=== PATIENT | female | born 1935 | race Caucasian/White ===

== ENCOUNTER 2016-10-10 16:56 | Inpatient (IN) | payer MEDICARE, MEDICAID ==
--- NOTE | 2016-10-10 17:14 | ER Document Report ---
ED General - General Stated Complaint: SHORTNESS OF BREATH Time seen by provider: 17:13 Mode of Arrival: Ambulatory Information source: Patient Notes: This is an 80-year-old female with multiple medical problems including acute respiratory failure (chronic trach), sepsis, pneumonia. The patient is brought in by EMS from home because of increased mucous secretions via the trach, dropping oxygen saturation, increased weakness, decreased responsiveness. TRAVEL OUTSIDE OF THE [place] IN LAST 30 DAYS: No - HPI Onset: Just prior to arrival Onset/Duration: Gradual Quality of pain: No pain Severity: None Pain Level: Denies Associated symptoms: Shortness of breath, Weakness. denies: Chills, Fever, Nausea Exacerbated by: Denies Relieved by: Denies Similar symptoms previously: Yes Recently seen / treated by doctor: Yes - Related Data Allergies/Adverse Reactions: alprazolam [From Xanax] Allergy (Verified 02/15/16 00:07) iodine [Iodine] Allergy (Verified 02/15/16 00:07) quetiapine fumarate [From Seroquel] Allergy (Verified 02/15/16 00:07) Past Medical History - General Information source: Patient - Social History Smoking Status: Former Smoker Cigarette use (# per day): No Chew tobacco use (# tins/day): No Smoking Education Provided: No Frequency of alcohol use: None Drug Abuse: None Lives with: Family Family History: Reviewed & Not Pertinent - Past Medical History Cardiac Medical History: Reports: Hx Congestive Heart Failure, Hx Hypercholesterolemia, Hx Hypertension, Hx Peripheral Vascular Disease Pulmonary Medical History: Reports: Hx COPD Endocrine Medical History: Reports: Hx Diabetes Mellitus Type 2 Psychiatric Medical History: Reports: Hx Dementia Past Surgical History: Reports: Hx Orthopedic Surgery - Shoulder. Right AKA. - Immunizations Hx Diphtheria, Pertussis, Tetanus Vaccination: Yes Review of Systems - Review of Systems Constitutional: denies: Chills, Fever EENT: No symptoms reported Cardiovascular: No symptoms reported Respiratory: See HPI Gastrointestinal: No symptoms reported Genitourinary: No symptoms reported Female Genitourinary: No symptoms reported Musculoskeletal: No symptoms reported Skin: No symptoms reported Hematologic/Lymphatic: No symptoms reported Neurological/Psychological: See HPI Physical Exam - Vital signs Vitals: Temp Pulse Resp BP Pulse Ox 98.1 F 104 H 16 146/65 H 92 10/10/16 17:09 10/10/16 17:09 10/10/16 17:09 10/10/16 17:09 10/10/16 17:09 Notes: Physical exam: GENERAL: 80-year-old female, alert and oriented 3, appears weak and dehydrated. HEAD: Atraumatic, normocephalic. EYES: Pupils equal round and reactive to light, extraocular movements intact, sclera anicteric, conjunctiva are normal. ENT: TMs normal, nares patent, oropharynx clear without exudates. Dry mucous membranes. NECK: Normal range of motion, supple without lymphadenopathy or JVD. LUNGS: Breath sounds clear to auscultation bilaterally and equal. No wheezes rales or rhonchi. HEART: Regular rate and rhythm without murmurs, rubs or gallops. ABDOMEN: Soft, nontender, normoactive bowel sounds. No guarding, no rebound. No masses appreciated. EXTREMITIES: Right [id number] amputation. No edema in the left lower extremity. NEUROLOGICAL: Cranial nerves II through XII grossly intact. Normal speech, normal gait. PSYCH: Normal mood, normal affect. SKIN: Warm, Dry, normal turgor, no rashes or lesions noted. Course - Vital Signs Vital signs: Temp Pulse Resp BP Pulse Ox 98.1 F 104 H 19 126/67 H 93 10/10/16 17:09 10/10/16 17:09 10/10/16 20:17 10/10/16 20:17 10/10/16 20:17 - Laboratory Result Diagrams: 10/10/16 18:54 10/10/16 18:54 Laboratory results interpreted by me: 10/10/16 10/10/16 18:54 18:54 WBC 11.1 H RDW 15.1 H Eosinophils % 6.3 H Absolute Eosinophils 0.7 H Sodium 146.4 H Chloride 108 H BUN 66 H Est GFR (Non-Af Amer) 52 L Glucose 228 H Calcium 11.2 H AST 54 H Alkaline Phosphatase 135 H Creatine Kinase < 20 L Total Protein 8.6 H - Diagnostic Test Radiology reviewed: Image reviewed, Reports reviewed - No obvious infiltrates - EKG Interpretation by Me Rate: Normal Rhythm: NSR - EKG shows normal sinus rhythm with a ventricular rate of 91, nonspecific ST-T wave changes. Discharge - Discharge Clinical Impression: acute renal failure, dehydration, dyspnea Condition: Stable Disposition: ADMITTED OBSERVATION Admitting Provider: [facility] covering Unit Admitted: Telemetry
[2016-10-10 19:03] LABS: ABSOLUTE BASOPHILS # (AUTO) 0.1 10^3/uL (0.0-0.2); ABSOLUTE EOSINOPHILS # (AUTO) 0.7 10^3/uL (0.0-0.6); ABSOLUTE LYMPHOCYTES (AUTO) 3.3 10^3/uL (0.5-4.7); ABSOLUTE MONOCYTES (AUTO) 1.2 10^3/uL (0.1-1.4); ABSOLUTE NEUT (AUTO) 5.7 10^3/uL (1.7-8.2); BASOPHILS % (AUTO) 1.3 % (0-2); EOSINOPHILS % (AUTO) 6.3 % (0-6); HEMATOCRIT 38.6 % (36.0-47.0); HEMOGLOBIN 12.5 g/dL (12.0-15.5); HGB HCT DIFFERENCE -1.1; LYMPHOCYTES % (AUTO) 29.9 % (13-45); MEAN CORPUSCULAR HGB CONC 32.2 g/dL (32.0-36.0); MEAN CORPUSCULAR VOLUME 93 fl (80-97); MONOCYTES % (AUTO) 11.1 % (3-13); RED BLOOD COUNT 4.16 10^6/uL (3.72-5.28); RED CELL DISTRIBUTION WIDTH 15.1 % (11.5-14.0); SEGMENTED NEUTROPHILS % (AUTO) 51.4 % (42-78); WHITE BLOOD COUNT 11.1 10^3/uL (4.0-10.5)
[2016-10-10 19:17] LABS: ALANINE AMINOTRANSFERASE 51 U/L (9-52); ALBUMIN 4.2 g/dL (3.5-5.0); ALKALINE PHOSPHATASE 135 U/L (38-126); ANION GAP 15 (5-19); ASPARTATE AMINO TRANSFERASE 54 U/L (14-36); BILIRUBIN,TOTAL 0.4 mg/dL (0.2-1.3); BLOOD UREA NITROGEN 66 mg/dL (7-20); CALCIUM 11.2 mg/dL (8.4-10.2); CARBON DIOXIDE 23 mmol/L (22-30); CHLORIDE 108 mmol/L (98-107); CREATININE RESULT 1.03 mg/dL (0.52-1.25); GLUCOSE 228 mg/dL (75-110); POTASSIUM 4.6 mmol/L (3.6-5.0); SODIUM 146.4 mmol/L (137-145); TOTAL PROTEIN 8.6 g/dL (6.3-8.2)
[2016-10-10 19:18] LABS: CREATINE KINASE < 20 U/L (30-135)
[2016-10-10 19:29] LABS: CREATINE KINASE MB 0.72 ng/mL (<4.55); TROPONIN I 0.012 ng/mL
[2016-10-10] MEDS ORDERED: NORMAL SALINE 1000 ML 1,000 ML IV PRN ×2 (20:15→23:49)
[2016-10-10 23:35] LABS: APPEARANCE,URINE SLIGHTLY-CLOUDY; BILIRUBIN,URINE NEGATIVE (NEGATIVE); GLUCOSE, URINE 150 mg/dL (NEGATIVE); KETONES,URINE NEGATIVE (NEGATIVE); LEUKOCYTE ESTERASE,URINE LARGE (NEGATIVE); NITRITE,URINE NEGATIVE (NEGATIVE); PROTEIN,URINE NEGATIVE (NEGATIVE); URINE SPECIFIC GRAVITY 1.012; UROBILINOGEN,URINE NEGATIVE mg/dL (<2.0)
[2016-10-11] MEDS ORDERED: IPRATROPIUM/ALBUTEROL 0.5-2.5 MG/3 ML AMPUL NEB ONE ×2 (05:08→05:36)
[2016-10-11] MEDS: IPRATROPIUM/ALBUTEROL 0.5-2.5 MG/3 ML AMPUL NEB SCH ×4 (07:59→20:27)
--- NOTE | 2016-10-11 08:23 | EKG REPORT ---
SEVERITY:- ABNORMAL ECG - SINUS RHYTHM FIRST DEGREE AV BLOCK NONSPECIFIC IVCD WITH LAD LEFT VENTRICULAR HYPERTROPHY : Confirmed by: Ethan Azar MD 11-Oct-2016 08:23:19
[2016-10-11] MEDS ORDERED: ASCORBIC ACID 500 MG TABLET PEG SCH (10:00)
[2016-10-11] MEDS ORDERED: LOSARTAN POTASSIUM 50 MG TABLET PEG SCH (10:00)
[2016-10-11] MEDS ORDERED: INSULIN DETEMIR 100 UNIT/ML 3 ML PEN SUBCUT SCH ×2 (10:00→22:00)
[2016-10-11] MEDS ORDERED: AMLODIPINE BESYLATE 10 MG TABLET PEG SCH (10:00)
[2016-10-11] MEDS ORDERED: MEMANTINE HCL 10 MG TABLET PEG SCH (10:00)
[2016-10-11 11:04] LABS: ABSOLUTE BASOPHILS # (AUTO) 0.1 10^3/uL (0.0-0.2); ABSOLUTE EOSINOPHILS # (AUTO) 0.2 10^3/uL (0.0-0.6); ABSOLUTE LYMPHOCYTES (AUTO) 1.9 10^3/uL (0.5-4.7); ABSOLUTE MONOCYTES (AUTO) 0.7 10^3/uL (0.1-1.4); ABSOLUTE NEUT (AUTO) 7.8 10^3/uL (1.7-8.2); BASOPHILS % (AUTO) 1.3 % (0-2); EOSINOPHILS % (AUTO) 2.1 % (0-6); HEMATOCRIT 36.9 % (36.0-47.0); HGB HCT DIFFERENCE -0.9; LYMPHOCYTES % (AUTO) 17.3 % (13-45); MEAN CORPUSCULAR HEMOGLOBIN 30.3 pg (27.0-33.4); MEAN CORPUSCULAR HGB CONC 32.5 g/dL (32.0-36.0); MEAN CORPUSCULAR VOLUME 93 fl (80-97); MONOCYTES % (AUTO) 6.9 % (3-13); RED BLOOD COUNT 3.95 10^6/uL (3.72-5.28); RED CELL DISTRIBUTION WIDTH 15.2 % (11.5-14.0); SEGMENTED NEUTROPHILS % (AUTO) 72.4 % (42-78); WHITE BLOOD COUNT 10.8 10^3/uL (4.0-10.5)
[2016-10-11 11:30] LABS: ANION GAP 16 (5-19); BLOOD UREA NITROGEN 58 mg/dL (7-20); CALCIUM 10.9 mg/dL (8.4-10.2); CARBON DIOXIDE 21 mmol/L (22-30); CHLORIDE 111 mmol/L (98-107); CREATININE RESULT 0.89 mg/dL (0.52-1.25); GLUCOSE 213 mg/dL (75-110); POTASSIUM 4.5 mmol/L (3.6-5.0); SODIUM 147.9 mmol/L (137-145)
--- NOTE | 2016-10-11 12:13 | Physician Advisory Note ---
Physician Advisor ProgressNote .: Pursuant to the [facility] for [facility], I have reviewed the medical record for this patient. Physician Advisor Statement: Possible documentation opportunities if attending agrees: 1.~ ? - "Acute on chronic respiratory failure, with chronic trach & acute hypoxemia down to 75% on RA on 16 AM with associated labored respirations & cyanosis of extremities" 2.~ "Acute hypernatremia, likely due to " [intravascular volume depletion? ] 3.~ "Acute Kidney Injury, likely due to [?ATN? Ac medullary necrosis? ...]" 4.~ "Acute [metab acidosis, or resp alkalosis?] due to ' As always, if concerned about any unstable VS or abnormal labs,~ please comment on them & note what doing about them, & ~ please document each day the potential clinical problems you are concerned could occur if pt not kept in hospital for tx at this time. Discussion:~ 80yo female w/ chronic co-morbidities including chronic resp failure requiring trach, dementia, chronic ___ type CHF, PVD, COPD, DM-2, Rt AKA ~- presented 1/15 PM to ED w/increased secretions via trach, decreasing O2 sats , increased weakness, decreased responsiveness, SOB. ED dr reported pt " appears weak & dehyd'd", w/dry mucosae. (+) HR 104, R19, initial O2 sat 93%, BP 126/67, WBC 11.1, Na 146.4, BUN 66, Cr 1.03, Bicarb 23, Ca 11.2, U/A w/lg LE. Attending ordered Status:~ Pt with acute resp decompensation this AM with severe hypoxemia after 1st MN of hospital care, with worsening hypernatremia, newly worsened bicarb, and requiring emergent trach change by surgeon, suctioning, O2 administration. She remains tachycardic w/RR 16-24. She is not stabilized sufficiently for safe d/ c home today. Tx in inpatient hospital setting medically reasonable & necessary to protect pt' s health, safety, & medical condition. Appropriate to change to Inpt status. Thanks for your help with documentation accuracy/specificity improvement! Alma Palacios MD [facility] Physician Advisor, Fellow of Hospital Medicine
[2016-10-11] MEDS ORDERED: IPRATROPIUM/ALBUTEROL 0.5-2.5 MG/3 ML AMPUL NEB PRN (16:01)
[2016-10-11] MEDS ORDERED: MEMANTINE HCL 10 MG TABLET PO SCH (16:15)
[2016-10-11] MEDS ORDERED: ATORVASTATIN CALCIUM 10 MG TABLET PO SCH ×2 (16:15→22:00)
[2016-10-11] MEDS ORDERED: ASCORBIC ACID 500 MG TABLET PO SCH (16:15)
[2016-10-11] MEDS ORDERED: SENNOSIDES/DOCUSATE 8.6-50 MG 1 EACH TABLET PO SCH (16:15)
--- NOTE | 2016-10-11 16:24 | PDOC H&P ---
History of Present Illness Admission Date/PCP: 10/11/16 13:00 BAKARI BECKER, History of Present Illness: BRIANA BRADY is a 80 year old female female with tracheostomy, she was transferred from home because of dysfunction of the tracheostomy tube. Family said the oxygen saturation was low on pulse oximetry, the home health nurse advised that patient needed to be transferred to the emergency room because of a low SaO2. In the emergency room when she arrived the trach was full of secretion, she was suctioned emergency room to clear off the debris in the tracheostomy tube and it was changed by the bedside this morning by the surgeon. There is also concern that she may have UTI, patient had previous prolonged hospitalization for sepsis related condition that required mechanical ventilation and a PEG tube insertion for feeding purposes, the family wants to find out if patient could now eats by mouth ,we, tget speech therapy for evaluation to advise on the safety of by mouth feeds rather than to tube feed the lab data was reviewed and nausea and acute kidney injury on the basis of the blood work, the ED physician indicated that patient needed to be admitted because of acute kidney injury, clearly the criteria for diagnosing acute kidney injury cannot be on the basis of serum creatinine may be is on the basis of urine output. I do not know, but it seems to me that she does not have acute kidney injury Past Medical History Cardiac Medical History: Reports: Hyperlipidema, Hypertension Pulmonary Medical History: Reports: Chronic Obstructive Pulmonary Disease (COPD) Endocrine Medical History: Reports: Diabetes Mellitus Type 2 Psychiatric Medical History: Reports: Dementia Past Surgical History Past Surgical History: Reports: Orthopedic Surgery - Shoulder. Right AKA. Social History Lives with: Family Smoking Status: Never Smoker Frequency of Alcohol Use: None Hx Recreational Drug Use: No Drugs: None Hx Prescription Drug Abuse: No - Advance Directive Resuscitation Status: Do Not Resuscitate Family History Family History: Reviewed & Not Pertinent Parental Family History Reviewed: Yes Children Family History Reviewed: Yes Sibling(s) Family History Reviewed.: Yes Medication/Allergy Home Medications: Amlodipine Besylate [Norvasc 10 mg Tablet] 10 mg PO DAILY 10/11/16 Ascorbic Acid [Vitamin C 500 mg Tablet] 500 mg PO DAILY 10/11/16 Atorvastatin Calcium [Lipitor 10 mg Tablet] 10 mg PO DAILY 10/11/16 Gabapentin [Neurontin 100 mg Capsule] 200 mg PO DAILY 10/11/16 Insulin Detemir [Levemir Insulin 300 Units/3 ml Insuln.pen] 5 unit SUBCUT QHS Ipratropium/Albuterol Sulfate [Duoneb 3 ml Ampul] 3 ml NEB RTQIDP PRN 10/11/16 Losartan Potassium [Cozaar 100 mg Tablet] 100 mg PO DAILY 10/11/16 Memantine HCl [Namenda 10 mg Tablet] 10 mg PO DAILY 10/11/16 Sennosides/Docusate 8.6-50 mg [Senna Plus Tablet] 1 tab PO DAILY 10/11/16 Allergies/Adverse Reactions: alprazolam [From Xanax] Allergy (Verified 02/15/16 00:07) iodine [Iodine] Allergy (Verified 02/15/16 00:07) quetiapine fumarate [From Seroquel] Allergy (Verified 02/15/16 00:07) Review of Systems Constitutional: ABSENT: as per HPI, anorexia, chills, fatigue, fever(s), headache(s), night sweats, weakness, weight gain, weight loss, other Cardiovascular: ABSENT: as per HPI, chest pain, dyspnea on exertion, edema, orthropnea, palpitations, other Respiratory: PRESENT: other - Increased secretion from tracheostomy tube Gastrointestinal: ABSENT: as per HPI, abdominal pain, bloating, coffee ground emesis, constipation, diarrhea, dysphagia, heartburn, hematemesis, hematochezia , melena, nausea, vomiting, other Neurological: ABSENT: as per HPI, abnormal gait, abnormal movements, abnormal speech, confusion, convulsions, dizziness, focal weakness, frequent falls, lack of coordination, memory loss, numbness, paresthesias, restless legs, syncope, tingling, tremor(s), vertigo, weakness, other Endocrine: ABSENT: as per HPI, cold intolerance, flushing, heat intolerance, menstrual abnormalities, polydipsia, polyphagia, polyuria, other Physical Exam Vital Signs: Temp Pulse Resp BP Pulse Ox 97.7 F 83 18 130/64 H 93 10/11/16 08:00 10/11/16 14:00 10/11/16 11:29 10/11/16 08:00 10/11/16 11:29 General appearance: PRESENT: no acute distress Eye exam: PRESENT: PERRLA Mouth exam: PRESENT: moist Neck exam: PRESENT: tracheostomy Respiratory exam: PRESENT: clear to auscultation monica Cardiovascular exam: PRESENT: +S1, +S2 GI/Abdominal exam: PRESENT: soft - There is a PEG tube in place Extremities exam: PRESENT: right AKA Neurological exam: PRESENT: alert, CN II-XII grossly intact Results Impressions: Chest X-Ray 10/10/16 17:14 IMPRESSION: 1. Right hemidiaphragm elevation. No focal consolidation or large pleural effusion evident. 2. Interval placement of a tracheostomy sheath without evidence of complication. 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
[2016-10-11] MEDS ORDERED: AMLODIPINE BESYLATE 10 MG TABLET PO SCH (17:00)
--- NOTE | 2016-10-11 17:18 | PDOC DISCHARGE SUMMARY ---
General - Admit/Disc Date/PCP Admission Date/Primary Care Provider: 10/11/16 13:00 BAKARI BECKER, Discharge Date: 10/12/16 - Discharge Diagnosis (2) Type 2 diabetes mellitus Is this a current diagnosis for this admission?: Yes (3) Hypertension Is this a current diagnosis for this admission?: Yes - Additional Information Resuscitation Status: Do Not Resuscitate Discharge Diet: Tube Feeding (Comments) Discharge Activity: Activity As Tolerated Home Medications: Amlodipine Besylate [Norvasc 10 mg Tablet] 10 mg PO DAILY 10/11/16 Ascorbic Acid [Vitamin C 500 mg Tablet] 500 mg PO DAILY 10/11/16 Atorvastatin Calcium [Lipitor 10 mg Tablet] 10 mg PO DAILY 10/11/16 Gabapentin [Neurontin 100 mg Capsule] 200 mg PO DAILY 10/11/16 Insulin Detemir [Levemir Insulin 100 units/mL] 5 unit SUBCUT QHS 10/11/16 Ipratropium/Albuterol Sulfate [Duoneb 3 ml Ampul] 3 ml NEB RTQIDP PRN 10/11/16 Losartan Potassium [Cozaar 100 mg Tablet] 100 mg PO DAILY 10/11/16 Memantine HCl [Namenda 10 mg Tablet] 10 mg PO DAILY 10/11/16 Sennosides/Docusate 8.6-50 mg [Senna Plus Tablet] 1 tab PO DAILY 10/11/16 History of Present Illness History of Present Illness: BRIANA BRADY is a 80 year old female female with tracheostomy, she was transferred from home because of dysfunction of the tracheostomy tube. Family said the oxygen saturation was low on pulse oximetry, the home health nurse advised that patient needed to be transferred to the emergency room because of a low SaO2. In the emergency room when she arrived the trach was full of secretion, she was suctioned emergency room to clear off the debris in the tracheostomy tube and it was changed by the bedside this morning by the surgeon. There is also concern that she may have UTI, patient had previous prolonged hospitalization for sepsis related condition that required mechanical ventilation and a PEG tube insertion for feeding purposes, the family wants to find out if patient could now eats by mouth ,we, tget speech therapy for evaluation to advise on the safety of by mouth feeds rather than to tube feed the lab data was reviewed and nausea and acute kidney injury on the basis of the blood work, the ED physician indicated that patient needed to be admitted because of acute kidney injury, clearly the criteria for diagnosing acute kidney injury cannot be on the basis of serum creatinine may be is on the basis of urine output. I do not know, but it seems to me that she does not have acute kidney injury Hospital Course Hospital Course: Patient was admitted because of dysfunction of tracheostomy, she was seen by the surgeon and this was changed, she was also seen by the nutrition and speech Physical Exam Vital Signs: Temp Pulse Resp BP Pulse Ox 97.4 F 80 18 118/50 L 100 10/11/16 16:00 10/11/16 16:00 10/11/16 16:00 10/11/16 16:00 10/11/16 16:00 General appearance: PRESENT: no acute distress Eye exam: PRESENT: PERRLA Respiratory exam: PRESENT: clear to auscultation monica Cardiovascular exam: PRESENT: +S1, +S2 Results Impressions: Chest X-Ray 10/10/16 17:14 IMPRESSION: 1. Right hemidiaphragm elevation. No focal consolidation or large pleural effusion evident. 2. Interval placement of a tracheostomy sheath without evidence of complication.
[2016-10-11 17:59] LABS: HEMATOCRIT 35.9 % (36.0-47.0); HEMOGLOBIN 11.6 g/dL (12.0-15.5); HGB HCT DIFFERENCE -1.1; MEAN CORPUSCULAR HEMOGLOBIN 30.1 pg (27.0-33.4); MEAN CORPUSCULAR HGB CONC 32.3 g/dL (32.0-36.0); MEAN CORPUSCULAR VOLUME 93 fl (80-97); RED BLOOD COUNT 3.86 10^6/uL (3.72-5.28); RED CELL DISTRIBUTION WIDTH 15.1 % (11.5-14.0); WHITE BLOOD COUNT 11.2 10^3/uL (4.0-10.5)
[2016-10-11] MEDS ORDERED: ENOXAPARIN SODIUM INJ 40 MG/0.4 ML DISP.SYRIN SUBCUT ONE (18:00)
[2016-10-11 18:04] LABS: PARTIAL THROMBOPLASTIN TIME 25.6 SEC (23.5-35.8); PROTHROMBIN TIME 14.1 SEC (11.4-15.4)
[2016-10-11 18:13] LABS: CREATININE RESULT 0.86 mg/dL (0.52-1.25)
[2016-10-11] MEDS: GABAPENTIN 100 MG CAPSULE PO SCH (18:26)
[2016-10-12] MEDS ORDERED: ENOXAPARIN SODIUM INJ 40 MG/0.4 ML DISP.SYRIN SUBCUT SCH (08:00)
[2016-10-12] MEDS: IPRATROPIUM/ALBUTEROL 0.5-2.5 MG/3 ML AMPUL NEB SCH ×4 (08:12→20:34)
[2016-10-12] MEDS ORDERED: ASCORBIC ACID 500 MG TABLET PO SCH (10:00)
[2016-10-12] MEDS ORDERED: AMLODIPINE BESYLATE 10 MG TABLET PO SCH (10:00)
[2016-10-12] MEDS ORDERED: SENNOSIDES/DOCUSATE 8.6-50 MG 1 EACH TABLET PO SCH (10:00)
[2016-10-12] MEDS ORDERED: LOSARTAN POTASSIUM 50 MG TABLET PO SCH (10:00)
[2016-10-12] MEDS ORDERED: MEMANTINE HCL 10 MG TABLET PO SCH (10:00)
[2016-10-12 16:13] VITALS: BP 146/74
[2016-10-12] MEDS: GABAPENTIN 100 MG CAPSULE PO SCH (17:41)
== END 2016-10-12 21:10 | disposition home health service (06) | DRG 206 ==
LOC: ER 16:56 → EH 21:08 → 4S 10-11 01:06 → OBSVTOIN 10-11 13:00
PROVIDERS: ADMIT Internal Medicine; ATTEND Internal Medicine
PROC: 0B21XFZ Change Tracheostomy Device in Trachea, External Approach (ICD-10-PCS; principal; 2016-10-11)
DX: J95.03 Malfunction of tracheostomy stoma (principal); E86.0 Dehydration; E11.42 Type 2 diabetes mellitus with diabetic polyneuropathy; E11.51 Type 2 diabetes mellitus with diabetic peripheral angiopathy without gangrene; E78.5 Hyperlipidemia, unspecified; I11.0 Hypertensive heart disease with heart failure; I50.9 Heart failure, unspecified; F03.90 Unspecified dementia, unspecified severity, without behavioral disturbance, psychotic disturbance, mood disturbance, and anxiety; J44.9 Chronic obstructive pulmonary disease, unspecified; Z66 Do not resuscitate; Y84.8 Other medical procedures as the cause of abnormal reaction of the patient, or of later complication, without mention of misadventure at the time of the procedure; Z79.899 Other long term (current) drug therapy; Z87.891 Personal history of nicotine dependence; Z89.611 Acquired absence of right leg above knee; Z93.1 Gastrostomy status; Z79.4 Long term (current) use of insulin; Z88.8 Allergy status to other drugs, medicaments and biological substances; Z99.81 Dependence on supplemental oxygen
CPT/HCPCS: 36415; 51702; 71010; 80048; 80053; 81001; 82550; 82553; 82565; 82962; 84484; 85025; 85027; 85610; 85730; 93005; 93010; 94640; 99285; G0378; G8996-GN; G8997-GN; G8998-GN; J1650; J1815; J7030; J7620

== ENCOUNTER 2016-12-09 10:06 | Inpatient (IN) | payer MEDICARE, MEDICAID ==
--- NOTE | 2016-12-09 10:24 | ER Document Report ---
ED Respiratory Problem - General Chief Complaint: Shortness Of Breath Stated Complaint: RESPIRATORY PROBLEM Notes: The patient is an 81-year-old female, past medical history COPD, respiratory failure on 5 L humidified air through trach, dementia, presents with increasing sputum out of her trach, shortness of breath and hypoxia down to 74% on her usual oxygen requirements. She has a PEG tube, but denies any recent aspiration. Denies chest pain, leg swelling, nausea, vomiting, fevers or back pain. TRAVEL OUTSIDE OF THE [place] IN LAST 30 DAYS: No - Related Data Allergies/Adverse Reactions: alprazolam [From Xanax] Allergy (Verified 02/15/16 00:07) iodine [Iodine] Allergy (Verified 02/15/16 00:07) quetiapine fumarate [From Seroquel] Allergy (Verified 02/15/16 00:07) Past Medical History - General Information source: Relative, Emergency Med Personnel - Social History Smoking Status: Unknown if Ever Smoked Family History: Reviewed & Not Pertinent - Past Medical History Cardiac Medical History: Reports: Hx Congestive Heart Failure, Hx Hypercholesterolemia, Hx Hypertension, Hx Peripheral Vascular Disease Pulmonary Medical History: Reports: Hx COPD Endocrine Medical History: Reports: Hx Diabetes Mellitus Type 2 Psychiatric Medical History: Reports: Hx Dementia Past Surgical History: Reports: Hx Orthopedic Surgery - Shoulder. Right AKA. - Immunizations Hx Diphtheria, Pertussis, Tetanus Vaccination: Yes Review of Systems - Review of Systems Notes: REVIEW OF SYSTEMS: CONSTITUTIONAL: -fevers, -chills EENT: -eye pain, -difficulty swallowing, -nasal congestion CARDIOVASCULAR:-chest pain, -syncope. RESPIRATORY: +cough, +SOB GASTROINTESTINAL: -abdominal pain, - nausea, -vomiting, -diarrhea GENITOURINARY: -dysuria, -hematuria MUSCULOSKELETAL: -back pain, -neck pain SKIN: -rash or skin lesions. HEMATOLOGIC: -easy bruising or bleeding. LYMPHATIC: -swollen, enlarged glands. NEUROLOGICAL: -altered mental status or loss of consciousness, -headache, - neurologic symptoms PSYCHIATRIC: -anxiety, -depression. ALL OTHER SYSTEMS REVIEWED AND NEGATIVE. Physical Exam - Vital signs Vitals: Resp 24 H 12/09/16 10:06 - Notes Notes: PHYSICAL EXAMINATION: GENERAL: Well-appearing, well-nourished and in no acute distress. HEAD: Atraumatic, normocephalic. EYES: Pupils equal round and reactive to light, extraocular movements intact, sclera anicteric, conjunctiva are normal. ENT: nares patent, oropharynx clear without exudates. Moist mucous membranes. NECK: Normal range of motion, supple without lymphadenopathy LUNGS: Trach in place with green sputum, coarse bilateral breath sounds, crackles in right lower lobe, no respiratory distress. HEART: Tachycardic without murmurs ABDOMEN: G-tube in place, Soft, nontender, normoactive bowel sounds. No guarding, no rebound. No masses appreciated. EXTREMITIES: Normal range of motion, no pitting or edema. No cyanosis. NEUROLOGICAL: Cranial nerves grossly intact. Normal sensory and motor. SKIN: Warm, Dry, normal turgor, no rashes or lesions noted. Course - Re-evaluation Re-evalutation: 12/09/16 13:51 on arrival, patient is satting 86% on 100% oxygen through trach collar. Has green sputum and suctioned with improvement of her oxygenation to 92%. With the coarse breath sounds and wheezing, DuoNeb and Solu-Medrol started with increased wheezing. Chest x-ray does not show pneumonia, but with tachycardia, tachypnea and leukocytosis, will begin CAP antibiotics. She does have an elevated lactate to 3.0, but does not require 30 mL/kg because her blood pressure is normal and lactate is less than 4. Spoke to Dr. Christensen and he has accepted patient as Inpatient to [facility]. - Vital Signs Vital signs: Temp Pulse Resp BP Pulse Ox 98.4 F 107 H 24 H 123/72 87 L 12/09/16 10:10 12/09/16 10:10 12/09/16 10:10 12/09/16 10:10 12/09/16 10:10 - Laboratory Result Diagrams: 12/09/16 10:25 12/09/16 10:25 Laboratory results interpreted by me: 12/09/16 12/09/16 12/09/16 10:25 10:25 10:25 WBC 12.4 H RDW 14.7 H Absolute Neutrophils 8.3 H BUN 60 H Glucose 229 H Lactic Acid Calcium 11.7 H NT-Pro-B Natriuret Pep 733 H 12/09/16 10:25 WBC RDW Absolute Neutrophils BUN Glucose Lactic Acid 3.0 H Calcium NT-Pro-B Natriuret Pep - Diagnostic Test Radiology reviewed: Image reviewed, Reports reviewed Radiology results interpreted by me: CXR: NAD Critical Care Note - Critical Care Note Total time excluding time spent on procedures (mins): 35 Discharge - Discharge Clinical Impression: Hypoxia, COPD exacerbation Sepsis Qualifiers: Sepsis type: sepsis due to unspecified organism Qualified Code(s): A41.9 - Sepsis, unspecified organism Condition: Stable Disposition: ADMITTED INPATIENT Admitting Provider: [facility] Unit Admitted: [facility]
[2016-12-09 10:45] LABS: ABSOLUTE BASOPHILS # (AUTO) 0.1 10^3/uL (0.0-0.2); ABSOLUTE EOSINOPHILS # (AUTO) 0.4 10^3/uL (0.0-0.6); ABSOLUTE LYMPHOCYTES (AUTO) 2.8 10^3/uL (0.5-4.7); ABSOLUTE MONOCYTES (AUTO) 0.8 10^3/uL (0.1-1.4); ABSOLUTE NEUT (AUTO) 8.3 10^3/uL (1.7-8.2); BASOPHILS % (AUTO) 0.7 % (0-2); EOSINOPHILS % (AUTO) 3.3 % (0-6); HEMATOCRIT 42.1 % (36.0-47.0); HEMOGLOBIN 13.6 g/dL (12.0-15.5); HGB HCT DIFFERENCE -1.3; LYMPHOCYTES % (AUTO) 22.3 % (13-45); MEAN CORPUSCULAR HEMOGLOBIN 28.6 pg (27.0-33.4); MEAN CORPUSCULAR HGB CONC 32.3 g/dL (32.0-36.0); MEAN CORPUSCULAR VOLUME 89 fl (80-97); MONOCYTES % (AUTO) 6.7 % (3-13); RED BLOOD COUNT 4.74 10^6/uL (3.72-5.28); RED CELL DISTRIBUTION WIDTH 14.7 % (11.5-14.0); WHITE BLOOD COUNT 12.4 10^3/uL (4.0-10.5)
[2016-12-09] MEDS ORDERED: IPRATROPIUM/ALBUTEROL 0.5-2.5 MG/3 ML AMPUL NEB ONE (10:45)
[2016-12-09] MEDS ORDERED: METHYLPREDNISOLONE INJ 125 MG/2 ML SDV IV ONE (10:45)
[2016-12-09 11:04] LABS: ANION GAP 15 (5-19); BLOOD UREA NITROGEN 60 mg/dL (7-20); CALCIUM 11.7 mg/dL (8.4-10.2); CARBON DIOXIDE 22 mmol/L (22-30); CHLORIDE 107 mmol/L (98-107); CREATINE KINASE 31 U/L (30-135); CREATININE RESULT 0.86 mg/dL (0.52-1.25); GLUCOSE 229 mg/dL (75-110); POTASSIUM 4.9 mmol/L (3.6-5.0); SODIUM 143.8 mmol/L (137-145)
[2016-12-09] MEDS ORDERED: CEFTRIAXONE INJ 1000 MG VIAL IV ONE (11:07)
[2016-12-09] MEDS ORDERED: AZITHROMYCIN INJ 500 MG VIAL IV ONE (11:07)
[2016-12-09] MEDS ORDERED: NORMAL SALINE 1000 ML 1,000 ML IV ONE (11:08)
[2016-12-09 11:23] LABS: TROPONIN I < 0.012 ng/mL
--- NOTE | 2016-12-09 11:25 | EKG REPORT ---
SEVERITY:- ABNORMAL ECG - SINUS RHYTHM NONSPECIFIC IVCD WITH LAD LVH WITH SECONDARY REPOLARIZATION ABNORMALITY ANTERIOR Q WAVES, POSSIBLY DUE TO LVH : Confirmed by: Mirella Marrero 09-Dec-2016 11:24:58
[2016-12-09] MEDS ORDERED: ONDANSETRON HCL INJ/PF 4 MG/2 ML SDV IV ONE (14:41)
[2016-12-09] MEDS ORDERED: (PENDING PHARMACY ID) (Multivitamin [Multivitamins] 1 CAP) PEG SCH (19:15)
[2016-12-09] MEDS ORDERED: (PENDING PHARMACY ID) (Sennosides [Senna] 17.2 MG) PEG SCH (19:15)
[2016-12-09] MEDS ORDERED: GLUCAGON,HUMAN RECOMB 1 MG INJ IM PRN (19:16)
[2016-12-09] MEDS ORDERED: DEXTROSE 40% GEL 15 GM TUBE PO PRN ×2 (19:16)
[2016-12-09] MEDS ORDERED: DEXTROSE 50%-WATER 25 GM/50 ML DISP.SYRIN IV PRN ×2 (19:16)
[2016-12-09] MEDS ORDERED: IPRATROPIUM/ALBUTEROL 0.5-2.5 MG/3 ML AMPUL NEB PRN (19:17)
[2016-12-09] MEDS ORDERED: AMLODIPINE BESYLATE 10 MG TABLET PEG ONE (20:00)
[2016-12-09] MEDS ORDERED: ASCORBIC ACID 500 MG TABLET PEG ONE (20:00)
[2016-12-09 20:11] LABS: HEMATOCRIT 38.3 % (36.0-47.0); HEMOGLOBIN 12.6 g/dL (12.0-15.5); HGB HCT DIFFERENCE -0.5; MEAN CORPUSCULAR HEMOGLOBIN 29.1 pg (27.0-33.4); MEAN CORPUSCULAR HGB CONC 32.9 g/dL (32.0-36.0); MEAN CORPUSCULAR VOLUME 89 fl (80-97); PROTHROMBIN TIME 13.8 SEC (11.4-15.4); RED BLOOD COUNT 4.32 10^6/uL (3.72-5.28); RED CELL DISTRIBUTION WIDTH 14.8 % (11.5-14.0); WHITE BLOOD COUNT 9.9 10^3/uL (4.0-10.5)
[2016-12-09 20:12] LABS: PARTIAL THROMBOPLASTIN TIME 27.9 SEC (23.5-35.8)
[2016-12-09] MEDS: IPRATROPIUM/ALBUTEROL 0.5-2.5 MG/3 ML AMPUL NEB SCH (20:31)
[2016-12-09] MEDS ORDERED: MULTIVITAMIN TABLET PO ONE (20:45)
[2016-12-09] MEDS ORDERED: INSULIN DETEMIR 100 UNIT/ML 3 ML PEN SUBCUT ONE (20:45)
[2016-12-09] MEDS ORDERED: LOSARTAN POTASSIUM 50 MG TABLET PEG ONE (20:45)
[2016-12-09] MEDS ORDERED: LEVOFLOXACIN 750 MG/D5W RTU 750 MG/150 ML RTUPB IV ONE (22:53)
[2016-12-09] MEDS: INSULIN LISPRO 100 UNIT/ML 3 ML VIAL SUBCUT PRN (23:02)
[2016-12-09] MEDS: CEFTRIAXONE 1 GM/D5W RTU 1 GM/50 ML RTUPB IV SCH (23:04)
[2016-12-09] MEDS: GABAPENTIN 100 MG CAPSULE PEG SCH (23:05)
[2016-12-09] MEDS: LEVOFLOXACIN 750 MG/D5W RTU 750 MG/150 ML RTUPB IV SCH (23:05)
[2016-12-09] MEDS: ATORVASTATIN CALCIUM 10 MG TABLET PEG SCH (23:05)
[2016-12-10] MEDS: IPRATROPIUM/ALBUTEROL 0.5-2.5 MG/3 ML AMPUL NEB SCH ×3 (08:57→20:57)
[2016-12-10] MEDS: MULTIVITAMIN TABLET PO SCH (10:37)
[2016-12-10] MEDS: MEMANTINE HCL 10 MG TABLET PEG SCH (10:40)
[2016-12-10] MEDS: LOSARTAN POTASSIUM 50 MG TABLET PEG SCH (10:40)
[2016-12-10] MEDS: ENOXAPARIN SODIUM INJ 40 MG/0.4 ML DISP.SYRIN SUBCUT SCH (10:42)
[2016-12-10] MEDS: INSULIN DETEMIR 100 UNIT/ML 3 ML PEN SUBCUT SCH (10:44)
[2016-12-10] MEDS: ASCORBIC ACID 500 MG TABLET PEG SCH (10:45)
[2016-12-10] MEDS: AMLODIPINE BESYLATE 10 MG TABLET PEG SCH (10:46)
[2016-12-10] MEDS: INSULIN LISPRO 100 UNIT/ML 3 ML VIAL SUBCUT PRN ×2 (17:47→22:08)
--- NOTE | 2016-12-10 18:19 | PDOC H&P ---
History of Present Illness Admission Date/PCP: 12/09/16 17:42 BAKARI BECKER MD History of Present Illness: BRIANA BRADY is a 81 year old female, she has multiple comorbid conditions she had episode of shortness of breath the home health nurse called the office to advise us that the oxygen saturation was in the low 70s and she was concerned because despite administering oxygen the pulse oximetry remains low, she called rescue squad and she was transferred to the emergency room in the emergency room when she arrived she was evaluated, the oxygen saturation was 86% on FiO2 100% through trach collar the trach collar was suctioned and yellowish to greenish secretion was suctioned out of the trach collar, she was also said to be wheezing the emergency room and she was giving Solu-Medrol and bronchodilators DuoNeb, chest x-ray that was done did not show any acute infiltrates, the hemogram showed leukocytosis and his serum lactate was 3, the ED physician thought she had pneumonia though chest x-ray was negative for any infiltrates,He felt is probably EARLY pneumonia and is not apparent on chest x- ray yet. She has multiple comorbid conditions including PAD status post amputation of the the right leg, right AKA Past Medical History Cardiac Medical History: Reports: Hyperlipidema, Hypertension, Peripheral Vascular Disease Pulmonary Medical History: Reports: Chronic Obstructive Pulmonary Disease (COPD) Endocrine Medical History: Reports: Diabetes Mellitus Type 2 Psychiatric Medical History: Reports: Dementia Past Surgical History Past Surgical History: Reports: Orthopedic Surgery - Shoulder. Right AKA. Social History Smoking Status: Never Smoker Frequency of Alcohol Use: None Hx Recreational Drug Use: No Hx Prescription Drug Abuse: No - Advance Directive Resuscitation Status: Do Not Resuscitate Family History Family History: Reviewed & Not Pertinent Parental Family History Reviewed: Yes Children Family History Reviewed: Yes Sibling(s) Family History Reviewed.: Yes Medication/Allergy Home Medications: Amlodipine Besylate [Norvasc 10 mg Tablet] 10 mg PEG DAILY 12/09/16 Ascorbic Acid [Vitamin C 500 mg Tablet] 500 mg PEG DAILY 12/09/16 Atorvastatin Calcium [Lipitor 10 mg Tablet] 10 mg PEG DAILY 12/09/16 Gabapentin [Neurontin 100 mg Capsule] 200 mg PEG DAILY 12/09/16 Insulin Aspart [Novolog Flexpen] 0 units SQ .PERSLIDINGSCALE 12/09/16 Insulin Detemir [Levemir Insulin 100 units/mL] 5 units SQ DAILY 12/09/16 Ipratropium/Albuterol Sulfate [Duoneb 3 ml Ampul] 3 ml NEB RTTID 12/09/16 Losartan Potassium [Cozaar 100 mg Tablet] 100 mg PEG DAILY 12/09/16 Memantine HCl [Namenda 10 mg Tablet] 10 mg PEG DAILY 12/09/16 Multivitamin [Multivitamins] 1 cap PEG DAILY 12/09/16 Sennosides [Senna] 17.2 mg PEG DAILY 12/09/16 Allergies/Adverse Reactions: alprazolam [From Xanax] Allergy (Verified 02/15/16 00:07) iodine [Iodine] Allergy (Verified 02/15/16 00:07) quetiapine fumarate [From Seroquel] Allergy (Verified 02/15/16 00:07) Review of Systems Cardiovascular: ABSENT: as per HPI, chest pain, edema, palpitations, other Respiratory: PRESENT: cough, dyspnea, sputum Gastrointestinal: ABSENT: as per HPI, abdominal pain, bloating, coffee ground emesis, constipation, diarrhea, dysphagia, heartburn, hematemesis, hematochezia , melena, nausea, vomiting, other Neurological: ABSENT: as per HPI, abnormal gait, abnormal movements, abnormal speech, confusion, convulsions, dizziness, focal weakness, frequent falls, lack of coordination, memory loss, numbness, paresthesias, restless legs, syncope, tingling, tremor(s), vertigo, weakness, other Physical Exam Vital Signs: Temp Pulse Resp BP Pulse Ox 97.9 F 108 H 19 130/78 H 98 12/10/16 15:23 12/10/16 15:23 12/10/16 15:23 12/10/16 15:23 12/10/16 16:00 Intake & Output 12/09/16 12/10/16 12/11/16 06:59 06:59 06:59 Intake Total 1179 923 Balance 1179 923 General appearance: PRESENT: mild distress Eye exam: PRESENT: PERRLA Mouth exam: PRESENT: moist Neck exam: PRESENT: full ROM Respiratory exam: PRESENT: rhonchi Cardiovascular exam: PRESENT: +S1, +S2 GI/Abdominal exam: PRESENT: other - There is a PEG tube Extremities exam: PRESENT: right AKA Results Laboratory Results: 12/09/16 19:43 12/09/16 19:43 12/09/16 12/09/16 19:43 19:43 WBC 9.9 RBC 4.32 Hgb 12.6 Hct 38.3 MCV 89 MCH 29.1 MCHC 32.9 RDW 14.8 H Plt Count 349 Creatinine 0.80 Est GFR ( Amer) > 60 Est GFR (Non-Af Amer) > 60 Impressions: Chest X-Ray 12/09/16 10:23 IMPRESSION: No significant interval change. No acute findings. Other findings as noted above Assessment & Plan - Diagnosis (1) Community acquired pneumonia Is this a current diagnosis for this admission?: YesPlan: She probably have pneumonia though chest x-ray is negative for infiltrate or consolidation but the constellation of fever, hypoxemia and leukocytosis and colored secretions from trach collar suggest infection etiology probably pneumonia she will be empirically treated for community acquired pneumonia (2) Hypoxemia Is this a current diagnosis for this admission?: Yes
[2016-12-10] MEDS: LEVOFLOXACIN 750 MG/D5W RTU 750 MG/150 ML RTUPB IV SCH (20:34)
[2016-12-10] MEDS: CEFTRIAXONE 1 GM/D5W RTU 1 GM/50 ML RTUPB IV SCH (22:06)
[2016-12-10] MEDS: ATORVASTATIN CALCIUM 10 MG TABLET PEG SCH (22:07)
[2016-12-10] MEDS: GABAPENTIN 100 MG CAPSULE PEG SCH (22:08)
[2016-12-11] MEDS: IPRATROPIUM/ALBUTEROL 0.5-2.5 MG/3 ML AMPUL NEB SCH ×3 (09:00→20:04)
[2016-12-11] MEDS: ASCORBIC ACID 500 MG TABLET PEG SCH (11:46)
[2016-12-11] MEDS: MULTIVITAMIN TABLET PO SCH (11:46)
[2016-12-11] MEDS: MEMANTINE HCL 10 MG TABLET PEG SCH (11:47)
[2016-12-11] MEDS: AMLODIPINE BESYLATE 10 MG TABLET PEG SCH (11:47)
[2016-12-11] MEDS: SENNOSIDES/DOCUSATE 8.6-50 MG 1 EACH TABLET PEG SCH (11:47)
[2016-12-11] MEDS: LOSARTAN POTASSIUM 50 MG TABLET PEG SCH (11:48)
[2016-12-11] MEDS: ENOXAPARIN SODIUM INJ 40 MG/0.4 ML DISP.SYRIN SUBCUT SCH (11:49)
[2016-12-11] MEDS: INSULIN DETEMIR 100 UNIT/ML 3 ML PEN SUBCUT SCH (11:51)
[2016-12-11] MEDS ORDERED: ONDANSETRON HCL INJ/PF 4 MG/2 ML SDV ONE (13:42)
[2016-12-11] MEDS ORDERED: ONDANSETRON HCL INJ/PF 4 MG/2 ML SDV IV PRN (14:06)
[2016-12-11] MEDS ORDERED: ACETAMINOPHEN 325 MG TABLET PEG PRN (14:06)
[2016-12-11] MEDS ORDERED: GABAPENTIN 100 MG CAPSULE PEG ONE ×2 (15:00→18:00)
[2016-12-11] MEDS ORDERED: ATORVASTATIN CALCIUM 10 MG TABLET PEG ONE ×2 (15:00→18:00)
--- NOTE | 2016-12-11 17:15 | PDOC PROGRESS REPORT ---
Subjective Progress Note for:: 12/10/16 Subjective:: She was seen by the bedside, she has pustules on the dorsum of the right . She was admitted for pneumonia the white cell count is normalized on the IV antibiotic, the chest x-ray is negative for acute infiltrate. I am not totally convinced she has pneumonia, she probably did secretions that clogged the tracheostomy tube leading to hypoxemia and the secretion was infected, she probably have infected tracheostomy tube Physical Exam Vital Signs: Temp Pulse Resp BP Pulse Ox 97.9 F 108 H 19 130/78 H 98 12/10/16 15:23 12/10/16 15:23 12/10/16 15:23 12/10/16 15:23 12/10/16 16:00 Intake & Output 12/09/16 12/10/16 12/11/16 06:59 06:59 06:59 Intake Total 1179 923 Balance 1179 923 General appearance: PRESENT: no acute distress Eye exam: PRESENT: PERRLA Respiratory exam: PRESENT: clear to auscultation monica Cardiovascular exam: PRESENT: +S1, +S2 GI/Abdominal exam: PRESENT: soft Extremities exam: PRESENT: right AKA Neurological exam: PRESENT: alert Results Laboratory Results: 12/09/16 19:43 12/09/16 19:43 12/09/16 12/09/16 19:43 19:43 WBC 9.9 RBC 4.32 Hgb 12.6 Hct 38.3 MCV 89 MCH 29.1 MCHC 32.9 RDW 14.8 H Plt Count 349 Creatinine 0.80 Est GFR ( Amer) > 60 Est GFR (Non-Af Amer) > 60 Impressions: Chest X-Ray 12/09/16 10:23 IMPRESSION: No significant interval change. No acute findings. Other findings as noted above Assessment & Plan - Diagnosis (1) Community acquired pneumonia Is this a current diagnosis for this admission?: Yes (2) Hypoxemia Is this a current diagnosis for this admission?: Yes (3) Type 2 diabetes mellitus Qualifiers: Diabetes mellitus complication status: with neurologic complications Diabetes mellitus complication detail: with polyneuropathy Diabetes mellitus intermission coordinator insulin use: with intermission coordinator use Qualified Code(s): E11.42 - Type 2 diabetes mellitus with diabetic polyneuropathy; Z79.4 - penitentiary (current) use of insulin Is this a current diagnosis for this admission?: Yes (4) Dysphagia, pharyngeal phase Is this a current diagnosis for this admission?: Yes
--- NOTE | 2016-12-11 17:28 | PDOC DISCHARGE SUMMARY ---
General - Admit/Disc Date/PCP Admission Date/Primary Care Provider: 12/09/16 17:42 BAKARI BECKER MD Discharge Date: 12/11/16 - Discharge Diagnosis (1) Community acquired pneumonia Is this a current diagnosis for this admission?: Yes (2) Hypoxemia Is this a current diagnosis for this admission?: Yes (3) Type 2 diabetes mellitus Is this a current diagnosis for this admission?: Yes (4) Dysphagia, pharyngeal phase Is this a current diagnosis for this admission?: Yes - Additional Information Resuscitation Status: Do Not Resuscitate Home Medications: Amlodipine Besylate [Norvasc 10 mg Tablet] 10 mg PEG DAILY 12/09/16 Ascorbic Acid [Vitamin C 500 mg Tablet] 500 mg PEG DAILY 12/09/16 Atorvastatin Calcium [Lipitor 10 mg Tablet] 10 mg PEG DAILY 12/09/16 Gabapentin [Neurontin 100 mg Capsule] 200 mg PEG DAILY 12/09/16 Insulin Aspart [Novolog Flexpen] 0 units SQ .PERSLIDINGSCALE 12/09/16 Insulin Detemir [Levemir Insulin 100 units/mL] 5 units SQ DAILY 12/09/16 Ipratropium/Albuterol Sulfate [Duoneb 3 ml Ampul] 3 ml NEB RTTID 12/09/16 Losartan Potassium [Cozaar 100 mg Tablet] 100 mg PEG DAILY 12/09/16 Memantine HCl [Namenda 10 mg Tablet] 10 mg PEG DAILY 12/09/16 Multivitamin [Multivitamins] 1 cap PEG DAILY 12/09/16 Sennosides [Senna] 17.2 mg PEG DAILY 12/09/16 Levofloxacin [Levaquin 750 mg Tablet] 750 mg PO DAILY #5 tablet 12/11/16 History of Present Illness History of Present Illness: BRIANA BRADY is a 81 year old female, she has multiple comorbid conditions she had episode of shortness of breath the home health nurse called the office to advise us that the oxygen saturation was in the low 70s and she was concerned because despite administering oxygen the pulse oximetry remains low, she called rescue squad and she was transferred to the emergency room in the emergency room when she arrived she was evaluated, the oxygen saturation was 86% on FiO2 100% through trach collar the trach collar was suctioned and yellowish to greenish secretion was suctioned out of the trach collar, she was also said to be wheezing the emergency room and she was giving Solu-Medrol and bronchodilators DuoNeb, chest x-ray that was done did not show any acute infiltrates, the hemogram showed leukocytosis and his serum lactate was 3, the ED physician thought she had pneumonia though chest x-ray was negative for any infiltrates,He felt is probably EARLY pneumonia and is not apparent on chest x- ray yet. She has multiple comorbid conditions including PAD status post amputation of the the right leg, right AKA Hospital Course Hospital Course: Patient was admitted because of concern for pneumonia, she presented with hypoxemia and leukocytosis, the chest x-ray that was done in the emergency room was negative for any acute infiltrate to suggest pneumonia. She has a trach in place on the secretion from the trach that was suctioned looks infected, it is most likely that this secretion clogged the trach and that is what led to the hypoxemia and the leukocytosis is probably from the infection of the tracheal secretion. She was empirically treated with intravenous Levaquin and azithromycin with very good result. Patient is back to baseline and she is getting agitated normally she is less agitated when she is in familiar surroundings. The plan is to discharge her home to continue p.o. medication for few more days. We will arrange for outpatient speech evaluation to determine if she can eat orally presently she has PEG tube in place. Physical Exam Vital Signs: Temp Pulse Resp BP Pulse Ox 97.9 F 103 H 18 131/65 H 96 12/11/16 11:58 12/11/16 14:40 12/11/16 14:40 12/11/16 11:58 12/11/16 11:58 Intake & Output 12/10/16 12/11/16 12/12/16 06:59 06:59 06:59 Intake Total 1179 3563 570 Balance 1179 3563 570 Weight 66.6 kg General appearance: PRESENT: no acute distress Eye exam: PRESENT: PERRLA Neck exam: PRESENT: tracheostomy Respiratory exam: PRESENT: clear to auscultation monica Cardiovascular exam: PRESENT: +S1, +S2 GI/Abdominal exam: PRESENT: soft Neurological exam: PRESENT: alert Results Laboratory Results: 12/09/16 19:43 12/09/16 19:43 Impressions: Chest X-Ray 12/09/16 10:23 IMPRESSION: No significant interval change. No acute findings. Other findings as noted above
[2016-12-11] MEDS: LEVOFLOXACIN 750 MG/D5W RTU 750 MG/150 ML RTUPB IV SCH (19:41)
[2016-12-11] MEDS: CEFTRIAXONE 1 GM/D5W RTU 1 GM/50 ML RTUPB IV SCH (21:53)
[2016-12-11] MEDS: INSULIN LISPRO 100 UNIT/ML 3 ML VIAL SUBCUT PRN (21:54)
[2016-12-12] MEDS: IPRATROPIUM/ALBUTEROL 0.5-2.5 MG/3 ML AMPUL NEB SCH (08:37)
[2016-12-12 09:16] VITALS: BP 123/55
[2016-12-12] MEDS: ENOXAPARIN SODIUM INJ 40 MG/0.4 ML DISP.SYRIN SUBCUT SCH (09:21)
[2016-12-12] MEDS: MEMANTINE HCL 10 MG TABLET PEG SCH (09:42)
[2016-12-12] MEDS: LOSARTAN POTASSIUM 50 MG TABLET PEG SCH (09:42)
[2016-12-12] MEDS: MULTIVITAMIN TABLET PO SCH (09:43)
[2016-12-12] MEDS: AMLODIPINE BESYLATE 10 MG TABLET PEG SCH (09:43)
[2016-12-12] MEDS: ASCORBIC ACID 500 MG TABLET PEG SCH (09:43)
[2016-12-12] MEDS: INSULIN DETEMIR 100 UNIT/ML 3 ML PEN SUBCUT SCH (09:44)
[2016-12-12] MEDS: SENNOSIDES/DOCUSATE 8.6-50 MG 1 EACH TABLET PEG SCH (09:45)
[2016-12-12] MEDS ORDERED: GABAPENTIN 100 MG CAPSULE PEG SCH (10:00)
[2016-12-12] MEDS ORDERED: ATORVASTATIN CALCIUM 10 MG TABLET PEG SCH (10:00)
== END 2016-12-12 10:49 | disposition home health service (06) | DRG 194 ==
LOC: ER 10:06 → EH 14:01 → UNDOADMIN 14:01 → 3S 16:42 → EH 16:42 → 3S 17:42
PROVIDERS: ADMIT Internal Medicine; ATTEND Internal Medicine
DX: J18.9 Pneumonia, unspecified organism (principal); J95.03 Malfunction of tracheostomy stoma; R09.02 Hypoxemia; L08.9 Local infection of the skin and subcutaneous tissue, unspecified; R13.13 Dysphagia, pharyngeal phase; Z93.1 Gastrostomy status; I73.9 Peripheral vascular disease, unspecified; E78.5 Hyperlipidemia, unspecified; I10 Essential (primary) hypertension; J44.9 Chronic obstructive pulmonary disease, unspecified; E11.42 Type 2 diabetes mellitus with diabetic polyneuropathy; Z79.4 Long term (current) use of insulin; Z79.899 Other long term (current) drug therapy; Z66 Do not resuscitate; Z89.611 Acquired absence of right leg above knee; Z88.8 Allergy status to other drugs, medicaments and biological substances
CPT/HCPCS: 36415; 71010; 80048; 82550; 82565; 82962; 83605; 83880; 84484; 85025; 85027; 85610; 85730; 87040; 87070; 87075; 87077; 87186; 87205; 93005; 93010; 94640; 96365; 96375; 99291; J0456; J0696; J1650; J1815; J1956; J2405; J2930; J7030; J7620

== ENCOUNTER 2016-12-15 21:05 | Inpatient (IN) | payer MEDICARE, MEDICAID ==
--- NOTE | 2016-12-15 21:24 | ER Document Report ---
ED Respiratory Problem - General Mode of Arrival: Medic Information source: Patient, Relative Cannot obtain history due to: Dementia - obtained from family member TRAVEL OUTSIDE OF THE [place] IN LAST 30 DAYS: No - HPI Patient complains to provider of: Short of breath Onset: This afternoon Duration: Worse/persistent Context: Hx CHF, Hx COPD Sputum color: Clear, White At home treatment: Oxygen - 4-5 L Associated symptoms: Fever, Short of breath <SANDY DONG - Last Filed: 12/15/16 21:58> <ETTA ALLAN - Last Filed: 12/16/16 00:24> - General Chief Complaint: Breathing Difficulty Stated Complaint: DIFFICULTY BREATHING Notes: Patient is an 81-year-old female presenting to the emergency department concerned of shortness of breath onset this afternoon acutely. Patient was recently discharged from [facility] on 12/12/2016. Patient's family member states that the patient actually had a fever when she was discharged, and shortly after being discharged began having difficulty breathing again. Patient called the doctor that was caring for the patient, and she was told that she would have to go through the emergency department and the admittance process again to be readmitted. Patient began to improve, but today she began having low-grade fevers and at approximately 13:30 this afternoon her O2 levels began to drop. Per patient's family member, patient began having a mild cough today as well with clear and white mucus in her trach. Patient's family member states that the patient is on 4-5 L of oxygen at home depending on her oxygen saturation. (SANDY DONG) - Related Data Allergies/Adverse Reactions: alprazolam [From Xanax] Allergy (Verified 02/15/16 00:07) iodine [Iodine] Allergy (Verified 02/15/16 00:07) quetiapine fumarate [From Seroquel] Allergy (Verified 02/15/16 00:07) Past Medical History - General Information source: Patient - Social History Smoking Status: Former Smoker Frequency of alcohol use: None Lives with: Family Family History: Reviewed & Not Pertinent - Past Medical History Cardiac Medical History: Reports: Hx Congestive Heart Failure, Hx Hypercholesterolemia, Hx Hypertension, Hx Peripheral Vascular Disease Pulmonary Medical History: Reports: Hx COPD Endocrine Medical History: Reports: Hx Diabetes Mellitus Type 2 Psychiatric Medical History: Reports: Hx Dementia Past Surgical History: Reports: Hx Orthopedic Surgery - Shoulder. Right AKA. - Immunizations Hx Diphtheria, Pertussis, Tetanus Vaccination: Yes <IKERSANDY - Last Filed: 12/15/16 21:58> Review of Systems - Review of Systems Constitutional: See HPI, Fever EENT: No symptoms reported Cardiovascular: No symptoms reported Respiratory: See HPI, Cough, Short of breath, Sputum - clear or white Gastrointestinal: No symptoms reported Genitourinary: No symptoms reported Female Genitourinary: No symptoms reported Musculoskeletal: No symptoms reported Skin: No symptoms reported Hematologic/Lymphatic: No symptoms reported Neurological/Psychological: No symptoms reported -: Yes All other systems reviewed and negative <SANDY DONG - Last Filed: 12/15/16 21:58> Physical Exam - General General appearance: Alert - HEENT Head: Normocephalic, Atraumatic Eyes: Normal Pupils: PERRL Mouth/Lips: Other - Dry blood over tip of tongue. No active bleeding. Mucous membranes: Dry - Respiratory Breath sounds: Rhonchi - mild, diffuse, Other - Coarse breath sounds. - Cardiovascular Rhythm: Regular Heart sounds: Normal auscultation Murmur: No - Abdominal Inspection: Normal Distension: No distension Tenderness: Nontender - Back Back: Normal, Nontender - Extremities General upper extremity: Normal inspection General lower extremity: Normal inspection - Neurological Neuro grossly intact: Yes Cognition: Confused Martin Coma Scale Eye Opening: Spontaneous Strawn Coma Scale Verbal: Oriented Strawn Coma Scale Motor: Obeys Commands Martin Coma Scale Total: 15 Speech: Other - Trach - Psychological Associated symptoms: Normal affect, Normal mood - Skin Skin Temperature: Warm Skin Moisture: Dry Skin Color: Normal <SANDY DONG - Last Filed: 12/15/16 21:58> Course <SANDY DONG - Last Filed: 12/15/16 21:58> - Laboratory Result Diagrams: 12/15/16 21:45 12/15/16 21:46 - EKG Interpretation by Vt Rate: Tachycardia [place]/QRS: Left axis deviation - Non-spec st-t wave abn P Waves: No: DOMONIQUE, LAE, Absent, AV Dissociation, Other <ETTA ALLAN - Last Filed: 12/16/16 00:24> - Re-evaluation Re-evalutation: 12/16/16 00:19 Patient continues to improve. She is still requiring 6 L of oxygen via trach collar to keep her sats 90%. She does appear somewhat dehydrated. She is getting tube feedings now and potentially missed her feeding earlier. Her BUN is 60. I spoke to Dr. Huitron and he will readmit the patient with the persisting hypoxemia. White count has elevated somewhat compared to prior as well. (ETTA ALLAN) - Vital Signs Vital signs: Temp Pulse Resp BP Pulse Ox 97.3 F 26 H 140/78 H 92 12/15/16 21:09 12/16/16 00:01 12/16/16 00:00 12/16/16 00:01 - Laboratory Laboratory results interpreted by me: 12/15/16 12/15/16 21:45 21:46 WBC 15.2 H RDW 15.4 H Absolute Neutrophils 9.6 H Carbon Dioxide 21 L BUN 60 H Glucose 164 H Calcium 11.3 H Discharge <SANYD DONG - Last Filed: 12/15/16 21:58> - Discharge Admitting Provider: Fermin Unit Admitted: Telemetry <ETTA ALLAN - Last Filed: 12/16/16 00:24> - Discharge Clinical Impression: Hypoxia, Prerenal azotemia Dyspnea Qualifiers: Dyspnea type: shortness of breath Qualified Code(s): R06.02 - Shortness of breath Condition: Good Disposition: ADMITTED OBSERVATION Referrals: BAKARI BECKER MD [Primary Care Provider] - Follow up as needed Scribe Documentation - Scribe Written by Scribe:: Sandy Dong [id number] acting as scribe for :: Greg <SANDY DONG - Last Filed: 12/15/16 21:58>
[2016-12-15 22:11] LABS: ABSOLUTE BASOPHILS # (AUTO) 0.1 10^3/uL (0.0-0.2); ABSOLUTE EOSINOPHILS # (AUTO) 0.5 10^3/uL (0.0-0.6); ABSOLUTE LYMPHOCYTES (AUTO) 3.7 10^3/uL (0.5-4.7); ABSOLUTE MONOCYTES (AUTO) 1.3 10^3/uL (0.1-1.4); ABSOLUTE NEUT (AUTO) 9.6 10^3/uL (1.7-8.2); BASOPHILS % (AUTO) 0.9 % (0-2); EOSINOPHILS % (AUTO) 3.3 % (0-6); HEMATOCRIT 41.6 % (36.0-47.0); HEMOGLOBIN 13.5 g/dL (12.0-15.5); HGB HCT DIFFERENCE -1.1; LYMPHOCYTES % (AUTO) 24.1 % (13-45); MEAN CORPUSCULAR HEMOGLOBIN 28.5 pg (27.0-33.4); MEAN CORPUSCULAR HGB CONC 32.4 g/dL (32.0-36.0); MEAN CORPUSCULAR VOLUME 88 fl (80-97); MONOCYTES % (AUTO) 8.7 % (3-13); RED BLOOD COUNT 4.74 10^6/uL (3.72-5.28); RED CELL DISTRIBUTION WIDTH 15.4 % (11.5-14.0); WHITE BLOOD COUNT 15.2 10^3/uL (4.0-10.5)
[2016-12-15 22:29] LABS: ANION GAP 15 (5-19); BLOOD UREA NITROGEN 60 mg/dL (7-20); CALCIUM 11.3 mg/dL (8.4-10.2); CARBON DIOXIDE 21 mmol/L (22-30); CHLORIDE 106 mmol/L (98-107); CREATININE RESULT 0.78 mg/dL (0.52-1.25); GLUCOSE 164 mg/dL (75-110); POTASSIUM 4.5 mmol/L (3.6-5.0); SODIUM 142.1 mmol/L (137-145)
[2016-12-16] MEDS ORDERED: NORMAL SALINE 1000 ML 500 ML IV ONE (00:17)
[2016-12-16] MEDS ORDERED: IPRATROPIUM/ALBUTEROL 0.5-2.5 MG/3 ML AMPUL NEB ONE (04:41)
[2016-12-16] MEDS: IPRATROPIUM/ALBUTEROL 0.5-2.5 MG/3 ML AMPUL NEB PRN ×3 (04:50→21:43)
[2016-12-16 05:14] LABS: HEMATOCRIT 35.6 % (36.0-47.0); HEMOGLOBIN 11.8 g/dL (12.0-15.5); HGB HCT DIFFERENCE -0.2; MEAN CORPUSCULAR HEMOGLOBIN 28.8 pg (27.0-33.4); MEAN CORPUSCULAR HGB CONC 33.1 g/dL (32.0-36.0); MEAN CORPUSCULAR VOLUME 87 fl (80-97); RED BLOOD COUNT 4.09 10^6/uL (3.72-5.28); RED CELL DISTRIBUTION WIDTH 14.9 % (11.5-14.0); WHITE BLOOD COUNT 13.5 10^3/uL (4.0-10.5)
[2016-12-16 05:41] LABS: ANION GAP 13 (5-19); BLOOD UREA NITROGEN 60 mg/dL (7-20); CALCIUM 10.7 mg/dL (8.4-10.2); CARBON DIOXIDE 19 mmol/L (22-30); CHLORIDE 111 mmol/L (98-107); CREATININE RESULT 0.74 mg/dL (0.52-1.25); GLUCOSE 223 mg/dL (75-110); POTASSIUM 4.4 mmol/L (3.6-5.0); SODIUM 142.9 mmol/L (137-145)
--- NOTE | 2016-12-16 08:17 | EKG REPORT ---
SEVERITY:- ABNORMAL ECG - SINUS TACHYCARDIA LEFT AXIS DEVIATION LEFT VENTRICULAR HYPERTROPHY : Confirmed by: Ethan Azar MD 16-Dec-2016 08:16:36
[2016-12-16 10:13] LABS: ARTERIAL BLOOD BASE EXCESS -0.5 mmol/L; ARTERIAL BLOOD O2 SATURATION 95.3 % (94-98)
[2016-12-16] MEDS ORDERED: DEXTROSE 50%-WATER SYRINGE 25 GM/50 ML DOSE IV PRN (13:09)
[2016-12-16] MEDS ORDERED: DEXTROSE 40% GEL 15 GM TUBE X 2 PO PRN (13:09)
[2016-12-16] MEDS ORDERED: GLUCAGON,HUMAN RECOMB 1 MG INJ IM PRN (13:09)
[2016-12-16] MEDS ORDERED: DEXTROSE 40% GEL 15 GM TUBE PO PRN (13:09)
[2016-12-16] MEDS ORDERED: DEXTROSE 50%-WATER SYRINGE 12.5 GM/25 ML DOSE IV PRN (13:09)
[2016-12-16] MEDS ORDERED: ONDANSETRON HCL INJ/PF 4 MG/2 ML SDV IV PRN (16:08)
[2016-12-16 16:51] LABS: ARTERIAL BLOOD BASE EXCESS -1.6 mmol/L; ARTERIAL BLOOD O2 SATURATION 80.2 % (94-98)
--- NOTE | 2016-12-16 19:24 | PDOC H&P ---
History of Present Illness Admission Date/PCP: 12/16/16 04:40 BAKARI BECKER MD History of Present Illness: Patient 81-year-old female with multiple comorbid conditions, she was just discharged from this hospital on December 12, 2016 at that time she was admitted for oxygen desaturation due to trach dysfunction, it was felt that she may have pneumonia but the chest x-ray was negative for any acute infiltrate or consolidation to suggest pneumonia. She was brought emergency room because of a low oxygen saturation the pulse oximetry revealed a low SaO2, and the emergency room attempt was made to maintain adequate oxygenation but she required high volume oxygen and because of these hospital admission was advised. She was admitted initially for observation on the floor she was maintaining adequate oxygen saturation on the floor, rapid response team was called to the floor because she cannot maintain adequate oxygen saturation. She was seen by the surgeon the trach collar was changed and she was started on mechanical ventilation and then transferred to intensive care unit for management. The chest x-ray did not show any pneumonia just like the first time she was admitted. This is due to trach dysfunction from mucous plugging. 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 Right AKA. Social History Lives with: Family Smoking Status: Former Smoker Frequency of Alcohol Use: None Hx Recreational Drug Use: No Hx Prescription Drug Abuse: No - Advance Directive Resuscitation Status: Full Code Family History Family History: Reviewed & Not Pertinent Parental Family History Reviewed: Yes Children Family History Reviewed: Yes Sibling(s) Family History Reviewed.: Yes Medication/Allergy Home Medications: Amlodipine Besylate [Norvasc 10 mg Tablet] 10 mg PO DAILY 12/16/16 Ascorbic Acid [Vitamin C 500 mg Tablet] 500 mg PO DAILY 12/16/16 Atorvastatin Calcium [Lipitor 10 mg Tablet] 10 mg PO DAILY 12/16/16 Famotidine [Pepcid 40 mg Tablet] 40 mg PO QHS 12/16/16 Gabapentin [Neurontin 100 mg Capsule] 200 mg PO DAILY 12/16/16 Insulin Detemir [Levemir Flextouch] 5 unit SQ DAILY 12/16/16 Ipratropium/Albuterol Sulfate [Iprat-Albut 0.5-3(2.5) mg/3 ml] 3 ml NEB Q6HP PRN 12/16/16 Losartan Potassium [Cozaar 100 mg Tablet] 100 mg PO DAILY 12/16/16 Memantine HCl [Namenda 10 mg Tablet] 10 mg PO DAILY 12/16/16 Ondansetron HCl [Zofran 4 mg Tablet] 4 mg PO TIDP PRN 12/16/16 Allergies/Adverse Reactions: alprazolam [From Xanax] Allergy (Verified 12/16/16 00:48) iodine [Iodine] Allergy (Verified 12/16/16 00:48) quetiapine fumarate [From Seroquel] Allergy (Verified 12/16/16 00:48) Review of Systems ROS unobtainable: Other - Review of system not obtainable because of trach in place Physical Exam Vital Signs: Temp Pulse Resp BP Pulse Ox 98.7 F 108 H 25 H 126/72 H 94 12/16/16 07:30 12/16/16 04:50 12/16/16 13:01 12/16/16 13:00 12/16/16 13:01 General appearance: PRESENT: mild distress Head exam: PRESENT: atraumatic, normocephalic Eye exam: PRESENT: PERRLA Mouth exam: PRESENT: moist Neck exam: PRESENT: tracheostomy Respiratory exam: PRESENT: clear to auscultation monica Cardiovascular exam: PRESENT: +S1, +S2 Pulses: PRESENT: normal dorsalis pedis pul, +2 pedal pulses bilateral Vascular exam: PRESENT: normal capillary refill GI/Abdominal exam: PRESENT: soft Rectal exam: PRESENT: deferred Extremities exam: PRESENT: right AKA Neurological exam: PRESENT: alert Psychiatric exam: PRESENT: appropriate affect, normal mood Skin exam: PRESENT: dry, warm Results Laboratory Results: 12/16/16 05:03 12/16/16 05:03 12/16/16 12/16/16 12/16/16 05:03 05:03 10:03 WBC 13.5 H RBC 4.09 Hgb 11.8 L Hct 35.6 L MCV 87 MCH 28.8 MCHC 33.1 RDW 14.9 H Plt Count 320 Carbonic Acid 0.98 L HCO3/H2CO3 Ratio 22:1 ABG pH 7.46 H ABG pCO2 32.5 L ABG pO2 71.3 L ABG HCO3 22.5 ABG O2 Saturation 95.3 ABG Base Excess -0.5 FiO2 100% Sodium 142.9 Potassium 4.4 Chloride 111 H Carbon Dioxide 19 L Anion Gap 13 BUN 60 H Creatinine 0.74 Est GFR ( Amer) > 60 Est GFR (Non-Af Amer) > 60 Glucose 223 H Calcium 10.7 H 12/16/16 16:25 WBC RBC Hgb Hct MCV MCH MCHC RDW Plt Count Carbonic Acid 0.86 L HCO3/H2CO3 Ratio 23:1 ABG pH 7.48 H ABG pCO2 28.6 L ABG pO2 40.4 L* ABG HCO3 20.6 ABG O2 Saturation 80.2 L ABG Base Excess -1.6 FiO2 50% Sodium Potassium Chloride Carbon Dioxide Anion Gap BUN Creatinine Est GFR ( Amer) Est GFR (Non-Af Amer) Glucose Calcium Impressions: Chest X-Ray 12/16/16 17:28 IMPRESSION: NO ACUTE RADIOGRAPHIC FINDING IN THE CHEST. Assessment & Plan - Diagnosis (1) Acute hypoxemic respiratory failure Is this a current diagnosis for this admission?: YesPlan: Patient was placed on mechanical ventilation (2) Tracheostomy malfunction Is this a current diagnosis for this admission?: Yes
[2016-12-16 19:53] LABS: ARTERIAL BLOOD BASE EXCESS -1.5 mmol/L; ARTERIAL BLOOD O2 SATURATION 94.7 % (94-98)
[2016-12-16] MEDS: ENOXAPARIN SODIUM INJ 30 MG/0.3 ML DISP.SYRIN SUBCUT SCH (21:50)
[2016-12-16 22:41] LABS: APPEARANCE,URINE SLIGHTLY-CLOUDY; BILIRUBIN,URINE NEGATIVE (NEGATIVE); GLUCOSE, URINE 150 mg/dL (NEGATIVE); KETONES,URINE NEGATIVE (NEGATIVE); LEUKOCYTE ESTERASE,URINE LARGE (NEGATIVE); NITRITE,URINE NEGATIVE (NEGATIVE); PROTEIN,URINE NEGATIVE (NEGATIVE); URINE SPECIFIC GRAVITY 1.013; UROBILINOGEN,URINE NEGATIVE mg/dL (<2.0)
--- NOTE | 2016-12-16 22:48 | PDOC CONSULTATION ---
History of Present Illness Admission Date/PCP: 12/16/16 04:40 BAKARI BECKER MD History of Present Illness: BRIANA BRADY is a 81 year old female with long standing tracheostomy, currently admitted to medical service noted with hypoxemia and sob. asked by nursing staff to eval trach and replace with cuffed trach to allow bag ventilation. Past Medical History Cardiac Medical History: Reports: Congestive Heart Failure, Hyperlipidema, Hypertension, Peripheral Vascular Disease Pulmonary Medical History: Reports: Chronic Obstructive Pulmonary Disease (COPD) Endocrine Medical History: Reports: Diabetes Mellitus Type 2 Psychiatric Medical History: Reports: Dementia Past Surgical History Past Surgical History: Reports: Orthopedic Surgery - Shoulder. Right AKA. Social History Lives with: Family Smoking Status: Former Smoker Frequency of Alcohol Use: None Hx Recreational Drug Use: No Drugs: Cocaine Hx Prescription Drug Abuse: No - Advance Directive Resuscitation Status: Full Code Family History Family History: Reviewed & Not Pertinent Parental Family History Reviewed: No Children Family History Reviewed: No Sibling(s) Family History Reviewed.: No Medication/Allergy Home Medications: Amlodipine Besylate [Norvasc 10 mg Tablet] 10 mg PO DAILY 12/16/16 Ascorbic Acid [Vitamin C 500 mg Tablet] 500 mg PO DAILY 12/16/16 Atorvastatin Calcium [Lipitor 10 mg Tablet] 10 mg PO DAILY 12/16/16 Famotidine [Pepcid 40 mg Tablet] 40 mg PO QHS 12/16/16 Gabapentin [Neurontin 100 mg Capsule] 200 mg PO DAILY 12/16/16 Insulin Detemir [Levemir Flextouch] 5 unit SQ DAILY 12/16/16 Ipratropium/Albuterol Sulfate [Iprat-Albut 0.5-3(2.5) mg/3 ml] 3 ml NEB Q6HP PRN 12/16/16 Losartan Potassium [Cozaar 100 mg Tablet] 100 mg PO DAILY 12/16/16 Memantine HCl [Namenda 10 mg Tablet] 10 mg PO DAILY 12/16/16 Ondansetron HCl [Zofran 4 mg Tablet] 4 mg PO TIDP PRN 12/16/16 Allergies/Adverse Reactions: alprazolam [From Xanax] Allergy (Verified 12/16/16 00:48) iodine [Iodine] Allergy (Verified 12/16/16 00:48) quetiapine fumarate [From Seroquel] Allergy (Verified 12/16/16 00:48) Physical Exam Vital Signs: Temp Pulse Resp BP Pulse Ox 98.7 F 108 H 25 H 126/72 H 94 12/16/16 07:30 12/16/16 04:50 12/16/16 13:01 12/16/16 13:00 12/16/16 13:01 General appearance: PRESENT: mild distress - respiratory distress. Neck exam: PRESENT: tracheostomy - in place. non cuffed, site well healed and mature., other Respiratory exam: PRESENT: accessory muscle use, rhonchi Cardiovascular exam: PRESENT: tachycardia GI/Abdominal exam: PRESENT: other - soft, mildly distended Results Laboratory Results: 12/16/16 05:03 12/16/16 05:03 12/16/16 12/16/16 12/16/16 05:03 05:03 10:03 WBC 13.5 H RBC 4.09 Hgb 11.8 L Hct 35.6 L MCV 87 MCH 28.8 MCHC 33.1 RDW 14.9 H Plt Count 320 Carbonic Acid 0.98 L HCO3/H2CO3 Ratio 22:1 ABG pH 7.46 H ABG pCO2 32.5 L ABG pO2 71.3 L ABG HCO3 22.5 ABG O2 Saturation 95.3 ABG Base Excess -0.5 FiO2 100% Sodium 142.9 Potassium 4.4 Chloride 111 H Carbon Dioxide 19 L Anion Gap 13 BUN 60 H Creatinine 0.74 Est GFR ( Amer) > 60 Est GFR (Non-Af Amer) > 60 Glucose 223 H Calcium 10.7 H 12/16/16 16:25 WBC RBC Hgb Hct MCV MCH MCHC RDW Plt Count Carbonic Acid 0.86 L HCO3/H2CO3 Ratio 23:1 ABG pH 7.48 H ABG pCO2 28.6 L ABG pO2 40.4 L* ABG HCO3 20.6 ABG O2 Saturation 80.2 L ABG Base Excess -1.6 FiO2 50% Sodium Potassium Chloride Carbon Dioxide Anion Gap BUN Creatinine Est GFR ( Amer) Est GFR (Non-Af Amer) Glucose Calcium Impressions: Chest X-Ray 12/15/16 22:04 IMPRESSION: No significant interval change. No acute findings. Other findings as noted above. Assessment & Plan - Diagnosis (1) Acute respiratory failure Qualifiers: Respiratory failure complication: hypoxia Qualified Code(s): J96.01 - Acute respiratory failure with hypoxia Is this a current diagnosis for this admission?: YesPlan: trach replaced with 6 cuffed shiley, able to bag ventilate her easily. good breaths sound bilaterally. will transfer to ICU for vent support. place peg to lwis.
[2016-12-17 09:30] LABS: ABSOLUTE BASOPHILS # (AUTO) 0.1 10^3/uL (0.0-0.2); ABSOLUTE EOSINOPHILS # (AUTO) 0.5 10^3/uL (0.0-0.6); ABSOLUTE LYMPHOCYTES (AUTO) 3.6 10^3/uL (0.5-4.7); ABSOLUTE MONOCYTES (AUTO) 1.1 10^3/uL (0.1-1.4); ABSOLUTE NEUT (AUTO) 6.8 10^3/uL (1.7-8.2); BASOPHILS % (AUTO) 0.9 % (0-2); EOSINOPHILS % (AUTO) 3.9 % (0-6); HEMATOCRIT 34.8 % (36.0-47.0); HEMOGLOBIN 11.7 g/dL (12.0-15.5); HGB HCT DIFFERENCE 0.3; LYMPHOCYTES % (AUTO) 29.7 % (13-45); MEAN CORPUSCULAR HEMOGLOBIN 29.3 pg (27.0-33.4); MEAN CORPUSCULAR HGB CONC 33.6 g/dL (32.0-36.0); MEAN CORPUSCULAR VOLUME 87 fl (80-97); MONOCYTES % (AUTO) 9.1 % (3-13); RED BLOOD COUNT 3.99 10^6/uL (3.72-5.28); RED CELL DISTRIBUTION WIDTH 14.8 % (11.5-14.0); SEGMENTED NEUTROPHILS % (AUTO) 56.4 % (42-78)
[2016-12-17 09:47] LABS: ALANINE AMINOTRANSFERASE 59 U/L (9-52); ALBUMIN 3.5 g/dL (3.5-5.0); ALKALINE PHOSPHATASE 100 U/L (38-126); ANION GAP 11 (5-19); ASPARTATE AMINO TRANSFERASE 38 U/L (14-36); BILIRUBIN,DIRECT 0.1 mg/dL (0.0-0.4); BILIRUBIN,TOTAL 0.7 mg/dL (0.2-1.3); BLOOD UREA NITROGEN 51 mg/dL (7-20); CALCIUM 11.2 mg/dL (8.4-10.2); CARBON DIOXIDE 22 mmol/L (22-30); CHLORIDE 112 mmol/L (98-107); CREATININE RESULT 0.82 mg/dL (0.52-1.25); GLUCOSE 168 mg/dL (75-110); SODIUM 145.4 mmol/L (137-145); TOTAL PROTEIN 6.8 g/dL (6.3-8.2)
[2016-12-17] MEDS: ENOXAPARIN SODIUM INJ 30 MG/0.3 ML DISP.SYRIN SUBCUT SCH (10:09)
[2016-12-17 10:31] LABS: ARTERIAL BLOOD BASE EXCESS -1.8 mmol/L; ARTERIAL BLOOD O2 SATURATION 97.5 % (94-98)
[2016-12-17] MEDS: IPRATROPIUM/ALBUTEROL 0.5-2.5 MG/3 ML AMPUL NEB PRN ×2 (13:41→18:21)
[2016-12-17] MEDS: INSULIN LISPRO 100 UNIT/ML 3 ML VIAL SUBCUT PRN ×2 (17:34→23:43)
[2016-12-17] MEDS ORDERED: ALBUTEROL SULFATE 0.083% NEB 2.5 MG/3 ML AMPUL NEB PRN (19:14)
[2016-12-17] MEDS: IPRATROPIUM/ALBUTEROL 0.5-2.5 MG/3 ML AMPUL NEB SCH (20:00)
--- NOTE | 2016-12-17 20:36 | PDOC PROGRESS REPORT ---
Subjective Progress Note for:: 12/17/16 Subjective:: She was seen by the bedside, she developed acute hypoxemic respiratory failure yesterday due to a malfunction of the tracheostomy tube on she is presently on mechanical ventilation she is comfortable she is alert not on sedation. She was admitted for observation yesterday, chest x-ray did not show any infiltrate to suggest pneumonia, she had episode of wheezing from COPD. Consultation will be requested for pulmonary she could be weaned off over the weekend from mechanical ventilation. Physical Exam Vital Signs: Temp Pulse Resp BP Pulse Ox 99.3 F 129 H 32 H 116/70 90 L 12/17/16 18:00 12/17/16 18:00 12/17/16 18:00 12/17/16 18:00 12/17/16 18:00 Intake & Output 12/16/16 12/17/16 12/18/16 06:59 06:59 06:59 Intake Total 347 537 Output Total 870 575 Balance -523 -38 Weight 58.4 kg General appearance: PRESENT: no acute distress Eye exam: PRESENT: PERRLA Respiratory exam: PRESENT: clear to auscultation monica Cardiovascular exam: PRESENT: +S1, +S2 GI/Abdominal exam: PRESENT: soft Neurological exam: PRESENT: alert, CN II-XII grossly intact Results Laboratory Results: 12/17/16 09:22 12/17/16 09:22 12/16/16 12/17/16 12/17/16 21:40 09:22 09:22 WBC 12.0 H RBC 3.99 Hgb 11.7 L Hct 34.8 L MCV 87 MCH 29.3 MCHC 33.6 RDW 14.8 H Plt Count 320 Seg Neutrophils % 56.4 Lymphocytes % 29.7 Monocytes % 9.1 Eosinophils % 3.9 Basophils % 0.9 Absolute Neutrophils 6.8 Absolute Lymphocytes 3.6 Absolute Monocytes 1.1 Absolute Eosinophils 0.5 Absolute Basophils 0.1 Carbonic Acid HCO3/H2CO3 Ratio ABG pH ABG pCO2 ABG pO2 ABG HCO3 ABG O2 Saturation ABG Base Excess FiO2 Sodium 145.4 H Potassium 4.0 Chloride 112 H Carbon Dioxide 22 Anion Gap 11 BUN 51 H Creatinine 0.82 Est GFR ( Amer) > 60 Est GFR (Non-Af Amer) > 60 Glucose 168 H Calcium 11.2 H Total Bilirubin 0.7 AST 38 H ALT 59 H Alkaline Phosphatase 100 Total Protein 6.8 Albumin 3.5 Urine Color YELLOW Urine Appearance SLIGHTLY-CLOUDY Urine pH 6.0 Ur Specific [place]ott 1.013 Urine Protein NEGATIVE Urine Glucose (UA) 150 H Urine Ketones NEGATIVE Urine Blood NEGATIVE Urine Nitrite NEGATIVE Ur Leukocyte Esterase LARGE H Urine WBC (Auto) 59 Urine RBC (Auto) 2 12/17/16 10:17 WBC RBC Hgb Hct MCV MCH MCHC RDW Plt Count Seg Neutrophils % Lymphocytes % Monocytes % Eosinophils % Basophils % Absolute Neutrophils Absolute Lymphocytes Absolute Monocytes Absolute Eosinophils Absolute Basophils Carbonic Acid 1.01 L HCO3/H2CO3 Ratio 21:1 ABG pH 7.43 ABG pCO2 33.7 L ABG pO2 95.4 ABG HCO3 21.8 ABG O2 Saturation 97.5 ABG Base Excess -1.8 FiO2 50% Sodium Potassium Chloride Carbon Dioxide Anion Gap BUN Creatinine Est GFR ( Amer) Est GFR (Non-Af Amer) Glucose Calcium Total Bilirubin AST ALT Alkaline Phosphatase Total Protein Albumin Urine Color Urine Appearance Urine pH Ur Specific Mott Urine Protein Urine Glucose (UA) Urine Ketones Urine Blood Urine Nitrite Ur Leukocyte Esterase Urine WBC (Auto) Urine RBC (Auto) Impressions: Chest X-Ray 12/17/16 00:00 IMPRESSION: STABLE APPEARANCE OF THE CHEST. SUPPORT DEVICES UNCHANGED. Assessment & Plan - Diagnosis (1) Acute hypoxemic respiratory failure Is this a current diagnosis for this admission?: YesPlan: Patient presently on mechanical ventilation, SIMV of 14 FiO2 60%, tidal volume 500, PEEP 18 pressure support of 8, consultation will be requested from pulmonary (2) Tracheostomy malfunction Is this a current diagnosis for this admission?: Yes
[2016-12-17 23:05] LABS: ARTERIAL BLOOD BASE EXCESS -1.3 mmol/L; ARTERIAL BLOOD O2 SATURATION 95.9 % (94-98)
[2016-12-18 04:44] LABS: HEMATOCRIT 32.4 % (36.0-47.0); HEMOGLOBIN 10.7 g/dL (12.0-15.5); HGB HCT DIFFERENCE -0.3; MEAN CORPUSCULAR HEMOGLOBIN 29.2 pg (27.0-33.4); MEAN CORPUSCULAR HGB CONC 33.1 g/dL (32.0-36.0); MEAN CORPUSCULAR VOLUME 88 fl (80-97); RED BLOOD COUNT 3.67 10^6/uL (3.72-5.28); WHITE BLOOD COUNT 12.8 10^3/uL (4.0-10.5)
[2016-12-18 05:14] LABS: ALANINE AMINOTRANSFERASE 53 U/L (9-52); ALKALINE PHOSPHATASE 89 U/L (38-126); ANION GAP 9 (5-19); ASPARTATE AMINO TRANSFERASE 34 U/L (14-36); BILIRUBIN,DIRECT 0.1 mg/dL (0.0-0.4); BILIRUBIN,TOTAL 0.5 mg/dL (0.2-1.3); BLOOD UREA NITROGEN 52 mg/dL (7-20); CALCIUM 10.8 mg/dL (8.4-10.2); CARBON DIOXIDE 23 mmol/L (22-30); CHLORIDE 112 mmol/L (98-107); CREATININE RESULT 0.84 mg/dL (0.52-1.25); GLUCOSE 136 mg/dL (75-110); POTASSIUM 3.8 mmol/L (3.6-5.0); SODIUM 144.4 mmol/L (137-145); TOTAL PROTEIN 6.1 g/dL (6.3-8.2)
[2016-12-18 06:33] LABS: ARTERIAL BLOOD BASE EXCESS -2.2 mmol/L; ARTERIAL BLOOD O2 SATURATION 97.3 % (94-98)
[2016-12-18] MEDS: IPRATROPIUM/ALBUTEROL 0.5-2.5 MG/3 ML AMPUL NEB SCH ×3 (08:00→20:34)
--- NOTE | 2016-12-18 09:26 | PDOC PROGRESS REPORT ---
Subjective Progress Note for:: 12/18/16 Subjective:: Patient was admitted in the ICU due to malfunctioning ventriculostomy and leak to the respiratory failure and patient was put in the right and also pneumonia. Patient is currently doing much better patient's followed by the pulmonary patient is alert awake underlying dementia the family isn't at bedside Physical Exam Vital Signs: Temp Pulse Resp BP Pulse Ox 98.4 F 91 14 119/74 100 12/18/16 08:00 12/18/16 08:00 12/18/16 08:00 12/18/16 08:00 12/18/16 08:00 Intake & Output 12/17/16 12/18/16 12/19/16 06:59 06:59 06:59 Intake Total 347 837 Output Total 870 1010 Balance -523 -173 Weight 58.4 kg 57.9 kg General appearance: PRESENT: no acute distress Eye exam: PRESENT: PERRLA Respiratory exam: PRESENT: clear to auscultation monica Additional comments: The trach site is intake Cardiovascular exam: PRESENT: +S1, +S2 GI/Abdominal exam: PRESENT: normal bowel sounds, soft Extremities exam: PRESENT: right BKA Neurological exam: PRESENT: alert, awake Skin exam: PRESENT: dry Results Laboratory Results: 12/18/16 04:30 12/18/16 04:30 12/17/16 12/17/16 12/17/16 09:22 09:22 10:17 WBC 12.0 H RBC 3.99 Hgb 11.7 L Hct 34.8 L MCV 87 MCH 29.3 MCHC 33.6 RDW 14.8 H Plt Count 320 Seg Neutrophils % 56.4 Lymphocytes % 29.7 Monocytes % 9.1 Eosinophils % 3.9 Basophils % 0.9 Absolute Neutrophils 6.8 Absolute Lymphocytes 3.6 Absolute Monocytes 1.1 Absolute Eosinophils 0.5 Absolute Basophils 0.1 Carbonic Acid 1.01 L HCO3/H2CO3 Ratio 21:1 ABG pH 7.43 ABG pCO2 33.7 L ABG pO2 95.4 ABG HCO3 21.8 ABG O2 Saturation 97.5 ABG Base Excess -1.8 FiO2 50% Sodium 145.4 H Potassium 4.0 Chloride 112 H Carbon Dioxide 22 Anion Gap 11 BUN 51 H Creatinine 0.82 Est GFR ( Amer) > 60 Est GFR (Non-Af Amer) > 60 Glucose 168 H Calcium 11.2 H Total Bilirubin 0.7 AST 38 H ALT 59 H Alkaline Phosphatase 100 Total Protein 6.8 Albumin 3.5 12/17/16 12/18/16 12/18/16 20:20 04:30 04:30 WBC 12.8 H RBC 3.67 L Hgb 10.7 L Hct 32.4 L MCV 88 MCH 29.2 MCHC 33.1 RDW 15.0 H Plt Count 295 Seg Neutrophils % Lymphocytes % Monocytes % Eosinophils % Basophils % Absolute Neutrophils Absolute Lymphocytes Absolute Monocytes Absolute Eosinophils Absolute Basophils Carbonic Acid 0.98 L HCO3/H2CO3 Ratio 22:1 ABG pH 7.45 ABG pCO2 32.4 L ABG pO2 75.8 L ABG HCO3 22.0 ABG O2 Saturation 95.9 ABG Base Excess -1.3 FiO2 60% Sodium 144.4 Potassium 3.8 Chloride 112 H Carbon Dioxide 23 Anion Gap 9 BUN 52 H Creatinine 0.84 Est GFR ( Amer) > 60 Est GFR (Non-Af Amer) > 60 Glucose 136 H Calcium 10.8 H Total Bilirubin 0.5 AST 34 ALT 53 H Alkaline Phosphatase 89 Total Protein 6.1 L Albumin 3.0 L 12/18/16 06:15 WBC RBC Hgb Hct MCV MCH MCHC RDW Plt Count Seg Neutrophils % Lymphocytes % Monocytes % Eosinophils % Basophils % Absolute Neutrophils Absolute Lymphocytes Absolute Monocytes Absolute Eosinophils Absolute Basophils Carbonic Acid 0.95 L HCO3/H2CO3 Ratio 22:1 ABG pH 7.44 ABG pCO2 31.5 L ABG pO2 91.2 ABG HCO3 21.1 ABG O2 Saturation 97.3 ABG Base Excess -2.2 FiO2 40% Sodium Potassium Chloride Carbon Dioxide Anion Gap BUN Creatinine Est GFR ( Amer) Est GFR (Non-Af Amer) Glucose Calcium Total Bilirubin AST ALT Alkaline Phosphatase Total Protein Albumin Impressions: Chest X-Ray 12/18/16 06:00 IMPRESSION: Stable right basilar opacities having the appearance of pneumonia. Assessment & Plan - Diagnosis (1) Acute hypoxemic respiratory failure Is this a current diagnosis for this admission?: YesPlan: Currently underwent setting of pulmonary (2) Pneumonia Qualifiers: Pneumonia type: aspiration pneumonia Aspiration pneumonia type: unspecified Laterality: bilateral Lung location: lower lobe of lung Qualified Code(s): J69.0 - Pneumonitis due to inhalation of food and vomit Plan: /The patient on IV antibiotics (3) Tracheostomy malfunction Is this a current diagnosis for this admission?: YesPlan: Currently stable - Time Time Spent with patient: 15-24 minutes Critical Time spent with patient: 15-24 minutes Medications reviewed and adjusted accordingly: Yes Anticipated discharge: Other Within: Other - Inpatient Certification Medical Necessity: Significant Comorbidiites Make Outpatient Treatment Too Risky 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 Christianson for the vent management and if is remained stable we'll transfer the patient's to the IMCU start the patient on IV antibiotic
[2016-12-18] MEDS ORDERED: GLUCAGON,HUMAN RECOMB 1 MG INJ IM PRN (09:27)
[2016-12-18] MEDS ORDERED: DEXTROSE 40% GEL 15 GM TUBE PO PRN ×2 (09:27)
[2016-12-18] MEDS ORDERED: DEXTROSE 50%-WATER 25 GM/50 ML DISP.SYRIN IV PRN ×2 (09:27)
[2016-12-18] MEDS: FAMOTIDINE 20 MG TABLET PEG SCH (09:30)
[2016-12-18] MEDS: GABAPENTIN 100 MG CAPSULE PEG SCH (09:30)
[2016-12-18] MEDS ORDERED: OXYCODONE-ACETAMINOPHEN 5-325 MG TABLET PO PRN (09:54)
[2016-12-18] MEDS ORDERED: CEFTRIAXONE 1 GM/D5W RTU 50 ML IV SCH (10:00)
[2016-12-18] MEDS: ENOXAPARIN SODIUM INJ 30 MG/0.3 ML DISP.SYRIN SUBCUT SCH (10:18)
[2016-12-18] MEDS: MEMANTINE HCL 10 MG TABLET PEG SCH (10:33)
[2016-12-18] MEDS ORDERED: RISPERIDONE 0.25 MG TABLET PO SCH (11:00)
[2016-12-18] MEDS: SERTRALINE HCL 50 MG TABLET PO SCH (12:11)
[2016-12-18] MEDS: RISPERIDONE 0.25 MG TABLET PO SCH ×2 (12:11→18:10)
--- NOTE | 2016-12-18 14:57 | PDOC CONSULTATION ---
Consultation Consult Date: 12/17/16 Attending physician:: BAKARI BECKER Consult reason:: resp fail History of Present Illness Admission Date/PCP: 12/16/16 04:40 BAKARI BECKER MD History of Present Illness: all information from chart patient sedated on mechanical ventilatiomLILLIAN Leslie BRADY is a 81 year old female with long standing tracheostomy, currently admitted to medical service noted with hypoxemia and sob. 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 Right AKA. Social History Information Source: [facility] Records Lives with: Family Smoking Status: Former Smoker Passive smoke exposure as: Both Frequency of Alcohol Use: None Hx Recreational Drug Use: No Drugs: Cocaine Hx Prescription Drug Abuse: No - Advance Directive Resuscitation Status: Full Code Family History Family History: Reviewed & Not Pertinent Parental Family History Reviewed: No Children Family History Reviewed: No Sibling(s) Family History Reviewed.: No Medication/Allergy Home Medications: Amlodipine Besylate [Norvasc 10 mg Tablet] 10 mg PO DAILY 12/16/16 Ascorbic Acid [Vitamin C 500 mg Tablet] 500 mg PO DAILY 12/16/16 Atorvastatin Calcium [Lipitor 10 mg Tablet] 10 mg PO DAILY 12/16/16 Famotidine [Pepcid 40 mg Tablet] 40 mg PO QHS 12/16/16 Gabapentin [Neurontin 100 mg Capsule] 200 mg PO DAILY 12/16/16 Insulin Detemir [Levemir Flextouch] 5 unit SQ DAILY 12/16/16 Ipratropium/Albuterol Sulfate [Iprat-Albut 0.5-3(2.5) mg/3 ml] 3 ml NEB Q6HP PRN 12/16/16 Losartan Potassium [Cozaar 100 mg Tablet] 100 mg PO DAILY 12/16/16 Memantine HCl [Namenda 10 mg Tablet] 10 mg PO DAILY 12/16/16 Ondansetron HCl [Zofran 4 mg Tablet] 4 mg PO TIDP PRN 12/16/16 Allergies/Adverse Reactions: alprazolam [From Xanax] Allergy (Verified 12/16/16 00:48) iodine [Iodine] Allergy (Verified 12/16/16 00:48) quetiapine fumarate [From Seroquel] Allergy (Verified 12/16/16 00:48) Review of Systems ROS unobtainable: Due to endotracheal tube Physical Exam Vital Signs: Temp Pulse Resp BP Pulse Ox 99.3 F 129 H 32 H 116/70 90 L 12/17/16 18:00 12/17/16 18:00 12/17/16 18:00 12/17/16 18:00 12/17/16 18:00 Intake & Output 12/16/16 12/17/16 12/18/16 06:59 06:59 06:59 Intake Total 347 537 Output Total 870 575 Balance -523 -38 Weight 58.4 kg General appearance: PRESENT: no acute distress, disheveled, obese, well- developed Head exam: PRESENT: atraumatic, normocephalic Eye exam: PRESENT: conjunctiva pink Mouth exam: PRESENT: moist, neck supple - tracheostomy tube cuffed Neck exam: ABSENT: carotid bruit, JVD, lymphadenopathy, thyromegaly Respiratory exam: PRESENT: decreased breath sounds, prolonged expiratory phas, rhonchi, symmetrical, unlabored Cardiovascular exam: PRESENT: RRR, +S1, +S2 Pulses: PRESENT: normal radial pulses GI/Abdominal exam: PRESENT: normal bowel sounds, soft. ABSENT: distended, guarding, mass, organolmegaly, rebound, tenderness Rectal exam: PRESENT: deferred Gentrourinary exam: PRESENT: indwelling catheter Extremities exam: PRESENT: other - r bka Skin exam: PRESENT: dry, warm Results Laboratory Results: 12/17/16 09:22 12/17/16 09:22 12/16/16 12/17/16 12/17/16 21:40 09:22 09:22 WBC 12.0 H RBC 3.99 Hgb 11.7 L Hct 34.8 L MCV 87 MCH 29.3 MCHC 33.6 RDW 14.8 H Plt Count 320 Seg Neutrophils % 56.4 Lymphocytes % 29.7 Monocytes % 9.1 Eosinophils % 3.9 Basophils % 0.9 Absolute Neutrophils 6.8 Absolute Lymphocytes 3.6 Absolute Monocytes 1.1 Absolute Eosinophils 0.5 Absolute Basophils 0.1 Carbonic Acid HCO3/H2CO3 Ratio ABG pH ABG pCO2 ABG pO2 ABG HCO3 ABG O2 Saturation ABG Base Excess FiO2 Sodium 145.4 H Potassium 4.0 Chloride 112 H Carbon Dioxide 22 Anion Gap 11 BUN 51 H Creatinine 0.82 Est GFR ( Amer) > 60 Est GFR (Non-Af Amer) > 60 Glucose 168 H Calcium 11.2 H Total Bilirubin 0.7 AST 38 H ALT 59 H Alkaline Phosphatase 100 Total Protein 6.8 Albumin 3.5 Urine Color YELLOW Urine Appearance SLIGHTLY-CLOUDY Urine pH 6.0 Ur Specific Dale 1.013 Urine Protein NEGATIVE Urine Glucose (UA) 150 H Urine Ketones NEGATIVE Urine Blood NEGATIVE Urine Nitrite NEGATIVE Ur Leukocyte Esterase LARGE H Urine WBC (Auto) 59 Urine RBC (Auto) 2 12/17/16 10:17 WBC RBC Hgb Hct MCV MCH MCHC RDW Plt Count Seg Neutrophils % Lymphocytes % Monocytes % Eosinophils % Basophils % Absolute Neutrophils Absolute Lymphocytes Absolute Monocytes Absolute Eosinophils Absolute Basophils Carbonic Acid 1.01 L HCO3/H2CO3 Ratio 21:1 ABG pH 7.43 ABG pCO2 33.7 L ABG pO2 95.4 ABG HCO3 21.8 ABG O2 Saturation 97.5 ABG Base Excess -1.8 FiO2 50% Sodium Potassium Chloride Carbon Dioxide Anion Gap BUN Creatinine Est GFR ( Amer) Est GFR (Non-Af Amer) Glucose Calcium Total Bilirubin AST ALT Alkaline Phosphatase Total Protein Albumin Urine Color Urine Appearance Urine pH Ur Specific Dale Urine Protein Urine Glucose (UA) Urine Ketones Urine Blood Urine Nitrite Ur Leukocyte Esterase Urine WBC (Auto) Urine RBC (Auto) Impressions: Chest X-Ray 12/17/16 00:00 IMPRESSION: STABLE APPEARANCE OF THE CHEST. SUPPORT DEVICES UNCHANGED. Assessment & Plan - Diagnosis (1) Acute respiratory failure Qualifiers: Respiratory failure complication: hypoxia Qualified Code(s): J96.01 - Acute respiratory failure with hypoxia Is this a current diagnosis for this admission?: YesPlan: low fio2 requirement (2) Pneumonia Qualifiers: Pneumonia type: due to unspecified organism Laterality: right Lung location: lower lobe of lung Qualified Code(s): J18.9 - Pneumonia, unspecified organism Is this a current diagnosis for this admission?: YesPlan: no positive sputum cultures (3) Pressure ulcer of left heel, stage 4 Is this a current diagnosis for this admission?: Yes (4) COPD exacerbation Is this a current diagnosis for this admission?: YesPlan: continue brochodilator therapy (5) Urinary tract infection Qualifiers: Urinary tract infection type: site unspecified Hematuria presence: without hematuria Qualified Code(s): N39.0 - Urinary tract infection, site not specified Is this a current diagnosis for this admission?: YesPlan: GPC in urine - Time Critical Time spent with patient: 35 or more minutes - 55 min
--- NOTE | 2016-12-18 15:01 | PDOC PROGRESS REPORT ---
Subjective Progress Note for:: 12/18/16 Subjective:: awake responsive Physical Exam Vital Signs: Temp Pulse Resp BP Pulse Ox 98.4 F 91 14 119/74 100 12/18/16 08:00 12/18/16 08:00 12/18/16 08:00 12/18/16 08:00 12/18/16 08:00 Intake & Output 12/17/16 12/18/16 12/19/16 06:59 06:59 06:59 Intake Total 347 837 Output Total 870 1010 Balance -523 -173 Weight 58.4 kg 57.9 kg General appearance: PRESENT: no acute distress, disheveled, obese Head exam: PRESENT: atraumatic, normocephalic Eye exam: PRESENT: conjunctiva pink, EOMI Mouth exam: PRESENT: moist, neck supple, other - # 6 cuffed trach tube Neck exam: ABSENT: carotid bruit, JVD, lymphadenopathy, thyromegaly Respiratory exam: PRESENT: decreased breath sounds, prolonged expiratory phas, rales, rhonchi, symmetrical, unlabored Cardiovascular exam: PRESENT: RRR, +S1, +S2 Pulses: PRESENT: normal radial pulses GI/Abdominal exam: PRESENT: normal bowel sounds, soft. ABSENT: distended, guarding, mass, organolmegaly, rebound, tenderness Rectal exam: PRESENT: deferred Gentrourinary exam: PRESENT: indwelling catheter Extremities exam: PRESENT: other - R BKA Neurological exam: PRESENT: awake Skin exam: PRESENT: dry, warm Results Laboratory Results: 12/18/16 04:30 12/18/16 04:30 12/17/16 12/17/16 12/17/16 09:22 10:17 20:20 WBC RBC Hgb Hct MCV MCH MCHC RDW Plt Count Carbonic Acid 1.01 L 0.98 L HCO3/H2CO3 Ratio 21:1 22:1 ABG pH 7.43 7.45 ABG pCO2 33.7 L 32.4 L ABG pO2 95.4 75.8 L ABG HCO3 21.8 22.0 ABG O2 Saturation 97.5 95.9 ABG Base Excess -1.8 -1.3 FiO2 50% 60% Sodium 145.4 H Potassium 4.0 Chloride 112 H Carbon Dioxide 22 Anion Gap 11 BUN 51 H Creatinine 0.82 Est GFR ( Amer) > 60 Est GFR (Non-Af Amer) > 60 Glucose 168 H Calcium 11.2 H Total Bilirubin 0.7 AST 38 H ALT 59 H Alkaline Phosphatase 100 Total Protein 6.8 Albumin 3.5 12/18/16 12/18/16 12/18/16 04:30 04:30 06:15 WBC 12.8 H RBC 3.67 L Hgb 10.7 L Hct 32.4 L MCV 88 MCH 29.2 MCHC 33.1 RDW 15.0 H Plt Count 295 Carbonic Acid 0.95 L HCO3/H2CO3 Ratio 22:1 ABG pH 7.44 ABG pCO2 31.5 L ABG pO2 91.2 ABG HCO3 21.1 ABG O2 Saturation 97.3 ABG Base Excess -2.2 FiO2 40% Sodium 144.4 Potassium 3.8 Chloride 112 H Carbon Dioxide 23 Anion Gap 9 BUN 52 H Creatinine 0.84 Est GFR ( Amer) > 60 Est GFR (Non-Af Amer) > 60 Glucose 136 H Calcium 10.8 H Total Bilirubin 0.5 AST 34 ALT 53 H Alkaline Phosphatase 89 Total Protein 6.1 L Albumin 3.0 L Impressions: Chest X-Ray 12/18/16 06:00 IMPRESSION: Stable right basilar opacities having the appearance of pneumonia. Assessment & Plan - Diagnosis (1) Acute hypoxemic respiratory failure Is this a current diagnosis for this admission?: YesPlan: impoving (2) Pneumonia Qualifiers: Pneumonia type: due to unspecified organism Laterality: right Lung location: lower lobe of lung Qualified Code(s): J18.9 - Pneumonia, unspecified organism Is this a current diagnosis for this admission?: YesPlan: no positive sputum cultures (3) COPD exacerbation Is this a current diagnosis for this admission?: YesPlan: continue brochodilator therapy (4) Urinary tract infection Qualifiers: Urinary tract infection type: site unspecified Hematuria presence: without hematuria Qualified Code(s): N39.0 - Urinary tract infection, site not specified Is this a current diagnosis for this admission?: Yes - Time Critical Time spent with patient: 35 or more minutes - 40 min
[2016-12-19 07:02] LABS: HEMATOCRIT 33.1 % (36.0-47.0); HEMOGLOBIN 10.9 g/dL (12.0-15.5); HGB HCT DIFFERENCE -0.4; MEAN CORPUSCULAR HEMOGLOBIN 29.1 pg (27.0-33.4); MEAN CORPUSCULAR VOLUME 88 fl (80-97); RED BLOOD COUNT 3.75 10^6/uL (3.72-5.28); RED CELL DISTRIBUTION WIDTH 14.9 % (11.5-14.0); WHITE BLOOD COUNT 12.7 10^3/uL (4.0-10.5)
[2016-12-19 07:20] LABS: ANION GAP 13 (5-19); BLOOD UREA NITROGEN 49 mg/dL (7-20); CALCIUM 10.8 mg/dL (8.4-10.2); CARBON DIOXIDE 19 mmol/L (22-30); CHLORIDE 111 mmol/L (98-107); GLUCOSE 175 mg/dL (75-110); MAGNESIUM 2.2 mg/dL (1.6-2.3); PHOSPHORUS 3.3 mg/dL (2.5-4.5); POTASSIUM 3.7 mmol/L (3.6-5.0); SODIUM 143.1 mmol/L (137-145)
[2016-12-19 08:31] LABS: ARTERIAL BLOOD BASE EXCESS -5.1 mmol/L; ARTERIAL BLOOD O2 SATURATION 90.2 % (94-98)
[2016-12-19] MEDS: IPRATROPIUM/ALBUTEROL 0.5-2.5 MG/3 ML AMPUL NEB SCH ×3 (08:51→20:18)
--- NOTE | 2016-12-19 10:18 | PDOC PROGRESS REPORT ---
Subjective Progress Note for:: 12/19/16 Subjective:: Patient is currently doing fair patient was stressed ICU to the IMCU and currently on a portable went to the [facility] collar. Patient's white count is slightly elevated but no fever. Physical Exam Vital Signs: Temp Pulse Resp BP Pulse Ox 98.0 F 93 16 108/50 L 97 12/19/16 07:28 12/19/16 07:28 12/19/16 07:28 12/19/16 07:28 12/19/16 07:28 Intake & Output 12/18/16 12/19/16 12/20/16 06:59 06:59 06:59 Intake Total 300 633 Output Total 300 1110 Balance 0 -477 Weight 57.9 kg General appearance: PRESENT: no acute distress Head exam: PRESENT: normocephalic Eye exam: PRESENT: PERRLA Mouth exam: PRESENT: neck supple Neck exam: PRESENT: tracheostomy Respiratory exam: PRESENT: wheezes Cardiovascular exam: PRESENT: +S1, +S2 Extremities exam: ABSENT: pedal edema Neurological exam: PRESENT: alert, awake, oriented to person Results Laboratory Results: 12/19/16 06:42 12/19/16 06:42 12/19/16 12/19/16 12/19/16 06:30 06:42 06:42 WBC 12.7 H RBC 3.75 Hgb 10.9 L Hct 33.1 L MCV 88 MCH 29.1 MCHC 33.0 RDW 14.9 H Plt Count 310 Carbonic Acid 0.95 L HCO3/H2CO3 Ratio 19:1 ABG pH 7.40 ABG pCO2 31.4 L ABG pO2 57.5 L ABG HCO3 18.8 L ABG O2 Saturation 90.2 L ABG Base Excess -5.1 FiO2 30% Sodium 143.1 Potassium 3.7 Chloride 111 H Carbon Dioxide 19 L Anion Gap 13 BUN 49 H Creatinine 0.80 Est GFR ( Amer) > 60 Est GFR (Non-Af Amer) > 60 Glucose 175 H Calcium 10.8 H Phosphorus 3.3 Magnesium 2.2 Impressions: Chest X-Ray 12/19/16 06:00 IMPRESSION: Right basilar opacity. Consistent with pneumonia. Assessment & Plan - Diagnosis (1) Acute hypoxemic respiratory failure Is this a current diagnosis for this admission?: YesPlan: Currently underwent setting of pulmonary (2) Pneumonia Qualifiers: Pneumonia type: aspiration pneumonia Aspiration pneumonia type: unspecified Laterality: bilateral Lung location: lower lobe of lung Qualified Code(s): J69.0 - Pneumonitis due to inhalation of food and vomit Plan: Start the patient on IV cefepime to color more gram-positive and gram-negative organisms we'll get the sputum culture (3) Tracheostomy malfunction Is this a current diagnosis for this admission?: YesPlan: Currently stable - Time Time Spent with patient: 15-24 minutes Medications reviewed and adjusted accordingly: Yes Anticipated discharge: Other Within: Other - Inpatient Certification Medical Necessity: Need for IV Antibiotics Post Hospital Care: D/C Solution Advisor Documentation - Plan Summary Plan Summary: Change the IV antibiotic discussed with the family on the bedside continues to follow with the pulmonary
[2016-12-19] MEDS: ENOXAPARIN SODIUM INJ 30 MG/0.3 ML DISP.SYRIN SUBCUT SCH (10:59)
[2016-12-19] MEDS: FAMOTIDINE 20 MG TABLET PEG SCH (11:00)
[2016-12-19] MEDS: RISPERIDONE 0.25 MG TABLET PO SCH ×2 (11:00→18:54)
[2016-12-19] MEDS: MEMANTINE HCL 10 MG TABLET PEG SCH (11:01)
[2016-12-19] MEDS: SERTRALINE HCL 50 MG TABLET PO SCH (11:01)
[2016-12-19] MEDS: GABAPENTIN 100 MG CAPSULE PEG SCH (11:02)
[2016-12-19] MEDS ORDERED: CEFEPIME 1 GM/D5W RTU 1 GM/50 ML RTUPB IV ONE (12:00)
[2016-12-19] MEDS: INSULIN LISPRO 100 UNIT/ML 3 ML VIAL SUBCUT PRN ×2 (13:54→23:22)
[2016-12-19] MEDS: CEFEPIME 1 GM/D5W RTU 1 GM/50 ML RTUPB IV SCH (21:20)
[2016-12-20] MEDS: IPRATROPIUM/ALBUTEROL 0.5-2.5 MG/3 ML AMPUL NEB SCH ×3 (09:02→21:05)
[2016-12-20 09:31] LABS: HEMATOCRIT 29.7 % (36.0-47.0); HGB HCT DIFFERENCE 0.3; MEAN CORPUSCULAR HEMOGLOBIN 29.7 pg (27.0-33.4); MEAN CORPUSCULAR HGB CONC 33.8 g/dL (32.0-36.0); MEAN CORPUSCULAR VOLUME 88 fl (80-97); RED BLOOD COUNT 3.38 10^6/uL (3.72-5.28); WHITE BLOOD COUNT 12.6 10^3/uL (4.0-10.5)
[2016-12-20 09:48] LABS: ANION GAP 11 (5-19); BLOOD UREA NITROGEN 53 mg/dL (7-20); CALCIUM 10.2 mg/dL (8.4-10.2); CARBON DIOXIDE 20 mmol/L (22-30); CHLORIDE 111 mmol/L (98-107); CREATININE RESULT 0.73 mg/dL (0.52-1.25); GLUCOSE 143 mg/dL (75-110); SODIUM 142.4 mmol/L (137-145)
[2016-12-20] MEDS: GABAPENTIN 100 MG CAPSULE PEG SCH (11:09)
[2016-12-20] MEDS: RISPERIDONE 0.25 MG TABLET PO SCH ×2 (11:10→17:59)
[2016-12-20] MEDS: FAMOTIDINE 20 MG TABLET PEG SCH (11:10)
[2016-12-20] MEDS: MEMANTINE HCL 10 MG TABLET PEG SCH (11:10)
[2016-12-20] MEDS: ENOXAPARIN SODIUM INJ 30 MG/0.3 ML DISP.SYRIN SUBCUT SCH (11:10)
[2016-12-20] MEDS: CEFEPIME 1 GM/D5W RTU 1 GM/50 ML RTUPB IV SCH ×2 (11:13→22:31)
[2016-12-20] MEDS: SERTRALINE HCL 50 MG TABLET PO SCH ×2 (11:14→17:59)
[2016-12-20] MEDS ORDERED: SULFAMETHOXAZOLE/TRIMETHOPRIM 800-160 MG/20 ML UDCUP PO ONE (12:00)
[2016-12-20] MEDS: INSULIN LISPRO 100 UNIT/ML 3 ML VIAL SUBCUT PRN ×2 (14:58→18:06)
--- NOTE | 2016-12-20 16:28 | PDOC PROGRESS REPORT ---
Subjective Progress Note for:: 12/20/16 Subjective:: awake Physical Exam Vital Signs: Temp Pulse Resp BP Pulse Ox 97.5 F 69 26 H 103/60 100 12/20/16 07:21 12/20/16 07:21 12/20/16 07:21 12/20/16 07:21 12/20/16 07:21 Intake & Output 12/19/16 12/20/16 12/21/16 06:59 06:59 06:59 Intake Total 633 1560 Output Total 1110 900 Balance -477 660 General appearance: PRESENT: no acute distress, disheveled Head exam: PRESENT: atraumatic, normocephalic Eye exam: PRESENT: conjunctiva pale, EOMI Mouth exam: PRESENT: dry mucosa, neck supple Neck exam: ABSENT: carotid bruit, JVD, lymphadenopathy, thyromegaly Respiratory exam: PRESENT: decreased breath sounds, prolonged expiratory phas Cardiovascular exam: PRESENT: irregular rhythm Pulses: PRESENT: normal radial pulses GI/Abdominal exam: PRESENT: normal bowel sounds, soft. ABSENT: distended, guarding, mass, organolmegaly, rebound, tenderness Rectal exam: PRESENT: deferred Gentrourinary exam: PRESENT: indwelling catheter Neurological exam: PRESENT: awake Skin exam: PRESENT: dry, warm Results Laboratory Results: 12/20/16 09:05 12/20/16 09:05 12/20/16 12/20/16 09:05 09:05 WBC 12.6 H RBC 3.38 L Hgb 10.0 L Hct 29.7 L MCV 88 MCH 29.7 MCHC 33.8 RDW 15.0 H Plt Count 308 Sodium 142.4 Potassium 4.0 Chloride 111 H Carbon Dioxide 20 L Anion Gap 11 BUN 53 H Creatinine 0.73 Est GFR ( Amer) > 60 Est GFR (Non-Af Amer) > 60 Glucose 143 H Calcium 10.2 Impressions: Chest X-Ray 12/19/16 06:00 IMPRESSION: Right basilar opacity. Consistent with pneumonia. Assessment & Plan - Diagnosis (1) Acute hypoxemic respiratory failure Is this a current diagnosis for this admission?: No (2) Pneumonia Qualifiers: Pneumonia type: due to unspecified organism Laterality: right Lung location: lower lobe of lung Qualified Code(s): J18.1 - Lobar pneumonia, unspecified organism Is this a current diagnosis for this admission?: No (3) COPD exacerbation Is this a current diagnosis for this admission?: YesPlan: continue brochodilator therapy (4) Urinary tract infection Qualifiers: Urinary tract infection type: site unspecified Hematuria presence: without hematuria Qualified Code(s): N39.0 - Urinary tract infection, site not specified Is this a current diagnosis for this admission?: No (5) MRSA (methicillin resistant staph aureus) culture positive Is this a current diagnosis for this admission?: YesPlan: septrad s po bid
--- NOTE | 2016-12-20 20:15 | PDOC PROGRESS REPORT ---
Subjective Progress Note for:: 12/20/16 Subjective:: Patient developed ventilator associated pneumonia over the weekend and she is now on antibiotic for that. Patient's daughter does not want her mother taking any antipsychotic drug because she said it made confused and hallucinates she also wants the timing of the dietary change to be 8 AM , 4 PM and 12 midnight Physical Exam Vital Signs: Temp Pulse Resp BP Pulse Ox 97.8 F 126 H 22 H 156/68 H 94 12/20/16 15:35 12/20/16 15:35 12/20/16 15:35 12/20/16 15:35 12/20/16 17:30 Intake & Output 12/19/16 12/20/16 12/21/16 06:59 06:59 06:59 Intake Total 633 1560 1410 Output Total 1110 900 300 Balance -992 189 8356 General appearance: PRESENT: no acute distress Eye exam: PRESENT: PERRLA Respiratory exam: PRESENT: clear to auscultation monica Cardiovascular exam: PRESENT: +S1, +S2 GI/Abdominal exam: PRESENT: soft Neurological exam: PRESENT: alert Results Laboratory Results: 12/20/16 09:05 12/20/16 09:05 12/20/16 12/20/16 09:05 09:05 WBC 12.6 H RBC 3.38 L Hgb 10.0 L Hct 29.7 L MCV 88 MCH 29.7 MCHC 33.8 RDW 15.0 H Plt Count 308 Sodium 142.4 Potassium 4.0 Chloride 111 H Carbon Dioxide 20 L Anion Gap 11 BUN 53 H Creatinine 0.73 Est GFR ( Amer) > 60 Est GFR (Non-Af Amer) > 60 Glucose 143 H Calcium 10.2 12/18/16 10:40 Tracheal Aspirate Gram Stain - Final 12/18/16 10:40 Tracheal Aspirate Sputum Culture - Final Mrsa (Meth Resis Staph Aureus) Normal Nan Absent Impressions: Chest X-Ray 12/19/16 06:00 IMPRESSION: Right basilar opacity. Consistent with pneumonia. Assessment & Plan - Diagnosis (1) Acute hypoxemic respiratory failure Is this a current diagnosis for this admission?: Yes (2) Tracheostomy malfunction Is this a current diagnosis for this admission?: Yes - Plan Summary Plan Summary: She will continue antibiotic for pneumonia, vent support and the Risperdal was discontinued
[2016-12-20 20:43] LABS: CALCIUM 10.4 mg/dL (8.4-10.2); CHLORIDE 113 mmol/L (98-107); CREATININE RESULT 0.68 mg/dL (0.52-1.25); MAGNESIUM 2.2 mg/dL (1.6-2.3); POTASSIUM 4.2 mmol/L (3.6-5.0)
[2016-12-20 20:49] LABS: ANION GAP 11 (5-19); BLOOD UREA NITROGEN 50 mg/dL (7-20); CARBON DIOXIDE 21 mmol/L (22-30); CREATINE KINASE 22 U/L (30-135); GLUCOSE 104 mg/dL (75-110)
[2016-12-20 21:01] LABS: CREATINE KINASE MB 0.93 ng/mL (<4.55)
[2016-12-20 21:02] LABS: TROPONIN I < 0.012 ng/mL
[2016-12-20] MEDS: SULFAMETHOXAZOLE/TRIMETHOPRIM 800-160 MG/20 ML UDCUP PO SCH (22:31)
--- NOTE | 2016-12-21 00:19 | EKG REPORT ---
SEVERITY:- ABNORMAL ECG - SINUS TACHYCARDIA LEFT ATRIAL ABNORMALITY LEFT VENTRICULAR HYPERTROPHY ANTERIOR Q WAVES, POSSIBLY DUE TO LVH BORDERLINE PROLONGED QT INTERVAL : Confirmed by: Mirella Marrero 21-Dec-2016 00:17:41
[2016-12-21] MEDS: INSULIN LISPRO 100 UNIT/ML 3 ML VIAL SUBCUT PRN (06:29)
[2016-12-21 07:00] LABS: HEMATOCRIT 30.2 % (36.0-47.0); HGB HCT DIFFERENCE -0.2; MEAN CORPUSCULAR HEMOGLOBIN 29.5 pg (27.0-33.4); MEAN CORPUSCULAR HGB CONC 33.3 g/dL (32.0-36.0); MEAN CORPUSCULAR VOLUME 89 fl (80-97); RED BLOOD COUNT 3.41 10^6/uL (3.72-5.28); RED CELL DISTRIBUTION WIDTH 15.3 % (11.5-14.0); WHITE BLOOD COUNT 12.5 10^3/uL (4.0-10.5)
[2016-12-21 07:26] LABS: ANION GAP 12 (5-19); BLOOD UREA NITROGEN 53 mg/dL (7-20); CALCIUM 10.2 mg/dL (8.4-10.2); CARBON DIOXIDE 19 mmol/L (22-30); CHLORIDE 113 mmol/L (98-107); CREATININE RESULT 0.77 mg/dL (0.52-1.25); GLUCOSE 177 mg/dL (75-110); POTASSIUM 4.4 mmol/L (3.6-5.0); SODIUM 143.5 mmol/L (137-145)
[2016-12-21] MEDS: ENOXAPARIN SODIUM INJ 30 MG/0.3 ML DISP.SYRIN SUBCUT SCH (08:45)
[2016-12-21] MEDS: IPRATROPIUM/ALBUTEROL 0.5-2.5 MG/3 ML AMPUL NEB SCH ×3 (08:46→20:50)
[2016-12-21] MEDS: CEFEPIME 1 GM/D5W RTU 1 GM/50 ML RTUPB IV SCH (11:40)
[2016-12-21] MEDS: FAMOTIDINE 20 MG TABLET PEG SCH (11:41)
[2016-12-21] MEDS: MEMANTINE HCL 10 MG TABLET PEG SCH (11:42)
[2016-12-21] MEDS: GABAPENTIN 100 MG CAPSULE PEG SCH (11:42)
[2016-12-21] MEDS: SULFAMETHOXAZOLE/TRIMETHOPRIM 800-160 MG/20 ML UDCUP PO SCH ×2 (11:42→21:54)
--- NOTE | 2016-12-21 21:05 | PDOC TRANSFER SUMMARY ---
General Admission Date/PCP: 12/17/16 20:33 BAKARI BECKER MD Transfer Date: 12/22/16 Resuscitation Status: Full Code - Transfer Diagnosis (1) Acute hypoxemic respiratory failure Is this a current diagnosis for this admission?: Yes (2) Tracheostomy malfunction Is this a current diagnosis for this admission?: Yes (3) Ventilator associated pneumonia Is this a current diagnosis for this admission?: Yes (4) MRSA pneumonia Is this a current diagnosis for this admission?: Yes - Transfer Medications Home Medications: Amlodipine Besylate [Norvasc 10 mg Tablet] 10 mg PO DAILY 12/16/16 Ascorbic Acid [Vitamin C 500 mg Tablet] 500 mg PO DAILY 12/16/16 Atorvastatin Calcium [Lipitor 10 mg Tablet] 10 mg PO DAILY 12/16/16 Famotidine [Pepcid 40 mg Tablet] 40 mg PO QHS 12/16/16 Gabapentin [Neurontin 100 mg Capsule] 200 mg PO DAILY 12/16/16 Insulin Detemir [Levemir Flextouch] 5 unit SQ DAILY 12/16/16 Ipratropium/Albuterol Sulfate [Iprat-Albut 0.5-3(2.5) mg/3 ml] 3 ml NEB Q6HP PRN 12/16/16 Losartan Potassium [Cozaar 100 mg Tablet] 100 mg PO DAILY 12/16/16 Memantine HCl [Namenda 10 mg Tablet] 10 mg PO DAILY 12/16/16 Ondansetron HCl [Zofran 4 mg Tablet] 4 mg PO TIDP PRN 12/16/16 Transfer Medications: Current Medications Albuterol (Ventolin 0.083% Neb 2.5 Mg/3 Ml Ampul) 2.5 mg NEB RTQ4HP PRN PRN Reason: WHEEZING Stop: 01/16/17 19:13 Last Admin: 12/18/16 10:38 Dose: 2.5 mg Albuterol/Ipratropium (Duoneb 3 Ml Ampul) 3 ml NEB [id number] CORRINA Stop: 01/17/17 13:59 Last Admin: 12/21/16 20:50 Dose: 3 ml Dextrose (Dextrose Inj 50% Syringe (25 Gm/50 Ml)) 12.5 gm IV PRN PRN; Protocol PRN Reason: FOR BG 50-69 IN ALERT PATIENT Stop: 01/15/17 13:08 Dextrose (Dextrose Inj 50% Syringe (25 Gm/50 Ml)) 25 gm IV PRN PRN PRN Reason: Protocol Stop: 01/15/17 13:08 Enoxaparin Sodium (Lovenox Inj 30 Mg/0.3 Ml Disp.Syrin) 30 mg SUBCUT QAM [facility] Stop: 01/15/17 07:59 Last Admin: 12/21/16 08:45 Dose: 30 mg Famotidine (Pepcid 20 Mg Tablet) 40 mg PEG DAILY [facility] Stop: 01/17/17 09:59 Last Admin: 12/21/16 11:41 Dose: 40 mg Gabapentin (Neurontin 100 Mg Capsule) 200 mg PEG DAILY [facility] Stop: 01/17/17 09:59 Last Admin: 12/21/16 11:42 Dose: 200 mg Glucagon (Glucagen Inj 1 Mg Vial) 1 mg IM PRN PRN; Protocol PRN Reason: EVALUATE FOR BG < 70 Stop: 01/15/17 13:08 Glucose (Glutose 40% Gel 15 Gm Tube) 15 gm PO PRN PRN; Protocol PRN Reason: FOR BG 50-69 IN ALERT PATIENT Stop: 01/15/17 13:08 Glucose (Glutose 40% Gel 15 Gm Tube) 30 gm PO PRN PRN; Protocol PRN Reason: FOR BG < 50 IN ALERT PATIENT Stop: 01/15/17 13:08 Insulin Human Lispro (Humalog Insulin 100 Unit/1 Ml 3 Ml Vial) 0 - 12 unit SUBCUT Q6HP PRN PRN Reason: Protocol Stop: 01/15/17 13:10 Last Admin: 12/21/16 06:29 Dose: 2 unit Memantine (Namenda 10 Mg Tablet) 10 mg PEG DAILY [facility] Stop: 01/17/17 09:59 Last Admin: 12/21/16 11:42 Dose: 10 mg Ondansetron HCl (Zofran Inj/Pf 4 Mg/2 Ml Sdv) 4 mg IV Q4HP PRN PRN Reason: NAUSEA Stop: 01/15/17 16:07 Oxycodone/Acetaminophen (Percocet 5-325 Mg Tablet) 1 tab PO Q6HP PRN Stop: 12/25/16 09:53 Sodium Chloride (Saline Flush 2.5 Ml Monoject Prefil Syrin) 2.5 ml IV Q8 [facility] Stop: 01/15/17 05:59 Last Admin: 12/21/16 17:07 Dose: Not Given Trimethoprim/Sulfamethoxazole (Septra Susp 800-160 Mg/20 Ml Udcup) 20 ml PO Q12 CORRINA Stop: 12/27/16 21:59 Last Admin: 12/21/16 11:42 Dose: 20 ml - Allergies Allergies/Adverse Reactions: alprazolam [From Xanax] Allergy (Verified 12/16/16 00:48) iodine [Iodine] Allergy (Verified 12/16/16 00:48) quetiapine fumarate [From Seroquel] Allergy (Verified 12/16/16 00:48) Hospital Course Hospital Course: Patient 81-year-old female with multiple comorbid conditions she was initially admitted and discharged from this hospital on December 12, 2016 time she was admitted for oxygen desaturation due to tracheal dysfunction at that time it was felt that she may have pneumonia but a chest x-ray was negative for any acute infiltrate or consolidation to suggest pneumonia. She was brought to the emergency room because of a low oxygen saturation, the pulse oximetry revealed SaO2 in the low 80s in the emergency room attempt was made to adequately maintain oxygenation but she required high volume oxygen because of that admission was advised. She was admitted initially for observation on the floor but she decompensated she was transferred to intensive care unit on mechanical ventilation. The ICU admission was complicated with ventilator associated pneumonia, sputum culture grew MRSA and she is presently on Bactrim. Urine culture grew VRE but the count was not significant. She was seen by pulmonary and the plan for [facility] for gradual weaning process. Physical Exam Vital Signs: Temp Pulse Resp BP Pulse Ox 98.4 F 99 20 130/65 H 98 12/21/16 15:59 12/21/16 16:00 12/21/16 15:59 12/21/16 15:59 12/21/16 16:30 Intake & Output 12/20/16 12/21/16 12/22/16 06:59 06:59 06:59 Intake Total 1560 1925 1260 Output Total 900 875 550 Balance 660 1050 710 General appearance: PRESENT: no acute distress Eye exam: PRESENT: PERRLA Cardiovascular exam: PRESENT: +S1 GI/Abdominal exam: PRESENT: soft Neurological exam: PRESENT: alert Results Laboratory Results: 12/21/16 06:40 12/21/16 06:26 12/21/16 12/21/16 06:26 06:40 WBC 12.5 H RBC 3.41 L Hgb 10.0 L Hct 30.2 L MCV 89 MCH 29.5 MCHC 33.3 RDW 15.3 H Plt Count 314 Sodium 143.5 Potassium 4.4 Chloride 113 H Carbon Dioxide 19 L Anion Gap 12 BUN 53 H Creatinine 0.77 Est GFR ( Amer) > 60 Est GFR (Non-Af Amer) > 60 Glucose 177 H Calcium 10.2 12/20/16 12/20/16 19:57 19:57 Creatine Kinase 22 L CK-MB (CK-2) 0.93 Troponin I < 0.012 Impressions: Chest X-Ray 12/19/16 06:00 IMPRESSION: Right basilar opacity. Consistent with pneumonia.
[2016-12-22] MEDS: INSULIN LISPRO 100 UNIT/ML 3 ML VIAL SUBCUT PRN (01:40)
[2016-12-22] MEDS: ENOXAPARIN SODIUM INJ 30 MG/0.3 ML DISP.SYRIN SUBCUT SCH (08:21)
[2016-12-22] MEDS: IPRATROPIUM/ALBUTEROL 0.5-2.5 MG/3 ML AMPUL NEB SCH (09:13)
[2016-12-22] MEDS: SULFAMETHOXAZOLE/TRIMETHOPRIM 800-160 MG/20 ML UDCUP PO SCH (10:51)
[2016-12-22] MEDS: FAMOTIDINE 20 MG TABLET PEG SCH (10:52)
[2016-12-22] MEDS: MEMANTINE HCL 10 MG TABLET PEG SCH (10:52)
[2016-12-22] MEDS: GABAPENTIN 100 MG CAPSULE PEG SCH (10:52)
[2016-12-22 11:34] VITALS: BP 121/52
== END 2016-12-22 12:35 | DRG 207 ==
LOC: ER 21:05 → UNDOADMOB 12-16 00:46 → EH 12-16 00:46 → 4N 12-16 13:40 → ICU 12-16 17:26 → OBSVTOIN 12-17 20:33 → 3S 12-18 21:57
PROVIDERS: ADMIT Internal Medicine; ATTEND Internal Medicine
PROC: 5A1955Z Respiratory Ventilation, Greater than 96 Consecutive Hours (ICD-10-PCS; principal; 2016-12-16)
PROC: 0B21XFZ Change Tracheostomy Device in Trachea, External Approach (ICD-10-PCS; 2016-12-16)
DX: J96.01 Acute respiratory failure with hypoxia (principal); J95.03 Malfunction of tracheostomy stoma; J95.851 Ventilator associated pneumonia; I50.32 Chronic diastolic (congestive) heart failure; J44.1 Chronic obstructive pulmonary disease with (acute) exacerbation; B95.62 Methicillin resistant Staphylococcus aureus infection as the cause of diseases classified elsewhere; I11.0 Hypertensive heart disease with heart failure; E78.5 Hyperlipidemia, unspecified; I73.9 Peripheral vascular disease, unspecified; E11.9 Type 2 diabetes mellitus without complications; F03.90 Unspecified dementia, unspecified severity, without behavioral disturbance, psychotic disturbance, mood disturbance, and anxiety; E86.0 Dehydration; Z89.611 Acquired absence of right leg above knee; Z87.891 Personal history of nicotine dependence; Z88.8 Allergy status to other drugs, medicaments and biological substances; Z79.4 Long term (current) use of insulin; Z79.899 Other long term (current) drug therapy; Z93.1 Gastrostomy status
CPT/HCPCS: 36415; 36600; 71010; 80048; 80053; 81001; 82550; 82553; 82803; 82962; 83735; 84100; 84484; 85025; 85027; 85379; 87070; 87077; 87086; 87088; 87186; 87205; 93005; 93010; 94002; 94003; 94640; 96360; 99285; G0378; J0692; J0696; J1650; J1815; J3490; J7030; J7620

== ENCOUNTER 2017-03-04 14:40 | Emergency (ER) | payer MEDICARE, MEDICAID ==
[2017-03-04] MEDS ORDERED: ASPIRIN 81 MG TABLET, CHEWABLE PO ONE (15:30)
--- NOTE | 2017-03-04 15:31 | ER Document Report ---
ED General - General Mode of Arrival: Ambulatory Information source: Patient TRAVEL OUTSIDE OF THE [place] IN LAST 30 DAYS: No - HPI Onset: Other - Refer to HPI notes Similar symptoms previously: Yes Recently seen / treated by doctor: No <RETA JAIN - Last Filed: 03/04/17 21:56> <BLANE MOSER - Last Filed: 03/05/17 01:01> - General Stated Complaint: WEAKNESS Time Seen by Provider: 03/04/17 15:05 Notes: Patient is an 81 year old female with a GI tube and tracheostomy presenting to the ED with her daughter via EMS for general weakness and difficulty breathing. Patient was given baby food by mouth a few days ago and the patient has a GI tube and is not supposed to receive food PO. Patient has not been cleared for PO food due to not having a swallow screen. Daughter reports increased secretions from her tracheostomy. Patient also has been weak and somewhat short of breath. Patient is on home O2 of 4 L. Daughter states they are working to get her back down to 3.5 L. Daughter is the catalyst operator gasoline of the patient along with home nursing that comes during the day. Patient also has a cough. Patient has been on and off a ventilator over the past year. Patient had a tracheostomy placed due to an aspiration with pneumonia. (RETA JAIN) - Related Data Allergies/Adverse Reactions: alprazolam [From Xanax] Allergy (Verified 12/16/16 00:48) iodine [Iodine] Allergy (Verified 12/16/16 00:48) quetiapine fumarate [From Seroquel] Allergy (Verified 12/16/16 00:48) Past Medical History - General Information source: Relative - Social History Smoking Status: Never Smoker Cigarette use (# per day): No Chew tobacco use (# tins/day): No Frequency of alcohol use: None Drug Abuse: None Family History: None Patient has suicidal ideation: No Patient has homicidal ideation: No - Past Medical History Cardiac Medical History: Reports: Hx Congestive Heart Failure, Hx Hypercholesterolemia, Hx Hypertension, Hx Peripheral Vascular Disease Pulmonary Medical History: Reports: Hx COPD Endocrine Medical History: Reports: Hx Diabetes Mellitus Type 2 Psychiatric Medical History: Reports: Hx Dementia Past Surgical History: Reports: Hx Abdominal Surgery - GI tube, Hx Orthopedic Surgery - Shoulder. 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., Other - tracheostomy - Immunizations Hx Diphtheria, Pertussis, Tetanus Vaccination: Yes <RETA JAIN - Last Filed: 03/04/17 21:56> Review of Systems - Review of Systems Constitutional: No symptoms reported EENT: No symptoms reported Cardiovascular: No symptoms reported Respiratory: No symptoms reported Gastrointestinal: See HPI Genitourinary: No symptoms reported Female Genitourinary: No symptoms reported Musculoskeletal: No symptoms reported Skin: No symptoms reported Hematologic/Lymphatic: No symptoms reported Neurological/Psychological: See HPI, Weakness -: Yes All other systems reviewed and negative <CRYSTALHUBER ASCENCIOINE - Last Filed: 03/04/17 21:56> Physical Exam <SUSYRETA - Last Filed: 03/04/17 21:56> <BLANE MOSER - Last Filed: 03/05/17 01:01> - Vital signs Vitals: Resp 20 03/04/17 14:53 - Notes Notes: GENERAL: Alert, interacts well. No acute distress. HEAD: Normocephalic, atraumatic. EYES: Pupils equal, round, and reactive to light. Extraocular movements intact. Injected conjunctiva. ENT: Oral mucosa moist, tongue midline. NECK: Full range of motion. Supple. Tracheostomy in good position. LUNGS: Crackles to the lower lobes bilaterally worse on the right. Occasional rhonchi the the right upper lobe. No respiratory distress. HEART: Regular rate and rhythm. No murmurs, gallops, or rubs. ABDOMEN: Soft, non-tender. Non-distended. Bowel sounds present in all 4 quadrants. EXTREMITIES: Right AKA with well healed incision. No edema, radial and dorsalis pedis pulses 2/4 bilaterally. No cyanosis. NEUROLOGICAL: Alert. Nonverbal. PSYCH: Normal affect, normal mood. SKIN: Warm, dry, normal turgor. Ecchymosis at various stages of healing. Skin breakdown to the left malleolus of the heel, no surrounding erythema. Well- healed pressure ulcer to left heel. (RETA JAIN) Course - Laboratory Result Diagrams: 03/04/17 16:25 03/04/17 15:16 <RETA JAIN - Last Filed: 03/04/17 21:56> - Laboratory Result Diagrams: 03/04/17 16:25 03/04/17 15:16 <BLANE MOSER - Last Filed: 03/05/17 01:01> - Re-evaluation Re-evalutation: 03/05/17 00:02 CBC has leukocytosis of 14.9 and platelets slightly elevated at 463 otherwise unremarkable, CMP has an elevated BUN at 51, glucose elevated 178, calcium elevated at 111.6, AST ALT and alkaline phosphatase are all minimally elevated, cardiac enzymes negative, chest x-ray actually shows improvement compared to the last one. No evidence of acute pneumonia, no evidence of congestive heart failure. EKG is nonischemic. Patient was given nebulized saline 3% multiple times which helped soften up the mucus in her tracheostomy, daughter was able to suction large amounts of mucus out and she is now back down to her usual 3-1/2 L via humidified cough without difficulty. Patient is feeling much better. Patient will be discharged to home with a prescription for 10 ampules of 3% saline. They will suction her and nebulized the saline every 6 hours as needed. Discharged home. (BLANE MOSER) - Vital Signs Vital signs: Temp Pulse Resp BP Pulse Ox 21 H 131/66 H 94 03/04/17 18:01 03/04/17 18:00 03/04/17 18:01 - Laboratory Laboratory results interpreted by me: 03/04/17 03/04/17 15:16 16:25 WBC 14.9 H RDW 14.7 H Plt Count 463 H Absolute Neutrophils 8.8 H Absolute Eosinophils 0.7 H BUN 51 H Glucose 178 H Calcium 11.6 H AST 62 H ALT 82 H Alkaline Phosphatase 172 H Creatine Kinase 21 L Total Protein 9.5 H - EKG Interpretation by Me Additional EKG results interpreted by me: 03/05/17 00:05 EKG shows sinus rhythm rate 91, first-degree AV block, left bundle branch block , ST segment elevations per my interpretation. (BLANE MOSER) Discharge <RETA JAIN - Last Filed: 03/04/17 21:56> <BLANE MOSER - Last Filed: 03/05/17 01:01> - Discharge Clinical Impression: Tracheostomy obstruction Aspiration into airway Qualifiers: Encounter type: initial encounter Qualified Code(s): T17.908A - Unspecified foreign body in respiratory tract, part unspecified causing other injury, initial encounter Condition: Stable Disposition: HOME, SELF-CARE Additional Instructions: Use the saline in her nebulizer the same way with the albuterol. This does not replace the albuterol it will simply make the mucus easier to suction out. May use it up to 4 times a day. Referrals: BAKARI BECKER MD [Primary Care Provider] - Follow up as needed Scribe Attestation: 03/05/17 01:01 I personally performed the services described in the documentation, reviewed and edited the documentation which was dictated to the scribe in my presence, and it accurately records my words and actions. (BLANE MOSER) Scribe Documentation - Scribe Written by Miguel Ángel:: Miguel Ángel Jones 03/04/17 21:55 acting as scribe for :: Douglas <RETA JAIN - Last Filed: 03/04/17 21:56>
[2017-03-04] MEDS ORDERED: SODIUM CHLORIDE 3% FOR INHALATION 15 ML AMPUL NEB PRN ×3 (15:32→23:58)
[2017-03-04] MEDS ORDERED: ALBUTEROL SULFATE 0.083% NEB 2.5 MG/3 ML AMPUL NEB ONE ×2 (15:32→23:58)
[2017-03-04 15:53] LABS: ALANINE AMINOTRANSFERASE 82 U/L (9-52); ALBUMIN 4.3 g/dL (3.5-5.0); ALKALINE PHOSPHATASE 172 U/L (38-126); ANION GAP 16 (5-19); ASPARTATE AMINO TRANSFERASE 62 U/L (14-36); BILIRUBIN,DIRECT 0.4 mg/dL (0.0-0.4); BILIRUBIN,TOTAL 0.4 mg/dL (0.2-1.3); BLOOD UREA NITROGEN 51 mg/dL (7-20); CALCIUM 11.6 mg/dL (8.4-10.2); CARBON DIOXIDE 23 mmol/L (22-30); CHLORIDE 105 mmol/L (98-107); CREATINE KINASE 21 U/L (30-135); CREATININE RESULT 0.74 mg/dL (0.52-1.25); GLUCOSE 178 mg/dL (75-110); POTASSIUM 4.3 mmol/L (3.6-5.0); SODIUM 143.7 mmol/L (137-145); TOTAL PROTEIN 9.5 g/dL (6.3-8.2)
[2017-03-04 16:05] LABS: TROPONIN I < 0.012 ng/mL
[2017-03-04 16:38] LABS: ABSOLUTE BASOPHILS # (AUTO) 0.1 10^3/uL (0.0-0.2); ABSOLUTE EOSINOPHILS # (AUTO) 0.7 10^3/uL (0.0-0.6); ABSOLUTE LYMPHOCYTES (AUTO) 4.1 10^3/uL (0.5-4.7); ABSOLUTE MONOCYTES (AUTO) 1.2 10^3/uL (0.1-1.4); ABSOLUTE NEUT (AUTO) 8.8 10^3/uL (1.7-8.2); EOSINOPHILS % (AUTO) 4.8 % (0-6); HEMATOCRIT 42.1 % (36.0-47.0); HEMOGLOBIN 13.7 g/dL (12.0-15.5); LYMPHOCYTES % (AUTO) 27.2 % (13-45); MEAN CORPUSCULAR HEMOGLOBIN 28.8 pg (27.0-33.4); MEAN CORPUSCULAR HGB CONC 32.6 g/dL (32.0-36.0); MEAN CORPUSCULAR VOLUME 88 fl (80-97); MONOCYTES % (AUTO) 8.3 % (3-13); RED BLOOD COUNT 4.76 10^6/uL (3.72-5.28); RED CELL DISTRIBUTION WIDTH 14.7 % (11.5-14.0); SEGMENTED NEUTROPHILS % (AUTO) 58.7 % (42-78); WHITE BLOOD COUNT 14.9 10^3/uL (4.0-10.5)
--- NOTE | 2017-03-04 17:09 | RADIOLOGY REPORT (SQ) ---
EXAM DESCRIPTION: CHEST SINGLE VIEW COMPLETED DATE/TIME: 03/04/2017 4:58 pm REASON FOR STUDY: SOB after possibly aspirating babyfood COMPARISON: 12/18/2016 NUMBER OF VIEWS: One view. TECHNIQUE: Single frontal radiographic view of the chest acquired. LIMITATIONS: None. FINDINGS: LUNGS AND PLEURA: No new pulmonary infiltrates noted. Partial clearing right lung base si nce prior study with minor linear markings persisting. elevated right hemidiaphragm. MEDIASTINUM AND HILAR STRUCTURES: Stable HEART AND VASCULAR STRUCTURES: Heart stable. No overt CHF. BONES: No acute findings. HARDWARE: Tracheostomy tube OTHER: No other significant finding. IMPRESSION: No developing pulmonary infiltrates. Partial clearing right lung base from prior study. Tracheostomy tube elevated right hemidiaphragm no rahul. TECHNICAL DOCUMENTATION: JOB ID: [id number] [employer]- All Rights Reserved
[2017-03-05] MEDS ORDERED: SODIUM CHLORIDE 3% FOR INHALATION 15 ML AMPUL NEB PRN (00:10)
[2017-03-05] MEDS ORDERED: GABAPENTIN 100 MG CAPSULE PEG ONE (02:23)
[2017-03-05 12:34] VITALS: BP 142/76
--- NOTE | 2017-03-07 09:56 | EKG REPORT ---
SEVERITY:- ABNORMAL ECG - SINUS RHYTHM FIRST DEGREE AV BLOCK LEFT BUNDLE BRANCH BLOCK : Confirmed by: Mirella Marrero 07-Mar-2017 09:54:36
== END 2017-03-05 12:45 | disposition home or self-care (01) ==
LOC: ER 14:40
DX: J95.03 Malfunction of tracheostomy stoma (principal); T17.908A Unspecified foreign body in respiratory tract, part unspecified causing other injury, initial encounter; R53.1 Weakness
CPT/HCPCS: 93005; 94640 ×2; 99285; 36415; 82553; 82962; 82550; 85025; 80053; 84484; 71010; 93010; A9270 ×3; J3490 ×2

== ENCOUNTER → 2017-04-06 | Outpatient (CLI) | payer MEDICARE, MEDICAID ==
--- NOTE | 2017-04-06 16:19 | RADIOLOGY REPORT (SQ) ---
EXAM DESCRIPTION: CHEST PA/LAT COMPLETED DATE/TIME: 04/06/2017 3:24 pm REASON FOR STUDY: OSTEOMYELITIS OF FOOT; COUGH COMPARISON: 03/04/2017 EXAM PARAMETERS: NUMBER OF VIEWS: two views TECHNIQUE: Digital Frontal and Lateral radiographic views of the chest acquired. RADIATION DOSE: NA LIMITATIONS: none FINDINGS: LUNGS AND PLEURA: There is elevation of the right hemidiaphragm. No definite effusions. Minimal left basilar atelectasis. Tracheostomy tube remains in place. MEDIASTINUM AND HILAR STRUCTURES: No masses or contour abnormalities. HEART AND VASCULAR STRUCTURES: Heart normal size. No evidence for failure. BONES: No acute findings. HARDWARE: None in the chest. OTHER: No other significant finding. IMPRESSION: No significant interval change in the chest. Tracheostomy tube remains in place. TECHNICAL DOCUMENTATION: JOB ID: [id number] [employer]- All Rights Reserved
--- NOTE | 2017-04-06 16:26 | RADIOLOGY REPORT (SQ) ---
EXAM DESCRIPTION: FOOT LEFT COMPLETE COMPLETED DATE/TIME: 04/06/2017 3:24 pm REASON FOR STUDY: OSTEOMYELITIS OF FOOT; COUGH M86.9 OSTEOMYELITIS, UNSPECIFIED R05 COUGH COMPARISON: None. NUMBER OF VIEWS: Three views. TECHNIQUE: AP, lateral and oblique radiographic images acquired of the left foot. LIMITATIONS: None. FINDINGS: MINERALIZATION: Osteoporosis. BONES: No acute fracture. Plantar and dorsal calcaneal spurs are present. There is a small area whe re the cortex appears to be discontinuous. JOINTS: No effusions. SOFT TISSUES: No soft tissue swelling. No foreign body. OTHER: No other significant finding. IMPRESSION: Calcaneal spurs. Osteomyelitis cannot be ruled out. Osteoporosis. TECHNICAL DOCUMENTATION: JOB ID: [id number] [employer]- All Rights Reserved
== END ==
LOC: RAD 14:39
PROVIDERS: ATTEND Internal Medicine Pulmonary Disease
DX: R05 Cough (principal); M86.9 Osteomyelitis, unspecified; M77.32 Calcaneal spur, left foot; M81.0 Age-related osteoporosis without current pathological fracture; Z93.0 Tracheostomy status
CPT/HCPCS: 71020

== ENCOUNTER → 2017-05-05 | Outpatient (CLI) | payer MEDICARE, MEDICAID ==
--- NOTE | 2017-05-05 17:19 | RADIOLOGY REPORT (SQ) ---
EXAM DESCRIPTION: KUB/ABDOMEN (SINGLE VIEW) COMPLETED DATE/TIME: 05/05/2017 1:43 pm REASON FOR STUDY: CHANGE IN BOWEL HABITS (R19.4), ABD PAIN (R10.9) R19.4 CHANGE IN BOWEL HABIT R10. 9 UNSPECIFIED ABDOMINAL PAIN COMPARISON: Chest films 04/06/2017 NUMBER OF VIEWS: One view. TECHNIQUE: Supine radiographic image of the abdomen acquired. LIMITATIONS: None. FINDINGS: BOWEL GAS PATTERN: Gastrostomy tube in the left upper quadrant. Moderate amount of stool throughout the colon. No dilated loops worrisome for small bowel obstructio n or colon obstruction. CALCIFICATIONS: No suspicious calcifications. SOFT TISSUES: No gross mass or suggestion of organomegaly. Distended urinary bladder with faintly ra diopaque urine, question prior CT or MRI exam recently HARDWARE: Bilateral common iliac artery stent, left hip replacement BONES: Osteoporotic OTHER: No other significant finding. IMPRESSION: Grossly nonobstructive bowel gas pattern. Left upper quadrant gastrostomy tube. TECHNICAL DOCUMENTATION: JOB ID: [id number] [employer]- All Rights Reserved
== END ==
LOC: RAD 13:28
PROVIDERS: ATTEND Internal Medicine Gastroenterology
DX: R10.9 Unspecified abdominal pain (principal); R19.4 Change in bowel habit
CPT/HCPCS: 74000; 81001; 87045; 87205; 87493

== ENCOUNTER 2017-05-12 17:56 | Emergency (ER) | payer MEDICARE, MEDICAID ==
--- NOTE | 2017-05-12 18:32 | ER Document Report ---
ED General - General Stated Complaint: DIFFICULTY BREATHING Time Seen by Provider: 05/12/17 18:18 Mode of Arrival: Stretcher Information source: Relative Notes: This is an 81-year-old female with a history of dementia, diabetes, CHF, COPD ( oxygen dependent on 3-4 L nasal cannula, with trach). Patient is brought in by EMS because of shortness of breath and possible aspiration after vomiting at home. TRAVEL OUTSIDE OF THE [place] IN LAST 30 DAYS: No - HPI Onset: Just prior to arrival Onset/Duration: Sudden Quality of pain: No pain Severity: None Pain Level: Denies Associated symptoms: Shortness of breath. denies: Chest pain, Fever Exacerbated by: Denies Relieved by: Denies Similar symptoms previously: Yes Recently seen / treated by doctor: Yes - Related Data Allergies/Adverse Reactions: alprazolam [From Xanax] Allergy (Verified 12/16/16 00:48) iodine [Iodine] Allergy (Verified 12/16/16 00:48) quetiapine fumarate [From Seroquel] Allergy (Verified 12/16/16 00:48) Past Medical History - General Information source: Parent - Social History Smoking Status: Never Smoker Cigarette use (# per day): No Chew tobacco use (# tins/day): No Frequency of alcohol use: None Drug Abuse: None Lives with: Family Family History: None Patient has suicidal ideation: No Patient has homicidal ideation: No - Past Medical History Cardiac Medical History: Reports: Hx Congestive Heart Failure, Hx Hypercholesterolemia, Hx Hypertension, Hx Peripheral Vascular Disease Pulmonary Medical History: Reports: Hx COPD Endocrine Medical History: Reports: Hx Diabetes Mellitus Type 2 Psychiatric Medical History: Reports: Hx Dementia Past Surgical History: Reports: Hx Abdominal Surgery - GI tube, Hx Orthopedic Surgery - Shoulder. 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., Other - tracheostomy - Immunizations Hx Diphtheria, Pertussis, Tetanus Vaccination: Yes Review of Systems - Review of Systems Constitutional: denies: Chills, Fever EENT: No symptoms reported Cardiovascular: No symptoms reported Respiratory: See HPI Gastrointestinal: No symptoms reported Genitourinary: No symptoms reported Female Genitourinary: No symptoms reported Musculoskeletal: No symptoms reported Skin: No symptoms reported Hematologic/Lymphatic: No symptoms reported Neurological/Psychological: No symptoms reported Physical Exam - Vital signs Vitals: Pulse Ox 89 L 05/12/17 17:59 Notes: Physical exam: GENERAL: 81-year-old female, history of dementia, no acute distress HEAD: Atraumatic, normocephalic. EYES: Pupils equal round and reactive to light, extraocular movements intact, sclera anicteric, conjunctiva are normal. ENT: TMs normal, nares patent, oropharynx clear without exudates. Moist mucous membranes. NECK: Tracheostomy tube in place LUNGS: Scattered wheezes HEART: Regular rate and rhythm without murmurs, rubs or gallops. ABDOMEN: Soft, normoactive bowel sounds. No tenderness to palpation. No guarding, no rebound. No masses appreciated. EXTREMITIES: Normal range of motion, no pitting or edema. No clubbing or cyanosis. NEUROLOGICAL: Cranial nerves II through XII grossly intact. Normal speech, normal gait. PSYCH: Normal mood, normal affect. SKIN: Warm, Dry, normal turgor, no rashes or lesions noted. Course - Re-evaluation Re-evalutation: 05/12/17 21:48 Note: The patient was suctioned and given nebulizer treatments and she looks much better. She is in no distress right now. She does have a leukocytosis but she is being treated for an active C. difficile infection. I do not see any evidence of aspiration on the x-ray. 05/14/17 04:52 Patient was observed in the ER and is done well. I given them the option for inpatient admission for observation but the patient's daughter would like the patient to go home. I have given them instructions on what to return for. - Vital Signs Vital signs: Temp Pulse Resp BP Pulse Ox 98.6 F 110 H 23 H 136/70 H 98 05/13/17 00:03 05/13/17 00:03 05/13/17 00:03 05/13/17 00:03 05/13/17 00:03 - Laboratory Result Diagrams: 05/12/17 19:41 05/12/17 18:45 Laboratory results interpreted by me: 05/12/17 05/12/17 18:45 19:41 WBC 19.0 H RDW 16.5 H Abs Neuts (Manual) 14.8 H Abs Basophils (Manual) 0.4 H Chloride 114 H Carbon Dioxide 21 L BUN 47 H Glucose 240 H AST 42 H Creatine Kinase 29 L Albumin 3.2 L - Diagnostic Test Radiology reviewed: Image reviewed, Reports reviewed - Right medial atelectasis Discharge - Discharge Clinical Impression: Shortness of breath Condition: Stable Disposition: HOME, SELF-CARE Additional Instructions: Recommendations: Continue current medicines. Follow-up with Dr. Cassidy this week Return to the emergency room for any worsening shortness of breath, or difficulty breathing or any concerns or getting worse. Referrals: BAKARI BECKER MD [Primary Care Provider] - Follow up as needed
[2017-05-12 19:22] LABS: ALANINE AMINOTRANSFERASE 30 U/L (9-52); ALBUMIN 3.2 g/dL (3.5-5.0); ALKALINE PHOSPHATASE 93 U/L (38-126); ANION GAP 8 (5-19); ASPARTATE AMINO TRANSFERASE 42 U/L (14-36); BILIRUBIN,DIRECT 0.4 mg/dL (0.0-0.4); BILIRUBIN,TOTAL 0.5 mg/dL (0.2-1.3); BLOOD UREA NITROGEN 47 mg/dL (7-20); CALCIUM 9.6 mg/dL (8.4-10.2); CARBON DIOXIDE 21 mmol/L (22-30); CHLORIDE 114 mmol/L (98-107); CREATINE KINASE 29 U/L (30-135); CREATININE RESULT 0.64 mg/dL (0.52-1.25); GLUCOSE 240 mg/dL (75-110); POTASSIUM 3.6 mmol/L (3.6-5.0); SODIUM 143.3 mmol/L (137-145); TOTAL PROTEIN 7.1 g/dL (6.3-8.2)
[2017-05-12 19:31] LABS: CREATINE KINASE MB 1.03 ng/mL (<4.55)
[2017-05-12 19:32] LABS: TROPONIN I < 0.012 ng/mL
[2017-05-12 19:52] LABS: HEMATOCRIT 39.1 % (36.0-47.0); HEMOGLOBIN 12.9 g/dL (12.0-15.5); HGB HCT DIFFERENCE -0.4; MEAN CORPUSCULAR VOLUME 88 fl (80-97); RED BLOOD COUNT 4.45 10^6/uL (3.72-5.28); RED CELL DISTRIBUTION WIDTH 16.5 % (11.5-14.0)
[2017-05-12 20:14] LABS: BASOPHILS % (MANUAL) 2 % (0-2); EOSINOPHILS % (MANUAL) 2 % (0-6); LYMPHOCYTES % (MANUAL) 14 % (13-45); TOTAL CELLS COUNTED 100
[2017-05-12 20:20] LABS: ANISOCYTOSIS 1+
[2017-05-12 20:22] LABS: PLATELET CLUMPS PRESENT; POLYCHROMASIA SLIGHT; TARGET CELLS SLIGHT
[2017-05-13 00:06] VITALS: BP 136/70
--- NOTE | 2017-05-13 15:17 | RADIOLOGY REPORT (SQ) ---
EXAM DESCRIPTION: CHEST SINGLE VIEW COMPLETED DATE/TIME: 05/12/2017 6:49 pm REASON FOR STUDY: sob COMPARISON: 04/06/2017 TECHNIQUE: Frontal and lateral radiographic views of the chest acquired. NUMBER OF VIEWS: Two view. LIMITATIONS: None. FINDINGS: LUNGS AND PLEURA: Mild basilar subsegmental atelectasis- airspace disease in the right med ial lung base. Lungs are otherwise clear. No significant effusion or pneumothorax. MEDIASTINUM AND HILAR STRUCTURES: Stable. HEART AND VASCULATURE: Stable. BONY STRUCTURES: No acute findings. HARDWARE: Tracheostomy in expected position. OTHER: No other significant finding. IMPRESSION: Mild basilar subsegmental atelectasis- airspace disease in the right medial lung base. TECHNICAL DOCUMENTATION: JOB ID: [id number]
== END 2017-05-12 22:45 | disposition home or self-care (01) ==
LOC: ER 17:56
DX: J44.9 Chronic obstructive pulmonary disease, unspecified (principal); Z99.81 Dependence on supplemental oxygen; J98.11 Atelectasis; R06.02 Shortness of breath; R11.10 Vomiting, unspecified; I10 Essential (primary) hypertension; D72.829 Elevated white blood cell count, unspecified; E11.51 Type 2 diabetes mellitus with diabetic peripheral angiopathy without gangrene; Z93.0 Tracheostomy status; Z88.8 Allergy status to other drugs, medicaments and biological substances
CPT/HCPCS: 36415; 51702; 71010; 80053; 82550; 82553; 84484; 85025; 99285

== ENCOUNTER 2017-08-12 09:52 | Inpatient (IN) | payer MEDICARE, MEDICAID ==
--- NOTE | 2017-08-12 10:32 | ER Document Report ---
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 EMS was called , she was suctioned and her oxygenation improved to 80% on NRB mask. Patient usually has her trach changed monthly, but they did not have the correct size this month and so it was not changed. Patient is resting comfortably and has no complaints at this time. She does have a productive cough. TRAVEL OUTSIDE OF THE [place] IN LAST 30 DAYS: Yes - Related Data Allergies/Adverse Reactions: alprazolam [From Xanax] Allergy (Verified 08/12/17 10:54) iodine [Iodine] Allergy (Verified 08/12/17 10:54) quetiapine fumarate [From Seroquel] Allergy (Verified 08/12/17 10:54) Home Medications: Current Home Medications Aspirin 81 mg PO DAILY 08/12/17 [History] Losartan Potassium [Cozaar 25 mg Tablet] 25 mg PO DAILY 08/12/17 [History] Past Medical History - General Information source: Patient, Relative - Daughter, Emergency Med Personnel - Social History Smoking Status: Never Smoker Chew tobacco use (# tins/day): No Frequency of alcohol use: None Drug Abuse: None Family History: None Patient has suicidal ideation: - unable to assess Patient has homicidal ideation: - unable to assess - Past Medical History Cardiac Medical History: Reports: Hx Congestive Heart Failure, Hx Hypercholesterolemia, Hx Hypertension, Hx Peripheral Vascular Disease Pulmonary Medical History: Reports: Hx COPD Endocrine Medical History: Reports: Hx Diabetes Mellitus Type 2 Renal/ Medical History: Denies: Hx Peritoneal Dialysis Psychiatric Medical History: Reports: Hx Dementia Past Surgical History: Reports: Hx Abdominal Surgery - GI tube, Hx Orthopedic Surgery - Shoulder. 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 RESPIRATORY: -cough, +SOB GASTROINTESTINAL: -abdominal pain, -nausea, -vomiting, -diarrhea GENITOURINARY: -dysuria, -hematuria MUSCULOSKELETAL: -back pain, -neck pain SKIN: -rash or skin lesions. HEMATOLOGIC: -easy bruising or bleeding. LYMPHATIC: -swollen, enlarged glands. NEUROLOGICAL: -altered mental status or loss of consciousness, -headache, - neurologic symptoms ALL OTHER SYSTEMS REVIEWED AND NEGATIVE. Physical Exam - Vital signs Vitals: Resp Pulse Ox 30 H 89 L 08/12/17 09:56 08/12/17 09:56 - Notes Notes: PHYSICAL EXAMINATION: GENERAL: In no acute distress. HEAD: Atraumatic, normocephalic. EYES: Pupils equal round and reactive to light, extraocular movements intact, sclera anicteric, conjunctiva are normal. ENT: nares patent, oropharynx clear without exudates. Moist mucous membranes. NECK: Trach collar in place with a small amount of yellow sputum. LUNGS: Mild tachypnea. Left lower lobe crackles. HEART: Regular rate and rhythm without murmurs ABDOMEN: Soft, nontender, normoactive bowel sounds. G-tube in place. No guarding , no rebound. No masses appreciated. EXTREMITIES: No cyanosis. Strong distal pulses. NEUROLOGICAL: Mental status at baseline, according to daughter at bedside. SKIN: Warm, Dry, normal turgor, no rashes or lesions noted. Course - Re-evaluation Re-evalutation: Patient started at 60% on her normal 5 L through her trach, which improved to 80 % on a nonrebreather. In the ER, she was deep suctioned again with some large secretions obtained and her oxygenation improved to 92% on 100% oxygen. Patient has a productive cough, leukocytosis which is higher than her prior values, and a possible left lower lobe pneumonia. Will begin broad-spectrum antibiotics and admit patient for further evaluation and treatment. Her blood pressures are remaining stable. 08/12/17 11:[address] Becker and he has accepted patient as inpatient to [facility] for further evaluation and treatment. - Vital Signs Vital signs: Temp Pulse Resp BP Pulse Ox 97.6 F 27 H 125/55 L 95 08/12/17 10:00 08/12/17 11:01 08/12/17 11:01 08/12/17 11:01 - Laboratory Result Diagrams: 08/12/17 10:10 08/12/17 10:10 Laboratory results interpreted by me: 08/12/17 08/12/17 10:10 10:10 WBC 21.4 H RDW 14.7 H Seg Neuts % (Manual) 88 H Band Neutrophils % 1 L Lymphocytes % (Manual) 8 L Monocytes % (Manual) 2 L Abs Neuts (Manual) 19.0 H Sodium 145.2 H BUN 49 H Glucose 362 H Calcium 11.4 H Direct Bilirubin 0.5 H Alkaline Phosphatase 157 H Total Protein 9.0 H - Diagnostic Test Radiology reviewed: Image reviewed, Reports reviewed Radiology results interpreted by me: CXR: Low lung volumes. Cannot exclude left lower lobe pneumonia. Critical Care Note - Critical Care Note Total time excluding time spent on procedures (mins): 35 Discharge - Discharge Clinical Impression: Hypoxia Pneumonia Qualifiers: Pneumonia type: due to unspecified organism Laterality: left Lung location: lower lobe of lung Qualified Code(s): J18.1 - Lobar pneumonia, unspecified organism Condition: Stable Disposition: HOME, SELF-CARE Admitting Provider: Fermin Unit Admitted: [facility]U Referrals: BAKARI BECKER MD [Primary Care Provider] - Follow up as needed
[2017-08-12 10:36] LABS: HEMATOCRIT 40.6 % (36.0-47.0); HEMOGLOBIN 13.1 g/dL (12.0-15.5); HGB HCT DIFFERENCE -1.3; MEAN CORPUSCULAR HEMOGLOBIN 29.1 pg (27.0-33.4); MEAN CORPUSCULAR HGB CONC 32.3 g/dL (32.0-36.0); MEAN CORPUSCULAR VOLUME 90 fl (80-97); RED CELL DISTRIBUTION WIDTH 14.7 % (11.5-14.0); WHITE BLOOD COUNT 21.4 10^3/uL (4.0-10.5)
--- NOTE | 2017-08-12 10:39 | RADIOLOGY REPORT (SQ) ---
EXAM DESCRIPTION: CHEST SINGLE VIEW COMPLETED DATE/TIME: 08/12/2017 10:28 am REASON FOR STUDY: hypoxia COMPARISON: 05/12/2017 EXAM PARAMETERS: NUMBER OF VIEWS: One view. TECHNIQUE: Single frontal radiographic view of the chest acquired. RADIATION DOSE: NA LIMITATIONS: None. FINDINGS: LUNGS AND PLEURA: Low lung volumes. Ill-defined retrocardiac opacification. MEDIASTINUM AND HILAR STRUCTURES: No masses. Contour normal. HEART AND VASCULAR STRUCTURES: Heart normal in size. Normal vasculature. BONES: No acute findings. HARDWARE: None in the chest. OTHER: No other significant finding. IMPRESSION: Low lung volumes. Cannot exclude a limited left lower lobe pneumonia. TECHNICAL DOCUMENTATION: JOB ID: [id number] [employer]- All Rights Reserved
[2017-08-12 10:47] LABS: VENOUS BLOOD BASE EXCESS 0.3 mmol/L; VENOUS BLOOD PCO2 46.2 mmHg (35-63); VENOUS BLOOD PH 7.37 (7.30-7.42)
[2017-08-12 11:03] LABS: ALANINE AMINOTRANSFERASE 22 U/L (9-52); ALBUMIN 4.3 g/dL (3.5-5.0); ALKALINE PHOSPHATASE 157 U/L (38-126); ANION GAP 15 (5-19); ASPARTATE AMINO TRANSFERASE 35 U/L (14-36); BAND NEUTROPHILS % (MANUAL) 1 % (3-5); BASOPHILS % (MANUAL) 1 % (0-2); BILIRUBIN,DIRECT 0.5 mg/dL (0.0-0.4); BILIRUBIN,TOTAL 0.7 mg/dL (0.2-1.3); BLOOD UREA NITROGEN 49 mg/dL (7-20); CALCIUM 11.4 mg/dL (8.4-10.2); CARBON DIOXIDE 26 mmol/L (22-30); CHLORIDE 104 mmol/L (98-107); CREATINE KINASE 50 U/L (30-135); EOSINOPHILS % (MANUAL) 0 % (0-6); GLUCOSE 362 mg/dL (75-110); LIPASE 209.5 U/L (23-300); LYMPHOCYTES % (MANUAL) 8 % (13-45); POTASSIUM 4.8 mmol/L (3.6-5.0); SODIUM 145.2 mmol/L (137-145); TOTAL CELLS COUNTED 100
[2017-08-12 11:04] LABS: RBC MORPHOLOGY COMMENT NORMO-CYTIC/CHROMIC; TOXIC GRANULATION SLIGHT; TOXIC VACUOLATION PRESENT
[2017-08-12] MEDS ORDERED: PIPERACILLIN/TAZOBACTAM 3.375 GM VIAL IV ONE (11:36)
[2017-08-12] MEDS ORDERED: VANCOMYCIN HCL INJ 1000 MG VIAL IV ONE (11:36)
[2017-08-12] MEDS ORDERED: NORMAL SALINE INJ/PF 0.9% 10 ML SDV IV ONE (12:37)
[2017-08-12] MEDS ORDERED: NORMAL SALINE 1000 ML 1,000 ML IV ONE (12:43)
[2017-08-12] MEDS ORDERED: INFLUENZA ADLT QUAD (36MOS+) 2017-18 VAC 0.5 ML SYR IM PRN (14:59)
--- NOTE | 2017-08-12 15:19 | PDOC H&P ---
History of Present Illness Admission Date/PCP: 08/12/17 12:39 BAKARI BECKER MD History of Present Illness: BRIANA BRADY is a 81 year old female, she has multiple comorbid conditions including type 2 diabetes mellitus, peripheral vascular disease status post amputation of the right leg, chronic trach dependency, dementia she was transferred from home to the emergency room for evaluation of low oxygen saturation. The oxygen saturation was 60% on room air, patient's daughter stated that usually the home health nurse suction the tracheostomy but lately the patient has not been very cooperative with the home health nurse because the suctioning was getting too uncomfortable for the patient so she believes that the patient probably aspirated. She was seen and evaluated in the emergency room, a chest x-ray was done, it showed ill-defined retrocardiac opacification suggesting left lower lobe pneumonia also found was leukocytosis , white cell count was 21,000. There was associated hypercalcemia and azotemia suggesting dehydration. History taking is a challenge from this patient because of the underlining dementia. Past Medical History Cardiac Medical History: Reports: Hyperlipidema, Hypertension, Peripheral Vascular Disease, Other - Chronic diastolic dysfunction of left ventricle Pulmonary Medical History: Reports: Chronic Obstructive Pulmonary Disease (COPD) Endocrine Medical History: Reports: Diabetes Mellitus Type 2 Psychiatric Medical History: Reports: Dementia Past Surgical History Past Surgical History: Reports: Orthopedic Surgery - Shoulder. 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 , Other - tracheostomy Social History Smoking Status: Never Smoker Frequency of Alcohol Use: None Hx Recreational Drug Use: No Drugs: Cocaine Hx Prescription Drug Abuse: No Family History Family History: None Parental Family History Reviewed: Yes Children Family History Reviewed: Yes Sibling(s) Family History Reviewed.: Yes Medication/Allergy Home Medications: Amlodipine Besylate [Norvasc 10 mg Tablet] 10 mg PO DAILY 12/16/16 Ascorbic Acid [Vitamin C 500 mg Tablet] 500 mg PO DAILY 12/16/16 Ipratropium/Albuterol Sulfate [Iprat-Albut 0.5-3(2.5) mg/3 ml] 3 ml NEB Q6HP PRN 12/16/16 Memantine HCl [Namenda 10 mg Tablet] 10 mg PO DAILY 12/16/16 Ondansetron HCl [Zofran 4 mg Tablet] 8 mg PO TIDP PRN 12/16/16 Aspirin 81 mg PO DAILY 08/12/17 Losartan Potassium [Cozaar 25 mg Tablet] 25 mg PO DAILY 08/12/17 Allergies/Adverse Reactions: alprazolam [From Xanax] Allergy (Verified 08/12/17 10:54) iodine [Iodine] Allergy (Verified 08/12/17 10:54) quetiapine fumarate [From Seroquel] Allergy (Verified 08/12/17 10:54) Review of Systems ROS unobtainable: Due to mental status Physical Exam Vital Signs: Temp Pulse Resp BP Pulse Ox 98.7 F 66 18 116/48 L 100 08/12/17 14:22 08/12/17 14:22 08/12/17 14:22 08/12/17 14:22 08/12/17 14:22 Intake & Output 08/11/17 08/12/17 08/13/17 06:59 06:59 06:59 Weight 64.4 kg General appearance: PRESENT: no acute distress, well-developed, well-nourished Head exam: PRESENT: atraumatic, normocephalic Eye exam: PRESENT: conjunctiva pink, EOMI, PERRLA Ear exam: PRESENT: normal external ear exam Mouth exam: PRESENT: moist, tongue midline Neck exam: PRESENT: full ROM Respiratory exam: PRESENT: rhonchi Cardiovascular exam: PRESENT: RRR, +S1, +S2 GI/Abdominal exam: PRESENT: normal bowel sounds, soft Rectal exam: PRESENT: deferred Extremities exam: PRESENT: right BKA Neurological exam: PRESENT: alert Skin exam: PRESENT: dry, intact, warm Results Impressions: Chest X-Ray 08/12/17 10:01 IMPRESSION: Low lung volumes. Cannot exclude a limited left lower lobe pneumonia. Assessment & Plan - Diagnosis (1) Pneumonia Qualifiers: Pneumonia type: due to unspecified organism Laterality: left Lung location: lower lobe of lung Qualified Code(s): J18.1 - Lobar pneumonia, unspecified organism Is this a current diagnosis for this admission?: Yes Plan: Patient to be treated for community-acquired pneumonia, CT chest is ordered to define the pneumonia process (2) Hypercalcemia Is this a current diagnosis for this admission?: Yes Plan: This is most likely from dehydration, serum PTH is ordered to determine if this is PTH mediated, she will be treated with IV fluid (3) Dementia Qualifiers: Dementia type: unspecified type Dementia behavioral disturbance: without behavioral disturbance Qualified Code(s): F03.90 - Unspecified dementia without behavioral disturbance Is this a current diagnosis for this admission?: Yes (4) Uncontrolled diabetes mellitus Qualifiers: Diabetes mellitus type: type 2 Diabetes mellitus complication status: with neurologic complications Diabetes mellitus complication detail: with polyneuropathy Diabetes mellitus roasterman insulin use: with correction use Qualified Code(s): E11.42 - Type 2 diabetes mellitus with diabetic polyneuropathy; E11.65 - Type 2 diabetes mellitus with hyperglycemia; E11.65 - Type 2 diabetes mellitus with hyperglycemia; E11.65 - Type 2 diabetes mellitus with hyperglycemia; E11.65 - Type 2 diabetes mellitus with hyperglycemia; Z79.4 - USP (current) use of insulin; Z79.4 - USP (current) use of insulin ; Z79.4 - USP (current) use of insulin; Z79.4 - USP (current) use of insulin
[2017-08-12] MEDS: IPRATROPIUM/ALBUTEROL 0.5-2.5 MG/3 ML AMPUL NEB PRN ×2 (15:40→22:46)
[2017-08-12 16:04] LABS: PROTHROMBIN TIME 14.2 SEC (11.4-15.4)
[2017-08-12 16:05] LABS: PARTIAL THROMBOPLASTIN TIME 28.1 SEC (23.5-35.8)
[2017-08-12 16:14] LABS: LIPASE 199.8 U/L (23-300); MAGNESIUM 2.2 mg/dL (1.6-2.3); PHOSPHORUS 3.6 mg/dL (2.5-4.5)
[2017-08-12 16:28] LABS: CREATINE KINASE MB 1.62 ng/mL (<4.55); TROPONIN I 0.056 ng/mL
[2017-08-12 16:45] LABS: THYROID STIMULATING HORMONE 3.8 uIU/mL (0.47-4.68)
[2017-08-12 17:36] LABS: ARTERIAL BLOOD BASE EXCESS 1.8 mmol/L; ARTERIAL BLOOD O2 SATURATION 95.6 % (94-98)
--- NOTE | 2017-08-12 17:56 | RADIOLOGY REPORT (SQ) ---
EXAM DESCRIPTION: CT CHEST WITHOUT COMPLETED DATE/TIME: 08/12/2017 5:39 pm REASON FOR STUDY: pneumonia COMPARISON: None. TECHNIQUE: CT scan performed of the chest without intravenous contrast. Images reviewed with lung, soft tissue and bone windows. Reconstructed coronal and sagittal MPR images reviewed. All images st ored on PACS. All CT scanners at this facility use dose modulation, iterative reconstruction, and/or weight based d osing when appropriate to reduce radiation dose to as low as reasonably achievable (ALARA). [facility]: Dose Right [facility]: CareDose [facility]: Dose Right [facility]: Teradose 4D [facility]: [employer] RADIATION DOSE: Up-to-date CT equipment and radiation dose reduction techniques were employed. CTDIv ol: 13.2 mGy. DLP: 471 mGy-cm. mGy. LIMITATIONS: No technical limitations. FINDINGS: LUNGS AND PLEURA: Right lower lobe consolidation compatible with pneumonia. Trace right p leural effusion. Stable subsegmental atelectasis/ scarring left lung base. No pneumothorax. HILAR AND MEDIASTINAL STRUCTURES: No identified masses or abnormal nodes. No obvious aneurysm. HEART AND VASCULAR STRUCTURES: Stable cardiomegaly in the setting of coronary artery calcifications. No aneurysm. No pericardial effusion. UPPER ABDOMEN: Cholelithiasis without CT evidence of cholecystitis. Punctate nonobstructing calculus left kidney. Stable atrophy of the right kidney. THYROID AND OTHER SOFT TISSUES: No masses. No adenopathy. BONES: No significant finding. HARDWARE: Tracheostomy tube in place. OTHER: No other significant findings. IMPRESSION: RIGHT LOWER LOBE PNEUMONIA WITH ASSOCIATED SMALL PARAPNEUMONIC EFFUSION. ADDITIONAL CHRONIC CHANGES ABOVE. TECHNICAL DOCUMENTATION: JOB ID: [id number] Quality ID # [id number]: Final reports with documentation of one or more dose reduction techniques (e.g., Au tomated exposure control, adjustment of the mA and/or kV according to patient size, use of iterative reconstruction technique) 2010 [employer]- All Rights Reserved
[2017-08-12] MEDS: CEFEPIME 2 GM/D5W RTU 2 GM/50 ML RTUPB IV SCH (18:02)
[2017-08-12] MEDS: LEVOFLOXACIN 750 MG/D5W RTU 750 MG/150 ML RTUPB IV SCH (19:42)
[2017-08-12] MEDS ORDERED: DEXTROSE 40% GEL 15 GM TUBE PO PRN ×2 (19:55)
[2017-08-12] MEDS ORDERED: GLUCAGON,HUMAN RECOMB 1 MG INJ SUBCUT PRN (19:55)
[2017-08-12] MEDS ORDERED: DEXTROSE 50%-WATER 25 GM/50 ML DISP.SYRIN IV PRN ×2 (19:55)
[2017-08-12] MEDS: HEPARIN SOD (PORCINE) 5,000 UNIT/ML 1 ML SYRINGE SUBCUT SCH (21:49)
[2017-08-12 22:33] LABS: CREATINE KINASE MB 1.52 ng/mL (<4.55); TROPONIN I 0.059 ng/mL
--- NOTE | 2017-08-12 22:53 | EKG REPORT ---
SEVERITY:- ABNORMAL ECG - SINUS OR ECTOPIC ATRIAL RHYTHM LEFT BUNDLE BRANCH BLOCK : Confirmed by: Mirella Marrero 12-Aug-2017 22:52:30
[2017-08-12 23:18] LABS: ARTERIAL BLOOD BASE EXCESS -1.4 mmol/L; ARTERIAL BLOOD O2 SATURATION 70.3 % (94-98)
[2017-08-13] MEDS ORDERED: PROPOFOL 100 ML IV PRN (01:17)
[2017-08-13 01:35] LABS: AMORPHOUS SEDIMENT,URINE TRACE /HPF; APPEARANCE,URINE SLIGHTLY-CLOUDY; BILIRUBIN,URINE NEGATIVE (NEGATIVE); GLUCOSE, URINE >=500 mg/dL (NEGATIVE); KETONES,URINE NEGATIVE (NEGATIVE); LEUKOCYTE ESTERASE,URINE LARGE (NEGATIVE); NITRITE,URINE NEGATIVE (NEGATIVE); PROTEIN,URINE 30 mg/dL (NEGATIVE); URINE SPECIFIC GRAVITY 1.008; UROBILINOGEN,URINE NEGATIVE mg/dL (<2.0)
[2017-08-13 04:00] LABS: ABSOLUTE BASOPHILS # (AUTO) 0.1 10^3/uL (0.0-0.2); ABSOLUTE EOSINOPHILS # (AUTO) 0.1 10^3/uL (0.0-0.6); ABSOLUTE LYMPHOCYTES (AUTO) 1.2 10^3/uL (0.5-4.7); ABSOLUTE MONOCYTES (AUTO) 1.1 10^3/uL (0.1-1.4); ABSOLUTE NEUT (AUTO) 15.3 10^3/uL (1.7-8.2); BASOPHILS % (AUTO) 0.7 % (0-2); EOSINOPHILS % (AUTO) 0.3 % (0-6); HEMATOCRIT 31.4 % (36.0-47.0); HGB HCT DIFFERENCE 0.1; LYMPHOCYTES % (AUTO) 6.5 % (13-45); MEAN CORPUSCULAR HEMOGLOBIN 29.7 pg (27.0-33.4); MEAN CORPUSCULAR HGB CONC 33.4 g/dL (32.0-36.0); MEAN CORPUSCULAR VOLUME 89 fl (80-97); MONOCYTES % (AUTO) 6.4 % (3-13); RED BLOOD COUNT 3.54 10^6/uL (3.72-5.28); RED CELL DISTRIBUTION WIDTH 14.5 % (11.5-14.0); SEGMENTED NEUTROPHILS % (AUTO) 86.1 % (42-78); WHITE BLOOD COUNT 17.8 10^3/uL (4.0-10.5)
[2017-08-13 04:02] LABS: HEMOGLOBIN 10.5 g/dL (12.0-15.5)
[2017-08-13 04:24] LABS: ALANINE AMINOTRANSFERASE 25 U/L (9-52); ALBUMIN 3.2 g/dL (3.5-5.0); ALKALINE PHOSPHATASE 97 U/L (38-126); ANION GAP 11 (5-19); ASPARTATE AMINO TRANSFERASE 24 U/L (14-36); BILIRUBIN,DIRECT 0.3 mg/dL (0.0-0.4); BILIRUBIN,TOTAL 0.4 mg/dL (0.2-1.3); BLOOD UREA NITROGEN 51 mg/dL (7-20); CALCIUM 9.9 mg/dL (8.4-10.2); CARBON DIOXIDE 23 mmol/L (22-30); CHLORIDE 112 mmol/L (98-107); CHOLESTEROL 135.26 mg/dL (0-200); CREATININE RESULT 0.81 mg/dL (0.52-1.25); Direct HDL 36 mg/dL (>40); GLUCOSE 198 mg/dL (75-110); POTASSIUM 4.6 mmol/L (3.6-5.0); SODIUM 145.9 mmol/L (137-145); TOTAL PROTEIN 6.9 g/dL (6.3-8.2); TRIGLYCERIDES 71 mg/dL (<150)
[2017-08-13 04:34] LABS: DIRECT LDL 81 mg/dL (<100)
[2017-08-13 04:35] LABS: CREATINE KINASE MB 1.1 ng/mL (<4.55); TROPONIN I 0.049 ng/mL
[2017-08-13] MEDS: CEFEPIME 2 GM/D5W RTU 2 GM/50 ML RTUPB IV SCH ×2 (04:57→17:06)
[2017-08-13] MEDS: NORMAL SALINE 1000 ML 1,000 ML IV PRN ×2 (04:57→09:35)
[2017-08-13] MEDS: HEPARIN SOD (PORCINE) 5,000 UNIT/ML 1 ML SYRINGE SUBCUT SCH ×3 (05:49→22:09)
--- NOTE | 2017-08-13 06:40 | RADIOLOGY REPORT (SQ) ---
EXAM DESCRIPTION: CHEST SINGLE VIEW CLINICAL HISTORY: mechanical vent COMPARISON: 08/12/2017 FINDINGS: Single frontal view of the chest. Tracheostomy. Atherosclerotic calcification aortic arch. Cardiomegaly. Cerebral increase in left basilar opacity. Unchanged right infrahilar opacity. No pneumothorax. Leads overlie the chest. No displaced rib fractures identified. Upper abdominal soft tissues are unremarkable. IMPRESSION: 1. Interval increase in left basilar opacity from the previous study.
--- NOTE | 2017-08-13 09:42 | PDOC PROGRESS REPORT ---
Subjective Progress Note for:: 08/13/17 Subjective:: Patient was transferred to ICU since last clinical evaluation due to persistent hypoxemia with need for ventilator support. She has improved significantly with inflation of her tracheostomy tube cuff. No reported fever. Tolerating bolus PEG tube feeding. Remain on IV antibiotic coverage. Physical Exam Vital Signs: Temp Pulse Resp BP Pulse Ox 98.3 F 79 12 124/67 98 08/12/17 20:03 08/13/17 08:26 08/13/17 07:39 08/13/17 07:39 08/13/17 08:00 Pulse Oximeter Continuous Start: 08/12/17 15: 06 Freq: RTQ4 Status: Complete Document 08/12/17 20:24 [facility] (Rec: 08/12/17 21:45 [facility] [email or web address]_) Pulse Oximetry Assessment Oxygen Saturation (92-100) 99 Oxygen Delivery Method Trach Collar Fraction of Inspired Oxygen (FIO2) 40 Equipment Usage Equipment in Use Continuous SpO2 Machine # N-[id number] Intake & Output 08/12/17 08/13/17 08/14/17 06:59 06:59 06:59 Intake Total 1095 Output Total 140 45190 Balance 955 -55599 Weight 64 kg Head exam: PRESENT: atraumatic, normocephalic Eye exam: PRESENT: conjunctiva pink, EOMI, PERRLA. ABSENT: scleral icterus Neck exam: PRESENT: tracheostomy Respiratory exam: PRESENT: decreased breath sounds - at lung bases Cardiovascular exam: PRESENT: RRR. ABSENT: diastolic murmur, rubs, systolic murmur Vascular exam: PRESENT: normal capillary refill GI/Abdominal exam: PRESENT: normal bowel sounds, soft, other - PEG tube in- situ. ABSENT: distended, guarding, mass, organolmegaly, rebound, tenderness Extremities exam: PRESENT: right AKA Neurological exam: PRESENT: alert, awake Skin exam: PRESENT: dry, intact, warm. ABSENT: cyanosis, rash Results Laboratory Results: 08/13/17 03:49 08/13/17 03:49 08/12/17 08/12/17 08/12/17 15:40 15:40 15:40 WBC RBC Hgb Hct MCV MCH MCHC RDW Plt Count Seg Neutrophils % Lymphocytes % Monocytes % Eosinophils % Basophils % Absolute Neutrophils Absolute Lymphocytes Absolute Monocytes Absolute Eosinophils Absolute Basophils Carbonic Acid HCO3/H2CO3 Ratio ABG pH ABG pCO2 ABG pO2 ABG HCO3 ABG O2 Saturation ABG Base Excess FiO2 Sodium Potassium Chloride Carbon Dioxide Anion Gap BUN Creatinine Est GFR ( Amer) Est GFR (Non-Af Amer) Glucose Calcium Phosphorus 3.6 Magnesium 2.2 Total Bilirubin AST ALT Alkaline Phosphatase Ammonia < 8.7 L Total Protein Albumin Triglycerides Cholesterol LDL Cholesterol Direct VLDL Cholesterol HDL Cholesterol Amylase 70 Lipase 199.8 TSH 3.80 Free T4 1.37 PTH Intact Urine Color Urine Appearance Urine pH Ur Specific [place] Urine Protein Urine Glucose (UA) Urine Ketones Urine Blood Urine Nitrite Ur Leukocyte Esterase Urine WBC (Auto) Urine RBC (Auto) 08/12/17 08/12/17 08/12/17 15:40 16:54 23:00 WBC RBC Hgb Hct MCV MCH MCHC RDW Plt Count Seg Neutrophils % Lymphocytes % Monocytes % Eosinophils % Basophils % Absolute Neutrophils Absolute Lymphocytes Absolute Monocytes Absolute Eosinophils Absolute Basophils Carbonic Acid 1.36 H 1.48 H HCO3/H2CO3 Ratio 19:1 16:1 ABG pH 7.40 7.32 L ABG pCO2 45.2 H 49.3 H ABG pO2 78.9 L 39.9 L* ABG HCO3 27.1 H 25.1 ABG O2 Saturation 95.6 70.3 L ABG Base Excess 1.8 -1.4 FiO2 40% 70% Sodium Potassium Chloride Carbon Dioxide Anion Gap BUN Creatinine Est GFR ( Amer) Est GFR (Non-Af Amer) Glucose Calcium Phosphorus Magnesium Total Bilirubin AST ALT Alkaline Phosphatase Ammonia Total Protein Albumin Triglycerides Cholesterol LDL Cholesterol Direct VLDL Cholesterol HDL Cholesterol Amylase Lipase TSH Free T4 PTH Intact 153.7 H Urine Color Urine Appearance Urine pH Ur Specific [place] Urine Protein Urine Glucose (UA) Urine Ketones Urine Blood Urine Nitrite Ur Leukocyte Esterase Urine WBC (Auto) Urine RBC (Auto) 08/13/17 08/13/17 08/13/17 00:40 03:49 03:49 WBC 17.8 H RBC 3.54 L Hgb 10.5 L D Hct 31.4 L MCV 89 MCH 29.7 MCHC 33.4 RDW 14.5 H Plt Count 313 Seg Neutrophils % 86.1 H Lymphocytes % 6.5 L Monocytes % 6.4 Eosinophils % 0.3 Basophils % 0.7 Absolute Neutrophils 15.3 H Absolute Lymphocytes 1.2 Absolute Monocytes 1.1 Absolute Eosinophils 0.1 Absolute Basophils 0.1 Carbonic Acid HCO3/H2CO3 Ratio ABG pH ABG pCO2 ABG pO2 ABG HCO3 ABG O2 Saturation ABG Base Excess FiO2 Sodium 145.9 H Potassium 4.6 Chloride 112 H Carbon Dioxide 23 Anion Gap 11 BUN 51 H Creatinine 0.81 Est GFR ( Amer) > 60 Est GFR (Non-Af Amer) > 60 Glucose 198 H Calcium 9.9 Phosphorus Magnesium Total Bilirubin 0.4 AST 24 ALT 25 Alkaline Phosphatase 97 Ammonia Total Protein 6.9 Albumin 3.2 L Triglycerides 71 Cholesterol 135.26 LDL Cholesterol Direct 81 VLDL Cholesterol 14.0 HDL Cholesterol 36 L Amylase Lipase TSH Free T4 PTH Intact Urine Color YELLOW Urine Appearance SLIGHTLY-CLOUDY Urine pH 6.0 Ur Specific [place] 1.008 Urine Protein 30 H Urine Glucose (UA) >=500 H Urine Ketones NEGATIVE Urine Blood NEGATIVE Urine Nitrite NEGATIVE Ur Leukocyte Esterase LARGE H Urine WBC (Auto) 16 Urine RBC (Auto) 7 08/12/17 08/12/17 08/12/17 15:40 15:40 15:40 Creatine Kinase 40 CK-MB (CK-2) 1.62 Troponin I 0.056 NT-Pro-B Natriuret Pep 1470 H 08/12/17 08/12/17 08/13/17 21:40 21:40 03:49 Creatine Kinase 38 27 L CK-MB (CK-2) 1.52 Troponin I 0.059 NT-Pro-B Natriuret Pep 08/13/17 03:49 Creatine Kinase CK-MB (CK-2) 1.10 Troponin I 0.049 NT-Pro-B Natriuret Pep Impressions: Chest CT 08/12/17 00:00 IMPRESSION: RIGHT LOWER LOBE PNEUMONIA WITH ASSOCIATED SMALL PARAPNEUMONIC EFFUSION. ADDITIONAL CHRONIC CHANGES ABOVE. Chest X-Ray 08/13/17 06:00 IMPRESSION: 1. Interval increase in left basilar opacity from the previous study. Assessment & Plan - Diagnosis (1) Acute hypoxemic respiratory failure Is this a current diagnosis for this admission?: Yes Plan: Patient will be placed on weaning protocol and taken off vent support if tolerated. (2) Community acquired pneumonia Qualifiers: Laterality: left Lung location: lower lobe of lung Qualified Code(s): J18.1 - Lobar pneumonia, unspecified organism Is this a current diagnosis for this admission?: Yes Plan: Continue IV Levofloxacin and Cefepime coverage. Follow up on blood, tracheal aspirate cultures. (3) Uncontrolled diabetes mellitus Qualifiers: Diabetes mellitus type: type 2 Diabetes mellitus complication status: with neurologic complications Diabetes mellitus complication detail: with polyneuropathy Diabetes mellitus retirement insulin use: with retirement use Qualified Code(s): E11.42 - Type 2 diabetes mellitus with diabetic polyneuropathy; E11.65 - Type 2 diabetes mellitus with hyperglycemia; E11.65 - Type 2 diabetes mellitus with hyperglycemia; E11.65 - Type 2 diabetes mellitus with hyperglycemia; E11.65 - Type 2 diabetes mellitus with hyperglycemia; Z79.4 - watermelon inspector (current) use of insulin; Z79.4 - watermelon inspector (current) use of insulin ; Z79.4 - [facility] (current) use of insulin; Z79.4 - [facility] (current) use of insulin Is this a current diagnosis for this admission?: Yes Plan: Continue on current medication management. (4) Prerenal azotemia Is this a current diagnosis for this admission?: Yes Plan: Continue IV hydration as well as enteral tube water administration. Improving renal indices and resolved hypercalcemia. - Time Time Spent with patient: 35 or more minutes Medications reviewed and adjusted accordingly: Yes Anticipated discharge: Home with Homehealth Within: Other - Inpatient Certification Based on my medical assessment, after consideration of the patient's comorbidities, presenting symptoms, or acuity I expect that the services needed warrant INPATIENT care.: Yes I certify that my determination is in accordance with my understanding of Medicare's requirements for reasonable and necessary INPATIENT services [42 CFR 412.3e].: Yes Medical Necessity: Need For IV Fluids, Need For Continuous Telemetry Monitoring , Need for IV Antibiotics, Risk of Complication if Not Cared For in Hospital 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
[2017-08-13] MEDS ORDERED: ONDANSETRON HCL 8 MG TABLET PO PRN (09:49)
[2017-08-13] MEDS: ASCORBIC ACID 500 MG TABLET PO SCH (10:04)
[2017-08-13] MEDS: AMLODIPINE BESYLATE 10 MG TABLET PO SCH (10:05)
[2017-08-13] MEDS: MEMANTINE HCL 10 MG TABLET PO SCH (10:05)
[2017-08-13] MEDS: ASPIRIN 81 MG TABLET, CHEWABLE PO SCH (10:06)
[2017-08-13] MEDS: LOSARTAN POTASSIUM 25 MG TABLET PO SCH (10:06)
[2017-08-13] MEDS ORDERED: ACETAMINOPHEN 325 MG TABLET PO PRN (11:35)
[2017-08-13] MEDS: LEVOFLOXACIN 750 MG/D5W RTU 750 MG/150 ML RTUPB IV SCH (17:46)
[2017-08-13] MEDS ORDERED: GABAPENTIN 250 MG PO SCH (18:00)
[2017-08-14] MEDS: CEFEPIME 2 GM/D5W RTU 2 GM/50 ML RTUPB IV SCH ×2 (05:58→18:06)
[2017-08-14] MEDS: HEPARIN SOD (PORCINE) 5,000 UNIT/ML 1 ML SYRINGE SUBCUT SCH ×3 (05:59→21:40)
[2017-08-14 06:25] LABS: ABSOLUTE BASOPHILS # (AUTO) 0.3 10^3/uL (0.0-0.2); ABSOLUTE EOSINOPHILS # (AUTO) 0.9 10^3/uL (0.0-0.6); ABSOLUTE LYMPHOCYTES (AUTO) 2.5 10^3/uL (0.5-4.7); ABSOLUTE MONOCYTES (AUTO) 1.1 10^3/uL (0.1-1.4); ABSOLUTE NEUT (AUTO) 5.8 10^3/uL (1.7-8.2); BASOPHILS % (AUTO) 2.4 % (0-2); EOSINOPHILS % (AUTO) 8.1 % (0-6); HEMATOCRIT 30.9 % (36.0-47.0); HEMOGLOBIN 10.3 g/dL (12.0-15.5); LYMPHOCYTES % (AUTO) 23.4 % (13-45); MEAN CORPUSCULAR HEMOGLOBIN 29.8 pg (27.0-33.4); MEAN CORPUSCULAR HGB CONC 33.3 g/dL (32.0-36.0); MEAN CORPUSCULAR VOLUME 89 fl (80-97); MONOCYTES % (AUTO) 10.6 % (3-13); RED BLOOD COUNT 3.46 10^6/uL (3.72-5.28); RED CELL DISTRIBUTION WIDTH 14.5 % (11.5-14.0); SEGMENTED NEUTROPHILS % (AUTO) 55.5 % (42-78); WHITE BLOOD COUNT 10.5 10^3/uL (4.0-10.5)
[2017-08-14 07:15] LABS: ALANINE AMINOTRANSFERASE 32 U/L (9-52); ALKALINE PHOSPHATASE 88 U/L (38-126); ANION GAP 13 (5-19); ASPARTATE AMINO TRANSFERASE 19 U/L (14-36); BILIRUBIN,DIRECT 0.4 mg/dL (0.0-0.4); BILIRUBIN,TOTAL 0.7 mg/dL (0.2-1.3); BLOOD UREA NITROGEN 36 mg/dL (7-20); CALCIUM 10.2 mg/dL (8.4-10.2); CARBON DIOXIDE 20 mmol/L (22-30); CHLORIDE 117 mmol/L (98-107); CREATININE RESULT 0.75 mg/dL (0.52-1.25); GLUCOSE 134 mg/dL (75-110); POTASSIUM 3.8 mmol/L (3.6-5.0); SODIUM 149.5 mmol/L (137-145); TOTAL PROTEIN 6.6 g/dL (6.3-8.2)
[2017-08-14] MEDS: LOSARTAN POTASSIUM 25 MG TABLET PO SCH (10:41)
[2017-08-14] MEDS: ASCORBIC ACID 500 MG TABLET PO SCH (10:41)
[2017-08-14] MEDS: MEMANTINE HCL 10 MG TABLET PO SCH (10:42)
[2017-08-14] MEDS: ASPIRIN 81 MG TABLET, CHEWABLE PO SCH (10:42)
[2017-08-14] MEDS: AMLODIPINE BESYLATE 10 MG TABLET PO SCH (10:42)
--- NOTE | 2017-08-14 11:06 | PDOC PROGRESS REPORT ---
Subjective Progress Note for:: 08/14/17 Subjective:: Patient clinical status in improving. She is off vent support and mainly on trach tent supplementation. Daughter at bedside stated that patient trach tube cuff have been deflated for several weeks at home due to her reported discomfort from the cuff. There has been more aggressive trach suction to the point of blood returns that led to less frequent toileting and possibly her development of pneumonia. Trach aspirate growing gram negative veronica. No reported fever. Episode of desaturatiion post bolus feeding yesterday. Family are reluctant to continuous feeding method. Physical Exam Vital Signs: Temp Pulse Resp BP Pulse Ox 98.3 F 92 24 H 147/70 H 99 08/12/17 20:03 08/14/17 10:00 08/14/17 10:13 08/14/17 10:13 08/14/17 10:13 Pulse Oximeter Continuous Start: 08/12/17 15: 06 Freq: RTQ4 Status: Complete Document 08/12/17 20:24 [facility] (Rec: 08/12/17 21:45 [facility] [email or web address]) Pulse Oximetry Assessment Oxygen Saturation (92-100) 99 Oxygen Delivery Method Trach Collar Fraction of Inspired Oxygen (FIO2) 40 Equipment Usage Equipment in Use Continuous SpO2 Machine # N-9 Intake & Output 08/13/17 08/14/17 08/15/17 06:59 06:59 06:59 Intake Total 1095 2984 60 Output Total 140 06556 450 Balance 958 -48852 -390 Weight 64 kg 64.9 kg Physical Exam: Head exam: PRESENT: atraumatic, normocephalic Eye exam: PRESENT: conjunctiva pink, EOMI, PERRLA. ABSENT: scleral icterus Neck exam: PRESENT: tracheostomy Respiratory exam: PRESENT: decreased breath sounds - at lung bases Cardiovascular exam: PRESENT: RRR. ABSENT: diastolic murmur, rubs, systolic murmur Vascular exam: PRESENT: normal capillary refill GI/Abdominal exam: PRESENT: normal bowel sounds, soft, other - PEG tube in- situ. ABSENT: distended, guarding, mass, organomegaly, rebound, tenderness Extremities exam: PRESENT: right AKA Neurological exam: PRESENT: alert, awake Skin exam: PRESENT: dry, intact, warm. ABSENT: cyanosis, rash Results Laboratory Results: 08/14/17 06:08 08/14/17 06:35 08/14/17 08/14/17 06:08 06:35 WBC 10.5 RBC 3.46 L Hgb 10.3 L Hct 30.9 L MCV 89 MCH 29.8 MCHC 33.3 RDW 14.5 H Plt Count 250 Seg Neutrophils % 55.5 Lymphocytes % 23.4 Monocytes % 10.6 Eosinophils % 8.1 H Basophils % 2.4 H Absolute Neutrophils 5.8 Absolute Lymphocytes 2.5 Absolute Monocytes 1.1 Absolute Eosinophils 0.9 H Absolute Basophils 0.3 H Sodium 149.5 H Potassium 3.8 Chloride 117 H Carbon Dioxide 20 L Anion Gap 13 BUN 36 H Creatinine 0.75 Est GFR ( Amer) > 60 Est GFR (Non-Af Amer) > 60 Glucose 134 H Calcium 10.2 Total Bilirubin 0.7 AST 19 ALT 32 Alkaline Phosphatase 88 Total Protein 6.6 Albumin 3.0 L 08/12/17 08/12/17 08/12/17 15:40 15:40 15:40 Creatine Kinase 40 CK-MB (CK-2) 1.62 Troponin I 0.056 NT-Pro-B Natriuret Pep 1470 H 08/12/17 08/12/17 08/13/17 21:40 21:40 03:49 Creatine Kinase 38 27 L CK-MB (CK-2) 1.52 Troponin I 0.059 NT-Pro-B Natriuret Pep 08/13/17 03:49 Creatine Kinase CK-MB (CK-2) 1.10 Troponin I 0.049 NT-Pro-B Natriuret Pep Impressions: Chest CT 08/12/17 00:00 IMPRESSION: RIGHT LOWER LOBE PNEUMONIA WITH ASSOCIATED SMALL PARAPNEUMONIC EFFUSION. ADDITIONAL CHRONIC CHANGES ABOVE. Chest X-Ray 08/13/17 06:00 IMPRESSION: 1. Interval increase in left basilar opacity from the previous study. Assessment & Plan - Diagnosis (1) Acute hypoxemic respiratory failure Is this a current diagnosis for this admission?: Yes Plan: Improving. Continue supplemental oxygen support via trach tent collar. (2) Community acquired pneumonia Qualifiers: Laterality: left Lung location: lower lobe of lung Qualified Code(s): J18.1 - Lobar pneumonia, unspecified organism Is this a current diagnosis for this admission?: Yes Plan: Continue IV Cefepime and Levofloxacin coverage. Follow up on trach aspirate culture findings. (3) Uncontrolled diabetes mellitus Qualifiers: Diabetes mellitus type: type 2 Diabetes mellitus complication status: with neurologic complications Diabetes mellitus complication detail: with polyneuropathy Diabetes mellitus jail insulin use: with jail use Qualified Code(s): E11.42 - Type 2 diabetes mellitus with diabetic polyneuropathy; E11.65 - Type 2 diabetes mellitus with hyperglycemia; E11.65 - Type 2 diabetes mellitus with hyperglycemia; E11.65 - Type 2 diabetes mellitus with hyperglycemia; E11.65 - Type 2 diabetes mellitus with hyperglycemia; Z79.4 - long term care phlebotomist (current) use of insulin; Z79.4 - intermediate (current) use of insulin ; Z79.4 - long term care phlebotomist (current) use of insulin; Z79.4 - intermediate (current) use of insulin Is this a current diagnosis for this admission?: Yes Plan: Encourage continuous feeding method after further discussion with family. Fluid output documentation will be corrected to adjust for proper fluid balance. (4) Prerenal azotemia Is this a current diagnosis for this admission?: Yes - Time Time Spent with patient: 25-34 minutes Medications reviewed and adjusted accordingly: Yes Anticipated discharge: Home with Homehealth Within: Other - Inpatient Certification Based on my medical assessment, after consideration of the patient's comorbidities, presenting symptoms, or acuity I expect that the services needed warrant INPATIENT care.: Yes I certify that my determination is in accordance with my understanding of Medicare's requirements for reasonable and necessary INPATIENT services [42 CFR 412.3e].: Yes Medical Necessity: Need Close Monitoring Due to Risk of Patient Decompensation, Need For IV Fluids, Need for IV Antibiotics, Risk of Complication if Not Cared For in Hospital Post Hospital Care: D/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
[2017-08-14] MEDS: LEVOFLOXACIN 750 MG/D5W RTU 750 MG/150 ML RTUPB IV SCH (18:46)
[2017-08-15] MEDS ORDERED: PROMETHAZINE HCL INJ 25 MG/1 ML VIAL ONE (00:30)
[2017-08-15] MEDS ORDERED: PROMETHAZINE HCL INJ 25 MG/1 ML VIAL IV ONE (01:15)
[2017-08-15 04:04] LABS: ABSOLUTE BASOPHILS # (AUTO) 0.1 10^3/uL (0.0-0.2); ABSOLUTE EOSINOPHILS # (AUTO) 1.2 10^3/uL (0.0-0.6); ABSOLUTE LYMPHOCYTES (AUTO) 2.5 10^3/uL (0.5-4.7); ABSOLUTE MONOCYTES (AUTO) 1.2 10^3/uL (0.1-1.4); ABSOLUTE NEUT (AUTO) 8.7 10^3/uL (1.7-8.2); BASOPHILS % (AUTO) 0.6 % (0-2); EOSINOPHILS % (AUTO) 8.7 % (0-6); HEMATOCRIT 34.3 % (36.0-47.0); HEMOGLOBIN 11.2 g/dL (12.0-15.5); HGB HCT DIFFERENCE -0.7; LYMPHOCYTES % (AUTO) 18.2 % (13-45); MEAN CORPUSCULAR HEMOGLOBIN 29.3 pg (27.0-33.4); MEAN CORPUSCULAR HGB CONC 32.6 g/dL (32.0-36.0); MEAN CORPUSCULAR VOLUME 90 fl (80-97); MONOCYTES % (AUTO) 8.8 % (3-13); RED BLOOD COUNT 3.83 10^6/uL (3.72-5.28); RED CELL DISTRIBUTION WIDTH 14.3 % (11.5-14.0); SEGMENTED NEUTROPHILS % (AUTO) 63.7 % (42-78); WHITE BLOOD COUNT 13.7 10^3/uL (4.0-10.5)
[2017-08-15 04:18] LABS: ALANINE AMINOTRANSFERASE 30 U/L (9-52); ALBUMIN 3.3 g/dL (3.5-5.0); ALKALINE PHOSPHATASE 100 U/L (38-126); ANION GAP 12 (5-19); ASPARTATE AMINO TRANSFERASE 24 U/L (14-36); BILIRUBIN,DIRECT 0.4 mg/dL (0.0-0.4); BILIRUBIN,TOTAL 0.7 mg/dL (0.2-1.3); BLOOD UREA NITROGEN 26 mg/dL (7-20); CALCIUM 10.3 mg/dL (8.4-10.2); CARBON DIOXIDE 21 mmol/L (22-30); CHLORIDE 117 mmol/L (98-107); CREATININE RESULT 0.66 mg/dL (0.52-1.25); GLUCOSE 118 mg/dL (75-110); POTASSIUM 3.6 mmol/L (3.6-5.0); SODIUM 150.1 mmol/L (137-145)
[2017-08-15] MEDS: CEFEPIME 2 GM/D5W RTU 2 GM/50 ML RTUPB IV SCH ×2 (04:50→18:44)
[2017-08-15] MEDS: HEPARIN SOD (PORCINE) 5,000 UNIT/ML 1 ML SYRINGE SUBCUT SCH ×3 (05:01→22:43)
[2017-08-15] MEDS: LOSARTAN POTASSIUM 25 MG TABLET PO SCH (11:10)
[2017-08-15] MEDS: AMLODIPINE BESYLATE 10 MG TABLET PO SCH (11:11)
[2017-08-15] MEDS: ASCORBIC ACID 500 MG TABLET PO SCH (11:11)
[2017-08-15] MEDS: ASPIRIN 81 MG TABLET, CHEWABLE PO SCH (11:12)
[2017-08-15] MEDS: MEMANTINE HCL 10 MG TABLET PO SCH (11:12)
[2017-08-15] MEDS: NORMAL SALINE 1000 ML 1,000 ML IV PRN ×2 (11:13→18:45)
--- NOTE | 2017-08-15 20:37 | PDOC PROGRESS REPORT ---
Subjective Progress Note for:: 08/15/17 Subjective:: Patient was admitted for the management of pneumonia, she developed respiratory failure requiring vent support, she was seen in ICU presently downgraded to medical floor/IMCU. On admission she has hypercalcemia due to primary hyperparathyroidism Physical Exam Vital Signs: Temp Pulse Resp BP Pulse Ox 98.3 F 95 26 H 156/71 H 97 08/12/17 20:03 08/15/17 09:07 08/15/17 16:00 08/15/17 15:29 08/15/17 16:20 Pulse Oximeter Continuous Start: 08/12/17 15: 06 Freq: RTQ4 Status: Complete Document 08/12/17 20:24 [facility] (Rec: 08/12/17 21:45 [facility] [email or web address]_) Pulse Oximetry Assessment Oxygen Saturation (92-100) 99 Oxygen Delivery Method Trach Collar Fraction of Inspired Oxygen (FIO2) 40 Equipment Usage Equipment in Use Continuous SpO2 Machine # N-9 Intake & Output 08/14/17 08/15/17 08/16/17 06:59 06:59 06:59 Intake Total 2984 2119 1074 Output Total 41293 2250 1300 Balance -40228 -131 -226 Weight 64.9 kg 63.3 kg General appearance: PRESENT: no acute distress Eye exam: PRESENT: PERRLA Respiratory exam: PRESENT: clear to auscultation monica Cardiovascular exam: PRESENT: +S1, +S2 GI/Abdominal exam: PRESENT: soft Neurological exam: PRESENT: alert Results Laboratory Results: 08/15/17 03:55 08/15/17 03:55 08/15/17 08/15/17 03:55 03:55 WBC 13.7 H RBC 3.83 Hgb 11.2 L Hct 34.3 L MCV 90 MCH 29.3 MCHC 32.6 RDW 14.3 H Plt Count 342 Seg Neutrophils % 63.7 Lymphocytes % 18.2 Monocytes % 8.8 Eosinophils % 8.7 H Basophils % 0.6 Absolute Neutrophils 8.7 H Absolute Lymphocytes 2.5 Absolute Monocytes 1.2 Absolute Eosinophils 1.2 H Absolute Basophils 0.1 Sodium 150.1 H Potassium 3.6 Chloride 117 H Carbon Dioxide 21 L Anion Gap 12 BUN 26 H Creatinine 0.66 Est GFR ( Amer) > 60 Est GFR (Non-Af Amer) > 60 Glucose 118 H Calcium 10.3 H Total Bilirubin 0.7 AST 24 ALT 30 Alkaline Phosphatase 100 Total Protein 7.0 Albumin 3.3 L 08/13/17 00:40 Catheterized Urine Urine Culture - Final NO GROWTH 2 DAYS 08/13/17 00:40 Tracheal Aspirate Gram Stain - Final 08/13/17 00:40 Tracheal Aspirate Sputum Culture - Final Pseudomonas Aeruginosa Corynebacterium Striatum Greatly Reduced Normal Nan 08/12/17 08/12/17 08/12/17 15:40 15:40 15:40 Creatine Kinase 40 CK-MB (CK-2) 1.62 Troponin I 0.056 NT-Pro-B Natriuret Pep 1470 H 08/12/17 08/12/17 08/13/17 21:40 21:40 03:49 Creatine Kinase 38 27 L CK-MB (CK-2) 1.52 Troponin I 0.059 NT-Pro-B Natriuret Pep 08/13/17 03:49 Creatine Kinase CK-MB (CK-2) 1.10 Troponin I 0.049 NT-Pro-B Natriuret Pep Impressions: Chest CT 08/12/17 00:00 IMPRESSION: RIGHT LOWER LOBE PNEUMONIA WITH ASSOCIATED SMALL PARAPNEUMONIC EFFUSION. ADDITIONAL CHRONIC CHANGES ABOVE. Chest X-Ray 08/13/17 06:00 IMPRESSION: 1. Interval increase in left basilar opacity from the previous study. Assessment & Plan - Diagnosis (1) Pneumonia Qualifiers: Pneumonia type: due to unspecified organism Laterality: left Lung location: lower lobe of lung Qualified Code(s): J18.1 - Lobar pneumonia, unspecified organism Is this a current diagnosis for this admission?: Yes (2) Hypercalcemia Is this a current diagnosis for this admission?: Yes (3) Dementia Qualifiers: Dementia type: unspecified type Dementia behavioral disturbance: without behavioral disturbance Qualified Code(s): F03.90 - Unspecified dementia without behavioral disturbance Is this a current diagnosis for this admission?: Yes (4) Uncontrolled diabetes mellitus Qualifiers: Diabetes mellitus type: type 2 Diabetes mellitus complication status: with neurologic complications Diabetes mellitus complication detail: with polyneuropathy Diabetes mellitus extermination inspector insulin use: with extermination inspector use Qualified Code(s): E11.42 - Type 2 diabetes mellitus with diabetic polyneuropathy; E11.65 - Type 2 diabetes mellitus with hyperglycemia; E11.65 - Type 2 diabetes mellitus with hyperglycemia; E11.65 - Type 2 diabetes mellitus with hyperglycemia; E11.65 - Type 2 diabetes mellitus with hyperglycemia; Z79.4 - terminal operations manager (current) use of insulin; Z79.4 - terminal operations manager (current) use of insulin ; Z79.4 - [facility] (current) use of insulin; Z79.4 - [facility] (current) use of insulin Is this a current diagnosis for this admission?: Yes (5) Primary hyperparathyroidism Is this a current diagnosis for this admission?: Yes - Plan Summary Plan Summary: Continue treatment
[2017-08-15] MEDS: LEVOFLOXACIN 750 MG/D5W RTU 750 MG/150 ML RTUPB IV SCH (20:51)
[2017-08-15] MEDS: INSULIN REG, HUMAN 100 UNIT/ML 3 ML VIAL (PYX) SUBCUT PRN (23:50)
[2017-08-16] MEDS: IPRATROPIUM/ALBUTEROL 0.5-2.5 MG/3 ML AMPUL NEB PRN ×3 (02:34→15:59)
[2017-08-16] MEDS: CEFEPIME 2 GM/D5W RTU 2 GM/50 ML RTUPB IV SCH ×2 (04:26→17:18)
[2017-08-16] MEDS: HEPARIN SOD (PORCINE) 5,000 UNIT/ML 1 ML SYRINGE SUBCUT SCH ×3 (05:59→21:11)
[2017-08-16] MEDS: NORMAL SALINE 1000 ML 1,000 ML IV PRN ×2 (08:27→21:14)
[2017-08-16] MEDS ORDERED: GABAPENTIN 250 MG/5 ML PO SCH (10:00)
[2017-08-16] MEDS: LOSARTAN POTASSIUM 25 MG TABLET PO SCH (12:03)
[2017-08-16] MEDS: ASPIRIN 81 MG TABLET, CHEWABLE PO SCH (12:04)
[2017-08-16] MEDS: MEMANTINE HCL 10 MG TABLET PO SCH (12:04)
[2017-08-16] MEDS: ASCORBIC ACID 500 MG TABLET PO SCH (12:04)
[2017-08-16] MEDS: AMLODIPINE BESYLATE 10 MG TABLET PO SCH (12:05)
[2017-08-16] MEDS: GABAPENTIN 250 MG/5 ML PO SCH (17:19)
[2017-08-16] MEDS: LEVOFLOXACIN 750 MG/D5W RTU 750 MG/150 ML RTUPB IV SCH (18:29)
--- NOTE | 2017-08-16 18:37 | PDOC CONSULTATION ---
Consultation Consult Date: 08/16/17 History of Present Illness Admission Date/PCP: 08/12/17 12:39 BAKARI BECKER MD History of Present Illness: Consultation was requested for malfunctioning G-tube. Patient is currently in IMCU and according to the Nakina there was some difficulty using her PEG tube in ICU. She was on bolus feeding at that time. She has been getting continuous feeding in IMCU and has had no issues. No history is obtainable from patient. She still has the originally placed PEG tube from June 2016 and the tube looks clean. The G-tube site also looks okay with a small amount of granulation tissue. Past Medical History Cardiac Medical History: Reports: Congestive Heart Failure, Hyperlipidema, Hypertension, Peripheral Vascular Disease, Other - Chronic diastolic dysfunction of left ventricle Pulmonary Medical History: Reports: Chronic Obstructive Pulmonary Disease (COPD) Endocrine Medical History: Reports: Diabetes Mellitus Type 2 Psychiatric Medical History: Reports: Dementia Denies: Depression Past Surgical History Past Surgical History: Reports: Orthopedic Surgery - Shoulder. 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 , Other - tracheostomy Social History Smoking Status: Never Smoker Frequency of Alcohol Use: None Hx Recreational Drug Use: No Drugs: Cocaine Hx Prescription Drug Abuse: No Family History Family History: None Parental Family History Reviewed: No Children Family History Reviewed: NA Sibling(s) Family History Reviewed.: NA Medication/Allergy Home Medications: Amlodipine Besylate [Norvasc 10 mg Tablet] 10 mg PO DAILY 12/16/16 Ascorbic Acid [Vitamin C 500 mg Tablet] 500 mg PO DAILY 12/16/16 Memantine HCl [Namenda 10 mg Tablet] 10 mg PO DAILY 12/16/16 Ondansetron HCl [Zofran 4 mg Tablet] 8 mg PO TIDP PRN 12/16/16 Albuterol Sulfate [Albuterol Sulfate 2.5mg/3 mL] 1 vial IH RTQ6HP PRN 08/12/17 Aspirin 81 mg PO DAILY 08/12/17 Gabapentin [Neurontin] 300 mg PO QPM 08/12/17 Insulin Aspart [Novolog Insulin 100 Unit/1 ml 10 ml] 0 unit SUBCUT .SLD SCALE Losartan Potassium [Cozaar 25 mg Tablet] 25 mg PO DAILY 08/12/17 Allergies/Adverse Reactions: alprazolam [From Xanax] Allergy (Verified 08/12/17 10:54) iodine [Iodine] Allergy (Verified 08/12/17 10:54) quetiapine fumarate [From Seroquel] Allergy (Verified 08/12/17 10:54) Review of Systems ROS unobtainable: Due to mental status Physical Exam Vital Signs: Temp Pulse Resp BP Pulse Ox 98.5 F 113 H 20 171/78 H 100 08/16/17 15:13 08/16/17 15:13 08/16/17 15:13 08/16/17 15:13 08/16/17 16:00 Pulse Oximeter Continuous Start: 08/12/17 15: 06 Freq: RTQ4 Status: Complete Document 08/12/17 20:24 [facility] (Rec: 08/12/17 21:45 [facility] [email or web address]) Pulse Oximetry Assessment Oxygen Saturation (92-100) 99 Oxygen Delivery Method Trach Collar Fraction of Inspired Oxygen (FIO2) 40 Equipment Usage Equipment in Use Continuous SpO2 Machine # N-9 Pulse Oximeter Continuous Start: 08/15/17 21: 04 Freq: RTQ4 Status: Active Document 08/16/17 16:00 [facility] (Rec: 08/16/17 17:02 [facility] [place] [id number]) Pulse Oximetry Assessment Oxygen Saturation (92-100) 100 Oxygen Flow Rate (L/min) 8 Oxygen Delivery Method Trach Collar Fraction of Inspired Oxygen (FIO2) 35 Equipment Usage Equipment in Use Continuous SpO2 Machine # n-13 Additional RT Notes Other BVM at bedside Intake & Output 08/15/17 08/16/17 08/17/17 06:59 06:59 06:59 Intake Total 2119 2314 0 Output Total 2250 1650 1000 Balance -131 664 -1000 Weight 63.3 kg 61.1 kg Exam: General: Patient is alert and has a tracheostomy HEENT: There is some pallor but no jaundice. PERRLA. Oropharynx normal Respiratory: She has some kyphosis and bilateral reduced breath sounds Cardiovascular: Heart sounds 1 and 2 normal with no murmurs. Abdominal: Not distended. Soft and nontender. Gastrostomy tube in the epigastrium Extremities: No edema Results Laboratory Results: 08/15/17 03:55 08/15/17 03:55 08/12/17 08/12/17 08/12/17 15:40 15:40 15:40 Creatine Kinase 40 CK-MB (CK-2) 1.62 Troponin I 0.056 NT-Pro-B Natriuret Pep 1470 H 08/12/17 08/12/17 08/13/17 21:40 21:40 03:49 Creatine Kinase 38 27 L CK-MB (CK-2) 1.52 Troponin I 0.059 NT-Pro-B Natriuret Pep 08/13/17 03:49 Creatine Kinase CK-MB (CK-2) 1.10 Troponin I 0.049 NT-Pro-B Natriuret Pep Impressions: Chest CT 08/12/17 00:00 IMPRESSION: RIGHT LOWER LOBE PNEUMONIA WITH ASSOCIATED SMALL PARAPNEUMONIC EFFUSION. ADDITIONAL CHRONIC CHANGES ABOVE. Chest X-Ray 08/13/17 06:00 IMPRESSION: 1. Interval increase in left basilar opacity from the previous study. Assessment & Plan - Diagnosis (1) Gastrostomy status Is this a current diagnosis for this admission?: Yes Plan: Her gastrostomy tube appeared to be functioning well at this time and I do not see any need to change it. Continue feeding (2) Feeding difficulty in adult Is this a current diagnosis for this admission?: Yes (3) Acute hypoxemic respiratory failure Is this a current diagnosis for this admission?: Yes
--- NOTE | 2017-08-16 18:46 | PDOC PROGRESS REPORT ---
Subjective Progress Note for:: 08/16/17 Subjective:: Patient was seen by the bedside, I discussed CODE STATUS with the patient's daughter, patient's son seems to be in agreement with DNR status but patient's daughter is not there yet. Physical Exam Vital Signs: Temp Pulse Resp BP Pulse Ox 98.5 F 113 H 20 171/78 H 100 08/16/17 15:13 08/16/17 15:13 08/16/17 15:13 08/16/17 15:13 08/16/17 16:00 Pulse Oximeter Continuous Start: 08/12/17 15: 06 Freq: RTQ4 Status: Complete Document 08/12/17 20:24 [facility] (Rec: 08/12/17 21:45 [facility] [email or web address]) Pulse Oximetry Assessment Oxygen Saturation (92-100) 99 Oxygen Delivery Method Trach Collar Fraction of Inspired Oxygen (FIO2) 40 Equipment Usage Equipment in Use Continuous SpO2 Machine # N-9 Pulse Oximeter Continuous Start: 08/15/17 21: 04 Freq: RTQ4 Status: Active Document 08/16/17 16:00 [facility] (Rec: 08/16/17 17:02 [facility] [id number]) Pulse Oximetry Assessment Oxygen Saturation (92-100) 100 Oxygen Flow Rate (L/min) 8 Oxygen Delivery Method Trach Collar Fraction of Inspired Oxygen (FIO2) 35 Equipment Usage Equipment in Use Continuous SpO2 Machine # [id number] Additional RT Notes Other BVM at bedside Intake & Output 08/15/17 08/16/17 08/17/17 06:59 06:59 06:59 Intake Total 2119 2314 0 Output Total 2250 1650 1000 Balance -131 664 -1000 Weight 63.3 kg 61.1 kg General appearance: PRESENT: mild distress Head exam: PRESENT: atraumatic, normocephalic Mouth exam: PRESENT: moist, tongue midline Neck exam: PRESENT: full ROM Respiratory exam: PRESENT: clear to auscultation monica Cardiovascular exam: PRESENT: RRR, +S1, +S2 Pulses: PRESENT: normal dorsalis pedis pul, +2 pedal pulses bilateral Vascular exam: PRESENT: normal capillary refill GI/Abdominal exam: PRESENT: normal bowel sounds, soft Rectal exam: PRESENT: deferred Neurological exam: PRESENT: alert. ABSENT: motor sensory deficit Psychiatric exam: PRESENT: appropriate affect, normal mood Skin exam: PRESENT: dry, intact, warm. ABSENT: cyanosis, rash Results Laboratory Results: 08/15/17 03:55 08/15/17 03:55 08/12/17 08/12/17 08/12/17 15:40 15:40 15:40 Creatine Kinase 40 CK-MB (CK-2) 1.62 Troponin I 0.056 NT-Pro-B Natriuret Pep 1470 H 08/12/17 08/12/17 08/13/17 21:40 21:40 03:49 Creatine Kinase 38 27 L CK-MB (CK-2) 1.52 Troponin I 0.059 NT-Pro-B Natriuret Pep 08/13/17 03:49 Creatine Kinase CK-MB (CK-2) 1.10 Troponin I 0.049 NT-Pro-B Natriuret Pep Impressions: Chest CT 08/12/17 00:00 IMPRESSION: RIGHT LOWER LOBE PNEUMONIA WITH ASSOCIATED SMALL PARAPNEUMONIC EFFUSION. ADDITIONAL CHRONIC CHANGES ABOVE. Chest X-Ray 08/13/17 06:00 IMPRESSION: 1. Interval increase in left basilar opacity from the previous study. Assessment & Plan - Diagnosis (1) Pneumonia Qualifiers: Pneumonia type: due to unspecified organism Laterality: left Lung location: lower lobe of lung Qualified Code(s): J18.1 - Lobar pneumonia, unspecified organism Is this a current diagnosis for this admission?: Yes (2) Hypercalcemia Is this a current diagnosis for this admission?: Yes (3) Dementia Qualifiers: Dementia type: unspecified type Dementia behavioral disturbance: without behavioral disturbance Qualified Code(s): F03.90 - Unspecified dementia without behavioral disturbance Is this a current diagnosis for this admission?: Yes (4) Uncontrolled diabetes mellitus Qualifiers: Diabetes mellitus type: type 2 Diabetes mellitus complication status: with neurologic complications Diabetes mellitus complication detail: with polyneuropathy Diabetes mellitus dedicated intermodal truck driver insulin use: with dedicated intermodal truck driver use Qualified Code(s): E11.42 - Type 2 diabetes mellitus with diabetic polyneuropathy; E11.65 - Type 2 diabetes mellitus with hyperglycemia; E11.65 - Type 2 diabetes mellitus with hyperglycemia; E11.65 - Type 2 diabetes mellitus with hyperglycemia; E11.65 - Type 2 diabetes mellitus with hyperglycemia; Z79.4 - long term (current) use of insulin; Z79.4 - jail (current) use of insulin ; Z79.4 - long term (current) use of insulin; Z79.4 - jail (current) use of insulin Is this a current diagnosis for this admission?: Yes (5) Primary hyperparathyroidism Is this a current diagnosis for this admission?: Yes
[2017-08-17] MEDS: HEPARIN SOD (PORCINE) 5,000 UNIT/ML 1 ML SYRINGE SUBCUT SCH ×3 (05:18→22:46)
[2017-08-17] MEDS: CEFEPIME 2 GM/D5W RTU 2 GM/50 ML RTUPB IV SCH ×2 (05:18→16:18)
[2017-08-17] MEDS: NORMAL SALINE 1000 ML 1,000 ML IV PRN (08:11)
[2017-08-17] MEDS: LOSARTAN POTASSIUM 25 MG TABLET PO SCH (10:06)
[2017-08-17] MEDS: AMLODIPINE BESYLATE 10 MG TABLET PO SCH (10:06)
[2017-08-17] MEDS: MEMANTINE HCL 10 MG TABLET PO SCH (10:06)
[2017-08-17] MEDS: ASPIRIN 81 MG TABLET, CHEWABLE PO SCH (10:06)
[2017-08-17] MEDS: ASCORBIC ACID 500 MG TABLET PO SCH (10:06)
[2017-08-17] MEDS: INSULIN REG, HUMAN 100 UNIT/ML 3 ML VIAL (PYX) SUBCUT PRN (13:51)
[2017-08-17] MEDS ORDERED: SCOPOLAMINE HYDROBROMIDE 1.5 MG PATCH.TD72 TD ONE (14:30)
--- NOTE | 2017-08-17 14:55 | PDOC PROGRESS REPORT ---
Subjective Progress Note for:: 08/17/17 Subjective:: She continues to develop hypoxemia due to mucous plugging of the tracheostomy tube, she requires multiple suctioning by RT and the nurse. Consultation is requested from surgery for a change of the tracheostomy tube yesterday I discussed CODE STATUS with this patient daughter I believe she needs to be a DNR , she has multiple comorbid conditions, she will be a good candidate for chest compression . She has a history of primary hyperparathyroidism, she probably have osteoporosis. Physical Exam Vital Signs: Temp Pulse Resp BP Pulse Ox 97.8 F 104 H 20 133/75 H 100 08/17/17 12:33 08/17/17 12:33 08/17/17 12:33 08/17/17 12:33 08/17/17 12:33 Pulse Oximeter Continuous Start: 08/12/17 15: 06 Freq: RTQ4 Status: Complete Document 08/12/17 20:24 [facility] (Rec: 08/12/17 21:45 [facility] [email or web address]) Pulse Oximetry Assessment Oxygen Saturation (92-100) 99 Oxygen Delivery Method Trach Collar Fraction of Inspired Oxygen (FIO2) 40 Equipment Usage Equipment in Use Continuous SpO2 Machine # N-9 Pulse Oximeter Continuous Start: 08/15/17 21: 04 Freq: RTQ4 Status: Active Document 08/17/17 11:30 [facility] (Rec: 08/17/17 12:40 [facility] [email or web address]) Pulse Oximetry Assessment Oxygen Saturation (92-100) 100 Oxygen Delivery Method T-piece Fraction of Inspired Oxygen (FIO2) 100 Equipment Usage Equipment in Use Continuous SpO2 Machine # N 13 Additional RT Notes Other BVM at bedside, bag lavaged for secretions pt had been desaturating even after increased in oxygen RN at bedside. pt recovered well Intake & Output 08/16/17 08/17/17 08/18/17 06:59 06:59 06:59 Intake Total 2314 2640 360 Output Total 1650 1600 600 Balance 664 1040 -240 Weight 61.1 kg 62.9 kg General appearance: PRESENT: mild distress Head exam: PRESENT: atraumatic, normocephalic Eye exam: ABSENT: scleral icterus Neck exam: PRESENT: tracheostomy Cardiovascular exam: PRESENT: RRR, +S1, +S2 Pulses: PRESENT: normal dorsalis pedis pul, +2 pedal pulses bilateral Vascular exam: PRESENT: normal capillary refill GI/Abdominal exam: PRESENT: normal bowel sounds, soft Rectal exam: PRESENT: deferred Neurological exam: PRESENT: alert Skin exam: PRESENT: dry, intact, warm Results Laboratory Results: 08/15/17 03:55 08/15/17 03:55 08/12/17 08/12/17 08/12/17 15:40 15:40 15:40 Creatine Kinase 40 CK-MB (CK-2) 1.62 Troponin I 0.056 NT-Pro-B Natriuret Pep 1470 H 08/12/17 08/12/17 08/13/17 21:40 21:40 03:49 Creatine Kinase 38 27 L CK-MB (CK-2) 1.52 Troponin I 0.059 NT-Pro-B Natriuret Pep 08/13/17 03:49 Creatine Kinase CK-MB (CK-2) 1.10 Troponin I 0.049 NT-Pro-B Natriuret Pep Impressions: Chest CT 08/12/17 00:00 IMPRESSION: RIGHT LOWER LOBE PNEUMONIA WITH ASSOCIATED SMALL PARAPNEUMONIC EFFUSION. ADDITIONAL CHRONIC CHANGES ABOVE. Chest X-Ray 08/13/17 06:00 IMPRESSION: 1. Interval increase in left basilar opacity from the previous study. Assessment & Plan - Diagnosis (1) Pneumonia Qualifiers: Pneumonia type: due to unspecified organism Laterality: left Lung location: lower lobe of lung Qualified Code(s): J18.1 - Lobar pneumonia, unspecified organism Is this a current diagnosis for this admission?: Yes (2) Hypercalcemia Is this a current diagnosis for this admission?: Yes (3) Dementia Qualifiers: Dementia type: unspecified type Dementia behavioral disturbance: without behavioral disturbance Qualified Code(s): F03.90 - Unspecified dementia without behavioral disturbance Is this a current diagnosis for this admission?: Yes (4) Uncontrolled diabetes mellitus Qualifiers: Diabetes mellitus type: type 2 Diabetes mellitus complication status: with neurologic complications Diabetes mellitus complication detail: with polyneuropathy Diabetes mellitus intermodal truck driver insulin use: with intermodal truck driver use Qualified Code(s): E11.42 - Type 2 diabetes mellitus with diabetic polyneuropathy; E11.65 - Type 2 diabetes mellitus with hyperglycemia; E11.65 - Type 2 diabetes mellitus with hyperglycemia; E11.65 - Type 2 diabetes mellitus with hyperglycemia; E11.65 - Type 2 diabetes mellitus with hyperglycemia; Z79.4 - truck terminal manager (current) use of insulin; Z79.4 - nursing home (current) use of insulin ; Z79.4 - nursing home (current) use of insulin; Z79.4 - nursing home (current) use of insulin Is this a current diagnosis for this admission?: Yes (5) Primary hyperparathyroidism Is this a current diagnosis for this admission?: Yes (6) Tracheostomy complication, unspecified Qualifiers: Tracheostomy complication: stoma malfunction Qualified Code(s): J95.03 - Malfunction of tracheostomy stoma Is this a current diagnosis for this admission?: Yes
[2017-08-17] MEDS: IPRATROPIUM/ALBUTEROL 0.5-2.5 MG/3 ML AMPUL NEB PRN (17:16)
[2017-08-17 18:24] LABS: ARTERIAL BLOOD BASE EXCESS -4.4 mmol/L; ARTERIAL BLOOD O2 SATURATION 90.7 % (94-98)
[2017-08-17 18:24] LABS: ABSOLUTE BASOPHILS # (AUTO) 0.2 10^3/uL (0.0-0.2); ABSOLUTE EOSINOPHILS # (AUTO) 0.1 10^3/uL (0.0-0.6); ABSOLUTE MONOCYTES (AUTO) 0.9 10^3/uL (0.1-1.4); ABSOLUTE NEUT (AUTO) 16.3 10^3/uL (1.7-8.2); EOSINOPHILS % (AUTO) 0.5 % (0-6); HEMATOCRIT 33.2 % (36.0-47.0); HEMOGLOBIN 10.9 g/dL (12.0-15.5); HGB HCT DIFFERENCE -0.5; LYMPHOCYTES % (AUTO) 10.5 % (13-45); MEAN CORPUSCULAR HEMOGLOBIN 29.4 pg (27.0-33.4); MEAN CORPUSCULAR HGB CONC 32.8 g/dL (32.0-36.0); MEAN CORPUSCULAR VOLUME 90 fl (80-97); MONOCYTES % (AUTO) 4.6 % (3-13); RED CELL DISTRIBUTION WIDTH 14.7 % (11.5-14.0); SEGMENTED NEUTROPHILS % (AUTO) 83.4 % (42-78); WHITE BLOOD COUNT 19.5 10^3/uL (4.0-10.5)
[2017-08-17 18:45] LABS: ANION GAP 16 (5-19); BLOOD UREA NITROGEN 19 mg/dL (7-20); CALCIUM 10.6 mg/dL (8.4-10.2); CARBON DIOXIDE 20 mmol/L (22-30); CHLORIDE 116 mmol/L (98-107); CREATININE RESULT 0.63 mg/dL (0.52-1.25); GLUCOSE 167 mg/dL (75-110); SODIUM 151.6 mmol/L (137-145)
[2017-08-17] MEDS: GABAPENTIN 250 MG/5 ML PO SCH (19:37)
[2017-08-17] MEDS ORDERED: VANCOMYCIN HCL 0 MG in DEXTROSE 5%-WATER 250 ML IV NR (20:00)
[2017-08-17] MEDS ORDERED: POTASSI CL 20 MEQ/1/2NS 1L 20 MEQ/1,000 ML RTUINJ IV ONE (20:12)
[2017-08-17] MEDS: POTASSI CL 20 MEQ/1/2NS 1L 20 MEQ/1,000 ML RTUINJ IV PRN (20:18)
[2017-08-17] MEDS: LEVOFLOXACIN 750 MG/D5W RTU 750 MG/150 ML RTUPB IV SCH (20:19)
--- NOTE | 2017-08-17 20:45 | PDOC CONSULTATION ---
Consultation Consult Date: 08/17/17 Attending physician:: HAILEE JENNINGS Consult reason:: tracheostomy change History of Present Illness Admission Date/PCP: 08/12/17 12:39 BAKARI BECKER MD History of Present Illness: This is an 81 yrold female who had a tracheostomy about one year ago. She had the tube changed about 2 months ago. She was recently on ventilator last week and required some bagging this morning for some desaturation. A consult has been placed to change her tracheostomy tube. Past Medical History Cardiac Medical History: Reports: Congestive Heart Failure, Hyperlipidema, Hypertension, Peripheral Vascular Disease, Other - Chronic diastolic dysfunction of left ventricle Pulmonary Medical History: Reports: Chronic Obstructive Pulmonary Disease (COPD) Endocrine Medical History: Reports: Diabetes Mellitus Type 2 Psychiatric Medical History: Reports: Dementia Denies: Depression Past Surgical History Past Surgical History: Reports: Orthopedic Surgery - Shoulder. 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 , Other - tracheostomy Social History Smoking Status: Never Smoker Frequency of Alcohol Use: None Hx Recreational Drug Use: No Drugs: Cocaine Hx Prescription Drug Abuse: No Family History Family History: None Parental Family History Reviewed: No Children Family History Reviewed: No Sibling(s) Family History Reviewed.: No Medication/Allergy Home Medications: Amlodipine Besylate [Norvasc 10 mg Tablet] 10 mg PO DAILY 12/16/16 Ascorbic Acid [Vitamin C 500 mg Tablet] 500 mg PO DAILY 12/16/16 Memantine HCl [Namenda 10 mg Tablet] 10 mg PO DAILY 12/16/16 Ondansetron HCl [Zofran 4 mg Tablet] 8 mg PO TIDP PRN 12/16/16 Albuterol Sulfate [Albuterol Sulfate 2.5mg/3 mL] 1 vial IH RTQ6HP PRN 08/12/17 Aspirin 81 mg PO DAILY 08/12/17 Gabapentin [Neurontin] 300 mg PO QPM 08/12/17 Insulin Aspart [Novolog Insulin 100 Unit/1 ml 10 ml] 0 unit SUBCUT .SLD SCALE Losartan Potassium [Cozaar 25 mg Tablet] 25 mg PO DAILY 08/12/17 Allergies/Adverse Reactions: alprazolam [From Xanax] Allergy (Verified 08/12/17 10:54) iodine [Iodine] Allergy (Verified 08/12/17 10:54) quetiapine fumarate [From Seroquel] Allergy (Verified 08/12/17 10:54) Physical Exam Vital Signs: Temp Pulse Resp BP Pulse Ox 97.8 F 105 H 30 H 130/56 H 97 08/17/17 12:33 08/17/17 18:00 08/17/17 18:00 08/17/17 18:00 08/17/17 18:00 Pulse Oximeter Continuous Start: 08/12/17 15: 06 Freq: RTQ4 Status: Complete Document 08/12/17 20:24 [facility] (Rec: 08/12/17 21:45 [facility] [email or web address]) Pulse Oximetry Assessment Oxygen Saturation (92-100) 99 Oxygen Delivery Method Trach Collar Fraction of Inspired Oxygen (FIO2) 40 Equipment Usage Equipment in Use Continuous SpO2 Machine # N-9 Pulse Oximeter Continuous Start: 08/15/17 21: 04 Freq: RTQ4 Status: Complete Document 08/17/17 18:10 [facility] (Rec: 08/17/17 19:36 [facility] [email or web address]_[email or web address]_) Pulse Oximetry Assessment Equipment Usage Equipment Discontinued Continuous SpO2 Machine # N-13 Intake & Output 08/16/17 08/17/17 08/18/17 06:59 06:59 06:59 Intake Total 2314 2640 1010 Output Total 1650 1600 600 Balance 664 1040 410 Weight 61.1 kg 62.9 kg General appearance: PRESENT: no acute distress Head exam: PRESENT: atraumatic Eye exam: PRESENT: conjunctiva pink Neck exam: PRESENT: tracheostomy Respiratory exam: PRESENT: clear to auscultation monica Cardiovascular exam: PRESENT: RRR GI/Abdominal exam: PRESENT: normal bowel sounds Neurological exam: PRESENT: alert, awake Results Laboratory Results: 08/17/17 18:10 08/17/17 18:10 08/17/17 08/17/17 08/17/17 18:10 18:10 18:10 WBC 19.5 H RBC 3.70 L Hgb 10.9 L Hct 33.2 L MCV 90 MCH 29.4 MCHC 32.8 RDW 14.7 H Plt Count 327 Seg Neutrophils % 83.4 H Lymphocytes % 10.5 L Monocytes % 4.6 Eosinophils % 0.5 Basophils % 1.0 Absolute Neutrophils 16.3 H Absolute Lymphocytes 2.0 Absolute Monocytes 0.9 Absolute Eosinophils 0.1 Absolute Basophils 0.2 Carbonic Acid HCO3/H2CO3 Ratio ABG pH ABG pCO2 ABG pO2 ABG HCO3 ABG O2 Saturation ABG Base Excess FiO2 Sodium 151.6 H Potassium 3.0 L* Chloride 116 H Carbon Dioxide 20 L Anion Gap 16 BUN 19 Creatinine 0.63 Est GFR ( Amer) > 60 Est GFR (Non-Af Amer) > 60 Glucose 167 H Calcium 10.6 H Magnesium 1.7 08/17/17 18:13 WBC RBC Hgb Hct MCV MCH MCHC RDW Plt Count Seg Neutrophils % Lymphocytes % Monocytes % Eosinophils % Basophils % Absolute Neutrophils Absolute Lymphocytes Absolute Monocytes Absolute Eosinophils Absolute Basophils Carbonic Acid 1.28 HCO3/H2CO3 Ratio 16:1 ABG pH 7.32 L ABG pCO2 42.6 ABG pO2 63.8 L ABG HCO3 21.5 ABG O2 Saturation 90.7 L ABG Base Excess -4.4 FiO2 50% Sodium Potassium Chloride Carbon Dioxide Anion Gap BUN Creatinine Est GFR ( Amer) Est GFR (Non-Af Amer) Glucose Calcium Magnesium 08/12/17 08/12/17 08/12/17 15:40 15:40 15:40 Creatine Kinase 40 CK-MB (CK-2) 1.62 Troponin I 0.056 NT-Pro-B Natriuret Pep 1470 H 08/12/17 08/12/17 08/13/17 21:40 21:40 03:49 Creatine Kinase 38 27 L CK-MB (CK-2) 1.52 Troponin I 0.059 NT-Pro-B Natriuret Pep 08/13/17 03:49 Creatine Kinase CK-MB (CK-2) 1.10 Troponin I 0.049 NT-Pro-B Natriuret Pep Impressions: Chest CT 08/12/17 00:00 IMPRESSION: RIGHT LOWER LOBE PNEUMONIA WITH ASSOCIATED SMALL PARAPNEUMONIC EFFUSION. ADDITIONAL CHRONIC CHANGES ABOVE. Assessment & Plan - Diagnosis (1) Tracheostomy dependence Is this a current diagnosis for this admission?: Yes Plan: The tracheostomy was changed a new Shiley size 6 cuffed tube was placed.
--- NOTE | 2017-08-17 21:38 | PROGRESS NOTE E ---
Progress Note NAME: BRIANA BRADY : 1935 AGE: 81Y DATE: 08/17/2017 ROOM: 612 SUBJECTIVE: This is an 81-year-old female who is basically a patient of Dr. Christensen, admitted to the hospital for pneumonia, respiratory failure, and the patient recently the trach cuff was replaced, and patient is on and off hypoxemic episodes today because of most likely the cuff must have deflected. The patient was pretty much *------* IMCU and the patient was bagged and brought to the ICU. The patient at this point the bag was removed and patient is doing fine. The patient's potassium is low and white count was elevated. The patient is currently laying in a comfortable position and no other distress, the family at the bedside. A patient discussed with the family members and patient apparently still is a FULL CODE. The patient's potassium was currently placed and consulted Dr. Christianson. According to the daughters and the son, the patient was taking Eliquis for the irregular heartbeat and the gabapentin before, but the patient is currently not taking, not sure why. The patient is currently on a heparin subcutaneous q.8 h. The patient is also scheduled for the echocardiogram according to the daughters for the heart condition. The patient otherwise has significant multiple comorbidities. OBJECTIVE: VITAL SIGNS: Blood pressure 130/56, respirations 30 currently on the trach of 97%, pulse is 105. GENERAL: The patient is alert, awake, no distress. HEENT: Head is normocephalic. PERRLA. Trach is intact. LUNGS: No wheezing. HEART: S1,S2 present. ABDOMEN: Soft. Bowel sounds present. EXTREMITIES: No edema. DIAGNOSTICS: WBC 19.5, hemoglobin 10.9, platelets 257. Sodium 151, potassium 3.0, BUN 19, creatinine 0.33. Pro time is 0.6. Microbiology: The patient has Pseudomonas currently on cefepime and Levaquin. ASSESSMENT: 1. ACUTE RESPIRATORY DISTRESS. 2. CHRONIC TRACH. 3. PNEUMONIA WITH PSEUDOMONAS. 4. DIABETES MELLITUS. 5. HYPERCALCEMIA. 6. DEMENTIA. 7. PRIMARY HYPERPARATHYROIDISM. PLAN: Follow with professor of public administration. Start the patient on vancomycin with elevated white count and repeat chest x-ray and replace the potassium and continue IV fluids and continue to monitor the patient. Consulted Cardiology for *------*. Very extensive discussions with the patient's family including the son and the daughters regarding the patient's current condition with the poor prognosis. She currently is a FULL CODE. I hope that the patient continues to improve. More than 45 minutes spent examining the patient in the ICU and discussing the case with the patient's family. DICTATING PHYSICIAN: FARHANA CHANEL M.D. [id number] [facility]#: [id number] Jacques ID: [id number] JOB#: [id number] ACCT: [id number] cc: >
[2017-08-17] MEDS: VANCOMYCIN HCL 750 MG in DEXTROSE 5%-WATER 250 ML IV SCH (22:47)
[2017-08-17] MEDS: POTASSIUM CHLORIDE 20 MEQ/15 ML UDCUP PEG SCH (23:11)
[2017-08-18] MEDS: IPRATROPIUM/ALBUTEROL 0.5-2.5 MG/3 ML AMPUL NEB PRN ×2 (00:57→09:07)
--- NOTE | 2017-08-18 01:29 | RADIOLOGY REPORT (SQ) ---
EXAM DESCRIPTION: CHEST SINGLE VIEW COMPLETED DATE/TIME: 08/17/2017 8:16 pm REASON FOR STUDY: pnemonia COMPARISON: 08/13/2017. EXAM PARAMETERS: NUMBER OF VIEWS: One view. TECHNIQUE: Single frontal radiographic view of the chest acquired. RADIATION DOSE: NA LIMITATIONS: None. FINDINGS: LUNGS AND PLEURA: Moderate right basilar opacity -effusion. Small streakiness of the left lower lobe. Small opacity -effusion of the left costophrenic angle. Small right lung volume. Mode rate left lung volume. MEDIASTINUM AND HILAR STRUCTURES: No masses. Contour normal. HEART AND VASCULAR STRUCTURES: Mild enlargement of the cardiac silhouette. Atherosclerosis. BONES: No acute findings. HARDWARE: Tracheostomy. OTHER: No other significant finding. IMPRESSION: No significant interval change. TECHNICAL DOCUMENTATION: JOB ID: [id number] [employer]- All Rights Reserved
[2017-08-18 04:22] LABS: ABSOLUTE BASOPHILS # (AUTO) 0.2 10^3/uL (0.0-0.2); ABSOLUTE EOSINOPHILS # (AUTO) 0.8 10^3/uL (0.0-0.6); ABSOLUTE LYMPHOCYTES (AUTO) 2.3 10^3/uL (0.5-4.7); ABSOLUTE MONOCYTES (AUTO) 1.5 10^3/uL (0.1-1.4); ABSOLUTE NEUT (AUTO) 8.7 10^3/uL (1.7-8.2); BASOPHILS % (AUTO) 1.6 % (0-2); EOSINOPHILS % (AUTO) 5.8 % (0-6); HEMOGLOBIN 10.9 g/dL (12.0-15.5); HGB HCT DIFFERENCE -0.3; LYMPHOCYTES % (AUTO) 16.7 % (13-45); MEAN CORPUSCULAR HEMOGLOBIN 29.4 pg (27.0-33.4); MEAN CORPUSCULAR HGB CONC 33.2 g/dL (32.0-36.0); MEAN CORPUSCULAR VOLUME 89 fl (80-97); MONOCYTES % (AUTO) 11.3 % (3-13); RED BLOOD COUNT 3.72 10^6/uL (3.72-5.28); RED CELL DISTRIBUTION WIDTH 14.7 % (11.5-14.0); SEGMENTED NEUTROPHILS % (AUTO) 64.6 % (42-78); WHITE BLOOD COUNT 13.5 10^3/uL (4.0-10.5)
[2017-08-18] MEDS: CEFEPIME 2 GM/D5W RTU 2 GM/50 ML RTUPB IV SCH ×2 (05:03→17:17)
[2017-08-18] MEDS: HEPARIN SOD (PORCINE) 5,000 UNIT/ML 1 ML SYRINGE SUBCUT SCH ×3 (05:04→21:24)
[2017-08-18 05:26] LABS: BLOOD UREA NITROGEN 19 mg/dL (7-20); CALCIUM 10.6 mg/dL (8.4-10.2); CREATININE RESULT 0.68 mg/dL (0.52-1.25); GLUCOSE 92 mg/dL (75-110)
[2017-08-18 05:27] LABS: ALANINE AMINOTRANSFERASE 46 U/L (9-52); ALBUMIN 3.2 g/dL (3.5-5.0); ALKALINE PHOSPHATASE 86 U/L (38-126); ANION GAP 12 (5-19); ASPARTATE AMINO TRANSFERASE 32 U/L (14-36); BILIRUBIN,DIRECT 0.5 mg/dL (0.0-0.4); BILIRUBIN,TOTAL 0.7 mg/dL (0.2-1.3); CARBON DIOXIDE 22 mmol/L (22-30); CHLORIDE 117 mmol/L (98-107); POTASSIUM 3.5 mmol/L (3.6-5.0); SODIUM 150.6 mmol/L (137-145)
[2017-08-18 05:28] LABS: MAGNESIUM 1.7 mg/dL (1.6-2.3); PHOSPHORUS 1.7 mg/dL (2.5-4.5); TOTAL PROTEIN 6.5 g/dL (6.3-8.2)
[2017-08-18 05:30] LABS: ARTERIAL BLOOD BASE EXCESS -1.2 mmol/L; ARTERIAL BLOOD O2 SATURATION 80.4 % (94-98)
[2017-08-18] MEDS: POTASSIUM CHLORIDE 20 MEQ/15 ML UDCUP PEG SCH ×3 (06:27→23:38)
--- NOTE | 2017-08-18 07:55 | RADIOLOGY REPORT (SQ) ---
EXAM DESCRIPTION: CHEST SINGLE VIEW COMPLETED DATE/TIME: 08/18/2017 6:09 am REASON FOR STUDY: Pneumonia COMPARISON: 08/17/2017. EXAM PARAMETERS: NUMBER OF VIEWS: One view. TECHNIQUE: Single frontal radiographic view of the chest acquired. RADIATION DOSE: NA LIMITATIONS: None. FINDINGS: LUNGS AND PLEURA: Small to moderate bilateral lower hemithoracic haziness -effusion. Mode rate lung volume. MEDIASTINUM AND HILAR STRUCTURES: No masses. Contour normal. HEART AND VASCULAR STRUCTURES: Normal cardiac silhouette size. Atherosclerosis. BONES: No acute findings. HARDWARE: Tracheostomy. OTHER: No other significant finding. IMPRESSION: No significant interval change. TECHNICAL DOCUMENTATION: JOB ID: [id number] [employer]- All Rights Reserved
[2017-08-18] MEDS ORDERED: SODIUM PHOS,M-BASIC-D-BASIC 30 MMOL in NORMAL SALINE 250 ML IV ONE (08:00)
[2017-08-18] MEDS: PHOSPHORUS #1 250 MG TABLET PEG SCH ×2 (10:00→17:21)
[2017-08-18] MEDS: ASPIRIN 81 MG TABLET, CHEWABLE PO SCH (10:01)
[2017-08-18] MEDS: AMLODIPINE BESYLATE 10 MG TABLET PO SCH (10:01)
[2017-08-18] MEDS: LOSARTAN POTASSIUM 25 MG TABLET PO SCH (10:01)
[2017-08-18] MEDS: ASCORBIC ACID 500 MG TABLET PO SCH (10:02)
[2017-08-18] MEDS: VANCOMYCIN HCL 750 MG in DEXTROSE 5%-WATER 250 ML IV SCH ×2 (10:03→21:24)
[2017-08-18] MEDS: ONDANSETRON HCL 8 MG TABLET PO PRN (10:03)
--- NOTE | 2017-08-18 11:01 | PDOC PROGRESS REPORT ---
Subjective Progress Note for:: 08/18/17 Subjective:: Patient is currently doing fair. Patient seen by Dr. Christianson put on a vent no other events happens overnight Patient also seen by the cardiology and currently all stable No other nursing concerns As with the family no other concerns Physical Exam Vital Signs: Temp Pulse Resp BP Pulse Ox 98.1 F 63 10 L 105/42 L 99 08/18/17 04:00 08/18/17 07:58 08/18/17 10:40 08/18/17 10:40 08/18/17 10:40 Pulse Oximeter Continuous Start: 08/12/17 15: 06 Freq: RTQ4 Status: Complete Document 08/12/17 20:24 [facility] (Rec: 08/12/17 21:45 [facility] [email or web address]) Pulse Oximetry Assessment Oxygen Saturation (92-100) 99 Oxygen Delivery Method Trach Collar Fraction of Inspired Oxygen (FIO2) 40 Equipment Usage Equipment in Use Continuous SpO2 Machine # N-9 Pulse Oximeter Continuous Start: 08/15/17 21: 04 Freq: RTQ4 Status: Complete Document 08/17/17 18:10 [facility] (Rec: 08/17/17 19:36 [facility] [email or web address]) Pulse Oximetry Assessment Equipment Usage Equipment Discontinued Continuous SpO2 Machine # N-13 Intake & Output 08/17/17 08/18/17 08/19/17 06:59 06:59 06:59 Intake Total 2640 1899 Output Total 1600 1145 120 Balance 1040 754 -120 Weight 62.9 kg 64.3 kg General appearance: PRESENT: no acute distress Eye exam: PRESENT: PERRLA Mouth exam: PRESENT: dry mucosa Additional comments: Trach site is intact infected currently on vent Neck exam: ABSENT: JVD Respiratory exam: PRESENT: clear to auscultation monica Cardiovascular exam: PRESENT: +S1, +S2 GI/Abdominal exam: PRESENT: normal bowel sounds, soft Extremities exam: ABSENT: pedal edema Neurological exam: PRESENT: alert Psychiatric exam: PRESENT: anxious Results Laboratory Results: 08/18/17 03:59 08/18/17 03:59 08/17/17 08/17/17 08/17/17 18:10 18:10 18:10 WBC 19.5 H RBC 3.70 L Hgb 10.9 L Hct 33.2 L MCV 90 MCH 29.4 MCHC 32.8 RDW 14.7 H Plt Count 327 Seg Neutrophils % 83.4 H Lymphocytes % 10.5 L Monocytes % 4.6 Eosinophils % 0.5 Basophils % 1.0 Absolute Neutrophils 16.3 H Absolute Lymphocytes 2.0 Absolute Monocytes 0.9 Absolute Eosinophils 0.1 Absolute Basophils 0.2 Carbonic Acid HCO3/H2CO3 Ratio ABG pH ABG pCO2 ABG pO2 ABG HCO3 ABG O2 Saturation ABG Base Excess FiO2 Sodium 151.6 H Potassium 3.0 L* Chloride 116 H Carbon Dioxide 20 L Anion Gap 16 BUN 19 Creatinine 0.63 Est GFR ( Amer) > 60 Est GFR (Non-Af Amer) > 60 Glucose 167 H Lactic Acid Calcium 10.6 H Phosphorus Magnesium 1.7 Total Bilirubin AST ALT Alkaline Phosphatase Total Protein Albumin 08/17/17 08/18/17 08/18/17 18:13 03:59 03:59 WBC 13.5 H RBC 3.72 Hgb 10.9 L Hct 33.0 L MCV 89 MCH 29.4 MCHC 33.2 RDW 14.7 H Plt Count 286 Seg Neutrophils % 64.6 Lymphocytes % 16.7 Monocytes % 11.3 Eosinophils % 5.8 Basophils % 1.6 Absolute Neutrophils 8.7 H Absolute Lymphocytes 2.3 Absolute Monocytes 1.5 H Absolute Eosinophils 0.8 H Absolute Basophils 0.2 Carbonic Acid 1.28 HCO3/H2CO3 Ratio 16:1 ABG pH 7.32 L ABG pCO2 42.6 ABG pO2 63.8 L ABG HCO3 21.5 ABG O2 Saturation 90.7 L ABG Base Excess -4.4 FiO2 50% Sodium 150.6 H Potassium 3.5 L Chloride 117 H Carbon Dioxide 22 Anion Gap 12 BUN 19 Creatinine 0.68 Est GFR ( Amer) > 60 Est GFR (Non-Af Amer) > 60 Glucose 92 Lactic Acid Calcium 10.6 H Phosphorus 1.7 L Magnesium 1.7 Total Bilirubin 0.7 AST 32 ALT 46 Alkaline Phosphatase 86 Total Protein 6.5 Albumin 3.2 L 08/18/17 08/18/17 03:59 04:55 WBC RBC Hgb Hct MCV MCH MCHC RDW Plt Count Seg Neutrophils % Lymphocytes % Monocytes % Eosinophils % Basophils % Absolute Neutrophils Absolute Lymphocytes Absolute Monocytes Absolute Eosinophils Absolute Basophils Carbonic Acid 1.29 HCO3/H2CO3 Ratio 18:1 ABG pH 7.37 ABG pCO2 43.0 ABG pO2 45.9 L ABG HCO3 24.1 ABG O2 Saturation 80.4 L ABG Base Excess -1.2 FiO2 50% Sodium Potassium Chloride Carbon Dioxide Anion Gap BUN Creatinine Est GFR ( Amer) Est GFR (Non-Af Amer) Glucose Lactic Acid 1.0 Calcium Phosphorus Magnesium Total Bilirubin AST ALT Alkaline Phosphatase Total Protein Albumin 08/12/17 08/12/17 08/12/17 15:40 15:40 15:40 Creatine Kinase 40 CK-MB (CK-2) 1.62 Troponin I 0.056 NT-Pro-B Natriuret Pep 1470 H 08/12/17 08/12/17 08/13/17 21:40 21:40 03:49 Creatine Kinase 38 27 L CK-MB (CK-2) 1.52 Troponin I 0.059 NT-Pro-B Natriuret Pep 08/13/17 03:49 Creatine Kinase CK-MB (CK-2) 1.10 Troponin I 0.049 NT-Pro-B Natriuret Pep Impressions: Chest CT 08/12/17 00:00 IMPRESSION: RIGHT LOWER LOBE PNEUMONIA WITH ASSOCIATED SMALL PARAPNEUMONIC EFFUSION. ADDITIONAL CHRONIC CHANGES ABOVE. Chest X-Ray 08/18/17 06:00 IMPRESSION: No significant interval change. Assessment & Plan - Diagnosis (1) Acute respiratory failure Qualifiers: Respiratory failure complication: hypoxia Qualified Code(s): J96.01 - Acute respiratory failure with hypoxia Is this a current diagnosis for this admission?: Yes Plan: Currently on vent management With the pulmonary (2) Gastrostomy status Is this a current diagnosis for this admission?: Yes Plan: Continues to feeding through the PEG tube (3) Pneumonia Qualifiers: Pneumonia type: due to unspecified organism Laterality: left Lung location: lower lobe of lung Qualified Code(s): J18.1 - Lobar pneumonia, unspecified organism Is this a current diagnosis for this admission?: Yes Plan: continue IV antibiotic (4) Primary hyperparathyroidism Is this a current diagnosis for this admission?: Yes (5) Tracheostomy complication, unspecified Qualifiers: Tracheostomy complication: stoma malfunction Qualified Code(s): J95.03 - Malfunction of tracheostomy stoma Is this a current diagnosis for this admission?: Yes (6) Dementia Qualifiers: Dementia type: unspecified type Dementia behavioral disturbance: without behavioral disturbance Qualified Code(s): F03.90 - Unspecified dementia without behavioral disturbance Is this a current diagnosis for this admission?: Yes - Time Time Spent with patient: 15-24 minutes Critical Time spent with patient: 15-24 minutes Medications reviewed and adjusted accordingly: Yes Anticipated discharge: Other Within: Other - Inpatient Certification Medical Necessity: Need Close Monitoring Due to Risk of Patient Decompensation, Need for IV Antibiotics Post Hospital Care: D/C Claims Sorter Documentation - Plan Summary Plan Summary: Continues to current medications Discussed with the family and other coordinate care with other consulting physicians
[2017-08-18 11:18] LABS: ARTERIAL BLOOD BASE EXCESS -3.4 mmol/L; ARTERIAL BLOOD O2 SATURATION 98.8 % (94-98)
[2017-08-18] MEDS: MEMANTINE HCL 10 MG TABLET PO SCH (11:42)
--- NOTE | 2017-08-18 12:06 | PDOC CONSULTATION ---
Consultation Consult Date: 08/18/17 Attending physician:: BAKARI BECKER Consult reason:: Cardiac dysrhythmia History of Present Illness Admission Date/PCP: 08/12/17 12:39 BAKARI BECKER MD Patient complains of: Shortness of breath History of Present Illness: This is an 81 yrold female who had a tracheostomy about one year ago. She had the tube changed about 2 months ago. She was recently on ventilator last week and required some bagging this morning for some desaturation. A consult has been placed to change her tracheostomy tube. This history was reviewed and confirmed. It seems patient was sent to the ER because of low oxygen saturation. She was noted to be in respiratory distress. It was noted that patient has dysfunction of the tracheostomy tube. Yesterday she was noted to have first-degree AV block and some bundle branch block pattern. I was consulted because of cardiac dysrhythmia. Patient currently comfortable. And is not noted to have any chest discomfort. Past Medical History Cardiac Medical History: Reports: Congestive Heart Failure, Hyperlipidema, Hypertension, Peripheral Vascular Disease, Other - Chronic diastolic dysfunction of left ventricle Pulmonary Medical History: Reports: Chronic Obstructive Pulmonary Disease (COPD) Endocrine Medical History: Reports: Diabetes Mellitus Type 2 Psychiatric Medical History: Reports: Dementia Denies: Depression Past Surgical History Past Surgical History: Reports: Orthopedic Surgery - Shoulder. 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 , Other - tracheostomy Social History Smoking Status: Never Smoker Frequency of Alcohol Use: None Hx Recreational Drug Use: No Drugs: Cocaine Hx Prescription Drug Abuse: No Family History Family History: Reviewed & Not Pertinent Parental Family History Reviewed: Yes Children Family History Reviewed: Yes Sibling(s) Family History Reviewed.: Yes Medication/Allergy Home Medications: Amlodipine Besylate [Norvasc 10 mg Tablet] 10 mg PO DAILY 12/16/16 Ascorbic Acid [Vitamin C 500 mg Tablet] 500 mg PO DAILY 12/16/16 Memantine HCl [Namenda 10 mg Tablet] 10 mg PO DAILY 12/16/16 Ondansetron HCl [Zofran 4 mg Tablet] 8 mg PO TIDP PRN 12/16/16 Albuterol Sulfate [Albuterol Sulfate 2.5mg/3 mL] 1 vial IH RTQ6HP PRN 08/12/17 Aspirin 81 mg PO DAILY 08/12/17 Gabapentin [Neurontin] 300 mg PO QPM 08/12/17 Insulin Aspart [Novolog Insulin 100 Unit/1 ml 10 ml] 0 unit SUBCUT .SLD SCALE Losartan Potassium [Cozaar 25 mg Tablet] 25 mg PO DAILY 08/12/17 Allergies/Adverse Reactions: alprazolam [From Xanax] Allergy (Verified 08/12/17 10:54) iodine [Iodine] Allergy (Verified 08/12/17 10:54) quetiapine fumarate [From Seroquel] Allergy (Verified 08/12/17 10:54) Physical Exam Vital Signs: Temp Pulse Resp BP Pulse Ox 98.1 F 63 10 L 105/42 L 100 08/18/17 04:00 08/18/17 07:58 08/18/17 10:40 08/18/17 10:40 08/18/17 11:34 Pulse Oximeter Continuous Start: 08/12/17 15: 06 Freq: RTQ4 Status: Complete Document 08/12/17 20:24 [facility] (Rec: 08/12/17 21:45 [facility] [email or web address]) Pulse Oximetry Assessment Oxygen Saturation (92-100) 99 Oxygen Delivery Method Trach Collar Fraction of Inspired Oxygen (FIO2) 40 Equipment Usage Equipment in Use Continuous SpO2 Machine # N-9 Pulse Oximeter Continuous Start: 08/15/17 21: 04 Freq: RTQ4 Status: Complete Document 08/17/17 18:10 [facility] (Rec: 08/17/17 19:36 [facility] [email or web address]) Pulse Oximetry Assessment Equipment Usage Equipment Discontinued Continuous SpO2 Machine # N-13 Intake & Output 08/17/17 08/18/17 08/19/17 06:59 06:59 06:59 Intake Total 2640 1899 Output Total 1600 1145 120 Balance 1040 754 -120 Weight 62.9 kg 64.3 kg Exam: GENERAL: well-nourished and in no acute distress. Patient is alert but not oriented to place time or person. HEAD: Atraumatic, normocephalic. EYES: Pupils equal round and reactive to light, extraocular movements intact, sclera anicteric, conjunctiva are normal. ENT: TMs normal, nares patent, oropharynx clear without exudates. Moist mucous membranes. No oral ulcerations or bleeding gums noted NECK: supple without lymphadenopathy or JVD. Trachea is central with tracheostomy. No cervical or axillary lymphadenopathy noted. Carotids are 2+ LUNGS: Breath sounds bibasilar fine crackles at bases. Right basal dullness noted. CHEST: Palpation of chest wall shows no significant chest wall tenderness. 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 ABDOMEN: Soft, no significant tenderness appreciated, normoactive bowel sounds. No guarding, no rebound. No rigidity noted . No masses appreciated. EXTREMITIES: Pedal pulses are 1-2+, no calf tenderness noted, Trace + pedal edema noted. No clubbing or cyanosis. NEUROLOGICAL: Patient is alert but is not able to participate in neurological exam because of patient's current mental status PSYCH: Patient cannot participate in a neurologic and psych exam because of the patient's current mental status SKIN: No significant ecchymosis, rash, ulcerations or signs of pruritus noted. MUSCULOSKELETAL EXAM: No significant joint swelling noted. Results Laboratory Results: 08/18/17 03:59 08/18/17 03:59 08/17/17 08/17/17 08/17/17 18:10 18:10 18:10 WBC 19.5 H RBC 3.70 L Hgb 10.9 L Hct 33.2 L MCV 90 MCH 29.4 MCHC 32.8 RDW 14.7 H Plt Count 327 Seg Neutrophils % 83.4 H Lymphocytes % 10.5 L Monocytes % 4.6 Eosinophils % 0.5 Basophils % 1.0 Absolute Neutrophils 16.3 H Absolute Lymphocytes 2.0 Absolute Monocytes 0.9 Absolute Eosinophils 0.1 Absolute Basophils 0.2 Carbonic Acid HCO3/H2CO3 Ratio ABG pH ABG pCO2 ABG pO2 ABG HCO3 ABG O2 Saturation ABG Base Excess FiO2 Sodium 151.6 H Potassium 3.0 L* Chloride 116 H Carbon Dioxide 20 L Anion Gap 16 BUN 19 Creatinine 0.63 Est GFR ( Amer) > 60 Est GFR (Non-Af Amer) > 60 Glucose 167 H Lactic Acid Calcium 10.6 H Phosphorus Magnesium 1.7 Total Bilirubin AST ALT Alkaline Phosphatase Total Protein Albumin 08/17/17 08/18/17 08/18/17 18:13 03:59 03:59 WBC 13.5 H RBC 3.72 Hgb 10.9 L Hct 33.0 L MCV 89 MCH 29.4 MCHC 33.2 RDW 14.7 H Plt Count 286 Seg Neutrophils % 64.6 Lymphocytes % 16.7 Monocytes % 11.3 Eosinophils % 5.8 Basophils % 1.6 Absolute Neutrophils 8.7 H Absolute Lymphocytes 2.3 Absolute Monocytes 1.5 H Absolute Eosinophils 0.8 H Absolute Basophils 0.2 Carbonic Acid 1.28 HCO3/H2CO3 Ratio 16:1 ABG pH 7.32 L ABG pCO2 42.6 ABG pO2 63.8 L ABG HCO3 21.5 ABG O2 Saturation 90.7 L ABG Base Excess -4.4 FiO2 50% Sodium 150.6 H Potassium 3.5 L Chloride 117 H Carbon Dioxide 22 Anion Gap 12 BUN 19 Creatinine 0.68 Est GFR ( Amer) > 60 Est GFR (Non-Af Amer) > 60 Glucose 92 Lactic Acid Calcium 10.6 H Phosphorus 1.7 L Magnesium 1.7 Total Bilirubin 0.7 AST 32 ALT 46 Alkaline Phosphatase 86 Total Protein 6.5 Albumin 3.2 L 08/18/17 08/18/17 08/18/17 03:59 04:55 10:58 WBC RBC Hgb Hct MCV MCH MCHC RDW Plt Count Seg Neutrophils % Lymphocytes % Monocytes % Eosinophils % Basophils % Absolute Neutrophils Absolute Lymphocytes Absolute Monocytes Absolute Eosinophils Absolute Basophils Carbonic Acid 1.29 1.30 HCO3/H2CO3 Ratio 18:1 17:1 ABG pH 7.37 7.33 L ABG pCO2 43.0 43.2 ABG pO2 45.9 L 148.8 H ABG HCO3 24.1 22.4 ABG O2 Saturation 80.4 L 98.8 H ABG Base Excess -1.2 -3.4 FiO2 50% 50% Sodium Potassium Chloride Carbon Dioxide Anion Gap BUN Creatinine Est GFR ( Amer) Est GFR (Non-Af Amer) Glucose Lactic Acid 1.0 Calcium Phosphorus Magnesium Total Bilirubin AST ALT Alkaline Phosphatase Total Protein Albumin 08/12/17 08/12/17 08/12/17 15:40 15:40 15:40 Creatine Kinase 40 CK-MB (CK-2) 1.62 Troponin I 0.056 NT-Pro-B Natriuret Pep 1470 H 08/12/17 08/12/17 08/13/17 21:40 21:40 03:49 Creatine Kinase 38 27 L CK-MB (CK-2) 1.52 Troponin I 0.059 NT-Pro-B Natriuret Pep 08/13/17 03:49 Creatine Kinase CK-MB (CK-2) 1.10 Troponin I 0.049 NT-Pro-B Natriuret Pep EKG Comments: Twelve-lead EKG shows sinus tachycardia with borderline first-degree AV block and left bundle branch block pattern. Impressions: Chest CT 08/12/17 00:00 IMPRESSION: RIGHT LOWER LOBE PNEUMONIA WITH ASSOCIATED SMALL PARAPNEUMONIC EFFUSION. ADDITIONAL CHRONIC CHANGES ABOVE. Chest X-Ray 08/18/17 06:00 IMPRESSION: No significant interval change. Assessment & Plan - Diagnosis (1) Cardiac dysrhythmia, unspecified Qualifiers: Arrhythmia type: unspecified cardiac arrhythmia Qualified Code(s): I49.9 - Cardiac arrhythmia, unspecified Is this a current diagnosis for this admission?: Yes (2) Dyspnea Qualifiers: Dyspnea type: shortness of breath Qualified Code(s): R06.02 - Shortness of breath; R06.00 - Dyspnea, unspecified; R06.01 - Orthopnea Is this a current diagnosis for this admission?: Yes (3) Hypoxemia Is this a current diagnosis for this admission?: Yes (4) Tracheostomy malfunction Is this a current diagnosis for this admission?: Yes (5) Type 2 diabetes mellitus Qualifiers: Diabetes mellitus complication status: with neurologic complications Diabetes mellitus complication detail: with polyneuropathy Diabetes mellitus senior living insulin use: with intermediate frame tender use Qualified Code(s): E11.42 - Type 2 diabetes mellitus with diabetic polyneuropathy Is this a current diagnosis for this admission?: Yes (6) Right lower lobe pneumonia Qualifiers: Pneumonia type: due to unspecified organism Qualified Code(s): J18.1 - Lobar pneumonia, unspecified organism Is this a current diagnosis for this admission?: Yes - Notes Notes: Cardiac dysrhythmia: This was the reason for consultation. Currently telemetry strips reviewed. No significant dysrhythmia noted except for borderline first- degree AV block and left bundle branch block pattern. Continue to observe. Dyspnea: Possibly related to pneumonia, underlying COPD etc. Hypoxemia: Most likely related to underlying COPD pulmonary condition and also pneumonia. Patient in addition had malfunction of tracheostomy. Tracheostomy malfunction: I am told that this has been corrected. 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 Right lower lobe pneumonia: Continue current therapy. Overall prognosis guarded due to significant comorbid diagnosis. - Time Time Spent: 30 to 50 Minutes - CODE STATUS was discussed, patient remains full code. Surrogate decision-maker patient's daughter. Multiple medical problems were addressed. More than 50% of the time spent coordinating care, discussing management plans with involved caregivers. Management plans discussed with involved personnels. Medical decision making was of moderate to high complexity , patient's has multiple comorbidities. Medications reviewed and adjusted accordingly: Yes
--- NOTE | 2017-08-18 15:47 | EKG REPORT ---
SEVERITY:- ABNORMAL ECG - SINUS RHYTHM FIRST DEGREE AV BLOCK LEFT BUNDLE BRANCH BLOCK : Confirmed by: Ketty Mendoza MD 18-Aug-2017 15:46:36
[2017-08-18] MEDS: POTASSI CL 20 MEQ/1/2NS 1L 20 MEQ/1,000 ML RTUINJ IV PRN (17:20)
[2017-08-18] MEDS: GABAPENTIN 250 MG/5 ML PO SCH (17:21)
[2017-08-18] MEDS: LEVOFLOXACIN 750 MG/D5W RTU 750 MG/150 ML RTUPB IV SCH (18:43)
[2017-08-19 04:19] LABS: ABSOLUTE BASOPHILS # (AUTO) 0.2 10^3/uL (0.0-0.2); ABSOLUTE EOSINOPHILS # (AUTO) 1.8 10^3/uL (0.0-0.6); ABSOLUTE LYMPHOCYTES (AUTO) 4.2 10^3/uL (0.5-4.7); ABSOLUTE MONOCYTES (AUTO) 1.3 10^3/uL (0.1-1.4); ABSOLUTE NEUT (AUTO) 6.7 10^3/uL (1.7-8.2); BASOPHILS % (AUTO) 1.5 % (0-2); EOSINOPHILS % (AUTO) 12.5 % (0-6); HEMATOCRIT 29.2 % (36.0-47.0); HEMOGLOBIN 9.9 g/dL (12.0-15.5); HGB HCT DIFFERENCE 0.5; LYMPHOCYTES % (AUTO) 29.5 % (13-45); MEAN CORPUSCULAR HGB CONC 33.9 g/dL (32.0-36.0); MEAN CORPUSCULAR VOLUME 89 fl (80-97); MONOCYTES % (AUTO) 9.1 % (3-13); RED CELL DISTRIBUTION WIDTH 14.7 % (11.5-14.0); SEGMENTED NEUTROPHILS % (AUTO) 47.4 % (42-78); WHITE BLOOD COUNT 14.2 10^3/uL (4.0-10.5)
[2017-08-19] MEDS: CEFEPIME 2 GM/D5W RTU 2 GM/50 ML RTUPB IV SCH (04:31)
[2017-08-19 04:39] LABS: ANION GAP 10 (5-19); BLOOD UREA NITROGEN 21 mg/dL (7-20); CALCIUM 10.1 mg/dL (8.4-10.2); CARBON DIOXIDE 19 mmol/L (22-30); CHLORIDE 114 mmol/L (98-107); CREATININE RESULT 0.77 mg/dL (0.52-1.25); GLUCOSE 91 mg/dL (75-110); MAGNESIUM 1.6 mg/dL (1.6-2.3); POTASSIUM 4.8 mmol/L (3.6-5.0)
[2017-08-19 04:55] LABS: ARTERIAL BLOOD BASE EXCESS -2.9 mmol/L; ARTERIAL BLOOD O2 SATURATION 94.7 % (94-98)
[2017-08-19] MEDS: HEPARIN SOD (PORCINE) 5,000 UNIT/ML 1 ML SYRINGE SUBCUT SCH ×3 (05:08→22:13)
--- NOTE | 2017-08-19 07:50 | RADIOLOGY REPORT (SQ) ---
EXAM DESCRIPTION: CHEST SINGLE VIEW COMPLETED DATE/TIME: 08/19/2017 6:27 am REASON FOR STUDY: resp failure COMPARISON: 08/18/2017. CT, 08/12/2017. EXAM PARAMETERS: NUMBER OF VIEWS: One view. TECHNIQUE: Single frontal radiographic view of the chest acquired. RADIATION DOSE: NA LIMITATIONS: None. FINDINGS: LUNGS AND PLEURA: Mild interstitial markings. Moderate lung volume. Small opacity -effus ion of the left costophrenic angle. Small right basilar opacity. Moderate central pulmonary edema p attern. Smooth pleural prominence of bilateral apices. MEDIASTINUM AND HILAR STRUCTURES: No masses. Contour normal. HEART AND VASCULAR STRUCTURES: Normal cardiac silhouette size. Atherosclerosis. BONES: No acute findings. HARDWARE: Tracheostomy tube. OTHER: No other significant finding. IMPRESSION: No significant interval change. TECHNICAL DOCUMENTATION: JOB ID: [id number] [employer]- All Rights Reserved
[2017-08-19] MEDS: PHOSPHORUS #1 250 MG TABLET PEG SCH ×2 (09:43→17:58)
[2017-08-19] MEDS: ASPIRIN 81 MG TABLET, CHEWABLE PO SCH (09:44)
[2017-08-19] MEDS: ASCORBIC ACID 500 MG TABLET PO SCH (09:44)
[2017-08-19] MEDS: MEMANTINE HCL 10 MG TABLET PO SCH (09:44)
[2017-08-19] MEDS: VANCOMYCIN HCL 750 MG in DEXTROSE 5%-WATER 250 ML IV SCH ×2 (09:44→22:13)
[2017-08-19] MEDS: LOSARTAN POTASSIUM 25 MG TABLET PO SCH (09:45)
[2017-08-19] MEDS: AMLODIPINE BESYLATE 10 MG TABLET PO SCH (09:46)
--- NOTE | 2017-08-19 11:16 | PDOC PROGRESS REPORT ---
Subjective Progress Note for:: 08/19/17 Subjective:: Patient is currently doing better More alert awake According to the nursing staff no other events happens Family on a bedside Physical Exam Vital Signs: Temp Pulse Resp BP Pulse Ox 99.1 F 79 31 H 125/54 L 100 08/19/17 10:12 08/19/17 10:12 08/19/17 10:12 08/19/17 10:12 08/19/17 10:12 Pulse Oximeter Continuous Start: 08/12/17 15: 06 Freq: RTQ4 Status: Complete Document 08/12/17 20:24 [facility] (Rec: 08/12/17 21:45 [facility] [email or web address]) Pulse Oximetry Assessment Oxygen Saturation (92-100) 99 Oxygen Delivery Method Trach Collar Fraction of Inspired Oxygen (FIO2) 40 Equipment Usage Equipment in Use Continuous SpO2 Machine # N-9 Pulse Oximeter Continuous Start: 08/15/17 21: 04 Freq: RTQ4 Status: Complete Document 08/17/17 18:10 [facility] (Rec: 08/17/17 19:36 [facility] [email or web address]_) Pulse Oximetry Assessment Equipment Usage Equipment Discontinued Continuous SpO2 Machine # N-13 Intake & Output 08/18/17 08/19/17 08/20/17 06:59 06:59 06:59 Intake Total 1899 2378 Output Total 1145 660 175 Balance 754 1718 -175 Weight 64.3 kg 65 kg General appearance: PRESENT: no acute distress Eye exam: PRESENT: PERRLA Mouth exam: PRESENT: dry mucosa Neck exam: PRESENT: tracheostomy. ABSENT: carotid bruit, full ROM, JVD, lymphadenopathy, meningismus, tenderness, thyromegaly, tracheal deviation, other Respiratory exam: PRESENT: decreased breath sounds Cardiovascular exam: PRESENT: +S1, +S2 GI/Abdominal exam: PRESENT: normal bowel sounds, soft. ABSENT: tenderness Neurological exam: PRESENT: alert, awake, oriented to person Skin exam: PRESENT: dry Results Laboratory Results: 08/19/17 04:00 08/19/17 04:00 08/18/17 08/19/17 08/19/17 10:58 04:00 04:00 WBC 14.2 H RBC 3.30 L Hgb 9.9 L Hct 29.2 L MCV 89 MCH 30.0 MCHC 33.9 RDW 14.7 H Plt Count 278 Seg Neutrophils % 47.4 Lymphocytes % 29.5 Monocytes % 9.1 Eosinophils % 12.5 H Basophils % 1.5 Absolute Neutrophils 6.7 Absolute Lymphocytes 4.2 Absolute Monocytes 1.3 Absolute Eosinophils 1.8 H Absolute Basophils 0.2 Carbonic Acid 1.30 HCO3/H2CO3 Ratio 17:1 ABG pH 7.33 L ABG pCO2 43.2 ABG pO2 148.8 H ABG HCO3 22.4 ABG O2 Saturation 98.8 H ABG Base Excess -3.4 FiO2 50% Sodium 143.0 Potassium 4.8 Chloride 114 H Carbon Dioxide 19 L Anion Gap 10 BUN 21 H Creatinine 0.77 Est GFR ( Amer) > 60 Est GFR (Non-Af Amer) > 60 Glucose 91 Calcium 10.1 Magnesium 1.6 08/19/17 04:45 WBC RBC Hgb Hct MCV MCH MCHC RDW Plt Count Seg Neutrophils % Lymphocytes % Monocytes % Eosinophils % Basophils % Absolute Neutrophils Absolute Lymphocytes Absolute Monocytes Absolute Eosinophils Absolute Basophils Carbonic Acid 0.89 L HCO3/H2CO3 Ratio 22:1 ABG pH 7.45 ABG pCO2 29.6 L ABG pO2 68.1 L ABG HCO3 20.2 ABG O2 Saturation 94.7 ABG Base Excess -2.9 FiO2 21% Sodium Potassium Chloride Carbon Dioxide Anion Gap BUN Creatinine Est GFR ( Amer) Est GFR (Non-Af Amer) Glucose Calcium Magnesium 08/17/17 21:33 Tracheal Aspirate Gram Stain - Final 08/17/17 21:33 Tracheal Aspirate Sputum Culture - Final NO GROWTH 2 DAYS 08/12/17 08/12/17 08/12/17 15:40 15:40 15:40 Creatine Kinase 40 CK-MB (CK-2) 1.62 Troponin I 0.056 NT-Pro-B Natriuret Pep 1470 H 08/12/17 08/12/17 08/13/17 21:40 21:40 03:49 Creatine Kinase 38 27 L CK-MB (CK-2) 1.52 Troponin I 0.059 NT-Pro-B Natriuret Pep 08/13/17 03:49 Creatine Kinase CK-MB (CK-2) 1.10 Troponin I 0.049 NT-Pro-B Natriuret Pep Impressions: Chest CT 08/12/17 00:00 IMPRESSION: RIGHT LOWER LOBE PNEUMONIA WITH ASSOCIATED SMALL PARAPNEUMONIC EFFUSION. ADDITIONAL CHRONIC CHANGES ABOVE. Chest X-Ray 08/19/17 06:00 IMPRESSION: No significant interval change. Assessment & Plan - Diagnosis (1) Acute respiratory failure Qualifiers: Respiratory failure complication: hypoxia Qualified Code(s): J96.01 - Acute respiratory failure with hypoxia Is this a current diagnosis for this admission?: Yes Plan: Continues to follow with the pulmonary and currently doing well (2) Gastrostomy status Is this a current diagnosis for this admission?: Yes Plan: Continues to feeding through the PEG tube (3) Pneumonia Qualifiers: Pneumonia type: due to unspecified organism Laterality: left Lung location: lower lobe of lung Qualified Code(s): J18.1 - Lobar pneumonia, unspecified organism Is this a current diagnosis for this admission?: Yes Plan: Continue IV antibiotic (4) Primary hyperparathyroidism Is this a current diagnosis for this admission?: Yes (5) Tracheostomy complication, unspecified Qualifiers: Tracheostomy complication: stoma malfunction Qualified Code(s): J95.03 - Malfunction of tracheostomy stoma Is this a current diagnosis for this admission?: Yes (6) Dementia Qualifiers: Dementia type: unspecified type Dementia behavioral disturbance: without behavioral disturbance Qualified Code(s): F03.90 - Unspecified dementia without behavioral disturbance Is this a current diagnosis for this admission?: Yes - Time Time Spent with patient: 15-24 minutes Critical Time spent with patient: 15-24 minutes Medications reviewed and adjusted accordingly: Yes Anticipated discharge: Home Within: Other - Inpatient Certification Medical Necessity: Need Close Monitoring Due to Risk of Patient Decompensation, Need for IV Antibiotics 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
--- NOTE | 2017-08-19 12:02 | PDOC CONSULTATION ---
Consultation Consult Date: 08/18/17 Attending physician:: BAKARI BECKER Consult reason:: acute/chronic resp failure History of Present Illness Admission Date/PCP: 08/12/17 12:39 BAKARI BECKER MD History of Present Illness: This is an 81 yr old female Well-known to [facility] as she has been admitted several times in the past she has tracheostomy and on several occasions this is gotten clotted off due to thick purulent secretions she is recently had her tracheostomy tube changed approximately 8 weeks ago but she was subsequently getting yearly clots in the tracheostomy tube with intermittent desaturations and was subsequently brought to the ER and evaluated. She had a pneumonia and she subsequently was admitted Past Medical History Cardiac Medical History: Reports: Congestive Heart Failure, Hyperlipidema, Hypertension, Peripheral Vascular Disease, Other - Chronic diastolic dysfunction of left ventricle Pulmonary Medical History: Reports: Chronic Obstructive Pulmonary Disease (COPD) Endocrine Medical History: Reports: Diabetes Mellitus Type 2 Psychiatric Medical History: Reports: Dementia Denies: Depression Past Surgical History Past Surgical History: Reports: Orthopedic Surgery - Shoulder. 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 , Other - tracheostomy Social History Information Source: [facility] Records Smoking Status: Unknown if Ever Smoked Frequency of Alcohol Use: None Hx Recreational Drug Use: No Drugs: Cocaine Hx Prescription Drug Abuse: No Do you have pets?: No Have you had any respiratory illnesses as a child?: No Have you travelled outside of [place] in the past 12 months?: No Family History Parental Family History Reviewed: No Children Family History Reviewed: No Sibling(s) Family History Reviewed.: No Medication/Allergy Home Medications: Amlodipine Besylate [Norvasc 10 mg Tablet] 10 mg PO DAILY 12/16/16 Ascorbic Acid [Vitamin C 500 mg Tablet] 500 mg PO DAILY 12/16/16 Memantine HCl [Namenda 10 mg Tablet] 10 mg PO DAILY 12/16/16 Ondansetron HCl [Zofran 4 mg Tablet] 8 mg PO TIDP PRN 12/16/16 Albuterol Sulfate [Albuterol Sulfate 2.5mg/3 mL] 1 vial IH RTQ6HP PRN 08/12/17 Aspirin 81 mg PO DAILY 08/12/17 Gabapentin [Neurontin] 300 mg PO QPM 08/12/17 Insulin Aspart [Novolog Insulin 100 Unit/1 ml 10 ml] 0 unit SUBCUT .SLD SCALE Losartan Potassium [Cozaar 25 mg Tablet] 25 mg PO DAILY 08/12/17 Allergies/Adverse Reactions: alprazolam [From Xanax] Allergy (Verified 08/12/17 10:54) iodine [Iodine] Allergy (Verified 08/12/17 10:54) quetiapine fumarate [From Seroquel] Allergy (Verified 08/12/17 10:54) Review of Systems ROS unobtainable: Due to endotracheal tube, Due to mental status Physical Exam Vital Signs: Temp Pulse Resp BP Pulse Ox 98.1 F 63 30 H 130/56 H 100 08/18/17 04:00 08/18/17 07:58 08/17/17 18:00 08/17/17 18:00 08/18/17 04:14 Pulse Oximeter Continuous Start: 08/12/17 15: 06 Freq: RTQ4 Status: Complete Document 08/12/17 20:24 [facility] (Rec: 08/12/17 21:45 [facility] [email or web address]) Pulse Oximetry Assessment Oxygen Saturation (92-100) 99 Oxygen Delivery Method Trach Collar Fraction of Inspired Oxygen (FIO2) 40 Equipment Usage Equipment in Use Continuous SpO2 Machine # N-9 Pulse Oximeter Continuous Start: 08/15/17 21: 04 Freq: RTQ4 Status: Complete Document 08/17/17 18:10 [facility] (Rec: 08/17/17 19:36 [facility] [email or web address]) Pulse Oximetry Assessment Equipment Usage Equipment Discontinued Continuous SpO2 Machine # N-13 Intake & Output 08/17/17 08/18/17 08/19/17 06:59 06:59 06:59 Intake Total 2640 1899 Output Total 1600 1145 60 Balance 1040 754 -60 Weight 62.9 kg 64.3 kg General appearance: PRESENT: no acute distress, disheveled, thin, well-developed , well-nourished. ABSENT: cooperative, mild distress, morbidly obese, obese, severe distress Head exam: PRESENT: atraumatic, normocephalic Eye exam: PRESENT: conjunctiva pale Mouth exam: PRESENT: dry mucosa, neck supple, tongue midline Neck exam: PRESENT: tracheostomy. ABSENT: carotid bruit, JVD, lymphadenopathy, meningismus, thyromegaly, tracheal deviation Respiratory exam: PRESENT: decreased breath sounds, prolonged expiratory phas, rales, rhonchi, symmetrical, unlabored. ABSENT: accessory muscle use, chest wall tenderness, clear to auscultation monica, crackles, retraction, stridor, tachypnea Cardiovascular exam: PRESENT: RRR, +S1, +S2. ABSENT: irregular rhythm Pulses: PRESENT: normal radial pulses GI/Abdominal exam: PRESENT: normal bowel sounds, soft, other - feeding tube in place. ABSENT: distended, guarding, mass, organolmegaly, rebound, tenderness Gentrourinary exam: PRESENT: indwelling catheter Extremities exam: ABSENT: clubbing, joint swelling, pedal edema Musculoskeletal exam: ABSENT: ambulatory, deformity, dislocation Neurological exam: PRESENT: altered Skin exam: PRESENT: dry, pallor, warm Results Laboratory Results: 08/18/17 03:59 08/18/17 03:59 08/17/17 08/17/17 08/17/17 18:10 18:10 18:10 WBC 19.5 H RBC 3.70 L Hgb 10.9 L Hct 33.2 L MCV 90 MCH 29.4 MCHC 32.8 RDW 14.7 H Plt Count 327 Seg Neutrophils % 83.4 H Lymphocytes % 10.5 L Monocytes % 4.6 Eosinophils % 0.5 Basophils % 1.0 Absolute Neutrophils 16.3 H Absolute Lymphocytes 2.0 Absolute Monocytes 0.9 Absolute Eosinophils 0.1 Absolute Basophils 0.2 Carbonic Acid HCO3/H2CO3 Ratio ABG pH ABG pCO2 ABG pO2 ABG HCO3 ABG O2 Saturation ABG Base Excess FiO2 Sodium 151.6 H Potassium 3.0 L* Chloride 116 H Carbon Dioxide 20 L Anion Gap 16 BUN 19 Creatinine 0.63 Est GFR ( Amer) > 60 Est GFR (Non-Af Amer) > 60 Glucose 167 H Lactic Acid Calcium 10.6 H Phosphorus Magnesium 1.7 Total Bilirubin AST ALT Alkaline Phosphatase Total Protein Albumin 08/17/17 08/18/17 08/18/17 18:13 03:59 03:59 WBC 13.5 H RBC 3.72 Hgb 10.9 L Hct 33.0 L MCV 89 MCH 29.4 MCHC 33.2 RDW 14.7 H Plt Count 286 Seg Neutrophils % 64.6 Lymphocytes % 16.7 Monocytes % 11.3 Eosinophils % 5.8 Basophils % 1.6 Absolute Neutrophils 8.7 H Absolute Lymphocytes 2.3 Absolute Monocytes 1.5 H Absolute Eosinophils 0.8 H Absolute Basophils 0.2 Carbonic Acid 1.28 HCO3/H2CO3 Ratio 16:1 ABG pH 7.32 L ABG pCO2 42.6 ABG pO2 63.8 L ABG HCO3 21.5 ABG O2 Saturation 90.7 L ABG Base Excess -4.4 FiO2 50% Sodium 150.6 H Potassium 3.5 L Chloride 117 H Carbon Dioxide 22 Anion Gap 12 BUN 19 Creatinine 0.68 Est GFR ( Amer) > 60 Est GFR (Non-Af Amer) > 60 Glucose 92 Lactic Acid Calcium 10.6 H Phosphorus 1.7 L Magnesium 1.7 Total Bilirubin 0.7 AST 32 ALT 46 Alkaline Phosphatase 86 Total Protein 6.5 Albumin 3.2 L 08/18/17 08/18/17 03:59 04:55 WBC RBC Hgb Hct MCV MCH MCHC RDW Plt Count Seg Neutrophils % Lymphocytes % Monocytes % Eosinophils % Basophils % Absolute Neutrophils Absolute Lymphocytes Absolute Monocytes Absolute Eosinophils Absolute Basophils Carbonic Acid 1.29 HCO3/H2CO3 Ratio 18:1 ABG pH 7.37 ABG pCO2 43.0 ABG pO2 45.9 L ABG HCO3 24.1 ABG O2 Saturation 80.4 L ABG Base Excess -1.2 FiO2 50% Sodium Potassium Chloride Carbon Dioxide Anion Gap BUN Creatinine Est GFR ( Amer) Est GFR (Non-Af Amer) Glucose Lactic Acid 1.0 Calcium Phosphorus Magnesium Total Bilirubin AST ALT Alkaline Phosphatase Total Protein Albumin 08/12/17 08/12/17 08/12/17 15:40 15:40 15:40 Creatine Kinase 40 CK-MB (CK-2) 1.62 Troponin I 0.056 NT-Pro-B Natriuret Pep 1470 H 08/12/17 08/12/17 08/13/17 21:40 21:40 03:49 Creatine Kinase 38 27 L CK-MB (CK-2) 1.52 Troponin I 0.059 NT-Pro-B Natriuret Pep 08/13/17 03:49 Creatine Kinase CK-MB (CK-2) 1.10 Troponin I 0.049 NT-Pro-B Natriuret Pep Impressions: Chest CT 08/12/17 00:00 IMPRESSION: RIGHT LOWER LOBE PNEUMONIA WITH ASSOCIATED SMALL PARAPNEUMONIC EFFUSION. ADDITIONAL CHRONIC CHANGES ABOVE. Chest X-Ray 08/18/17 06:00 IMPRESSION: No significant interval change. Assessment & Plan - Diagnosis (1) Hypoxia Is this a current diagnosis for this admission?: Yes Plan: Labs- All tests 24 hr 08/18/17 10:58 ABG pH 7.33 L ABG pCO2 43.2 ABG pO2 148.8 H FiO2 50% Continue mechanical oxygenation and ventilation (2) Pneumonia Qualifiers: Pneumonia type: due to Pseudomonas Laterality: left Lung location: lower lobe of lung Qualified Code(s): J15.1 - Pneumonia due to Pseudomonas Is this a current diagnosis for this admission?: Yes Plan: 08/13/17 00:40 Gram Stain - Final Tracheal Aspirate Sputum Culture - Final Pseudomonas Aeruginosa Corynebacterium Striatum Greatly Reduced Normal Nan (3) Tracheostomy dependence Is this a current diagnosis for this admission?: Yes Plan: Unchanged,Poor hygiene - Time Time Spent with patient: 50 minutes ICU time
--- NOTE | 2017-08-19 12:07 | PDOC PROGRESS REPORT ---
Subjective Progress Note for:: 08/19/17 - Acute on chronic respiratory failure/pna Subjective:: . Lethargic remains on mechanical ventilation Physical Exam Vital Signs: Temp Pulse Resp BP Pulse Ox 98.9 F 55 L 14 129/53 H 98 08/19/17 08:00 08/19/17 08:00 08/19/17 08:00 08/19/17 08:00 08/19/17 08:00 Pulse Oximeter Continuous Start: 08/12/17 15: 06 Freq: RTQ4 Status: Complete Document 08/12/17 20:24 [facility] (Rec: 08/12/17 21:45 [facility] ECART_[email or web address]_) Pulse Oximetry Assessment Oxygen Saturation (92-100) 99 Oxygen Delivery Method Trach Collar Fraction of Inspired Oxygen (FIO2) 40 Equipment Usage Equipment in Use Continuous SpO2 Machine # N-9 Pulse Oximeter Continuous Start: 08/15/17 21: 04 Freq: RTQ4 Status: Complete Document 08/17/17 18:10 [facility] (Rec: 08/17/17 19:36 [facility] ECART_RESP_) Pulse Oximetry Assessment Equipment Usage Equipment Discontinued Continuous SpO2 Machine # N-13 Intake & Output 08/18/17 08/19/17 08/20/17 06:59 06:59 06:59 Intake Total 1899 2378 Output Total 1145 660 50 Balance 754 1718 -50 Weight 64.3 kg 65 kg General appearance: PRESENT: no acute distress, disheveled, obese, well- developed Head exam: PRESENT: atraumatic, normocephalic Eye exam: PRESENT: conjunctiva pale, EOMI Mouth exam: PRESENT: dry mucosa, neck supple, tongue midline Neck exam: PRESENT: tracheostomy - in midline dressing dry. ABSENT: carotid bruit, JVD, lymphadenopathy, thyromegaly, tracheal deviation Respiratory exam: PRESENT: decreased breath sounds, prolonged expiratory phas, rales, rhonchi, symmetrical, unlabored. ABSENT: accessory muscle use, chest wall tenderness, clear to auscultation monica, crackles, retraction, stridor, tachypnea Cardiovascular exam: PRESENT: RRR, +S1, +S2. ABSENT: irregular rhythm Pulses: PRESENT: normal radial pulses GI/Abdominal exam: PRESENT: normal bowel sounds, soft, other - Feeding tube in place. ABSENT: distended, guarding, mass, organolmegaly, rebound, tenderness Gentrourinary exam: PRESENT: indwelling catheter Extremities exam: ABSENT: clubbing, joint swelling, pedal edema Musculoskeletal exam: ABSENT: ambulatory, deformity, dislocation Neurological exam: PRESENT: altered Skin exam: PRESENT: dry, pallor, warm Results Laboratory Results: 08/19/17 04:00 08/19/17 04:00 08/18/17 08/19/17 08/19/17 10:58 04:00 04:00 WBC 14.2 H RBC 3.30 L Hgb 9.9 L Hct 29.2 L MCV 89 MCH 30.0 MCHC 33.9 RDW 14.7 H Plt Count 278 Seg Neutrophils % 47.4 Lymphocytes % 29.5 Monocytes % 9.1 Eosinophils % 12.5 H Basophils % 1.5 Absolute Neutrophils 6.7 Absolute Lymphocytes 4.2 Absolute Monocytes 1.3 Absolute Eosinophils 1.8 H Absolute Basophils 0.2 Carbonic Acid 1.30 HCO3/H2CO3 Ratio 17:1 ABG pH 7.33 L ABG pCO2 43.2 ABG pO2 148.8 H ABG HCO3 22.4 ABG O2 Saturation 98.8 H ABG Base Excess -3.4 FiO2 50% Sodium 143.0 Potassium 4.8 Chloride 114 H Carbon Dioxide 19 L Anion Gap 10 BUN 21 H Creatinine 0.77 Est GFR ( Amer) > 60 Est GFR (Non-Af Amer) > 60 Glucose 91 Calcium 10.1 Magnesium 1.6 08/19/17 04:45 WBC RBC Hgb Hct MCV MCH MCHC RDW Plt Count Seg Neutrophils % Lymphocytes % Monocytes % Eosinophils % Basophils % Absolute Neutrophils Absolute Lymphocytes Absolute Monocytes Absolute Eosinophils Absolute Basophils Carbonic Acid 0.89 L HCO3/H2CO3 Ratio 22:1 ABG pH 7.45 ABG pCO2 29.6 L ABG pO2 68.1 L ABG HCO3 20.2 ABG O2 Saturation 94.7 ABG Base Excess -2.9 FiO2 21% Sodium Potassium Chloride Carbon Dioxide Anion Gap BUN Creatinine Est GFR ( Amer) Est GFR (Non-Af Amer) Glucose Calcium Magnesium 08/12/17 08/12/17 08/12/17 15:40 15:40 15:40 Creatine Kinase 40 CK-MB (CK-2) 1.62 Troponin I 0.056 NT-Pro-B Natriuret Pep 1470 H 08/12/17 08/12/17 08/13/17 21:40 21:40 03:49 Creatine Kinase 38 27 L CK-MB (CK-2) 1.52 Troponin I 0.059 NT-Pro-B Natriuret Pep 08/13/17 03:49 Creatine Kinase CK-MB (CK-2) 1.10 Troponin I 0.049 NT-Pro-B Natriuret Pep Impressions: Chest CT 08/12/17 00:00 IMPRESSION: RIGHT LOWER LOBE PNEUMONIA WITH ASSOCIATED SMALL PARAPNEUMONIC EFFUSION. ADDITIONAL CHRONIC CHANGES ABOVE. Chest X-Ray 08/19/17 06:00 IMPRESSION: No significant interval change. Assessment & Plan - Diagnosis (1) Dementia Qualifiers: Dementia type: unspecified type Dementia behavioral disturbance: without behavioral disturbance Qualified Code(s): F03.90 - Unspecified dementia without behavioral disturbance Is this a current diagnosis for this admission?: Yes Plan: Unchanged (2) Gastrostomy status Is this a current diagnosis for this admission?: Yes Plan: Tube working adequately at this time (3) Hypoxia Is this a current diagnosis for this admission?: Yes Plan: Labs- All tests 24 hr 08/19/17 04:45 ABG pH 7.45 ABG pCO2 29.6 L ABG pO2 68.1 L ABG O2 Saturation 94.7 FiO2 21% Significant improvement over the last 24 hours intermittent use a trach collar versus mechanical ventilation (4) Pneumonia Qualifiers: Pneumonia type: due to Pseudomonas Laterality: left Lung location: lower lobe of lung Qualified Code(s): J15.1 - Pneumonia due to Pseudomonas Is this a current diagnosis for this admission?: Yes Plan: 08/13/17 00:40 Gram Stain - Final Tracheal Aspirate Sputum Culture - Final Pseudomonas Aeruginosa Corynebacterium Striatum Greatly Reduced Normal Nan - Time Time Spent with patient: 45 minutes ICU time
[2017-08-19] MEDS: POTASSI CL 20 MEQ/1/2NS 1L 20 MEQ/1,000 ML RTUINJ IV PRN (12:10)
[2017-08-19] MEDS: INSULIN REG, HUMAN 100 UNIT/ML 3 ML VIAL (PYX) SUBCUT PRN (12:13)
--- NOTE | 2017-08-19 15:54 | PDOC PROGRESS REPORT ---
Subjective Progress Note for:: 08/19/17 Subjective:: Patient about the same and has made very little progress. There is no significant change in general condition. Patient patient has tracheostomy tube and is being ventilated through that. Patient however looks comfortable and in acute distress. Medications reviewed. Physical Exam Vital Signs: Temp Pulse Resp BP Pulse Ox 98.3 F 66 24 H 127/62 H 100 08/19/17 14:00 08/19/17 14:00 08/19/17 14:00 08/19/17 14:00 08/19/17 14:00 Pulse Oximeter Continuous Start: 08/12/17 15: 06 Freq: RTQ4 Status: Complete Document 08/12/17 20:24 [facility] (Rec: 08/12/17 21:45 [facility] [email or web address]) Pulse Oximetry Assessment Oxygen Saturation (92-100) 99 Oxygen Delivery Method Trach Collar Fraction of Inspired Oxygen (FIO2) 40 Equipment Usage Equipment in Use Continuous SpO2 Machine # N-9 Pulse Oximeter Continuous Start: 08/15/17 21: 04 Freq: RTQ4 Status: Complete Document 08/17/17 18:10 [facility] (Rec: 08/17/17 19:36 [facility] [email or web address]) Pulse Oximetry Assessment Equipment Usage Equipment Discontinued Continuous SpO2 Machine # N-13 Intake & Output 08/18/17 08/19/17 08/20/17 06:59 06:59 06:59 Intake Total 1899 2378 Output Total 1145 660 475 Balance 754 1718 -475 Weight 64.3 kg 65 kg Exam: GENERAL: well-nourished and in no acute distress. Patient is alert but not oriented to place time or person. HEAD: Atraumatic, normocephalic. EYES: Pupils equal round and reactive to light, extraocular movements intact, sclera anicteric, conjunctiva are normal. ENT: TMs normal, nares patent, oropharynx clear without exudates. Moist mucous membranes. No oral ulcerations or bleeding gums noted NECK: supple without lymphadenopathy or JVD. Trachea is central with tracheostomy. No cervical or axillary lymphadenopathy noted. Carotids are 2+ LUNGS: Breath sounds bibasilar fine crackles at bases. Right basal dullness noted. CHEST: Palpation of chest wall shows no significant chest wall tenderness. HEART: [place] [employer], No PSH, 2/6 MARITZA aortic area, 1/6 kemp systolic murmur mitral area, rubs or gallops. ABDOMEN: Soft, no significant tenderness appreciated, normoactive bowel sounds. No guarding, no rebound. No rigidity noted . No masses appreciated. EXTREMITIES: Pedal pulses are 1-2+, no calf tenderness noted, Trace + pedal edema noted. No clubbing or cyanosis. NEUROLOGICAL: Patient is alert but is not able to participate in neurological exam because of patient's current mental status PSYCH: Patient cannot participate in a neurologic and psych exam because of the patient's current mental status SKIN: No significant ecchymosis, rash, ulcerations or signs of pruritus noted. MUSCULOSKELETAL EXAM: No significant joint swelling noted. Results Laboratory Results: 08/19/17 04:00 08/19/17 04:00 08/19/17 08/19/17 08/19/17 04:00 04:00 04:45 WBC 14.2 H RBC 3.30 L Hgb 9.9 L Hct 29.2 L MCV 89 MCH 30.0 MCHC 33.9 RDW 14.7 H Plt Count 278 Seg Neutrophils % 47.4 Lymphocytes % 29.5 Monocytes % 9.1 Eosinophils % 12.5 H Basophils % 1.5 Absolute Neutrophils 6.7 Absolute Lymphocytes 4.2 Absolute Monocytes 1.3 Absolute Eosinophils 1.8 H Absolute Basophils 0.2 Carbonic Acid 0.89 L HCO3/H2CO3 Ratio 22:1 ABG pH 7.45 ABG pCO2 29.6 L ABG pO2 68.1 L ABG HCO3 20.2 ABG O2 Saturation 94.7 ABG Base Excess -2.9 FiO2 21% Sodium 143.0 Potassium 4.8 Chloride 114 H Carbon Dioxide 19 L Anion Gap 10 BUN 21 H Creatinine 0.77 Est GFR ( Amer) > 60 Est GFR (Non-Af Amer) > 60 Glucose 91 Calcium 10.1 Magnesium 1.6 08/17/17 21:33 [place] Catheter Urine Culture - Final C.albicans/C.dubliniensis 08/17/17 21:33 Tracheal Aspirate Gram Stain - Final 08/17/17 21:33 Tracheal Aspirate Sputum Culture - Final NO GROWTH 2 DAYS 08/12/17 08/12/17 08/12/17 15:40 15:40 15:40 Creatine Kinase 40 CK-MB (CK-2) 1.62 Troponin I 0.056 NT-Pro-B Natriuret Pep 1470 H 08/12/17 08/12/17 08/13/17 21:40 21:40 03:49 Creatine Kinase 38 27 L CK-MB (CK-2) 1.52 Troponin I 0.059 NT-Pro-B Natriuret Pep 08/13/17 03:49 Creatine Kinase CK-MB (CK-2) 1.10 Troponin I 0.049 NT-Pro-B Natriuret Pep EKG Comments: Telemetry strips shows sinus rhythm with mild first-degree AV block. Impressions: Chest CT 08/12/17 00:00 IMPRESSION: RIGHT LOWER LOBE PNEUMONIA WITH ASSOCIATED SMALL PARAPNEUMONIC EFFUSION. ADDITIONAL CHRONIC CHANGES ABOVE. Chest X-Ray 08/19/17 06:00 IMPRESSION: No significant interval change. Assessment & Plan - Diagnosis (1) Cardiac dysrhythmia, unspecified Qualifiers: Arrhythmia type: unspecified cardiac arrhythmia Qualified Code(s): I49.9 - Cardiac arrhythmia, unspecified Is this a current diagnosis for this admission?: Yes (2) Dyspnea Qualifiers: Dyspnea type: shortness of breath Qualified Code(s): R06.02 - Shortness of breath Is this a current diagnosis for this admission?: Yes (3) Hypoxemia Is this a current diagnosis for this admission?: Yes (4) Tracheostomy malfunction Is this a current diagnosis for this admission?: Yes (5) Type 2 diabetes mellitus Qualifiers: Diabetes mellitus complication status: with neurologic complications Diabetes mellitus complication detail: with polyneuropathy Diabetes mellitus shelter insulin use: with shelter use Qualified Code(s): E11.42 - Type 2 diabetes mellitus with diabetic polyneuropathy Is this a current diagnosis for this admission?: Yes (6) Right lower lobe pneumonia Qualifiers: Pneumonia type: due to unspecified organism Qualified Code(s): J18.1 - Lobar pneumonia, unspecified organism Is this a current diagnosis for this admission?: Yes - Notes Notes: Patient felt to be generally stable from cardiac standpoint. Patient has predominantly pulmonary condition ongoing. Patient already saw molding engineer and route jumper. Will continue to follow patient to see if any other cardiac dysrhythmias happen. Patient's management plans reviewed. Agree with current ongoing management. - Time Time with patient: 15-25 minutes - CODE STATUS was discussed, patient remains full code. Surrogate decision-maker unchanged. Multiple medical problems were addressed. More than 50% of the time spent coordinating care, discussing management plans with involved caregivers. Management plans discussed with involved personnels. Medical decision making was of moderate to high complexity , patient's has multiple comorbidities. Medications reviewed and adjusted accordingly: Yes
[2017-08-19] MEDS: GABAPENTIN 250 MG/5 ML PO SCH (17:58)
[2017-08-20 04:27] LABS: ABSOLUTE BASOPHILS # (AUTO) 0.1 10^3/uL (0.0-0.2); ABSOLUTE EOSINOPHILS # (AUTO) 1.6 10^3/uL (0.0-0.6); ABSOLUTE LYMPHOCYTES (AUTO) 4.1 10^3/uL (0.5-4.7); ABSOLUTE MONOCYTES (AUTO) 1.4 10^3/uL (0.1-1.4); ABSOLUTE NEUT (AUTO) 6.1 10^3/uL (1.7-8.2); BASOPHILS % (AUTO) 0.9 % (0-2); EOSINOPHILS % (AUTO) 11.9 % (0-6); HEMATOCRIT 33.1 % (36.0-47.0); HEMOGLOBIN 11.1 g/dL (12.0-15.5); HGB HCT DIFFERENCE 0.2; LYMPHOCYTES % (AUTO) 30.6 % (13-45); MEAN CORPUSCULAR HEMOGLOBIN 29.7 pg (27.0-33.4); MEAN CORPUSCULAR HGB CONC 33.6 g/dL (32.0-36.0); MEAN CORPUSCULAR VOLUME 88 fl (80-97); MONOCYTES % (AUTO) 10.4 % (3-13); RED BLOOD COUNT 3.74 10^6/uL (3.72-5.28); SEGMENTED NEUTROPHILS % (AUTO) 46.2 % (42-78); WHITE BLOOD COUNT 13.3 10^3/uL (4.0-10.5)
[2017-08-20 05:16] LABS: ANION GAP 12 (5-19); BLOOD UREA NITROGEN 20 mg/dL (7-20); CALCIUM 10.2 mg/dL (8.4-10.2); CARBON DIOXIDE 17 mmol/L (22-30); CHLORIDE 111 mmol/L (98-107); CREATININE RESULT 0.75 mg/dL (0.52-1.25); GLUCOSE 93 mg/dL (75-110); MAGNESIUM 1.8 mg/dL (1.6-2.3); POTASSIUM 4.6 mmol/L (3.6-5.0); SODIUM 139.9 mmol/L (137-145)
[2017-08-20] MEDS: POTASSI CL 20 MEQ/1/2NS 1L 20 MEQ/1,000 ML RTUINJ IV PRN (05:29)
[2017-08-20 05:35] LABS: ARTERIAL BLOOD BASE EXCESS -5.4 mmol/L; ARTERIAL BLOOD O2 SATURATION 94.3 % (94-98)
--- NOTE | 2017-08-20 08:15 | RADIOLOGY REPORT (SQ) ---
EXAM DESCRIPTION: CHEST SINGLE VIEW COMPLETED DATE/TIME: 08/20/2017 6:52 am REASON FOR STUDY: pna COMPARISON: 08/19/2017. FINDINGS: Single-view chest AP portable upright at approximately 0642 hours. Tracheostomy tube remains in place. Low lung volumes with patchy basilar airspace disease particularly on the left. No pneumothorax. St able cardiomediastinal silhouette. IMPRESSION: Stable chest. TECHNICAL DOCUMENTATION: JOB ID: [id number]
[2017-08-20] MEDS: ASCORBIC ACID 500 MG TABLET PO SCH (10:03)
[2017-08-20] MEDS: MEMANTINE HCL 10 MG TABLET PO SCH (10:03)
[2017-08-20] MEDS: AMLODIPINE BESYLATE 10 MG TABLET PO SCH (10:03)
[2017-08-20] MEDS: PHOSPHORUS #1 250 MG TABLET PEG SCH ×2 (10:03→18:25)
[2017-08-20] MEDS: ASPIRIN 81 MG TABLET, CHEWABLE PO SCH (10:04)
[2017-08-20] MEDS: LOSARTAN POTASSIUM 25 MG TABLET PO SCH (10:04)
[2017-08-20] MEDS: SCOPOLAMINE HYDROBROMIDE 1.5 MG PATCH.TD72 TD SCH (10:05)
[2017-08-20] MEDS: VANCOMYCIN HCL 750 MG in DEXTROSE 5%-WATER 250 ML IV SCH ×2 (10:10→21:18)
[2017-08-20] MEDS: HEPARIN SOD (PORCINE) 5,000 UNIT/ML 1 ML SYRINGE SUBCUT SCH ×3 (10:11→21:17)
--- NOTE | 2017-08-20 10:31 | PDOC PROGRESS REPORT ---
Subjective Progress Note for:: 08/20/17 Subjective:: Patient is currently doing better More alert awake According to the nursing staff no other events happens Family on a bedside Physical Exam Vital Signs: Temp Pulse Resp BP Pulse Ox 98.3 F 55 L 27 H 130/61 H 100 08/20/17 09:54 08/20/17 09:54 08/20/17 09:54 08/20/17 09:54 08/20/17 09:54 Pulse Oximeter Continuous Start: 08/12/17 15: 06 Freq: RTQ4 Status: Complete Document 08/12/17 20:24 [facility] (Rec: 08/12/17 21:45 [facility] [email or web address]) Pulse Oximetry Assessment Oxygen Saturation (92-100) 99 Oxygen Delivery Method Trach Collar Fraction of Inspired Oxygen (FIO2) 40 Equipment Usage Equipment in Use Continuous SpO2 Machine # N-9 Pulse Oximeter Continuous Start: 08/15/17 21: 04 Freq: RTQ4 Status: Complete Document 08/17/17 18:10 [facility] (Rec: 08/17/17 19:36 [facility] ECART_RESP_) Pulse Oximetry Assessment Equipment Usage Equipment Discontinued Continuous SpO2 Machine # N-13 Intake & Output 08/19/17 08/20/17 08/21/17 06:59 06:59 06:59 Intake Total 2378 2555 Output Total 660 1135 525 Balance 1718 1420 -525 Weight 65 kg 69.9 kg General appearance: PRESENT: no acute distress, well-developed, well-nourished Head exam: PRESENT: atraumatic, normocephalic Eye exam: PRESENT: conjunctiva pink, EOMI, PERRLA. ABSENT: scleral icterus Ear exam: PRESENT: normal external ear exam Mouth exam: PRESENT: moist, tongue midline Neck exam: PRESENT: full ROM, tracheostomy. ABSENT: carotid bruit, JVD, lymphadenopathy, thyromegaly Respiratory exam: PRESENT: clear to auscultation monica Cardiovascular exam: PRESENT: RRR. ABSENT: diastolic murmur, rubs, systolic murmur Pulses: PRESENT: normal dorsalis pedis pul, +2 pedal pulses bilateral Vascular exam: PRESENT: normal capillary refill GI/Abdominal exam: PRESENT: normal bowel sounds, soft. ABSENT: distended, guarding, mass, organolmegaly, rebound, tenderness Rectal exam: PRESENT: deferred Extremities exam: ABSENT: pedal edema Neurological exam: PRESENT: alert, awake. ABSENT: motor sensory deficit Psychiatric exam: PRESENT: appropriate affect, normal mood. ABSENT: homicidal ideation, suicidal ideation Skin exam: PRESENT: dry, intact, warm. ABSENT: cyanosis, rash Results Laboratory Results: 08/20/17 04:18 08/20/17 04:18 08/20/17 08/20/17 08/20/17 04:18 04:18 05:05 WBC 13.3 H RBC 3.74 Hgb 11.1 L Hct 33.1 L MCV 88 MCH 29.7 MCHC 33.6 RDW 15.0 H Plt Count 285 Seg Neutrophils % 46.2 Lymphocytes % 30.6 Monocytes % 10.4 Eosinophils % 11.9 H Basophils % 0.9 Absolute Neutrophils 6.1 Absolute Lymphocytes 4.1 Absolute Monocytes 1.4 Absolute Eosinophils 1.6 H Absolute Basophils 0.1 Carbonic Acid 0.85 L HCO3/H2CO3 Ratio 20:1 ABG pH 7.42 ABG pCO2 28.2 L ABG pO2 68.6 L ABG HCO3 17.8 L ABG O2 Saturation 94.3 ABG Base Excess -5.4 FiO2 21% Sodium 139.9 Potassium 4.6 Chloride 111 H Carbon Dioxide 17 L Anion Gap 12 BUN 20 Creatinine 0.75 Est GFR ( Amer) > 60 Est GFR (Non-Af Amer) > 60 Glucose 93 Calcium 10.2 Magnesium 1.8 08/17/17 21:33 Palacios Catheter Urine Culture - Final C.albicans/C.dubliniensis 08/17/17 21:33 Tracheal Aspirate Gram Stain - Final 08/17/17 21:33 Tracheal Aspirate Sputum Culture - Final NO GROWTH 2 DAYS 08/12/17 08/12/17 08/12/17 15:40 15:40 15:40 Creatine Kinase 40 CK-MB (CK-2) 1.62 Troponin I 0.056 NT-Pro-B Natriuret Pep 1470 H 08/12/17 08/12/17 08/13/17 21:40 21:40 03:49 Creatine Kinase 38 27 L CK-MB (CK-2) 1.52 Troponin I 0.059 NT-Pro-B Natriuret Pep 08/13/17 03:49 Creatine Kinase CK-MB (CK-2) 1.10 Troponin I 0.049 NT-Pro-B Natriuret Pep Impressions: Chest CT 08/12/17 00:00 IMPRESSION: RIGHT LOWER LOBE PNEUMONIA WITH ASSOCIATED SMALL PARAPNEUMONIC EFFUSION. ADDITIONAL CHRONIC CHANGES ABOVE. Chest X-Ray 08/20/17 06:00 IMPRESSION: Stable chest. Assessment & Plan - Diagnosis (1) Acute respiratory failure Qualifiers: Respiratory failure complication: hypoxia Qualified Code(s): J96.01 - Acute respiratory failure with hypoxia Is this a current diagnosis for this admission?: Yes Plan: Continues to follow with the pulmonary and currently doing well (2) Gastrostomy status Is this a current diagnosis for this admission?: Yes Plan: Continues to feeding through the PEG tube (3) Pneumonia Qualifiers: Pneumonia type: due to unspecified organism Laterality: left Lung location: lower lobe of lung Qualified Code(s): J18.1 - Lobar pneumonia, unspecified organism Is this a current diagnosis for this admission?: Yes Plan: Continue IV antibiotic (4) Primary hyperparathyroidism Is this a current diagnosis for this admission?: Yes (5) Tracheostomy complication, unspecified Qualifiers: Tracheostomy complication: stoma malfunction Qualified Code(s): J95.03 - Malfunction of tracheostomy stoma Is this a current diagnosis for this admission?: Yes (6) Dementia Qualifiers: Dementia type: unspecified type Dementia behavioral disturbance: without behavioral disturbance Qualified Code(s): F03.90 - Unspecified dementia without behavioral disturbance Is this a current diagnosis for this admission?: Yes - Time Time Spent with patient: 15-24 minutes Critical Time spent with patient: 15-24 minutes Medications reviewed and adjusted accordingly: Yes Anticipated discharge: Other Within: Other - Inpatient Certification Medical Necessity: Significant Comorbidiites Make Outpatient Treatment Too Risky , Need Close Monitoring Due to Risk of Patient Decompensation, Need for IV Antibiotics Post Hospital Care: D/C Resource Analyst Documentation - Plan Summary Plan Summary: The current medications
--- NOTE | 2017-08-20 12:17 | PDOC PROGRESS REPORT ---
Subjective Progress Note for:: 08/20/17 - pna/resp failure Subjective:: Awake lethargic currently on trach collar Physical Exam Vital Signs: Temp Pulse Resp BP Pulse Ox 98.6 F 50 L 14 123/60 97 08/20/17 08:00 08/20/17 08:00 08/20/17 08:00 08/20/17 08:00 08/20/17 09:10 Pulse Oximeter Continuous Start: 08/12/17 15: 06 Freq: RTQ4 Status: Complete Document 08/12/17 20:24 [facility] (Rec: 08/12/17 21:45 [facility] [email or web address]) Pulse Oximetry Assessment Oxygen Saturation (92-100) 99 Oxygen Delivery Method Trach Collar Fraction of Inspired Oxygen (FIO2) 40 Equipment Usage Equipment in Use Continuous SpO2 Machine # N-9 Pulse Oximeter Continuous Start: 08/15/17 21: 04 Freq: RTQ4 Status: Complete Document 08/17/17 18:10 [facility] (Rec: 08/17/17 19:36 [facility] ECART_RESP_) Pulse Oximetry Assessment Equipment Usage Equipment Discontinued Continuous SpO2 Machine # N-13 Intake & Output 08/19/17 08/20/17 08/21/17 06:59 06:59 06:59 Intake Total 2378 2555 Output Total 660 1135 400 Balance 1718 1420 -400 Weight 65 kg 69.9 kg General appearance: PRESENT: thin, well-developed. ABSENT: no acute distress, cooperative, disheveled, hard of hearing, morbidly obese, severe distress Head exam: PRESENT: atraumatic, normocephalic Eye exam: PRESENT: conjunctiva pale, EOMI, PERRLA. ABSENT: conjunctival injection, conjunctiva pink, nystagmus, periorbital swelling, scleral icterus Mouth exam: PRESENT: dry mucosa, neck supple, tongue midline Neck exam: PRESENT: tracheostomy. ABSENT: carotid bruit, full ROM, JVD, meningismus, tenderness, thyromegaly, tracheal deviation Respiratory exam: PRESENT: decreased breath sounds, prolonged expiratory phas, rales, rhonchi, symmetrical, unlabored. ABSENT: accessory muscle use, chest wall tenderness, clear to auscultation monica, crackles, retraction, stridor, tachypnea Cardiovascular exam: PRESENT: gallop, RRR, +S1, +S2. ABSENT: clicks, irregular rhythm, rubs Pulses: PRESENT: normal radial pulses GI/Abdominal exam: PRESENT: normal bowel sounds, soft, other - PEG tube in place. ABSENT: distended, guarding, mass, organolmegaly, rebound, tenderness Gentrourinary exam: PRESENT: indwelling catheter Extremities exam: ABSENT: clubbing, joint swelling, +1 edema, +2 edema Musculoskeletal exam: ABSENT: ambulatory, deformity, dislocation Neurological exam: PRESENT: alert, awake Psychiatric exam: PRESENT: flat affect Skin exam: PRESENT: dry, warm Results Laboratory Results: 08/20/17 04:18 08/20/17 04:18 08/20/17 08/20/17 08/20/17 04:18 04:18 05:05 WBC 13.3 H RBC 3.74 Hgb 11.1 L Hct 33.1 L MCV 88 MCH 29.7 MCHC 33.6 RDW 15.0 H Plt Count 285 Seg Neutrophils % 46.2 Lymphocytes % 30.6 Monocytes % 10.4 Eosinophils % 11.9 H Basophils % 0.9 Absolute Neutrophils 6.1 Absolute Lymphocytes 4.1 Absolute Monocytes 1.4 Absolute Eosinophils 1.6 H Absolute Basophils 0.1 Carbonic Acid 0.85 L HCO3/H2CO3 Ratio 20:1 ABG pH 7.42 ABG pCO2 28.2 L ABG pO2 68.6 L ABG HCO3 17.8 L ABG O2 Saturation 94.3 ABG Base Excess -5.4 FiO2 21% Sodium 139.9 Potassium 4.6 Chloride 111 H Carbon Dioxide 17 L Anion Gap 12 BUN 20 Creatinine 0.75 Est GFR ( Amer) > 60 Est GFR (Non-Af Amer) > 60 Glucose 93 Calcium 10.2 Magnesium 1.8 08/17/17 21:33 [facility]acios Catheter Urine Culture - Final C.albicans/C.dubliniensis 08/17/17 21:33 Tracheal Aspirate Gram Stain - Final 08/17/17 21:33 Tracheal Aspirate Sputum Culture - Final NO GROWTH 2 DAYS 08/12/17 08/12/17 08/12/17 15:40 15:40 15:40 Creatine Kinase 40 CK-MB (CK-2) 1.62 Troponin I 0.056 NT-Pro-B Natriuret Pep 1470 H 08/12/17 08/12/17 08/13/17 21:40 21:40 03:49 Creatine Kinase 38 27 L CK-MB (CK-2) 1.52 Troponin I 0.059 NT-Pro-B Natriuret Pep 08/13/17 03:49 Creatine Kinase CK-MB (CK-2) 1.10 Troponin I 0.049 NT-Pro-B Natriuret Pep Impressions: Chest CT 08/12/17 00:00 IMPRESSION: RIGHT LOWER LOBE PNEUMONIA WITH ASSOCIATED SMALL PARAPNEUMONIC EFFUSION. ADDITIONAL CHRONIC CHANGES ABOVE. Chest X-Ray 08/20/17 06:00 IMPRESSION: Stable chest. Assessment & Plan - Diagnosis (1) Dementia Qualifiers: Dementia type: unspecified type Dementia behavioral disturbance: without behavioral disturbance Qualified Code(s): F03.90 - Unspecified dementia without behavioral disturbance Is this a current diagnosis for this admission?: Yes Plan: Unchanged (2) Gastrostomy status Is this a current diagnosis for this admission?: Yes Plan: Tube working adequately at this time (3) Hypoxia Is this a current diagnosis for this admission?: Yes Plan: Labs- All tests 24 hr 08/19/17 04:45 ABG pH 7.45 ABG pCO2 29.6 L ABG pO2 68.1 L ABG O2 Saturation 94.7 FiO2 21% Significant improvement over the last 24 hours intermittent use a trach collar versus mechanical ventilation (4) Pneumonia Qualifiers: Pneumonia type: due to Pseudomonas Laterality: left Lung location: lower lobe of lung Qualified Code(s): J15.1 - Pneumonia due to Pseudomonas Is this a current diagnosis for this admission?: Yes Plan: 08/13/17 00:40 Gram Stain - Final Tracheal Aspirate Sputum Culture - Final Pseudomonas Aeruginosa Corynebacterium Striatum Greatly Reduced Normal Nan (5) Eosinophilia Is this a current diagnosis for this admission?: Yes Plan: Labs- All tests 24 hr 08/13/17 08/14/17 08/15/17 03:49 06:08 03:55 Eosinophils % 0.3 8.1 H 8.7 H 08/17/17 08/18/17 08/19/17 18:10 03:59 04:00 Eosinophils % 0.5 5.8 12.5 H 08/20/17 04:18 Eosinophils % 11.9 H - Time Time Spent with patient: 40 minutes ICU
--- NOTE | 2017-08-20 17:29 | PDOC PROGRESS REPORT ---
Subjective Progress Note for:: 08/20/17 Subjective:: Patient noted to be more alert. Patient is extubated and currently on trach collar. Patient supposed to go back on ventilator tonight. Patient however looks comfortable and in acute distress. Patient remains in sinus rhythm. Medications reviewed. Physical Exam Vital Signs: Temp Pulse Resp BP Pulse Ox 97.2 F 49 L 18 110/53 L 99 08/20/17 16:00 08/20/17 16:00 08/20/17 16:00 08/20/17 16:00 08/20/17 16:46 Pulse Oximeter Continuous Start: 08/12/17 15: 06 Freq: RTQ4 Status: Complete Document 08/12/17 20:24 [facility] (Rec: 08/12/17 21:45 [facility] [email or web address]) Pulse Oximetry Assessment Oxygen Saturation (92-100) 99 Oxygen Delivery Method Trach Collar Fraction of Inspired Oxygen (FIO2) 40 Equipment Usage Equipment in Use Continuous SpO2 Machine # N-9 Pulse Oximeter Continuous Start: 08/15/17 21: 04 Freq: RTQ4 Status: Complete Document 08/17/17 18:10 [facility] (Rec: 08/17/17 19:36 [facility] [email or web address]) Pulse Oximetry Assessment Equipment Usage Equipment Discontinued Continuous SpO2 Machine # N-13 Intake & Output 08/19/17 08/20/17 08/21/17 06:59 06:59 06:59 Intake Total 2378 2555 647 Output Total 660 1135 1235 Balance 1718 1420 -588 Weight 65 kg 69.9 kg Exam: GENERAL: well-nourished and in no acute distress. Patient is alert, orientation not checked but patient does follow commands. HEAD: Atraumatic, normocephalic. EYES: Pupils equal round and reactive to light, extraocular movements intact, sclera anicteric, conjunctiva are normal. ENT: TMs normal, nares patent, oropharynx clear without exudates. Moist mucous membranes. No oral ulcerations or bleeding gums noted NECK: supple without lymphadenopathy or JVD. Tracheostomy tube noted. No cervical or axillary lymphadenopathy noted. Carotids are 2+ LUNGS: Breath sounds bibasilar fine crackles at bases. No significant dullness noted. CHEST: Palpation of chest wall shows no significant chest wall tenderness. HEART: [place] TACTICAL DEBRIEFER, No PSH, 2/6 MARITZA aortic area, 1/6 kemp systolic murmur mitral area, rubs or gallops. ABDOMEN: Soft, no significant tenderness appreciated, normoactive bowel sounds. No guarding, no rebound. No rigidity noted . No masses appreciated. EXTREMITIES: Pedal pulses are 1-2+, no calf tenderness noted, Trace + pedal edema noted. No clubbing or cyanosis. NEUROLOGICAL: Patient is alert but is not able to participate in neurological exam fully but patient able to move all 4 extremities. PSYCH: Psych exam not performed due to some communication problem from tracheostomy. SKIN: No significant ecchymosis, rash, ulcerations or signs of pruritus noted. MUSCULOSKELETAL EXAM: No significant joint swelling noted. Results Laboratory Results: 08/20/17 04:18 08/20/17 04:18 08/20/17 08/20/17 08/20/17 04:18 04:18 05:05 WBC 13.3 H RBC 3.74 Hgb 11.1 L Hct 33.1 L MCV 88 MCH 29.7 MCHC 33.6 RDW 15.0 H Plt Count 285 Seg Neutrophils % 46.2 Lymphocytes % 30.6 Monocytes % 10.4 Eosinophils % 11.9 H Basophils % 0.9 Absolute Neutrophils 6.1 Absolute Lymphocytes 4.1 Absolute Monocytes 1.4 Absolute Eosinophils 1.6 H Absolute Basophils 0.1 Carbonic Acid 0.85 L HCO3/H2CO3 Ratio 20:1 ABG pH 7.42 ABG pCO2 28.2 L ABG pO2 68.6 L ABG HCO3 17.8 L ABG O2 Saturation 94.3 ABG Base Excess -5.4 FiO2 21% Sodium 139.9 Potassium 4.6 Chloride 111 H Carbon Dioxide 17 L Anion Gap 12 BUN 20 Creatinine 0.75 Est GFR ( Amer) > 60 Est GFR (Non-Af Amer) > 60 Glucose 93 Calcium 10.2 Magnesium 1.8 08/12/17 08/12/17 08/12/17 15:40 15:40 15:40 Creatine Kinase 40 CK-MB (CK-2) 1.62 Troponin I 0.056 NT-Pro-B Natriuret Pep 1470 H 08/12/17 08/12/17 08/13/17 21:40 21:40 03:49 Creatine Kinase 38 27 L CK-MB (CK-2) 1.52 Troponin I 0.059 NT-Pro-B Natriuret Pep 08/13/17 03:49 Creatine Kinase CK-MB (CK-2) 1.10 Troponin I 0.049 NT-Pro-B Natriuret Pep EKG Comments: Telemetry strips reviewed showed patient maintaining sinus rhythm. Impressions: Chest CT 08/12/17 00:00 IMPRESSION: RIGHT LOWER LOBE PNEUMONIA WITH ASSOCIATED SMALL PARAPNEUMONIC EFFUSION. ADDITIONAL CHRONIC CHANGES ABOVE. Chest X-Ray 08/20/17 06:00 IMPRESSION: Stable chest. Assessment & Plan - Diagnosis (1) Cardiac dysrhythmia, unspecified Qualifiers: Arrhythmia type: unspecified cardiac arrhythmia Qualified Code(s): I49.9 - Cardiac arrhythmia, unspecified Is this a current diagnosis for this admission?: Yes (2) Dyspnea Qualifiers: Dyspnea type: shortness of breath Qualified Code(s): R06.02 - Shortness of breath; R06.00 - Dyspnea, unspecified; R06.01 - Orthopnea Is this a current diagnosis for this admission?: Yes (3) Hypoxemia Is this a current diagnosis for this admission?: Yes (4) Tracheostomy malfunction Is this a current diagnosis for this admission?: Yes (5) Type 2 diabetes mellitus Qualifiers: Diabetes mellitus complication status: with neurologic complications Diabetes mellitus complication detail: with polyneuropathy Diabetes mellitus rat exterminator insulin use: with rat exterminator use Qualified Code(s): E11.42 - Type 2 diabetes mellitus with diabetic polyneuropathy Is this a current diagnosis for this admission?: Yes (6) Right lower lobe pneumonia Qualifiers: Pneumonia type: due to unspecified organism Qualified Code(s): J18.1 - Lobar pneumonia, unspecified organism Is this a current diagnosis for this admission?: Yes - Notes Notes: Patient remained stable from cardiac standpoint. No sustained tachycardia or bradycardia arrhythmias noted. Patient's main problem seems to be pulmonary. Patient has long-standing tracheostomy and pulmonary/respiratory failure. Will sign off. Please reconsult if needed. - Time Time with patient: 15-25 minutes - More than 50% of the time spent coordinating care, discussing management plans with involved caregivers. Management plans discussed with involved personnels. Medical decision making was of moderate to high complexity, patient's has multiple comorbidities. Medications reviewed and adjusted accordingly: Yes
[2017-08-20] MEDS: GABAPENTIN 250 MG/5 ML PO SCH (18:25)
[2017-08-21 03:58] LABS: ABSOLUTE EOSINOPHILS # (AUTO) 1.3 10^3/uL (0.0-0.6); ABSOLUTE LYMPHOCYTES (AUTO) 3.3 10^3/uL (0.5-4.7); ABSOLUTE MONOCYTES (AUTO) 1.1 10^3/uL (0.1-1.4); ABSOLUTE NEUT (AUTO) 4.5 10^3/uL (1.7-8.2); BASOPHILS % (AUTO) 0.3 % (0-2); EOSINOPHILS % (AUTO) 12.7 % (0-6); HEMOGLOBIN 10.6 g/dL (12.0-15.5); HGB HCT DIFFERENCE 0.8; LYMPHOCYTES % (AUTO) 32.2 % (13-45); MEAN CORPUSCULAR HEMOGLOBIN 29.7 pg (27.0-33.4); MEAN CORPUSCULAR HGB CONC 34.1 g/dL (32.0-36.0); MEAN CORPUSCULAR VOLUME 87 fl (80-97); MONOCYTES % (AUTO) 10.4 % (3-13); RED BLOOD COUNT 3.57 10^6/uL (3.72-5.28); RED CELL DISTRIBUTION WIDTH 14.5 % (11.5-14.0); SEGMENTED NEUTROPHILS % (AUTO) 44.4 % (42-78); WHITE BLOOD COUNT 10.2 10^3/uL (4.0-10.5)
[2017-08-21 04:26] LABS: ANION GAP 11 (5-19); BLOOD UREA NITROGEN 19 mg/dL (7-20); CALCIUM 9.7 mg/dL (8.4-10.2); CARBON DIOXIDE 18 mmol/L (22-30); CHLORIDE 114 mmol/L (98-107); CREATININE RESULT 0.68 mg/dL (0.52-1.25); GLUCOSE 107 mg/dL (75-110); MAGNESIUM 1.7 mg/dL (1.6-2.3); PHOSPHORUS 3.4 mg/dL (2.5-4.5); POTASSIUM 3.9 mmol/L (3.6-5.0); SODIUM 142.5 mmol/L (137-145)
[2017-08-21 05:37] LABS: ARTERIAL BLOOD BASE EXCESS -1.9 mmol/L; ARTERIAL BLOOD O2 SATURATION 68.1 % (94-98)
[2017-08-21] MEDS: HEPARIN SOD (PORCINE) 5,000 UNIT/ML 1 ML SYRINGE SUBCUT SCH ×3 (06:07→22:00)
[2017-08-21 06:32] LABS: ARTERIAL BLOOD BASE EXCESS -2.8 mmol/L; ARTERIAL BLOOD O2 SATURATION 95.5 % (94-98)
--- NOTE | 2017-08-21 08:04 | RADIOLOGY REPORT (SQ) ---
EXAM DESCRIPTION: CHEST SINGLE VIEW COMPLETED DATE/TIME: 08/21/2017 7:49 am REASON FOR STUDY: pna/resp failure COMPARISON: 08/20/2017. EXAM PARAMETERS: NUMBER OF VIEWS: One view. TECHNIQUE: Single frontal radiographic view of the chest acquired. RADIATION DOSE: NA LIMITATIONS: None. FINDINGS: LUNGS AND PLEURA: Small to moderate opacity-layered effusion of bilateral lung bases. Mod erate -small aeration of lungs. MEDIASTINUM AND HILAR STRUCTURES: No masses. Contour normal. HEART AND VASCULAR STRUCTURES: Mild enlargement of the cardiac silhouette. Atherosclerosis. BONES: No acute findings. HARDWARE: Tracheostomy. OTHER: No other significant finding. IMPRESSION: No significant interval change. TECHNICAL DOCUMENTATION: JOB ID: [id number] [employer]- All Rights Reserved
[2017-08-21] MEDS: IPRATROPIUM/ALBUTEROL 0.5-2.5 MG/3 ML AMPUL NEB PRN (09:04)
[2017-08-21] MEDS: PHOSPHORUS #1 250 MG TABLET PEG SCH ×2 (09:47→17:38)
[2017-08-21] MEDS: MEMANTINE HCL 10 MG TABLET PO SCH (09:48)
[2017-08-21] MEDS: AMLODIPINE BESYLATE 10 MG TABLET PO SCH (09:48)
[2017-08-21] MEDS: LOSARTAN POTASSIUM 25 MG TABLET PO SCH (09:50)
[2017-08-21] MEDS: ASPIRIN 81 MG TABLET, CHEWABLE PO SCH (09:50)
[2017-08-21] MEDS: ASCORBIC ACID 500 MG TABLET PO SCH (09:51)
[2017-08-21] MEDS: VANCOMYCIN HCL 750 MG in DEXTROSE 5%-WATER 250 ML IV SCH ×2 (09:58→21:57)
--- NOTE | 2017-08-21 10:53 | PDOC PROGRESS REPORT ---
Subjective Progress Note for:: 08/21/17 Subjective:: Patient is currently doing better More alert awake According to the nursing staff no other events happens Family on a bedside Physical Exam Vital Signs: Temp Pulse Resp BP Pulse Ox 97.9 F 56 L 25 H 122/47 L 100 08/20/17 18:00 08/21/17 09:04 08/21/17 10:00 08/21/17 09:17 08/21/17 10:00 Pulse Oximeter Continuous Start: 08/12/17 15: 06 Freq: RTQ4 Status: Complete Document 08/12/17 20:24 [facility] (Rec: 08/12/17 21:45 [facility] [email or web address]) Pulse Oximetry Assessment Oxygen Saturation (92-100) 99 Oxygen Delivery Method Trach Collar Fraction of Inspired Oxygen (FIO2) 40 Equipment Usage Equipment in Use Continuous SpO2 Machine # N-9 Pulse Oximeter Continuous Start: 08/15/17 21: 04 Freq: RTQ4 Status: Complete Document 08/17/17 18:10 [facility] (Rec: 08/17/17 19:36 [facility] ECART_RESP_) Pulse Oximetry Assessment Equipment Usage Equipment Discontinued Continuous SpO2 Machine # N-13 Intake & Output 08/20/17 08/21/17 08/22/17 06:59 06:59 06:59 Intake Total 2555 1512 Output Total 1135 2585 200 Balance 1420 -1073 -200 Weight 69.9 kg 67.7 kg General appearance: PRESENT: no acute distress Eye exam: PRESENT: PERRLA Neck exam: PRESENT: tracheostomy Respiratory exam: PRESENT: clear to auscultation monica Cardiovascular exam: PRESENT: +S1, +S2 GI/Abdominal exam: PRESENT: normal bowel sounds, soft Neurological exam: PRESENT: alert, awake Psychiatric exam: PRESENT: anxious Skin exam: PRESENT: dry Results Laboratory Results: 08/21/17 03:47 08/21/17 03:47 08/21/17 08/21/17 08/21/17 03:47 03:47 03:47 WBC 10.2 RBC 3.57 L Hgb 10.6 L Hct 31.0 L MCV 87 MCH 29.7 MCHC 34.1 RDW 14.5 H Plt Count 270 Seg Neutrophils % 44.4 Lymphocytes % 32.2 Monocytes % 10.4 Eosinophils % 12.7 H Basophils % 0.3 Absolute Neutrophils 4.5 Absolute Lymphocytes 3.3 Absolute Monocytes 1.1 Absolute Eosinophils 1.3 H Absolute Basophils 0.0 Carbonic Acid HCO3/H2CO3 Ratio ABG pH ABG pCO2 ABG pO2 ABG HCO3 ABG O2 Saturation ABG Base Excess FiO2 Sodium 142.5 Potassium 3.9 Chloride 114 H Carbon Dioxide 18 L Anion Gap 11 BUN 19 Creatinine 0.68 Est GFR ( Amer) > 60 Est GFR (Non-Af Amer) > 60 Glucose 107 Lactic Acid 0.8 Calcium 9.7 Phosphorus 3.4 Magnesium 1.7 08/21/17 08/21/17 05:14 06:03 WBC RBC Hgb Hct MCV MCH MCHC RDW Plt Count Seg Neutrophils % Lymphocytes % Monocytes % Eosinophils % Basophils % Absolute Neutrophils Absolute Lymphocytes Absolute Monocytes Absolute Eosinophils Absolute Basophils Carbonic Acid 0.95 L 0.82 L HCO3/H2CO3 Ratio 22:1 24:1 ABG pH 7.45 7.48 H ABG pCO2 31.5 L 27.4 L ABG pO2 33.4 L* 70.8 L ABG HCO3 21.5 19.9 L ABG O2 Saturation 68.1 L 95.5 ABG Base Excess -1.9 -2.8 FiO2 21% 21% Sodium Potassium Chloride Carbon Dioxide Anion Gap BUN Creatinine Est GFR ( Amer) Est GFR (Non-Af Amer) Glucose Lactic Acid Calcium Phosphorus Magnesium 08/12/17 08/12/17 08/12/17 15:40 15:40 15:40 Creatine Kinase 40 CK-MB (CK-2) 1.62 Troponin I 0.056 NT-Pro-B Natriuret Pep 1470 H 08/12/17 08/12/17 08/13/17 21:40 21:40 03:49 Creatine Kinase 38 27 L CK-MB (CK-2) 1.52 Troponin I 0.059 NT-Pro-B Natriuret Pep 08/13/17 03:49 Creatine Kinase CK-MB (CK-2) 1.10 Troponin I 0.049 NT-Pro-B Natriuret Pep Impressions: Chest CT 08/12/17 00:00 IMPRESSION: RIGHT LOWER LOBE PNEUMONIA WITH ASSOCIATED SMALL PARAPNEUMONIC EFFUSION. ADDITIONAL CHRONIC CHANGES ABOVE. Chest X-Ray 08/21/17 06:00 IMPRESSION: No significant interval change. Assessment & Plan - Diagnosis (1) Acute respiratory failure Qualifiers: Respiratory failure complication: hypoxia Qualified Code(s): J96.01 - Acute respiratory failure with hypoxia Is this a current diagnosis for this admission?: Yes Plan: Continues to follow with the pulmonary and currently doing well (2) Gastrostomy status Is this a current diagnosis for this admission?: Yes Plan: Continues to feeding through the PEG tube (3) Pneumonia Qualifiers: Pneumonia type: due to unspecified organism Laterality: left Lung location: lower lobe of lung Qualified Code(s): J18.1 - Lobar pneumonia, unspecified organism Is this a current diagnosis for this admission?: Yes Plan: Continue IV antibiotic (4) Primary hyperparathyroidism Is this a current diagnosis for this admission?: Yes (5) Tracheostomy complication, unspecified Qualifiers: Tracheostomy complication: stoma malfunction Qualified Code(s): J95.03 - Malfunction of tracheostomy stoma Is this a current diagnosis for this admission?: Yes (6) Dementia Qualifiers: Dementia type: unspecified type Dementia behavioral disturbance: without behavioral disturbance Qualified Code(s): F03.90 - Unspecified dementia without behavioral disturbance Is this a current diagnosis for this admission?: Yes - Time Time Spent with patient: 15-24 minutes Medications reviewed and adjusted accordingly: Yes Anticipated discharge: Home Within: Other - Inpatient Certification Medical Necessity: Need Close Monitoring Due to Risk of Patient Decompensation Post Hospital Care: D/C Tin Pourer Documentation - Plan Summary Plan Summary: Continues to current medication
--- NOTE | 2017-08-21 15:31 | PDOC PROGRESS REPORT ---
Subjective Progress Note for:: 08/21/17 - acute/chronic resp failure/pna Subjective:: lethargic but arousable Physical Exam Vital Signs: Temp Pulse Resp BP Pulse Ox 97.9 F 56 L 25 H 122/47 L 100 08/20/17 18:00 08/21/17 09:04 08/21/17 10:00 08/21/17 09:17 08/21/17 10:00 Pulse Oximeter Continuous Start: 08/12/17 15: 06 Freq: RTQ4 Status: Complete Document 08/12/17 20:24 [facility] (Rec: 08/12/17 21:45 [facility]_RESP_) Pulse Oximetry Assessment Oxygen Saturation (92-100) 99 Oxygen Delivery Method Trach Collar Fraction of Inspired Oxygen (FIO2) 40 Equipment Usage Equipment in Use Continuous SpO2 Machine # N-9 Pulse Oximeter Continuous Start: 08/15/17 21: 04 Freq: RTQ4 Status: Complete Document 08/17/17 18:10 [facility] (Rec: 08/17/17 19:36 [facility] ECART_RESP_) Pulse Oximetry Assessment Equipment Usage Equipment Discontinued Continuous SpO2 Machine # N-13 Intake & Output 08/20/17 08/21/17 08/22/17 06:59 06:59 06:59 Intake Total 2555 1512 Output Total 1135 2585 200 Balance 1420 -1073 -200 Weight 69.9 kg 67.7 kg General appearance: PRESENT: disheveled, hard of hearing, thin, well-developed. ABSENT: no acute distress, mild distress, morbidly obese Head exam: PRESENT: atraumatic, normocephalic Eye exam: PRESENT: conjunctiva pale, EOMI. ABSENT: conjunctival injection, conjunctiva pink, nystagmus, periorbital swelling, scleral icterus Mouth exam: PRESENT: dry mucosa, neck supple, tongue midline. ABSENT: laceration, moist Neck exam: PRESENT: tracheostomy - dressing dry intact. ABSENT: carotid bruit, JVD, lymphadenopathy, thyromegaly, tracheal deviation Respiratory exam: PRESENT: crackles, decreased breath sounds, prolonged expiratory phas, rhonchi, symmetrical, unlabored. ABSENT: accessory muscle use , chest wall tenderness, clear to auscultation monica, rales, retraction, stridor, tachypnea Cardiovascular exam: PRESENT: RRR, +S1, +S2. ABSENT: irregular rhythm, rubs Pulses: PRESENT: normal radial pulses GI/Abdominal exam: PRESENT: normal bowel sounds, soft, other - feeding tube in place. ABSENT: distended, guarding, mass, organolmegaly, rebound, tenderness Gentrourinary exam: PRESENT: indwelling catheter Extremities exam: ABSENT: clubbing, joint swelling Musculoskeletal exam: ABSENT: ambulatory, deformity, dislocation, full ROM Neurological exam: PRESENT: awake Skin exam: PRESENT: dry, pallor, warm Results Laboratory Results: 08/21/17 03:47 08/21/17 03:47 08/21/17 08/21/17 08/21/17 03:47 03:47 03:47 WBC 10.2 RBC 3.57 L Hgb 10.6 L Hct 31.0 L MCV 87 MCH 29.7 MCHC 34.1 RDW 14.5 H Plt Count 270 Seg Neutrophils % 44.4 Lymphocytes % 32.2 Monocytes % 10.4 Eosinophils % 12.7 H Basophils % 0.3 Absolute Neutrophils 4.5 Absolute Lymphocytes 3.3 Absolute Monocytes 1.1 Absolute Eosinophils 1.3 H Absolute Basophils 0.0 Carbonic Acid HCO3/H2CO3 Ratio ABG pH ABG pCO2 ABG pO2 ABG HCO3 ABG O2 Saturation ABG Base Excess FiO2 Sodium 142.5 Potassium 3.9 Chloride 114 H Carbon Dioxide 18 L Anion Gap 11 BUN 19 Creatinine 0.68 Est GFR ( Amer) > 60 Est GFR (Non-Af Amer) > 60 Glucose 107 Lactic Acid 0.8 Calcium 9.7 Phosphorus 3.4 Magnesium 1.7 08/21/17 08/21/17 05:14 06:03 WBC RBC Hgb Hct MCV MCH MCHC RDW Plt Count Seg Neutrophils % Lymphocytes % Monocytes % Eosinophils % Basophils % Absolute Neutrophils Absolute Lymphocytes Absolute Monocytes Absolute Eosinophils Absolute Basophils Carbonic Acid 0.95 L 0.82 L HCO3/H2CO3 Ratio 22:1 24:1 ABG pH 7.45 7.48 H ABG pCO2 31.5 L 27.4 L ABG pO2 33.4 L* 70.8 L ABG HCO3 21.5 19.9 L ABG O2 Saturation 68.1 L 95.5 ABG Base Excess -1.9 -2.8 FiO2 21% 21% Sodium Potassium Chloride Carbon Dioxide Anion Gap BUN Creatinine Est GFR ( Amer) Est GFR (Non-Af Amer) Glucose Lactic Acid Calcium Phosphorus Magnesium 08/12/17 08/12/17 08/12/17 15:40 15:40 15:40 Creatine Kinase 40 CK-MB (CK-2) 1.62 Troponin I 0.056 NT-Pro-B Natriuret Pep 1470 H 08/12/17 08/12/17 08/13/17 21:40 21:40 03:49 Creatine Kinase 38 27 L CK-MB (CK-2) 1.52 Troponin I 0.059 NT-Pro-B Natriuret Pep 08/13/17 03:49 Creatine Kinase CK-MB (CK-2) 1.10 Troponin I 0.049 NT-Pro-B Natriuret Pep Impressions: Chest CT 08/12/17 00:00 IMPRESSION: RIGHT LOWER LOBE PNEUMONIA WITH ASSOCIATED SMALL PARAPNEUMONIC EFFUSION. ADDITIONAL CHRONIC CHANGES ABOVE. Chest X-Ray 08/21/17 06:00 IMPRESSION: No significant interval change. Assessment & Plan - Diagnosis (1) Dementia Qualifiers: Dementia type: unspecified type Dementia behavioral disturbance: without behavioral disturbance Qualified Code(s): F03.90 - Unspecified dementia without behavioral disturbance Is this a current diagnosis for this admission?: Yes (2) Gastrostomy status Is this a current diagnosis for this admission?: Yes (3) Hypoxia Is this a current diagnosis for this admission?: Yes Plan: Labs- All tests 24 hr 08/21/17 06:03 ABG pH 7.48 H ABG pCO2 27.4 L ABG pO2 70.8 L ABG O2 Saturation 95.5 FiO2 21% resp alkalosis (4) Pneumonia Qualifiers: Pneumonia type: due to Pseudomonas Laterality: left Lung location: lower lobe of lung Qualified Code(s): J15.1 - Pneumonia due to Pseudomonas Is this a current diagnosis for this admission?: Yes Plan: continue current antibiotic regimen (5) Eosinophilia Is this a current diagnosis for this admission?: Yes Plan: Labs- All tests 24 hr 08/21/17 03:47 Eosinophils % 12.7 H - Time Time Spent with patient: 40 min icu
[2017-08-21] MEDS: GABAPENTIN 250 MG/5 ML PO SCH (17:39)
--- NOTE | 2017-08-21 19:26 | XCELERA REPORT ---
[address] [address] Transthoracic Echocardiogram Report Name: BRIANA BRADY Age: 81 yrs Gender: Female : 1935 Patient Status: Inpatient Patient Location: ICU^2^A Study Date: 08/21/2017 02:32 PM Height: 67 in Weight: 154 lb BSA: 1.8 m2 Procedure: A complete two-dimensional transthoracic echocardiogram was performed (2D, M-mode, spectral and color flow Doppler). The study was technically difficult with many images being suboptimal in quality. Reason For Study: cardiac dysrhym Ordering Physician: MIRELLA JIMENEZ Performed By: Princess Coyle Interpretation Summary The study was technically difficult with many images being suboptimal in quality. The left ventricular ejection fraction is normal. There is borderline concentric left ventricular hypertrophy. The left ventricle is grossly normal size. Doppler measurements suggest pseudonormalized left ventricular relaxation, which is associated with grade II/IV or mild to moderate diastolic dysfunction Regional wall motion abnormalities cannot be excluded due to limited visualization. The right ventricular systolic function is normal. The left atrium is moderately dilated. The right atrium is mildly dilated. There is a mild amount of mitral regurgitation There is no mitral valve stenosis. There is mild aortic stenosis There is a peak gradient of 25 mm of Hg. There is a trace amount of aortic regurgitation There is a mild amount of tricuspid regurgitation There is mild to moderate pulmonary hypertension by echo Right ventricular systolic pressure is estimated to be elevated at 40- 50mmHg. Minimal pericardial effusion. MMode/2D Measurements & Calculations RVDd: 3.1 cm LVIDd: 4.7 cm FS: 43.1 % Ao root diam: IVSd: 1.00 cm LVIDs: 2.7 cm EDV(Teich): 3.0 cm LVPWd: 0.96 cm 100.9 ml Ao root area: ESV(Teich): 26.0 ml 7.2 cm2 EF(Teich): 74.3 %LA dimension: 4.7 cm LVOT diam: 2.1 cm LA A2Cs: LA length: 6.1 cm LA A4Cs: 25.8 cm2 LVOT area: 3.4 cm2 23.9 cm2 LA Vol Index (BP): LA Volume: 47.6 ml/m2 86.1 ml Doppler Measurements & Calculations MV E max gina: MV P1/2t max gina: Ao V2 max: LV V1 max P.5 cm/sec 78.5 cm/sec 247.6 cm/sec 4.1 mmHg MV A max gina: MV P1/2t: 54.3 msec Ao max PG: LV V1 mean P.6 cm/sec 24.5 mmHg 2.1 mmHg MV E/A: 0.73 MVA(P1/2t): 4.0 cm2 Ao V2 mean: LV V1 max: MV dec slope: 170.5 cm/sec 101.7 cm/sec 423.1 cm/sec2 Ao mean PG: LV V1 mean: 13.3 mmHg 66.8 cm/sec Ao V2 VTI: LV V1 VTI: 59.4 cm 25.4 cm CLAUDIA(I,D): 1.5 cm2 CLAUDIA(V,D): 1.4 cm2 SV(LVOT): 86.6 ml PA V2 max: TR max gina: 82.9 cm/sec 305.4 cm/sec PA max P.8 mmHg TR max P.3 mmHg Left Ventricle The left ventricle is grossly normal size. There is borderline concentric left ventricular hypertrophy. The left ventricular ejection fraction is normal. Doppler measurements suggest pseudonormalized left ventricular relaxation, which is associated with grade II/IV or mild to moderate diastolic dysfunction. Regional wall motion abnormalities cannot be excluded due to limited visualization. Right Ventricle The right ventricle is grossly normal size. There is normal right ventricular wall thickness. The right ventricular systolic function is normal. Atria The right atrium is mildly dilated. The left atrium is moderately dilated. Interarterial septum not well visualized and not well dopplered. Cannot comment on ASD/PFO presence. Mitral Valve There is mild mitral annular calcification. There is no mitral valve stenosis. There is a mild amount of mitral regurgitation. Aortic Valve The aortic valve is mildly calcified. There is mild aortic stenosis. There is a peak gradient of 25 mm of Hg. There is a trace amount of aortic regurgitation. Tricuspid Valve The tricuspid valve is not well visualized secondary to technical limitations. There is no tricuspid stenosis. There is a mild amount of tricuspid regurgitation. There is mild to moderate pulmonary hypertension by echo. Right ventricular systolic pressure is estimated to be elevated at 40-50mmHg. Pulmonic Valve The pulmonic valve is not well visualized. Great Vessels The aortic root is not well visualized. The inferior vena cava was not well visualized. Effusions Minimal pericardial effusion. : MIRELLA JIMENEZ > Mirella Jimenez
[2017-08-22 04:15] LABS: ABSOLUTE BASOPHILS # (AUTO) 0.1 10^3/uL (0.0-0.2); ABSOLUTE EOSINOPHILS # (AUTO) 1.4 10^3/uL (0.0-0.6); ABSOLUTE LYMPHOCYTES (AUTO) 3.4 10^3/uL (0.5-4.7); ABSOLUTE MONOCYTES (AUTO) 1.6 10^3/uL (0.1-1.4); ABSOLUTE NEUT (AUTO) 7.8 10^3/uL (1.7-8.2); BASOPHILS % (AUTO) 0.7 % (0-2); HEMATOCRIT 33.7 % (36.0-47.0); HEMOGLOBIN 11.2 g/dL (12.0-15.5); HGB HCT DIFFERENCE -0.1; LYMPHOCYTES % (AUTO) 23.5 % (13-45); MEAN CORPUSCULAR HEMOGLOBIN 29.7 pg (27.0-33.4); MEAN CORPUSCULAR HGB CONC 33.3 g/dL (32.0-36.0); MEAN CORPUSCULAR VOLUME 89 fl (80-97); MONOCYTES % (AUTO) 11.1 % (3-13); RED BLOOD COUNT 3.78 10^6/uL (3.72-5.28); SEGMENTED NEUTROPHILS % (AUTO) 54.7 % (42-78); WHITE BLOOD COUNT 14.3 10^3/uL (4.0-10.5)
[2017-08-22 04:32] LABS: ANION GAP 10 (5-19); BLOOD UREA NITROGEN 15 mg/dL (7-20); CARBON DIOXIDE 23 mmol/L (22-30); CHLORIDE 115 mmol/L (98-107); CREATININE RESULT 0.57 mg/dL (0.52-1.25); GLUCOSE 118 mg/dL (75-110); MAGNESIUM 1.8 mg/dL (1.6-2.3); POTASSIUM 3.7 mmol/L (3.6-5.0); SODIUM 148.2 mmol/L (137-145)
[2017-08-22] MEDS: HEPARIN SOD (PORCINE) 5,000 UNIT/ML 1 ML SYRINGE SUBCUT SCH ×2 (05:18→14:47)
[2017-08-22 05:55] LABS: ARTERIAL BLOOD BASE EXCESS -1.6 mmol/L; ARTERIAL BLOOD O2 SATURATION 91.6 % (94-98)
--- NOTE | 2017-08-22 07:56 | RADIOLOGY REPORT (SQ) ---
EXAM DESCRIPTION: CHEST SINGLE VIEW COMPLETED DATE/TIME: 08/22/2017 7:02 am REASON FOR STUDY: pna/chronic resp failure COMPARISON: 08/21/2017. EXAM PARAMETERS: NUMBER OF VIEWS: One view. TECHNIQUE: Single frontal radiographic view of the chest acquired. RADIATION DOSE: NA LIMITATIONS: None. FINDINGS: LUNGS AND PLEURA: Moderate-large bilateral lower hemithoracic opacity/layered effusion, ri ght more than left. Moderate -small aerated lung volume. MEDIASTINUM AND HILAR STRUCTURES: No masses. Contour normal. HEART AND VASCULAR STRUCTURES: Heart normal in size. Atherosclerosis. BONES: No acute findings. HARDWARE: Tracheostomy. OTHER: No other significant finding. IMPRESSION: Interval worsening includes moderate-large bilateral lower hemithoracic opacity -effusio nMary TECHNICAL DOCUMENTATION: JOB ID: [id number] [employer]- All Rights Reserved
[2017-08-22] MEDS: MEMANTINE HCL 10 MG TABLET PO SCH (09:18)
[2017-08-22] MEDS: PHOSPHORUS #1 250 MG TABLET PEG SCH ×2 (09:18→17:08)
[2017-08-22] MEDS: LOSARTAN POTASSIUM 25 MG TABLET PO SCH (09:19)
[2017-08-22] MEDS: ASCORBIC ACID 500 MG TABLET PO SCH (09:19)
[2017-08-22] MEDS: ASPIRIN 81 MG TABLET, CHEWABLE PO SCH (09:23)
[2017-08-22] MEDS: AMLODIPINE BESYLATE 10 MG TABLET PO SCH (09:24)
[2017-08-22] MEDS: VANCOMYCIN HCL 750 MG in DEXTROSE 5%-WATER 250 ML IV SCH ×2 (09:27→22:11)
[2017-08-22] MEDS: GABAPENTIN 250 MG/5 ML PO SCH (17:08)
--- NOTE | 2017-08-22 21:51 | PDOC PROGRESS REPORT ---
Subjective Progress Note for:: 08/22/17 Subjective:: She was seen by the bedside, presently in ICU, no longer requiring mechanical ventilation. Chest x-ray done today showed left pleural effusion, she will need thoracentesis before discharge. The plan of care was discussed with the daughter all of her concerns were addressed. Reason For Visit: HYPOXIA, LLL PNEUMONIA Physical Exam Vital Signs: Temp Pulse Resp BP Pulse Ox 97.9 F 93 25 H 148/87 H 95 08/22/17 20:00 08/22/17 20:00 08/22/17 20:00 08/22/17 20:00 08/22/17 20:00 Pulse Oximeter Continuous Start: 08/12/17 15: 06 Freq: RTQ4 Status: Complete Document 08/12/17 20:24 [facility] (Rec: 08/12/17 21:45 [facility] [email or web address]) Pulse Oximetry Assessment Oxygen Saturation (92-100) 99 Oxygen Delivery Method Trach Collar Fraction of Inspired Oxygen (FIO2) 40 Equipment Usage Equipment in Use Continuous SpO2 Machine # N-9 Pulse Oximeter Continuous Start: 08/15/17 21: 04 Freq: RTQ4 Status: Complete Document 08/17/17 18:10 [facility] (Rec: 08/17/17 19:36 [facility] [email or web address]) Pulse Oximetry Assessment Equipment Usage Equipment Discontinued Continuous SpO2 Machine # N-13 Intake & Output 08/21/17 08/22/17 08/23/17 06:59 06:59 06:59 Intake Total 1512 1755 804 Output Total 2585 3030 1295 Balance -1073 -1275 -491 Weight 67.7 kg 65.6 kg General appearance: PRESENT: no acute distress Head exam: PRESENT: atraumatic, normocephalic Eye exam: PRESENT: conjunctiva pink, EOMI, PERRLA. ABSENT: scleral icterus Ear exam: PRESENT: normal external ear exam Mouth exam: PRESENT: moist, tongue midline Neck exam: PRESENT: full ROM Respiratory exam: PRESENT: rhonchi Cardiovascular exam: PRESENT: RRR, +S1, +S2 Pulses: PRESENT: normal dorsalis pedis pul, +2 pedal pulses bilateral Vascular exam: PRESENT: normal capillary refill GI/Abdominal exam: PRESENT: normal bowel sounds, soft Rectal exam: PRESENT: deferred Neurological exam: PRESENT: alert, CN II-XII grossly intact Psychiatric exam: PRESENT: appropriate affect, normal mood Skin exam: PRESENT: dry, intact, warm Results Laboratory Results: 08/22/17 04:01 08/22/17 04:01 08/22/17 08/22/17 08/22/17 04:01 04:01 05:30 WBC 14.3 H RBC 3.78 Hgb 11.2 L Hct 33.7 L MCV 89 MCH 29.7 MCHC 33.3 RDW 15.0 H Plt Count 308 Seg Neutrophils % 54.7 Lymphocytes % 23.5 Monocytes % 11.1 Eosinophils % 10.0 H Basophils % 0.7 Absolute Neutrophils 7.8 Absolute Lymphocytes 3.4 Absolute Monocytes 1.6 H Absolute Eosinophils 1.4 H Absolute Basophils 0.1 Carbonic Acid 1.41 H HCO3/H2CO3 Ratio 17:1 ABG pH 7.34 L ABG pCO2 46.8 H ABG pO2 65.5 L ABG HCO3 24.5 ABG O2 Saturation 91.6 L ABG Base Excess -1.6 FiO2 35% Sodium 148.2 H Potassium 3.7 Chloride 115 H Carbon Dioxide 23 Anion Gap 10 BUN 15 Creatinine 0.57 Est GFR ( Amer) > 60 Est GFR (Non-Af Amer) > 60 Glucose 118 H Calcium 10.0 Magnesium 1.8 08/17/17 21:14 Blood Blood Culture - Final NO GROWTH IN 5 DAYS 08/17/17 20:09 Blood Blood Culture - Final NO GROWTH IN 5 DAYS 08/12/17 08/12/17 08/12/17 15:40 15:40 15:40 Creatine Kinase 40 CK-MB (CK-2) 1.62 Troponin I 0.056 NT-Pro-B Natriuret Pep 1470 H 08/12/17 08/12/17 08/13/17 21:40 21:40 03:49 Creatine Kinase 38 27 L CK-MB (CK-2) 1.52 Troponin I 0.059 NT-Pro-B Natriuret Pep 08/13/17 03:49 Creatine Kinase CK-MB (CK-2) 1.10 Troponin I 0.049 NT-Pro-B Natriuret Pep Impressions: Chest CT 08/12/17 00:00 IMPRESSION: RIGHT LOWER LOBE PNEUMONIA WITH ASSOCIATED SMALL PARAPNEUMONIC EFFUSION. ADDITIONAL CHRONIC CHANGES ABOVE. Chest X-Ray 08/22/17 06:00 IMPRESSION: Interval worsening includes moderate-large bilateral lower hemithoracic opacity -effusion. Assessment & Plan - Diagnosis (1) Pneumonia Qualifiers: Pneumonia type: due to Pseudomonas Laterality: left Lung location: lower lobe of lung Qualified Code(s): J15.1 - Pneumonia due to Pseudomonas Is this a current diagnosis for this admission?: Yes (2) Hypercalcemia Is this a current diagnosis for this admission?: Yes (3) Dementia Qualifiers: Dementia type: unspecified type Dementia behavioral disturbance: without behavioral disturbance Qualified Code(s): F03.90 - Unspecified dementia without behavioral disturbance Is this a current diagnosis for this admission?: Yes (4) Uncontrolled diabetes mellitus Qualifiers: Diabetes mellitus type: type 2 Diabetes mellitus complication status: with neurologic complications Diabetes mellitus complication detail: with polyneuropathy Diabetes mellitus fdc insulin use: with parts counterman use Qualified Code(s): E11.42 - Type 2 diabetes mellitus with diabetic polyneuropathy; E11.65 - Type 2 diabetes mellitus with hyperglycemia; E11.65 - Type 2 diabetes mellitus with hyperglycemia; E11.65 - Type 2 diabetes mellitus with hyperglycemia; E11.65 - Type 2 diabetes mellitus with hyperglycemia; Z79.4 - continuous churn buttermaker (current) use of insulin; Z79.4 - continuous churn buttermaker (current) use of insulin ; Z79.4 - continuous churn buttermaker (current) use of insulin; Z79.4 - continuous churn buttermaker (current) use of insulin Is this a current diagnosis for this admission?: Yes (5) Primary hyperparathyroidism Is this a current diagnosis for this admission?: Yes (6) Tracheostomy complication, unspecified Qualifiers: Tracheostomy complication: stoma malfunction Qualified Code(s): J95.03 - Malfunction of tracheostomy stoma Is this a current diagnosis for this admission?: Yes (7) Pleural effusion, left Is this a current diagnosis for this admission?: Yes Plan: This is probably parapneumonic effusion, ultrasound guided thoracentesis is ordered. Family informed of plan of care
[2017-08-23] MEDS: ONDANSETRON HCL 8 MG TABLET PO PRN (01:32)
[2017-08-23 07:09] LABS: PROTHROMBIN TIME 13.7 SEC (11.4-15.4)
[2017-08-23 07:12] LABS: ALBUMIN 2.9 g/dL (3.5-5.0); ANION GAP 11 (5-19); BLOOD UREA NITROGEN 15 mg/dL (7-20); CALCIUM 9.8 mg/dL (8.4-10.2); CARBON DIOXIDE 26 mmol/L (22-30); CHLORIDE 111 mmol/L (98-107); CREATININE RESULT 0.59 mg/dL (0.52-1.25); GLUCOSE 135 mg/dL (75-110); LDH 363 U/L (313-618); MAGNESIUM 1.8 mg/dL (1.6-2.3); SODIUM 147.5 mmol/L (137-145)
[2017-08-23] MEDS: LOSARTAN POTASSIUM 25 MG TABLET PO SCH (10:10)
[2017-08-23] MEDS: ASPIRIN 81 MG TABLET, CHEWABLE PO SCH (10:11)
[2017-08-23] MEDS: MEMANTINE HCL 10 MG TABLET PO SCH (10:12)
[2017-08-23] MEDS: ASCORBIC ACID 500 MG TABLET PO SCH (10:12)
[2017-08-23] MEDS: AMLODIPINE BESYLATE 10 MG TABLET PO SCH (10:12)
[2017-08-23] MEDS: PHOSPHORUS #1 250 MG TABLET PEG SCH ×2 (10:12→17:56)
[2017-08-23] MEDS: VANCOMYCIN HCL 750 MG in DEXTROSE 5%-WATER 250 ML IV SCH (10:19)
[2017-08-23] MEDS: SCOPOLAMINE HYDROBROMIDE 1.5 MG PATCH.TD72 TD SCH (10:34)
--- NOTE | 2017-08-23 12:03 | RADIOLOGY REPORT (SQ) ---
EXAM DESCRIPTION: U/S CHEST COMPLETED DATE/TIME: 08/23/2017 11:52 am REASON FOR STUDY: pleural effusion COMPARISON: Chest films 08/22/2017, 08/21/2017, 08/20/2017 TECHNIQUE: Patient was unable to sit upright. Right decubitus, left decubitus imaging of the chest was performed with ultrasound. Grayscale and ci ne images saved to pac's. LIMITATIONS: None. FINDINGS: Ultrasound of the right and left chest was performed in the right decubitus and left decub itus position. There are very small bilateral pleural effusions present, very limited window for access for thoracen tesis. Procedure canceled. There is collapse and consolidation of the right and left lower lobes. IMPRESSION: Small bilateral pleural effusions with right and left lower lobe partial collapse and co nsolidation. No thoracentesis performed today TECHNICAL DOCUMENTATION: JOB ID: [id number] [employer]- All Rights Reserved
[2017-08-23] MEDS: LEVOFLOXACIN 750 MG/D5W RTU 750 MG/150 ML RTUPB IV SCH (13:02)
[2017-08-23] MEDS: GABAPENTIN 250 MG/5 ML PO SCH (17:53)
[2017-08-23] MEDS: CEFEPIME 2 GM/D5W RTU 2 GM/50 ML RTUPB IV SCH (17:53)
[2017-08-23] MEDS: IPRATROPIUM/ALBUTEROL 0.5-2.5 MG/3 ML AMPUL NEB PRN (21:14)
--- NOTE | 2017-08-23 21:15 | PDOC PROGRESS REPORT ---
Subjective Progress Note for:: 08/23/17 Subjective:: The chest x-ray yesterday suggests pleural effusion, she was in radiology for ultrasound guided thoracentesis but the ultrasound showed minimal fluid in the pleural space not enough for thoracentesis Reason For Visit: HYPOXIA, LLL PNEUMONIA Physical Exam Vital Signs: Temp Pulse Resp BP Pulse Ox 98.9 F 86 22 H 142/67 H 91 L 08/23/17 19:53 08/23/17 19:53 08/23/17 15:42 08/23/17 19:53 08/23/17 19:53 Pulse Oximeter Continuous Start: 08/12/17 15: 06 Freq: RTQ4 Status: Complete Document 08/12/17 20:24 [facility] (Rec: 08/12/17 21:45 [facility] [email or web address]) Pulse Oximetry Assessment Oxygen Saturation (92-100) 99 Oxygen Delivery Method Trach Collar Fraction of Inspired Oxygen (FIO2) 40 Equipment Usage Equipment in Use Continuous SpO2 Machine # N-9 Pulse Oximeter Continuous Start: 08/15/17 21: 04 Freq: RTQ4 Status: Complete Document 08/17/17 18:10 [facility] (Rec: 08/17/17 19:36 [facility] [email or web address]) Pulse Oximetry Assessment Equipment Usage Equipment Discontinued Continuous SpO2 Machine # N-13 Intake & Output 08/22/17 08/23/17 08/24/17 06:59 06:59 06:59 Intake Total 1755 1636 560 Output Total 3030 1800 375 Balance -1275 -164 185 Weight 65.6 kg Results Laboratory Results: 08/22/17 04:01 08/23/17 06:03 08/23/17 06:03 Sodium 147.5 H Potassium 4.0 Chloride 111 H Carbon Dioxide 26 Anion Gap 11 BUN 15 Creatinine 0.59 Est GFR ( Amer) > 60 Est GFR (Non-Af Amer) > 60 Glucose 135 H Calcium 9.8 Magnesium 1.8 Albumin 2.9 L 08/17/17 21:14 Blood Blood Culture - Final NO GROWTH IN 5 DAYS 08/17/17 20:09 Blood Blood Culture - Final NO GROWTH IN 5 DAYS 08/12/17 08/12/17 08/12/17 15:40 15:40 15:40 Creatine Kinase 40 CK-MB (CK-2) 1.62 Troponin I 0.056 NT-Pro-B Natriuret Pep 1470 H 08/12/17 08/12/17 08/13/17 21:40 21:40 03:49 Creatine Kinase 38 27 L CK-MB (CK-2) 1.52 Troponin I 0.059 NT-Pro-B Natriuret Pep 08/13/17 03:49 Creatine Kinase CK-MB (CK-2) 1.10 Troponin I 0.049 NT-Pro-B Natriuret Pep Impressions: Chest CT 08/12/17 00:00 IMPRESSION: RIGHT LOWER LOBE PNEUMONIA WITH ASSOCIATED SMALL PARAPNEUMONIC EFFUSION. ADDITIONAL CHRONIC CHANGES ABOVE. Chest X-Ray 08/22/17 06:00 IMPRESSION: Interval worsening includes moderate-large bilateral lower hemithoracic opacity -effusion. Chest Ultrasound 08/23/17 18:39 IMPRESSION: Small bilateral pleural effusions with right and left lower lobe partial collapse and consolidation. No thoracentesis performed today Assessment & Plan - Diagnosis (1) Pneumonia Qualifiers: Pneumonia type: due to Pseudomonas Laterality: left Lung location: lower lobe of lung Qualified Code(s): J15.1 - Pneumonia due to Pseudomonas Is this a current diagnosis for this admission?: Yes (2) Hypercalcemia Is this a current diagnosis for this admission?: Yes (3) Dementia Qualifiers: Dementia type: unspecified type Dementia behavioral disturbance: without behavioral disturbance Qualified Code(s): F03.90 - Unspecified dementia without behavioral disturbance Is this a current diagnosis for this admission?: Yes (4) Uncontrolled diabetes mellitus Qualifiers: Diabetes mellitus type: type 2 Diabetes mellitus complication status: with neurologic complications Diabetes mellitus complication detail: with polyneuropathy Diabetes mellitus terminal operations supervisor insulin use: with mcc use Qualified Code(s): E11.42 - Type 2 diabetes mellitus with diabetic polyneuropathy; E11.65 - Type 2 diabetes mellitus with hyperglycemia; E11.65 - Type 2 diabetes mellitus with hyperglycemia; E11.65 - Type 2 diabetes mellitus with hyperglycemia; E11.65 - Type 2 diabetes mellitus with hyperglycemia; Z79.4 - terminal gauger supervisor (current) use of insulin; Z79.4 - terminal gauger supervisor (current) use of insulin ; Z79.4 - senior care (current) use of insulin; Z79.4 - terminal gauger supervisor (current) use of insulin Is this a current diagnosis for this admission?: Yes (5) Primary hyperparathyroidism Is this a current diagnosis for this admission?: Yes (6) Tracheostomy complication, unspecified Qualifiers: Tracheostomy complication: stoma malfunction Qualified Code(s): J95.03 - Malfunction of tracheostomy stoma Is this a current diagnosis for this admission?: Yes (7) Pleural effusion, left Is this a current diagnosis for this admission?: Yes
[2017-08-23] MEDS: HEPARIN SOD (PORCINE) 5,000 UNIT/ML 1 ML SYRINGE SUBCUT SCH (21:32)
[2017-08-24] MEDS: HEPARIN SOD (PORCINE) 5,000 UNIT/ML 1 ML SYRINGE SUBCUT SCH ×3 (05:14→21:21)
[2017-08-24] MEDS: CEFEPIME 2 GM/D5W RTU 2 GM/50 ML RTUPB IV SCH ×2 (05:17→18:11)
[2017-08-24] MEDS: INSULIN REG, HUMAN 100 UNIT/ML 3 ML VIAL (PYX) SUBCUT PRN (06:13)
[2017-08-24 06:29] LABS: ANION GAP 10 (5-19); BLOOD UREA NITROGEN 22 mg/dL (7-20); CALCIUM 9.7 mg/dL (8.4-10.2); CARBON DIOXIDE 28 mmol/L (22-30); CHLORIDE 110 mmol/L (98-107); CREATININE RESULT 0.85 mg/dL (0.52-1.25); GLUCOSE 143 mg/dL (75-110); POTASSIUM 4.2 mmol/L (3.6-5.0); SODIUM 147.6 mmol/L (137-145)
--- NOTE | 2017-08-24 07:10 | PDOC PROGRESS REPORT ---
Subjective Progress Note for:: 08/22/17 - acute/chronic resp failure/pna Subjective:: lethargic but arousable Physical Exam Vital Signs: Temp Pulse Resp BP Pulse Ox 98.0 F 66 32 H 121/55 L 96 08/22/17 08:00 08/22/17 08:00 08/22/17 08:00 08/22/17 08:00 08/22/17 08:00 Pulse Oximeter Continuous Start: 08/12/17 15: 06 Freq: RTQ4 Status: Complete Document 08/12/17 20:24 [facility] (Rec: 08/12/17 21:45 [email or web address]_) Pulse Oximetry Assessment Oxygen Saturation (92-100) 99 Oxygen Delivery Method Trach Collar Fraction of Inspired Oxygen (FIO2) 40 Equipment Usage Equipment in Use Continuous SpO2 Machine # N-9 Pulse Oximeter Continuous Start: 08/15/17 21: 04 Freq: RTQ4 Status: Complete Document 08/17/17 18:10 [facility] (Rec: 08/17/17 19:36 [facility] [email or web address]_) Pulse Oximetry Assessment Equipment Usage Equipment Discontinued Continuous SpO2 Machine # N-13 Intake & Output 08/21/17 08/22/17 08/23/17 06:59 06:59 06:59 Intake Total 1512 1755 Output Total 2585 3030 60 Balance -1073 -1275 -60 Weight 67.7 kg 65.6 kg General appearance: PRESENT: thin. ABSENT: no acute distress, cooperative, disheveled, morbidly obese, obese, severe distress Head exam: PRESENT: atraumatic, normocephalic Eye exam: PRESENT: conjunctiva pale. ABSENT: conjunctival injection, conjunctiva pink, nystagmus, periorbital swelling, scleral icterus Mouth exam: PRESENT: dry mucosa, neck supple, tongue midline Neck exam: ABSENT: carotid bruit, JVD, lymphadenopathy, thyromegaly Respiratory exam: PRESENT: crackles, decreased breath sounds, prolonged expiratory phas, rhonchi, symmetrical, unlabored, wheezes. ABSENT: accessory muscle use, chest wall tenderness, clear to auscultation monica, rales, retraction , stridor, tachypnea Cardiovascular exam: PRESENT: irregular rhythm, RRR, +S1, +S2. ABSENT: rubs Pulses: PRESENT: normal radial pulses GI/Abdominal exam: PRESENT: normal bowel sounds, soft Extremities exam: ABSENT: calf tenderness, clubbing Musculoskeletal exam: ABSENT: ambulatory, deformity, dislocation Neurological exam: ABSENT: awake Skin exam: PRESENT: dry, warm Results Laboratory Results: 08/22/17 04:01 08/22/17 04:01 08/22/17 08/22/17 08/22/17 04:01 04:01 05:30 WBC 14.3 H RBC 3.78 Hgb 11.2 L Hct 33.7 L MCV 89 MCH 29.7 MCHC 33.3 RDW 15.0 H Plt Count 308 Seg Neutrophils % 54.7 Lymphocytes % 23.5 Monocytes % 11.1 Eosinophils % 10.0 H Basophils % 0.7 Absolute Neutrophils 7.8 Absolute Lymphocytes 3.4 Absolute Monocytes 1.6 H Absolute Eosinophils 1.4 H Absolute Basophils 0.1 Carbonic Acid 1.41 H HCO3/H2CO3 Ratio 17:1 ABG pH 7.34 L ABG pCO2 46.8 H ABG pO2 65.5 L ABG HCO3 24.5 ABG O2 Saturation 91.6 L ABG Base Excess -1.6 FiO2 35% Sodium 148.2 H Potassium 3.7 Chloride 115 H Carbon Dioxide 23 Anion Gap 10 BUN 15 Creatinine 0.57 Est GFR ( Amer) > 60 Est GFR (Non-Af Amer) > 60 Glucose 118 H Calcium 10.0 Magnesium 1.8 08/12/17 08/12/17 08/12/17 15:40 15:40 15:40 Creatine Kinase 40 CK-MB (CK-2) 1.62 Troponin I 0.056 NT-Pro-B Natriuret Pep 1470 H 08/12/17 08/12/17 08/13/17 21:40 21:40 03:49 Creatine Kinase 38 27 L CK-MB (CK-2) 1.52 Troponin I 0.059 NT-Pro-B Natriuret Pep 08/13/17 03:49 Creatine Kinase CK-MB (CK-2) 1.10 Troponin I 0.049 NT-Pro-B Natriuret Pep Impressions: Chest CT 08/12/17 00:00 IMPRESSION: RIGHT LOWER LOBE PNEUMONIA WITH ASSOCIATED SMALL PARAPNEUMONIC EFFUSION. ADDITIONAL CHRONIC CHANGES ABOVE. Chest X-Ray 08/22/17 06:00 IMPRESSION: Interval worsening includes moderate-large bilateral lower hemithoracic opacity -effusion. Assessment & Plan - Diagnosis (1) Dementia Qualifiers: Dementia type: unspecified type Dementia behavioral disturbance: without behavioral disturbance Qualified Code(s): F03.90 - Unspecified dementia without behavioral disturbance Is this a current diagnosis for this admission?: Yes Plan: Unchanged (2) Gastrostomy status Is this a current diagnosis for this admission?: Yes Plan: Tube working adequately at this time (3) Hypoxia Is this a current diagnosis for this admission?: Yes Plan: Labs- All tests 24 hr 08/21/17 08/22/17 06:03 05:30 ABG pH 7.48 H 7.34 L ABG pCO2 27.4 L 46.8 H ABG pO2 70.8 L 65.5 L ABG O2 Saturation 95.5 91.6 L FiO2 21% 35% (4) Pneumonia Qualifiers: Pneumonia type: due to Pseudomonas Laterality: left Lung location: lower lobe of lung Qualified Code(s): J15.1 - Pneumonia due to Pseudomonas Is this a current diagnosis for this admission?: Yes Plan: continue current antibiotic regimen (5) Eosinophilia Is this a current diagnosis for this admission?: Yes
[2017-08-24] MEDS: ASPIRIN 81 MG TABLET, CHEWABLE PO SCH (09:52)
[2017-08-24] MEDS: MEMANTINE HCL 10 MG TABLET PO SCH (09:52)
[2017-08-24] MEDS: AMLODIPINE BESYLATE 10 MG TABLET PO SCH (09:52)
[2017-08-24] MEDS: ASCORBIC ACID 500 MG TABLET PO SCH (09:52)
[2017-08-24] MEDS: LOSARTAN POTASSIUM 25 MG TABLET PO SCH (09:52)
[2017-08-24] MEDS: PHOSPHORUS #1 250 MG TABLET PEG SCH ×2 (09:52→18:12)
[2017-08-24] MEDS: LEVOFLOXACIN 750 MG/D5W RTU 750 MG/150 ML RTUPB IV SCH (10:12)
--- NOTE | 2017-08-24 15:41 | PDOC DISCHARGE SUMMARY ---
General - Admit/Disc Date/PCP Admission Date/Primary Care Provider: 08/12/17 12:39 BAKARI BECKER MD Discharge Date: 08/25/17 - Discharge Diagnosis (1) Pneumonia Is this a current diagnosis for this admission?: Yes (2) Hypercalcemia Is this a current diagnosis for this admission?: Yes (3) Dementia Is this a current diagnosis for this admission?: Yes (4) Uncontrolled diabetes mellitus Is this a current diagnosis for this admission?: Yes (5) Primary hyperparathyroidism Is this a current diagnosis for this admission?: Yes (6) Tracheostomy complication, unspecified Is this a current diagnosis for this admission?: Yes (7) Pleural effusion, left Is this a current diagnosis for this admission?: Yes (8) Acute hypoxemic respiratory failure Is this a current diagnosis for this admission?: Yes (9) Tracheostomy malfunction Is this a current diagnosis for this admission?: Yes - Additional Information Discharge Activity: Activity As Tolerated Home Medications: Amlodipine Besylate [Norvasc 10 mg Tablet] 10 mg PO DAILY 12/16/16 Ascorbic Acid [Vitamin C 500 mg Tablet] 500 mg PO DAILY 12/16/16 Memantine HCl [Namenda 10 mg Tablet] 10 mg PO DAILY 12/16/16 Ondansetron HCl [Zofran 4 mg Tablet] 8 mg PO TIDP PRN 12/16/16 Albuterol Sulfate [Albuterol Sulfate 2.5mg/3 mL] 1 vial IH RTQ6HP PRN 08/12/17 Aspirin 81 mg PO DAILY 08/12/17 Gabapentin [Neurontin] 300 mg PO QPM 08/12/17 Insulin Aspart [Novolog Insulin (Aspart) 100 unit/mL] 0 unit SUBCUT .SLD SCALE 08/12/17 Losartan Potassium [Cozaar 25 mg Tablet] 25 mg PO DAILY 08/12/17 Scopolamine Hydrobromide [Transderm-Scop 1.5 mg Patch] 1 each TD Q3DAYS #15 patch.[id number] 08/24/17 History of Present Illness History of Present Illness: BRIANA RBADY is a 81 year old female, she has multiple comorbid conditions including type 2 diabetes mellitus, peripheral vascular disease status post amputation of the right leg, chronic trach dependency, dementia she was transferred from home to the emergency room for evaluation of low oxygen saturation. The oxygen saturation was 60% on room air, patient's daughter stated that usually the home health nurse suction the tracheostomy but lately the patient has not been very cooperative with the home health nurse because the suctioning was getting too uncomfortable for the patient so she believes that the patient probably aspirated. She was seen and evaluated in the emergency room, a chest x-ray was done, it showed ill-defined retrocardiac opacification suggesting left lower lobe pneumonia also found was leukocytosis , white cell count was 21,000. There was associated hypercalcemia and azotemia suggesting dehydration. History taking is a challenge from this patient because of the underlining dementia. Hospital Course Hospital Course: Patient was admitted for the management of pneumonia, hospital course was complicated with acute hypoxemic respiratory failure requiring mechanical ventilation, she had a tracheostomy there was dysfunction of the tracheostomy partly due to plugging with mucus. She was treated with IV antibiotic, she also have hypercalcemia secondary to primary hyperparathyroidism this was treated with IV fluid. She is not a candidate for parathyroidectomy. Patient is nonambulatory, overall prognosis is poor. She was also in intensive care unit because of the hypoxemic respiratory failure and because she required mechanical ventilation. Advance care planning was discussed with family, patient needed to be a DNR but family is not particularly receptive, I advised them to think of advance care planning going forward. She has a PEG tube and she normally uses bolus feeding at home on this admission she was fed with continuous tube feeding rather than bolus tube feeding she also have pleural effusion but not large enough for thoracentesis Physical Exam Vital Signs: Temp Pulse Resp BP Pulse Ox 98.3 F 83 18 135/52 H 96 08/24/17 12:19 08/24/17 14:00 08/24/17 12:19 08/24/17 12:19 08/24/17 12:19 Pulse Oximeter Continuous Start: 08/12/17 15: 06 Freq: RTQ4 Status: Complete Document 08/12/17 20:24 [facility] (Rec: 08/12/17 21:45 [email or web address]) Pulse Oximetry Assessment Oxygen Saturation (92-100) 99 Oxygen Delivery Method Trach Collar Fraction of Inspired Oxygen (FIO2) 40 Equipment Usage Equipment in Use Continuous SpO2 Machine # N-9 Pulse Oximeter Continuous Start: 08/15/17 21: 04 Freq: RTQ4 Status: Complete Document 08/17/17 18:10 [facility] (Rec: 08/17/17 19:36 [email or web address]) Pulse Oximetry Assessment Equipment Usage Equipment Discontinued Continuous SpO2 Machine # N-13 Intake & Output 08/23/17 08/24/17 08/25/17 06:59 06:59 06:59 Intake Total 1636 952 390 Output Total 1800 675 200 Balance -164 277 190 Weight 67.3 kg General appearance: PRESENT: no acute distress Head exam: PRESENT: atraumatic, normocephalic Eye exam: ABSENT: scleral icterus Ear exam: PRESENT: normal external ear exam Mouth exam: PRESENT: moist, tongue midline Neck exam: PRESENT: full ROM, tracheostomy Respiratory exam: PRESENT: clear to auscultation monica Cardiovascular exam: PRESENT: RRR, +S1, +S2 Vascular exam: PRESENT: normal capillary refill GI/Abdominal exam: PRESENT: normal bowel sounds, soft Rectal exam: PRESENT: deferred Neurological exam: PRESENT: alert. ABSENT: motor sensory deficit Skin exam: PRESENT: dry, intact, warm. ABSENT: cyanosis, rash Results Laboratory Results: 08/22/17 04:01 08/24/17 05:43 08/24/17 05:43 Sodium 147.6 H Potassium 4.2 Chloride 110 H Carbon Dioxide 28 Anion Gap 10 BUN 22 H Creatinine 0.85 Est GFR ( Amer) > 60 Est GFR (Non-Af Amer) > 60 Glucose 143 H Calcium 9.7 08/12/17 08/12/17 08/12/17 15:40 15:40 15:40 Creatine Kinase 40 CK-MB (CK-2) 1.62 Troponin I 0.056 NT-Pro-B Natriuret Pep 1470 H 08/12/17 08/12/17 08/13/17 21:40 21:40 03:49 Creatine Kinase 38 27 L CK-MB (CK-2) 1.52 Troponin I 0.059 NT-Pro-B Natriuret Pep 08/13/17 03:49 Creatine Kinase CK-MB (CK-2) 1.10 Troponin I 0.049 NT-Pro-B Natriuret Pep Impressions: Chest CT 08/12/17 00:00 IMPRESSION: RIGHT LOWER LOBE PNEUMONIA WITH ASSOCIATED SMALL PARAPNEUMONIC EFFUSION. ADDITIONAL CHRONIC CHANGES ABOVE. Chest X-Ray 08/22/17 06:00 IMPRESSION: Interval worsening includes moderate-large bilateral lower hemithoracic opacity -effusion. Chest Ultrasound 08/23/17 18:39 IMPRESSION: Small bilateral pleural effusions with right and left lower lobe partial collapse and consolidation. No thoracentesis performed today
[2017-08-24] MEDS: IPRATROPIUM/ALBUTEROL 0.5-2.5 MG/3 ML AMPUL NEB PRN (16:15)
[2017-08-24] MEDS: GABAPENTIN 250 MG/5 ML PO SCH (18:12)
[2017-08-25] MEDS: HEPARIN SOD (PORCINE) 5,000 UNIT/ML 1 ML SYRINGE SUBCUT SCH (05:03)
[2017-08-25] MEDS: CEFEPIME 2 GM/D5W RTU 2 GM/50 ML RTUPB IV SCH (05:04)
--- NOTE | 2017-08-25 06:44 | PDOC PROGRESS REPORT ---
Subjective Progress Note for:: 08/23/17 Subjective:: lethargic Reason For Visit: HYPOXIA, LLL PNEUMONIA Physical Exam Vital Signs: Temp Pulse Resp BP Pulse Ox 98.3 F 63 18 123/54 L 94 08/23/17 07:53 08/23/17 07:53 08/23/17 07:53 08/23/17 07:53 08/23/17 08:00 Pulse Oximeter Continuous Start: 08/12/17 15: 06 Freq: RTQ4 Status: Complete Document 08/12/17 20:24 [facility] (Rec: 08/12/17 21:45 [facility] [email or web address]) Pulse Oximetry Assessment Oxygen Saturation (92-100) 99 Oxygen Delivery Method Trach Collar Fraction of Inspired Oxygen (FIO2) 40 Equipment Usage Equipment in Use Continuous SpO2 Machine # N-9 Pulse Oximeter Continuous Start: 08/15/17 21: 04 Freq: RTQ4 Status: Complete Document 08/17/17 18:10 [facility] (Rec: 08/17/17 19:36 [facility] ECART_RESP_) Pulse Oximetry Assessment Equipment Usage Equipment Discontinued Continuous SpO2 Machine # N-13 Intake & Output 08/22/17 08/23/17 08/24/17 06:59 06:59 06:59 Intake Total 1755 1636 Output Total 3030 1800 Balance -1275 -164 Weight 65.6 kg General appearance: PRESENT: disheveled, hard of hearing, thin, well-developed, well-nourished. ABSENT: no acute distress, cooperative, mild distress, morbidly obese, obese, severe distress Head exam: PRESENT: atraumatic, normocephalic Eye exam: PRESENT: conjunctiva pale, EOMI. ABSENT: conjunctival injection, conjunctiva pink, nystagmus, periorbital swelling, scleral icterus Mouth exam: PRESENT: dry mucosa, neck supple, tongue midline. ABSENT: laceration Neck exam: PRESENT: tracheostomy. ABSENT: carotid bruit, JVD, lymphadenopathy, thyromegaly, tracheal deviation Respiratory exam: PRESENT: decreased breath sounds, prolonged expiratory phas, rhonchi, symmetrical, wheezes. ABSENT: accessory muscle use, chest wall tenderness, clear to auscultation monica, crackles, rales, retraction, stridor, tachypnea, unlabored Cardiovascular exam: ABSENT: clicks, irregular rhythm, rubs Pulses: PRESENT: normal radial pulses GI/Abdominal exam: PRESENT: normal bowel sounds, soft. ABSENT: distended, guarding, mass, organolmegaly, rebound, tenderness Gentrourinary exam: PRESENT: indwelling catheter Extremities exam: ABSENT: calf tenderness, clubbing, joint swelling Musculoskeletal exam: ABSENT: ambulatory, deformity, dislocation Neurological exam: PRESENT: awake Psychiatric exam: PRESENT: flat affect Skin exam: PRESENT: dry, warm Results Laboratory Results: 08/22/17 04:01 08/23/17 06:03 08/23/17 06:03 Sodium 147.5 H Potassium 4.0 Chloride 111 H Carbon Dioxide 26 Anion Gap 11 BUN 15 Creatinine 0.59 Est GFR ( Amer) > 60 Est GFR (Non-Af Amer) > 60 Glucose 135 H Calcium 9.8 Magnesium 1.8 Albumin 2.9 L 08/17/17 21:14 Blood Blood Culture - Final NO GROWTH IN 5 DAYS 08/17/17 20:09 Blood Blood Culture - Final NO GROWTH IN 5 DAYS 08/12/17 08/12/17 08/12/17 15:40 15:40 15:40 Creatine Kinase 40 CK-MB (CK-2) 1.62 Troponin I 0.056 NT-Pro-B Natriuret Pep 1470 H 08/12/17 08/12/17 08/13/17 21:40 21:40 03:49 Creatine Kinase 38 27 L CK-MB (CK-2) 1.52 Troponin I 0.059 NT-Pro-B Natriuret Pep 08/13/17 03:49 Creatine Kinase CK-MB (CK-2) 1.10 Troponin I 0.049 NT-Pro-B Natriuret Pep Impressions: Chest CT 08/12/17 00:00 IMPRESSION: RIGHT LOWER LOBE PNEUMONIA WITH ASSOCIATED SMALL PARAPNEUMONIC EFFUSION. ADDITIONAL CHRONIC CHANGES ABOVE. Chest X-Ray 08/22/17 06:00 IMPRESSION: Interval worsening includes moderate-large bilateral lower hemithoracic opacity -effusion. Assessment & Plan - Diagnosis (1) Dementia Qualifiers: Dementia type: unspecified type Dementia behavioral disturbance: without behavioral disturbance Qualified Code(s): F03.90 - Unspecified dementia without behavioral disturbance Is this a current diagnosis for this admission?: Yes Plan: Unchanged (2) Gastrostomy status Is this a current diagnosis for this admission?: Yes Plan: Tube working adequately at this time (3) Hypoxia Is this a current diagnosis for this admission?: Yes Plan: Labs- All tests 24 hr 08/21/17 08/22/17 06:03 05:30 ABG pH 7.48 H 7.34 L ABG pCO2 27.4 L 46.8 H ABG pO2 70.8 L 65.5 L ABG O2 Saturation 95.5 91.6 L FiO2 21% 35% (4) Pneumonia Qualifiers: Pneumonia type: due to Pseudomonas Laterality: left Lung location: lower lobe of lung Qualified Code(s): J15.1 - Pneumonia due to Pseudomonas Is this a current diagnosis for this admission?: Yes Plan: continue current antibiotic regimen (5) Eosinophilia Is this a current diagnosis for this admission?: Yes Plan: declining
--- NOTE | 2017-08-25 06:47 | PDOC PROGRESS REPORT ---
Subjective Progress Note for:: 08/24/17 Subjective:: more alert Reason For Visit: HYPOXIA, LLL PNEUMONIA Physical Exam Vital Signs: Temp Pulse Resp BP Pulse Ox 98.5 F 64 18 126/59 H 100 08/25/17 04:06 08/25/17 04:06 08/25/17 04:06 08/25/17 04:06 08/25/17 04:06 Pulse Oximeter Continuous Start: 08/12/17 15: 06 Freq: RTQ4 Status: Complete Document 08/12/17 20:[address] [facility] (Rec: 08/12/17 21:[address] [facility] [email or web address]) Pulse Oximetry Assessment Oxygen Saturation (92-100) 99 Oxygen Delivery Method Trach Collar Fraction of Inspired Oxygen (FIO2) 40 Equipment Usage Equipment in Use Continuous SpO2 Machine # N-9 Pulse Oximeter Continuous Start: 08/15/17 21: 04 Freq: RTQ4 Status: Complete Document 08/17/17 18:[address] [facility] (Rec: 08/17/17 19:[address] [facility] ECART_RESP_) Pulse Oximetry Assessment Equipment Usage Equipment Discontinued Continuous SpO2 Machine # N-13 Intake & Output 08/23/17 08/24/17 08/25/17 06:59 06:59 06:59 Intake Total 3008 183 5039 Output Total 1800 675 640 Balance -164 277 756 Weight 67.3 kg General appearance: PRESENT: disheveled, thin, well-developed. ABSENT: no acute distress, cooperative, mild distress, morbidly obese, obese, severe distress Head exam: PRESENT: atraumatic, normocephalic Eye exam: PRESENT: conjunctiva pale, EOMI. ABSENT: conjunctival injection, conjunctiva pink, nystagmus, periorbital swelling, scleral icterus Mouth exam: PRESENT: dry mucosa, neck supple, tongue midline Neck exam: PRESENT: tracheostomy. ABSENT: carotid bruit, JVD, lymphadenopathy, thyromegaly, tracheal deviation Respiratory exam: PRESENT: decreased breath sounds, prolonged expiratory phas, rales, rhonchi, symmetrical, unlabored, wheezes. ABSENT: accessory muscle use, chest wall tenderness, clear to auscultation monica, crackles, retraction, stridor , tachypnea Cardiovascular exam: PRESENT: irregular rhythm Pulses: PRESENT: normal radial pulses GI/Abdominal exam: PRESENT: normal bowel sounds, soft. ABSENT: distended, guarding, mass, organolmegaly, rebound, tenderness Gentrourinary exam: PRESENT: indwelling catheter Extremities exam: ABSENT: calf tenderness, clubbing, joint swelling Musculoskeletal exam: ABSENT: ambulatory, deformity, dislocation Neurological exam: PRESENT: awake Psychiatric exam: PRESENT: flat affect Skin exam: PRESENT: dry, warm Results Laboratory Results: 08/22/17 04:01 08/12/17 08/12/17 08/12/17 15:40 15:40 15:40 Creatine Kinase 40 CK-MB (CK-2) 1.62 Troponin I 0.056 NT-Pro-B Natriuret Pep 1470 H 08/12/17 08/12/17 08/13/17 21:40 21:40 03:49 Creatine Kinase 38 27 L CK-MB (CK-2) 1.52 Troponin I 0.059 NT-Pro-B Natriuret Pep 08/13/17 03:49 Creatine Kinase CK-MB (CK-2) 1.10 Troponin I 0.049 NT-Pro-B Natriuret Pep Impressions: Chest CT 08/12/17 00:00 IMPRESSION: RIGHT LOWER LOBE PNEUMONIA WITH ASSOCIATED SMALL PARAPNEUMONIC EFFUSION. ADDITIONAL CHRONIC CHANGES ABOVE. Chest X-Ray 08/22/17 06:00 IMPRESSION: Interval worsening includes moderate-large bilateral lower hemithoracic opacity -effusion. Chest Ultrasound 08/23/17 18:39 IMPRESSION: Small bilateral pleural effusions with right and left lower lobe partial collapse and consolidation. No thoracentesis performed today Assessment & Plan - Diagnosis (1) Dementia Qualifiers: Dementia type: unspecified type Dementia behavioral disturbance: without behavioral disturbance Qualified Code(s): F03.90 - Unspecified dementia without behavioral disturbance Is this a current diagnosis for this admission?: Yes Plan: Unchanged (2) Gastrostomy status Is this a current diagnosis for this admission?: Yes Plan: Tube working adequately at this time (3) Hypoxia Is this a current diagnosis for this admission?: Yes Plan: Labs- All tests 24 hr 08/21/17 08/22/17 06:03 05:30 ABG pH 7.48 H 7.34 L ABG pCO2 27.4 L 46.8 H ABG pO2 70.8 L 65.5 L ABG O2 Saturation 95.5 91.6 L FiO2 21% 35% (4) Pneumonia Qualifiers: Pneumonia type: due to Pseudomonas Laterality: left Lung location: lower lobe of lung Qualified Code(s): J15.1 - Pneumonia due to Pseudomonas Is this a current diagnosis for this admission?: Yes Plan: continue current antibiotic regimen (5) Eosinophilia Is this a current diagnosis for this admission?: Yes Plan: declining
[2017-08-25 06:58] LABS: ANION GAP 9 (5-19); BLOOD UREA NITROGEN 29 mg/dL (7-20); CALCIUM 10.1 mg/dL (8.4-10.2); CARBON DIOXIDE 27 mmol/L (22-30); CHLORIDE 108 mmol/L (98-107); CREATININE RESULT 0.99 mg/dL (0.52-1.25); GLUCOSE 155 mg/dL (75-110); POTASSIUM 4.9 mmol/L (3.6-5.0); SODIUM 144.1 mmol/L (137-145)
[2017-08-25] MEDS: ASCORBIC ACID 500 MG TABLET PO SCH (09:58)
[2017-08-25] MEDS: MEMANTINE HCL 10 MG TABLET PO SCH (09:58)
[2017-08-25] MEDS: ASPIRIN 81 MG TABLET, CHEWABLE PO SCH (09:58)
[2017-08-25] MEDS: PHOSPHORUS #1 250 MG TABLET PEG SCH (09:58)
[2017-08-25] MEDS: AMLODIPINE BESYLATE 10 MG TABLET PO SCH (09:58)
[2017-08-25] MEDS: LOSARTAN POTASSIUM 25 MG TABLET PO SCH (09:58)
[2017-08-25] MEDS: LEVOFLOXACIN 750 MG/D5W RTU 750 MG/150 ML RTUPB IV SCH (09:59)
[2017-08-25 12:15] VITALS: BP 136/54
== END 2017-08-25 12:20 | disposition home health service (06) | DRG 208 ==
LOC: ER 09:52 → EH 12:39 → 3N 14:15 → ICU 23:18 → 3W 08-15 20:04 → ICU 08-17 17:33 → 3S 08-23 01:45
PROVIDERS: ADMIT Internal Medicine; ATTEND Internal Medicine
PROC: 5A1945Z Respiratory Ventilation, 24-96 Consecutive Hours (ICD-10-PCS; principal; 2017-08-12)
DX: J44.0 Chronic obstructive pulmonary disease with (acute) lower respiratory infection (principal); J15.1 Pneumonia due to Pseudomonas; J96.01 Acute respiratory failure with hypoxia; J95.03 Malfunction of tracheostomy stoma; J90 Pleural effusion, not elsewhere classified; E86.0 Dehydration; Z66 Do not resuscitate; F03.90 Unspecified dementia, unspecified severity, without behavioral disturbance, psychotic disturbance, mood disturbance, and anxiety; E11.42 Type 2 diabetes mellitus with diabetic polyneuropathy; E11.65 Type 2 diabetes mellitus with hyperglycemia; Z79.4 Long term (current) use of insulin; E78.5 Hyperlipidemia, unspecified; I10 Essential (primary) hypertension; M81.0 Age-related osteoporosis without current pathological fracture; E21.0 Primary hyperparathyroidism; Z93.1 Gastrostomy status; Z79.82 Long term (current) use of aspirin; Z79.899 Other long term (current) drug therapy; Z88.8 Allergy status to other drugs, medicaments and biological substances; Z89.611 Acquired absence of right leg above knee
CPT/HCPCS: 36415; 36600; 71010; 71250; 76604; 80048; 80053; 80061; 80076; 80202; 81001; 82040; 82140; 82150; 82550; 82553; 82803; 82962; 83036; 83605; 83615; 83690; 83735; 83880; 83970; 84100; 84439; 84443; 84484; 85025; 85610; 85730; 87040; 87070; 87077; 87086; 87186; 87205; 90686; 93005; 93010; 93306; 94002; 94003; 94640; 94762; 96365; 99285; J0692; J1644; J1815; J1956; J2543; J2550; J3370; J3480; J3490; J7030; J7060; J7620; S0119

== ENCOUNTER 2017-10-13 16:35 | Emergency (ER) | payer MEDICARE, MEDICAID ==
[2017-10-13 18:16] LABS: HEMATOCRIT 36.8 % (36.0-47.0); HEMOGLOBIN 11.9 g/dL (12.0-15.5); MEAN CORPUSCULAR HEMOGLOBIN 29.1 pg (27.0-33.4); MEAN CORPUSCULAR HGB CONC 32.5 g/dL (32.0-36.0); MEAN CORPUSCULAR VOLUME 90 fl (80-97); PLATELET COUNT 342 10^3/uL (150-450); RED CELL DISTRIBUTION WIDTH 15.3 % (11.5-14.0); WHITE BLOOD COUNT 16.5 10^3/uL (4.0-10.5)
[2017-10-13 18:32] LABS: ABSOLUTE NEUTROPHILS# (MANUAL) 9.7 10^3/uL (1.7-8.2); ALANINE AMINOTRANSFERASE 50 U/L (9-52); ALBUMIN 4.2 g/dL (3.5-5.0); ALKALINE PHOSPHATASE 127 U/L (38-126); ANION GAP 9 (5-19); ASPARTATE AMINO TRANSFERASE 50 U/L (14-36); BASOPHILS % (MANUAL) 2 % (0-2); BILIRUBIN,DIRECT 0.3 mg/dL (0.0-0.4); BILIRUBIN,TOTAL 0.5 mg/dL (0.2-1.3); BLOOD UREA NITROGEN 63 mg/dL (7-20); CALCIUM 11.8 mg/dL (8.4-10.2); CARBON DIOXIDE 28 mmol/L (22-30); CHLORIDE 106 mmol/L (98-107); EOSINOPHILS % (MANUAL) 9 % (0-6); GLUCOSE 141 mg/dL (75-110); LYMPHOCYTES % (MANUAL) 20 % (13-45); MONOCYTES % (MANUAL) 6 % (3-13); POTASSIUM 4.2 mmol/L (3.6-5.0); SEGMENTED NEUTROPHILS % (MAN) 59 % (42-78); SODIUM 142.7 mmol/L (137-145); TOTAL CELLS COUNTED 100; TOTAL PROTEIN 8.7 g/dL (6.3-8.2)
[2017-10-13 18:38] LABS: ANISOCYTOSIS 1+; HYPOCHROMASIA 1+; POIKILOCYTOSIS 1+; POLYCHROMASIA SLIGHT; SPHEROCYTES SLIGHT; STOMATOCYTES 1+
[2017-10-13 18:39] LABS: PLATELET COMMENT ADEQUATE
--- NOTE | 2017-10-13 19:15 | ER Document Report ---
ED General - General Chief Complaint: Diarrhea Stated Complaint: PHILIP Time Seen by Provider: 10/13/17 18:17 Cannot obtain history due to: Dementia Notes: Patient is an 81-year-old chronically ill patient with trach and G-tube dependency who presents with family with concerns of several weeks of ongoing diarrhea. The patient is having approximately 8-10 diarrheal bowel movements daily and the frequency of this has apparently increased over the past several weeks. Studies for C. difficile colitis as well as infection have been drawn and have been negative. The family also is concerned that the patient seems to have pain with tube feeds. They discussed with her primary care doctor today who referred him to the emergency department for repeat assessment. The patient is nonverbal and unable to provide any meaningful history. Patient has not had any vomiting or fever. TRAVEL OUTSIDE OF THE [place] IN LAST 30 DAYS: No - Related Data Allergies/Adverse Reactions: alprazolam [From Xanax] Allergy (Verified 08/12/17 10:54) iodine [Iodine] Allergy (Verified 08/12/17 10:54) quetiapine fumarate [From Seroquel] Allergy (Verified 08/12/17 10:54) Past Medical History - General Information source: Relative Cannot obtain history due to: Dementia - Social History Smoking Status: Former Smoker Frequency of alcohol use: None Drug Abuse: None Lives with: Family Family History: Reviewed & Not Pertinent - Past Medical History Cardiac Medical History: Reports: Hx Congestive Heart Failure, Hx Hypercholesterolemia, Hx Hypertension, Hx Peripheral Vascular Disease Pulmonary Medical History: Reports: Hx COPD Endocrine Medical History: Reports: Hx Diabetes Mellitus Type 2 Renal/ Medical History: Denies: Hx Peritoneal Dialysis Psychiatric Medical History: Reports: Hx Dementia Denies: Hx Depression Past Surgical History: Reports: Hx Abdominal Surgery - GI tube, Hx Orthopedic Surgery - Shoulder. 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 HENT: Negative for sore throat. Eyes: Negative for visual changes. Cardiovascular: Negative for chest pain. Respiratory: Negative for shortness of breath. Gastrointestinal: Positive for diarrhea Genitourinary: Negative for dysuria. Musculoskeletal: Negative for back pain. Skin: Negative for rash. Neurological: Negative for headaches, weakness or numbness. 10 point ROS negative except as marked above and in HPI. Physical Exam - Vital signs Vitals: Temp Pulse Resp BP Pulse Ox 98.9 F 93 20 158/61 H 97 10/13/17 16:45 10/13/17 16:45 10/13/17 16:45 10/13/17 16:45 10/13/17 16:45 Interpretation: Hypertensive Notes: PHYSICAL EXAMINATION: GENERAL: Chronically ill in appearance but in no acute distress HEAD: Atraumatic, normocephalic. EYES: Pupils equal round and reactive to light, extraocular movements intact, sclera anicteric, conjunctiva are normal. ENT: nares patent, tracheostomy in place NECK: supple without lymphadenopathy LUNGS: Breath sounds present bilaterally. Rhonchorous throughout. HEART: Regular rate and rhythm without murmurs ABDOMEN: Soft, nontender, normoactive bowel sounds. No guarding, no rebound. No masses appreciated. G-tube site without evidence of infection. EXTREMITIES: No pitting or edema. No cyanosis. Right AKA NEUROLOGICAL: No focal neurological deficits. Moves all extremities spontaneously. PSYCH: Nonverbal SKIN: Warm, Dry, normal turgor, no rashes or lesions noted. Course - Re-evaluation Re-evalutation: 10/13/17 19:12 Patient presents with persistent diarrhea for over 1 month at this time without any clinical change today that prompted an emergency department visit. This is a chronically ill patient who is trach and G-tube dependent, AKA on the right, nonverbal. G-tube has been in place for 2 years without change. There is no capacity to change the tube as it has been fitted with a replacement and that does not allow balloon deflation. Moreover I do not want a risk cutting the tube to try to deflate the balloon as the patient is entirely G-tube dependent for feeds as well as for medication delivery and if this does not work we will have an emergency in terms of need for replacement. I have encouraged the family to follow closely with the GI physician who has been following this tube. Regarding patient's diarrhea frequency, patient has not stooled here in the emergency department. Her laboratories are overall unremarkable with exception of uremia but no evidence of an acute kidney injury as her creatinine is normal. No significant hyponatremia or hypokalemia. She does have a mild leukocytosis which is only increased by one-point since her most recent hospitalization. She does not appear clinically dehydrated on examination. Her vitals are within normal limits without hypotension or tachycardia. She has not had fever or vomiting at home. Her clinical history does not suggest an acute obstruction or an acute life-threatening intra-abdominal pathology. At this time will discharge with return precautions and follow-up recommendations. Verbal discharge instructions given a the bedside and opportunity for questions given. Medication warnings reviewed. Family is in agreement with this plan and has verbalized understanding of return precautions and the need for primary care follow-up in the next 24-72 hours. - Vital Signs Vital signs: Temp Pulse Resp BP Pulse Ox 99.1 F 93 22 H 141/78 H 97 10/13/17 19:39 10/13/17 16:45 10/13/17 19:39 10/13/17 19:39 10/13/17 19:39 - Laboratory Result Diagrams: 10/13/17 18:00 10/13/17 18:00 Laboratory results interpreted by me: 10/13/17 10/13/17 18:00 18:00 WBC 16.5 H Hgb 11.9 L RDW 15.3 H Eosinophils % (Manual) 9 H Abs Neuts (Manual) 9.7 H Absolute Eos (Manual) 1.5 H Abs Basophils (Manual) 0.3 H BUN 63 H Glucose 141 H Calcium 11.8 H AST 50 H Alkaline Phosphatase 127 H Total Protein 8.7 H Discharge - Discharge Clinical Impression: Feeding difficulty in adult, Chronic diarrhea, Pruritus Condition: Fair Disposition: HOME, SELF-CARE Additional Instructions: Please follow-up with your GI physician regarding the need for a G-tube placement. Continue using feeds at 50. Return if your mother develops vomiting , fever, worsening diarrhea, appears to be in significant pain, or any other symptoms that are worrisome to you. Referrals: BAKARI BECKER MD [Primary Care Provider] - Follow up in 3-5 days
[2017-10-13 23:21] VITALS: BP 134/61
== END 2017-10-13 23:00 | disposition home or self-care (01) ==
LOC: ER 16:35
DX: R63.3 Feeding difficulties (principal); L29.9 Pruritus, unspecified; R19.7 Diarrhea, unspecified; F03.90 Unspecified dementia, unspecified severity, without behavioral disturbance, psychotic disturbance, mood disturbance, and anxiety; I50.9 Heart failure, unspecified; E78.00 Pure hypercholesterolemia, unspecified; I11.0 Hypertensive heart disease with heart failure; E11.9 Type 2 diabetes mellitus without complications; J44.9 Chronic obstructive pulmonary disease, unspecified; Z93.1 Gastrostomy status; Z89.611 Acquired absence of right leg above knee; Z93.0 Tracheostomy status
CPT/HCPCS: 36415; 80053; 85025; 99285

== ENCOUNTER 2017-10-27 12:00 | Inpatient (IN) | payer MEDICARE, MEDICAID ==
--- NOTE | 2017-10-27 12:27 | ER Document Report ---
ED General - General Chief Complaint: Abdominal Pain Stated Complaint: ABDOMINAL PAIN Time Seen by Provider: 10/27/17 12:07 Notes: 82-year-old female patient to the emergency department for evaluation. Patient taken care of at home by her family members. Has a PEG as well as a trach. Been having diarrhea for several days. Getting worse. Instructed to come for "admission to the hospital" by their primary care doctor, Dr. Christensen. Low- grade fever reported at home. Possible abdominal pain. Of note patient had recent G-tube change. Family members are concerned that it could be not functioning properly. Currently not on antibiotics. No recent antibiotic use. Has had C. difficile, VRE, MRSA in the past TRAVEL OUTSIDE OF THE [place] IN LAST 30 DAYS: No - HPI Onset: Yesterday Onset/Duration: Gradual, Worse Severity: Moderate Pain Level: 2 Associated symptoms: Diarrhea, Headache - Related Data Allergies/Adverse Reactions: alprazolam [From Xanax] Allergy (Verified 08/12/17 10:54) iodine [Iodine] Allergy (Verified 08/12/17 10:54) quetiapine fumarate [From Seroquel] Allergy (Verified 08/12/17 10:54) Past Medical History - General Information source: Relative, [facility] Records - Social History Smoking Status: Never Smoker Cigarette use (# per day): No Smoking Education Provided: No Frequency of alcohol use: None Drug Abuse: None Lives with: Family Family History: Reviewed & Not Pertinent - Past Medical History Cardiac Medical History: Reports: Hx Congestive Heart Failure, Hx Hypercholesterolemia, Hx Hypertension, Hx Peripheral Vascular Disease Pulmonary Medical History: Reports: Hx COPD Endocrine Medical History: Reports: Hx Diabetes Mellitus Type 2 Renal/ Medical History: Denies: Hx Peritoneal Dialysis Psychiatric Medical History: Reports: Hx Dementia Denies: Hx Depression Past Surgical History: Reports: Hx Abdominal Surgery - GI tube, Hx Orthopedic Surgery - Shoulder. 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 denies: Vomiting Genitourinary: denies: Burning, Dysuria, Discharge Musculoskeletal: denies: Back pain, Gout, Joint pain Skin: denies: Dryness, Lesions, Rash Neurological/Psychological: denies: Paralysis, Seizure, Lost consciousness Physical Exam - Vital signs Interpretation: Normal - General General appearance: Appears well, Alert - HEENT Head: Normocephalic, Atraumatic Eyes: Normal Pupils: PERRL Nasal: Other - Large lesion noted on the left external naris Neck: Other - She has a trach in place - Respiratory Respiratory status: No respiratory distress Chest status: Nontender Breath sounds: Normal Chest palpation: Normal - Cardiovascular Rhythm: Regular Heart sounds: Normal auscultation Murmur: No - Abdominal Inspection: Normal Distension: No distension Bowel sounds: Normal Tenderness: Tender, Other - Mild diffuse tenderness. No guarding. No rebound. There is a feeding tube present in the mid to upper abdomen Organomegaly: No organomegaly - Back Back: Normal, Nontender - Extremities General upper extremity: Normal inspection, Nontender, Normal color, Normal ROM , Normal temperature General lower extremity: Other - Left lower extremity unremarkable. Right lower extremity [id number] amputation. No: Flaquita's sign - Neurological Neuro grossly intact: Yes Cognition: Normal Orientation: AAOx4 Martin Coma Scale Eye Opening: Spontaneous Martin Coma Scale Verbal: Oriented Lane Coma Scale Motor: Obeys Commands Martin Coma Scale Total: 15 Speech: Normal Motor strength normal: LUE, RUE, LLE, RLE Sensory: Normal - Psychological Associated symptoms: Normal affect, Normal mood - Skin Skin Temperature: Warm Skin Moisture: Dry Skin Color: Normal Course - Re-evaluation Re-evalutation: 10/27/17 12:37 Will order C. difficile, blood counts, blood culture, lactic acid, CT scan, influenza and reassess. 10/27/17 16:01 Laboratory 10/27/17 10/27/17 10/27/17 14:28 14:28 15:05 WBC 12.9 H RBC 3.99 Hgb 11.5 L Hct 36.2 MCV 91 MCH 28.9 MCHC 31.9 L RDW 15.4 H Plt Count 244 Seg Neutrophils % 54.9 Lymphocytes % 25.2 Monocytes % 6.8 Eosinophils % 11.9 H Basophils % 1.2 Absolute Neutrophils 7.1 Absolute Lymphocytes 3.3 Absolute Monocytes 0.9 Absolute Eosinophils 1.5 H Absolute Basophils 0.2 Sodium 146.9 H Potassium 5.1 H Chloride 107 Carbon Dioxide 32 H Anion Gap 8 BUN 59 H Creatinine 0.81 Est GFR ( Amer) > 60 Est GFR (Non-Af Amer) > 60 Glucose 146 H Calcium 11.9 H Total Bilirubin 0.4 Direct Bilirubin 0.4 Neonat Total Bilirubin Not Reportable Neonat Direct Bilirubin Not Reportable Neonat Indirect Bili Not Reportable AST 30 ALT 33 Alkaline Phosphatase 113 Total Protein 8.0 Albumin 3.9 Influenza A (Rapid) NEGATIVE Influenza B (Rapid) NEGATIVE Chest X-Ray 10/27/17 12:36 IMPRESSION: Tracheostomy tube tip in the upper trachea in good positioning. Bandlike atelectasis left lateral lung base Chronic collapse right lower lobe Abdomen/Pelvis CT 10/27/17 15:11 IMPRESSION: Chronic right lower lobe collapse No CT evidence of bowel obstruction, appendicitis or diverticulitis. Gallstones in the gallbladder without wall thickening or pericholecystic fluid We will consult with Dr. Christensen at this time for admission. In my opinion patient is to be admitted for this persistent diarrhea. Previous history of C. difficile. Slight dehydration with mild hyperkalemia at 5.1. IV established. Giving IV fluids. Will start back with tube feedings at this time as well. Awaiting callback from Dr. Christensen. - Laboratory Result Diagrams: 10/27/17 14:28 10/27/17 14:28 Laboratory results interpreted by me: 10/27/17 10/27/17 14:28 14:28 WBC 12.9 H Hgb 11.5 L MCHC 31.9 L RDW 15.4 H Eosinophils % 11.9 H Absolute Eosinophils 1.5 H Sodium 146.9 H Potassium 5.1 H Carbon Dioxide 32 H BUN 59 H Glucose 146 H Calcium 11.9 H Procedures - Additional Procedures IV insertion Time performed: 15:57 Additional Procedures: IV insertion - The right AC was prepped with alcohol. Under direct visualization with vascular probe and ultrasound a 20-gauge IV was inserted. Good blood flow. No complications. Sterile dressing applied. Discharge - Discharge Clinical Impression: Dehydration, Intractable diarrhea, Hyperkalemia Disposition: ADMITTED INPATIENT Admitting Provider: Fermin Unit Admitted: Medical Floor
--- NOTE | 2017-10-27 13:16 | RADIOLOGY REPORT (SQ) ---
EXAM DESCRIPTION: CHEST SINGLE VIEW COMPLETED DATE/TIME: 10/27/2017 1:01 pm REASON FOR STUDY: FEVER, COUGH COMPARISON: Chest films 08/12/2017, 08/21/2017, 08/22/2017 CT chest 08/12/2017, 07/09/2016 EXAM PARAMETERS: NUMBER OF VIEWS: One view. TECHNIQUE: Single frontal radiographic view of the chest acquired. RADIATION DOSE: NA LIMITATIONS: None. FINDINGS: LUNGS AND PLEURA: There is volume loss in the right hemithorax from chronic right lower lo be collapse. Minimal bandlike atelectasis at the left lung base. No fluffy alveolar infiltrates worrisome for edema or pneumonia. MEDIASTINUM AND HILAR STRUCTURES: No masses. Contour normal. HEART AND VASCULAR STRUCTURES: Heart normal in size. Normal vasculature. BONES: Osteopenic HARDWARE: Tracheostomy tube tip upper trachea OTHER: No other significant finding. IMPRESSION: Tracheostomy tube tip in the upper trachea in good positioning. Bandlike atelectasis left lateral lung base Chronic collapse right lower lobe TECHNICAL DOCUMENTATION: JOB ID: [id number]- All Rights Reserved
[2017-10-27 14:44] LABS: ABSOLUTE BASOPHILS # (AUTO) 0.2 10^3/uL (0.0-0.2); ABSOLUTE EOSINOPHILS # (AUTO) 1.5 10^3/uL (0.0-0.6); ABSOLUTE LYMPHOCYTES (AUTO) 3.3 10^3/uL (0.5-4.7); ABSOLUTE MONOCYTES (AUTO) 0.9 10^3/uL (0.1-1.4); ABSOLUTE NEUT (AUTO) 7.1 10^3/uL (1.7-8.2); BASOPHILS % (AUTO) 1.2 % (0-2); EOSINOPHILS % (AUTO) 11.9 % (0-6); HEMATOCRIT 36.2 % (36.0-47.0); HEMOGLOBIN 11.5 g/dL (12.0-15.5); LYMPHOCYTES % (AUTO) 25.2 % (13-45); MEAN CORPUSCULAR HEMOGLOBIN 28.9 pg (27.0-33.4); MEAN CORPUSCULAR HGB CONC 31.9 g/dL (32.0-36.0); MEAN CORPUSCULAR VOLUME 91 fl (80-97); MONOCYTES % (AUTO) 6.8 % (3-13); PLATELET COUNT 244 10^3/uL (150-450); RED BLOOD COUNT 3.99 10^6/uL (3.72-5.28); RED CELL DISTRIBUTION WIDTH 15.4 % (11.5-14.0); SEGMENTED NEUTROPHILS % (AUTO) 54.9 % (42-78); TOTAL CELLS COUNTED % (AUTO) 100 %; WHITE BLOOD COUNT 12.9 10^3/uL (4.0-10.5)
[2017-10-27 15:02] LABS: ALANINE AMINOTRANSFERASE 33 U/L (9-52); ALBUMIN 3.9 g/dL (3.5-5.0); ALKALINE PHOSPHATASE 113 U/L (38-126); ANION GAP 8 (5-19); ASPARTATE AMINO TRANSFERASE 30 U/L (14-36); BILIRUBIN,DIRECT 0.4 mg/dL (0.0-0.4); BILIRUBIN,TOTAL 0.4 mg/dL (0.2-1.3); BLOOD UREA NITROGEN 59 mg/dL (7-20); CALCIUM 11.9 mg/dL (8.4-10.2); CARBON DIOXIDE 32 mmol/L (22-30); CHLORIDE 107 mmol/L (98-107); GLUCOSE 146 mg/dL (75-110); POTASSIUM 5.1 mmol/L (3.6-5.0); SODIUM 146.9 mmol/L (137-145)
[2017-10-27 15:32] LABS: A TYPE INFLUENZA AG NEGATIVE (NEGATIVE); B INFLUENZA AG NEGATIVE (NEGATIVE)
--- NOTE | 2017-10-27 15:57 | RADIOLOGY REPORT (SQ) ---
EXAM DESCRIPTION: CT ABD/PELVIS ORAL ONLY COMPLETED DATE/TIME: 10/27/2017 3:40 pm REASON FOR STUDY: abdominal pain and diarrhea COMPARISON: CT chest 01/13/2016, 08/12/2017 TECHNIQUE: CT scan of the abdomen and pelvis performed without intravenous contrast. Patient drank oral contrast Images reviewed with lung, soft tissue, and bone windows. Reconstructed coronal and sagittal MPR imag es reviewed. All images stored on PACS. All CT scanners at this facility use dose modulation, iterative reconstruction, and/or weight based d osing when appropriate to reduce radiation dose to as low as reasonably achievable (ALARA). [facility]: Dose Right [facility]: CareDose [facility]: Dose Right [facility]: Teradose 4D [facility]: [employer] RADIATION DOSE: 8.3mGy. LIMITATIONS: None. FINDINGS: LOWER CHEST: Chronic volume loss and consolidation in the right lower lobe. Bandlike atel ectasis left posterior lung base. Heavy coronary artery and aortic valve calcification. NON-CONTRASTED LIVER, SPLEEN, ADRENALS: Evaluation limited by lack of IV contrast. No identified sign ificant masses. PANCREAS: No masses. No peripancreatic inflammatory changes. GALLBLADDER: Gallstones. No inflammatory changes to suggest cholecystitis. RIGHT KIDNEY AND URETER: No suspicious masses. Assessment limited by lack of IV contrast. Focal barby ical thinning in the mid and lower pole right kidney. 5 mm intrarenal nonobstructive stone right low er pole kidney axial image 41. No hydronephrosis or hydroureter. LEFT KIDNEY AND URETER: No suspicious masses. Assessment limited by lack of IV contrast. 3 mm left midpole intrarenal nonobstructive stone. No hydronephrosis or hydroureter. AORTA AND RETROPERITONEUM: Heavily calcified abdominal aorta and visceral arteries. Bilateral common iliac artery stents. On axial image 34 through 38, coronal image 43, and sagittal image 46, there i s calcification in the inferior vena cava which could be old nonocclusive calcified clot. This is at the level of the right renal vein. No dilatation of the infrarenal IVC. BOWEL AND PERITONEAL CAVITY: Patient drank oral contrast. No CT evidence of bowel obstruction. APPENDIX: Normal. PELVIS, BLADDER, AND ABDOMINAL WALL:No abnormal masses. No free fluid. Bladder normal. Normal size p ostmenopausal uterus and ovaries BONES: Osteoporotic, convex leftward lumbar curvature. Old left hip replacement. No gross acute fra cture OTHER: No other significant finding. IMPRESSION: Chronic right lower lobe collapse No CT evidence of bowel obstruction, appendicitis or diverticulitis. Gallstones in the gallbladder without wall thickening or pericholecystic fluid COMMENT: Quality ID # [id number]: Final reports with documentation of one or more dose reduction techniques (e.g., Automated exposure control, adjustment of the mA and/or kV according to patient size, use of iterative reconstruction technique) TECHNICAL DOCUMENTATION: JOB ID: [id number] [employer]- All Rights Reserved
[2017-10-27] MEDS ORDERED: NORMAL SALINE 1000 ML 1,000 ML IV ONE (15:58)
[2017-10-27] MEDS ORDERED: ONDANSETRON 4 MG TAB.RAPDIS GT PRN (20:56)
[2017-10-27] MEDS ORDERED: DEXTROSE 50%-WATER 25 GM/50 ML DISP.SYRIN IV PRN ×2 (20:58)
[2017-10-27] MEDS ORDERED: GLUCAGON,HUMAN RECOMB 1 MG INJ IM PRN (20:58)
[2017-10-27] MEDS ORDERED: DEXTROSE 40% GEL 15 GM TUBE PO PRN ×2 (20:58)
[2017-10-27] MEDS ORDERED: GABAPENTIN 250 MG GT SCH (21:00)
[2017-10-27] MEDS ORDERED: ASCORBIC ACID 500 MG TABLET GT ONE (22:00)
[2017-10-27] MEDS ORDERED: LOSARTAN POTASSIUM 25 MG TABLET GT ONE (22:00)
[2017-10-27] MEDS ORDERED: AMLODIPINE BESYLATE 10 MG TABLET GT ONE (22:00)
[2017-10-27] MEDS ORDERED: ALBUTEROL SULFATE 0.083% NEB 2.5 MG/3 ML AMPUL NEB ONE (22:00)
[2017-10-27] MEDS ORDERED: ASPIRIN 81 MG TABLET, CHEWABLE GT ONE (22:00)
[2017-10-27] MEDS ORDERED: MEMANTINE HCL 10 MG TABLET GT ONE (22:00)
[2017-10-27] MEDS: NORMAL SALINE 1000 ML 1,000 ML IV PRN (23:34)
[2017-10-28] MEDS: ALBUTEROL SULFATE 0.083% NEB 2.5 MG/3 ML AMPUL NEB SCH ×4 (01:55→19:47)
[2017-10-28] MEDS: ASCORBIC ACID 500 MG TABLET GT SCH (10:53)
[2017-10-28] MEDS: LOSARTAN POTASSIUM 25 MG TABLET GT SCH (10:53)
[2017-10-28] MEDS: MEMANTINE HCL 10 MG TABLET GT SCH (10:53)
[2017-10-28] MEDS: ASPIRIN 81 MG TABLET, CHEWABLE GT SCH (10:53)
[2017-10-28] MEDS: AMLODIPINE BESYLATE 10 MG TABLET GT SCH (10:54)
[2017-10-28 13:28] LABS: HEMATOCRIT 36.8 % (36.0-47.0); HEMOGLOBIN 11.8 g/dL (12.0-15.5); MEAN CORPUSCULAR HEMOGLOBIN 29.1 pg (27.0-33.4); MEAN CORPUSCULAR HGB CONC 32.2 g/dL (32.0-36.0); MEAN CORPUSCULAR VOLUME 90 fl (80-97); PLATELET COUNT 228 10^3/uL (150-450); RED BLOOD COUNT 4.07 10^6/uL (3.72-5.28); RED CELL DISTRIBUTION WIDTH 15.2 % (11.5-14.0); WHITE BLOOD COUNT 11.1 10^3/uL (4.0-10.5)
[2017-10-28 13:44] LABS: ANION GAP 5 (5-19); BLOOD UREA NITROGEN 50 mg/dL (7-20); CARBON DIOXIDE 30 mmol/L (22-30); CHLORIDE 110 mmol/L (98-107); GLUCOSE 177 mg/dL (75-110); POTASSIUM 4.9 mmol/L (3.6-5.0); SODIUM 145.4 mmol/L (137-145)
[2017-10-28] MEDS: NORMAL SALINE 1000 ML 1,000 ML IV PRN (15:21)
--- NOTE | 2017-10-28 20:58 | PDOC H&P ---
History of Present Illness Admission Date/PCP: 10/27/17 16:14 BAKARI BECKER MD History of Present Illness: BRIANA BRADY is a 82 year old female She is bedbound chronic PEG tube dependent she was transferred to the emergency room by family for evaluation of persistent diarrhea with associated abdominal pain in the emergency room a CAT scan of the abdomen and pelvis was done it was negative for any acute intra- abdominal pathology, it showed a chronic right lower lobe lung collapse, she has a tracheostomy tube in place. Patient has daughter stated that the stool consistency is sometimes loose like water, sometimes formed but soft, she was evaluated outpatient for this symptom there was no evidence of infection based on stool culture, it was also negative for clostridium difficile toxin. She has a history of primary hyperparathyroidism with hypercalcemia typically constipation is the symptom expected from hypercalcemia not diarrhea, stool analysis is needed to determine if the diarrhea is osmotic diarrhea or non- osmotic diarrhea ,the duration is chronic is more than 3 weeks .The emergency room physician insisted that patient needed to be admitted because she has had more than 2 ED visits for the same problem, he is concerned about dehydration Past Medical History Cardiac Medical History: Reports: Congestive Heart Failure, Hyperlipidema, Hypertension, Peripheral Vascular Disease Pulmonary Medical History: Reports: Chronic Obstructive Pulmonary Disease (COPD) Endocrine Medical History: Reports: Diabetes Mellitus Type 2 Psychiatric Medical History: Reports: Dementia Denies: Depression Past Surgical History Past Surgical History: Reports: Orthopedic Surgery - Shoulder. 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 , Other - tracheostomy Social History Lives with: Family Smoking Status: Never Smoker Frequency of Alcohol Use: None Hx Recreational Drug Use: No Drugs: None Hx Prescription Drug Abuse: No Family History Family History: Reviewed & Not Pertinent Parental Family History Reviewed: Yes Children Family History Reviewed: Yes Sibling(s) Family History Reviewed.: Yes Medication/Allergy Home Medications: Albuterol Sulfate [Ventolin 0.083% Neb 2.5 mg/3 ml Ampul] 1 vial NEB RTQ6 Amlodipine Besylate [Norvasc 10 mg Tablet] 10 mg GT DAILY 10/27/17 Ascorbic Acid [Vitamin C 500 mg Tablet] 500 mg GT DAILY 10/27/17 Aspirin [Aspirin 81 mg Chewable Tablet] 81 mg GT DAILY 10/27/17 Gabapentin [Neurontin] 250 mg GT QPM 10/27/17 Insulin Aspart [Novolog Flexpen] 0 unit SUBCUT .SLD SCALE 10/27/17 Losartan Potassium [Cozaar 25 mg Tablet] 25 mg GT DAILY 10/27/17 Memantine HCl [Namenda 10 mg Tablet] 10 mg GT DAILY 10/27/17 Ondansetron [Zofran Odt 4 mg Tablet] 4 mg GT Q8HP PRN 10/27/17 Allergies/Adverse Reactions: alprazolam [From Xanax] Allergy (Verified 08/12/17 10:54) iodine [Iodine] Allergy (Verified 08/12/17 10:54) quetiapine fumarate [From Seroquel] Allergy (Verified 08/12/17 10:54) Review of Systems Eyes: ABSENT: visual disturbances Ears: ABSENT: hearing changes Cardiovascular: ABSENT: as per HPI, chest pain, dyspnea on exertion, edema, orthropnea, palpitations, other Respiratory: ABSENT: cough, hemoptysis Gastrointestinal: PRESENT: diarrhea Genitourinary: ABSENT: dysuria, hematuria Musculoskeletal: ABSENT: joint swelling Integumentary: ABSENT: rash, wounds Neurological: ABSENT: abnormal gait, abnormal speech, confusion, dizziness, focal weakness, syncope Psychiatric: ABSENT: anxiety, depression, homidical ideation, suicidal ideation Endocrine: ABSENT: cold intolerance, heat intolerance, menstrual abnormalities, polydipsia, polyuria Hematologic/Lymphatic: ABSENT: easy bleeding, easy bruising, lymphadenopathy Physical Exam Vital Signs: Temp Pulse Resp BP Pulse Ox 97.5 F 84 22 H 125/92 H 92 10/28/17 15:21 10/28/17 15:21 10/28/17 15:21 10/28/17 15:21 10/28/17 15:21 Intake & Output 10/27/17 10/28/17 10/29/17 06:59 06:59 06:59 Intake Total 1170 1643 Output Total 0 Balance 1170 1643 Weight 62 kg General appearance: PRESENT: no acute distress, well-developed, well-nourished Head exam: PRESENT: atraumatic, normocephalic Eye exam: PRESENT: conjunctiva pink, EOMI, PERRLA Ear exam: PRESENT: normal external ear exam Mouth exam: PRESENT: moist, tongue midline Neck exam: PRESENT: full ROM, tracheostomy Respiratory exam: PRESENT: clear to auscultation monica Cardiovascular exam: PRESENT: RRR, +S1, +S2 Pulses: PRESENT: normal dorsalis pedis pul, +2 pedal pulses bilateral Vascular exam: PRESENT: normal capillary refill GI/Abdominal exam: PRESENT: normal bowel sounds, soft, other - PEG tube Rectal exam: PRESENT: deferred Extremities exam: PRESENT: left BKA Neurological exam: PRESENT: alert, CN II-XII grossly intact. ABSENT: motor sensory deficit Psychiatric exam: PRESENT: appropriate affect, normal mood Results Laboratory Results: 10/28/17 13:03 10/28/17 13:03 10/28/17 10/28/17 10/28/17 13:03 13:03 18:35 WBC 11.1 H RBC 4.07 Hgb 11.8 L Hct 36.8 MCV 90 MCH 29.1 MCHC 32.2 RDW 15.2 H Plt Count 228 Sodium 145.4 H Potassium 4.9 Chloride 110 H Carbon Dioxide 30 Anion Gap 5 BUN 50 H Creatinine 0.73 Est GFR ( Amer) > 60 Est GFR (Non-Af Amer) > 60 Glucose 177 H Calcium 11.0 H PTH Intact 120.9 H Impressions: Chest X-Ray 10/27/17 12:36 IMPRESSION: Tracheostomy tube tip in the upper trachea in good positioning. Bandlike atelectasis left lateral lung base Chronic collapse right lower lobe Abdomen/Pelvis CT 10/27/17 15:11 IMPRESSION: Chronic right lower lobe collapse No CT evidence of bowel obstruction, appendicitis or diverticulitis. Gallstones in the gallbladder without wall thickening or pericholecystic fluid Assessment & Plan - Diagnosis (1) Hypercalcemia Is this a current diagnosis for this admission?: Yes Plan: Typically constipation is the expected GI symptom and hypercalcemia rather than diarrhea, she be treated with IV fluid (2) Primary hyperparathyroidism Is this a current diagnosis for this admission?: Yes Plan: She is not a candidate for surgery, she probably have osteoporosis but she is not ambulatory (3) Diarrhea Qualifiers: Diarrhea type: unspecified type Qualified Code(s): R19.7 - Diarrhea, unspecified Is this a current diagnosis for this admission?: Yes (4) Dehydration Is this a current diagnosis for this admission?: Yes
--- NOTE | 2017-10-28 21:01 | PDOC PROGRESS REPORT ---
Subjective Progress Note for:: 10/28/17 Subjective:: Patient was admitted yesterday for the management of hypercalcemia, dehydration , diarrhea Reason For Visit: DEHYDRATION/INTRACTABLE DIARRHEA/HYPERKALEMIA Physical Exam Vital Signs: Temp Pulse Resp BP Pulse Ox 97.5 F 84 22 H 125/92 H 92 10/28/17 15:21 10/28/17 15:21 10/28/17 15:21 10/28/17 15:21 10/28/17 15:21 Intake & Output 10/27/17 10/28/17 10/29/17 06:59 06:59 06:59 Intake Total 1170 1643 Output Total 0 Balance 1170 1643 Weight 62 kg General appearance: PRESENT: no acute distress Eye exam: PRESENT: PERRLA Respiratory exam: PRESENT: clear to auscultation monica Cardiovascular exam: PRESENT: +S1, +S2 GI/Abdominal exam: PRESENT: soft Neurological exam: PRESENT: alert Results Laboratory Results: 10/28/17 13:03 10/28/17 13:03 10/28/17 10/28/17 10/28/17 13:03 13:03 18:35 WBC 11.1 H RBC 4.07 Hgb 11.8 L Hct 36.8 MCV 90 MCH 29.1 MCHC 32.2 RDW 15.2 H Plt Count 228 Sodium 145.4 H Potassium 4.9 Chloride 110 H Carbon Dioxide 30 Anion Gap 5 BUN 50 H Creatinine 0.73 Est GFR ( Amer) > 60 Est GFR (Non-Af Amer) > 60 Glucose 177 H Calcium 11.0 H PTH Intact 120.9 H Impressions: Chest X-Ray 10/27/17 12:36 IMPRESSION: Tracheostomy tube tip in the upper trachea in good positioning. Bandlike atelectasis left lateral lung base Chronic collapse right lower lobe Abdomen/Pelvis CT 10/27/17 15:11 IMPRESSION: Chronic right lower lobe collapse No CT evidence of bowel obstruction, appendicitis or diverticulitis. Gallstones in the gallbladder without wall thickening or pericholecystic fluid Assessment & Plan - Diagnosis (1) Hypercalcemia Is this a current diagnosis for this admission?: Yes (2) Primary hyperparathyroidism Is this a current diagnosis for this admission?: Yes (3) Diarrhea Qualifiers: Diarrhea type: unspecified type Qualified Code(s): R19.7 - Diarrhea, unspecified Is this a current diagnosis for this admission?: Yes (4) Dehydration Is this a current diagnosis for this admission?: Yes
[2017-10-29] MEDS: ALBUTEROL SULFATE 0.083% NEB 2.5 MG/3 ML AMPUL NEB SCH ×4 (02:03→20:59)
[2017-10-29 03:39] LABS: AMORPHOUS SEDIMENT,URINE TRACE /HPF; APPEARANCE,URINE CLEAR; BILIRUBIN,URINE NEGATIVE (NEGATIVE); COLOR,URINE YELLOW; GLUCOSE, URINE 50 mg/dL (NEGATIVE); KETONES,URINE NEGATIVE (NEGATIVE); LEUKOCYTE ESTERASE,URINE MODERATE (NEGATIVE); NITRITE,URINE NEGATIVE (NEGATIVE); PROTEIN,URINE NEGATIVE (NEGATIVE); URINE SPECIFIC GRAVITY 1.009; UROBILINOGEN,URINE NEGATIVE mg/dL (<2.0)
[2017-10-29] MEDS: INSULIN LISPRO 100 UNIT/ML 3 ML VIAL SUBCUT PRN ×2 (06:32→18:15)
--- NOTE | 2017-10-29 10:30 | PDOC PROGRESS REPORT ---
Subjective Progress Note for:: 10/29/17 Subjective:: Patient was admitted for the diarrhea and hypercalcemia and dehydration While patient is here no sign of any diarehia Patient's denied any chest pain According to the daughter and the bedside was the patient in the home health nurse changes in patients getting the 55 mL tube feeding and started the more diarrhea Is currently in a 50 in the hospital and 30 mL flush Daughter is wondering if the patient's remain stable she wants to take her back home Reason For Visit: DEHYDRATION/INTRACTABLE DIARRHEA/HYPERKALEMIA Physical Exam Vital Signs: Temp Pulse Resp BP Pulse Ox 97.8 F 70 16 150/61 H 97 10/29/17 07:42 10/29/17 07:53 10/29/17 07:53 10/29/17 07:42 10/29/17 07:53 Intake & Output 10/28/17 10/29/17 10/30/17 06:59 06:59 06:59 Intake Total 1170 3041 Output Total 0 400 Balance 1170 2641 Weight 62 kg 65 kg Physical Exam: Is currently on a trach collar General appearance: PRESENT: no acute distress Eye exam: PRESENT: PERRLA Mouth exam: PRESENT: neck supple Respiratory exam: PRESENT: clear to auscultation monica Cardiovascular exam: PRESENT: +S1, +S2 GI/Abdominal exam: PRESENT: normal bowel sounds, soft Additonal comments: PEG tube is intact Neurological exam: PRESENT: alert, awake Skin exam: PRESENT: dry Results Laboratory Results: 10/28/17 13:03 10/28/17 13:03 10/28/17 10/28/17 10/28/17 13:03 13:03 18:35 WBC 11.1 H RBC 4.07 Hgb 11.8 L Hct 36.8 MCV 90 MCH 29.1 MCHC 32.2 RDW 15.2 H Plt Count 228 Sodium 145.4 H Potassium 4.9 Chloride 110 H Carbon Dioxide 30 Anion Gap 5 BUN 50 H Creatinine 0.73 Est GFR ( Amer) > 60 Est GFR (Non-Af Amer) > 60 Glucose 177 H Calcium 11.0 H PTH Intact 120.9 H Urine Color Urine Appearance Urine pH Ur Specific [place] Urine Protein Urine Glucose (UA) Urine Ketones Urine Blood Urine Nitrite Ur Leukocyte Esterase Urine WBC (Auto) Urine RBC (Auto) 10/29/17 02:30 WBC RBC Hgb Hct MCV MCH MCHC RDW Plt Count Sodium Potassium Chloride Carbon Dioxide Anion Gap BUN Creatinine Est GFR ( Amer) Est GFR (Non-Af Amer) Glucose Calcium PTH Intact Urine Color YELLOW Urine Appearance CLEAR Urine pH 9.0 Ur Specific [place] 1.009 Urine Protein NEGATIVE Urine Glucose (UA) 50 H Urine Ketones NEGATIVE Urine Blood NEGATIVE Urine Nitrite NEGATIVE Ur Leukocyte Esterase MODERATE H Urine WBC (Auto) 22 Urine RBC (Auto) 3 Impressions: Chest X-Ray 10/27/17 12:36 IMPRESSION: Tracheostomy tube tip in the upper trachea in good positioning. Bandlike atelectasis left lateral lung base Chronic collapse right lower lobe Abdomen/Pelvis CT 10/27/17 15:11 IMPRESSION: Chronic right lower lobe collapse No CT evidence of bowel obstruction, appendicitis or diverticulitis. Gallstones in the gallbladder without wall thickening or pericholecystic fluid Assessment & Plan - Diagnosis (1) Dehydration Is this a current diagnosis for this admission?: Yes Plan: Currently all resolving IV fluid (2) Diarrhea Qualifiers: Diarrhea type: unspecified type Qualified Code(s): R19.7 - Diarrhea, unspecified Is this a current diagnosis for this admission?: Yes Plan: Most likely a tube feeding related currently I do not see any diarrhea will decrease the dose of the tube feeding (3) Hypercalcemia Is this a current diagnosis for this admission?: Yes Plan: Continues IV fluid (4) Dementia Qualifiers: Dementia type: unspecified type Dementia behavioral disturbance: without behavioral disturbance Qualified Code(s): F03.90 - Unspecified dementia without behavioral disturbance Is this a current diagnosis for this admission?: Yes (5) Tracheostomy dependence Is this a current diagnosis for this admission?: Yes - Time Time Spent with patient: 15-24 minutes Medications reviewed and adjusted accordingly: Yes Anticipated discharge: Home Within: Other - Inpatient Certification Medical Necessity: Need Close Monitoring Due to Risk of Patient Decompensation, Need For IV Fluids Post Hospital Care: D/C Motion Picture Narrator Documentation - Plan Summary Plan Summary: Discussed with the daughter on bedside if the patient's remained stable tomorrow the calcium is coming down hopefully will discharge it
[2017-10-29] MEDS: ASPIRIN 81 MG TABLET, CHEWABLE GT SCH (11:13)
[2017-10-29] MEDS: LOSARTAN POTASSIUM 25 MG TABLET GT SCH (11:13)
[2017-10-29] MEDS: MEMANTINE HCL 10 MG TABLET GT SCH (11:14)
[2017-10-29] MEDS: ASCORBIC ACID 500 MG TABLET GT SCH (11:14)
[2017-10-29] MEDS: AMLODIPINE BESYLATE 10 MG TABLET GT SCH (11:14)
[2017-10-29] MEDS: NORMAL SALINE 1000 ML 1,000 ML IV PRN (11:15)
[2017-10-29] MEDS: ACETAMINOPHEN SOLN 325 MG/10.15 ML UDCUP PEG PRN (23:50)
[2017-10-29] MEDS: POLYETHYLENE GLYCOL 3350 POWDER 17 GM/1 PACKET PEG PRN (23:51)
[2017-10-30] MEDS: ALBUTEROL SULFATE 0.083% NEB 2.5 MG/3 ML AMPUL NEB SCH ×4 (02:04→19:59)
[2017-10-30 05:57] LABS: ABSOLUTE BASOPHILS # (AUTO) 0.2 10^3/uL (0.0-0.2); ABSOLUTE EOSINOPHILS # (AUTO) 0.4 10^3/uL (0.0-0.6); ABSOLUTE LYMPHOCYTES (AUTO) 3.2 10^3/uL (0.5-4.7); ABSOLUTE MONOCYTES (AUTO) 0.8 10^3/uL (0.1-1.4); ABSOLUTE NEUT (AUTO) 7.2 10^3/uL (1.7-8.2); BASOPHILS % (AUTO) 1.3 % (0-2); EOSINOPHILS % (AUTO) 3.2 % (0-6); HEMATOCRIT 33.2 % (36.0-47.0); HEMOGLOBIN 10.7 g/dL (12.0-15.5); LYMPHOCYTES % (AUTO) 27.4 % (13-45); MEAN CORPUSCULAR HGB CONC 32.2 g/dL (32.0-36.0); MEAN CORPUSCULAR VOLUME 90 fl (80-97); MONOCYTES % (AUTO) 6.9 % (3-13); PLATELET COUNT 223 10^3/uL (150-450); RED BLOOD COUNT 3.68 10^6/uL (3.72-5.28); RED CELL DISTRIBUTION WIDTH 15.5 % (11.5-14.0); SEGMENTED NEUTROPHILS % (AUTO) 61.2 % (42-78); TOTAL CELLS COUNTED % (AUTO) 100 %; WHITE BLOOD COUNT 11.8 10^3/uL (4.0-10.5)
[2017-10-30 06:19] LABS: ANION GAP 6 (5-19); BLOOD UREA NITROGEN 37 mg/dL (7-20); CALCIUM 10.6 mg/dL (8.4-10.2); CARBON DIOXIDE 26 mmol/L (22-30); CHLORIDE 113 mmol/L (98-107); GLUCOSE 135 mg/dL (75-110); POTASSIUM 4.1 mmol/L (3.6-5.0); SODIUM 145.4 mmol/L (137-145)
[2017-10-30] MEDS ORDERED: ZINC OXIDE 20% OINTMENT 28.35 GM TP PRN (09:57)
[2017-10-30] MEDS: LOSARTAN POTASSIUM 25 MG TABLET GT SCH (10:40)
[2017-10-30] MEDS: MEMANTINE HCL 10 MG TABLET GT SCH (10:41)
[2017-10-30] MEDS: ASPIRIN 81 MG TABLET, CHEWABLE GT SCH (10:41)
[2017-10-30] MEDS: ASCORBIC ACID 500 MG TABLET GT SCH (10:41)
[2017-10-30] MEDS: NYSTATIN CREAM 15 GM TP SCH ×2 (10:41→18:14)
[2017-10-30] MEDS: AMLODIPINE BESYLATE 10 MG TABLET GT SCH (10:41)
--- NOTE | 2017-10-30 11:39 | PDOC PROGRESS REPORT ---
Subjective Progress Note for:: 10/30/17 Subjective:: Patient is currently doing fair still does not have any bowel movements Patient calcium is coming down No other events happened Reason For Visit: DEHYDRATION/INTRACTABLE DIARRHEA/HYPERKALEMIA Physical Exam Vital Signs: Temp Pulse Resp BP Pulse Ox 97.4 F 72 15 131/70 H 100 10/30/17 04:34 10/30/17 08:29 10/30/17 08:29 10/30/17 08:29 10/30/17 08:29 Intake & Output 10/29/17 10/30/17 10/31/17 06:59 06:59 06:59 Intake Total 3041 1759 Output Total 400 Balance 2641 1759 Weight 65 kg 66.3 kg Physical Exam: Tracheostomy site is intact General appearance: PRESENT: no acute distress Eye exam: PRESENT: PERRLA Mouth exam: PRESENT: neck supple Respiratory exam: PRESENT: clear to auscultation monica GI/Abdominal exam: PRESENT: normal bowel sounds, soft Extremities exam: ABSENT: pedal edema Neurological exam: PRESENT: alert, awake, oriented to person Skin exam: PRESENT: dry Results Laboratory Results: 10/30/17 05:18 10/30/17 05:18 10/30/17 10/30/17 05:18 05:18 WBC 11.8 H RBC 3.68 L Hgb 10.7 L Hct 33.2 L MCV 90 MCH 29.0 MCHC 32.2 RDW 15.5 H Plt Count 223 Seg Neutrophils % 61.2 Lymphocytes % 27.4 Monocytes % 6.9 Eosinophils % 3.2 Basophils % 1.3 Absolute Neutrophils 7.2 Absolute Lymphocytes 3.2 Absolute Monocytes 0.8 Absolute Eosinophils 0.4 Absolute Basophils 0.2 Sodium 145.4 H Potassium 4.1 Chloride 113 H Carbon Dioxide 26 Anion Gap 6 BUN 37 H Creatinine 0.74 Est GFR ( Amer) > 60 Est GFR (Non-Af Amer) > 60 Glucose 135 H Calcium 10.6 H Impressions: Chest X-Ray 10/27/17 12:36 IMPRESSION: Tracheostomy tube tip in the upper trachea in good positioning. Bandlike atelectasis left lateral lung base Chronic collapse right lower lobe Abdomen/Pelvis CT 10/27/17 15:11 IMPRESSION: Chronic right lower lobe collapse No CT evidence of bowel obstruction, appendicitis or diverticulitis. Gallstones in the gallbladder without wall thickening or pericholecystic fluid Assessment & Plan - Diagnosis (1) Dehydration Is this a current diagnosis for this admission?: Yes Plan: Currently all resolving IV fluid (2) Diarrhea Qualifiers: Diarrhea type: unspecified type Qualified Code(s): R19.7 - Diarrhea, unspecified Is this a current diagnosis for this admission?: Yes Plan: Actually I do not see any diarrhea since the patient was it here more constipation will give him MiraLAX (3) Hypercalcemia Is this a current diagnosis for this admission?: Yes Plan: Continues IV fluid (4) Dementia Qualifiers: Dementia type: unspecified type Dementia behavioral disturbance: without behavioral disturbance Qualified Code(s): F03.90 - Unspecified dementia without behavioral disturbance Is this a current diagnosis for this admission?: Yes (5) Tracheostomy dependence Is this a current diagnosis for this admission?: Yes - Time Time Spent with patient: 15-24 minutes Medications reviewed and adjusted accordingly: Yes Anticipated discharge: Other Within: Other - Inpatient Certification Medical Necessity: Need Close Monitoring Due to Risk of Patient Decompensation Post Hospital Care: D/C Waters[employer] Program Manager Documentation - Plan Summary Plan Summary: Due to nursing some patient have a more vaginal yeast infections will give her Diflucan
[2017-10-30] MEDS ORDERED: FLUCONAZOLE 100 MG TABLET PO ONE (13:00)
[2017-10-30] MEDS: INSULIN LISPRO 100 UNIT/ML 3 ML VIAL SUBCUT PRN ×2 (14:51→18:14)
[2017-10-30] MEDS: NORMAL SALINE 1000 ML 1,000 ML IV PRN (16:30)
[2017-10-30] MEDS: ACETAMINOPHEN SOLN 325 MG/10.15 ML UDCUP PEG PRN (22:32)
[2017-10-30] MEDS: POLYETHYLENE GLYCOL 3350 POWDER 17 GM/1 PACKET PEG PRN (22:32)
[2017-10-31] MEDS: INSULIN LISPRO 100 UNIT/ML 3 ML VIAL SUBCUT PRN (00:32)
[2017-10-31] MEDS: ALBUTEROL SULFATE 0.083% NEB 2.5 MG/3 ML AMPUL NEB SCH ×3 (01:14→13:56)
[2017-10-31 07:23] LABS: ANION GAP 9 (5-19); BLOOD UREA NITROGEN 34 mg/dL (7-20); CALCIUM 10.6 mg/dL (8.4-10.2); CARBON DIOXIDE 20 mmol/L (22-30); CHLORIDE 112 mmol/L (98-107); GLUCOSE 118 mg/dL (75-110); POTASSIUM 4.6 mmol/L (3.6-5.0); SODIUM 140.8 mmol/L (137-145)
[2017-10-31] MEDS ORDERED: FLUCONAZOLE 100 MG TABLET PO SCH (10:00)
[2017-10-31 10:02] LABS: HEMATOCRIT 31.8 % (36.0-47.0); HEMOGLOBIN 10.3 g/dL (12.0-15.5); MEAN CORPUSCULAR HEMOGLOBIN 29.3 pg (27.0-33.4); MEAN CORPUSCULAR HGB CONC 32.4 g/dL (32.0-36.0); MEAN CORPUSCULAR VOLUME 91 fl (80-97); PLATELET COUNT 238 10^3/uL (150-450); RED BLOOD COUNT 3.51 10^6/uL (3.72-5.28); RED CELL DISTRIBUTION WIDTH 15.2 % (11.5-14.0); WHITE BLOOD COUNT 12.2 10^3/uL (4.0-10.5)
[2017-10-31 10:22] LABS: ABSOLUTE LYMPHOCYTES# (MANUAL) 4.1 10^3/uL (0.5-4.7); ABSOLUTE MONOCYTES # (MANUAL) 0.6 10^3/uL (0.1-1.4); ABSOLUTE NEUTROPHILS# (MANUAL) 6.3 10^3/uL (1.7-8.2); BASOPHILS % (MANUAL) 0 % (0-2); EOSINOPHILS % (MANUAL) 9 % (0-6); LYMPHOCYTES % (MANUAL) 33 % (13-45); MONOCYTES % (MANUAL) 5 % (3-13); SEGMENTED NEUTROPHILS % (MAN) 52 % (42-78); TOTAL CELLS COUNTED 100
[2017-10-31 10:23] LABS: ANISOCYTOSIS SLIGHT; PLATELET COMMENT ADEQUATE; PLATELET LARGE PRESENT; POLYCHROMASIA SLIGHT
[2017-10-31] MEDS: ASPIRIN 81 MG TABLET, CHEWABLE GT SCH (11:23)
[2017-10-31] MEDS: AMLODIPINE BESYLATE 10 MG TABLET GT SCH (11:24)
[2017-10-31] MEDS: LOSARTAN POTASSIUM 25 MG TABLET GT SCH (11:24)
[2017-10-31] MEDS: ASCORBIC ACID 500 MG TABLET GT SCH (11:25)
[2017-10-31] MEDS: NYSTATIN CREAM 15 GM TP SCH (11:25)
[2017-10-31] MEDS: MEMANTINE HCL 10 MG TABLET GT SCH (11:25)
[2017-10-31] MEDS: NORMAL SALINE 1000 ML 1,000 ML IV PRN (12:56)
[2017-10-31 14:10] VITALS: BP 132/84
--- NOTE | 2017-10-31 21:45 | PDOC DISCHARGE SUMMARY ---
General - Admit/Disc Date/PCP Admission Date/Primary Care Provider: 10/27/17 16:14 BAKARI BECKER MD Discharge Date: 10/31/17 - Discharge Diagnosis (1) Hypercalcemia Is this a current diagnosis for this admission?: Yes (2) Primary hyperparathyroidism Is this a current diagnosis for this admission?: Yes (3) Diarrhea Is this a current diagnosis for this admission?: Yes (4) Dehydration Is this a current diagnosis for this admission?: Yes - Additional Information Discharge Diet: Tube Feeding (Comments) Home Medications: RX: Albuterol Sulfate [Ventolin 0.083% Neb 2.5 mg/3 mL Ampul] 1 vial NEB RTQ6 RX: Amlodipine Besylate [Norvasc 10 mg Tablet] 10 mg GT DAILY 10/27/17 RX: Ascorbic Acid [Vitamin C 500 mg Tablet] 500 mg GT DAILY 10/27/17 RX: Aspirin [Aspirin 81 mg Chewable Tablet] 81 mg GT DAILY 10/27/17 RX: Gabapentin [Neurontin] 250 mg GT QPM 10/27/17 RX: Insulin Aspart [Novolog Flexpen] 0 unit SUBCUT .SLD SCALE 10/27/17 RX: Losartan Potassium [Cozaar 25 mg Tablet] 25 mg GT DAILY 10/27/17 RX: Memantine HCl [Namenda 10 mg Tablet] 10 mg GT DAILY 10/27/17 RX: Ondansetron [Zofran Odt 4 mg Tablet] 4 mg GT Q8HP PRN 10/27/17 History of Present Illness History of Present Illness: BRIANA BRADY is a 82 year old female She is bedbound chronic PEG tube dependent she was transferred to the emergency room by family for evaluation of persistent diarrhea with associated abdominal pain in the emergency room a CAT scan of the abdomen and pelvis was done it was negative for any acute intra- abdominal pathology, it showed a chronic right lower lobe lung collapse, she has a tracheostomy tube in place. Patient has daughter stated that the stool consistency is sometimes loose like water, sometimes formed but soft, she was evaluated outpatient for this symptom there was no evidence of infection based on stool culture, it was also negative for clostridium difficile toxin. She has a history of primary hyperparathyroidism with hypercalcemia typically constipation is the symptom expected from hypercalcemia not diarrhea, stool analysis is needed to determine if the diarrhea is osmotic diarrhea or non- osmotic diarrhea ,the duration is chronic is more than 3 weeks .The emergency room physician insisted that patient needed to be admitted because she has had more than 2 ED visits for the same problem, he is concerned about dehydration Hospital Course Hospital Course: She will be chronic debilitation admitted for the management of diarrhea in the setting of hypercalcemia, treated with IV fluid there was no witnessed episode of diarrhea in the hospital setting. Physical Exam Vital Signs: Temp Pulse Resp BP Pulse Ox 97.9 F 94 16 132/84 H 96 10/31/17 14:07 10/31/17 14:07 10/31/17 14:07 10/31/17 14:07 10/31/17 14:07 Pulse Oximeter Continuous Start: 10/30/17 12: 56 Freq: RTQ4 Status: Discharge Document 10/31/17 12:00 LDA (Rec: 10/31/17 12:40 LDA [id number]) Pulse Oximetry Assessment Oxygen Saturation (92-100) 96 Oxygen Delivery Method Trach Collar Fraction of Inspired Oxygen (FIO2) 30 Equipment Usage Equipment in Use Continuous SpO2 Machine # 0 Intake & Output 10/30/17 10/31/17 11/01/17 06:59 06:59 06:59 Intake Total 1759 3986 0 Balance 1759 3986 0 Weight 66.3 kg General appearance: PRESENT: no acute distress Eye exam: PRESENT: PERRLA Respiratory exam: PRESENT: clear to auscultation monica Cardiovascular exam: PRESENT: +S1, +S2 GI/Abdominal exam: PRESENT: soft Results Laboratory Results: 10/31/17 05:28 10/31/17 05:28 10/31/17 10/31/17 05:28 05:28 WBC 12.2 H RBC 3.51 L Hgb 10.3 L Hct 31.8 L MCV 91 MCH 29.3 MCHC 32.4 RDW 15.2 H Plt Count 238 Seg Neutrophils % Not Reportable Lymphocytes % Not Reportable Monocytes % Not Reportable Eosinophils % Not Reportable Basophils % Not Reportable Absolute Neutrophils Not Reportable Absolute Lymphocytes Not Reportable Absolute Monocytes Not Reportable Absolute Eosinophils Not Reportable Absolute Basophils Not Reportable Sodium 140.8 Potassium 4.6 Chloride 112 H Carbon Dioxide 20 L Anion Gap 9 BUN 34 H Creatinine 0.71 Est GFR ( Amer) > 60 Est GFR (Non-Af Amer) > 60 Glucose 118 H Calcium 10.6 H 10/29/17 02:30 Catheterized Urine Urine Culture - Final NO GROWTH 2 DAYS Impressions: Chest X-Ray 10/27/17 12:36 IMPRESSION: Tracheostomy tube tip in the upper trachea in good positioning. Bandlike atelectasis left lateral lung base Chronic collapse right lower lobe Abdomen/Pelvis CT 10/27/17 15:11 IMPRESSION: Chronic right lower lobe collapse No CT evidence of bowel obstruction, appendicitis or diverticulitis. Gallstones in the gallbladder without wall thickening or pericholecystic fluid
== END 2017-10-31 14:58 | disposition home or self-care (01) | DRG 645 ==
LOC: ER 12:00 → EH 16:14 → 3W 21:22
PROVIDERS: ADMIT Internal Medicine; ATTEND Internal Medicine
PROC: 5A1945Z Respiratory Ventilation, 24-96 Consecutive Hours (ICD-10-PCS; principal; 2017-10-27)
PROC: 3E0F73Z Introduction of Anti-inflammatory into Respiratory Tract, Via Natural or Artificial Opening (ICD-10-PCS; 2017-10-27)
DX: E21.0 Primary hyperparathyroidism (principal); R19.7 Diarrhea, unspecified; E86.0 Dehydration; I10 Essential (primary) hypertension; F03.90 Unspecified dementia, unspecified severity, without behavioral disturbance, psychotic disturbance, mood disturbance, and anxiety; E87.5 Hyperkalemia; E78.00 Pure hypercholesterolemia, unspecified; E11.51 Type 2 diabetes mellitus with diabetic peripheral angiopathy without gangrene; Z79.4 Long term (current) use of insulin; Z79.82 Long term (current) use of aspirin; Z74.01 Bed confinement status; Z93.1 Gastrostomy status; Z93.0 Tracheostomy status; Z89.611 Acquired absence of right leg above knee; Z88.8 Allergy status to other drugs, medicaments and biological substances; Z86.14 Personal history of Methicillin resistant Staphylococcus aureus infection
CPT/HCPCS: 36415; 71045; 74176; 80048; 80053; 81001; 82962; 83970; 85025; 85027; 87040; 87086; 87804; 94640; 94762; 99285; J1815; J3490; J7030; S0119

== ENCOUNTER 2017-11-07 03:16 | Inpatient (IN) | payer MEDICARE, MEDICAID ==
[2017-11-07] MEDS ORDERED: NORMAL SALINE 1000 ML 1,000 ML IV ONE (03:51)
[2017-11-07 04:16] LABS: ABSOLUTE BASOPHILS # (AUTO) 0.1 10^3/uL (0.0-0.2); ABSOLUTE EOSINOPHILS # (AUTO) 1.1 10^3/uL (0.0-0.6); ABSOLUTE LYMPHOCYTES (AUTO) 3.4 10^3/uL (0.5-4.7); ABSOLUTE MONOCYTES (AUTO) 1.2 10^3/uL (0.1-1.4); ABSOLUTE NEUT (AUTO) 4.9 10^3/uL (1.7-8.2); BASOPHILS % (AUTO) 0.6 % (0-2); EOSINOPHILS % (AUTO) 9.9 % (0-6); HEMATOCRIT 34.7 % (36.0-47.0); HEMOGLOBIN 11.1 g/dL (12.0-15.5); MEAN CORPUSCULAR HEMOGLOBIN 29.3 pg (27.0-33.4); MEAN CORPUSCULAR HGB CONC 32.1 g/dL (32.0-36.0); MEAN CORPUSCULAR VOLUME 91 fl (80-97); MONOCYTES % (AUTO) 11.7 % (3-13); PLATELET COUNT 414 10^3/uL (150-450); RED CELL DISTRIBUTION WIDTH 15.8 % (11.5-14.0); SEGMENTED NEUTROPHILS % (AUTO) 45.8 % (42-78); TOTAL CELLS COUNTED % (AUTO) 100 %; WHITE BLOOD COUNT 10.6 10^3/uL (4.0-10.5)
[2017-11-07 04:20] LABS: VENOUS BLOOD BASE EXCESS 2.3 mmol/L; VENOUS BLOOD HCO3 32.1 mmol/L (20-32); VENOUS BLOOD PH 7.22 (7.30-7.42)
[2017-11-07 04:23] LABS: VENOUS BLOOD PCO2 80.7 mmHg (35-63)
--- NOTE | 2017-11-07 04:36 | RADIOLOGY REPORT (SQ) ---
EXAM DESCRIPTION: CT HEAD WITHOUT CLINICAL HISTORY: ams COMPARISON: 07/11/2016 TECHNIQUE: Axial CT of the head obtained from the skull apex to the skull base without contrast. FINDINGS: No acute intracranial hemorrhage identified. No mass, mass effect, shift of the midline, abnormal extra-axial fluid collection or CT evidence of acute ischemic change identified. The ventricular system and sulcal spaces are mildly enlarged compatible with mild cerebral atrophy. Scattered areas of hypodensity throughout the supratentorial white matter are nonspecific and may be related to chronic small vessel ischemic change. Alvarez cisterna magna. The visualized paranasal sinuses and the mastoids are clear. No skull fracture identified. Visualized orbits and globes are unremarkable. Atherosclerotic calcification of the intracranial internal carotid arteries. DLP: 1162.97 mGy-cm IMPRESSION: 1. No acute intracranial abnormality by CT criteria. This exam was performed according to our departmental dose-optimization program, which includes automated exposure control, adjustment of the mA and/or kV according to patient size and/or use of iterative reconstruction technique.
[2017-11-07 04:41] LABS: INTERNATIONAL RATION (INR) 0.97; PROTHROMBIN TIME 13.5 SEC (11.4-15.4)
--- NOTE | 2017-11-07 04:42 | RADIOLOGY REPORT (SQ) ---
EXAM DESCRIPTION: CHEST SINGLE VIEW CLINICAL HISTORY: ams COMPARISON: 10/27/2017 FINDINGS: Single frontal view of the chest. Tracheostomy. Elevation the right hemidiaphragm. Atherosclerotic calcification aortic arch. Heart is not enlarged. Discoid atelectasis or scar in the left lung base. No pneumothorax, acute consolidation, or definite pleural effusion. No acute osseous abnormalities. Upper abdominal soft tissues are unremarkable. IMPRESSION: 1. No acute pulmonary process identified. Stable appearance of the chest.
[2017-11-07 04:51] LABS: AMORPHOUS SEDIMENT,URINE TRACE /HPF; APPEARANCE,URINE CLOUDY; BILIRUBIN,URINE NEGATIVE (NEGATIVE); COLOR,URINE YELLOW; GLUCOSE, URINE 50 mg/dL (NEGATIVE); KETONES,URINE NEGATIVE (NEGATIVE); LEUKOCYTE ESTERASE,URINE LARGE (NEGATIVE); NITRITE,URINE NEGATIVE (NEGATIVE); PROTEIN,URINE 30 mg/dL (NEGATIVE); URINE SPECIFIC GRAVITY 1.011; UROBILINOGEN,URINE NEGATIVE mg/dL (<2.0)
[2017-11-07] MEDS ORDERED: CEFTRIAXONE 1 GM/D5W RTU 1 GM/50 ML RTUPB IV ONE (04:53)
[2017-11-07] MEDS ORDERED: CEFTRIAXONE INJ 1000 MG VIAL IV ONE (05:39)
--- NOTE | 2017-11-07 05:58 | ER Document Report ---
ED General - General TRAVEL OUTSIDE OF THE [place] IN LAST 30 DAYS: No - HPI Patient complains to provider of: Altered mental status <RONI JIMENEZ - Last Filed: 11/07/17 06:32> <EMILI AMAYA - Last Filed: 11/07/17 07:45> - General Chief Complaint: Altered Mental Status Stated Complaint: ALTERED MENTAL STATUS Time Seen by Provider: 11/07/17 03:26 - HPI Notes: Patient coming in with a history of dementia according EMS called for altered mental status patient had decreased responsiveness patient was found to be hypoxic upon their arrival. Pt only on humidified air at home. Patient has a history of respiratory failure in the past patient does have a trach patient was placed on oxygen transport to the ER with placement of oxygen patient's SPO2 did improve and according to EMS patient became more weak during transport. Upon my evaluation patient resting comfortably will open her eyes to voice however not following any commands. Patient does not look to be in any obvious distress. Family members also at bedside concerned about a wound on the left ankle and also concerned that the patient is still having diarrhea. Patient was recently admitted for dehydration and diarrhea. No fevers according to family at home. (RONI JIMENEZ) - Related Data Allergies/Adverse Reactions: alprazolam [From Xanax] Allergy (Verified 08/12/17 10:54) iodine [Iodine] Allergy (Verified 08/12/17 10:54) quetiapine fumarate [From Seroquel] Allergy (Verified 08/12/17 10:54) Past Medical History - Social History Smoking Status: Unknown if Ever Smoked Chew tobacco use (# tins/day): No Frequency of alcohol use: None Drug Abuse: None Family History: Reviewed & Not Pertinent Patient has suicidal ideation: No Patient has homicidal ideation: No - Past Medical History Cardiac Medical History: Reports: Hx Congestive Heart Failure, Hx Hypercholesterolemia, Hx Hypertension, Hx Peripheral Vascular Disease Pulmonary Medical History: Reports: Hx COPD Endocrine Medical History: Reports: Hx Diabetes Mellitus Type 2 Renal/ Medical History: Denies: Hx Peritoneal Dialysis Psychiatric Medical History: Reports: Hx Dementia Denies: Hx Depression Past Surgical History: Reports: Hx Abdominal Surgery - GI tube, Hx Orthopedic Surgery - Shoulder. 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., Other - tracheostomy - Immunizations Hx Diphtheria, Pertussis, Tetanus Vaccination: Yes <RONI JIMENEZ - Last Filed: 11/07/17 06:32> Review of Systems - Review of Systems -: Yes ROS unobtainable due to patient's medical condition - Dementia <RONI JIMENEZ - Last Filed: 11/07/17 06:32> Physical Exam - Vital signs Interpretation: Normal - General General appearance: Other - Somnolent will arouse to voice - HEENT Head: Normocephalic, Atraumatic Eyes: Normal Pupils: PERRL - Respiratory Respiratory status: No respiratory distress Chest status: Nontender Breath sounds: Normal Chest palpation: Normal - Cardiovascular Rhythm: Regular Heart sounds: Normal auscultation Murmur: No - Abdominal Inspection: Normal Distension: No distension Bowel sounds: Normal Tenderness: Nontender Organomegaly: No organomegaly - Extremities General upper extremity: Normal inspection, Nontender, Normal color, Normal temperature General lower extremity: Nontender, Normal color, Normal temperature. No: Normal inspection - Patient with a amputation of the right leg excoriations of the left ankle multiple small wounds - Neurological Neuro grossly intact: Yes Sensory: Normal - Skin Skin Temperature: Warm Skin Moisture: Dry Skin Color: Normal <RONI JIMENEZ - Last Filed: 11/07/17 06:32> <EMILI AMAYA - Last Filed: 11/07/17 07:45> - Vital signs Vitals: Pulse Ox 100 11/07/17 03:37 - HEENT Notes: Tracheostomy in place no signs of infection or drainage (RONI JIMENEZ) - Abdominal Notes: Feeding tube in place no signs of infection (RONI JIMENEZ) - Neurological Notes: Patient moving her upper extremities opening eyes to voice and moving the left lower extremity (RONI JIMENEZ) Course - Laboratory Result Diagrams: 11/07/17 04:00 11/07/17 05:40 <RONI JIMENEZ - Last Filed: 11/07/17 06:32> - Laboratory Result Diagrams: 11/07/17 04:00 11/07/17 05:40 <EMILI AMAYA - Last Filed: 11/07/17 07:45> - Re-evaluation Re-evalutation: 11/07/17 06:02 Patient with recent hospitalization. Laboratory studies at this time does show UTI hypercapnia with acidosis. We will continue with the patient's trach shield will continue to monitor her respiratory status somnolence could be due to urinary tract infection. Antibiotics will be given will discuss with PCP once chemistry returns for admission. At this time patient otherwise looks to be stable with measures here in the ER. 11/07/17 06:38 (RONI JIMENEZ) - Vital Signs Vital signs: Temp Pulse Resp BP Pulse Ox 15 123/56 L 100 11/07/17 07:01 11/07/17 07:01 11/07/17 07:01 - Laboratory Laboratory results interpreted by me: 11/07/17 11/07/17 11/07/17 04:00 04:00 04:00 WBC 10.6 H Hgb 11.1 L Hct 34.7 L RDW 15.8 H Eosinophils % 9.9 H Absolute Eosinophils 1.1 H VBG pH 7.22 L VBG pCO2 80.7 H* VBG HCO3 32.1 H BUN Glucose Lactic Acid 0.6 L Calcium Urine Protein Urine Glucose (UA) Ur Leukocyte Esterase Urine Ascorbic Acid 11/07/17 11/07/17 04:15 05:40 WBC Hgb Hct RDW Eosinophils % Absolute Eosinophils VBG pH VBG pCO2 VBG HCO3 BUN 41 H Glucose 126 H Lactic Acid Calcium 11.0 H Urine Protein 30 H Urine Glucose (UA) 50 H Ur Leukocyte Esterase LARGE H Urine Ascorbic Acid 40 H Discharge - Discharge Admitting Provider: Fermin <RONI JIMENEZ - Last Filed: 11/07/17 06:32> - Discharge Admitting Provider: Fermin Unit Admitted: Telemetry <EMILI AMAYA - Last Filed: 11/07/17 07:45> - Discharge Clinical Impression: Hypoxia, Tracheostomy dependence, Hypercapnia, Encephalopathy acute Urinary tract infection Qualifiers: Urinary tract infection type: site unspecified Hematuria presence: without hematuria Qualified Code(s): N39.0 - Urinary tract infection, site not specified Condition: Fair Disposition: ADMITTED INPATIENT Referrals: BAKARI BECKER MD [Primary Care Provider] - Follow up as needed
[2017-11-07 06:11] LABS: ALANINE AMINOTRANSFERASE 22 U/L (9-52); ALBUMIN 3.8 g/dL (3.5-5.0); ALKALINE PHOSPHATASE 109 U/L (38-126); ANION GAP 9 (5-19); ASPARTATE AMINO TRANSFERASE 26 U/L (14-36); BILIRUBIN,DIRECT 0.4 mg/dL (0.0-0.4); BILIRUBIN,TOTAL 0.4 mg/dL (0.2-1.3); BLOOD UREA NITROGEN 41 mg/dL (7-20); CARBON DIOXIDE 27 mmol/L (22-30); CHLORIDE 107 mmol/L (98-107); GLUCOSE 126 mg/dL (75-110); SODIUM 142.5 mmol/L (137-145)
--- NOTE | 2017-11-07 07:18 | ER Document Report ---
ED Medical Screen (RME) - General Chief Complaint: Altered Mental Status Stated Complaint: ALTERED MENTAL STATUS Time Seen by Provider: 11/07/17 03:26 TRAVEL OUTSIDE OF THE [place] IN LAST 30 DAYS: No - Related Data Allergies/Adverse Reactions: alprazolam [From Xanax] Allergy (Verified 08/12/17 10:54) iodine [Iodine] Allergy (Verified 08/12/17 10:54) quetiapine fumarate [From Seroquel] Allergy (Verified 08/12/17 10:54) Past Medical History - Social History Chew tobacco use (# tins/day): No Frequency of alcohol use: None Drug Abuse: None - Past Medical History Cardiac Medical History: Reports: Hx Congestive Heart Failure, Hx Hypercholesterolemia, Hx Hypertension, Hx Peripheral Vascular Disease Pulmonary Medical History: Reports: Hx COPD Endocrine Medical History: Reports: Hx Diabetes Mellitus Type 2 Renal/ Medical History: Denies: Hx Peritoneal Dialysis Psychiatric Medical History: Reports: Hx Dementia Denies: Hx Depression Past Surgical History: Reports: Hx Abdominal Surgery - GI tube, Hx Orthopedic Surgery - Shoulder. 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., Other - tracheostomy - Immunizations Hx Diphtheria, Pertussis, Tetanus Vaccination: Yes History of Influenza Vaccine for 06/2017 - 11/2017 Season: Yes Influenza Administration Date for 06/2017 - 11/2017 Season: 07/27/17 Physical Exam - Vital signs Vitals: Pulse Ox 100 11/07/17 03:37 Course - Vital Signs Vital signs: Temp Pulse Resp BP Pulse Ox 15 123/56 L 100 11/07/17 07:01 11/07/17 07:01 11/07/17 07:01 - Laboratory Result Diagrams: 11/07/17 04:00 11/07/17 05:40 Laboratory results interpreted by me: 11/07/17 11/07/17 11/07/17 04:00 04:00 04:00 WBC 10.6 H Hgb 11.1 L Hct 34.7 L RDW 15.8 H Eosinophils % 9.9 H Absolute Eosinophils 1.1 H VBG pH 7.22 L VBG pCO2 80.7 H* VBG HCO3 32.1 H BUN Glucose Lactic Acid 0.6 L Calcium Urine Protein Urine Glucose (UA) Ur Leukocyte Esterase Urine Ascorbic Acid 11/07/17 11/07/17 04:15 05:40 WBC Hgb Hct RDW Eosinophils % Absolute Eosinophils VBG pH VBG pCO2 VBG HCO3 BUN 41 H Glucose 126 H Lactic Acid Calcium 11.0 H Urine Protein 30 H Urine Glucose (UA) 50 H Ur Leukocyte Esterase LARGE H Urine Ascorbic Acid 40 H Doctor's Discharge - Discharge Clinical Impression: Hypoxia, Tracheostomy dependence, Hypercapnia, Encephalopathy acute Urinary tract infection Qualifiers: Urinary tract infection type: site unspecified Hematuria presence: without hematuria Qualified Code(s): N39.0 - Urinary tract infection, site not specified Condition: Fair Disposition: ADMITTED INPATIENT Referrals: BAKARI BECKER MD [Primary Care Provider] - Follow up as needed
[2017-11-07 08:56] LABS: LIPASE 238.3 U/L (23-300); PHOSPHORUS 4.9 mg/dL (2.5-4.5)
[2017-11-07 09:13] LABS: FREE T4 (FREE THYROXINE) 1.21 ng/dL (0.78-2.19)
[2017-11-07 09:27] LABS: THYROID STIMULATING HORMONE 5.06 uIU/mL (0.47-4.68)
[2017-11-07] MEDS: IPRATROPIUM/ALBUTEROL 0.5-2.5 MG/3 ML AMPUL NEB SCH ×8 (10:09→23:25)
--- NOTE | 2017-11-07 10:15 | EKG REPORT ---
SEVERITY:- ABNORMAL ECG - SINUS RHYTHM FIRST DEGREE AV BLOCK LEFT BUNDLE BRANCH BLOCK : Confirmed by: Mirella Marrero 07-Nov-2017 10:14:43
[2017-11-07 10:42] LABS: ARTERIAL BLOOD H2CO3 2.16 mmol/L (1.05-1.35); ARTERIAL BLOOD HCO3 30.7 mmol/L (20-26); ARTERIAL BLOOD O2 SATURATION 97.7 % (94-98); ARTERIAL BLOOD PH 7.25 (7.35-7.45); ARTERIAL BLOOD PO2 121.1 mmHg (80-100); ARTERIAL BLOOD TOTAL CO2 32.9 mmol/L (21-25)
[2017-11-07 10:43] LABS: ARTERIAL BLOOD FIO2 40%
[2017-11-07 10:44] LABS: ARTERIAL BLOOD PCO2 71.8 mmHg (35-45)
[2017-11-07 10:54] LABS: CREATINE KINASE MB 0.92 ng/mL (<4.55)
[2017-11-07 10:55] LABS: TROPONIN I < 0.012 ng/mL
[2017-11-07] MEDS: ENOXAPARIN SODIUM INJ 40 MG/0.4 ML DISP.SYRIN SUBCUT SCH (10:59)
[2017-11-07 16:55] LABS: CREATINE KINASE MB 0.63 ng/mL (<4.55)
[2017-11-07 16:59] LABS: TROPONIN I < 0.012 ng/mL
--- NOTE | 2017-11-07 21:31 | PDOC H&P ---
History of Present Illness Admission Date/PCP: 11/07/17 08:13 BAKARI BECKER MD History of Present Illness: Patient 82-year-old female she was transferred from her residence to the emergency room for evaluation of altered mental status. She was evaluated in the emergency room, a CAT scan of the head was done it was negative for any acute pathology. ABG was done on FiO2 40%, pH 7.25, PCO2 71.8, bicarbonate 30.2, consistent with acute hypercapnic respiratory acidosis, she has a tracheostomy, she is a full code, she was attached to mechanical ventilation because of CO2 narcosis. She has multiple comorbid conditions, she is status post amputation of the right leg, she was recently admitted in this hospital for evaluation of diarrhea, dehydration but when she was admitted she had no diarrhea throughout hospital stay. Patient 'daughter stated that her stool is loose again. Past Medical History Cardiac Medical History: Reports: Hypertension, Peripheral Vascular Disease, Pulmonary Embolism, Other - Chronic diastolic heart failure Pulmonary Medical History: Reports: Chronic Obstructive Pulmonary Disease (COPD) Endocrine Medical History: Reports: Diabetes Mellitus Type 2 Psychiatric Medical History: Reports: Dementia Past Surgical History Past Surgical History: Reports: Orthopedic Surgery - Shoulder. 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 , Other - tracheostomy Social History Smoking Status: Never Smoker Frequency of Alcohol Use: None Hx Recreational Drug Use: No Drugs: None Hx Prescription Drug Abuse: No Family History Family History: Reviewed & Not Pertinent Parental Family History Reviewed: Yes Children Family History Reviewed: Yes Sibling(s) Family History Reviewed.: Yes Medication/Allergy Home Medications: Albuterol Sulfate [Ventolin 0.083% Neb 2.5 mg/3 ml Ampul] 2.5 mg NEB Q6HP PRN Amlodipine Besylate [Norvasc 10 mg Tablet] 10 mg PO DAILY 11/07/17 Ascorbic Acid [Vitamin C 500 mg Tablet] 500 mg PO DAILY 11/07/17 Aspirin [Aspirin 81 mg Chewable Tablet] 81 mg PO DAILY 11/07/17 Gabapentin [Neurontin] 250 mg PO QPM 11/07/17 Insulin Aspart [Novolog Insulin (Aspart) 100 unit/mL] 0 units SUBCUT .SLD SCALE 11/07/17 Losartan Potassium [Cozaar 25 mg Tablet] 25 mg PO DAILY 11/07/17 Memantine HCl [Namenda 10 mg Tablet] 10 mg PO DAILY 11/07/17 Ondansetron HCl [Zofran 4 mg Tablet] 1 tab PO TIDP PRN 11/07/17 Allergies/Adverse Reactions: alprazolam [From Xanax] Allergy (Verified 08/12/17 10:54) iodine [Iodine] Allergy (Verified 08/12/17 10:54) quetiapine fumarate [From Seroquel] Allergy (Verified 08/12/17 10:54) Review of Systems ROS unobtainable: Due to mental status Physical Exam Vital Signs: Temp Pulse Resp BP Pulse Ox 99.0 F 86 13 130/95 H 95 11/07/17 20:12 11/07/17 20:12 11/07/17 20:12 11/07/17 20:12 11/07/17 20:12 Intake & Output 11/06/17 11/07/17 11/08/17 06:59 06:59 06:59 Weight 66.3 kg General appearance: PRESENT: no acute distress Eye exam: PRESENT: PERRLA Neck exam: PRESENT: tracheostomy Respiratory exam: PRESENT: clear to auscultation monica Cardiovascular exam: PRESENT: +S1, +S2 GI/Abdominal exam: PRESENT: soft, other - There is a PEG tube Extremities exam: PRESENT: right AKA, other - Pressure ulcer of left ankle Neurological exam: PRESENT: altered Results Laboratory Results: 11/07/17 11/07/17 10:00 10:05 Carbonic Acid 2.16 H HCO3/H2CO3 Ratio 14:1 ABG pH 7.25 L ABG pCO2 71.8 H* ABG pO2 121.1 H ABG HCO3 30.7 H ABG O2 Saturation 97.7 ABG Base Excess 2.0 FiO2 40% Ammonia < 8.7 L 11/07/17 11/07/17 10:00 15:55 CK-MB (CK-2) 0.92 0.63 Troponin I < 0.012 < 0.012 Impressions: Chest X-Ray 11/07/17 03:42 IMPRESSION: 1. No acute pulmonary process identified. Stable appearance of the chest. Head CT 11/07/17 03:42 IMPRESSION: 1. No acute intracranial abnormality by CT criteria. This exam was performed according to our departmental dose-optimization program, which includes automated exposure control, adjustment of the mA and/or kV according to patient size and/or use of iterative reconstruction technique. Assessment & Plan - Diagnosis (1) Acute hypercapnic respiratory failure Is this a current diagnosis for this admission?: Yes Plan: The exact etiology of the acute hypercapnic with a refill is not clear presently on mechanical ventilation initial vent setting ordered consultation obtained from pulmonary (2) Tracheostomy dependence Is this a current diagnosis for this admission?: Yes (3) Pressure ulcer of left heel, stage 4 Is this a current diagnosis for this admission?: Yes (4) Primary hyperparathyroidism Is this a current diagnosis for this admission?: Yes (5) Metabolic encephalopathy Is this a current diagnosis for this admission?: Yes Plan: She has altered mental status, stuporous from CO2 narcosis
[2017-11-07] MEDS ORDERED: ONDANSETRON 4 MG TAB.RAPDIS PO PRN (21:41)
[2017-11-07] MEDS ORDERED: AMLODIPINE BESYLATE 10 MG TABLET PO ONE (22:00)
[2017-11-07] MEDS ORDERED: LOSARTAN POTASSIUM 25 MG TABLET PO ONE (22:00)
[2017-11-07] MEDS ORDERED: ASCORBIC ACID 500 MG TABLET PO ONE (22:00)
[2017-11-07] MEDS ORDERED: ASPIRIN 81 MG TABLET, CHEWABLE PO ONE (22:00)
[2017-11-07] MEDS: NORMAL SALINE 1000 ML 1,000 ML IV PRN (22:41)
[2017-11-07 23:03] LABS: CREATINE KINASE MB 0.52 ng/mL (<4.55)
[2017-11-07 23:07] LABS: TROPONIN I < 0.012 ng/mL
[2017-11-08 04:04] LABS: ABSOLUTE BASOPHILS # (AUTO) 0.1 10^3/uL (0.0-0.2); ABSOLUTE EOSINOPHILS # (AUTO) 0.5 10^3/uL (0.0-0.6); ABSOLUTE LYMPHOCYTES (AUTO) 2.9 10^3/uL (0.5-4.7); ABSOLUTE MONOCYTES (AUTO) 1.2 10^3/uL (0.1-1.4); ABSOLUTE NEUT (AUTO) 5.9 10^3/uL (1.7-8.2); EOSINOPHILS % (AUTO) 4.7 % (0-6); HEMATOCRIT 31.7 % (36.0-47.0); HEMOGLOBIN 10.4 g/dL (12.0-15.5); LYMPHOCYTES % (AUTO) 27.5 % (13-45); MEAN CORPUSCULAR HEMOGLOBIN 29.6 pg (27.0-33.4); MEAN CORPUSCULAR HGB CONC 32.8 g/dL (32.0-36.0); MEAN CORPUSCULAR VOLUME 90 fl (80-97); MONOCYTES % (AUTO) 11.1 % (3-13); PLATELET COUNT 364 10^3/uL (150-450); RED BLOOD COUNT 3.51 10^6/uL (3.72-5.28); RED CELL DISTRIBUTION WIDTH 15.5 % (11.5-14.0); SEGMENTED NEUTROPHILS % (AUTO) 55.7 % (42-78); TOTAL CELLS COUNTED % (AUTO) 100 %; WHITE BLOOD COUNT 10.6 10^3/uL (4.0-10.5)
[2017-11-08 04:43] LABS: ALANINE AMINOTRANSFERASE 20 U/L (9-52); ALBUMIN 3.4 g/dL (3.5-5.0); ALKALINE PHOSPHATASE 98 U/L (38-126); ANION GAP 10 (5-19); ASPARTATE AMINO TRANSFERASE 19 U/L (14-36); BILIRUBIN,DIRECT 0.2 mg/dL (0.0-0.4); BILIRUBIN,TOTAL 0.4 mg/dL (0.2-1.3); BLOOD UREA NITROGEN 42 mg/dL (7-20); CALCIUM 10.6 mg/dL (8.4-10.2); CARBON DIOXIDE 24 mmol/L (22-30); CHLORIDE 110 mmol/L (98-107); CHOLESTEROL 142.65 mg/dL (0-200); GLUCOSE 159 mg/dL (75-110); SODIUM 143.5 mmol/L (137-145); TOTAL PROTEIN 6.7 g/dL (6.3-8.2); TRIGLYCERIDES 109 mg/dL (<150)
[2017-11-08 04:54] LABS: DIRECT LDL 83 mg/dL (<100)
[2017-11-08 05:06] LABS: PHOSPHORUS 2.5 mg/dL (2.5-4.5); POTASSIUM 3.7 mmol/L (3.6-5.0)
[2017-11-08 06:36] LABS: ARTERIAL BLOOD BASE EXCESS 0.4 mmol/L; ARTERIAL BLOOD FIO2 35%; ARTERIAL BLOOD H2CO3 0.92 mmol/L (1.05-1.35); ARTERIAL BLOOD HCO3 23.2 mmol/L (20-26); ARTERIAL BLOOD O2 SATURATION 98.9 % (94-98); ARTERIAL BLOOD PCO2 30.6 mmHg (35-45); ARTERIAL BLOOD PO2 131.1 mmHg (80-100); ARTERIAL BLOOD TOTAL CO2 24.1 mmol/L (21-25)
--- NOTE | 2017-11-08 08:22 | RADIOLOGY REPORT (SQ) ---
EXAM DESCRIPTION: CHEST SINGLE VIEW COMPLETED DATE/TIME: 11/08/2017 7:11 am REASON FOR STUDY: respiratory failure COMPARISON: 11/07/2017. EXAM PARAMETERS: NUMBER OF VIEWS: One view. TECHNIQUE: Single frontal radiographic view of the chest acquired. RADIATION DOSE: NA LIMITATIONS: None. FINDINGS: LUNGS AND PLEURA: Elevated right hemidiaphragm. Faint density in the right lung base. Li near densities in the left base. MEDIASTINUM AND HILAR STRUCTURES: No masses. Contour normal. HEART AND VASCULAR STRUCTURES: Heart normal in size. Normal vasculature. BONES: No acute findings. HARDWARE: Tracheostomy tube. OTHER: No other significant finding. IMPRESSION: NO CHANGE IN APPEARANCE OF THE CHEST. TECHNICAL DOCUMENTATION: JOB ID: [id number] [employer]- All Rights Reserved
[2017-11-08] MEDS ORDERED: LOSARTAN POTASSIUM 25 MG TABLET PO SCH (10:00)
[2017-11-08] MEDS ORDERED: AMLODIPINE BESYLATE 10 MG TABLET PO SCH (10:00)
[2017-11-08] MEDS ORDERED: ASCORBIC ACID 500 MG TABLET PO SCH (10:00)
[2017-11-08] MEDS ORDERED: ASPIRIN 81 MG TABLET, CHEWABLE PO SCH (10:00)
[2017-11-08] MEDS ORDERED: MEMANTINE HCL 10 MG TABLET PO SCH (10:00)
[2017-11-08] MEDS ORDERED: ONDANSETRON 4 MG TAB.RAPDIS PEG PRN (11:05)
[2017-11-08] MEDS ORDERED: ASCORBIC ACID 500 MG TABLET PEG ONE (12:00)
[2017-11-08] MEDS ORDERED: LOSARTAN POTASSIUM 25 MG TABLET PEG ONE (12:00)
[2017-11-08] MEDS ORDERED: AMLODIPINE BESYLATE 10 MG TABLET PEG ONE (12:00)
[2017-11-08] MEDS ORDERED: ASPIRIN 81 MG TABLET, CHEWABLE PEG ONE (12:00)
[2017-11-08] MEDS ORDERED: MEMANTINE HCL 10 MG TABLET PEG ONE (12:00)
[2017-11-08] MEDS: VANCOMYCIN HCL INJ 500 MG VIAL PEG SCH ×2 (12:47→18:31)
[2017-11-08] MEDS: ENOXAPARIN SODIUM INJ 40 MG/0.4 ML DISP.SYRIN SUBCUT SCH (12:47)
--- NOTE | 2017-11-08 13:12 | PDOC PROGRESS REPORT ---
Subjective Progress Note for:: 11/08/17 Subjective:: awake started vancomycin po for c diff Reason For Visit: ACUTE HYPERCAPNIC RESPIRATORY FAILURE,CO2 NARCOSIS Physical Exam Vital Signs: Temp Pulse Resp BP Pulse Ox 98.2 F 61 12 127/55 H 100 11/08/17 08:00 11/08/17 08:04 11/08/17 08:00 11/08/17 08:00 11/08/17 08:00 Intake & Output 11/07/17 11/08/17 11/09/17 06:59 06:59 06:59 Intake Total 1519 Output Total 305 65 Balance 1214 -65 Weight 60.9 kg Results Laboratory Results: 11/08/17 03:48 11/08/17 03:48 11/07/17 11/07/17 11/08/17 10:00 10:05 03:48 WBC 10.6 H RBC 3.51 L Hgb 10.4 L Hct 31.7 L MCV 90 MCH 29.6 MCHC 32.8 RDW 15.5 H Plt Count 364 Seg Neutrophils % 55.7 Lymphocytes % 27.5 Monocytes % 11.1 Eosinophils % 4.7 Basophils % 1.0 Absolute Neutrophils 5.9 Absolute Lymphocytes 2.9 Absolute Monocytes 1.2 Absolute Eosinophils 0.5 Absolute Basophils 0.1 Carbonic Acid 2.16 H HCO3/H2CO3 Ratio 14:1 ABG pH 7.25 L ABG pCO2 71.8 H* ABG pO2 121.1 H ABG HCO3 30.7 H ABG O2 Saturation 97.7 ABG Base Excess 2.0 FiO2 40% Sodium Potassium Chloride Carbon Dioxide Anion Gap BUN Creatinine Est GFR ( Amer) Est GFR (Non-Af Amer) Glucose Calcium Phosphorus Magnesium Total Bilirubin AST ALT Alkaline Phosphatase Ammonia < 8.7 L Total Protein Albumin Triglycerides Cholesterol LDL Cholesterol Direct VLDL Cholesterol HDL Cholesterol 11/08/17 11/08/17 03:48 06:15 WBC RBC Hgb Hct MCV MCH MCHC RDW Plt Count Seg Neutrophils % Lymphocytes % Monocytes % Eosinophils % Basophils % Absolute Neutrophils Absolute Lymphocytes Absolute Monocytes Absolute Eosinophils Absolute Basophils Carbonic Acid 0.92 L HCO3/H2CO3 Ratio 25:1 ABG pH 7.50 H ABG pCO2 30.6 L ABG pO2 131.1 H ABG HCO3 23.2 ABG O2 Saturation 98.9 H ABG Base Excess 0.4 FiO2 35% Sodium 143.5 Potassium 3.7 D Chloride 110 H Carbon Dioxide 24 Anion Gap 10 BUN 42 H Creatinine 0.93 Est GFR ( Amer) > 60 Est GFR (Non-Af Amer) 58 L Glucose 159 H Calcium 10.6 H Phosphorus 2.5 D Magnesium 2.3 Total Bilirubin 0.4 AST 19 ALT 20 Alkaline Phosphatase 98 Ammonia Total Protein 6.7 Albumin 3.4 L Triglycerides 109 Cholesterol 142.65 LDL Cholesterol Direct 83 VLDL Cholesterol 22.0 HDL Cholesterol 36 L 11/07/17 11/07/17 11/07/17 10:00 15:55 22:25 CK-MB (CK-2) 0.92 0.63 0.52 Troponin I < 0.012 < 0.012 < 0.012 NT-Pro-B Natriuret Pep 11/08/17 03:48 CK-MB (CK-2) Troponin I NT-Pro-B Natriuret Pep 697 H Impressions: Head CT 11/07/17 03:42 IMPRESSION: 1. No acute intracranial abnormality by CT criteria. This exam was performed according to our departmental dose-optimization program, which includes automated exposure control, adjustment of the mA and/or kV according to patient size and/or use of iterative reconstruction technique. Chest X-Ray 11/08/17 06:00 IMPRESSION: NO CHANGE IN APPEARANCE OF THE CHEST. Assessment & Plan - Diagnosis (1) Acute hypercapnic respiratory failure Is this a current diagnosis for this admission?: Yes Plan: The above patient has failed BiPAP. This patient would benefit from invasive mechanical ventilation via the trilogy.Patient will need to pressure support as well as PEEP. The trilogy is able to provide a target tidal volume and maintain a patent airway as well as an oral backup rate this machine will help improve PaCO2 levels. The severity of the patient's condition will lead to future hospitalizations and readmissions as well as life-threatening situations without the use of this device trilogy home vent needed for hypercapnic respiratory failure. [facility] or [facility] [place] to follow for trilogy set up. (2) Tracheostomy dependence Is this a current diagnosis for this admission?: Yes Plan: Unchanged (3) Acute hypoxemic respiratory failure Is this a current diagnosis for this admission?: Yes Plan: Continue supplemental oxygen - Time Total Critical Time (Minutes): 55
[2017-11-08] MEDS ORDERED: TOBRAMYCIN SULFATE INJ 80 MG/2 ML VIAL NEB SCH (13:15)
[2017-11-08] MEDS ORDERED: ERTAPENEM SODIUM 1 GM in NORMAL SALINE 50 ML IV SCH (18:00)
--- NOTE | 2017-11-08 18:55 | PDOC PROGRESS REPORT ---
Subjective Progress Note for:: 11/08/17 Subjective:: She was seen by the bedside, she is alert on mechanical ventilation, she has a tracheostomy. The stool positive for C. difficile toxin the sputum positive for gram-negative rods urine gram-negative rods Reason For Visit: ACUTE HYPERCAPNIC RESPIRATORY FAILURE,CO2 NARCOSIS Physical Exam Vital Signs: Temp Pulse Resp BP Pulse Ox 98.4 F 88 21 H 119/79 100 11/08/17 16:00 11/08/17 16:00 11/08/17 16:00 11/08/17 16:00 11/08/17 17:01 Intake & Output 11/07/17 11/08/17 11/09/17 06:59 06:59 06:59 Intake Total 1519 Output Total 305 660 Balance 1214 -660 Weight 60.9 kg General appearance: PRESENT: no acute distress Eye exam: PRESENT: PERRLA Respiratory exam: PRESENT: clear to auscultation monica Cardiovascular exam: PRESENT: +S1, +S2 GI/Abdominal exam: PRESENT: soft Neurological exam: PRESENT: alert Results Laboratory Results: 11/08/17 03:48 11/08/17 03:48 11/08/17 11/08/17 11/08/17 03:48 03:48 06:15 WBC 10.6 H RBC 3.51 L Hgb 10.4 L Hct 31.7 L MCV 90 MCH 29.6 MCHC 32.8 RDW 15.5 H Plt Count 364 Seg Neutrophils % 55.7 Lymphocytes % 27.5 Monocytes % 11.1 Eosinophils % 4.7 Basophils % 1.0 Absolute Neutrophils 5.9 Absolute Lymphocytes 2.9 Absolute Monocytes 1.2 Absolute Eosinophils 0.5 Absolute Basophils 0.1 Carbonic Acid 0.92 L HCO3/H2CO3 Ratio 25:1 ABG pH 7.50 H ABG pCO2 30.6 L ABG pO2 131.1 H ABG HCO3 23.2 ABG O2 Saturation 98.9 H ABG Base Excess 0.4 FiO2 35% Sodium 143.5 Potassium 3.7 D Chloride 110 H Carbon Dioxide 24 Anion Gap 10 BUN 42 H Creatinine 0.93 Est GFR ( Amer) > 60 Est GFR (Non-Af Amer) 58 L Glucose 159 H Calcium 10.6 H Phosphorus 2.5 D Magnesium 2.3 Total Bilirubin 0.4 AST 19 ALT 20 Alkaline Phosphatase 98 Total Protein 6.7 Albumin 3.4 L Triglycerides 109 Cholesterol 142.65 LDL Cholesterol Direct 83 VLDL Cholesterol 22.0 HDL Cholesterol 36 L 11/07/17 11/07/17 11/07/17 10:00 15:55 22:25 CK-MB (CK-2) 0.92 0.63 0.52 Troponin I < 0.012 < 0.012 < 0.012 NT-Pro-B Natriuret Pep 11/08/17 03:48 CK-MB (CK-2) Troponin I NT-Pro-B Natriuret Pep 697 H Impressions: Head CT 11/07/17 03:42 IMPRESSION: 1. No acute intracranial abnormality by CT criteria. This exam was performed according to our departmental dose-optimization program, which includes automated exposure control, adjustment of the mA and/or kV according to patient size and/or use of iterative reconstruction technique. Chest X-Ray 11/08/17 06:00 IMPRESSION: NO CHANGE IN APPEARANCE OF THE CHEST. Assessment & Plan - Diagnosis (1) Acute hypercapnic respiratory failure Is this a current diagnosis for this admission?: Yes (2) Tracheostomy dependence Is this a current diagnosis for this admission?: Yes (3) Pressure ulcer of left heel, stage 4 Is this a current diagnosis for this admission?: Yes (4) Primary hyperparathyroidism Is this a current diagnosis for this admission?: Yes (5) Metabolic encephalopathy Is this a current diagnosis for this admission?: Yes
[2017-11-08] MEDS: ALBUTEROL SULFATE 0.083% NEB 2.5 MG/3 ML AMPUL NEB PRN (19:57)
[2017-11-08] MEDS: TOBRAMYCIN SULFATE NEB 40 MG/ML 30 ML NEB SCH (20:01)
[2017-11-09] MEDS: VANCOMYCIN HCL INJ 500 MG VIAL PEG SCH ×4 (00:15→18:45)
[2017-11-09 03:57] LABS: ABSOLUTE BASOPHILS # (AUTO) 0.1 10^3/uL (0.0-0.2); ABSOLUTE EOSINOPHILS # (AUTO) 1.4 10^3/uL (0.0-0.6); ABSOLUTE LYMPHOCYTES (AUTO) 2.8 10^3/uL (0.5-4.7); ABSOLUTE MONOCYTES (AUTO) 1.1 10^3/uL (0.1-1.4); ABSOLUTE NEUT (AUTO) 5.2 10^3/uL (1.7-8.2); BASOPHILS % (AUTO) 1.4 % (0-2); EOSINOPHILS % (AUTO) 13.4 % (0-6); HEMOGLOBIN 10.2 g/dL (12.0-15.5); MEAN CORPUSCULAR HEMOGLOBIN 29.4 pg (27.0-33.4); MEAN CORPUSCULAR HGB CONC 32.8 g/dL (32.0-36.0); MEAN CORPUSCULAR VOLUME 90 fl (80-97); MONOCYTES % (AUTO) 10.4 % (3-13); PLATELET COUNT 379 10^3/uL (150-450); RED BLOOD COUNT 3.46 10^6/uL (3.72-5.28); RED CELL DISTRIBUTION WIDTH 15.5 % (11.5-14.0); SEGMENTED NEUTROPHILS % (AUTO) 48.8 % (42-78); TOTAL CELLS COUNTED % (AUTO) 100 %; WHITE BLOOD COUNT 10.6 10^3/uL (4.0-10.5)
[2017-11-09 04:24] LABS: ALANINE AMINOTRANSFERASE 22 U/L (9-52); ALBUMIN 3.4 g/dL (3.5-5.0); ALKALINE PHOSPHATASE 95 U/L (38-126); ANION GAP 9 (5-19); ASPARTATE AMINO TRANSFERASE 19 U/L (14-36); BILIRUBIN,DIRECT 0.1 mg/dL (0.0-0.4); BILIRUBIN,TOTAL 0.2 mg/dL (0.2-1.3); BLOOD UREA NITROGEN 29 mg/dL (7-20); CALCIUM 10.3 mg/dL (8.4-10.2); CARBON DIOXIDE 24 mmol/L (22-30); CHLORIDE 114 mmol/L (98-107); GLUCOSE 159 mg/dL (75-110); PHOSPHORUS 2.5 mg/dL (2.5-4.5); POTASSIUM 3.1 mmol/L (3.6-5.0); SODIUM 147.4 mmol/L (137-145); TOTAL PROTEIN 6.5 g/dL (6.3-8.2)
[2017-11-09 06:24] LABS: ARTERIAL BLOOD BASE EXCESS 0.6 mmol/L; ARTERIAL BLOOD FIO2 35%; ARTERIAL BLOOD HCO3 25.7 mmol/L (20-26); ARTERIAL BLOOD O2 SATURATION 98.5 % (94-98); ARTERIAL BLOOD PCO2 43.3 mmHg (35-45); ARTERIAL BLOOD PH 7.39 (7.35-7.45); ARTERIAL BLOOD PO2 127.3 mmHg (80-100); ARTERIAL BLOOD TOTAL CO2 27.1 mmol/L (21-25)
--- NOTE | 2017-11-09 07:23 | RADIOLOGY REPORT (SQ) ---
EXAM DESCRIPTION: CHEST SINGLE VIEW CLINICAL HISTORY: 82 years, Female, resp failure COMPARISON: 11/08/17. NUMBER OF VIEWS: 1 LIMITATIONS: None. FINDINGS: Moderate lung volume, small bibasilar opacity-effusion, normal cardiac silhouette, atherosclerosis, tracheostomy tube, no pneumothorax, no acute bone findings. IMPRESSION: No significant change.
[2017-11-09] MEDS: TOBRAMYCIN SULFATE NEB 40 MG/ML 30 ML NEB SCH ×2 (08:10→19:43)
[2017-11-09] MEDS: ALBUTEROL SULFATE 0.083% NEB 2.5 MG/3 ML AMPUL NEB PRN ×2 (08:12→19:43)
[2017-11-09] MEDS: LOSARTAN POTASSIUM 25 MG TABLET PEG SCH (12:16)
[2017-11-09] MEDS: ASPIRIN 81 MG TABLET, CHEWABLE PEG SCH (12:17)
[2017-11-09] MEDS: AMLODIPINE BESYLATE 10 MG TABLET PEG SCH (12:17)
[2017-11-09] MEDS: ASCORBIC ACID 500 MG TABLET PEG SCH (12:17)
[2017-11-09] MEDS: MEMANTINE HCL 10 MG TABLET PEG SCH (12:19)
[2017-11-09] MEDS: ENOXAPARIN SODIUM INJ 40 MG/0.4 ML DISP.SYRIN SUBCUT SCH (12:21)
[2017-11-09 13:09] LABS: ARTERIAL BLOOD BASE EXCESS -0.1 mmol/L; ARTERIAL BLOOD HCO3 23.9 mmol/L (20-26); ARTERIAL BLOOD O2 SATURATION 98.8 % (94-98); ARTERIAL BLOOD PCO2 36.5 mmHg (35-45); ARTERIAL BLOOD PH 7.43 (7.35-7.45); ARTERIAL BLOOD PO2 133.9 mmHg (80-100)
[2017-11-09 13:10] LABS: ARTERIAL BLOOD FIO2 35%
--- NOTE | 2017-11-09 18:42 | PDOC PROGRESS REPORT ---
Subjective Progress Note for:: 11/09/17 Subjective:: She has polymicrobial infection affecting multiple body parts including sputum culture secretion from the eyes, the wound, the urine, she has MRSA from the eye secretion, Citrobacter in the urine she has C. difficile colitis Reason For Visit: ACUTE HYPERCAPNIC RESPIRATORY FAILURE,CO2 NARCOSIS Physical Exam Vital Signs: Temp Pulse Resp BP Pulse Ox 98.8 F 75 17 130/55 H 100 11/09/17 16:00 11/09/17 16:00 11/09/17 16:00 11/09/17 16:00 11/09/17 16:57 Intake & Output 11/08/17 11/09/17 11/10/17 06:59 06:59 06:59 Intake Total 1519 2446 Output Total 305 1420 515 Balance 1214 1026 -515 Weight 60.9 kg 62.5 kg General appearance: PRESENT: no acute distress Eye exam: PRESENT: PERRLA Respiratory exam: PRESENT: clear to auscultation monica Cardiovascular exam: PRESENT: +S1, +S2 GI/Abdominal exam: PRESENT: soft Neurological exam: PRESENT: alert Results Laboratory Results: 11/09/17 03:50 11/09/17 03:50 11/09/17 11/09/17 11/09/17 03:50 03:50 06:10 WBC 10.6 H RBC 3.46 L Hgb 10.2 L Hct 31.0 L MCV 90 MCH 29.4 MCHC 32.8 RDW 15.5 H Plt Count 379 Seg Neutrophils % 48.8 Lymphocytes % 26.0 Monocytes % 10.4 Eosinophils % 13.4 H Basophils % 1.4 Absolute Neutrophils 5.2 Absolute Lymphocytes 2.8 Absolute Monocytes 1.1 Absolute Eosinophils 1.4 H Absolute Basophils 0.1 Carbonic Acid 1.30 HCO3/H2CO3 Ratio 19:1 ABG pH 7.39 ABG pCO2 43.3 ABG pO2 127.3 H ABG HCO3 25.7 ABG O2 Saturation 98.5 H ABG Base Excess 0.6 FiO2 35% Sodium 147.4 H Potassium 3.1 L Chloride 114 H Carbon Dioxide 24 Anion Gap 9 BUN 29 H Creatinine 0.73 Est GFR ( Amer) > 60 Est GFR (Non-Af Amer) > 60 Glucose 159 H Calcium 10.3 H Phosphorus 2.5 Magnesium 2.1 Total Bilirubin 0.2 AST 19 ALT 22 Alkaline Phosphatase 95 Total Protein 6.5 Albumin 3.4 L 11/09/17 13:00 WBC RBC Hgb Hct MCV MCH MCHC RDW Plt Count Seg Neutrophils % Lymphocytes % Monocytes % Eosinophils % Basophils % Absolute Neutrophils Absolute Lymphocytes Absolute Monocytes Absolute Eosinophils Absolute Basophils Carbonic Acid 1.10 HCO3/H2CO3 Ratio 21:1 ABG pH 7.43 ABG pCO2 36.5 ABG pO2 133.9 H ABG HCO3 23.9 ABG O2 Saturation 98.8 H ABG Base Excess -0.1 FiO2 35% Sodium Potassium Chloride Carbon Dioxide Anion Gap BUN Creatinine Est GFR ( Amer) Est GFR (Non-Af Amer) Glucose Calcium Phosphorus Magnesium Total Bilirubin AST ALT Alkaline Phosphatase Total Protein Albumin 11/07/17 16:15 Foot - Left Gram Stain - Final 11/07/17 16:15 Foot - Left Wound Culture - Final Mrsa (Meth Resis Staph Aureus) 11/07/17 16:15 Eye - Drainage Gram Stain - Final 11/07/17 16:15 Eye - Drainage Eye Culture - Final Mrsa (Meth Resis Staph Aureus) 11/07/17 20:11 Catheterized Urine Urine Culture - Final Citrobacter Freundii 11/07/17 11/07/17 11/07/17 10:00 15:55 22:25 CK-MB (CK-2) 0.92 0.63 0.52 Troponin I < 0.012 < 0.012 < 0.012 NT-Pro-B Natriuret Pep 11/08/17 11/09/17 03:48 03:50 CK-MB (CK-2) Troponin I NT-Pro-B Natriuret Pep 697 H 856 H Impressions: Head CT 11/07/17 03:42 IMPRESSION: 1. No acute intracranial abnormality by CT criteria. This exam was performed according to our departmental dose-optimization program, which includes automated exposure control, adjustment of the mA and/or kV according to patient size and/or use of iterative reconstruction technique. Chest X-Ray 11/09/17 06:00 IMPRESSION: No significant change. Assessment & Plan - Diagnosis (1) Acute hypercapnic respiratory failure Is this a current diagnosis for this admission?: Yes Plan: Patient still on mechanical ventilation (2) Tracheostomy dependence Is this a current diagnosis for this admission?: Yes (3) Pressure ulcer of left heel, stage 4 Is this a current diagnosis for this admission?: Yes (4) Primary hyperparathyroidism Is this a current diagnosis for this admission?: Yes (5) Metabolic encephalopathy Is this a current diagnosis for this admission?: Yes (6) Gram-negative pneumonia Is this a current diagnosis for this admission?: Yes (7) Pseudomonas pneumonia Qualifiers: Laterality: unspecified laterality Is this a current diagnosis for this admission?: Yes (8) MRSA (methicillin resistant Staphylococcus aureus) infection Is this a current diagnosis for this admission?: Yes Plan: The MRSA sensitive to Bactrim (9) Infection due to Citrobacter Is this a current diagnosis for this admission?: Yes (10) Urinary tract infection Qualifiers: Urinary tract infection type: site unspecified Hematuria presence: without hematuria Qualified Code(s): N39.0 - Urinary tract infection, site not specified Is this a current diagnosis for this admission?: Yes Plan: She had a UTI due to Citrobacter sensitive to ertapenem, Bactrim (11) Clostridium difficile diarrhea Is this a current diagnosis for this admission?: Yes Plan: Patient on vancomycin
[2017-11-09] MEDS: ERTAPENEM SODIUM 1 GM in NORMAL SALINE 100 ML IV SCH (18:45)
[2017-11-09] MEDS ORDERED: SULFAMETHOXAZOLE/TRIMETHOPRIM 800-160 MG TABLET PO ONE (20:00)
[2017-11-09] MEDS ORDERED: POTASSIUM CHLORIDE 20 MEQ/15 ML UDCUP ONE (21:01)
[2017-11-10] MEDS: VANCOMYCIN HCL INJ 500 MG VIAL PEG SCH ×4 (00:56→18:28)
[2017-11-10 04:17] LABS: ABSOLUTE BASOPHILS # (AUTO) 0.1 10^3/uL (0.0-0.2); ABSOLUTE EOSINOPHILS # (AUTO) 1.2 10^3/uL (0.0-0.6); ABSOLUTE LYMPHOCYTES (AUTO) 1.6 10^3/uL (0.5-4.7); ABSOLUTE MONOCYTES (AUTO) 1.1 10^3/uL (0.1-1.4); BASOPHILS % (AUTO) 1.1 % (0-2); EOSINOPHILS % (AUTO) 8.9 % (0-6); HEMATOCRIT 28.9 % (36.0-47.0); HEMOGLOBIN 9.4 g/dL (12.0-15.5); LYMPHOCYTES % (AUTO) 12.5 % (13-45); MEAN CORPUSCULAR HEMOGLOBIN 29.5 pg (27.0-33.4); MEAN CORPUSCULAR HGB CONC 32.6 g/dL (32.0-36.0); MEAN CORPUSCULAR VOLUME 91 fl (80-97); MONOCYTES % (AUTO) 8.7 % (3-13); PLATELET COUNT 367 10^3/uL (150-450); RED BLOOD COUNT 3.19 10^6/uL (3.72-5.28); SEGMENTED NEUTROPHILS % (AUTO) 68.8 % (42-78); TOTAL CELLS COUNTED % (AUTO) 100 %; WHITE BLOOD COUNT 13.1 10^3/uL (4.0-10.5)
[2017-11-10 04:36] LABS: ALANINE AMINOTRANSFERASE 26 U/L (9-52); ALKALINE PHOSPHATASE 79 U/L (38-126); ANION GAP 9 (5-19); ASPARTATE AMINO TRANSFERASE 19 U/L (14-36); BILIRUBIN,DIRECT 0.2 mg/dL (0.0-0.4); BILIRUBIN,TOTAL 0.2 mg/dL (0.2-1.3); BLOOD UREA NITROGEN 24 mg/dL (7-20); CALCIUM 10.3 mg/dL (8.4-10.2); CARBON DIOXIDE 22 mmol/L (22-30); CHLORIDE 119 mmol/L (98-107); GLUCOSE 189 mg/dL (75-110); SODIUM 149.6 mmol/L (137-145); TOTAL PROTEIN 6.5 g/dL (6.3-8.2)
[2017-11-10 06:08] LABS: ARTERIAL BLOOD BASE EXCESS 0.2 mmol/L; ARTERIAL BLOOD H2CO3 1.33 mmol/L (1.05-1.35); ARTERIAL BLOOD HCO3 25.4 mmol/L (20-26); ARTERIAL BLOOD O2 SATURATION 98.2 % (94-98); ARTERIAL BLOOD PCO2 44.1 mmHg (35-45); ARTERIAL BLOOD PH 7.38 (7.35-7.45); ARTERIAL BLOOD PO2 119.1 mmHg (80-100); ARTERIAL BLOOD TOTAL CO2 26.8 mmol/L (21-25)
[2017-11-10 06:09] LABS: ARTERIAL BLOOD FIO2 35%
--- NOTE | 2017-11-10 08:16 | RADIOLOGY REPORT (SQ) ---
EXAM DESCRIPTION: CHEST SINGLE VIEW COMPLETED DATE/TIME: 11/10/2017 6:56 am REASON FOR STUDY: pna COMPARISON: 11/09/2017. EXAM PARAMETERS: NUMBER OF VIEWS: One view. TECHNIQUE: Single frontal radiographic view of the chest acquired. RADIATION DOSE: NA LIMITATIONS: None. FINDINGS: LUNGS AND PLEURA: There are bibasilar infiltrates or atelectasis. Bilateral pleural thick ening. MEDIASTINUM AND HILAR STRUCTURES: No masses. Contour normal. HEART AND VASCULAR STRUCTURES: The heart is normal with aortic atherosclerosis. The pulmonary vascul ature is normal. BONES: Dorsal spondylosis with scoliosis convex right. HARDWARE: Tracheostomy tube in place. OTHER: Chest leads noted. IMPRESSION: No significant interval change. TECHNICAL DOCUMENTATION: JOB ID: [id number] [employer]- All Rights Reserved
[2017-11-10] MEDS: ALBUTEROL SULFATE 0.083% NEB 2.5 MG/3 ML AMPUL NEB PRN (08:47)
[2017-11-10] MEDS: TOBRAMYCIN SULFATE NEB 40 MG/ML 30 ML NEB SCH ×2 (08:47→19:45)
[2017-11-10] MEDS: NORMAL SALINE 1000 ML 1,000 ML IV PRN (10:40)
[2017-11-10] MEDS: ENOXAPARIN SODIUM INJ 40 MG/0.4 ML DISP.SYRIN SUBCUT SCH (10:42)
[2017-11-10] MEDS: ASCORBIC ACID 500 MG TABLET PEG SCH (10:43)
[2017-11-10] MEDS: ASPIRIN 81 MG TABLET, CHEWABLE PEG SCH (10:43)
[2017-11-10] MEDS: LOSARTAN POTASSIUM 25 MG TABLET PEG SCH (10:43)
[2017-11-10] MEDS: MEMANTINE HCL 10 MG TABLET PEG SCH (10:44)
[2017-11-10] MEDS: SULFAMETHOXAZOLE/TRIMETHOPRIM 800-160 MG TABLET PO SCH ×2 (10:44→22:28)
[2017-11-10] MEDS: AMLODIPINE BESYLATE 10 MG TABLET PEG SCH (10:44)
[2017-11-10] MEDS: ERTAPENEM SODIUM 1 GM in NORMAL SALINE 100 ML IV SCH (18:29)
--- NOTE | 2017-11-10 21:15 | PDOC PROGRESS REPORT ---
Subjective Progress Note for:: 11/10/17 Subjective:: She was seen by the bedside she has polymicrobial infection with MRSA,, Pseudomonas, Citrobacter, Clostridium difficile toxemia presently on appropriate antibiotic, she vomited today tube feed on hold Reason For Visit: ACUTE HYPERCAPNIC RESPIRATORY FAILURE,CO2 NARCOSIS Physical Exam Vital Signs: Temp Pulse Resp BP Pulse Ox 98.8 F 74 10 L 156/84 H 100 11/10/17 19:40 11/10/17 19:46 11/10/17 19:46 11/10/17 18:20 11/10/17 19:46 Intake & Output 11/09/17 11/10/17 11/11/17 06:59 06:59 06:59 Intake Total 2446 2357 790 Output Total 1420 1050 955 Balance 1026 1307 -165 Weight 62.5 kg General appearance: PRESENT: no acute distress Eye exam: PRESENT: PERRLA Respiratory exam: PRESENT: clear to auscultation monica Cardiovascular exam: PRESENT: +S1, +S2 Results Laboratory Results: 11/10/17 04:01 11/10/17 04:01 11/10/17 11/10/17 11/10/17 04:01 04:01 05:30 WBC 13.1 H RBC 3.19 L Hgb 9.4 L Hct 28.9 L MCV 91 MCH 29.5 MCHC 32.6 RDW 16.0 H Plt Count 367 Seg Neutrophils % 68.8 Lymphocytes % 12.5 L Monocytes % 8.7 Eosinophils % 8.9 H Basophils % 1.1 Absolute Neutrophils 9.0 H Absolute Lymphocytes 1.6 Absolute Monocytes 1.1 Absolute Eosinophils 1.2 H Absolute Basophils 0.1 Carbonic Acid 1.33 HCO3/H2CO3 Ratio 19:1 ABG pH 7.38 ABG pCO2 44.1 ABG pO2 119.1 H ABG HCO3 25.4 ABG O2 Saturation 98.2 H ABG Base Excess 0.2 FiO2 35% Sodium 149.6 H Potassium 4.0 Chloride 119 H Carbon Dioxide 22 Anion Gap 9 BUN 24 H Creatinine 0.67 Est GFR ( Amer) > 60 Est GFR (Non-Af Amer) > 60 Glucose 189 H Calcium 10.3 H Magnesium 2.0 Total Bilirubin 0.2 AST 19 ALT 26 Alkaline Phosphatase 79 Total Protein 6.5 Albumin 3.0 L 11/07/17 16:15 Trach Site Gram Stain - Final 11/07/17 16:15 G Tube (Peg Tube) Gram Stain - Final 11/07/17 16:15 G Tube (Peg Tube) Wound Culture - Final Mrsa (Meth Resis Staph Aureus) Enterobacter Aerogenes Skin Nan 11/07/17 20:11 Tracheal Aspirate Gram Stain - Final 11/07/17 20:11 Tracheal Aspirate Sputum Culture - Final Pseudomonas Aeruginosa Greatly Reduced Normal Nan 11/07/17 11/07/17 11/07/17 10:00 15:55 22:25 CK-MB (CK-2) 0.92 0.63 0.52 Troponin I < 0.012 < 0.012 < 0.012 NT-Pro-B Natriuret Pep 11/08/17 11/09/17 11/10/17 03:48 03:50 04:01 CK-MB (CK-2) Troponin I NT-Pro-B Natriuret Pep 697 H 856 H 1150 H Impressions: Head CT 11/07/17 03:42 IMPRESSION: 1. No acute intracranial abnormality by CT criteria. This exam was performed according to our departmental dose-optimization program, which includes automated exposure control, adjustment of the mA and/or kV according to patient size and/or use of iterative reconstruction technique. Chest X-Ray 11/10/17 06:00 IMPRESSION: No significant interval change. Assessment & Plan - Diagnosis (1) Acute hypercapnic respiratory failure Is this a current diagnosis for this admission?: Yes (2) Tracheostomy dependence Is this a current diagnosis for this admission?: Yes (3) Pressure ulcer of left heel, stage 4 Is this a current diagnosis for this admission?: Yes (4) Primary hyperparathyroidism Is this a current diagnosis for this admission?: Yes (5) Metabolic encephalopathy Is this a current diagnosis for this admission?: Yes - Plan Summary Plan Summary: She will continue present treatment, continue mechanical ventilation
[2017-11-11] MEDS: VANCOMYCIN HCL INJ 500 MG VIAL PEG SCH ×5 (00:56→23:27)
[2017-11-11] MEDS ORDERED: ONDANSETRON HCL INJ/PF 4 MG/2 ML SDV ONE (07:56)
[2017-11-11] MEDS: TOBRAMYCIN SULFATE NEB 40 MG/ML 30 ML NEB SCH ×2 (08:30→20:15)
[2017-11-11] MEDS: ALBUTEROL SULFATE 0.083% NEB 2.5 MG/3 ML AMPUL NEB PRN (08:30)
[2017-11-11] MEDS ORDERED: ONDANSETRON HCL INJ/PF 4 MG/2 ML SDV IV PRN (08:42)
[2017-11-11 10:36] LABS: GLUCOSE 117 mg/dL (75-110); LDH 347 U/L (313-618)
[2017-11-11] MEDS: SULFAMETHOXAZOLE/TRIMETHOPRIM 800-160 MG TABLET PO SCH ×2 (12:26→21:08)
[2017-11-11] MEDS: ASPIRIN 81 MG TABLET, CHEWABLE PEG SCH (12:26)
[2017-11-11] MEDS: AMLODIPINE BESYLATE 10 MG TABLET PEG SCH (12:26)
[2017-11-11] MEDS: ASCORBIC ACID 500 MG TABLET PEG SCH (12:26)
[2017-11-11] MEDS: MEMANTINE HCL 10 MG TABLET PEG SCH (12:26)
[2017-11-11] MEDS: LOSARTAN POTASSIUM 25 MG TABLET PEG SCH (12:26)
[2017-11-11] MEDS: ENOXAPARIN SODIUM INJ 40 MG/0.4 ML DISP.SYRIN SUBCUT SCH (13:09)
--- NOTE | 2017-11-11 14:30 | RADIOLOGY REPORT (SQ) ---
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 TECHNIQUE: Dynamic and static grayscale images acquired of the localized site of clinical concern an d recorded on PACS. Additional selected color Doppler and spectral images recorded. SITE OF CONCERN: Right pleural space. LIMITATIONS: None. FINDINGS: Insufficient volume of pleural fluid for safe ultrasound-guided thoracentesis. IMPRESSION: Insufficient pleural fluid volume. TECHNICAL DOCUMENTATION: JOB ID: [id number] [email or web address]- All Rights Reserved
[2017-11-11] MEDS: ERTAPENEM SODIUM 1 GM in NORMAL SALINE 100 ML IV SCH (17:56)
[2017-11-11] MEDS: NORMAL SALINE 1000 ML 1,000 ML IV PRN (17:58)
--- NOTE | 2017-11-11 21:23 | PDOC PROGRESS REPORT ---
Subjective Progress Note for:: 11/11/17 Subjective:: She was seen by the bedside patient's daughter is suggesting a transfer to [facility] in [place]. She is still vomiting still n.p.o. Reason For Visit: ACUTE HYPERCAPNIC RESPIRATORY FAILURE,CO2 NARCOSIS Physical Exam Vital Signs: Temp Pulse Resp BP Pulse Ox 98.6 F 83 19 126/93 H 100 11/11/17 18:16 11/11/17 12:00 11/11/17 18:16 11/11/17 18:16 11/11/17 18:16 Intake & Output 11/10/17 11/11/17 11/12/17 06:59 06:59 06:59 Intake Total 2357 1636 758 Output Total 1050 1415 750 Balance 1307 221 8 Weight 63.4 kg General appearance: PRESENT: no acute distress Eye exam: PRESENT: PERRLA Respiratory exam: PRESENT: clear to auscultation monica Cardiovascular exam: PRESENT: +S1, +S2 GI/Abdominal exam: PRESENT: soft Results Laboratory Results: 11/10/17 04:01 11/11/17 09:54 11/11/17 09:54 Glucose 117 H 11/08/17 04:50 Stool - Stool - Final 11/08/17 04:50 Stool - Stool Stool Culture - Final NO SALMONELLA, SHIGELLA, CAMPYLOBACTER, OR E.COLI 0157 RECOVERED. NEGATIVE FOR SHIGA TOXINS 1&2. 11/07/17 16:15 Trach Site Gram Stain - Final 11/07/17 16:15 Trach Site Wound Culture - Final Pseudomonas Aeruginosa Mrsa (Meth Resis Staph Aureus) Citrobacter Freundii Skin Nan 11/07/17 11/07/17 11/07/17 10:00 15:55 22:25 CK-MB (CK-2) 0.92 0.63 0.52 Troponin I < 0.012 < 0.012 < 0.012 NT-Pro-B Natriuret Pep 11/08/17 11/09/17 11/10/17 03:48 03:50 04:01 CK-MB (CK-2) Troponin I NT-Pro-B Natriuret Pep 697 H 856 H 1150 H Impressions: Head CT 11/07/17 03:42 IMPRESSION: 1. No acute intracranial abnormality by CT criteria. This exam was performed according to our departmental dose-optimization program, which includes automated exposure control, adjustment of the mA and/or kV according to patient size and/or use of iterative reconstruction technique. Chest X-Ray 11/10/17 06:00 IMPRESSION: No significant interval change. Chest Ultrasound 11/11/17 08:28 IMPRESSION: Insufficient pleural fluid volume. Assessment & Plan - Diagnosis (1) Acute hypercapnic respiratory failure Is this a current diagnosis for this admission?: Yes (2) Tracheostomy dependence Is this a current diagnosis for this admission?: Yes (3) Pressure ulcer of left heel, stage 4 Is this a current diagnosis for this admission?: Yes (4) Primary hyperparathyroidism Is this a current diagnosis for this admission?: Yes (5) Metabolic encephalopathy Is this a current diagnosis for this admission?: Yes - Plan Summary Plan Summary: Continue treatment
[2017-11-12] MEDS: VANCOMYCIN HCL INJ 500 MG VIAL PEG SCH ×3 (07:01→18:08)
[2017-11-12 07:25] LABS: ARTERIAL BLOOD BASE EXCESS -3.2 mmol/L; ARTERIAL BLOOD H2CO3 1.09 mmol/L (1.05-1.35); ARTERIAL BLOOD HCO3 21.4 mmol/L (20-26); ARTERIAL BLOOD O2 SATURATION 97.9 % (94-98); ARTERIAL BLOOD PCO2 36.3 mmHg (35-45); ARTERIAL BLOOD PH 7.39 (7.35-7.45); ARTERIAL BLOOD PO2 106.9 mmHg (80-100); ARTERIAL BLOOD TOTAL CO2 22.5 mmol/L (21-25)
[2017-11-12 07:26] LABS: ARTERIAL BLOOD FIO2 30%
--- NOTE | 2017-11-12 07:56 | RADIOLOGY REPORT (SQ) ---
EXAM DESCRIPTION: CHEST SINGLE VIEW CLINICAL HISTORY: 82 years Female, resp fail COMPARISON: 11/10/17. NUMBER OF VIEWS/TECHNIQUE: 1/AP LIMITATIONS: None. FINDINGS: Small bibasilar opacity-effusion, moderate lung volume, normal cardiac silhouette, atherosclerosis, and tracheostomy. No pneumothorax. No acute bone defect. IMPRESSION: Interval worsening includes small bibasilar opacity-effusion.
[2017-11-12 08:29] LABS: ANION GAP 8 (5-19); BLOOD UREA NITROGEN 18 mg/dL (7-20); CALCIUM 10.7 mg/dL (8.4-10.2); CARBON DIOXIDE 21 mmol/L (22-30); CHLORIDE 122 mmol/L (98-107); GLUCOSE 83 mg/dL (75-110); POTASSIUM 3.9 mmol/L (3.6-5.0); SODIUM 151.4 mmol/L (137-145)
[2017-11-12 09:11] LABS: HEMATOCRIT 30.4 % (36.0-47.0); HEMOGLOBIN 10.1 g/dL (12.0-15.5); MEAN CORPUSCULAR HEMOGLOBIN 30.1 pg (27.0-33.4); MEAN CORPUSCULAR HGB CONC 33.3 g/dL (32.0-36.0); MEAN CORPUSCULAR VOLUME 90 fl (80-97); PLATELET COUNT 342 10^3/uL (150-450); RED BLOOD COUNT 3.36 10^6/uL (3.72-5.28); RED CELL DISTRIBUTION WIDTH 15.8 % (11.5-14.0); WHITE BLOOD COUNT 8.7 10^3/uL (4.0-10.5)
[2017-11-12] MEDS: TOBRAMYCIN SULFATE NEB 40 MG/ML 30 ML NEB SCH ×2 (09:17→19:45)
[2017-11-12] MEDS: ALBUTEROL SULFATE 0.083% NEB 2.5 MG/3 ML AMPUL NEB PRN ×2 (09:17→19:45)
[2017-11-12 09:18] LABS: ABSOLUTE LYMPHOCYTES# (MANUAL) 2.3 10^3/uL (0.5-4.7); ABSOLUTE MONOCYTES # (MANUAL) 0.3 10^3/uL (0.1-1.4); ABSOLUTE NEUTROPHILS# (MANUAL) 4.1 10^3/uL (1.7-8.2); BASOPHILS % (MANUAL) 1 % (0-2); EOSINOPHILS % (MANUAL) 23 % (0-6); LYMPHOCYTES % (MANUAL) 26 % (13-45); MONOCYTES % (MANUAL) 3 % (3-13); SEGMENTED NEUTROPHILS % (MAN) 47 % (42-78); TOTAL CELLS COUNTED 100
[2017-11-12 09:20] LABS: ANISOCYTOSIS SLIGHT; PLATELET COMMENT ADEQUATE; POLYCHROMASIA SLIGHT
--- NOTE | 2017-11-12 10:43 | PDOC PROGRESS REPORT ---
Subjective Progress Note for:: 11/12/17 Subjective:: No more diarrhea or vomiting. PEG tube usage total on hold except for vancomycin administration. No reported fever or difficulty with breathing. Reason For Visit: ACUTE HYPERCAPNIC RESPIRATORY FAILURE,CO2 NARCOSIS Physical Exam Vital Signs: Temp Pulse Resp BP Pulse Ox 97.5 F 53 L 10 L 132/59 H 100 11/12/17 08:00 11/12/17 08:00 11/12/17 08:00 11/12/17 08:00 11/12/17 08:00 Intake & Output 11/11/17 11/12/17 11/13/17 06:59 06:59 06:59 Intake Total 1636 1598 Output Total 1415 1300 75 Balance 221 298 -75 Weight 63.4 kg 63.7 kg General appearance: PRESENT: no acute distress Head exam: PRESENT: atraumatic, normocephalic Eye exam: PRESENT: conjunctiva pink, EOMI, PERRLA. ABSENT: scleral icterus Mouth exam: PRESENT: moist - fairly Neck exam: PRESENT: tracheostomy Respiratory exam: PRESENT: clear to auscultation monica, decreased breath sounds - at lung bases Cardiovascular exam: PRESENT: RRR. ABSENT: diastolic murmur, rubs, systolic murmur GI/Abdominal exam: PRESENT: normal bowel sounds, other - PEG site satisfactory. ABSENT: ascites, organolmegaly Extremities exam: ABSENT: pedal edema Musculoskeletal exam: PRESENT: deformity - related to multiple joints involvement with arthritis Neurological exam: PRESENT: alert - and cooperative with examination, awake Skin exam: PRESENT: dry, warm Results Laboratory Results: 11/12/17 08:00 11/12/17 08:00 11/11/17 11/12/17 11/12/17 09:54 07:00 08:00 WBC 8.7 RBC 3.36 L Hgb 10.1 L Hct 30.4 L MCV 90 MCH 30.1 MCHC 33.3 RDW 15.8 H Plt Count 342 Seg Neutrophils % Not Reportable Lymphocytes % Not Reportable Monocytes % Not Reportable Eosinophils % Not Reportable Basophils % Not Reportable Absolute Neutrophils Not Reportable Absolute Lymphocytes Not Reportable Absolute Monocytes Not Reportable Absolute Eosinophils Not Reportable Absolute Basophils Not Reportable Carbonic Acid 1.09 HCO3/H2CO3 Ratio 19:1 ABG pH 7.39 ABG pCO2 36.3 ABG pO2 106.9 H ABG HCO3 21.4 ABG O2 Saturation 97.9 ABG Base Excess -3.2 FiO2 30% Sodium Potassium Chloride Carbon Dioxide Anion Gap BUN Creatinine Est GFR ( Amer) Est GFR (Non-Af Amer) Glucose 117 H Calcium 11/12/17 08:00 WBC RBC Hgb Hct MCV MCH MCHC RDW Plt Count Seg Neutrophils % Lymphocytes % Monocytes % Eosinophils % Basophils % Absolute Neutrophils Absolute Lymphocytes Absolute Monocytes Absolute Eosinophils Absolute Basophils Carbonic Acid HCO3/H2CO3 Ratio ABG pH ABG pCO2 ABG pO2 ABG HCO3 ABG O2 Saturation ABG Base Excess FiO2 Sodium 151.4 H Potassium 3.9 Chloride 122 H Carbon Dioxide 21 L Anion Gap 8 BUN 18 Creatinine 0.77 Est GFR ( Amer) > 60 Est GFR (Non-Af Amer) > 60 Glucose 83 Calcium 10.7 H 11/08/17 04:50 Stool - Stool - Final 11/08/17 04:50 Stool - Stool Stool Culture - Final NO SALMONELLA, SHIGELLA, CAMPYLOBACTER, OR E.COLI 0157 RECOVERED. NEGATIVE FOR SHIGA TOXINS 1&2. 11/07/17 16:15 Trach Site Gram Stain - Final 11/07/17 16:15 Trach Site Wound Culture - Final Pseudomonas Aeruginosa Mrsa (Meth Resis Staph Aureus) Citrobacter Freundii Skin Nan 11/07/17 11/07/17 11/07/17 10:00 15:55 22:25 CK-MB (CK-2) 0.92 0.63 0.52 Troponin I < 0.012 < 0.012 < 0.012 NT-Pro-B Natriuret Pep 11/08/17 11/09/17 11/10/17 03:48 03:50 04:01 CK-MB (CK-2) Troponin I NT-Pro-B Natriuret Pep 697 H 856 H 1150 H Impressions: Head CT 11/07/17 03:42 IMPRESSION: 1. No acute intracranial abnormality by CT criteria. This exam was performed according to our departmental dose-optimization program, which includes automated exposure control, adjustment of the mA and/or kV according to patient size and/or use of iterative reconstruction technique. Chest Ultrasound 11/11/17 08:28 IMPRESSION: Insufficient pleural fluid volume. Chest X-Ray 11/12/17 06:00 IMPRESSION: Interval worsening includes small bibasilar opacity-effusion. Assessment & Plan - Diagnosis (1) Acute hypercapnic respiratory failure Is this a current diagnosis for this admission?: Yes Plan: Continue current management (2) Metabolic encephalopathy Is this a current diagnosis for this admission?: Yes Plan: Continue current management (3) Pressure ulcer of left heel, stage 4 Is this a current diagnosis for this admission?: Yes Plan: Continue current management (4) Primary hyperparathyroidism Is this a current diagnosis for this admission?: Yes Plan: Continue current management (5) Clostridium difficile colitis Is this a current diagnosis for this admission?: Yes Plan: Continue current management. Restart on enteral tube feeding. - Time Time Spent with patient: 25-34 minutes Medications reviewed and adjusted accordingly: Yes Anticipated discharge: Other Within: Other - Inpatient Certification Based on my medical assessment, after consideration of the patient's comorbidities, presenting symptoms, or acuity I expect that the services needed warrant INPATIENT care.: Yes I certify that my determination is in accordance with my understanding of Medicare's requirements for reasonable and necessary INPATIENT services [42 CFR 412.3e].: Yes Medical Necessity: Need Close Monitoring Due to Risk of Patient Decompensation, Need For IV Fluids, Need For Continuous Telemetry Monitoring, Need for IV Antibiotics, Risk of Complication if Not Cared For in Hospital Post Hospital Care: D/C or Transfer Summary - Plan Summary Plan Summary: See covering attending physician orders.
[2017-11-12] MEDS: ASPIRIN 81 MG TABLET, CHEWABLE PEG SCH (11:58)
[2017-11-12] MEDS: ASCORBIC ACID 500 MG TABLET PEG SCH (11:58)
[2017-11-12] MEDS: MEMANTINE HCL 10 MG TABLET PEG SCH (11:58)
[2017-11-12] MEDS: LOSARTAN POTASSIUM 25 MG TABLET PEG SCH (11:59)
[2017-11-12] MEDS: SULFAMETHOXAZOLE/TRIMETHOPRIM 800-160 MG TABLET PO SCH ×2 (11:59→22:13)
[2017-11-12] MEDS: ENOXAPARIN SODIUM INJ 40 MG/0.4 ML DISP.SYRIN SUBCUT SCH (11:59)
[2017-11-12] MEDS: AMLODIPINE BESYLATE 10 MG TABLET PEG SCH (11:59)
[2017-11-12] MEDS: ERTAPENEM SODIUM 1 GM in NORMAL SALINE 100 ML IV SCH (18:04)
[2017-11-12] MEDS: NORMAL SALINE 1000 ML 1,000 ML IV PRN (22:52)
[2017-11-13] MEDS: VANCOMYCIN HCL INJ 500 MG VIAL PEG SCH ×4 (00:45→18:54)
[2017-11-13 04:18] LABS: ABSOLUTE BASOPHILS # (AUTO) 0.2 10^3/uL (0.0-0.2); ABSOLUTE EOSINOPHILS # (AUTO) 1.1 10^3/uL (0.0-0.6); ABSOLUTE LYMPHOCYTES (AUTO) 2.3 10^3/uL (0.5-4.7); ABSOLUTE MONOCYTES (AUTO) 0.8 10^3/uL (0.1-1.4); ABSOLUTE NEUT (AUTO) 4.3 10^3/uL (1.7-8.2); BASOPHILS % (AUTO) 2.4 % (0-2); HEMATOCRIT 28.3 % (36.0-47.0); HEMOGLOBIN 9.4 g/dL (12.0-15.5); LYMPHOCYTES % (AUTO) 26.1 % (13-45); MEAN CORPUSCULAR HEMOGLOBIN 29.7 pg (27.0-33.4); MEAN CORPUSCULAR HGB CONC 33.3 g/dL (32.0-36.0); MEAN CORPUSCULAR VOLUME 89 fl (80-97); MONOCYTES % (AUTO) 9.1 % (3-13); PLATELET COUNT 322 10^3/uL (150-450); RED BLOOD COUNT 3.17 10^6/uL (3.72-5.28); RED CELL DISTRIBUTION WIDTH 15.7 % (11.5-14.0); SEGMENTED NEUTROPHILS % (AUTO) 49.4 % (42-78); TOTAL CELLS COUNTED % (AUTO) 100 %; WHITE BLOOD COUNT 8.8 10^3/uL (4.0-10.5)
[2017-11-13 04:39] LABS: ANION GAP 6 (5-19); BLOOD UREA NITROGEN 18 mg/dL (7-20); CALCIUM 10.1 mg/dL (8.4-10.2); CARBON DIOXIDE 21 mmol/L (22-30); CHLORIDE 121 mmol/L (98-107); GLUCOSE 132 mg/dL (75-110); POTASSIUM 3.6 mmol/L (3.6-5.0); SODIUM 148.1 mmol/L (137-145)
--- NOTE | 2017-11-13 07:47 | RADIOLOGY REPORT (SQ) ---
EXAM DESCRIPTION: CHEST SINGLE VIEW CLINICAL HISTORY: 82 years Female, pna COMPARISON: 2.17.18. NUMBER OF VIEWS/TECHNIQUE: 1/AP LIMITATIONS: None. FINDINGS: Moderate-low lung volume worst on the right, moderate bibasilar opacity-effusion, normal cardiac silhouette, atherosclerosis, tracheostomy tube. Prominent left skinfold artifact. No pneumothorax. No acute bone defect. IMPRESSION: No significant change.
[2017-11-13] MEDS: ALBUTEROL SULFATE 0.083% NEB 2.5 MG/3 ML AMPUL NEB PRN (08:11)
[2017-11-13] MEDS: TOBRAMYCIN SULFATE NEB 40 MG/ML 30 ML NEB SCH ×2 (08:11→21:09)
[2017-11-13] MEDS: SULFAMETHOXAZOLE/TRIMETHOPRIM 800-160 MG TABLET PO SCH (09:31)
[2017-11-13] MEDS: ASCORBIC ACID 500 MG TABLET PEG SCH (09:31)
[2017-11-13] MEDS: AMLODIPINE BESYLATE 10 MG TABLET PEG SCH (09:32)
[2017-11-13] MEDS: ASPIRIN 81 MG TABLET, CHEWABLE PEG SCH (09:33)
[2017-11-13] MEDS: ENOXAPARIN SODIUM INJ 40 MG/0.4 ML DISP.SYRIN SUBCUT SCH (09:34)
[2017-11-13] MEDS: LOSARTAN POTASSIUM 25 MG TABLET PEG SCH (09:53)
[2017-11-13] MEDS: MEMANTINE HCL 10 MG TABLET PEG SCH (09:53)
--- NOTE | 2017-11-13 10:24 | PDOC PROGRESS REPORT ---
Subjective Progress Note for:: 11/13/17 Subjective:: Patient remain vent dependent. No reported fever. Tolerating enteral tube feeding. No significant diarrhea. Reason For Visit: ACUTE HYPERCAPNIC RESPIRATORY FAILURE,CO2 NARCOSIS Physical Exam Vital Signs: Temp Pulse Resp BP Pulse Ox 97.5 F 55 L 14 150/79 H 99 11/13/17 10:00 11/13/17 08:00 11/13/17 10:00 11/13/17 09:20 11/13/17 10:00 Intake & Output 11/12/17 11/13/17 11/14/17 06:59 06:59 06:59 Intake Total 1598 2343 30 Output Total 1300 1610 75 Balance 298 733 -45 Weight 63.7 kg 65.3 kg Physical Exam: General appearance: PRESENT: no acute distress Head exam: PRESENT: atraumatic, normocephalic Eye exam: PRESENT: conjunctiva pink, EOMI, PERRLA. ABSENT: scleral icterus Mouth exam: PRESENT: moist - fairly Neck exam: PRESENT: tracheostomy Respiratory exam: PRESENT: clear to auscultation monica, decreased breath sounds - at lung bases Cardiovascular exam: PRESENT: RRR. ABSENT: diastolic murmur, rubs, systolic murmur GI/Abdominal exam: PRESENT: normal bowel sounds, other - PEG site satisfactory. ABSENT: ascites, organomegaly Extremities exam: ABSENT: pedal edema Musculoskeletal exam: PRESENT: deformity - related to multiple joints involvement with arthritis Neurological exam: PRESENT: alert - and cooperative with examination, awake Skin exam: PRESENT: dry, warm Results Laboratory Results: 11/13/17 04:10 11/13/17 04:10 11/13/17 11/13/17 04:10 04:10 WBC 8.8 RBC 3.17 L Hgb 9.4 L Hct 28.3 L MCV 89 MCH 29.7 MCHC 33.3 RDW 15.7 H Plt Count 322 Seg Neutrophils % 49.4 Lymphocytes % 26.1 Monocytes % 9.1 Eosinophils % 13.0 H Basophils % 2.4 H Absolute Neutrophils 4.3 Absolute Lymphocytes 2.3 Absolute Monocytes 0.8 Absolute Eosinophils 1.1 H Absolute Basophils 0.2 Sodium 148.1 H Potassium 3.6 Chloride 121 H Carbon Dioxide 21 L Anion Gap 6 BUN 18 Creatinine 0.75 Est GFR ( Amer) > 60 Est GFR (Non-Af Amer) > 60 Glucose 132 H Calcium 10.1 Magnesium 1.8 11/07/17 11/07/17 11/07/17 10:00 15:55 22:25 CK-MB (CK-2) 0.92 0.63 0.52 Troponin I < 0.012 < 0.012 < 0.012 NT-Pro-B Natriuret Pep 11/08/17 11/09/17 11/10/17 03:48 03:50 04:01 CK-MB (CK-2) Troponin I NT-Pro-B Natriuret Pep 697 H 856 H 1150 H Impressions: Head CT 11/07/17 03:42 IMPRESSION: 1. No acute intracranial abnormality by CT criteria. This exam was performed according to our departmental dose-optimization program, which includes automated exposure control, adjustment of the mA and/or kV according to patient size and/or use of iterative reconstruction technique. Chest Ultrasound 11/11/17 08:28 IMPRESSION: Insufficient pleural fluid volume. Chest X-Ray 11/13/17 06:00 IMPRESSION: No significant change. Assessment & Plan - Diagnosis (1) Acute hypercapnic respiratory failure Is this a current diagnosis for this admission?: Yes (2) Metabolic encephalopathy Is this a current diagnosis for this admission?: Yes (3) Pressure ulcer of left heel, stage 4 Is this a current diagnosis for this admission?: Yes (4) Primary hyperparathyroidism Is this a current diagnosis for this admission?: Yes (5) Clostridium difficile colitis Is this a current diagnosis for this admission?: Yes - Time Time Spent with patient: 25-34 minutes Medications reviewed and adjusted accordingly: Yes Anticipated discharge: Other Within: Other - Inpatient Certification Based on my medical assessment, after consideration of the patient's comorbidities, presenting symptoms, or acuity I expect that the services needed warrant INPATIENT care.: Yes I certify that my determination is in accordance with my understanding of Medicare's requirements for reasonable and necessary INPATIENT services [42 CFR 412.3e].: Yes Medical Necessity: Need Close Monitoring Due to Risk of Patient Decompensation, Need For IV Fluids, Need For Continuous Telemetry Monitoring, Need for IV Antibiotics, Risk of Complication if Not Cared For in Hospital Post Hospital Care: D/C or Transfer Summary - Plan Summary Plan Summary: Continue current medication management. Downgrade to IMCU status. technical planner will start looking into placement at LTAC for vent management and possible wean of dependency.
[2017-11-13 10:46] LABS: ARTERIAL BLOOD BASE EXCESS -2.3 mmol/L; ARTERIAL BLOOD H2CO3 1.04 mmol/L (1.05-1.35); ARTERIAL BLOOD HCO3 21.8 mmol/L (20-26); ARTERIAL BLOOD O2 SATURATION 93.8 % (94-98); ARTERIAL BLOOD PCO2 34.7 mmHg (35-45); ARTERIAL BLOOD PH 7.42 (7.35-7.45); ARTERIAL BLOOD PO2 67.1 mmHg (80-100); ARTERIAL BLOOD TOTAL CO2 22.9 mmol/L (21-25)
[2017-11-13 10:47] LABS: ARTERIAL BLOOD FIO2 ROOM AIR
[2017-11-13] MEDS: NORMAL SALINE 1000 ML 1,000 ML IV PRN (13:04)
[2017-11-13] MEDS: ERTAPENEM SODIUM 1 GM in NORMAL SALINE 100 ML IV SCH (18:54)
[2017-11-14] MEDS: SULFAMETHOXAZOLE/TRIMETHOPRIM 800-160 MG TABLET PO SCH ×3 (01:30→23:58)
[2017-11-14] MEDS: VANCOMYCIN HCL INJ 500 MG VIAL PEG SCH ×5 (01:30→23:58)
[2017-11-14 05:40] LABS: ANION GAP 9 (5-19); BLOOD UREA NITROGEN 15 mg/dL (7-20); CALCIUM 10.4 mg/dL (8.4-10.2); CARBON DIOXIDE 22 mmol/L (22-30); CHLORIDE 120 mmol/L (98-107); GLUCOSE 167 mg/dL (75-110); POTASSIUM 3.6 mmol/L (3.6-5.0); SODIUM 151.2 mmol/L (137-145)
[2017-11-14 08:07] LABS: ARTERIAL BLOOD BASE EXCESS -1.5 mmol/L; ARTERIAL BLOOD H2CO3 1.03 mmol/L (1.05-1.35); ARTERIAL BLOOD HCO3 22.3 mmol/L (20-26); ARTERIAL BLOOD O2 SATURATION 97.9 % (94-98); ARTERIAL BLOOD PCO2 34.1 mmHg (35-45); ARTERIAL BLOOD PH 7.43 (7.35-7.45); ARTERIAL BLOOD TOTAL CO2 23.3 mmol/L (21-25)
[2017-11-14 08:09] LABS: ARTERIAL BLOOD FIO2 35%
[2017-11-14 08:12] LABS: ABSOLUTE MONOCYTES (AUTO) 0.8 10^3/uL (0.1-1.4); ABSOLUTE NEUT (AUTO) 5.4 10^3/uL (1.7-8.2); BASOPHILS % (AUTO) 0.5 % (0-2); EOSINOPHILS % (AUTO) 10.3 % (0-6); HEMATOCRIT 29.9 % (36.0-47.0); LYMPHOCYTES % (AUTO) 22.1 % (13-45); MEAN CORPUSCULAR HEMOGLOBIN 29.6 pg (27.0-33.4); MEAN CORPUSCULAR HGB CONC 33.2 g/dL (32.0-36.0); MEAN CORPUSCULAR VOLUME 89 fl (80-97); MONOCYTES % (AUTO) 8.6 % (3-13); PLATELET COUNT 326 10^3/uL (150-450); RED BLOOD COUNT 3.37 10^6/uL (3.72-5.28); RED CELL DISTRIBUTION WIDTH 15.8 % (11.5-14.0); SEGMENTED NEUTROPHILS % (AUTO) 58.5 % (42-78); TOTAL CELLS COUNTED % (AUTO) 100 %; WHITE BLOOD COUNT 9.3 10^3/uL (4.0-10.5)
[2017-11-14] MEDS: ALBUTEROL SULFATE 0.083% NEB 2.5 MG/3 ML AMPUL NEB PRN (09:04)
[2017-11-14] MEDS: TOBRAMYCIN SULFATE NEB 40 MG/ML 30 ML NEB SCH ×2 (09:04→19:29)
--- NOTE | 2017-11-14 09:34 | RADIOLOGY REPORT (SQ) ---
EXAM DESCRIPTION: CHEST SINGLE VIEW COMPLETED DATE/TIME: 11/14/2017 8:42 am REASON FOR STUDY: pna COMPARISON: 11/13/2017 EXAM PARAMETERS: NUMBER OF VIEWS: One view. TECHNIQUE: Single frontal radiographic view of the chest acquired. RADIATION DOSE: NA LIMITATIONS: None. FINDINGS: LUNGS AND PLEURA: Small bilateral pleural effusions with slight worsening on the right. B ibasilar atelectasis or pneumonia. Vague hazy Ing density on the right felt to be related to the eff usion. MEDIASTINUM AND HILAR STRUCTURES: No masses. Contour normal. HEART AND VASCULAR STRUCTURES: Heart normal in size. Normal vasculature. BONES: No acute findings. HARDWARE: Tracheostomy tube with its tip well above the yvon. OTHER: No other significant finding. IMPRESSION: 1. Small bilateral pleural effusions with increase on the right. 2. Bibasilar atelectasis or pneumonia TECHNICAL DOCUMENTATION: JOB ID: [id number] [email or web address]- All Rights Reserved
[2017-11-14] MEDS: MEMANTINE HCL 10 MG TABLET PEG SCH (10:20)
[2017-11-14] MEDS: ASPIRIN 81 MG TABLET, CHEWABLE PEG SCH (10:20)
[2017-11-14] MEDS: AMLODIPINE BESYLATE 10 MG TABLET PEG SCH (10:21)
[2017-11-14] MEDS: LOSARTAN POTASSIUM 25 MG TABLET PEG SCH (10:21)
[2017-11-14] MEDS: ENOXAPARIN SODIUM INJ 40 MG/0.4 ML DISP.SYRIN SUBCUT SCH (10:21)
[2017-11-14] MEDS: ASCORBIC ACID 500 MG TABLET PEG SCH (10:21)
[2017-11-14] MEDS ORDERED: DEXTROSE 5%-WATER 1000 ML 1,000 ML IV PRN (12:54)
[2017-11-14] MEDS: ERTAPENEM SODIUM 1 GM in NORMAL SALINE 100 ML IV SCH (18:07)
--- NOTE | 2017-11-14 20:35 | PDOC TRANSFER SUMMARY ---
General Admission Date/PCP: 11/07/17 08:13 BAKARI BECKER MD Admission Date: 11/07/17 Accepting Facility: Other (Comments) Resuscitation Status: Full Code - Transfer Diagnosis (1) Acute hypercapnic respiratory failure Is this a current diagnosis for this admission?: Yes (2) Tracheostomy dependence Is this a current diagnosis for this admission?: Yes (3) Pressure ulcer of left heel, stage 4 Is this a current diagnosis for this admission?: Yes (4) Primary hyperparathyroidism Is this a current diagnosis for this admission?: Yes (5) Metabolic encephalopathy Is this a current diagnosis for this admission?: Yes (6) MRSA (methicillin resistant Staphylococcus aureus) colonization Is this a current diagnosis for this admission?: Yes (7) MRSA (methicillin resistant staphylococcus aureus) pneumonia Is this a current diagnosis for this admission?: Yes (8) Clostridium difficile diarrhea Is this a current diagnosis for this admission?: Yes (9) Pseudomonas aeruginosa colonization Is this a current diagnosis for this admission?: Yes (10) Pseudomonas pneumonia Is this a current diagnosis for this admission?: Yes (12) Urinary tract infection Is this a current diagnosis for this admission?: Yes (13) Polymicrobial bacterial infection Is this a current diagnosis for this admission?: Yes - Transfer Medications Home Medications: Albuterol Sulfate [Ventolin 0.083% Neb 2.5 mg/3 ml Ampul] 2.5 mg NEB Q6HP PRN Amlodipine Besylate [Norvasc 10 mg Tablet] 10 mg PO DAILY 11/07/17 Ascorbic Acid [Vitamin C 500 mg Tablet] 500 mg PO DAILY 11/07/17 Aspirin [Aspirin 81 mg Chewable Tablet] 81 mg PO DAILY 11/07/17 Gabapentin [Neurontin] 250 mg PO QPM 11/07/17 Insulin Aspart [Novolog Insulin (Aspart) 100 unit/mL] 0 units SUBCUT .SLD SCALE 11/07/17 Losartan Potassium [Cozaar 25 mg Tablet] 25 mg PO DAILY 11/07/17 Memantine HCl [Namenda 10 mg Tablet] 10 mg PO DAILY 11/07/17 Ondansetron HCl [Zofran 4 mg Tablet] 1 tab PO TIDP PRN 11/07/17 Transfer Medications: Current Medications Albuterol (Ventolin 0.083% Neb 2.5 Mg/3 Ml Ampul) 2.5 mg NEB RTQ6HP PRN PRN Reason: SHORTNESS OF BREATH Stop: 12/07/17 21:31 Last Admin: 11/14/17 09:04 Dose: 2.5 mg Amlodipine Besylate (Norvasc 10 Mg Tablet) 10 mg PEG DAILY [facility] Stop: 12/09/17 09:59 Last Admin: 11/14/17 10:21 Dose: 10 mg Ascorbic Acid (Vitamin C 500 Mg Tablet) 500 mg PEG DAILY [facility] Stop: 12/09/17 09:59 Last Admin: 11/14/17 10:21 Dose: 500 mg Aspirin (Aspirin 81 Mg Chewable Tablet) 81 mg PEG DAILY [facility] Stop: 12/09/17 09:59 Last Admin: 11/14/17 10:20 Dose: 81 mg Enoxaparin Sodium (Lovenox Inj 40 Mg/0.4 Ml Disp.Syrin) 40 mg SUBCUT DAILY [facility] Stop: 12/07/17 09:59 Last Admin: 11/14/17 10:21 Dose: 40 mg Ertapenem 1 gm/ Sodium (Chloride) 100 mls @ 200 mls/hr IV QPM [facility] Stop: 11/15/18 17:59 Last Admin: 11/14/17 18:07 Dose: 1 gm Dextrose (D5w 1000 Ml Iv Soln) 1,000 mls @ 50 mls/hr IV CONTINUOUS PRN PRN Reason: THIS MED IS NOT "PRN" Stop: 12/14/17 12:53 Last Admin: 11/14/17 15:16 Dose: 1,000 ml Losartan Potassium (Cozaar 25 Mg Tablet) 25 mg PEG DAILY [facility] Stop: 12/09/17 09:59 Last Admin: 11/14/17 10:21 Dose: 25 mg Memantine (Namenda 10 Mg Tablet) 10 mg PEG DAILY [facility] Stop: 12/09/17 09:59 Last Admin: 11/14/17 10:20 Dose: 10 mg Ondansetron HCl (Zofran Inj/Pf 4 Mg/2 Ml Sdv) 4 mg IV Q6HP PRN PRN Reason: FOR NAUSEA/VOMITING Stop: 12/11/17 08:41 Tobramycin Sulfate (Tobramycin Neb 40 Mg/Ml 30 Ml Vial) 300 mg NEB RTQ12 [facility] Stop: 11/15/17 19:59 Last Admin: 02/19/18 19:29 Dose: 300 mg Trimethoprim/Sulfamethoxazole (Septra-Ds 800-160 Mg Tablet) 1 tab PO Q12 [facility] Stop: 11/17/17 09:59 Last Admin: 11/14/17 10:21 Dose: 1 tab Vancomycin HCl (Vancocin Inj 500 Mg Vial) 250 mg PEG Q6 [facility] Stop: 11/15/17 11:59 Last Admin: 11/14/17 18:08 Dose: 250 mg - Allergies Allergies/Adverse Reactions: alprazolam [From Xanax] Allergy (Verified 08/12/17 10:54) iodine [Iodine] Allergy (Verified 08/12/17 10:54) quetiapine fumarate [From Seroquel] Allergy (Verified 08/12/17 10:54) Hospital Course Hospital Course: Patient 82-year-old chronically debilitated admitted because of hypercapnic respiratory failure requiring mechanical ventilation. She has a trach, she also had diarrhea, stool positive for C. difficile toxin. She was treated with vancomycin p.o. Patient is presently on CPAP ,pressure support family is [facility] because [facility]. She was accepted in transfer by [facility]. She is status post right leg amputation, she has chronic pressure ulcer in the left ankle. She had MRSA, Pseudomonas, Citrobacter culture from the ankle, she also MRSA culture from secretion from the eyes, MRSA was cultured from the sputum, Citrobacter was cultured from the urine. Most of the culture bacteria is most likely due to chronic colonization rather than true infection. The MRSA is sensitive to Bactrim she was given Bactrim, the Citrobacter was treated with ertapenem Physical Exam Vital Signs: Temp Pulse Resp BP Pulse Ox 100.3 F 93 24 H 128/92 H 98 11/14/17 15:10 11/14/17 15:10 11/14/17 15:10 11/14/17 15:10 11/14/17 16:25 Intake & Output 11/13/17 11/14/17 11/15/17 06:59 06:59 06:59 Intake Total 2343 1146 913 Output Total 1610 2230 1200 Balance 733 -1084 -287 Weight 65.3 kg 64.7 kg General appearance: PRESENT: no acute distress Eye exam: PRESENT: PERRLA Respiratory exam: PRESENT: clear to auscultation monica Cardiovascular exam: PRESENT: +S1, +S2 GI/Abdominal exam: PRESENT: soft, other - There is a PEG tube in place Neurological exam: PRESENT: alert Results Laboratory Results: 11/14/17 07:50 11/14/17 03:51 11/14/17 11/14/17 11/14/17 03:51 03:51 07:50 WBC Cancelled 9.3 RBC Cancelled 3.37 L Hgb Cancelled 10.0 L Hct Cancelled 29.9 L MCV Cancelled 89 MCH Cancelled 29.6 MCHC Cancelled 33.2 RDW Cancelled 15.8 H Plt Count Cancelled 326 Seg Neutrophils % Cancelled 58.5 Lymphocytes % Cancelled 22.1 Monocytes % Cancelled 8.6 Eosinophils % Cancelled 10.3 H Basophils % Cancelled 0.5 Absolute Neutrophils Cancelled 5.4 Absolute Lymphocytes Cancelled 2.0 Absolute Monocytes Cancelled 0.8 Absolute Eosinophils Cancelled 1.0 H Absolute Basophils Cancelled 0.0 Carbonic Acid HCO3/H2CO3 Ratio ABG pH ABG pCO2 ABG pO2 ABG HCO3 ABG O2 Saturation ABG Base Excess FiO2 Sodium 151.2 H Potassium 3.6 Chloride 120 H Carbon Dioxide 22 Anion Gap 9 BUN 15 Creatinine 0.70 Est GFR ( Amer) > 60 Est GFR (Non-Af Amer) > 60 Glucose 167 H Calcium 10.4 H Magnesium 1.9 11/14/17 07:52 WBC RBC Hgb Hct MCV MCH MCHC RDW Plt Count Seg Neutrophils % Lymphocytes % Monocytes % Eosinophils % Basophils % Absolute Neutrophils Absolute Lymphocytes Absolute Monocytes Absolute Eosinophils Absolute Basophils Carbonic Acid 1.03 L HCO3/H2CO3 Ratio 21:1 ABG pH 7.43 ABG pCO2 34.1 L ABG pO2 102.0 H ABG HCO3 22.3 ABG O2 Saturation 97.9 ABG Base Excess -1.5 FiO2 35% Sodium Potassium Chloride Carbon Dioxide Anion Gap BUN Creatinine Est GFR ( Amer) Est GFR (Non-Af Amer) Glucose Calcium Magnesium 11/07/17 11/07/17 11/07/17 10:00 15:55 22:25 CK-MB (CK-2) 0.92 0.63 0.52 Troponin I < 0.012 < 0.012 < 0.012 NT-Pro-B Natriuret Pep 11/08/17 11/09/17 11/10/17 03:48 03:50 04:01 CK-MB (CK-2) Troponin I NT-Pro-B Natriuret Pep 697 H 856 H 1150 H Impressions: Head CT 11/07/17 03:42 IMPRESSION: 1. No acute intracranial abnormality by CT criteria. This exam was performed according to our departmental dose-optimization program, which includes automated exposure control, adjustment of the mA and/or kV according to patient size and/or use of iterative reconstruction technique. Chest Ultrasound 11/11/17 08:28 IMPRESSION: Insufficient pleural fluid volume. Chest X-Ray 11/14/17 06:00 IMPRESSION: 1. Small bilateral pleural effusions with increase on the right. 2. Bibasilar atelectasis or pneumonia
[2017-11-15] MEDS: VANCOMYCIN HCL INJ 500 MG VIAL PEG SCH (07:03)
[2017-11-15] MEDS: TOBRAMYCIN SULFATE NEB 40 MG/ML 30 ML NEB SCH (08:00)
[2017-11-15 08:36] VITALS: BP 151/71
[2017-11-15] MEDS: ASPIRIN 81 MG TABLET, CHEWABLE PEG SCH (09:52)
[2017-11-15] MEDS: ENOXAPARIN SODIUM INJ 40 MG/0.4 ML DISP.SYRIN SUBCUT SCH (09:52)
[2017-11-15] MEDS: AMLODIPINE BESYLATE 10 MG TABLET PEG SCH (09:52)
[2017-11-15] MEDS: LOSARTAN POTASSIUM 25 MG TABLET PEG SCH (09:53)
[2017-11-15] MEDS: MEMANTINE HCL 10 MG TABLET PEG SCH (09:53)
[2017-11-15] MEDS: ASCORBIC ACID 500 MG TABLET PEG SCH (09:53)
[2017-11-15] MEDS ORDERED: SULFAMETHOXAZOLE/TRIMETHOPRIM 800-160 MG TABLET PEG SCH (10:00)
--- NOTE | 2017-11-20 17:31 | PDOC CONSULTATION ---
Consultation Consult Date: 11/07/17 Attending physician:: BAKARI BECKER Consult reason:: acute/chronic; hypoxic/hypercapnic; resp failure History of Present Illness Admission Date/PCP: 11/07/17 08:13 BAKARI BECKER MD Patient complains of: dyspnea History of Present Illness: BRIANA BRADY is a 82 year old female [place] [facility] presented to [facility] with altered mental status was found to have CO2 narcosis and mechanichal ventilation via tracheostomy tube was initiated. Curently in ICU Past Medical History Cardiac Medical History: Reports: Congestive Heart Failure, Hyperlipidema, Hypertension, Peripheral Vascular Disease Pulmonary Medical History: Reports: Chronic Obstructive Pulmonary Disease (COPD) Endocrine Medical History: Reports: Diabetes Mellitus Type 2 Psychiatric Medical History: Reports: Dementia Denies: Depression Past Surgical History Past Surgical History: Reports: Orthopedic Surgery - Shoulder. 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 , Other - tracheostomy Social History Information Source: [facility] Records Smoking Status: Unknown if Ever Smoked Frequency of Alcohol Use: None Hx Recreational Drug Use: No Drugs: None Hx Prescription Drug Abuse: No Family History Parental Family History Reviewed: No Children Family History Reviewed: No Sibling(s) Family History Reviewed.: No Medication/Allergy Home Medications: Albuterol Sulfate [Ventolin 0.083% Neb 2.5 mg/3 ml Ampul] 2.5 mg NEB Q6HP PRN Amlodipine Besylate [Norvasc 10 mg Tablet] 10 mg PO DAILY 11/07/17 Ascorbic Acid [Vitamin C 500 mg Tablet] 500 mg PO DAILY 11/07/17 Aspirin [Aspirin 81 mg Chewable Tablet] 81 mg PO DAILY 11/07/17 Gabapentin [Neurontin] 250 mg PO QPM 11/07/17 Insulin Aspart [Novolog Insulin (Aspart) 100 unit/mL] 0 units SUBCUT .SLD SCALE 11/07/17 Losartan Potassium [Cozaar 25 mg Tablet] 25 mg PO DAILY 11/07/17 Memantine HCl [Namenda 10 mg Tablet] 10 mg PO DAILY 11/07/17 Ondansetron HCl [Zofran 4 mg Tablet] 1 tab PO TIDP PRN 11/07/17 Allergies/Adverse Reactions: alprazolam [From Xanax] Allergy (Verified 08/12/17 10:54) iodine [Iodine] Allergy (Verified 08/12/17 10:54) quetiapine fumarate [From Seroquel] Allergy (Verified 08/12/17 10:54) Review of Systems ROS unobtainable: Due to endotracheal tube, Due to mental status Physical Exam Vital Signs: Temp Pulse Resp BP Pulse Ox 86 16 123/56 L 98 11/07/17 10:09 11/07/17 10:09 11/07/17 07:01 11/07/17 10:09 General appearance: PRESENT: no acute distress, disheveled, well-developed. ABSENT: cooperative Head exam: PRESENT: atraumatic, normocephalic Eye exam: PRESENT: conjunctiva pale. ABSENT: EOMI, nystagmus, periorbital swelling Mouth exam: PRESENT: dry mucosa, neck supple, tongue midline, other - ET tube Neck exam: PRESENT: tracheostomy. ABSENT: carotid bruit, JVD, lymphadenopathy, thyromegaly, tracheal deviation Respiratory exam: PRESENT: crackles, decreased breath sounds, prolonged expiratory phas, rhonchi, symmetrical, wheezes. ABSENT: retraction, stridor Cardiovascular exam: PRESENT: RRR, +S1, +S2 Pulses: PRESENT: normal radial pulses GI/Abdominal exam: PRESENT: diminished bowel sounds, soft Extremities exam: ABSENT: calf tenderness, clubbing, joint swelling Musculoskeletal exam: ABSENT: deformity, dislocation Neurological exam: ABSENT: alert, awake Skin exam: PRESENT: dry, warm Results Laboratory Results: 11/07/17 11/07/17 10:00 10:05 Carbonic Acid 2.16 H HCO3/H2CO3 Ratio 14:1 ABG pH 7.25 L ABG pCO2 71.8 H* ABG pO2 121.1 H ABG HCO3 30.7 H ABG O2 Saturation 97.7 ABG Base Excess 2.0 FiO2 40% Ammonia < 8.7 L 11/07/17 10:00 CK-MB (CK-2) 0.92 Troponin I < 0.012 Impressions: Chest X-Ray 11/07/17 03:42 IMPRESSION: 1. No acute pulmonary process identified. Stable appearance of the chest. Head CT 11/07/17 03:42 IMPRESSION: 1. No acute intracranial abnormality by CT criteria. This exam was performed according to our departmental dose-optimization program, which includes automated exposure control, adjustment of the mA and/or kV according to patient size and/or use of iterative reconstruction technique. Assessment & Plan - Diagnosis (1) Acute and chronic respiratory failure, unspecified whether with hypoxia or hypercapnia Is this a current diagnosis for this admission?: Yes Plan: both hypercapnic/hypoxic support as required (2) Clostridium difficile diarrhea Is this a current diagnosis for this admission?: Yes (3) Dementia Qualifiers: Dementia type: unspecified type Dementia behavioral disturbance: without behavioral disturbance Qualified Code(s): F03.90 - Unspecified dementia without behavioral disturbance (4) Gram-negative pneumonia Is this a current diagnosis for this admission?: Yes Plan: 11/07/17 20:11 Gram Stain - Final Tracheal Aspirate Sputum Culture - Final Pseudomonas Aeruginosa Greatly Reduced Normal Nan (5) MRSA (methicillin resistant Staphylococcus aureus) infection Is this a current diagnosis for this admission?: Yes Plan: 11/07/17 16:15 Gram Stain - Final Trach Site Wound Culture - Final Pseudomonas Aeruginosa Mrsa (Meth Resis Staph Aureus) Citrobacter Freundii Skin Nan 11/07/17 16:15 Gram Stain - Final G Tube (Peg Tube) Wound Culture - Final Mrsa (Meth Resis Staph Aureus) Enterobacter Aerogenes Skin Nan 11/07/17 16:15 Gram Stain - Final Foot - Left Wound Culture - Final Mrsa (Meth Resis Staph Aureus) 11/07/17 16:15 Gram Stain - Final Eye - Drainage Eye Culture - Final Mrsa (Meth Resis Staph Aureus) (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 Is this a current diagnosis for this admission?: Yes Plan: 11/07/17 16:15 Gram Stain - Final Foot - Left Wound Culture - Final Mrsa (Meth Resis Staph Aureus) (7) Polymicrobial bacterial infection Is this a current diagnosis for this admission?: Yes Plan: 11/07/17 20:11 Gram Stain - Final Tracheal Aspirate Sputum Culture - Final Pseudomonas Aeruginosa Greatly Reduced Normal Nan 11/07/17 20:11 Urine Culture - Final Catheterized Urine Citrobacter Freundii 11/07/17 16:15 Gram Stain - Final Trach Site Wound Culture - Final Pseudomonas Aeruginosa Mrsa (Meth Resis Staph Aureus) Citrobacter Freundii Skin Nan 11/07/17 16:15 Gram Stain - Final G Tube (Peg Tube) Wound Culture - Final Mrsa (Meth Resis Staph Aureus) Enterobacter Aerogenes Skin Nan 11/07/17 16:15 Gram Stain - Final Foot - Left Wound Culture - Final Mrsa (Meth Resis Staph Aureus) 11/07/17 16:15 Gram Stain - Final Eye - Drainage Eye Culture - Final Mrsa (Meth Resis Staph Aureus) - Time Total Critical Time (Minutes): 60
--- NOTE | 2017-11-20 17:35 | PDOC PROGRESS REPORT ---
Subjective Progress Note for:: 11/09/17 Subjective:: sedated on mechanical vent per tracheostomy tube Reason For Visit: ACUTE HYPERCAPNIC RESPIRATORY FAILURE,CO2 NARCOSIS Physical Exam Vital Signs: Temp Pulse Resp BP Pulse Ox 97.3 F 72 12 138/66 H 100 11/09/17 08:00 11/09/17 08:12 11/09/17 08:12 11/09/17 08:00 11/09/17 08:12 Intake & Output 11/08/17 11/09/17 11/10/17 06:59 06:59 06:59 Intake Total 1519 2446 Output Total 305 1420 60 Balance 1214 1026 -60 Weight 60.9 kg 62.5 kg General appearance: PRESENT: no acute distress, disheveled, well-developed. ABSENT: cooperative Head exam: PRESENT: atraumatic, normocephalic Eye exam: PRESENT: conjunctiva pale. ABSENT: nystagmus, periorbital swelling, scleral icterus Mouth exam: PRESENT: dry mucosa, neck supple, tongue midline Neck exam: PRESENT: tracheostomy. ABSENT: carotid bruit, JVD, lymphadenopathy, thyromegaly, tracheal deviation Respiratory exam: PRESENT: crackles, decreased breath sounds, prolonged expiratory phas, rhonchi, symmetrical, unlabored. ABSENT: retraction, stridor, tachypnea Cardiovascular exam: PRESENT: RRR, +S1, +S2 Pulses: PRESENT: normal radial pulses GI/Abdominal exam: PRESENT: diminished bowel sounds, soft, other - PEG Rectal exam: PRESENT: heme (-) stool Extremities exam: PRESENT: other - wound to l foot. ABSENT: calf tenderness, clubbing, joint swelling Neurological exam: ABSENT: alert, altered Skin exam: PRESENT: dry, warm, other - wound to L foot Results Laboratory Results: 11/09/17 03:50 11/09/17 03:50 11/09/17 11/09/17 11/09/17 03:50 03:50 06:10 WBC 10.6 H RBC 3.46 L Hgb 10.2 L Hct 31.0 L MCV 90 MCH 29.4 MCHC 32.8 RDW 15.5 H Plt Count 379 Seg Neutrophils % 48.8 Lymphocytes % 26.0 Monocytes % 10.4 Eosinophils % 13.4 H Basophils % 1.4 Absolute Neutrophils 5.2 Absolute Lymphocytes 2.8 Absolute Monocytes 1.1 Absolute Eosinophils 1.4 H Absolute Basophils 0.1 Carbonic Acid 1.30 HCO3/H2CO3 Ratio 19:1 ABG pH 7.39 ABG pCO2 43.3 ABG pO2 127.3 H ABG HCO3 25.7 ABG O2 Saturation 98.5 H ABG Base Excess 0.6 FiO2 35% Sodium 147.4 H Potassium 3.1 L Chloride 114 H Carbon Dioxide 24 Anion Gap 9 BUN 29 H Creatinine 0.73 Est GFR ( Amer) > 60 Est GFR (Non-Af Amer) > 60 Glucose 159 H Calcium 10.3 H Phosphorus 2.5 Magnesium 2.1 Total Bilirubin 0.2 AST 19 ALT 22 Alkaline Phosphatase 95 Total Protein 6.5 Albumin 3.4 L 11/07/17 16:15 Eye - Drainage Gram Stain - Final 11/07/17 16:15 Eye - Drainage Eye Culture - Final Mrsa (Meth Resis Staph Aureus) 11/07/17 20:11 Catheterized Urine Urine Culture - Final Citrobacter Freundii 11/07/17 11/07/17 11/07/17 10:00 15:55 22:25 CK-MB (CK-2) 0.92 0.63 0.52 Troponin I < 0.012 < 0.012 < 0.012 NT-Pro-B Natriuret Pep 11/08/17 11/09/17 03:48 03:50 CK-MB (CK-2) Troponin I NT-Pro-B Natriuret Pep 697 H 856 H Impressions: Head CT 11/07/17 03:42 IMPRESSION: 1. No acute intracranial abnormality by CT criteria. This exam was performed according to our departmental dose-optimization program, which includes automated exposure control, adjustment of the mA and/or kV according to patient size and/or use of iterative reconstruction technique. Chest X-Ray 11/09/17 06:00 IMPRESSION: No significant change. Assessment & Plan - Diagnosis (1) Acute hypercapnic respiratory failure Is this a current diagnosis for this admission?: Yes Plan: The above patient has failed BiPAP. This patient would benefit from invasive mechanical ventilation via the trilogy.Patient will need to pressure support as well as PEEP. The trilogy is able to provide a target tidal volume and maintain a patent airway as well as an oral backup rate this machine will help improve PaCO2 levels. The severity of the patient's condition will lead to future hospitalizations and readmissions as well as life-threatening situations without the use of this device trilogy home vent needed for hypercapnic respiratory failure. Family Medical or Med [facility] to follow for trilogy set up. (2) Tracheostomy dependence Is this a current diagnosis for this admission?: Yes (3) Acute hypoxemic respiratory failure Is this a current diagnosis for this admission?: Yes (4) Acute and chronic respiratory failure, unspecified whether with hypoxia or hypercapnia Is this a current diagnosis for this admission?: Yes Plan: both hypercapnic/hypoxic support as required (5) Dementia Qualifiers: Dementia type: unspecified type Dementia behavioral disturbance: without behavioral disturbance Qualified Code(s): F03.90 - Unspecified dementia without behavioral disturbance Is this a current diagnosis for this admission?: Yes (6) Gram-negative pneumonia Is this a current diagnosis for this admission?: Yes Plan: 11/07/17 20:11 Gram Stain - Final Tracheal Aspirate Sputum Culture - Final Pseudomonas Aeruginosa Greatly Reduced Normal Nan (7) MRSA (methicillin resistant Staphylococcus aureus) infection Is this a current diagnosis for this admission?: Yes Plan: 11/07/17 16:15 Gram Stain - Final Trach Site Wound Culture - Final Pseudomonas Aeruginosa Mrsa (Meth Resis Staph Aureus) Citrobacter Freundii Skin Nan 11/07/17 16:15 Gram Stain - Final G Tube (Peg Tube) Wound Culture - Final Mrsa (Meth Resis Staph Aureus) Enterobacter Aerogenes Skin Nan 11/07/17 16:15 Gram Stain - Final Foot - Left Wound Culture - Final Mrsa (Meth Resis Staph Aureus) 11/07/17 16:15 Gram Stain - Final Eye - Drainage Eye Culture - Final Mrsa (Meth Resis Staph Aureus) (8) Osteomyelitis of foot Qualifiers: Laterality: left Is this a current diagnosis for this admission?: Yes Plan: 11/07/17 16:15 Gram Stain - Final Foot - Left Wound Culture - Final Mrsa (Meth Resis Staph Aureus) (9) Polymicrobial bacterial infection Is this a current diagnosis for this admission?: Yes Plan: 11/07/17 20:11 Gram Stain - Final Tracheal Aspirate Sputum Culture - Final Pseudomonas Aeruginosa Greatly Reduced Normal Nan 11/07/17 20:11 Urine Culture - Final Catheterized Urine Citrobacter Freundii 11/07/17 16:15 Gram Stain - Final Trach Site Wound Culture - Final Pseudomonas Aeruginosa Mrsa (Meth Resis Staph Aureus) Citrobacter Freundii Skin Nan 11/07/17 16:15 Gram Stain - Final G Tube (Peg Tube) Wound Culture - Final Mrsa (Meth Resis Staph Aureus) Enterobacter Aerogenes Skin Nan 11/07/17 16:15 Gram Stain - Final Foot - Left Wound Culture - Final Mrsa (Meth Resis Staph Aureus) 11/07/17 16:15 Gram Stain - Final Eye - Drainage Eye Culture - Final Mrsa (Meth Resis Staph Aureus) - Time Total Critical Time (Minutes): 45
--- NOTE | 2017-11-20 17:41 | PDOC PROGRESS REPORT ---
Subjective Progress Note for:: 11/10/17 Subjective:: sedated Reason For Visit: ACUTE HYPERCAPNIC RESPIRATORY FAILURE,CO2 NARCOSIS Physical Exam Vital Signs: Temp Pulse Resp BP Pulse Ox 97.9 F 84 13 138/64 H 100 11/10/17 06:00 11/09/17 20:00 11/10/17 06:00 11/10/17 05:47 11/10/17 06:00 Intake & Output 11/09/17 11/10/17 11/11/17 06:59 06:59 06:59 Intake Total 2446 2357 Output Total 1420 1050 Balance 1026 1307 Weight 62.5 kg General appearance: PRESENT: no acute distress, disheveled, well-developed. ABSENT: cooperative Head exam: PRESENT: atraumatic, normocephalic Eye exam: PRESENT: conjunctiva pale. ABSENT: nystagmus, periorbital swelling, scleral icterus Mouth exam: PRESENT: dry mucosa, neck supple, tongue midline Neck exam: PRESENT: tracheostomy. ABSENT: carotid bruit, JVD, lymphadenopathy, thyromegaly, tracheal deviation Respiratory exam: PRESENT: crackles, decreased breath sounds, prolonged expiratory phas, rhonchi, symmetrical, unlabored, wheezes. ABSENT: rales, retraction, stridor Cardiovascular exam: PRESENT: RRR, +S1, +S2 Pulses: PRESENT: normal radial pulses GI/Abdominal exam: PRESENT: diminished bowel sounds, soft, other - PEG Extremities exam: ABSENT: calf tenderness, clubbing, joint swelling Musculoskeletal exam: ABSENT: deformity, dislocation Neurological exam: ABSENT: alert, awake Skin exam: PRESENT: dry, other - L foot wound Results Laboratory Results: 11/10/17 04:01 11/10/17 04:01 11/09/17 11/10/17 11/10/17 13:00 04:01 04:01 WBC 13.1 H RBC 3.19 L Hgb 9.4 L Hct 28.9 L MCV 91 MCH 29.5 MCHC 32.6 RDW 16.0 H Plt Count 367 Seg Neutrophils % 68.8 Lymphocytes % 12.5 L Monocytes % 8.7 Eosinophils % 8.9 H Basophils % 1.1 Absolute Neutrophils 9.0 H Absolute Lymphocytes 1.6 Absolute Monocytes 1.1 Absolute Eosinophils 1.2 H Absolute Basophils 0.1 Carbonic Acid 1.10 HCO3/H2CO3 Ratio 21:1 ABG pH 7.43 ABG pCO2 36.5 ABG pO2 133.9 H ABG HCO3 23.9 ABG O2 Saturation 98.8 H ABG Base Excess -0.1 FiO2 35% Sodium 149.6 H Potassium 4.0 Chloride 119 H Carbon Dioxide 22 Anion Gap 9 BUN 24 H Creatinine 0.67 Est GFR ( Amer) > 60 Est GFR (Non-Af Amer) > 60 Glucose 189 H Calcium 10.3 H Magnesium 2.0 Total Bilirubin 0.2 AST 19 ALT 26 Alkaline Phosphatase 79 Total Protein 6.5 Albumin 3.0 L 11/10/17 05:30 WBC RBC Hgb Hct MCV MCH MCHC RDW Plt Count Seg Neutrophils % Lymphocytes % Monocytes % Eosinophils % Basophils % Absolute Neutrophils Absolute Lymphocytes Absolute Monocytes Absolute Eosinophils Absolute Basophils Carbonic Acid 1.33 HCO3/H2CO3 Ratio 19:1 ABG pH 7.38 ABG pCO2 44.1 ABG pO2 119.1 H ABG HCO3 25.4 ABG O2 Saturation 98.2 H ABG Base Excess 0.2 FiO2 35% Sodium Potassium Chloride Carbon Dioxide Anion Gap BUN Creatinine Est GFR ( Amer) Est GFR (Non-Af Amer) Glucose Calcium Magnesium Total Bilirubin AST ALT Alkaline Phosphatase Total Protein Albumin 11/07/17 16:15 Foot - Left Gram Stain - Final 11/07/17 16:15 Foot - Left Wound Culture - Final Mrsa (Meth Resis Staph Aureus) 11/07/17 16:15 Eye - Drainage Gram Stain - Final 11/07/17 16:15 Eye - Drainage Eye Culture - Final Mrsa (Meth Resis Staph Aureus) 11/07/17 20:11 Catheterized Urine Urine Culture - Final Citrobacter Freundii 11/07/17 11/07/17 11/07/17 10:00 15:55 22:25 CK-MB (CK-2) 0.92 0.63 0.52 Troponin I < 0.012 < 0.012 < 0.012 NT-Pro-B Natriuret Pep 11/08/17 11/09/17 11/10/17 03:48 03:50 04:01 CK-MB (CK-2) Troponin I NT-Pro-B Natriuret Pep 697 H 856 H 1150 H Impressions: Head CT 11/07/17 03:42 IMPRESSION: 1. No acute intracranial abnormality by CT criteria. This exam was performed according to our departmental dose-optimization program, which includes automated exposure control, adjustment of the mA and/or kV according to patient size and/or use of iterative reconstruction technique. Chest X-Ray 11/10/17 06:00 IMPRESSION: No significant interval change. Assessment & Plan - Diagnosis (1) Tracheostomy dependence Is this a current diagnosis for this admission?: Yes (2) Acute and chronic respiratory failure, unspecified whether with hypoxia or hypercapnia Is this a current diagnosis for this admission?: Yes Plan: both hypercapnic/hypoxic support as required (3) Dementia Qualifiers: Dementia type: unspecified type Dementia behavioral disturbance: without behavioral disturbance Qualified Code(s): F03.90 - Unspecified dementia without behavioral disturbance Is this a current diagnosis for this admission?: Yes (4) Gram-negative pneumonia Is this a current diagnosis for this admission?: Yes Plan: 11/07/17 20:11 Gram Stain - Final Tracheal Aspirate Sputum Culture - Final Pseudomonas Aeruginosa Greatly Reduced Normal Nan (5) MRSA (methicillin resistant Staphylococcus aureus) infection Is this a current diagnosis for this admission?: Yes Plan: 11/07/17 16:15 Gram Stain - Final Trach Site Wound Culture - Final Pseudomonas Aeruginosa Mrsa (Meth Resis Staph Aureus) Citrobacter Freundii Skin Nan 11/07/17 16:15 Gram Stain - Final G Tube (Peg Tube) Wound Culture - Final Mrsa (Meth Resis Staph Aureus) Enterobacter Aerogenes Skin Nan 11/07/17 16:15 Gram Stain - Final Foot - Left Wound Culture - Final Mrsa (Meth Resis Staph Aureus) 11/07/17 16:15 Gram Stain - Final Eye - Drainage Eye Culture - Final Mrsa (Meth Resis Staph Aureus) (6) Polymicrobial bacterial infection Is this a current diagnosis for this admission?: Yes Plan: 11/07/17 20:11 Gram Stain - Final Tracheal Aspirate Sputum Culture - Final Pseudomonas Aeruginosa Greatly Reduced Normal Nan 11/07/17 20:11 Urine Culture - Final Catheterized Urine Citrobacter Freundii 11/07/17 16:15 Gram Stain - Final Trach Site Wound Culture - Final Pseudomonas Aeruginosa Mrsa (Meth Resis Staph Aureus) Citrobacter Freundii Skin Nan 11/07/17 16:15 Gram Stain - Final G Tube (Peg Tube) Wound Culture - Final Mrsa (Meth Resis Staph Aureus) Enterobacter Aerogenes Skin Nan 11/07/17 16:15 Gram Stain - Final Foot - Left Wound Culture - Final Mrsa (Meth Resis Staph Aureus) 11/07/17 16:15 Gram Stain - Final Eye - Drainage Eye Culture - Final Mrsa (Meth Resis Staph Aureus) - Time Total Critical Time (Minutes): 40
--- NOTE | 2017-11-20 17:46 | PDOC PROGRESS REPORT ---
Subjective Progress Note for:: 11/11/17 Subjective:: sedated Reason For Visit: ACUTE HYPERCAPNIC RESPIRATORY FAILURE,CO2 NARCOSIS Physical Exam Vital Signs: Temp Pulse Resp BP Pulse Ox 97.0 F 73 16 139/66 H 98 11/11/17 06:17 11/10/17 20:00 11/11/17 06:17 11/11/17 06:17 11/11/17 06:17 Intake & Output 11/10/17 11/11/17 11/12/17 06:59 06:59 06:59 Intake Total 2357 1636 Output Total 1050 1415 Balance 1307 221 Weight 63.4 kg General appearance: PRESENT: no acute distress, disheveled, well-developed. ABSENT: cooperative Head exam: PRESENT: atraumatic, normocephalic Eye exam: PRESENT: conjunctiva pale. ABSENT: nystagmus, periorbital swelling, scleral icterus Mouth exam: PRESENT: dry mucosa, neck supple, tongue midline Neck exam: PRESENT: tracheostomy. ABSENT: carotid bruit, JVD, lymphadenopathy, thyromegaly, tracheal deviation Respiratory exam: PRESENT: crackles, decreased breath sounds, prolonged expiratory phas, rhonchi, symmetrical, unlabored. ABSENT: rales, retraction, stridor Cardiovascular exam: PRESENT: RRR, +S1, +S2 Pulses: PRESENT: normal radial pulses GI/Abdominal exam: PRESENT: diminished bowel sounds, soft, other - PEG Extremities exam: ABSENT: calf tenderness, clubbing Musculoskeletal exam: ABSENT: deformity, dislocation Neurological exam: ABSENT: alert, awake, oriented to person, oriented to place Skin exam: PRESENT: dry, other - L foot wound Results Laboratory Results: 11/10/17 04:01 11/10/17 04:01 11/07/17 16:15 Trach Site Gram Stain - Final 11/07/17 16:15 G Tube (Peg Tube) Gram Stain - Final 11/07/17 16:15 G Tube (Peg Tube) Wound Culture - Final Mrsa (Meth Resis Staph Aureus) Enterobacter Aerogenes Skin Nan 11/07/17 20:11 Tracheal Aspirate Gram Stain - Final 11/07/17 20:11 Tracheal Aspirate Sputum Culture - Final Pseudomonas Aeruginosa Greatly Reduced Normal Nan 11/07/17 11/07/17 11/07/17 10:00 15:55 22:25 CK-MB (CK-2) 0.92 0.63 0.52 Troponin I < 0.012 < 0.012 < 0.012 NT-Pro-B Natriuret Pep 11/08/17 11/09/17 11/10/17 03:48 03:50 04:01 CK-MB (CK-2) Troponin I NT-Pro-B Natriuret Pep 697 H 856 H 1150 H Impressions: Head CT 11/07/17 03:42 IMPRESSION: 1. No acute intracranial abnormality by CT criteria. This exam was performed according to our departmental dose-optimization program, which includes automated exposure control, adjustment of the mA and/or kV according to patient size and/or use of iterative reconstruction technique. Chest X-Ray 11/10/17 06:00 IMPRESSION: No significant interval change. Assessment & Plan - Diagnosis (1) Tracheostomy dependence Is this a current diagnosis for this admission?: Yes (2) Acute and chronic respiratory failure, unspecified whether with hypoxia or hypercapnia Is this a current diagnosis for this admission?: Yes Plan: both hypercapnic/hypoxic support as required (3) Dementia Qualifiers: Dementia type: unspecified type Dementia behavioral disturbance: without behavioral disturbance Qualified Code(s): F03.90 - Unspecified dementia without behavioral disturbance Is this a current diagnosis for this admission?: Yes (4) Gram-negative pneumonia Is this a current diagnosis for this admission?: Yes Plan: 11/07/17 20:11 Gram Stain - Final Tracheal Aspirate Sputum Culture - Final Pseudomonas Aeruginosa Greatly Reduced Normal Nan (5) MRSA (methicillin resistant Staphylococcus aureus) infection Is this a current diagnosis for this admission?: Yes Plan: 11/07/17 16:15 Gram Stain - Final Trach Site Wound Culture - Final Pseudomonas Aeruginosa Mrsa (Meth Resis Staph Aureus) Citrobacter Freundii Skin Nan 11/07/17 16:15 Gram Stain - Final G Tube (Peg Tube) Wound Culture - Final Mrsa (Meth Resis Staph Aureus) Enterobacter Aerogenes Skin Nan 11/07/17 16:15 Gram Stain - Final Foot - Left Wound Culture - Final Mrsa (Meth Resis Staph Aureus) 11/07/17 16:15 Gram Stain - Final Eye - Drainage Eye Culture - Final Mrsa (Meth Resis Staph Aureus) (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
--- NOTE | 2017-11-20 17:50 | PDOC PROGRESS REPORT ---
Subjective Progress Note for:: 11/12/17 Subjective:: increase free water via increase freq of flush po profound eosinophlia Reason For Visit: ACUTE HYPERCAPNIC RESPIRATORY FAILURE,CO2 NARCOSIS Physical Exam Vital Signs: Temp Pulse Resp BP Pulse Ox 97.5 F 53 L 10 L 132/59 H 100 11/12/17 08:00 11/12/17 08:00 11/12/17 08:00 11/12/17 08:00 11/12/17 08:00 Intake & Output 11/11/17 11/12/17 11/13/17 06:59 06:59 06:59 Intake Total 1636 1598 Output Total 1415 1300 75 Balance 221 298 -75 Weight 63.4 kg 63.7 kg General appearance: PRESENT: no acute distress, disheveled, well-developed. ABSENT: cooperative Head exam: PRESENT: atraumatic, normocephalic Eye exam: PRESENT: conjunctiva pale. ABSENT: nystagmus, periorbital swelling Mouth exam: PRESENT: dry mucosa, neck supple, tongue midline Neck exam: PRESENT: tracheostomy. ABSENT: carotid bruit, JVD, lymphadenopathy, thyromegaly, tracheal deviation Respiratory exam: PRESENT: crackles, decreased breath sounds, prolonged expiratory phas, rhonchi, symmetrical, unlabored. ABSENT: rales, retraction, stridor Cardiovascular exam: PRESENT: RRR, +S1, +S2 Pulses: PRESENT: normal radial pulses GI/Abdominal exam: PRESENT: diminished bowel sounds, soft, other - PEG Extremities exam: ABSENT: calf tenderness, clubbing Musculoskeletal exam: ABSENT: deformity, dislocation Neurological exam: ABSENT: alert, awake, oriented to person Skin exam: PRESENT: dry, other - l foot wound Results Laboratory Results: 11/12/17 08:00 11/12/17 08:00 11/11/17 11/12/17 11/12/17 09:54 07:00 08:00 WBC 8.7 RBC 3.36 L Hgb 10.1 L Hct 30.4 L MCV 90 MCH 30.1 MCHC 33.3 RDW 15.8 H Plt Count 342 Seg Neutrophils % Not Reportable Lymphocytes % Not Reportable Monocytes % Not Reportable Eosinophils % Not Reportable Basophils % Not Reportable Absolute Neutrophils Not Reportable Absolute Lymphocytes Not Reportable Absolute Monocytes Not Reportable Absolute Eosinophils Not Reportable Absolute Basophils Not Reportable Carbonic Acid 1.09 HCO3/H2CO3 Ratio 19:1 ABG pH 7.39 ABG pCO2 36.3 ABG pO2 106.9 H ABG HCO3 21.4 ABG O2 Saturation 97.9 ABG Base Excess -3.2 FiO2 30% Sodium Potassium Chloride Carbon Dioxide Anion Gap BUN Creatinine Est GFR ( Amer) Est GFR (Non-Af Amer) Glucose 117 H Calcium 11/12/17 08:00 WBC RBC Hgb Hct MCV MCH MCHC RDW Plt Count Seg Neutrophils % Lymphocytes % Monocytes % Eosinophils % Basophils % Absolute Neutrophils Absolute Lymphocytes Absolute Monocytes Absolute Eosinophils Absolute Basophils Carbonic Acid HCO3/H2CO3 Ratio ABG pH ABG pCO2 ABG pO2 ABG HCO3 ABG O2 Saturation ABG Base Excess FiO2 Sodium 151.4 H Potassium 3.9 Chloride 122 H Carbon Dioxide 21 L Anion Gap 8 BUN 18 Creatinine 0.77 Est GFR ( Amer) > 60 Est GFR (Non-Af Amer) > 60 Glucose 83 Calcium 10.7 H 11/08/17 04:50 Stool - Stool - Final 11/08/17 04:50 Stool - Stool Stool Culture - Final NO SALMONELLA, SHIGELLA, CAMPYLOBACTER, OR E.COLI 0157 RECOVERED. NEGATIVE FOR SHIGA TOXINS 1&2. 11/07/17 16:15 Trach Site Gram Stain - Final 11/07/17 16:15 Trach Site Wound Culture - Final Pseudomonas Aeruginosa Mrsa (Meth Resis Staph Aureus) Citrobacter Freundii Skin Nan 11/07/17 11/07/17 11/07/17 10:00 15:55 22:25 CK-MB (CK-2) 0.92 0.63 0.52 Troponin I < 0.012 < 0.012 < 0.012 NT-Pro-B Natriuret Pep 11/08/17 11/09/17 11/10/17 03:48 03:50 04:01 CK-MB (CK-2) Troponin I NT-Pro-B Natriuret Pep 697 H 856 H 1150 H Impressions: Head CT 11/07/17 03:42 IMPRESSION: 1. No acute intracranial abnormality by CT criteria. This exam was performed according to our departmental dose-optimization program, which includes automated exposure control, adjustment of the mA and/or kV according to patient size and/or use of iterative reconstruction technique. Chest Ultrasound 11/11/17 08:28 IMPRESSION: Insufficient pleural fluid volume. Chest X-Ray 11/12/17 06:00 IMPRESSION: Interval worsening includes small bibasilar opacity-effusion. Assessment & Plan - Diagnosis (1) Tracheostomy dependence Is this a current diagnosis for this admission?: Yes Plan: Unchanged (2) Acute and chronic respiratory failure, unspecified whether with hypoxia or hypercapnia Is this a current diagnosis for this admission?: Yes Plan: both hypercapnic/hypoxic support as required (3) Dementia Qualifiers: Dementia type: unspecified type Dementia behavioral disturbance: without behavioral disturbance Qualified Code(s): F03.90 - Unspecified dementia without behavioral disturbance Is this a current diagnosis for this admission?: Yes (4) Gram-negative pneumonia Is this a current diagnosis for this admission?: Yes Plan: 11/07/17 20:11 Gram Stain - Final Tracheal Aspirate Sputum Culture - Final Pseudomonas Aeruginosa Greatly Reduced Normal Nan (5) MRSA (methicillin resistant Staphylococcus aureus) infection Is this a current diagnosis for this admission?: Yes Plan: 11/07/17 16:15 Gram Stain - Final Trach Site Wound Culture - Final Pseudomonas Aeruginosa Mrsa (Meth Resis Staph Aureus) Citrobacter Freundii Skin Nan 11/07/17 16:15 Gram Stain - Final G Tube (Peg Tube) Wound Culture - Final Mrsa (Meth Resis Staph Aureus) Enterobacter Aerogenes Skin Nan 11/07/17 16:15 Gram Stain - Final Foot - Left Wound Culture - Final Mrsa (Meth Resis Staph Aureus) 11/07/17 16:15 Gram Stain - Final Eye - Drainage Eye Culture - Final Mrsa (Meth Resis Staph Aureus) (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
--- NOTE | 2017-11-20 17:53 | PDOC PROGRESS REPORT ---
Subjective Progress Note for:: 11/14/17 Subjective:: increase free water via increase freq of flush po profound eosinophlia Reason For Visit: ACUTE HYPERCAPNIC RESPIRATORY FAILURE,CO2 NARCOSIS Physical Exam Vital Signs: Temp Pulse Resp BP Pulse Ox 98.3 F 81 28 H 151/71 H 97 11/15/17 07:42 11/15/17 08:32 11/15/17 08:00 11/15/17 07:42 11/15/17 10:05 Intake & Output 11/14/17 11/15/17 11/16/17 06:59 06:59 06:59 Intake Total 1146 2053 210 Output Total 2230 1400 Balance -1084 653 210 Weight 64.7 kg 64.7 kg General appearance: PRESENT: no acute distress, disheveled, well-developed. ABSENT: cooperative Head exam: PRESENT: atraumatic, normocephalic Eye exam: PRESENT: conjunctiva pale. ABSENT: nystagmus, periorbital swelling, scleral icterus Mouth exam: PRESENT: dry mucosa, neck supple, tongue midline Neck exam: PRESENT: tracheostomy. ABSENT: carotid bruit, JVD, lymphadenopathy, thyromegaly, tracheal deviation Respiratory exam: PRESENT: crackles, decreased breath sounds, prolonged expiratory phas, rhonchi, symmetrical, unlabored. ABSENT: rales, retraction, stridor, tachypnea Cardiovascular exam: PRESENT: RRR, +S1, +S2 Pulses: PRESENT: normal radial pulses GI/Abdominal exam: PRESENT: diminished bowel sounds, soft, other - PEG Extremities exam: ABSENT: calf tenderness, clubbing Musculoskeletal exam: ABSENT: deformity, dislocation Neurological exam: ABSENT: alert, awake, oriented to person Skin exam: PRESENT: dry, other - L foot wound Results Laboratory Results: 11/14/17 07:50 11/14/17 03:51 11/07/17 11/07/17 11/07/17 10:00 15:55 22:25 CK-MB (CK-2) 0.92 0.63 0.52 Troponin I < 0.012 < 0.012 < 0.012 NT-Pro-B Natriuret Pep 11/08/17 11/09/17 11/10/17 03:48 03:50 04:01 CK-MB (CK-2) Troponin I NT-Pro-B Natriuret Pep 697 H 856 H 1150 H Impressions: Head CT 11/07/17 03:42 IMPRESSION: 1. No acute intracranial abnormality by CT criteria. This exam was performed according to our departmental dose-optimization program, which includes automated exposure control, adjustment of the mA and/or kV according to patient size and/or use of iterative reconstruction technique. Chest Ultrasound 11/11/17 08:28 IMPRESSION: Insufficient pleural fluid volume. Chest X-Ray 11/14/17 06:00 IMPRESSION: 1. Small bilateral pleural effusions with increase on the right. 2. Bibasilar atelectasis or pneumonia Assessment & Plan - Diagnosis (1) Tracheostomy dependence Is this a current diagnosis for this admission?: Yes (2) Acute and chronic respiratory failure, unspecified whether with hypoxia or hypercapnia Is this a current diagnosis for this admission?: Yes Plan: both hypercapnic/hypoxic support as required (3) Dementia Qualifiers: Dementia type: unspecified type Dementia behavioral disturbance: without behavioral disturbance Qualified Code(s): F03.90 - Unspecified dementia without behavioral disturbance Is this a current diagnosis for this admission?: Yes (4) Gram-negative pneumonia Is this a current diagnosis for this admission?: Yes Plan: 11/07/17 20:11 Gram Stain - Final Tracheal Aspirate Sputum Culture - Final Pseudomonas Aeruginosa Greatly Reduced Normal Nan (5) MRSA (methicillin resistant Staphylococcus aureus) infection Is this a current diagnosis for this admission?: Yes Plan: 11/07/17 16:15 Gram Stain - Final Trach Site Wound Culture - Final Pseudomonas Aeruginosa Mrsa (Meth Resis Staph Aureus) Citrobacter Freundii Skin Nan 11/07/17 16:15 Gram Stain - Final G Tube (Peg Tube) Wound Culture - Final Mrsa (Meth Resis Staph Aureus) Enterobacter Aerogenes Skin Nan 11/07/17 16:15 Gram Stain - Final Foot - Left Wound Culture - Final Mrsa (Meth Resis Staph Aureus) 11/07/17 16:15 Gram Stain - Final Eye - Drainage Eye Culture - Final Mrsa (Meth Resis Staph Aureus) (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 Is this a current diagnosis for this admission?: Yes Plan: 11/07/17 16:15 Gram Stain - Final Foot - Left Wound Culture - Final Mrsa (Meth Resis Staph Aureus) (7) Polymicrobial bacterial infection Is this a current diagnosis for this admission?: Yes Plan: 11/07/17 20:11 Gram Stain - Final Tracheal Aspirate Sputum Culture - Final Pseudomonas Aeruginosa Greatly Reduced Normal Nan 11/07/17 20:11 Urine Culture - Final Catheterized Urine Citrobacter Freundii 11/07/17 16:15 Gram Stain - Final Trach Site Wound Culture - Final Pseudomonas Aeruginosa Mrsa (Meth Resis Staph Aureus) Citrobacter Freundii Skin Nan 11/07/17 16:15 Gram Stain - Final G Tube (Peg Tube) Wound Culture - Final Mrsa (Meth Resis Staph Aureus) Enterobacter Aerogenes Skin Nan 11/07/17 16:15 Gram Stain - Final Foot - Left Wound Culture - Final Mrsa (Meth Resis Staph Aureus) 11/07/17 16:15 Gram Stain - Final Eye - Drainage Eye Culture - Final Mrsa (Meth Resis Staph Aureus) - Time Total Critical Time (Minutes): 45
--- NOTE | 2017-11-20 17:56 | PDOC PROGRESS REPORT ---
Subjective Progress Note for:: 11/15/17 Subjective:: increase free water via increase freq of flush po profound eosinophlia Reason For Visit: ACUTE HYPERCAPNIC RESPIRATORY FAILURE,CO2 NARCOSIS Physical Exam Vital Signs: Temp Pulse Resp BP Pulse Ox 98.3 F 81 28 H 151/71 H 97 11/15/17 07:42 11/15/17 08:32 11/15/17 08:00 11/15/17 07:42 11/15/17 10:05 Intake & Output 11/14/17 11/15/17 11/16/17 06:59 06:59 06:59 Intake Total 1146 2053 210 Output Total 2230 1400 Balance -1084 653 210 Weight 64.7 kg 64.7 kg General appearance: PRESENT: no acute distress, disheveled. ABSENT: cooperative Head exam: PRESENT: atraumatic, normocephalic Eye exam: PRESENT: conjunctiva pale. ABSENT: nystagmus, periorbital swelling Mouth exam: PRESENT: dry mucosa, neck supple, tongue midline Neck exam: PRESENT: tracheostomy. ABSENT: carotid bruit, JVD, lymphadenopathy, thyromegaly, tracheal deviation Respiratory exam: PRESENT: crackles, decreased breath sounds, prolonged expiratory phas, rhonchi, symmetrical, unlabored. ABSENT: rales, retraction, stridor, tachypnea Cardiovascular exam: PRESENT: RRR, +S1, +S2 Pulses: PRESENT: normal radial pulses GI/Abdominal exam: PRESENT: diminished bowel sounds, soft Gentrourinary exam: PRESENT: indwelling catheter Extremities exam: ABSENT: calf tenderness, clubbing Musculoskeletal exam: ABSENT: deformity, dislocation Neurological exam: ABSENT: alert, awake, oriented to person Skin exam: PRESENT: dry, other - L foot wound Results Laboratory Results: 11/14/17 07:50 11/14/17 03:51 11/07/17 11/07/17 11/07/17 10:00 15:55 22:25 CK-MB (CK-2) 0.92 0.63 0.52 Troponin I < 0.012 < 0.012 < 0.012 NT-Pro-B Natriuret Pep 11/08/17 11/09/17 11/10/17 03:48 03:50 04:01 CK-MB (CK-2) Troponin I NT-Pro-B Natriuret Pep 697 H 856 H 1150 H Impressions: Head CT 11/07/17 03:42 IMPRESSION: 1. No acute intracranial abnormality by CT criteria. This exam was performed according to our departmental dose-optimization program, which includes automated exposure control, adjustment of the mA and/or kV according to patient size and/or use of iterative reconstruction technique. Chest Ultrasound 11/11/17 08:28 IMPRESSION: Insufficient pleural fluid volume. Chest X-Ray 11/14/17 06:00 IMPRESSION: 1. Small bilateral pleural effusions with increase on the right. 2. Bibasilar atelectasis or pneumonia Assessment & Plan - Diagnosis (1) Acute and chronic respiratory failure, unspecified whether with hypoxia or hypercapnia Is this a current diagnosis for this admission?: Yes Plan: both hypercapnic/hypoxic support as required (2) Dementia Qualifiers: Dementia type: unspecified type Dementia behavioral disturbance: without behavioral disturbance Qualified Code(s): F03.90 - Unspecified dementia without behavioral disturbance Is this a current diagnosis for this admission?: Yes (3) Gram-negative pneumonia Is this a current diagnosis for this admission?: Yes Plan: 11/07/17 20:11 Gram Stain - Final Tracheal Aspirate Sputum Culture - Final Pseudomonas Aeruginosa Greatly Reduced Normal Nan (4) MRSA (methicillin resistant Staphylococcus aureus) infection Is this a current diagnosis for this admission?: Yes Plan: 11/07/17 16:15 Gram Stain - Final Trach Site Wound Culture - Final Pseudomonas Aeruginosa Mrsa (Meth Resis Staph Aureus) Citrobacter Freundii Skin Nan 11/07/17 16:15 Gram Stain - Final G Tube (Peg Tube) Wound Culture - Final Mrsa (Meth Resis Staph Aureus) Enterobacter Aerogenes Skin Nan 11/07/17 16:15 Gram Stain - Final Foot - Left Wound Culture - Final Mrsa (Meth Resis Staph Aureus) 11/07/17 16:15 Gram Stain - Final Eye - Drainage Eye Culture - Final Mrsa (Meth Resis Staph Aureus) (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 Is this a current diagnosis for this admission?: Yes Plan: 11/07/17 16:15 Gram Stain - Final Foot - Left Wound Culture - Final Mrsa (Meth Resis Staph Aureus) (6) Polymicrobial bacterial infection Is this a current diagnosis for this admission?: Yes Plan: 11/07/17 20:11 Gram Stain - Final Tracheal Aspirate Sputum Culture - Final Pseudomonas Aeruginosa Greatly Reduced Normal Nan 11/07/17 20:11 Urine Culture - Final Catheterized Urine Citrobacter Freundii 11/07/17 16:15 Gram Stain - Final Trach Site Wound Culture - Final Pseudomonas Aeruginosa Mrsa (Meth Resis Staph Aureus) Citrobacter Freundii Skin Nan 11/07/17 16:15 Gram Stain - Final G Tube (Peg Tube) Wound Culture - Final Mrsa (Meth Resis Staph Aureus) Enterobacter Aerogenes Skin Nan 11/07/17 16:15 Gram Stain - Final Foot - Left Wound Culture - Final Mrsa (Meth Resis Staph Aureus) 11/07/17 16:15 Gram Stain - Final Eye - Drainage Eye Culture - Final Mrsa (Meth Resis Staph Aureus) - Time Total Critical Time (Minutes): 35
== END 2017-11-15 10:54 | DRG 207 ==
LOC: ER 03:16 → EH 07:49 → OBSVTOIN 08:13 → ICU 19:55 → 3S 11-13 15:15 → 3N 11-14 00:06
PROVIDERS: ADMIT Internal Medicine; ATTEND Internal Medicine
PROC: 5A1955Z Respiratory Ventilation, Greater than 96 Consecutive Hours (ICD-10-PCS; principal; 2017-11-07)
PROC: 3E0F73Z Introduction of Anti-inflammatory into Respiratory Tract, Via Natural or Artificial Opening (ICD-10-PCS; 2017-11-07)
DX: J96.02 Acute respiratory failure with hypercapnia (principal); G93.41 Metabolic encephalopathy; J15.212 Pneumonia due to Methicillin resistant Staphylococcus aureus; J15.1 Pneumonia due to Pseudomonas; L89.624 Pressure ulcer of left heel, stage 4; N39.0 Urinary tract infection, site not specified; A04.72 Enterocolitis due to Clostridium difficile, not specified as recurrent; M86.9 Osteomyelitis, unspecified; I50.32 Chronic diastolic (congestive) heart failure; J96.01 Acute respiratory failure with hypoxia; E21.0 Primary hyperparathyroidism; B96.5 Pseudomonas (aeruginosa) (mallei) (pseudomallei) as the cause of diseases classified elsewhere; Z22.322 Carrier or suspected carrier of Methicillin resistant Staphylococcus aureus; Z93.0 Tracheostomy status; I11.0 Hypertensive heart disease with heart failure; E11.51 Type 2 diabetes mellitus with diabetic peripheral angiopathy without gangrene; J44.9 Chronic obstructive pulmonary disease, unspecified; F03.90 Unspecified dementia, unspecified severity, without behavioral disturbance, psychotic disturbance, mood disturbance, and anxiety; E11.69 Type 2 diabetes mellitus with other specified complication; M15.3 Secondary multiple arthritis; E78.00 Pure hypercholesterolemia, unspecified; Z79.899 Other long term (current) drug therapy; Z88.8 Allergy status to other drugs, medicaments and biological substances; Z78.1 Physical restraint status; Z89.611 Acquired absence of right leg above knee; Z79.4 Long term (current) use of insulin; Z86.711 Personal history of pulmonary embolism; Z79.82 Long term (current) use of aspirin
CPT/HCPCS: 36415; 36600; 70450; 71045; 76604; 80048; 80053; 80061; 80076; 81001; 82140; 82553; 82803; 82947; 82962; 83036; 83605; 83615; 83690; 83735; 83880; 84100; 84439; 84443; 84484; 85025; 85610; 85730; 87040; 87045; 87070; 87077; 87086; 87088; 87186; 87205; 87493; 93005; 93010; 94002; 94003; 94640; 96361; 96365; 96372; 99285; J0696; J1335; J1650; J2405; J3370; J7030; J7060; J7620; J7685

== ENCOUNTER 2017-12-17 15:56 | Inpatient (IN) | payer MEDICARE, MEDICAID ==
--- NOTE | 2017-12-17 16:54 | ER Document Report ---
ED General - General Chief Complaint: Altered Mental Status Stated Complaint: ALTERED MENTAL STATUS Time Seen by Provider: 12/17/17 16:34 Notes: 82-year-old female recently home from rehab hospital. Had Palacios catheter in yesterday. Was recently pegged and trached. Has been getting tube feedings at home as well as IV cefepime. Daughter states that she became increasingly confused today. Reports that she has not been getting the liquid that she was getting when she was in the rehab hospital because home health change the feeding regimen and decreased her fluid intake by half. Had Palacios removed yesterday morning. Daughter states that she has increased confusion and not acting her normal self. Does have underlying history of dementia. History of CHF. History of COPD TRAVEL OUTSIDE OF THE [place] IN LAST 30 DAYS: No - HPI Onset: This morning Onset/Duration: Gradual Severity: Moderate - Related Data Allergies/Adverse Reactions: alprazolam [From Xanax] Allergy (Verified 08/12/17 10:54) iodine [Iodine] Allergy (Verified 08/12/17 10:54) quetiapine fumarate [From Seroquel] Allergy (Verified 08/12/17 10:54) Past Medical History - General Information source: Relative Cannot obtain history due to: Dementia - Social History Smoking Status: Never Smoker Frequency of alcohol use: None Drug Abuse: None Lives with: Family Family History: Reviewed & Not Pertinent - Past Medical History Cardiac Medical History: Reports: Hx Congestive Heart Failure, Hx Hypercholesterolemia, Hx Hypertension, Hx Peripheral Vascular Disease, Hx Pulmonary Embolism Pulmonary Medical History: Reports: Hx COPD Endocrine Medical History: Reports: Hx Diabetes Mellitus Type 2 Renal/ Medical History: Denies: Hx Peritoneal Dialysis Psychiatric Medical History: Reports: Hx Dementia Denies: Hx Depression Past Surgical History: Reports: Hx Abdominal Surgery - GI tube, Hx Orthopedic Surgery - Shoulder. 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., Other - tracheostomy - Immunizations Hx Diphtheria, Pertussis, Tetanus Vaccination: Yes Review of Systems - Review of Systems -: Yes ROS unobtainable due to patient's medical condition Physical Exam - Vital signs Vitals: Temp Resp Pulse Ox 98.6 F 18 100 12/17/17 16:04 12/17/17 16:04 12/17/17 16:04 Interpretation: Normal - General General appearance: Appears well, Alert - HEENT Head: Normocephalic, Atraumatic Eyes: Normal Pupils: PERRL Mucous membranes: Dry - Respiratory Respiratory status: No respiratory distress Chest status: Nontender Breath sounds: Normal Chest palpation: Normal - Cardiovascular Rhythm: Regular Heart sounds: Normal auscultation Murmur: No - Abdominal Inspection: Normal Distension: No distension Bowel sounds: Normal Tenderness: Nontender Organomegaly: No organomegaly - Back Back: Normal, Nontender - Extremities General upper extremity: Normal inspection, Nontender, Normal color, Normal ROM , Normal temperature General lower extremity: Nontender, Normal color, Normal ROM, Normal temperature , Normal weight bearing, Other - Right BKA. No: Flaquita's sign - Neurological Neuro grossly intact: Yes Cognition: Confused, Short term memory loss Orientation: AAOx4 Martin Coma Scale Eye Opening: Spontaneous [place] Coma Scale Verbal: Oriented [place] Coma Scale Motor: Obeys Commands [place] Coma Scale Total: 15 Speech: Normal Motor strength normal: LUE, RUE, LLE, RLE Sensory: Normal - Skin Skin Temperature: Warm Skin Moisture: Dry Skin Color: Normal Course - Re-evaluation Re-evalutation: 12/17/17 20:16 Family doesn't want to be taken care of by Dr. Barrow b/c of complaints they have had with him in the past. Dr. Barrow thinks she should go somewhere else because she may need pulm and neph which we don't have here weekend. Family is comfortable at this time being transferred. This will be transferred family request. Consulted Dr. Ulrich at [facility] accept patient for transfer. Repeat repeat chemistry ordered repeat normal saline bolus ordered. 12/17/17 20:18 12/17/17 20:56 Patient has been accepted by Dr. Ulrich to general medical floor at [facility]. I had a repeat discussion with Dr. Barrow regarding the patient. I have decided to call the hospitalist as more than likely this patient is just dehydrated as her creatinine is only 1. Unlikely patient will need a nephrology consult. Family members do not want to be seen by [facility] and hospitalist may be able to take care of patient over the weekend until Dr. Becker gets back. Will place a hold on the transfer at this time. 12/17/17 21:08 Dr. Wills is evaluating patient and feels comfortable keeping patient here until Tuesday when Dr. Becker is back in [facility]. Canceling transport at this time. - Vital Signs Vital signs: Temp Pulse Resp BP Pulse Ox 98.6 F 18 136/65 H 100 12/17/17 20:10 12/17/17 20:10 12/17/17 20:01 12/17/17 20:10 - Laboratory Result Diagrams: 12/17/17 16:10 12/17/17 16:10 Laboratory results interpreted by me: 12/17/17 12/17/17 12/17/17 16:10 16:10 17:15 WBC 12.9 H RBC 3.54 L Hgb 10.5 L Hct 33.3 L MCHC 31.4 L RDW 17.9 H Eosinophils % 8.9 H Absolute Eosinophils 1.1 H Sodium 150.0 H Potassium 6.0 H* Chloride 113 H BUN 74 H Est GFR (Non-Af Amer) 50 L Glucose 130 H Calcium 11.9 H Total Protein 8.7 H Urine Protein 100 H Urine Glucose (UA) 50 H Ur Leukocyte Esterase SMALL H Urine Ascorbic Acid 40 H - EKG Interpretation by Me EKG shows normal: Sinus rhythm, [place], Intervals, QRS Complexes, ST-T Waves Discharge - Discharge Clinical Impression: Hyperkalemia, diminished renal excretion, Dehydration Condition: Good Disposition: ADMITTED INPATIENT Admitting Provider: Hospitalist - danilo Unit Admitted: IMCU Referrals: BAKARI BECKER MD [Primary Care Provider] - Follow up as needed
[2017-12-17 17:23] LABS: ABSOLUTE BASOPHILS # (AUTO) 0.1 10^3/uL (0.0-0.2); ABSOLUTE EOSINOPHILS # (AUTO) 1.1 10^3/uL (0.0-0.6); ABSOLUTE LYMPHOCYTES (AUTO) 4.2 10^3/uL (0.5-4.7); ABSOLUTE MONOCYTES (AUTO) 1.1 10^3/uL (0.1-1.4); ABSOLUTE NEUT (AUTO) 6.4 10^3/uL (1.7-8.2); BASOPHILS % (AUTO) 1.1 % (0-2); EOSINOPHILS % (AUTO) 8.9 % (0-6); HEMATOCRIT 33.3 % (36.0-47.0); HEMOGLOBIN 10.5 g/dL (12.0-15.5); LYMPHOCYTES % (AUTO) 32.2 % (13-45); MEAN CORPUSCULAR HEMOGLOBIN 29.5 pg (27.0-33.4); MEAN CORPUSCULAR HGB CONC 31.4 g/dL (32.0-36.0); MEAN CORPUSCULAR VOLUME 94 fl (80-97); MONOCYTES % (AUTO) 8.3 % (3-13); PLATELET COUNT 331 10^3/uL (150-450); RED BLOOD COUNT 3.54 10^6/uL (3.72-5.28); RED CELL DISTRIBUTION WIDTH 17.9 % (11.5-14.0); SEGMENTED NEUTROPHILS % (AUTO) 49.5 % (42-78); TOTAL CELLS COUNTED % (AUTO) 100 %; WHITE BLOOD COUNT 12.9 10^3/uL (4.0-10.5)
[2017-12-17 17:28] LABS: ALANINE AMINOTRANSFERASE 50 U/L (9-52); ALBUMIN 4.3 g/dL (3.5-5.0); ALKALINE PHOSPHATASE 95 U/L (38-126); ANION GAP 10 (5-19); ASPARTATE AMINO TRANSFERASE 34 U/L (14-36); BILIRUBIN,DIRECT 0.3 mg/dL (0.0-0.4); BILIRUBIN,TOTAL 0.3 mg/dL (0.2-1.3); BLOOD UREA NITROGEN 74 mg/dL (7-20); CALCIUM 11.9 mg/dL (8.4-10.2); CARBON DIOXIDE 27 mmol/L (22-30); CHLORIDE 113 mmol/L (98-107); GLUCOSE 130 mg/dL (75-110); TOTAL PROTEIN 8.7 g/dL (6.3-8.2)
[2017-12-17] MEDS ORDERED: NORMAL SALINE 1000 ML 1,000 ML IV ONE ×2 (17:37→19:44)
[2017-12-17 17:49] LABS: AMORPHOUS SEDIMENT,URINE TRACE /HPF; APPEARANCE,URINE CLEAR; BILIRUBIN,URINE NEGATIVE (NEGATIVE); COLOR,URINE YELLOW; GLUCOSE, URINE 50 mg/dL (NEGATIVE); KETONES,URINE NEGATIVE (NEGATIVE); LEUKOCYTE ESTERASE,URINE SMALL (NEGATIVE); NITRITE,URINE NEGATIVE (NEGATIVE); PROTEIN,URINE 100 mg/dL (NEGATIVE); URINE SPECIFIC GRAVITY 1.013; UROBILINOGEN,URINE NEGATIVE mg/dL (<2.0)
--- NOTE | 2017-12-17 17:54 | RADIOLOGY REPORT (SQ) ---
EXAM DESCRIPTION: ACUTE ABDOMEN SERIES COMPLETED DATE/TIME: 12/17/2017 5:31 pm REASON FOR STUDY: abd pain COMPARISON: 05/05/2017 NUMBER OF VIEWS: Three views. TECHNIQUE: Frontal chest, supine abdomen and upright/decubitus abdomen radiographic images acquired. LIMITATIONS: None. FINDINGS: CHEST: Lungs clear of infiltrates. FREE AIR: None. No abnormal gas collections. BOWEL GAS PATTERN: Nonobstructive pattern. No dilated loops or air fluid levels. CALCIFICATIONS: No suspicious calcifications. HARDWARE: Apparent PEG tube. Palacios bladder catheter. Tracheostomy. SOFT TISSUES: No gross mass or suggestion of organomegaly. BONES: Osteopenia. Status post left total hip arthroplasty. No acute fracture. No worrisome bone l esions. OTHER: No other significant finding. IMPRESSION: NO RADIOGRAPHIC EVIDENCE FOR ACUTE ABDOMINAL DISEASE. TECHNICAL DOCUMENTATION: JOB ID: [id number] [employer]- All Rights Reserved Reading location - IP/workstation name: [email or web address]
[2017-12-17] MEDS ORDERED: ACETAMINOPHEN 325 MG TABLET PO PRN (20:47)
[2017-12-17] MEDS ORDERED: PROMETHAZINE HCL INJ 25 MG/1 ML VIAL IV PRN (20:47)
[2017-12-17] MEDS ORDERED: GLUCAGON,HUMAN RECOMB 1 MG INJ IM PRN (20:54)
[2017-12-17] MEDS ORDERED: DEXTROSE 40% GEL 15 GM TUBE PO PRN ×2 (20:54)
[2017-12-17] MEDS ORDERED: DEXTROSE 50%-WATER 25 GM/50 ML DISP.SYRIN IV PRN ×2 (20:54)
--- NOTE | 2017-12-17 21:58 | EKG REPORT ---
SEVERITY:- ABNORMAL ECG - SINUS RHYTHM FIRST DEGREE AV BLOCK LEFT ANTERIOR FASCICULAR BLOCK LEFT VENTRICULAR HYPERTROPHY : Confirmed by: Mirella Marrero 17-Dec-2017 21:57:27
[2017-12-17] MEDS: ALBUTEROL SULFATE 0.083% NEB 2.5 MG/3 ML AMPUL NEB PRN (22:10)
[2017-12-17 22:40] LABS: ANION GAP 7 (5-19); BLOOD UREA NITROGEN 62 mg/dL (7-20); CALCIUM 10.5 mg/dL (8.4-10.2); CARBON DIOXIDE 25 mmol/L (22-30); CHLORIDE 119 mmol/L (98-107); GLUCOSE 75 mg/dL (75-110); PHOSPHORUS 4.3 mg/dL (2.5-4.5); POTASSIUM 5.3 mmol/L (3.6-5.0)
--- NOTE | 2017-12-17 22:52 | PDOC H&P ---
History of Present Illness Admission Date/PCP: BAKARI BECKER MD Patient complains of: Altered mental status since yesterday per daughter. History of Present Illness: BRIANA BRADY is a 82 year old female with history of dementia of the Alzheimer's type, CHF, chronic respiratory failure/COPD (post PEG and trach with 5L Oxygen in 2015), UTIs/MRSA infections, type 2 diabetes mellitus, C. difficile 2 was admitted with above-mentioned complaint. She was last hospitalized from 11/07/2017 till 11/15/2017 with respiratory failure and was discharged to [facility]. Given the patient's mental status, the history was obtained from her daughter mostly and other family members at bedside. According to her daughter, the patient was discharged from [facility] on 2017 and she received a laxative prior to discharge since she was constipated for 4 days. She was also hyperkalemic so one of her BP medications was discontinued. She was apparently discharged on 7- day course of cefepime for UTI (she already finished 6 days yesterday). She was started on Glucerna 1.2 at 55 mL/h with 100 mL free water every 4 hours but her home health nurse changed her free water to 50 ML every 8 hours. The patient had a small bowel movement yesterday and this morning it was a large 1 per daughter. Since the patient continued to be constipated, her daughter gave her one suppository yesterday and some stool softener. The patient apparently complained of having some shortness of breath and feeling nauseous today. She also was complaining of a headache and she seemed very restless and "distant and not responding appropriately" as previously. Her daughter also noticed that her urine output has decreased today so she was concerned and brought her to the hospital. There was no fever reported. The patient had a Palacios catheter while in rehab which was changed a week ago. But since she was pulling on her Palacios catheter, it was removed yesterday by the visiting nurse. A new Palacios catheter has been reinserted here in the ED. In the ED, her temperature was 98.6, heart rate 92, respiratory rate 18, blood pressure 132/69 with oxygen saturation of 100% on 3 L via trach collar. Her WBC was 12.9 and her hemoglobin was 10.5. Her sodium was 150 and her potassium was 6.0. Her blood glucose was 130 with lactic acid of 0.8. UA and abdominal series were unremarkable. She received 2 L of normal saline with some improvement in her alertness per family. Past Medical History Medical History: Other - According to the family and based on previous records. Cardiac Medical History: Reports: Congestive Heart Failure, Hyperlipidema, Hypertension, Peripheral Vascular Disease, Pulmonary Embolism Pulmonary Medical History: Reports: Chronic Obstructive Pulmonary Disease (COPD) , Pneumonia - aspiration Endocrine Medical History: Reports: Diabetes Mellitus Type 2 Psychiatric Medical History: Reports: Dementia Denies: Depression Past Surgical History Past Surgical History: Reports: Orthopedic Surgery - Shoulder. 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 Social History Lives with: Family Smoking Status: Never Smoker Cigarettes Packs Per Day: 0 - He used to chew tobacco for 5 years. She quit 20 years ago. Frequency of Alcohol Use: None Hx Recreational Drug Use: No Drugs: None Hx Prescription Drug Abuse: No - Advance Directive Resuscitation Status: Do Not Resuscitate - but do ventilation using trach collar. Family History Parental Family History Reviewed: Yes - Mother: CVA. Children Family History Reviewed: No Sibling(s) Family History Reviewed.: Yes Medication/Allergy Home Medications: Albuterol Sulfate [Ventolin 0.083% Neb 2.5 mg/3 ml Ampul] 2.5 mg NEB Q6HP PRN Amlodipine Besylate [Norvasc 10 mg Tablet] 10 mg PO DAILY 11/07/17 Ascorbic Acid [Vitamin C 500 mg Tablet] 500 mg PO DAILY 11/07/17 Aspirin [Aspirin 81 mg Chewable Tablet] 81 mg PO DAILY 11/07/17 Gabapentin [Neurontin] 250 mg PO QPM 11/07/17 Insulin Aspart [Novolog Insulin (Aspart) 100 unit/mL] 0 units SUBCUT .SLD SCALE 11/07/17 Losartan Potassium [Cozaar 25 mg Tablet] 25 mg PO DAILY 11/07/17 Memantine HCl [Namenda 10 mg Tablet] 10 mg PO DAILY 11/07/17 Ondansetron HCl [Zofran 4 mg Tablet] 1 tab PO TIDP PRN 11/07/17 Allergies/Adverse Reactions: alprazolam [From Xanax] Allergy (Verified 08/12/17 10:54) iodine [Iodine] Allergy (Verified 08/12/17 10:54) quetiapine fumarate [From Seroquel] Allergy (Verified 08/12/17 10:54) Review of Systems ROS unobtainable: Other - Pertinent positives and negatives as detailed in the HPI. Physical Exam Vital Signs: Temp Pulse Resp BP Pulse Ox 98.6 F 18 136/65 H 100 12/17/17 20:10 12/17/17 20:10 12/17/17 20:01 12/17/17 20:10 General appearance: PRESENT: no acute distress, well-developed Head exam: PRESENT: atraumatic, normocephalic Eye exam: PRESENT: PERRLA, other - matting. Mouth exam: PRESENT: neck supple. ABSENT: moist Neck exam: PRESENT: full ROM. ABSENT: JVD Respiratory exam: PRESENT: decreased breath sounds. ABSENT: rales, rhonchi, wheezes Cardiovascular exam: PRESENT: RRR, +S1, +S2 Pulses: PRESENT: normal dorsalis pedis pul GI/Abdominal exam: PRESENT: normal bowel sounds, soft. ABSENT: distended, rebound, tenderness Rectal exam: PRESENT: deferred Neurological exam: PRESENT: alert, altered Skin exam: PRESENT: warm. ABSENT: erythema, rash Results Laboratory Results: 12/17/17 16:10 12/17/17 16:10 12/17/17 12/17/17 12/17/17 16:10 16:10 16:10 WBC 12.9 H RBC 3.54 L Hgb 10.5 L Hct 33.3 L MCV 94 MCH 29.5 MCHC 31.4 L RDW 17.9 H Plt Count 331 Seg Neutrophils % 49.5 Lymphocytes % 32.2 Monocytes % 8.3 Eosinophils % 8.9 H Basophils % 1.1 Absolute Neutrophils 6.4 Absolute Lymphocytes 4.2 Absolute Monocytes 1.1 Absolute Eosinophils 1.1 H Absolute Basophils 0.1 Sodium 150.0 H Potassium 6.0 H* Chloride 113 H Carbon Dioxide 27 Anion Gap 10 BUN 74 H Creatinine 1.06 Est GFR ( Amer) > 60 Est GFR (Non-Af Amer) 50 L Glucose 130 H Lactic Acid 0.8 Calcium 11.9 H Total Bilirubin 0.3 AST 34 ALT 50 Alkaline Phosphatase 95 Total Protein 8.7 H Albumin 4.3 Urine Color Urine Appearance Urine pH Ur Specific [place] Urine Protein Urine Glucose (UA) Urine Ketones Urine Blood Urine Nitrite Ur Leukocyte Esterase Urine WBC (Auto) Urine RBC (Auto) 12/17/17 17:15 WBC RBC Hgb Hct MCV MCH MCHC RDW Plt Count Seg Neutrophils % Lymphocytes % Monocytes % Eosinophils % Basophils % Absolute Neutrophils Absolute Lymphocytes Absolute Monocytes Absolute Eosinophils Absolute Basophils Sodium Potassium Chloride Carbon Dioxide Anion Gap BUN Creatinine Est GFR ( Amer) Est GFR (Non-Af Amer) Glucose Lactic Acid Calcium Total Bilirubin AST ALT Alkaline Phosphatase Total Protein Albumin Urine Color YELLOW Urine Appearance CLEAR Urine pH 6.0 Ur Specific [place] 1.013 Urine Protein 100 H Urine Glucose (UA) 50 H Urine Ketones NEGATIVE Urine Blood NEGATIVE Urine Nitrite NEGATIVE Ur Leukocyte Esterase SMALL H Urine WBC (Auto) 22 Urine RBC (Auto) 1 EKG Comments: 12-lead EKG, sinus rhythm, ventricular rate 80, axis -50, degree AV block, QTC prolongation, LVH, poor R-wave propagation, no acute changes. Similar to 12- lead EKG done on 11/07/2017. Impressions: Acute Abdomen Series 12/17/17 16:53 IMPRESSION: NO RADIOGRAPHIC EVIDENCE FOR ACUTE ABDOMINAL DISEASE. Assessment & Plan - Diagnosis (1) Acute encephalopathy Is this a current diagnosis for this admission?: Yes Plan: secondary to underlying dementia and delirium likely due to dehydration. UA and abdominal series were negative. She has been on cefepime for 6 days for UTI. Will continue IV hydration for now and follow-up cultures, TSH and B12. We will hold off on any further antibiotics given history of C. difficile 2. She already received 6 days of cefepime for UTI. We will consult nutrition in the morning for further adjustment of her tube feedings. (2) Hyperkalemia Is this a current diagnosis for this admission?: Yes Plan: No acute EKG changes. Will repeat stat BMP and treat if indicated. Of note, the patient apparently was either on DOM-I or ARB which was discontinued prior to her discharge from [facility] per her daughter. (3) Chronic respiratory failure with hypoxia and hypercapnia Is this a current diagnosis for this admission?: No Plan: She is currently on 3 L oxygen through her trach collar. CXR reviewed. (4) Type 2 diabetes mellitus Qualifiers: Diabetes mellitus fdc insulin use: with exterminator use Is this a current diagnosis for this admission?: Yes Plan: Will start Humalog sliding scale. According to her daughter, the patient is also on Levemir (dose needs to be checked). (5) Acute diarrhea Is this a current diagnosis for this admission?: Yes Plan: secondary to laxatives most likely but will check stool for C. difficile given that she was recently on cefepime for 6 days.The patient has a history of C. difficile x2 per daughter. Discussed code status with her daughter. She was very hesitant to make her DNR but she finally agreed with other family members. The patient is DO NOT RESUSCITATE but she still wants her to be on the ventilator via trach collar if she was in any respiratory distress. - Time Time Spent: Greater than 70 Minutes - Inpatient Certification Based on my medical assessment, after consideration of the patient's comorbidities, presenting symptoms, or acuity I expect that the services needed warrant INPATIENT care.: Yes I certify that my determination is in accordance with my understanding of Medicare's requirements for reasonable and necessary INPATIENT services [42 CFR 412.3e].: Yes
[2017-12-18] MEDS: HEPARIN SOD (PORCINE) 5,000 UNIT/ML 1 ML SYRINGE SUBCUT SCH ×4 (02:17→22:49)
[2017-12-18] MEDS: TOBRAMYCIN SULFATE/DEXAMETH OPH SUSP 2.5 ML OU SCH ×5 (02:18→23:26)
[2017-12-18 04:54] LABS: HEMATOCRIT 30.5 % (36.0-47.0); HEMOGLOBIN 9.7 g/dL (12.0-15.5); MEAN CORPUSCULAR HEMOGLOBIN 29.9 pg (27.0-33.4); MEAN CORPUSCULAR HGB CONC 31.7 g/dL (32.0-36.0); MEAN CORPUSCULAR VOLUME 94 fl (80-97); PLATELET COUNT 288 10^3/uL (150-450); RED BLOOD COUNT 3.23 10^6/uL (3.72-5.28); RED CELL DISTRIBUTION WIDTH 17.8 % (11.5-14.0); WHITE BLOOD COUNT 11.9 10^3/uL (4.0-10.5)
[2017-12-18 05:21] LABS: ANION GAP 6 (5-19); BLOOD UREA NITROGEN 60 mg/dL (7-20); CALCIUM 10.5 mg/dL (8.4-10.2); CARBON DIOXIDE 23 mmol/L (22-30); CHLORIDE 122 mmol/L (98-107); GLUCOSE 87 mg/dL (75-110); POTASSIUM 5.4 mmol/L (3.6-5.0); SODIUM 151.2 mmol/L (137-145)
[2017-12-18] MEDS: ALBUTEROL SULFATE 0.083% NEB 2.5 MG/3 ML AMPUL NEB PRN ×2 (08:57→16:08)
--- NOTE | 2017-12-18 13:57 | PDOC PROGRESS REPORT ---
Subjective Progress Note for:: 12/18/17 Subjective:: She was easily arousable. Breathing is even an unlabored. There was no family at bedside to see if she is back at her baseline or not. Reason For Visit: ALTERED MENTAL STATUS Physical Exam Vital Signs: Temp Pulse Resp BP Pulse Ox 98.2 F 82 18 136/50 H 99 12/18/17 12:38 12/18/17 12:38 12/18/17 12:38 12/18/17 12:38 12/18/17 12:38 Intake & Output 12/17/17 12/18/17 12/19/17 06:59 06:59 06:59 Intake Total 525 Balance 525 Weight 63.7 kg General appearance: PRESENT: no acute distress, well-developed, well-nourished Head exam: PRESENT: atraumatic, normocephalic Eye exam: ABSENT: scleral icterus Neck exam: ABSENT: carotid bruit, JVD, lymphadenopathy, thyromegaly Respiratory exam: PRESENT: clear to auscultation monica - trach in place. ABSENT: rales, rhonchi, wheezes Cardiovascular exam: PRESENT: RRR. ABSENT: diastolic murmur, rubs, systolic murmur Pulses: PRESENT: normal dorsalis pedis pul Vascular exam: PRESENT: normal capillary refill GI/Abdominal exam: PRESENT: normal bowel sounds, soft. ABSENT: distended, guarding, mass, organolmegaly, rebound, tenderness Rectal exam: PRESENT: deferred Extremities exam: PRESENT: full ROM. ABSENT: calf tenderness, clubbing, pedal edema Neurological exam: PRESENT: alert, awake. ABSENT: motor sensory deficit Skin exam: PRESENT: dry, intact, warm. ABSENT: cyanosis, rash Results Laboratory Results: 12/18/17 04:05 12/18/17 04:05 12/17/17 12/17/17 12/18/17 22:05 22:05 04:05 WBC 11.9 H RBC 3.23 L Hgb 9.7 L Hct 30.5 L MCV 94 MCH 29.9 MCHC 31.7 L RDW 17.8 H Plt Count 288 Sodium 151.0 H Potassium 5.3 H Chloride 119 H Carbon Dioxide 25 Anion Gap 7 BUN 62 H Creatinine 0.95 Est GFR ( Amer) > 60 Est GFR (Non-Af Amer) 56 L Glucose 75 Calcium 10.5 H Phosphorus 4.3 Magnesium 2.5 H Ammonia 9.4 Vitamin B12 12/18/17 12/18/17 04:05 04:05 WBC RBC Hgb Hct MCV MCH MCHC RDW Plt Count Sodium 151.2 H Potassium 5.4 H Chloride 122 H Carbon Dioxide 23 Anion Gap 6 BUN 60 H Creatinine 0.98 Est GFR ( Amer) > 60 Est GFR (Non-Af Amer) 54 L Glucose 87 Calcium 10.5 H Phosphorus Magnesium Ammonia Vitamin B12 912.0 12/17/17 12/18/17 12/18/17 22:05 04:05 10:23 Troponin I 0.016 0.013 0.013 Impressions: Acute Abdomen Series 12/17/17 16:53 IMPRESSION: NO RADIOGRAPHIC EVIDENCE FOR ACUTE ABDOMINAL DISEASE. Assessment & Plan - Diagnosis (1) Chronic respiratory failure with hypoxia and hypercapnia Is this a current diagnosis for this admission?: Yes Plan: continue to monitor. no respiratory distress. She is a DNR but the family is ok with being put on vent if needed as she already has a trach (2) Dehydration Is this a current diagnosis for this admission?: Yes Plan: continuing to hydrate and monitor. is getting free fluid flushes as well as 1/2 normal saline. repeat CMP in the AM (3) Hyperkalemia Is this a current diagnosis for this admission?: Yes Plan: hydration and monitoring. No EKG changes, repeat CMP in AM (4) Type 2 diabetes mellitus Qualifiers: Diabetes mellitus fpc insulin use: with fpc use Is this a current diagnosis for this admission?: Yes Plan: continue monitoring and SSI, glucose well controlled (5) Acute encephalopathy Is this a current diagnosis for this admission?: Yes Plan: still feel this is secondary to dehydration. continue fluids and monitoring. - Time Time Spent with patient: 25-34 minutes Medications reviewed and adjusted accordingly: Yes Anticipated discharge: SNF Within: within 72 hours, Other - Inpatient Certification Based on my medical assessment, after consideration of the patient's comorbidities, presenting symptoms, or acuity I expect that the services needed warrant INPATIENT care.: Yes I certify that my determination is in accordance with my understanding of Medicare's requirements for reasonable and necessary INPATIENT services [42 CFR 412.3e].: Yes Medical Necessity: Significant Comorbidiites Make Outpatient Treatment Too Risky , Need Close Monitoring Due to Risk of Patient Decompensation, Need for IV Antibiotics
[2017-12-18] MEDS ORDERED: ONDANSETRON HCL INJ/PF 4 MG/2 ML SDV ONE (16:50)
[2017-12-18] MEDS ORDERED: ONDANSETRON HCL INJ/PF 4 MG/2 ML SDV IV PRN (16:58)
[2017-12-18 23:31] LABS: ARTERIAL BLOOD BASE EXCESS -5.2 mmol/L; ARTERIAL BLOOD H2CO3 1.41 mmol/L (1.05-1.35); ARTERIAL BLOOD HCO3 21.5 mmol/L (20-26); ARTERIAL BLOOD PCO2 46.7 mmHg (35-45); ARTERIAL BLOOD PH 7.28 (7.35-7.45); ARTERIAL BLOOD PO2 103.5 mmHg (80-100); ARTERIAL BLOOD TOTAL CO2 22.9 mmol/L (21-25)
[2017-12-18 23:33] LABS: ARTERIAL BLOOD FIO2 30%
[2017-12-19] MEDS: 1/2 NORMAL SALINE 1,000 ML IV PRN (01:13)
[2017-12-19 05:46] LABS: ALANINE AMINOTRANSFERASE 34 U/L (9-52); ALBUMIN 3.5 g/dL (3.5-5.0); ALKALINE PHOSPHATASE 88 U/L (38-126); ANION GAP 8 (5-19); ASPARTATE AMINO TRANSFERASE 31 U/L (14-36); BILIRUBIN,DIRECT 0.4 mg/dL (0.0-0.4); BILIRUBIN,TOTAL 0.4 mg/dL (0.2-1.3); BLOOD UREA NITROGEN 50 mg/dL (7-20); CALCIUM 10.4 mg/dL (8.4-10.2); CARBON DIOXIDE 20 mmol/L (22-30); CHLORIDE 119 mmol/L (98-107); GLUCOSE 79 mg/dL (75-110); POTASSIUM 5.5 mmol/L (3.6-5.0); SODIUM 146.5 mmol/L (137-145); TOTAL PROTEIN 7.7 g/dL (6.3-8.2)
[2017-12-19] MEDS: HEPARIN SOD (PORCINE) 5,000 UNIT/ML 1 ML SYRINGE SUBCUT SCH ×3 (05:50→22:21)
[2017-12-19] MEDS: TOBRAMYCIN SULFATE/DEXAMETH OPH SUSP 2.5 ML OU SCH ×4 (05:58→23:55)
--- NOTE | 2017-12-19 08:49 | PROGRESS NOTE E ---
Progress Note NAME: BRIANA BRADY : 1935 AGE: 82Y DATE: 12/19/2017 ROOM: 538 CHIEF COMPLAINT: Unobtainable. SUBJECTIVE: Ms. Brady is currently lying in bed. The patient will open her eyes to verbal stimuli and shakes her head no when asking if she is in any pain. However that is the extent of the patient's communication but, according to the nursing staff, this is improved in comparison to yesterday. The patient has had no report of episodes of vomiting nor any significant diarrhea. The patient has been afebrile. Her blood pressures have been in the decent range. The patient has been tolerating her feedings and flushes, and the patient does not voice any other concerns at this time. REVIEW OF SYSTEMS: Rest of the review of systems is negative. MEDICATIONS Medications have been reviewed. OBJECTIVE: GENERAL: Ms. Brady is an 82-year-old female who is awake but unable to assess orientation. She does not appear to be distressed. VITAL SIGNS: Temperature 98.7, pulse 97, respirations 17, blood pressure is 141/51, oxygen saturation is 97% on 6 liters trach collar. SKIN: Very dry, very poor skin turgor. No rashes, not arthritic. HEENT: Pupils are reactive. Trach collar in place. No evidence of JVP. CVS: Heart is regular. No rub. CHEST: Diminished, symmetrical, labored. ABDOMEN: Nontender, nondistended. GENITOURINARY: The patient's Silva does appear to be leaking. EXTREMITIES: No clubbing or cyanosis. The patient is a right AKA. PSYCHIATRIC: Unable to fully assess. DIAGNOSTICS: Hematology done on 12/18/2017: WBC 1.9, hemoglobin 10.7, hematocrit 30.5, platelet count 288,000. Chemistry obtained on 12/19/2017: Sodium was 146, potassium 5.5, chloride 108, carbon dioxide 20, BUN 50, creatinine 0.90, glucose 79, calcium 10.4. Bilirubin 0.4, AST 31, ALT 34, alkaline phosphatase 88. Total protein 7.7, albumin 3.5. IMPRESSION AND PLAN: 1. HYPONATREMIA due to profound dehydration secondary to free water deficit. Will increase the patient's PEG feedings. Although labs continue to improve, the patient still is clinically very dehydrated. We will also continue 1/2 normal and follow. 2. HYPERKALEMIA. No EKG changes. Will repeat chemistry in the a.m. and continue to aggressively hydrate. 3. ACUTE ENCEPHALOPATHY. Most likely secondary to number one. Continue to monitor. 4. CHRONIC RESPIRATORY FAILURE WITH HYPOXIA AND HYPERCAPNIA. Overall, stable. The patient has had no distress. Continue her home nebulizers and trach collar settings. Patient is a DNR, but the family is okay with the patient being vented if needed given that she does have a trach. 5. DIABETES MELLITUS TYPE 2. Glucose is well controlled. Continue sliding-scale coverage. 6. SILVA. The patient's Silva does appear to be leaking. If the patient does not have a chronic indwelling Silva, we will discontinue Silva at this time. If not, we will change out. DISPOSITION: THE PATIENT IS A [id number] BUT OKAY FOR MECHANICAL VENTILATION. The patient is also PEG tube feeding dependent. Pending patient's symptomatology and diagnostic findings, we will reevaluate in a.m. The patient appears to be slightly improved. We will continue to hydrate. The patient will return to a SNF as soon as stable. Time spent on this followup including assessment, plan, physical examination, and review of records is 25 minutes. DICTATING PHYSICIAN: JENA CASPER NP [id number] KELLEYY#: [id number] ID: [id number] JOB#: [id number] ACCT: [id number] cc: > ADDENDUM: Patient is followed by Dr. Singh who has agreed to resume care on the patient. ILDA
[2017-12-19] MEDS: ALBUTEROL SULFATE 0.083% NEB 2.5 MG/3 ML AMPUL NEB SCH ×3 (08:57→19:50)
[2017-12-19] MEDS ORDERED: MULTIVITAMIN PO SCH (10:00)
[2017-12-19] MEDS ORDERED: BULGARICUS PO SCH (10:00)
[2017-12-19] MEDS ORDERED: ACIDOPHILUS PO SCH (10:00)
[2017-12-19] MEDS: LACTOBACILLUS ACIDOPHILUS 250 MG TAB PO SCH (12:25)
[2017-12-19] MEDS: MULTIVITAMIN TABLET PO SCH (12:25)
[2017-12-19] MEDS: ASCORBIC ACID 500 MG TABLET PO SCH (12:26)
[2017-12-19] MEDS: ASPIRIN 81 MG TABLET, ENT COATED PO SCH (12:26)
[2017-12-19] MEDS: MEMANTINE HCL 10 MG TABLET PO SCH (12:27)
[2017-12-19] MEDS: AMLODIPINE BESYLATE 10 MG TABLET PO SCH (12:27)
[2017-12-19] MEDS: INSULIN DETEMIR 100 UNIT/ML 3 ML PEN SUBCUT SCH (12:36)
[2017-12-20] MEDS: ALBUTEROL SULFATE 0.083% NEB 2.5 MG/3 ML AMPUL NEB SCH ×4 (01:32→20:57)
[2017-12-20 04:47] LABS: HEMOGLOBIN 9.2 g/dL (12.0-15.5); MEAN CORPUSCULAR HEMOGLOBIN 29.6 pg (27.0-33.4); MEAN CORPUSCULAR HGB CONC 31.6 g/dL (32.0-36.0); MEAN CORPUSCULAR VOLUME 94 fl (80-97); PLATELET COUNT 300 10^3/uL (150-450); RED BLOOD COUNT 3.09 10^6/uL (3.72-5.28); WHITE BLOOD COUNT 11.5 10^3/uL (4.0-10.5)
[2017-12-20 05:05] LABS: ANION GAP 8 (5-19); BLOOD UREA NITROGEN 43 mg/dL (7-20); CALCIUM 10.6 mg/dL (8.4-10.2); CARBON DIOXIDE 22 mmol/L (22-30); CHLORIDE 117 mmol/L (98-107); GLUCOSE 93 mg/dL (75-110); SODIUM 147.2 mmol/L (137-145)
[2017-12-20] MEDS: HEPARIN SOD (PORCINE) 5,000 UNIT/ML 1 ML SYRINGE SUBCUT SCH ×3 (06:21→21:03)
[2017-12-20] MEDS: TOBRAMYCIN SULFATE/DEXAMETH OPH SUSP 2.5 ML OU SCH ×3 (06:21→17:45)
[2017-12-20] MEDS: INSULIN DETEMIR 100 UNIT/ML 3 ML PEN SUBCUT SCH (10:46)
[2017-12-20] MEDS: MULTIVITAMIN TABLET PO SCH (10:46)
[2017-12-20] MEDS: AMLODIPINE BESYLATE 10 MG TABLET PO SCH (10:47)
[2017-12-20] MEDS: ASCORBIC ACID 500 MG TABLET PO SCH (10:47)
[2017-12-20] MEDS: ASPIRIN 81 MG TABLET, ENT COATED PO SCH (10:47)
[2017-12-20] MEDS: MEMANTINE HCL 10 MG TABLET PO SCH (10:48)
[2017-12-20] MEDS: LACTOBACILLUS ACIDOPHILUS 250 MG TAB PO SCH (10:48)
--- NOTE | 2017-12-20 21:23 | PDOC PROGRESS REPORT ---
Subjective Progress Note for:: 12/20/17 Subjective:: She was seen by the bedside, no acute distress, admitted by hospitalist for the management of acute encephalopathy, chronic respiratory failure, tracheostomy dependency, underlying dementia Reason For Visit: ALTERED MENTAL STATUS Physical Exam Vital Signs: Temp Pulse Resp BP Pulse Ox 98.0 F 87 20 143/62 H 95 12/20/17 15:14 12/20/17 19:00 12/20/17 14:14 12/20/17 15:14 12/20/17 16:55 Intake & Output 12/19/17 12/20/17 12/21/17 06:59 06:59 06:59 Intake Total 1763 2109 900 Output Total 1500 1075 800 Balance 263 1034 100 Weight 67.3 kg General appearance: PRESENT: no acute distress Eye exam: PRESENT: PERRLA Respiratory exam: PRESENT: clear to auscultation monica Cardiovascular exam: PRESENT: +S1, +S2 GI/Abdominal exam: PRESENT: soft Neurological exam: PRESENT: alert Results Laboratory Results: 12/20/17 04:35 12/20/17 04:35 12/20/17 12/20/17 04:35 04:35 WBC 11.5 H RBC 3.09 L Hgb 9.2 L Hct 29.0 L MCV 94 MCH 29.6 MCHC 31.6 L RDW 17.0 H Plt Count 300 Sodium 147.2 H Potassium 5.0 Chloride 117 H Carbon Dioxide 22 Anion Gap 8 BUN 43 H Creatinine 0.85 Est GFR ( Amer) > 60 Est GFR (Non-Af Amer) > 60 Glucose 93 Calcium 10.6 H Magnesium 2.0 12/17/17 12/18/17 12/18/17 22:05 04:05 10:23 Troponin I 0.016 0.013 0.013 Impressions: Acute Abdomen Series 12/17/17 16:53 IMPRESSION: NO RADIOGRAPHIC EVIDENCE FOR ACUTE ABDOMINAL DISEASE. Assessment & Plan - Diagnosis (1) Dementia Qualifiers: Dementia type: Alzheimer's disease Alzheimer's disease onset: late-onset Dementia behavioral disturbance: without behavioral disturbance Qualified Code (s): G30.1 - Alzheimer's disease with late onset; F02.80 - Dementia in other diseases classified elsewhere without behavioral disturbance; F02.80 - Dementia in other diseases classified elsewhere without behavioral disturbance; F02.80 - Dementia in other diseases classified elsewhere without behavioral disturbance Is this a current diagnosis for this admission?: Yes (2) Acute encephalopathy Is this a current diagnosis for this admission?: Yes (3) Chronic respiratory failure with hypoxia and hypercapnia Is this a current diagnosis for this admission?: Yes (4) Dehydration Is this a current diagnosis for this admission?: Yes - Plan Summary Plan Summary: She may need a positive pressure ventilation more so at night, will consult Dr. webb
[2017-12-20] MEDS ORDERED: DOXEPIN HCL 25 MG CAPSULE PO ONE (22:30)
[2017-12-21] MEDS: TOBRAMYCIN SULFATE/DEXAMETH OPH SUSP 2.5 ML OU SCH ×5 (00:15→23:38)
[2017-12-21] MEDS: ALBUTEROL SULFATE 0.083% NEB 2.5 MG/3 ML AMPUL NEB SCH ×4 (02:16→19:56)
[2017-12-21] MEDS: HEPARIN SOD (PORCINE) 5,000 UNIT/ML 1 ML SYRINGE SUBCUT SCH ×3 (05:03→21:15)
[2017-12-21] MEDS: 1/2 NORMAL SALINE 1,000 ML IV PRN (05:42)
[2017-12-21] MEDS: AMLODIPINE BESYLATE 10 MG TABLET PO SCH (10:54)
[2017-12-21] MEDS: ASPIRIN 81 MG TABLET, ENT COATED PO SCH (10:54)
[2017-12-21] MEDS: ASCORBIC ACID 500 MG TABLET PO SCH (10:54)
[2017-12-21] MEDS: LACTOBACILLUS ACIDOPHILUS 250 MG TAB PO SCH (10:55)
[2017-12-21] MEDS: MULTIVITAMIN TABLET PO SCH (10:55)
[2017-12-21] MEDS: MEMANTINE HCL 10 MG TABLET PO SCH (10:55)
[2017-12-21] MEDS: INSULIN DETEMIR 100 UNIT/ML 3 ML PEN SUBCUT SCH (10:55)
[2017-12-21] MEDS: ONDANSETRON HCL INJ/PF 4 MG/2 ML SDV IV PRN (19:07)
--- NOTE | 2017-12-21 20:00 | PDOC PROGRESS REPORT ---
Subjective Progress Note for:: 12/21/17 Subjective:: She was seen by the bedside,, There is no new complaints Reason For Visit: ALTERED MENTAL STATUS Physical Exam Vital Signs: Temp Pulse Resp BP Pulse Ox 98.2 F 90 16 159/70 H 94 12/21/17 12:38 12/21/17 19:00 12/21/17 13:36 12/21/17 12:38 12/21/17 13:36 Intake & Output 12/20/17 12/21/17 12/22/17 06:59 06:59 06:59 Intake Total 2109 2320 900 Output Total 1075 1650 1500 Balance 1034 670 -600 General appearance: PRESENT: no acute distress Eye exam: PRESENT: PERRLA Respiratory exam: PRESENT: clear to auscultation monica Cardiovascular exam: PRESENT: +S1, +S2 GI/Abdominal exam: PRESENT: soft Neurological exam: PRESENT: alert Results Laboratory Results: 12/20/17 04:35 12/20/17 04:35 12/17/17 12/18/17 12/18/17 22:05 04:05 10:23 Troponin I 0.016 0.013 0.013 Impressions: Acute Abdomen Series 12/17/17 16:53 IMPRESSION: NO RADIOGRAPHIC EVIDENCE FOR ACUTE ABDOMINAL DISEASE. 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
[2017-12-22] MEDS: ALBUTEROL SULFATE 0.083% NEB 2.5 MG/3 ML AMPUL NEB SCH ×4 (01:56→19:53)
[2017-12-22] MEDS: TOBRAMYCIN SULFATE/DEXAMETH OPH SUSP 2.5 ML OU SCH ×3 (06:16→18:39)
[2017-12-22] MEDS: HEPARIN SOD (PORCINE) 5,000 UNIT/ML 1 ML SYRINGE SUBCUT SCH ×3 (06:16→21:47)
[2017-12-22] MEDS: ASCORBIC ACID 500 MG TABLET PO SCH (09:53)
[2017-12-22] MEDS: AMLODIPINE BESYLATE 10 MG TABLET PO SCH (09:53)
[2017-12-22] MEDS: MULTIVITAMIN TABLET PO SCH (09:54)
[2017-12-22] MEDS: ASPIRIN 81 MG TABLET, ENT COATED PO SCH (09:54)
[2017-12-22] MEDS: MEMANTINE HCL 10 MG TABLET PO SCH (09:54)
[2017-12-22] MEDS: LACTOBACILLUS ACIDOPHILUS 250 MG TAB PO SCH (09:54)
[2017-12-22] MEDS: INSULIN DETEMIR 100 UNIT/ML 3 ML PEN SUBCUT SCH (09:55)
[2017-12-22] MEDS: INSULIN LISPRO 100 UNIT/ML 3 ML VIAL SUBCUT PRN (12:44)
--- NOTE | 2017-12-22 13:31 | OPERATIVE REPORT E ---
Operative Report NAME: BRIANA BRADY : 1935 AGE: 82Y DATE OF SURGERY: ROOM: 538 PREOPERATIVE DIAGNOSIS: PULLED OUT TRACHEOSTOMY TUBE. POSTOPERATIVE DIAGNOSIS: PULLED OUT TRACHEOSTOMY TUBE. OPERATION: Replacement of new #6 Shiley tracheal tube. SURGEON: MERLINE JONES M.D. INDICATION: This is an 82-year-old female with a history of dementia of the Alzheimer's type who had a trach put in about 1-1/2 years ago. The patient is admitted at this time for altered mental status. Patient somehow pulled out her trach tube this morning. PROCEDURE: With the help of the respiratory therapist holding the patient's head, I was able to put in a #6 Shiley trach tube with the use of Surgilube. The trach tube went in easily with the obturator. The obturator was then removed and inner cannula placed into the trach tube. The trach was then anchored around the neck with a trach collar. The patient tolerated the procedure well. DICTATING PHYSICIAN: MERLINE JONES M.D. [id number] PHY#: [id number] ID: [id number] JOB#: [id number] ACCT: [id number] cc:MERLINE JONES M.D. >
[2017-12-22 15:10] LABS: ARTERIAL BLOOD H2CO3 1.34 mmol/L (1.05-1.35); ARTERIAL BLOOD HCO3 21.4 mmol/L (20-26); ARTERIAL BLOOD O2 SATURATION 91.7 % (94-98); ARTERIAL BLOOD PCO2 44.6 mmHg (35-45); ARTERIAL BLOOD PO2 68.1 mmHg (80-100); ARTERIAL BLOOD TOTAL CO2 22.8 mmol/L (21-25)
[2017-12-22 15:26] LABS: ARTERIAL BLOOD FIO2 40%
[2017-12-22] MEDS: ONDANSETRON HCL INJ/PF 4 MG/2 ML SDV IV PRN (16:10)
[2017-12-22 18:19] LABS: ABSOLUTE BASOPHILS # (AUTO) 0.2 10^3/uL (0.0-0.2); ABSOLUTE EOSINOPHILS # (AUTO) 0.5 10^3/uL (0.0-0.6); ABSOLUTE LYMPHOCYTES (AUTO) 3.2 10^3/uL (0.5-4.7); ABSOLUTE MONOCYTES (AUTO) 1.3 10^3/uL (0.1-1.4); ABSOLUTE NEUT (AUTO) 8.1 10^3/uL (1.7-8.2); BASOPHILS % (AUTO) 1.1 % (0-2); EOSINOPHILS % (AUTO) 3.5 % (0-6); HEMATOCRIT 29.8 % (36.0-47.0); HEMOGLOBIN 9.6 g/dL (12.0-15.5); LYMPHOCYTES % (AUTO) 24.4 % (13-45); MEAN CORPUSCULAR HEMOGLOBIN 29.8 pg (27.0-33.4); MEAN CORPUSCULAR VOLUME 93 fl (80-97); MONOCYTES % (AUTO) 9.7 % (3-13); PLATELET COUNT 315 10^3/uL (150-450); RED CELL DISTRIBUTION WIDTH 16.9 % (11.5-14.0); SEGMENTED NEUTROPHILS % (AUTO) 61.3 % (42-78); TOTAL CELLS COUNTED % (AUTO) 100 %; WHITE BLOOD COUNT 13.2 10^3/uL (4.0-10.5)
[2017-12-22 18:35] LABS: ALANINE AMINOTRANSFERASE 29 U/L (9-52); ALBUMIN 3.7 g/dL (3.5-5.0); ALKALINE PHOSPHATASE 89 U/L (38-126); ANION GAP 8 (5-19); ASPARTATE AMINO TRANSFERASE 26 U/L (14-36); BILIRUBIN,DIRECT 0.2 mg/dL (0.0-0.4); BILIRUBIN,TOTAL 0.2 mg/dL (0.2-1.3); BLOOD UREA NITROGEN 27 mg/dL (7-20); CALCIUM 10.8 mg/dL (8.4-10.2); CARBON DIOXIDE 24 mmol/L (22-30); CHLORIDE 110 mmol/L (98-107); GLUCOSE 105 mg/dL (75-110); POTASSIUM 5.2 mmol/L (3.6-5.0); SODIUM 142.2 mmol/L (137-145); TOTAL PROTEIN 7.5 g/dL (6.3-8.2)
--- NOTE | 2017-12-22 20:43 | PDOC PROGRESS REPORT ---
Subjective Progress Note for:: 12/22/17 Subjective:: Patient was seen by the bedside, patient's daughter is requesting that patient be transferred to [facility] in [place], I did not see any indication for transfer if anything she needs to be discharged home with home health, she refused rehabilitation in the correction, the last time she was admitted she was transferred to [facility] because the family requested for transfer,at that time too there was no indication for transfer but I agreed to the request. She spent a couple of weeks in [facility] in [facility] she was discharged home on IV antibiotic only for her to be readmitted few days after discharge from [facility], she is now again requesting for another transfer, I believe this is very inappropriate use of healthcare resources. I will request for consultation from discharge planning to arrange for discharge back home with home health since family does not want her transferred to a correction.The trach came off today this was reinserted by the surgeon presently on trach collar Reason For Visit: ALTERED MENTAL STATUS Physical Exam Vital Signs: Temp Pulse Resp BP Pulse Ox 97.9 F 96 18 151/67 H 95 12/22/17 16:00 12/22/17 16:00 12/22/17 16:00 12/22/17 16:00 12/22/17 17:10 Intake & Output 12/21/17 12/22/17 12/23/17 06:59 06:59 06:59 Intake Total 2320 2680 1490 Output Total 1650 2400 900 Balance 670 280 590 General appearance: PRESENT: no acute distress Eye exam: PRESENT: PERRLA Neck exam: PRESENT: tracheostomy Respiratory exam: PRESENT: clear to auscultation monica Cardiovascular exam: PRESENT: +S1, +S2 GI/Abdominal exam: PRESENT: soft Neurological exam: PRESENT: alert Results Laboratory Results: 12/22/17 18:00 12/22/17 18:00 12/22/17 12/22/17 12/22/17 14:45 18:00 18:00 WBC 13.2 H RBC 3.20 L Hgb 9.6 L Hct 29.8 L MCV 93 MCH 29.8 MCHC 32.0 RDW 16.9 H Plt Count 315 Seg Neutrophils % 61.3 Lymphocytes % 24.4 Monocytes % 9.7 Eosinophils % 3.5 Basophils % 1.1 Absolute Neutrophils 8.1 Absolute Lymphocytes 3.2 Absolute Monocytes 1.3 Absolute Eosinophils 0.5 Absolute Basophils 0.2 Carbonic Acid 1.34 HCO3/H2CO3 Ratio 15:1 ABG pH 7.30 L ABG pCO2 44.6 ABG pO2 68.1 L ABG HCO3 21.4 ABG O2 Saturation 91.7 L ABG Base Excess -5.0 FiO2 40% Sodium 142.2 Potassium 5.2 H Chloride 110 H Carbon Dioxide 24 Anion Gap 8 BUN 27 H Creatinine 0.63 Est GFR ( Amer) > 60 Est GFR (Non-Af Amer) > 60 Glucose 105 Calcium 10.8 H Total Bilirubin 0.2 AST 26 ALT 29 Alkaline Phosphatase 89 Total Protein 7.5 Albumin 3.7 12/17/17 12/18/17 12/18/17 22:05 04:05 10:23 Troponin I 0.016 0.013 0.013 Impressions: Acute Abdomen Series 12/17/17 16:53 IMPRESSION: NO RADIOGRAPHIC EVIDENCE FOR ACUTE ABDOMINAL DISEASE. Assessment & Plan - Diagnosis (1) Acute encephalopathy Is this a current diagnosis for this admission?: Yes (2) Dementia Qualifiers: Dementia type: Alzheimer's disease Alzheimer's disease onset: late-onset Dementia behavioral disturbance: without behavioral disturbance Qualified Code (s): G30.1 - Alzheimer's disease with late onset; F02.80 - Dementia in other diseases classified elsewhere without behavioral disturbance; F02.80 - Dementia in other diseases classified elsewhere without behavioral disturbance; F02.80 - Dementia in other diseases classified elsewhere without behavioral disturbance Is this a current diagnosis for this admission?: Yes (3) Chronic respiratory failure with hypoxia and hypercapnia Is this a current diagnosis for this admission?: Yes (4) Dehydration Is this a current diagnosis for this admission?: Yes (5) Hyperkalemia Is this a current diagnosis for this admission?: Yes
[2017-12-23] MEDS: TOBRAMYCIN SULFATE/DEXAMETH OPH SUSP 2.5 ML OU SCH ×5 (02:07→23:51)
[2017-12-23] MEDS: ALBUTEROL SULFATE 0.083% NEB 2.5 MG/3 ML AMPUL NEB SCH ×4 (02:38→20:23)
[2017-12-23] MEDS: HEPARIN SOD (PORCINE) 5,000 UNIT/ML 1 ML SYRINGE SUBCUT SCH ×3 (06:14→21:43)
--- NOTE | 2017-12-23 08:14 | PDOC DISCHARGE SUMMARY ---
General - Admit/Disc Date/PCP Admission Date/Primary Care Provider: 12/17/17 20:47 BAKARI BECKER MD Discharge Date: 12/23/17 - Discharge Diagnosis (1) Acute encephalopathy Is this a current diagnosis for this admission?: Yes (2) Dementia Is this a current diagnosis for this admission?: Yes (3) Chronic respiratory failure with hypoxia and hypercapnia Is this a current diagnosis for this admission?: Yes (4) Dehydration Is this a current diagnosis for this admission?: Yes - Additional Information Resuscitation Status: Do Not Resuscitate - but do ventilation using trach collar. Home Medications: Albuterol Sulfate [Ventolin 0.083% Neb 2.5 mg/3 mL Ampul] 3 ml NEB RTQID Amlodipine Besylate [Norvasc 10 mg Tablet] 10 mg PO DAILY 12/18/17 Ascorbic Acid [Vitamin C 500 mg Tablet] 500 mg PO DAILY 12/18/17 Aspirin [Adult Low Dose Aspirin EC] 81 mg PO DAILY 12/18/17 Insulin Aspart [Novolog Flexpen] 0 units SQ .PERSLIDINGSCALE 12/18/17 Insulin Detemir [Levemir Flextouch] 10 units SQ DAILY 12/18/17 L. Acidophilus/L.bulgaricus [Lactinex Chewable Tablet] 1 tab PO DAILY 12/18/17 Memantine HCl [Namenda 10 mg Tablet] 10 mg PO DAILY 12/18/17 Multivitamin [Animal Shapes] 1 tab PO DAILY 12/18/17 History of Present Illness History of Present Illness: BRIANA BRADY is a 82 year old female Physical Exam Vital Signs: Temp Pulse Resp BP Pulse Ox 98.2 F 69 22 H 135/57 H 95 12/23/17 04:00 12/23/17 07:00 12/23/17 04:00 12/23/17 04:00 12/23/17 04:00 Intake & Output 12/22/17 12/23/17 12/24/17 06:59 06:59 06:59 Intake Total 2680 2830 Output Total 2400 1400 Balance 280 1430 Results Laboratory Results: 12/22/17 18:00 12/22/17 18:00 12/22/17 12/22/17 12/22/17 14:45 18:00 18:00 WBC 13.2 H RBC 3.20 L Hgb 9.6 L Hct 29.8 L MCV 93 MCH 29.8 MCHC 32.0 RDW 16.9 H Plt Count 315 Seg Neutrophils % 61.3 Lymphocytes % 24.4 Monocytes % 9.7 Eosinophils % 3.5 Basophils % 1.1 Absolute Neutrophils 8.1 Absolute Lymphocytes 3.2 Absolute Monocytes 1.3 Absolute Eosinophils 0.5 Absolute Basophils 0.2 Carbonic Acid 1.34 HCO3/H2CO3 Ratio 15:1 ABG pH 7.30 L ABG pCO2 44.6 ABG pO2 68.1 L ABG HCO3 21.4 ABG O2 Saturation 91.7 L ABG Base Excess -5.0 FiO2 40% Sodium 142.2 Potassium 5.2 H Chloride 110 H Carbon Dioxide 24 Anion Gap 8 BUN 27 H Creatinine 0.63 Est GFR ( Amer) > 60 Est GFR (Non-Af Amer) > 60 Glucose 105 Calcium 10.8 H Total Bilirubin 0.2 AST 26 ALT 29 Alkaline Phosphatase 89 Total Protein 7.5 Albumin 3.7 12/17/17 12/18/17 12/18/17 22:05 04:05 10:23 Troponin I 0.016 0.013 0.013 Impressions: Acute Abdomen Series 12/17/17 16:53 IMPRESSION: NO RADIOGRAPHIC EVIDENCE FOR ACUTE ABDOMINAL DISEASE.
--- NOTE | 2017-12-23 08:38 | RADIOLOGY REPORT (SQ) ---
EXAM DESCRIPTION: CHEST SINGLE VIEW COMPLETED DATE/TIME: 12/23/2017 7:57 am REASON FOR STUDY: resp failure COMPARISON: CHEST FILMS 11/07/2017, 11/12/2017, 11/13/2017, 11/14/2017 EXAM PARAMETERS: NUMBER OF VIEWS: One view. TECHNIQUE: Single frontal radiographic view of the chest acquired. RADIATION DOSE: NA LIMITATIONS: None. FINDINGS: LUNGS AND PLEURA: Moderate right pleural effusion opacifies the right lower hemithorax. T his is increased compared to 11/14/2017. No left pleural effusion. There is right middle and lower lobe consolidation likely atelectasis. Pneumonia could not be exclud ed. No pneumothorax MEDIASTINUM AND HILAR STRUCTURES: No masses. Contour normal. HEART AND VASCULAR STRUCTURES: Mild to moderate cardiomegaly BONES: No acute findings. HARDWARE: Tracheostomy tube tip in the upper trachea, in good positioning OTHER: No other significant finding. IMPRESSION: Increase in right pleural effusion compared to 11/14/2017 Right middle and lower lobe consolidation, atelectasis versus pneumonia TECHNICAL DOCUMENTATION: JOB ID: [id number] [employer]- All Rights Reserved Reading location - IP/workstation name: [email or web address]
[2017-12-23] MEDS: INSULIN DETEMIR 100 UNIT/ML 3 ML PEN SUBCUT SCH (09:19)
[2017-12-23] MEDS: INSULIN LISPRO 100 UNIT/ML 3 ML VIAL SUBCUT PRN (09:19)
[2017-12-23] MEDS: MEMANTINE HCL 10 MG TABLET PO SCH (09:20)
[2017-12-23] MEDS: ASPIRIN 81 MG TABLET, ENT COATED PO SCH (09:20)
[2017-12-23] MEDS: MULTIVITAMIN TABLET PO SCH (09:20)
[2017-12-23] MEDS: ASCORBIC ACID 500 MG TABLET PO SCH (09:20)
[2017-12-23] MEDS: AMLODIPINE BESYLATE 10 MG TABLET PO SCH (09:20)
[2017-12-23] MEDS: LACTOBACILLUS ACIDOPHILUS 250 MG TAB PO SCH (09:20)
--- NOTE | 2017-12-23 13:28 | PDOC CONSULTATION ---
Consultation Consult Date: 12/21/17 Attending physician:: BAKARI BECKER Consult reason:: Cough History of Present Illness Admission Date/PCP: 12/17/17 20:47 BAKARI BECKER MD History of Present Illness: BRIANA BRADY is a 82 year old female Well-known to [facility] has spent some time recently in long- term acute center and within 24 hours being sent home subsequently presented to [facility] complaining of cough fever and shortness of breath patient has chronically had a tracheostomy as well as somewhat obtunded state of mind so that makes current history other than what family can provide limited Past Medical History Cardiac Medical History: Reports: Congestive Heart Failure, Hyperlipidema, Hypertension, Peripheral Vascular Disease, Pulmonary Embolism Pulmonary Medical History: Reports: Chronic Obstructive Pulmonary Disease (COPD) , Pneumonia - aspiration Endocrine Medical History: Reports: Diabetes Mellitus Type 2 Psychiatric Medical History: Reports: Dementia Denies: Depression Past Surgical History Past Surgical History: Reports: Orthopedic Surgery - Shoulder. 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 Social History Lives with: Family Smoking Status: Never Smoker Cigarettes Packs Per Day: 0 Frequency of Alcohol Use: None Hx Recreational Drug Use: No Drugs: None Hx Prescription Drug Abuse: No - Advance Directive Resuscitation Status: Do Not Resuscitate - but do ventilation using trach collar. Family History Parental Family History Reviewed: Yes Children Family History Reviewed: Yes Sibling(s) Family History Reviewed.: Yes Medication/Allergy Home Medications: Albuterol Sulfate [Ventolin 0.083% Neb 2.5 mg/3 mL Ampul] 3 ml NEB RTQID Amlodipine Besylate [Norvasc 10 mg Tablet] 10 mg PO DAILY 12/18/17 Ascorbic Acid [Vitamin C 500 mg Tablet] 500 mg PO DAILY 12/18/17 Aspirin [Adult Low Dose Aspirin EC] 81 mg PO DAILY 12/18/17 Insulin Aspart [Novolog Flexpen] 0 units SQ .PERSLIDINGSCALE 12/18/17 Insulin Detemir [Levemir Flextouch] 10 units SQ DAILY 12/18/17 L. Acidophilus/L.bulgaricus [Lactinex Chewable Tablet] 1 tab PO DAILY 12/18/17 Memantine HCl [Namenda 10 mg Tablet] 10 mg PO DAILY 12/18/17 Multivitamin [Animal Shapes] 1 tab PO DAILY 12/18/17 Allergies/Adverse Reactions: alprazolam [From Xanax] Allergy (Verified 08/12/17 10:54) iodine [Iodine] Allergy (Verified 08/12/17 10:54) quetiapine fumarate [From Seroquel] Allergy (Verified 08/12/17 10:54) Review of Systems ROS unobtainable: Due to mental status Physical Exam Vital Signs: Temp Pulse Resp BP Pulse Ox 98.2 F 102 H 18 168/83 H 94 12/22/17 05:04 12/22/17 05:04 12/22/17 05:04 12/22/17 05:04 12/22/17 05:04 Intake & Output 12/21/17 12/22/17 12/23/17 06:59 06:59 06:59 Intake Total 2320 2680 Output Total 1650 2400 Balance 670 280 General appearance: PRESENT: no acute distress, disheveled, thin. ABSENT: cooperative Head exam: PRESENT: atraumatic, normocephalic Eye exam: PRESENT: conjunctiva pale, EOMI. ABSENT: nystagmus, periorbital swelling, scleral icterus Mouth exam: PRESENT: dry mucosa, neck supple Neck exam: ABSENT: thyromegaly, tracheal deviation, tracheostomy Respiratory exam: PRESENT: decreased breath sounds, prolonged expiratory phas, rhonchi, symmetrical, unlabored Cardiovascular exam: PRESENT: RRR, +S1, +S2, tachycardia Pulses: PRESENT: normal radial pulses Gentrourinary exam: PRESENT: indwelling catheter Extremities exam: ABSENT: clubbing, joint swelling Musculoskeletal exam: ABSENT: deformity, dislocation Neurological exam: PRESENT: awake, oriented to person. ABSENT: oriented to place, oriented to time Skin exam: PRESENT: dry, warm Results Laboratory Results: 12/20/17 04:35 12/20/17 04:35 12/17/17 12/18/17 12/18/17 22:05 04:05 10:23 Troponin I 0.016 0.013 0.013 Impressions: Acute Abdomen Series 12/17/17 16:53 IMPRESSION: NO RADIOGRAPHIC EVIDENCE FOR ACUTE ABDOMINAL DISEASE. Assessment & Plan - Diagnosis (1) Chronic respiratory failure with hypoxia and hypercapnia Is this a current diagnosis for this admission?: Yes Plan: Continue trach collar check ABG just as necessary (2) Dementia Qualifiers: Dementia type: Alzheimer's disease Alzheimer's disease onset: late-onset Dementia behavioral disturbance: without behavioral disturbance Qualified Code (s): G30.1 - Alzheimer's disease with late onset; F02.80 - Dementia in other diseases classified elsewhere without behavioral disturbance; F02.80 - Dementia in other diseases classified elsewhere without behavioral disturbance; F02.80 - Dementia in other diseases classified elsewhere without behavioral disturbance Is this a current diagnosis for this admission?: Yes Plan: Unchanged (3) Hyperkalemia, diminished renal excretion Is this a current diagnosis for this admission?: Yes
--- NOTE | 2017-12-23 13:31 | PDOC PROGRESS REPORT ---
Subjective Progress Note for:: 12/22/17 Subjective:: Awake but not responsive Reason For Visit: ALTERED MENTAL STATUS Physical Exam Vital Signs: Temp Pulse Resp BP Pulse Ox 98.6 F 103 H 16 154/90 H 98 12/22/17 08:00 12/22/17 08:00 12/22/17 08:00 12/22/17 08:00 12/22/17 08:00 Intake & Output 12/21/17 12/22/17 12/23/17 06:59 06:59 06:59 Intake Total 2320 2680 Output Total 1650 2400 Balance 670 280 General appearance: PRESENT: no acute distress, disheveled, thin. ABSENT: cooperative Head exam: PRESENT: atraumatic, normocephalic Eye exam: PRESENT: conjunctiva pale, EOMI. ABSENT: nystagmus, periorbital swelling, scleral icterus Mouth exam: PRESENT: dry mucosa, neck supple, tongue midline Neck exam: PRESENT: tracheostomy. ABSENT: carotid bruit, JVD, lymphadenopathy, thyromegaly, tracheal deviation Respiratory exam: PRESENT: decreased breath sounds - Especially right hemithorax at the base, prolonged expiratory phas, rales, rhonchi, unlabored. ABSENT: retraction, stridor Cardiovascular exam: PRESENT: RRR, +S1, +S2 Pulses: PRESENT: normal radial pulses GI/Abdominal exam: PRESENT: diminished bowel sounds, soft Extremities exam: ABSENT: clubbing, joint swelling Musculoskeletal exam: ABSENT: ambulatory, deformity, dislocation Neurological exam: PRESENT: awake. ABSENT: oriented to place, oriented to time , oriented to situation Skin exam: PRESENT: dry, warm Results Laboratory Results: 12/20/17 04:35 12/20/17 04:35 12/17/17 12/18/17 12/18/17 22:05 04:05 10:23 Troponin I 0.016 0.013 0.013 Impressions: Acute Abdomen Series 12/17/17 16:53 IMPRESSION: NO RADIOGRAPHIC EVIDENCE FOR ACUTE ABDOMINAL DISEASE. Assessment & Plan - Diagnosis (1) Chronic respiratory failure with hypoxia and hypercapnia Is this a current diagnosis for this admission?: Yes Plan: Repeat chest x-ray,Continue trach collar check ABG just as necessary (2) Dementia Qualifiers: Dementia type: Alzheimer's disease Alzheimer's disease onset: late-onset Dementia behavioral disturbance: without behavioral disturbance Qualified Code (s): G30.1 - Alzheimer's disease with late onset; F02.80 - Dementia in other diseases classified elsewhere without behavioral disturbance; F02.80 - Dementia in other diseases classified elsewhere without behavioral disturbance; F02.80 - Dementia in other diseases classified elsewhere without behavioral disturbance Is this a current diagnosis for this admission?: Yes Plan: Unchanged (3) Hyperkalemia, diminished renal excretion Is this a current diagnosis for this admission?: Yes
--- NOTE | 2017-12-23 13:35 | PDOC PROGRESS REPORT ---
Subjective Progress Note for:: 12/23/17 Subjective:: Awake but not responsive Reason For Visit: ALTERED MENTAL STATUS Physical Exam Vital Signs: Temp Pulse Resp BP Pulse Ox 95.3 F L 60 20 130/50 H 96 12/23/17 12:36 12/23/17 12:00 12/23/17 12:00 12/23/17 12:00 12/23/17 12:00 Intake & Output 12/22/17 12/23/17 12/24/17 06:59 06:59 06:59 Intake Total 2680 2830 Output Total 2400 1400 Balance 280 1430 General appearance: PRESENT: no acute distress, disheveled, thin. ABSENT: cooperative Head exam: PRESENT: atraumatic, normocephalic Eye exam: PRESENT: conjunctiva pale. ABSENT: nystagmus, periorbital swelling, scleral icterus Mouth exam: PRESENT: dry mucosa, neck supple, tongue midline Neck exam: PRESENT: tracheostomy. ABSENT: carotid bruit, JVD, lymphadenopathy, thyromegaly, tracheal deviation Respiratory exam: PRESENT: decreased breath sounds - Especially right base, prolonged expiratory phas, rhonchi, unlabored. ABSENT: retraction, stridor Cardiovascular exam: PRESENT: RRR, +S1, +S2 Pulses: PRESENT: normal radial pulses GI/Abdominal exam: PRESENT: diminished bowel sounds, soft Extremities exam: ABSENT: clubbing, full ROM, joint swelling Musculoskeletal exam: ABSENT: ambulatory, deformity, dislocation Neurological exam: PRESENT: awake Skin exam: PRESENT: dry, warm Results Laboratory Results: 12/22/17 18:00 12/22/17 18:00 12/22/17 12/22/17 12/22/17 14:45 18:00 18:00 WBC 13.2 H RBC 3.20 L Hgb 9.6 L Hct 29.8 L MCV 93 MCH 29.8 MCHC 32.0 RDW 16.9 H Plt Count 315 Seg Neutrophils % 61.3 Lymphocytes % 24.4 Monocytes % 9.7 Eosinophils % 3.5 Basophils % 1.1 Absolute Neutrophils 8.1 Absolute Lymphocytes 3.2 Absolute Monocytes 1.3 Absolute Eosinophils 0.5 Absolute Basophils 0.2 Carbonic Acid 1.34 HCO3/H2CO3 Ratio 15:1 ABG pH 7.30 L ABG pCO2 44.6 ABG pO2 68.1 L ABG HCO3 21.4 ABG O2 Saturation 91.7 L ABG Base Excess -5.0 FiO2 40% Sodium 142.2 Potassium 5.2 H Chloride 110 H Carbon Dioxide 24 Anion Gap 8 BUN 27 H Creatinine 0.63 Est GFR ( Amer) > 60 Est GFR (Non-Af Amer) > 60 Glucose 105 Calcium 10.8 H Total Bilirubin 0.2 AST 26 ALT 29 Alkaline Phosphatase 89 Total Protein 7.5 Albumin 3.7 12/17/17 12/18/17 12/18/17 22:05 04:05 10:23 Troponin I 0.016 0.013 0.013 Impressions: Acute Abdomen Series 12/17/17 16:53 IMPRESSION: NO RADIOGRAPHIC EVIDENCE FOR ACUTE ABDOMINAL DISEASE. Chest X-Ray 12/23/17 06:00 IMPRESSION: Increase in right pleural effusion compared to 11/14/2017 Right middle and lower lobe consolidation, atelectasis versus pneumonia Assessment & Plan - Diagnosis (1) Chronic respiratory failure with hypoxia and hypercapnia Is this a current diagnosis for this admission?: Yes Plan: chest x-ray demonstrates right pleural effusion,Continue trach collar check ABG just as necessary (2) Dementia Qualifiers: Dementia type: Alzheimer's disease Alzheimer's disease onset: late-onset Dementia behavioral disturbance: without behavioral disturbance Qualified Code (s): G30.1 - Alzheimer's disease with late onset; F02.80 - Dementia in other diseases classified elsewhere without behavioral disturbance; F02.80 - Dementia in other diseases classified elsewhere without behavioral disturbance; F02.80 - Dementia in other diseases classified elsewhere without behavioral disturbance Is this a current diagnosis for this admission?: Yes Plan: Unchanged (3) Hyperkalemia, diminished renal excretion Is this a current diagnosis for this admission?: Yes
[2017-12-23 15:40] LABS: PROTHROMBIN TIME 13.9 SEC (11.4-15.4)
[2017-12-23 15:44] LABS: TOTAL PROTEIN 7.9 g/dL (6.3-8.2)
--- NOTE | 2017-12-23 16:04 | PDOC TRANSFER SUMMARY ---
General - Admit/Disc Date/PCP Admission Date/Primary Care Provider: 12/17/17 20:47 BAKARI BECKER MD Discharge Date: 12/23/17 - Discharge Diagnosis (1) Acute encephalopathy Is this a current diagnosis for this admission?: Yes (2) Dementia Is this a current diagnosis for this admission?: Yes (3) Chronic respiratory failure with hypoxia and hypercapnia Is this a current diagnosis for this admission?: Yes (4) Dehydration Is this a current diagnosis for this admission?: Yes - Additional Information Resuscitation Status: Do Not Resuscitate - but do ventilation using trach collar. Home Medications: Albuterol Sulfate [Ventolin 0.083% Neb 2.5 mg/3 mL Ampul] 3 ml NEB RTQID Amlodipine Besylate [Norvasc 10 mg Tablet] 10 mg PO DAILY 12/18/17 Ascorbic Acid [Vitamin C 500 mg Tablet] 500 mg PO DAILY 12/18/17 Aspirin [Adult Low Dose Aspirin EC] 81 mg PO DAILY 12/18/17 Insulin Aspart [Novolog Flexpen] 0 units SQ .PERSLIDINGSCALE 12/18/17 Insulin Detemir [Levemir Flextouch] 10 units SQ DAILY 12/18/17 L. Acidophilus/L.bulgaricus [Lactinex Chewable Tablet] 1 tab PO DAILY 12/18/17 Memantine HCl [Namenda 10 mg Tablet] 10 mg PO DAILY 12/18/17 Multivitamin [Animal Shapes] 1 tab PO DAILY 12/18/17 History of Present Illness Admission Date/PCP: 12/17/17 20:47 BAKARI BECKER MD History of Present Illness: Patient 82-year-old female with dementia, chronic debilitation status post amputation of the right leg, below the knee, tube feeder, she was recently transferred to [facility] in [place], she was discharged on IV antibiotic for UTI, she was brought back to the emergency room by her family because she was altered mental status she was found to have hypernatremia, acute kidney injury and hyperkalemia Hospital Course Hospital Course: The acute kidney injury was felt to be due to dehydration, she was treated successfully, the potassium was corrected. Patient was made a DNR on this admission, she is chronically debilitated with dementia with minimal verbal conversation, she has chronic respiratory failure, arrangement was been ma to get her noninvasive positive pressure ventilation, family is requesting a transfer to [facility]. Physical Exam Vital Signs: Temp Pulse Resp BP Pulse Ox 95.3 F L 74 20 130/50 H 94 12/23/17 12:36 12/23/17 14:15 12/23/17 14:15 12/23/17 12:00 12/23/17 12:00 Intake & Output 12/22/17 12/23/17 12/24/17 06:59 06:59 06:59 Intake Total 2680 2830 Output Total 2400 1400 Balance 280 1430 General appearance: PRESENT: no acute distress Eye exam: PRESENT: PERRLA Respiratory exam: PRESENT: decreased breath sounds Cardiovascular exam: PRESENT: +S1, +S2 GI/Abdominal exam: PRESENT: soft Neurological exam: PRESENT: alert Results Laboratory Results: 12/22/17 18:00 12/22/17 18:00 12/22/17 12/22/17 12/23/17 18:00 18:00 14:56 WBC 13.2 H RBC 3.20 L Hgb 9.6 L Hct 29.8 L MCV 93 MCH 29.8 MCHC 32.0 RDW 16.9 H Plt Count 315 Seg Neutrophils % 61.3 Lymphocytes % 24.4 Monocytes % 9.7 Eosinophils % 3.5 Basophils % 1.1 Absolute Neutrophils 8.1 Absolute Lymphocytes 3.2 Absolute Monocytes 1.3 Absolute Eosinophils 0.5 Absolute Basophils 0.2 Sodium 142.2 Potassium 5.2 H Chloride 110 H Carbon Dioxide 24 Anion Gap 8 BUN 27 H Creatinine 0.63 Est GFR ( Amer) > 60 Est GFR (Non-Af Amer) > 60 Glucose 105 Calcium 10.8 H Total Bilirubin 0.2 AST 26 ALT 29 Alkaline Phosphatase 89 Total Protein 7.5 7.9 Albumin 3.7 12/17/17 12/18/17 12/18/17 22:05 04:05 10:23 Troponin I 0.016 0.013 0.013 Impressions: Acute Abdomen Series 12/17/17 16:53 IMPRESSION: NO RADIOGRAPHIC EVIDENCE FOR ACUTE ABDOMINAL DISEASE. Chest X-Ray 12/23/17 06:00 IMPRESSION: Increase in right pleural effusion compared to 11/14/2017 Right middle and lower lobe consolidation, atelectasis versus pneumonia Qualifiers - * PATEINT BEING DISCHARGED WITH ANY OF THE FOLLOWING DIAGNOSIS?: No
--- NOTE | 2017-12-23 17:25 | RADIOLOGY REPORT (SQ) ---
EXAM DESCRIPTION: U/S CHEST COMPLETED DATE/TIME: 12/23/2017 4:59 pm REASON FOR STUDY: Right pleural effusion COMPARISON: CHEST RADIOGRAPH FROM 12/23/2017 TECHNIQUE: Dynamic and static grayscale images acquired of the RIGHT HEMITHORAX. LIMITATIONS: LIMITED DUE TO PATIENT POSITIONING/BODY WALL ACOUSTICS. FINDINGS: Small right pleural effusion visualized. IMPRESSION: LIMITED ULTRASOUND OF THE RIGHT HEMITHORAX DEMONSTRATING AT LEAST A SMALL RIGHT PLEURAL EFFUSION. TECHNICAL DOCUMENTATION: JOB ID: [id number] [employer]- All Rights Reserved Reading location - IP/workstation name: [email or web address]
[2017-12-24] MEDS: ALBUTEROL SULFATE 0.083% NEB 2.5 MG/3 ML AMPUL NEB SCH ×3 (01:22→14:32)
[2017-12-24] MEDS: ONDANSETRON HCL INJ/PF 4 MG/2 ML SDV IV PRN (02:33)
[2017-12-24 04:04] LABS: ARTERIAL BLOOD BASE EXCESS -5.6 mmol/L; ARTERIAL BLOOD H2CO3 2.06 mmol/L (1.05-1.35); ARTERIAL BLOOD HCO3 23.7 mmol/L (20-26); ARTERIAL BLOOD O2 SATURATION 88.4 % (94-98); ARTERIAL BLOOD PCO2 68.4 mmHg (35-45); ARTERIAL BLOOD PO2 70.2 mmHg (80-100); ARTERIAL BLOOD TOTAL CO2 25.8 mmol/L (21-25)
[2017-12-24 04:05] LABS: ARTERIAL BLOOD FIO2 12L
[2017-12-24 04:06] LABS: ARTERIAL BLOOD PH 7.16 (7.35-7.45)
[2017-12-24] MEDS: HEPARIN SOD (PORCINE) 5,000 UNIT/ML 1 ML SYRINGE SUBCUT SCH ×2 (05:03→13:47)
[2017-12-24] MEDS: TOBRAMYCIN SULFATE/DEXAMETH OPH SUSP 2.5 ML OU SCH ×2 (05:17→13:18)
[2017-12-24 12:30] VITALS: BP 136/81
[2017-12-24] MEDS: MULTIVITAMIN TABLET PO SCH (13:18)
[2017-12-24] MEDS: ASPIRIN 81 MG TABLET, ENT COATED PO SCH (13:18)
[2017-12-24] MEDS: MEMANTINE HCL 10 MG TABLET PO SCH (13:18)
[2017-12-24] MEDS: AMLODIPINE BESYLATE 10 MG TABLET PO SCH (13:18)
[2017-12-24] MEDS: ASCORBIC ACID 500 MG TABLET PO SCH (13:18)
[2017-12-24] MEDS: LACTOBACILLUS ACIDOPHILUS 250 MG TAB PO SCH (13:18)
[2017-12-24] MEDS: INSULIN DETEMIR 100 UNIT/ML 3 ML PEN SUBCUT SCH (13:47)
--- NOTE | 2018-01-04 12:27 | OPERATIVE REPORT E ---
Operative Report NAME: BRIANA BRADY : 1935 AGE: 82Y DATE OF SURGERY: 12/22/2017 ROOM: 301 PREOPERATIVE DIAGNOSIS: PULLED OUT TRACHEOSTOMY TUBE. POSTOPERATIVE DIAGNOSIS: PULLED OUT TRACHEOSTOMY TUBE. OPERATION: Replacement of new #6 Shiley tracheal tube. SURGEON: MERLINE JONES M.D. INDICATION: This is an 82-year-old female with a history of dementia of the Alzheimer's type who had a trach put in about 1-1/2 years ago. The patient is admitted at this time for altered mental status. Patient somehow pulled out her trach tube this morning. PROCEDURE: With the help of the respiratory therapist holding the patient's head, I was able to put in a #6 Shiley trach tube with the use of Surgilube. The trach tube went in easily with the obturator. The obturator was then removed and inner cannula placed into the trach tube. The trach was then anchored around the neck with a trach collar. The patient tolerated the procedure well. DICTATING PHYSICIAN: MERLINE JONES M.D. BGEDIT [id number] PHY#: [id number] ID: [id number] JOB#: [id number] ACCT: [id number] cc:MERLINE JONES M.D. >
== END 2017-12-24 16:54 | DRG 640 ==
LOC: ER 15:56 → EH 20:47 → 5 23:35 → 3N 12-24 08:23
PROVIDERS: ADMIT Internal Medicine Geriatric Medicine; ATTEND Internal Medicine
PROC: 5A1955Z Respiratory Ventilation, Greater than 96 Consecutive Hours (ICD-10-PCS; 2017-12-17)
PROC: 0B21XFZ Change Tracheostomy Device in Trachea, External Approach (ICD-10-PCS; principal; 2017-12-22)
DX: E87.5 Hyperkalemia (principal); G93.40 Encephalopathy, unspecified; J96.12 Chronic respiratory failure with hypercapnia; J96.11 Chronic respiratory failure with hypoxia; N39.0 Urinary tract infection, site not specified; E86.0 Dehydration; I50.9 Heart failure, unspecified; J44.9 Chronic obstructive pulmonary disease, unspecified; E11.9 Type 2 diabetes mellitus without complications; Z66 Do not resuscitate; Z96.641 Presence of right artificial hip joint; Z88.8 Allergy status to other drugs, medicaments and biological substances; E87.0 Hyperosmolality and hypernatremia; I11.0 Hypertensive heart disease with heart failure; Z43.0 Encounter for attention to tracheostomy; Z86.711 Personal history of pulmonary embolism; Z89.511 Acquired absence of right leg below knee; Z79.4 Long term (current) use of insulin; Z79.82 Long term (current) use of aspirin; G30.9 Alzheimer's disease, unspecified; F02.80 Dementia in other diseases classified elsewhere, unspecified severity, without behavioral disturbance, psychotic disturbance, mood disturbance, and anxiety; Z93.1 Gastrostomy status; K59.00 Constipation, unspecified; E78.5 Hyperlipidemia, unspecified; Z82.3 Family history of stroke; Z99.81 Dependence on supplemental oxygen; R19.7 Diarrhea, unspecified; Z46.9 Encounter for fitting and adjustment of unspecified device; E11.51 Type 2 diabetes mellitus with diabetic peripheral angiopathy without gangrene; Z78.1 Physical restraint status
CPT/HCPCS: 36415; 36600; 71045; 74022; 76604; 80048; 80053; 81001; 82140; 82607; 82803; 82962; 83605; 83615; 83735; 84100; 84155; 84443; 84484; 85025; 85027; 85610; 85730; 87040; 87086; 87493; 93005; 93010; 94002; 94640; 96360; 96361; 99285; J1644; J1815; J2405; J3490; J7030

== ENCOUNTER 2018-03-07 08:42 | Inpatient (IN) | payer MEDICARE, MEDICAID ==
[2018-03-07] MEDS ORDERED: NORMAL SALINE 1000 ML 1,000 ML IV ONE ×2 (08:50→10:26)
--- NOTE | 2018-03-07 09:00 | ER Document Report ---
ED General - General Chief Complaint: Altered Mental Status Stated Complaint: ALTERED MENTAL STATUS Time Seen by Provider: 03/07/18 08:50 Notes: The patient is a 82 yo female, PMHx Trach and PEG, dementia, presents by EMS after her daughter said she was having increased abdominal pain and abdominal distention over the past 2 days. She has also had cloudy urine out of her [place] and is acting more altered than normal. Patient unable to provide any additional history. TRAVEL OUTSIDE OF THE [place] IN LAST 30 DAYS: No - Related Data Allergies/Adverse Reactions: alprazolam [From Xanax] Allergy (Verified 03/07/18 09:34) iodine [Iodine] Allergy (Verified 03/07/18 09:34) quetiapine fumarate [From Seroquel] Allergy (Verified 03/07/18 09:34) Past Medical History - General Information source: Relative, Emergency Med Personnel - Social History Smoking Status: Unknown if Ever Smoked Family History: Reviewed & Not Pertinent - Past Medical History Cardiac Medical History: Reports: Hx Congestive Heart Failure, Hx Hypercholesterolemia, Hx Hypertension, Hx Peripheral Vascular Disease, Hx Pulmonary Embolism Pulmonary Medical History: Reports: Hx COPD, Hx Pneumonia - aspiration Endocrine Medical History: Reports: Hx Diabetes Mellitus Type 2 Renal/ Medical History: Denies: Hx Peritoneal Dialysis Psychiatric Medical History: Reports: Hx Dementia Denies: Hx Depression Past Surgical History: Reports: Hx Abdominal Surgery - GI tube, Hx Bowel Surgery - G tube, Hx Cardiac Surgery - stents, Hx Orthopedic Surgery - Shoulder. 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 - Immunizations Hx Diphtheria, Pertussis, Tetanus Vaccination: Yes Review of Systems - Review of Systems -: Yes ROS unobtainable due to patient's medical condition Gastrointestinal: Abdomen distended, Abdominal pain Physical Exam - Vital signs Vitals: Resp Pulse Ox 14 95 03/07/18 08:56 03/07/18 08:56 - Notes Notes: PHYSICAL EXAMINATION: GENERAL: Chronically ill-appearing. EYES: Pupils equal round and reactive to light, extraocular movements intact, sclera anicteric, conjunctiva are normal. ENT: nares patent, oropharynx clear without exudates. Moist mucous membranes. NECK: Normal range of motion, supple without lymphadenopathy, trach in place without drainage. LUNGS: Breath sounds clear to auscultation bilaterally and equal. No wheezes rales or rhonchi. HEART: Regular rate and rhythm without murmurs ABDOMEN: Abdominal distention, normal bowel sounds, PEG in place, grimacing when abdomen is palpated EXTREMITIES: Strong distal pulses. NEUROLOGICAL: Moving all 4 extremities. SKIN: Warm, Dry, normal turgor. Course - Re-evaluation Re-evalutation: Patient with evidence of a right lower lobe pneumonia, focal colitis and possible cholecystitis. She also has hypokalemia and hypercalcemia. IV fluids provided to the patient to help with her hypercalcemia and potassium was repleted. Her ultrasound shows multiple gallstones and possible thickening of her gallbladder wall. Broad-spectrum antibiotics started for the patient based on prior culture results. Her primary care physician is Dr. Becker. She requires admission for further evaluation and treatment. 03/07/18 14:[address] Becker who has accepted patient to ICU. 03/07/18 14:57 Even though patient is a poor surgical candidate, spoke to Dr. Pedro about concern on ultrasound for cholelithiasis and possible early cholecystitis with elevated LFTs. - Vital Signs Vital signs: Temp Pulse Resp BP Pulse Ox 14 166/67 H 96 03/07/18 13:24 03/07/18 13:24 03/07/18 13:24 - Laboratory Result Diagrams: 03/07/18 09:08 03/07/18 09:08 Laboratory results interpreted by me: 03/07/18 03/07/18 03/07/18 09:08 09:08 09:08 WBC 15.8 H RBC 3.18 L Hgb 8.2 L Hct 25.5 L MCH 25.7 L RDW 18.0 H Plt Count 494 H Eosinophils % 8.8 H Absolute Neutrophils 9.0 H Absolute Eosinophils 1.4 H VBG pH 7.48 H VBG HCO3 40.2 H Potassium 2.5 L* Chloride 89 L Carbon Dioxide 38 H BUN 81 H Glucose 207 H Calcium 13.7 H* AST 68 H ALT 71 H Alkaline Phosphatase 299 H Urine Protein Urine Glucose (UA) Urine Blood Ur Leukocyte Esterase Urine Ascorbic Acid 03/07/18 09:35 WBC RBC Hgb Hct MCH RDW Plt Count Eosinophils % Absolute Neutrophils Absolute Eosinophils VBG pH VBG HCO3 Potassium Chloride Carbon Dioxide BUN Glucose Calcium AST ALT Alkaline Phosphatase Urine Protein 100 H Urine Glucose (UA) 50 H Urine Blood SMALL H Ur Leukocyte Esterase LARGE H Urine Ascorbic Acid 40 H - Diagnostic Test Radiology reviewed: Image reviewed, Reports reviewed Radiology results interpreted by me: CXR: Minimal bibasilar density. Possible atelectasis or infiltrate versus crowding of vascular markings. Possible small right pleural effusion. CT A/P: Dense consolidation in the right lower lobe worrisome for pneumonia. Small parapneumonic effusion. Thick walled gallbladder with stones. Acute cholecystitis may be present Wall thickening and luminal narrowing distal sigmoid colon, worrisome for focal colitis. No adjacent abscess. - EKG Interpretation by Me EKG shows normal: Sinus rhythm Rate: Normal [place]/QRS: LBBB Additional EKG results interpreted by me: No Scar[place]ossa criteria to suggest acute IL. Critical Care Note - Critical Care Note Total time excluding time spent on procedures (mins): 55 Discharge - Discharge Clinical Impression: Hypercalcemia, Hypokalemia UTI (urinary tract infection) Qualifiers: Urinary tract infection type: site unspecified Hematuria presence: without hematuria Qualified Code(s): N39.0 - Urinary tract infection, site not specified Sepsis Qualifiers: Sepsis type: sepsis due to unspecified organism Qualified Code(s): A41.9 - Sepsis, unspecified organism Pneumonia Qualifiers: Pneumonia type: due to unspecified organism Laterality: right Lung location: lower lobe of lung Qualified Code(s): J18.1 - Lobar pneumonia, unspecified organism Gallstone Qualifiers: Cholecystitis acuity: unspecified acuity Biliary obstruction: without biliary obstruction Condition: Stable Disposition: ADMITTED INPATIENT Admitting Provider: [facility] Unit Admitted: ICU Referrals: BAKARI BECKER MD [Primary Care Provider] - Follow up as needed
--- NOTE | 2018-03-07 09:47 | RADIOLOGY REPORT (SQ) ---
EXAM DESCRIPTION: CHEST SINGLE VIEW COMPLETED DATE/TIME: 03/07/2018 9:37 am REASON FOR STUDY: SOB COMPARISON: None. EXAM PARAMETERS: NUMBER OF VIEWS: One view. TECHNIQUE: Single frontal radiographic view of the chest acquired. RADIATION DOSE: NA LIMITATIONS: None. FINDINGS: LUNGS AND PLEURA: Minimal bibasilar markings that may represent vascular crowding versus m inimal atelectasis or infiltrate. Slight obscuring the right costophrenic angle but may represent sm all effusion. Mid upper lung zones clear. MEDIASTINUM AND HILAR STRUCTURES: No masses. Contour normal. HEART AND VASCULAR STRUCTURES: Heart normal in size. Normal vasculature. BONES: No acute findings. HARDWARE: Tracheostomy tube in good position. OTHER: No other significant finding. IMPRESSION: Minimal bibasilar density. Possible atelectasis or infiltrate versus crowding of vascu lar markings. Possible small right pleural effusion. TECHNICAL DOCUMENTATION: JOB ID: [id number] [employer] All Rights Reserved Reading location - IP/workstation name: [email or web address]
[2018-03-07 09:50] LABS: ABSOLUTE BASOPHILS # (AUTO) 0.2 10^3/uL (0.0-0.2); ABSOLUTE EOSINOPHILS # (AUTO) 1.4 10^3/uL (0.0-0.6); ABSOLUTE LYMPHOCYTES (AUTO) 3.8 10^3/uL (0.5-4.7); ABSOLUTE MONOCYTES (AUTO) 1.4 10^3/uL (0.1-1.4); BASOPHILS % (AUTO) 1.3 % (0-2); EOSINOPHILS % (AUTO) 8.8 % (0-6); HEMATOCRIT 25.5 % (36.0-47.0); HEMOGLOBIN 8.2 g/dL (12.0-15.5); LYMPHOCYTES % (AUTO) 24.1 % (13-45); MEAN CORPUSCULAR HEMOGLOBIN 25.7 pg (27.0-33.4); MEAN CORPUSCULAR VOLUME 80 fl (80-97); MONOCYTES % (AUTO) 8.6 % (3-13); PLATELET COUNT 494 10^3/uL (150-450); RED BLOOD COUNT 3.18 10^6/uL (3.72-5.28); SEGMENTED NEUTROPHILS % (AUTO) 57.2 % (42-78); TOTAL CELLS COUNTED % (AUTO) 100 %; WHITE BLOOD COUNT 15.8 10^3/uL (4.0-10.5)
[2018-03-07 09:53] LABS: VENOUS BLOOD BASE EXCESS 14.8 mmol/L; VENOUS BLOOD HCO3 40.2 mmol/L (20-32); VENOUS BLOOD PCO2 55.8 mmHg (35-63); VENOUS BLOOD PH 7.48 (7.30-7.42)
[2018-03-07 09:54] LABS: PROTHROMBIN TIME 14.8 SEC (11.4-15.4)
[2018-03-07 10:07] LABS: ALANINE AMINOTRANSFERASE 71 U/L (9-52); ALBUMIN 3.5 g/dL (3.5-5.0); ALKALINE PHOSPHATASE 299 U/L (38-126); ANION GAP 10 (5-19); ASPARTATE AMINO TRANSFERASE 68 U/L (14-36); BILIRUBIN,DIRECT 0.3 mg/dL (0.0-0.4); BILIRUBIN,TOTAL 0.3 mg/dL (0.2-1.3); BLOOD UREA NITROGEN 81 mg/dL (7-20); CARBON DIOXIDE 38 mmol/L (22-30); CHLORIDE 89 mmol/L (98-107); GLUCOSE 207 mg/dL (75-110); SODIUM 137.3 mmol/L (137-145)
[2018-03-07 10:15] LABS: APPEARANCE,URINE CLOUDY; BILIRUBIN,URINE NEGATIVE (NEGATIVE); COLOR,URINE YELLOW; GLUCOSE, URINE 50 mg/dL (NEGATIVE); KETONES,URINE NEGATIVE (NEGATIVE); LEUKOCYTE ESTERASE,URINE LARGE (NEGATIVE); NITRITE,URINE NEGATIVE (NEGATIVE); PROTEIN,URINE 100 mg/dL (NEGATIVE); UROBILINOGEN,URINE NEGATIVE mg/dL (<2.0)
[2018-03-07 10:21] LABS: CALCIUM 13.7 mg/dL (8.4-10.2); POTASSIUM 2.5 mmol/L (3.6-5.0)
[2018-03-07] MEDS ORDERED: VANCOMYCIN HCL INJ 1000 MG VIAL IV ONE (10:25)
[2018-03-07] MEDS ORDERED: PIPERACILLIN/TAZOBACTAM 3.375 GM VIAL IV ONE (10:25)
[2018-03-07] MEDS ORDERED: POTASSIUM CHLORIDE 20 MEQ/15 ML UDCUP PO ONE (10:26)
--- NOTE | 2018-03-07 12:59 | RADIOLOGY REPORT (SQ) ---
EXAM DESCRIPTION: CT ABD/PELVIS ORAL ONLY COMPLETED DATE/TIME: 03/07/2018 12:13 pm REASON FOR STUDY: abdominal distention COMPARISON: CT abdomen pelvis 10/27/2017 TECHNIQUE: CT scan of the abdomen and pelvis performed without intravenous contrast. Patient drank oral contrast. Images reviewed with lung, soft tissue, and bone windows. Reconstructed coronal and sagittal MPR imag es reviewed. All images stored on PACS. All CT scanners at this facility use dose modulation, iterative reconstruction, and/or weight based d osing when appropriate to reduce radiation dose to as low as reasonably achievable (ALARA). [facility]: Dose Right [facility]: CareDose [facility]: Dose Right [facility]: Teradose 4D [facility]: [employer] RADIATION DOSE: CT Rad equipment meets quality standard of care and radiation dose reduction techniq ues were employed. CTDIvol: 16.9 mGy. DLP: 1041 mGy-cm.mGy. LIMITATIONS: None. FINDINGS: LOWER CHEST: There is dense consolidation in the right lower lobe worrisome for pneumonia. Adjacent loculated appearing small right pleural effusion axial images 1-5. Minimal left basilar a irspace disease atelectasis versus pneumonia. Stable cardiomegaly, aortic valve and LAD coronary art imelda calcification NON-CONTRASTED LIVER, SPLEEN, ADRENALS: Evaluation limited by lack of IV contrast. No identified sign ificant masses. PANCREAS: No masses. No peripancreatic inflammatory changes. GALLBLADDER: Diffusely abnormal, distended with wall thickening. Few stones are present. Report gypsy led to Dr. Sandra in the emergency room. RIGHT KIDNEY AND URETER: No gross cysts or masses. Cortical thinning right lower pole kidney. Tiny less than 5 mm right lower pole intrarenal nonobstructive stone. No hydronephrosis or hydroureter. LEFT KIDNEY AND URETER: No suspicious masses. Assessment limited by lack of IV contrast. Tiny left lower pole intrarenal nonobstructive stone. No hydronephrosis or hydroureter. AORTA AND RETROPERITONEUM: No aneurysm. No retroperitoneal masses or adenopathy. Bilateral common il iac artery stent BOWEL AND PERITONEAL CAVITY: There is oral contrast in the stomach small bowel and colon in a nonobst ructive pattern. There is distal sigmoid colon wall thickening and luminal narrowing on axial images 62 through 70 and sagittal reconstruction image 69 worrisome for colitis. Tumor could not entirely be excluded. No free intraperitoneal air or fluid. APPENDIX: Normal. PELVIS, BLADDER, AND ABDOMINAL WALL:Normal size postmenopausal uterus. Streak artifact through the p lucina from left hip replacement. Palacios catheter in the bladder. No gross masses or adenopathy. BONES: No significant findings. OTHER: No other significant finding. IMPRESSION: Dense consolidation in the right lower lobe worrisome for pneumonia. Small parapneumoni c effusion. Thick walled gallbladder with stones. Acute cholecystitis may be present Wall thickening and luminal narrowing distal sigmoid colon, worrisome for focal colitis. No adjacent abscess. COMMENT: Quality ID # [id number]: Final reports with documentation of one or more dose reduction techniques (e.g., Automated exposure control, adjustment of the mA and/or kV according to patient size, use of iterative reconstruction technique) TECHNICAL DOCUMENTATION: JOB ID: [id number] [employer]- All Rights Reserved Reading location - IP/workstation name: [email or web address]
[2018-03-07] MEDS: POTASSI CL 20 MEQ/50 ML RIDER 20 MEQ/50 ML RTUPB IV SCH ×4 (13:15→22:07)
--- NOTE | 2018-03-07 13:41 | EKG REPORT ---
SEVERITY:- ABNORMAL ECG - SINUS RHYTHM FIRST DEGREE AV BLOCK LEFT BUNDLE BRANCH BLOCK : Confirmed by: Ethan Azar MD 07-Mar-2018 13:40:04
--- NOTE | 2018-03-07 14:35 | RADIOLOGY REPORT (SQ) ---
EXAM DESCRIPTION: U/S ABDOMEN LIMITED W/O DOP COMPLETED DATE/TIME: 03/07/2018 2:11 pm REASON FOR STUDY: abnormal GB on CT COMPARISON: Abdominal CT scan dated 05/07/2018 TECHNIQUE: Dynamic and static grayscale images acquired of the abdomen and recorded on PACS. Additio nal selected color Doppler and spectral images recorded. LIMITATIONS: Study is limited due to the patient's condition and overlying bowel gas. FINDINGS: PANCREAS: The pancreas was not well visualized due to overlying bowel gas. The visualized portions of the pancreatic body and head demonstrated no pancreatic masses. LIVER: No masses. Echotexture normal. LIVER VASCULATURE: Normal directional flow of the main portal vein. GALLBLADDER: Multiple gallstones are identified. The gallbladder wall is at the upper limits of norm al in thickness. ULTRASOUND-DETECTED LYON'S SIGN: Negative. INTRAHEPATIC DUCTS AND COMMON DUCT: CBD and intrahepatic ducts normal caliber. No filling defects. INFERIOR VENA CAVA: Normal flow. AORTA: Abdominal aorta was incompletely visualized due to overlying bowel gas. RIGHT KIDNEY: 7.7 cm in length. Normal echogenicity. No solid or suspicious masses. No hydrone phrosis. The previously described nonobstructing right renal calculus is not definitely identified. PERITONEAL AND RIGHT PLEURAL SPACE: No ascites or effusions. OTHER: No other significant findings. IMPRESSION: Findings consistent with multiple gallstones. There is borderline thickening of the gal lbladder wall. Other findings as noted above TECHNICAL DOCUMENTATION: JOB ID: [id number] [employer]- All Rights Reserved Reading location - IP/workstation name: [email or web address]
--- NOTE | 2018-03-07 17:38 | PDOC CONSULTATION ---
Consultation Consult Date: 03/07/18 Attending physician:: MARY ALICE HANKINS Consult reason:: abnormal CT scan. abdominal pain and distension. history of previous PEG. abnormal CT scan showing thickening gallbladder. abnormal LFT History of Present Illness Admission Date/PCP: 03/07/18 15:18 BAKARI BECKER MD History of Present Illness: BRIANA BRADY is a 82 year old female patient of Dr Higgins patient was admitted early this am, Dr Pedro has been consulted due to the fact that there was abnormal LFT's in the setting of a thickened gallbladder wall however she has had a previous PEG placed as well and has a chronic trach patiet had another finding on her CT scan showing a possible colitis in the colon ? possible narrowing, ? possible ischemic colitis history if provided by family, patient has dementia she also has other electrolyte abnormalities currently getting corrected GI consultation is requested she will ultimately need a flex sig vs colonoscopy since the are of concern in is the distal large bowel however some of her electrolyte abnormalities will need to be corrected first Past Medical History Cardiac Medical History: Reports: Congestive Heart Failure, Hyperlipidema, Hypertension, Peripheral Vascular Disease, Pulmonary Embolism Pulmonary Medical History: Reports: Chronic Obstructive Pulmonary Disease (COPD) , Pneumonia - aspiration Endocrine Medical History: Reports: Diabetes Mellitus Type 1, Diabetes Mellitus Type 2 Psychiatric Medical History: Reports: Dementia Denies: Depression Past Surgical History Past Surgical History: Reports: Orthopedic Surgery - Shoulder. 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 Social History Smoking Status: Unknown if Ever Smoked Frequency of Alcohol Use: None Hx Recreational Drug Use: No Drugs: None Hx Prescription Drug Abuse: No Family History Family History: Reviewed & Not Pertinent Parental Family History Reviewed: Yes Children Family History Reviewed: Unknown Sibling(s) Family History Reviewed.: Unknown Medication/Allergy Home Medications: Albuterol Sulfate [Ventolin 0.083% Neb 2.5 mg/3 mL Ampul] 3 ml NEB RTQID Amlodipine Besylate [Norvasc 10 mg Tablet] 10 mg PO DAILY 12/18/17 Ascorbic Acid [Vitamin C 500 mg Tablet] 500 mg PO DAILY 12/18/17 Aspirin [Adult Low Dose Aspirin EC] 81 mg PO DAILY 12/18/17 Insulin Aspart [Novolog Flexpen] 0 units SQ .PERSLIDINGSCALE 12/18/17 Insulin Detemir [Levemir Flextouch] 10 units SQ DAILY 12/18/17 L. Acidophilus/L.bulgaricus [Lactinex Chewable Tablet] 1 tab PO DAILY 12/18/17 Memantine HCl [Namenda 10 mg Tablet] 10 mg PO DAILY 12/18/17 Multivitamin [Animal Shapes] 1 tab PO DAILY 12/18/17 Allergies/Adverse Reactions: alprazolam [From Xanax] Allergy (Verified 03/07/18 09:34) iodine [Iodine] Allergy (Verified 03/07/18 09:34) quetiapine fumarate [From Seroquel] Allergy (Verified 03/07/18 09:34) Review of Systems Constitutional: ABSENT: headache(s), night sweats Ears: ABSENT: hearing changes Cardiovascular: ABSENT: chest pain, orthropnea Respiratory: ABSENT: dyspnea, hemoptysis Gastrointestinal: PRESENT: abdominal pain, bloating. ABSENT: melena, nausea, vomiting Genitourinary: ABSENT: dysuria, hematuria Integumentary: ABSENT: pruritus Neurological: ABSENT: syncope, tingling, tremor(s), vertigo Endocrine: ABSENT: polydipsia, polyphagia, polyuria Hematologic/Lymphatic: ABSENT: easy bruising Physical Exam Vital Signs: Temp Pulse Resp BP Pulse Ox 15 148/72 H 97 03/07/18 16:21 03/07/18 16:21 03/07/18 17:15 General appearance: PRESENT: well-developed, well-nourished Head exam: PRESENT: atraumatic, normocephalic Eye exam: PRESENT: EOMI, PERRLA. ABSENT: scleral icterus Mouth exam: PRESENT: moist, neck supple Throat exam: ABSENT: tonsillar exudate, tonsillogmegaly Neck exam: ABSENT: meningismus, tenderness, thyromegaly Respiratory exam: PRESENT: symmetrical. ABSENT: tachypnea, wheezes Cardiovascular exam: PRESENT: RRR, +S1, +S2 GI/Abdominal exam: PRESENT: diminished bowel sounds, distended. ABSENT: rebound , rigid Extremities exam: ABSENT: joint swelling Neurological exam: PRESENT: CN II-XII grossly intact Skin exam: PRESENT: normal color. ABSENT: mottled, pallor, petechiae, urticaria , vesicles Results Impressions: Chest X-Ray 03/07/18 08:50 IMPRESSION: Minimal bibasilar density. Possible atelectasis or infiltrate versus crowding of vascular markings. Possible small right pleural effusion. Abdomen/Pelvis CT 03/07/18 08:52 IMPRESSION: Dense consolidation in the right lower lobe worrisome for pneumonia. Small parapneumonic effusion. Thick walled gallbladder with stones. Acute cholecystitis may be present Wall thickening and luminal narrowing distal sigmoid colon, worrisome for focal colitis. No adjacent abscess. Abdomen Ultrasound 03/07/18 12:49 IMPRESSION: Findings consistent with multiple gallstones. There is borderline thickening of the gallbladder wall. Other findings as noted above Assessment & Plan - Diagnosis (1) Abnormal CT scan Plan: both in terms of possible thickening of the gallbladder wall to indicate a possible cholecystitis Dr Pedro has been called total bilirubin normal, however will need to follow would need antibiotics to cover for possible gram negative organisms and possible sepsis however has abnormal narrowing in the colon as well ? ischemic colitis once electrolyte abnormalities are corrected and proceed with either flex sig or full colonoscopy check for C.Diff as well further recommendations to follow (2) Abnormal LFTs Plan: abnormal transaminases ultrasound and CT scan done if continues to rise along with bilirubin, may need ERCP, consult will need to be made to Dr Michelle (3) Difficulty feeding self Plan: has Peg tube placed in the past will check for functioning - Time Time Spent: 50 to 70 Minutes
[2018-03-07] MEDS ORDERED: VANCOMYCIN HCL 0 MG in DEXTROSE 5%-WATER 250 ML IV NR (17:45)
[2018-03-07] MEDS ORDERED: PIPERACILLIN SODIUM/TAZOBACTAM 3.375 GM in NORMAL SALINE 100 ML IV SCH (18:00)
[2018-03-07] MEDS: NORMAL SALINE 1000 ML 1,000 ML IV PRN (18:18)
--- NOTE | 2018-03-07 18:34 | PDOC CONSULTATION ---
History of Present Illness Admission Date/PCP: 03/07/18 15:18 BAKARI BECKER MD Patient complains of: Lower abdominal pain History of Present Illness: BRIANA BRADY is a 82 year old female with multiple medical problems including congestive heart failure and recurrent pneumonias, chronic tracheostomy, multiple episodes of C. difficile colitis, noted by family with mental status changes with much less interaction and complaints of lower abdominal pain for the past several days. Patient has also been noted with a recent onset constipation. No emesis. Possible fever. Family notes that most of her complaints point towards the very lower abdomen and she does have a history of multiple urinary tract infections in the past. Patient cannot provide much of a history. She does not interact on exam today. Past Medical History Cardiac Medical History: Reports: Congestive Heart Failure, Hyperlipidema, Hypertension, Peripheral Vascular Disease, Pulmonary Embolism Pulmonary Medical History: Reports: Chronic Obstructive Pulmonary Disease (COPD) , Pneumonia - aspiration Endocrine Medical History: Reports: Diabetes Mellitus Type 1, Diabetes Mellitus Type 2 Psychiatric Medical History: Reports: Dementia Denies: Depression Infectious Medical History: Reports: Clostridium Difficile Past Surgical History Past Surgical History: Reports: Orthopedic Surgery - Shoulder. 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 Social History Smoking Status: Unknown if Ever Smoked Frequency of Alcohol Use: None Hx Recreational Drug Use: No Drugs: None Hx Prescription Drug Abuse: No Family History Family History: Reviewed & Not Pertinent Parental Family History Reviewed: No Children Family History Reviewed: No Sibling(s) Family History Reviewed.: No Medication/Allergy Home Medications: Albuterol Sulfate [Ventolin 0.083% Neb 2.5 mg/3 mL Ampul] 3 ml NEB RTQID Amlodipine Besylate [Norvasc 10 mg Tablet] 10 mg PO DAILY 12/18/17 Ascorbic Acid [Vitamin C 500 mg Tablet] 500 mg PO DAILY 12/18/17 Aspirin [Adult Low Dose Aspirin EC] 81 mg PO DAILY 12/18/17 Insulin Aspart [Novolog Flexpen] 0 units SQ .PERSLIDINGSCALE 12/18/17 Insulin Detemir [Levemir Flextouch] 10 units SQ DAILY 12/18/17 L. Acidophilus/L.bulgaricus [Lactinex Chewable Tablet] 1 tab PO DAILY 12/18/17 Memantine HCl [Namenda 10 mg Tablet] 10 mg PO DAILY 12/18/17 Multivitamin [Animal Shapes] 1 tab PO DAILY 12/18/17 Allergies/Adverse Reactions: alprazolam [From Xanax] Allergy (Verified 03/07/18 09:34) iodine [Iodine] Allergy (Verified 03/07/18 09:34) quetiapine fumarate [From Seroquel] Allergy (Verified 03/07/18 09:34) Physical Exam Vital Signs: Temp Pulse Resp BP Pulse Ox 22 H 163/71 H 98 03/07/18 18:11 03/07/18 18:11 03/07/18 18:11 Intake & Output 03/06/18 03/07/18 03/08/18 06:59 06:59 06:59 Output Total 250 Balance -250 General appearance: PRESENT: other - Does not interact. Does not obey commands. Eye exam: PRESENT: conjunctiva pink Neck exam: PRESENT: tracheostomy Respiratory exam: PRESENT: decreased breath sounds Cardiovascular exam: PRESENT: RRR GI/Abdominal exam: PRESENT: other - Moderately distended, soft, no peritoneal signs, difficult to tell whether she is tender to palpation but does not grimace with upper abdominal tenderness. Possible lower abdominal tenderness but again exam is very difficult. Skin exam: PRESENT: warm Results Impressions: Chest X-Ray 03/07/18 08:50 IMPRESSION: Minimal bibasilar density. Possible atelectasis or infiltrate versus crowding of vascular markings. Possible small right pleural effusion. Abdomen/Pelvis CT 03/07/18 08:52 IMPRESSION: Dense consolidation in the right lower lobe worrisome for pneumonia. Small parapneumonic effusion. Thick walled gallbladder with stones. Acute cholecystitis may be present Wall thickening and luminal narrowing distal sigmoid colon, worrisome for focal colitis. No adjacent abscess. Abdomen Ultrasound 03/07/18 12:49 IMPRESSION: Findings consistent with multiple gallstones. There is borderline thickening of the gallbladder wall. Other findings as noted above Assessment & Plan - Diagnosis (1) Cholelithiasis Is this a current diagnosis for this admission?: Yes Plan: With possible cholecystitis. But according to the patient's family she seems to hurt in the lower abdomen not the upper abdomen. I do not appreciate upper abdominal tenderness on limited exam due to her mental status. Patient is a poor operative candidate. Will obtain a HIDA scan, if positive will ask radiology to perform a cholecystostomy tube placement. Will check amylase and lipase as well. (2) Abdominal pain Qualifiers: Abdominal location: lower abdomen, unspecified Qualified Code(s): R10.30 - Lower abdominal pain, unspecified Is this a current diagnosis for this admission?: Yes Plan: Possibly constipation related. Possibly related with colon abnormality seen on CT with thickened narrowed distal sigmoid. Pending GI evaluation with possible colonoscopy. In the meantime will start MiraLAX.
[2018-03-07 18:39] LABS: INTERNATIONAL RATION (INR) 1.14; PROTHROMBIN TIME 15.2 SEC (11.4-15.4)
[2018-03-07 18:40] LABS: PARTIAL THROMBOPLASTIN TIME 28.9 SEC (23.5-35.8)
[2018-03-07 18:53] LABS: ARTERIAL BLOOD BASE EXCESS 8.5 mmol/L; ARTERIAL BLOOD H2CO3 1.14 mmol/L (1.05-1.35); ARTERIAL BLOOD HCO3 31.8 mmol/L (20-26); ARTERIAL BLOOD O2 SATURATION 92.5 % (94-98); ARTERIAL BLOOD PH 7.54 (7.35-7.45); ARTERIAL BLOOD PO2 56.2 mmHg (80-100)
[2018-03-07 18:56] LABS: ARTERIAL BLOOD FIO2 35%
[2018-03-07 19:04] LABS: URINE AMPHETAMINES SCREEN NEGATIVE; URINE BARBITURATES SCREEN NEGATIVE; URINE BENZODIAZEPINES SCREEN NEGATIVE; URINE COCAINE SCREEN NEGATIVE; URINE MARIJUANA (THC) SCREEN NEGATIVE; URINE METHADONE SCREEN NEGATIVE; URINE PHENCYCLIDINE SCREEN NEGATIVE
[2018-03-07 19:25] LABS: CREATINE KINASE MB 0.66 ng/mL (<4.55); TROPONIN I 0.053 ng/mL
[2018-03-07 19:28] LABS: FREE T3 3.17 pg/mL (2.77-5.27); FREE T4 (FREE THYROXINE) 1.7 ng/dL (0.78-2.19)
[2018-03-07 19:42] LABS: THYROID STIMULATING HORMONE 4.5 uIU/mL (0.47-4.68)
[2018-03-07] MEDS ORDERED: LACTOBACILLUS ACIDOPHILUS PEG SCH (20:45)
[2018-03-07] MEDS ORDERED: AMLODIPINE BESYLATE 10 MG TABLET PEG ONE (21:30)
[2018-03-07] MEDS ORDERED: ASCORBIC ACID 500 MG TABLET PEG ONE (21:30)
[2018-03-07] MEDS ORDERED: ASPIRIN 81 MG TABLET, ENT COATED PO ONE (21:30)
[2018-03-07] MEDS ORDERED: POTASSI CL 20 MEQ/50 ML RIDER 20 MEQ/50 ML RTUPB IV ONE (21:43)
[2018-03-07] MEDS ORDERED: IPRATROPIUM/ALBUTEROL 0.5-2.5 MG/3 ML AMPUL NEB ONE (21:55)
[2018-03-07] MEDS: PIPERACILLIN SODIUM/TAZOBACTAM 3.375 GM in NORMAL SALINE 100 ML IV SCH (22:04)
[2018-03-07] MEDS: HEPARIN SOD (PORCINE) 5,000 UNIT/ML 1 ML SYRINGE SUBCUT SCH (22:10)
--- NOTE | 2018-03-07 22:13 | RADIOLOGY REPORT (SQ) ---
EXAM DESCRIPTION: CHEST SINGLE VIEW COMPLETED DATE/TIME: 03/07/2018 10:04 pm REASON FOR STUDY: desat COMPARISON: 03/07/2018 EXAM PARAMETERS: NUMBER OF VIEWS: One view. TECHNIQUE: Single frontal radiographic view of the chest acquired. RADIATION DOSE: NA LIMITATIONS: None. FINDINGS: LUNGS AND PLEURA: There is increased opacification in the right hemithorax. Right pleural effusion. Small left pleural effusion. MEDIASTINUM AND HILAR STRUCTURES: No masses. Contour normal. HEART AND VASCULAR STRUCTURES: Cardiomegaly. No dominik pulmonary edema. BONES: No acute findings. HARDWARE: Tracheostomy tube. OTHER: No other significant finding. IMPRESSION: There is increased opacification the right hemithorax suggesting perhaps increasing righ t pleural effusion. Atelectasis in the right lower lobe. TECHNICAL DOCUMENTATION: JOB ID: [id number] [employer]- All Rights Reserved Reading location - IP/workstation name: [email or web address]
[2018-03-07 23:02] LABS: ALANINE AMINOTRANSFERASE 77 U/L (9-52); ALBUMIN 3.2 g/dL (3.5-5.0); ALKALINE PHOSPHATASE 290 U/L (38-126); ANION GAP 10 (5-19); ASPARTATE AMINO TRANSFERASE 75 U/L (14-36); BILIRUBIN,DIRECT 0.3 mg/dL (0.0-0.4); BILIRUBIN,TOTAL 0.3 mg/dL (0.2-1.3); BLOOD UREA NITROGEN 70 mg/dL (7-20); CARBON DIOXIDE 31 mmol/L (22-30); CHLORIDE 95 mmol/L (98-107); GLUCOSE 218 mg/dL (75-110); SODIUM 135.7 mmol/L (137-145); TOTAL PROTEIN 7.2 g/dL (6.3-8.2)
[2018-03-07 23:10] LABS: POTASSIUM 3.7 mmol/L (3.6-5.0)
[2018-03-07 23:13] LABS: CALCIUM 12.6 mg/dL (8.4-10.2)
[2018-03-07] MEDS ORDERED: IPRATROPIUM/ALBUTEROL 0.5-2.5 MG/3 ML AMPUL NEB PRN (23:44)
[2018-03-08 00:16] LABS: CREATINE KINASE MB 0.43 ng/mL (<4.55); TROPONIN I 0.047 ng/mL
[2018-03-08] MEDS: TOBRAMYCIN SULFATE/DEXAMETH OPH SUSP 2.5 ML OU SCH ×4 (01:49→18:19)
[2018-03-08] MEDS: NORMAL SALINE 1000 ML 1,000 ML IV PRN ×3 (01:57→21:56)
[2018-03-08] MEDS: PIPERACILLIN SODIUM/TAZOBACTAM 3.375 GM in NORMAL SALINE 100 ML IV SCH ×4 (02:02→21:50)
[2018-03-08] MEDS ORDERED: DEXTROSE 40% GEL 15 GM TUBE X 2 PO PRN (03:55)
[2018-03-08] MEDS ORDERED: DEXTROSE 50%-WATER SYRINGE 12.5 GM/25 ML DOSE IV PRN (03:55)
[2018-03-08] MEDS ORDERED: GLUCAGON,HUMAN RECOMB 1 MG INJ IM PRN (03:55)
[2018-03-08] MEDS ORDERED: DEXTROSE 50%-WATER SYRINGE 25 GM/50 ML DOSE IV PRN (03:55)
[2018-03-08] MEDS ORDERED: DEXTROSE 40% GEL 15 GM TUBE PO PRN (03:55)
[2018-03-08] MEDS: HEPARIN SOD (PORCINE) 5,000 UNIT/ML 1 ML SYRINGE SUBCUT SCH ×3 (05:10→21:50)
[2018-03-08 06:27] LABS: ARTERIAL BLOOD BASE EXCESS 4.1 mmol/L; ARTERIAL BLOOD H2CO3 1.26 mmol/L (1.05-1.35); ARTERIAL BLOOD HCO3 28.5 mmol/L (20-26); ARTERIAL BLOOD O2 SATURATION 94.9 % (94-98); ARTERIAL BLOOD PCO2 41.9 mmHg (35-45); ARTERIAL BLOOD PH 7.45 (7.35-7.45); ARTERIAL BLOOD PO2 70.7 mmHg (80-100); ARTERIAL BLOOD TOTAL CO2 29.8 mmol/L (21-25)
[2018-03-08 06:30] LABS: ABSOLUTE BASOPHILS # (AUTO) 0.1 10^3/uL (0.0-0.2); ABSOLUTE EOSINOPHILS # (AUTO) 0.8 10^3/uL (0.0-0.6); ABSOLUTE LYMPHOCYTES (AUTO) 2.2 10^3/uL (0.5-4.7); ABSOLUTE MONOCYTES (AUTO) 0.8 10^3/uL (0.1-1.4); BASOPHILS % (AUTO) 0.7 % (0-2); EOSINOPHILS % (AUTO) 4.5 % (0-6); HEMATOCRIT 22.5 % (36.0-47.0); LYMPHOCYTES % (AUTO) 13.1 % (13-45); MEAN CORPUSCULAR HEMOGLOBIN 25.9 pg (27.0-33.4); MEAN CORPUSCULAR HGB CONC 32.2 g/dL (32.0-36.0); MEAN CORPUSCULAR VOLUME 80 fl (80-97); MONOCYTES % (AUTO) 4.5 % (3-13); PLATELET COUNT 425 10^3/uL (150-450); RED CELL DISTRIBUTION WIDTH 17.7 % (11.5-14.0); SEGMENTED NEUTROPHILS % (AUTO) 77.2 % (42-78); TOTAL CELLS COUNTED % (AUTO) 100 %; WHITE BLOOD COUNT 16.8 10^3/uL (4.0-10.5)
[2018-03-08 06:33] LABS: HEMOGLOBIN 7.2 g/dL (12.0-15.5)
[2018-03-08 06:45] LABS: ALANINE AMINOTRANSFERASE 63 U/L (9-52); ALBUMIN 2.9 g/dL (3.5-5.0); ALKALINE PHOSPHATASE 245 U/L (38-126); ANION GAP 10 (5-19); ASPARTATE AMINO TRANSFERASE 59 U/L (14-36); BILIRUBIN,DIRECT 0.2 mg/dL (0.0-0.4); BILIRUBIN,TOTAL 0.4 mg/dL (0.2-1.3); BLOOD UREA NITROGEN 63 mg/dL (7-20); CALCIUM 11.8 mg/dL (8.4-10.2); CARBON DIOXIDE 29 mmol/L (22-30); CHLORIDE 100 mmol/L (98-107); CHOLESTEROL 107.82 mg/dL (0-200); GLUCOSE 171 mg/dL (75-110); POTASSIUM 3.8 mmol/L (3.6-5.0); TOTAL PROTEIN 6.9 g/dL (6.3-8.2); TRIGLYCERIDES 90 mg/dL (<150)
[2018-03-08 06:51] LABS: ARTERIAL BLOOD FIO2 40%
[2018-03-08 06:56] LABS: DIRECT LDL 50 mg/dL (<100)
[2018-03-08 06:57] LABS: CREATINE KINASE MB 0.42 ng/mL (<4.55); TROPONIN I 0.064 ng/mL
--- NOTE | 2018-03-08 08:17 | RADIOLOGY REPORT (SQ) ---
EXAM DESCRIPTION: CHEST SINGLE VIEW COMPLETED DATE/TIME: 03/08/2018 7:56 am REASON FOR STUDY: pneumonia COMPARISON: 03/07/2018 EXAM PARAMETERS: NUMBER OF VIEWS: One view. TECHNIQUE: Single frontal radiographic view of the chest acquired. RADIATION DOSE: NA LIMITATIONS: None. FINDINGS: LUNGS AND PLEURA: The previously described increased opacification in the right hemithorax shows interval improvement with decreasing confluence. Extensive residual changes are identified. Small left pleural effusion is again identified and I cannot exclude some associated atelectasis or i nfiltrate in the left lung base. MEDIASTINUM AND HILAR STRUCTURES: No masses. Contour normal. HEART AND VASCULAR STRUCTURES: Cardiac silhouette is partially obscured but appears unchanged. BONES: No acute findings. HARDWARE: Tracheostomy tube is unchanged in position. OTHER: No other significant finding. IMPRESSION: Interval improvement in the opacification in the right hemithorax as noted above. Fairl y extensive residual changes are identified. Left basilar densities as noted above. TECHNICAL DOCUMENTATION: JOB ID: [id number] [employer]- All Rights Reserved Reading location - IP/workstation name: [email or web address]
[2018-03-08] MEDS ORDERED: ASPIRIN 81 MG TABLET, ENT COATED PO SCH (10:00)
[2018-03-08] MEDS: ASCORBIC ACID 500 MG TABLET PEG SCH (10:31)
[2018-03-08] MEDS: AMLODIPINE BESYLATE 10 MG TABLET PEG SCH (10:31)
[2018-03-08] MEDS: ASPIRIN 81 MG TABLET, CHEWABLE PEG SCH (10:32)
[2018-03-08] MEDS: LACTOBACILLUS ACIDOPHILUS 250 MG TAB PEG SCH (10:32)
[2018-03-08] MEDS: MEMANTINE HCL 10 MG TABLET PEG SCH (10:32)
[2018-03-08] MEDS: VANCOMYCIN HCL 1,250 MG in DEXTROSE 5%-WATER 250 ML IV SCH (12:23)
[2018-03-08] MEDS: IPRATROPIUM/ALBUTEROL 0.5-2.5 MG/3 ML AMPUL NEB SCH ×2 (13:35→19:50)
[2018-03-08] MEDS: INSULIN DETEMIR 100 UNIT/ML 3 ML PEN SUBCUT SCH (14:14)
--- NOTE | 2018-03-08 14:37 | PDOC H&P ---
History of Present Illness Admission Date/PCP: 03/07/18 15:18 BAKARI BECKER MD History of Present Illness: BRIANA BRADY is a 82 year old female, she has a very complicated medical history, chronic respiratory failure, vent dependent with a tracheostomy, a tube feeder, with indwelling Palacios catheter. She recently had a prolonged hospital admission at [facility] in [facility], she was transferred from home to the emergency room for evaluation of altered mental status, increasing abdominal distention, cloudy urine output out of the Palacios catheter.. CT scan of the abdomen and pelvis with oral contrast was done, it showed dense consolidation in the right lower lobe worrisome for pneumonia, adjacent loculated appearing small right pleural effusion also found was diffusely abnormal distended gallbladder with wall thickening, subsequent ultrasound of the gallbladder showed multiple gallstones, this suggests she may have calculous cholecystitis. No history could be obtained from this patient, there is no eye contact, she has the eyes closed does not respond to verbal commands Past Medical History Cardiac Medical History: Reports: Congestive Heart Failure, Hyperlipidema, Hypertension, Peripheral Vascular Disease, Pulmonary Embolism Pulmonary Medical History: Reports: Chronic Obstructive Pulmonary Disease (COPD) , Pneumonia - aspiration Endocrine Medical History: Reports: Diabetes Mellitus Type 2 Psychiatric Medical History: Reports: Dementia Infectious Medical History: Reports: Clostridium Difficile Past Surgical History Past Surgical History: Reports: Orthopedic Surgery - Shoulder. 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 Social History Smoking Status: Never Smoker Frequency of Alcohol Use: None Hx Recreational Drug Use: No Drugs: None Hx Prescription Drug Abuse: No Family History Family History: Reviewed & Not Pertinent Parental Family History Reviewed: Yes Children Family History Reviewed: Yes Sibling(s) Family History Reviewed.: Yes Medication/Allergy Home Medications: Amlodipine Besylate [Norvasc 10 mg Tablet] 10 mg PEG DAILY 12/18/17 Ascorbic Acid [Vitamin C 500 mg Tablet] 500 mg PEG DAILY 12/18/17 Aspirin [Adult Low Dose Aspirin EC] 81 mg PEG DAILY 12/18/17 Insulin Aspart [Novolog Flexpen] 0 units SQ .PERSLIDINGSCALE MDD ACCUCHECKS Q6 12/18/17 Insulin Detemir [Levemir Flextouch] 10 units SQ DAILY 12/18/17 Memantine HCl [Namenda 10 mg Tablet] 10 mg PEG DAILY 12/18/17 Multivitamin [Animal Shapes] 1 tab PEG DAILY 12/18/17 Budesonide [Pulmicort Neb 0.5 mg/2 ml Ampul] 0.5 mg NEB RTQ12 03/07/18 Furosemide [Lasix 40 mg Tablet] 40 mg PEG DAILY 03/07/18 Ipratropium/Albuterol Sulfate [Duoneb 3 ml Ampul] 3 ml NEB RTQ6 03/07/18 Lactobacillus Acidophilus [Acidophilus Lactobacilli] 1 tab PEG DAILY 03/07/18 Ondansetron HCl [Zofran 8 mg Tablet] 8 mg PEG TIDP PRN 03/07/18 Simethicone [Little Remedies Gas Relief] 80 mg PEG ASDIR PRN 03/07/18 Tobramycin Sulfate/Dexameth [Tobradex Oph Drops 2.5 Ml Bottle] 1 drop OU Q6 09/12 Allergies/Adverse Reactions: alprazolam [From Xanax] Allergy (Verified 03/07/18 09:34) iodine [Iodine] Allergy (Verified 03/07/18 09:34) quetiapine fumarate [From Seroquel] Allergy (Verified 03/07/18 09:34) Review of Systems ROS unobtainable: Due to mental status Physical Exam Vital Signs: Temp Pulse Resp BP Pulse Ox 98.8 F 60 14 133/53 H 97 03/08/18 07:46 03/08/18 13:37 03/08/18 13:37 03/08/18 07:46 03/08/18 13:37 Intake & Output 03/07/18 03/08/18 03/09/18 06:59 06:59 06:59 Intake Total 680 0 Output Total 610 275 Balance 70 -275 Weight 80.4 kg General appearance: PRESENT: other Head exam: PRESENT: atraumatic, normocephalic Eye exam: PRESENT: other - Eyes closed Ear exam: PRESENT: normal external ear exam Neck exam: PRESENT: full ROM Respiratory exam: PRESENT: decreased breath sounds, rhonchi Cardiovascular exam: PRESENT: RRR, +S1, +S2 Vascular exam: PRESENT: normal capillary refill GI/Abdominal exam: PRESENT: distended, tenderness Rectal exam: PRESENT: deferred Extremities exam: PRESENT: left AKA Neurological exam: PRESENT: altered Results Laboratory Results: 03/08/18 05:45 03/08/18 05:45 03/07/18 03/07/18 03/07/18 18:07 18:07 18:07 WBC RBC Hgb Hct MCV MCH MCHC RDW Plt Count Seg Neutrophils % Lymphocytes % Monocytes % Eosinophils % Basophils % Absolute Neutrophils Absolute Lymphocytes Absolute Monocytes Absolute Eosinophils Absolute Basophils Carbonic Acid HCO3/H2CO3 Ratio ABG pH ABG pCO2 ABG pO2 ABG HCO3 ABG O2 Saturation ABG Base Excess FiO2 Sodium Potassium Chloride Carbon Dioxide Anion Gap BUN Creatinine Est GFR ( Amer) Est GFR (Non-Af Amer) Glucose Calcium Magnesium 2.0 Total Bilirubin AST ALT Alkaline Phosphatase Ammonia 16.1 Total Protein Albumin Triglycerides Cholesterol LDL Cholesterol Direct VLDL Cholesterol HDL Cholesterol Amylase 55 Lipase 227.0 TSH 4.50 Free T4 1.70 Free T3 pg/mL 3.17 03/07/18 03/07/18 03/08/18 18:07 18:08 05:08 WBC RBC Hgb Hct MCV MCH MCHC RDW Plt Count Seg Neutrophils % Lymphocytes % Monocytes % Eosinophils % Basophils % Absolute Neutrophils Absolute Lymphocytes Absolute Monocytes Absolute Eosinophils Absolute Basophils Carbonic Acid 1.14 Cancelled HCO3/H2CO3 Ratio 27:1 Cancelled ABG pH 7.54 H Cancelled ABG pCO2 38.0 Cancelled ABG pO2 56.2 L Cancelled ABG HCO3 31.8 H Cancelled ABG O2 Saturation 92.5 L Cancelled ABG Base Excess 8.5 Cancelled FiO2 35% Cancelled Sodium 135.7 L Potassium 3.7 D Chloride 95 L Carbon Dioxide 31 H Anion Gap 10 BUN 70 H Creatinine 0.76 Est GFR ( Amer) > 60 Est GFR (Non-Af Amer) > 60 Glucose 218 H Calcium 12.6 H* Magnesium Total Bilirubin 0.3 AST 75 H ALT 77 H Alkaline Phosphatase 290 H Ammonia Total Protein 7.2 Albumin 3.2 L Triglycerides Cholesterol LDL Cholesterol Direct VLDL Cholesterol HDL Cholesterol Amylase Lipase TSH Free T4 Free T3 pg/mL 03/08/18 03/08/18 03/08/18 05:45 05:45 06:08 WBC 16.8 H RBC 2.80 L Hgb 7.2 L Hct 22.5 L MCV 80 MCH 25.9 L MCHC 32.2 RDW 17.7 H Plt Count 425 Seg Neutrophils % 77.2 Lymphocytes % 13.1 Monocytes % 4.5 Eosinophils % 4.5 Basophils % 0.7 Absolute Neutrophils 13.0 H Absolute Lymphocytes 2.2 Absolute Monocytes 0.8 Absolute Eosinophils 0.8 H Absolute Basophils 0.1 Carbonic Acid 1.26 HCO3/H2CO3 Ratio 22:1 ABG pH 7.45 ABG pCO2 41.9 ABG pO2 70.7 L ABG HCO3 28.5 H ABG O2 Saturation 94.9 ABG Base Excess 4.1 FiO2 40% Sodium 139.0 Potassium 3.8 Chloride 100 Carbon Dioxide 29 Anion Gap 10 BUN 63 H Creatinine 0.80 Est GFR ( Amer) > 60 Est GFR (Non-Af Amer) > 60 Glucose 171 H Calcium 11.8 H Magnesium Total Bilirubin 0.4 AST 59 H ALT 63 H Alkaline Phosphatase 245 H Ammonia Total Protein 6.9 Albumin 2.9 L Triglycerides 90 Cholesterol 107.82 LDL Cholesterol Direct 50 VLDL Cholesterol 18.0 HDL Cholesterol 32 L Amylase Lipase TSH Free T4 Free T3 pg/mL 03/07/18 03/07/18 03/08/18 18:07 23:40 05:45 CK-MB (CK-2) 0.66 0.43 0.42 Troponin I 0.053 0.047 0.064 Impressions: Abdomen/Pelvis CT 03/07/18 08:52 IMPRESSION: Dense consolidation in the right lower lobe worrisome for pneumonia. Small parapneumonic effusion. Thick walled gallbladder with stones. Acute cholecystitis may be present Wall thickening and luminal narrowing distal sigmoid colon, worrisome for focal colitis. No adjacent abscess. Abdomen Ultrasound 03/07/18 12:49 IMPRESSION: Findings consistent with multiple gallstones. There is borderline thickening of the gallbladder wall. Other findings as noted above Chest X-Ray 03/08/18 06:00 IMPRESSION: Interval improvement in the opacification in the right hemithorax as noted above. Fairly extensive residual changes are identified. Left basilar densities as noted above. Assessment & Plan - Diagnosis (1) Acute hypoxemic respiratory failure Is this a current diagnosis for this admission?: Yes Plan: This is most likely from pneumonia, start broad-spectrum antibiotic (2) Right lower lobe pneumonia Qualifiers: Pneumonia type: aspiration pneumonia Aspiration pneumonia type: unspecified Qualified Code(s): J69.0 - Pneumonitis due to inhalation of food and vomit Is this a current diagnosis for this admission?: Yes (3) Ventilator associated pneumonia Is this a current diagnosis for this admission?: Yes (4) Acute calculous cholecystitis Is this a current diagnosis for this admission?: Yes Plan: Consultation obtained from surgery (5) Urinary tract infection associated with indwelling urethral catheter Qualifiers: Encounter type: initial encounter Qualified Code(s): T83.511A - Infection and inflammatory reaction due to indwelling urethral catheter, initial encounter ; N39.0 - Urinary tract infection, site not specified; N39.0 - Urinary tract infection, site not specified Is this a current diagnosis for this admission?: Yes (6) Metabolic encephalopathy Is this a current diagnosis for this admission?: Yes (7) Debilitated patient Is this a current diagnosis for this admission?: Yes - Plan Summary Plan Summary: Patient with multiple comorbid conditions, she remained a full code, despite multiple discussion with family about making patient a DNR status. She has multiple comorbid conditions, bedbound, sedentary, status post amputation, vent dependent,
--- NOTE | 2018-03-08 14:55 | Progress Note ---
Provider Note Provider Note: Spoke with Dept of Anesthesia, Dr Donis patient is ventilator dependant and apparently he feels that patient is high risk. We are not able to perform procedure either bedside or at Endo unit the only way I can see if patient is to get any sort of GI procedure done is if she is moved to the ICU setting. continue to monitor H/H
--- NOTE | 2018-03-08 15:16 | RADIOLOGY REPORT (SQ) ---
EXAM DESCRIPTION: CT HEAD WITHOUT COMPLETED DATE/TIME: 03/08/2018 2:52 pm REASON FOR STUDY: altered mental status COMPARISON: 11/07/2017 TECHNIQUE: Axial images acquired through the brain without intravenous contrast. Images reviewed wi th bone, brain and subdural windows. Additional sagittal and coronal reconstructions were generated. Images stored on PACS. All CT scanners at this facility use dose modulation, iterative reconstruction, and/or weight based d osing when appropriate to reduce radiation dose to as low as reasonably achievable (ALARA). [facility]: Dose Right [facility]: CareDose [facility]: Dose Right [facility]: Teradose 4D [facility]: [employer] RADIATION DOSE: CT Rad equipment meets quality standard of care and radiation dose reduction techniq ues were employed. CTDIvol: 48.6 mGy. DLP: 953 mGy-cm. mGy. LIMITATIONS: None. FINDINGS: VENTRICLES: Prominent ventricles secondary to involutional atrophy. CEREBRUM: Cortical atrophy. No masses. No hemorrhage. No midline shift. No evidence for acute inf arction. Areas of low density in the white matter most likely chronic small vessel ischemic changes. CEREBELLUM: No masses or hemorrhage. There is a stable arachnoid cyst in the posterior fossa on the left. EXTRAAXIAL SPACES: No fluid collections. No masses. ORBITS AND GLOBE: No intra- or extraconal masses. Normal contour of globe without masses. CALVARIUM: No fracture. PARANASAL SINUSES: There is opacification in the right sphenoid sinus. SOFT TISSUES: No mass or hematoma. OTHER: No other significant finding. IMPRESSION: 1. CHRONIC MICROVASCULAR ISCHEMIA. NO ACUTE IMAGING FINDINGS IN THE BRAIN. 2. RIGHT SPHENOID SINUS DISEASE. EVIDENCE OF ACUTE STROKE: NO. COMMENT: Quality ID # [id number]: Final reports with documentation of one or more dose reduction techniques (e.g., Automated exposure control, adjustment of the mA and/or kV according to patient size, use of iterative reconstruction technique) TECHNICAL DOCUMENTATION: JOB ID: [id number] [employer]- All Rights Reserved Reading location - IP/workstation name: [email or web address]
[2018-03-08] MEDS: INSULIN REG, HUMAN 100 UNIT/ML 3 ML VIAL (PYX) SUBCUT PRN ×2 (18:39→21:57)
--- NOTE | 2018-03-08 20:31 | PDOC PROGRESS REPORT ---
Subjective Progress Note for:: 03/08/18 Subjective:: Patient seen by the bedside, no eye contact, multiple comorbidities, CT head was done negative for acute pathology Reason For Visit: VENTILATOR ASSOCIATED PNEUMONIA,CHRONIC Physical Exam Vital Signs: Temp Pulse Resp BP Pulse Ox 98.3 F 60 20 133/57 H 95 03/08/18 16:51 03/08/18 19:00 03/08/18 16:51 03/08/18 16:51 03/08/18 16:51 Intake & Output 03/07/18 03/08/18 03/09/18 06:59 06:59 06:59 Intake Total 680 1903 Output Total 610 475 Balance 70 1428 Weight 80.4 kg General appearance: PRESENT: other - On mechanical ventilation Respiratory exam: PRESENT: clear to auscultation monica Cardiovascular exam: PRESENT: +S1, +S2 GI/Abdominal exam: PRESENT: soft Neurological exam: PRESENT: altered Results Laboratory Results: 03/08/18 05:45 03/08/18 05:45 03/07/18 03/08/18 03/08/18 18:07 05:08 05:45 WBC 16.8 H RBC 2.80 L Hgb 7.2 L Hct 22.5 L MCV 80 MCH 25.9 L MCHC 32.2 RDW 17.7 H Plt Count 425 Seg Neutrophils % 77.2 Lymphocytes % 13.1 Monocytes % 4.5 Eosinophils % 4.5 Basophils % 0.7 Absolute Neutrophils 13.0 H Absolute Lymphocytes 2.2 Absolute Monocytes 0.8 Absolute Eosinophils 0.8 H Absolute Basophils 0.1 Carbonic Acid Cancelled HCO3/H2CO3 Ratio Cancelled ABG pH Cancelled ABG pCO2 Cancelled ABG pO2 Cancelled ABG HCO3 Cancelled ABG O2 Saturation Cancelled ABG Base Excess Cancelled FiO2 Cancelled Sodium 135.7 L Potassium 3.7 D Chloride 95 L Carbon Dioxide 31 H Anion Gap 10 BUN 70 H Creatinine 0.76 Est GFR ( Amer) > 60 Est GFR (Non-Af Amer) > 60 Glucose 218 H Calcium 12.6 H* Total Bilirubin 0.3 AST 75 H ALT 77 H Alkaline Phosphatase 290 H Total Protein 7.2 Albumin 3.2 L Triglycerides Cholesterol LDL Cholesterol Direct VLDL Cholesterol HDL Cholesterol 03/08/18 03/08/18 05:45 06:08 WBC RBC Hgb Hct MCV MCH MCHC RDW Plt Count Seg Neutrophils % Lymphocytes % Monocytes % Eosinophils % Basophils % Absolute Neutrophils Absolute Lymphocytes Absolute Monocytes Absolute Eosinophils Absolute Basophils Carbonic Acid 1.26 HCO3/H2CO3 Ratio 22:1 ABG pH 7.45 ABG pCO2 41.9 ABG pO2 70.7 L ABG HCO3 28.5 H ABG O2 Saturation 94.9 ABG Base Excess 4.1 FiO2 40% Sodium 139.0 Potassium 3.8 Chloride 100 Carbon Dioxide 29 Anion Gap 10 BUN 63 H Creatinine 0.80 Est GFR ( Amer) > 60 Est GFR (Non-Af Amer) > 60 Glucose 171 H Calcium 11.8 H Total Bilirubin 0.4 AST 59 H ALT 63 H Alkaline Phosphatase 245 H Total Protein 6.9 Albumin 2.9 L Triglycerides 90 Cholesterol 107.82 LDL Cholesterol Direct 50 VLDL Cholesterol 18.0 HDL Cholesterol 32 L 03/07/18 03/07/18 03/08/18 18:07 23:40 05:45 CK-MB (CK-2) 0.66 0.43 0.42 Troponin I 0.053 0.047 0.064 Impressions: Abdomen/Pelvis CT 03/07/18 08:52 IMPRESSION: Dense consolidation in the right lower lobe worrisome for pneumonia. Small parapneumonic effusion. Thick walled gallbladder with stones. Acute cholecystitis may be present Wall thickening and luminal narrowing distal sigmoid colon, worrisome for focal colitis. No adjacent abscess. Abdomen Ultrasound 03/07/18 12:49 IMPRESSION: Findings consistent with multiple gallstones. There is borderline thickening of the gallbladder wall. Other findings as noted above Head CT 03/08/18 00:00 IMPRESSION: 1. CHRONIC MICROVASCULAR ISCHEMIA. NO ACUTE IMAGING FINDINGS IN THE BRAIN. 2. RIGHT SPHENOID SINUS DISEASE. EVIDENCE OF ACUTE STROKE: NO. Chest X-Ray 03/08/18 06:00 IMPRESSION: Interval improvement in the opacification in the right hemithorax as noted above. Fairly extensive residual changes are identified. Left basilar densities as noted above. Assessment & Plan - Diagnosis (1) Acute hypoxemic respiratory failure Is this a current diagnosis for this admission?: Yes (2) Right lower lobe pneumonia Qualifiers: Pneumonia type: aspiration pneumonia Aspiration pneumonia type: unspecified Qualified Code(s): J69.0 - Pneumonitis due to inhalation of food and vomit Is this a current diagnosis for this admission?: Yes (3) Ventilator associated pneumonia Is this a current diagnosis for this admission?: Yes (4) Acute calculous cholecystitis Is this a current diagnosis for this admission?: Yes (5) Urinary tract infection associated with indwelling urethral catheter Qualifiers: Encounter type: initial encounter Qualified Code(s): T83.511A - Infection and inflammatory reaction due to indwelling urethral catheter, initial encounter ; N39.0 - Urinary tract infection, site not specified; N39.0 - Urinary tract infection, site not specified Is this a current diagnosis for this admission?: Yes (6) Metabolic encephalopathy Is this a current diagnosis for this admission?: Yes (7) Debilitated patient Is this a current diagnosis for this admission?: Yes - Plan Summary Plan Summary: She will continue IV antibiotic, she was seen by GI, no intention to do colonoscopy, she was seen by surgeon no intention to do surgery regarding the gallstones, overall prognosis is poor in this patient, she remains a full code
--- NOTE | 2018-03-08 22:08 | PDOC PROGRESS REPORT ---
Subjective Progress Note for:: 03/08/18 Subjective:: This is an 82-year-old female with multiple medical problems. Currently she has a UTI, pneumonia, and a history of C. difficile. There is a question regarding possible cholecystitis. The patient is obtunded and cannot speak. A review of systems is unobtainable. Reason For Visit: VENTILATOR ASSOCIATED PNEUMONIA,CHRONIC Physical Exam Vital Signs: Temp Pulse Resp BP Pulse Ox 98.3 F 73 12 133/57 H 95 03/08/18 16:51 03/08/18 19:50 03/08/18 19:50 03/08/18 16:51 03/08/18 19:50 Intake & Output 03/07/18 03/08/18 03/09/18 06:59 06:59 06:59 Intake Total 680 1903 Output Total 610 475 Balance 70 1428 Weight 80.4 kg General appearance: PRESENT: obese Head exam: PRESENT: atraumatic, normocephalic Eye exam: ABSENT: scleral icterus Mouth exam: PRESENT: moist, neck supple Neck exam: PRESENT: tracheostomy Respiratory exam: PRESENT: other - On ventilator, coarse breath sounds bilaterally. ABSENT: chest wall tenderness Cardiovascular exam: PRESENT: RRR Pulses: PRESENT: normal radial pulses Vascular exam: PRESENT: normal capillary refill. ABSENT: pallor GI/Abdominal exam: PRESENT: soft. ABSENT: distended, tenderness Rectal exam: PRESENT: deferred Neurological exam: ABSENT: alert, awake, oriented to person, oriented to place, oriented to time, oriented to situation Psychiatric exam: ABSENT: agitated Skin exam: ABSENT: cyanosis, erythema, jaundice Results Laboratory Results: 03/08/18 05:45 03/08/18 05:45 03/07/18 03/08/18 03/08/18 18:07 05:08 05:45 WBC 16.8 H RBC 2.80 L Hgb 7.2 L Hct 22.5 L MCV 80 MCH 25.9 L MCHC 32.2 RDW 17.7 H Plt Count 425 Seg Neutrophils % 77.2 Lymphocytes % 13.1 Monocytes % 4.5 Eosinophils % 4.5 Basophils % 0.7 Absolute Neutrophils 13.0 H Absolute Lymphocytes 2.2 Absolute Monocytes 0.8 Absolute Eosinophils 0.8 H Absolute Basophils 0.1 Carbonic Acid Cancelled HCO3/H2CO3 Ratio Cancelled ABG pH Cancelled ABG pCO2 Cancelled ABG pO2 Cancelled ABG HCO3 Cancelled ABG O2 Saturation Cancelled ABG Base Excess Cancelled FiO2 Cancelled Sodium 135.7 L Potassium 3.7 D Chloride 95 L Carbon Dioxide 31 H Anion Gap 10 BUN 70 H Creatinine 0.76 Est GFR ( Amer) > 60 Est GFR (Non-Af Amer) > 60 Glucose 218 H Calcium 12.6 H* Total Bilirubin 0.3 AST 75 H ALT 77 H Alkaline Phosphatase 290 H Total Protein 7.2 Albumin 3.2 L Triglycerides Cholesterol LDL Cholesterol Direct VLDL Cholesterol HDL Cholesterol 03/08/18 03/08/18 05:45 06:08 WBC RBC Hgb Hct MCV MCH MCHC RDW Plt Count Seg Neutrophils % Lymphocytes % Monocytes % Eosinophils % Basophils % Absolute Neutrophils Absolute Lymphocytes Absolute Monocytes Absolute Eosinophils Absolute Basophils Carbonic Acid 1.26 HCO3/H2CO3 Ratio 22:1 ABG pH 7.45 ABG pCO2 41.9 ABG pO2 70.7 L ABG HCO3 28.5 H ABG O2 Saturation 94.9 ABG Base Excess 4.1 FiO2 40% Sodium 139.0 Potassium 3.8 Chloride 100 Carbon Dioxide 29 Anion Gap 10 BUN 63 H Creatinine 0.80 Est GFR ( Amer) > 60 Est GFR (Non-Af Amer) > 60 Glucose 171 H Calcium 11.8 H Total Bilirubin 0.4 AST 59 H ALT 63 H Alkaline Phosphatase 245 H Total Protein 6.9 Albumin 2.9 L Triglycerides 90 Cholesterol 107.82 LDL Cholesterol Direct 50 VLDL Cholesterol 18.0 HDL Cholesterol 32 L 03/07/18 03/07/18 03/08/18 18:07 23:40 05:45 CK-MB (CK-2) 0.66 0.43 0.42 Troponin I 0.053 0.047 0.064 Impressions: Abdomen/Pelvis CT 03/07/18 08:52 IMPRESSION: Dense consolidation in the right lower lobe worrisome for pneumonia. Small parapneumonic effusion. Thick walled gallbladder with stones. Acute cholecystitis may be present Wall thickening and luminal narrowing distal sigmoid colon, worrisome for focal colitis. No adjacent abscess. Abdomen Ultrasound 03/07/18 12:49 IMPRESSION: Findings consistent with multiple gallstones. There is borderline thickening of the gallbladder wall. Other findings as noted above Head CT 03/08/18 00:00 IMPRESSION: 1. CHRONIC MICROVASCULAR ISCHEMIA. NO ACUTE IMAGING FINDINGS IN THE BRAIN. 2. RIGHT SPHENOID SINUS DISEASE. EVIDENCE OF ACUTE STROKE: NO. Chest X-Ray 03/08/18 06:00 IMPRESSION: Interval improvement in the opacification in the right hemithorax as noted above. Fairly extensive residual changes are identified. Left basilar densities as noted above. Assessment & Plan - Diagnosis (1) Cholelithiasis Qualifiers: Cholelithiasis location: gallbladder Cholecystitis presence: without cholecystitis Biliary obstruction: without biliary obstruction Qualified Code(s): K80.20 - Calculus of gallbladder without cholecystitis without obstruction Is this a current diagnosis for this admission?: Yes - Plan Summary Plan Summary: This is an 82-year-old female with multiple medical problems. Currently, she is obtunded due to her other medical issues (including UTI and pneumonia). There is a question regarding gallstones and/or cholecystitis. I have reviewed her images. I am not overly impressed with the amount of "cholecystitis". Her bilirubin is normal. The patient had a HIDA scan ordered, but this test could not be completed due to her ventilator dependence. The patient is certainly not a surgical candidate. I have recommended a watchful waiting approach in regards to her gallbladder. Continue antibiotics. If she requires treatment for cholecystitis, a cholecystostomy tube (preferentially percutaneously placed ) is the treatment of choice.
[2018-03-09] MEDS: TOBRAMYCIN SULFATE/DEXAMETH OPH SUSP 2.5 ML OU SCH ×5 (00:57→23:35)
[2018-03-09] MEDS: IPRATROPIUM/ALBUTEROL 0.5-2.5 MG/3 ML AMPUL NEB SCH ×4 (01:59→20:13)
[2018-03-09] MEDS: PIPERACILLIN SODIUM/TAZOBACTAM 3.375 GM in NORMAL SALINE 100 ML IV SCH ×4 (02:42→22:38)
[2018-03-09] MEDS: HEPARIN SOD (PORCINE) 5,000 UNIT/ML 1 ML SYRINGE SUBCUT SCH ×3 (05:13→22:41)
[2018-03-09 05:30] LABS: ABSOLUTE BASOPHILS # (AUTO) 0.1 10^3/uL (0.0-0.2); ABSOLUTE EOSINOPHILS # (AUTO) 1.6 10^3/uL (0.0-0.6); ABSOLUTE LYMPHOCYTES (AUTO) 3.7 10^3/uL (0.5-4.7); ABSOLUTE MONOCYTES (AUTO) 1.2 10^3/uL (0.1-1.4); ABSOLUTE NEUT (AUTO) 6.5 10^3/uL (1.7-8.2); BASOPHILS % (AUTO) 0.8 % (0-2); EOSINOPHILS % (AUTO) 12.5 % (0-6); HEMATOCRIT 22.1 % (36.0-47.0); LYMPHOCYTES % (AUTO) 28.4 % (13-45); MEAN CORPUSCULAR HEMOGLOBIN 25.8 pg (27.0-33.4); MEAN CORPUSCULAR HGB CONC 32.1 g/dL (32.0-36.0); MEAN CORPUSCULAR VOLUME 80 fl (80-97); MONOCYTES % (AUTO) 9.1 % (3-13); PLATELET COUNT 422 10^3/uL (150-450); RED BLOOD COUNT 2.75 10^6/uL (3.72-5.28); RED CELL DISTRIBUTION WIDTH 17.9 % (11.5-14.0); SEGMENTED NEUTROPHILS % (AUTO) 49.2 % (42-78); TOTAL CELLS COUNTED % (AUTO) 100 %; WHITE BLOOD COUNT 13.2 10^3/uL (4.0-10.5)
[2018-03-09 05:33] LABS: HEMOGLOBIN 7.1 g/dL (12.0-15.5)
[2018-03-09 05:50] LABS: ALANINE AMINOTRANSFERASE 52 U/L (9-52); ALBUMIN 2.9 g/dL (3.5-5.0); ALKALINE PHOSPHATASE 228 U/L (38-126); ANION GAP 11 (5-19); ASPARTATE AMINO TRANSFERASE 39 U/L (14-36); BILIRUBIN,DIRECT 0.2 mg/dL (0.0-0.4); BILIRUBIN,TOTAL 0.2 mg/dL (0.2-1.3); BLOOD UREA NITROGEN 58 mg/dL (7-20); CARBON DIOXIDE 27 mmol/L (22-30); CHLORIDE 104 mmol/L (98-107); GLUCOSE 164 mg/dL (75-110); POTASSIUM 3.4 mmol/L (3.6-5.0); SODIUM 142.2 mmol/L (137-145); TOTAL PROTEIN 6.5 g/dL (6.3-8.2)
--- NOTE | 2018-03-09 09:03 | PDOC PROGRESS REPORT ---
Subjective Progress Note for:: 03/09/18 Subjective:: Patient awake and interactive this morning. She is able to follow commands and respond to questions. She denies any pain. Reason For Visit: VENTILATOR ASSOCIATED PNEUMONIA,CHRONIC Physical Exam Vital Signs: Temp Pulse Resp BP Pulse Ox 98.3 F 78 12 133/57 H 97 03/08/18 16:51 03/09/18 07:00 03/08/18 19:50 03/08/18 16:51 03/09/18 04:00 Intake & Output 03/08/18 03/09/18 03/10/18 06:59 06:59 06:59 Intake Total 680 2966 Output Total 610 1250 Balance 70 1716 Weight 80.4 kg 83.7 kg General appearance: PRESENT: no acute distress, cooperative GI/Abdominal exam: PRESENT: other - Soft, denies any abdominal tenderness. Denies any right upper quadrant tenderness with deep palpation. Results Laboratory Results: 03/09/18 04:20 03/09/18 04:20 03/09/18 03/09/18 04:20 04:20 WBC 13.2 H RBC 2.75 L Hgb 7.1 L Hct 22.1 L MCV 80 MCH 25.8 L MCHC 32.1 RDW 17.9 H Plt Count 422 Seg Neutrophils % 49.2 Lymphocytes % 28.4 Monocytes % 9.1 Eosinophils % 12.5 H Basophils % 0.8 Absolute Neutrophils 6.5 Absolute Lymphocytes 3.7 Absolute Monocytes 1.2 Absolute Eosinophils 1.6 H Absolute Basophils 0.1 Sodium 142.2 Potassium 3.4 L Chloride 104 Carbon Dioxide 27 Anion Gap 11 BUN 58 H Creatinine 0.98 Est GFR ( Amer) > 60 Est GFR (Non-Af Amer) 54 L Glucose 164 H Calcium 11.0 H Total Bilirubin 0.2 AST 39 H ALT 52 Alkaline Phosphatase 228 H Total Protein 6.5 Albumin 2.9 L 03/07/18 03/07/18 03/08/18 18:07 23:40 05:45 CK-MB (CK-2) 0.66 0.43 0.42 Troponin I 0.053 0.047 0.064 Impressions: Abdomen/Pelvis CT 03/07/18 08:52 IMPRESSION: Dense consolidation in the right lower lobe worrisome for pneumonia. Small parapneumonic effusion. Thick walled gallbladder with stones. Acute cholecystitis may be present Wall thickening and luminal narrowing distal sigmoid colon, worrisome for focal colitis. No adjacent abscess. Abdomen Ultrasound 03/07/18 12:49 IMPRESSION: Findings consistent with multiple gallstones. There is borderline thickening of the gallbladder wall. Other findings as noted above Head CT 03/08/18 00:00 IMPRESSION: 1. CHRONIC MICROVASCULAR ISCHEMIA. NO ACUTE IMAGING FINDINGS IN THE BRAIN. 2. RIGHT SPHENOID SINUS DISEASE. EVIDENCE OF ACUTE STROKE: NO. Chest X-Ray 03/08/18 06:00 IMPRESSION: Interval improvement in the opacification in the right hemithorax as noted above. Fairly extensive residual changes are identified. Left basilar densities as noted above. Assessment & Plan - Diagnosis (1) Cholelithiasis Qualifiers: Cholelithiasis location: gallbladder Cholecystitis presence: without cholecystitis Biliary obstruction: without biliary obstruction Qualified Code(s): K80.20 - Calculus of gallbladder without cholecystitis without obstruction Is this a current diagnosis for this admission?: Yes Plan: Patient looks much better today. With no tenderness and no pain in the upper abdomen I do not recommend any surgical intervention. Pending GI workup for her constipation and colon abnormalities seen on CT. General surgery signing off. Please reconsult if there is any other issues.
[2018-03-09] MEDS: AMLODIPINE BESYLATE 10 MG TABLET PEG SCH (09:26)
[2018-03-09] MEDS: INSULIN DETEMIR 100 UNIT/ML 3 ML PEN SUBCUT SCH (09:39)
[2018-03-09] MEDS: ASCORBIC ACID 500 MG TABLET PEG SCH (09:40)
[2018-03-09] MEDS: INSULIN REG, HUMAN 100 UNIT/ML 3 ML VIAL (PYX) SUBCUT PRN ×3 (09:40→17:32)
[2018-03-09] MEDS: ASPIRIN 81 MG TABLET, CHEWABLE PEG SCH (09:40)
[2018-03-09] MEDS: MEMANTINE HCL 10 MG TABLET PEG SCH (09:40)
[2018-03-09] MEDS: LACTOBACILLUS ACIDOPHILUS 250 MG TAB PEG SCH (09:40)
[2018-03-09] MEDS: VANCOMYCIN HCL 1,250 MG in DEXTROSE 5%-WATER 250 ML IV SCH (12:18)
--- NOTE | 2018-03-09 15:11 | PDOC CONSULTATION ---
Consultation Consult Date: 03/08/18 Attending physician:: BAKARI BECKER Consult reason:: pneumonia History of Present Illness Admission Date/PCP: 03/07/18 15:18 BAKARI BECKER MD History of Present Illness: BRIANA BRADY is a 82 year old female to ED for lower abdominal pain and abnormal mental status workup included CT of the chest as well as the head. Patient has chronic respiratory failure and is vent dependent CT of the chest displayed a large right-sided pneumonia as well as a small right-sided loculated effusion. Patient was also noted to have cloudy urine, indwelling Palacios catheter she was subsequently admitted for pneumonia and sepsis Past Medical History Cardiac Medical History: Reports: Congestive Heart Failure, Hyperlipidema, Hypertension, Peripheral Vascular Disease, Pulmonary Embolism Pulmonary Medical History: Reports: Chronic Obstructive Pulmonary Disease (COPD) , Pneumonia - aspiration Endocrine Medical History: Reports: Diabetes Mellitus Type 1, Diabetes Mellitus Type 2 Psychiatric Medical History: Reports: Dementia Denies: Depression Infectious Medical History: Reports: Clostridium Difficile Past Surgical History Past Surgical History: Reports: Orthopedic Surgery - Shoulder. 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 Social History Information Source: [facility] Records Smoking Status: Never Smoker Frequency of Alcohol Use: None Hx Recreational Drug Use: No Drugs: None Hx Prescription Drug Abuse: No Family History Parental Family History Reviewed: No Children Family History Reviewed: No Sibling(s) Family History Reviewed.: No Medication/Allergy Home Medications: Amlodipine Besylate [Norvasc 10 mg Tablet] 10 mg PEG DAILY 12/18/17 Ascorbic Acid [Vitamin C 500 mg Tablet] 500 mg PEG DAILY 12/18/17 Aspirin [Adult Low Dose Aspirin EC] 81 mg PEG DAILY 12/18/17 Insulin Aspart [Novolog Flexpen] 0 units SQ .PERSLIDINGSCALE MDD ACCUCHECKS Q6 12/18/17 Insulin Detemir [Levemir Flextouch] 10 units SQ DAILY 12/18/17 Memantine HCl [Namenda 10 mg Tablet] 10 mg PEG DAILY 12/18/17 Multivitamin [Animal Shapes] 1 tab PEG DAILY 12/18/17 Budesonide [Pulmicort Neb 0.5 mg/2 ml Ampul] 0.5 mg NEB RTQ12 03/07/18 Furosemide [Lasix 40 mg Tablet] 40 mg PEG DAILY 03/07/18 Ipratropium/Albuterol Sulfate [Duoneb 3 ml Ampul] 3 ml NEB RTQ6 03/07/18 Lactobacillus Acidophilus [Acidophilus Lactobacilli] 1 tab PEG DAILY 03/07/18 Ondansetron HCl [Zofran 8 mg Tablet] 8 mg PEG TIDP PRN 03/07/18 Simethicone [Little Remedies Gas Relief] 80 mg PEG ASDIR PRN 03/07/18 Tobramycin Sulfate/Dexameth [Tobradex Oph Drops 2.5 Ml Bottle] 1 drop OU Q6 09/12 Allergies/Adverse Reactions: alprazolam [From Xanax] Allergy (Verified 03/07/18 09:34) iodine [Iodine] Allergy (Verified 03/07/18 09:34) quetiapine fumarate [From Seroquel] Allergy (Verified 03/07/18 09:34) Review of Systems ROS unobtainable: Due to mental status Physical Exam Vital Signs: Temp Pulse Resp BP Pulse Ox 98.6 F 63 19 142/58 H 98 03/08/18 04:05 03/08/18 07:00 03/08/18 04:05 03/08/18 04:05 03/08/18 04:41 Intake & Output 03/07/18 03/08/18 03/09/18 06:59 06:59 06:59 Intake Total 680 Output Total 610 Balance 70 Weight 80.4 kg General appearance: PRESENT: no acute distress, disheveled, obese. ABSENT: cooperative Head exam: PRESENT: atraumatic, normocephalic Eye exam: PRESENT: conjunctiva pale, EOMI. ABSENT: nystagmus, periorbital swelling, scleral icterus Mouth exam: PRESENT: dry mucosa, neck supple, tongue midline Neck exam: PRESENT: tracheostomy. ABSENT: carotid bruit, JVD, lymphadenopathy, thyromegaly, tracheal deviation Respiratory exam: PRESENT: decreased breath sounds, prolonged expiratory phas, rales, rhonchi, unlabored. ABSENT: retraction, stridor Cardiovascular exam: PRESENT: RRR, +S1, +S2, tachycardia Pulses: PRESENT: normal radial pulses GI/Abdominal exam: PRESENT: hypoactive bowel sounds, soft Extremities exam: PRESENT: +1 edema. ABSENT: calf tenderness, clubbing Musculoskeletal exam: ABSENT: ambulatory, deformity, dislocation Neurological exam: PRESENT: awake, oriented to person, oriented to place. ABSENT: oriented to time, oriented to situation Skin exam: PRESENT: dry, warm Results Laboratory Results: 03/08/18 05:45 03/08/18 05:45 03/07/18 03/07/18 03/07/18 18:07 18:07 18:07 WBC RBC Hgb Hct MCV MCH MCHC RDW Plt Count Seg Neutrophils % Lymphocytes % Monocytes % Eosinophils % Basophils % Absolute Neutrophils Absolute Lymphocytes Absolute Monocytes Absolute Eosinophils Absolute Basophils Carbonic Acid HCO3/H2CO3 Ratio ABG pH ABG pCO2 ABG pO2 ABG HCO3 ABG O2 Saturation ABG Base Excess FiO2 Sodium Potassium Chloride Carbon Dioxide Anion Gap BUN Creatinine Est GFR ( Amer) Est GFR (Non-Af Amer) Glucose Calcium Magnesium 2.0 Total Bilirubin AST ALT Alkaline Phosphatase Ammonia 16.1 Total Protein Albumin Triglycerides Cholesterol LDL Cholesterol Direct VLDL Cholesterol HDL Cholesterol Amylase 55 Lipase 227.0 TSH 4.50 Free T4 1.70 Free T3 pg/mL 3.17 03/07/18 03/07/18 03/08/18 18:07 18:08 05:08 WBC RBC Hgb Hct MCV MCH MCHC RDW Plt Count Seg Neutrophils % Lymphocytes % Monocytes % Eosinophils % Basophils % Absolute Neutrophils Absolute Lymphocytes Absolute Monocytes Absolute Eosinophils Absolute Basophils Carbonic Acid 1.14 Cancelled HCO3/H2CO3 Ratio 27:1 Cancelled ABG pH 7.54 H Cancelled ABG pCO2 38.0 Cancelled ABG pO2 56.2 L Cancelled ABG HCO3 31.8 H Cancelled ABG O2 Saturation 92.5 L Cancelled ABG Base Excess 8.5 Cancelled FiO2 35% Cancelled Sodium 135.7 L Potassium 3.7 D Chloride 95 L Carbon Dioxide 31 H Anion Gap 10 BUN 70 H Creatinine 0.76 Est GFR ( Amer) > 60 Est GFR (Non-Af Amer) > 60 Glucose 218 H Calcium 12.6 H* Magnesium Total Bilirubin 0.3 AST 75 H ALT 77 H Alkaline Phosphatase 290 H Ammonia Total Protein 7.2 Albumin 3.2 L Triglycerides Cholesterol LDL Cholesterol Direct VLDL Cholesterol HDL Cholesterol Amylase Lipase TSH Free T4 Free T3 pg/mL 03/08/18 03/08/18 03/08/18 05:45 05:45 06:08 WBC 16.8 H RBC 2.80 L Hgb 7.2 L Hct 22.5 L MCV 80 MCH 25.9 L MCHC 32.2 RDW 17.7 H Plt Count 425 Seg Neutrophils % 77.2 Lymphocytes % 13.1 Monocytes % 4.5 Eosinophils % 4.5 Basophils % 0.7 Absolute Neutrophils 13.0 H Absolute Lymphocytes 2.2 Absolute Monocytes 0.8 Absolute Eosinophils 0.8 H Absolute Basophils 0.1 Carbonic Acid 1.26 HCO3/H2CO3 Ratio 22:1 ABG pH 7.45 ABG pCO2 41.9 ABG pO2 70.7 L ABG HCO3 28.5 H ABG O2 Saturation 94.9 ABG Base Excess 4.1 FiO2 40% Sodium 139.0 Potassium 3.8 Chloride 100 Carbon Dioxide 29 Anion Gap 10 BUN 63 H Creatinine 0.80 Est GFR ( Amer) > 60 Est GFR (Non-Af Amer) > 60 Glucose 171 H Calcium 11.8 H Magnesium Total Bilirubin 0.4 AST 59 H ALT 63 H Alkaline Phosphatase 245 H Ammonia Total Protein 6.9 Albumin 2.9 L Triglycerides 90 Cholesterol 107.82 LDL Cholesterol Direct 50 VLDL Cholesterol 18.0 HDL Cholesterol 32 L Amylase Lipase TSH Free T4 Free T3 pg/mL 03/07/18 03/07/18 03/08/18 18:07 23:40 05:45 CK-MB (CK-2) 0.66 0.43 0.42 Troponin I 0.053 0.047 0.064 Impressions: Abdomen/Pelvis CT 03/07/18 08:52 IMPRESSION: Dense consolidation in the right lower lobe worrisome for pneumonia. Small parapneumonic effusion. Thick walled gallbladder with stones. Acute cholecystitis may be present Wall thickening and luminal narrowing distal sigmoid colon, worrisome for focal colitis. No adjacent abscess. Abdomen Ultrasound 03/07/18 12:49 IMPRESSION: Findings consistent with multiple gallstones. There is borderline thickening of the gallbladder wall. Other findings as noted above Chest X-Ray 03/08/18 06:00 IMPRESSION: Interval improvement in the opacification in the right hemithorax as noted above. Fairly extensive residual changes are identified. Left basilar densities as noted above. Assessment & Plan - Diagnosis (1) Acute hypoxemic respiratory failure Is this a current diagnosis for this admission?: Yes Plan: increase FiO2 as well as tidal volume if necessary (2) Metabolic encephalopathy Is this a current diagnosis for this admission?: Yes Plan: Recurrent issue (3) Right lower lobe pneumonia Qualifiers: Pneumonia type: aspiration pneumonia Aspiration pneumonia type: unspecified Qualified Code(s): J69.0 - Pneumonitis due to inhalation of food and vomit Is this a current diagnosis for this admission?: Yes Plan: No positive cultures thus far (4) Sepsis Qualifiers: Sepsis type: sepsis due to unspecified organism Qualified Code(s): A41.9 - Sepsis, unspecified organism Is this a current diagnosis for this admission?: Yes Plan: T Max:99.0 Labs- All tests 24 hr 03/07/18 03/08/18 09:08 05:45 WBC 15.8 H 16.8 H (5) Eosinophilia Is this a current diagnosis for this admission?: Yes
--- NOTE | 2018-03-09 15:14 | PDOC PROGRESS REPORT ---
Subjective Progress Note for:: 03/09/18 Subjective:: unchanged Reason For Visit: VENTILATOR ASSOCIATED PNEUMONIA,CHRONIC Physical Exam Vital Signs: Temp Pulse Resp BP Pulse Ox 98.3 F 78 12 133/57 H 97 03/08/18 16:51 03/09/18 07:00 03/08/18 19:50 03/08/18 16:51 03/09/18 04:00 Intake & Output 03/08/18 03/09/18 03/10/18 06:59 06:59 06:59 Intake Total 680 2966 Output Total 610 1250 Balance 70 1716 Weight 80.4 kg 83.7 kg General appearance: PRESENT: no acute distress, disheveled, obese Head exam: PRESENT: atraumatic, normocephalic Eye exam: PRESENT: conjunctiva pale, EOMI. ABSENT: nystagmus, periorbital swelling, scleral icterus Mouth exam: PRESENT: dry mucosa, neck supple, tongue midline Neck exam: PRESENT: tracheostomy. ABSENT: carotid bruit, JVD, lymphadenopathy, thyromegaly, tracheal deviation Respiratory exam: PRESENT: decreased breath sounds, prolonged expiratory phas, rales, rhonchi, unlabored. ABSENT: retraction, stridor Cardiovascular exam: PRESENT: RRR, +S1, +S2 Pulses: PRESENT: normal radial pulses GI/Abdominal exam: PRESENT: normal bowel sounds, soft Gentrourinary exam: PRESENT: indwelling catheter Extremities exam: ABSENT: calf tenderness, clubbing Musculoskeletal exam: ABSENT: deformity, dislocation Neurological exam: PRESENT: awake, oriented to person, oriented to place Skin exam: PRESENT: dry, warm Results Laboratory Results: 03/09/18 04:20 03/09/18 04:20 03/09/18 03/09/18 04:20 04:20 WBC 13.2 H RBC 2.75 L Hgb 7.1 L Hct 22.1 L MCV 80 MCH 25.8 L MCHC 32.1 RDW 17.9 H Plt Count 422 Seg Neutrophils % 49.2 Lymphocytes % 28.4 Monocytes % 9.1 Eosinophils % 12.5 H Basophils % 0.8 Absolute Neutrophils 6.5 Absolute Lymphocytes 3.7 Absolute Monocytes 1.2 Absolute Eosinophils 1.6 H Absolute Basophils 0.1 Sodium 142.2 Potassium 3.4 L Chloride 104 Carbon Dioxide 27 Anion Gap 11 BUN 58 H Creatinine 0.98 Est GFR ( Amer) > 60 Est GFR (Non-Af Amer) 54 L Glucose 164 H Calcium 11.0 H Total Bilirubin 0.2 AST 39 H ALT 52 Alkaline Phosphatase 228 H Total Protein 6.5 Albumin 2.9 L 03/07/18 03/07/18 03/08/18 18:07 23:40 05:45 CK-MB (CK-2) 0.66 0.43 0.42 Troponin I 0.053 0.047 0.064 Impressions: Abdomen/Pelvis CT 03/07/18 08:52 IMPRESSION: Dense consolidation in the right lower lobe worrisome for pneumonia. Small parapneumonic effusion. Thick walled gallbladder with stones. Acute cholecystitis may be present Wall thickening and luminal narrowing distal sigmoid colon, worrisome for focal colitis. No adjacent abscess. Abdomen Ultrasound 03/07/18 12:49 IMPRESSION: Findings consistent with multiple gallstones. There is borderline thickening of the gallbladder wall. Other findings as noted above Head CT 03/08/18 00:00 IMPRESSION: 1. CHRONIC MICROVASCULAR ISCHEMIA. NO ACUTE IMAGING FINDINGS IN THE BRAIN. 2. RIGHT SPHENOID SINUS DISEASE. EVIDENCE OF ACUTE STROKE: NO. Chest X-Ray 03/08/18 06:00 IMPRESSION: Interval improvement in the opacification in the right hemithorax as noted above. Fairly extensive residual changes are identified. Left basilar densities as noted above. Assessment & Plan - Diagnosis (1) Acute hypoxemic respiratory failure Is this a current diagnosis for this admission?: Yes Plan: unchanged (2) Metabolic encephalopathy Is this a current diagnosis for this admission?: Yes Plan: unchanged (3) Right lower lobe pneumonia Qualifiers: Pneumonia type: aspiration pneumonia Aspiration pneumonia type: unspecified Qualified Code(s): J69.0 - Pneumonitis due to inhalation of food and vomit Is this a current diagnosis for this admission?: Yes Plan: No positive cultures thus far
--- NOTE | 2018-03-09 19:23 | PDOC PROGRESS REPORT ---
Subjective Progress Note for:: 03/09/18 Subjective:: She was seen by the bedside patient is alert today with eye contact , responsive. Tube feed was started yesterday Reason For Visit: VENTILATOR ASSOCIATED PNEUMONIA,CHRONIC Physical Exam Vital Signs: Temp Pulse Resp BP Pulse Ox 99.2 F 92 20 143/55 H 96 03/09/18 15:52 03/09/18 15:52 03/09/18 15:52 03/09/18 15:52 03/09/18 17:05 Intake & Output 03/08/18 03/09/18 03/10/18 06:59 06:59 06:59 Intake Total 680 2966 1359 Output Total 610 1250 975 Balance 70 1716 384 Weight 80.4 kg 83.7 kg General appearance: PRESENT: no acute distress Eye exam: PRESENT: PERRLA Respiratory exam: PRESENT: rhonchi Cardiovascular exam: PRESENT: +S1, +S2 GI/Abdominal exam: PRESENT: soft Neurological exam: PRESENT: alert Results Laboratory Results: 03/09/18 04:20 03/09/18 04:20 03/09/18 03/09/18 04:20 04:20 WBC 13.2 H RBC 2.75 L Hgb 7.1 L Hct 22.1 L MCV 80 MCH 25.8 L MCHC 32.1 RDW 17.9 H Plt Count 422 Seg Neutrophils % 49.2 Lymphocytes % 28.4 Monocytes % 9.1 Eosinophils % 12.5 H Basophils % 0.8 Absolute Neutrophils 6.5 Absolute Lymphocytes 3.7 Absolute Monocytes 1.2 Absolute Eosinophils 1.6 H Absolute Basophils 0.1 Sodium 142.2 Potassium 3.4 L Chloride 104 Carbon Dioxide 27 Anion Gap 11 BUN 58 H Creatinine 0.98 Est GFR ( Amer) > 60 Est GFR (Non-Af Amer) 54 L Glucose 164 H Calcium 11.0 H Total Bilirubin 0.2 AST 39 H ALT 52 Alkaline Phosphatase 228 H Total Protein 6.5 Albumin 2.9 L 03/07/18 03/07/18 03/08/18 18:07 23:40 05:45 CK-MB (CK-2) 0.66 0.43 0.42 Troponin I 0.053 0.047 0.064 Impressions: Abdomen/Pelvis CT 03/07/18 08:52 IMPRESSION: Dense consolidation in the right lower lobe worrisome for pneumonia. Small parapneumonic effusion. Thick walled gallbladder with stones. Acute cholecystitis may be present Wall thickening and luminal narrowing distal sigmoid colon, worrisome for focal colitis. No adjacent abscess. Abdomen Ultrasound 03/07/18 12:49 IMPRESSION: Findings consistent with multiple gallstones. There is borderline thickening of the gallbladder wall. Other findings as noted above Head CT 03/08/18 00:00 IMPRESSION: 1. CHRONIC MICROVASCULAR ISCHEMIA. NO ACUTE IMAGING FINDINGS IN THE BRAIN. 2. RIGHT SPHENOID SINUS DISEASE. EVIDENCE OF ACUTE STROKE: NO. Chest X-Ray 03/08/18 06:00 IMPRESSION: Interval improvement in the opacification in the right hemithorax as noted above. Fairly extensive residual changes are identified. Left basilar densities as noted above. Assessment & Plan - Diagnosis (1) Acute hypoxemic respiratory failure Is this a current diagnosis for this admission?: Yes (2) Right lower lobe pneumonia Qualifiers: Pneumonia type: aspiration pneumonia Aspiration pneumonia type: unspecified Qualified Code(s): J69.0 - Pneumonitis due to inhalation of food and vomit Is this a current diagnosis for this admission?: Yes (3) Ventilator associated pneumonia Is this a current diagnosis for this admission?: Yes (4) Acute calculous cholecystitis Is this a current diagnosis for this admission?: Yes (5) Urinary tract infection associated with indwelling urethral catheter Qualifiers: Encounter type: initial encounter Qualified Code(s): T83.511A - Infection and inflammatory reaction due to indwelling urethral catheter, initial encounter ; N39.0 - Urinary tract infection, site not specified; N39.0 - Urinary tract infection, site not specified Is this a current diagnosis for this admission?: Yes (6) Metabolic encephalopathy Is this a current diagnosis for this admission?: Yes (7) Debilitated patient Is this a current diagnosis for this admission?: Yes - Plan Summary Plan Summary: Continue empiric antibiotic vancomycin, Zosyn, she has a history of MRSA infection, gram-negative organisms infection this combination of antibiotic to cover the potential pathogens in this patient, she is a [place] of infection
[2018-03-09] MEDS: ACETYLCYSTEINE 20% SOLN 800 MG/4 ML VIAL.NEB NEB SCH (20:13)
[2018-03-10] MEDS: IPRATROPIUM/ALBUTEROL 0.5-2.5 MG/3 ML AMPUL NEB SCH ×4 (02:04→19:49)
[2018-03-10] MEDS: PIPERACILLIN SODIUM/TAZOBACTAM 3.375 GM in NORMAL SALINE 100 ML IV SCH ×4 (02:34→21:39)
[2018-03-10] MEDS: HEPARIN SOD (PORCINE) 5,000 UNIT/ML 1 ML SYRINGE SUBCUT SCH ×3 (05:29→21:39)
[2018-03-10] MEDS: TOBRAMYCIN SULFATE/DEXAMETH OPH SUSP 2.5 ML OU SCH ×3 (05:33→17:40)
[2018-03-10 05:38] LABS: ABSOLUTE BASOPHILS # (AUTO) 0.1 10^3/uL (0.0-0.2); ABSOLUTE EOSINOPHILS # (AUTO) 1.4 10^3/uL (0.0-0.6); ABSOLUTE LYMPHOCYTES (AUTO) 1.1 10^3/uL (0.5-4.7); ABSOLUTE MONOCYTES (AUTO) 1.2 10^3/uL (0.1-1.4); ABSOLUTE NEUT (AUTO) 12.9 10^3/uL (1.7-8.2); BASOPHILS % (AUTO) 0.9 % (0-2); EOSINOPHILS % (AUTO) 8.6 % (0-6); HEMATOCRIT 23.9 % (36.0-47.0); LYMPHOCYTES % (AUTO) 6.5 % (13-45); MEAN CORPUSCULAR HEMOGLOBIN 25.7 pg (27.0-33.4); MEAN CORPUSCULAR HGB CONC 31.8 g/dL (32.0-36.0); MEAN CORPUSCULAR VOLUME 81 fl (80-97); MONOCYTES % (AUTO) 7.3 % (3-13); PLATELET COUNT 423 10^3/uL (150-450); RED BLOOD COUNT 2.96 10^6/uL (3.72-5.28); RED CELL DISTRIBUTION WIDTH 17.9 % (11.5-14.0); SEGMENTED NEUTROPHILS % (AUTO) 76.7 % (42-78); TOTAL CELLS COUNTED % (AUTO) 100 %; WHITE BLOOD COUNT 16.8 10^3/uL (4.0-10.5)
[2018-03-10 05:43] LABS: HEMOGLOBIN 7.6 g/dL (12.0-15.5)
[2018-03-10 05:51] LABS: ALANINE AMINOTRANSFERASE 46 U/L (9-52); ALBUMIN 3.1 g/dL (3.5-5.0); ALKALINE PHOSPHATASE 236 U/L (38-126); ANION GAP 12 (5-19); ASPARTATE AMINO TRANSFERASE 35 U/L (14-36); BILIRUBIN,DIRECT 0.3 mg/dL (0.0-0.4); BILIRUBIN,TOTAL 0.3 mg/dL (0.2-1.3); BLOOD UREA NITROGEN 48 mg/dL (7-20); CALCIUM 10.8 mg/dL (8.4-10.2); CARBON DIOXIDE 28 mmol/L (22-30); CHLORIDE 109 mmol/L (98-107); GLUCOSE 202 mg/dL (75-110); POTASSIUM 3.5 mmol/L (3.6-5.0); SODIUM 148.7 mmol/L (137-145)
[2018-03-10] MEDS: INSULIN REG, HUMAN 100 UNIT/ML 3 ML VIAL (PYX) SUBCUT PRN ×3 (06:44→17:39)
[2018-03-10] MEDS: ACETYLCYSTEINE 20% SOLN 800 MG/4 ML VIAL.NEB NEB SCH ×2 (08:54→19:49)
[2018-03-10] MEDS: NORMAL SALINE 1000 ML 1,000 ML IV PRN (10:13)
[2018-03-10] MEDS: AMLODIPINE BESYLATE 10 MG TABLET PEG SCH (10:13)
[2018-03-10] MEDS: ASPIRIN 81 MG TABLET, CHEWABLE PEG SCH (10:13)
[2018-03-10] MEDS: ASCORBIC ACID 500 MG TABLET PEG SCH (10:13)
[2018-03-10] MEDS: MEMANTINE HCL 10 MG TABLET PEG SCH (10:13)
[2018-03-10] MEDS: LACTOBACILLUS ACIDOPHILUS 250 MG TAB PEG SCH (10:13)
[2018-03-10] MEDS: INSULIN DETEMIR 100 UNIT/ML 3 ML PEN SUBCUT SCH (10:16)
--- NOTE | 2018-03-10 11:03 | PDOC PROGRESS REPORT ---
Subjective Progress Note for:: 03/10/18 Subjective:: Awake and alert still very much dependent on noninvasive positive pressure ventilation Reason For Visit: VENTILATOR ASSOCIATED PNEUMONIA,CHRONIC Physical Exam Vital Signs: Temp Pulse Resp BP Pulse Ox 97.4 F 81 26 H 150/61 H 99 03/10/18 07:34 03/10/18 07:34 03/10/18 07:34 03/10/18 07:34 03/10/18 07:34 Intake & Output 03/09/18 03/10/18 03/11/18 06:59 06:59 06:59 Intake Total 2966 2971 Output Total 1250 2000 Balance 1716 971 Weight 83.7 kg 84.6 kg General appearance: PRESENT: no acute distress, cooperative, disheveled, obese Head exam: PRESENT: atraumatic, normocephalic Eye exam: PRESENT: conjunctiva pale, EOMI. ABSENT: nystagmus, periorbital swelling, scleral icterus Mouth exam: PRESENT: dry mucosa, neck supple, tongue midline Neck exam: ABSENT: carotid bruit, JVD, lymphadenopathy, thyromegaly, tracheal deviation, tracheostomy Respiratory exam: PRESENT: decreased breath sounds, prolonged expiratory phas, rales, rhonchi, wheezes. ABSENT: retraction, stridor Cardiovascular exam: PRESENT: RRR, +S1, +S2 Pulses: PRESENT: normal radial pulses GI/Abdominal exam: PRESENT: diminished bowel sounds, soft Extremities exam: ABSENT: clubbing, joint swelling Musculoskeletal exam: ABSENT: ambulatory, deformity, dislocation Neurological exam: PRESENT: awake, oriented to person, oriented to place Psychiatric exam: PRESENT: flat affect Skin exam: PRESENT: dry, warm Results Laboratory Results: 03/10/18 04:22 03/10/18 04:22 03/10/18 03/10/18 04:22 04:22 WBC 16.8 H RBC 2.96 L Hgb 7.6 L Hct 23.9 L MCV 81 MCH 25.7 L MCHC 31.8 L RDW 17.9 H Plt Count 423 Seg Neutrophils % 76.7 Lymphocytes % 6.5 L Monocytes % 7.3 Eosinophils % 8.6 H Basophils % 0.9 Absolute Neutrophils 12.9 H Absolute Lymphocytes 1.1 Absolute Monocytes 1.2 Absolute Eosinophils 1.4 H Absolute Basophils 0.1 Sodium 148.7 H Potassium 3.5 L Chloride 109 H Carbon Dioxide 28 Anion Gap 12 BUN 48 H Creatinine 0.88 Est GFR ( Amer) > 60 Est GFR (Non-Af Amer) > 60 Glucose 202 H Calcium 10.8 H Total Bilirubin 0.3 AST 35 ALT 46 Alkaline Phosphatase 236 H Total Protein 7.0 Albumin 3.1 L 03/07/18 03/07/18 03/08/18 18:07 23:40 05:45 CK-MB (CK-2) 0.66 0.43 0.42 Troponin I 0.053 0.047 0.064 Impressions: Abdomen/Pelvis CT 03/07/18 08:52 IMPRESSION: Dense consolidation in the right lower lobe worrisome for pneumonia. Small parapneumonic effusion. Thick walled gallbladder with stones. Acute cholecystitis may be present Wall thickening and luminal narrowing distal sigmoid colon, worrisome for focal colitis. No adjacent abscess. Abdomen Ultrasound 03/07/18 12:49 IMPRESSION: Findings consistent with multiple gallstones. There is borderline thickening of the gallbladder wall. Other findings as noted above Head CT 03/08/18 00:00 IMPRESSION: 1. CHRONIC MICROVASCULAR ISCHEMIA. NO ACUTE IMAGING FINDINGS IN THE BRAIN. 2. RIGHT SPHENOID SINUS DISEASE. EVIDENCE OF ACUTE STROKE: NO. Chest X-Ray 03/08/18 06:00 IMPRESSION: Interval improvement in the opacification in the right hemithorax as noted above. Fairly extensive residual changes are identified. Left basilar densities as noted above. Assessment & Plan - Diagnosis (1) Acute hypoxemic respiratory failure Is this a current diagnosis for this admission?: Yes Plan: increase FiO2 as well as tidal volume if necessary (2) Metabolic encephalopathy Is this a current diagnosis for this admission?: Yes Plan: Recurrent issue currently improved (3) Right lower lobe pneumonia Qualifiers: Pneumonia type: aspiration pneumonia Aspiration pneumonia type: unspecified Qualified Code(s): J69.0 - Pneumonitis due to inhalation of food and vomit Is this a current diagnosis for this admission?: Yes Plan: No positive cultures thus far (4) Sepsis Qualifiers: Sepsis type: sepsis due to unspecified organism Qualified Code(s): A41.9 - Sepsis, unspecified organism Is this a current diagnosis for this admission?: Yes Plan: T Max:99.0 Labs- All tests 24 hr 03/07/18 03/08/18 09:08 05:45 WBC 15.8 H 16.8 H (5) Eosinophilia Is this a current diagnosis for this admission?: Yes Plan: Unchanged
[2018-03-10 12:23] LABS: VANCOMYCIN,TROUGH 21.7 ug/mL (5.0-20.0)
[2018-03-10] MEDS: VANCOMYCIN HCL 1,250 MG in DEXTROSE 5%-WATER 250 ML IV SCH (13:21)
[2018-03-10] MEDS ORDERED: FUROSEMIDE 40 MG TABLET PEG ONE (14:30)
[2018-03-10] MEDS: ONDANSETRON HCL 8 MG TABLET PEG PRN (19:30)
--- NOTE | 2018-03-10 20:54 | PDOC PROGRESS REPORT ---
Subjective Progress Note for:: 03/10/18 Subjective:: She was seen by the bedside, she is more awake and responsive today, the etiology for the depressed mental status is multifactorial partly due to hypercalcemia from primary hyperparathyroidism. I explained to family about this diagnosis, the definitive treatment for this condition is surgery but she is not candidate for surgery Reason For Visit: VENTILATOR ASSOCIATED PNEUMONIA,CHRONIC Physical Exam Vital Signs: Temp Pulse Resp BP Pulse Ox 98.5 F 81 28 H 137/63 H 94 03/10/18 19:47 03/10/18 19:49 03/10/18 19:49 03/10/18 19:47 03/10/18 19:49 Intake & Output 03/09/18 03/10/18 03/11/18 06:59 06:59 06:59 Intake Total 2966 2971 1850 Output Total 1250 2000 350 Balance 9867 034 3966 Weight 83.7 kg 84.6 kg General appearance: PRESENT: no acute distress Eye exam: PRESENT: PERRLA Respiratory exam: PRESENT: clear to auscultation monica Cardiovascular exam: PRESENT: +S1, +S2 GI/Abdominal exam: PRESENT: soft Neurological exam: PRESENT: alert Results Laboratory Results: 03/10/18 04:22 03/10/18 04:22 03/10/18 03/10/18 04:22 04:22 WBC 16.8 H RBC 2.96 L Hgb 7.6 L Hct 23.9 L MCV 81 MCH 25.7 L MCHC 31.8 L RDW 17.9 H Plt Count 423 Seg Neutrophils % 76.7 Lymphocytes % 6.5 L Monocytes % 7.3 Eosinophils % 8.6 H Basophils % 0.9 Absolute Neutrophils 12.9 H Absolute Lymphocytes 1.1 Absolute Monocytes 1.2 Absolute Eosinophils 1.4 H Absolute Basophils 0.1 Sodium 148.7 H Potassium 3.5 L Chloride 109 H Carbon Dioxide 28 Anion Gap 12 BUN 48 H Creatinine 0.88 Est GFR ( Amer) > 60 Est GFR (Non-Af Amer) > 60 Glucose 202 H Calcium 10.8 H Total Bilirubin 0.3 AST 35 ALT 46 Alkaline Phosphatase 236 H Total Protein 7.0 Albumin 3.1 L 03/07/18 03/07/18 03/08/18 18:07 23:40 05:45 CK-MB (CK-2) 0.66 0.43 0.42 Troponin I 0.053 0.047 0.064 Impressions: Abdomen/Pelvis CT 03/07/18 08:52 IMPRESSION: Dense consolidation in the right lower lobe worrisome for pneumonia. Small parapneumonic effusion. Thick walled gallbladder with stones. Acute cholecystitis may be present Wall thickening and luminal narrowing distal sigmoid colon, worrisome for focal colitis. No adjacent abscess. Abdomen Ultrasound 03/07/18 12:49 IMPRESSION: Findings consistent with multiple gallstones. There is borderline thickening of the gallbladder wall. Other findings as noted above Head CT 03/08/18 00:00 IMPRESSION: 1. CHRONIC MICROVASCULAR ISCHEMIA. NO ACUTE IMAGING FINDINGS IN THE BRAIN. 2. RIGHT SPHENOID SINUS DISEASE. EVIDENCE OF ACUTE STROKE: NO. Chest X-Ray 03/08/18 06:00 IMPRESSION: Interval improvement in the opacification in the right hemithorax as noted above. Fairly extensive residual changes are identified. Left basilar densities as noted above. Assessment & Plan - Diagnosis (1) Acute hypoxemic respiratory failure Is this a current diagnosis for this admission?: Yes (2) Right lower lobe pneumonia Qualifiers: Pneumonia type: aspiration pneumonia Aspiration pneumonia type: unspecified Qualified Code(s): J69.0 - Pneumonitis due to inhalation of food and vomit Is this a current diagnosis for this admission?: Yes (3) Ventilator associated pneumonia Is this a current diagnosis for this admission?: Yes (4) Acute calculous cholecystitis Is this a current diagnosis for this admission?: Yes (5) Urinary tract infection associated with indwelling urethral catheter Qualifiers: Encounter type: initial encounter Qualified Code(s): T83.511A - Infection and inflammatory reaction due to indwelling urethral catheter, initial encounter ; N39.0 - Urinary tract infection, site not specified; N39.0 - Urinary tract infection, site not specified Is this a current diagnosis for this admission?: Yes Plan: She has polymicrobial UTI from E faecalis and pseudomonas, the organisms are sensitive to present antibiotic regimen (6) Metabolic encephalopathy Is this a current diagnosis for this admission?: Yes (7) Debilitated patient Is this a current diagnosis for this admission?: Yes (8) Primary hyperparathyroidism Is this a current diagnosis for this admission?: Yes (9) Urinary tract infection due to Enterococcus Is this a current diagnosis for this admission?: Yes
[2018-03-11] MEDS: TOBRAMYCIN SULFATE/DEXAMETH OPH SUSP 2.5 ML OU SCH ×4 (00:50→18:21)
[2018-03-11] MEDS: IPRATROPIUM/ALBUTEROL 0.5-2.5 MG/3 ML AMPUL NEB SCH ×4 (01:41→19:45)
[2018-03-11] MEDS: PIPERACILLIN SODIUM/TAZOBACTAM 3.375 GM in NORMAL SALINE 100 ML IV SCH ×4 (03:03→21:25)
[2018-03-11] MEDS: HEPARIN SOD (PORCINE) 5,000 UNIT/ML 1 ML SYRINGE SUBCUT SCH ×3 (06:19→21:25)
[2018-03-11] MEDS: ACETYLCYSTEINE 20% SOLN 800 MG/4 ML VIAL.NEB NEB SCH ×2 (07:51→19:45)
[2018-03-11] MEDS: AMLODIPINE BESYLATE 10 MG TABLET PEG SCH (09:58)
[2018-03-11] MEDS: INSULIN DETEMIR 100 UNIT/ML 3 ML PEN SUBCUT SCH (09:58)
[2018-03-11] MEDS: LACTOBACILLUS ACIDOPHILUS 250 MG TAB PEG SCH (09:58)
[2018-03-11] MEDS: ASPIRIN 81 MG TABLET, CHEWABLE PEG SCH (09:58)
[2018-03-11] MEDS: MEMANTINE HCL 10 MG TABLET PEG SCH (09:58)
[2018-03-11] MEDS: FUROSEMIDE 40 MG TABLET PEG SCH (09:59)
[2018-03-11] MEDS: ASCORBIC ACID 500 MG TABLET PEG SCH (09:59)
--- NOTE | 2018-03-11 11:08 | PDOC PROGRESS REPORT ---
Subjective Progress Note for:: 03/11/18 Subjective:: She has multiple comorbid conditions, patient seen by the bedside, alert, she has diarrhea Reason For Visit: VENTILATOR ASSOCIATED PNEUMONIA,CHRONIC Physical Exam Vital Signs: Temp Pulse Resp BP Pulse Ox 98.5 F 71 12 130/53 H 96 03/11/18 06:56 03/11/18 07:51 03/11/18 07:51 03/11/18 06:56 03/11/18 07:51 Intake & Output 03/10/18 03/11/18 03/12/18 06:59 06:59 06:59 Intake Total 2971 2181 Output Total 1999 575 Balance 971 1606 Weight 84.6 kg 85.5 kg General appearance: PRESENT: no acute distress Eye exam: PRESENT: PERRLA Respiratory exam: PRESENT: rhonchi Cardiovascular exam: PRESENT: +S1, +S2 GI/Abdominal exam: PRESENT: soft Neurological exam: PRESENT: alert Results Laboratory Results: 03/10/18 04:22 03/10/18 04:22 03/07/18 03/07/18 03/08/18 18:07 23:40 05:45 CK-MB (CK-2) 0.66 0.43 0.42 Troponin I 0.053 0.047 0.064 Impressions: Abdomen/Pelvis CT 03/07/18 08:52 IMPRESSION: Dense consolidation in the right lower lobe worrisome for pneumonia. Small parapneumonic effusion. Thick walled gallbladder with stones. Acute cholecystitis may be present Wall thickening and luminal narrowing distal sigmoid colon, worrisome for focal colitis. No adjacent abscess. Abdomen Ultrasound 03/07/18 12:49 IMPRESSION: Findings consistent with multiple gallstones. There is borderline thickening of the gallbladder wall. Other findings as noted above Head CT 03/08/18 00:00 IMPRESSION: 1. CHRONIC MICROVASCULAR ISCHEMIA. NO ACUTE IMAGING FINDINGS IN THE BRAIN. 2. RIGHT SPHENOID SINUS DISEASE. EVIDENCE OF ACUTE STROKE: NO. Chest X-Ray 03/08/18 06:00 IMPRESSION: Interval improvement in the opacification in the right hemithorax as noted above. Fairly extensive residual changes are identified. Left basilar densities as noted above. Assessment & Plan - Diagnosis (1) Acute hypoxemic respiratory failure Is this a current diagnosis for this admission?: Yes (2) Right lower lobe pneumonia Qualifiers: Pneumonia type: aspiration pneumonia Aspiration pneumonia type: unspecified Qualified Code(s): J69.0 - Pneumonitis due to inhalation of food and vomit Is this a current diagnosis for this admission?: Yes (3) Ventilator associated pneumonia Is this a current diagnosis for this admission?: Yes (4) Acute calculous cholecystitis Is this a current diagnosis for this admission?: Yes (5) Urinary tract infection associated with indwelling urethral catheter Qualifiers: Encounter type: initial encounter Qualified Code(s): T83.511A - Infection and inflammatory reaction due to indwelling urethral catheter, initial encounter ; N39.0 - Urinary tract infection, site not specified; N39.0 - Urinary tract infection, site not specified Is this a current diagnosis for this admission?: Yes (6) Metabolic encephalopathy Is this a current diagnosis for this admission?: Yes (7) Debilitated patient Is this a current diagnosis for this admission?: Yes (8) Primary hyperparathyroidism Is this a current diagnosis for this admission?: Yes (9) Urinary tract infection due to Enterococcus Is this a current diagnosis for this admission?: Yes - Plan Summary Plan Summary: Continue treatment
[2018-03-11 11:35] LABS: ABSOLUTE BASOPHILS # (AUTO) 0.1 10^3/uL (0.0-0.2); ABSOLUTE EOSINOPHILS # (AUTO) 1.6 10^3/uL (0.0-0.6); ABSOLUTE LYMPHOCYTES (AUTO) 2.7 10^3/uL (0.5-4.7); ABSOLUTE MONOCYTES (AUTO) 1.1 10^3/uL (0.1-1.4); ABSOLUTE NEUT (AUTO) 8.2 10^3/uL (1.7-8.2); EOSINOPHILS % (AUTO) 11.7 % (0-6); HEMATOCRIT 24.1 % (36.0-47.0); LYMPHOCYTES % (AUTO) 19.6 % (13-45); MEAN CORPUSCULAR HEMOGLOBIN 25.6 pg (27.0-33.4); MEAN CORPUSCULAR HGB CONC 31.6 g/dL (32.0-36.0); MEAN CORPUSCULAR VOLUME 81 fl (80-97); MONOCYTES % (AUTO) 7.9 % (3-13); PLATELET COUNT 400 10^3/uL (150-450); RED BLOOD COUNT 2.97 10^6/uL (3.72-5.28); SEGMENTED NEUTROPHILS % (AUTO) 59.8 % (42-78); TOTAL CELLS COUNTED % (AUTO) 100 %; WHITE BLOOD COUNT 13.8 10^3/uL (4.0-10.5)
[2018-03-11 11:37] LABS: HEMOGLOBIN 7.6 g/dL (12.0-15.5)
[2018-03-11] MEDS ORDERED: NORMAL SALINE 250 ML IV PRN ×2 (11:43)
[2018-03-11 12:03] LABS: ALANINE AMINOTRANSFERASE 42 U/L (9-52); ALBUMIN 3.1 g/dL (3.5-5.0); ALKALINE PHOSPHATASE 199 U/L (38-126); ANION GAP 11 (5-19); ASPARTATE AMINO TRANSFERASE 34 U/L (14-36); BILIRUBIN,DIRECT 0.4 mg/dL (0.0-0.4); BILIRUBIN,TOTAL 0.4 mg/dL (0.2-1.3); BLOOD UREA NITROGEN 40 mg/dL (7-20); CALCIUM 10.4 mg/dL (8.4-10.2); CARBON DIOXIDE 25 mmol/L (22-30); CHLORIDE 113 mmol/L (98-107); GLUCOSE 131 mg/dL (75-110); POTASSIUM 3.5 mmol/L (3.6-5.0); SODIUM 148.5 mmol/L (137-145); TOTAL PROTEIN 7.1 g/dL (6.3-8.2)
[2018-03-11] MEDS: VANCOMYCIN HCL 1,000 MG in DEXTROSE 5%-WATER 250 ML IV SCH (18:20)
[2018-03-11] MEDS: INSULIN REG, HUMAN 100 UNIT/ML 3 ML VIAL (PYX) SUBCUT PRN (18:56)
[2018-03-12] MEDS: IPRATROPIUM/ALBUTEROL 0.5-2.5 MG/3 ML AMPUL NEB SCH ×4 (02:42→19:49)
[2018-03-12] MEDS: PIPERACILLIN SODIUM/TAZOBACTAM 3.375 GM in NORMAL SALINE 100 ML IV SCH ×4 (02:56→21:54)
[2018-03-12] MEDS: HEPARIN SOD (PORCINE) 5,000 UNIT/ML 1 ML SYRINGE SUBCUT SCH ×3 (06:04→21:54)
[2018-03-12] MEDS: ACETYLCYSTEINE 20% SOLN 800 MG/4 ML VIAL.NEB NEB SCH ×2 (07:58→19:49)
[2018-03-12] MEDS: TOBRAMYCIN SULFATE/DEXAMETH OPH SUSP 2.5 ML OU SCH (10:40)
[2018-03-12] MEDS: ASCORBIC ACID 500 MG TABLET PEG SCH (10:41)
[2018-03-12] MEDS: MEMANTINE HCL 10 MG TABLET PEG SCH (10:41)
[2018-03-12] MEDS: LACTOBACILLUS ACIDOPHILUS 250 MG TAB PEG SCH (10:41)
[2018-03-12] MEDS: INSULIN DETEMIR 100 UNIT/ML 3 ML PEN SUBCUT SCH (10:41)
[2018-03-12] MEDS: FUROSEMIDE 40 MG TABLET PEG SCH (10:41)
[2018-03-12] MEDS: ASPIRIN 81 MG TABLET, CHEWABLE PEG SCH (10:41)
[2018-03-12] MEDS: AMLODIPINE BESYLATE 10 MG TABLET PEG SCH (10:42)
[2018-03-12 11:04] LABS: ABSOLUTE BASOPHILS # (AUTO) 0.2 10^3/uL (0.0-0.2); ABSOLUTE EOSINOPHILS # (AUTO) 2.2 10^3/uL (0.0-0.6); ABSOLUTE LYMPHOCYTES (AUTO) 2.8 10^3/uL (0.5-4.7); ABSOLUTE MONOCYTES (AUTO) 1.3 10^3/uL (0.1-1.4); ABSOLUTE NEUT (AUTO) 10.8 10^3/uL (1.7-8.2); BASOPHILS % (AUTO) 1.1 % (0-2); EOSINOPHILS % (AUTO) 12.5 % (0-6); HEMATOCRIT 24.1 % (36.0-47.0); HEMOGLOBIN 7.6 g/dL (12.0-15.5); LYMPHOCYTES % (AUTO) 16.3 % (13-45); MEAN CORPUSCULAR HEMOGLOBIN 25.4 pg (27.0-33.4); MEAN CORPUSCULAR HGB CONC 31.3 g/dL (32.0-36.0); MEAN CORPUSCULAR VOLUME 81 fl (80-97); MONOCYTES % (AUTO) 7.6 % (3-13); PLATELET COUNT 393 10^3/uL (150-450); RED BLOOD COUNT 2.98 10^6/uL (3.72-5.28); RED CELL DISTRIBUTION WIDTH 18.1 % (11.5-14.0); SEGMENTED NEUTROPHILS % (AUTO) 62.5 % (42-78); TOTAL CELLS COUNTED % (AUTO) 100 %; WHITE BLOOD COUNT 17.3 10^3/uL (4.0-10.5)
[2018-03-12 11:24] LABS: ALANINE AMINOTRANSFERASE 40 U/L (9-52); ALBUMIN 3.3 g/dL (3.5-5.0); ALKALINE PHOSPHATASE 198 U/L (38-126); ANION GAP 12 (5-19); ASPARTATE AMINO TRANSFERASE 29 U/L (14-36); BILIRUBIN,DIRECT 0.4 mg/dL (0.0-0.4); BILIRUBIN,TOTAL 0.5 mg/dL (0.2-1.3); BLOOD UREA NITROGEN 36 mg/dL (7-20); CALCIUM 10.3 mg/dL (8.4-10.2); CARBON DIOXIDE 24 mmol/L (22-30); CHLORIDE 111 mmol/L (98-107); GLUCOSE 163 mg/dL (75-110); POTASSIUM 3.8 mmol/L (3.6-5.0); SODIUM 147.2 mmol/L (137-145); TOTAL PROTEIN 7.4 g/dL (6.3-8.2)
[2018-03-12] MEDS: INSULIN REG, HUMAN 100 UNIT/ML 3 ML VIAL (PYX) SUBCUT PRN ×2 (12:00→18:30)
--- NOTE | 2018-03-12 12:26 | PDOC PROGRESS REPORT ---
Subjective Progress Note for:: 03/12/18 Subjective:: Patient is seen by the bedside, family refused blood transfusion, she has persistent anemia most likely related to sepsis. There is increased white blood cell count from today's lab work, questionable significance, ? worsening sepsis, patient clinically improving Reason For Visit: VENTILATOR ASSOCIATED PNEUMONIA,CHRONIC Physical Exam Vital Signs: Temp Pulse Resp BP Pulse Ox 98.6 F 85 20 151/83 H 95 03/12/18 06:54 03/12/18 08:00 03/12/18 08:00 03/12/18 06:54 03/12/18 11:36 Intake & Output 03/11/18 03/12/18 03/13/18 06:59 06:59 06:59 Intake Total 2181 2206 Output Total 575 975 Balance 1606 1231 Weight 85.5 kg 85.9 kg General appearance: PRESENT: other - Elderly female on mechanical ventilation Respiratory exam: PRESENT: rhonchi Cardiovascular exam: PRESENT: +S1, +S2 GI/Abdominal exam: PRESENT: soft Neurological exam: PRESENT: alert Results Laboratory Results: 03/12/18 10:12 03/12/18 10:12 03/11/18 03/12/18 03/12/18 12:34 10:12 10:12 WBC 17.3 H RBC 2.98 L Hgb 7.6 L Hct 24.1 L MCV 81 MCH 25.4 L MCHC 31.3 L RDW 18.1 H Plt Count 393 Seg Neutrophils % 62.5 Lymphocytes % 16.3 Monocytes % 7.6 Eosinophils % 12.5 H Basophils % 1.1 Absolute Neutrophils 10.8 H Absolute Lymphocytes 2.8 Absolute Monocytes 1.3 Absolute Eosinophils 2.2 H Absolute Basophils 0.2 Sodium 147.2 H Potassium 3.8 Chloride 111 H Carbon Dioxide 24 Anion Gap 12 BUN 36 H Creatinine 0.88 Est GFR ( Amer) > 60 Est GFR (Non-Af Amer) > 60 Glucose 163 H Calcium 10.3 H Total Bilirubin 0.5 AST 29 ALT 40 Alkaline Phosphatase 198 H Total Protein 7.4 Albumin 3.3 L Blood Type A POSITIVE Antibody Screen NEGATIVE 03/07/18 03/07/18 03/08/18 18:07 23:40 05:45 CK-MB (CK-2) 0.66 0.43 0.42 Troponin I 0.053 0.047 0.064 Impressions: Abdomen/Pelvis CT 03/07/18 08:52 IMPRESSION: Dense consolidation in the right lower lobe worrisome for pneumonia. Small parapneumonic effusion. Thick walled gallbladder with stones. Acute cholecystitis may be present Wall thickening and luminal narrowing distal sigmoid colon, worrisome for focal colitis. No adjacent abscess. Abdomen Ultrasound 03/07/18 12:49 IMPRESSION: Findings consistent with multiple gallstones. There is borderline thickening of the gallbladder wall. Other findings as noted above Head CT 03/08/18 00:00 IMPRESSION: 1. CHRONIC MICROVASCULAR ISCHEMIA. NO ACUTE IMAGING FINDINGS IN THE BRAIN. 2. RIGHT SPHENOID SINUS DISEASE. EVIDENCE OF ACUTE STROKE: NO. Chest X-Ray 03/08/18 06:00 IMPRESSION: Interval improvement in the opacification in the right hemithorax as noted above. Fairly extensive residual changes are identified. Left basilar densities as noted above. Assessment & Plan - Diagnosis (1) Acute hypoxemic respiratory failure Is this a current diagnosis for this admission?: Yes (2) Right lower lobe pneumonia Qualifiers: Pneumonia type: aspiration pneumonia Aspiration pneumonia type: unspecified Qualified Code(s): J69.0 - Pneumonitis due to inhalation of food and vomit Is this a current diagnosis for this admission?: Yes (3) Ventilator associated pneumonia Is this a current diagnosis for this admission?: Yes (4) Acute calculous cholecystitis Is this a current diagnosis for this admission?: Yes (5) Urinary tract infection associated with indwelling urethral catheter Qualifiers: Encounter type: initial encounter Qualified Code(s): T83.511A - Infection and inflammatory reaction due to indwelling urethral catheter, initial encounter ; N39.0 - Urinary tract infection, site not specified; N39.0 - Urinary tract infection, site not specified Is this a current diagnosis for this admission?: Yes (6) Metabolic encephalopathy Is this a current diagnosis for this admission?: Yes (7) Debilitated patient Is this a current diagnosis for this admission?: Yes (8) Primary hyperparathyroidism Is this a current diagnosis for this admission?: Yes (9) Urinary tract infection due to Enterococcus Is this a current diagnosis for this admission?: Yes - Plan Summary Plan Summary: Continue mechanical ventilation, IV antibiotic, tube feeding and other supportive care
[2018-03-12] MEDS: VANCOMYCIN HCL 1,000 MG in DEXTROSE 5%-WATER 250 ML IV SCH (18:07)
[2018-03-13] MEDS: IPRATROPIUM/ALBUTEROL 0.5-2.5 MG/3 ML AMPUL NEB SCH ×4 (01:42→19:20)
[2018-03-13] MEDS: PIPERACILLIN SODIUM/TAZOBACTAM 3.375 GM in NORMAL SALINE 100 ML IV SCH ×4 (02:32→21:36)
[2018-03-13] MEDS: HEPARIN SOD (PORCINE) 5,000 UNIT/ML 1 ML SYRINGE SUBCUT SCH ×3 (05:45→21:36)
[2018-03-13 06:08] LABS: ABSOLUTE BASOPHILS # (AUTO) 0.2 10^3/uL (0.0-0.2); ABSOLUTE EOSINOPHILS # (AUTO) 2.2 10^3/uL (0.0-0.6); ABSOLUTE LYMPHOCYTES (AUTO) 3.8 10^3/uL (0.5-4.7); ABSOLUTE MONOCYTES (AUTO) 1.5 10^3/uL (0.1-1.4); ABSOLUTE NEUT (AUTO) 8.9 10^3/uL (1.7-8.2); BASOPHILS % (AUTO) 1.1 % (0-2); EOSINOPHILS % (AUTO) 13.1 % (0-6); HEMATOCRIT 25.4 % (36.0-47.0); LYMPHOCYTES % (AUTO) 23.1 % (13-45); MEAN CORPUSCULAR HEMOGLOBIN 25.5 pg (27.0-33.4); MEAN CORPUSCULAR HGB CONC 31.3 g/dL (32.0-36.0); MEAN CORPUSCULAR VOLUME 81 fl (80-97); PLATELET COUNT 402 10^3/uL (150-450); RED BLOOD COUNT 3.12 10^6/uL (3.72-5.28); RED CELL DISTRIBUTION WIDTH 18.4 % (11.5-14.0); SEGMENTED NEUTROPHILS % (AUTO) 53.7 % (42-78); TOTAL CELLS COUNTED % (AUTO) 100 %; WHITE BLOOD COUNT 16.6 10^3/uL (4.0-10.5)
[2018-03-13 06:24] LABS: HEMOGLOBIN 7.9 g/dL (12.0-15.5)
[2018-03-13 06:27] LABS: ALANINE AMINOTRANSFERASE 35 U/L (9-52); ALBUMIN 3.5 g/dL (3.5-5.0); ALKALINE PHOSPHATASE 214 U/L (38-126); ANION GAP 15 (5-19); ASPARTATE AMINO TRANSFERASE 28 U/L (14-36); BILIRUBIN,DIRECT 0.3 mg/dL (0.0-0.4); BILIRUBIN,TOTAL 0.3 mg/dL (0.2-1.3); BLOOD UREA NITROGEN 33 mg/dL (7-20); CALCIUM 9.9 mg/dL (8.4-10.2); CARBON DIOXIDE 24 mmol/L (22-30); CHLORIDE 110 mmol/L (98-107); GLUCOSE 152 mg/dL (75-110); POTASSIUM 3.7 mmol/L (3.6-5.0); SODIUM 148.5 mmol/L (137-145); TOTAL PROTEIN 7.7 g/dL (6.3-8.2)
[2018-03-13] MEDS: ACETYLCYSTEINE 20% SOLN 800 MG/4 ML VIAL.NEB NEB SCH ×2 (08:15→19:20)
[2018-03-13] MEDS: LACTOBACILLUS ACIDOPHILUS 250 MG TAB PEG SCH (10:42)
[2018-03-13] MEDS: FUROSEMIDE 40 MG TABLET PEG SCH (10:42)
[2018-03-13] MEDS: AMLODIPINE BESYLATE 10 MG TABLET PEG SCH (10:42)
[2018-03-13] MEDS: ASPIRIN 81 MG TABLET, CHEWABLE PEG SCH (10:42)
[2018-03-13] MEDS: ASCORBIC ACID 500 MG TABLET PEG SCH (10:43)
[2018-03-13] MEDS: MEMANTINE HCL 10 MG TABLET PEG SCH (10:43)
[2018-03-13] MEDS: TOBRAMYCIN SULFATE/DEXAMETH OPH SUSP 2.5 ML OU SCH (10:45)
[2018-03-13] MEDS: INSULIN DETEMIR 100 UNIT/ML 3 ML PEN SUBCUT SCH (10:46)
--- NOTE | 2018-03-13 11:56 | PDOC PROGRESS REPORT ---
Subjective Progress Note for:: 03/13/18 Subjective:: Awake and alert remains very much dependent on noninvasive positive pressure ventilation Reason For Visit: VENTILATOR ASSOCIATED PNEUMONIA,CHRONIC Physical Exam Vital Signs: Temp Pulse Resp BP Pulse Ox 99.2 F 92 14 151/73 H 96 03/13/18 04:59 03/13/18 08:15 03/13/18 08:15 03/13/18 04:59 03/13/18 08:15 Intake & Output 03/12/18 03/13/18 03/14/18 06:59 06:59 06:59 Intake Total 2206 3085 Output Total 975 1175 Balance 1231 1910 Weight 85.9 kg 88.3 kg General appearance: PRESENT: cooperative, disheveled, mild distress, obese Head exam: PRESENT: atraumatic, normocephalic Eye exam: PRESENT: conjunctiva pale, EOMI. ABSENT: nystagmus, periorbital swelling, scleral icterus Mouth exam: PRESENT: dry mucosa, neck supple, tongue midline Neck exam: ABSENT: carotid bruit, JVD, lymphadenopathy, thyromegaly, tracheal deviation, tracheostomy Respiratory exam: PRESENT: decreased breath sounds, prolonged expiratory phas, rales, rhonchi, wheezes. ABSENT: retraction, stridor, tachypnea Cardiovascular exam: PRESENT: RRR, +S1, +S2 Pulses: PRESENT: normal radial pulses GI/Abdominal exam: PRESENT: normal bowel sounds, soft Extremities exam: ABSENT: calf tenderness, clubbing, joint swelling Musculoskeletal exam: ABSENT: ambulatory, deformity, dislocation Neurological exam: PRESENT: alert, awake Psychiatric exam: PRESENT: anxious Skin exam: PRESENT: dry, warm Results Laboratory Results: 03/13/18 05:01 03/13/18 05:01 03/13/18 03/13/18 05:01 05:01 WBC 16.6 H RBC 3.12 L Hgb 7.9 L Hct 25.4 L MCV 81 MCH 25.5 L MCHC 31.3 L RDW 18.4 H Plt Count 402 Seg Neutrophils % 53.7 Lymphocytes % 23.1 Monocytes % 9.0 Eosinophils % 13.1 H Basophils % 1.1 Absolute Neutrophils 8.9 H Absolute Lymphocytes 3.8 Absolute Monocytes 1.5 H Absolute Eosinophils 2.2 H Absolute Basophils 0.2 Sodium 148.5 H Potassium 3.7 Chloride 110 H Carbon Dioxide 24 Anion Gap 15 BUN 33 H Creatinine 0.88 Est GFR ( Amer) > 60 Est GFR (Non-Af Amer) > 60 Glucose 152 H Calcium 9.9 Total Bilirubin 0.3 AST 28 ALT 35 Alkaline Phosphatase 214 H Total Protein 7.7 Albumin 3.5 03/07/18 03/07/18 03/08/18 18:07 23:40 05:45 CK-MB (CK-2) 0.66 0.43 0.42 Troponin I 0.053 0.047 0.064 Impressions: Abdomen/Pelvis CT 03/07/18 08:52 IMPRESSION: Dense consolidation in the right lower lobe worrisome for pneumonia. Small parapneumonic effusion. Thick walled gallbladder with stones. Acute cholecystitis may be present Wall thickening and luminal narrowing distal sigmoid colon, worrisome for focal colitis. No adjacent abscess. Abdomen Ultrasound 03/07/18 12:49 IMPRESSION: Findings consistent with multiple gallstones. There is borderline thickening of the gallbladder wall. Other findings as noted above Head CT 03/08/18 00:00 IMPRESSION: 1. CHRONIC MICROVASCULAR ISCHEMIA. NO ACUTE IMAGING FINDINGS IN THE BRAIN. 2. RIGHT SPHENOID SINUS DISEASE. EVIDENCE OF ACUTE STROKE: NO. Chest X-Ray 03/08/18 06:00 IMPRESSION: Interval improvement in the opacification in the right hemithorax as noted above. Fairly extensive residual changes are identified. Left basilar densities as noted above. Assessment & Plan - Diagnosis (1) Acute hypoxemic respiratory failure Is this a current diagnosis for this admission?: Yes Plan: Unchanged (2) Metabolic encephalopathy Is this a current diagnosis for this admission?: Yes (3) Right lower lobe pneumonia Qualifiers: Pneumonia type: aspiration pneumonia Aspiration pneumonia type: unspecified Qualified Code(s): J69.0 - Pneumonitis due to inhalation of food and vomit Is this a current diagnosis for this admission?: Yes Plan: Current chest x-ray WBC remains elevated (4) Sepsis Qualifiers: Sepsis type: sepsis due to unspecified organism Qualified Code(s): A41.9 - Sepsis, unspecified organism Is this a current diagnosis for this admission?: Yes (5) Eosinophilia Is this a current diagnosis for this admission?: Yes
[2018-03-13] MEDS: INSULIN REG, HUMAN 100 UNIT/ML 3 ML VIAL (PYX) SUBCUT PRN ×2 (13:04→18:14)
[2018-03-13 13:25] LABS: ARTERIAL BLOOD BASE EXCESS 1.1 mmol/L; ARTERIAL BLOOD HCO3 26.1 mmol/L (20-26); ARTERIAL BLOOD O2 SATURATION 96.7 % (94-98); ARTERIAL BLOOD PCO2 43.2 mmHg (35-45); ARTERIAL BLOOD PO2 88.8 mmHg (80-100); ARTERIAL BLOOD TOTAL CO2 27.4 mmol/L (21-25)
[2018-03-13 13:26] LABS: ARTERIAL BLOOD FIO2 35%
--- NOTE | 2018-03-13 13:50 | RADIOLOGY REPORT (SQ) ---
EXAM DESCRIPTION: CHEST SINGLE VIEW COMPLETED DATE/TIME: 03/13/2018 12:29 pm REASON FOR STUDY: resp failure R pna COMPARISON: 11/13/2017, 12/23/2017, 03/07/2018, 03/08/2018 EXAM PARAMETERS: NUMBER OF VIEWS: One view. TECHNIQUE: Single frontal radiographic view of the chest acquired. RADIATION DOSE: NA LIMITATIONS: None. FINDINGS: LUNGS AND PLEURA: Moderate size right pleural effusion, similar compared to 03/08/2018, 02/24, 12/23/2017. Small left pleural effusion, stable compared to 03/08/2018 and 03/07/2018. There is bibasilar airspace disease right greater than left worrisome for pneumonia. MEDIASTINUM AND HILAR STRUCTURES: No masses. Contour normal. HEART AND VASCULAR STRUCTURES: Stable cardiomegaly BONES: No acute findings. HARDWARE: Stable tracheostomy tube with the tip in the upper trachea OTHER: No other significant finding. IMPRESSION: Moderate right and small left pleural effusions with bibasilar airspace disease, simil ar compared to 03/08/2018 and 03/07/2018. TECHNICAL DOCUMENTATION: JOB ID: [id number] [employer]- All Rights Reserved Reading location - IP/workstation name: [email or web address]
[2018-03-13] MEDS: ONDANSETRON HCL 8 MG TABLET PEG PRN (14:47)
[2018-03-13] MEDS ORDERED: ACETAMINOPHEN 325 MG TABLET PO PRN (15:02)
[2018-03-13] MEDS: VANCOMYCIN HCL 1,000 MG in DEXTROSE 5%-WATER 250 ML IV SCH (18:13)
--- NOTE | 2018-03-13 19:30 | PDOC PROGRESS REPORT ---
Subjective Progress Note for:: 03/13/18 Subjective:: Patient is seen by the bedside, chest x-ray showed a right pleural effusion of moderate severity, she is alert, patient daughter refused blood transfusion Reason For Visit: VENTILATOR ASSOCIATED PNEUMONIA,CHRONIC Physical Exam Vital Signs: Temp Pulse Resp BP Pulse Ox 98.8 F 85 20 133/75 H 97 03/13/18 16:24 03/13/18 19:20 03/13/18 19:20 03/13/18 16:24 03/13/18 19:20 Intake & Output 03/12/18 03/13/18 03/14/18 06:59 06:59 06:59 Intake Total 2206 3085 1177 Output Total 975 1175 1075 Balance 1231 1910 102 Weight 85.9 kg 88.3 kg General appearance: PRESENT: mild distress Eye exam: PRESENT: PERRLA Respiratory exam: PRESENT: decreased breath sounds Cardiovascular exam: PRESENT: +S1, +S2 GI/Abdominal exam: PRESENT: soft Neurological exam: PRESENT: alert Results Laboratory Results: 03/13/18 05:01 03/13/18 05:01 03/13/18 03/13/18 03/13/18 05:01 05:01 12:55 WBC 16.6 H RBC 3.12 L Hgb 7.9 L Hct 25.4 L MCV 81 MCH 25.5 L MCHC 31.3 L RDW 18.4 H Plt Count 402 Seg Neutrophils % 53.7 Lymphocytes % 23.1 Monocytes % 9.0 Eosinophils % 13.1 H Basophils % 1.1 Absolute Neutrophils 8.9 H Absolute Lymphocytes 3.8 Absolute Monocytes 1.5 H Absolute Eosinophils 2.2 H Absolute Basophils 0.2 Carbonic Acid 1.30 HCO3/H2CO3 Ratio 20:1 ABG pH 7.40 ABG pCO2 43.2 ABG pO2 88.8 ABG HCO3 26.1 H ABG O2 Saturation 96.7 ABG Base Excess 1.1 FiO2 35% Sodium 148.5 H Potassium 3.7 Chloride 110 H Carbon Dioxide 24 Anion Gap 15 BUN 33 H Creatinine 0.88 Est GFR ( Amer) > 60 Est GFR (Non-Af Amer) > 60 Glucose 152 H Calcium 9.9 Total Bilirubin 0.3 AST 28 ALT 35 Alkaline Phosphatase 214 H Total Protein 7.7 Albumin 3.5 03/07/18 03/07/18 03/08/18 18:07 23:40 05:45 CK-MB (CK-2) 0.66 0.43 0.42 Troponin I 0.053 0.047 0.064 Impressions: Abdomen/Pelvis CT 03/07/18 08:52 IMPRESSION: Dense consolidation in the right lower lobe worrisome for pneumonia. Small parapneumonic effusion. Thick walled gallbladder with stones. Acute cholecystitis may be present Wall thickening and luminal narrowing distal sigmoid colon, worrisome for focal colitis. No adjacent abscess. Abdomen Ultrasound 03/07/18 12:49 IMPRESSION: Findings consistent with multiple gallstones. There is borderline thickening of the gallbladder wall. Other findings as noted above Head CT 03/08/18 00:00 IMPRESSION: 1. CHRONIC MICROVASCULAR ISCHEMIA. NO ACUTE IMAGING FINDINGS IN THE BRAIN. 2. RIGHT SPHENOID SINUS DISEASE. EVIDENCE OF ACUTE STROKE: NO. Chest X-Ray 03/13/18 00:00 IMPRESSION: Moderate right and small left pleural effusions with bibasilar airspace disease, similar compared to 03/08/2018 and 03/07/2018. Assessment & Plan - Diagnosis (1) Acute hypoxemic respiratory failure Is this a current diagnosis for this admission?: Yes (2) Right lower lobe pneumonia Qualifiers: Pneumonia type: aspiration pneumonia Aspiration pneumonia type: unspecified Qualified Code(s): J69.0 - Pneumonitis due to inhalation of food and vomit Is this a current diagnosis for this admission?: Yes (3) Ventilator associated pneumonia Is this a current diagnosis for this admission?: Yes (4) Acute calculous cholecystitis Is this a current diagnosis for this admission?: Yes (5) Urinary tract infection associated with indwelling urethral catheter Qualifiers: Encounter type: initial encounter Qualified Code(s): T83.511A - Infection and inflammatory reaction due to indwelling urethral catheter, initial encounter ; N39.0 - Urinary tract infection, site not specified; N39.0 - Urinary tract infection, site not specified Is this a current diagnosis for this admission?: Yes (6) Metabolic encephalopathy Is this a current diagnosis for this admission?: Yes (7) Debilitated patient Is this a current diagnosis for this admission?: Yes (8) Primary hyperparathyroidism Is this a current diagnosis for this admission?: Yes (9) Urinary tract infection due to Enterococcus Is this a current diagnosis for this admission?: Yes - Plan Summary Plan Summary: order thoracentesis
[2018-03-13 20:20] LABS: TOTAL PROTEIN 6.9 g/dL (6.3-8.2)
[2018-03-13 20:28] LABS: INTERNATIONAL RATION (INR) 1.25; PROTHROMBIN TIME 16.3 SEC (11.4-15.4)
[2018-03-13 20:29] LABS: PARTIAL THROMBOPLASTIN TIME 32.2 SEC (23.5-35.8)
--- NOTE | 2018-03-13 22:57 | Palliative Consultation Report ---
Consultation From:: GENIA WHEELER Consult Reason: palliaitve care - HPI HPI: Palliative Care Consult Visit 3:25- 4:05 PM 03/13/18 Appreciate palliative care consult request with this 82 year old woman who is admitted 03/08 for pneumonia, respiratory failure, sepsis, metabolic encephalopathy and other comorbid conditions. Mrs. Matt lives at home with her daughter caring for her for the past 12 years. She is ventilator dependent and uses Trilogy vent at home. She has been in LTAC facility several times before but per discharge planning, she will most likely not be able to transfer to LTAC after this admission. I visited with patient earlier this afternoon and she was able to talk some in spite of her trach. She denied pain except in her mid abdomen across both sides, which she agreed was mild cramping. She was not having respiratory distress at time of visit and was calm and fairly comfortable. I returned to hospital a couple of hours later and was able to talk at length to her daughter, Katey, who cares for her at home. We discussed her s history, the problems she has with home health caring for carlitos and the concerns she has for her mothers care. We did discuss patients code situation. Since she is already trached and on vent, the question is now for DNR to avaid CPR. Katey told me her brother wants patient to be DNR as CPR will not be successful and will cause additional pain to patient. I also discussed how having full code status also limits comfort measures that can be used if patient has pain or anxiety. I asked Katey what her objection to DNR status really is since she seems aware that CPR will not be successful given her mothers many comorbid conditions. She told me the many things she has been told by home health nurses and EMS workers. She said they have told her that if patient was DNR they would not try to remove mucus plugs, would suction less, would not give antibiotics, would only "load and go" without treatment if EMS called. I explained that all of those statements should be untrue, but she is fearful that they would be true when at home. We discussed DNR in the hospital just to prevent patient from having that last pain at end of life and she would know they are caring for her otherwise. Daughter said she would think about this. I told her since she was at bedside most of the time, she could ask for DNR if patient arrested or showed signs of being near arrest. However, she said she is not always here and showed some concern about her mother having to endure CPR. I told her I certainly understand her fears of patient receiving less than adequate care if these people have told her these things. However, in the hospital it would not be like this. She is going to think about this. As I am sure all providers have done I discussed how CPR works in only a small percentage of patients who are debilitated with chronic illness and she said she understands that and would not be surprised if it did not work for her mother. During this conversation, patient was awake and appeared to be listening. Onset: Just prior to arrival Onset/Duration: Gradual Quality of Pain: Cramping Severity: Mild Associated Symptoms: Shortness of breath, Weakness Past Medical History(Consults) - General Information Source: Relative, [facility] Records Home Medications: Amlodipine Besylate [Norvasc 10 mg Tablet] 10 mg PEG DAILY 12/18/17 Ascorbic Acid [Vitamin C 500 mg Tablet] 500 mg PEG DAILY 12/18/17 Aspirin [Adult Low Dose Aspirin EC] 81 mg PEG DAILY 12/18/17 Insulin Aspart [Novolog Flexpen] 0 units SQ .PERSLIDINGSCALE MDD ACCUCHECKS Q6 12/18/17 Insulin Detemir [Levemir Flextouch] 10 units SQ DAILY 12/18/17 Memantine HCl [Namenda 10 mg Tablet] 10 mg PEG DAILY 12/18/17 Multivitamin [Animal Shapes] 1 tab PEG DAILY 12/18/17 Budesonide [Pulmicort Neb 0.5 mg/2 ml Ampul] 0.5 mg NEB RTQ12 03/07/18 Furosemide [Lasix 40 mg Tablet] 40 mg PEG DAILY 03/07/18 Ipratropium/Albuterol Sulfate [Duoneb 3 ml Ampul] 3 ml NEB RTQ6 03/07/18 Lactobacillus Acidophilus [Acidophilus Lactobacilli] 1 tab PEG DAILY 03/07/18 Ondansetron HCl [Zofran 8 mg Tablet] 8 mg PEG TIDP PRN 03/07/18 Simethicone [Little Remedies Gas Relief] 80 mg PEG ASDIR PRN 03/07/18 Tobramycin Sulfate/Dexameth [Tobradex Oph Drops 2.5 Ml Bottle] 1 drop OU Q6 09/12 Allergies/Adverse Reactions: alprazolam [From Xanax] Allergy (Verified 03/07/18 09:34) iodine [Iodine] Allergy (Verified 03/07/18 09:34) quetiapine fumarate [From Seroquel] Allergy (Verified 03/07/18 09:34) - Social History Lives with: Family Family History: Reviewed & Not Pertinent Parental Family History Reviewed: No Children Family History Reviewed: No Sibling(s) Family History Reviewed.: No Smoking Status: Never Smoker Frequency of Alcohol Use: None Hx Recreational Drug Use: No Drugs: None Hx Prescription Drug Abuse: No - Past Medical History Cardiac Medical History: Reports: Hx Congestive Heart Failure, Hx Hypercholesterolemia, Hx Hypertension, Hx Peripheral Vascular Disease, Hx Pulmonary Embolism Pulmonary Medical History: Reports: Hx COPD, Hx Pneumonia - aspiration Endocrine Medical History: Reports: Hx Diabetes Mellitus Type 1, Hx Diabetes Mellitus Type 2 Renal/ Medical History: Denies: Hx Peritoneal Dialysis Psychiatric Medical History: Reports: Hx Dementia Denies: Hx Depression Infectious Medical History: Reports: Hx C-Diff Hematology Note: History 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 Review of systems Constitutional: Malaise, Weakness Cardiovascular: Chest pain, Dyspnea Respiratory: Short of breath Gastrointestinal: Abdominal pain Hematologic/Lymphatic: Blood clots Neurological/Psychological: Anxiety Ojective:Exam Vital Signs: Temp Pulse Resp BP Pulse Ox 98.4 F 84 12 144/58 H 96 03/13/18 20:08 03/13/18 20:08 03/13/18 20:08 03/13/18 20:08 03/13/18 20:08 Intake & Output 03/12/18 03/13/18 03/14/18 06:59 06:59 06:59 Intake Total 2206 3085 1177 Output Total 975 1175 1075 Balance 1231 1910 102 Weight 85.9 kg 88.3 kg - General General Appearance: Alert, Anxious In distress: Mild - Abd cramping, very mild dyspnea - Neck Neck Note: Tracheostomy - Respiratory Breath sounds: Rhonchi, Wheezing - Cardiovascular Rhythm: Regular - Abdominal Distension: Distended, Other - slight fullness in transverse colon area bilaterally Bowel Sounds: Normal Tenderness: Nontender - Neurological Cognition: Other - difficult to fully assess Orientation: Alert, Oriented to person Cranial nerves: Normal - Psychological Associated symptoms: Anxious Objective-Diagnostic Laboratory: 03/13/18 05:01 03/13/18 05:01 03/13/18 03/13/18 03/13/18 05:01 05:01 12:55 WBC 16.6 H RBC 3.12 L Hgb 7.9 L Hct 25.4 L MCV 81 MCH 25.5 L MCHC 31.3 L RDW 18.4 H Plt Count 402 Seg Neutrophils % 53.7 Lymphocytes % 23.1 Monocytes % 9.0 Eosinophils % 13.1 H Basophils % 1.1 Absolute Neutrophils 8.9 H Absolute Lymphocytes 3.8 Absolute Monocytes 1.5 H Absolute Eosinophils 2.2 H Absolute Basophils 0.2 Carbonic Acid 1.30 HCO3/H2CO3 Ratio 20:1 ABG pH 7.40 ABG pCO2 43.2 ABG pO2 88.8 ABG HCO3 26.1 H ABG O2 Saturation 96.7 ABG Base Excess 1.1 FiO2 35% Sodium 148.5 H Potassium 3.7 Chloride 110 H Carbon Dioxide 24 Anion Gap 15 BUN 33 H Creatinine 0.88 Est GFR ( Amer) > 60 Est GFR (Non-Af Amer) > 60 Glucose 152 H Calcium 9.9 Total Bilirubin 0.3 AST 28 ALT 35 Alkaline Phosphatase 214 H Total Protein 7.7 Albumin 3.5 03/13/18 19:55 WBC RBC Hgb Hct MCV MCH MCHC RDW Plt Count Seg Neutrophils % Lymphocytes % Monocytes % Eosinophils % Basophils % Absolute Neutrophils Absolute Lymphocytes Absolute Monocytes Absolute Eosinophils Absolute Basophils Carbonic Acid HCO3/H2CO3 Ratio ABG pH ABG pCO2 ABG pO2 ABG HCO3 ABG O2 Saturation ABG Base Excess FiO2 Sodium Potassium Chloride Carbon Dioxide Anion Gap BUN Creatinine Est GFR ( Amer) Est GFR (Non-Af Amer) Glucose Calcium Total Bilirubin AST ALT Alkaline Phosphatase Total Protein 6.9 Albumin 03/07/18 03/07/18 03/08/18 18:07 23:40 05:45 CK-MB (CK-2) 0.66 0.43 0.42 Troponin I 0.053 0.047 0.064 Plan and Recommendation Plan and Recommendation: Will continue to follow to support daughter and any symptom control that may be requested.. I offered home palliative care visits to supplement home health care. Daughter is hoping patient will go to LTAC after hospitalizaiton, but there are no goals for the LTAC to meet at this time as it is obvious patient cannot be weaned . Consulted with nurse and farm planner. Will talk with daughter again about code status. She has spoken with Dr. Higgins and said she appreciates his honesty. - Time Spent with Patient Time spent with patient: 40 to 60 Minutes Time: 50 min Greater then 50% spent on Counseling & Coordination of Care: 30 min
[2018-03-14] MEDS: IPRATROPIUM/ALBUTEROL 0.5-2.5 MG/3 ML AMPUL NEB SCH ×4 (01:57→19:47)
[2018-03-14] MEDS: PIPERACILLIN SODIUM/TAZOBACTAM 3.375 GM in NORMAL SALINE 100 ML IV SCH ×4 (02:49→21:52)
[2018-03-14] MEDS: HEPARIN SOD (PORCINE) 5,000 UNIT/ML 1 ML SYRINGE SUBCUT SCH ×3 (05:37→21:52)
[2018-03-14] MEDS: ACETYLCYSTEINE 20% SOLN 800 MG/4 ML VIAL.NEB NEB SCH ×2 (07:48→19:47)
[2018-03-14] MEDS: INSULIN REG, HUMAN 100 UNIT/ML 3 ML VIAL (PYX) SUBCUT PRN ×3 (08:20→19:06)
[2018-03-14] MEDS: LACTOBACILLUS ACIDOPHILUS 250 MG TAB PEG SCH (09:11)
[2018-03-14] MEDS: INSULIN DETEMIR 100 UNIT/ML 3 ML PEN SUBCUT SCH (09:12)
[2018-03-14] MEDS: FUROSEMIDE 40 MG TABLET PEG SCH ×2 (09:12→20:43)
[2018-03-14] MEDS: AMLODIPINE BESYLATE 10 MG TABLET PEG SCH (09:12)
[2018-03-14] MEDS: ASCORBIC ACID 500 MG TABLET PEG SCH (09:12)
[2018-03-14] MEDS: MEMANTINE HCL 10 MG TABLET PEG SCH (09:12)
[2018-03-14] MEDS: TOBRAMYCIN SULFATE/DEXAMETH OPH SUSP 2.5 ML OU SCH (09:12)
[2018-03-14] MEDS: ASPIRIN 81 MG TABLET, CHEWABLE PEG SCH (09:13)
[2018-03-14 18:18] LABS: VANCOMYCIN,TROUGH 27.8 ug/mL (5.0-20.0)
[2018-03-14 18:38] LABS: ABSOLUTE BASOPHILS # (AUTO) 0.2 10^3/uL (0.0-0.2); ABSOLUTE EOSINOPHILS # (AUTO) 1.4 10^3/uL (0.0-0.6); ABSOLUTE LYMPHOCYTES (AUTO) 2.6 10^3/uL (0.5-4.7); ABSOLUTE MONOCYTES (AUTO) 1.1 10^3/uL (0.1-1.4); ABSOLUTE NEUT (AUTO) 7.5 10^3/uL (1.7-8.2); BASOPHILS % (AUTO) 1.2 % (0-2); HEMATOCRIT 24.3 % (36.0-47.0); LYMPHOCYTES % (AUTO) 20.4 % (13-45); MEAN CORPUSCULAR HEMOGLOBIN 25.4 pg (27.0-33.4); MEAN CORPUSCULAR VOLUME 82 fl (80-97); MONOCYTES % (AUTO) 8.6 % (3-13); PLATELET COUNT 362 10^3/uL (150-450); RED BLOOD COUNT 2.96 10^6/uL (3.72-5.28); RED CELL DISTRIBUTION WIDTH 17.9 % (11.5-14.0); SEGMENTED NEUTROPHILS % (AUTO) 58.8 % (42-78); TOTAL CELLS COUNTED % (AUTO) 100 %; WHITE BLOOD COUNT 12.8 10^3/uL (4.0-10.5)
[2018-03-14 18:42] LABS: HEMOGLOBIN 7.5 g/dL (12.0-15.5)
[2018-03-14] MEDS: VANCOMYCIN HCL 1,000 MG in DEXTROSE 5%-WATER 250 ML IV SCH (18:43)
[2018-03-14 18:48] LABS: ALANINE AMINOTRANSFERASE 33 U/L (9-52); ALBUMIN 3.4 g/dL (3.5-5.0); ALKALINE PHOSPHATASE 179 U/L (38-126); ANION GAP 13 (5-19); ASPARTATE AMINO TRANSFERASE 19 U/L (14-36); BILIRUBIN,DIRECT 0.3 mg/dL (0.0-0.4); BILIRUBIN,TOTAL 0.3 mg/dL (0.2-1.3); BLOOD UREA NITROGEN 31 mg/dL (7-20); CALCIUM 9.1 mg/dL (8.4-10.2); CARBON DIOXIDE 25 mmol/L (22-30); CHLORIDE 108 mmol/L (98-107); GLUCOSE 163 mg/dL (75-110); SODIUM 145.6 mmol/L (137-145)
--- NOTE | 2018-03-14 21:44 | PDOC PROGRESS REPORT ---
Subjective Progress Note for:: 03/14/18 Subjective:: Family refused thoracentesis and also blood transfusion Reason For Visit: VENTILATOR ASSOCIATED PNEUMONIA,CHRONIC Physical Exam Vital Signs: Temp Pulse Resp BP Pulse Ox 98.7 F 77 13 139/62 H 96 03/14/18 20:21 03/14/18 20:21 03/14/18 20:21 03/14/18 20:21 03/14/18 20:21 Intake & Output 03/13/18 03/14/18 03/15/18 06:59 06:59 06:59 Intake Total 3085 2251 1343 Output Total 1175 1600 650 Balance 1910 651 693 Weight 88.3 kg 88.9 kg General appearance: PRESENT: no acute distress Eye exam: PRESENT: PERRLA Respiratory exam: PRESENT: decreased breath sounds Cardiovascular exam: PRESENT: +S1, +S2 GI/Abdominal exam: PRESENT: soft Neurological exam: PRESENT: alert Results Laboratory Results: 03/14/18 18:24 03/14/18 18:24 03/14/18 03/14/18 03/14/18 17:45 18:24 18:24 WBC 12.8 H RBC 2.96 L Hgb 7.5 L Hct 24.3 L MCV 82 MCH 25.4 L MCHC 31.0 L RDW 17.9 H Plt Count 362 Seg Neutrophils % 58.8 Lymphocytes % 20.4 Monocytes % 8.6 Eosinophils % 11.0 H Basophils % 1.2 Absolute Neutrophils 7.5 Absolute Lymphocytes 2.6 Absolute Monocytes 1.1 Absolute Eosinophils 1.4 H Absolute Basophils 0.2 Sodium 145.6 H Potassium 4.0 Chloride 108 H Carbon Dioxide 25 Anion Gap 13 BUN 31 H Creatinine 0.88 0.84 Est GFR ( Amer) > 60 > 60 Est GFR (Non-Af Amer) > 60 > 60 Glucose 163 H Calcium 9.1 Total Bilirubin 0.3 AST 19 ALT 33 Alkaline Phosphatase 179 H Total Protein 7.0 Albumin 3.4 L 03/07/18 03/07/18 03/08/18 18:07 23:40 05:45 CK-MB (CK-2) 0.66 0.43 0.42 Troponin I 0.053 0.047 0.064 Impressions: Abdomen/Pelvis CT 03/07/18 08:52 IMPRESSION: Dense consolidation in the right lower lobe worrisome for pneumonia. Small parapneumonic effusion. Thick walled gallbladder with stones. Acute cholecystitis may be present Wall thickening and luminal narrowing distal sigmoid colon, worrisome for focal colitis. No adjacent abscess. Abdomen Ultrasound 03/07/18 12:49 IMPRESSION: Findings consistent with multiple gallstones. There is borderline thickening of the gallbladder wall. Other findings as noted above Head CT 03/08/18 00:00 IMPRESSION: 1. CHRONIC MICROVASCULAR ISCHEMIA. NO ACUTE IMAGING FINDINGS IN THE BRAIN. 2. RIGHT SPHENOID SINUS DISEASE. EVIDENCE OF ACUTE STROKE: NO. Chest X-Ray 03/13/18 00:00 IMPRESSION: Moderate right and small left pleural effusions with bibasilar airspace disease, similar compared to 03/08/2018 and 03/07/2018. Assessment & Plan - Diagnosis (1) Acute hypoxemic respiratory failure Is this a current diagnosis for this admission?: Yes (2) Right lower lobe pneumonia Qualifiers: Pneumonia type: aspiration pneumonia Aspiration pneumonia type: unspecified Qualified Code(s): J69.0 - Pneumonitis due to inhalation of food and vomit Is this a current diagnosis for this admission?: Yes (3) Ventilator associated pneumonia Is this a current diagnosis for this admission?: Yes (4) Acute calculous cholecystitis Is this a current diagnosis for this admission?: Yes (5) Urinary tract infection associated with indwelling urethral catheter Qualifiers: Encounter type: initial encounter Qualified Code(s): T83.511A - Infection and inflammatory reaction due to indwelling urethral catheter, initial encounter ; N39.0 - Urinary tract infection, site not specified; N39.0 - Urinary tract infection, site not specified Is this a current diagnosis for this admission?: Yes (6) Metabolic encephalopathy Is this a current diagnosis for this admission?: Yes (7) Debilitated patient Is this a current diagnosis for this admission?: Yes (8) Primary hyperparathyroidism Is this a current diagnosis for this admission?: Yes (9) Urinary tract infection due to Enterococcus Is this a current diagnosis for this admission?: Yes
[2018-03-15] MEDS: IPRATROPIUM/ALBUTEROL 0.5-2.5 MG/3 ML AMPUL NEB SCH ×4 (02:14→19:38)
[2018-03-15] MEDS: PIPERACILLIN SODIUM/TAZOBACTAM 3.375 GM in NORMAL SALINE 100 ML IV SCH ×4 (03:52→20:51)
[2018-03-15 05:23] LABS: ABSOLUTE BASOPHILS # (AUTO) 0.1 10^3/uL (0.0-0.2); ABSOLUTE EOSINOPHILS # (AUTO) 1.9 10^3/uL (0.0-0.6); ABSOLUTE LYMPHOCYTES (AUTO) 2.9 10^3/uL (0.5-4.7); ABSOLUTE MONOCYTES (AUTO) 1.3 10^3/uL (0.1-1.4); ABSOLUTE NEUT (AUTO) 7.3 10^3/uL (1.7-8.2); BASOPHILS % (AUTO) 0.9 % (0-2); EOSINOPHILS % (AUTO) 13.9 % (0-6); HEMATOCRIT 23.2 % (36.0-47.0); LYMPHOCYTES % (AUTO) 21.8 % (13-45); MEAN CORPUSCULAR HEMOGLOBIN 25.8 pg (27.0-33.4); MEAN CORPUSCULAR HGB CONC 31.8 g/dL (32.0-36.0); MEAN CORPUSCULAR VOLUME 81 fl (80-97); MONOCYTES % (AUTO) 9.7 % (3-13); PLATELET COUNT 354 10^3/uL (150-450); RED BLOOD COUNT 2.87 10^6/uL (3.72-5.28); RED CELL DISTRIBUTION WIDTH 18.1 % (11.5-14.0); SEGMENTED NEUTROPHILS % (AUTO) 53.7 % (42-78); TOTAL CELLS COUNTED % (AUTO) 100 %; WHITE BLOOD COUNT 13.5 10^3/uL (4.0-10.5)
[2018-03-15 05:24] LABS: HEMOGLOBIN 7.4 g/dL (12.0-15.5)
[2018-03-15] MEDS: HEPARIN SOD (PORCINE) 5,000 UNIT/ML 1 ML SYRINGE SUBCUT SCH ×3 (05:38→21:20)
[2018-03-15 05:46] LABS: ALANINE AMINOTRANSFERASE 29 U/L (9-52); ALBUMIN 3.1 g/dL (3.5-5.0); ALKALINE PHOSPHATASE 170 U/L (38-126); ANION GAP 11 (5-19); ASPARTATE AMINO TRANSFERASE 21 U/L (14-36); BILIRUBIN,DIRECT 0.3 mg/dL (0.0-0.4); BILIRUBIN,TOTAL 0.3 mg/dL (0.2-1.3); BLOOD UREA NITROGEN 32 mg/dL (7-20); CALCIUM 10.1 mg/dL (8.4-10.2); CARBON DIOXIDE 26 mmol/L (22-30); CHLORIDE 109 mmol/L (98-107); GLUCOSE 147 mg/dL (75-110); POTASSIUM 3.9 mmol/L (3.6-5.0)
[2018-03-15] MEDS: ACETYLCYSTEINE 20% SOLN 800 MG/4 ML VIAL.NEB NEB SCH ×2 (07:40→19:38)
[2018-03-15 09:15] LABS: ARTERIAL BLOOD BASE EXCESS -0.6 mmol/L; ARTERIAL BLOOD FIO2 35%; ARTERIAL BLOOD H2CO3 1.47 mmol/L (1.05-1.35); ARTERIAL BLOOD HCO3 25.5 mmol/L (20-26); ARTERIAL BLOOD O2 SATURATION 96.7 % (94-98); ARTERIAL BLOOD PCO2 48.7 mmHg (35-45); ARTERIAL BLOOD PH 7.34 (7.35-7.45); ARTERIAL BLOOD PO2 93.5 mmHg (80-100)
[2018-03-15] MEDS: ASCORBIC ACID 500 MG TABLET PEG SCH (09:35)
[2018-03-15] MEDS: FUROSEMIDE 40 MG TABLET PEG SCH ×2 (09:35→20:51)
[2018-03-15] MEDS: MEMANTINE HCL 10 MG TABLET PEG SCH (09:35)
[2018-03-15] MEDS: TOBRAMYCIN SULFATE/DEXAMETH OPH SUSP 2.5 ML OU SCH (09:35)
[2018-03-15] MEDS: LACTOBACILLUS ACIDOPHILUS 250 MG TAB PEG SCH (09:36)
[2018-03-15] MEDS: AMLODIPINE BESYLATE 10 MG TABLET PEG SCH (09:36)
[2018-03-15] MEDS: ASPIRIN 81 MG TABLET, CHEWABLE PEG SCH (09:36)
[2018-03-15] MEDS: INSULIN DETEMIR 100 UNIT/ML 3 ML PEN SUBCUT SCH (09:36)
[2018-03-15] MEDS: INSULIN REG, HUMAN 100 UNIT/ML 3 ML VIAL (PYX) SUBCUT PRN ×2 (11:38→18:06)
--- NOTE | 2018-03-15 14:59 | PDOC PROGRESS REPORT ---
Subjective Progress Note for:: 03/15/18 Subjective:: Patient seen by the bedside, multiple comorbid conditions patient has daughter is contemplating transfer to [facility] in [place], she has anemia family refused blood transfusion, she has multiple gallstones with questionable cholecystitis,high risk for surgery. Reason For Visit: VENTILATOR ASSOCIATED PNEUMONIA,CHRONIC Physical Exam Vital Signs: Temp Pulse Resp BP Pulse Ox 97.7 F 86 25 H 131/66 H 96 03/15/18 11:49 03/15/18 13:16 03/15/18 13:16 03/15/18 11:49 03/15/18 13:16 Intake & Output 03/14/18 03/15/18 03/16/18 06:59 06:59 06:59 Intake Total 2251 2772 Output Total 1600 1400 Balance 651 1372 Weight 88.9 kg 88.9 kg General appearance: PRESENT: no acute distress Eye exam: PRESENT: PERRLA Cardiovascular exam: PRESENT: +S1, +S2 GI/Abdominal exam: PRESENT: soft Results Laboratory Results: 03/15/18 04:25 03/15/18 04:25 03/14/18 03/14/18 03/14/18 17:45 18:24 18:24 WBC 12.8 H RBC 2.96 L Hgb 7.5 L Hct 24.3 L MCV 82 MCH 25.4 L MCHC 31.0 L RDW 17.9 H Plt Count 362 Seg Neutrophils % 58.8 Lymphocytes % 20.4 Monocytes % 8.6 Eosinophils % 11.0 H Basophils % 1.2 Absolute Neutrophils 7.5 Absolute Lymphocytes 2.6 Absolute Monocytes 1.1 Absolute Eosinophils 1.4 H Absolute Basophils 0.2 Carbonic Acid HCO3/H2CO3 Ratio ABG pH ABG pCO2 ABG pO2 ABG HCO3 ABG O2 Saturation ABG Base Excess FiO2 Sodium 145.6 H Potassium 4.0 Chloride 108 H Carbon Dioxide 25 Anion Gap 13 BUN 31 H Creatinine 0.88 0.84 Est GFR ( Amer) > 60 > 60 Est GFR (Non-Af Amer) > 60 > 60 Glucose 163 H Calcium 9.1 Total Bilirubin 0.3 AST 19 ALT 33 Alkaline Phosphatase 179 H Total Protein 7.0 Albumin 3.4 L 03/15/18 03/15/18 03/15/18 04:25 04:25 08:48 WBC 13.5 H RBC 2.87 L Hgb 7.4 L Hct 23.2 L MCV 81 MCH 25.8 L MCHC 31.8 L RDW 18.1 H Plt Count 354 Seg Neutrophils % 53.7 Lymphocytes % 21.8 Monocytes % 9.7 Eosinophils % 13.9 H Basophils % 0.9 Absolute Neutrophils 7.3 Absolute Lymphocytes 2.9 Absolute Monocytes 1.3 Absolute Eosinophils 1.9 H Absolute Basophils 0.1 Carbonic Acid 1.47 H HCO3/H2CO3 Ratio 17:1 ABG pH 7.34 L ABG pCO2 48.7 H ABG pO2 93.5 ABG HCO3 25.5 ABG O2 Saturation 96.7 ABG Base Excess -0.6 FiO2 35% Sodium 146.0 H Potassium 3.9 Chloride 109 H Carbon Dioxide 26 Anion Gap 11 BUN 32 H Creatinine 0.91 Est GFR ( Amer) > 60 Est GFR (Non-Af Amer) 59 L Glucose 147 H Calcium 10.1 Total Bilirubin 0.3 AST 21 ALT 29 Alkaline Phosphatase 170 H Total Protein 7.0 Albumin 3.1 L 03/07/18 03/07/18 03/08/18 18:07 23:40 05:45 CK-MB (CK-2) 0.66 0.43 0.42 Troponin I 0.053 0.047 0.064 Impressions: Abdomen/Pelvis CT 03/07/18 08:52 IMPRESSION: Dense consolidation in the right lower lobe worrisome for pneumonia. Small parapneumonic effusion. Thick walled gallbladder with stones. Acute cholecystitis may be present Wall thickening and luminal narrowing distal sigmoid colon, worrisome for focal colitis. No adjacent abscess. Abdomen Ultrasound 03/07/18 12:49 IMPRESSION: Findings consistent with multiple gallstones. There is borderline thickening of the gallbladder wall. Other findings as noted above Head CT 03/08/18 00:00 IMPRESSION: 1. CHRONIC MICROVASCULAR ISCHEMIA. NO ACUTE IMAGING FINDINGS IN THE BRAIN. 2. RIGHT SPHENOID SINUS DISEASE. EVIDENCE OF ACUTE STROKE: NO. Chest X-Ray 03/13/18 00:00 IMPRESSION: Moderate right and small left pleural effusions with bibasilar airspace disease, similar compared to 03/08/2018 and 03/07/2018. Assessment & Plan - Diagnosis (1) Acute hypoxemic respiratory failure Is this a current diagnosis for this admission?: Yes (2) Right lower lobe pneumonia Qualifiers: Pneumonia type: aspiration pneumonia Aspiration pneumonia type: unspecified Qualified Code(s): J69.0 - Pneumonitis due to inhalation of food and vomit Is this a current diagnosis for this admission?: Yes (3) Ventilator associated pneumonia Is this a current diagnosis for this admission?: Yes (4) Acute calculous cholecystitis Is this a current diagnosis for this admission?: Yes (5) Urinary tract infection associated with indwelling urethral catheter Qualifiers: Encounter type: initial encounter Qualified Code(s): T83.511A - Infection and inflammatory reaction due to indwelling urethral catheter, initial encounter ; N39.0 - Urinary tract infection, site not specified; N39.0 - Urinary tract infection, site not specified Is this a current diagnosis for this admission?: Yes (6) Metabolic encephalopathy Is this a current diagnosis for this admission?: Yes (7) Debilitated patient Is this a current diagnosis for this admission?: Yes (8) Primary hyperparathyroidism Is this a current diagnosis for this admission?: Yes (9) Urinary tract infection due to Enterococcus Is this a current diagnosis for this admission?: Yes
[2018-03-15] MEDS: NORMAL SALINE 1000 ML 1,000 ML IV PRN (17:11)
[2018-03-15] MEDS: VANCOMYCIN HCL 1,500 MG in DEXTROSE 5%-WATER 250 ML IV SCH (17:11)
[2018-03-16] MEDS: IPRATROPIUM/ALBUTEROL 0.5-2.5 MG/3 ML AMPUL NEB SCH ×4 (01:51→20:16)
[2018-03-16] MEDS: PIPERACILLIN SODIUM/TAZOBACTAM 3.375 GM in NORMAL SALINE 100 ML IV SCH ×4 (02:22→20:55)
[2018-03-16] MEDS: HEPARIN SOD (PORCINE) 5,000 UNIT/ML 1 ML SYRINGE SUBCUT SCH ×3 (05:28→23:15)
[2018-03-16] MEDS: ACETYLCYSTEINE 20% SOLN 800 MG/4 ML VIAL.NEB NEB SCH ×2 (08:14→20:16)
[2018-03-16] MEDS: INSULIN REG, HUMAN 100 UNIT/ML 3 ML VIAL (PYX) SUBCUT PRN ×4 (08:24→21:51)
[2018-03-16] MEDS: INSULIN DETEMIR 100 UNIT/ML 3 ML PEN SUBCUT SCH (09:08)
[2018-03-16] MEDS: MEMANTINE HCL 10 MG TABLET PEG SCH (09:09)
[2018-03-16] MEDS: ASPIRIN 81 MG TABLET, CHEWABLE PEG SCH (09:09)
[2018-03-16] MEDS: FUROSEMIDE 40 MG TABLET PEG SCH ×2 (09:09→20:55)
[2018-03-16] MEDS: LACTOBACILLUS ACIDOPHILUS 250 MG TAB PEG SCH (09:09)
[2018-03-16] MEDS: ASCORBIC ACID 500 MG TABLET PEG SCH (09:10)
[2018-03-16] MEDS: TOBRAMYCIN SULFATE/DEXAMETH OPH SUSP 2.5 ML OU SCH (09:10)
[2018-03-16] MEDS: AMLODIPINE BESYLATE 10 MG TABLET PEG SCH (09:10)
--- NOTE | 2018-03-16 19:30 | Progress Note ---
Provider Note Provider Note: Palliative Care follow up visit. Follow up PC visit with patient, daughter and grand-daughter. All are very upset because carlitos cannot be transferred to [facility] in [place]. I talked with them for a very long time about all of daughters frustrations with care, her understanding of what doctors are telling her and her desire to continue very aggressive care. We discussed blood transfusion, which daughter says she has not agreed to because " she might have a reaction" and discussed this in relation to what the blood does and that reactions are possible with most treatments. We discussed thoracentesis at length because she did not have good understanding of the difference in removing this fluid as opposed to use of diuretics etc. She said she didnt think the doctors wanted to do the thoracentesis, so I explained that most of the time, it is something that has to be repeated as the fluid re-accumulates. She even admitted that when patient had one while at [facility] she had to be taken to hospital for procedure and I reminded her that [facility] is more of a pulmonary rehab and is not equipped to do the procedures like this that are done in a hospital. Daughter is very sure she is not ready for comfort care or hospice, and she says patient agrees. AT that point, Mrs. Matt nodded her head that she agreed. However, daughter is concerned about having patient transferred to another hospital. We talked about other facilities in the area and I told her if she wanted to request transfer, she needed to talk with Dr. Christensen about it soon as there may be a delay of several days getting a bed in a tertiary center. We talked about thoracentesis and blood transfusion not being curative treatmetns and would most likely have to be done repeatedly. We talked about patient's general decline, needing diuretics since she is not tolerating systemic fluids, etc. Daughter is very anxious and wants to do "everything" for this patient. SHe is not able to grasp the decline in her aged mother as being something that will not resolve. I let her vent and was happy to discuss all the issues, but I do not think it changed her mind or really even made the problems anymore understandable for her. I will continue to follow and support. Discussed with Dr. Higgins who has been very patient and kind in this very difficult situation. Daughter is appreciative of his care. Total time 45 min
--- NOTE | 2018-03-16 20:57 | PDOC PROGRESS REPORT ---
Subjective Progress Note for:: 03/16/18 Subjective:: I had a long discussion with patient daughter regarding her mother's condition, the L5 to transfer to long care acute care facility was declined, family yet to sign consent for thoracentesis and also blood transfusion, chest x-ray be ordered today Reason For Visit: VENTILATOR ASSOCIATED PNEUMONIA,CHRONIC Physical Exam Vital Signs: Temp Pulse Resp BP Pulse Ox 98.4 F 100 12 143/98 H 95 03/16/18 19:47 03/16/18 19:47 03/16/18 19:47 03/16/18 19:47 03/16/18 19:47 Intake & Output 03/15/18 03/16/18 03/17/18 06:59 06:59 06:59 Intake Total 2772 2831 1681 Output Total 1400 1895 400 Balance 3789 091 9276 Weight 88.9 kg 92.5 kg General appearance: PRESENT: no acute distress Eye exam: PRESENT: PERRLA Respiratory exam: PRESENT: decreased breath sounds Cardiovascular exam: PRESENT: +S1, +S2 GI/Abdominal exam: PRESENT: soft Neurological exam: PRESENT: alert Results Laboratory Results: 03/15/18 04:25 03/15/18 04:25 03/07/18 03/07/18 03/08/18 18:07 23:40 05:45 CK-MB (CK-2) 0.66 0.43 0.42 Troponin I 0.053 0.047 0.064 Impressions: Abdomen/Pelvis CT 03/07/18 08:52 IMPRESSION: Dense consolidation in the right lower lobe worrisome for pneumonia. Small parapneumonic effusion. Thick walled gallbladder with stones. Acute cholecystitis may be present Wall thickening and luminal narrowing distal sigmoid colon, worrisome for focal colitis. No adjacent abscess. Abdomen Ultrasound 03/07/18 12:49 IMPRESSION: Findings consistent with multiple gallstones. There is borderline thickening of the gallbladder wall. Other findings as noted above Head CT 03/08/18 00:00 IMPRESSION: 1. CHRONIC MICROVASCULAR ISCHEMIA. NO ACUTE IMAGING FINDINGS IN THE BRAIN. 2. RIGHT SPHENOID SINUS DISEASE. EVIDENCE OF ACUTE STROKE: NO. Chest X-Ray 03/13/18 00:00 IMPRESSION: Moderate right and small left pleural effusions with bibasilar airspace disease, similar compared to 03/08/2018 and 03/07/2018. Assessment & Plan - Diagnosis (1) Acute hypoxemic respiratory failure Is this a current diagnosis for this admission?: Yes (2) Right lower lobe pneumonia Qualifiers: Pneumonia type: aspiration pneumonia Aspiration pneumonia type: unspecified Qualified Code(s): J69.0 - Pneumonitis due to inhalation of food and vomit Is this a current diagnosis for this admission?: Yes (3) Ventilator associated pneumonia Is this a current diagnosis for this admission?: Yes (4) Acute calculous cholecystitis Is this a current diagnosis for this admission?: Yes (5) Urinary tract infection associated with indwelling urethral catheter Qualifiers: Encounter type: initial encounter Qualified Code(s): T83.511A - Infection and inflammatory reaction due to indwelling urethral catheter, initial encounter ; N39.0 - Urinary tract infection, site not specified; N39.0 - Urinary tract infection, site not specified Is this a current diagnosis for this admission?: Yes (6) Metabolic encephalopathy Is this a current diagnosis for this admission?: Yes (7) Debilitated patient Is this a current diagnosis for this admission?: Yes (8) Primary hyperparathyroidism Is this a current diagnosis for this admission?: Yes (9) Urinary tract infection due to Enterococcus Is this a current diagnosis for this admission?: Yes
--- NOTE | 2018-03-16 22:08 | RADIOLOGY REPORT (SQ) ---
EXAM DESCRIPTION: CHEST SINGLE VIEW COMPLETED DATE/TIME: 03/16/2018 9:44 pm REASON FOR STUDY: Pleural effusion COMPARISON: 03/13/2018 EXAM PARAMETERS: NUMBER OF VIEWS: One view. TECHNIQUE: Single frontal radiographic view of the chest acquired. RADIATION DOSE: NA LIMITATIONS: None. FINDINGS: LUNGS AND PLEURA: Considerable right pleural effusion. There is considerable opacificatio n in both lung bases. Mild pulmonary edema is suggested. MEDIASTINUM AND HILAR STRUCTURES: No masses. Contour normal. HEART AND VASCULAR STRUCTURES: Cardiomegaly. Mild pulmonary edema. BONES: No acute findings. HARDWARE: The tracheostomy tube is present. OTHER: No other significant finding. IMPRESSION: Cardiomegaly with mild pulmonary edema and considerable right pleural effusion. TECHNICAL DOCUMENTATION: JOB ID: [id number] [employer] All Rights Reserved Reading location - IP/workstation name: [email or web address]
[2018-03-17] MEDS: IPRATROPIUM/ALBUTEROL 0.5-2.5 MG/3 ML AMPUL NEB SCH ×4 (01:52→19:47)
[2018-03-17] MEDS ORDERED: FUROSEMIDE INJ/PF 40 MG/4 ML SDV ONE (02:56)
[2018-03-17 03:11] LABS: ARTERIAL BLOOD BASE EXCESS 1.1 mmol/L; ARTERIAL BLOOD FIO2 35%; ARTERIAL BLOOD H2CO3 1.33 mmol/L (1.05-1.35); ARTERIAL BLOOD HCO3 26.2 mmol/L (20-26); ARTERIAL BLOOD O2 SATURATION 95.6 % (94-98); ARTERIAL BLOOD PCO2 44.3 mmHg (35-45); ARTERIAL BLOOD PH 7.39 (7.35-7.45); ARTERIAL BLOOD PO2 79.3 mmHg (80-100); ARTERIAL BLOOD TOTAL CO2 27.6 mmol/L (21-25)
[2018-03-17] MEDS ORDERED: FUROSEMIDE INJ/PF 40 MG/4 ML SDV IV ONE ×2 (03:15→20:00)
[2018-03-17] MEDS: PIPERACILLIN SODIUM/TAZOBACTAM 3.375 GM in NORMAL SALINE 100 ML IV SCH ×4 (04:04→21:28)
[2018-03-17] MEDS: HEPARIN SOD (PORCINE) 5,000 UNIT/ML 1 ML SYRINGE SUBCUT SCH ×3 (06:49→21:28)
[2018-03-17] MEDS: ACETYLCYSTEINE 20% SOLN 800 MG/4 ML VIAL.NEB NEB SCH ×2 (09:06→19:47)
[2018-03-17] MEDS: INSULIN DETEMIR 100 UNIT/ML 3 ML PEN SUBCUT SCH (11:18)
[2018-03-17] MEDS: FUROSEMIDE 40 MG TABLET PEG SCH (11:19)
[2018-03-17] MEDS: MEMANTINE HCL 10 MG TABLET PEG SCH (11:19)
[2018-03-17] MEDS: ASCORBIC ACID 500 MG TABLET PEG SCH (11:19)
[2018-03-17] MEDS: LACTOBACILLUS ACIDOPHILUS 250 MG TAB PEG SCH (11:19)
[2018-03-17] MEDS: ASPIRIN 81 MG TABLET, CHEWABLE PEG SCH (11:19)
[2018-03-17] MEDS: AMLODIPINE BESYLATE 10 MG TABLET PEG SCH (11:19)
[2018-03-17] MEDS: TOBRAMYCIN SULFATE/DEXAMETH OPH SUSP 2.5 ML OU SCH (11:20)
[2018-03-17] MEDS: INSULIN REG, HUMAN 100 UNIT/ML 3 ML VIAL (PYX) SUBCUT PRN ×3 (13:38→21:28)
[2018-03-17 15:09] LABS: ABSOLUTE BASOPHILS # (AUTO) 0.2 10^3/uL (0.0-0.2); ABSOLUTE EOSINOPHILS # (AUTO) 0.8 10^3/uL (0.0-0.6); ABSOLUTE LYMPHOCYTES (AUTO) 3.9 10^3/uL (0.5-4.7); ABSOLUTE MONOCYTES (AUTO) 1.2 10^3/uL (0.1-1.4); ABSOLUTE NEUT (AUTO) 7.1 10^3/uL (1.7-8.2); BASOPHILS % (AUTO) 1.4 % (0-2); EOSINOPHILS % (AUTO) 5.9 % (0-6); HEMATOCRIT 25.4 % (36.0-47.0); LYMPHOCYTES % (AUTO) 29.7 % (13-45); MEAN CORPUSCULAR HEMOGLOBIN 25.4 pg (27.0-33.4); MEAN CORPUSCULAR HGB CONC 31.4 g/dL (32.0-36.0); MEAN CORPUSCULAR VOLUME 81 fl (80-97); MONOCYTES % (AUTO) 9.4 % (3-13); PLATELET COUNT 400 10^3/uL (150-450); RED BLOOD COUNT 3.13 10^6/uL (3.72-5.28); RED CELL DISTRIBUTION WIDTH 18.8 % (11.5-14.0); SEGMENTED NEUTROPHILS % (AUTO) 53.6 % (42-78); TOTAL CELLS COUNTED % (AUTO) 100 %; WHITE BLOOD COUNT 13.2 10^3/uL (4.0-10.5)
[2018-03-17] MEDS ORDERED: LIDOCAINE 1% INJ-PF (10 MG/ML) 30 ML SDV ONE (16:45)
--- NOTE | 2018-03-17 18:04 | PDOC CONSULTATION ---
Consultation Consult Date: 03/17/18 Consult reason:: need CVL History of Present Illness Admission Date/PCP: 03/07/18 15:18 BAKARI BECKER MD Patient complains of: need CVL History of Present Illness: BRIANA BRADY is a 82 year old female, home ventilator dependednt, in need pof IV access for medications; she has been admitted for pneumonia. Past Medical History Cardiac Medical History: Reports: Congestive Heart Failure, Hyperlipidema, Hypertension, Peripheral Vascular Disease, Pulmonary Embolism Pulmonary Medical History: Reports: Chronic Obstructive Pulmonary Disease (COPD) , Pneumonia - aspiration Endocrine Medical History: Reports: Diabetes Mellitus Type 1, Diabetes Mellitus Type 2 Psychiatric Medical History: Reports: Dementia Denies: Depression Infectious Medical History: Reports: Clostridium Difficile Past Surgical History Past Surgical History: Reports: Orthopedic Surgery - Shoulder. 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 Social History Lives with: Family Smoking Status: Never Smoker Frequency of Alcohol Use: None Hx Recreational Drug Use: No Drugs: None Hx Prescription Drug Abuse: No Family History Family History: Reviewed & Not Pertinent Parental Family History Reviewed: No Children Family History Reviewed: No Sibling(s) Family History Reviewed.: No Medication/Allergy Home Medications: Amlodipine Besylate [Norvasc 10 mg Tablet] 10 mg PEG DAILY 12/18/17 Ascorbic Acid [Vitamin C 500 mg Tablet] 500 mg PEG DAILY 12/18/17 Aspirin [Adult Low Dose Aspirin EC] 81 mg PEG DAILY 12/18/17 Insulin Aspart [Novolog Flexpen] 0 units SQ .PERSLIDINGSCALE MDD ACCUCHECKS Q6 12/18/17 Insulin Detemir [Levemir Flextouch] 10 units SQ DAILY 12/18/17 Memantine HCl [Namenda 10 mg Tablet] 10 mg PEG DAILY 12/18/17 Multivitamin [Animal Shapes] 1 tab PEG DAILY 12/18/17 Budesonide [Pulmicort Neb 0.5 mg/2 ml Ampul] 0.5 mg NEB RTQ12 03/07/18 Furosemide [Lasix 40 mg Tablet] 40 mg PEG DAILY 03/07/18 Ipratropium/Albuterol Sulfate [Duoneb 3 ml Ampul] 3 ml NEB RTQ6 03/07/18 Lactobacillus Acidophilus [Acidophilus Lactobacilli] 1 tab PEG DAILY 03/07/18 Ondansetron HCl [Zofran 8 mg Tablet] 8 mg PEG TIDP PRN 03/07/18 Simethicone [Little Remedies Gas Relief] 80 mg PEG ASDIR PRN 03/07/18 Tobramycin Sulfate/Dexameth [Tobradex Oph Drops 2.5 Ml Bottle] 1 drop OU Q6 09/12 Allergies/Adverse Reactions: alprazolam [From Xanax] Allergy (Verified 03/07/18 09:34) iodine [Iodine] Allergy (Verified 03/07/18 09:34) quetiapine fumarate [From Seroquel] Allergy (Verified 03/07/18 09:34) Physical Exam Vital Signs: Temp Pulse Resp BP Pulse Ox 98.0 F 87 26 H 145/95 H 97 03/17/18 12:16 03/17/18 14:37 03/17/18 14:37 03/17/18 12:16 03/17/18 14:37 Intake & Output 03/16/18 03/17/18 03/18/18 06:59 06:59 06:59 Intake Total 2831 2464 216 Output Total 1895 1500 800 Balance 936 964 -584 Weight 92.5 kg 92.4 kg General appearance: PRESENT: hard of hearing, mild distress, morbidly obese Respiratory exam: PRESENT: clear to auscultation monica Cardiovascular exam: PRESENT: RRR GI/Abdominal exam: PRESENT: soft Results Laboratory Results: 03/17/18 14:32 03/15/18 04:25 03/17/18 03/17/18 03:03 14:32 WBC 13.2 H RBC 3.13 L Hgb 8.0 L Hct 25.4 L MCV 81 MCH 25.4 L MCHC 31.4 L RDW 18.8 H Plt Count 400 Seg Neutrophils % 53.6 Lymphocytes % 29.7 Monocytes % 9.4 Eosinophils % 5.9 Basophils % 1.4 Absolute Neutrophils 7.1 Absolute Lymphocytes 3.9 Absolute Monocytes 1.2 Absolute Eosinophils 0.8 H Absolute Basophils 0.2 Carbonic Acid 1.33 HCO3/H2CO3 Ratio 19:1 ABG pH 7.39 ABG pCO2 44.3 ABG pO2 79.3 L ABG HCO3 26.2 H ABG O2 Saturation 95.6 ABG Base Excess 1.1 FiO2 35% 03/07/18 03/07/18 03/08/18 18:07 23:40 05:45 CK-MB (CK-2) 0.66 0.43 0.42 Troponin I 0.053 0.047 0.064 Impressions: Abdomen/Pelvis CT 03/07/18 08:52 IMPRESSION: Dense consolidation in the right lower lobe worrisome for pneumonia. Small parapneumonic effusion. Thick walled gallbladder with stones. Acute cholecystitis may be present Wall thickening and luminal narrowing distal sigmoid colon, worrisome for focal colitis. No adjacent abscess. Abdomen Ultrasound 03/07/18 12:49 IMPRESSION: Findings consistent with multiple gallstones. There is borderline thickening of the gallbladder wall. Other findings as noted above Head CT 03/08/18 00:00 IMPRESSION: 1. CHRONIC MICROVASCULAR ISCHEMIA. NO ACUTE IMAGING FINDINGS IN THE BRAIN. 2. RIGHT SPHENOID SINUS DISEASE. EVIDENCE OF ACUTE STROKE: NO. Chest X-Ray 03/16/18 00:00 IMPRESSION: Cardiomegaly with mild pulmonary edema and considerable right pleural effusion. Assessment & Plan - Diagnosis (1) Need for intravenous access Is this a current diagnosis for this admission?: Yes - Plan Summary Plan Summary: A/ Pneumonia Need IV access P/ Plan CVL placement under local at bedside tonight Procedure, risks, benefits, complications discussed with the son Eleno, he has given permission to `place the CVL
--- NOTE | 2018-03-17 18:30 | RADIOLOGY REPORT (SQ) ---
EXAM DESCRIPTION: CHEST SINGLE VIEW COMPLETED DATE/TIME: 03/17/2018 6:22 pm REASON FOR STUDY: RO PNEUMO COMPARISON: 03/16/2018 EXAM PARAMETERS: NUMBER OF VIEWS: One view. TECHNIQUE: Single frontal radiographic view of the chest acquired. RADIATION DOSE: NA LIMITATIONS: None. FINDINGS: LUNGS AND PLEURA: No real interval change. Right pleural effusion. Mild pulmonary edema. No pneumothorax. MEDIASTINUM AND HILAR STRUCTURES: No masses. Contour normal. HEART AND VASCULAR STRUCTURES: Cardiomegaly. BONES: No acute findings. HARDWARE: Tracheostomy tube. OTHER: No other significant finding. IMPRESSION: No interval change in the appearance of the chest. Cardiomegaly with pulmonary edema an d right pleural effusion. TECHNICAL DOCUMENTATION: JOB ID: [id number] [employer]- All Rights Reserved Reading location - IP/workstation name: [email or web address]
[2018-03-17] MEDS: VANCOMYCIN HCL 1,500 MG in DEXTROSE 5%-WATER 250 ML IV SCH (19:41)
--- NOTE | 2018-03-17 21:18 | PDOC PROGRESS REPORT ---
Subjective Progress Note for:: 03/17/18 Subjective:: Patient's condition is very poor, she has right pleural effusion, family refused to consent a thoracentesis, prognosis is extremely poor Reason For Visit: VENTILATOR ASSOCIATED PNEUMONIA,CHRONIC Physical Exam Vital Signs: Temp Pulse Resp BP Pulse Ox 98.0 F 101 H 28 H 142/76 H 100 03/17/18 19:35 03/17/18 19:50 03/17/18 19:50 03/17/18 19:35 03/17/18 19:35 Intake & Output 03/16/18 03/17/18 03/18/18 06:59 06:59 06:59 Intake Total 2831 2464 538 Output Total 1895 1500 1200 Balance 936 964 -662 Weight 92.5 kg 92.4 kg General appearance: PRESENT: mild distress Eye exam: PRESENT: PERRLA Respiratory exam: PRESENT: decreased breath sounds Cardiovascular exam: PRESENT: +S1, +S2 GI/Abdominal exam: PRESENT: soft Results Laboratory Results: 03/17/18 14:32 03/15/18 04:25 03/17/18 03/17/18 03:03 14:32 WBC 13.2 H RBC 3.13 L Hgb 8.0 L Hct 25.4 L MCV 81 MCH 25.4 L MCHC 31.4 L RDW 18.8 H Plt Count 400 Seg Neutrophils % 53.6 Lymphocytes % 29.7 Monocytes % 9.4 Eosinophils % 5.9 Basophils % 1.4 Absolute Neutrophils 7.1 Absolute Lymphocytes 3.9 Absolute Monocytes 1.2 Absolute Eosinophils 0.8 H Absolute Basophils 0.2 Carbonic Acid 1.33 HCO3/H2CO3 Ratio 19:1 ABG pH 7.39 ABG pCO2 44.3 ABG pO2 79.3 L ABG HCO3 26.2 H ABG O2 Saturation 95.6 ABG Base Excess 1.1 FiO2 35% 03/07/18 03/07/18 03/08/18 18:07 23:40 05:45 CK-MB (CK-2) 0.66 0.43 0.42 Troponin I 0.053 0.047 0.064 Impressions: Abdomen/Pelvis CT 03/07/18 08:52 IMPRESSION: Dense consolidation in the right lower lobe worrisome for pneumonia. Small parapneumonic effusion. Thick walled gallbladder with stones. Acute cholecystitis may be present Wall thickening and luminal narrowing distal sigmoid colon, worrisome for focal colitis. No adjacent abscess. Abdomen Ultrasound 03/07/18 12:49 IMPRESSION: Findings consistent with multiple gallstones. There is borderline thickening of the gallbladder wall. Other findings as noted above Head CT 03/08/18 00:00 IMPRESSION: 1. CHRONIC MICROVASCULAR ISCHEMIA. NO ACUTE IMAGING FINDINGS IN THE BRAIN. 2. RIGHT SPHENOID SINUS DISEASE. EVIDENCE OF ACUTE STROKE: NO. Chest X-Ray 03/17/18 00:00 IMPRESSION: No interval change in the appearance of the chest. Cardiomegaly with pulmonary edema and right pleural effusion. Assessment & Plan - Diagnosis (1) Acute hypoxemic respiratory failure Is this a current diagnosis for this admission?: Yes (2) Right lower lobe pneumonia Qualifiers: Pneumonia type: aspiration pneumonia Aspiration pneumonia type: unspecified Qualified Code(s): J69.0 - Pneumonitis due to inhalation of food and vomit Is this a current diagnosis for this admission?: Yes (3) Ventilator associated pneumonia Is this a current diagnosis for this admission?: Yes (4) Acute calculous cholecystitis Is this a current diagnosis for this admission?: Yes (5) Urinary tract infection associated with indwelling urethral catheter Qualifiers: Encounter type: initial encounter Qualified Code(s): T83.511A - Infection and inflammatory reaction due to indwelling urethral catheter, initial encounter ; N39.0 - Urinary tract infection, site not specified; N39.0 - Urinary tract infection, site not specified Is this a current diagnosis for this admission?: Yes (6) Metabolic encephalopathy Is this a current diagnosis for this admission?: Yes (7) Debilitated patient Is this a current diagnosis for this admission?: Yes (8) Primary hyperparathyroidism Is this a current diagnosis for this admission?: Yes (9) Urinary tract infection due to Enterococcus Is this a current diagnosis for this admission?: Yes
--- NOTE | 2018-03-17 21:45 | OPERATIVE REPORT E ---
Operative Report NAME: BRIANA BRADY : 1935 AGE: 82Y DATE OF SURGERY: 03/17/2018 ROOM: 304 PREOPERATIVE DIAGNOSIS: NEED OF INTRAVENOUS ACCESS FOR ADMINISTRATION FOR MEDICATION AND FLUIDS. POSTOPERATIVE DIAGNOSIS: NEED OF INTRAVENOUS ACCESS FOR ADMINISTRATION FOR MEDICATION AND FLUIDS. OPERATION: ATTEMPTED PLACEMENT OF RIGHT SUBCLAVIAN, LEFT SUBCLAVIAN, AND LEFT FEMORAL VEIN. SURGEON: PARISH BARAKAT M.D. LEASE BUYER: None. ESTIMATED BLOOD LOSS: Less than 20 mL. COMPLICATIONS: None. ANESTHESIA: About 30 mL of 1% lidocaine without epinephrine. INDICATIONS AND FINDINGS: This is an 87-year-old female ventilator dependent initially admitted for ventilator dependent pneumonia in need of IV access for administration of medication and fluids. A consent was obtained from her son, Eleno. DESCRIPTION OF PROCEDURE: The procedure was done at bedside. The patient was placed in supine Trendelenburg position. The right upper chest and clavicular area were prepped and draped in the usual fashion. The area was anesthetized with Lidocaine and a 16-gauge needle was used to cannulate with success the subclavian vein; however, insertion of the wire stopped after about 15 cm as per a blockage within the subclavian vein at the junction with the entire jugular vein. At this point, the left side of the neck and chest were prepped and draped in usual fashion. The anterior aspect of the clavicle was infiltrated with Lidocaine and the 16-gauge needle was used to unsuccessfully cannulate the subclavian vein. After multiple passes to the subclavian vein could not be cannulated and the procedure was aborted. The left groin was approached, prepped in a sterile fashion, draped and the pulses could not be palpated; however, the presumed area of the left femoral vein was infiltrated with Lidocaine and a 16-gauge needle was used to easily cannulate the vein multiple times. The wire, however, could not be advanced. At this point, the procedure was aborted. The patient tolerated the procedure well. A chest x-ray was then obtained to confirm the lack of complications. DICTATING PHYSICIAN: PARISH BARAKAT M.D. [id number] PHY#: [id number] ID: [id number] JOB#: [id number] ACCT: [id number] cc:PARISH BARAKAT M.D. > ILDA
[2018-03-18] MEDS: IPRATROPIUM/ALBUTEROL 0.5-2.5 MG/3 ML AMPUL NEB SCH ×4 (02:30→20:27)
[2018-03-18] MEDS: PIPERACILLIN SODIUM/TAZOBACTAM 3.375 GM in NORMAL SALINE 100 ML IV SCH ×4 (03:50→21:11)
[2018-03-18] MEDS: HEPARIN SOD (PORCINE) 5,000 UNIT/ML 1 ML SYRINGE SUBCUT SCH ×3 (05:02→21:11)
[2018-03-18] MEDS: INSULIN REG, HUMAN 100 UNIT/ML 3 ML VIAL (PYX) SUBCUT PRN ×3 (08:31→16:53)
[2018-03-18] MEDS: ACETYLCYSTEINE 20% SOLN 800 MG/4 ML VIAL.NEB NEB SCH ×2 (08:53→20:28)
[2018-03-18] MEDS: AMLODIPINE BESYLATE 10 MG TABLET PEG SCH (10:45)
[2018-03-18] MEDS: ASCORBIC ACID 500 MG TABLET PEG SCH (10:45)
[2018-03-18] MEDS: MEMANTINE HCL 10 MG TABLET PEG SCH (10:45)
[2018-03-18] MEDS: LACTOBACILLUS ACIDOPHILUS 250 MG TAB PEG SCH (10:45)
[2018-03-18] MEDS: FUROSEMIDE INJ/PF 40 MG/4 ML SDV IV SCH (10:45)
[2018-03-18] MEDS: ASPIRIN 81 MG TABLET, CHEWABLE PEG SCH (10:45)
[2018-03-18] MEDS: INSULIN DETEMIR 100 UNIT/ML 3 ML PEN SUBCUT SCH (10:46)
[2018-03-18] MEDS: TOBRAMYCIN SULFATE/DEXAMETH OPH SUSP 2.5 ML OU SCH (10:46)
[2018-03-18] MEDS: NORMAL SALINE 1000 ML 1,000 ML IV PRN (10:53)
--- NOTE | 2018-03-18 13:36 | PDOC PROGRESS REPORT ---
Subjective Progress Note for:: 03/18/18 Subjective:: Patient remain vent supported via tracheostomy and on enteral tube feeding. Family at bedside. Reason For Visit: VENTILATOR ASSOCIATED PNEUMONIA,CHRONIC Physical Exam Vital Signs: Temp Pulse Resp BP Pulse Ox 97.5 F 84 15 155/81 H 100 03/18/18 11:59 03/18/18 11:59 03/18/18 11:59 03/18/18 11:59 03/18/18 11:59 Intake & Output 03/17/18 03/18/18 03/19/18 06:59 06:59 06:59 Intake Total 2464 2044 0 Output Total 1500 1950 250 Balance 964 94 -250 Weight 92.4 kg 90.4 kg General appearance: PRESENT: obese Head exam: PRESENT: atraumatic, normocephalic Respiratory exam: PRESENT: decreased breath sounds - at lung bases Cardiovascular exam: PRESENT: RRR. ABSENT: diastolic murmur, rubs, systolic murmur GI/Abdominal exam: PRESENT: normal bowel sounds, soft, other - PEG tibe in situ Extremities exam: PRESENT: right AKA, pedal edema Neurological exam: PRESENT: altered Psychiatric exam: PRESENT: other - difficult to assess Skin exam: PRESENT: skin tears, other - multiple superficial skin pressure ulcers. Results Laboratory Results: 03/17/18 14:32 03/15/18 04:25 03/17/18 14:32 WBC 13.2 H RBC 3.13 L Hgb 8.0 L Hct 25.4 L MCV 81 MCH 25.4 L MCHC 31.4 L RDW 18.8 H Plt Count 400 Seg Neutrophils % 53.6 Lymphocytes % 29.7 Monocytes % 9.4 Eosinophils % 5.9 Basophils % 1.4 Absolute Neutrophils 7.1 Absolute Lymphocytes 3.9 Absolute Monocytes 1.2 Absolute Eosinophils 0.8 H Absolute Basophils 0.2 03/07/18 03/07/18 03/08/18 18:07 23:40 05:45 CK-MB (CK-2) 0.66 0.43 0.42 Troponin I 0.053 0.047 0.064 Impressions: Abdomen/Pelvis CT 03/07/18 08:52 IMPRESSION: Dense consolidation in the right lower lobe worrisome for pneumonia. Small parapneumonic effusion. Thick walled gallbladder with stones. Acute cholecystitis may be present Wall thickening and luminal narrowing distal sigmoid colon, worrisome for focal colitis. No adjacent abscess. Abdomen Ultrasound 03/07/18 12:49 IMPRESSION: Findings consistent with multiple gallstones. There is borderline thickening of the gallbladder wall. Other findings as noted above Head CT 03/08/18 00:00 IMPRESSION: 1. CHRONIC MICROVASCULAR ISCHEMIA. NO ACUTE IMAGING FINDINGS IN THE BRAIN. 2. RIGHT SPHENOID SINUS DISEASE. EVIDENCE OF ACUTE STROKE: NO. Chest X-Ray 03/17/18 00:00 IMPRESSION: No interval change in the appearance of the chest. Cardiomegaly with pulmonary edema and right pleural effusion. Assessment & Plan - Diagnosis (1) Ventilator associated pneumonia Is this a current diagnosis for this admission?: Yes Plan: Continue current medication management. (2) Chronic respiratory failure with hypoxia and hypercapnia Is this a current diagnosis for this admission?: Yes Plan: Continue current ventilator support, (3) Type 2 diabetes mellitus Qualifiers: Diabetes mellitus mcfp insulin use: with mcfp use Is this a current diagnosis for this admission?: Yes Plan: See covering attending physician orders. - Time Time Spent with patient: 25-34 minutes Medications reviewed and adjusted accordingly: Yes Anticipated discharge: Other Within: Other - Inpatient Certification Based on my medical assessment, after consideration of the patient's comorbidities, presenting symptoms, or acuity I expect that the services needed warrant INPATIENT care.: Yes I certify that my determination is in accordance with my understanding of Medicare's requirements for reasonable and necessary INPATIENT services [42 CFR 412.3e].: Yes Medical Necessity: Need Close Monitoring Due to Risk of Patient Decompensation, Need For Continuous Telemetry Monitoring, Need for Nebulizer Therapy and Monitoring of Response, Need for IV Antibiotics, Risk of Complication if Not Cared For in Hospital Post Hospital Care: Other - very poor prognosis. - Plan Summary Plan Summary: See covering attending physician orders.
[2018-03-19] MEDS: INSULIN REG, HUMAN 100 UNIT/ML 3 ML VIAL (PYX) SUBCUT PRN ×3 (00:08→12:07)
[2018-03-19] MEDS: IPRATROPIUM/ALBUTEROL 0.5-2.5 MG/3 ML AMPUL NEB SCH ×4 (02:06→20:25)
[2018-03-19] MEDS: PIPERACILLIN SODIUM/TAZOBACTAM 3.375 GM in NORMAL SALINE 100 ML IV SCH ×4 (04:23→22:18)
[2018-03-19] MEDS: HEPARIN SOD (PORCINE) 5,000 UNIT/ML 1 ML SYRINGE SUBCUT SCH ×3 (06:13→22:19)
[2018-03-19] MEDS: FUROSEMIDE INJ/PF 40 MG/4 ML SDV IV SCH (07:19)
[2018-03-19] MEDS: ONDANSETRON HCL 8 MG TABLET PEG PRN (07:20)
[2018-03-19] MEDS: ACETYLCYSTEINE 20% SOLN 800 MG/4 ML VIAL.NEB NEB SCH ×2 (07:37→20:25)
[2018-03-19] MEDS: AMLODIPINE BESYLATE 10 MG TABLET PEG SCH (09:19)
[2018-03-19] MEDS: ASPIRIN 81 MG TABLET, CHEWABLE PEG SCH (09:19)
[2018-03-19] MEDS: ASCORBIC ACID 500 MG TABLET PEG SCH (09:19)
[2018-03-19] MEDS: MEMANTINE HCL 10 MG TABLET PEG SCH (09:20)
[2018-03-19] MEDS: LACTOBACILLUS ACIDOPHILUS 250 MG TAB PEG SCH (09:20)
[2018-03-19] MEDS: INSULIN DETEMIR 100 UNIT/ML 3 ML PEN SUBCUT SCH (09:22)
--- NOTE | 2018-03-19 13:53 | PDOC PROGRESS REPORT ---
Subjective Progress Note for:: 03/19/18 Subjective:: Patient remain vent supported via tracheostomy and on enteral tube feeding. She had episode of oxygen de-saturation earlier today. She is currently on supplemental oxygen at 60% with saturation at 100%. There is reported episodes of agitation when family are not at her bedside. Reason For Visit: VENTILATOR ASSOCIATED PNEUMONIA,CHRONIC Physical Exam Vital Signs: Temp Pulse Resp BP Pulse Ox 97.9 F 64 15 138/83 H 95 03/19/18 11:11 03/19/18 11:11 03/19/18 11:11 03/19/18 11:11 03/19/18 11:11 Intake & Output 03/18/18 03/19/18 03/20/18 06:59 06:59 06:59 Intake Total 2044 2469 0 Output Total 1950 1200 200 Balance 94 1269 -200 Weight 90.4 kg 92.1 kg Physical Exam: General appearance: PRESENT: obese Head exam: PRESENT: atraumatic, normocephalic Respiratory exam: PRESENT: decreased breath sounds - at lung bases Cardiovascular exam: PRESENT: RRR. ABSENT: diastolic murmur, rubs, systolic murmur GI/Abdominal exam: PRESENT: normal bowel sounds, soft, other - PEG tibe in situ Extremities exam: PRESENT: right AKA, pedal edema Neurological exam: PRESENT: altered Psychiatric exam: PRESENT: other - difficult to assess Skin exam: PRESENT: skin tears, other - multiple superficial skin pressure ulcers. Results Laboratory Results: 03/17/18 14:32 03/15/18 04:25 03/07/18 03/07/18 03/08/18 18:07 23:40 05:45 CK-MB (CK-2) 0.66 0.43 0.42 Troponin I 0.053 0.047 0.064 Impressions: Abdomen/Pelvis CT 03/07/18 08:52 IMPRESSION: Dense consolidation in the right lower lobe worrisome for pneumonia. Small parapneumonic effusion. Thick walled gallbladder with stones. Acute cholecystitis may be present Wall thickening and luminal narrowing distal sigmoid colon, worrisome for focal colitis. No adjacent abscess. Abdomen Ultrasound 03/07/18 12:49 IMPRESSION: Findings consistent with multiple gallstones. There is borderline thickening of the gallbladder wall. Other findings as noted above Head CT 03/08/18 00:00 IMPRESSION: 1. CHRONIC MICROVASCULAR ISCHEMIA. NO ACUTE IMAGING FINDINGS IN THE BRAIN. 2. RIGHT SPHENOID SINUS DISEASE. EVIDENCE OF ACUTE STROKE: NO. Chest X-Ray 03/17/18 00:00 IMPRESSION: No interval change in the appearance of the chest. Cardiomegaly with pulmonary edema and right pleural effusion. Assessment & Plan - Diagnosis (1) Ventilator associated pneumonia Is this a current diagnosis for this admission?: Yes (2) Chronic respiratory failure with hypoxia and hypercapnia Is this a current diagnosis for this admission?: Yes (3) Type 2 diabetes mellitus Qualifiers: Diabetes mellitus residential insulin use: with intermediate accountant use Is this a current diagnosis for this admission?: Yes - Time Time Spent with patient: 25-34 minutes Medications reviewed and adjusted accordingly: Yes Anticipated discharge: Other Within: Other - Inpatient Certification Based on my medical assessment, after consideration of the patient's comorbidities, presenting symptoms, or acuity I expect that the services needed warrant INPATIENT care.: Yes I certify that my determination is in accordance with my understanding of Medicare's requirements for reasonable and necessary INPATIENT services [42 CFR 412.3e].: Yes Medical Necessity: Need Close Monitoring Due to Risk of Patient Decompensation, Need For IV Fluids, Need For Continuous Telemetry Monitoring, Need for Nebulizer Therapy and Monitoring of Response, Need for IV Antibiotics, Risk of Complication if Not Cared For in Hospital Post Hospital Care: D/C or Transfer Summary - Plan Summary Plan Summary: See covering attending physician orders.
[2018-03-19 18:31] LABS: VANCOMYCIN,TROUGH 23.8 ug/mL (5.0-20.0)
[2018-03-19] MEDS: VANCOMYCIN HCL 1,500 MG in DEXTROSE 5%-WATER 250 ML IV SCH (18:50)
[2018-03-20] MEDS: IPRATROPIUM/ALBUTEROL 0.5-2.5 MG/3 ML AMPUL NEB SCH ×4 (01:57→19:30)
[2018-03-20] MEDS: PIPERACILLIN SODIUM/TAZOBACTAM 3.375 GM in NORMAL SALINE 100 ML IV SCH ×4 (03:31→20:59)
[2018-03-20] MEDS: HEPARIN SOD (PORCINE) 5,000 UNIT/ML 1 ML SYRINGE SUBCUT SCH ×3 (05:12→22:11)
[2018-03-20 05:45] LABS: ABSOLUTE BASOPHILS # (AUTO) 0.2 10^3/uL (0.0-0.2); ABSOLUTE EOSINOPHILS # (AUTO) 0.9 10^3/uL (0.0-0.6); ABSOLUTE LYMPHOCYTES (AUTO) 2.9 10^3/uL (0.5-4.7); ABSOLUTE MONOCYTES (AUTO) 1.1 10^3/uL (0.1-1.4); BASOPHILS % (AUTO) 1.4 % (0-2); EOSINOPHILS % (AUTO) 7.5 % (0-6); LYMPHOCYTES % (AUTO) 23.6 % (13-45); SEGMENTED NEUTROPHILS % (AUTO) 58.5 % (42-78); TOTAL CELLS COUNTED % (AUTO) 100 %
[2018-03-20 05:52] LABS: RED BLOOD COUNT 2.83 10^6/uL (3.72-5.28); WHITE BLOOD COUNT 12.8 10^3/uL (4.0-10.5)
[2018-03-20 05:53] LABS: HEMATOCRIT 22.8 % (36.0-47.0); MEAN CORPUSCULAR HEMOGLOBIN 25.2 pg (27.0-33.4); MEAN CORPUSCULAR HGB CONC 31.3 g/dL (32.0-36.0); MEAN CORPUSCULAR VOLUME 81 fl (80-97); PLATELET COUNT 274 10^3/uL (150-450); RED CELL DISTRIBUTION WIDTH 19.2 % (11.5-14.0)
[2018-03-20 05:56] LABS: ANION GAP 9 (5-19); BLOOD UREA NITROGEN 41 mg/dL (7-20); CALCIUM 10.3 mg/dL (8.4-10.2); CARBON DIOXIDE 26 mmol/L (22-30); CHLORIDE 110 mmol/L (98-107); GLUCOSE 131 mg/dL (75-110); POTASSIUM 4.3 mmol/L (3.6-5.0); SODIUM 145.3 mmol/L (137-145)
[2018-03-20 06:19] LABS: HEMOGLOBIN 7.1 g/dL (12.0-15.5)
[2018-03-20] MEDS: ACETYLCYSTEINE 20% SOLN 800 MG/4 ML VIAL.NEB NEB SCH ×2 (08:13→19:30)
[2018-03-20] MEDS: LACTOBACILLUS ACIDOPHILUS 250 MG TAB PEG SCH (09:54)
[2018-03-20] MEDS: MEMANTINE HCL 10 MG TABLET PEG SCH (09:54)
[2018-03-20] MEDS: AMLODIPINE BESYLATE 10 MG TABLET PEG SCH (10:13)
[2018-03-20] MEDS: ASCORBIC ACID 500 MG TABLET PEG SCH (10:15)
[2018-03-20] MEDS: INSULIN DETEMIR 100 UNIT/ML 3 ML PEN SUBCUT SCH (10:15)
[2018-03-20] MEDS: FUROSEMIDE INJ/PF 40 MG/4 ML SDV IV SCH (10:16)
[2018-03-20] MEDS: ASPIRIN 81 MG TABLET, CHEWABLE PEG SCH (10:16)
[2018-03-20 10:56] LABS: INTERNATIONAL RATION (INR) 1.18; PROTHROMBIN TIME 15.6 SEC (11.4-15.4)
[2018-03-20 10:57] LABS: PARTIAL THROMBOPLASTIN TIME 29.5 SEC (23.5-35.8)
--- NOTE | 2018-03-20 14:38 | RADIOLOGY REPORT (SQ) ---
EXAM DESCRIPTION: U/S THORACENTESIS WITH IMAGING COMPLETED DATE/TIME: 03/20/2018 2:00 pm REASON FOR STUDY: pleural effusion COMPARISON: None. LIMITATIONS: None. PROCEDURE: Procedure, risks, benefit, and alternative explained to patient who then gave written con sent. The posterior right chest wall was marked using ultrasound guidance. A time-out was called fo r correct marking verification. Chest prepped and draped using sterile technique. Local anesthesia a chieved using 10 ml of 1% lidocaine injection. A 6fr Safe-T- Centesis [facility]. Fluid was aspirated. The catheter was removed and the entry site was covered wit h sterile bandage. No immediate complications noted. Images acquired during the procedure were stored on PACS. FINDINGS: ENTRY SITE: Posterior right chest. FLUID VOLUME: 700 mL. FLUID ANALYSIS: Light hung colored. OTHER: Fluid sent to the lab for testing. IMPRESSION: SUCCESSFUL THORACENTESIS USING ULTRASOUND GUIDANCE. COMMENT: Patient medication list reviewed: Yes- Quality ID# [id number]:Eligible professional attests to doc umenting in the medical record they obtained, updated, or reviewed the patient's current medications. TECHNICAL DOCUMENTATION: JOB ID: [id number] [employer]- All Rights Reserved Reading location - IP/workstation name: [email or web address]
--- NOTE | 2018-03-20 14:39 | RADIOLOGY REPORT (SQ) ---
EXAM DESCRIPTION: CHEST SINGLE VIEW COMPLETED DATE/TIME: 03/20/2018 2:26 pm REASON FOR STUDY: S/P THORACENTESIS COMPARISON: 03/17/2018. EXAM PARAMETERS: NUMBER OF VIEWS: One view. TECHNIQUE: Single frontal radiographic view of the chest acquired. RADIATION DOSE: NA LIMITATIONS: None. FINDINGS: LUNGS AND PLEURA: Decrease in the right pleural effusion. No pneumothorax. Left basilar airspace disease and left pleural effusion may have increased. MEDIASTINUM AND HILAR STRUCTURES: No masses. Contour normal. HEART AND VASCULAR STRUCTURES: Heart normal in size. Normal vasculature. BONES: No acute findings. HARDWARE: Tracheostomy tube. PICC line. OTHER: No other significant finding. IMPRESSION: 1. NO PNEUMOTHORAX FOLLOWING RIGHT-SIDED THORACENTESIS. 2. LEFT BASILAR AIRSPACE DISEASE AND LEFT PLEURAL EFFUSION HAVE INCREASED SINCE THE PRIOR STUDY. TECHNICAL DOCUMENTATION: JOB ID: [id number] [employer]- All Rights Reserved Reading location - IP/workstation name: [email or web address]
--- NOTE | 2018-03-20 14:53 | RADIOLOGY REPORT (SQ) ---
EXAM DESCRIPTION: PICC INSERTION; U/S GUIDE FOR VASCULAR ACCESS; FLUORO/CV PLACEMENT COMPLETED DATE/TIME: 03/20/2018 2:26 pm REASON FOR STUDY: No IV access; NO IV ACCESS COMPARISON: None. FLUOROSCOPY TIME: 16 seconds. 1 images saved to PACS. TECHNIQUE: Fluoroscopic and ultrasound guided PICC placement. LIMITATIONS: None. PROCEDURE: After written consent and assessment were obtained, the patient was brought into the fluo roscopy room and place supine on the table. Ultrasound evaluation of potential access sites were perf ormed. After successfully identifying a patent right basilic vein, the right arm was prepped and drap ed in a sterile fashion along with the ultrasound probe. The entry site was anesthetized with 1% lido johny. A 21 gauge 7 cm needle was advanced through the skin and into the basilic vein under live ultr asound guidance. An ultrasound image was saved to PACS confirming access site. A .018 guide wire wa s then inserted through the needle and into the venous system. The needle was the removed and an 11 b lade scalpel was used to make a 1cm skin incision. A 5 fr peel-away sheath was advanced over the wir e and into the venous system. A measurement was then made using the existing wire and live fluoroscop ic guidance. The wire was then removed and the trimmed. The PICC was advanced through the peel-away s urbano and into the venous system. The peel-away sheath was removed and the catheter was adhered to th e patients arm with a stat lock. The catheter was then aspirated and flushed and a sterile bandage wa s placed over the access site. A fluoroscopic spot image was saved to PACS confirming the catheter t ip within the superior vena cava. IMPRESSION: SUCCESSFUL PLACEMENT OF A 5 FR DUAL LUMEN 31 CM PICC IN THE RIGHT BASILIC VEIN. COMMENT: Patient medication list reviewed: Yes- Quality ID# [id number]:Eligible professional attests to doc umenting in the medical record they obtained, updated, or reviewed the patient's current medications. . Quality ID 145: Final reports for procedures using fluoroscopy that document radiation exposure zuhair reina, or exposure time and number of fluorographic images (if radiation exposure indices are not avail able) Quality ID #76: The patient was prepped and draped using maximum sterile barrier technique including cap, mask, sterile gown, sterile gloves, a large sterile sheet, hand hygiene, and 2% Chlorhexidine fo r cutaneous antisepsis. When ultrasound is used, sterile ultrasound techniques are followed requiring sterile gel and sterile probes. TECHNICAL DOCUMENTATION: JOB ID: [id number] [facility]- All Rights Reserved rev-02/10 Reading location - IP/workstation name: [email or web address]
[2018-03-20 14:56] LABS: FLUID APPEARANCE SLIGHTLY HAZY; FLUID COLOR LIGHT YELLOW; FLUID TYPE PLEURAL; FLUID VISCOSITY LIQUID
--- NOTE | 2018-03-20 16:29 | RADIOLOGY REPORT (SQ) ---
EXAM DESCRIPTION: CHEST SINGLE VIEW COMPLETED DATE/TIME: 03/20/2018 4:11 pm REASON FOR STUDY: S/P THORACENTESIS COMPARISON: 03/20/2018 EXAM PARAMETERS: NUMBER OF VIEWS: One view. TECHNIQUE: Single frontal radiographic view of the chest acquired. RADIATION DOSE: NA LIMITATIONS: None. FINDINGS: LUNGS AND PLEURA: No pneumothorax. Moderate left pleural effusion. Small right pleural e ffusion. Mild pulmonary edema. MEDIASTINUM AND HILAR STRUCTURES: No masses. Contour normal. HEART AND VASCULAR STRUCTURES: Heart size borderline. BONES: No acute findings. HARDWARE: Tracheostomy tube. PICC line on the right. OTHER: No other significant finding. IMPRESSION: No pneumothorax status post thoracentesis. Findings as described. TECHNICAL DOCUMENTATION: JOB ID: [id number] [employer]- All Rights Reserved Reading location - IP/workstation name: [email or web address]
--- NOTE | 2018-03-20 16:54 | PDOC PROGRESS REPORT ---
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 ABSENT: nystagmus, periorbital swelling, scleral icterus Mouth exam: PRESENT: dry mucosa, neck supple, tongue midline Teeth exam: PRESENT: poor dentation Neck exam: PRESENT: tracheostomy. ABSENT: carotid bruit, JVD, lymphadenopathy, thyromegaly, tracheal deviation Respiratory exam: PRESENT: decreased breath sounds, prolonged expiratory phas, rales, rhonchi, unlabored. ABSENT: retraction, stridor Cardiovascular exam: PRESENT: RRR, +S1, +S2 Pulses: PRESENT: normal radial pulses GI/Abdominal exam: PRESENT: normal bowel sounds, soft Extremities exam: ABSENT: calf tenderness, clubbing, joint swelling Musculoskeletal exam: ABSENT: ambulatory, deformity, dislocation Neurological exam: PRESENT: awake, oriented to person. ABSENT: oriented to place, oriented to time, oriented to situation Psychiatric exam: PRESENT: flat affect Skin exam: PRESENT: dry, warm Results Laboratory Results: 03/15/18 04:25 03/15/18 04:25 03/07/18 03/07/18 03/08/18 18:07 23:40 05:45 CK-MB (CK-2) 0.66 0.43 0.42 Troponin I 0.053 0.047 0.064 Impressions: Abdomen/Pelvis CT 03/07/18 08:52 IMPRESSION: Dense consolidation in the right lower lobe worrisome for pneumonia. Small parapneumonic effusion. Thick walled gallbladder with stones. Acute cholecystitis may be present Wall thickening and luminal narrowing distal sigmoid colon, worrisome for focal colitis. No adjacent abscess. Abdomen Ultrasound 03/07/18 12:49 IMPRESSION: Findings consistent with multiple gallstones. There is borderline thickening of the gallbladder wall. Other findings as noted above Head CT 03/08/18 00:00 IMPRESSION: 1. CHRONIC MICROVASCULAR ISCHEMIA. NO ACUTE IMAGING FINDINGS IN THE BRAIN. 2. RIGHT SPHENOID SINUS DISEASE. EVIDENCE OF ACUTE STROKE: NO. Chest X-Ray 03/13/18 00:00 IMPRESSION: Moderate right and small left pleural effusions with bibasilar airspace disease, similar compared to 03/08/2018 and 03/07/2018. Assessment & Plan - Diagnosis (1) Acute hypoxemic respiratory failure Is this a current diagnosis for this admission?: Yes Plan: Unchanged (2) Metabolic encephalopathy Is this a current diagnosis for this admission?: Yes Plan: improved (3) Right lower lobe pneumonia Qualifiers: Pneumonia type: aspiration pneumonia Aspiration pneumonia type: unspecified Qualified Code(s): J69.0 - Pneumonitis due to inhalation of food and vomit Is this a current diagnosis for this admission?: Yes Plan: Current chest x-ray WBC remains elevated (4) Sepsis Qualifiers: Sepsis type: sepsis due to unspecified organism Qualified Code(s): A41.9 - Sepsis, unspecified organism Is this a current diagnosis for this admission?: Yes Plan: T Max:99.0 Labs- All tests 24 hr 03/07/18 03/08/18 09:08 05:45 WBC 15.8 H 16.8 H (5) Eosinophilia Is this a current diagnosis for this admission?: Yes
--- NOTE | 2018-03-20 16:56 | PDOC PROGRESS REPORT ---
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 ABSENT: nystagmus, periorbital swelling, scleral icterus Mouth exam: PRESENT: dry mucosa, neck supple, tongue midline Neck exam: PRESENT: tracheostomy. ABSENT: carotid bruit, JVD, lymphadenopathy, thyromegaly, tracheal deviation Respiratory exam: PRESENT: decreased breath sounds, prolonged expiratory phas, rales, rhonchi, unlabored. ABSENT: retraction, stridor Cardiovascular exam: PRESENT: irregular rhythm Pulses: PRESENT: normal radial pulses GI/Abdominal exam: PRESENT: normal bowel sounds, soft Extremities exam: PRESENT: pedal edema. ABSENT: calf tenderness, clubbing, joint swelling Musculoskeletal exam: ABSENT: ambulatory, deformity, dislocation Neurological exam: PRESENT: awake, oriented to person Psychiatric exam: PRESENT: flat affect Focused psych exam: PRESENT: internal stimuli Skin exam: PRESENT: dry, warm Results Laboratory Results: 03/15/18 04:25 03/15/18 04:25 03/07/18 03/07/18 03/08/18 18:07 23:40 05:45 CK-MB (CK-2) 0.66 0.43 0.42 Troponin I 0.053 0.047 0.064 Impressions: Abdomen/Pelvis CT 03/07/18 08:52 IMPRESSION: Dense consolidation in the right lower lobe worrisome for pneumonia. Small parapneumonic effusion. Thick walled gallbladder with stones. Acute cholecystitis may be present Wall thickening and luminal narrowing distal sigmoid colon, worrisome for focal colitis. No adjacent abscess. Abdomen Ultrasound 03/07/18 12:49 IMPRESSION: Findings consistent with multiple gallstones. There is borderline thickening of the gallbladder wall. Other findings as noted above Head CT 03/08/18 00:00 IMPRESSION: 1. CHRONIC MICROVASCULAR ISCHEMIA. NO ACUTE IMAGING FINDINGS IN THE BRAIN. 2. RIGHT SPHENOID SINUS DISEASE. EVIDENCE OF ACUTE STROKE: NO. Chest X-Ray 03/13/18 00:00 IMPRESSION: Moderate right and small left pleural effusions with bibasilar airspace disease, similar compared to 03/08/2018 and 03/07/2018. Assessment & Plan - Diagnosis (1) Acute hypoxemic respiratory failure Is this a current diagnosis for this admission?: Yes Plan: Respiratory alkalosis may be component of anxiety (2) Metabolic encephalopathy Is this a current diagnosis for this admission?: Yes Plan: improved (3) Right lower lobe pneumonia Qualifiers: Pneumonia type: aspiration pneumonia Aspiration pneumonia type: unspecified Qualified Code(s): J69.0 - Pneumonitis due to inhalation of food and vomit Is this a current diagnosis for this admission?: Yes Plan: Current chest x-ray WBC remains elevated (4) Sepsis Qualifiers: Sepsis type: sepsis due to unspecified organism Qualified Code(s): A41.9 - Sepsis, unspecified organism Is this a current diagnosis for this admission?: No (5) Eosinophilia Is this a current diagnosis for this admission?: Yes
--- NOTE | 2018-03-20 16:59 | PDOC PROGRESS REPORT ---
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 ABSENT: nystagmus, periorbital swelling, scleral icterus Mouth exam: PRESENT: dry mucosa, neck supple, tongue midline Teeth exam: PRESENT: poor dentation Neck exam: PRESENT: tracheostomy. ABSENT: carotid bruit, JVD, lymphadenopathy, thyromegaly, tracheal deviation Respiratory exam: PRESENT: decreased breath sounds, prolonged expiratory phas, rhonchi, unlabored. ABSENT: retraction, stridor Cardiovascular exam: PRESENT: irregular rhythm Pulses: PRESENT: normal radial pulses GI/Abdominal exam: PRESENT: normal bowel sounds, soft Extremities exam: PRESENT: pedal edema. ABSENT: calf tenderness, clubbing, joint swelling Musculoskeletal exam: ABSENT: ambulatory, deformity, dislocation Neurological exam: PRESENT: awake, oriented to person. ABSENT: oriented to place, oriented to time, oriented to situation Psychiatric exam: PRESENT: flat affect Focused psych exam: PRESENT: internal stimuli Skin exam: PRESENT: dry, warm Results Laboratory Results: 03/15/18 04:25 03/15/18 04:25 03/07/18 03/07/18 03/08/18 18:07 23:40 05:45 CK-MB (CK-2) 0.66 0.43 0.42 Troponin I 0.053 0.047 0.064 Impressions: Abdomen/Pelvis CT 03/07/18 08:52 IMPRESSION: Dense consolidation in the right lower lobe worrisome for pneumonia. Small parapneumonic effusion. Thick walled gallbladder with stones. Acute cholecystitis may be present Wall thickening and luminal narrowing distal sigmoid colon, worrisome for focal colitis. No adjacent abscess. Abdomen Ultrasound 03/07/18 12:49 IMPRESSION: Findings consistent with multiple gallstones. There is borderline thickening of the gallbladder wall. Other findings as noted above Head CT 03/08/18 00:00 IMPRESSION: 1. CHRONIC MICROVASCULAR ISCHEMIA. NO ACUTE IMAGING FINDINGS IN THE BRAIN. 2. RIGHT SPHENOID SINUS DISEASE. EVIDENCE OF ACUTE STROKE: NO. Chest X-Ray 03/13/18 00:00 IMPRESSION: Moderate right and small left pleural effusions with bibasilar airspace disease, similar compared to 03/08/2018 and 03/07/2018. Assessment & Plan - Diagnosis (1) Acute hypoxemic respiratory failure Is this a current diagnosis for this admission?: Yes Plan: Respiratory alkalosis (2) Metabolic encephalopathy Is this a current diagnosis for this admission?: Yes (3) Right lower lobe pneumonia Qualifiers: Pneumonia type: aspiration pneumonia Aspiration pneumonia type: unspecified Qualified Code(s): J69.0 - Pneumonitis due to inhalation of food and vomit Is this a current diagnosis for this admission?: Yes Plan: Current chest x-ray Right pleural effusiond (4) Sepsis Qualifiers: Sepsis type: sepsis due to unspecified organism Qualified Code(s): A41.9 - Sepsis, unspecified organism Is this a current diagnosis for this admission?: Yes (5) Eosinophilia Is this a current diagnosis for this admission?: Yes
--- NOTE | 2018-03-20 17:02 | PDOC PROGRESS REPORT ---
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 ABSENT: nystagmus, periorbital swelling, scleral icterus Mouth exam: PRESENT: dry mucosa, neck supple, tongue midline Teeth exam: PRESENT: poor dentation Neck exam: PRESENT: tracheostomy. ABSENT: carotid bruit, JVD, lymphadenopathy, thyromegaly, tracheal deviation Respiratory exam: PRESENT: decreased breath sounds, prolonged expiratory phas, rales, rhonchi, unlabored. ABSENT: retraction, stridor Cardiovascular exam: PRESENT: irregular rhythm Pulses: PRESENT: normal radial pulses GI/Abdominal exam: PRESENT: normal bowel sounds, soft Extremities exam: PRESENT: pedal edema. ABSENT: calf tenderness, clubbing, joint swelling Musculoskeletal exam: ABSENT: ambulatory, deformity, dislocation Neurological exam: PRESENT: awake, oriented to person Psychiatric exam: PRESENT: flat affect Focused psych exam: PRESENT: internal stimuli Skin exam: PRESENT: dry, warm Results Laboratory Results: 03/20/18 04:30 03/20/18 04:30 03/19/18 03/20/18 03/20/18 18:06 04:30 04:30 WBC 12.8 H RBC 2.83 L Hgb 7.1 L Hct 22.8 L MCV 81 MCH 25.2 L MCHC 31.3 L RDW 19.2 H Plt Count 274 Seg Neutrophils % 58.5 Lymphocytes % 23.6 Monocytes % 9.0 Eosinophils % 7.5 H Basophils % 1.4 Absolute Neutrophils 7.0 Absolute Lymphocytes 2.9 Absolute Monocytes 1.1 Absolute Eosinophils 0.9 H Absolute Basophils 0.2 Sodium 145.3 H Potassium 4.3 Chloride 110 H Carbon Dioxide 26 Anion Gap 9 BUN 41 H Creatinine 0.82 0.88 Est GFR ( Amer) > 60 > 60 Est GFR (Non-Af Amer) > 60 > 60 Glucose 131 H Calcium 10.3 H Fluid Type Fluid Source Fluid Color Fluid Appearance Fluid Viscosity Fluid WBC Fluid RBC 03/20/18 13:38 WBC RBC Hgb Hct MCV MCH MCHC RDW Plt Count Seg Neutrophils % Lymphocytes % Monocytes % Eosinophils % Basophils % Absolute Neutrophils Absolute Lymphocytes Absolute Monocytes Absolute Eosinophils Absolute Basophils Sodium Potassium Chloride Carbon Dioxide Anion Gap BUN Creatinine Est GFR ( Amer) Est GFR (Non-Af Amer) Glucose Calcium Fluid Type PLEURAL Fluid Source Fluid Color LIGHT YELLOW Fluid Appearance SLIGHTLY HAZY Fluid Viscosity LIQUID Fluid WBC 710 Fluid RBC 3745 03/07/18 03/07/18 03/08/18 18:07 23:40 05:45 CK-MB (CK-2) 0.66 0.43 0.42 Troponin I 0.053 0.047 0.064 Impressions: Abdomen/Pelvis CT 03/07/18 08:52 IMPRESSION: Dense consolidation in the right lower lobe worrisome for pneumonia. Small parapneumonic effusion. Thick walled gallbladder with stones. Acute cholecystitis may be present Wall thickening and luminal narrowing distal sigmoid colon, worrisome for focal colitis. No adjacent abscess. Abdomen Ultrasound 03/07/18 12:49 IMPRESSION: Findings consistent with multiple gallstones. There is borderline thickening of the gallbladder wall. Other findings as noted above Head CT 03/08/18 00:00 IMPRESSION: 1. CHRONIC MICROVASCULAR ISCHEMIA. NO ACUTE IMAGING FINDINGS IN THE BRAIN. 2. RIGHT SPHENOID SINUS DISEASE. EVIDENCE OF ACUTE STROKE: NO. Guidance Fluoroscopy 03/20/18 00:00 IMPRESSION: SUCCESSFUL PLACEMENT OF A 5 FR DUAL LUMEN 31 CM PICC IN THE RIGHT BASILIC VEIN. Interventional Vascular Procedure 03/20/18 00:00 IMPRESSION: SUCCESSFUL PLACEMENT OF A 5 FR DUAL LUMEN 31 CM PICC IN THE RIGHT BASILIC VEIN. PICC Line Insertion 03/20/18 11:59 IMPRESSION: SUCCESSFUL PLACEMENT OF A 5 FR DUAL LUMEN 31 CM PICC IN THE RIGHT BASILIC VEIN. Thoracentesis Ultrasound 03/20/18 13:53 IMPRESSION: SUCCESSFUL THORACENTESIS USING ULTRASOUND GUIDANCE. Chest X-Ray 03/20/18 16:00 IMPRESSION: No pneumothorax status post thoracentesis. Findings as described. Assessment & Plan - Diagnosis (1) Acute hypoxemic respiratory failure Is this a current diagnosis for this admission?: Yes Plan: Scheduled for thoracentesis (2) Metabolic encephalopathy Is this a current diagnosis for this admission?: Yes Plan: improved (3) Right lower lobe pneumonia Qualifiers: Pneumonia type: aspiration pneumonia Aspiration pneumonia type: unspecified Qualified Code(s): J69.0 - Pneumonitis due to inhalation of food and vomit Is this a current diagnosis for this admission?: Yes Plan: Current chest x-ray Right pleural effusiond (4) Sepsis Qualifiers: Sepsis type: sepsis due to unspecified organism Qualified Code(s): A41.9 - Sepsis, unspecified organism Is this a current diagnosis for this admission?: Yes (5) Eosinophilia Is this a current diagnosis for this admission?: Yes
--- NOTE | 2018-03-20 17:04 | PDOC PROGRESS REPORT ---
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 ABSENT: nystagmus, periorbital swelling, scleral icterus Mouth exam: PRESENT: dry mucosa, neck supple, tongue midline Neck exam: PRESENT: tracheostomy. ABSENT: carotid bruit, JVD, lymphadenopathy, thyromegaly, tracheal deviation Respiratory exam: PRESENT: decreased breath sounds, prolonged expiratory phas, rales, rhonchi, unlabored. ABSENT: retraction, stridor Cardiovascular exam: PRESENT: irregular rhythm Pulses: PRESENT: normal radial pulses GI/Abdominal exam: PRESENT: normal bowel sounds, soft Extremities exam: PRESENT: pedal edema. ABSENT: calf tenderness, clubbing, joint swelling Musculoskeletal exam: ABSENT: ambulatory, deformity, dislocation Neurological exam: PRESENT: awake, oriented to person. ABSENT: oriented to place, oriented to time, oriented to situation Psychiatric exam: PRESENT: flat affect Focused psych exam: PRESENT: internal stimuli Skin exam: PRESENT: dry, warm Results Laboratory Results: 03/20/18 04:30 03/20/18 04:30 03/19/18 03/20/18 03/20/18 18:06 04:30 04:30 WBC 12.8 H RBC 2.83 L Hgb 7.1 L Hct 22.8 L MCV 81 MCH 25.2 L MCHC 31.3 L RDW 19.2 H Plt Count 274 Seg Neutrophils % 58.5 Lymphocytes % 23.6 Monocytes % 9.0 Eosinophils % 7.5 H Basophils % 1.4 Absolute Neutrophils 7.0 Absolute Lymphocytes 2.9 Absolute Monocytes 1.1 Absolute Eosinophils 0.9 H Absolute Basophils 0.2 Sodium 145.3 H Potassium 4.3 Chloride 110 H Carbon Dioxide 26 Anion Gap 9 BUN 41 H Creatinine 0.82 0.88 Est GFR ( Amer) > 60 > 60 Est GFR (Non-Af Amer) > 60 > 60 Glucose 131 H Calcium 10.3 H Fluid Type Fluid Source Fluid Color Fluid Appearance Fluid Viscosity Fluid WBC Fluid RBC 03/20/18 13:38 WBC RBC Hgb Hct MCV MCH MCHC RDW Plt Count Seg Neutrophils % Lymphocytes % Monocytes % Eosinophils % Basophils % Absolute Neutrophils Absolute Lymphocytes Absolute Monocytes Absolute Eosinophils Absolute Basophils Sodium Potassium Chloride Carbon Dioxide Anion Gap BUN Creatinine Est GFR ( Amer) Est GFR (Non-Af Amer) Glucose Calcium Fluid Type PLEURAL Fluid Source Fluid Color LIGHT YELLOW Fluid Appearance SLIGHTLY HAZY Fluid Viscosity LIQUID Fluid WBC 710 Fluid RBC 3745 03/07/18 03/07/18 03/08/18 18:07 23:40 05:45 CK-MB (CK-2) 0.66 0.43 0.42 Troponin I 0.053 0.047 0.064 Impressions: Abdomen/Pelvis CT 03/07/18 08:52 IMPRESSION: Dense consolidation in the right lower lobe worrisome for pneumonia. Small parapneumonic effusion. Thick walled gallbladder with stones. Acute cholecystitis may be present Wall thickening and luminal narrowing distal sigmoid colon, worrisome for focal colitis. No adjacent abscess. Abdomen Ultrasound 03/07/18 12:49 IMPRESSION: Findings consistent with multiple gallstones. There is borderline thickening of the gallbladder wall. Other findings as noted above Head CT 03/08/18 00:00 IMPRESSION: 1. CHRONIC MICROVASCULAR ISCHEMIA. NO ACUTE IMAGING FINDINGS IN THE BRAIN. 2. RIGHT SPHENOID SINUS DISEASE. EVIDENCE OF ACUTE STROKE: NO. Guidance Fluoroscopy 03/20/18 00:00 IMPRESSION: SUCCESSFUL PLACEMENT OF A 5 FR DUAL LUMEN 31 CM PICC IN THE RIGHT BASILIC VEIN. Interventional Vascular Procedure 03/20/18 00:00 IMPRESSION: SUCCESSFUL PLACEMENT OF A 5 FR DUAL LUMEN 31 CM PICC IN THE RIGHT BASILIC VEIN. PICC Line Insertion 03/20/18 11:59 IMPRESSION: SUCCESSFUL PLACEMENT OF A 5 FR DUAL LUMEN 31 CM PICC IN THE RIGHT BASILIC VEIN. Thoracentesis Ultrasound 03/20/18 13:53 IMPRESSION: SUCCESSFUL THORACENTESIS USING ULTRASOUND GUIDANCE. Chest X-Ray 06/25/18 16:00 IMPRESSION: No pneumothorax status post thoracentesis. Findings as described. Assessment & Plan - Diagnosis (1) Acute hypoxemic respiratory failure Is this a current diagnosis for this admission?: Yes Plan: Thoracentesis today (2) Metabolic encephalopathy Is this a current diagnosis for this admission?: Yes Plan: improved (3) Right lower lobe pneumonia Qualifiers: Pneumonia type: aspiration pneumonia Aspiration pneumonia type: unspecified Qualified Code(s): J69.0 - Pneumonitis due to inhalation of food and vomit Is this a current diagnosis for this admission?: Yes Plan: Will receive PICC line for additional antibiotic therapy (4) Sepsis Qualifiers: Sepsis type: sepsis due to unspecified organism Qualified Code(s): A41.9 - Sepsis, unspecified organism Is this a current diagnosis for this admission?: Yes (5) Eosinophilia Is this a current diagnosis for this admission?: Yes
--- NOTE | 2018-03-20 20:14 | PDOC PROGRESS REPORT ---
Subjective Progress Note for:: 03/20/18 Subjective:: Patient was seen by the bedside she underwent thoracentesis today, 700 cc of pleural fluid was obtained, the results of the pleural fluid analysis is pending , she also had a PICC line, she is essentially dependent on mechanical ventilation. Patient prognosis remains very poor, family refused to make her DNR despite multiple counseling about her conditions, for the last 2 years she is nonambulatory essentially bedbound with multiple hospitalization in both the local hospital at [facility] and also at [facility] Reason For Visit: VENTILATOR ASSOCIATED PNEUMONIA,CHRONIC Physical Exam Vital Signs: Temp Pulse Resp BP Pulse Ox 98.8 F 86 20 136/74 H 92 03/20/18 15:20 03/20/18 19:30 03/20/18 19:30 03/20/18 15:20 03/20/18 19:30 Intake & Output 03/19/18 03/20/18 03/21/18 06:59 06:59 06:59 Intake Total 2469 1392 713 Output Total 1200 600 600 Balance 1269 792 113 Weight 92.1 kg 92.5 kg General appearance: PRESENT: no acute distress Eye exam: PRESENT: PERRLA Respiratory exam: PRESENT: chest wall tenderness Cardiovascular exam: PRESENT: +S1, +S2 GI/Abdominal exam: PRESENT: soft Neurological exam: PRESENT: alert Results Laboratory Results: 03/20/18 04:30 03/20/18 04:30 03/20/18 03/20/18 03/20/18 04:30 04:30 13:38 WBC 12.8 H RBC 2.83 L Hgb 7.1 L Hct 22.8 L MCV 81 MCH 25.2 L MCHC 31.3 L RDW 19.2 H Plt Count 274 Seg Neutrophils % 58.5 Lymphocytes % 23.6 Monocytes % 9.0 Eosinophils % 7.5 H Basophils % 1.4 Absolute Neutrophils 7.0 Absolute Lymphocytes 2.9 Absolute Monocytes 1.1 Absolute Eosinophils 0.9 H Absolute Basophils 0.2 Sodium 145.3 H Potassium 4.3 Chloride 110 H Carbon Dioxide 26 Anion Gap 9 BUN 41 H Creatinine 0.88 Est GFR ( Amer) > 60 Est GFR (Non-Af Amer) > 60 Glucose 131 H Calcium 10.3 H Fluid Type PLEURAL Fluid Source Fluid Color LIGHT YELLOW Fluid Appearance SLIGHTLY HAZY Fluid Viscosity LIQUID Fluid WBC 710 Fluid RBC 3745 06/12/18 06/12/18 06/13/18 18:07 23:40 05:45 CK-MB (CK-2) 0.66 0.43 0.42 Troponin I 0.053 0.047 0.064 Impressions: Abdomen/Pelvis CT 03/07/18 08:52 IMPRESSION: Dense consolidation in the right lower lobe worrisome for pneumonia. Small parapneumonic effusion. Thick walled gallbladder with stones. Acute cholecystitis may be present Wall thickening and luminal narrowing distal sigmoid colon, worrisome for focal colitis. No adjacent abscess. Abdomen Ultrasound 03/07/18 12:49 IMPRESSION: Findings consistent with multiple gallstones. There is borderline thickening of the gallbladder wall. Other findings as noted above Head CT 03/08/18 00:00 IMPRESSION: 1. CHRONIC MICROVASCULAR ISCHEMIA. NO ACUTE IMAGING FINDINGS IN THE BRAIN. 2. RIGHT SPHENOID SINUS DISEASE. EVIDENCE OF ACUTE STROKE: NO. Guidance Fluoroscopy 03/20/18 00:00 IMPRESSION: SUCCESSFUL PLACEMENT OF A 5 FR DUAL LUMEN 31 CM PICC IN THE RIGHT BASILIC VEIN. Interventional Vascular Procedure 03/20/18 00:00 IMPRESSION: SUCCESSFUL PLACEMENT OF A 5 FR DUAL LUMEN 31 CM PICC IN THE RIGHT BASILIC VEIN. PICC Line Insertion 03/20/18 11:59 IMPRESSION: SUCCESSFUL PLACEMENT OF A 5 FR DUAL LUMEN 31 CM PICC IN THE RIGHT BASILIC VEIN. Thoracentesis Ultrasound 03/20/18 13:53 IMPRESSION: SUCCESSFUL THORACENTESIS USING ULTRASOUND GUIDANCE. Chest X-Ray 03/20/18 16:00 IMPRESSION: No pneumothorax status post thoracentesis. Findings as described. Assessment & Plan - Diagnosis (1) Acute hypoxemic respiratory failure Is this a current diagnosis for this admission?: Yes (2) Right lower lobe pneumonia Qualifiers: Pneumonia type: aspiration pneumonia Aspiration pneumonia type: unspecified Qualified Code(s): J69.0 - Pneumonitis due to inhalation of food and vomit Is this a current diagnosis for this admission?: Yes (3) Ventilator associated pneumonia Is this a current diagnosis for this admission?: Yes (4) Acute calculous cholecystitis Is this a current diagnosis for this admission?: Yes (5) Urinary tract infection associated with indwelling urethral catheter Qualifiers: Encounter type: initial encounter Qualified Code(s): T83.511A - Infection and inflammatory reaction due to indwelling urethral catheter, initial encounter ; N39.0 - Urinary tract infection, site not specified; N39.0 - Urinary tract infection, site not specified Is this a current diagnosis for this admission?: Yes (6) Metabolic encephalopathy Is this a current diagnosis for this admission?: Yes (7) Debilitated patient Is this a current diagnosis for this admission?: Yes (8) Primary hyperparathyroidism Is this a current diagnosis for this admission?: Yes (9) Urinary tract infection due to Enterococcus Is this a current diagnosis for this admission?: Yes - Plan Summary Plan Summary: Consultation will be obtained from discharge planning to arrange for a skilled long-term care facility with capacity to take care of vent dependent patient
[2018-03-20] MEDS: NORMAL SALINE 10 ML SDV (SCHEDULED) IV SCH (22:10)
[2018-03-21] MEDS: IPRATROPIUM/ALBUTEROL 0.5-2.5 MG/3 ML AMPUL NEB SCH ×4 (01:44→19:34)
[2018-03-21] MEDS: PIPERACILLIN SODIUM/TAZOBACTAM 3.375 GM in NORMAL SALINE 100 ML IV SCH ×4 (02:18→21:25)
[2018-03-21] MEDS: NORMAL SALINE 10 ML SDV (AFTER EACH USE) IV PRN (03:50)
[2018-03-21] MEDS: HEPARIN SOD (PORCINE) 5,000 UNIT/ML 1 ML SYRINGE SUBCUT SCH ×3 (05:58→22:43)
[2018-03-21] MEDS: ACETYLCYSTEINE 20% SOLN 800 MG/4 ML VIAL.NEB NEB SCH ×2 (07:50→19:34)
[2018-03-21] MEDS: AMLODIPINE BESYLATE 10 MG TABLET PEG SCH (09:16)
[2018-03-21] MEDS: FUROSEMIDE INJ/PF 40 MG/4 ML SDV IV SCH (09:17)
[2018-03-21] MEDS: MEMANTINE HCL 10 MG TABLET PEG SCH (09:17)
[2018-03-21] MEDS: LACTOBACILLUS ACIDOPHILUS 250 MG TAB PEG SCH (09:17)
[2018-03-21] MEDS: ASPIRIN 81 MG TABLET, CHEWABLE PEG SCH (09:17)
[2018-03-21] MEDS: ASCORBIC ACID 500 MG TABLET PEG SCH (09:17)
[2018-03-21] MEDS: INSULIN DETEMIR 100 UNIT/ML 3 ML PEN SUBCUT SCH (09:19)
[2018-03-21] MEDS: NORMAL SALINE 10 ML SDV (SCHEDULED) IV SCH ×2 (09:20→22:37)
[2018-03-21 14:35] LABS: ABSOLUTE BASOPHILS # (AUTO) 0.1 10^3/uL (0.0-0.2); ABSOLUTE LYMPHOCYTES (AUTO) 2.1 10^3/uL (0.5-4.7); ABSOLUTE MONOCYTES (AUTO) 0.9 10^3/uL (0.1-1.4); ABSOLUTE NEUT (AUTO) 6.1 10^3/uL (1.7-8.2); BASOPHILS % (AUTO) 1.2 % (0-2); EOSINOPHILS % (AUTO) 9.9 % (0-6); HEMATOCRIT 23.3 % (36.0-47.0); LYMPHOCYTES % (AUTO) 20.3 % (13-45); MEAN CORPUSCULAR HEMOGLOBIN 24.8 pg (27.0-33.4); MEAN CORPUSCULAR HGB CONC 30.4 g/dL (32.0-36.0); MEAN CORPUSCULAR VOLUME 82 fl (80-97); MONOCYTES % (AUTO) 8.6 % (3-13); PLATELET COUNT 336 10^3/uL (150-450); RED BLOOD COUNT 2.85 10^6/uL (3.72-5.28); RED CELL DISTRIBUTION WIDTH 19.2 % (11.5-14.0); TOTAL CELLS COUNTED % (AUTO) 100 %; WHITE BLOOD COUNT 10.2 10^3/uL (4.0-10.5)
[2018-03-21 14:39] LABS: HEMOGLOBIN 7.1 g/dL (12.0-15.5)
[2018-03-21 14:57] LABS: ALANINE AMINOTRANSFERASE 21 U/L (9-52); ALBUMIN 3.1 g/dL (3.5-5.0); ALKALINE PHOSPHATASE 122 U/L (38-126); ANION GAP 10 (5-19); ASPARTATE AMINO TRANSFERASE 20 U/L (14-36); BILIRUBIN,DIRECT 0.3 mg/dL (0.0-0.4); BILIRUBIN,TOTAL 0.3 mg/dL (0.2-1.3); BLOOD UREA NITROGEN 39 mg/dL (7-20); CALCIUM 10.4 mg/dL (8.4-10.2); CARBON DIOXIDE 30 mmol/L (22-30); CHLORIDE 109 mmol/L (98-107); GLUCOSE 153 mg/dL (75-110); POTASSIUM 4.5 mmol/L (3.6-5.0); SODIUM 149.2 mmol/L (137-145); TOTAL PROTEIN 6.8 g/dL (6.3-8.2)
[2018-03-21] MEDS: VANCOMYCIN HCL 750 MG in DEXTROSE 5%-WATER 250 ML IV SCH (18:50)
--- NOTE | 2018-03-21 20:38 | PDOC PROGRESS REPORT ---
Subjective Progress Note for:: 03/21/18 Subjective:: Patient was seen by the bedside discussed with daughter about disposition, she does not want patient transferred to a penitentiary home for rehabilitation she be discharged to home when ready for discharge Reason For Visit: VENTILATOR ASSOCIATED PNEUMONIA,CHRONIC Physical Exam Vital Signs: Temp Pulse Resp BP Pulse Ox 98.8 F 76 17 127/70 H 96 03/21/18 15:20 03/21/18 19:33 03/21/18 19:33 03/21/18 15:20 03/21/18 19:33 Intake & Output 03/20/18 03/21/18 03/22/18 06:59 06:59 06:59 Intake Total 1392 1520 822 Output Total 600 1000 537 Balance 792 520 285 Weight 92.5 kg 93.1 kg General appearance: PRESENT: no acute distress Eye exam: PRESENT: PERRLA Respiratory exam: PRESENT: crackles Cardiovascular exam: PRESENT: +S1, +S2 GI/Abdominal exam: PRESENT: soft Neurological exam: PRESENT: alert, CN II-XII grossly intact Results Laboratory Results: 03/21/18 14:05 03/21/18 14:05 03/21/18 03/21/18 14:05 14:05 WBC 10.2 RBC 2.85 L Hgb 7.1 L Hct 23.3 L MCV 82 MCH 24.8 L MCHC 30.4 L RDW 19.2 H Plt Count 336 Seg Neutrophils % 60.0 Lymphocytes % 20.3 Monocytes % 8.6 Eosinophils % 9.9 H Basophils % 1.2 Absolute Neutrophils 6.1 Absolute Lymphocytes 2.1 Absolute Monocytes 0.9 Absolute Eosinophils 1.0 H Absolute Basophils 0.1 Sodium 149.2 H Potassium 4.5 Chloride 109 H Carbon Dioxide 30 Anion Gap 10 BUN 39 H Creatinine 0.94 Est GFR ( Amer) > 60 Est GFR (Non-Af Amer) 57 L Glucose 153 H Calcium 10.4 H Total Bilirubin 0.3 AST 20 ALT 21 Alkaline Phosphatase 122 Total Protein 6.8 Albumin 3.1 L 03/07/18 03/07/18 03/08/18 18:07 23:40 05:45 CK-MB (CK-2) 0.66 0.43 0.42 Troponin I 0.053 0.047 0.064 Impressions: Abdomen/Pelvis CT 03/07/18 08:52 IMPRESSION: Dense consolidation in the right lower lobe worrisome for pneumonia. Small parapneumonic effusion. Thick walled gallbladder with stones. Acute cholecystitis may be present Wall thickening and luminal narrowing distal sigmoid colon, worrisome for focal colitis. No adjacent abscess. Abdomen Ultrasound 03/07/18 12:49 IMPRESSION: Findings consistent with multiple gallstones. There is borderline thickening of the gallbladder wall. Other findings as noted above Head CT 03/08/18 00:00 IMPRESSION: 1. CHRONIC MICROVASCULAR ISCHEMIA. NO ACUTE IMAGING FINDINGS IN THE BRAIN. 2. RIGHT SPHENOID SINUS DISEASE. EVIDENCE OF ACUTE STROKE: NO. Guidance Fluoroscopy 03/20/18 00:00 IMPRESSION: SUCCESSFUL PLACEMENT OF A 5 FR DUAL LUMEN 31 CM PICC IN THE RIGHT BASILIC VEIN. Interventional Vascular Procedure 03/20/18 00:00 IMPRESSION: SUCCESSFUL PLACEMENT OF A 5 FR DUAL LUMEN 31 CM PICC IN THE RIGHT BASILIC VEIN. PICC Line Insertion 03/20/18 11:59 IMPRESSION: SUCCESSFUL PLACEMENT OF A 5 FR DUAL LUMEN 31 CM PICC IN THE RIGHT BASILIC VEIN. Thoracentesis Ultrasound 03/20/18 13:53 IMPRESSION: SUCCESSFUL THORACENTESIS USING ULTRASOUND GUIDANCE. Chest X-Ray 03/20/18 16:00 IMPRESSION: No pneumothorax status post thoracentesis. Findings as described. Assessment & Plan - Diagnosis (1) Acute hypoxemic respiratory failure Is this a current diagnosis for this admission?: Yes (2) Right lower lobe pneumonia Qualifiers: Pneumonia type: aspiration pneumonia Aspiration pneumonia type: unspecified Qualified Code(s): J69.0 - Pneumonitis due to inhalation of food and vomit Is this a current diagnosis for this admission?: Yes (3) Ventilator associated pneumonia Is this a current diagnosis for this admission?: Yes (4) Acute calculous cholecystitis Is this a current diagnosis for this admission?: Yes (5) Urinary tract infection associated with indwelling urethral catheter Qualifiers: Encounter type: initial encounter Qualified Code(s): T83.511A - Infection and inflammatory reaction due to indwelling urethral catheter, initial encounter ; N39.0 - Urinary tract infection, site not specified; N39.0 - Urinary tract infection, site not specified Is this a current diagnosis for this admission?: Yes (6) Metabolic encephalopathy Is this a current diagnosis for this admission?: Yes (7) Debilitated patient Is this a current diagnosis for this admission?: Yes (8) Primary hyperparathyroidism Is this a current diagnosis for this admission?: Yes (9) Urinary tract infection due to Enterococcus Is this a current diagnosis for this admission?: Yes
[2018-03-22] MEDS: IPRATROPIUM/ALBUTEROL 0.5-2.5 MG/3 ML AMPUL NEB SCH ×4 (01:40→19:59)
[2018-03-22] MEDS: PIPERACILLIN SODIUM/TAZOBACTAM 3.375 GM in NORMAL SALINE 100 ML IV SCH ×4 (02:45→22:18)
[2018-03-22] MEDS: NORMAL SALINE 10 ML SDV (AFTER EACH USE) IV PRN (04:10)
[2018-03-22] MEDS: HEPARIN SOD (PORCINE) 5,000 UNIT/ML 1 ML SYRINGE SUBCUT SCH ×3 (05:33→22:18)
[2018-03-22] MEDS: ACETYLCYSTEINE 20% SOLN 800 MG/4 ML VIAL.NEB NEB SCH ×2 (08:11→19:59)
[2018-03-22] MEDS: ASCORBIC ACID 500 MG TABLET PEG SCH (09:59)
[2018-03-22] MEDS: AMLODIPINE BESYLATE 10 MG TABLET PEG SCH (09:59)
[2018-03-22] MEDS: MEMANTINE HCL 10 MG TABLET PEG SCH (10:00)
[2018-03-22] MEDS: NORMAL SALINE 10 ML SDV (SCHEDULED) IV SCH ×2 (10:00→22:18)
[2018-03-22] MEDS: LACTOBACILLUS ACIDOPHILUS 250 MG TAB PEG SCH (10:00)
[2018-03-22] MEDS: ASPIRIN 81 MG TABLET, CHEWABLE PEG SCH (10:00)
[2018-03-22] MEDS: INSULIN DETEMIR 100 UNIT/ML 3 ML PEN SUBCUT SCH (10:00)
[2018-03-22] MEDS: FUROSEMIDE INJ/PF 40 MG/4 ML SDV IV SCH (10:00)
[2018-03-22] MEDS ORDERED: NORMAL SALINE 250 ML with FUROSEMIDE 250 MG IV PRN ×2 (14:35)
--- NOTE | 2018-03-22 17:45 | PDOC PROGRESS REPORT ---
Subjective Progress Note for:: 03/22/18 Subjective:: She is volume overloaded, she is third spacing, will treat with furosemide infusion Reason For Visit: VENTILATOR ASSOCIATED PNEUMONIA,CHRONIC Physical Exam Vital Signs: Temp Pulse Resp BP Pulse Ox 99.4 F 81 20 123/62 100 03/22/18 15:24 03/22/18 15:24 03/22/18 15:24 03/22/18 15:24 03/22/18 15:24 Intake & Output 03/21/18 03/22/18 03/23/18 06:59 06:59 06:59 Intake Total 1520 1948 120 Output Total 1000 837 500 Balance 520 1111 -380 Weight 93.1 kg 93.7 kg General appearance: PRESENT: no acute distress Eye exam: PRESENT: PERRLA Respiratory exam: PRESENT: clear to auscultation monica Cardiovascular exam: PRESENT: +S1, +S2 GI/Abdominal exam: PRESENT: soft Neurological exam: PRESENT: alert Results Laboratory Results: 03/21/18 14:05 03/21/18 14:05 03/20/18 03/20/18 03/20/18 13:38 13:38 13:38 Fluid Glucose 177 Fluid Total Protein 3.7 Fluid LDH 111 03/20/18 13:38 Ascities Fluid Gram Stain - Final 03/20/18 13:38 Abdomen - Not Specified Fungal Smear - Final 03/20/18 13:38 Abdomen - Not Specified Fungal Smear - Final 03/20/18 13:38 Abdomen - Not Specified AFB Smear Concentration - Final 03/20/18 13:38 Abdomen - Not Specified Acid Fast Bacilli Smear - Final 03/07/18 03/07/18 03/08/18 18:07 23:40 05:45 CK-MB (CK-2) 0.66 0.43 0.42 Troponin I 0.053 0.047 0.064 Impressions: Abdomen/Pelvis CT 03/07/18 08:52 IMPRESSION: Dense consolidation in the right lower lobe worrisome for pneumonia. Small parapneumonic effusion. Thick walled gallbladder with stones. Acute cholecystitis may be present Wall thickening and luminal narrowing distal sigmoid colon, worrisome for focal colitis. No adjacent abscess. Abdomen Ultrasound 03/07/18 12:49 IMPRESSION: Findings consistent with multiple gallstones. There is borderline thickening of the gallbladder wall. Other findings as noted above Head CT 03/08/18 00:00 IMPRESSION: 1. CHRONIC MICROVASCULAR ISCHEMIA. NO ACUTE IMAGING FINDINGS IN THE BRAIN. 2. RIGHT SPHENOID SINUS DISEASE. EVIDENCE OF ACUTE STROKE: NO. Guidance Fluoroscopy 03/20/18 00:00 IMPRESSION: SUCCESSFUL PLACEMENT OF A 5 FR DUAL LUMEN 31 CM PICC IN THE RIGHT BASILIC VEIN. Interventional Vascular Procedure 03/20/18 00:00 IMPRESSION: SUCCESSFUL PLACEMENT OF A 5 FR DUAL LUMEN 31 CM PICC IN THE RIGHT BASILIC VEIN. PICC Line Insertion 03/20/18 11:59 IMPRESSION: SUCCESSFUL PLACEMENT OF A 5 FR DUAL LUMEN 31 CM PICC IN THE RIGHT BASILIC VEIN. Thoracentesis Ultrasound 03/20/18 13:53 IMPRESSION: SUCCESSFUL THORACENTESIS USING ULTRASOUND GUIDANCE. Chest X-Ray 03/20/18 16:00 IMPRESSION: No pneumothorax status post thoracentesis. Findings as described. Assessment & Plan - Diagnosis (1) Acute hypoxemic respiratory failure Is this a current diagnosis for this admission?: Yes (2) Right lower lobe pneumonia Qualifiers: Pneumonia type: aspiration pneumonia Aspiration pneumonia type: unspecified Qualified Code(s): J69.0 - Pneumonitis due to inhalation of food and vomit Is this a current diagnosis for this admission?: Yes (3) Ventilator associated pneumonia Is this a current diagnosis for this admission?: Yes (4) Acute calculous cholecystitis Is this a current diagnosis for this admission?: Yes (5) Urinary tract infection associated with indwelling urethral catheter Qualifiers: Encounter type: initial encounter Qualified Code(s): T83.511A - Infection and inflammatory reaction due to indwelling urethral catheter, initial encounter ; N39.0 - Urinary tract infection, site not specified; N39.0 - Urinary tract infection, site not specified Is this a current diagnosis for this admission?: Yes (6) Metabolic encephalopathy Is this a current diagnosis for this admission?: Yes (7) Debilitated patient Is this a current diagnosis for this admission?: Yes (8) Primary hyperparathyroidism Is this a current diagnosis for this admission?: Yes (9) Urinary tract infection due to Enterococcus Is this a current diagnosis for this admission?: Yes (10) Volume overload Qualifiers: Hypervolemia type: unspecified Qualified Code(s): E87.70 - Fluid overload, unspecified Is this a current diagnosis for this admission?: Yes Plan: Start furosemide infusion for 24 hours
[2018-03-23] MEDS: IPRATROPIUM/ALBUTEROL 0.5-2.5 MG/3 ML AMPUL NEB SCH ×4 (01:57→20:01)
[2018-03-23] MEDS: PIPERACILLIN SODIUM/TAZOBACTAM 3.375 GM in NORMAL SALINE 100 ML IV SCH ×4 (04:16→22:56)
[2018-03-23] MEDS: HEPARIN SOD (PORCINE) 5,000 UNIT/ML 1 ML SYRINGE SUBCUT SCH ×3 (06:21→23:09)
[2018-03-23] MEDS: ACETYLCYSTEINE 20% SOLN 800 MG/4 ML VIAL.NEB NEB SCH ×2 (08:06→20:01)
[2018-03-23] MEDS: ASCORBIC ACID 500 MG TABLET PEG SCH (10:06)
[2018-03-23] MEDS: ASPIRIN 81 MG TABLET, CHEWABLE PEG SCH (10:06)
[2018-03-23] MEDS: LACTOBACILLUS ACIDOPHILUS 250 MG TAB PEG SCH (10:06)
[2018-03-23] MEDS: INSULIN DETEMIR 100 UNIT/ML 3 ML PEN SUBCUT SCH (10:07)
[2018-03-23] MEDS: AMLODIPINE BESYLATE 10 MG TABLET PEG SCH (10:07)
[2018-03-23] MEDS: NORMAL SALINE 10 ML SDV (SCHEDULED) IV SCH ×2 (10:07→23:11)
[2018-03-23] MEDS: MEMANTINE HCL 10 MG TABLET PEG SCH (10:07)
[2018-03-23 10:34] LABS: ABSOLUTE BASOPHILS # (AUTO) 0.1 10^3/uL (0.0-0.2); ABSOLUTE EOSINOPHILS # (AUTO) 1.5 10^3/uL (0.0-0.6); ABSOLUTE LYMPHOCYTES (AUTO) 2.5 10^3/uL (0.5-4.7); ABSOLUTE MONOCYTES (AUTO) 1.1 10^3/uL (0.1-1.4); BASOPHILS % (AUTO) 1.2 % (0-2); EOSINOPHILS % (AUTO) 13.2 % (0-6); HEMATOCRIT 22.7 % (36.0-47.0); LYMPHOCYTES % (AUTO) 22.1 % (13-45); MEAN CORPUSCULAR HEMOGLOBIN 25.2 pg (27.0-33.4); MEAN CORPUSCULAR HGB CONC 31.4 g/dL (32.0-36.0); MEAN CORPUSCULAR VOLUME 80 fl (80-97); MONOCYTES % (AUTO) 9.7 % (3-13); PLATELET COUNT 351 10^3/uL (150-450); RED BLOOD COUNT 2.83 10^6/uL (3.72-5.28); RED CELL DISTRIBUTION WIDTH 19.1 % (11.5-14.0); SEGMENTED NEUTROPHILS % (AUTO) 53.8 % (42-78); TOTAL CELLS COUNTED % (AUTO) 100 %; WHITE BLOOD COUNT 11.1 10^3/uL (4.0-10.5)
[2018-03-23 10:38] LABS: HEMOGLOBIN 7.1 g/dL (12.0-15.5)
[2018-03-23] MEDS: VANCOMYCIN HCL 750 MG in DEXTROSE 5%-WATER 250 ML IV SCH (18:06)
[2018-03-23] MEDS: PHARMACY COMMUNICATION ORDER MC SCH ×2 (18:07)
--- NOTE | 2018-03-23 20:33 | PDOC PROGRESS REPORT ---
Subjective Progress Note for:: 03/23/18 Subjective:: Patient seen by the bedside with family, there is no new complaints, she was diuresed with Lasix infusion Reason For Visit: VENTILATOR ASSOCIATED PNEUMONIA,CHRONIC Physical Exam Vital Signs: Temp Pulse Resp BP Pulse Ox 99.9 F 71 14 143/53 H 99 03/23/18 19:15 03/23/18 19:15 03/23/18 19:15 03/23/18 19:15 03/23/18 19:15 Intake & Output 03/22/18 03/23/18 03/24/18 06:59 06:59 06:59 Intake Total 1948 1531 80 Output Total 837 3100 1500 Balance 6078 -9538 -2092 Weight 93.7 kg 91.2 kg General appearance: PRESENT: no acute distress Eye exam: PRESENT: PERRLA Respiratory exam: PRESENT: clear to auscultation monica Cardiovascular exam: PRESENT: +S1, +S2 GI/Abdominal exam: PRESENT: soft Neurological exam: PRESENT: alert Results Laboratory Results: 03/23/18 10:13 03/21/18 14:05 03/23/18 10:13 WBC 11.1 H RBC 2.83 L Hgb 7.1 L Hct 22.7 L MCV 80 MCH 25.2 L MCHC 31.4 L RDW 19.1 H Plt Count 351 Seg Neutrophils % 53.8 Lymphocytes % 22.1 Monocytes % 9.7 Eosinophils % 13.2 H Basophils % 1.2 Absolute Neutrophils 6.0 Absolute Lymphocytes 2.5 Absolute Monocytes 1.1 Absolute Eosinophils 1.5 H Absolute Basophils 0.1 03/20/18 13:38 Ascities Fluid Gram Stain - Final 03/20/18 13:38 Ascities Fluid Body Fluid Culture - Final NO AEROBIC OR ANAEROBIC ORGANISMS RECOVERED 03/07/18 03/07/18 03/08/18 18:07 23:40 05:45 CK-MB (CK-2) 0.66 0.43 0.42 Troponin I 0.053 0.047 0.064 Impressions: Abdomen/Pelvis CT 03/07/18 08:52 IMPRESSION: Dense consolidation in the right lower lobe worrisome for pneumonia. Small parapneumonic effusion. Thick walled gallbladder with stones. Acute cholecystitis may be present Wall thickening and luminal narrowing distal sigmoid colon, worrisome for focal colitis. No adjacent abscess. Abdomen Ultrasound 03/07/18 12:49 IMPRESSION: Findings consistent with multiple gallstones. There is borderline thickening of the gallbladder wall. Other findings as noted above Head CT 03/08/18 00:00 IMPRESSION: 1. CHRONIC MICROVASCULAR ISCHEMIA. NO ACUTE IMAGING FINDINGS IN THE BRAIN. 2. RIGHT SPHENOID SINUS DISEASE. EVIDENCE OF ACUTE STROKE: NO. Guidance Fluoroscopy 03/20/18 00:00 IMPRESSION: SUCCESSFUL PLACEMENT OF A 5 FR DUAL LUMEN 31 CM PICC IN THE RIGHT BASILIC VEIN. Interventional Vascular Procedure 03/20/18 00:00 IMPRESSION: SUCCESSFUL PLACEMENT OF A 5 FR DUAL LUMEN 31 CM PICC IN THE RIGHT BASILIC VEIN. PICC Line Insertion 03/20/18 11:59 IMPRESSION: SUCCESSFUL PLACEMENT OF A 5 FR DUAL LUMEN 31 CM PICC IN THE RIGHT BASILIC VEIN. Thoracentesis Ultrasound 03/20/18 13:53 IMPRESSION: SUCCESSFUL THORACENTESIS USING ULTRASOUND GUIDANCE. Chest X-Ray 03/20/18 16:00 IMPRESSION: No pneumothorax status post thoracentesis. Findings as described. Assessment & Plan - Diagnosis (1) Acute hypoxemic respiratory failure Is this a current diagnosis for this admission?: Yes (2) Right lower lobe pneumonia Qualifiers: Pneumonia type: aspiration pneumonia Aspiration pneumonia type: unspecified Qualified Code(s): J69.0 - Pneumonitis due to inhalation of food and vomit Is this a current diagnosis for this admission?: Yes (3) Ventilator associated pneumonia Is this a current diagnosis for this admission?: Yes (4) Acute calculous cholecystitis Is this a current diagnosis for this admission?: Yes (5) Urinary tract infection associated with indwelling urethral catheter Qualifiers: Encounter type: initial encounter Qualified Code(s): T83.511A - Infection and inflammatory reaction due to indwelling urethral catheter, initial encounter ; N39.0 - Urinary tract infection, site not specified; N39.0 - Urinary tract infection, site not specified Is this a current diagnosis for this admission?: Yes (6) Metabolic encephalopathy Is this a current diagnosis for this admission?: Yes (7) Debilitated patient Is this a current diagnosis for this admission?: Yes (8) Primary hyperparathyroidism Is this a current diagnosis for this admission?: Yes (9) Urinary tract infection due to Enterococcus Is this a current diagnosis for this admission?: Yes (10) Volume overload Qualifiers: Hypervolemia type: unspecified Qualified Code(s): E87.70 - Fluid overload, unspecified Is this a current diagnosis for this admission?: Yes
[2018-03-24] MEDS: IPRATROPIUM/ALBUTEROL 0.5-2.5 MG/3 ML AMPUL NEB SCH ×4 (02:04→19:54)
[2018-03-24] MEDS: PIPERACILLIN SODIUM/TAZOBACTAM 3.375 GM in NORMAL SALINE 100 ML IV SCH ×4 (02:50→22:28)
[2018-03-24] MEDS: HEPARIN SOD (PORCINE) 5,000 UNIT/ML 1 ML SYRINGE SUBCUT SCH ×3 (05:58→22:30)
[2018-03-24] MEDS: ACETYLCYSTEINE 20% SOLN 800 MG/4 ML VIAL.NEB NEB SCH ×2 (07:44→19:55)
[2018-03-24] MEDS: MEMANTINE HCL 10 MG TABLET PEG SCH (08:44)
[2018-03-24] MEDS: ASCORBIC ACID 500 MG TABLET PEG SCH (08:44)
[2018-03-24] MEDS: LACTOBACILLUS ACIDOPHILUS 250 MG TAB PEG SCH (08:44)
[2018-03-24] MEDS: AMLODIPINE BESYLATE 10 MG TABLET PEG SCH (08:45)
[2018-03-24] MEDS: ASPIRIN 81 MG TABLET, CHEWABLE PEG SCH (08:45)
[2018-03-24] MEDS: NORMAL SALINE 10 ML SDV (SCHEDULED) IV SCH ×2 (08:46→22:29)
[2018-03-24] MEDS: INSULIN DETEMIR 100 UNIT/ML 3 ML PEN SUBCUT SCH (08:48)
[2018-03-24 11:23] LABS: ABSOLUTE BASOPHILS # (AUTO) 0.2 10^3/uL (0.0-0.2); ABSOLUTE EOSINOPHILS # (AUTO) 1.4 10^3/uL (0.0-0.6); ABSOLUTE LYMPHOCYTES (AUTO) 1.9 10^3/uL (0.5-4.7); ABSOLUTE MONOCYTES (AUTO) 0.9 10^3/uL (0.1-1.4); ABSOLUTE NEUT (AUTO) 5.4 10^3/uL (1.7-8.2); BASOPHILS % (AUTO) 2.5 % (0-2); EOSINOPHILS % (AUTO) 14.6 % (0-6); HEMATOCRIT 22.3 % (36.0-47.0); MEAN CORPUSCULAR HEMOGLOBIN 25.6 pg (27.0-33.4); MEAN CORPUSCULAR HGB CONC 31.7 g/dL (32.0-36.0); MEAN CORPUSCULAR VOLUME 81 fl (80-97); MONOCYTES % (AUTO) 9.2 % (3-13); PLATELET COUNT 330 10^3/uL (150-450); RED BLOOD COUNT 2.76 10^6/uL (3.72-5.28); RED CELL DISTRIBUTION WIDTH 19.5 % (11.5-14.0); SEGMENTED NEUTROPHILS % (AUTO) 54.7 % (42-78); TOTAL CELLS COUNTED % (AUTO) 100 %; WHITE BLOOD COUNT 9.9 10^3/uL (4.0-10.5)
[2018-03-24 11:25] LABS: HEMOGLOBIN 7.1 g/dL (12.0-15.5)
[2018-03-24 11:48] LABS: ANION GAP 12 (5-19); BLOOD UREA NITROGEN 35 mg/dL (7-20); CALCIUM 10.2 mg/dL (8.4-10.2); CARBON DIOXIDE 30 mmol/L (22-30); CHLORIDE 107 mmol/L (98-107); GLUCOSE 149 mg/dL (75-110); SODIUM 148.9 mmol/L (137-145)
[2018-03-24] MEDS: PHARMACY COMMUNICATION ORDER MC SCH ×2 (17:27)
--- NOTE | 2018-03-24 20:58 | PDOC PROGRESS REPORT ---
Subjective Progress Note for:: 03/24/18 Subjective:: Patient was seen by the bedside, family now support blood transfusion Reason For Visit: VENTILATOR ASSOCIATED PNEUMONIA,CHRONIC Physical Exam Vital Signs: Temp Pulse Resp BP Pulse Ox 98.5 F 70 14 140/47 H 98 03/24/18 19:19 03/24/18 19:55 03/24/18 19:55 03/24/18 19:19 03/24/18 19:55 Intake & Output 03/23/18 03/24/18 03/25/18 06:59 06:59 06:59 Intake Total 1531 1231 1666 Output Total 3100 2700 1000 Balance -1569 -1469 666 Weight 91.2 kg 198.9 kg General appearance: PRESENT: no acute distress Eye exam: PRESENT: PERRLA Respiratory exam: PRESENT: clear to auscultation monica Cardiovascular exam: PRESENT: +S1, +S2 GI/Abdominal exam: PRESENT: soft Neurological exam: PRESENT: alert Results Laboratory Results: 03/24/18 11:05 03/24/18 11:05 03/24/18 03/24/18 03/24/18 11:05 11:05 14:20 WBC 9.9 RBC 2.76 L Hgb 7.1 L Hct 22.3 L MCV 81 MCH 25.6 L MCHC 31.7 L RDW 19.5 H Plt Count 330 Seg Neutrophils % 54.7 Lymphocytes % 19.0 Monocytes % 9.2 Eosinophils % 14.6 H Basophils % 2.5 H Absolute Neutrophils 5.4 Absolute Lymphocytes 1.9 Absolute Monocytes 0.9 Absolute Eosinophils 1.4 H Absolute Basophils 0.2 Sodium 148.9 H Potassium 4.0 Chloride 107 Carbon Dioxide 30 Anion Gap 12 BUN 35 H Creatinine 1.05 Est GFR ( Amer) > 60 Est GFR (Non-Af Amer) 50 L Glucose 149 H Calcium 10.2 Blood Type A POSITIVE Antibody Screen NEGATIVE 03/07/18 03/07/18 03/08/18 18:07 23:40 05:45 CK-MB (CK-2) 0.66 0.43 0.42 Troponin I 0.053 0.047 0.064 Impressions: Abdomen/Pelvis CT 03/07/18 08:52 IMPRESSION: Dense consolidation in the right lower lobe worrisome for pneumonia. Small parapneumonic effusion. Thick walled gallbladder with stones. Acute cholecystitis may be present Wall thickening and luminal narrowing distal sigmoid colon, worrisome for focal colitis. No adjacent abscess. Abdomen Ultrasound 03/07/18 12:49 IMPRESSION: Findings consistent with multiple gallstones. There is borderline thickening of the gallbladder wall. Other findings as noted above Head CT 03/08/18 00:00 IMPRESSION: 1. CHRONIC MICROVASCULAR ISCHEMIA. NO ACUTE IMAGING FINDINGS IN THE BRAIN. 2. RIGHT SPHENOID SINUS DISEASE. EVIDENCE OF ACUTE STROKE: NO. Guidance Fluoroscopy 03/20/18 00:00 IMPRESSION: SUCCESSFUL PLACEMENT OF A 5 FR DUAL LUMEN 31 CM PICC IN THE RIGHT BASILIC VEIN. Interventional Vascular Procedure 03/20/18 00:00 IMPRESSION: SUCCESSFUL PLACEMENT OF A 5 FR DUAL LUMEN 31 CM PICC IN THE RIGHT BASILIC VEIN. PICC Line Insertion 03/20/18 11:59 IMPRESSION: SUCCESSFUL PLACEMENT OF A 5 FR DUAL LUMEN 31 CM PICC IN THE RIGHT BASILIC VEIN. Thoracentesis Ultrasound 03/20/18 13:53 IMPRESSION: SUCCESSFUL THORACENTESIS USING ULTRASOUND GUIDANCE. Chest X-Ray 03/20/18 16:00 IMPRESSION: No pneumothorax status post thoracentesis. Findings as described. Assessment & Plan - Diagnosis (1) Acute hypoxemic respiratory failure Is this a current diagnosis for this admission?: Yes (2) Right lower lobe pneumonia Qualifiers: Pneumonia type: aspiration pneumonia Aspiration pneumonia type: unspecified Qualified Code(s): J69.0 - Pneumonitis due to inhalation of food and vomit Is this a current diagnosis for this admission?: Yes (3) Ventilator associated pneumonia Is this a current diagnosis for this admission?: Yes (4) Acute calculous cholecystitis Is this a current diagnosis for this admission?: Yes (5) Urinary tract infection associated with indwelling urethral catheter Qualifiers: Encounter type: initial encounter Qualified Code(s): T83.511A - Infection and inflammatory reaction due to indwelling urethral catheter, initial encounter ; N39.0 - Urinary tract infection, site not specified; N39.0 - Urinary tract infection, site not specified Is this a current diagnosis for this admission?: Yes (6) Metabolic encephalopathy Is this a current diagnosis for this admission?: Yes (7) Debilitated patient Is this a current diagnosis for this admission?: Yes (8) Primary hyperparathyroidism Is this a current diagnosis for this admission?: Yes (9) Urinary tract infection due to Enterococcus Is this a current diagnosis for this admission?: Yes (10) Volume overload Qualifiers: Hypervolemia type: unspecified Qualified Code(s): E87.70 - Fluid overload, unspecified Is this a current diagnosis for this admission?: Yes
[2018-03-25] MEDS: IPRATROPIUM/ALBUTEROL 0.5-2.5 MG/3 ML AMPUL NEB SCH ×4 (01:42→19:34)
[2018-03-25] MEDS: PIPERACILLIN SODIUM/TAZOBACTAM 3.375 GM in NORMAL SALINE 100 ML IV SCH ×4 (04:02→22:25)
[2018-03-25] MEDS: HEPARIN SOD (PORCINE) 5,000 UNIT/ML 1 ML SYRINGE SUBCUT SCH ×3 (05:24→22:26)
[2018-03-25] MEDS: ACETYLCYSTEINE 20% SOLN 800 MG/4 ML VIAL.NEB NEB SCH ×2 (07:39→19:34)
[2018-03-25] MEDS: ASCORBIC ACID 500 MG TABLET PEG SCH (08:36)
[2018-03-25] MEDS: MEMANTINE HCL 10 MG TABLET PEG SCH (08:36)
[2018-03-25] MEDS: LACTOBACILLUS ACIDOPHILUS 250 MG TAB PEG SCH (08:36)
[2018-03-25] MEDS: AMLODIPINE BESYLATE 10 MG TABLET PEG SCH (08:36)
[2018-03-25] MEDS: INSULIN DETEMIR 100 UNIT/ML 3 ML PEN SUBCUT SCH (08:38)
[2018-03-25] MEDS: NORMAL SALINE 10 ML SDV (SCHEDULED) IV SCH ×2 (08:38→22:40)
[2018-03-25] MEDS: ASPIRIN 81 MG TABLET, CHEWABLE PEG SCH (08:38)
[2018-03-25 11:43] LABS: ABSOLUTE BASOPHILS # (AUTO) 0.1 10^3/uL (0.0-0.2); ABSOLUTE EOSINOPHILS # (AUTO) 1.5 10^3/uL (0.0-0.6); ABSOLUTE LYMPHOCYTES (AUTO) 2.3 10^3/uL (0.5-4.7); ABSOLUTE MONOCYTES (AUTO) 1.2 10^3/uL (0.1-1.4); ABSOLUTE NEUT (AUTO) 7.4 10^3/uL (1.7-8.2); BASOPHILS % (AUTO) 1.1 % (0-2); EOSINOPHILS % (AUTO) 12.2 % (0-6); HEMATOCRIT 30.6 % (36.0-47.0); LYMPHOCYTES % (AUTO) 18.1 % (13-45); MEAN CORPUSCULAR HEMOGLOBIN 25.7 pg (27.0-33.4); MEAN CORPUSCULAR HGB CONC 31.8 g/dL (32.0-36.0); MEAN CORPUSCULAR VOLUME 81 fl (80-97); MONOCYTES % (AUTO) 9.6 % (3-13); PLATELET COUNT 331 10^3/uL (150-450); RED BLOOD COUNT 3.78 10^6/uL (3.72-5.28); TOTAL CELLS COUNTED % (AUTO) 100 %; WHITE BLOOD COUNT 12.5 10^3/uL (4.0-10.5)
[2018-03-25 11:44] LABS: ANION GAP 12 (5-19); BLOOD UREA NITROGEN 34 mg/dL (7-20); CALCIUM 10.5 mg/dL (8.4-10.2); CARBON DIOXIDE 30 mmol/L (22-30); CHLORIDE 108 mmol/L (98-107); GLUCOSE 114 mg/dL (75-110); HEMOGLOBIN 9.7 g/dL (12.0-15.5); SODIUM 150.3 mmol/L (137-145)
--- NOTE | 2018-03-25 14:35 | PDOC PROGRESS REPORT ---
Subjective Progress Note for:: 03/25/18 Subjective:: Patient seen by the bedside, she was transfused with 2 units of red blood cells Reason For Visit: VENTILATOR ASSOCIATED PNEUMONIA,CHRONIC Physical Exam Vital Signs: Temp Pulse Resp BP Pulse Ox 98.5 F 71 14 151/67 H 99 03/25/18 10:51 03/25/18 13:27 03/25/18 13:27 03/25/18 10:51 03/25/18 13:27 Intake & Output 03/24/18 03/25/18 03/26/18 06:59 06:59 06:59 Intake Total 1231 3489 542 Output Total 2700 1400 350 Balance -1469 2089 192 Weight 198.9 kg 198.7 kg General appearance: PRESENT: no acute distress Eye exam: PRESENT: PERRLA Respiratory exam: PRESENT: clear to auscultation monica Cardiovascular exam: PRESENT: +S1, +S2 GI/Abdominal exam: PRESENT: soft Neurological exam: PRESENT: alert Results Laboratory Results: 03/25/18 10:45 03/25/18 10:45 03/24/18 03/25/18 03/25/18 14:20 10:45 10:45 WBC 12.5 H RBC 3.78 Hgb 9.7 L D Hct 30.6 L MCV 81 MCH 25.7 L MCHC 31.8 L RDW 18.0 H Plt Count 331 Seg Neutrophils % 59.0 Lymphocytes % 18.1 Monocytes % 9.6 Eosinophils % 12.2 H Basophils % 1.1 Absolute Neutrophils 7.4 Absolute Lymphocytes 2.3 Absolute Monocytes 1.2 Absolute Eosinophils 1.5 H Absolute Basophils 0.1 Sodium 150.3 H Potassium 4.0 Chloride 108 H Carbon Dioxide 30 Anion Gap 12 BUN 34 H Creatinine 0.95 Est GFR ( Amer) > 60 Est GFR (Non-Af Amer) 56 L Glucose 114 H Calcium 10.5 H Blood Type A POSITIVE Antibody Screen NEGATIVE 03/07/18 03/07/18 03/08/18 18:07 23:40 05:45 CK-MB (CK-2) 0.66 0.43 0.42 Troponin I 0.053 0.047 0.064 Impressions: Abdomen/Pelvis CT 03/07/18 08:52 IMPRESSION: Dense consolidation in the right lower lobe worrisome for pneumonia. Small parapneumonic effusion. Thick walled gallbladder with stones. Acute cholecystitis may be present Wall thickening and luminal narrowing distal sigmoid colon, worrisome for focal colitis. No adjacent abscess. Abdomen Ultrasound 03/07/18 12:49 IMPRESSION: Findings consistent with multiple gallstones. There is borderline thickening of the gallbladder wall. Other findings as noted above Head CT 03/08/18 00:00 IMPRESSION: 1. CHRONIC MICROVASCULAR ISCHEMIA. NO ACUTE IMAGING FINDINGS IN THE BRAIN. 2. RIGHT SPHENOID SINUS DISEASE. EVIDENCE OF ACUTE STROKE: NO. Guidance Fluoroscopy 03/20/18 00:00 IMPRESSION: SUCCESSFUL PLACEMENT OF A 5 FR DUAL LUMEN 31 CM PICC IN THE RIGHT BASILIC VEIN. Interventional Vascular Procedure 03/20/18 00:00 IMPRESSION: SUCCESSFUL PLACEMENT OF A 5 FR DUAL LUMEN 31 CM PICC IN THE RIGHT BASILIC VEIN. PICC Line Insertion 03/20/18 11:59 IMPRESSION: SUCCESSFUL PLACEMENT OF A 5 FR DUAL LUMEN 31 CM PICC IN THE RIGHT BASILIC VEIN. Thoracentesis Ultrasound 03/20/18 13:53 IMPRESSION: SUCCESSFUL THORACENTESIS USING ULTRASOUND GUIDANCE. Chest X-Ray 03/20/18 16:00 IMPRESSION: No pneumothorax status post thoracentesis. Findings as described. Assessment & Plan - Diagnosis (1) Acute hypoxemic respiratory failure Is this a current diagnosis for this admission?: Yes (2) Right lower lobe pneumonia Qualifiers: Pneumonia type: aspiration pneumonia Aspiration pneumonia type: unspecified Qualified Code(s): J69.0 - Pneumonitis due to inhalation of food and vomit Is this a current diagnosis for this admission?: Yes (3) Ventilator associated pneumonia Is this a current diagnosis for this admission?: Yes (4) Acute calculous cholecystitis Is this a current diagnosis for this admission?: Yes (5) Urinary tract infection associated with indwelling urethral catheter Qualifiers: Encounter type: initial encounter Qualified Code(s): T83.511A - Infection and inflammatory reaction due to indwelling urethral catheter, initial encounter ; N39.0 - Urinary tract infection, site not specified; N39.0 - Urinary tract infection, site not specified Is this a current diagnosis for this admission?: Yes (6) Metabolic encephalopathy Is this a current diagnosis for this admission?: Yes (7) Debilitated patient Is this a current diagnosis for this admission?: Yes (8) Primary hyperparathyroidism Is this a current diagnosis for this admission?: Yes (9) Urinary tract infection due to Enterococcus Is this a current diagnosis for this admission?: Yes (10) Volume overload Qualifiers: Hypervolemia type: unspecified Qualified Code(s): E87.70 - Fluid overload, unspecified Is this a current diagnosis for this admission?: Yes
[2018-03-25] MEDS ORDERED: FUROSEMIDE INJ/PF 40 MG/4 ML SDV IV ONE (16:30)
[2018-03-25] MEDS: PHARMACY COMMUNICATION ORDER MC SCH ×2 (17:11)
[2018-03-25] MEDS: VANCOMYCIN HCL 750 MG in DEXTROSE 5%-WATER 250 ML IV SCH (17:20)
--- NOTE | 2018-03-25 19:40 | CONSULTATION REPORT E ---
Consultation Report NAME: BRIANA BRADY : 1935 AGE: 82Y DATE: 03/25/2018 ROOM: 304 B TO: EMILY JENNINGS D.O. FROM: BAKARI BECKER M.D. Requesting Physician CONSULT REQUEST: Left nasal sidewall skin/soft tisse mass HISTORY OF PRESENT ILLNESS: This is an 82-year-old white female with past medical history significant for trach, PEG, and dementia. The patient was admitted to [facility] on 03/07/2018 for pneumonia after presenting to the ER for evaluation. The patient has been treated for pneumonia as an inpatient since that time. The patient's daughter, Katey, was present today during the consult evaluation. She reports that her mother has had a left nasal sidewall growth that continues to enlarge for greater than 3 months now. She notes that at times her mother will scratch/pick at this area and it bleeds significantly. The patient's daughter also reports that her mother has had other skin cancers removed from her body over the years, but she is unsure as to what type they were. PAST MEDICAL HISTORY: Same as above. MEDICATIONS: See medication list as noted in the patient's medical record. ALLERGIES/ADVERSE REACTIONS: 1. XANAX. 2. IODINE. 3. SEROQUEL. PAST SURGICAL HISTORY: Notable for tracheostomy and PEG tube, otherwise there is an extensive list that can be referenced in the patient's medical record. SOCIAL HISTORY: Smoking; unknown. FAMILY HISTORY: Noncontributory. REVIEW OF SYSTEMS: SKIN: History of skin cancers, but the types are unknown. Otherwise, review of systems is noncontributory to the consult and can be reviewed as noted in the patient's medical record. PHYSICAL EXAMINATION: VITAL SIGNS: Were currently stable. The patient was afebrile and is on ventilatory support via her tracheostomy tube. GENERAL: The patient is chronically ill-appearing, is unable to speak/ interact verbally, but is able to somewhat cooperate with the examination process. EARS: Are with moist cerumen bilateral with limited visualization of the TMs. NOSE: Left external alar skin/soft tissue nasal sidewall mass with a greater than 1 x 1 cm exophytic/nodular growth appearing concerning for either a basal call or squamous cell skin cancer. There are areas that have broken open and bled and are currently with stable eschar. The process does not appear to be present intranasally on the left. Otherwise, there is nasal septal deviation present. ORAL CAVITY/OROPHARYNX: The patient is with very poor dentition with necrotic teeth noted. Moist mucous membranes. Redundant soft palatable tissues and symmetric bilateral tonsillar hypertrophy, and the oral cavity/oropharynx exam was difficult due to persistent tongue trusting and gagging. HEAD: Appeared normocephalic and atraumatic. NECK: Trach is noted to be stable with no bleeding noted and circuit is stable. SKIN: Was with sun damage related changes and otherwise as noted above in the nasal examination section. NEUROLOGIC: The cranial nerves II-XII evaluation is limited due to patient's inability to participate in the exam process. HEART: Regular rate and rhythm without murmur. LUNGS: The upper airways were clear to auscultation. IMAGING STUDIES: Head CT performed on 03/08/2018 was with a right sphenoid sinus disease process and near complete opacification, otherwise no acute intracranial process was noted. ASSESSMENT AND PLAN: 1. Left nasal mass concerning for either a basal cell or squamous cell carcinoma. Recommendation and plan is for biopsy for permanent pathology evaluation which will be planned to be performed while she is an inpatient. This will be discussed with GI, Dr. Becker. This was also discussed with the patient's daughter who was in agreement. Also recommendation which the patient's daughter is okay with as well, is for the patient to wear mittens when the family is not present to protect from scratching and/or picking. Also recommend t.i.d. use of Bactroban antibiotic ointment over the left nasal mass. 2. Incidental finding on CT head imaging of a near complete right sphenoid sinus process. No addition workup or treatment is required at present. TIME: Total consult time was 45 minutes for review of the patient's medical record, review of CT head imaging, and consult time with the patient and with family discussion with her daughter, Katey, and coordination of care with GI staff, Dr. Becker. DICTATING PHYSICIAN: EMILY JENNINGS D.O. [id number] PHY#: [id number] ID: [id number] JOB#: [id number] ACCT: [id number] cc:EMILY JENNINGS D.O. > ILDA
--- NOTE | 2018-03-25 23:01 | EKG REPORT ---
SEVERITY:- ABNORMAL ECG - SINUS RHYTHM VENTRICULAR PREMATURE COMPLEX FIRST DEGREE AV BLOCK INCOMPLETE LEFT BUNDLE BRANCH BLOCK LEFT VENTRICULAR HYPERTROPHY : Confirmed by: Ketty Mendoza MD 25-Mar-2018 23:00:29
[2018-03-26] MEDS: IPRATROPIUM/ALBUTEROL 0.5-2.5 MG/3 ML AMPUL NEB SCH ×4 (01:58→19:40)
[2018-03-26] MEDS: PIPERACILLIN SODIUM/TAZOBACTAM 3.375 GM in NORMAL SALINE 100 ML IV SCH ×4 (03:40→21:50)
[2018-03-26] MEDS: HEPARIN SOD (PORCINE) 5,000 UNIT/ML 1 ML SYRINGE SUBCUT SCH ×3 (05:51→21:50)
[2018-03-26] MEDS: ACETYLCYSTEINE 20% SOLN 800 MG/4 ML VIAL.NEB NEB SCH ×2 (07:28→19:40)
[2018-03-26] MEDS: LACTOBACILLUS ACIDOPHILUS 250 MG TAB PEG SCH (10:12)
[2018-03-26] MEDS: AMLODIPINE BESYLATE 10 MG TABLET PEG SCH (10:12)
[2018-03-26] MEDS: FUROSEMIDE 40 MG TABLET PEG SCH (10:12)
[2018-03-26] MEDS: ASCORBIC ACID 500 MG TABLET PEG SCH (10:13)
[2018-03-26] MEDS: MEMANTINE HCL 10 MG TABLET PEG SCH (10:14)
[2018-03-26] MEDS: ASPIRIN 81 MG TABLET, CHEWABLE PEG SCH (10:14)
[2018-03-26] MEDS: NORMAL SALINE 10 ML SDV (SCHEDULED) IV SCH ×2 (10:15→21:52)
[2018-03-26] MEDS: INSULIN DETEMIR 100 UNIT/ML 3 ML PEN SUBCUT SCH (10:15)
--- NOTE | 2018-03-26 15:16 | PDOC PROGRESS REPORT ---
Subjective Progress Note for:: 03/26/18 Subjective:: Patient was seen by the bedside, she was seen by the ENT regarding the lesion on the nose, the last blood work showed hypernatremia, we will repeat blood tests Reason For Visit: VENTILATOR ASSOCIATED PNEUMONIA,CHRONIC Physical Exam Vital Signs: Temp Pulse Resp BP Pulse Ox 99.0 F 77 15 153/53 H 98 03/26/18 10:54 03/26/18 10:54 03/26/18 10:54 03/26/18 10:54 03/26/18 12:00 Intake & Output 03/25/18 03/26/18 03/27/18 06:59 06:59 06:59 Intake Total 3489 2101 80 Output Total 1400 1425 300 Balance 2089 676 -220 Weight 198.7 kg 90.4 kg General appearance: PRESENT: no acute distress Eye exam: PRESENT: PERRLA Respiratory exam: PRESENT: clear to auscultation monica Cardiovascular exam: PRESENT: +S1, +S2 Results Laboratory Results: 03/25/18 10:45 03/25/18 10:45 03/07/18 03/07/18 03/08/18 18:07 23:40 05:45 CK-MB (CK-2) 0.66 0.43 0.42 Troponin I 0.053 0.047 0.064 Impressions: Abdomen/Pelvis CT 03/07/18 08:52 IMPRESSION: Dense consolidation in the right lower lobe worrisome for pneumonia. Small parapneumonic effusion. Thick walled gallbladder with stones. Acute cholecystitis may be present Wall thickening and luminal narrowing distal sigmoid colon, worrisome for focal colitis. No adjacent abscess. Abdomen Ultrasound 03/07/18 12:49 IMPRESSION: Findings consistent with multiple gallstones. There is borderline thickening of the gallbladder wall. Other findings as noted above Head CT 03/08/18 00:00 IMPRESSION: 1. CHRONIC MICROVASCULAR ISCHEMIA. NO ACUTE IMAGING FINDINGS IN THE BRAIN. 2. RIGHT SPHENOID SINUS DISEASE. EVIDENCE OF ACUTE STROKE: NO. Guidance Fluoroscopy 03/20/18 00:00 IMPRESSION: SUCCESSFUL PLACEMENT OF A 5 FR DUAL LUMEN 31 CM PICC IN THE RIGHT BASILIC VEIN. Interventional Vascular Procedure 03/20/18 00:00 IMPRESSION: SUCCESSFUL PLACEMENT OF A 5 FR DUAL LUMEN 31 CM PICC IN THE RIGHT BASILIC VEIN. PICC Line Insertion 03/20/18 11:59 IMPRESSION: SUCCESSFUL PLACEMENT OF A 5 FR DUAL LUMEN 31 CM PICC IN THE RIGHT BASILIC VEIN. Thoracentesis Ultrasound 03/20/18 13:53 IMPRESSION: SUCCESSFUL THORACENTESIS USING ULTRASOUND GUIDANCE. Chest X-Ray 03/20/18 16:00 IMPRESSION: No pneumothorax status post thoracentesis. Findings as described. Assessment & Plan - Diagnosis (1) Acute hypoxemic respiratory failure Is this a current diagnosis for this admission?: Yes (2) Right lower lobe pneumonia Qualifiers: Pneumonia type: aspiration pneumonia Aspiration pneumonia type: unspecified Qualified Code(s): J69.0 - Pneumonitis due to inhalation of food and vomit Is this a current diagnosis for this admission?: Yes (3) Ventilator associated pneumonia Is this a current diagnosis for this admission?: Yes (4) Acute calculous cholecystitis Is this a current diagnosis for this admission?: Yes (5) Urinary tract infection associated with indwelling urethral catheter Qualifiers: Encounter type: initial encounter Qualified Code(s): T83.511A - Infection and inflammatory reaction due to indwelling urethral catheter, initial encounter ; N39.0 - Urinary tract infection, site not specified; N39.0 - Urinary tract infection, site not specified Is this a current diagnosis for this admission?: Yes (6) Metabolic encephalopathy Is this a current diagnosis for this admission?: Yes (7) Debilitated patient Is this a current diagnosis for this admission?: Yes (8) Primary hyperparathyroidism Is this a current diagnosis for this admission?: Yes (9) Urinary tract infection due to Enterococcus Is this a current diagnosis for this admission?: Yes (10) Volume overload Qualifiers: Hypervolemia type: unspecified Qualified Code(s): E87.70 - Fluid overload, unspecified Is this a current diagnosis for this admission?: Yes
[2018-03-26 16:01] LABS: ABSOLUTE BASOPHILS # (AUTO) 0.1 10^3/uL (0.0-0.2); ABSOLUTE EOSINOPHILS # (AUTO) 1.5 10^3/uL (0.0-0.6); ABSOLUTE LYMPHOCYTES (AUTO) 3.3 10^3/uL (0.5-4.7); ABSOLUTE MONOCYTES (AUTO) 1.1 10^3/uL (0.1-1.4); BASOPHILS % (AUTO) 1.2 % (0-2); EOSINOPHILS % (AUTO) 13.4 % (0-6); HEMATOCRIT 28.6 % (36.0-47.0); HEMOGLOBIN 9.3 g/dL (12.0-15.5); LYMPHOCYTES % (AUTO) 29.8 % (13-45); MEAN CORPUSCULAR HEMOGLOBIN 26.4 pg (27.0-33.4); MEAN CORPUSCULAR HGB CONC 32.5 g/dL (32.0-36.0); MEAN CORPUSCULAR VOLUME 81 fl (80-97); MONOCYTES % (AUTO) 10.2 % (3-13); PLATELET COUNT 321 10^3/uL (150-450); RED BLOOD COUNT 3.53 10^6/uL (3.72-5.28); RED CELL DISTRIBUTION WIDTH 18.7 % (11.5-14.0); SEGMENTED NEUTROPHILS % (AUTO) 45.4 % (42-78); TOTAL CELLS COUNTED % (AUTO) 100 %; WHITE BLOOD COUNT 10.9 10^3/uL (4.0-10.5)
[2018-03-26 16:15] LABS: ALANINE AMINOTRANSFERASE 24 U/L (9-52); ALBUMIN 3.1 g/dL (3.5-5.0); ALKALINE PHOSPHATASE 126 U/L (38-126); ANION GAP 11 (5-19); ASPARTATE AMINO TRANSFERASE 22 U/L (14-36); BILIRUBIN,DIRECT 0.3 mg/dL (0.0-0.4); BILIRUBIN,TOTAL 0.5 mg/dL (0.2-1.3); BLOOD UREA NITROGEN 31 mg/dL (7-20); CALCIUM 10.3 mg/dL (8.4-10.2); CARBON DIOXIDE 28 mmol/L (22-30); CHLORIDE 108 mmol/L (98-107); GLUCOSE 108 mg/dL (75-110); POTASSIUM 3.9 mmol/L (3.6-5.0); SODIUM 147.4 mmol/L (137-145); TOTAL PROTEIN 6.9 g/dL (6.3-8.2)
--- NOTE | 2018-03-26 16:16 | PDOC PROGRESS REPORT ---
Subjective Progress Note for:: 03/24/18 Subjective:: dependent on ventilation Reason For Visit: VENTILATOR ASSOCIATED PNEUMONIA,CHRONIC Physical Exam Vital Signs: Temp Pulse Resp BP Pulse Ox 99.0 F 70 16 153/53 H 99 03/26/18 10:54 03/26/18 14:02 03/26/18 14:02 03/26/18 10:54 03/26/18 15:29 Intake & Output 03/25/18 03/26/18 03/27/18 06:59 06:59 06:59 Intake Total 3489 2101 80 Output Total 1400 1425 300 Balance 2089 676 -220 Weight 198.7 kg 90.4 kg General appearance: PRESENT: no acute distress, disheveled, obese Head exam: PRESENT: atraumatic, normocephalic Eye exam: PRESENT: conjunctiva pale, EOMI. ABSENT: nystagmus, periorbital swelling, scleral icterus Mouth exam: PRESENT: dry mucosa, neck supple, tongue midline Neck exam: ABSENT: carotid bruit, JVD, lymphadenopathy, thyromegaly, tracheal deviation, tracheostomy Respiratory exam: PRESENT: crackles, decreased breath sounds, prolonged expiratory phas, rhonchi, unlabored. ABSENT: retraction, stridor Cardiovascular exam: PRESENT: RRR, +S1, +S2 Pulses: PRESENT: normal radial pulses GI/Abdominal exam: PRESENT: hypoactive bowel sounds, soft Gentrourinary exam: PRESENT: indwelling catheter Extremities exam: PRESENT: pedal edema. ABSENT: clubbing, joint swelling Musculoskeletal exam: ABSENT: ambulatory, deformity Neurological exam: PRESENT: awake Psychiatric exam: PRESENT: flat affect Skin exam: PRESENT: dry, warm Results Laboratory Results: 03/26/18 15:25 03/26/18 15:25 WBC 10.9 H RBC 3.53 L Hgb 9.3 L Hct 28.6 L MCV 81 MCH 26.4 L MCHC 32.5 RDW 18.7 H Plt Count 321 Seg Neutrophils % 45.4 Lymphocytes % 29.8 Monocytes % 10.2 Eosinophils % 13.4 H Basophils % 1.2 Absolute Neutrophils 5.0 Absolute Lymphocytes 3.3 Absolute Monocytes 1.1 Absolute Eosinophils 1.5 H Absolute Basophils 0.1 03/07/18 03/07/18 03/08/18 18:07 23:40 05:45 CK-MB (CK-2) 0.66 0.43 0.42 Troponin I 0.053 0.047 0.064 Impressions: Abdomen/Pelvis CT 03/07/18 08:52 IMPRESSION: Dense consolidation in the right lower lobe worrisome for pneumonia. Small parapneumonic effusion. Thick walled gallbladder with stones. Acute cholecystitis may be present Wall thickening and luminal narrowing distal sigmoid colon, worrisome for focal colitis. No adjacent abscess. Abdomen Ultrasound 03/07/18 12:49 IMPRESSION: Findings consistent with multiple gallstones. There is borderline thickening of the gallbladder wall. Other findings as noted above Head CT 03/08/18 00:00 IMPRESSION: 1. CHRONIC MICROVASCULAR ISCHEMIA. NO ACUTE IMAGING FINDINGS IN THE BRAIN. 2. RIGHT SPHENOID SINUS DISEASE. EVIDENCE OF ACUTE STROKE: NO. Guidance Fluoroscopy 03/20/18 00:00 IMPRESSION: SUCCESSFUL PLACEMENT OF A 5 FR DUAL LUMEN 31 CM PICC IN THE RIGHT BASILIC VEIN. Interventional Vascular Procedure 03/20/18 00:00 IMPRESSION: SUCCESSFUL PLACEMENT OF A 5 FR DUAL LUMEN 31 CM PICC IN THE RIGHT BASILIC VEIN. PICC Line Insertion 03/20/18 11:59 IMPRESSION: SUCCESSFUL PLACEMENT OF A 5 FR DUAL LUMEN 31 CM PICC IN THE RIGHT BASILIC VEIN. Thoracentesis Ultrasound 03/20/18 13:53 IMPRESSION: SUCCESSFUL THORACENTESIS USING ULTRASOUND GUIDANCE. Chest X-Ray 03/20/18 16:00 IMPRESSION: No pneumothorax status post thoracentesis. Findings as described. Assessment & Plan - Diagnosis (1) Acute hypoxemic respiratory failure Is this a current diagnosis for this admission?: Yes Plan: Unchanged (2) Metabolic encephalopathy Is this a current diagnosis for this admission?: Yes Plan: improved (3) Right lower lobe pneumonia Qualifiers: Pneumonia type: aspiration pneumonia Aspiration pneumonia type: unspecified Qualified Code(s): J69.0 - Pneumonitis due to inhalation of food and vomit Is this a current diagnosis for this admission?: Yes Plan: Current chest x-ray slightly improved (4) Sepsis Qualifiers: Sepsis type: sepsis due to unspecified organism Qualified Code(s): A41.9 - Sepsis, unspecified organism Is this a current diagnosis for this admission?: Yes (5) Eosinophilia Is this a current diagnosis for this admission?: Yes
--- NOTE | 2018-03-26 16:18 | PDOC PROGRESS REPORT ---
Subjective Progress Note for:: 03/21/18 Subjective:: dependent on ventilation Reason For Visit: VENTILATOR ASSOCIATED PNEUMONIA,CHRONIC Physical Exam Vital Signs: Temp Pulse Resp BP Pulse Ox 99.0 F 70 16 153/53 H 99 03/26/18 10:54 03/26/18 14:02 03/26/18 14:02 03/26/18 10:54 03/26/18 15:29 Intake & Output 03/25/18 03/26/18 03/27/18 06:59 06:59 06:59 Intake Total 3489 2101 80 Output Total 1400 1425 300 Balance 2089 676 -220 Weight 198.7 kg 90.4 kg General appearance: PRESENT: no acute distress, disheveled, obese Head exam: PRESENT: atraumatic, normocephalic Eye exam: PRESENT: conjunctiva pale, EOMI. ABSENT: nystagmus, periorbital swelling, scleral icterus Mouth exam: PRESENT: dry mucosa, neck supple Neck exam: PRESENT: tracheostomy. ABSENT: carotid bruit, JVD, lymphadenopathy, thyromegaly, tracheal deviation Respiratory exam: PRESENT: decreased breath sounds, prolonged expiratory phas, rales, rhonchi, unlabored. ABSENT: retraction, stridor Cardiovascular exam: PRESENT: RRR, +S1, +S2 Pulses: PRESENT: normal radial pulses GI/Abdominal exam: PRESENT: hypoactive bowel sounds, soft Extremities exam: PRESENT: clubbing, +1 edema. ABSENT: calf tenderness, joint swelling, pedal edema Musculoskeletal exam: ABSENT: ambulatory, deformity, dislocation Neurological exam: PRESENT: awake Psychiatric exam: PRESENT: flat affect Skin exam: PRESENT: dry, warm Results Laboratory Results: 03/26/18 15:25 03/26/18 15:25 WBC 10.9 H RBC 3.53 L Hgb 9.3 L Hct 28.6 L MCV 81 MCH 26.4 L MCHC 32.5 RDW 18.7 H Plt Count 321 Seg Neutrophils % 45.4 Lymphocytes % 29.8 Monocytes % 10.2 Eosinophils % 13.4 H Basophils % 1.2 Absolute Neutrophils 5.0 Absolute Lymphocytes 3.3 Absolute Monocytes 1.1 Absolute Eosinophils 1.5 H Absolute Basophils 0.1 03/07/18 03/07/18 03/08/18 18:07 23:40 05:45 CK-MB (CK-2) 0.66 0.43 0.42 Troponin I 0.053 0.047 0.064 Impressions: Abdomen/Pelvis CT 03/07/18 08:52 IMPRESSION: Dense consolidation in the right lower lobe worrisome for pneumonia. Small parapneumonic effusion. Thick walled gallbladder with stones. Acute cholecystitis may be present Wall thickening and luminal narrowing distal sigmoid colon, worrisome for focal colitis. No adjacent abscess. Abdomen Ultrasound 03/07/18 12:49 IMPRESSION: Findings consistent with multiple gallstones. There is borderline thickening of the gallbladder wall. Other findings as noted above Head CT 03/08/18 00:00 IMPRESSION: 1. CHRONIC MICROVASCULAR ISCHEMIA. NO ACUTE IMAGING FINDINGS IN THE BRAIN. 2. RIGHT SPHENOID SINUS DISEASE. EVIDENCE OF ACUTE STROKE: NO. Guidance Fluoroscopy 03/20/18 00:00 IMPRESSION: SUCCESSFUL PLACEMENT OF A 5 FR DUAL LUMEN 31 CM PICC IN THE RIGHT BASILIC VEIN. Interventional Vascular Procedure 03/20/18 00:00 IMPRESSION: SUCCESSFUL PLACEMENT OF A 5 FR DUAL LUMEN 31 CM PICC IN THE RIGHT BASILIC VEIN. PICC Line Insertion 03/20/18 11:59 IMPRESSION: SUCCESSFUL PLACEMENT OF A 5 FR DUAL LUMEN 31 CM PICC IN THE RIGHT BASILIC VEIN. Thoracentesis Ultrasound 03/20/18 13:53 IMPRESSION: SUCCESSFUL THORACENTESIS USING ULTRASOUND GUIDANCE. Chest X-Ray 03/20/18 16:00 IMPRESSION: No pneumothorax status post thoracentesis. Findings as described. Assessment & Plan - Diagnosis (1) Acute hypoxemic respiratory failure Is this a current diagnosis for this admission?: Yes Plan: Unchanged (2) Metabolic encephalopathy Is this a current diagnosis for this admission?: Yes Plan: improved (3) Right lower lobe pneumonia Qualifiers: Pneumonia type: aspiration pneumonia Aspiration pneumonia type: unspecified Qualified Code(s): J69.0 - Pneumonitis due to inhalation of food and vomit Is this a current diagnosis for this admission?: Yes Plan: s/p thoracentesis current chest x-ray slightly improved (4) Sepsis Qualifiers: Sepsis type: sepsis due to unspecified organism Qualified Code(s): A41.9 - Sepsis, unspecified organism Is this a current diagnosis for this admission?: Yes (5) Eosinophilia Is this a current diagnosis for this admission?: Yes
--- NOTE | 2018-03-26 16:20 | PDOC PROGRESS REPORT ---
Subjective Progress Note for:: 03/23/18 Subjective:: dependent on ventilation Reason For Visit: VENTILATOR ASSOCIATED PNEUMONIA,CHRONIC Physical Exam Vital Signs: Temp Pulse Resp BP Pulse Ox 99.0 F 70 16 153/53 H 99 03/26/18 10:54 03/26/18 14:02 03/26/18 14:02 03/26/18 10:54 03/26/18 15:29 Intake & Output 03/25/18 03/26/18 03/27/18 06:59 06:59 06:59 Intake Total 3489 2101 80 Output Total 1400 1425 300 Balance 2089 676 -220 Weight 198.7 kg 90.4 kg General appearance: PRESENT: no acute distress, disheveled, obese Head exam: PRESENT: atraumatic, normocephalic Eye exam: PRESENT: conjunctiva pale, EOMI. ABSENT: nystagmus, periorbital swelling, scleral icterus Mouth exam: PRESENT: dry mucosa, neck supple, tongue midline Neck exam: PRESENT: tracheostomy. ABSENT: carotid bruit, JVD, lymphadenopathy, thyromegaly, tracheal deviation Respiratory exam: PRESENT: decreased breath sounds, prolonged expiratory phas, rales, rhonchi, unlabored. ABSENT: retraction, stridor Cardiovascular exam: PRESENT: RRR, +S1, +S2 Pulses: PRESENT: normal radial pulses GI/Abdominal exam: PRESENT: hypoactive bowel sounds, soft Gentrourinary exam: PRESENT: indwelling catheter Extremities exam: PRESENT: pedal edema. ABSENT: clubbing, joint swelling Musculoskeletal exam: ABSENT: ambulatory, deformity, dislocation Neurological exam: PRESENT: awake Psychiatric exam: PRESENT: flat affect Skin exam: PRESENT: dry, warm Results Laboratory Results: 03/26/18 15:25 03/26/18 15:25 WBC 10.9 H RBC 3.53 L Hgb 9.3 L Hct 28.6 L MCV 81 MCH 26.4 L MCHC 32.5 RDW 18.7 H Plt Count 321 Seg Neutrophils % 45.4 Lymphocytes % 29.8 Monocytes % 10.2 Eosinophils % 13.4 H Basophils % 1.2 Absolute Neutrophils 5.0 Absolute Lymphocytes 3.3 Absolute Monocytes 1.1 Absolute Eosinophils 1.5 H Absolute Basophils 0.1 03/07/18 03/07/18 03/08/18 18:07 23:40 05:45 CK-MB (CK-2) 0.66 0.43 0.42 Troponin I 0.053 0.047 0.064 Impressions: Abdomen/Pelvis CT 03/07/18 08:52 IMPRESSION: Dense consolidation in the right lower lobe worrisome for pneumonia. Small parapneumonic effusion. Thick walled gallbladder with stones. Acute cholecystitis may be present Wall thickening and luminal narrowing distal sigmoid colon, worrisome for focal colitis. No adjacent abscess. Abdomen Ultrasound 03/07/18 12:49 IMPRESSION: Findings consistent with multiple gallstones. There is borderline thickening of the gallbladder wall. Other findings as noted above Head CT 03/08/18 00:00 IMPRESSION: 1. CHRONIC MICROVASCULAR ISCHEMIA. NO ACUTE IMAGING FINDINGS IN THE BRAIN. 2. RIGHT SPHENOID SINUS DISEASE. EVIDENCE OF ACUTE STROKE: NO. Guidance Fluoroscopy 03/20/18 00:00 IMPRESSION: SUCCESSFUL PLACEMENT OF A 5 FR DUAL LUMEN 31 CM PICC IN THE RIGHT BASILIC VEIN. Interventional Vascular Procedure 03/20/18 00:00 IMPRESSION: SUCCESSFUL PLACEMENT OF A 5 FR DUAL LUMEN 31 CM PICC IN THE RIGHT BASILIC VEIN. PICC Line Insertion 03/20/18 11:59 IMPRESSION: SUCCESSFUL PLACEMENT OF A 5 FR DUAL LUMEN 31 CM PICC IN THE RIGHT BASILIC VEIN. Thoracentesis Ultrasound 03/20/18 13:53 IMPRESSION: SUCCESSFUL THORACENTESIS USING ULTRASOUND GUIDANCE. Chest X-Ray 03/20/18 16:00 IMPRESSION: No pneumothorax status post thoracentesis. Findings as described. Assessment & Plan - Diagnosis (1) Acute hypoxemic respiratory failure Is this a current diagnosis for this admission?: Yes Plan: Unchanged (2) Metabolic encephalopathy Is this a current diagnosis for this admission?: Yes Plan: improved (3) Right lower lobe pneumonia Qualifiers: Pneumonia type: aspiration pneumonia Aspiration pneumonia type: unspecified Qualified Code(s): J69.0 - Pneumonitis due to inhalation of food and vomit Is this a current diagnosis for this admission?: Yes Plan: s/p thoracentesis current chest x-ray slightly improved (4) Sepsis Qualifiers: Sepsis type: sepsis due to unspecified organism Qualified Code(s): A41.9 - Sepsis, unspecified organism Is this a current diagnosis for this admission?: Yes (5) Eosinophilia Is this a current diagnosis for this admission?: Yes
--- NOTE | 2018-03-26 16:23 | PDOC PROGRESS REPORT ---
Subjective Progress Note for:: 03/22/18 Subjective:: dependent on ventilation Reason For Visit: VENTILATOR ASSOCIATED PNEUMONIA,CHRONIC Physical Exam Vital Signs: Temp Pulse Resp BP Pulse Ox 99.0 F 70 16 153/53 H 99 03/26/18 10:54 03/26/18 14:02 03/26/18 14:02 03/26/18 10:54 03/26/18 15:29 Intake & Output 03/25/18 03/26/18 03/27/18 06:59 06:59 06:59 Intake Total 3489 2101 80 Output Total 1400 1425 300 Balance 2089 676 -220 Weight 198.7 kg 90.4 kg General appearance: PRESENT: no acute distress, disheveled, obese Head exam: PRESENT: atraumatic, normocephalic Eye exam: PRESENT: conjunctiva pale, EOMI. ABSENT: nystagmus, periorbital swelling, scleral icterus Mouth exam: PRESENT: dry mucosa, neck supple, tongue midline Neck exam: PRESENT: tracheostomy. ABSENT: carotid bruit, JVD, lymphadenopathy, thyromegaly, tracheal deviation Respiratory exam: PRESENT: decreased breath sounds, prolonged expiratory phas, rhonchi, unlabored, wheezes. ABSENT: retraction, stridor Cardiovascular exam: PRESENT: RRR, +S1, +S2 Pulses: PRESENT: normal radial pulses GI/Abdominal exam: PRESENT: hypoactive bowel sounds, soft Extremities exam: PRESENT: pedal edema. ABSENT: calf tenderness, clubbing, joint swelling Musculoskeletal exam: ABSENT: deformity, dislocation Neurological exam: PRESENT: awake Psychiatric exam: PRESENT: flat affect Skin exam: PRESENT: dry, warm Results Laboratory Results: 03/26/18 15:25 03/26/18 15:25 WBC 10.9 H RBC 3.53 L Hgb 9.3 L Hct 28.6 L MCV 81 MCH 26.4 L MCHC 32.5 RDW 18.7 H Plt Count 321 Seg Neutrophils % 45.4 Lymphocytes % 29.8 Monocytes % 10.2 Eosinophils % 13.4 H Basophils % 1.2 Absolute Neutrophils 5.0 Absolute Lymphocytes 3.3 Absolute Monocytes 1.1 Absolute Eosinophils 1.5 H Absolute Basophils 0.1 03/07/18 03/07/18 03/08/18 18:07 23:40 05:45 CK-MB (CK-2) 0.66 0.43 0.42 Troponin I 0.053 0.047 0.064 Impressions: Abdomen/Pelvis CT 03/07/18 08:52 IMPRESSION: Dense consolidation in the right lower lobe worrisome for pneumonia. Small parapneumonic effusion. Thick walled gallbladder with stones. Acute cholecystitis may be present Wall thickening and luminal narrowing distal sigmoid colon, worrisome for focal colitis. No adjacent abscess. Abdomen Ultrasound 03/07/18 12:49 IMPRESSION: Findings consistent with multiple gallstones. There is borderline thickening of the gallbladder wall. Other findings as noted above Head CT 03/08/18 00:00 IMPRESSION: 1. CHRONIC MICROVASCULAR ISCHEMIA. NO ACUTE IMAGING FINDINGS IN THE BRAIN. 2. RIGHT SPHENOID SINUS DISEASE. EVIDENCE OF ACUTE STROKE: NO. Guidance Fluoroscopy 03/20/18 00:00 IMPRESSION: SUCCESSFUL PLACEMENT OF A 5 FR DUAL LUMEN 31 CM PICC IN THE RIGHT BASILIC VEIN. Interventional Vascular Procedure 03/20/18 00:00 IMPRESSION: SUCCESSFUL PLACEMENT OF A 5 FR DUAL LUMEN 31 CM PICC IN THE RIGHT BASILIC VEIN. PICC Line Insertion 03/20/18 11:59 IMPRESSION: SUCCESSFUL PLACEMENT OF A 5 FR DUAL LUMEN 31 CM PICC IN THE RIGHT BASILIC VEIN. Thoracentesis Ultrasound 03/20/18 13:53 IMPRESSION: SUCCESSFUL THORACENTESIS USING ULTRASOUND GUIDANCE. Chest X-Ray 03/20/18 16:00 IMPRESSION: No pneumothorax status post thoracentesis. Findings as described. Assessment & Plan - Diagnosis (1) Acute hypoxemic respiratory failure Is this a current diagnosis for this admission?: Yes Plan: Unchanged (2) Metabolic encephalopathy Is this a current diagnosis for this admission?: Yes Plan: improved (3) Right lower lobe pneumonia Qualifiers: Pneumonia type: aspiration pneumonia Aspiration pneumonia type: unspecified Qualified Code(s): J69.0 - Pneumonitis due to inhalation of food and vomit Is this a current diagnosis for this admission?: Yes Plan: s/p thoracentesis current chest x-ray slightly improved (4) Sepsis Qualifiers: Sepsis type: sepsis due to unspecified organism Qualified Code(s): A41.9 - Sepsis, unspecified organism Is this a current diagnosis for this admission?: Yes (5) Eosinophilia Is this a current diagnosis for this admission?: Yes
[2018-03-27] MEDS: IPRATROPIUM/ALBUTEROL 0.5-2.5 MG/3 ML AMPUL NEB SCH ×4 (02:38→19:33)
[2018-03-27] MEDS: PIPERACILLIN SODIUM/TAZOBACTAM 3.375 GM in NORMAL SALINE 100 ML IV SCH ×4 (04:14→21:59)
[2018-03-27] MEDS: HEPARIN SOD (PORCINE) 5,000 UNIT/ML 1 ML SYRINGE SUBCUT SCH ×3 (06:13→21:59)
[2018-03-27] MEDS: ACETYLCYSTEINE 20% SOLN 800 MG/4 ML VIAL.NEB NEB SCH ×2 (07:50→19:33)
[2018-03-27] MEDS: LACTOBACILLUS ACIDOPHILUS 250 MG TAB PEG SCH (09:50)
[2018-03-27] MEDS: ASCORBIC ACID 500 MG TABLET PEG SCH (09:50)
[2018-03-27] MEDS: MEMANTINE HCL 10 MG TABLET PEG SCH (09:50)
[2018-03-27] MEDS: INSULIN DETEMIR 100 UNIT/ML 3 ML PEN SUBCUT SCH (09:51)
[2018-03-27] MEDS: ASPIRIN 81 MG TABLET, CHEWABLE PEG SCH (09:51)
[2018-03-27] MEDS: FUROSEMIDE 40 MG TABLET PEG SCH (09:51)
[2018-03-27] MEDS: AMLODIPINE BESYLATE 10 MG TABLET PEG SCH (09:51)
[2018-03-27] MEDS: NORMAL SALINE 10 ML SDV (SCHEDULED) IV SCH ×2 (09:51→22:00)
[2018-03-27] MEDS: VANCOMYCIN HCL 750 MG in DEXTROSE 5%-WATER 250 ML IV SCH (18:32)
[2018-03-27 18:38] LABS: VANCOMYCIN,TROUGH 18.4 ug/mL (5.0-20.0)
--- NOTE | 2018-03-27 19:58 | PDOC PROGRESS REPORT ---
Subjective Progress Note for:: 03/27/18 Subjective:: Patient is seen by the bedside Reason For Visit: VENTILATOR ASSOCIATED PNEUMONIA,CHRONIC Physical Exam Vital Signs: Temp Pulse Resp BP Pulse Ox 98.9 F 77 20 132/115 H 99 03/27/18 15:18 03/27/18 15:18 03/27/18 15:18 03/27/18 15:18 03/27/18 16:15 Intake & Output 03/26/18 03/27/18 03/28/18 06:59 06:59 06:59 Intake Total 2101 1907 1124 Output Total 1425 1200 400 Balance 676 707 724 Weight 90.4 kg 89.6 kg General appearance: PRESENT: no acute distress Respiratory exam: PRESENT: rales Cardiovascular exam: PRESENT: +S1, +S2 GI/Abdominal exam: PRESENT: soft Results Laboratory Results: 03/26/18 15:25 03/27/18 17:49 03/27/18 17:49 Creatinine 1.05 Est GFR ( Amer) > 60 Est GFR (Non-Af Amer) 50 L 03/07/18 03/07/18 03/08/18 18:07 23:40 05:45 CK-MB (CK-2) 0.66 0.43 0.42 Troponin I 0.053 0.047 0.064 Impressions: Abdomen/Pelvis CT 03/07/18 08:52 IMPRESSION: Dense consolidation in the right lower lobe worrisome for pneumonia. Small parapneumonic effusion. Thick walled gallbladder with stones. Acute cholecystitis may be present Wall thickening and luminal narrowing distal sigmoid colon, worrisome for focal colitis. No adjacent abscess. Abdomen Ultrasound 03/07/18 12:49 IMPRESSION: Findings consistent with multiple gallstones. There is borderline thickening of the gallbladder wall. Other findings as noted above Head CT 03/08/18 00:00 IMPRESSION: 1. CHRONIC MICROVASCULAR ISCHEMIA. NO ACUTE IMAGING FINDINGS IN THE BRAIN. 2. RIGHT SPHENOID SINUS DISEASE. EVIDENCE OF ACUTE STROKE: NO. Guidance Fluoroscopy 03/20/18 00:00 IMPRESSION: SUCCESSFUL PLACEMENT OF A 5 FR DUAL LUMEN 31 CM PICC IN THE RIGHT BASILIC VEIN. Interventional Vascular Procedure 03/20/18 00:00 IMPRESSION: SUCCESSFUL PLACEMENT OF A 5 FR DUAL LUMEN 31 CM PICC IN THE RIGHT BASILIC VEIN. PICC Line Insertion 03/20/18 11:59 IMPRESSION: SUCCESSFUL PLACEMENT OF A 5 FR DUAL LUMEN 31 CM PICC IN THE RIGHT BASILIC VEIN. Thoracentesis Ultrasound 03/20/18 13:53 IMPRESSION: SUCCESSFUL THORACENTESIS USING ULTRASOUND GUIDANCE. Chest X-Ray 03/20/18 16:00 IMPRESSION: No pneumothorax status post thoracentesis. Findings as described. Assessment & Plan - Diagnosis (1) Acute hypoxemic respiratory failure Is this a current diagnosis for this admission?: Yes (2) Right lower lobe pneumonia Qualifiers: Pneumonia type: aspiration pneumonia Aspiration pneumonia type: unspecified Qualified Code(s): J69.0 - Pneumonitis due to inhalation of food and vomit Is this a current diagnosis for this admission?: Yes (3) Ventilator associated pneumonia Is this a current diagnosis for this admission?: Yes (4) Acute calculous cholecystitis Is this a current diagnosis for this admission?: Yes (5) Urinary tract infection associated with indwelling urethral catheter Qualifiers: Encounter type: initial encounter Qualified Code(s): T83.511A - Infection and inflammatory reaction due to indwelling urethral catheter, initial encounter ; N39.0 - Urinary tract infection, site not specified; N39.0 - Urinary tract infection, site not specified Is this a current diagnosis for this admission?: Yes (6) Metabolic encephalopathy Is this a current diagnosis for this admission?: Yes (7) Debilitated patient Is this a current diagnosis for this admission?: Yes (8) Primary hyperparathyroidism Is this a current diagnosis for this admission?: Yes (9) Urinary tract infection due to Enterococcus Is this a current diagnosis for this admission?: Yes (10) Volume overload Qualifiers: Hypervolemia type: unspecified Qualified Code(s): E87.70 - Fluid overload, unspecified Is this a current diagnosis for this admission?: Yes
[2018-03-28] MEDS: IPRATROPIUM/ALBUTEROL 0.5-2.5 MG/3 ML AMPUL NEB SCH ×4 (02:11→19:37)
[2018-03-28] MEDS: PIPERACILLIN SODIUM/TAZOBACTAM 3.375 GM in NORMAL SALINE 100 ML IV SCH ×3 (02:26→14:56)
[2018-03-28] MEDS: HEPARIN SOD (PORCINE) 5,000 UNIT/ML 1 ML SYRINGE SUBCUT SCH ×3 (05:26→21:13)
[2018-03-28] MEDS: ACETYLCYSTEINE 20% SOLN 800 MG/4 ML VIAL.NEB NEB SCH ×2 (07:45→19:37)
[2018-03-28] MEDS: AMLODIPINE BESYLATE 10 MG TABLET PEG SCH (09:34)
[2018-03-28] MEDS: LACTOBACILLUS ACIDOPHILUS 250 MG TAB PEG SCH (09:34)
[2018-03-28] MEDS: ASPIRIN 81 MG TABLET, CHEWABLE PEG SCH (09:37)
[2018-03-28] MEDS: ASCORBIC ACID 500 MG TABLET PEG SCH (09:37)
[2018-03-28] MEDS: FUROSEMIDE 40 MG TABLET PEG SCH (09:37)
[2018-03-28] MEDS: MEMANTINE HCL 10 MG TABLET PEG SCH (09:37)
[2018-03-28] MEDS: INSULIN DETEMIR 100 UNIT/ML 3 ML PEN SUBCUT SCH (09:39)
[2018-03-28] MEDS: NORMAL SALINE 10 ML SDV (SCHEDULED) IV SCH ×2 (09:39→21:16)
--- NOTE | 2018-03-28 19:25 | PDOC PROGRESS REPORT ---
Subjective Progress Note for:: 03/28/18 Subjective:: She has multiple comorbid conditions, she was seen today by the ENT surgeon, she had biopsy of the lesion in the nose this morning, suspect neoplasm, hopefully discharge home on March 30, 2018. She was again seen by palliative care , she remains a full code despite multiple comorbid conditions prognosis is poor overall. Reason For Visit: VENTILATOR ASSOCIATED PNEUMONIA,CHRONIC Physical Exam Vital Signs: Temp Pulse Resp BP Pulse Ox 99.5 F 84 19 132/64 H 98 03/28/18 16:05 03/28/18 16:05 03/28/18 16:05 03/28/18 16:05 03/28/18 16:05 Intake & Output 03/27/18 03/28/18 03/29/18 06:59 06:59 06:59 Intake Total 1907 2095 1130 Output Total 1200 1075 480 Balance 707 1020 650 Weight 89.6 kg 91.3 kg General appearance: PRESENT: no acute distress Eye exam: PRESENT: PERRLA Respiratory exam: PRESENT: clear to auscultation monica Cardiovascular exam: PRESENT: +S1, +S2 Results Laboratory Results: 03/26/18 15:25 03/27/18 17:49 03/07/18 03/07/18 03/08/18 18:07 23:40 05:45 CK-MB (CK-2) 0.66 0.43 0.42 Troponin I 0.053 0.047 0.064 Impressions: Abdomen/Pelvis CT 03/07/18 08:52 IMPRESSION: Dense consolidation in the right lower lobe worrisome for pneumonia. Small parapneumonic effusion. Thick walled gallbladder with stones. Acute cholecystitis may be present Wall thickening and luminal narrowing distal sigmoid colon, worrisome for focal colitis. No adjacent abscess. Abdomen Ultrasound 03/07/18 12:49 IMPRESSION: Findings consistent with multiple gallstones. There is borderline thickening of the gallbladder wall. Other findings as noted above Head CT 03/08/18 00:00 IMPRESSION: 1. CHRONIC MICROVASCULAR ISCHEMIA. NO ACUTE IMAGING FINDINGS IN THE BRAIN. 2. RIGHT SPHENOID SINUS DISEASE. EVIDENCE OF ACUTE STROKE: NO. Guidance Fluoroscopy 03/20/18 00:00 IMPRESSION: SUCCESSFUL PLACEMENT OF A 5 FR DUAL LUMEN 31 CM PICC IN THE RIGHT BASILIC VEIN. Interventional Vascular Procedure 03/20/18 00:00 IMPRESSION: SUCCESSFUL PLACEMENT OF A 5 FR DUAL LUMEN 31 CM PICC IN THE RIGHT BASILIC VEIN. PICC Line Insertion 03/20/18 11:59 IMPRESSION: SUCCESSFUL PLACEMENT OF A 5 FR DUAL LUMEN 31 CM PICC IN THE RIGHT BASILIC VEIN. Thoracentesis Ultrasound 03/20/18 13:53 IMPRESSION: SUCCESSFUL THORACENTESIS USING ULTRASOUND GUIDANCE. Chest X-Ray 03/20/18 16:00 IMPRESSION: No pneumothorax status post thoracentesis. Findings as described. Assessment & Plan - Diagnosis (1) Acute hypoxemic respiratory failure Is this a current diagnosis for this admission?: Yes (2) Right lower lobe pneumonia Qualifiers: Pneumonia type: aspiration pneumonia Aspiration pneumonia type: unspecified Qualified Code(s): J69.0 - Pneumonitis due to inhalation of food and vomit Is this a current diagnosis for this admission?: Yes (3) Ventilator associated pneumonia Is this a current diagnosis for this admission?: Yes (4) Acute calculous cholecystitis Is this a current diagnosis for this admission?: Yes (5) Urinary tract infection associated with indwelling urethral catheter Qualifiers: Encounter type: initial encounter Qualified Code(s): T83.511A - Infection and inflammatory reaction due to indwelling urethral catheter, initial encounter ; N39.0 - Urinary tract infection, site not specified; N39.0 - Urinary tract infection, site not specified Is this a current diagnosis for this admission?: Yes (6) Metabolic encephalopathy Is this a current diagnosis for this admission?: Yes (7) Debilitated patient Is this a current diagnosis for this admission?: Yes (8) Primary hyperparathyroidism Is this a current diagnosis for this admission?: Yes (9) Urinary tract infection due to Enterococcus Is this a current diagnosis for this admission?: Yes (10) Volume overload Qualifiers: Hypervolemia type: unspecified Qualified Code(s): E87.70 - Fluid overload, unspecified Is this a current diagnosis for this admission?: Yes
--- NOTE | 2018-03-28 20:10 | CONSULTATION REPORT E ---
Consultation Report NAME: BRIANA BRADY : 1935 AGE: 82Y DATE: 03/28/2018 304 B TO: EMILY JENNINGS D.O. FROM: BAKARI BECKER M.D. Requesting Physician ENT PROCEDURE NOTE ENT PROCEDURE REQUEST: GI consultation for left nasal mass evaluation, biopsy, and diagnosis. HISTORY OF PRESENT ILLNESS: This is an 82-year-old white female who was previously evaluated via ENT consultation as requested due to an enlarging left nasal sidewall mass with concern for a basal cell cancer or a squamous cell cancer. The biopsy had previously been discussed with the patient and her daughter, Katey with an agreement as to the need and timing of biopsy while the patient remained in an inpatient status. PHYSICAL EXAMINATION: NOSE: Left nasal alar/sidewall soft tissue mass concerning for either a cancer or squamous cell cancer. There were areas of ulceration and breakdown with eschar and crusting noted. The mass measured greater than 1 x 1 cm and was nodular in appearance. After extensive discussion again with the patient and her daughter, Katey, the biopsy procedure was discussed in detail along with the risks and complications of the procedure. Her daughter voiced an understanding, was in agreement, and consent was obtained. PROCEDURE: After informed consent was obtained and verified by the patient's nurse, the area was cleaned with alcohol wipes, as the patient is allergic to topical iodine/Betadine. Once complete, local anesthetic with epinephrine was used to establish a block at the left lateral nasal sidewall. At this point, a 2 mm dermal punch was used to take multiple biopsies without difficulty. These were passed off for permanent pathology evaluation. There was very minimal bleeding noted. Next, Bacitracin ointment and a Band-Aid was placed over the left nasal mass. There were no complications. ASSESSMENT AND PLAN: Left nasal mass concerning for either a basal cell or squamous cell skin cancer. Final pathology will be evaluated once available and definitive management will be discussed with the patient and her family. The patient's daughter, Katey, voiced an understanding and was in agreement. DICTATING PHYSICIAN: EMILY JENNINGS D.O. [id number] PHY#: [id number] ID: [id number] JOB#: [id number] ACCT: [id number] cc:EMILY EJNNINGS D.O. > ILDA
--- NOTE | 2018-03-29 00:02 | Progress Note ---
Provider Note Provider Note: Palliative Care follow up visit 03/28/18 12:40- 1:00 PM Follow up visit with patient and her daughter. Patietn is awake, frowning and on ventilator. No respiratory distres and denies pain. Daughter at bedside. We discussed ENT's planned biopsy of lesion on patients left nostril which has been pesnt for many months. 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 Area has been bleeding with small amount dried blood on area. Daughter is upset because she said nurse told her that her mothers labs show decrease in protein which will require changes in nutrition or supplements , and she said nurse told her that patients hemoglobin has decreased again. I rechecked las and informed daughter that hemoglobin was in fact increased, no decreased and that her Albumin level and protein levels are stable. She wants labs rechecked daily but I explained that these values only have meaningful changes over a few days, that daily changes can be contributed to extra fluid in patients system, etc. I did take this opportunity to again discuss her with daughter Katey the effects of chronic illness and system failures over time. She is so resistant to admitting that her mother is not going to recover fully from her many problems. It is remarkable that she has maintained as well as she has, but I explained to her that each episode of illness lowers her baseline and physical strength for the future. We did discuss her plans for taking patient home and home nurses being available for care. I advised her to always ask doctor before getting too upset about labs etc. Brent follow.
[2018-03-29] MEDS: IPRATROPIUM/ALBUTEROL 0.5-2.5 MG/3 ML AMPUL NEB SCH ×4 (01:42→19:45)
[2018-03-29] MEDS: HEPARIN SOD (PORCINE) 5,000 UNIT/ML 1 ML SYRINGE SUBCUT SCH ×3 (05:26→21:03)
[2018-03-29] MEDS: ACETYLCYSTEINE 20% SOLN 800 MG/4 ML VIAL.NEB NEB SCH ×2 (07:47→19:45)
--- NOTE | 2018-03-29 10:46 | PDOC DISCHARGE SUMMARY ---
General - Admit/Disc Date/PCP Admission Date/Primary Care Provider: 03/07/18 15:18 BAKARI BECKER MD Discharge Date: 03/30/18 - Discharge Diagnosis (1) Acute hypoxemic respiratory failure Is this a current diagnosis for this admission?: Yes (2) Right lower lobe pneumonia Is this a current diagnosis for this admission?: Yes (3) Ventilator associated pneumonia Is this a current diagnosis for this admission?: Yes (4) Acute calculous cholecystitis Is this a current diagnosis for this admission?: Yes (5) Urinary tract infection associated with indwelling urethral catheter Is this a current diagnosis for this admission?: Yes (6) Metabolic encephalopathy Is this a current diagnosis for this admission?: Yes (7) Debilitated patient Is this a current diagnosis for this admission?: Yes (8) Primary hyperparathyroidism Is this a current diagnosis for this admission?: Yes (9) Urinary tract infection due to Enterococcus Is this a current diagnosis for this admission?: Yes (10) Volume overload Is this a current diagnosis for this admission?: Yes (11) Pseudomonas urinary tract infection Is this a current diagnosis for this admission?: Yes (12) Hypoalbuminemia Is this a current diagnosis for this admission?: Yes (13) Lesion of ala of nose Is this a current diagnosis for this admission?: Yes (14) Anemia Is this a current diagnosis for this admission?: Yes (15) Urinary tract infection associated with indwelling urethral catheter Is this a current diagnosis for this admission?: Yes (16) Dementia Is this a current diagnosis for this admission?: Yes - Additional Information Home Medications: RX: Amlodipine Besylate [Norvasc 10 mg Tablet] 10 mg PEG DAILY 12/18/17 RX: Ascorbic Acid [Vitamin C 500 mg Tablet] 500 mg PEG DAILY 12/18/17 RX: Aspirin [Adult Low Dose Aspirin EC] 81 mg PEG DAILY 12/18/17 RX: Insulin Aspart [Novolog Flexpen] 0 units SQ .PERSLIDINGSCALE MDD ACCUCHECKS Q6 12/18/17 RX: Insulin Detemir [Levemir Flextouch] 10 units SQ DAILY 12/18/17 RX: Memantine HCl [Namenda 10 mg Tablet] 10 mg PEG DAILY 12/18/17 RX: Multivitamin [Animal Shapes] 1 tab PEG DAILY 12/18/17 RX: Budesonide [Pulmicort Neb 0.5 mg/2 ml Ampul] 0.5 mg NEB RTQ12 03/07/18 RX: Furosemide [Lasix 40 mg Tablet] 40 mg PEG DAILY 03/07/18 RX: Ipratropium/Albuterol Sulfate [Duoneb 3 ml Ampul] 3 ml NEB RTQ6 03/07/18 RX: Lactobacillus Acidophilus [Acidophilus Lactobacilli] 1 tab PEG DAILY RX: Ondansetron HCl [Zofran 8 mg Tablet] 8 mg PEG TIDP PRN 03/07/18 RX: Tobramycin Sulfate/Dexameth [Tobradex Oph Drops 2.5 ml] 1 drop OU Q6 History of Present Illness History of Present Illness: BRIANA BRADY is a 82 year old female, she has a very complicated medical history, chronic respiratory failure, vent dependent with a tracheostomy, a tube feeder, with indwelling Palacios catheter. She recently had a prolonged hospital admission at [facility] in [facility], she was transferred from home to the emergency room for evaluation of altered mental status, increasing abdominal distention, cloudy urine output out of the Palacios catheter.. CT scan of the abdomen and pelvis with oral contrast was done, it showed dense consolidation in the right lower lobe worrisome for pneumonia, adjacent loculated appearing small right pleural effusion also found was diffusely abnormal distended gallbladder with wall thickening, subsequent ultrasound of the gallbladder showed multiple gallstones, this suggests she may have calculous cholecystitis. No history could be obtained from this patient, there is no eye contact, she has the eyes closed does not respond to verbal commands Hospital Course Hospital Course: Patient with multiple comorbid conditions, chronically debilitated, bedbound, vent dependent, on tube feeds, right leg amputation, she was brought seen for evaluation of altered mental status, abdominal distention. A CT scan of the abdomen and pelvis with oral contrast was done, it showed dense consolidation in the right lower lobe worrisome for pneumonia on admission there was concern for acute cholecystitis.. She has acute hypoxemic respiratory failure due to pneumonia, she is vent dependent, there was concern she may have vent associated pneumonia secretion from the lower respiratory tract was obtained with deep suctioning, she was empirically treated with antibiotic to cover potential pathogens including MRSA, gram-negative organisms, she was seen in consultation by pulmonary Dr. Curseen. She remains a full code in the hospital she was seen by palliative care as well family insisted that she should remain a full code despite multiple comorbid conditions. She is nonambulatory she is bedbound. She has indwelling Palacios catheter polymicrobial was cultured from the Palacios including Pseudomonas, E. coli she has calculus cholecystitis, she was seen by the surgeon, it was felt that she was not a candidate for surgery because of multiple comorbid conditions she has hypercalcemia due to primary hyperparathyroidism this was treated with fluid therapy. There was hypoalbuminemia with associated anasarca she was treated temporarily with furosemide infusion. She has a lesion on the nose suspicious for neoplasm, she was seen by ENT this was excised, pathology result is pending she has anemia secondary to multifactorial etiology including sepsis. She was transfused with 2 units of packed red blood cells. She requires bed mattress, she is on oxepa tube feed Physical Exam Vital Signs: Temp Pulse Resp BP Pulse Ox 98.0 F 75 18 159/59 H 96 03/29/18 07:37 03/29/18 07:47 03/29/18 07:47 03/29/18 07:37 03/29/18 07:47 Intake & Output 03/28/18 03/29/18 03/30/18 06:59 06:59 06:59 Intake Total 2095 2022 Output Total 1075 830 Balance 1020 1192 Weight 91.3 kg 91.3 kg General appearance: PRESENT: no acute distress Eye exam: PRESENT: PERRLA Respiratory exam: PRESENT: rales Cardiovascular exam: PRESENT: +S1, +S2 GI/Abdominal exam: PRESENT: soft - She has a tue feed in place Extremities exam: PRESENT: left AKA, other - She has right leg amputation Neurological exam: PRESENT: alert Results Laboratory Results: 03/26/18 15:25 03/27/18 17:49 03/07/18 03/07/18 03/08/18 18:07 23:40 05:45 CK-MB (CK-2) 0.66 0.43 0.42 Troponin I 0.053 0.047 0.064 Impressions: Abdomen/Pelvis CT 03/07/18 08:52 IMPRESSION: Dense consolidation in the right lower lobe worrisome for pneumonia. Small parapneumonic effusion. Thick walled gallbladder with stones. Acute cholecystitis may be present Wall thickening and luminal narrowing distal sigmoid colon, worrisome for focal colitis. No adjacent abscess. Abdomen Ultrasound 03/07/18 12:49 IMPRESSION: Findings consistent with multiple gallstones. There is borderline thickening of the gallbladder wall. Other findings as noted above Head CT 03/08/18 00:00 IMPRESSION: 1. CHRONIC MICROVASCULAR ISCHEMIA. NO ACUTE IMAGING FINDINGS IN THE BRAIN. 2. RIGHT SPHENOID SINUS DISEASE. EVIDENCE OF ACUTE STROKE: NO. Guidance Fluoroscopy 03/20/18 00:00 IMPRESSION: SUCCESSFUL PLACEMENT OF A 5 FR DUAL LUMEN 31 CM PICC IN THE RIGHT BASILIC VEIN. Interventional Vascular Procedure 03/20/18 00:00 IMPRESSION: SUCCESSFUL PLACEMENT OF A 5 FR DUAL LUMEN 31 CM PICC IN THE RIGHT BASILIC VEIN. PICC Line Insertion 03/20/18 11:59 IMPRESSION: SUCCESSFUL PLACEMENT OF A 5 FR DUAL LUMEN 31 CM PICC IN THE RIGHT BASILIC VEIN. Thoracentesis Ultrasound 03/20/18 13:53 IMPRESSION: SUCCESSFUL THORACENTESIS USING ULTRASOUND GUIDANCE. Chest X-Ray 03/20/18 16:00 IMPRESSION: No pneumothorax status post thoracentesis. Findings as described. Qualifiers - * PATIENT BEING DISCHARGED WITH ANY OF THE FOLLOWING DIAGNOSIS: No
--- NOTE | 2018-03-29 11:12 | PDOC PROGRESS REPORT ---
Subjective Progress Note for:: 03/29/18 Subjective:: This 82-year-old white female patient has been previously seen, evaluated, and followed by ENT. Biopsies of the left nasal sidewall nodule or mass were completed yesterday, March 28. Final pathology is pending. The primary team is preparing to discharge the patient to home this week. Definitive management of the left nasal mass will proceed on an out patient basis which the primary team and the patient's daughter voiced an understanding of. Reason For Visit: VENTILATOR ASSOCIATED PNEUMONIA,CHRONIC Physical Exam Vital Signs: Temp Pulse Resp BP Pulse Ox 98.0 F 75 18 159/59 H 96 03/29/18 07:37 03/29/18 07:47 03/29/18 07:47 03/29/18 07:37 03/29/18 07:47 Intake & Output 03/28/18 03/29/18 03/30/18 06:59 06:59 06:59 Intake Total 2095 2022 Output Total 1075 830 Balance 1020 1192 Weight 91.3 kg 91.3 kg Results Laboratory Results: 03/26/18 15:25 03/27/18 17:49 03/07/18 03/07/18 03/08/18 18:07 23:40 05:45 CK-MB (CK-2) 0.66 0.43 0.42 Troponin I 0.053 0.047 0.064 Impressions: Abdomen/Pelvis CT 03/07/18 08:52 IMPRESSION: Dense consolidation in the right lower lobe worrisome for pneumonia. Small parapneumonic effusion. Thick walled gallbladder with stones. Acute cholecystitis may be present Wall thickening and luminal narrowing distal sigmoid colon, worrisome for focal colitis. No adjacent abscess. Abdomen Ultrasound 03/07/18 12:49 IMPRESSION: Findings consistent with multiple gallstones. There is borderline thickening of the gallbladder wall. Other findings as noted above Head CT 03/08/18 00:00 IMPRESSION: 1. CHRONIC MICROVASCULAR ISCHEMIA. NO ACUTE IMAGING FINDINGS IN THE BRAIN. 2. RIGHT SPHENOID SINUS DISEASE. EVIDENCE OF ACUTE STROKE: NO. Guidance Fluoroscopy 03/20/18 00:00 IMPRESSION: SUCCESSFUL PLACEMENT OF A 5 FR DUAL LUMEN 31 CM PICC IN THE RIGHT BASILIC VEIN. Interventional Vascular Procedure 03/20/18 00:00 IMPRESSION: SUCCESSFUL PLACEMENT OF A 5 FR DUAL LUMEN 31 CM PICC IN THE RIGHT BASILIC VEIN. PICC Line Insertion 03/20/18 11:59 IMPRESSION: SUCCESSFUL PLACEMENT OF A 5 FR DUAL LUMEN 31 CM PICC IN THE RIGHT BASILIC VEIN. Thoracentesis Ultrasound 03/20/18 13:53 IMPRESSION: SUCCESSFUL THORACENTESIS USING ULTRASOUND GUIDANCE. Chest X-Ray 03/20/18 16:00 IMPRESSION: No pneumothorax status post thoracentesis. Findings as described. Assessment & Plan - Diagnosis (1) Nasal mass Is this a current diagnosis for this admission?: Yes Plan: The primary team is preparing to discharge the patient to home this week. Final pathology is currently pending. Definitive management of the left nasal mass will proceed on an out patient basis which the primary team and the patient 's daughter voiced an understanding of. - Plan Summary Plan Summary: [place]
[2018-03-29] MEDS: AMLODIPINE BESYLATE 10 MG TABLET PEG SCH (12:18)
[2018-03-29] MEDS: FUROSEMIDE 40 MG TABLET PEG SCH (12:19)
[2018-03-29] MEDS: LACTOBACILLUS ACIDOPHILUS 250 MG TAB PEG SCH (12:19)
[2018-03-29] MEDS: ASPIRIN 81 MG TABLET, CHEWABLE PEG SCH (12:19)
[2018-03-29] MEDS: MEMANTINE HCL 10 MG TABLET PEG SCH (12:19)
[2018-03-29] MEDS: ASCORBIC ACID 500 MG TABLET PEG SCH (12:20)
[2018-03-29] MEDS: INSULIN DETEMIR 100 UNIT/ML 3 ML PEN SUBCUT SCH (12:21)
[2018-03-29] MEDS: NORMAL SALINE 10 ML SDV (SCHEDULED) IV SCH ×2 (12:21→21:04)
[2018-03-29] MEDS: INSULIN REG, HUMAN 100 UNIT/ML 3 ML VIAL (PYX) SUBCUT PRN (13:13)
[2018-03-30] MEDS: IPRATROPIUM/ALBUTEROL 0.5-2.5 MG/3 ML AMPUL NEB SCH ×2 (02:06→08:14)
[2018-03-30] MEDS: HEPARIN SOD (PORCINE) 5,000 UNIT/ML 1 ML SYRINGE SUBCUT SCH (05:53)
[2018-03-30] MEDS: ACETYLCYSTEINE 20% SOLN 800 MG/4 ML VIAL.NEB NEB SCH (08:14)
[2018-03-30] MEDS: LACTOBACILLUS ACIDOPHILUS 250 MG TAB PEG SCH (09:14)
[2018-03-30] MEDS: AMLODIPINE BESYLATE 10 MG TABLET PEG SCH (09:14)
[2018-03-30] MEDS: MEMANTINE HCL 10 MG TABLET PEG SCH (09:14)
[2018-03-30] MEDS: FUROSEMIDE 40 MG TABLET PEG SCH (09:14)
[2018-03-30] MEDS: INSULIN DETEMIR 100 UNIT/ML 3 ML PEN SUBCUT SCH (09:15)
[2018-03-30] MEDS: ASPIRIN 81 MG TABLET, CHEWABLE PEG SCH (09:15)
[2018-03-30] MEDS: ASCORBIC ACID 500 MG TABLET PEG SCH (09:15)
[2018-03-30] MEDS: NORMAL SALINE 10 ML SDV (SCHEDULED) IV SCH (09:17)
[2018-03-30 13:44] VITALS: BP 121/53
== END 2018-03-30 14:10 | disposition home or self-care (01) | DRG 207 ==
LOC: ER 08:42 → EH 15:18 → 3N 03-08 00:12
PROVIDERS: ADMIT Internal Medicine; ATTEND Internal Medicine
PROC: 5A1955Z Respiratory Ventilation, Greater than 96 Consecutive Hours (ICD-10-PCS; principal; 2018-03-07)
PROC: 05JY3ZZ Inspection of Upper Vein, Percutaneous Approach (ICD-10-PCS; 2018-03-17)
PROC: 06H033Z Insertion of Infusion Device into Inferior Vena Cava, Percutaneous Approach (ICD-10-PCS; 2018-03-20)
PROC: B5191ZA Fluoroscopy of Inferior Vena Cava using Low Osmolar Contrast, Guidance (ICD-10-PCS; 2018-03-20)
PROC: 0W993ZZ Drainage of Right Pleural Cavity, Percutaneous Approach (ICD-10-PCS; 2018-03-20)
PROC: 30233N1 Transfusion of Nonautologous Red Blood Cells into Peripheral Vein, Percutaneous Approach (ICD-10-PCS; 2018-03-25)
PROC: 0HB1XZX Excision of Face Skin, External Approach, Diagnostic (ICD-10-PCS; 2018-03-28)
DX: J96.01 Acute respiratory failure with hypoxia (principal); J69.0 Pneumonitis due to inhalation of food and vomit; G93.41 Metabolic encephalopathy; J95.851 Ventilator associated pneumonia; T83.511A Infection and inflammatory reaction due to indwelling urethral catheter, initial encounter; N39.0 Urinary tract infection, site not specified; I13.0 Hypertensive heart and chronic kidney disease with heart failure and stage 1 through stage 4 chronic kidney disease, or unspecified chronic kidney disease; K80.00 Calculus of gallbladder with acute cholecystitis without obstruction; I50.9 Heart failure, unspecified; E11.22 Type 2 diabetes mellitus with diabetic chronic kidney disease; N18.9 Chronic kidney disease, unspecified; I73.9 Peripheral vascular disease, unspecified; J44.9 Chronic obstructive pulmonary disease, unspecified; Z93.0 Tracheostomy status; Z53.8 Procedure and treatment not carried out for other reasons; L98.9 Disorder of the skin and subcutaneous tissue, unspecified; E21.0 Primary hyperparathyroidism; R19.7 Diarrhea, unspecified; D64.9 Anemia, unspecified; Z74.01 Bed confinement status; E78.5 Hyperlipidemia, unspecified; B95.2 Enterococcus as the cause of diseases classified elsewhere; B96.5 Pseudomonas (aeruginosa) (mallei) (pseudomallei) as the cause of diseases classified elsewhere; F03.90 Unspecified dementia, unspecified severity, without behavioral disturbance, psychotic disturbance, mood disturbance, and anxiety; E88.09 Other disorders of plasma-protein metabolism, not elsewhere classified; Z89.511 Acquired absence of right leg below knee; Z79.82 Long term (current) use of aspirin; Z79.4 Long term (current) use of insulin; Z96.641 Presence of right artificial hip joint; Z86.711 Personal history of pulmonary embolism; Z88.8 Allergy status to other drugs, medicaments and biological substances
CPT/HCPCS: 32555; 36415; 36430; 36569; 36600; 51702; 70450; 71045; 74176; 76705; 76937; 77001; 80048; 80053; 80061; 80076; 80202; 80307; 81001; 82140; 82150; 82553; 82565; 82803; 82945; 82962; 83036; 83605; 83615; 83690; 83735; 84155; 84157; 84439; 84443; 84481; 84484; 85025; 85610; 85730; 86850; 86900; 86901; 86920; 87015; 87040; 87070; 87075; 87086; 87088; 87101; 87116; 87186; 87205; 87206; 87252; 87493; 88305; 89050; 93005; 93010; 94002; 94003; 94667; 94668; 96361; 96365; 96367; 99291; C1751; J1642; J1644; J1815; J1940; J2543; J3370; J3480; J3490; J7030; J7050; J7060; J7620; P9016; S0119

== ENCOUNTER 2018-04-06 07:31 | Inpatient (IN) | payer MEDICARE, MEDICAID ==
[2018-04-06] MEDS ORDERED: NORMAL SALINE 1000 ML 1,000 ML IV ONE (07:37)
--- NOTE | 2018-04-06 07:40 | ER Document Report ---
ED General - General Stated Complaint: ALTERED MENTAL STATUS Time Seen by Provider: 04/06/18 07:37 TRAVEL OUTSIDE OF THE [place] IN LAST 30 DAYS: No - HPI Patient complains to provider of: AMS Notes: Chronically and critically ill patient presents altered mental status and fever. 82-year-old female who is trach dependent on chronic ventilator presents febrile and altered per family. Patient was just hospitalized within the last week or 2 for urinary tract infection sepsis. Had been doing better at home with the last 2 days getting more somnolent. Today the family could not arouse her she was febrile. They deny any cough or sputum production, patient is responsive to pain moving all 4 extremities but is an unreliable review of systems. - Related Data Allergies/Adverse Reactions: alprazolam [From Xanax] Allergy (Verified 03/07/18 09:34) iodine [Iodine] Allergy (Verified 03/07/18 09:34) quetiapine fumarate [From Seroquel] Allergy (Verified 03/07/18 09:34) Past Medical History - Social History Smoking Status: Unknown if Ever Smoked Family History: Reviewed & Not Pertinent - Past Medical History Cardiac Medical History: Reports: Hx Congestive Heart Failure, Hx Hypercholesterolemia, Hx Hypertension, Hx Peripheral Vascular Disease, Hx Pulmonary Embolism Pulmonary Medical History: Reports: Hx COPD, Hx Pneumonia - aspiration Endocrine Medical History: Reports: Hx Diabetes Mellitus Type 1, Hx Diabetes Mellitus Type 2 Renal/ Medical History: Denies: Hx Peritoneal Dialysis Psychiatric Medical History: Reports: Hx Dementia Denies: Hx Depression Infectious Medical History: Reports: Hx C-Diff Past Surgical History: Reports: Hx Abdominal Surgery - GI tube, Hx Bowel Surgery , Hx Cardiac Surgery - stents, Hx Orthopedic Surgery - Shoulder. 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 - Immunizations Hx Diphtheria, Pertussis, Tetanus Vaccination: Yes Review of Systems - Review of Systems -: Yes ROS unobtainable due to patient's medical condition - critically ill Physical Exam - Notes Notes: PHYSICAL EXAMINATION: GENERAL: Well-appearing, well-nourished and in severe acute distres. HEAD: Atraumatic, normocephalic. EYES: Pupils equal round and reactive to light, sclera anicteric, conjunctiva are normal. ENT: nares patent, oropharynx clear without exudates. Moist mucous membranes. NECK: trach and vent tube in place LUNGS: rhonchi throughout , no wheezing HEART:tachycardia ABDOMEN: Soft, nontender, normoactive bowel sounds. No guarding, no rebound. No masses appreciated. EXTREMITIES: Normal range of motion, no pitting or edema. No cyanosis. NEUROLOGICAL: altered mental status. Course - Re-evaluation Re-evalutation: 04/06/18 08:25 Critically ill-appearing female presents encephalopathy, fever. Patient has history of urinary tract infections and pneumonia. Patient requires 2 large- bore IVs emergently establish fluid resuscitation begins. Given patient's lengthy history of CHF decision made not to resuscitate 30 mL's per kilogram. Blood cultures drawn extensive labs also drawn. 04/06/18 09:04 Critically ill-appearing patient given fluid resuscitation started on dual broad -spectrum antibiotics including vancomycin cefepime. Patient's urine shows no signs of infection. Patient has a profound leukocytosis with left shift., A normal lactic acid, family elevated calcium, troponin also mildly elevated. Patient's proBNP very high at this time. Patient will be admitted to the ICU for definitive management. - Laboratory Result Diagrams: 04/06/18 07:40 04/06/18 07:40 Laboratory results interpreted by me: 04/06/18 04/06/18 04/06/18 07:40 07:40 07:40 WBC 29.7 H RBC 3.56 L Hgb 9.2 L Hct 29.3 L MCH 25.8 L MCHC 31.3 L RDW 19.8 H Seg Neuts % (Manual) 86 H Lymphocytes % (Manual) 6 L Abs Neuts (Manual) 26.4 H Abs Monocytes (Manual) 1.5 H Sodium 147.9 H Carbon Dioxide 31 H BUN 46 H Est GFR (Non-Af Amer) 53 L Glucose 165 H Calcium 12.0 H* Direct Bilirubin 0.5 H AST 60 H Alkaline Phosphatase 288 H NT-Pro-B Natriuret Pep 40165 H Urine Protein Urine Glucose (UA) Urine Ascorbic Acid 04/06/18 08:30 WBC RBC Hgb Hct MCH MCHC RDW Seg Neuts % (Manual) Lymphocytes % (Manual) Abs Neuts (Manual) Abs Monocytes (Manual) Sodium Carbon Dioxide BUN Est GFR (Non-Af Amer) Glucose Calcium Direct Bilirubin AST Alkaline Phosphatase NT-Pro-B Natriuret Pep Urine Protein 100 H Urine Glucose (UA) 50 H Urine Ascorbic Acid 40 H Critical Care Note - Critical Care Note Total time excluding time spent on procedures (mins): 38 Discharge - Discharge Clinical Impression: Encephalopathy, Hypercalcemia Sepsis Qualifiers: Sepsis type: sepsis due to unspecified organism Qualified Code(s): A41.9 - Sepsis, unspecified organism Pneumonia Qualifiers: Pneumonia type: due to unspecified organism Laterality: right Lung location: middle lobe of lung Qualified Code(s): J18.1 - Lobar pneumonia, unspecified organism Disposition: ADMITTED INPATIENT Admitting Provider: Fermin Unit Admitted: ICU Referrals: BAKARI BECKER MD [Primary Care Provider] - Follow up as needed
[2018-04-06 08:14] LABS: HEMATOCRIT 29.3 % (36.0-47.0); HEMOGLOBIN 9.2 g/dL (12.0-15.5); MEAN CORPUSCULAR HEMOGLOBIN 25.8 pg (27.0-33.4); MEAN CORPUSCULAR HGB CONC 31.3 g/dL (32.0-36.0); MEAN CORPUSCULAR VOLUME 82 fl (80-97); PLATELET COUNT 371 10^3/uL (150-450); RED BLOOD COUNT 3.56 10^6/uL (3.72-5.28); RED CELL DISTRIBUTION WIDTH 19.8 % (11.5-14.0); WHITE BLOOD COUNT 29.7 10^3/uL (4.0-10.5)
[2018-04-06 08:25] LABS: ALANINE AMINOTRANSFERASE 34 U/L (9-52); ALBUMIN 3.7 g/dL (3.5-5.0); ALKALINE PHOSPHATASE 288 U/L (38-126); ANION GAP 13 (5-19); ASPARTATE AMINO TRANSFERASE 60 U/L (14-36); BILIRUBIN,DIRECT 0.5 mg/dL (0.0-0.4); BILIRUBIN,TOTAL 0.6 mg/dL (0.2-1.3); BLOOD UREA NITROGEN 46 mg/dL (7-20); CARBON DIOXIDE 31 mmol/L (22-30); CHLORIDE 104 mmol/L (98-107); GLUCOSE 165 mg/dL (75-110); POTASSIUM 4.7 mmol/L (3.6-5.0); SODIUM 147.9 mmol/L (137-145); TOTAL PROTEIN 8.1 g/dL (6.3-8.2)
[2018-04-06] MEDS ORDERED: CEFEPIME 2 GM/D5W RTU 2 GM/50 ML RTUPB IV ONE (08:25)
[2018-04-06] MEDS ORDERED: VANCOMYCIN HCL INJ 1000 MG VIAL IV ONE (08:25)
[2018-04-06 08:33] LABS: ABSOLUTE LYMPHOCYTES# (MANUAL) 1.8 10^3/uL (0.5-4.7); ABSOLUTE MONOCYTES # (MANUAL) 1.5 10^3/uL (0.1-1.4); ABSOLUTE NEUTROPHILS# (MANUAL) 26.4 10^3/uL (1.7-8.2); BAND NEUTROPHILS % (MANUAL) 3 % (3-5); BASOPHILS % (MANUAL) 0 % (0-2); EOSINOPHILS % (MANUAL) 0 % (0-6); LYMPHOCYTES % (MANUAL) 6 % (13-45); MONOCYTES % (MANUAL) 5 % (3-13); SEGMENTED NEUTROPHILS % (MAN) 86 % (42-78); TOTAL CELLS COUNTED 100
[2018-04-06 08:34] LABS: ANISOCYTOSIS 2+; PLATELET COMMENT ADEQUATE; TARGET CELLS SLIGHT; TOXIC GRANULATION 1+; TOXIC VACUOLATION PRESENT
[2018-04-06 08:41] LABS: TROPONIN I 0.066 ng/mL
--- NOTE | 2018-04-06 08:45 | RADIOLOGY REPORT (SQ) ---
EXAM DESCRIPTION: CHEST SINGLE VIEW COMPLETED DATE/TIME: 04/06/2018 7:56 am REASON FOR STUDY: fever COMPARISON: 03/20/2018 EXAM PARAMETERS: NUMBER OF VIEWS: One view. TECHNIQUE: Single frontal radiographic view of the chest acquired. RADIATION DOSE: NA LIMITATIONS: None. FINDINGS: LUNGS AND PLEURA: Increasing airspace consolidation in the mid-lower lungs, more so on th e right. Bilateral pleural effusions are again noted. MEDIASTINUM AND HILAR STRUCTURES: No masses. Contour normal. HEART AND VASCULAR STRUCTURES: The cardiac margins are partially obscured by the underlying parenchy mal changes. Cardiomegaly is suggested. Pulmonary vascular congestion. BONES: No acute findings. HARDWARE: Interval removal of Right PICC line. Tracheostomy tube, unchanged finding. OTHER: No other significant finding. IMPRESSION: 1. Since the prior examination dated 03/20/2018, increasing airspace consolidation in the mid-lower lungs, more so on the right, and bilateral pleural effusions. 2. Cardiomegaly and pulmonary vascular congestion. 3 Interval removal of Right PICC line. TECHNICAL DOCUMENTATION: JOB ID: [id number] [employer]- All Rights Reserved Reading location - IP/workstation name: [email or web address]
[2018-04-06 08:58] LABS: APPEARANCE,URINE SLIGHTLY-CLOUDY; BILIRUBIN,URINE NEGATIVE (NEGATIVE); COLOR,URINE YELLOW; GLUCOSE, URINE 50 mg/dL (NEGATIVE); KETONES,URINE NEGATIVE (NEGATIVE); LEUKOCYTE ESTERASE,URINE NEGATIVE (NEGATIVE); NITRITE,URINE NEGATIVE (NEGATIVE); PROTEIN,URINE 100 mg/dL (NEGATIVE); URINE SPECIFIC GRAVITY 1.014; UROBILINOGEN,URINE NEGATIVE mg/dL (<2.0)
[2018-04-06 09:13] LABS: ARTERIAL BLOOD BASE EXCESS 4.7 mmol/L; ARTERIAL BLOOD FIO2 6L; ARTERIAL BLOOD H2CO3 2.03 mmol/L (1.05-1.35); ARTERIAL BLOOD HCO3 32.4 mmol/L (20-26); ARTERIAL BLOOD O2 SATURATION 94.1 % (94-98); ARTERIAL BLOOD PCO2 67.3 mmHg (35-45); ARTERIAL BLOOD PO2 79.3 mmHg (80-100); ARTERIAL BLOOD TOTAL CO2 34.4 mmol/L (21-25)
[2018-04-06] MEDS: NORMAL SALINE 1000 ML 1,000 ML IV PRN (13:44)
[2018-04-06] MEDS: IPRATROPIUM/ALBUTEROL 0.5-2.5 MG/3 ML AMPUL NEB SCH ×2 (17:23→20:08)
--- NOTE | 2018-04-06 18:39 | PDOC CONSULTATION ---
Consultation Consult Date: 04/06/18 Attending physician:: BAKARI BECKER Consult reason:: respiratory failure History of Present Illness Admission Date/PCP: 04/06/18 09:22 BAKARI BECEKR MD History of Present Illness: BRIANA BRADY is a 82 year old female multiple admissions well known to pulmonary service returns with fever return of effusion she is colonized with multiple infections and has been to [facility] and [facility] many time Past Medical History Cardiac Medical History: Reports: Congestive Heart Failure, Hyperlipidema, Hypertension, Peripheral Vascular Disease, Pulmonary Embolism Pulmonary Medical History: Reports: Chronic Obstructive Pulmonary Disease (COPD) , Pneumonia - aspiration Endocrine Medical History: Reports: Diabetes Mellitus Type 1, Diabetes Mellitus Type 2 Psychiatric Medical History: Reports: Dementia Denies: Depression Infectious Medical History: Reports: Clostridium Difficile Past Surgical History Past Surgical History: Reports: Orthopedic Surgery - Shoulder. 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 Social History Information Source: Relative, [facility] Records Smoking Status: Unknown if Ever Smoked Frequency of Alcohol Use: None Hx Recreational Drug Use: No Drugs: None Hx Prescription Drug Abuse: No Do you have pets?: No Have you had any respiratory illnesses as a child?: No Have you been exposed to any sick contacts recently?: No Have you had any recent respiratory illnesses?: No Have you travelled outside of [place] in the past 12 months?: No Family History Parental Family History Reviewed: No Children Family History Reviewed: No Sibling(s) Family History Reviewed.: No Medication/Allergy Home Medications: Acetaminophen [Tylenol 325 mg Tablet] 650 mg PEG BIDP PRN 04/06/18 Acidoph/L.bulg/Bif.b/S.thermop [Bel-Bid Caplet] 1 each PEG DAILY 04/06/18 Amlodipine Besylate [Norvasc 10 mg Tablet] 10 mg PEG DAILY 04/06/18 Ascorbic Acid [Vitamin C 500 mg Tablet] 500 mg PEG DAILY 04/06/18 Aspirin [Aspirin 81 mg Chewable Tablet] 81 mg PEG DAILY 04/06/18 Budesonide [Pulmicort Neb 0.5 mg/2 ml Ampul] 0.5 mg NEB RTQ12 04/06/18 Furosemide [Lasix 40 mg Tablet] 40 mg PEG DAILY 04/06/18 Insulin Aspart [Novolog Flexpen] 0 unit SUBCUT .SLD SCALE 04/06/18 Insulin Detemir [Levemir Flextouch] 10 unit SQ DAILY 04/06/18 Ipratropium/Albuterol Sulfate [Duoneb 3 ml Ampul] 3 ml NEB RTQ6 04/06/18 Memantine HCl [Namenda 10 mg Tablet] 10 mg PEG DAILY 04/06/18 Multivitamin [Multiple Vitamins] 1 each PEG DAILY 04/06/18 Ondansetron HCl [Zofran 8 mg Tablet] 8 mg PEG Q8HP PRN 04/06/18 Sennosides/Docusate Sodium [Senna-S Tablet] 1 each PEG DAILYP PRN 04/06/18 Allergies/Adverse Reactions: alprazolam [From Xanax] Allergy (Verified 03/07/18 09:34) iodine [Iodine] Allergy (Verified 03/07/18 09:34) quetiapine fumarate [From Seroquel] Allergy (Verified 03/07/18 09:34) Review of Systems ROS unobtainable: Due to endotracheal tube, Due to mental status Physical Exam Vital Signs: Temp Pulse Resp BP Pulse Ox 97.5 F 85 22 H 147/63 H 100 04/06/18 16:58 04/06/18 16:58 04/06/18 16:58 04/06/18 16:58 04/06/18 16:58 Intake & Output 04/05/18 04/06/18 04/07/18 06:59 06:59 06:59 Output Total 300 Balance -300 Weight 81.3 kg General appearance: PRESENT: no acute distress, disheveled, obese. ABSENT: cooperative Head exam: PRESENT: atraumatic, normocephalic Eye exam: PRESENT: conjunctiva pale. ABSENT: nystagmus, periorbital swelling, scleral icterus Mouth exam: PRESENT: dry mucosa, neck supple, tongue midline Neck exam: PRESENT: tracheostomy. ABSENT: carotid bruit, JVD, lymphadenopathy, thyromegaly, tracheal deviation Respiratory exam: PRESENT: decreased breath sounds, prolonged expiratory phas, rales, rhonchi, unlabored, wheezes. ABSENT: retraction, stridor Cardiovascular exam: PRESENT: RRR, +S1, +S2 Pulses: PRESENT: normal radial pulses GI/Abdominal exam: PRESENT: soft, other - PEG tube Extremities exam: ABSENT: calf tenderness, clubbing Musculoskeletal exam: ABSENT: ambulatory, deformity, dislocation Neurological exam: ABSENT: alert, awake Skin exam: PRESENT: dry, warm, other - multiple decubiti and skin tears Results Impressions: Chest X-Ray 04/06/18 07:38 IMPRESSION: 1. Since the prior examination dated 03/20/2018, increasing airspace consolidation in the mid-lower lungs, more so on the right, and bilateral pleural effusions. 2. Cardiomegaly and pulmonary vascular congestion. 3 Interval removal of Right PICC line. Assessment & Plan - Diagnosis (1) Sepsis Qualifiers: Sepsis type: sepsis due to unspecified organism Qualified Code(s): A41.9 - Sepsis, unspecified organism Is this a current diagnosis for this admission?: Yes Plan: no pos culture pna vs urine (2) Acute and chronic respiratory failure, unspecified whether with hypoxia or hypercapnia Is this a current diagnosis for this admission?: Yes Plan: tracheostomy will swithch to institutional vent (3) Debilitated patient Is this a current diagnosis for this admission?: Yes Plan: multiple decubiti skin tear bed ridden
[2018-04-06 18:51] LABS: INTERNATIONAL RATION (INR) 1.18; PROTHROMBIN TIME 15.6 SEC (11.4-15.4)
[2018-04-06 18:52] LABS: PARTIAL THROMBOPLASTIN TIME 25.8 SEC (23.5-35.8)
--- NOTE | 2018-04-06 20:42 | EKG REPORT ---
SEVERITY:- ABNORMAL ECG - SINUS RHYTHM FIRST DEGREE AV BLOCK LEFT AXIS DEVIATION LEFT VENTRICULAR HYPERTROPHY : Confirmed by: Ketty Mendoza MD 06-Apr-2018 20:41:56
[2018-04-06] MEDS ORDERED: SENNOSIDES/DOCUSATE 8.6-50 MG 1 EACH TABLET PEG PRN (21:03)
--- NOTE | 2018-04-06 21:03 | PDOC H&P ---
History of Present Illness Admission Date/PCP: 04/06/18 09:22 BAKARI BECKER MD History of Present Illness: BRIANA BRADY is a 82 year old female.She was discharged from this hospital about 7 days ago after almost a month of hospital admission. 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 She was transferred to the emergency room for evaluation of altered mental status. She has a history of multiple infection including MRSA, VRE, gram-negative organisms , the last time she had left pleural effusion she underwent thoracentesis, the chest x-ray from this admission again showed recurrent pleural effusion. I had a long discussion with patient's daughter about hospice. The last time she was in the hospital she was seen by palliative care and also hospice she still a full code which is inappropriate for this patient. I did not know what it would take to convince this family that this patient should be hospice care she has had multiple hospitalization between [facility] in [place] and [facility] in [facility], the last time she was admitted, LTAC in [place] refused to accept her because of multiple hospital admission.She has a mass on the nose the last time she was admitted the mass was excised, the pathology came back consistent with basal cell carcinoma. She ordinarily needs to have a wide excision of the nose, This is typically outpatient procedure done by the global creative chairman ,she has chronic indwelling Palaciso catheter, the urinalysis is grossly abnormal, she has infected decubitus ulcer she is altered, depressed mental status could not obtain any history from this patient Past Medical History Cardiac Medical History: Reports: Congestive Heart Failure, Hyperlipidema, Hypertension, Peripheral Vascular Disease, Pulmonary Embolism Pulmonary Medical History: Reports: Chronic Obstructive Pulmonary Disease (COPD) , Pneumonia - aspiration Endocrine Medical History: Reports: Diabetes Mellitus Type 2 Psychiatric Medical History: Reports: Dementia Infectious Medical History: Reports: Clostridium Difficile, Methicillin- Resistant Staph Aureus, Vancomycin-Resistant Enterococci Past Surgical History Past Surgical History: Reports: Orthopedic Surgery - Shoulder. 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 Social History Smoking Status: Unknown if Ever Smoked Frequency of Alcohol Use: None Hx Recreational Drug Use: No Drugs: None Hx Prescription Drug Abuse: No Family History Family History: Reviewed & Not Pertinent Parental Family History Reviewed: Yes Children Family History Reviewed: Yes Sibling(s) Family History Reviewed.: Yes Medication/Allergy Home Medications: Acetaminophen [Tylenol 325 mg Tablet] 650 mg PEG BIDP PRN 04/06/18 Acidoph/L.bulg/Bif.b/S.thermop [Bel-Bid Caplet] 1 each PEG DAILY 04/06/18 Amlodipine Besylate [Norvasc 10 mg Tablet] 10 mg PEG DAILY 04/06/18 Ascorbic Acid [Vitamin C 500 mg Tablet] 500 mg PEG DAILY 04/06/18 Aspirin [Aspirin 81 mg Chewable Tablet] 81 mg PEG DAILY 04/06/18 Budesonide [Pulmicort Neb 0.5 mg/2 ml Ampul] 0.5 mg NEB RTQ12 04/06/18 Furosemide [Lasix 40 mg Tablet] 40 mg PEG DAILY 04/06/18 Insulin Aspart [Novolog Flexpen] 0 unit SUBCUT .SLD SCALE 04/06/18 Insulin Detemir [Levemir Flextouch] 10 unit SQ DAILY 04/06/18 Ipratropium/Albuterol Sulfate [Duoneb 3 ml Ampul] 3 ml NEB RTQ6 04/06/18 Memantine HCl [Namenda 10 mg Tablet] 10 mg PEG DAILY 04/06/18 Multivitamin [Multiple Vitamins] 1 each PEG DAILY 04/06/18 Ondansetron HCl [Zofran 8 mg Tablet] 8 mg PEG Q8HP PRN 04/06/18 Sennosides/Docusate Sodium [Senna-S Tablet] 1 each PEG DAILYP PRN 04/06/18 Allergies/Adverse Reactions: alprazolam [From Xanax] Allergy (Verified 03/07/18 09:34) iodine [Iodine] Allergy (Verified 03/07/18 09:34) quetiapine fumarate [From Seroquel] Allergy (Verified 03/07/18 09:34) Review of Systems ROS unobtainable: Due to mental status Physical Exam Vital Signs: Temp Pulse Resp BP Pulse Ox 97.6 F 59 L 12 134/52 H 99 04/06/18 20:10 04/06/18 20:10 04/06/18 20:10 04/06/18 20:10 04/06/18 20:10 Intake & Output 04/05/18 04/06/18 04/07/18 06:59 06:59 06:59 Intake Total 195 Output Total 585 Balance -390 Weight 81.3 kg General appearance: PRESENT: mild distress Eye exam: PRESENT: PERRLA Respiratory exam: PRESENT: wheezes Cardiovascular exam: PRESENT: +S1, +S2 GI/Abdominal exam: PRESENT: soft Neurological exam: PRESENT: alert, CN II-XII grossly intact Results Laboratory Results: 04/06/18 18:00 Total Protein 7.0 Impressions: Chest X-Ray 04/06/18 07:38 IMPRESSION: 1. Since the prior examination dated 03/20/2018, increasing airspace consolidation in the mid-lower lungs, more so on the right, and bilateral pleural effusions. 2. Cardiomegaly and pulmonary vascular congestion. 3 Interval removal of Right PICC line. Assessment & Plan - Diagnosis (1) Acute hypoxemic respiratory failure Is this a current diagnosis for this admission?: Yes (2) Pneumonia Qualifiers: Pneumonia type: due to unspecified organism Laterality: bilateral Lung location: unspecified part of lung Qualified Code(s): J18.9 - Pneumonia, unspecified organism Is this a current diagnosis for this admission?: Yes (3) Basal cell carcinoma (BCC) of ala nasi Is this a current diagnosis for this admission?: Yes (4) Metabolic encephalopathy Is this a current diagnosis for this admission?: Yes (5) Urinary tract infection associated with indwelling urethral catheter Qualifiers: Encounter type: initial encounter Qualified Code(s): T83.511A - Infection and inflammatory reaction due to indwelling urethral catheter, initial encounter ; N39.0 - Urinary tract infection, site not specified; N39.0 - Urinary tract infection, site not specified Is this a current diagnosis for this admission?: Yes (6) Pleural effusion Is this a current diagnosis for this admission?: Yes (7) Sepsis Qualifiers: Sepsis type: sepsis due to unspecified organism Qualified Code(s): A41.9 - Sepsis, unspecified organism Is this a current diagnosis for this admission?: Yes - Plan Summary Plan Summary: Patient is admitted started IV antibiotic overall prognosis is extremely poor in this patient consultation obtained from pulmonary
[2018-04-06] MEDS: AMPICILLIN SODIUM/SULBACTAM NA 3 GM in NORMAL SALINE 100 ML IV SCH (23:22)
[2018-04-06] MEDS ORDERED: DEXTROSE 40% GEL 15 GM TUBE PO PRN (23:29)
[2018-04-06] MEDS ORDERED: DEXTROSE 50%-WATER SYRINGE 25 GM/50 ML DOSE IV PRN (23:29)
[2018-04-06] MEDS ORDERED: GLUCAGON,HUMAN RECOMB 1 MG INJ IM PRN (23:29)
[2018-04-06] MEDS ORDERED: DEXTROSE 50%-WATER SYRINGE 12.5 GM/25 ML DOSE IV PRN (23:29)
[2018-04-06] MEDS ORDERED: DEXTROSE 40% GEL 15 GM TUBE X 2 PO PRN (23:29)
[2018-04-07] MEDS: INSULIN LISPRO 100 UNIT/ML 3 ML VIAL SUBCUT PRN ×4 (00:58→23:55)
[2018-04-07] MEDS: BUDESONIDE NEB 0.5 MG/2 ML AMPUL NEB SCH ×2 (01:06→19:52)
[2018-04-07] MEDS: IPRATROPIUM/ALBUTEROL 0.5-2.5 MG/3 ML AMPUL NEB SCH ×5 (01:06→19:52)
[2018-04-07] MEDS: AMPICILLIN SODIUM/SULBACTAM NA 3 GM in NORMAL SALINE 100 ML IV SCH ×4 (05:48→23:14)
[2018-04-07 05:58] LABS: ARTERIAL BLOOD BASE EXCESS 5.3 mmol/L; ARTERIAL BLOOD H2CO3 1.38 mmol/L (1.05-1.35); ARTERIAL BLOOD HCO3 30.1 mmol/L (20-26); ARTERIAL BLOOD O2 SATURATION 95.1 % (94-98); ARTERIAL BLOOD PCO2 45.9 mmHg (35-45); ARTERIAL BLOOD PH 7.44 (7.35-7.45); ARTERIAL BLOOD PO2 73.4 mmHg (80-100); ARTERIAL BLOOD TOTAL CO2 31.5 mmol/L (21-25)
[2018-04-07 05:59] LABS: ARTERIAL BLOOD FIO2 40%
[2018-04-07] MEDS ORDERED: LACTOBACILLUS ACIDOPHILUS 250 MG TAB PEG SCH (10:00)
[2018-04-07] MEDS ORDERED: MULTIVITAMIN TABLET PO SCH (10:00)
[2018-04-07] MEDS: FUROSEMIDE 40 MG TABLET PEG SCH (11:57)
[2018-04-07] MEDS: MEMANTINE HCL 10 MG TABLET PEG SCH (11:58)
[2018-04-07] MEDS: ASCORBIC ACID 500 MG TABLET PEG SCH (11:58)
[2018-04-07] MEDS: AMLODIPINE BESYLATE 10 MG TABLET PEG SCH (11:59)
[2018-04-07] MEDS: INSULIN DETEMIR 100 UNIT/ML 3 ML PEN SUBCUT SCH (12:01)
[2018-04-07] MEDS: NORMAL SALINE 1000 ML 1,000 ML IV PRN (12:03)
[2018-04-07] MEDS: ASPIRIN 81 MG TABLET, CHEWABLE PEG SCH (12:09)
[2018-04-07] MEDS ORDERED: LACTOBACILLUS ACIDOPHILUS 250 MG TAB PEG ONE (12:30)
[2018-04-07] MEDS ORDERED: MULTIVITAMINS W-IRON TABLET, CHEWABLE PEG ONE (14:00)
--- NOTE | 2018-04-07 14:06 | RADIOLOGY REPORT (SQ) ---
EXAM DESCRIPTION: CHEST SINGLE VIEW COMPLETED DATE/TIME: 04/07/2018 1:55 pm REASON FOR STUDY: S/P RT THORACENTESIS COMPARISON: 04/06/2018 EXAM PARAMETERS: NUMBER OF VIEWS: One view. TECHNIQUE: Single frontal radiographic view of the chest acquired. RADIATION DOSE: NA LIMITATIONS: None. FINDINGS: LUNGS AND PLEURA: There has been interval decrease in the size of the right pleural effusi on status post right-sided thoracentesis. No pneumothorax is seen. There has been interval developm ent of complete opacification of the left hemithorax presumably related to a combination of atelectas is/infiltrate and pleural effusion. MEDIASTINUM AND HILAR STRUCTURES: Stable change HEART AND VASCULAR STRUCTURES: Cardiac silhouette is obscured due to adjacent densities. BONES: No acute findings. HARDWARE: Tracheostomy tube is unchanged in position OTHER: No other significant finding. IMPRESSION: Interval decrease in size of the right pleural effusion status post right-sided thoracen tesis. No pneumothorax is seen. Interval development of complete opacification of the left hemithor ax as noted above. Other findings as noted above. TECHNICAL DOCUMENTATION: JOB ID: [id number] [employer]- All Rights Reserved Reading location - IP/workstation name: [email or web address]
--- NOTE | 2018-04-07 14:49 | RADIOLOGY REPORT (SQ) ---
EXAM DESCRIPTION: U/S THORACENTESIS WITH IMAGING COMPLETED DATE/TIME: 04/07/2018 2:04 pm REASON FOR STUDY: r pleural effusion COMPARISON: None. RADIATION DOSE: None LIMITATIONS: None. PROCEDURE: Procedure, risks, benefit, and alternative explained to patient who then gave written con sent. The right chest wall was marked using ultrasound guidance. A time-out was called for correct marking verification. Chest prepped and draped using sterile technique. Local anesthesia achieved us ing 10 ml of 1% lidocaine injection. A 6 Bah[place] Qdtd-Z-Trugavdf was introduced into the right pleura l space. Fluid was aspirated. The catheter was removed and the entry site was covered with sterile bandage. No immediate complications noted. Images acquired during the procedure were stored on PACS. FINDINGS: ENTRY SITE: Right lower hemithorax posteriorly FLUID VOLUME: 450 mL FLUID ANALYSIS: Straw-colored fluid OTHER: No other significant finding IMPRESSION: SUCCESSFUL THORACENTESIS USING ultrasound GUIDANCE. COMMENT: Patient medication list reviewed: Yes TECHNICAL DOCUMENTATION: JOB ID: [id number] [employer]- All Rights Reserved Reading location - IP/workstation name: [facility]
[2018-04-07 14:59] LABS: FLUID APPEARANCE CLEAR; FLUID COLOR YELLOW; FLUID TYPE PLEURAL; FLUID VISCOSITY LIQUID
--- NOTE | 2018-04-07 17:18 | RADIOLOGY REPORT (SQ) ---
EXAM DESCRIPTION: CHEST SINGLE VIEW COMPLETED DATE/TIME: 04/07/2018 4:58 pm REASON FOR STUDY: s/p thoracentesis COMPARISON: 04/07/2018 EXAM PARAMETERS: NUMBER OF VIEWS: One view. TECHNIQUE: Single frontal radiographic view of the chest acquired. RADIATION DOSE: NA LIMITATIONS: None. FINDINGS: LUNGS AND PLEURA: Small right effusion. There is now complete opacification of the left c hest. Likely related to left lung collapse with mucous plug. No pneumothorax. MEDIASTINUM AND HILAR STRUCTURES: No masses. Contour normal. HEART AND VASCULAR STRUCTURES: Heart normal in size. Normal vasculature. BONES: No acute findings. HARDWARE: None in the chest. OTHER: No other significant finding. IMPRESSION: Small right effusion. Persistent complete opacification of the left chest with volume loss likely related to a mucous plug. TECHNICAL DOCUMENTATION: JOB ID: [id number] [email or web address] All Rights Reserved Reading location - IP/workstation name: [email or web address]
[2018-04-07 18:07] LABS: ABSOLUTE BASOPHILS # (AUTO) 0.1 10^3/uL (0.0-0.2); ABSOLUTE EOSINOPHILS # (AUTO) 0.7 10^3/uL (0.0-0.6); ABSOLUTE LYMPHOCYTES (AUTO) 3.8 10^3/uL (0.5-4.7); ABSOLUTE MONOCYTES (AUTO) 1.1 10^3/uL (0.1-1.4); ABSOLUTE NEUT (AUTO) 12.2 10^3/uL (1.7-8.2); BASOPHILS % (AUTO) 0.8 % (0-2); EOSINOPHILS % (AUTO) 3.8 % (0-6); HEMATOCRIT 26.6 % (36.0-47.0); HEMOGLOBIN 8.5 g/dL (12.0-15.5); MEAN CORPUSCULAR HGB CONC 31.9 g/dL (32.0-36.0); MEAN CORPUSCULAR VOLUME 82 fl (80-97); MONOCYTES % (AUTO) 6.2 % (3-13); PLATELET COUNT 366 10^3/uL (150-450); RED BLOOD COUNT 3.26 10^6/uL (3.72-5.28); SEGMENTED NEUTROPHILS % (AUTO) 68.2 % (42-78); TOTAL CELLS COUNTED % (AUTO) 100 %; WHITE BLOOD COUNT 17.9 10^3/uL (4.0-10.5)
[2018-04-07 18:20] LABS: ALANINE AMINOTRANSFERASE 42 U/L (9-52); ALBUMIN 2.9 g/dL (3.5-5.0); ALKALINE PHOSPHATASE 271 U/L (38-126); ANION GAP 9 (5-19); ASPARTATE AMINO TRANSFERASE 60 U/L (14-36); BILIRUBIN,DIRECT 0.4 mg/dL (0.0-0.4); BILIRUBIN,TOTAL 0.4 mg/dL (0.2-1.3); BLOOD UREA NITROGEN 47 mg/dL (7-20); CALCIUM 11.1 mg/dL (8.4-10.2); CARBON DIOXIDE 31 mmol/L (22-30); CHLORIDE 107 mmol/L (98-107); GLUCOSE 149 mg/dL (75-110); POTASSIUM 4.1 mmol/L (3.6-5.0); SODIUM 146.9 mmol/L (137-145)
--- NOTE | 2018-04-07 20:19 | PDOC PROGRESS REPORT ---
Subjective Progress Note for:: 04/07/18 Subjective:: I discussed the biopsy results with patient daughter she has basal cell cancer of the skin, she underwent paracentesis today, 450 cc of fluid was drained, patient is more alert today than yesterday, family is requesting that patient should have no chest compression ,but they want medication administered if patient she developed cardiac arrest Reason For Visit: SEPSIS,PNEUMONIA Physical Exam Vital Signs: Temp Pulse Resp BP Pulse Ox 99.3 F 72 13 122/59 L 93 04/07/18 19:22 04/07/18 19:22 04/07/18 19:22 04/07/18 19:22 04/07/18 19:22 Intake & Output 04/06/18 04/07/18 04/08/18 06:59 06:59 06:59 Intake Total 1815 1181 Output Total 785 250 Balance 1030 931 Weight 82.9 kg General appearance: PRESENT: no acute distress Eye exam: PRESENT: PERRLA Respiratory exam: PRESENT: decreased breath sounds Cardiovascular exam: PRESENT: +S1, +S2 GI/Abdominal exam: PRESENT: soft Neurological exam: PRESENT: alert Results Laboratory Results: 04/07/18 17:57 04/07/18 17:57 04/07/18 04/07/18 04/07/18 05:45 13:30 17:57 WBC 17.9 H RBC 3.26 L Hgb 8.5 L Hct 26.6 L MCV 82 MCH 26.0 L MCHC 31.9 L RDW 20.0 H Plt Count 366 Seg Neutrophils % 68.2 Lymphocytes % 21.0 Monocytes % 6.2 Eosinophils % 3.8 Basophils % 0.8 Absolute Neutrophils 12.2 H Absolute Lymphocytes 3.8 Absolute Monocytes 1.1 Absolute Eosinophils 0.7 H Absolute Basophils 0.1 Carbonic Acid 1.38 H HCO3/H2CO3 Ratio 21:1 ABG pH 7.44 ABG pCO2 45.9 H ABG pO2 73.4 L ABG HCO3 30.1 H ABG O2 Saturation 95.1 ABG Base Excess 5.3 FiO2 40% Sodium Potassium Chloride Carbon Dioxide Anion Gap BUN Creatinine Est GFR ( Amer) Est GFR (Non-Af Amer) Glucose Calcium Total Bilirubin AST ALT Alkaline Phosphatase Total Protein Albumin Fluid Type PLEURAL Fluid Source Fluid Color YELLOW Fluid Appearance CLEAR Fluid Viscosity LIQUID Fluid WBC 560 Fluid RBC 148 04/07/18 17:57 WBC RBC Hgb Hct MCV MCH MCHC RDW Plt Count Seg Neutrophils % Lymphocytes % Monocytes % Eosinophils % Basophils % Absolute Neutrophils Absolute Lymphocytes Absolute Monocytes Absolute Eosinophils Absolute Basophils Carbonic Acid HCO3/H2CO3 Ratio ABG pH ABG pCO2 ABG pO2 ABG HCO3 ABG O2 Saturation ABG Base Excess FiO2 Sodium 146.9 H Potassium 4.1 Chloride 107 Carbon Dioxide 31 H Anion Gap 9 BUN 47 H Creatinine 1.22 Est GFR ( Amer) 51 L Est GFR (Non-Af Amer) 42 L Glucose 149 H Calcium 11.1 H Total Bilirubin 0.4 AST 60 H ALT 42 Alkaline Phosphatase 271 H Total Protein 7.0 Albumin 2.9 L Fluid Type Fluid Source Fluid Color Fluid Appearance Fluid Viscosity Fluid WBC Fluid RBC Impressions: Thoracentesis Ultrasound 04/06/18 17:30 IMPRESSION: SUCCESSFUL THORACENTESIS USING ultrasound GUIDANCE. Chest X-Ray 04/07/18 00:00 IMPRESSION: Small right effusion. Persistent complete opacification of the left chest with volume loss likely related to a mucous plug. Assessment & Plan - Diagnosis (1) Acute hypoxemic respiratory failure Is this a current diagnosis for this admission?: Yes (2) Pneumonia Qualifiers: Pneumonia type: due to unspecified organism Laterality: bilateral Lung location: unspecified part of lung Qualified Code(s): J18.9 - Pneumonia, unspecified organism Is this a current diagnosis for this admission?: Yes (3) Basal cell carcinoma (BCC) of ala nasi Is this a current diagnosis for this admission?: Yes (4) Metabolic encephalopathy Is this a current diagnosis for this admission?: Yes (5) Urinary tract infection associated with indwelling urethral catheter Qualifiers: Encounter type: initial encounter Qualified Code(s): T83.511A - Infection and inflammatory reaction due to indwelling urethral catheter, initial encounter ; N39.0 - Urinary tract infection, site not specified; N39.0 - Urinary tract infection, site not specified Is this a current diagnosis for this admission?: Yes (6) Pleural effusion Is this a current diagnosis for this admission?: Yes (7) Sepsis Qualifiers: Sepsis type: sepsis due to unspecified organism Qualified Code(s): A41.9 - Sepsis, unspecified organism Is this a current diagnosis for this admission?: Yes
[2018-04-08] MEDS: IPRATROPIUM/ALBUTEROL 0.5-2.5 MG/3 ML AMPUL NEB SCH ×4 (02:13→19:43)
[2018-04-08] MEDS: AMPICILLIN SODIUM/SULBACTAM NA 3 GM in NORMAL SALINE 100 ML IV SCH ×4 (05:38→23:40)
[2018-04-08] MEDS: INSULIN LISPRO 100 UNIT/ML 3 ML VIAL SUBCUT PRN ×3 (05:52→18:11)
[2018-04-08 07:23] LABS: ABSOLUTE BASOPHILS # (AUTO) 0.1 10^3/uL (0.0-0.2); ABSOLUTE EOSINOPHILS # (AUTO) 1.1 10^3/uL (0.0-0.6); ABSOLUTE LYMPHOCYTES (AUTO) 2.8 10^3/uL (0.5-4.7); ABSOLUTE MONOCYTES (AUTO) 1.4 10^3/uL (0.1-1.4); ABSOLUTE NEUT (AUTO) 10.3 10^3/uL (1.7-8.2); BASOPHILS % (AUTO) 0.6 % (0-2); HEMOGLOBIN 8.6 g/dL (12.0-15.5); LYMPHOCYTES % (AUTO) 17.7 % (13-45); MEAN CORPUSCULAR HGB CONC 31.9 g/dL (32.0-36.0); MEAN CORPUSCULAR VOLUME 81 fl (80-97); MONOCYTES % (AUTO) 8.8 % (3-13); PLATELET COUNT 373 10^3/uL (150-450); RED BLOOD COUNT 3.33 10^6/uL (3.72-5.28); RED CELL DISTRIBUTION WIDTH 19.5 % (11.5-14.0); SEGMENTED NEUTROPHILS % (AUTO) 65.9 % (42-78); TOTAL CELLS COUNTED % (AUTO) 100 %; WHITE BLOOD COUNT 15.7 10^3/uL (4.0-10.5)
[2018-04-08 08:18] LABS: ALANINE AMINOTRANSFERASE 50 U/L (9-52); ALKALINE PHOSPHATASE 330 U/L (38-126); ANION GAP 11 (5-19); ASPARTATE AMINO TRANSFERASE 65 U/L (14-36); BILIRUBIN,DIRECT 0.4 mg/dL (0.0-0.4); BILIRUBIN,TOTAL 0.4 mg/dL (0.2-1.3); BLOOD UREA NITROGEN 46 mg/dL (7-20); CALCIUM 11.1 mg/dL (8.4-10.2); CARBON DIOXIDE 31 mmol/L (22-30); CHLORIDE 110 mmol/L (98-107); GLUCOSE 218 mg/dL (75-110); POTASSIUM 4.3 mmol/L (3.6-5.0); SODIUM 151.7 mmol/L (137-145); TOTAL PROTEIN 7.2 g/dL (6.3-8.2)
[2018-04-08] MEDS: BUDESONIDE NEB 0.5 MG/2 ML AMPUL NEB SCH ×2 (08:53→19:43)
[2018-04-08] MEDS: MULTIVITAMINS W-IRON TABLET, CHEWABLE PEG SCH (09:45)
[2018-04-08] MEDS: ASPIRIN 81 MG TABLET, CHEWABLE PEG SCH (09:46)
[2018-04-08] MEDS: AMLODIPINE BESYLATE 10 MG TABLET PEG SCH (09:46)
[2018-04-08] MEDS: ASCORBIC ACID 500 MG TABLET PEG SCH (09:47)
[2018-04-08] MEDS: LACTOBACILLUS ACIDOPHILUS 250 MG TAB PEG SCH (09:47)
[2018-04-08] MEDS: MEMANTINE HCL 10 MG TABLET PEG SCH (09:47)
[2018-04-08] MEDS: INSULIN DETEMIR 100 UNIT/ML 3 ML PEN SUBCUT SCH (09:48)
[2018-04-08] MEDS: FUROSEMIDE 40 MG TABLET PEG SCH (09:48)
--- NOTE | 2018-04-08 14:00 | PDOC PROGRESS REPORT ---
Subjective Progress Note for:: 04/08/18 Subjective:: Patient was seen by the bedside, it seems that she basically cannot stay outside the hospital, she was recently discharged from this hospital roughly a week ago admitted yesterday for sepsis related condition, on IV antibiotic. The results of the skin biopsy came back as basal cell carcinoma, she would need a wide excision of the skin, consultation will be requested from surgery. Hospice care was discussed with patient's family but family is not yet ready for that option. Reason For Visit: SEPSIS,PNEUMONIA Physical Exam Vital Signs: Temp Pulse Resp BP Pulse Ox 99.3 F 74 16 151/65 H 96 04/08/18 07:15 04/08/18 08:53 04/08/18 08:53 04/08/18 07:15 04/08/18 11:30 Intake & Output 04/07/18 04/08/18 04/09/18 06:59 06:59 06:59 Intake Total 1815 2649 0 Output Total 785 800 600 Balance 1030 1849 -600 Weight 82.9 kg 86.8 kg General appearance: PRESENT: no acute distress Respiratory exam: PRESENT: decreased breath sounds Cardiovascular exam: PRESENT: +S1, +S2 GI/Abdominal exam: PRESENT: soft Neurological exam: PRESENT: alert Results Laboratory Results: 04/08/18 07:00 04/08/18 07:00 04/07/18 04/07/18 04/07/18 13:30 17:57 17:57 WBC 17.9 H RBC 3.26 L Hgb 8.5 L Hct 26.6 L MCV 82 MCH 26.0 L MCHC 31.9 L RDW 20.0 H Plt Count 366 Seg Neutrophils % 68.2 Lymphocytes % 21.0 Monocytes % 6.2 Eosinophils % 3.8 Basophils % 0.8 Absolute Neutrophils 12.2 H Absolute Lymphocytes 3.8 Absolute Monocytes 1.1 Absolute Eosinophils 0.7 H Absolute Basophils 0.1 Sodium 146.9 H Potassium 4.1 Chloride 107 Carbon Dioxide 31 H Anion Gap 9 BUN 47 H Creatinine 1.22 Est GFR ( Amer) 51 L Est GFR (Non-Af Amer) 42 L Glucose 149 H Calcium 11.1 H Total Bilirubin 0.4 AST 60 H ALT 42 Alkaline Phosphatase 271 H Total Protein 7.0 Albumin 2.9 L Fluid Type PLEURAL Fluid Source Fluid Color YELLOW Fluid Appearance CLEAR Fluid Viscosity LIQUID Fluid WBC 560 Fluid RBC 148 07/14/18 07/14/18 07:00 07:00 WBC 15.7 H RBC 3.33 L Hgb 8.6 L Hct 27.0 L MCV 81 MCH 26.0 L MCHC 31.9 L RDW 19.5 H Plt Count 373 Seg Neutrophils % 65.9 Lymphocytes % 17.7 Monocytes % 8.8 Eosinophils % 7.0 H Basophils % 0.6 Absolute Neutrophils 10.3 H Absolute Lymphocytes 2.8 Absolute Monocytes 1.4 Absolute Eosinophils 1.1 H Absolute Basophils 0.1 Sodium 151.7 H Potassium 4.3 Chloride 110 H Carbon Dioxide 31 H Anion Gap 11 BUN 46 H Creatinine 1.17 Est GFR ( Amer) 54 L Est GFR (Non-Af Amer) 44 L Glucose 218 H Calcium 11.1 H Total Bilirubin 0.4 AST 65 H ALT 50 Alkaline Phosphatase 330 H Total Protein 7.2 Albumin 3.0 L Fluid Type Fluid Source Fluid Color Fluid Appearance Fluid Viscosity Fluid WBC Fluid RBC Impressions: Thoracentesis Ultrasound 04/06/18 17:30 IMPRESSION: SUCCESSFUL THORACENTESIS USING ultrasound GUIDANCE. Chest X-Ray 04/07/18 00:00 IMPRESSION: Small right effusion. Persistent complete opacification of the left chest with volume loss likely related to a mucous plug. Assessment & Plan - Diagnosis (1) Acute hypoxemic respiratory failure Is this a current diagnosis for this admission?: Yes (2) Pneumonia Qualifiers: Pneumonia type: due to unspecified organism Laterality: bilateral Lung location: unspecified part of lung Qualified Code(s): J18.9 - Pneumonia, unspecified organism Is this a current diagnosis for this admission?: Yes (3) Basal cell carcinoma (BCC) of ala nasi Is this a current diagnosis for this admission?: Yes (4) Metabolic encephalopathy Is this a current diagnosis for this admission?: Yes (5) Urinary tract infection associated with indwelling urethral catheter Qualifiers: Encounter type: initial encounter Qualified Code(s): T83.511A - Infection and inflammatory reaction due to indwelling urethral catheter, initial encounter ; N39.0 - Urinary tract infection, site not specified; N39.0 - Urinary tract infection, site not specified Is this a current diagnosis for this admission?: Yes (6) Pleural effusion Is this a current diagnosis for this admission?: Yes (7) Sepsis Qualifiers: Sepsis type: sepsis due to unspecified organism Qualified Code(s): A41.9 - Sepsis, unspecified organism Is this a current diagnosis for this admission?: Yes
[2018-04-08] MEDS: DEXTROSE 5%-WATER 1000 ML 1,000 ML IV PRN (18:11)
[2018-04-08] MEDS: ONDANSETRON HCL 8 MG TABLET PEG PRN (23:39)
[2018-04-09] MEDS: INSULIN LISPRO 100 UNIT/ML 3 ML VIAL SUBCUT PRN ×3 (00:35→12:32)
[2018-04-09] MEDS: IPRATROPIUM/ALBUTEROL 0.5-2.5 MG/3 ML AMPUL NEB SCH ×4 (02:19→19:50)
[2018-04-09] MEDS: AMPICILLIN SODIUM/SULBACTAM NA 3 GM in NORMAL SALINE 100 ML IV SCH ×3 (05:27→17:56)
[2018-04-09 07:06] LABS: ABSOLUTE BASOPHILS # (AUTO) 0.1 10^3/uL (0.0-0.2); ABSOLUTE EOSINOPHILS # (AUTO) 0.4 10^3/uL (0.0-0.6); ABSOLUTE LYMPHOCYTES (AUTO) 3.3 10^3/uL (0.5-4.7); ABSOLUTE MONOCYTES (AUTO) 2.2 10^3/uL (0.1-1.4); ABSOLUTE NEUT (AUTO) 12.4 10^3/uL (1.7-8.2); BASOPHILS % (AUTO) 0.8 % (0-2); EOSINOPHILS % (AUTO) 2.1 % (0-6); HEMATOCRIT 27.1 % (36.0-47.0); HEMOGLOBIN 8.6 g/dL (12.0-15.5); MEAN CORPUSCULAR HEMOGLOBIN 25.9 pg (27.0-33.4); MEAN CORPUSCULAR HGB CONC 31.9 g/dL (32.0-36.0); MEAN CORPUSCULAR VOLUME 81 fl (80-97); MONOCYTES % (AUTO) 11.8 % (3-13); PLATELET COUNT 392 10^3/uL (150-450); RED BLOOD COUNT 3.34 10^6/uL (3.72-5.28); RED CELL DISTRIBUTION WIDTH 19.9 % (11.5-14.0); SEGMENTED NEUTROPHILS % (AUTO) 67.3 % (42-78); TOTAL CELLS COUNTED % (AUTO) 100 %; WHITE BLOOD COUNT 18.4 10^3/uL (4.0-10.5)
[2018-04-09 07:26] LABS: ALANINE AMINOTRANSFERASE 52 U/L (9-52); ALBUMIN 3.3 g/dL (3.5-5.0); ALKALINE PHOSPHATASE 400 U/L (38-126); ANION GAP 12 (5-19); ASPARTATE AMINO TRANSFERASE 72 U/L (14-36); BILIRUBIN,DIRECT 0.6 mg/dL (0.0-0.4); BILIRUBIN,TOTAL 0.7 mg/dL (0.2-1.3); BLOOD UREA NITROGEN 46 mg/dL (7-20); CARBON DIOXIDE 30 mmol/L (22-30); CHLORIDE 109 mmol/L (98-107); GLUCOSE 193 mg/dL (75-110); POTASSIUM 4.4 mmol/L (3.6-5.0); SODIUM 151.3 mmol/L (137-145); TOTAL PROTEIN 7.7 g/dL (6.3-8.2)
[2018-04-09] MEDS: BUDESONIDE NEB 0.5 MG/2 ML AMPUL NEB SCH ×2 (08:43→19:50)
[2018-04-09] MEDS: ACETYLCYSTEINE 20% SOLN 800 MG/4 ML VIAL.NEB IH SCH ×2 (08:44→19:49)
[2018-04-09] MEDS: FUROSEMIDE 40 MG TABLET PEG SCH (10:12)
[2018-04-09] MEDS: ASCORBIC ACID 500 MG TABLET PEG SCH (10:12)
[2018-04-09] MEDS: LACTOBACILLUS ACIDOPHILUS 250 MG TAB PEG SCH (10:12)
[2018-04-09] MEDS: AMLODIPINE BESYLATE 10 MG TABLET PEG SCH (10:12)
[2018-04-09] MEDS: ASPIRIN 81 MG TABLET, CHEWABLE PEG SCH (10:12)
[2018-04-09] MEDS: MEMANTINE HCL 10 MG TABLET PEG SCH (10:12)
[2018-04-09] MEDS: INSULIN DETEMIR 100 UNIT/ML 3 ML PEN SUBCUT SCH (10:13)
[2018-04-09] MEDS: MULTIVITAMINS W-IRON TABLET, CHEWABLE PEG SCH (10:13)
[2018-04-09] MEDS: ACETAMINOPHEN 325 MG TABLET PEG PRN (10:14)
--- NOTE | 2018-04-09 14:54 | PDOC PROGRESS REPORT ---
Subjective Progress Note for:: 04/09/18 Subjective:: Patient's condition is very poor, she has left lung collapse most likely from mucous plugging, deep tracheal suctioning, patient is a DNR except for chemical code only, already on mechanical ventilation, overall prognosis is very poor Reason For Visit: SEPSIS,PNEUMONIA Physical Exam Vital Signs: Temp Pulse Resp BP Pulse Ox 100.0 F 96 18 166/57 H 96 04/09/18 11:16 04/09/18 11:16 04/09/18 11:16 04/09/18 11:16 04/09/18 11:16 Intake & Output 04/08/18 04/09/18 04/10/18 06:59 06:59 06:59 Intake Total 2649 2920 0 Output Total 800 1975 300 Balance 1849 945 -300 Weight 86.8 kg 86.6 kg Eye exam: PRESENT: PERRLA Respiratory exam: PRESENT: decreased breath sounds Cardiovascular exam: PRESENT: +S1, +S2 GI/Abdominal exam: PRESENT: soft Results Laboratory Results: 04/09/18 06:45 04/09/18 06:45 04/07/18 04/07/18 04/07/18 13:30 13:30 13:30 WBC RBC Hgb Hct MCV MCH MCHC RDW Plt Count Seg Neutrophils % Lymphocytes % Monocytes % Eosinophils % Basophils % Absolute Neutrophils Absolute Lymphocytes Absolute Monocytes Absolute Eosinophils Absolute Basophils Sodium Potassium Chloride Carbon Dioxide Anion Gap BUN Creatinine Est GFR ( Amer) Est GFR (Non-Af Amer) Glucose Calcium Total Bilirubin AST ALT Alkaline Phosphatase Total Protein Albumin Fluid Glucose 163 Fluid Total Protein 3.9 Fluid LDH 120 04/09/18 04/09/18 06:45 06:45 WBC 18.4 H RBC 3.34 L Hgb 8.6 L Hct 27.1 L MCV 81 MCH 25.9 L MCHC 31.9 L RDW 19.9 H Plt Count 392 Seg Neutrophils % 67.3 Lymphocytes % 18.0 Monocytes % 11.8 Eosinophils % 2.1 Basophils % 0.8 Absolute Neutrophils 12.4 H Absolute Lymphocytes 3.3 Absolute Monocytes 2.2 H Absolute Eosinophils 0.4 Absolute Basophils 0.1 Sodium 151.3 H Potassium 4.4 Chloride 109 H Carbon Dioxide 30 Anion Gap 12 BUN 46 H Creatinine 1.00 Est GFR ( Amer) > 60 Est GFR (Non-Af Amer) 53 L Glucose 193 H Calcium 11.0 H Total Bilirubin 0.7 AST 72 H ALT 52 Alkaline Phosphatase 400 H Total Protein 7.7 Albumin 3.3 L Fluid Glucose Fluid Total Protein Fluid LDH 04/07/18 13:30 Pleural Fluid - Right Pleural Effusion AFB Smear Concentration - Final 04/07/18 13:30 Pleural Fluid - Right Pleural Effusion Acid Fast Bacilli Smear - Final 04/07/18 13:30 Pleural Fluid - Right Pleural Effusion Gram Stain - Final Impressions: Thoracentesis Ultrasound 04/06/18 17:30 IMPRESSION: SUCCESSFUL THORACENTESIS USING ultrasound GUIDANCE. Chest X-Ray 04/07/18 00:00 IMPRESSION: Small right effusion. Persistent complete opacification of the left chest with volume loss likely related to a mucous plug. Assessment & Plan - Diagnosis (1) Acute hypoxemic respiratory failure Is this a current diagnosis for this admission?: Yes (2) Pneumonia Qualifiers: Pneumonia type: due to unspecified organism Laterality: bilateral Lung location: unspecified part of lung Qualified Code(s): J18.9 - Pneumonia, unspecified organism Is this a current diagnosis for this admission?: Yes (3) Basal cell carcinoma (BCC) of ala nasi Is this a current diagnosis for this admission?: Yes (4) Metabolic encephalopathy Is this a current diagnosis for this admission?: Yes (5) Urinary tract infection associated with indwelling urethral catheter Qualifiers: Encounter type: initial encounter Qualified Code(s): T83.511A - Infection and inflammatory reaction due to indwelling urethral catheter, initial encounter ; N39.0 - Urinary tract infection, site not specified; N39.0 - Urinary tract infection, site not specified Is this a current diagnosis for this admission?: Yes (6) Pleural effusion Is this a current diagnosis for this admission?: Yes (7) Sepsis Qualifiers: Sepsis type: sepsis due to unspecified organism Qualified Code(s): A41.9 - Sepsis, unspecified organism Is this a current diagnosis for this admission?: Yes
[2018-04-09] MEDS ORDERED: BISACODYL 10 MG SUPP.RECT PR ONE (16:52)
[2018-04-09] MEDS: DEXTROSE 5%-WATER 1000 ML 1,000 ML IV PRN (18:03)
[2018-04-10] MEDS: INSULIN LISPRO 100 UNIT/ML 3 ML VIAL SUBCUT PRN ×5 (00:13→23:27)
[2018-04-10] MEDS: AMPICILLIN SODIUM/SULBACTAM NA 3 GM in NORMAL SALINE 100 ML IV SCH ×5 (00:13→23:27)
[2018-04-10] MEDS: IPRATROPIUM/ALBUTEROL 0.5-2.5 MG/3 ML AMPUL NEB SCH ×4 (02:30→19:33)
[2018-04-10] MEDS: ONDANSETRON HCL 8 MG TABLET PEG PRN (05:33)
[2018-04-10 07:20] LABS: ABSOLUTE BASOPHILS # (AUTO) 0.2 10^3/uL (0.0-0.2); ABSOLUTE EOSINOPHILS # (AUTO) 1.2 10^3/uL (0.0-0.6); ABSOLUTE LYMPHOCYTES (AUTO) 3.2 10^3/uL (0.5-4.7); ABSOLUTE MONOCYTES (AUTO) 1.8 10^3/uL (0.1-1.4); ABSOLUTE NEUT (AUTO) 10.4 10^3/uL (1.7-8.2); BASOPHILS % (AUTO) 0.9 % (0-2); EOSINOPHILS % (AUTO) 6.9 % (0-6); HEMATOCRIT 27.3 % (36.0-47.0); HEMOGLOBIN 8.5 g/dL (12.0-15.5); MEAN CORPUSCULAR HEMOGLOBIN 25.3 pg (27.0-33.4); MEAN CORPUSCULAR HGB CONC 31.3 g/dL (32.0-36.0); MEAN CORPUSCULAR VOLUME 81 fl (80-97); MONOCYTES % (AUTO) 10.8 % (3-13); PLATELET COUNT 407 10^3/uL (150-450); RED BLOOD COUNT 3.37 10^6/uL (3.72-5.28); RED CELL DISTRIBUTION WIDTH 19.8 % (11.5-14.0); SEGMENTED NEUTROPHILS % (AUTO) 62.4 % (42-78); TOTAL CELLS COUNTED % (AUTO) 100 %; WHITE BLOOD COUNT 16.8 10^3/uL (4.0-10.5)
[2018-04-10 07:42] LABS: ALANINE AMINOTRANSFERASE 45 U/L (9-52); ALBUMIN 3.2 g/dL (3.5-5.0); ALKALINE PHOSPHATASE 387 U/L (38-126); ANION GAP 12 (5-19); ASPARTATE AMINO TRANSFERASE 57 U/L (14-36); BILIRUBIN,DIRECT 0.7 mg/dL (0.0-0.4); BILIRUBIN,TOTAL 0.7 mg/dL (0.2-1.3); BLOOD UREA NITROGEN 47 mg/dL (7-20); CALCIUM 10.9 mg/dL (8.4-10.2); CARBON DIOXIDE 30 mmol/L (22-30); CHLORIDE 109 mmol/L (98-107); GLUCOSE 181 mg/dL (75-110); POTASSIUM 4.6 mmol/L (3.6-5.0); SODIUM 151.3 mmol/L (137-145); TOTAL PROTEIN 7.4 g/dL (6.3-8.2)
[2018-04-10] MEDS: BUDESONIDE NEB 0.5 MG/2 ML AMPUL NEB SCH ×2 (07:57→19:33)
[2018-04-10] MEDS: ACETYLCYSTEINE 20% SOLN 800 MG/4 ML VIAL.NEB IH SCH ×2 (07:57→19:33)
[2018-04-10] MEDS: FUROSEMIDE 40 MG TABLET PEG SCH (09:18)
[2018-04-10] MEDS: ASCORBIC ACID 500 MG TABLET PEG SCH (09:19)
[2018-04-10] MEDS: LACTOBACILLUS ACIDOPHILUS 250 MG TAB PEG SCH (09:19)
[2018-04-10] MEDS: MEMANTINE HCL 10 MG TABLET PEG SCH (09:19)
[2018-04-10] MEDS: AMLODIPINE BESYLATE 10 MG TABLET PEG SCH (09:19)
[2018-04-10] MEDS: ASPIRIN 81 MG TABLET, CHEWABLE PEG SCH (09:19)
[2018-04-10] MEDS: INSULIN DETEMIR 100 UNIT/ML 3 ML PEN SUBCUT SCH (09:20)
[2018-04-10] MEDS: MULTIVITAMINS W-IRON TABLET, CHEWABLE PEG SCH (09:21)
[2018-04-10] MEDS: ACETAMINOPHEN 325 MG TABLET PEG PRN (10:07)
--- NOTE | 2018-04-10 20:49 | PDOC PROGRESS REPORT ---
Subjective Progress Note for:: 04/10/18 Subjective:: Patient overall condition is poor family continue to push for more aggressive intervention, I will consult with discharge planning to make arrangement for transfer to long-term acute care facility where she has gone before previously Reason For Visit: SEPSIS,PNEUMONIA Physical Exam Vital Signs: Temp Pulse Resp BP Pulse Ox 98.8 F 85 16 140/55 H 96 04/10/18 19:26 04/10/18 19:26 04/10/18 19:26 04/10/18 19:26 04/10/18 19:26 Intake & Output 04/09/18 04/10/18 04/11/18 06:59 06:59 06:59 Intake Total 2920 2253 650 Output Total 1975 1200 500 Balance 945 1053 150 Weight 86.6 kg 87.3 kg Respiratory exam: PRESENT: decreased breath sounds Cardiovascular exam: PRESENT: +S1, +S2 GI/Abdominal exam: PRESENT: soft Results Laboratory Results: 04/10/18 06:45 04/10/18 06:45 04/10/18 04/10/18 06:45 06:45 WBC 16.8 H RBC 3.37 L Hgb 8.5 L Hct 27.3 L MCV 81 MCH 25.3 L MCHC 31.3 L RDW 19.8 H Plt Count 407 Seg Neutrophils % 62.4 Lymphocytes % 19.0 Monocytes % 10.8 Eosinophils % 6.9 H Basophils % 0.9 Absolute Neutrophils 10.4 H Absolute Lymphocytes 3.2 Absolute Monocytes 1.8 H Absolute Eosinophils 1.2 H Absolute Basophils 0.2 Sodium 151.3 H Potassium 4.6 Chloride 109 H Carbon Dioxide 30 Anion Gap 12 BUN 47 H Creatinine 1.07 Est GFR ( Amer) 59 L Est GFR (Non-Af Amer) 49 L Glucose 181 H Calcium 10.9 H Total Bilirubin 0.7 AST 57 H ALT 45 Alkaline Phosphatase 387 H Total Protein 7.4 Albumin 3.2 L 04/07/18 13:30 Pleural Fluid - Right Pleural Effusion Gram Stain - Final Impressions: Thoracentesis Ultrasound 04/06/18 17:30 IMPRESSION: SUCCESSFUL THORACENTESIS USING ultrasound GUIDANCE. Chest X-Ray 04/07/18 00:00 IMPRESSION: Small right effusion. Persistent complete opacification of the left chest with volume loss likely related to a mucous plug. Assessment & Plan - Diagnosis (1) Acute hypoxemic respiratory failure Is this a current diagnosis for this admission?: Yes (2) Pneumonia Qualifiers: Pneumonia type: due to unspecified organism Laterality: bilateral Lung location: unspecified part of lung Qualified Code(s): J18.9 - Pneumonia, unspecified organism Is this a current diagnosis for this admission?: Yes (3) Basal cell carcinoma (BCC) of ala nasi Is this a current diagnosis for this admission?: Yes (4) Metabolic encephalopathy Is this a current diagnosis for this admission?: Yes (5) Urinary tract infection associated with indwelling urethral catheter Qualifiers: Encounter type: initial encounter Qualified Code(s): T83.511A - Infection and inflammatory reaction due to indwelling urethral catheter, initial encounter ; N39.0 - Urinary tract infection, site not specified; N39.0 - Urinary tract infection, site not specified Is this a current diagnosis for this admission?: Yes (6) Pleural effusion Is this a current diagnosis for this admission?: Yes (7) Sepsis Qualifiers: Sepsis type: sepsis due to unspecified organism Qualified Code(s): A41.9 - Sepsis, unspecified organism Is this a current diagnosis for this admission?: Yes
[2018-04-11] MEDS: IPRATROPIUM/ALBUTEROL 0.5-2.5 MG/3 ML AMPUL NEB SCH ×4 (02:29→19:46)
[2018-04-11] MEDS: ACETAMINOPHEN 325 MG TABLET PEG PRN (04:12)
[2018-04-11] MEDS: AMPICILLIN SODIUM/SULBACTAM NA 3 GM in NORMAL SALINE 100 ML IV SCH ×4 (05:46→23:25)
[2018-04-11] MEDS: INSULIN LISPRO 100 UNIT/ML 3 ML VIAL SUBCUT PRN ×4 (06:40→22:10)
[2018-04-11 07:36] LABS: ABSOLUTE BASOPHILS # (AUTO) 0.1 10^3/uL (0.0-0.2); ABSOLUTE EOSINOPHILS # (AUTO) 1.1 10^3/uL (0.0-0.6); ABSOLUTE LYMPHOCYTES (AUTO) 3.4 10^3/uL (0.5-4.7); ABSOLUTE MONOCYTES (AUTO) 1.6 10^3/uL (0.1-1.4); BASOPHILS % (AUTO) 0.6 % (0-2); EOSINOPHILS % (AUTO) 5.6 % (0-6); HEMATOCRIT 25.3 % (36.0-47.0); LYMPHOCYTES % (AUTO) 17.9 % (13-45); MEAN CORPUSCULAR HEMOGLOBIN 25.6 pg (27.0-33.4); MEAN CORPUSCULAR HGB CONC 31.6 g/dL (32.0-36.0); MEAN CORPUSCULAR VOLUME 81 fl (80-97); MONOCYTES % (AUTO) 8.4 % (3-13); PLATELET COUNT 418 10^3/uL (150-450); RED BLOOD COUNT 3.13 10^6/uL (3.72-5.28); RED CELL DISTRIBUTION WIDTH 20.4 % (11.5-14.0); SEGMENTED NEUTROPHILS % (AUTO) 67.5 % (42-78); TOTAL CELLS COUNTED % (AUTO) 100 %; WHITE BLOOD COUNT 19.2 10^3/uL (4.0-10.5)
[2018-04-11] MEDS: BUDESONIDE NEB 0.5 MG/2 ML AMPUL NEB SCH ×2 (07:45→19:46)
[2018-04-11] MEDS: ACETYLCYSTEINE 20% SOLN 800 MG/4 ML VIAL.NEB IH SCH ×2 (07:45→19:46)
[2018-04-11 07:46] LABS: ALANINE AMINOTRANSFERASE 46 U/L (9-52); ALBUMIN 3.1 g/dL (3.5-5.0); ALKALINE PHOSPHATASE 435 U/L (38-126); ANION GAP 15 (5-19); ASPARTATE AMINO TRANSFERASE 65 U/L (14-36); BILIRUBIN,DIRECT 0.7 mg/dL (0.0-0.4); BILIRUBIN,TOTAL 0.7 mg/dL (0.2-1.3); BLOOD UREA NITROGEN 46 mg/dL (7-20); CALCIUM 10.7 mg/dL (8.4-10.2); CARBON DIOXIDE 28 mmol/L (22-30); CHLORIDE 110 mmol/L (98-107); GLUCOSE 216 mg/dL (75-110); POTASSIUM 4.3 mmol/L (3.6-5.0); SODIUM 153.1 mmol/L (137-145); TOTAL PROTEIN 7.7 g/dL (6.3-8.2)
[2018-04-11] MEDS: FUROSEMIDE 40 MG TABLET PEG SCH (10:42)
[2018-04-11] MEDS: MEMANTINE HCL 10 MG TABLET PEG SCH (10:43)
[2018-04-11] MEDS: LACTOBACILLUS ACIDOPHILUS 250 MG TAB PEG SCH (10:43)
[2018-04-11] MEDS: ASCORBIC ACID 500 MG TABLET PEG SCH (10:43)
[2018-04-11] MEDS: AMLODIPINE BESYLATE 10 MG TABLET PEG SCH (10:43)
[2018-04-11] MEDS: ASPIRIN 81 MG TABLET, CHEWABLE PEG SCH (10:43)
[2018-04-11] MEDS: INSULIN DETEMIR 100 UNIT/ML 3 ML PEN SUBCUT SCH (10:44)
[2018-04-11] MEDS: MULTIVITAMINS W-IRON TABLET, CHEWABLE PEG SCH (10:44)
[2018-04-11] MEDS: DEXTROSE 5%-WATER 1000 ML 1,000 ML IV PRN (18:08)
--- NOTE | 2018-04-11 20:50 | PDOC PROGRESS REPORT ---
Subjective Progress Note for:: 04/11/18 Subjective:: Patient with multiple hospitalization for multiple comorbid condition, at this stage of her condition hospice care is the appropriate option, the long-term acute care facility that accepted the patient multiple times that had her on vent has declined to accept her in transfer. Patient's condition remains poor Reason For Visit: SEPSIS,PNEUMONIA Physical Exam Vital Signs: Temp Pulse Resp BP Pulse Ox 98.8 F 85 20 145/65 H 95 04/11/18 19:48 04/11/18 19:48 04/11/18 19:48 04/11/18 19:48 04/11/18 19:48 Intake & Output 04/10/18 04/11/18 04/12/18 06:59 06:59 06:59 Intake Total 2253 1847 340 Output Total 1200 1100 775 Balance 1053 747 -435 Weight 87.3 kg 88 kg General appearance: PRESENT: no acute distress, other Eye exam: PRESENT: PERRLA Respiratory exam: PRESENT: rhonchi Cardiovascular exam: PRESENT: +S1, +S2 GI/Abdominal exam: PRESENT: soft Neurological exam: PRESENT: alert Results Laboratory Results: 04/11/18 07:00 04/11/18 07:00 04/11/18 04/11/18 07:00 07:00 WBC 19.2 H RBC 3.13 L Hgb 8.0 L Hct 25.3 L MCV 81 MCH 25.6 L MCHC 31.6 L RDW 20.4 H Plt Count 418 Seg Neutrophils % 67.5 Lymphocytes % 17.9 Monocytes % 8.4 Eosinophils % 5.6 Basophils % 0.6 Absolute Neutrophils 13.0 H Absolute Lymphocytes 3.4 Absolute Monocytes 1.6 H Absolute Eosinophils 1.1 H Absolute Basophils 0.1 Sodium 153.1 H Potassium 4.3 Chloride 110 H Carbon Dioxide 28 Anion Gap 15 BUN 46 H Creatinine 1.07 Est GFR ( Amer) 59 L Est GFR (Non-Af Amer) 49 L Glucose 216 H Calcium 10.7 H Total Bilirubin 0.7 AST 65 H ALT 46 Alkaline Phosphatase 435 H Total Protein 7.7 Albumin 3.1 L 04/07/18 13:30 Pleural Fluid - Right Pleural Effusion Gram Stain - Final 04/07/18 13:30 Pleural Fluid - Right Pleural Effusion Body Fluid Culture - Final NO AEROBIC OR ANAEROBIC ORGANISMS RECOVERED 04/06/18 09:58 Blood Blood Culture - Final NO GROWTH IN 5 DAYS Impressions: Thoracentesis Ultrasound 04/06/18 17:30 IMPRESSION: SUCCESSFUL THORACENTESIS USING ultrasound GUIDANCE. Chest X-Ray 04/07/18 00:00 IMPRESSION: Small right effusion. Persistent complete opacification of the left chest with volume loss likely related to a mucous plug. Assessment & Plan - Diagnosis (1) Acute hypoxemic respiratory failure Is this a current diagnosis for this admission?: Yes (2) Pneumonia Qualifiers: Pneumonia type: due to unspecified organism Laterality: bilateral Lung location: unspecified part of lung Qualified Code(s): J18.9 - Pneumonia, unspecified organism Is this a current diagnosis for this admission?: Yes (3) Basal cell carcinoma (BCC) of ala nasi Is this a current diagnosis for this admission?: Yes (4) Metabolic encephalopathy Is this a current diagnosis for this admission?: Yes (5) Urinary tract infection associated with indwelling urethral catheter Qualifiers: Encounter type: initial encounter Qualified Code(s): T83.511A - Infection and inflammatory reaction due to indwelling urethral catheter, initial encounter ; N39.0 - Urinary tract infection, site not specified; N39.0 - Urinary tract infection, site not specified Is this a current diagnosis for this admission?: Yes (6) Pleural effusion Is this a current diagnosis for this admission?: Yes (7) Sepsis Qualifiers: Sepsis type: sepsis due to unspecified organism Qualified Code(s): A41.9 - Sepsis, unspecified organism Is this a current diagnosis for this admission?: Yes
[2018-04-12] MEDS: IPRATROPIUM/ALBUTEROL 0.5-2.5 MG/3 ML AMPUL NEB SCH ×4 (02:11→19:53)
[2018-04-12] MEDS: AMPICILLIN SODIUM/SULBACTAM NA 3 GM in NORMAL SALINE 100 ML IV SCH ×3 (06:13→18:30)
[2018-04-12] MEDS: INSULIN LISPRO 100 UNIT/ML 3 ML VIAL SUBCUT PRN ×3 (06:35→18:30)
[2018-04-12] MEDS: ACETYLCYSTEINE 20% SOLN 800 MG/4 ML VIAL.NEB IH SCH (07:39)
[2018-04-12] MEDS: BUDESONIDE NEB 0.5 MG/2 ML AMPUL NEB SCH ×2 (07:39→19:53)
[2018-04-12 07:56] LABS: ABSOLUTE BASOPHILS # (AUTO) 0.2 10^3/uL (0.0-0.2); ABSOLUTE EOSINOPHILS # (AUTO) 1.6 10^3/uL (0.0-0.6); ABSOLUTE LYMPHOCYTES (AUTO) 3.7 10^3/uL (0.5-4.7); ABSOLUTE MONOCYTES (AUTO) 1.2 10^3/uL (0.1-1.4); ABSOLUTE NEUT (AUTO) 10.7 10^3/uL (1.7-8.2); BASOPHILS % (AUTO) 0.9 % (0-2); EOSINOPHILS % (AUTO) 9.5 % (0-6); HEMATOCRIT 26.5 % (36.0-47.0); HEMOGLOBIN 8.4 g/dL (12.0-15.5); LYMPHOCYTES % (AUTO) 21.1 % (13-45); MEAN CORPUSCULAR HEMOGLOBIN 25.3 pg (27.0-33.4); MEAN CORPUSCULAR HGB CONC 31.6 g/dL (32.0-36.0); MEAN CORPUSCULAR VOLUME 80 fl (80-97); MONOCYTES % (AUTO) 6.8 % (3-13); PLATELET COUNT 463 10^3/uL (150-450); RED BLOOD COUNT 3.32 10^6/uL (3.72-5.28); SEGMENTED NEUTROPHILS % (AUTO) 61.7 % (42-78); TOTAL CELLS COUNTED % (AUTO) 100 %; WHITE BLOOD COUNT 17.4 10^3/uL (4.0-10.5)
[2018-04-12 08:05] LABS: ALANINE AMINOTRANSFERASE 50 U/L (9-52); ALBUMIN 3.3 g/dL (3.5-5.0); ALKALINE PHOSPHATASE 461 U/L (38-126); ANION GAP 17 (5-19); ASPARTATE AMINO TRANSFERASE 57 U/L (14-36); BILIRUBIN,DIRECT 0.7 mg/dL (0.0-0.4); BILIRUBIN,TOTAL 0.8 mg/dL (0.2-1.3); BLOOD UREA NITROGEN 47 mg/dL (7-20); CALCIUM 10.8 mg/dL (8.4-10.2); CARBON DIOXIDE 27 mmol/L (22-30); CHLORIDE 110 mmol/L (98-107); GLUCOSE 235 mg/dL (75-110); POTASSIUM 3.9 mmol/L (3.6-5.0); SODIUM 154.1 mmol/L (137-145); TOTAL PROTEIN 7.7 g/dL (6.3-8.2)
[2018-04-12] MEDS: AMLODIPINE BESYLATE 10 MG TABLET PEG SCH (10:09)
[2018-04-12] MEDS: FUROSEMIDE 40 MG TABLET PEG SCH (10:09)
[2018-04-12] MEDS: ASPIRIN 81 MG TABLET, CHEWABLE PEG SCH (10:09)
[2018-04-12] MEDS: MEMANTINE HCL 10 MG TABLET PEG SCH (10:09)
[2018-04-12] MEDS: ASCORBIC ACID 500 MG TABLET PEG SCH (10:09)
[2018-04-12] MEDS: INSULIN DETEMIR 100 UNIT/ML 3 ML PEN SUBCUT SCH (10:09)
[2018-04-12] MEDS: LACTOBACILLUS ACIDOPHILUS 250 MG TAB PEG SCH (10:09)
[2018-04-12] MEDS: MULTIVITAMINS W-IRON TABLET, CHEWABLE PEG SCH (10:21)
--- NOTE | 2018-04-12 14:31 | RADIOLOGY REPORT (SQ) ---
EXAM DESCRIPTION: CHEST SINGLE VIEW COMPLETED DATE/TIME: 04/12/2018 2:18 pm REASON FOR STUDY: lung collapse COMPARISON: 04/07/2018. EXAM PARAMETERS: NUMBER OF VIEWS: One view. TECHNIQUE: Single frontal radiographic view of the chest acquired. RADIATION DOSE: NA LIMITATIONS: None. FINDINGS: LUNGS AND PLEURA: Extensive diffuse opacification of the left hemithorax, unchanged. Wors ening airspace disease in the right lung with moderate pleural effusion. MEDIASTINUM AND HILAR STRUCTURES: No masses. Contour normal. HEART AND VASCULAR STRUCTURES: Heart normal in size. Normal vasculature. BONES: No acute findings. HARDWARE: Tracheostomy tube. OTHER: No other significant finding. IMPRESSION: WORSENING AIRSPACE DISEASE IN THE RIGHT LUNG WITH MODERATE RIGHT PLEURAL EFFUSION. COMP LETE OPACIFICATION OF THE LEFT HEMITHORAX, UNCHANGED. TECHNICAL DOCUMENTATION: JOB ID: [id number] [employer]- All Rights Reserved Reading location - IP/workstation name: [email or web address]
--- NOTE | 2018-04-12 15:43 | PDOC PROGRESS REPORT ---
Subjective Progress Note for:: 04/12/18 Subjective:: She has complete opacification of the left hemithorax suggesting lung collapse, there is moderate pleural effusion on the right, I discussed finding with patient, thoracentesis will be ordered for the right lung, she would need bronchoscopy for mucus unplugging Reason For Visit: SEPSIS,PNEUMONIA Physical Exam Vital Signs: Temp Pulse Resp BP Pulse Ox 98.8 F 109 H 29 H 124/86 H 95 04/12/18 11:04 04/12/18 14:00 04/12/18 13:35 04/12/18 11:04 04/12/18 13:35 Intake & Output 04/11/18 04/12/18 04/13/18 06:59 06:59 06:59 Intake Total 1847 1645 540 Output Total 1100 1350 650 Balance 747 295 -110 Weight 88 kg 88.9 kg General appearance: PRESENT: no acute distress Respiratory exam: PRESENT: decreased breath sounds Cardiovascular exam: PRESENT: +S1, +S2 GI/Abdominal exam: PRESENT: soft Results Laboratory Results: 04/12/18 07:15 04/12/18 07:15 04/12/18 04/12/18 07:15 07:15 WBC 17.4 H RBC 3.32 L Hgb 8.4 L Hct 26.5 L MCV 80 MCH 25.3 L MCHC 31.6 L RDW 20.0 H Plt Count 463 H Seg Neutrophils % 61.7 Lymphocytes % 21.1 Monocytes % 6.8 Eosinophils % 9.5 H Basophils % 0.9 Absolute Neutrophils 10.7 H Absolute Lymphocytes 3.7 Absolute Monocytes 1.2 Absolute Eosinophils 1.6 H Absolute Basophils 0.2 Sodium 154.1 H Potassium 3.9 Chloride 110 H Carbon Dioxide 27 Anion Gap 17 BUN 47 H Creatinine 1.08 Est GFR ( Amer) 59 L Est GFR (Non-Af Amer) 49 L Glucose 235 H Calcium 10.8 H Total Bilirubin 0.8 AST 57 H ALT 50 Alkaline Phosphatase 461 H Total Protein 7.7 Albumin 3.3 L Impressions: Thoracentesis Ultrasound 04/06/18 17:30 IMPRESSION: SUCCESSFUL THORACENTESIS USING ultrasound GUIDANCE. Chest X-Ray 04/12/18 00:00 IMPRESSION: WORSENING AIRSPACE DISEASE IN THE RIGHT LUNG WITH MODERATE RIGHT PLEURAL EFFUSION. COMPLETE OPACIFICATION OF THE LEFT HEMITHORAX, UNCHANGED. Assessment & Plan - Diagnosis (1) Acute hypoxemic respiratory failure Is this a current diagnosis for this admission?: Yes (2) Pneumonia Qualifiers: Pneumonia type: due to unspecified organism Laterality: bilateral Lung location: unspecified part of lung Qualified Code(s): J18.9 - Pneumonia, unspecified organism Is this a current diagnosis for this admission?: Yes (3) Basal cell carcinoma (BCC) of ala nasi Is this a current diagnosis for this admission?: Yes (4) Metabolic encephalopathy Is this a current diagnosis for this admission?: Yes (5) Urinary tract infection associated with indwelling urethral catheter Qualifiers: Encounter type: initial encounter Qualified Code(s): T83.511A - Infection and inflammatory reaction due to indwelling urethral catheter, initial encounter ; N39.0 - Urinary tract infection, site not specified; N39.0 - Urinary tract infection, site not specified Is this a current diagnosis for this admission?: Yes (6) Pleural effusion Is this a current diagnosis for this admission?: Yes (7) Sepsis Qualifiers: Sepsis type: sepsis due to unspecified organism Qualified Code(s): A41.9 - Sepsis, unspecified organism Is this a current diagnosis for this admission?: Yes (8) Collapse of left lung Is this a current diagnosis for this admission?: Yes
[2018-04-12 16:16] LABS: INTERNATIONAL RATION (INR) 1.27; PARTIAL THROMBOPLASTIN TIME 25.5 SEC (23.5-35.8); PROTHROMBIN TIME 16.6 SEC (11.4-15.4)
[2018-04-12] MEDS: ONDANSETRON HCL 8 MG TABLET PEG PRN (18:30)
[2018-04-12] MEDS ORDERED: VANCOMYCIN HCL INJ 500 MG VIAL IV ONE (19:39)
[2018-04-12] MEDS ORDERED: PIPERACILLIN/TAZOBACTAM 3.375 GM VIAL IV SCH (19:45)
[2018-04-12] MEDS ORDERED: LEVOFLOXACIN 750 MG/D5W RTU 750 MG/150 ML RTUPB IV SCH ×2 (20:00→23:00)
[2018-04-12] MEDS: VANCOMYCIN HCL 1,250 MG in DEXTROSE 5%-WATER 250 ML IV SCH (20:24)
[2018-04-12] MEDS ORDERED: PIPERACILLIN SODIUM/TAZOBACTAM 3.375 GM in NORMAL SALINE 100 ML IV SCH (22:00)
[2018-04-12] MEDS: DEXTROSE 5%-WATER 1000 ML 1,000 ML IV PRN (22:33)
[2018-04-13] MEDS ORDERED: LIDOCAINE 1% INJ-PF (10 MG/ML) 30 ML SDV ONE (00:36)
[2018-04-13] MEDS: INSULIN LISPRO 100 UNIT/ML 3 ML VIAL SUBCUT PRN ×5 (00:38→21:03)
[2018-04-13] MEDS: IPRATROPIUM/ALBUTEROL 0.5-2.5 MG/3 ML AMPUL NEB SCH ×4 (02:02→19:53)
[2018-04-13] MEDS: PIPERACILLIN SODIUM/TAZOBACTAM 3.375 GM in NORMAL SALINE 100 ML IV SCH ×3 (05:47→22:50)
[2018-04-13] MEDS: LEVOFLOXACIN 750 MG/D5W RTU 750 MG/150 ML RTUPB IV SCH (07:09)
[2018-04-13 07:20] LABS: ABSOLUTE BASOPHILS # (AUTO) 0.1 10^3/uL (0.0-0.2); ABSOLUTE EOSINOPHILS # (AUTO) 0.9 10^3/uL (0.0-0.6); ABSOLUTE LYMPHOCYTES (AUTO) 1.4 10^3/uL (0.5-4.7); ABSOLUTE MONOCYTES (AUTO) 0.9 10^3/uL (0.1-1.4); ABSOLUTE NEUT (AUTO) 13.8 10^3/uL (1.7-8.2); BASOPHILS % (AUTO) 0.6 % (0-2); EOSINOPHILS % (AUTO) 5.3 % (0-6); HEMATOCRIT 25.4 % (36.0-47.0); LYMPHOCYTES % (AUTO) 8.3 % (13-45); MEAN CORPUSCULAR HEMOGLOBIN 25.2 pg (27.0-33.4); MEAN CORPUSCULAR HGB CONC 31.5 g/dL (32.0-36.0); MEAN CORPUSCULAR VOLUME 80 fl (80-97); MONOCYTES % (AUTO) 5.5 % (3-13); PLATELET COUNT 456 10^3/uL (150-450); RED BLOOD COUNT 3.17 10^6/uL (3.72-5.28); RED CELL DISTRIBUTION WIDTH 20.5 % (11.5-14.0); SEGMENTED NEUTROPHILS % (AUTO) 80.3 % (42-78); TOTAL CELLS COUNTED % (AUTO) 100 %; WHITE BLOOD COUNT 17.1 10^3/uL (4.0-10.5)
[2018-04-13 07:39] LABS: ALANINE AMINOTRANSFERASE 49 U/L (9-52); ALBUMIN 3.3 g/dL (3.5-5.0); ALKALINE PHOSPHATASE 496 U/L (38-126); ANION GAP 15 (5-19); ASPARTATE AMINO TRANSFERASE 59 U/L (14-36); BILIRUBIN,DIRECT 0.7 mg/dL (0.0-0.4); BILIRUBIN,TOTAL 0.7 mg/dL (0.2-1.3); BLOOD UREA NITROGEN 49 mg/dL (7-20); CALCIUM 10.7 mg/dL (8.4-10.2); CARBON DIOXIDE 27 mmol/L (22-30); CHLORIDE 111 mmol/L (98-107); GLUCOSE 246 mg/dL (75-110); POTASSIUM 3.8 mmol/L (3.6-5.0); SODIUM 153.4 mmol/L (137-145); TOTAL PROTEIN 7.6 g/dL (6.3-8.2)
[2018-04-13] MEDS: BUDESONIDE NEB 0.5 MG/2 ML AMPUL NEB SCH ×2 (08:05→19:53)
--- NOTE | 2018-04-13 09:22 | PDOC PROGRESS REPORT ---
Subjective Progress Note for:: 04/13/18 Subjective:: Patient tracking with her eyes; not following commands Reason For Visit: SEPSIS,PNEUMONIA Evaluation for trach change tracheal dilatation Physical Exam Vital Signs: Temp Pulse Resp BP Pulse Ox 99.6 F 111 H 20 173/80 H 90 L 04/13/18 07:42 04/13/18 07:42 04/13/18 07:42 04/13/18 07:42 04/13/18 07:42 Intake & Output 04/12/18 04/13/18 04/14/18 06:59 06:59 06:59 Intake Total 1645 2533 Output Total 1350 1500 Balance 295 1033 Weight 88.9 kg 88.4 kg Exam: On ventilator; not following commands; percent FiO2; Respiratory exam: PRESENT: other - Rhonchi bilaterally; decreased breath sounds bilaterally Results Laboratory Results: 04/13/18 06:58 04/13/18 06:58 04/12/18 04/13/18 04/13/18 15:38 06:58 06:58 WBC 17.1 H RBC 3.17 L Hgb 8.0 L Hct 25.4 L MCV 80 MCH 25.2 L MCHC 31.5 L RDW 20.5 H Plt Count 456 H Seg Neutrophils % 80.3 H Lymphocytes % 8.3 L Monocytes % 5.5 Eosinophils % 5.3 Basophils % 0.6 Absolute Neutrophils 13.8 H Absolute Lymphocytes 1.4 Absolute Monocytes 0.9 Absolute Eosinophils 0.9 H Absolute Basophils 0.1 Sodium 153.4 H Potassium 3.8 Chloride 111 H Carbon Dioxide 27 Anion Gap 15 BUN 49 H Creatinine 1.18 Est GFR ( Amer) 53 L Est GFR (Non-Af Amer) 44 L Glucose 246 H Calcium 10.7 H Total Bilirubin 0.7 AST 59 H ALT 49 Alkaline Phosphatase 496 H Total Protein 7.5 7.6 Albumin 3.3 L Impressions: Thoracentesis Ultrasound 04/06/18 17:30 IMPRESSION: SUCCESSFUL THORACENTESIS USING ultrasound GUIDANCE. Chest X-Ray 04/12/18 00:00 IMPRESSION: WORSENING AIRSPACE DISEASE IN THE RIGHT LUNG WITH MODERATE RIGHT PLEURAL EFFUSION. COMPLETE OPACIFICATION OF THE LEFT HEMITHORAX, UNCHANGED. Assessment & Plan - Diagnosis (1) Acute hypoxemic respiratory failure Is this a current diagnosis for this admission?: Yes Plan: Assessment: 82-year-old white female with acute superimposed on chronic respiratory failure, 2-year-old 6 Shiley tracheostomy, now with complete white out of left lung field; reportedly full CODE STATUS. Recommendations: 1. I spoke at length with the patient's daughter who is the healthcare power of corporate associate attorney. I explained to her that the plan proposed by Dr. Coyle, strategic marketing manager, is to change the tracheostomy tube to a #8 and perform bronchoscopy. Also to perform tracheal dilatation. In My estimation, this undertaking should be performed at a facility that has adequate backup including ENT support, ICU support, and deeper surgical backup. Currently the patient has exhausted her length of stay at LTAC's the area. 2. In addition, this high-risk patient, who has had a prolonged stays in and out of the care facilities has really reached a caitlyn in terms of her pulmonary condition, and in my estimation, we are entering a stage of medical futility. I do not think it is reasonable to continue aggressively intervening in the natural course of events with this patient. Clearly my office of the on this point is in conflict with the patient's daughter who believes everything should be done at all costs and with all risks. 3. I have canceled the case in the operating room today; I am trying to speak with Dr. Christensen regarding my recommendation. Whether the patient can be transferred to a higher level of care is yet to be determined.
[2018-04-13] MEDS: LACTOBACILLUS ACIDOPHILUS 250 MG TAB PEG SCH (09:29)
[2018-04-13] MEDS: MULTIVITAMINS W-IRON TABLET, CHEWABLE PEG SCH (09:29)
[2018-04-13] MEDS: INSULIN DETEMIR 100 UNIT/ML 3 ML PEN SUBCUT SCH (09:30)
[2018-04-13] MEDS: MEMANTINE HCL 10 MG TABLET PEG SCH (09:30)
[2018-04-13] MEDS: ASCORBIC ACID 500 MG TABLET PEG SCH (09:30)
[2018-04-13] MEDS: FUROSEMIDE 40 MG TABLET PEG SCH (09:30)
[2018-04-13] MEDS: AMLODIPINE BESYLATE 10 MG TABLET PEG SCH (09:30)
[2018-04-13] MEDS: ASPIRIN 81 MG TABLET, CHEWABLE PEG SCH (09:30)
[2018-04-13] MEDS: ENOXAPARIN SODIUM INJ 40 MG/0.4 ML DISP.SYRIN SUBCUT SCH (10:29)
--- NOTE | 2018-04-13 11:38 | CONSULTATION REPORT E ---
Consultation Report NAME: BRIANA BRADY : 1935 AGE: 82Y DATE: 04/12/2018 301 A TO: JOCELYN MIRANDA M.D. FROM: BAKARI BECKER M.D. Requesting Physician HISTORY OF PRESENT ILLNESS: The patient is an 83-year-old female who came in for increased shortness of breath and altered mental status. Treated for pneumonia and given IV Indocin. Had a thoracentesis done on the right chest with moderate atelectasis on the left lung. Consulted for further evaluation and management. Patient has been on ventilator therapy for several months. Was on [facility] chronic ventilator therapy unit and was discharged later to home and then eventually admitted here. There was no fever within 24 hours. Spoke to the patient's daughter and the patient's son, (who have the Power of Radiology Nurse) about possible flexible bronchoscopy and change of the tracheostomy tube to size 8 from shiley tube size 6. Both agreed for thetracheostomy change and the flexible bronchoscopy. Patient's son and daughter claimed that their mother still wants everything. They will rescind DNR orders and make her FULL CODE. No vomiting, no diarrhea noted. No fever spikes. PAST MEDICAL HISTORY: 1. Congestive heart failure. 2. Hyperlipidemia. 3. Hypertension. 4. Peripheral vascular disease. 5. Pulmonary embolism. 6. COPD. 7. Pneumonia aspiration. 8. Diabetes mellitus type 2. 9. Dementia. 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 diff. PAST SURGICAL HISTORY: 1. Shoulder, right below knee amputation. 2. Tracheostomy and PEG tube placement. SOCIAL HISTORY: Unknown. Never smoked. Denies any illicit drug use or recreational drug abuse. CURRENT MEDICATIONS: Include: 1. Tylenol. 2. Duoneb nebulizer. 3. Norvasc. 4. Ascorbic acid. 5. Aspirin. 6. Pulmicort nebulizer. 8. Lovenox for DVT prophylaxis. 9. Lasix 40 mg . 10. Levemir. 11. Lactulose. 12. Namenda. 13. Multivitamin. 14. Unasyn. 15. Mucinex. ALLERGIES: 1. XANAX. 2. IODINE. 3. SEROQUEL. REVIEW OF SYSTEMS: Unremarkable. Altered mental status. PHYSICAL EXAMINATION: GENERAL: The patient appeared awake, but nonverbal. Appeared coherent, oriented. Not in apparent severe respiratory distress. Currently on the ventilator. VITAL SIGNS: Temperature 100.2 with a T-max of 100.3. Heart rate of 106, blood pressure 140/118, respiratory rate is 29, EYES: No jaundice or pallor. CHEST AND LUNGS: No wheezing, no rhonchi. EARS, NOSE, MOUTH AND THROAT: tracheostomy tube in place. ABDOMEN: Flabby, positive bowel sounds. Nondistended. EXTREMITIES: No joint swelling. LABORATORY: CBC done today showed a white count of 17.4 down from 19.3 yesterday. Hemoglobin is 8.4. Chemistry today shows sodium is 154, potassium 3.9, chloride 110, CO2 is 27, BUN 27 and creatinine is 1.08. Calcium is 10.8 and SGOT is 57 and SGPT is 50, albumin is 3.3. ASSESSMENT: 1. CHRONIC RESPIRATORY FAILURE REQUIRING INVASIVE MECHANICAL VENTILATION. 2. MASSIVE ATELECTASIS LEFT LUNG 3. MULTILOBULAR PNEUMONIA BIBASILAR WITH PLEURAL EFFUSION STATUS POST THORACENTESIS. Worsening pneumonia. 4. HISTORY OF HEART FAILURE. PLAN AND RECOMMENDATIONS: 1. Consult Surgery for possible tracheostomy tube change to a size 8 from size 6. 2. Will consider flexible bronchostomy after tracheostomy change. 3. Sputum culture. 4. Will do blood culture times 2 sets. 5. Will discontinue the Unasyn or Mucomyst. 6. Continue the nebulizer treatment, Duoneb every 6 hours. 7. Start Zosyn 3.375 mg IV piggyback every 8 hours. 8. Start Levaquin 750 mg IV piggyback now and once daily after. 9. Start vancomycin 500 mg IV piggyback, to follow up labs and adjust the dose. 10. Will follow patient. 11. Recommend lifting the DNR order to FULL CODE before tracheostomy change and for bronchoscopy. DICTATING PHYSICIAN: JOCELYN MIRANDA MD,PURNIMA,MPH 3M [id number] PHY#: [id number] 2021 ID: [id number] JOB#: [id number] ACCT: [id number] cc:JOCELYN MIRANDA M.D. > MAXD
[2018-04-13 17:36] LABS: ALBUMIN UR 56.3 % (.); ALPHA-1-GLOBULIN URINE 4.8 % (.); ALPHA-2-GLOBULIN URINE 6.6 % (.); GAMMA GLOBULIN URINE 18.8 % (.); M-SPIKE % UR Not Observed % (Not Observ); PROTEIN TOTAL URINE 192.8 mg/dL (Not Estab.)
[2018-04-13 18:36] LABS: A/G RATIO 0.6 (0.7-1.7); ALBUMIN 2 2.6 g/dL (2.9-4.4); ALPHA-2-GLOBULIN 2 0.9 g/dL (0.4-1.0); GAMMA GLOBULIN 1.8 g/dL (0.4-1.8); GLOBULIN TOTAL 4.1 g/dL (2.2-3.9); MONOCLONAL SPIKE Not Observed g/dL (Not Observ); PROTEIN TOTAL SERUM 6.7 g/dL (6.0-8.5)
--- NOTE | 2018-04-13 18:58 | Progress Note ---
Provider Note Provider Note: ID Consult Note Asked by Pharmacy to review patient's chart. Pt not seen or examined. Reviewed VS, provider notes, imaging reports, images, labs. Ms. Matt is an 82 year old woman who is an obese, diabetic, chronically debilitated, bedbound woman with CHF, hyperparathyroidism, chronic respiratory failure with ventilator dependence s/p trach, s/p PEG placement, and has chronic indwelling romero. She was recently discharged from [facility] on 03/29/18 after nearly a month long hospitalization during which time she was empirically treated for acute on chronic respiratory failure due to RLL pneumonia with R pleural effusion that was tapped and also was diagnosed with complicated UTI with Pseudomonas aeruginosa and E faecalis that grew from a urine culture. She returneed 8 days later on 04/06/18 with complaint from family that pt had fever and increased somnolence. On exam pt had nontender abdomen, wheezes and rhonchi on lung exam. She had leukocytosis with WBC count 29.7k, elevated NT Pro BNP 68587 pg/mL, CXR read as showing increasing airspace consolidation in mid-lower lungs R>L. Thoracentesis was performed on 04/07 for R pleural effusion with 560 WBCs 91% lymphs, LDH 120, protein 3.9, serum-pleural protein gradient 3.1. Blood cultures were obtained on 04/06 and showed no growth. Pleural fluid gram stain and bacterial culture showed no growth. No sputum sent. Other studies included C diff PCR of stool on 04/06 negative and U/A with 2 WBCs/ hpf. Pt was empirically given 1 dose of vanc and cefepime in the ED on 04/06, then treated with Unasyn from 04/07-04/12. Repeat CXR on 04/07 showed extensive opacification of L hemithorax. Last fever was on 04/09, although pt has continued to have some low grade fever 100.2 - 100.3 on 04/11 and 04/12. Leukocytosis improved to around 17k. Repeat CXR on 04/12 was read as showing same L hemithorax opacification along with worsening airspace disease in R lung with moderate pleural effusion. Pulmonology was consulted, recommended changing Unasyn to Levaquin/Zosyn/Vanc and upsizing trach followed by bronch, sending sputum on 04/12 - preliminarily reported showing growth of GNRs - and repeat BCx on 04/12 that are in process. Impression/Recommendations Acute on chronic respiratory failure, ventilator associated pneumonia - f/u sputum culture from 04/12, although the significance of this growth has to be taken into context with a week of prior antibiotic exposure, other factors contributing to worsened respiratory status (effusion, possible mucus plugging) - if no MRSA isolated, discontinue vancomycin - based on susceptibility of GNR, de-escalate as appropriate; for now "double covering" is reasonable Recurrent exudative R pleural effusion - most likely etiology may be CHF with transudative effusion that has higher protein due to diuresis; with around 90% lymphocytes in pleural fluid, TB may need to be considered in the differential diagnosis, however, and to this end, getting PPD or Quantiferon would be helpful along with inquiring into TB risk factors (hx of travel to highly endemic areas, known TB contact, prior senior care stay, prior healthcare work exposure). Most tuberculous pleurisy is characterized by elevated LDH in fluid, usually higher WBC counts. If another thoracentesis is to be performed in the future, send ADA. Aureliano Bullock MD [facility] Infectious Diseases pager [phone]
--- NOTE | 2018-04-13 20:45 | PDOC PROGRESS REPORT ---
Subjective Progress Note for:: 04/13/18 Reason For Visit: SEPSIS,PNEUMONIA Physical Exam Vital Signs: Temp Pulse Resp BP Pulse Ox 98.8 F 144 H 20 134/77 H 89 L 04/13/18 19:45 04/13/18 19:45 04/13/18 19:45 04/13/18 19:45 04/13/18 19:45 Intake & Output 04/12/18 04/13/18 04/14/18 06:59 06:59 06:59 Intake Total 1645 2533 1913 Output Total 1350 1500 450 Balance 295 1033 1463 Weight 88.9 kg 88.4 kg Results Laboratory Results: 04/13/18 06:58 04/13/18 06:58 04/13/18 04/13/18 06:58 06:58 WBC 17.1 H RBC 3.17 L Hgb 8.0 L Hct 25.4 L MCV 80 MCH 25.2 L MCHC 31.5 L RDW 20.5 H Plt Count 456 H Seg Neutrophils % 80.3 H Lymphocytes % 8.3 L Monocytes % 5.5 Eosinophils % 5.3 Basophils % 0.6 Absolute Neutrophils 13.8 H Absolute Lymphocytes 1.4 Absolute Monocytes 0.9 Absolute Eosinophils 0.9 H Absolute Basophils 0.1 Sodium 153.4 H Potassium 3.8 Chloride 111 H Carbon Dioxide 27 Anion Gap 15 BUN 49 H Creatinine 1.18 Est GFR ( Amer) 53 L Est GFR (Non-Af Amer) 44 L Glucose 246 H Calcium 10.7 H Total Bilirubin 0.7 AST 59 H ALT 49 Alkaline Phosphatase 496 H Total Protein 7.6 Albumin 3.3 L Impressions: Thoracentesis Ultrasound 04/06/18 17:30 IMPRESSION: SUCCESSFUL THORACENTESIS USING ultrasound GUIDANCE. Chest X-Ray 04/12/18 00:00 IMPRESSION: WORSENING AIRSPACE DISEASE IN THE RIGHT LUNG WITH MODERATE RIGHT PLEURAL EFFUSION. COMPLETE OPACIFICATION OF THE LEFT HEMITHORAX, UNCHANGED. Assessment & Plan - Diagnosis (1) Acute hypoxemic respiratory failure Is this a current diagnosis for this admission?: Yes (2) Pneumonia Qualifiers: Pneumonia type: due to unspecified organism Laterality: bilateral Lung location: unspecified part of lung Qualified Code(s): J18.9 - Pneumonia, unspecified organism Is this a current diagnosis for this admission?: Yes (3) Basal cell carcinoma (BCC) of ala nasi Is this a current diagnosis for this admission?: Yes (4) Metabolic encephalopathy Is this a current diagnosis for this admission?: Yes (5) Urinary tract infection associated with indwelling urethral catheter Qualifiers: Encounter type: initial encounter Qualified Code(s): T83.511A - Infection and inflammatory reaction due to indwelling urethral catheter, initial encounter ; N39.0 - Urinary tract infection, site not specified; N39.0 - Urinary tract infection, site not specified Is this a current diagnosis for this admission?: Yes (6) Pleural effusion Is this a current diagnosis for this admission?: Yes (7) Sepsis Qualifiers: Sepsis type: sepsis due to unspecified organism Qualified Code(s): A41.9 - Sepsis, unspecified organism Is this a current diagnosis for this admission?: Yes (8) Collapse of left lung Is this a current diagnosis for this admission?: Yes
[2018-04-13] MEDS: VANCOMYCIN HCL 1,250 MG in DEXTROSE 5%-WATER 250 ML IV SCH (21:03)
--- NOTE | 2018-04-13 21:59 | PDOC TRANSFER SUMMARY ---
General Admission Date/PCP: 04/06/18 09:22 BAKARI BECKER MD Transfer Date: 04/13/18 Accepting Facility: [place] Resuscitation Status: Full Code - Transfer Diagnosis (1) Acute hypoxemic respiratory failure Is this a current diagnosis for this admission?: Yes (2) Pneumonia Is this a current diagnosis for this admission?: Yes (3) Basal cell carcinoma (BCC) of ala nasi Is this a current diagnosis for this admission?: Yes (4) Metabolic encephalopathy Is this a current diagnosis for this admission?: Yes (5) Urinary tract infection associated with indwelling urethral catheter Is this a current diagnosis for this admission?: Yes (6) Pleural effusion Is this a current diagnosis for this admission?: Yes (7) Sepsis Is this a current diagnosis for this admission?: Yes (8) Collapse of left lung Is this a current diagnosis for this admission?: Yes - Transfer Medications Home Medications: Acetaminophen [Tylenol 325 mg Tablet] 650 mg PEG BIDP PRN 04/06/18 Acidoph/L.bulg/Bif.b/S.thermop [Bel-Bid Caplet] 1 each PEG DAILY 04/06/18 Amlodipine Besylate [Norvasc 10 mg Tablet] 10 mg PEG DAILY 04/06/18 Ascorbic Acid [Vitamin C 500 mg Tablet] 500 mg PEG DAILY 04/06/18 Aspirin [Aspirin 81 mg Chewable Tablet] 81 mg PEG DAILY 04/06/18 Budesonide [Pulmicort Neb 0.5 mg/2 ml Ampul] 0.5 mg NEB RTQ12 04/06/18 Furosemide [Lasix 40 mg Tablet] 40 mg PEG DAILY 04/06/18 Insulin Aspart [Novolog Flexpen] 0 unit SUBCUT .SLD SCALE 04/06/18 Insulin Detemir [Levemir Flextouch] 10 unit SQ DAILY 04/06/18 Ipratropium/Albuterol Sulfate [Duoneb 3 ml Ampul] 3 ml NEB RTQ6 04/06/18 Memantine HCl [Namenda 10 mg Tablet] 10 mg PEG DAILY 04/06/18 Multivitamin [Multiple Vitamins] 1 each PEG DAILY 04/06/18 Ondansetron HCl [Zofran 8 mg Tablet] 8 mg PEG Q8HP PRN 04/06/18 Sennosides/Docusate Sodium [Senna-S Tablet] 1 each PEG DAILYP PRN 04/06/18 Transfer Medications: Current Medications Acetaminophen (Tylenol 325 Mg Tablet) 650 mg PEG BIDP PRN PRN Reason: FOR FEVER Stop: 05/06/18 21:02 Last Admin: 04/11/18 04:12 Dose: 650 mg Albuterol/Ipratropium (Duoneb 3 Ml Ampul) 3 ml NEB RTQ6 [facility] Stop: 05/07/18 01:59 Last Admin: 04/13/18 19:53 Dose: 3 ml Amlodipine Besylate (Norvasc 10 Mg Tablet) 10 mg PEG DAILY [facility] Stop: 05/07/18 09:59 Last Admin: 04/13/18 09:30 Dose: 10 mg Ascorbic Acid (Vitamin C 500 Mg Tablet) 500 mg PEG DAILY [facility] Stop: 05/07/18 09:59 Last Admin: 04/13/18 09:30 Dose: 500 mg Aspirin (Aspirin 81 Mg Chewable Tablet) 81 mg PEG DAILY [facility] Stop: 05/07/18 09:59 Last Admin: 04/13/18 09:30 Dose: 81 mg Budesonide (Pulmicort Neb 0.5 Mg/2 Ml Ampul) 0.5 mg NEB RTQ12 [facility] Stop: 05/07/18 07:59 Last Admin: 04/13/18 19:53 Dose: 0.5 mg Dextrose (Dextrose Inj 50% Syringe (25 Gm/50 Ml)) 12.5 gm IV PRN PRN; Protocol PRN Reason: FOR BG 50-69 IN ALERT PATIENT Stop: 05/06/18 23:28 Dextrose (Dextrose Inj 50% Syringe (25 Gm/50 Ml)) 25 gm IV PRN PRN PRN Reason: Protocol Stop: 05/06/18 23:28 Enoxaparin Sodium (Lovenox Inj 40 Mg/0.4 Ml Disp.Syrin) 40 mg SUBCUT DAILY [facility] Stop: 05/13/18 09:59 Last Admin: 04/13/18 10:29 Dose: Not Given Furosemide (Lasix 40 Mg Tablet) 40 mg PEG DAILY [facility] Stop: 05/07/18 09:59 Last Admin: 04/13/18 09:30 Dose: 40 mg Glucagon (Glucagen Inj 1 Mg Vial) 1 mg IM PRN PRN; Protocol PRN Reason: EVALUATE FOR BG < 70 Stop: 05/06/18 23:28 Glucose (Glutose 40% Gel 15 Gm Tube) 15 gm PO PRN PRN; Protocol PRN Reason: FOR BG 50-69 IN ALERT PATIENT Stop: 05/06/18 23:28 Glucose (Glutose 40% Gel 15 Gm Tube) 30 gm PO PRN PRN; Protocol PRN Reason: FOR BG < 50 IN ALERT PATIENT Stop: 05/06/18 23:28 Dextrose (D5w 1000 Ml Iv Soln) 1,000 mls @ 30 mls/hr IV CONTINUOUS PRN PRN Reason: THIS MED IS NOT "PRN" Stop: 05/08/18 13:55 Last Admin: 04/12/18 22:33 Dose: 1,000 ml Vancomycin HCl 1,250 mg/ (Dextrose) 250 mls @ 166.667 mls/hr IV DAILY@2100 [facility] Stop: 04/19/18 20:59 Last Admin: 04/13/18 21:03 Dose: 1,250 mg Levofloxacin/Dextrose (Levaquin Rtu 750 Mg/D5w 150 Ml Premix) 750 mg in 150 mls @ 100 mls/hr IV Q2D@0600 [facility] Stop: 04/20/18 05:59 Last Admin: 04/13/18 07:09 Dose: 150 ml Piperacillin Sod/Tazobactam (Sod 3.375 gm/ Sodium Chloride) 100 mls @ 200 mls/ hr IV Q8 [facility] Stop: 04/20/18 05:59 Last Admin: 04/13/18 13:44 Dose: 3.375 gm Insulin Detemir (Levemir Insulin 300 Units/3 Ml Insuln.Pen) 10 unit SUBCUT DAILY [facility] Stop: 05/07/18 09:59 Last Admin: 04/13/18 09:30 Dose: 10 unit Insulin Human Lispro (Humalog Insulin 100 Unit/1 Ml 3 Ml Vial) 0 - 12 unit SUBCUT ACHSP PRN PRN Reason: Protocol Stop: 05/06/18 23:28 Last Admin: 04/13/18 21:03 Dose: 4 unit Lactobacillus Acidophilus (Bacid 250 Mg Tablet) 250 mg PEG DAILY [facility] Stop: 05/08/18 09:59 Last Admin: 04/13/18 09:29 Dose: 250 mg Memantine (Namenda 10 Mg Tablet) 10 mg PEG DAILY [facility] Stop: 05/07/18 09:59 Last Admin: 04/13/18 09:30 Dose: 10 mg Multivitamins/Iron (Flintstones Chewable Multivit W/Fe Tab) 1 tab PEG DAILY [facility] Stop: 05/08/18 09:59 Last Admin: 04/13/18 09:29 Dose: 1 tab Ondansetron HCl (Zofran 8 Mg Tablet) 8 mg PEG Q8HP PRN PRN Reason: NAUSEA/VOMITING Stop: 05/06/18 23:09 Last Admin: 04/12/18 18:30 Dose: 8 mg Senna/Docusate Sodium (Senna Plus Tablet) 1 each PEG DAILYP PRN PRN Reason: FOR CONSTIPATION Stop: 05/06/18 21:02 Last Admin: 04/08/18 23:39 Dose: 1 each - Allergies Allergies/Adverse Reactions: alprazolam [From Xanax] Allergy (Verified 03/07/18 09:34) iodine [Iodine] Allergy (Verified 03/07/18 09:34) quetiapine fumarate [From Seroquel] Allergy (Verified 03/07/18 09:34) Hospital Course Hospital Course: Patient 82-year-old female with multiple comorbid conditions she was admitted on April 06, 2018 when she presented to the emergency room for evaluation of altered mental status. She was just discharged from this hospital about 7 days before she was readmitted she spent almost 1 month in the hospital before she was discharged. 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 She developed left lung atelectasis felt to be due to mucous plugging pulmonary was consulted she needs bronchoscopy, the shopper insights manager agreed that she needed bronchoscopy but he recommended to have the tracheostomy tube change to #8 size and also perform trachea dilatation, she was seen by the surgeon he suggested that patient to be transferred to a tertiary care center for the procedure she is a very high risk patient, chronically ill, I spoke with [facility], they were kind enough to accept her in transfer. Physical Exam Vital Signs: Temp Pulse Resp BP Pulse Ox 98.8 F 76 19 134/77 H 92 04/13/18 19:45 04/13/18 19:53 04/13/18 19:53 04/13/18 19:45 04/13/18 19:53 Intake & Output 04/12/18 04/13/18 04/14/18 06:59 06:59 06:59 Intake Total 1645 2533 1913 Output Total 1350 1500 450 Balance 295 1033 1463 Weight 88.9 kg 88.4 kg Eye exam: PRESENT: PERRLA Respiratory exam: PRESENT: decreased breath sounds Cardiovascular exam: PRESENT: +S1, +S2 GI/Abdominal exam: PRESENT: soft Neurological exam: PRESENT: alert Results Laboratory Results: 04/13/18 06:58 04/13/18 06:58 04/13/18 04/13/18 06:58 06:58 WBC 17.1 H RBC 3.17 L Hgb 8.0 L Hct 25.4 L MCV 80 MCH 25.2 L MCHC 31.5 L RDW 20.5 H Plt Count 456 H Seg Neutrophils % 80.3 H Lymphocytes % 8.3 L Monocytes % 5.5 Eosinophils % 5.3 Basophils % 0.6 Absolute Neutrophils 13.8 H Absolute Lymphocytes 1.4 Absolute Monocytes 0.9 Absolute Eosinophils 0.9 H Absolute Basophils 0.1 Sodium 153.4 H Potassium 3.8 Chloride 111 H Carbon Dioxide 27 Anion Gap 15 BUN 49 H Creatinine 1.18 Est GFR ( Amer) 53 L Est GFR (Non-Af Amer) 44 L Glucose 246 H Calcium 10.7 H Total Bilirubin 0.7 AST 59 H ALT 49 Alkaline Phosphatase 496 H Total Protein 7.6 Albumin 3.3 L Impressions: Thoracentesis Ultrasound 04/06/18 17:30 IMPRESSION: SUCCESSFUL THORACENTESIS USING ultrasound GUIDANCE. Chest X-Ray 04/12/18 00:00 IMPRESSION: WORSENING AIRSPACE DISEASE IN THE RIGHT LUNG WITH MODERATE RIGHT PLEURAL EFFUSION. COMPLETE OPACIFICATION OF THE LEFT HEMITHORAX, UNCHANGED. Plan Discharge Plan: Patient to be transferred to [facility] once bed is available
[2018-04-14] MEDS: IPRATROPIUM/ALBUTEROL 0.5-2.5 MG/3 ML AMPUL NEB SCH ×4 (02:33→19:54)
[2018-04-14] MEDS: INSULIN LISPRO 100 UNIT/ML 3 ML VIAL SUBCUT PRN ×4 (02:35→19:25)
[2018-04-14] MEDS: DEXTROSE 5%-WATER 1000 ML 1,000 ML IV PRN (03:00)
[2018-04-14] MEDS: PIPERACILLIN SODIUM/TAZOBACTAM 3.375 GM in NORMAL SALINE 100 ML IV SCH ×2 (06:20→13:06)
[2018-04-14] MEDS: BUDESONIDE NEB 0.5 MG/2 ML AMPUL NEB SCH ×2 (07:44→19:54)
[2018-04-14 08:35] LABS: ABSOLUTE BASOPHILS # (AUTO) 0.1 10^3/uL (0.0-0.2); ABSOLUTE EOSINOPHILS # (AUTO) 0.8 10^3/uL (0.0-0.6); ABSOLUTE MONOCYTES (AUTO) 0.9 10^3/uL (0.1-1.4); ABSOLUTE NEUT (AUTO) 9.8 10^3/uL (1.7-8.2); BASOPHILS % (AUTO) 1.1 % (0-2); EOSINOPHILS % (AUTO) 6.1 % (0-6); HEMATOCRIT 23.4 % (36.0-47.0); LYMPHOCYTES % (AUTO) 14.9 % (13-45); MEAN CORPUSCULAR HEMOGLOBIN 26.2 pg (27.0-33.4); MEAN CORPUSCULAR HGB CONC 32.7 g/dL (32.0-36.0); MEAN CORPUSCULAR VOLUME 80 fl (80-97); MONOCYTES % (AUTO) 6.8 % (3-13); PLATELET COUNT 409 10^3/uL (150-450); RED BLOOD COUNT 2.92 10^6/uL (3.72-5.28); RED CELL DISTRIBUTION WIDTH 20.2 % (11.5-14.0); SEGMENTED NEUTROPHILS % (AUTO) 71.1 % (42-78); TOTAL CELLS COUNTED % (AUTO) 100 %; WHITE BLOOD COUNT 13.8 10^3/uL (4.0-10.5)
[2018-04-14 08:44] LABS: HEMOGLOBIN 7.7 g/dL (12.0-15.5)
[2018-04-14 08:59] LABS: ALANINE AMINOTRANSFERASE 45 U/L (9-52); ALBUMIN 3.1 g/dL (3.5-5.0); ALKALINE PHOSPHATASE 415 U/L (38-126); ANION GAP 14 (5-19); ASPARTATE AMINO TRANSFERASE 56 U/L (14-36); BILIRUBIN,DIRECT 0.6 mg/dL (0.0-0.4); BILIRUBIN,TOTAL 0.6 mg/dL (0.2-1.3); BLOOD UREA NITROGEN 55 mg/dL (7-20); CALCIUM 10.2 mg/dL (8.4-10.2); CARBON DIOXIDE 26 mmol/L (22-30); CHLORIDE 110 mmol/L (98-107); GLUCOSE 226 mg/dL (75-110); POTASSIUM 4.2 mmol/L (3.6-5.0); SODIUM 150.2 mmol/L (137-145); TOTAL PROTEIN 7.2 g/dL (6.3-8.2)
[2018-04-14] MEDS: LACTOBACILLUS ACIDOPHILUS 250 MG TAB PEG SCH (09:30)
[2018-04-14] MEDS: ASCORBIC ACID 500 MG TABLET PEG SCH (09:30)
[2018-04-14] MEDS: MULTIVITAMINS W-IRON TABLET, CHEWABLE PEG SCH (09:30)
[2018-04-14] MEDS: FUROSEMIDE 40 MG TABLET PEG SCH (09:31)
[2018-04-14] MEDS: ASPIRIN 81 MG TABLET, CHEWABLE PEG SCH (09:31)
[2018-04-14] MEDS: AMLODIPINE BESYLATE 10 MG TABLET PEG SCH (09:31)
[2018-04-14] MEDS: MEMANTINE HCL 10 MG TABLET PEG SCH (09:32)
[2018-04-14] MEDS: INSULIN DETEMIR 100 UNIT/ML 3 ML PEN SUBCUT SCH (09:32)
[2018-04-14] MEDS: ENOXAPARIN SODIUM INJ 40 MG/0.4 ML DISP.SYRIN SUBCUT SCH (09:32)
--- NOTE | 2018-04-14 11:11 | RADIOLOGY REPORT (SQ) ---
EXAM DESCRIPTION: CHEST SINGLE VIEW COMPLETED DATE/TIME: 04/14/2018 11:03 am REASON FOR STUDY: on ventilator COMPARISON: Chest films 03/20/2018, 04/07/2018, 04/12/2018 EXAM PARAMETERS: NUMBER OF VIEWS: One view. TECHNIQUE: Single frontal radiographic view of the chest acquired. RADIATION DOSE: NA LIMITATIONS: None. FINDINGS: LUNGS AND PLEURA: Improved aeration of the left upper lobe compared to 04/12/2018. There is persistent dense consolidation in the right mid and lower lung, and left mid and lower lung. Underlying pleural effusions could not be excluded. No pneumothorax. MEDIASTINUM AND HILAR STRUCTURES: No masses. Contour normal. HEART AND VASCULAR STRUCTURES: Stable cardiomegaly BONES: No acute findings. HARDWARE: Tracheostomy tube tip in the upper trachea. OTHER: No other significant finding. IMPRESSION: Improved aeration of the left upper lobe compared to previous studies. Persistent dense consolidation in the bilateral mid and lower lungs. Tracheostomy tube tip in the upper trachea, in good positioning. TECHNICAL DOCUMENTATION: JOB ID: [id number] [employer]- All Rights Reserved Reading location - IP/workstation name: [email or web address]
[2018-04-14] MEDS: VANCOMYCIN HCL 1,250 MG in DEXTROSE 5%-WATER 250 ML IV SCH (21:43)
[2018-04-15] MEDS: PIPERACILLIN SODIUM/TAZOBACTAM 3.375 GM in NORMAL SALINE 100 ML IV SCH ×3 (00:04→13:15)
[2018-04-15] MEDS: INSULIN LISPRO 100 UNIT/ML 3 ML VIAL SUBCUT PRN ×3 (00:30→18:09)
[2018-04-15] MEDS: IPRATROPIUM/ALBUTEROL 0.5-2.5 MG/3 ML AMPUL NEB SCH ×4 (01:18→20:58)
[2018-04-15] MEDS: DEXTROSE 5%-WATER 1000 ML 1,000 ML IV PRN (05:01)
[2018-04-15] MEDS: LEVOFLOXACIN 750 MG/D5W RTU 750 MG/150 ML RTUPB IV SCH (05:02)
[2018-04-15 05:18] LABS: ABSOLUTE BASOPHILS # (AUTO) 0.2 10^3/uL (0.0-0.2); ABSOLUTE EOSINOPHILS # (AUTO) 1.2 10^3/uL (0.0-0.6); ABSOLUTE LYMPHOCYTES (AUTO) 2.5 10^3/uL (0.5-4.7); ABSOLUTE MONOCYTES (AUTO) 0.9 10^3/uL (0.1-1.4); ABSOLUTE NEUT (AUTO) 10.1 10^3/uL (1.7-8.2); EOSINOPHILS % (AUTO) 8.3 % (0-6); HEMATOCRIT 23.5 % (36.0-47.0); LYMPHOCYTES % (AUTO) 16.7 % (13-45); MEAN CORPUSCULAR HEMOGLOBIN 25.6 pg (27.0-33.4); MEAN CORPUSCULAR HGB CONC 32.3 g/dL (32.0-36.0); MEAN CORPUSCULAR VOLUME 79 fl (80-97); MONOCYTES % (AUTO) 6.3 % (3-13); PLATELET COUNT 412 10^3/uL (150-450); RED BLOOD COUNT 2.96 10^6/uL (3.72-5.28); SEGMENTED NEUTROPHILS % (AUTO) 67.7 % (42-78); TOTAL CELLS COUNTED % (AUTO) 100 %; WHITE BLOOD COUNT 14.9 10^3/uL (4.0-10.5)
[2018-04-15 05:33] LABS: HEMOGLOBIN 7.6 g/dL (12.0-15.5)
[2018-04-15 05:48] LABS: ALANINE AMINOTRANSFERASE 46 U/L (9-52); ALKALINE PHOSPHATASE 439 U/L (38-126); ANION GAP 14 (5-19); ASPARTATE AMINO TRANSFERASE 60 U/L (14-36); BILIRUBIN,DIRECT 0.5 mg/dL (0.0-0.4); BILIRUBIN,TOTAL 0.6 mg/dL (0.2-1.3); BLOOD UREA NITROGEN 57 mg/dL (7-20); CALCIUM 10.1 mg/dL (8.4-10.2); CARBON DIOXIDE 27 mmol/L (22-30); CHLORIDE 109 mmol/L (98-107); GLUCOSE 169 mg/dL (75-110); POTASSIUM 3.9 mmol/L (3.6-5.0); SODIUM 149.9 mmol/L (137-145)
[2018-04-15] MEDS: BUDESONIDE NEB 0.5 MG/2 ML AMPUL NEB SCH ×2 (07:25→20:58)
--- NOTE | 2018-04-15 08:24 | RADIOLOGY REPORT (SQ) ---
EXAM DESCRIPTION: CHEST SINGLE VIEW COMPLETED DATE/TIME: 04/15/2018 8:06 am REASON FOR STUDY: on ventilator COMPARISON: 04/14/2018. EXAM PARAMETERS: NUMBER OF VIEWS: One view. TECHNIQUE: Single frontal radiographic view of the chest acquired. RADIATION DOSE: NA LIMITATIONS: None. FINDINGS: LUNGS AND PLEURA: No improvement in bibasilar consolidation and effusions. MEDIASTINUM AND HILAR STRUCTURES: No masses. Contour normal. HEART AND VASCULAR STRUCTURES: Cardiomegaly. . BONES: No acute findings. HARDWARE tracheostomy tube in place. OTHER: No other significant finding. IMPRESSION: No significant change in bibasilar consolidation and effusions. TECHNICAL DOCUMENTATION: JOB ID: [id number] 2010 [employer]- All Rights Reserved Reading location - IP/workstation name: [email or web address]
[2018-04-15] MEDS: ASCORBIC ACID 500 MG TABLET PEG SCH (10:41)
[2018-04-15] MEDS: LACTOBACILLUS ACIDOPHILUS 250 MG TAB PEG SCH (10:42)
[2018-04-15] MEDS: ENOXAPARIN SODIUM INJ 40 MG/0.4 ML DISP.SYRIN SUBCUT SCH (10:42)
[2018-04-15] MEDS: AMLODIPINE BESYLATE 10 MG TABLET PEG SCH (10:42)
[2018-04-15] MEDS: MEMANTINE HCL 10 MG TABLET PEG SCH (10:42)
[2018-04-15] MEDS: FUROSEMIDE 40 MG TABLET PEG SCH (10:42)
[2018-04-15] MEDS: ASPIRIN 81 MG TABLET, CHEWABLE PEG SCH (10:42)
[2018-04-15] MEDS: MULTIVITAMINS W-IRON TABLET, CHEWABLE PEG SCH (10:44)
[2018-04-15] MEDS: INSULIN DETEMIR 100 UNIT/ML 3 ML PEN SUBCUT SCH (10:44)
--- NOTE | 2018-04-15 14:56 | PDOC PROGRESS REPORT ---
Subjective Progress Note for:: 04/15/18 Subjective:: Still awaiting bed availability at [facility] for further tracheostomy intervention in her care. I discussed case with Dr. Dewitt, community services manager, patient will benefit from larger size tracheostomy tube for future bronchoscopy and toileting. No reported fever. Tolerating enteral tube feeding. Reason For Visit: SEPSIS,PNEUMONIA Physical Exam Vital Signs: Temp Pulse Resp BP Pulse Ox 98.1 F 76 15 132/73 H 96 04/15/18 12:00 04/15/18 14:17 04/15/18 14:17 04/15/18 12:00 04/15/18 14:17 Intake & Output 04/14/18 04/15/18 04/16/18 06:59 06:59 06:59 Intake Total 3225 2651 Output Total 950 1075 225 Balance 2275 1576 -225 Weight 90.3 kg 91.4 kg General appearance: PRESENT: mild distress - remain vent supported Head exam: PRESENT: atraumatic, normocephalic Mouth exam: PRESENT: moist, tongue midline, other - right naso-labia region malignant lesion Respiratory exam: PRESENT: decreased breath sounds Cardiovascular exam: PRESENT: RRR, +S1, +S2. ABSENT: diastolic murmur, rubs, systolic murmur Vascular exam: PRESENT: normal capillary refill, pallor GI/Abdominal exam: PRESENT: normal bowel sounds, soft, other - PEG tube site dressing is satisfactory. ABSENT: distended, guarding, mass, organolmegaly, rebound, tenderness Rectal exam: PRESENT: deferred Extremities exam: PRESENT: right AKA, pedal edema Neurological exam: PRESENT: alert - and appropriate in gestures, awake Psychiatric exam: PRESENT: appropriate affect, normal mood. ABSENT: homicidal ideation, suicidal ideation Skin exam: PRESENT: dry, warm Results Laboratory Results: 04/15/18 05:01 04/15/18 05:01 04/15/18 04/15/18 05:01 05:01 WBC 14.9 H RBC 2.96 L Hgb 7.6 L Hct 23.5 L MCV 79 L MCH 25.6 L MCHC 32.3 RDW 20.0 H Plt Count 412 Seg Neutrophils % 67.7 Lymphocytes % 16.7 Monocytes % 6.3 Eosinophils % 8.3 H Basophils % 1.0 Absolute Neutrophils 10.1 H Absolute Lymphocytes 2.5 Absolute Monocytes 0.9 Absolute Eosinophils 1.2 H Absolute Basophils 0.2 Sodium 149.9 H Potassium 3.9 Chloride 109 H Carbon Dioxide 27 Anion Gap 14 BUN 57 H Creatinine 1.23 Est GFR ( Amer) 51 L Est GFR (Non-Af Amer) 42 L Glucose 169 H Calcium 10.1 Total Bilirubin 0.6 AST 60 H ALT 46 Alkaline Phosphatase 439 H Total Protein 7.0 Albumin 3.0 L 04/12/18 21:04 Sputum Gram Stain - Final 04/12/18 21:04 Sputum Sputum Culture - Final Pseudomonas Aeruginosa Normal Nan Absent Impressions: Thoracentesis Ultrasound 04/06/18 17:30 IMPRESSION: SUCCESSFUL THORACENTESIS USING ultrasound GUIDANCE. Chest X-Ray 04/15/18 05:00 IMPRESSION: No significant change in bibasilar consolidation and effusions. Assessment & Plan - Diagnosis (1) Acute and chronic respiratory failure, unspecified whether with hypoxia or hypercapnia Qualifiers: Respiratory failure complication: hypoxia Qualified Code(s): J96.21 - Acute and chronic respiratory failure with hypoxia Is this a current diagnosis for this admission?: Yes Plan: See covering attending physician orders. (2) Metabolic encephalopathy Is this a current diagnosis for this admission?: Yes Plan: See covering attending physician orders. (3) Pneumonia Qualifiers: Pneumonia type: due to unspecified organism Laterality: right Lung location: middle lobe of lung Qualified Code(s): J18.1 - Lobar pneumonia, unspecified organism Is this a current diagnosis for this admission?: Yes Plan: See covering attending physician orders. (4) Collapse of left lung Is this a current diagnosis for this admission?: Yes Plan: See covering attending physician orders. (5) Pleural effusion, left Is this a current diagnosis for this admission?: Yes Plan: See covering attending physician orders. (6) Urinary tract infection associated with indwelling urethral catheter Qualifiers: Encounter type: initial encounter Qualified Code(s): T83.511A - Infection and inflammatory reaction due to indwelling urethral catheter, initial encounter ; N39.0 - Urinary tract infection, site not specified; N39.0 - Urinary tract infection, site not specified Is this a current diagnosis for this admission?: Yes Plan: See covering attending physician orders. (7) Basal cell carcinoma (BCC) of ala nasi Is this a current diagnosis for this admission?: Yes Plan: See covering attending physician orders. - Time Time Spent with patient: 25-34 minutes Medications reviewed and adjusted accordingly: Yes Anticipated discharge: Tertiary Hospital Within: Other - Inpatient Certification Based on my medical assessment, after consideration of the patient's comorbidities, presenting symptoms, or acuity I expect that the services needed warrant INPATIENT care.: Yes I certify that my determination is in accordance with my understanding of Medicare's requirements for reasonable and necessary INPATIENT services [42 CFR 412.3e].: Yes Medical Necessity: Need Close Monitoring Due to Risk of Patient Decompensation, Need For IV Fluids, Need For Continuous Telemetry Monitoring, Need for Nebulizer Therapy and Monitoring of Response, Need for IV Antibiotics, Risk of Complication if Not Cared For in Hospital Post Hospital Care: D/C or Transfer Summary - awaiting transfer to [facility] - Plan Summary Plan Summary: See covering attending physician orders.
--- NOTE | 2018-04-15 15:24 | RADIOLOGY REPORT (SQ) ---
EXAM DESCRIPTION: U/S CHEST COMPLETED DATE/TIME: 04/15/2018 12:33 pm REASON FOR STUDY: to quantify pleural effusion COMPARISON: None. TECHNIQUE: Limited sonographic images of the right and left chest to evaluate pleural effusion. LIMITATIONS: None. FINDINGS: Moderate right and left pleural effusions. IMPRESSION: MODERATE BILATERAL PLEURAL EFFUSIONS. TECHNICAL DOCUMENTATION: JOB ID: [id number] [employer]- All Rights Reserved Reading location - IP/workstation name: [email or web address]
[2018-04-15] MEDS ORDERED: NORMAL SALINE 250 ML IV PRN (20:53)
[2018-04-15] MEDS: ACETYLCYSTEINE 20% SOLN 800 MG/4 ML VIAL.NEB NEB SCH (20:57)
[2018-04-15] MEDS: VANCOMYCIN HCL 1,250 MG in DEXTROSE 5%-WATER 250 ML IV SCH (21:19)
[2018-04-15 22:27] LABS: VANCOMYCIN,TROUGH 28.2 ug/mL (5.0-20.0)
[2018-04-16] MEDS: PIPERACILLIN SODIUM/TAZOBACTAM 3.375 GM in NORMAL SALINE 100 ML IV SCH ×4 (00:13→21:20)
[2018-04-16] MEDS: IPRATROPIUM/ALBUTEROL 0.5-2.5 MG/3 ML AMPUL NEB SCH ×4 (02:55→20:48)
[2018-04-16] MEDS: INSULIN LISPRO 100 UNIT/ML 3 ML VIAL SUBCUT PRN ×3 (06:06→17:48)
[2018-04-16] MEDS: ACETYLCYSTEINE 20% SOLN 800 MG/4 ML VIAL.NEB NEB SCH (07:30)
[2018-04-16] MEDS: BUDESONIDE NEB 0.5 MG/2 ML AMPUL NEB SCH ×2 (07:30→20:48)
--- NOTE | 2018-04-16 08:51 | RADIOLOGY REPORT (SQ) ---
EXAM DESCRIPTION: CHEST SINGLE VIEW COMPLETED DATE/TIME: 04/16/2018 8:08 am REASON FOR STUDY: on ventilator COMPARISON: 04/15/2018. EXAM PARAMETERS: NUMBER OF VIEWS: One view. TECHNIQUE: Single frontal radiographic view of the chest acquired. RADIATION DOSE: NA LIMITATIONS: None. FINDINGS: LUNGS AND PLEURA: There are bilateral pulmonary alveolar infiltrates and effusions. MEDIASTINUM AND HILAR STRUCTURES: No masses. Contour normal. HEART AND VASCULAR STRUCTURES: Cardiomegaly. Aortic atherosclerosis. BONES: No acute findings. HARDWARE: None in the chest. OTHER: Tracheostomy tube in place. IMPRESSION: No significant change. TECHNICAL DOCUMENTATION: JOB ID: [id number] 2010 [employer]- All Rights Reserved Reading location - IP/workstation name: [email or web address]
[2018-04-16] MEDS ORDERED: FUROSEMIDE INJ/PF 40 MG/4 ML SDV IV ONE (09:30)
[2018-04-16 09:42] LABS: ABSOLUTE BASOPHILS # (AUTO) 0.1 10^3/uL (0.0-0.2); ABSOLUTE EOSINOPHILS # (AUTO) 1.4 10^3/uL (0.0-0.6); ABSOLUTE LYMPHOCYTES (AUTO) 2.5 10^3/uL (0.5-4.7); ABSOLUTE NEUT (AUTO) 10.9 10^3/uL (1.7-8.2); BASOPHILS % (AUTO) 0.6 % (0-2); EOSINOPHILS % (AUTO) 8.9 % (0-6); HEMATOCRIT 28.4 % (36.0-47.0); LYMPHOCYTES % (AUTO) 15.9 % (13-45); MEAN CORPUSCULAR HEMOGLOBIN 25.4 pg (27.0-33.4); MEAN CORPUSCULAR HGB CONC 31.8 g/dL (32.0-36.0); MEAN CORPUSCULAR VOLUME 80 fl (80-97); MONOCYTES % (AUTO) 6.3 % (3-13); PLATELET COUNT 436 10^3/uL (150-450); RED BLOOD COUNT 3.56 10^6/uL (3.72-5.28); RED CELL DISTRIBUTION WIDTH 19.7 % (11.5-14.0); SEGMENTED NEUTROPHILS % (AUTO) 68.3 % (42-78); TOTAL CELLS COUNTED % (AUTO) 100 %; WHITE BLOOD COUNT 15.9 10^3/uL (4.0-10.5)
[2018-04-16 10:01] LABS: ALANINE AMINOTRANSFERASE 65 U/L (9-52); ALBUMIN 3.4 g/dL (3.5-5.0); ALKALINE PHOSPHATASE 574 U/L (38-126); ANION GAP 17 (5-19); ASPARTATE AMINO TRANSFERASE 87 U/L (14-36); BILIRUBIN,DIRECT 0.6 mg/dL (0.0-0.4); BILIRUBIN,TOTAL 0.8 mg/dL (0.2-1.3); BLOOD UREA NITROGEN 58 mg/dL (7-20); CALCIUM 10.1 mg/dL (8.4-10.2); CARBON DIOXIDE 26 mmol/L (22-30); CHLORIDE 107 mmol/L (98-107); GLUCOSE 177 mg/dL (75-110); POTASSIUM 4.4 mmol/L (3.6-5.0); SODIUM 149.7 mmol/L (137-145); TOTAL PROTEIN 7.7 g/dL (6.3-8.2)
[2018-04-16] MEDS: ASPIRIN 81 MG TABLET, CHEWABLE PEG SCH (10:50)
[2018-04-16] MEDS: ENOXAPARIN SODIUM INJ 40 MG/0.4 ML DISP.SYRIN SUBCUT SCH (10:50)
[2018-04-16] MEDS: ASCORBIC ACID 500 MG TABLET PEG SCH (10:51)
[2018-04-16] MEDS: AMLODIPINE BESYLATE 10 MG TABLET PEG SCH (10:51)
[2018-04-16] MEDS: MULTIVITAMINS W-IRON TABLET, CHEWABLE PEG SCH (10:52)
[2018-04-16] MEDS: INSULIN DETEMIR 100 UNIT/ML 3 ML PEN SUBCUT SCH (10:52)
[2018-04-16] MEDS: MEMANTINE HCL 10 MG TABLET PEG SCH (10:54)
[2018-04-16] MEDS: LACTOBACILLUS ACIDOPHILUS 250 MG TAB PEG SCH (10:54)
[2018-04-16] MEDS: FUROSEMIDE 40 MG TABLET PEG SCH (13:51)
--- NOTE | 2018-04-16 17:27 | PDOC PROGRESS REPORT ---
Subjective Progress Note for:: 04/16/18 Subjective:: No reported fever. Tolerating enteral tube feeding. No chest pain. Daughter at bedside and I discussed issue of bed allocation at [facility] and possible thoracentesis as arranged by pumonologist. Reason For Visit: SEPSIS,PNEUMONIA Physical Exam Vital Signs: Temp Pulse Resp BP Pulse Ox 98.2 F 89 14 144/79 H 99 04/16/18 15:24 04/16/18 15:24 04/16/18 15:24 04/16/18 15:24 04/16/18 15:24 Intake & Output 04/15/18 04/16/18 04/17/18 06:59 06:59 06:59 Intake Total 2651 2044 Output Total 1075 1125 350 Balance 1576 919 -350 Weight 91.4 kg 91.7 kg Physical Exam: General appearance: PRESENT: mild distress - remain vent supported Head exam: PRESENT: atraumatic, normocephalic Mouth exam: PRESENT: moist, tongue midline, other - right naso-labia region malignant lesion Respiratory exam: PRESENT: decreased breath sounds at lung bases Cardiovascular exam: PRESENT: RRR, +S1, +S2. ABSENT: diastolic murmur, rubs, systolic murmur Vascular exam: PRESENT: normal capillary refill, pallor GI/Abdominal exam: PRESENT: normal bowel sounds, soft, other - PEG tube site dressing is satisfactory. ABSENT: distended, guarding, mass, organomegaly, rebound, tenderness Rectal exam: PRESENT: deferred Extremities exam: PRESENT: right AKA, pedal edema Neurological exam: PRESENT: alert - and appropriate in gestures, awake Psychiatric exam: PRESENT: appropriate affect, normal mood. ABSENT: homicidal ideation, suicidal ideation Skin exam: PRESENT: dry, warm Results Laboratory Results: 04/16/18 08:07 04/16/18 08:07 04/15/18 04/16/18 04/16/18 21:11 08:07 08:07 WBC 15.9 H RBC 3.56 L Hgb 9.0 L Hct 28.4 L MCV 80 MCH 25.4 L MCHC 31.8 L RDW 19.7 H Plt Count 436 Seg Neutrophils % 68.3 Lymphocytes % 15.9 Monocytes % 6.3 Eosinophils % 8.9 H Basophils % 0.6 Absolute Neutrophils 10.9 H Absolute Lymphocytes 2.5 Absolute Monocytes 1.0 Absolute Eosinophils 1.4 H Absolute Basophils 0.1 Sodium 149.7 H Potassium 4.4 Chloride 107 Carbon Dioxide 26 Anion Gap 17 BUN 58 H Creatinine 1.20 Est GFR ( Amer) 52 L Est GFR (Non-Af Amer) 43 L Glucose 177 H Calcium 10.1 Total Bilirubin 0.8 AST 87 H ALT 65 H Alkaline Phosphatase 574 H Total Protein 7.7 Albumin 3.4 L Blood Type A POSITIVE Antibody Screen NEGATIVE Impressions: Thoracentesis Ultrasound 04/06/18 17:30 IMPRESSION: SUCCESSFUL THORACENTESIS USING ultrasound GUIDANCE. Chest Ultrasound 04/15/18 10:00 IMPRESSION: MODERATE BILATERAL PLEURAL EFFUSIONS. Chest X-Ray 04/16/18 05:00 IMPRESSION: No significant change. Assessment & Plan - Diagnosis (1) Acute and chronic respiratory failure, unspecified whether with hypoxia or hypercapnia Qualifiers: Respiratory failure complication: hypoxia Qualified Code(s): J96.21 - Acute and chronic respiratory failure with hypoxia Is this a current diagnosis for this admission?: Yes (2) Metabolic encephalopathy Is this a current diagnosis for this admission?: Yes (3) Pneumonia Qualifiers: Pneumonia type: due to unspecified organism Laterality: right Lung location: middle lobe of lung Qualified Code(s): J18.1 - Lobar pneumonia, unspecified organism Is this a current diagnosis for this admission?: Yes (4) Collapse of left lung Is this a current diagnosis for this admission?: Yes (5) Pleural effusion, left Is this a current diagnosis for this admission?: Yes (6) Urinary tract infection associated with indwelling urethral catheter Qualifiers: Encounter type: initial encounter Qualified Code(s): T83.511A - Infection and inflammatory reaction due to indwelling urethral catheter, initial encounter ; N39.0 - Urinary tract infection, site not specified; N39.0 - Urinary tract infection, site not specified Is this a current diagnosis for this admission?: Yes (7) Basal cell carcinoma (BCC) of ala nasi Is this a current diagnosis for this admission?: Yes - Time Time Spent with patient: 25-34 minutes Medications reviewed and adjusted accordingly: Yes Anticipated discharge: SNF Within: Other - Inpatient Certification Based on my medical assessment, after consideration of the patient's comorbidities, presenting symptoms, or acuity I expect that the services needed warrant INPATIENT care.: Yes I certify that my determination is in accordance with my understanding of Medicare's requirements for reasonable and necessary INPATIENT services [42 CFR 412.3e].: Yes Medical Necessity: Need Close Monitoring Due to Risk of Patient Decompensation, Need For IV Fluids, Need For Continuous Telemetry Monitoring, Need for Nebulizer Therapy and Monitoring of Response, Need for IV Antibiotics, Risk of Complication if Not Cared For in Hospital Post Hospital Care: D/C or Transfer Summary - Plan Summary Plan Summary: See covering attending physician orders.
[2018-04-16] MEDS: VANCOMYCIN HCL 750 MG in DEXTROSE 5%-WATER 250 ML IV SCH (22:40)
[2018-04-17] MEDS: IPRATROPIUM/ALBUTEROL 0.5-2.5 MG/3 ML AMPUL NEB SCH ×4 (01:49→19:55)
[2018-04-17 05:06] LABS: ABSOLUTE BASOPHILS # (AUTO) 0.1 10^3/uL (0.0-0.2); ABSOLUTE EOSINOPHILS # (AUTO) 1.2 10^3/uL (0.0-0.6); ABSOLUTE MONOCYTES (AUTO) 0.9 10^3/uL (0.1-1.4); ABSOLUTE NEUT (AUTO) 7.4 10^3/uL (1.7-8.2); BASOPHILS % (AUTO) 0.6 % (0-2); EOSINOPHILS % (AUTO) 9.7 % (0-6); HEMATOCRIT 25.5 % (36.0-47.0); HEMOGLOBIN 8.3 g/dL (12.0-15.5); LYMPHOCYTES % (AUTO) 23.7 % (13-45); MEAN CORPUSCULAR HEMOGLOBIN 25.8 pg (27.0-33.4); MEAN CORPUSCULAR HGB CONC 32.5 g/dL (32.0-36.0); MEAN CORPUSCULAR VOLUME 79 fl (80-97); MONOCYTES % (AUTO) 7.4 % (3-13); PLATELET COUNT 410 10^3/uL (150-450); RED BLOOD COUNT 3.21 10^6/uL (3.72-5.28); RED CELL DISTRIBUTION WIDTH 19.8 % (11.5-14.0); SEGMENTED NEUTROPHILS % (AUTO) 58.6 % (42-78); TOTAL CELLS COUNTED % (AUTO) 100 %; WHITE BLOOD COUNT 12.6 10^3/uL (4.0-10.5)
[2018-04-17 05:12] LABS: INTERNATIONAL RATION (INR) 1.28; PROTHROMBIN TIME 16.6 SEC (11.4-15.4)
[2018-04-17 05:13] LABS: PARTIAL THROMBOPLASTIN TIME 31.4 SEC (23.5-35.8)
[2018-04-17 05:32] LABS: ALANINE AMINOTRANSFERASE 55 U/L (9-52); ALKALINE PHOSPHATASE 502 U/L (38-126); ANION GAP 16 (5-19); ASPARTATE AMINO TRANSFERASE 64 U/L (14-36); BILIRUBIN,DIRECT 0.5 mg/dL (0.0-0.4); BILIRUBIN,TOTAL 0.5 mg/dL (0.2-1.3); BLOOD UREA NITROGEN 57 mg/dL (7-20); CALCIUM 9.8 mg/dL (8.4-10.2); CARBON DIOXIDE 25 mmol/L (22-30); CHLORIDE 107 mmol/L (98-107); GLUCOSE 139 mg/dL (75-110); POTASSIUM 4.3 mmol/L (3.6-5.0); SODIUM 147.9 mmol/L (137-145); TOTAL PROTEIN 6.8 g/dL (6.3-8.2)
[2018-04-17] MEDS: LEVOFLOXACIN 750 MG/D5W RTU 750 MG/150 ML RTUPB IV SCH (05:34)
[2018-04-17] MEDS: PIPERACILLIN SODIUM/TAZOBACTAM 3.375 GM in NORMAL SALINE 100 ML IV SCH ×3 (05:35→21:24)
[2018-04-17] MEDS: INSULIN LISPRO 100 UNIT/ML 3 ML VIAL SUBCUT PRN ×2 (06:21→19:05)
[2018-04-17] MEDS: BUDESONIDE NEB 0.5 MG/2 ML AMPUL NEB SCH ×2 (08:32→19:55)
--- NOTE | 2018-04-17 10:35 | PROGRESS NOTE E ---
Progress Note NAME: BRIANA BRADY : 1935 AGE: 82Y DATE: 04/14/2018 ROOM: 301 SUBJECTIVE: This is an 82-year-old female who came in with acute on chronic respiratory failure and multilobar pneumonia. Consulted 2 days ago because of whitening of the entire left lung, which could be due to mucus plug or worsening pneumonia. Consulted Surgery service and they recommended transfer to a tertiary center for possible tracheostomy change to a size 8 to enable to do flexible bronchoscopy and removal of the mucus plug, suction secretions, examine the airway to allow the left lung to reexpand. The patient was given additional antibiotics--IV Zosyn and IV vancomycin in addition to Levaquin 750 mg. Mucomyst was also discontinued. The patient was awaiting transfer to [facility]. Chest x-ray was done this morning, showing increased aeration involving the left lung. Persistence of bibasilar infiltrates, pleural effusion and pneumonia[place] [address] [place] [address]. The patient appeared to be feeling better. OBJECTIVE: GENERAL: The patient is awake and alert and oriented. VITAL SIGNS: Afebrile with temperature 98.8, T-max 98.8. Pulse rate 70, blood pressure 139/65, respirations 12, saturation 100% on mechanical ventilation. EYES: No jaundice or pallor. EARS, NOSE, THROAT: No ear drainage or nasal discharge. CHEST/LUNGS: Fine rales bibasilar. No wheezing noted. EXTREMITIES: No edema. LABORATORY: CBC done today showed white count of 13.8, hemoglobin 7.7, hematocrit 33.4, platelet count 409. Chemistry done today shows sodium 150, potassium 4.2, chloride 110, CO2 of 26, BUN 25, creatinine 1.2. Glucose 126. Calcium 10.3. Direct bilirubin 0.6. SGOT 56, SGPT 45. Chest x-ray done today showed increased aeration involving the left lung. The lung appeared to be reexpanded. ASSESSMENT: 1. ACUTE ON CHRONIC RESPIRATORY FAILURE. 2. PNEUMONIA BILATERAL BIBASILAR. 3. PLEURAL EFFUSION. Probably mild to moderate. PLAN: 1. Will do a chest x-ray tomorrow morning. 2. Continue intravenous Levaquin, intravenous Zosyn, and intravenous vancomycin. 3. Continue nebulizer treatments. 4. Continue diuretics. 5. Continue deep venous thrombosis prophylaxis and gastrointestinal prophylaxis. DICTATING PHYSICIAN: JOCELYN MIRANDA MD,PURNIMA,MPH [id number] PHY#: [id number] ID: [id number] JOB#: [id number] ACCT: [id number] cc: > MTDD
[2018-04-17] MEDS: AMLODIPINE BESYLATE 10 MG TABLET PEG SCH (11:30)
[2018-04-17] MEDS: FUROSEMIDE 40 MG TABLET PEG SCH (11:30)
[2018-04-17] MEDS: LACTOBACILLUS ACIDOPHILUS 250 MG TAB PEG SCH (11:30)
[2018-04-17] MEDS: ASPIRIN 81 MG TABLET, CHEWABLE PEG SCH (11:31)
[2018-04-17] MEDS: MULTIVITAMINS W-IRON TABLET, CHEWABLE PEG SCH (11:31)
[2018-04-17] MEDS: MEMANTINE HCL 10 MG TABLET PEG SCH (11:31)
[2018-04-17] MEDS: ASCORBIC ACID 500 MG TABLET PEG SCH (11:31)
[2018-04-17] MEDS: INSULIN DETEMIR 100 UNIT/ML 3 ML PEN SUBCUT SCH (11:33)
--- NOTE | 2018-04-17 13:24 | PROGRESS NOTE E ---
Progress Note NAME: BRIANA BRADY : 1935 AGE: 82Y DATE: 04/16/2018 ROOM: 301 SUBJECTIVE: The patient is an 82-year-old female who came in with acute on chronic respiratory failure because of worsening pneumonia and the opacification or lei out of the left lung. The patient was scheduled for transfer to [facility] for changing the tracheostomy tube to size 8 from size 6 for possible bronchoscopy and removal of mucus plug, suctioning of secretions. However, a chest x-ray subsequently appeared to improve with aeration of the left lung but there is still an increase of infiltrates bibasally to mid lung. The patient has no fever spikes, no vomiting. Still waiting for the [facility] to accept the patient and transfer the patient. Discussed tracheostomy tube change with family. Family members decided and opted to change the tracheostomy tube to size 8 due to that may require bronchoscopy. Over yesterday, hemoglobin went down to 7.6. Patient received a blood transfusion last night, 1 unit of packed RBCs, given Lasix 40 units IV thereafter. Pleural effusion seems to be worsening of both lungs, more on the right side. Chest ultrasound done today showed moderate pleural effusion. Chest ultrasound done yesterday showed mild to moderate perforation, more on the right side. OBJECTIVE: GENERAL: Patient is awake, afebrile, not in apparent respiratory distress. VITAL SIGNS: Temperature 97.9 with a T-max of 98.9, blood pressure 146/70, heart rate 83, respirations 13, saturation 99% on 45% fio2, rate of 12, tidal volume of 450, PEEP of 5, and pressure support of 12, peak airway pressure of 18. EYES: No jaundice or pallor. EARS, NOSE AND THROAT: No ear drainage noted. No nasal discharge. NECK: Tracheostomy tube is in place. CHEST AND LUNGS: No wheezing. No rhonchi. No coarse crackles. CARDIOVASCULAR: S1, S2 distinct. Normal rate, regular rhythm. ABDOMEN: Flabby. Positive bowel sounds. Soft, nondistended, nontender. EXTREMITIES: No joint swelling. No cellulitis. LABORATORY DATA: CBC done today showed a white count of 15.9; hemoglobin is 9; hematocrit is 28.4; and platelet count is 436. Chemistry done today showed sodium is 149, potassium is 4.4, chloride 107, CO2 is 26, BUN 58, creatinine is 1.2, total protein 7.7, albumin is 3.4, SGOT is 87, SGPT is 55. IMAGING DATA: A chest x-ray done today showed increasing pleural effusion of right lung. ASSESSMENT: 1. ACUTE ON CHRONIC RESPIRATORY FAILURE REQUIRING INVASIVE MECHANICAL VENTILATION. 2. PNEUMONIA BILATERALLY. 3. PLEURAL EFFUSION BILATERALLY, MORE ON THE RIGHT SIDE. 4. HISTORY OF CONGESTIVE HEART FAILURE AND PULMONARY EDEMA. PLAN AND RECOMMENDATIONS: 1. Continue IV antibiotics IV Zosyn, and IV vancomycin. 2. We will schedule the patient for a possible ultrasound-guided thoracentesis, right side, tomorrow, with interventional radiology for pleural fluid analysis. 3. We will continue the same ventilator settings. 4. We will stop Lovenox today until after the paracentesis tomorrow. DICTATING PHYSICIAN: JOCELYN MIRANDA MD,PURNIMA,MPH [id number] [id number] PHY#: [id number] ID: [id number] JOB#: [id number] ACCT: [id number] cc: > MTDD
[2018-04-17] MEDS: DEXTROSE 5%-WATER 1000 ML 1,000 ML IV PRN (17:42)
--- NOTE | 2018-04-17 21:45 | PDOC PROGRESS REPORT ---
Subjective Progress Note for:: 04/17/18 Subjective:: Patient was supposed to be transferred to [facility], no bed is available yet, she is awake alert Reason For Visit: SEPSIS,PNEUMONIA Physical Exam Vital Signs: Temp Pulse Resp BP Pulse Ox 97.6 F 52 L 16 137/58 H 96 04/17/18 19:53 04/17/18 19:55 04/17/18 19:55 04/17/18 19:53 04/17/18 19:55 Intake & Output 04/16/18 04/17/18 04/18/18 06:59 06:59 06:59 Intake Total 2044 2228 1381 Output Total 1125 1425 400 Balance 919 803 981 Weight 91.7 kg 92.9 kg General appearance: PRESENT: no acute distress Eye exam: PRESENT: PERRLA Respiratory exam: PRESENT: clear to auscultation monica Cardiovascular exam: PRESENT: +S1, +S2 GI/Abdominal exam: PRESENT: soft Neurological exam: PRESENT: alert Results Laboratory Results: 04/17/18 04:24 04/17/18 04:24 04/17/18 04/17/18 04/17/18 04:24 04:24 04:24 WBC 12.6 H RBC 3.21 L Hgb 8.3 L Hct 25.5 L MCV 79 L MCH 25.8 L MCHC 32.5 RDW 19.8 H Plt Count 410 Seg Neutrophils % 58.6 Lymphocytes % 23.7 Monocytes % 7.4 Eosinophils % 9.7 H Basophils % 0.6 Absolute Neutrophils 7.4 Absolute Lymphocytes 3.0 Absolute Monocytes 0.9 Absolute Eosinophils 1.2 H Absolute Basophils 0.1 Sodium 147.9 H Potassium 4.3 Chloride 107 Carbon Dioxide 25 Anion Gap 16 BUN 57 H Creatinine 1.21 Est GFR ( Amer) 52 L Est GFR (Non-Af Amer) 43 L Glucose 139 H Calcium 9.8 Total Bilirubin 0.5 AST 64 H ALT 55 H Alkaline Phosphatase 502 H Total Protein 6.8 6.5 Albumin 3.0 L Impressions: Thoracentesis Ultrasound 04/06/18 17:30 IMPRESSION: SUCCESSFUL THORACENTESIS USING ultrasound GUIDANCE. Chest Ultrasound 04/15/18 10:00 IMPRESSION: MODERATE BILATERAL PLEURAL EFFUSIONS. Assessment & Plan - Diagnosis (1) Acute hypoxemic respiratory failure Is this a current diagnosis for this admission?: Yes (2) Pneumonia Qualifiers: Pneumonia type: due to unspecified organism Laterality: bilateral Lung location: unspecified part of lung Qualified Code(s): J18.9 - Pneumonia, unspecified organism Is this a current diagnosis for this admission?: Yes (3) Basal cell carcinoma (BCC) of ala nasi Is this a current diagnosis for this admission?: Yes (4) Metabolic encephalopathy Is this a current diagnosis for this admission?: Yes (5) Urinary tract infection associated with indwelling urethral catheter Qualifiers: Encounter type: initial encounter Qualified Code(s): T83.511A - Infection and inflammatory reaction due to indwelling urethral catheter, initial encounter ; N39.0 - Urinary tract infection, site not specified; N39.0 - Urinary tract infection, site not specified Is this a current diagnosis for this admission?: Yes (6) Pleural effusion Is this a current diagnosis for this admission?: Yes (7) Sepsis Qualifiers: Sepsis type: sepsis due to unspecified organism Qualified Code(s): A41.9 - Sepsis, unspecified organism Is this a current diagnosis for this admission?: Yes (8) Collapse of left lung Is this a current diagnosis for this admission?: Yes
[2018-04-17] MEDS: VANCOMYCIN HCL 750 MG in DEXTROSE 5%-WATER 250 ML IV SCH (22:10)
[2018-04-18] MEDS: INSULIN LISPRO 100 UNIT/ML 3 ML VIAL SUBCUT PRN ×3 (00:22→17:40)
[2018-04-18] MEDS: IPRATROPIUM/ALBUTEROL 0.5-2.5 MG/3 ML AMPUL NEB SCH ×4 (01:59→19:53)
[2018-04-18] MEDS: PIPERACILLIN SODIUM/TAZOBACTAM 3.375 GM in NORMAL SALINE 100 ML IV SCH ×3 (05:12→21:19)
[2018-04-18] MEDS: BUDESONIDE NEB 0.5 MG/2 ML AMPUL NEB SCH ×2 (07:51→19:53)
[2018-04-18 08:07] LABS: ABSOLUTE BASOPHILS # (AUTO) 0.1 10^3/uL (0.0-0.2); ABSOLUTE EOSINOPHILS # (AUTO) 1.4 10^3/uL (0.0-0.6); ABSOLUTE LYMPHOCYTES (AUTO) 2.3 10^3/uL (0.5-4.7); ABSOLUTE MONOCYTES (AUTO) 0.9 10^3/uL (0.1-1.4); ABSOLUTE NEUT (AUTO) 7.1 10^3/uL (1.7-8.2); BASOPHILS % (AUTO) 0.9 % (0-2); EOSINOPHILS % (AUTO) 11.8 % (0-6); HEMATOCRIT 27.7 % (36.0-47.0); HEMOGLOBIN 8.9 g/dL (12.0-15.5); LYMPHOCYTES % (AUTO) 19.2 % (13-45); MEAN CORPUSCULAR HEMOGLOBIN 25.7 pg (27.0-33.4); MEAN CORPUSCULAR HGB CONC 32.3 g/dL (32.0-36.0); MEAN CORPUSCULAR VOLUME 79 fl (80-97); MONOCYTES % (AUTO) 7.4 % (3-13); PLATELET COUNT 467 10^3/uL (150-450); RED BLOOD COUNT 3.49 10^6/uL (3.72-5.28); SEGMENTED NEUTROPHILS % (AUTO) 60.7 % (42-78); TOTAL CELLS COUNTED % (AUTO) 100 %; WHITE BLOOD COUNT 11.7 10^3/uL (4.0-10.5)
[2018-04-18 08:28] LABS: ALANINE AMINOTRANSFERASE 53 U/L (9-52); ALBUMIN 3.2 g/dL (3.5-5.0); ALKALINE PHOSPHATASE 485 U/L (38-126); ANION GAP 12 (5-19); ASPARTATE AMINO TRANSFERASE 56 U/L (14-36); BILIRUBIN,DIRECT 0.4 mg/dL (0.0-0.4); BILIRUBIN,TOTAL 0.5 mg/dL (0.2-1.3); BLOOD UREA NITROGEN 57 mg/dL (7-20); CALCIUM 9.9 mg/dL (8.4-10.2); CARBON DIOXIDE 27 mmol/L (22-30); CHLORIDE 107 mmol/L (98-107); GLUCOSE 138 mg/dL (75-110); POTASSIUM 4.4 mmol/L (3.6-5.0); SODIUM 145.5 mmol/L (137-145); TOTAL PROTEIN 7.1 g/dL (6.3-8.2)
[2018-04-18] MEDS: LACTOBACILLUS ACIDOPHILUS 250 MG TAB PEG SCH (09:28)
[2018-04-18] MEDS: MEMANTINE HCL 10 MG TABLET PEG SCH (09:29)
[2018-04-18] MEDS: ASCORBIC ACID 500 MG TABLET PEG SCH (09:29)
[2018-04-18] MEDS: MULTIVITAMINS W-IRON TABLET, CHEWABLE PEG SCH (09:29)
[2018-04-18] MEDS: ASPIRIN 81 MG TABLET, CHEWABLE PEG SCH (09:30)
[2018-04-18] MEDS: AMLODIPINE BESYLATE 10 MG TABLET PEG SCH (09:31)
[2018-04-18] MEDS: FUROSEMIDE 40 MG TABLET PEG SCH (09:31)
--- NOTE | 2018-04-18 09:31 | RADIOLOGY REPORT (SQ) ---
EXAM DESCRIPTION: CHEST SINGLE VIEW COMPLETED DATE/TIME: 04/17/2018 8:13 am REASON FOR STUDY: on ventilator COMPARISON: 04/16/2018 NUMBER OF VIEWS: One view. TECHNIQUE: Single frontal radiographic image of the chest acquired. LIMITATIONS: None. FINDINGS: LUNGS AND PLEURA: Bilateral pleural effusions and associated basilar airspace disease. Al lowing for differences in technique this is not significantly changed. No pneumothorax. MEDIASTINUM AND HILAR STRUCTURES: Stable heart size and mediastinal structures. HEART AND VASCULAR STRUCTURES: Stable appearance. SUPPORT DEVICES: Appropriate location without change. BONES: No acute findings. OTHER: No other significant finding. IMPRESSION: Edema or pneumonia. No significant change. TECHNICAL DOCUMENTATION: JOB ID: [id number] [employer]- All Rights Reserved Reading location - IP/workstation name: [email or web address]
[2018-04-18] MEDS: INSULIN DETEMIR 100 UNIT/ML 3 ML PEN SUBCUT SCH (09:32)
[2018-04-18] MEDS ORDERED: LIDOCAINE 1% INJ-PF (10 MG/ML) 30 ML SDV ONE (14:43)
--- NOTE | 2018-04-18 15:33 | RADIOLOGY REPORT (SQ) ---
EXAM DESCRIPTION: U/S CHEST COMPLETED DATE/TIME: 04/18/2018 3:12 pm REASON FOR STUDY: moderate pleural effusion,right COMPARISON: None. TECHNIQUE: Ultrasound of the right pleural space in preparation for possible thoracentesis. LIMITATIONS: None. FINDINGS: Inadequate pleural fluid for safe thoracentesis. IMPRESSION: Inadequate pleural fluid for safe thoracentesis. TECHNICAL DOCUMENTATION: JOB ID: [id number] [email or web address]- All Rights Reserved Reading location - IP/workstation name: [email or web address]
--- NOTE | 2018-04-18 21:06 | PDOC PROGRESS REPORT ---
Subjective Progress Note for:: 04/18/18 Subjective:: Patient was supposed to be transferred to [facility], no bed is available yet, she is awake alert Reason For Visit: SEPSIS,PNEUMONIA Physical Exam Vital Signs: Temp Pulse Resp BP Pulse Ox 98.8 F 73 11 L 138/51 H 95 04/18/18 19:50 04/18/18 19:53 04/18/18 19:53 04/18/18 19:50 04/18/18 19:53 Intake & Output 04/17/18 04/18/18 04/19/18 06:59 06:59 06:59 Intake Total 2228 2733 1462 Output Total 1425 1250 650 Balance 803 1483 812 Weight 92.9 kg 93.7 kg General appearance: PRESENT: no acute distress Eye exam: PRESENT: PERRLA Respiratory exam: PRESENT: clear to auscultation monica Cardiovascular exam: PRESENT: +S1, +S2 GI/Abdominal exam: PRESENT: soft Neurological exam: PRESENT: alert Results Laboratory Results: 04/18/18 07:29 04/18/18 07:29 04/18/18 04/18/18 07:29 07:29 WBC 11.7 H RBC 3.49 L Hgb 8.9 L Hct 27.7 L MCV 79 L MCH 25.7 L MCHC 32.3 RDW 20.0 H Plt Count 467 H Seg Neutrophils % 60.7 Lymphocytes % 19.2 Monocytes % 7.4 Eosinophils % 11.8 H Basophils % 0.9 Absolute Neutrophils 7.1 Absolute Lymphocytes 2.3 Absolute Monocytes 0.9 Absolute Eosinophils 1.4 H Absolute Basophils 0.1 Sodium 145.5 H Potassium 4.4 Chloride 107 Carbon Dioxide 27 Anion Gap 12 BUN 57 H Creatinine 1.25 Est GFR ( Amer) 50 L Est GFR (Non-Af Amer) 41 L Glucose 138 H Calcium 9.9 Total Bilirubin 0.5 AST 56 H ALT 53 H Alkaline Phosphatase 485 H Total Protein 7.1 Albumin 3.2 L 04/12/18 21:50 Blood Blood Culture - Final NO GROWTH IN 5 DAYS 04/12/18 21:30 Blood Blood Culture - Final NO GROWTH IN 5 DAYS Impressions: Thoracentesis Ultrasound 04/06/18 17:30 IMPRESSION: SUCCESSFUL THORACENTESIS USING ultrasound GUIDANCE. Chest X-Ray 04/17/18 06:00 IMPRESSION: Edema or pneumonia. No significant change. Chest Ultrasound 04/18/18 14:00 IMPRESSION: Inadequate pleural fluid for safe thoracentesis. Assessment & Plan - Diagnosis (1) Acute hypoxemic respiratory failure Is this a current diagnosis for this admission?: Yes (2) Pneumonia Qualifiers: Pneumonia type: due to unspecified organism Laterality: bilateral Lung location: unspecified part of lung Qualified Code(s): J18.9 - Pneumonia, unspecified organism Is this a current diagnosis for this admission?: Yes (3) Basal cell carcinoma (BCC) of ala nasi Is this a current diagnosis for this admission?: Yes (4) Metabolic encephalopathy Is this a current diagnosis for this admission?: Yes (5) Urinary tract infection associated with indwelling urethral catheter Qualifiers: Encounter type: initial encounter Qualified Code(s): T83.511A - Infection and inflammatory reaction due to indwelling urethral catheter, initial encounter ; N39.0 - Urinary tract infection, site not specified; N39.0 - Urinary tract infection, site not specified Is this a current diagnosis for this admission?: Yes (6) Pleural effusion Is this a current diagnosis for this admission?: Yes (7) Sepsis Qualifiers: Sepsis type: sepsis due to unspecified organism Qualified Code(s): A41.9 - Sepsis, unspecified organism Is this a current diagnosis for this admission?: Yes (8) Collapse of left lung Is this a current diagnosis for this admission?: Yes
[2018-04-18] MEDS: VANCOMYCIN HCL 750 MG in DEXTROSE 5%-WATER 250 ML IV SCH (22:39)
[2018-04-19] MEDS: INSULIN LISPRO 100 UNIT/ML 3 ML VIAL SUBCUT PRN (00:33)
[2018-04-19] MEDS: IPRATROPIUM/ALBUTEROL 0.5-2.5 MG/3 ML AMPUL NEB SCH ×4 (01:08→19:40)
[2018-04-19 07:01] LABS: ABSOLUTE BASOPHILS # (AUTO) 0.1 10^3/uL (0.0-0.2); ABSOLUTE EOSINOPHILS # (AUTO) 1.1 10^3/uL (0.0-0.6); ABSOLUTE LYMPHOCYTES (AUTO) 2.3 10^3/uL (0.5-4.7); ABSOLUTE MONOCYTES (AUTO) 1.1 10^3/uL (0.1-1.4); ABSOLUTE NEUT (AUTO) 7.6 10^3/uL (1.7-8.2); BASOPHILS % (AUTO) 0.6 % (0-2); EOSINOPHILS % (AUTO) 9.1 % (0-6); HEMATOCRIT 27.1 % (36.0-47.0); HEMOGLOBIN 8.7 g/dL (12.0-15.5); LYMPHOCYTES % (AUTO) 19.2 % (13-45); MEAN CORPUSCULAR HEMOGLOBIN 25.4 pg (27.0-33.4); MEAN CORPUSCULAR HGB CONC 32.1 g/dL (32.0-36.0); MEAN CORPUSCULAR VOLUME 79 fl (80-97); MONOCYTES % (AUTO) 9.1 % (3-13); PLATELET COUNT 430 10^3/uL (150-450); RED BLOOD COUNT 3.43 10^6/uL (3.72-5.28); RED CELL DISTRIBUTION WIDTH 20.1 % (11.5-14.0); TOTAL CELLS COUNTED % (AUTO) 100 %; WHITE BLOOD COUNT 12.2 10^3/uL (4.0-10.5)
[2018-04-19 07:15] LABS: ALANINE AMINOTRANSFERASE 52 U/L (9-52); ALBUMIN 3.3 g/dL (3.5-5.0); ALKALINE PHOSPHATASE 485 U/L (38-126); ANION GAP 13 (5-19); ASPARTATE AMINO TRANSFERASE 53 U/L (14-36); BILIRUBIN,DIRECT 0.4 mg/dL (0.0-0.4); BILIRUBIN,TOTAL 0.5 mg/dL (0.2-1.3); BLOOD UREA NITROGEN 56 mg/dL (7-20); CALCIUM 10.1 mg/dL (8.4-10.2); CARBON DIOXIDE 25 mmol/L (22-30); CHLORIDE 107 mmol/L (98-107); GLUCOSE 135 mg/dL (75-110); NEONATAL BILIRUBIN RESULT 0.1 mg/dL (0.1-1.1); POTASSIUM 4.7 mmol/L (3.6-5.0); SODIUM 144.8 mmol/L (137-145); TOTAL PROTEIN 7.1 g/dL (6.3-8.2)
[2018-04-19] MEDS: BUDESONIDE NEB 0.5 MG/2 ML AMPUL NEB SCH ×2 (08:16→19:40)
[2018-04-19] MEDS: MULTIVITAMINS W-IRON TABLET, CHEWABLE PEG SCH (10:06)
[2018-04-19] MEDS: FUROSEMIDE 40 MG TABLET PEG SCH (10:07)
[2018-04-19] MEDS: ASPIRIN 81 MG TABLET, CHEWABLE PEG SCH (10:07)
[2018-04-19] MEDS: INSULIN DETEMIR 100 UNIT/ML 3 ML PEN SUBCUT SCH (10:07)
[2018-04-19] MEDS: LACTOBACILLUS ACIDOPHILUS 250 MG TAB PEG SCH (10:07)
[2018-04-19] MEDS: ASCORBIC ACID 500 MG TABLET PEG SCH (10:07)
[2018-04-19] MEDS: MEMANTINE HCL 10 MG TABLET PEG SCH (10:08)
[2018-04-19] MEDS: AMLODIPINE BESYLATE 10 MG TABLET PEG SCH (10:08)
--- NOTE | 2018-04-19 13:41 | RADIOLOGY REPORT (SQ) ---
EXAM DESCRIPTION: PICC INSERTION COMPLETED DATE/TIME: 04/19/2018 1:21 pm REASON FOR STUDY: No IV access COMPARISON: None. FLUOROSCOPY TIME: None 1 images saved to PACS. TECHNIQUE: Fluoroscopic and ultrasound guided PICC placement. LIMITATIONS: None. PROCEDURE: After written consent and assessment were obtained, the patient was brought into the fluo roscopy room and place supine on the table. Ultrasound evaluation of potential access sites were perf ormed. After successfully identifying a patent antecubital vein, the right arm was prepped and draped in a sterile fashion along with the ultrasound probe. The entry site was anesthetized with 1% lidoca ine. A 21 gauge 7 cm needle was advanced through the skin and into the antecubital vein under live ul trasound guidance. An ultrasound image was saved to PACS confirming access site. A .018 guide wire was then inserted through the needle and into the venous system. The needle was the removed and an 11 blade scalpel was used to make a 1cm skin incision. A 5 fr peel-away sheath was advanced over the w pey[place] and into the venous system. A measurement was then made using the existing wire and live fluorosc opic guidance. The wire was then removed and the trimmed. The PICC was advanced through the peel-away sheath and into the venous system. The peel-away sheath was removed and the catheter was adhered to the patients arm with a stat lock. The catheter was then aspirated and flushed and a sterile bandage was placed over the access site. A fluoroscopic spot image was saved to PACS confirming the catheter tip within the superior vena cava. IMPRESSION: SUCCESSFUL PLACEMENT OF A 5 FR dual LUMEN 35 CM PICC IN THE superior vena cava VEIN. COMMENT: Patient medication list reviewed: Yes. Quality ID 145: Final reports for procedures using fluoroscopy that document radiation exposure zuhair reina, or exposure time and number of fluorographic images (if radiation exposure indices are not avail able) Quality ID #76: The patient was prepped and draped using maximum sterile barrier technique including cap, mask, sterile gown, sterile gloves, a large sterile sheet, hand hygiene, and 2% Chlorhexidine fo r cutaneous antisepsis. When ultrasound is used, sterile ultrasound techniques are followed requiring sterile gel and sterile probes. TECHNICAL DOCUMENTATION: JOB ID: [id number]- All Rights Reserved rev-02/10 Reading location - IP/workstation name: [email or web address]
--- NOTE | 2018-04-19 13:41 | RADIOLOGY REPORT (SQ) ---
EXAM DESCRIPTION: U/S GUIDE FOR VASCULAR ACCESS COMPLETE DATE/TIME: 04/19/2018 1:21 pm REASON FOR STUDY: IV ACCESS FINDINGS: Please see combined report for performance of procedure and radiologic supervision and int erpretation. IMPRESSION: Please see combined report for performance of procedure and radiologic supervision and i nterpretation. Reading location - IP/workstation name: [email or web address]
[2018-04-19] MEDS: PIPERACILLIN SODIUM/TAZOBACTAM 3.375 GM in NORMAL SALINE 100 ML IV SCH ×2 (14:01)
[2018-04-19] MEDS: LEVOFLOXACIN 750 MG/D5W RTU 750 MG/150 ML RTUPB IV SCH (15:08)
[2018-04-19 22:06] VITALS: BP 124/58
== END 2018-04-19 21:15 | disposition short-term general hospital (02) | DRG 870 ==
LOC: ER 07:31 → EH 09:22 → UNDOADMIN 09:22 → 3N 16:58
PROVIDERS: ADMIT Internal Medicine; ATTEND Internal Medicine
PROC: 3E0F73Z Introduction of Anti-inflammatory into Respiratory Tract, Via Natural or Artificial Opening (ICD-10-PCS; 2018-04-06)
PROC: 5A1955Z Respiratory Ventilation, Greater than 96 Consecutive Hours (ICD-10-PCS; principal; 2018-04-07)
PROC: 0W993ZX Drainage of Right Pleural Cavity, Percutaneous Approach, Diagnostic (ICD-10-PCS; 2018-04-07)
PROC: 30233N1 Transfusion of Nonautologous Red Blood Cells into Peripheral Vein, Percutaneous Approach (ICD-10-PCS; 2018-04-16)
PROC: 02HV33Z Insertion of Infusion Device into Superior Vena Cava, Percutaneous Approach (ICD-10-PCS; 2018-04-19)
PROC: B548ZZA Ultrasonography of Superior Vena Cava, Guidance (ICD-10-PCS; 2018-04-19)
PROC: B518ZZA Fluoroscopy of Superior Vena Cava, Guidance (ICD-10-PCS; 2018-04-19)
DX: A41.9 Sepsis, unspecified organism (principal); G93.41 Metabolic encephalopathy; J96.21 Acute and chronic respiratory failure with hypoxia; J15.1 Pneumonia due to Pseudomonas; T83.511A Infection and inflammatory reaction due to indwelling urethral catheter, initial encounter; T17.890A Other foreign object in other parts of respiratory tract causing asphyxiation, initial encounter; J91.8 Pleural effusion in other conditions classified elsewhere; N39.0 Urinary tract infection, site not specified; J98.19 Other pulmonary collapse; J95.851 Ventilator associated pneumonia; Z66 Do not resuscitate; C44.311 Basal cell carcinoma of skin of nose; X58.XXXA Exposure to other specified factors, initial encounter; E78.00 Pure hypercholesterolemia, unspecified; E11.51 Type 2 diabetes mellitus with diabetic peripheral angiopathy without gangrene; J44.9 Chronic obstructive pulmonary disease, unspecified; F03.90 Unspecified dementia, unspecified severity, without behavioral disturbance, psychotic disturbance, mood disturbance, and anxiety; I11.0 Hypertensive heart disease with heart failure; I50.9 Heart failure, unspecified; Z96.641 Presence of right artificial hip joint; E21.3 Hyperparathyroidism, unspecified; Y84.8 Other medical procedures as the cause of abnormal reaction of the patient, or of later complication, without mention of misadventure at the time of the procedure; E83.52 Hypercalcemia; Z93.1 Gastrostomy status; Z93.0 Tracheostomy status; Z79.899 Other long term (current) drug therapy; Z79.82 Long term (current) use of aspirin; Z79.4 Long term (current) use of insulin; Z88.8 Allergy status to other drugs, medicaments and biological substances; Z86.14 Personal history of Methicillin resistant Staphylococcus aureus infection; Z86.711 Personal history of pulmonary embolism; Z89.511 Acquired absence of right leg below knee; Z74.01 Bed confinement status
CPT/HCPCS: 32555; 36415; 36430; 36569; 51702; 71045; 76604; 76937; 80053; 80202; 81001; 82397; 82803; 82945; 82962; 83605; 83615; 83880; 84155; 84157; 84165; 84166; 84484; 85025; 85610; 85730; 86850; 86900; 86901; 86920; 87015; 87040; 87070; 87075; 87077; 87116; 87186; 87205; 87206; 87493; 89050; 93005; 93010; 94002; 94003; 94640; 96361; 96365; 96375; 99291; J0295; J0692; J1642; J1650; J1815; J1940; J1956; J2543; J3370; J3490; J7030; J7060; J7620; P9016; S0119

== ENCOUNTER 2018-05-17 20:32 | Inpatient (IN) | payer MEDICARE, MEDICAID ==
[2018-05-17] MEDS ORDERED: DEXTROSE 40% GEL 15 GM TUBE PO PRN ×2 (21:06)
[2018-05-17] MEDS ORDERED: GLUCAGON,HUMAN RECOMB 1 MG INJ IM PRN (21:06)
[2018-05-17] MEDS ORDERED: DEXTROSE 50%-WATER 25 GM/50 ML DISP.SYRIN IV PRN ×2 (21:06)
--- NOTE | 2018-05-17 21:29 | PDOC H&P ---
History of Present Illness Admission Date/PCP: 05/17/18 20:32 BAKARI BECKER MD Patient complains of: Chronic respiratory failure History of Present Illness: BRIANA BRADY is a 82 year old female of Dr Becker who was transferred back to his service from Replaced by [facility] s/p tracheostomy and PEG tube placement and medical stability. Patient has history of COPD and recently transferred to [facility] for tracheostomy due to lack of available service at this facility. She is currently medically stable for chronic ventilatory support. Family wish to have patient close to home necessitating her transfer back to this hospital. Efforts will be directed at continue medical care with disposition to home on local facility for supervisor intermediates ventilator support. Her morbidities include COPD, Diabetes mellitus type 2 with complications, HTN, Chronic CHF, PAD s/p right AKA, Left heel pressure ulcer. Past Medical History Cardiac Medical History: Reports: Congestive Heart Failure, Hyperlipidema, Hypertension, Peripheral Vascular Disease, Pulmonary Embolism Pulmonary Medical History: Reports: Chronic Obstructive Pulmonary Disease (COPD) , Pneumonia - aspiration Endocrine Medical History: Reports: Diabetes Mellitus Type 1, Diabetes Mellitus Type 2 Psychiatric Medical History: Reports: Dementia Denies: Depression Infectious Medical History: Reports: Clostridium Difficile, Methicillin- Resistant Staph Aureus, Vancomycin-Resistant Enterococci Past Surgical History Past Surgical History: Reports: Orthopedic Surgery - Shoulder. 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 Social History Smoking Status: Former Smoker Frequency of Alcohol Use: None Hx Recreational Drug Use: No Drugs: None Hx Prescription Drug Abuse: No Family History Family History: Reviewed & Not Pertinent Parental Family History Reviewed: Yes Children Family History Reviewed: Yes Sibling(s) Family History Reviewed.: Yes Medication/Allergy Allergies/Adverse Reactions: alprazolam [From Xanax] Allergy (Verified 03/07/18 09:34) iodine [Iodine] Allergy (Verified 03/07/18 09:34) quetiapine fumarate [From Seroquel] Allergy (Verified 03/07/18 09:34) Physical Exam Vital Signs: Temp Pulse Resp BP Pulse Ox 67 05/17/18 20:32 Intake & Output 05/16/18 05/17/18 05/18/18 06:59 06:59 06:59 Weight 71.5 kg General appearance: PRESENT: no acute distress Head exam: PRESENT: atraumatic, normocephalic Eye exam: PRESENT: conjunctiva pink, EOMI, PERRLA. ABSENT: scleral icterus Ear exam: PRESENT: normal external ear exam Mouth exam: PRESENT: moist Neck exam: PRESENT: tracheostomy Respiratory exam: PRESENT: clear to auscultation monica, decreased breath sounds - at lung bases Cardiovascular exam: PRESENT: RRR. ABSENT: diastolic murmur, rubs, systolic murmur Pulses: PRESENT: +1 pedal pulses bilateral Vascular exam: PRESENT: normal capillary refill. ABSENT: pallor GI/Abdominal exam: PRESENT: normal bowel sounds, soft, other - PEG tube site satisfactory. ABSENT: distended, guarding, mass, organolmegaly, rebound, tenderness Rectal exam: PRESENT: deferred Extremities exam: PRESENT: right AKA. ABSENT: pedal edema Musculoskeletal exam: PRESENT: other - left heel stage 2 pressure ulcer Neurological exam: PRESENT: alert, awake Psychiatric exam: ABSENT: agitated, anxious Skin exam: PRESENT: dry, warm, other - basal cell cancer lesion over left nostrum region Results Laboratory Results: Pending at the time of my evaluation. I reviewed her chart from [facility]. Assessment & Plan - Diagnosis (1) Chronic respiratory failure with hypoxia and hypercapnia Is this a current diagnosis for this admission?: Yes Plan: See admitting attending physician orders. (2) Tracheostomy dependence Is this a current diagnosis for this admission?: Yes Plan: See admitting attending physician orders. (3) COPD (chronic obstructive pulmonary disease) Qualifiers: COPD type: unspecified COPD Qualified Code(s): J44.9 - Chronic obstructive pulmonary disease, unspecified Is this a current diagnosis for this admission?: Yes Plan: See admitting attending physician orders. (4) CHF (congestive heart failure) Qualifiers: Heart failure type: diastolic Heart failure chronicity: chronic Qualified Code(s): I50.32 - Chronic diastolic (congestive) heart failure Is this a current diagnosis for this admission?: Yes Plan: See admitting attending physician orders. (5) Hypertension Qualifiers: Hypertension type: essential hypertension Qualified Code(s): I10 - Essential (primary) hypertension Is this a current diagnosis for this admission?: Yes Plan: See admitting attending physician orders. (6) Type 2 diabetes mellitus Qualifiers: Diabetes mellitus supervisor intermediates insulin use: with supervisor intermediates use Diabetes mellitus complication status: with neurologic complications Diabetes mellitus complication detail: with polyneuropathy Qualified Code(s): E11.42 - Type 2 diabetes mellitus with diabetic polyneuropathy Is this a current diagnosis for this admission?: Yes Plan: See admitting attending physician orders. (7) Dementia Qualifiers: Dementia type: Alzheimer's disease Alzheimer's disease onset: late-onset Dementia behavioral disturbance: without behavioral disturbance Qualified Code (s): G30.1 - Alzheimer's disease with late onset; F02.80 - Dementia in other diseases classified elsewhere without behavioral disturbance; F02.80 - Dementia in other diseases classified elsewhere without behavioral disturbance; F02.80 - Dementia in other diseases classified elsewhere without behavioral disturbance Is this a current diagnosis for this admission?: Yes Plan: See admitting attending physician orders. - Time Time Spent: 50 to 70 Minutes Medications reviewed and adjusted accordingly: Yes Anticipated discharge: Home with Homehealth, SNF Within: Other - Inpatient Certification Based on my medical assessment, after consideration of the patient's comorbidities, presenting symptoms, or acuity I expect that the services needed warrant INPATIENT care.: Yes I certify that my determination is in accordance with my understanding of Medicare's requirements for reasonable and necessary INPATIENT services [42 CFR 412.3e].: Yes Medical Necessity: Need Close Monitoring Due to Risk of Patient Decompensation, Need For Continuous Telemetry Monitoring, Need for Nebulizer Therapy and Monitoring of Response, Risk of Complication if Not Cared For in Hospital Post Hospital Care: D/C Pastor Documentation, D/C or Transfer Summary - Plan Summary Plan Summary: See admitting attending physician orders.
[2018-05-17] MEDS ORDERED: BULGARICUS PEG PRN (22:40)
[2018-05-17] MEDS ORDERED: ACIDOPHILUS PEG PRN (22:40)
[2018-05-17] MEDS ORDERED: ACETAMINOPHEN 325 MG TABLET PEG PRN (22:40)
[2018-05-17] MEDS ORDERED: ALBUTEROL SULFATE NEB PRN (22:40)
[2018-05-18] MEDS: LANSOPRAZOLE 30 MG TAB.RAP.DR PO SCH (05:18)
[2018-05-18 06:01] LABS: ALANINE AMINOTRANSFERASE 69 U/L (9-52); ALBUMIN 3.8 g/dL (3.5-5.0); ALKALINE PHOSPHATASE 548 U/L (38-126); ANION GAP 17 (5-19); ASPARTATE AMINO TRANSFERASE 82 U/L (14-36); BILIRUBIN,DIRECT 0.5 mg/dL (0.0-0.4); BILIRUBIN,TOTAL 0.6 mg/dL (0.2-1.3); BLOOD UREA NITROGEN 71 mg/dL (7-20); CALCIUM 10.3 mg/dL (8.4-10.2); CARBON DIOXIDE 24 mmol/L (22-30); CHLORIDE 100 mmol/L (98-107); GLUCOSE 116 mg/dL (75-110); POTASSIUM 4.6 mmol/L (3.6-5.0); SODIUM 140.6 mmol/L (137-145); TOTAL PROTEIN 8.3 g/dL (6.3-8.2)
[2018-05-18 06:36] LABS: ABSOLUTE BASOPHILS # (AUTO) 0.1 10^3/uL (0.0-0.2); ABSOLUTE EOSINOPHILS # (AUTO) 2.1 10^3/uL (0.0-0.6); ABSOLUTE LYMPHOCYTES (AUTO) 4.1 10^3/uL (0.5-4.7); ABSOLUTE NEUT (AUTO) 3.7 10^3/uL (1.7-8.2); BASOPHILS % (AUTO) 0.9 % (0-2); EOSINOPHILS % (AUTO) 19.3 % (0-6); HEMATOCRIT 28.3 % (36.0-47.0); HEMOGLOBIN 9.2 g/dL (12.0-15.5); LYMPHOCYTES % (AUTO) 37.1 % (13-45); MEAN CORPUSCULAR HEMOGLOBIN 26.2 pg (27.0-33.4); MEAN CORPUSCULAR HGB CONC 32.4 g/dL (32.0-36.0); MEAN CORPUSCULAR VOLUME 81 fl (80-97); MONOCYTES % (AUTO) 9.2 % (3-13); PLATELET COUNT 399 10^3/uL (150-450); RED BLOOD COUNT 3.51 10^6/uL (3.72-5.28); RED CELL DISTRIBUTION WIDTH 21.6 % (11.5-14.0); SEGMENTED NEUTROPHILS % (AUTO) 33.5 % (42-78); TOTAL CELLS COUNTED % (AUTO) 100 %
[2018-05-18] MEDS: BUDESONIDE NEB 0.5 MG/2 ML AMPUL NEB SCH ×2 (08:00→20:04)
[2018-05-18] MEDS ORDERED: MULTIVITAMIN TABLET PO SCH (10:00)
[2018-05-18] MEDS: PREDNISONE 10 MG TABLET PEG SCH (10:46)
[2018-05-18] MEDS: LISINOPRIL 10 MG TABLET PEG SCH (10:46)
[2018-05-18] MEDS: ASPIRIN 81 MG TABLET, ENT COATED PO SCH (10:47)
[2018-05-18] MEDS: FUROSEMIDE 80 MG TABLET PEG SCH ×2 (10:47→17:37)
[2018-05-18] MEDS: SENNOSIDES/DOCUSATE 8.6-50 MG 1 EACH TABLET PEG SCH (10:47)
[2018-05-18] MEDS: AMLODIPINE BESYLATE 10 MG TABLET PEG SCH (10:47)
[2018-05-18] MEDS: ASCORBIC ACID 500 MG TABLET PEG SCH (10:47)
[2018-05-18] MEDS: ENOXAPARIN SODIUM INJ 40 MG/0.4 ML DISP.SYRIN SUBCUT SCH (10:48)
[2018-05-18] MEDS: INSULIN DETEMIR 100 UNIT/ML 3 ML PEN SUBCUT SCH (10:48)
[2018-05-18] MEDS: ONDANSETRON HCL 8 MG TABLET PEG PRN (12:04)
[2018-05-18] MEDS: INSULIN LISPRO 100 UNIT/ML 3 ML VIAL SUBCUT PRN ×2 (13:43→18:16)
[2018-05-18] MEDS: LEVALBUTEROL HCL NEB 0.63 MG/3 ML AMPUL NEB PRN ×2 (14:09→20:06)
--- NOTE | 2018-05-18 17:13 | PDOC PROGRESS REPORT ---
Subjective Progress Note for:: 05/18/18 Subjective:: Patient remain vent supported via tracheostomy. There was incident of persistently oxygen saturation around 91% on supplemental oxygen at 35% earlier this morning. No reported fever. Tolerating enteral tube feeding. Reason For Visit: CHRNIC RESPIRATORY FAILURE S/P TRACHEOSTOMY ON Physical Exam Vital Signs: Temp Pulse Resp BP Pulse Ox 97.9 F 62 26 H 138/44 H 100 05/18/18 07:56 05/18/18 07:56 05/18/18 07:56 05/18/18 07:56 05/18/18 04:13 Intake & Output 05/17/18 05/18/18 05/19/18 06:59 06:59 06:59 Intake Total 204 Output Total 1700 Balance -1496 Weight 71.6 kg General appearance: PRESENT: no acute distress, well-developed, well-nourished Head exam: PRESENT: atraumatic, normocephalic Ear exam: PRESENT: normal external ear exam Mouth exam: PRESENT: moist Neck exam: PRESENT: tracheostomy Respiratory exam: PRESENT: clear to auscultation monica, decreased breath sounds - at lung bases Cardiovascular exam: PRESENT: RRR. ABSENT: diastolic murmur, rubs, systolic murmur GI/Abdominal exam: PRESENT: normal bowel sounds, soft, other - PEG site dressing okay.. ABSENT: distended, guarding, mass, organolmegaly, rebound, tenderness Extremities exam: PRESENT: right AKA. ABSENT: pedal edema Musculoskeletal exam: PRESENT: deformity - related to multiple joints involvement with arthritis Neurological exam: PRESENT: alert, awake Psychiatric exam: ABSENT: agitated, anxious Skin exam: PRESENT: dry, warm, other - left heel stage 2 pressure ulcer Results Laboratory Results: 05/18/18 04:33 05/18/18 04:33 05/18/18 05/18/18 04:33 04:33 WBC 11.0 H RBC 3.51 L Hgb 9.2 L Hct 28.3 L MCV 81 MCH 26.2 L MCHC 32.4 RDW 21.6 H Plt Count 399 Seg Neutrophils % 33.5 L Lymphocytes % 37.1 Monocytes % 9.2 Eosinophils % 19.3 H Basophils % 0.9 Absolute Neutrophils 3.7 Absolute Lymphocytes 4.1 Absolute Monocytes 1.0 Absolute Eosinophils 2.1 H Absolute Basophils 0.1 Sodium 140.6 Potassium 4.6 Chloride 100 Carbon Dioxide 24 Anion Gap 17 BUN 71 H Creatinine 1.24 Est GFR ( Amer) 50 L Est GFR (Non-Af Amer) 41 L Glucose 116 H Calcium 10.3 H Total Bilirubin 0.6 AST 82 H ALT 69 H Alkaline Phosphatase 548 H Total Protein 8.3 H Albumin 3.8 Assessment & Plan - Diagnosis (1) Chronic respiratory failure with hypoxia and hypercapnia Is this a current diagnosis for this admission?: Yes (2) Tracheostomy dependence Is this a current diagnosis for this admission?: Yes (3) COPD (chronic obstructive pulmonary disease) Qualifiers: COPD type: unspecified COPD Qualified Code(s): J44.9 - Chronic obstructive pulmonary disease, unspecified Is this a current diagnosis for this admission?: Yes (4) CHF (congestive heart failure) Qualifiers: Heart failure type: diastolic Heart failure chronicity: chronic Qualified Code(s): I50.32 - Chronic diastolic (congestive) heart failure Is this a current diagnosis for this admission?: Yes (5) Hypertension Qualifiers: Hypertension type: essential hypertension Is this a current diagnosis for this admission?: Yes (6) Type 2 diabetes mellitus Qualifiers: Diabetes mellitus terminal supervisor insulin use: with [facility] use Diabetes mellitus complication status: with neurologic complications Diabetes mellitus complication detail: with polyneuropathy Qualified Code(s): E11.42 - Type 2 diabetes mellitus with diabetic polyneuropathy Is this a current diagnosis for this admission?: Yes (7) Dementia Qualifiers: Dementia type: Alzheimer's disease Alzheimer's disease onset: late-onset Dementia behavioral disturbance: without behavioral disturbance Qualified Code (s): G30.1 - Alzheimer's disease with late onset; F02.80 - Dementia in other diseases classified elsewhere without behavioral disturbance; F02.80 - Dementia in other diseases classified elsewhere without behavioral disturbance; F02.80 - Dementia in other diseases classified elsewhere without behavioral disturbance Is this a current diagnosis for this admission?: Yes (8) Pressure ulcer of left heel, stage 2 Is this a current diagnosis for this admission?: Yes Plan: See attending physician orders. - Time Time Spent with patient: 25-34 minutes Medications reviewed and adjusted accordingly: Yes Anticipated discharge: Home with Homehealth, SNF, Other Within: Other - Inpatient Certification Based on my medical assessment, after consideration of the patient's comorbidities, presenting symptoms, or acuity I expect that the services needed warrant INPATIENT care.: Yes I certify that my determination is in accordance with my understanding of Medicare's requirements for reasonable and necessary INPATIENT services [42 CFR 412.3e].: Yes Medical Necessity: Need For IV Fluids, Need For Continuous Telemetry Monitoring , Risk of Complication if Not Cared For in Hospital Post Hospital Care: D/C Staff Mechanical Engineer Documentation, D/C or Transfer Summary - Plan Summary Plan Summary: See attending physician orders.
[2018-05-19] MEDS: LANSOPRAZOLE 30 MG TAB.RAP.DR PO SCH (06:08)
[2018-05-19] MEDS: BUDESONIDE NEB 0.5 MG/2 ML AMPUL NEB SCH ×2 (08:00→19:52)
[2018-05-19] MEDS: LEVALBUTEROL HCL NEB 0.63 MG/3 ML AMPUL NEB PRN ×2 (08:00→19:52)
[2018-05-19] MEDS: INSULIN LISPRO 100 UNIT/ML 3 ML VIAL SUBCUT PRN ×3 (10:00→19:05)
[2018-05-19] MEDS: SENNOSIDES/DOCUSATE 8.6-50 MG 1 EACH TABLET PEG SCH (10:00)
[2018-05-19] MEDS: LISINOPRIL 10 MG TABLET PEG SCH (10:45)
[2018-05-19] MEDS: FUROSEMIDE 80 MG TABLET PEG SCH ×2 (10:46→17:22)
[2018-05-19] MEDS: PREDNISONE 10 MG TABLET PEG SCH (10:47)
[2018-05-19] MEDS: ASPIRIN 81 MG TABLET, ENT COATED PO SCH (10:47)
[2018-05-19] MEDS: ENOXAPARIN SODIUM INJ 40 MG/0.4 ML DISP.SYRIN SUBCUT SCH (10:47)
[2018-05-19] MEDS: AMLODIPINE BESYLATE 10 MG TABLET PEG SCH (10:49)
[2018-05-19] MEDS: ASCORBIC ACID 500 MG TABLET PEG SCH (10:50)
[2018-05-19] MEDS: INSULIN DETEMIR 100 UNIT/ML 3 ML PEN SUBCUT SCH (10:50)
[2018-05-19] MEDS: ASPIRIN 81 MG TABLET, CHEWABLE PO SCH (14:03)
[2018-05-19] MEDS: MULTIVITAMIN ORAL LIQUID 60 ML PO SCH (14:03)
--- NOTE | 2018-05-19 15:53 | PDOC PROGRESS REPORT ---
Subjective Progress Note for:: 05/19/18 Subjective:: Patient remain vent supported via tracheostomy. No reported fever. Tolerating enteral tube feeding with advance rate at 30ml/hour. Feeding goal rate will be 45mL/hour over next couple of days. Reason For Visit: CHRNIC RESPIRATORY FAILURE S/P TRACHEOSTOMY ON Physical Exam Vital Signs: Temp Pulse Resp BP Pulse Ox 97.6 F 68 25 H 159/66 H 93 05/19/18 11:14 05/19/18 14:48 05/19/18 11:14 05/19/18 11:14 05/19/18 11:45 Pulse Oximeter Continuous Start: 05/18/18 08: 48 Freq: RTQ4 Status: Active Document 05/19/18 11:45 [facility] (Rec: 05/19/18 13:36 [facility] [id number]) Pulse Oximetry Assessment Oxygen Saturation (92-100) 93 Oxygen Delivery Method Mechanical Ventilator Fraction of Inspired Oxygen (FIO2) 75 Equipment Usage Equipment in Use Continuous SpO2 Machine # N 9 Intake & Output 05/18/18 05/19/18 05/20/18 06:59 06:59 06:59 Intake Total 204 1377 60 Output Total 1700 2350 400 Balance -1496 -973 -340 Weight 71.6 kg 74 kg Physical Exam: General appearance: PRESENT: no acute distress, well-developed, well-nourished Head exam: PRESENT: atraumatic, normocephalic Ear exam: PRESENT: normal external ear exam Mouth exam: PRESENT: moist Neck exam: PRESENT: tracheostomy Respiratory exam: PRESENT: clear to auscultation monica, decreased breath sounds - at lung bases Cardiovascular exam: PRESENT: RRR. ABSENT: diastolic murmur, rubs, systolic murmur GI/Abdominal exam: PRESENT: normal bowel sounds, soft, other - PEG site dressing okay.. ABSENT: distended, guarding, mass, organomegaly, rebound, tenderness Extremities exam: PRESENT: right AKA. ABSENT: pedal edema Musculoskeletal exam: PRESENT: deformity - related to multiple joints involvement with arthritis Neurological exam: PRESENT: alert, awake Psychiatric exam: ABSENT: agitated, anxious Skin exam: PRESENT: dry, warm, other -improving left heel stage 2 pressure ulcer Results Laboratory Results: 05/18/18 04:33 05/18/18 04:33 Assessment & Plan - Diagnosis (1) Chronic respiratory failure with hypoxia and hypercapnia Is this a current diagnosis for this admission?: Yes (2) Tracheostomy dependence Is this a current diagnosis for this admission?: Yes (3) COPD (chronic obstructive pulmonary disease) Qualifiers: COPD type: unspecified COPD Qualified Code(s): J44.9 - Chronic obstructive pulmonary disease, unspecified Is this a current diagnosis for this admission?: Yes (4) CHF (congestive heart failure) Qualifiers: Heart failure type: diastolic Heart failure chronicity: chronic Qualified Code(s): I50.32 - Chronic diastolic (congestive) heart failure Is this a current diagnosis for this admission?: Yes (5) Hypertension Qualifiers: Hypertension type: essential hypertension Is this a current diagnosis for this admission?: Yes (6) Type 2 diabetes mellitus Qualifiers: Diabetes mellitus bed bug exterminator insulin use: with care home use Diabetes mellitus complication status: with neurologic complications Diabetes mellitus complication detail: with polyneuropathy Qualified Code(s): E11.42 - Type 2 diabetes mellitus with diabetic polyneuropathy Is this a current diagnosis for this admission?: Yes (7) Dementia Qualifiers: Dementia type: Alzheimer's disease Alzheimer's disease onset: late-onset Dementia behavioral disturbance: without behavioral disturbance Qualified Code (s): G30.1 - Alzheimer's disease with late onset; F02.80 - Dementia in other diseases classified elsewhere without behavioral disturbance; F02.80 - Dementia in other diseases classified elsewhere without behavioral disturbance; F02.80 - Dementia in other diseases classified elsewhere without behavioral disturbance Is this a current diagnosis for this admission?: Yes (8) Pressure ulcer of left heel, stage 2 Is this a current diagnosis for this admission?: Yes - Time Time Spent with patient: 25-34 minutes Medications reviewed and adjusted accordingly: Yes Anticipated discharge: Home with Homehealth, SNF Within: Other - Inpatient Certification Based on my medical assessment, after consideration of the patient's comorbidities, presenting symptoms, or acuity I expect that the services needed warrant INPATIENT care.: Yes I certify that my determination is in accordance with my understanding of Medicare's requirements for reasonable and necessary INPATIENT services [42 CFR 412.3e].: Yes Medical Necessity: Need Close Monitoring Due to Risk of Patient Decompensation, Need For IV Fluids, Need For Continuous Telemetry Monitoring, Need for Nebulizer Therapy and Monitoring of Response, Risk of Complication if Not Cared For in Hospital Post Hospital Care: D/C or Transfer Summary - Plan Summary Plan Summary: See attending physician orders. Decrease Prednisone to 5 mg /peg daily. Advance feeding rate to 45ml/hour from tomorrow.
[2018-05-19 17:16] LABS: ABSOLUTE BASOPHILS # (AUTO) 0.1 10^3/uL (0.0-0.2); ABSOLUTE LYMPHOCYTES (AUTO) 2.8 10^3/uL (0.5-4.7); ABSOLUTE MONOCYTES (AUTO) 0.5 10^3/uL (0.1-1.4); ABSOLUTE NEUT (AUTO) 9.7 10^3/uL (1.7-8.2); BASOPHILS % (AUTO) 0.8 % (0-2); EOSINOPHILS % (AUTO) 0.2 % (0-6); HEMATOCRIT 29.7 % (36.0-47.0); HEMOGLOBIN 9.6 g/dL (12.0-15.5); LYMPHOCYTES % (AUTO) 21.5 % (13-45); MEAN CORPUSCULAR HGB CONC 32.1 g/dL (32.0-36.0); MEAN CORPUSCULAR VOLUME 81 fl (80-97); MONOCYTES % (AUTO) 3.5 % (3-13); PLATELET COUNT 485 10^3/uL (150-450); RED BLOOD COUNT 3.68 10^6/uL (3.72-5.28); RED CELL DISTRIBUTION WIDTH 21.1 % (11.5-14.0); TOTAL CELLS COUNTED % (AUTO) 100 %; WHITE BLOOD COUNT 13.1 10^3/uL (4.0-10.5)
[2018-05-19 18:16] LABS: ALANINE AMINOTRANSFERASE 63 U/L (9-52); ALBUMIN 4.7 g/dL (3.5-5.0); ALKALINE PHOSPHATASE 566 U/L (38-126); ASPARTATE AMINO TRANSFERASE 59 U/L (14-36); BILIRUBIN,DIRECT 0.5 mg/dL (0.0-0.4); BILIRUBIN,TOTAL 0.5 mg/dL (0.2-1.3); BLOOD UREA NITROGEN 70 mg/dL (7-20); CALCIUM 11.8 mg/dL (8.4-10.2); GLUCOSE 156 mg/dL (75-110); POTASSIUM 4.5 mmol/L (3.6-5.0); TOTAL PROTEIN 10.6 g/dL (6.3-8.2)
[2018-05-19 18:21] LABS: CARBON DIOXIDE 24 mmol/L (22-30); CHLORIDE 98 mmol/L (98-107); SODIUM 142.6 mmol/L (137-145)
[2018-05-19 18:24] LABS: ANION GAP 21 (5-19)
[2018-05-20] MEDS: ONDANSETRON HCL 8 MG TABLET PEG PRN (05:25)
[2018-05-20] MEDS: LANSOPRAZOLE 30 MG TAB.RAP.DR PO SCH (05:25)
[2018-05-20] MEDS: INSULIN LISPRO 100 UNIT/ML 3 ML VIAL SUBCUT PRN ×2 (06:33→13:41)
[2018-05-20] MEDS: LEVALBUTEROL HCL NEB 0.63 MG/3 ML AMPUL NEB PRN (08:24)
[2018-05-20] MEDS: BUDESONIDE NEB 0.5 MG/2 ML AMPUL NEB SCH ×2 (08:24→22:15)
--- NOTE | 2018-05-20 09:46 | PDOC PROGRESS REPORT ---
Subjective Progress Note for:: 05/20/18 Subjective:: Patient is currently on a vent to the tracheostomy Currently lying in bed no acute distress Patient with significant multiple comorbidity Discussed with the nursing staff no other concerns Reason For Visit: CHRNIC RESPIRATORY FAILURE S/P TRACHEOSTOMY ON Physical Exam Vital Signs: Temp Pulse Resp BP Pulse Ox 97.9 F 82 27 H 169/71 H 93 05/20/18 04:07 05/20/18 07:00 05/20/18 04:07 05/20/18 04:07 05/20/18 04:07 Pulse Oximeter Continuous Start: 05/18/18 08: 48 Freq: RTQ4 Status: Active Document 05/20/18 04:00 [facility] (Rec: 05/20/18 05:42 [facility] [id number]) Pulse Oximetry Assessment Oxygen Saturation (92-100) 93 Oxygen Delivery Method Mechanical Ventilator Fraction of Inspired Oxygen (FIO2) 75 Equipment Usage Equipment in Use Continuous Pulse Oximeter 24 Hour Charge Charge Now Continuous SpO2 Machine # 9 Intake & Output 05/19/18 05/20/18 05/21/18 06:59 06:59 06:59 Intake Total 1377 1408 Output Total 2350 2450 Balance -973 -1042 Weight 74 kg 72.1 kg Physical Exam: Currently on a mechanical vent to the tracheostomy General appearance: PRESENT: no acute distress Eye exam: PRESENT: PERRLA Mouth exam: PRESENT: neck supple Respiratory exam: PRESENT: decreased breath sounds Cardiovascular exam: PRESENT: +S1, +S2 GI/Abdominal exam: PRESENT: normal bowel sounds, soft Neurological exam: PRESENT: altered Skin exam: PRESENT: dry Results Laboratory Results: 05/19/18 16:45 05/19/18 16:45 05/19/18 05/19/18 16:45 16:45 WBC 13.1 H RBC 3.68 L Hgb 9.6 L Hct 29.7 L MCV 81 MCH 26.0 L MCHC 32.1 RDW 21.1 H Plt Count 485 H Seg Neutrophils % 74.0 Lymphocytes % 21.5 Monocytes % 3.5 Eosinophils % 0.2 Basophils % 0.8 Absolute Neutrophils 9.7 H Absolute Lymphocytes 2.8 Absolute Monocytes 0.5 Absolute Eosinophils 0.0 Absolute Basophils 0.1 Sodium 142.6 Potassium 4.5 Chloride 98 Carbon Dioxide 24 Anion Gap 21 H BUN 70 H Creatinine 1.46 H Est GFR ( Amer) 42 L Est GFR (Non-Af Amer) 34 L Glucose 156 H Calcium 11.8 H Total Bilirubin 0.5 AST 59 H ALT 63 H Alkaline Phosphatase 566 H Total Protein 10.6 H Albumin 4.7 Assessment & Plan - Diagnosis (1) Acute and chronic respiratory failure, unspecified whether with hypoxia or hypercapnia Qualifiers: Respiratory failure complication: hypoxia Qualified Code(s): J96.21 - Acute and chronic respiratory failure with hypoxia Is this a current diagnosis for this admission?: Yes (2) CHF (congestive heart failure) Qualifiers: Heart failure type: diastolic Heart failure chronicity: chronic Qualified Code(s): I50.32 - Chronic diastolic (congestive) heart failure Is this a current diagnosis for this admission?: Yes (3) COPD (chronic obstructive pulmonary disease) Qualifiers: COPD type: unspecified COPD Qualified Code(s): J44.9 - Chronic obstructive pulmonary disease, unspecified Is this a current diagnosis for this admission?: Yes (4) Pressure ulcer of left heel, stage 2 Is this a current diagnosis for this admission?: Yes (5) Dementia Qualifiers: Dementia type: unspecified type Dementia behavioral disturbance: without behavioral disturbance Qualified Code(s): F03.90 - Unspecified dementia without behavioral disturbance Is this a current diagnosis for this admission?: Yes - Time Time Spent with patient: 15-24 minutes Medications reviewed and adjusted accordingly: Yes Anticipated discharge: Other Within: Other - Inpatient Certification Medical Necessity: Need Close Monitoring Due to Risk of Patient Decompensation Post Hospital Care: D/C Supervisor [employer] Documentation - Plan Summary Plan Summary: Some sputum cultures growing some bacteria not sure what this is chronic We will check the patient's CBC and Chem-7 in the morning Consult the pulmonary Continues to current medications Overall very poor prognosis
[2018-05-20] MEDS: ASCORBIC ACID 500 MG TABLET PEG SCH (10:13)
[2018-05-20] MEDS: FUROSEMIDE 80 MG TABLET PEG SCH ×2 (10:13→17:55)
[2018-05-20] MEDS: LISINOPRIL 10 MG TABLET PEG SCH (10:13)
[2018-05-20] MEDS: ENOXAPARIN SODIUM INJ 40 MG/0.4 ML DISP.SYRIN SUBCUT SCH (10:14)
[2018-05-20] MEDS: PREDNISONE 10 MG TABLET PEG SCH (10:14)
[2018-05-20] MEDS: AMLODIPINE BESYLATE 10 MG TABLET PEG SCH (10:14)
[2018-05-20] MEDS: INSULIN DETEMIR 100 UNIT/ML 3 ML PEN SUBCUT SCH (10:15)
[2018-05-20] MEDS: ASPIRIN 81 MG TABLET, CHEWABLE PO SCH (10:18)
[2018-05-20] MEDS: MULTIVITAMIN ORAL LIQUID 60 ML PO SCH (10:19)
--- NOTE | 2018-05-20 11:10 | RADIOLOGY REPORT (SQ) ---
EXAM DESCRIPTION: CHEST SINGLE VIEW COMPLETED DATE/TIME: 05/20/2018 11:02 am REASON FOR STUDY: Respiratory failure COMPARISON: 04/19/2018. EXAM PARAMETERS: NUMBER OF VIEWS: One view. TECHNIQUE: Single frontal radiographic view of the chest acquired. RADIATION DOSE: NA LIMITATIONS: None. FINDINGS: LUNGS AND PLEURA: Complete opacification of the right hemithorax. Left lung relatively cl ear. MEDIASTINUM AND HILAR STRUCTURES: No masses. Contour normal. HEART AND VASCULAR STRUCTURES: Heart normal in size. Normal vasculature. BONES: No acute findings. HARDWARE: Tracheostomy tube. OTHER: No other significant finding. IMPRESSION: COMPLETE OPACIFICATION OF THE RIGHT HEMITHORAX. TECHNICAL DOCUMENTATION: JOB ID: [id number] [employer] All Rights Reserved Reading location - IP/workstation name: [email or web address]
[2018-05-20] MEDS: SENNOSIDES/DOCUSATE 8.6-50 MG 1 EACH TABLET PEG SCH (11:31)
[2018-05-20] MEDS ORDERED: PIPERACILLIN/TAZOBACTAM 3.375 GM VIAL IV SCH (13:15)
[2018-05-20] MEDS: IPRATROPIUM/ALBUTEROL 0.5-2.5 MG/3 ML AMPUL NEB SCH ×4 (14:18→23:52)
[2018-05-20 14:38] LABS: ABSOLUTE BASOPHILS # (AUTO) 0.1 10^3/uL (0.0-0.2); ABSOLUTE EOSINOPHILS # (AUTO) 0.5 10^3/uL (0.0-0.6); ABSOLUTE LYMPHOCYTES (AUTO) 2.6 10^3/uL (0.5-4.7); ABSOLUTE MONOCYTES (AUTO) 0.8 10^3/uL (0.1-1.4); ABSOLUTE NEUT (AUTO) 8.7 10^3/uL (1.7-8.2); BASOPHILS % (AUTO) 0.8 % (0-2); HEMATOCRIT 31.2 % (36.0-47.0); HEMOGLOBIN 10.3 g/dL (12.0-15.5); LYMPHOCYTES % (AUTO) 20.5 % (13-45); MEAN CORPUSCULAR HEMOGLOBIN 26.6 pg (27.0-33.4); MEAN CORPUSCULAR HGB CONC 33.1 g/dL (32.0-36.0); MEAN CORPUSCULAR VOLUME 80 fl (80-97); MONOCYTES % (AUTO) 6.2 % (3-13); PLATELET COUNT 470 10^3/uL (150-450); RED BLOOD COUNT 3.89 10^6/uL (3.72-5.28); RED CELL DISTRIBUTION WIDTH 21.3 % (11.5-14.0); SEGMENTED NEUTROPHILS % (AUTO) 68.5 % (42-78); TOTAL CELLS COUNTED % (AUTO) 100 %; WHITE BLOOD COUNT 12.7 10^3/uL (4.0-10.5)
[2018-05-20 14:39] LABS: ANION GAP 19 (5-19); BLOOD UREA NITROGEN 78 mg/dL (7-20); CALCIUM 11.3 mg/dL (8.4-10.2); CARBON DIOXIDE 25 mmol/L (22-30); CHLORIDE 101 mmol/L (98-107); GLUCOSE 197 mg/dL (75-110); POTASSIUM 3.9 mmol/L (3.6-5.0)
--- NOTE | 2018-05-20 15:12 | RADIOLOGY REPORT (SQ) ---
EXAM DESCRIPTION: CHEST SINGLE VIEW COMPLETED DATE/TIME: 05/20/2018 2:45 pm REASON FOR STUDY: massive atelectasis, right lung COMPARISON: 05/20/2018 and 04/19/2018 EXAM PARAMETERS: NUMBER OF VIEWS: One view. TECHNIQUE: Single frontal radiographic view of the chest acquired. RADIATION DOSE: NA LIMITATIONS: None. FINDINGS: LUNGS AND PLEURA: Stable pulmonary exam demonstrating complete opacification of the right hemithorax. No focal consolidation on the left ; a small left-sided pleural effusion may be present. MEDIASTINUM AND HILAR STRUCTURES: Stable. HEART AND VASCULAR STRUCTURES: Stable. BONES: No acute findings. HARDWARE: A tracheostomy sheath projects in the midline overlying the tracheal air shadow. OTHER: No other significant finding. IMPRESSION: Stable radiographic appearance of the chest demonstrating complete opacification of the right hemithorax. TECHNICAL DOCUMENTATION: JOB ID: [id number] [employer]- All Rights Reserved Reading location - IP/workstation name: [email or web address]
[2018-05-20 15:44] LABS: ARTERIAL BLOOD BASE EXCESS 3.2 mmol/L; ARTERIAL BLOOD H2CO3 1.14 mmol/L (1.05-1.35); ARTERIAL BLOOD O2 SATURATION 93.5 % (94-98); ARTERIAL BLOOD PCO2 37.9 mmHg (35-45); ARTERIAL BLOOD PH 7.47 (7.35-7.45); ARTERIAL BLOOD TOTAL CO2 28.1 mmol/L (21-25)
[2018-05-20 15:50] LABS: ARTERIAL BLOOD FIO2 65%
[2018-05-20] MEDS: PIPERACILLIN SODIUM/TAZOBACTAM 2.25 GM in NORMAL SALINE 50 ML IV SCH (17:51)
[2018-05-20] MEDS ORDERED: PIPERACILLIN SODIUM/TAZOBACTAM 3.375 GM in NORMAL SALINE 100 ML IV SCH (18:00)
[2018-05-20] MEDS ORDERED: TOBRAMYCIN SULFATE/DEXAMETH OPH SUSP 2.5 ML ONE (18:45)
[2018-05-20] MEDS: ERYTHROMYCIN 0.5% OPH OINTMENT 3.5 GM TUBE OU SCH (22:09)
[2018-05-20] MEDS: TOBRAMYCIN SULFATE/DEXAMETH OPH SUSP 2.5 ML OU SCH (22:11)
[2018-05-21] MEDS: INSULIN LISPRO 100 UNIT/ML 3 ML VIAL SUBCUT PRN ×4 (00:54→18:26)
[2018-05-21] MEDS: PIPERACILLIN SODIUM/TAZOBACTAM 2.25 GM in NORMAL SALINE 50 ML IV SCH ×4 (00:55→18:07)
[2018-05-21] MEDS: IPRATROPIUM/ALBUTEROL 0.5-2.5 MG/3 ML AMPUL NEB SCH ×5 (04:39→19:45)
[2018-05-21] MEDS: TOBRAMYCIN SULFATE/DEXAMETH OPH SUSP 2.5 ML OU SCH ×3 (05:03→21:42)
[2018-05-21] MEDS: LANSOPRAZOLE 30 MG TAB.RAP.DR PO SCH (05:13)
[2018-05-21 05:59] LABS: HEMATOCRIT 28.6 % (36.0-47.0); HEMOGLOBIN 9.3 g/dL (12.0-15.5); MEAN CORPUSCULAR HGB CONC 32.5 g/dL (32.0-36.0); MEAN CORPUSCULAR VOLUME 80 fl (80-97); PLATELET COUNT 399 10^3/uL (150-450); RED BLOOD COUNT 3.58 10^6/uL (3.72-5.28); RED CELL DISTRIBUTION WIDTH 21.5 % (11.5-14.0); WHITE BLOOD COUNT 20.8 10^3/uL (4.0-10.5)
[2018-05-21 06:26] LABS: BLOOD UREA NITROGEN 80 mg/dL (7-20); GLUCOSE 142 mg/dL (75-110); POTASSIUM 4.1 mmol/L (3.6-5.0)
[2018-05-21 06:32] LABS: CARBON DIOXIDE 23 mmol/L (22-30); CHLORIDE 102 mmol/L (98-107); SODIUM 145.1 mmol/L (137-145)
[2018-05-21 06:39] LABS: ANION GAP 20 (5-19)
[2018-05-21] MEDS ORDERED: FUROSEMIDE 80 MG TABLET PEG SCH (06:47)
[2018-05-21 06:56] LABS: ABSOLUTE LYMPHOCYTES# (MANUAL) 6.4 10^3/uL (0.5-4.7); ABSOLUTE MONOCYTES # (MANUAL) 0.6 10^3/uL (0.1-1.4); ABSOLUTE NEUTROPHILS# (MANUAL) 13.1 10^3/uL (1.7-8.2); BASOPHILS % (MANUAL) 0 % (0-2); EOSINOPHILS % (MANUAL) 3 % (0-6); LYMPHOCYTES % (MANUAL) 29 % (13-45); MONOCYTES % (MANUAL) 3 % (3-13); SEGMENTED NEUTROPHILS % (MAN) 63 % (42-78); TOTAL CELLS COUNTED 100
[2018-05-21 06:59] LABS: POIKILOCYTOSIS 1+
[2018-05-21 07:00] LABS: ANISOCYTOSIS 3+; OVALOCYTES SLIGHT; PLATELET COMMENT ADEQUATE; TARGET CELLS SLIGHT; TEAR DROP CELLS SLIGHT
--- NOTE | 2018-05-21 07:47 | PDOC PROGRESS REPORT ---
Subjective Progress Note for:: 05/21/18 Subjective:: pt is doing same no fever pt wbc is high d/w daughter on bed side Reason For Visit: CHRNIC RESPIRATORY FAILURE S/P TRACHEOSTOMY ON Physical Exam Vital Signs: Temp Pulse Resp BP Pulse Ox 98.8 F 78 20 112/56 L 100 05/21/18 03:17 05/21/18 04:40 05/21/18 04:40 05/21/18 03:17 05/21/18 04:40 Pulse Oximeter Continuous Start: 05/18/18 08: 48 Freq: RTQ4 Status: Active Document 05/21/18 04:40 SFL (Rec: 05/21/18 05:34 SFL [email or web address]) Pulse Oximetry Assessment Oxygen Saturation (92-100) 100 Oxygen Delivery Method Mechanical Ventilator Fraction of Inspired Oxygen (FIO2) 55 Equipment Usage Equipment in Use Continuous SpO2 Machine # 9 Intake & Output 05/20/18 05/21/18 05/22/18 06:59 06:59 06:59 Intake Total 1408 1140 Output Total 2450 1100 Balance -1042 40 Weight 72.1 kg 72.3 kg Physical Exam: on vent General appearance: PRESENT: no acute distress Eye exam: PRESENT: PERRLA Mouth exam: PRESENT: neck supple Respiratory exam: PRESENT: decreased breath sounds Cardiovascular exam: PRESENT: +S1, +S2 GI/Abdominal exam: PRESENT: normal bowel sounds, soft Extremities exam: ABSENT: pedal edema Results Laboratory Results: 05/21/18 04:50 05/21/18 04:50 05/20/18 05/20/18 05/20/18 13:50 13:50 15:15 WBC 12.7 H RBC 3.89 Hgb 10.3 L Hct 31.2 L MCV 80 MCH 26.6 L MCHC 33.1 RDW 21.3 H Plt Count 470 H Seg Neutrophils % 68.5 Lymphocytes % 20.5 Monocytes % 6.2 Eosinophils % 4.0 Basophils % 0.8 Absolute Neutrophils 8.7 H Absolute Lymphocytes 2.6 Absolute Monocytes 0.8 Absolute Eosinophils 0.5 Absolute Basophils 0.1 Carbonic Acid 1.14 HCO3/H2CO3 Ratio 23:1 ABG pH 7.47 H ABG pCO2 37.9 ABG pO2 63.0 L ABG HCO3 27.0 H ABG O2 Saturation 93.5 L ABG Base Excess 3.2 FiO2 65% Sodium 145.0 Potassium 3.9 Chloride 101 Carbon Dioxide 25 Anion Gap 19 BUN 78 H Creatinine 1.32 H Est GFR ( Amer) 47 L Est GFR (Non-Af Amer) 39 L Glucose 197 H Calcium 11.3 H 05/21/18 05/21/18 04:50 04:50 WBC 20.8 H RBC 3.58 L Hgb 9.3 L Hct 28.6 L MCV 80 MCH 26.0 L MCHC 32.5 RDW 21.5 H Plt Count 399 Seg Neutrophils % Not Reportable Lymphocytes % Not Reportable Monocytes % Not Reportable Eosinophils % Not Reportable Basophils % Not Reportable Absolute Neutrophils Not Reportable Absolute Lymphocytes Not Reportable Absolute Monocytes Not Reportable Absolute Eosinophils Not Reportable Absolute Basophils Not Reportable Carbonic Acid HCO3/H2CO3 Ratio ABG pH ABG pCO2 ABG pO2 ABG HCO3 ABG O2 Saturation ABG Base Excess FiO2 Sodium 145.1 H Potassium 4.1 Chloride 102 Carbon Dioxide 23 Anion Gap 20 H BUN 80 H Creatinine 1.54 H Est GFR ( Amer) 39 L Est GFR (Non-Af Amer) 32 L Glucose 142 H Calcium 11.0 H 05/18/18 14:20 Tracheal Aspirate Gram Stain - Final 05/18/18 14:20 Tracheal Aspirate Sputum Culture - Final Pseudomonas Aeruginosa Corynebacterium Striatum Normal Nan Absent Impressions: Chest X-Ray 05/20/18 14:00 IMPRESSION: Stable radiographic appearance of the chest demonstrating complete opacification of the right hemithorax. Assessment & Plan - Diagnosis (1) Acute and chronic respiratory failure, unspecified whether with hypoxia or hypercapnia Qualifiers: Respiratory failure complication: hypoxia Qualified Code(s): J96.21 - Acute and chronic respiratory failure with hypoxia Is this a current diagnosis for this admission?: Yes (2) CHF (congestive heart failure) Qualifiers: Heart failure type: diastolic Heart failure chronicity: chronic Qualified Code(s): I50.32 - Chronic diastolic (congestive) heart failure Is this a current diagnosis for this admission?: Yes (3) COPD (chronic obstructive pulmonary disease) Qualifiers: COPD type: unspecified COPD Qualified Code(s): J44.9 - Chronic obstructive pulmonary disease, unspecified Is this a current diagnosis for this admission?: Yes (4) Pressure ulcer of left heel, stage 2 Is this a current diagnosis for this admission?: Yes (5) Dementia Qualifiers: Dementia type: unspecified type Dementia behavioral disturbance: without behavioral disturbance Qualified Code(s): F03.90 - Unspecified dementia without behavioral disturbance Is this a current diagnosis for this admission?: Yes - Time Time Spent with patient: 25-34 minutes Medications reviewed and adjusted accordingly: Yes Anticipated discharge: Other Within: Other - Inpatient Certification Medical Necessity: Need Close Monitoring Due to Risk of Patient Decompensation, Need for IV Antibiotics Post Hospital Care: D/C Performance Manager Documentation - Plan Summary Plan Summary: cut down lasix 40 mg bid due to worsening renal function cont f/u with pulmonary
[2018-05-21] MEDS: BUDESONIDE NEB 0.5 MG/2 ML AMPUL NEB SCH ×2 (08:10→19:45)
--- NOTE | 2018-05-21 08:37 | CONSULTATION REPORT E ---
Consultation Report NAME: BRIANA BRADY : 1935 AGE: 82Y DATE: 05/20/2018 303 A TO: JOCELYN MIRANDA M.D. FROM: BAKARI BECKER M.D. Requesting Physician HISTORY OF PRESENT ILLNESS: Patient is an 82-year-old female who just transferred back from [facility], because the service was not available here. We did not have ENT or Surgery who would change the tracheostomy tube. Consulted because patient is still on ventilator. Today, he had a chest x-ray showing white opacification involving the entire right lung, suggesting massive atelectasis, possibly due to aspiration of gastric contents or mucus plugs. There was no fever noted over the last 24 hours. The T-max was 98.8. Patient was receiving Xopenex nebulizer treatment p.r.n. every 6 hours and budesonide nebulizer treatments twice a day. PAST MEDICAL HISTORY: 1. Congestive heart failure. 2. Hyperlipidemia. 3. Hypertension. 4. Peripheral vascular disease. 5. Pulmonary embolism. 6. COPD. 7. Pneumonia, aspiration. 8. Diabetes mellitus. 9. Dementia. 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 PAST SURGICAL HISTORY: 1. Orthopedic surgery, shoulder. 2. 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 3. Right knee and right hip replacement. SOCIAL HISTORY: Former smoker. Denies alcohol abuse or illicit drug use. ALLERGIES: 2. IODINE. 3. ZOCOR. PHYSICAL EXAMINATION: VITAL SIGNS: The patient appeared very sleepy, afebrile, not in apparent respiratory distress, with a blood pressure of 143/59, heart rate of 79, saturations 91% on FiO2 of 65, pressure support of 10, PEEP of 5, tidal volume 460 and ventilator rate of 20. Height is 5 foot 7 and an ideal body weight of 67 kg. EYES: No jaundice or pallor. EARS, NOSE AND THROAT: No ear drainage. No nasal discharge. CHEST AND LUNGS: Decreased breath sounds, right lung. No coarse crackles. No wheezing, no rhonchi noted. CARDIOVASCULAR: S1, S2 distant. No murmur. ABDOMEN: Flabby. Positive bowel sounds. Soft, nondistended. EXTREMITIES: No joint swelling or cellulitis. SKIN: Patient nose has a lesion which is positive for skin cancer. LABORATORY DATA: CBC done yesterday showed white count of 13.1, hemoglobin of 9.6, hematocrit 29.7, platelets of 485,000. Chemistry done yesterday showed sodium 142, potassium 4.5, chloride 98, CO2 of 34. BUN 17, creatinine is 1.46. SGOT is 59 and SGPT is 63. ASSESSMENT: 1. ACUTE ON CHRONIC RESPIRATORY FAILURE REQUIRING INVASIVE MECHANICAL VENTILATION. 2. MASSIVE ATELECTASIS, RIGHT, PROBABLY DUE TO MUCUS PLUG OR ASPIRATION OF GASTRIC CONTENTS. Patient may need flexible bronchoscopy and bronchoscopic removal of endobronchial secretions, mucus plugs and gastric contents. However, the tracheostomy size is 6 shiley. Patient was previously sent to [facility], about 2 weeks ago for a tracheostomy change, so if the patient has recurrence of the massive atelectasis or mucus plug, we can easily bronch the patient. However, the tracheostomy change was not done. Patient was sent back about 2 days ago for further management. Currently, the patient is still a FULL CODE, and family insists that he is still a FULL CODE. Discussion about the DNR was performed before, but the patient's family wants to keep the FULL CODE status. Will consult Surgery for possible exchange of the tracheostomy tube to a size 8. ENT service under Dr. Keanu Walsh is not available and he will not be available until 3 days later. We consulted a surgicalist, who will determine whether we can change the tracheostomy site. 3. PNEUMONIA, MOST LIKELY PSEUDOMONAS. MRSA may be less likely. Last tracheal aspirate culture showed positive for gram-negative organisms. Will start patient on zosyn 3.375 now and readjust it to the renal dose. Will do a repeat chest x-ray this afternoon. Last chest x-ray was done at midnight last night. Will do a CBC and chemistry . Will change the ventilator setting to SIMV with a tidal volume of 450 from 360, a rate of 20 and a pressure support of 10. FiO2 of 65% to be titrated to get saturation 91% to 94%. Instructed nurse to suction patient more frequently. DICTATING PHYSICIAN: JOCELYN MIRANDA MD,PURNIMA,MPH [id number] [id number] PHY#: [id number] ID: [id number] JOB#: [id number] ACCT: [id number] cc:JOCELYN MIRANDA M.D. > ILDA
--- NOTE | 2018-05-21 09:00 | RADIOLOGY REPORT (SQ) ---
EXAM DESCRIPTION: CHEST SINGLE VIEW COMPLETED DATE/TIME: 05/21/2018 8:48 am REASON FOR STUDY: Pneumonia COMPARISON: 05/20/2018. EXAM PARAMETERS: NUMBER OF VIEWS: One view. TECHNIQUE: Single frontal radiographic view of the chest acquired. RADIATION DOSE: NA LIMITATIONS: None. FINDINGS: LUNGS AND PLEURA: There is considerable improved aeration in the right lung with residual faint density in the right lower lung field. Patchy density in the left lung base. MEDIASTINUM AND HILAR STRUCTURES: No masses. Contour normal. HEART AND VASCULAR STRUCTURES: Heart normal in size. Normal vasculature. BONES: No acute findings. HARDWARE: Tracheostomy tube. OTHER: No other significant finding. IMPRESSION: CONSIDERABLE IMPROVED AERATION IN THE RIGHT LUNG. RESIDUAL ATELECTASIS AND/OR INFILTRAT E IN THE RIGHT LUNG BASE. POSSIBLE PLEURAL EFFUSION. TECHNICAL DOCUMENTATION: JOB ID: [id number] [employer]- All Rights Reserved Reading location - IP/workstation name: [email or web address]
[2018-05-21] MEDS: PREDNISONE 10 MG TABLET PEG SCH (10:11)
[2018-05-21] MEDS: ENOXAPARIN SODIUM INJ 40 MG/0.4 ML DISP.SYRIN SUBCUT SCH (10:11)
[2018-05-21] MEDS: ASCORBIC ACID 500 MG TABLET PEG SCH (10:11)
[2018-05-21] MEDS: FUROSEMIDE 40 MG TABLET PO SCH ×2 (10:12→18:06)
[2018-05-21] MEDS: AMLODIPINE BESYLATE 10 MG TABLET PEG SCH (10:12)
[2018-05-21] MEDS: LISINOPRIL 10 MG TABLET PEG SCH (10:12)
[2018-05-21] MEDS: MULTIVITAMIN ORAL LIQUID 60 ML PO SCH (10:13)
[2018-05-21] MEDS: INSULIN DETEMIR 100 UNIT/ML 3 ML PEN SUBCUT SCH (10:15)
[2018-05-21] MEDS: ASPIRIN 81 MG TABLET, CHEWABLE PO SCH (10:18)
[2018-05-21] MEDS: SENNOSIDES/DOCUSATE 8.6-50 MG 1 EACH TABLET PEG SCH (10:39)
[2018-05-21] MEDS: ERYTHROMYCIN 0.5% OPH OINTMENT 3.5 GM TUBE OU SCH ×2 (11:17→18:07)
[2018-05-21 15:43] LABS: ABSOLUTE BASOPHILS # (AUTO) 0.1 10^3/uL (0.0-0.2); ABSOLUTE EOSINOPHILS # (AUTO) 0.2 10^3/uL (0.0-0.6); ABSOLUTE LYMPHOCYTES (AUTO) 2.7 10^3/uL (0.5-4.7); ABSOLUTE NEUT (AUTO) 9.8 10^3/uL (1.7-8.2); BASOPHILS % (AUTO) 0.7 % (0-2); EOSINOPHILS % (AUTO) 1.8 % (0-6); HEMATOCRIT 28.6 % (36.0-47.0); HEMOGLOBIN 9.4 g/dL (12.0-15.5); LYMPHOCYTES % (AUTO) 19.4 % (13-45); MEAN CORPUSCULAR HEMOGLOBIN 26.3 pg (27.0-33.4); MEAN CORPUSCULAR HGB CONC 32.8 g/dL (32.0-36.0); MEAN CORPUSCULAR VOLUME 80 fl (80-97); MONOCYTES % (AUTO) 7.1 % (3-13); PLATELET COUNT 433 10^3/uL (150-450); RED BLOOD COUNT 3.55 10^6/uL (3.72-5.28); RED CELL DISTRIBUTION WIDTH 21.1 % (11.5-14.0); TOTAL CELLS COUNTED % (AUTO) 100 %; WHITE BLOOD COUNT 13.8 10^3/uL (4.0-10.5)
--- NOTE | 2018-05-21 19:51 | PROGRESS NOTE E ---
Progress Note NAME: BRIANA BRADY : 1935 AGE: 82Y DATE: 05/21/2018 ROOM: 303 SUBJECTIVE: Patient is an 82-year-old female who was transferred from [facility] 3 days ago. Treated for pneumonia, bilateral, and pleural effusion. Sent to [facility] for tracheostomy change from size 6.5 to 8, but it was not done. Came back here 2 to 3 days ago. Yesterday, saw the patient with complete opacification involving the entire right lung. Surgeon was consulted for possible tracheostomy change. Patient was not seen yet by the surgical department. Patient was given nebulizer treatment. Instructed nurses to suction the patient more frequently, then given Xopenex 1.25 mg plus Ativan 0.5 mg every 6 hours. Started with Zosyn 3.375 g IV piggyback every 6 hours. Sputum culture was sent, showing Pseudomonas aeruginosa and carinii bacterium. She was resistant to Levaquin. No fever spikes in the last 24 hours. No vomiting and no diarrhea. OBJECTIVE: VITAL SIGNS: Patient is awake, sleepy, afebrile, not in apparent respiratory distress, with a temperature of 98.2, with a T-max of 99.5, heart rate is 73, respiratory rate is 20, saturation is 97%, FiO2 is 40%. EYES: No jaundice or pallor. EARS, NOSE AND THROAT: No ear drainage noted. No nasal discharge. Tracheostomy tube is in place. CHEST AND LUNGS: Fine rales and crackles bibasilarly. No wheezing noted. CARDIOVASCULAR: S1, S2 distant. No murmur, no regurg. ABDOMEN: Flabby. Positive bowel sounds. Soft, nondistended, nontender. EXTREMITIES: No joint swelling or cellulitis. Current vent settings with tracheostomy tube are SIMV rate of 20, tidal volume 450, pressure support of 10, PEEP of 5 and FiO2 of 40%. LABORATORY DATA: CBC done today showed white count of 28.8, hemoglobin is 9.3, hematocrit is 28.6 and platelet count is 299,000. Chemistry done today showed sodium of 145.1, potassium 4.1, chloride 102, CO2 is 23, BUN is 20, creatinine is 1.54, glucose 142. Calcium is 11. ASSESSMENT: 1. ACUTE ON CHRONIC RESPIRATORY FAILURE REQUIRING INVASIVE MECHANICAL VENTILATION, CURRENTLY STABLE. Currently on tracheostomy with ventilator with SIMV rate of 20, tidal volume of 450, pressure support 10 and PEEP of 5, FiO2 of 40%, saturating about 97%. 2. PNEUMONIA, BIBASILARLY, IMPROVING. 3. LEUKOCYTOSIS. This would be transient. Will repeat the CBC later today. 4. PNEUMONIA, BILATERALLY. Continue IV Zosyn. Will consider repeating sputum culture. Patient is coughing up yellow sputum. 5. CHRONIC PHYSICAL DEBILITATION. 6. COPD, SEVERE. PLAN/RECOMMENDATIONS: 1. Will continue invasive mechanical ventilatory support. Will decrease FiO2 to lower levels, titrating FiO2 to get saturation to 91% to 97%. 2. Continue Zosyn antibiotic. 3. Continue nebulizer treatment every 6 hours, Xopenex and Atrovent. 4. Will consult web content & social media manager for long-term care facility placement. DICTATING PHYSICIAN: JOCELYN MIRANDA MD,PURNIMA,MPH [id number] [id number] PHY#: [id number] ID: [id number] JOB#: [id number] ACCT: [id number] cc: > MTDD
[2018-05-22] MEDS: IPRATROPIUM/ALBUTEROL 0.5-2.5 MG/3 ML AMPUL NEB SCH ×6 (00:16→19:28)
[2018-05-22] MEDS: PIPERACILLIN SODIUM/TAZOBACTAM 2.25 GM in NORMAL SALINE 50 ML IV SCH ×4 (01:52→17:56)
[2018-05-22] MEDS: TOBRAMYCIN SULFATE/DEXAMETH OPH SUSP 2.5 ML OU SCH ×2 (05:04→14:53)
[2018-05-22] MEDS: LANSOPRAZOLE 30 MG TAB.RAP.DR PO SCH (05:04)
[2018-05-22 05:16] LABS: ABSOLUTE BASOPHILS # (AUTO) 0.2 10^3/uL (0.0-0.2); ABSOLUTE EOSINOPHILS # (AUTO) 0.9 10^3/uL (0.0-0.6); ABSOLUTE LYMPHOCYTES (AUTO) 6.3 10^3/uL (0.5-4.7); ABSOLUTE MONOCYTES (AUTO) 1.5 10^3/uL (0.1-1.4); ABSOLUTE NEUT (AUTO) 10.5 10^3/uL (1.7-8.2); BASOPHILS % (AUTO) 0.8 % (0-2); EOSINOPHILS % (AUTO) 4.5 % (0-6); HEMATOCRIT 29.4 % (36.0-47.0); HEMOGLOBIN 9.6 g/dL (12.0-15.5); LYMPHOCYTES % (AUTO) 32.4 % (13-45); MEAN CORPUSCULAR HEMOGLOBIN 26.3 pg (27.0-33.4); MEAN CORPUSCULAR HGB CONC 32.6 g/dL (32.0-36.0); MEAN CORPUSCULAR VOLUME 81 fl (80-97); MONOCYTES % (AUTO) 7.8 % (3-13); PLATELET COUNT 410 10^3/uL (150-450); RED BLOOD COUNT 3.64 10^6/uL (3.72-5.28); RED CELL DISTRIBUTION WIDTH 21.6 % (11.5-14.0); SEGMENTED NEUTROPHILS % (AUTO) 54.5 % (42-78); TOTAL CELLS COUNTED % (AUTO) 100 %; WHITE BLOOD COUNT 19.3 10^3/uL (4.0-10.5)
[2018-05-22 05:32] LABS: ANION GAP 19 (5-19); BLOOD UREA NITROGEN 87 mg/dL (7-20); CALCIUM 11.1 mg/dL (8.4-10.2); CARBON DIOXIDE 22 mmol/L (22-30); CHLORIDE 106 mmol/L (98-107); GLUCOSE 203 mg/dL (75-110); POTASSIUM 3.8 mmol/L (3.6-5.0); SODIUM 147.3 mmol/L (137-145)
[2018-05-22] MEDS: INSULIN LISPRO 100 UNIT/ML 3 ML VIAL SUBCUT PRN ×3 (05:47→19:02)
[2018-05-22] MEDS: BUDESONIDE NEB 0.5 MG/2 ML AMPUL NEB SCH ×2 (07:47→19:28)
[2018-05-22] MEDS: ENOXAPARIN SODIUM INJ 40 MG/0.4 ML DISP.SYRIN SUBCUT SCH (13:02)
[2018-05-22] MEDS: FUROSEMIDE 40 MG TABLET PO SCH ×2 (13:03→17:56)
[2018-05-22] MEDS: LISINOPRIL 10 MG TABLET PEG SCH (13:03)
[2018-05-22] MEDS: MULTIVITAMIN ORAL LIQUID 60 ML PO SCH (13:04)
[2018-05-22] MEDS: AMLODIPINE BESYLATE 10 MG TABLET PEG SCH (13:04)
[2018-05-22] MEDS: ERYTHROMYCIN 0.5% OPH OINTMENT 3.5 GM TUBE OU SCH ×2 (13:05→17:56)
[2018-05-22] MEDS: PREDNISONE 5 MG TABLET PEG SCH (13:05)
[2018-05-22] MEDS: INSULIN DETEMIR 100 UNIT/ML 3 ML PEN SUBCUT SCH (13:06)
[2018-05-22] MEDS: ASPIRIN 81 MG TABLET, CHEWABLE PO SCH (13:14)
[2018-05-22] MEDS: SENNOSIDES/DOCUSATE 8.6-50 MG 1 EACH TABLET PEG SCH (14:53)
[2018-05-22] MEDS: ASCORBIC ACID 500 MG TABLET PEG SCH (17:56)
[2018-05-22] MEDS ORDERED: VANCOMYCIN HCL INJ 1000 MG VIAL IV SCH (19:45)
[2018-05-22] MEDS: MOXIFLOXACIN HCL 0.5% OPH SOLN 3 ML OU SCH (20:50)
--- NOTE | 2018-05-22 20:59 | PDOC PROGRESS REPORT ---
Subjective Progress Note for:: 05/22/18 Subjective:: Patient was transferred back from [facility] after 30 days of inpatient care at [facility]. The nurses stated that patient is refusing care, she has been inpatient care continuously for the last 6 months ,she was in [facility], [facility] and [facility]. Patient desire palliative care and hospice care at this time, it seems she is incapable of independent living in residence or even the long term, she will always come back to acute care setting because she has multiple comorbid conditions Reason For Visit: CHRNIC RESPIRATORY FAILURE S/P TRACHEOSTOMY ON Physical Exam Vital Signs: Temp Pulse Resp BP Pulse Ox 98.3 F 86 20 143/57 H 98 05/22/18 19:24 05/22/18 19:28 05/22/18 19:28 05/22/18 19:24 05/22/18 19:28 Pulse Oximeter Continuous Start: 05/18/18 08: 48 Freq: RTQ4 Status: Active Document 05/22/18 19:28 EST (Rec: 05/22/18 19:42 EST [email or web address]) Pulse Oximetry Assessment Oxygen Saturation (92-100) 98 Oxygen Delivery Method Mechanical Ventilator Fraction of Inspired Oxygen (FIO2) 30 Equipment Usage Equipment in Use Continuous SpO2 Machine # 9 Intake & Output 05/21/18 05/22/18 05/23/18 06:59 06:59 06:59 Intake Total 1140 1398 681 Output Total 1100 1030 300 Balance 40 368 381 Weight 72.3 kg 71.1 kg General appearance: PRESENT: thin Eye exam: PRESENT: PERRLA Respiratory exam: PRESENT: decreased breath sounds Cardiovascular exam: PRESENT: +S1, +S2 GI/Abdominal exam: PRESENT: soft Neurological exam: PRESENT: alert Results Laboratory Results: 05/22/18 04:35 05/22/18 04:35 05/22/18 05/22/18 04:35 04:35 WBC 19.3 H RBC 3.64 L Hgb 9.6 L Hct 29.4 L MCV 81 MCH 26.3 L MCHC 32.6 RDW 21.6 H Plt Count 410 Seg Neutrophils % 54.5 Lymphocytes % 32.4 Monocytes % 7.8 Eosinophils % 4.5 Basophils % 0.8 Absolute Neutrophils 10.5 H Absolute Lymphocytes 6.3 H Absolute Monocytes 1.5 H Absolute Eosinophils 0.9 H Absolute Basophils 0.2 Sodium 147.3 H Potassium 3.8 Chloride 106 Carbon Dioxide 22 Anion Gap 19 BUN 87 H Creatinine 1.50 H Est GFR ( Amer) 40 L Est GFR (Non-Af Amer) 33 L Glucose 203 H Calcium 11.1 H Impressions: Chest X-Ray 05/21/18 00:00 IMPRESSION: CONSIDERABLE IMPROVED AERATION IN THE RIGHT LUNG. RESIDUAL ATELECTASIS AND/OR INFILTRATE IN THE RIGHT LUNG BASE. POSSIBLE PLEURAL EFFUSION. Assessment & Plan - Diagnosis (1) Acute respiratory failure Qualifiers: Respiratory failure complication: hypoxia and hypercapnia Qualified Code(s) : J96.01 - Acute respiratory failure with hypoxia; J96.02 - Acute respiratory failure with hypercapnia; J96.02 - Acute respiratory failure with hypercapnia; J96.02 - Acute respiratory failure with hypercapnia Is this a current diagnosis for this admission?: Yes Plan: Palliative care and hospice care consult
[2018-05-22] MEDS: VANCOMYCIN HCL 1,000 MG in DEXTROSE 5%-WATER 250 ML IV SCH (22:55)
[2018-05-23] MEDS: IPRATROPIUM/ALBUTEROL 0.5-2.5 MG/3 ML AMPUL NEB SCH ×7 (00:05→23:37)
[2018-05-23] MEDS: PIPERACILLIN SODIUM/TAZOBACTAM 2.25 GM in NORMAL SALINE 50 ML IV SCH ×4 (00:42→17:20)
[2018-05-23] MEDS: LANSOPRAZOLE 30 MG TAB.RAP.DR PO SCH (05:26)
[2018-05-23 06:25] LABS: ABSOLUTE BASOPHILS # (AUTO) 0.2 10^3/uL (0.0-0.2); ABSOLUTE LYMPHOCYTES (AUTO) 5.1 10^3/uL (0.5-4.7); ABSOLUTE MONOCYTES (AUTO) 1.5 10^3/uL (0.1-1.4); ABSOLUTE NEUT (AUTO) 7.8 10^3/uL (1.7-8.2); EOSINOPHILS % (AUTO) 6.6 % (0-6); HEMATOCRIT 28.9 % (36.0-47.0); HEMOGLOBIN 9.3 g/dL (12.0-15.5); LYMPHOCYTES % (AUTO) 32.9 % (13-45); MEAN CORPUSCULAR HEMOGLOBIN 25.9 pg (27.0-33.4); MEAN CORPUSCULAR HGB CONC 32.3 g/dL (32.0-36.0); MEAN CORPUSCULAR VOLUME 80 fl (80-97); MONOCYTES % (AUTO) 9.6 % (3-13); PLATELET COUNT 434 10^3/uL (150-450); RED BLOOD COUNT 3.61 10^6/uL (3.72-5.28); RED CELL DISTRIBUTION WIDTH 21.8 % (11.5-14.0); SEGMENTED NEUTROPHILS % (AUTO) 49.9 % (42-78); TOTAL CELLS COUNTED % (AUTO) 100 %; WHITE BLOOD COUNT 15.6 10^3/uL (4.0-10.5)
[2018-05-23 07:03] LABS: ALANINE AMINOTRANSFERASE 32 U/L (9-52); ALKALINE PHOSPHATASE 343 U/L (38-126); ANION GAP 19 (5-19); ASPARTATE AMINO TRANSFERASE 33 U/L (14-36); BILIRUBIN,DIRECT 0.6 mg/dL (0.0-0.4); BILIRUBIN,TOTAL 0.6 mg/dL (0.2-1.3); BLOOD UREA NITROGEN 87 mg/dL (7-20); CALCIUM 10.8 mg/dL (8.4-10.2); CARBON DIOXIDE 22 mmol/L (22-30); CHLORIDE 106 mmol/L (98-107); GLUCOSE 204 mg/dL (75-110); POTASSIUM 3.8 mmol/L (3.6-5.0); SODIUM 147.3 mmol/L (137-145); TOTAL PROTEIN 8.9 g/dL (6.3-8.2)
[2018-05-23] MEDS: BUDESONIDE NEB 0.5 MG/2 ML AMPUL NEB SCH ×2 (07:35→20:06)
[2018-05-23 07:59] LABS: PHOSPHORUS 4.2 mg/dL (2.5-4.5)
--- NOTE | 2018-05-23 08:26 | PROGRESS NOTE E ---
Progress Note NAME: BRIANA BRADY : 1935 AGE: 82Y DATE: 05/22/2018 ROOM: 303 SUBJECTIVE: Patient is an 82-year-old female who has been recently transferred from [facility], treated for pneumonia for a month. The tracheostomy change to 8 was not done. She came in with opacification involving the entire right lung. The patient was given nebulizer, restarted with antibiotics and frequent suctioning. The next day, chest x-ray was done re-aeration of the right lung. The patient still has some yellow-green tracheal secretions. There were no fever spikes overnight. The patient has been stable over the last 24 hours. feeder worker power unit operator was consulted for possible long-term placement. Patient was told that it may not be feasible for her because she has been in the hospital continuously for the last 2 months. PHYSICAL EXAMINATION: GENERAL: Patient appeared awake and afebrile, not in apparent respiratory distress. VITAL SIGNS: Temperature 97.3 with a T-max of 99 degrees Fahrenheit, blood pressure 126/55, heart rate 84, respiratory rate 20, saturation is 98% on 30% FiO2, SIMV rate of 20, tidal volume of 450, pressure support 10, PEEP of 7. EYES: No jaundice or pallor. EARS, NOSE AND THROAT: No ear drainage noted. No nasal discharge. HEAD AND NECK: No scalp tenderness. Neck supple. CHEST AND LUNGS: No wheezing. No rhonchi. No coarse crackles. CARDIOVASCULAR: S1, S2 distinct. Normal rate, regular rhythm. ABDOMEN: Flabby, positive bowel sounds, soft, nondistended, nontender. EXTREMITIES: No joint swelling. No cellulitis. LABORATORY DATA: A CBC done today showed white count went down from 13.8 yesterday, hemoglobin is 9.6; hematocrit is 39.4; platelet count is 410. Chemistry showed sodium 147, potassium 3.8, chloride 106, CO2 is 22, BUN is 7, creatinine is 1.5, glucose is 203, calcium is 11.1. ASSESSMENT: 1. ACUTE ON CHRONIC RESPIRATORY FAILURE REQUIRING INVASIVE MECHANICAL VENTILATION, APPEARS TO BE STABLE STATUS POST TRACHEOSTOMY TUBE PLACEMENT. 2. PNEUMONIA, BILATERAL, RIGHT MORE THAN LEFT, APPEARS TO BE IMPROVING. 3. SEVERE COPD, CURRENTLY STABLE, NOT IN ACUTE EXACERBATION. 4. SEVERE LEUKOCYTOSIS, SUGGESTING AN ONGOING INFECTION, NOT COVERED BY CURRENT IV ANTIBIOTIC PRESUMING POSSIBLE MRSA INFECTION. PLAN AND RECOMMENDATIONS: 1. We will send a sputum culture again tonight. 2. We will star vancomycin 1 g IVPG back and will consult pharmacy to follow levels and adjust dose. 3. Continue IV Zosyn. 4. Continue nebulizer treatment every 6 hours and p.r.n. 5. Continue p.r.n. DVT prophylaxis. DICTATING PHYSICIAN: JOCELYN MIRANDA MD,PURNIMA,MPH [id number] [id number] PHY#: [id number] ID: [id number] JOB#: [id number] ACCT: [id number] cc: > MTDD
[2018-05-23] MEDS: INSULIN LISPRO 100 UNIT/ML 3 ML VIAL SUBCUT PRN ×3 (09:12→18:26)
[2018-05-23] MEDS: MULTIVITAMIN ORAL LIQUID 60 ML PO SCH (09:40)
[2018-05-23] MEDS: INSULIN DETEMIR 100 UNIT/ML 3 ML PEN SUBCUT SCH (09:40)
[2018-05-23] MEDS: ENOXAPARIN SODIUM INJ 40 MG/0.4 ML DISP.SYRIN SUBCUT SCH (09:41)
[2018-05-23] MEDS: AMLODIPINE BESYLATE 10 MG TABLET PEG SCH (09:42)
[2018-05-23] MEDS: LISINOPRIL 10 MG TABLET PEG SCH (09:42)
[2018-05-23] MEDS: PREDNISONE 5 MG TABLET PEG SCH (09:42)
[2018-05-23] MEDS: ASPIRIN 81 MG TABLET, CHEWABLE PO SCH (09:42)
[2018-05-23] MEDS: SENNOSIDES/DOCUSATE 8.6-50 MG 1 EACH TABLET PEG SCH (09:42)
[2018-05-23] MEDS: ASCORBIC ACID 500 MG TABLET PEG SCH (09:42)
[2018-05-23] MEDS: FUROSEMIDE 40 MG TABLET PO SCH ×2 (09:43→17:20)
[2018-05-23] MEDS: MOXIFLOXACIN HCL 0.5% OPH SOLN 3 ML OU SCH ×4 (09:43→17:25)
--- NOTE | 2018-05-23 10:01 | RADIOLOGY REPORT (SQ) ---
EXAM DESCRIPTION: CHEST SINGLE VIEW COMPLETED DATE/TIME: 05/23/2018 9:34 am REASON FOR STUDY: on ventilator; massive atelectasis COMPARISON: Chest film 05/21/2018, 05/20/2018, 04/16/2018 EXAM PARAMETERS: NUMBER OF VIEWS: One view. TECHNIQUE: Single frontal radiographic view of the chest acquired. RADIATION DOSE: NA LIMITATIONS: None. FINDINGS: LUNGS AND PLEURA: Left lung grossly clear. No gross left pleural effusion or pneumothorax . On the right side, a small persistent pleural effusion layers in the lower right hemithorax. There i s airspace disease in the right lower lobe and middle lobe, atelectasis versus pneumonia, stable. No right pneumothorax MEDIASTINUM AND HILAR STRUCTURES: No masses. Contour normal. HEART AND VASCULAR STRUCTURES: No gross cardiomegaly BONES: No acute findings. HARDWARE: Tracheostomy tube tip midtrachea. OTHER: No other significant finding. IMPRESSION: No change from 05/21/2018 0838 hours. TECHNICAL DOCUMENTATION: JOB ID: [id number] [email or web address] All Rights Reserved Reading location - IP/workstation name: [email or web address]
--- NOTE | 2018-05-23 21:11 | PROGRESS NOTE E ---
Progress Note NAME: BRIANA BRADY : 1935 AGE: 82Y DATE: 05/23/2018 ROOM: 303 SUBJECTIVE: The patient is an 82-year-old female who came in with acute on chronic respiratory failure requiring invasive mechanical ventilation. Status post tracheostomy tube. Came from [facility], stayed there for 4 weeks for pneumonia treatment. Transferred a few days ago with massive atelectasis right lung, which improved after 24 hours, following nebulizer treatment, frequent suctioning, and resumption of IV antibiotics. Currently, the patient appears stable. There is no fever spikes in the last 24 hours and tracheal tube secretions appear improved. No vomiting, no diarrhea. Tolerated tube feeding. OBJECTIVE: GENERAL: The patient is awake, afebrile, not in respiratory distress. VITAL SIGNS: Temperature 98.8, T-max 98.8. Heart rate 90, blood pressure 170/56, respirations 20, saturation is 100% on 30% FiO2. SIMV rate of 20, tidal volume 450, pressure support 10, PEEP of 5. minute ventilation 9. HEENT: Eyes: No conjunctival pallor. Ears, nose, and throat: No ear drainage, sore throats, or nasal discharge. HEAD/NECK: Scalp with no tenderness. Neck supple. CHEST/LUNGS: No wheezing, no rhonchi, no crackles. Tracheostomy tube is in place. No cellulitis. GASTROINTESTINAL: Abdomen flabby. Positive bowel sounds. Soft, nondistended. EXTREMITIES: No joint swelling or cellulitis. LABORATORY: CBC done today showed white count 15.6, down from 19.3. Hemoglobin 9.3, hematocrit 38.9, platelet count 434. Chemistry: Sodium 137, potassium 3.8, chloride 106, CO2 of 32, BUN 37, creatinine 1.74, glucose 204, calcium 10.8. ASSESSMENT: 1. ACUTE ON CHRONIC RESPIRATORY FAILURE. s/p tracheostomy. Requiring invasive mechanical ventilation. Appears to be stable and appears to be improving. Decreased endotracheal tube secretions. 2. PNEUMONIA. Positive for Methicillin resistant staphylococcus aureus and pseudomonas. Continue on IV Zosyn and IV vancomycin. Appears to be improving. 3. CHRONIC PHYSICAL DEBILITATION. PLAN: Will continue intravenous antibiotics for now, Zosyn and vancomycin. Continue the nebulizer treatment. Will optimize ventilator support. Consider discharging the patient to home with home health nurse. DICTATING PHYSICIAN: JOCELYN MIRANDA MD,PURNIMA,MPH [id number] [id number] PHY#: [id number] ID: [id number] JOB#: [id number] ACCT: [id number] cc: > MTDD
[2018-05-23] MEDS: VANCOMYCIN HCL 1,000 MG in DEXTROSE 5%-WATER 250 ML IV SCH (21:21)
[2018-05-23] MEDS: BACITRACIN OPH OINT 3.5 GM OU SCH (21:23)
--- NOTE | 2018-05-23 21:33 | PDOC PROGRESS REPORT ---
Subjective Progress Note for:: 05/23/18 Subjective:: Patient was seen by the bedside, she continues to refuse care, consultation was requested from hospice/palliative care, attempt was made to contact family with no success, prognosis remains poor in this patient Reason For Visit: CHRNIC RESPIRATORY FAILURE S/P TRACHEOSTOMY ON Physical Exam Vital Signs: Temp Pulse Resp BP Pulse Ox 98.2 F 92 19 143/66 H 100 05/23/18 19:26 05/23/18 19:26 05/23/18 19:26 05/23/18 19:26 05/23/18 19:26 Pulse Oximeter Continuous Start: 05/18/18 08: 48 Freq: RTQ4 Status: Active Document 05/23/18 16:09 [facility] (Rec: 05/23/18 17:36 [facility] [email or web address]) Pulse Oximetry Assessment Oxygen Saturation (92-100) 99 Oxygen Delivery Method Mechanical Ventilator Fraction of Inspired Oxygen (FIO2) 30 Equipment Usage Equipment in Use Continuous SpO2 Machine # [id number] Intake & Output 05/22/18 05/23/18 05/24/18 06:59 06:59 06:59 Intake Total 1398 1361 1200 Output Total 1030 1275 550 Balance 368 86 650 Weight 71.1 kg 72.2 kg General appearance: PRESENT: no acute distress Eye exam: PRESENT: PERRLA Respiratory exam: PRESENT: crackles Cardiovascular exam: PRESENT: +S1, +S2 GI/Abdominal exam: PRESENT: soft Neurological exam: PRESENT: alert Results Laboratory Results: 05/23/18 05:19 05/23/18 05:19 05/23/18 05/23/18 05/23/18 05:19 05:19 05:19 WBC 15.6 H RBC 3.61 L Hgb 9.3 L Hct 28.9 L MCV 80 MCH 25.9 L MCHC 32.3 RDW 21.8 H Plt Count 434 Seg Neutrophils % 49.9 Lymphocytes % 32.9 Monocytes % 9.6 Eosinophils % 6.6 H Basophils % 1.0 Absolute Neutrophils 7.8 Absolute Lymphocytes 5.1 H Absolute Monocytes 1.5 H Absolute Eosinophils 1.0 H Absolute Basophils 0.2 Sodium Cancelled 147.3 H Potassium Cancelled 3.8 Chloride Cancelled 106 Carbon Dioxide Cancelled 22 Anion Gap Cancelled 19 BUN Cancelled 87 H Creatinine Cancelled 1.74 H Est GFR ( Amer) Cancelled 34 L Est GFR (Non-Af Amer) Cancelled 28 L Glucose Cancelled 204 H Calcium Cancelled 10.8 H Phosphorus 4.2 Magnesium 2.9 H Total Bilirubin 0.6 AST 33 ALT 32 Alkaline Phosphatase 343 H Total Protein 8.9 H Albumin 4.0 05/21/18 10:45 [place] Catheter Urine Culture - Final Pseudomonas Aeruginosa Impressions: Chest X-Ray 05/23/18 05:00 IMPRESSION: No change from 05/21/2018 0838 hours. Assessment & Plan - Diagnosis (1) Acute respiratory failure Qualifiers: Respiratory failure complication: hypoxia and hypercapnia Qualified Code(s) : J96.01 - Acute respiratory failure with hypoxia; J96.02 - Acute respiratory failure with hypercapnia; J96.02 - Acute respiratory failure with hypercapnia; J96.02 - Acute respiratory failure with hypercapnia Is this a current diagnosis for this admission?: Yes (2) MRSA pneumonia Qualifiers: Laterality: unspecified laterality Lung location: unspecified part of lung Qualified Code(s): J15.212 - Pneumonia due to Methicillin resistant Staphylococcus aureus Is this a current diagnosis for this admission?: Yes (3) COPD (chronic obstructive pulmonary disease) Qualifiers: COPD type: unspecified COPD Qualified Code(s): J44.9 - Chronic obstructive pulmonary disease, unspecified Is this a current diagnosis for this admission?: Yes
[2018-05-24] MEDS: PIPERACILLIN SODIUM/TAZOBACTAM 2.25 GM in NORMAL SALINE 50 ML IV SCH ×5 (00:35→23:49)
[2018-05-24] MEDS: INSULIN LISPRO 100 UNIT/ML 3 ML VIAL SUBCUT PRN ×3 (00:51→18:15)
[2018-05-24] MEDS: ONDANSETRON HCL 8 MG TABLET PEG PRN (00:51)
[2018-05-24] MEDS: IPRATROPIUM/ALBUTEROL 0.5-2.5 MG/3 ML AMPUL NEB SCH ×5 (04:15→19:42)
[2018-05-24] MEDS: LANSOPRAZOLE 30 MG TAB.RAP.DR PO SCH (05:14)
[2018-05-24 06:08] LABS: ANION GAP 18 (5-19); BLOOD UREA NITROGEN 80 mg/dL (7-20); CALCIUM 10.8 mg/dL (8.4-10.2); CARBON DIOXIDE 20 mmol/L (22-30); CHLORIDE 109 mmol/L (98-107); GLUCOSE 166 mg/dL (75-110); POTASSIUM 3.7 mmol/L (3.6-5.0); SODIUM 147.2 mmol/L (137-145)
[2018-05-24] MEDS: BUDESONIDE NEB 0.5 MG/2 ML AMPUL NEB SCH ×2 (07:44→19:42)
[2018-05-24] MEDS: FUROSEMIDE 40 MG TABLET PO SCH ×2 (09:35→18:07)
[2018-05-24] MEDS: ASCORBIC ACID 500 MG TABLET PEG SCH (09:35)
[2018-05-24] MEDS: SENNOSIDES/DOCUSATE 8.6-50 MG 1 EACH TABLET PEG SCH (09:35)
[2018-05-24] MEDS: AMLODIPINE BESYLATE 10 MG TABLET PEG SCH (09:35)
[2018-05-24] MEDS: LISINOPRIL 10 MG TABLET PEG SCH (09:35)
[2018-05-24] MEDS: INSULIN DETEMIR 100 UNIT/ML 3 ML PEN SUBCUT SCH (09:36)
[2018-05-24] MEDS: PREDNISONE 5 MG TABLET PEG SCH (09:36)
[2018-05-24] MEDS: MULTIVITAMIN ORAL LIQUID 60 ML PO SCH (09:37)
[2018-05-24] MEDS: BACITRACIN OPH OINT 3.5 GM OU SCH ×2 (09:39→21:44)
[2018-05-24] MEDS: MOXIFLOXACIN HCL 0.5% OPH SOLN 3 ML OU SCH ×3 (09:40→18:08)
[2018-05-24] MEDS: ASPIRIN 81 MG TABLET, CHEWABLE PO SCH (09:41)
[2018-05-24] MEDS: ENOXAPARIN SODIUM INJ 30 MG/0.3 ML DISP.SYRIN SUBCUT SCH (09:43)
--- NOTE | 2018-05-24 17:54 | PDOC PROGRESS REPORT ---
Subjective Progress Note for:: 05/24/18 Subjective:: Patient daughter insisted that her mother should continue to receive IV antibiotic, she has been on IV antibiotic for the last 6 months for the same organism Pseudomonas, MRSA etc. The patient continues to refuse care but patient daughter refused to transfer care to hospice. Hopefully we can discharge patient in the next 2 days back to home with home health care, overall condition remains poor this patient. Patient has daughter believed that her mother is refusing care because she has not took Namenda. I had a long discussion with this patient's daughter and that will be the last discussion with the daughter regarding hospice/palliative care. I have made reasonable attempt to get transferred to hospice care but patient's daughter continued to refuse despite the fact that patient's condition is not improving if anything is getting worse. She has consistently been in the acute care setting versus long-term acute care facility. She is not a candidate for transfer to long-term acute care facility because she has to be out of acute care setting for 60 days which has not been the case for this patient Reason For Visit: CHRNIC RESPIRATORY FAILURE S/P TRACHEOSTOMY ON Physical Exam Vital Signs: Temp Pulse Resp BP Pulse Ox 98.5 F 91 20 145/62 H 98 05/24/18 14:48 05/24/18 14:48 05/24/18 14:48 05/24/18 14:48 05/24/18 14:48 Pulse Oximeter Continuous Start: 05/18/18 08: 48 Freq: RTQ4 Status: Active Document 05/24/18 11:41 TPO (Rec: 05/24/18 11:50 [facility]PO [email or web address]) Pulse Oximetry Assessment Oxygen Saturation (92-100) 100 Oxygen Delivery Method Mechanical Ventilator Fraction of Inspired Oxygen (FIO2) 30 Equipment Usage Equipment in Use Continuous SpO2 Machine # 9 Intake & Output 05/23/18 05/24/18 05/25/18 06:59 06:59 06:59 Intake Total 1361 2213 220 Output Total 1275 1225 850 Balance 86 988 -919 Weight 72.2 kg 72.4 kg General appearance: PRESENT: no acute distress Respiratory exam: PRESENT: rhonchi Cardiovascular exam: PRESENT: +S1, +S2 GI/Abdominal exam: PRESENT: soft Neurological exam: PRESENT: alert Results Laboratory Results: 05/23/18 05:19 05/24/18 05:05 05/24/18 05:05 Sodium 147.2 H Potassium 3.7 Chloride 109 H Carbon Dioxide 20 L Anion Gap 18 BUN 80 H Creatinine 1.64 H Est GFR ( Amer) 36 L Est GFR (Non-Af Amer) 30 L Glucose 166 H Calcium 10.8 H Impressions: Chest X-Ray 05/23/18 05:00 IMPRESSION: No change from 05/21/2018 0838 hours. Assessment & Plan - Diagnosis (1) Acute respiratory failure Qualifiers: Respiratory failure complication: hypoxia and hypercapnia Qualified Code(s) : J96.01 - Acute respiratory failure with hypoxia; J96.02 - Acute respiratory failure with hypercapnia; J96.02 - Acute respiratory failure with hypercapnia; J96.02 - Acute respiratory failure with hypercapnia Is this a current diagnosis for this admission?: Yes (2) MRSA pneumonia Qualifiers: Laterality: unspecified laterality Lung location: unspecified part of lung Qualified Code(s): J15.212 - Pneumonia due to Methicillin resistant Staphylococcus aureus Is this a current diagnosis for this admission?: Yes (3) COPD (chronic obstructive pulmonary disease) Qualifiers: COPD type: unspecified COPD Qualified Code(s): J44.9 - Chronic obstructive pulmonary disease, unspecified Is this a current diagnosis for this admission?: Yes (4) COPD (chronic obstructive pulmonary disease) Qualifiers: COPD type: unspecified COPD Qualified Code(s): J44.9 - Chronic obstructive pulmonary disease, unspecified Is this a current diagnosis for this admission?: Yes
[2018-05-24] MEDS: MEMANTINE HCL 10 MG TABLET PO SCH (20:10)
[2018-05-24] MEDS: VANCOMYCIN HCL 1,000 MG in DEXTROSE 5%-WATER 250 ML IV SCH (21:44)
[2018-05-25] MEDS: IPRATROPIUM/ALBUTEROL 0.5-2.5 MG/3 ML AMPUL NEB SCH ×6 (00:08→19:39)
[2018-05-25] MEDS: INSULIN LISPRO 100 UNIT/ML 3 ML VIAL SUBCUT PRN ×4 (00:27→17:59)
[2018-05-25] MEDS: LANSOPRAZOLE 30 MG TAB.RAP.DR PO SCH (05:26)
[2018-05-25] MEDS: PIPERACILLIN SODIUM/TAZOBACTAM 2.25 GM in NORMAL SALINE 50 ML IV SCH ×4 (05:26→23:49)
[2018-05-25 06:16] LABS: ABSOLUTE BASOPHILS # (AUTO) 0.2 10^3/uL (0.0-0.2); ABSOLUTE EOSINOPHILS # (AUTO) 1.6 10^3/uL (0.0-0.6); ABSOLUTE LYMPHOCYTES (AUTO) 6.6 10^3/uL (0.5-4.7); ABSOLUTE MONOCYTES (AUTO) 1.9 10^3/uL (0.1-1.4); ABSOLUTE NEUT (AUTO) 8.4 10^3/uL (1.7-8.2); EOSINOPHILS % (AUTO) 8.6 % (0-6); HEMATOCRIT 27.3 % (36.0-47.0); HEMOGLOBIN 8.9 g/dL (12.0-15.5); LYMPHOCYTES % (AUTO) 35.4 % (13-45); MEAN CORPUSCULAR HEMOGLOBIN 26.3 pg (27.0-33.4); MEAN CORPUSCULAR HGB CONC 32.5 g/dL (32.0-36.0); MEAN CORPUSCULAR VOLUME 81 fl (80-97); MONOCYTES % (AUTO) 10.2 % (3-13); PLATELET COUNT 424 10^3/uL (150-450); RED BLOOD COUNT 3.38 10^6/uL (3.72-5.28); RED CELL DISTRIBUTION WIDTH 21.7 % (11.5-14.0); SEGMENTED NEUTROPHILS % (AUTO) 44.8 % (42-78); TOTAL CELLS COUNTED % (AUTO) 100 %; WHITE BLOOD COUNT 18.8 10^3/uL (4.0-10.5)
[2018-05-25 06:34] LABS: BLOOD UREA NITROGEN 72 mg/dL (7-20); CALCIUM 10.6 mg/dL (8.4-10.2); CARBON DIOXIDE 19 mmol/L (22-30); CHLORIDE 108 mmol/L (98-107); GLUCOSE 175 mg/dL (75-110); POTASSIUM 3.6 mmol/L (3.6-5.0)
[2018-05-25 06:40] LABS: ANION GAP 19 (5-19); SODIUM 145.5 mmol/L (137-145)
[2018-05-25] MEDS: BUDESONIDE NEB 0.5 MG/2 ML AMPUL NEB SCH ×2 (07:52→19:39)
--- NOTE | 2018-05-25 08:21 | RADIOLOGY REPORT (SQ) ---
EXAM DESCRIPTION: CHEST SINGLE VIEW COMPLETED DATE/TIME: 05/25/2018 8:14 am REASON FOR STUDY: on vent; pneumonia; Hx massive right atelectasis COMPARISON: 05/23/2018 NUMBER OF VIEWS: One view. TECHNIQUE: Single frontal radiographic image of the chest acquired. LIMITATIONS: None. FINDINGS: LUNGS AND PLEURA: Stable appearance. MEDIASTINUM AND HILAR STRUCTURES: Stable heart size and mediastinal structures. HEART AND VASCULAR STRUCTURES: Stable appearance. SUPPORT DEVICES: Appropriate location without change. BONES: No acute findings. OTHER: No other significant finding. IMPRESSION: No interval change with persistent right lower lobe pneumonia. Small bilateral pleural effusions. TECHNICAL DOCUMENTATION: JOB ID: [id number] [employer]- All Rights Reserved Reading location - IP/workstation name: [email or web address]
[2018-05-25] MEDS: LISINOPRIL 10 MG TABLET PEG SCH (09:21)
[2018-05-25] MEDS: MULTIVITAMIN ORAL LIQUID 60 ML PO SCH (09:21)
[2018-05-25] MEDS: FUROSEMIDE 40 MG TABLET PO SCH ×2 (09:21→17:59)
[2018-05-25] MEDS: SENNOSIDES/DOCUSATE 8.6-50 MG 1 EACH TABLET PEG SCH (09:21)
[2018-05-25] MEDS: ASCORBIC ACID 500 MG TABLET PEG SCH (09:21)
[2018-05-25] MEDS: AMLODIPINE BESYLATE 10 MG TABLET PEG SCH (09:21)
[2018-05-25] MEDS: ASPIRIN 81 MG TABLET, CHEWABLE PO SCH (09:21)
[2018-05-25] MEDS: MEMANTINE HCL 10 MG TABLET PO SCH (09:21)
[2018-05-25] MEDS: MOXIFLOXACIN HCL 0.5% OPH SOLN 3 ML OU SCH ×3 (09:22→18:00)
[2018-05-25] MEDS: INSULIN DETEMIR 100 UNIT/ML 3 ML PEN SUBCUT SCH (09:22)
[2018-05-25] MEDS: BACITRACIN OPH OINT 3.5 GM OU SCH ×2 (09:23→22:03)
[2018-05-25] MEDS: ENOXAPARIN SODIUM INJ 30 MG/0.3 ML DISP.SYRIN SUBCUT SCH (09:23)
[2018-05-25] MEDS: PREDNISONE 5 MG TABLET PEG SCH (09:23)
[2018-05-25] MEDS: ONDANSETRON HCL 8 MG TABLET PEG PRN (12:10)
--- NOTE | 2018-05-25 15:20 | PROGRESS NOTE E ---
Progress Note NAME: BRIANA BRADY : 1935 AGE: 82Y DATE: 05/24/2018 ROOM: 303 SUBJECTIVE: The patient is an 82-year-old female who came in with acute on chronic respiratory failure, status post tracheostomy requiring chronic ventilatory invasive mechanical ventilation therapy. There were no fever spikes over the last 24 hours. Has mild to moderate endotracheal tube secretions. Vital signs were stable. Oxygen saturation is fine. Tolerating the G-tube feeding. Primary care is Dr. Higgins who discussed the patient palliative care to patient's family. The family rejected the recommendation. The patient appeared to be awake and afebrile, not in apparent respiratory distress. OBJECTIVE: VITAL SIGNS: Her temperature is 99.2 with a T-max of 99.2. Blood pressure is 147/55, heart rate is 85, respiration is 20, saturation is 100% on 40% FiO2, rate of 20, tidal volume 450, mid ventilation is 9, pressure support of 10, PEEP of 5. EYES: No jaundice or pallor. Eyelid has a lesion appeared infected. CHEST AND LUNGS: No wheezing, no rhonchi, no coarse crackles. CARDIOVASCULAR: S1, S2 distinct. Normal rate, regular rhythm. ABDOMEN: Flabby, positive bowel sounds, nondistended. EXTREMITIES: No joint swelling, no cellulitis. LABORATORY DATA: No CBC today. Chemistry done today showed sodium 157, potassium 3.7, chloride 109, CO2 is 20, BUN is 80, creatinine 1.64, glucose is 250, and calcium is 10.8. No ABG today. ASSESSMENT: 1. ACUTE ON CHRONIC RESPIRATORY FAILURE REQUIRING INVASIVE MECHANICAL VENTILATION. Currently stable. Mild to moderate tracheal secretions. 2. PNEUMONIA. Appeared to be improving. Positive pseudomonas in the sputum culture. 3. COPD, SEVERE. PLAN: 1. Continue with IV antibiotics for now. 2. We will continue IV Zosyn. 3. Continue the nebulizer treatment every 6 hours. 4. Agree with palliative hospice care consult for patient. 5. Continue the GI and DVT prophylaxis. 6. We will do a chest x-ray tomorrow with CBC and chemistry. DICTATING PHYSICIAN: JOCELYN MIRANDA MD,PURNIMA,MPH [id number] PHY#: [id number] ID: [id number] JOB#: [id number] ACCT: [id number] cc: > MTDD
--- NOTE | 2018-05-25 19:01 | PDOC PROGRESS REPORT ---
Subjective Progress Note for:: 05/25/18 Subjective:: No change in condition, awaiting discharge planning for discharge to home Reason For Visit: CHRNIC RESPIRATORY FAILURE S/P TRACHEOSTOMY ON Physical Exam Vital Signs: Temp Pulse Resp BP Pulse Ox 97.5 F 85 20 112/95 H 100 05/25/18 15:03 05/25/18 15:41 05/25/18 15:41 05/25/18 15:03 05/25/18 15:41 Pulse Oximeter Continuous Start: 05/18/18 08: 48 Freq: RTQ4 Status: Active Document 05/25/18 15:41 LDA (Rec: 05/25/18 15:44 LDA [email or web address]) Pulse Oximetry Assessment Oxygen Saturation (92-100) 100 Oxygen Delivery Method Mechanical Ventilator Fraction of Inspired Oxygen (FIO2) 30 Equipment Usage Equipment in Use Continuous SpO2 Machine # 9 Intake & Output 05/24/18 05/25/18 05/26/18 06:59 06:59 06:59 Intake Total 2213 1899 1132 Output Total 1225 1475 900 Balance 988 424 232 Weight 72.4 kg 70.8 kg General appearance: PRESENT: no acute distress Eye exam: PRESENT: PERRLA Respiratory exam: PRESENT: clear to auscultation monica Cardiovascular exam: PRESENT: +S1, +S2 GI/Abdominal exam: PRESENT: soft Neurological exam: PRESENT: alert Results Laboratory Results: 05/25/18 05:12 05/25/18 05:12 05/25/18 05/25/18 05:12 05:12 WBC 18.8 H RBC 3.38 L Hgb 8.9 L Hct 27.3 L MCV 81 MCH 26.3 L MCHC 32.5 RDW 21.7 H Plt Count 424 Seg Neutrophils % 44.8 Lymphocytes % 35.4 Monocytes % 10.2 Eosinophils % 8.6 H Basophils % 1.0 Absolute Neutrophils 8.4 H Absolute Lymphocytes 6.6 H Absolute Monocytes 1.9 H Absolute Eosinophils 1.6 H Absolute Basophils 0.2 Sodium 145.5 H Potassium 3.6 Chloride 108 H Carbon Dioxide 19 L Anion Gap 19 BUN 72 H Creatinine 1.47 H Est GFR ( Amer) 41 L Est GFR (Non-Af Amer) 34 L Glucose 175 H Calcium 10.6 H Impressions: Chest X-Ray 05/25/18 05:00 IMPRESSION: No interval change with persistent right lower lobe pneumonia. Small bilateral pleural effusions. Assessment & Plan - Diagnosis (1) Acute respiratory failure Qualifiers: Respiratory failure complication: hypoxia and hypercapnia Qualified Code(s) : J96.01 - Acute respiratory failure with hypoxia; J96.02 - Acute respiratory failure with hypercapnia; J96.02 - Acute respiratory failure with hypercapnia; J96.02 - Acute respiratory failure with hypercapnia Is this a current diagnosis for this admission?: Yes (2) MRSA pneumonia Qualifiers: Laterality: unspecified laterality Lung location: unspecified part of lung Qualified Code(s): J15.212 - Pneumonia due to Methicillin resistant Staphylococcus aureus Is this a current diagnosis for this admission?: Yes (3) COPD (chronic obstructive pulmonary disease) Qualifiers: COPD type: unspecified COPD Qualified Code(s): J44.9 - Chronic obstructive pulmonary disease, unspecified Is this a current diagnosis for this admission?: Yes (4) COPD (chronic obstructive pulmonary disease) Qualifiers: COPD type: unspecified COPD Qualified Code(s): J44.9 - Chronic obstructive pulmonary disease, unspecified Is this a current diagnosis for this admission?: Yes
--- NOTE | 2018-05-25 22:01 | PROGRESS NOTE E ---
Progress Note NAME: BRIANA BRADY : 1935 AGE: 82Y DATE: 05/25/2018 ROOM: 303 SUBJECTIVE: The patient is an 82-year-old female who came in with acute on chronic respiratory failure requiring invasive mechanical ventilation status post tracheostomy tube placement and pneumonia bilateral. There was no fever over the last 24 hours. No vomiting or diarrhea. RN claimed that the patient still has some increased yellow-green sputum requiring suction every 2 to 3 hours. OBJECTIVE: GENERAL: The patient appeared awake, afebrile, coherent, not in apparent respiratory distress. VITAL SIGNS: With a temperature of 97.5 with a temperature maximum of 99.3. Blood pressure is 112/95. Pulse rate of 85. Respiratory rate of 20. Currently, the patient's O2 saturation is 93% on an FIO2 of 70%. EYES: No jaundice or pallor. EARS, NOSE, AND THROAT: No ear drainage. No nasal discharge. NECK: Tracheostomy tube is in place. CHEST AND LUNGS: No wheezing. No rhonchi. No coarse crackles. CARDIOVASCULAR: No irregular heart rhythm. ABDOMEN: Flabby, positive bowel sounds, soft, nondistended. EXTREMITIES: No joint swelling. No cellulitis. LABORATORY: CBC done today showed white count of 18.8 with a hemoglobin 8.9, hematocrit is 23.7 with a platelet count of 424. Chemistries done today showed sodium 135, potassium 3.6, chloride 108, CO2 is 19, BUN is 72, creatinine is 1.47, glucose 135, and calcium is 10.2. Chest x-ray done today showed no new infiltrates, infiltrate in the right lower lobe as well as a pleural effusion bilaterally. ASSESSMENT: 1. ACUTE ON CHRONIC RESPIRATORY FAILURE REQUIRING INVASIVE MECHANICAL VENTILATION, STATUS POST TRACHEOSTOMY TUBE WITH TRACHEAL SECRETIONS IN THE TRACHEOSTOMY TUBE; WILL CONTINUE VENTILATORY SUPPORT. 2. PNEUMONIA, RIGHT LOWER LOBE, APPEARS TO BE IMPROVING BUT THE WHITE COUNT IS STILL HIGH AT 18,000. CURRENTLY ON IV ZOSYN AND IV VANCOMYCIN. LAST MICROBIOLOGY WAS DONE 2 DAYS AGO SHOWING GRAM-NEGATIVE RODS. NO ID YET. THE SPUTUM CULTURE DONE ON MAY 18 SHOWED PSEUDONONAS AERUGINOSA . PLAN AND RECOMMENDATIONS: 1. Continue the IV Zosyn and vancomycin. 2. Continue nebulizer treatments. 3. Continue to optimize ventilatory support. DICTATING PHYSICIAN: JOCELYN MIRANDA MD,PURNIMA,MPH [id number] [id number] PHY#: [id number] ID: [id number] JOB#: [id number] ACCT: [id number] cc:JOCELYN MIRANDA M.D. > MAXD
[2018-05-25] MEDS: VANCOMYCIN HCL 1,000 MG in DEXTROSE 5%-WATER 250 ML IV SCH (22:04)
[2018-05-25 22:20] LABS: VANCOMYCIN,TROUGH 29.2 ug/mL (5.0-20.0)
[2018-05-26] MEDS: IPRATROPIUM/ALBUTEROL 0.5-2.5 MG/3 ML AMPUL NEB SCH ×7 (00:49→23:53)
[2018-05-26] MEDS: INSULIN LISPRO 100 UNIT/ML 3 ML VIAL SUBCUT PRN ×3 (01:37→17:54)
[2018-05-26] MEDS: PIPERACILLIN SODIUM/TAZOBACTAM 2.25 GM in NORMAL SALINE 50 ML IV SCH ×3 (06:12→17:53)
[2018-05-26] MEDS: LANSOPRAZOLE 30 MG TAB.RAP.DR PO SCH (06:13)
[2018-05-26] MEDS: BUDESONIDE NEB 0.5 MG/2 ML AMPUL NEB SCH ×2 (08:00→19:37)
[2018-05-26] MEDS: INSULIN DETEMIR 100 UNIT/ML 3 ML PEN SUBCUT SCH (10:30)
[2018-05-26] MEDS: PREDNISONE 5 MG TABLET PEG SCH (10:30)
[2018-05-26] MEDS: ASCORBIC ACID 500 MG TABLET PEG SCH (10:31)
[2018-05-26] MEDS: FUROSEMIDE 40 MG TABLET PO SCH ×2 (10:31→17:54)
[2018-05-26] MEDS: LISINOPRIL 10 MG TABLET PEG SCH (10:31)
[2018-05-26] MEDS: ENOXAPARIN SODIUM INJ 30 MG/0.3 ML DISP.SYRIN SUBCUT SCH (10:32)
[2018-05-26] MEDS: MULTIVITAMIN ORAL LIQUID 60 ML PO SCH (10:32)
[2018-05-26] MEDS: AMLODIPINE BESYLATE 10 MG TABLET PEG SCH (10:32)
[2018-05-26] MEDS: MEMANTINE HCL 10 MG TABLET PO SCH (10:32)
[2018-05-26] MEDS: SENNOSIDES/DOCUSATE 8.6-50 MG 1 EACH TABLET PEG SCH (10:32)
[2018-05-26] MEDS: BACITRACIN OPH OINT 3.5 GM OU SCH ×2 (10:33→22:09)
[2018-05-26] MEDS: MOXIFLOXACIN HCL 0.5% OPH SOLN 3 ML OU SCH ×3 (10:33→17:54)
[2018-05-26] MEDS: ASPIRIN 81 MG TABLET, CHEWABLE PO SCH (11:00)
--- NOTE | 2018-05-26 20:38 | PDOC PROGRESS REPORT ---
Subjective Progress Note for:: 05/26/18 Subjective:: Patient's condition is about the same she is on IV antibiotic, she continues to require vent support Reason For Visit: CHRNIC RESPIRATORY FAILURE S/P TRACHEOSTOMY ON Physical Exam Vital Signs: Temp Pulse Resp BP Pulse Ox 99.5 F 86 29 H 127/62 H 98 05/26/18 15:06 05/26/18 19:38 05/26/18 19:38 05/26/18 15:06 05/26/18 19:38 Pulse Oximeter Continuous Start: 05/18/18 08: 48 Freq: RTQ4 Status: Active Document 05/26/18 19:38 EST (Rec: 05/26/18 19:51 EST [email or web address]) Pulse Oximetry Assessment Oxygen Saturation (92-100) 98 Oxygen Delivery Method Mechanical Ventilator Fraction of Inspired Oxygen (FIO2) 80 Equipment Usage Equipment in Use Continuous SpO2 Machine # 9 Intake & Output 05/25/18 05/26/18 05/27/18 06:59 06:59 06:59 Intake Total 1899 2291 594 Output Total 1475 1450 925 Balance 424 841 -331 Weight 70.8 kg 72 kg General appearance: PRESENT: mild distress Eye exam: PRESENT: PERRLA Respiratory exam: PRESENT: rhonchi Cardiovascular exam: PRESENT: +S1, +S2 GI/Abdominal exam: PRESENT: soft Results Laboratory Results: 05/25/18 05:12 05/25/18 21:41 05/25/18 21:41 Creatinine 1.49 H Est GFR ( Amer) 41 L Est GFR (Non-Af Amer) 34 L 05/21/18 12:29 Blood Blood Culture - Final NO GROWTH IN 5 DAYS 05/21/18 12:40 Blood Blood Culture - Final NO GROWTH IN 5 DAYS Impressions: Chest X-Ray 05/25/18 05:00 IMPRESSION: No interval change with persistent right lower lobe pneumonia. Small bilateral pleural effusions. Assessment & Plan - Diagnosis (1) Acute respiratory failure Qualifiers: Respiratory failure complication: hypoxia and hypercapnia Qualified Code(s) : J96.01 - Acute respiratory failure with hypoxia; J96.02 - Acute respiratory failure with hypercapnia; J96.02 - Acute respiratory failure with hypercapnia; J96.02 - Acute respiratory failure with hypercapnia Is this a current diagnosis for this admission?: Yes (2) MRSA pneumonia Qualifiers: Laterality: unspecified laterality Lung location: unspecified part of lung Qualified Code(s): J15.212 - Pneumonia due to Methicillin resistant Staphylococcus aureus Is this a current diagnosis for this admission?: Yes (3) COPD (chronic obstructive pulmonary disease) Qualifiers: COPD type: unspecified COPD Qualified Code(s): J44.9 - Chronic obstructive pulmonary disease, unspecified Is this a current diagnosis for this admission?: Yes (4) COPD (chronic obstructive pulmonary disease) Qualifiers: COPD type: unspecified COPD Qualified Code(s): J44.9 - Chronic obstructive pulmonary disease, unspecified Is this a current diagnosis for this admission?: Yes
--- NOTE | 2018-05-26 22:21 | PROGRESS NOTE E ---
Progress Note NAME: BRIANA BRADY : 1935 AGE: 82Y DATE: 05/26/2018 ROOM: 303 SUBJECTIVE: Patient is an 82-year-old female who came in with acute on chronic respiratory failure requiring invasive mechanical ventilation, status post tracheostomy tube placement, who came in with massive atelectasis of his right lung this admission, and history of Pseudomonas aeruginosa pneumonia and history of MRSA pneumonia. Patient appears to be more awake at this time, laughing and watching TV, compared to the day the patient was admitted. Has some endotracheal tube secretions. No fever spike for the last 24 hours with a temperature of 99 degrees Fahrenheit, with a T-max of 99.4. OBJECTIVE: GENERAL: Patient is awake, alert. Appeared to be oriented and afebrile, not in apparent acute respiratory distress. VITAL SIGNS: Temperature is 99 degrees Fahrenheit, blood pressure of 139/59, a pulse rate of 86, saturation is 98% on 80% FiO2. FiO2 changed to 60%, patient saturating 93% with an SIMV rate currently changed to 18 and tidal volume 450, pressure support of 10, PEEP of 5. EYES: No jaundice or pallor. EARS, NOSE AND THROAT: No ear drainage. No nasal discharge. HEAD AND NECK: No scalp swelling or tenderness. Neck supple. CHEST AND LUNGS: No wheezing, no rhonchi, no coarse crackles. CARDIOVASCULAR: S1, S2 distant. Normal rate, regular rhythm. ABDOMEN: Flabby. Positive bowel sounds. Soft, nondistended, nontender. EXTREMITIES: No joint swelling or cellulitis. LABORATORY DATA: There was no CBC or chemistry done today and no ABG done today. ASSESSMENT: 1. ACUTE ON CHRONIC RESPIRATORY FAILURE. Appears to be improving, as there are decreasing endotracheal tube secretions. 2. REEXPANSION INVOLVING THE RIGHT LUNG AND PNEUMONIA APPEARS TO BE IMPROVING. Sputum culture positive for Pseudomonas stenotrophomonas maltophilia and positive culture for MRSA in the past. PLAN: Continue IV Zosyn for now. Finish 1 week of Levaquin. One week of Zosyn will be done tomorrow evening, 5 p.m. We might continue the Zosyn for another week. Pneumonia appeared not to be completely gone. Pseudomonas aeruginosa pneumonia is difficult to treat adarsh on ventilated patient, because it colonizes the airway. Sometimes requires 1 or 2 weeks of treatment or more. Patient discharged to home health care with nurse visit. DICTATING PHYSICIAN: JOCELYN MIRANDA MD,PURNIMA,MPH [id number] PHY#: [id number] ID: [id number] JOB#: [id number] ACCT: [id number] cc: > MTDD
[2018-05-27] MEDS: PIPERACILLIN SODIUM/TAZOBACTAM 2.25 GM in NORMAL SALINE 50 ML IV SCH ×3 (00:37→11:16)
[2018-05-27] MEDS: IPRATROPIUM/ALBUTEROL 0.5-2.5 MG/3 ML AMPUL NEB SCH ×6 (03:54→23:44)
[2018-05-27] MEDS: LANSOPRAZOLE 30 MG TAB.RAP.DR PO SCH (05:49)
[2018-05-27] MEDS ORDERED: VANCOMYCIN HCL 1,500 MG in DEXTROSE 5%-WATER 250 ML IV SCH (06:00)
[2018-05-27] MEDS: INSULIN LISPRO 100 UNIT/ML 3 ML VIAL SUBCUT PRN ×3 (06:25→18:15)
[2018-05-27] MEDS: BUDESONIDE NEB 0.5 MG/2 ML AMPUL NEB SCH ×2 (08:04→19:57)
[2018-05-27] MEDS: MULTIVITAMIN ORAL LIQUID 60 ML PO SCH (10:38)
[2018-05-27] MEDS: LISINOPRIL 10 MG TABLET PEG SCH (10:40)
[2018-05-27] MEDS: AMLODIPINE BESYLATE 10 MG TABLET PEG SCH (10:40)
[2018-05-27] MEDS: PREDNISONE 5 MG TABLET PEG SCH (10:40)
[2018-05-27] MEDS: MEMANTINE HCL 10 MG TABLET PO SCH (10:40)
[2018-05-27] MEDS: ENOXAPARIN SODIUM INJ 30 MG/0.3 ML DISP.SYRIN SUBCUT SCH (10:40)
[2018-05-27] MEDS: SENNOSIDES/DOCUSATE 8.6-50 MG 1 EACH TABLET PEG SCH (10:40)
[2018-05-27] MEDS: ASPIRIN 81 MG TABLET, CHEWABLE PO SCH (10:40)
[2018-05-27] MEDS: BACITRACIN OPH OINT 3.5 GM OU SCH ×2 (10:41→21:26)
[2018-05-27] MEDS: ASCORBIC ACID 500 MG TABLET PEG SCH (10:41)
[2018-05-27] MEDS: FUROSEMIDE 40 MG TABLET PO SCH ×2 (10:41→17:09)
[2018-05-27] MEDS: MOXIFLOXACIN HCL 0.5% OPH SOLN 3 ML OU SCH ×4 (10:42→17:23)
[2018-05-27] MEDS: INSULIN DETEMIR 100 UNIT/ML 3 ML PEN SUBCUT SCH (10:42)
[2018-05-27 12:06] LABS: ABSOLUTE BASOPHILS # (AUTO) 0.3 10^3/uL (0.0-0.2); ABSOLUTE EOSINOPHILS # (AUTO) 1.8 10^3/uL (0.0-0.6); ABSOLUTE LYMPHOCYTES (AUTO) 3.9 10^3/uL (0.5-4.7); ABSOLUTE MONOCYTES (AUTO) 1.4 10^3/uL (0.1-1.4); ABSOLUTE NEUT (AUTO) 6.7 10^3/uL (1.7-8.2); BASOPHILS % (AUTO) 1.8 % (0-2); EOSINOPHILS % (AUTO) 12.7 % (0-6); HEMATOCRIT 30.7 % (36.0-47.0); HEMOGLOBIN 9.8 g/dL (12.0-15.5); LYMPHOCYTES % (AUTO) 27.9 % (13-45); MEAN CORPUSCULAR HEMOGLOBIN 25.6 pg (27.0-33.4); MEAN CORPUSCULAR HGB CONC 31.8 g/dL (32.0-36.0); MEAN CORPUSCULAR VOLUME 81 fl (80-97); PLATELET COUNT 394 10^3/uL (150-450); RED BLOOD COUNT 3.82 10^6/uL (3.72-5.28); RED CELL DISTRIBUTION WIDTH 20.6 % (11.5-14.0); SEGMENTED NEUTROPHILS % (AUTO) 47.6 % (42-78); TOTAL CELLS COUNTED % (AUTO) 100 %
[2018-05-27 12:27] LABS: ANION GAP 18 (5-19); BLOOD UREA NITROGEN 56 mg/dL (7-20); CALCIUM 10.7 mg/dL (8.4-10.2); CARBON DIOXIDE 20 mmol/L (22-30); CHLORIDE 110 mmol/L (98-107); GLUCOSE 209 mg/dL (75-110); POTASSIUM 3.5 mmol/L (3.6-5.0); SODIUM 148.1 mmol/L (137-145)
--- NOTE | 2018-05-27 13:38 | PDOC PROGRESS REPORT ---
Subjective Progress Note for:: 05/27/18 Subjective:: Patient remain on vent support via tracheostomy. FIO2 currently at 50%. No reported fever. Tolerating enteral tube feeding with rate at 45mL/hour. Reason For Visit: CHRNIC RESPIRATORY FAILURE S/P TRACHEOSTOMY ON Physical Exam Vital Signs: Temp Pulse Resp BP Pulse Ox 98.1 F 77 18 154/60 H 100 05/27/18 11:55 05/27/18 11:55 05/27/18 11:55 05/27/18 11:55 05/27/18 11:55 Pulse Oximeter Continuous Start: 05/18/18 08: 48 Freq: RTQ4 Status: Active Document 05/27/18 11:42 TPO (Rec: 05/27/18 12:03 TPO [email or web address]) Pulse Oximetry Assessment Oxygen Saturation (92-100) 100 Oxygen Delivery Method Mechanical Ventilator Fraction of Inspired Oxygen (FIO2) 50 Equipment Usage Equipment in Use Continuous SpO2 Machine # 9 Intake & Output 05/26/18 05/27/18 05/28/18 06:59 06:59 06:59 Intake Total 2291 1644 1627 Output Total 1450 1750 300 Balance 841 -106 1327 Weight 72 kg 71.8 kg Physical Exam: General appearance: PRESENT: no acute distress, well-developed, well-nourished Head exam: PRESENT: atraumatic, normocephalic Ear exam: PRESENT: normal external ear exam Mouth exam: PRESENT: moist Neck exam: PRESENT: tracheostomy Respiratory exam: PRESENT: clear to auscultation monica, decreased breath sounds - at lung bases Cardiovascular exam: PRESENT: RRR. ABSENT: diastolic murmur, rubs, systolic murmur GI/Abdominal exam: PRESENT: normal bowel sounds, soft, other - PEG site dressing okay.. ABSENT: distended, guarding, mass, organomegaly, rebound, tenderness Extremities exam: PRESENT: right AKA. ABSENT: pedal edema Musculoskeletal exam: PRESENT: deformity - related to multiple joints involvement with arthritis Neurological exam: PRESENT: alert, awake Psychiatric exam: ABSENT: agitated, anxious Skin exam: PRESENT: dry, warm, other -improving left heel stage 2 pressure ulcer Results Laboratory Results: 05/27/18 11:53 05/27/18 11:53 05/27/18 05/27/18 11:53 11:53 WBC 14.0 H RBC 3.82 Hgb 9.8 L Hct 30.7 L MCV 81 MCH 25.6 L MCHC 31.8 L RDW 20.6 H Plt Count 394 Seg Neutrophils % 47.6 Lymphocytes % 27.9 Monocytes % 10.0 Eosinophils % 12.7 H Basophils % 1.8 Absolute Neutrophils 6.7 Absolute Lymphocytes 3.9 Absolute Monocytes 1.4 Absolute Eosinophils 1.8 H Absolute Basophils 0.3 H Sodium 148.1 H Potassium 3.5 L Chloride 110 H Carbon Dioxide 20 L Anion Gap 18 BUN 56 H Creatinine 1.33 H Est GFR ( Amer) 46 L Est GFR (Non-Af Amer) 38 L Glucose 209 H Calcium 10.7 H 05/21/18 12:29 Blood Blood Culture - Final NO GROWTH IN 5 DAYS 05/21/18 12:40 Blood Blood Culture - Final NO GROWTH IN 5 DAYS Impressions: Chest X-Ray 05/25/18 05:00 IMPRESSION: No interval change with persistent right lower lobe pneumonia. Small bilateral pleural effusions. Assessment & Plan - Diagnosis (1) Chronic respiratory failure with hypoxia and hypercapnia Is this a current diagnosis for this admission?: Yes (2) Tracheostomy dependence Is this a current diagnosis for this admission?: Yes (3) COPD (chronic obstructive pulmonary disease) Qualifiers: COPD type: unspecified COPD Qualified Code(s): J44.9 - Chronic obstructive pulmonary disease, unspecified Is this a current diagnosis for this admission?: Yes (4) CHF (congestive heart failure) Qualifiers: Heart failure type: diastolic Heart failure chronicity: chronic Qualified Code(s): I50.32 - Chronic diastolic (congestive) heart failure Is this a current diagnosis for this admission?: Yes (5) Hypertension Qualifiers: Hypertension type: essential hypertension Is this a current diagnosis for this admission?: Yes (6) Type 2 diabetes mellitus Qualifiers: Diabetes mellitus usp insulin use: with longwall 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 Diabetes mellitus complication status: with neurologic complications Diabetes mellitus complication detail: with polyneuropathy Qualified Code(s): E11.42 - Type 2 diabetes mellitus with diabetic polyneuropathy Is this a current diagnosis for this admission?: Yes (7) Dementia Qualifiers: Dementia type: Alzheimer's disease Alzheimer's disease onset: late-onset Dementia behavioral disturbance: without behavioral disturbance Qualified Code (s): G30.1 - Alzheimer's disease with late onset; F02.80 - Dementia in other diseases classified elsewhere without behavioral disturbance; F02.80 - Dementia in other diseases classified elsewhere without behavioral disturbance; F02.80 - Dementia in other diseases classified elsewhere without behavioral disturbance Is this a current diagnosis for this admission?: Yes (8) Pressure ulcer of left heel, stage 2 Is this a current diagnosis for this admission?: Yes - Time Time Spent with patient: 25-34 minutes Medications reviewed and adjusted accordingly: Yes Anticipated discharge: Other - LTAC Within: Other - Inpatient Certification Based on my medical assessment, after consideration of the patient's comorbidities, presenting symptoms, or acuity I expect that the services needed warrant INPATIENT care.: Yes I certify that my determination is in accordance with my understanding of Medicare's requirements for reasonable and necessary INPATIENT services [42 CFR 412.3e].: Yes Medical Necessity: Need Close Monitoring Due to Risk of Patient Decompensation, Need For IV Fluids, Need For Continuous Telemetry Monitoring, Need for Nebulizer Therapy and Monitoring of Response, Need for IV Antibiotics, Risk of Complication if Not Cared For in Hospital Post Hospital Care: D/C or Transfer Summary - Plan Summary Plan Summary: Continue current IV antibiotic therapy with Vancomycin and Primaxin coverage. Overall prognosis remain very poor.
--- NOTE | 2018-05-27 16:06 | PROGRESS NOTE E ---
Progress Note NAME: BRIANA BRADY : 1935 AGE: 82Y DATE: 05/27/2018 ROOM: 303 SUBJECTIVE: The patient is an 82-year-old female who came in with a pneumonia, MRSA and Pseudomonas, recurrent, and acute on chronic respiratory failure requiring invasive mechanical ventilation via tracheostomy tube. The patient has been doing well over the last 24 hours, has had no fever spikes, has some scanty tracheostomy tube secretions. No vomiting. No diarrhea. OBJECTIVE: GENERAL: The patient appeared to be resting comfortably. Afebrile. Not in apparent respiratory distress. VITAL SIGNS: With temperature 98.8 with a temperature maximum of 99 degrees Fahrenheit. The patient's saturation is 100% on FIO2 of 50% cut down to 40%, saturation remains 100% on FIO2 of 30% to 35%. The orders instructed to titrate the FIO2 to keep saturation 91% to 94%. EYES: No jaundice or pallor. EARS, NOSE, AND THROAT: No ear drainage. No nasal discharge. NECK: Tracheostomy tube is in place. CHEST AND LUNGS: No wheezing. No rhonchi. No coarse crackles. CARDIOVASCULAR: S1, S2 distinct. No murmurs or gallops. ABDOMEN: Flabby, positive bowel sounds, soft, nondistended, nontender. EXTREMITIES: No joint swelling and no cellulitis. LABORATORY DATA: Chemistry: CBC done today showed white count of 14,000, dropped down from 18,800 yesterday, hemoglobin is 9.8, hematocrit is 30.7, platelet count is 294,000. Chemistry today is pending. ASSESSMENT: 1. ACUTE ON CHRONIC RESPIRATORY FAILURE REQUIRING INVASIVE MECHANICAL VENTILATION VIA TRACHEOSTOMY TUBE, APPEARS TO BE DOING WELL, APPEARS TO BE IMPROVING. 2. MRSA PNEUMONIA, PSEUDOMONAS PNEUMONIA, APPEARS TO BE IMPROVING WELL. NO FEVER NOW. STILL ON ZOSYN AND VANCOMYCIN. PLAN: 1. Will continue to optimize chronic mechanical ventilatory therapy. 2. The patient will be able to go home with the home health nurse, placement is being arranged. 3. Recommend Zosyn for another week. 4. The patient requires Pulmonary Clinic followup in 1 or 2 weeks following hospital discharge. DICTATING PHYSICIAN: JOCELYN MIRANDA MD,PURNIMA,MPH [id number] PHY#: [id number] ID: [id number] JOB#: [id number] ACCT: [id number] cc:JOCELYN MIRANDA M.D. > ILDA
[2018-05-28] MEDS: INSULIN LISPRO 100 UNIT/ML 3 ML VIAL SUBCUT PRN ×4 (00:11→18:06)
[2018-05-28] MEDS: IPRATROPIUM/ALBUTEROL 0.5-2.5 MG/3 ML AMPUL NEB SCH ×5 (04:10→20:14)
[2018-05-28] MEDS: LANSOPRAZOLE 30 MG TAB.RAP.DR PO SCH (06:15)
[2018-05-28] MEDS: BUDESONIDE NEB 0.5 MG/2 ML AMPUL NEB SCH ×2 (07:48→20:14)
[2018-05-28] MEDS: ENOXAPARIN SODIUM INJ 30 MG/0.3 ML DISP.SYRIN SUBCUT SCH (10:01)
[2018-05-28] MEDS: BACITRACIN OPH OINT 3.5 GM OU SCH ×2 (10:02→22:10)
[2018-05-28] MEDS: MOXIFLOXACIN HCL 0.5% OPH SOLN 3 ML OU SCH ×3 (10:02→17:03)
[2018-05-28] MEDS: MEMANTINE HCL 10 MG TABLET PO SCH (10:03)
[2018-05-28] MEDS: SENNOSIDES/DOCUSATE 8.6-50 MG 1 EACH TABLET PEG SCH (10:03)
[2018-05-28] MEDS: ASPIRIN 81 MG TABLET, CHEWABLE PO SCH (10:03)
[2018-05-28] MEDS: ASCORBIC ACID 500 MG TABLET PEG SCH (10:03)
[2018-05-28] MEDS: MULTIVITAMIN ORAL LIQUID 60 ML PO SCH (10:04)
[2018-05-28] MEDS: INSULIN DETEMIR 100 UNIT/ML 3 ML PEN SUBCUT SCH (10:04)
[2018-05-28] MEDS: PREDNISONE 5 MG TABLET PEG SCH (10:05)
[2018-05-28] MEDS: FUROSEMIDE 40 MG TABLET PO SCH ×2 (10:47→17:02)
[2018-05-28] MEDS: AMLODIPINE BESYLATE 10 MG TABLET PEG SCH (10:47)
[2018-05-28] MEDS: LISINOPRIL 10 MG TABLET PEG SCH (10:47)
--- NOTE | 2018-05-28 11:45 | PDOC PROGRESS REPORT ---
Subjective Progress Note for:: 05/28/18 Subjective:: Patient remain on vent support via tracheostomy with decrease in her FIO2 requirement. Currently FIO2 at 30% with satisfactory oxygen saturation. No reported fever. Tolerating enteral tube feeding with rate at 45mL/hour. Reason For Visit: CHRNIC RESPIRATORY FAILURE S/P TRACHEOSTOMY ON Physical Exam Vital Signs: Temp Pulse Resp BP Pulse Ox 97.7 F 95 18 152/66 H 100 05/28/18 07:41 05/28/18 08:08 05/28/18 07:48 05/28/18 08:08 05/28/18 07:48 Pulse Oximeter Continuous Start: 05/18/18 08: 48 Freq: RTQ4 Status: Active Document 05/28/18 07:48 TPO (Rec: 05/28/18 08:07 TPO [email or web address]) Pulse Oximetry Assessment Oxygen Saturation (92-100) 100 Oxygen Delivery Method Mechanical Ventilator Fraction of Inspired Oxygen (FIO2) 30 Equipment Usage Equipment in Use Continuous SpO2 Machine # 9 Intake & Output 05/27/18 05/28/18 05/29/18 06:59 06:59 06:59 Intake Total 1644 3133 536 Output Total 1750 1600 Balance -106 1533 536 Weight 71.8 kg 72.1 kg Physical Exam: General appearance: PRESENT: no acute distress, well-developed, well-nourished Head exam: PRESENT: atraumatic, normocephalic Ear exam: PRESENT: normal external ear exam Mouth exam: PRESENT: moist Neck exam: PRESENT: tracheostomy Respiratory exam: PRESENT: clear to auscultation monica, decreased breath sounds - at lung bases Cardiovascular exam: PRESENT: RRR. ABSENT: diastolic murmur, rubs, systolic murmur GI/Abdominal exam: PRESENT: normal bowel sounds, soft, other - PEG site dressing okay.. ABSENT: distended, guarding, mass, organomegaly, rebound, tenderness Extremities exam: PRESENT: right AKA. ABSENT: pedal edema Musculoskeletal exam: PRESENT: deformity - related to multiple joints involvement with arthritis Neurological exam: PRESENT: alert, awake Psychiatric exam: ABSENT: agitated, anxious Skin exam: PRESENT: dry, warm, left paranasal lesion is not actively bleeding at this time, other -improving left heel stage 2 pressure ulcer Results Laboratory Results: 05/27/18 11:53 05/27/18 11:53 05/27/18 05/27/18 11:53 11:53 WBC 14.0 H RBC 3.82 Hgb 9.8 L Hct 30.7 L MCV 81 MCH 25.6 L MCHC 31.8 L RDW 20.6 H Plt Count 394 Seg Neutrophils % 47.6 Lymphocytes % 27.9 Monocytes % 10.0 Eosinophils % 12.7 H Basophils % 1.8 Absolute Neutrophils 6.7 Absolute Lymphocytes 3.9 Absolute Monocytes 1.4 Absolute Eosinophils 1.8 H Absolute Basophils 0.3 H Sodium 148.1 H Potassium 3.5 L Chloride 110 H Carbon Dioxide 20 L Anion Gap 18 BUN 56 H Creatinine 1.33 H Est GFR ( Amer) 46 L Est GFR (Non-Af Amer) 38 L Glucose 209 H Calcium 10.7 H Impressions: Chest X-Ray 05/25/18 05:00 IMPRESSION: No interval change with persistent right lower lobe pneumonia. Small bilateral pleural effusions. Assessment & Plan - Diagnosis (1) Chronic respiratory failure with hypoxia and hypercapnia Is this a current diagnosis for this admission?: Yes (2) Tracheostomy dependence Is this a current diagnosis for this admission?: Yes (3) COPD (chronic obstructive pulmonary disease) Qualifiers: COPD type: unspecified COPD Qualified Code(s): J44.9 - Chronic obstructive pulmonary disease, unspecified Is this a current diagnosis for this admission?: Yes (4) CHF (congestive heart failure) Qualifiers: Heart failure type: diastolic Heart failure chronicity: chronic Qualified Code(s): I50.32 - Chronic diastolic (congestive) heart failure Is this a current diagnosis for this admission?: Yes (5) Hypertension Qualifiers: Hypertension type: essential hypertension Is this a current diagnosis for this admission?: Yes (6) Type 2 diabetes mellitus Qualifiers: 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 treater helper use Diabetes mellitus complication status: with neurologic complications Diabetes mellitus complication detail: with polyneuropathy Qualified Code(s): E11.42 - Type 2 diabetes mellitus with diabetic polyneuropathy Is this a current diagnosis for this admission?: Yes (7) Dementia Qualifiers: Dementia type: Alzheimer's disease Alzheimer's disease onset: late-onset Dementia behavioral disturbance: without behavioral disturbance Qualified Code (s): G30.1 - Alzheimer's disease with late onset; F02.80 - Dementia in other diseases classified elsewhere without behavioral disturbance; F02.80 - Dementia in other diseases classified elsewhere without behavioral disturbance; F02.80 - Dementia in other diseases classified elsewhere without behavioral disturbance Is this a current diagnosis for this admission?: Yes (8) Pressure ulcer of left heel, stage 2 Is this a current diagnosis for this admission?: Yes - Time Time Spent with patient: 25-34 minutes Medications reviewed and adjusted accordingly: Yes Anticipated discharge: Acute Rehab Within: Other - Inpatient Certification Based on my medical assessment, after consideration of the patient's comorbidities, presenting symptoms, or acuity I expect that the services needed warrant INPATIENT care.: Yes I certify that my determination is in accordance with my understanding of Medicare's requirements for reasonable and necessary INPATIENT services [42 CFR 412.3e].: Yes Medical Necessity: Need Close Monitoring Due to Risk of Patient Decompensation, Need For IV Fluids, Need For Continuous Telemetry Monitoring, Risk of Complication if Not Cared For in Hospital Post Hospital Care: D/C or Transfer Summary - Plan Summary Plan Summary: See covering attending physician orders.
[2018-05-28] MEDS ORDERED: PIPERACILLIN/TAZOBACTAM 2.25 GM VIAL IV PRN (20:39)
[2018-05-28] MEDS ORDERED: PREDNISONE 5 MG TABLET PEG ONE (20:45)
[2018-05-28] MEDS ORDERED: PIPERACILLIN/TAZOBACTAM 2.25 GM VIAL IV ONE ×3 (20:45→23:21)
[2018-05-28] MEDS: ONDANSETRON HCL 8 MG TABLET PEG PRN (22:06)
[2018-05-28] MEDS ORDERED: FAMOTIDINE INJ/PF 20 MG/2 ML SDV IV ONE ×2 (22:52→23:00)
[2018-05-29] MEDS: IPRATROPIUM/ALBUTEROL 0.5-2.5 MG/3 ML AMPUL NEB SCH ×6 (00:15→20:23)
[2018-05-29] MEDS: INSULIN LISPRO 100 UNIT/ML 3 ML VIAL SUBCUT PRN ×4 (00:20→18:03)
[2018-05-29] MEDS: LANSOPRAZOLE 30 MG TAB.RAP.DR PO SCH (05:41)
[2018-05-29] MEDS ORDERED: PIPERACILLIN/TAZOBACTAM 2.25 GM VIAL IV SCH (06:00)
[2018-05-29] MEDS: BUDESONIDE NEB 0.5 MG/2 ML AMPUL NEB SCH ×2 (07:36→20:23)
[2018-05-29 10:45] LABS: ABSOLUTE EOSINOPHILS # (AUTO) 1.1 10^3/uL (0.0-0.6); ABSOLUTE LYMPHOCYTES (AUTO) 3.9 10^3/uL (0.5-4.7); ABSOLUTE MONOCYTES (AUTO) 1.3 10^3/uL (0.1-1.4); ABSOLUTE NEUT (AUTO) 10.3 10^3/uL (1.7-8.2); BASOPHILS % (AUTO) 0.1 % (0-2); EOSINOPHILS % (AUTO) 6.7 % (0-6); HEMATOCRIT 28.3 % (36.0-47.0); HEMOGLOBIN 9.2 g/dL (12.0-15.5); LYMPHOCYTES % (AUTO) 23.4 % (13-45); MEAN CORPUSCULAR HEMOGLOBIN 26.1 pg (27.0-33.4); MEAN CORPUSCULAR HGB CONC 32.5 g/dL (32.0-36.0); MEAN CORPUSCULAR VOLUME 81 fl (80-97); PLATELET COUNT 427 10^3/uL (150-450); RED BLOOD COUNT 3.51 10^6/uL (3.72-5.28); RED CELL DISTRIBUTION WIDTH 20.5 % (11.5-14.0); SEGMENTED NEUTROPHILS % (AUTO) 61.8 % (42-78); TOTAL CELLS COUNTED % (AUTO) 100 %; WHITE BLOOD COUNT 16.7 10^3/uL (4.0-10.5)
[2018-05-29] MEDS: BACITRACIN OPH OINT 3.5 GM OU SCH ×2 (10:49→21:07)
[2018-05-29] MEDS: ASPIRIN 81 MG TABLET, CHEWABLE PO SCH (10:49)
[2018-05-29] MEDS: PREDNISONE 5 MG TABLET PEG SCH (10:50)
[2018-05-29] MEDS: FUROSEMIDE 40 MG TABLET PO SCH ×2 (10:51→17:57)
[2018-05-29] MEDS: INSULIN DETEMIR 100 UNIT/ML 3 ML PEN SUBCUT SCH (10:51)
[2018-05-29] MEDS: ENOXAPARIN SODIUM INJ 30 MG/0.3 ML DISP.SYRIN SUBCUT SCH (10:51)
[2018-05-29] MEDS: MULTIVITAMIN ORAL LIQUID 60 ML PO SCH (10:52)
[2018-05-29] MEDS: LISINOPRIL 10 MG TABLET PEG SCH (10:53)
[2018-05-29] MEDS: AMLODIPINE BESYLATE 10 MG TABLET PEG SCH (10:53)
[2018-05-29] MEDS: MEMANTINE HCL 10 MG TABLET PO SCH (10:53)
[2018-05-29] MEDS: SENNOSIDES/DOCUSATE 8.6-50 MG 1 EACH TABLET PEG SCH (10:54)
[2018-05-29] MEDS: MOXIFLOXACIN HCL 0.5% OPH SOLN 3 ML OU SCH ×3 (10:54→17:57)
[2018-05-29] MEDS: ASCORBIC ACID 500 MG TABLET PEG SCH (10:57)
[2018-05-29 11:07] LABS: ANION GAP 18 (5-19); BLOOD UREA NITROGEN 54 mg/dL (7-20); CALCIUM 10.8 mg/dL (8.4-10.2); CARBON DIOXIDE 19 mmol/L (22-30); CHLORIDE 109 mmol/L (98-107); GLUCOSE 182 mg/dL (75-110); POTASSIUM 3.9 mmol/L (3.6-5.0); SODIUM 145.8 mmol/L (137-145)
[2018-05-29] MEDS: PIPERACILLIN SODIUM/TAZOBACTAM 2.25 GM in NORMAL SALINE 50 ML IV SCH ×3 (11:48→23:42)
--- NOTE | 2018-05-29 13:41 | PDOC PROGRESS REPORT ---
Subjective Progress Note for:: 05/29/18 Subjective:: Patient remain on vent support via tracheostomy. Tolerating enteral tube feeding with rate at 45mL/hour. No reported fever. Reason For Visit: CHRNIC RESPIRATORY FAILURE S/P TRACHEOSTOMY ON Physical Exam Vital Signs: Temp Pulse Resp BP Pulse Ox 99.3 F 86 25 H 149/63 H 94 05/29/18 11:13 05/29/18 11:23 05/29/18 11:23 05/29/18 11:13 05/29/18 11:23 Pulse Oximeter Continuous Start: 05/18/18 08: 48 Freq: RTQ4 Status: Active Document 05/29/18 11:23 TPO (Rec: 05/29/18 11:39 TPO [email or web address]) Pulse Oximetry Assessment Oxygen Saturation (92-100) 94 Oxygen Delivery Method Mechanical Ventilator Fraction of Inspired Oxygen (FIO2) 70 Equipment Usage Equipment in Use Continuous SpO2 Machine # 9 Intake & Output 05/28/18 05/29/18 05/30/18 06:59 06:59 06:59 Intake Total 3133 1572 409 Output Total 1600 1050 Balance 1533 522 409 Weight 72.1 kg 71.6 kg Physical Exam: General appearance: PRESENT: no acute distress, well-developed, well-nourished Head exam: PRESENT: atraumatic, normocephalic Ear exam: PRESENT: normal external ear exam Mouth exam: PRESENT: moist Neck exam: PRESENT: tracheostomy Respiratory exam: PRESENT: clear to auscultation monica, decreased breath sounds - at lung bases Cardiovascular exam: PRESENT: RRR. ABSENT: diastolic murmur, rubs, systolic murmur GI/Abdominal exam: PRESENT: normal bowel sounds, soft, other - PEG site dressing okay.. ABSENT: distended, guarding, mass, organomegaly, rebound, tenderness Extremities exam: PRESENT: right AKA. ABSENT: pedal edema Musculoskeletal exam: PRESENT: deformity - related to multiple joints involvement with arthritis Neurological exam: PRESENT: alert, awake Psychiatric exam: ABSENT: agitated, anxious Skin exam: PRESENT: dry, warm, left paranasal lesion is not actively bleeding at this time, other -improving left heel stage 2 pressure ulcer Results Laboratory Results: 05/29/18 10:34 05/29/18 10:34 05/29/18 05/29/18 10:34 10:34 WBC 16.7 H RBC 3.51 L Hgb 9.2 L Hct 28.3 L MCV 81 MCH 26.1 L MCHC 32.5 RDW 20.5 H Plt Count 427 Seg Neutrophils % 61.8 Lymphocytes % 23.4 Monocytes % 8.0 Eosinophils % 6.7 H Basophils % 0.1 Absolute Neutrophils 10.3 H Absolute Lymphocytes 3.9 Absolute Monocytes 1.3 Absolute Eosinophils 1.1 H Absolute Basophils 0.0 Sodium 145.8 H Potassium 3.9 Chloride 109 H Carbon Dioxide 19 L Anion Gap 18 BUN 54 H Creatinine 1.21 Est GFR ( Amer) 52 L Est GFR (Non-Af Amer) 43 L Glucose 182 H Calcium 10.8 H 05/23/18 11:10 Sputum Gram Stain - Final 05/23/18 11:10 Sputum Sputum Culture - Final Pseudomonas Aeruginosa Stenotrophomonas Maltophilia Impressions: Chest X-Ray 05/25/18 05:00 IMPRESSION: No interval change with persistent right lower lobe pneumonia. Small bilateral pleural effusions. Assessment & Plan - Diagnosis (1) Chronic respiratory failure with hypoxia and hypercapnia Is this a current diagnosis for this admission?: Yes (2) Tracheostomy dependence Is this a current diagnosis for this admission?: Yes (3) COPD (chronic obstructive pulmonary disease) Qualifiers: COPD type: unspecified COPD Qualified Code(s): J44.9 - Chronic obstructive pulmonary disease, unspecified Is this a current diagnosis for this admission?: Yes (4) CHF (congestive heart failure) Qualifiers: Heart failure type: diastolic Heart failure chronicity: chronic Qualified Code(s): I50.32 - Chronic diastolic (congestive) heart failure Is this a current diagnosis for this admission?: Yes (5) Hypertension Qualifiers: Hypertension type: essential hypertension Is this a current diagnosis for this admission?: Yes (6) Type 2 diabetes mellitus Qualifiers: Diabetes mellitus senior care insulin use: with senior care use Diabetes mellitus complication status: with neurologic complications Diabetes mellitus complication detail: with polyneuropathy Qualified Code(s): E11.42 - Type 2 diabetes mellitus with diabetic polyneuropathy Is this a current diagnosis for this admission?: Yes (7) Dementia Qualifiers: Dementia type: Alzheimer's disease Alzheimer's disease onset: late-onset Dementia behavioral disturbance: without behavioral disturbance Qualified Code (s): G30.1 - Alzheimer's disease with late onset; F02.80 - Dementia in other diseases classified elsewhere without behavioral disturbance; F02.80 - Dementia in other diseases classified elsewhere without behavioral disturbance; F02.80 - Dementia in other diseases classified elsewhere without behavioral disturbance Is this a current diagnosis for this admission?: Yes (8) Pressure ulcer of left heel, stage 2 Is this a current diagnosis for this admission?: Yes - Time Time Spent with patient: 25-34 minutes Medications reviewed and adjusted accordingly: Yes Anticipated discharge: Home with Homehealth - as per family decision Within: Other - Inpatient Certification Based on my medical assessment, after consideration of the patient's comorbidities, presenting symptoms, or acuity I expect that the services needed warrant INPATIENT care.: Yes I certify that my determination is in accordance with my understanding of Medicare's requirements for reasonable and necessary INPATIENT services [42 CFR 412.3e].: Yes Medical Necessity: Need Close Monitoring Due to Risk of Patient Decompensation, Need For IV Fluids, Need For Continuous Telemetry Monitoring, Need for Nebulizer Therapy and Monitoring of Response, Need for IV Antibiotics, Risk of Complication if Not Cared For in Hospital Post Hospital Care: D/C Director Of Radiology Documentation - Plan Summary Plan Summary: See covering attending physician orders.
--- NOTE | 2018-05-29 13:58 | PROGRESS NOTE E ---
Progress Note NAME: BRIANA BRADY : 1935 AGE: 82Y DATE: 05/29/2018 ROOM: 303 SUBJECTIVE: Patient is an 82-year-old female who came with acute on chronic respiratory failure, requiring invasive mechanical ventilation via tracheostomy. Patient has been doing well over the last 3 to 4 hours. There are no fever spikes. No nausea, vomiting, diarrhea. OBJECTIVE: VITAL SIGNS: Temperature is 99.3, with a T-max of 99.3. The heart rate is 86, blood pressure is 149/63, respirations 20, saturation 94% on 70% FiO2. GENERAL: Patient is awake, alert, coherent, oriented, afebrile, not in apparent respiratory distress, with saturation of 94% on SIMV rate of 18, tidal volume of 450, the FiO2 of 70% to keep saturation 91% to 94%, pressure support of 10, PEEP of 5. EYES: No jaundice or pallor. EARS, NOSE AND THROAT: No ear drainage. No nasal discharge. HEAD AND NECK: No scalp swelling or tenderness. Neck supple. CHEST AND LUNGS: No wheezing, no rhonchi, no coarse crackles. CARDIOVASCULAR: S1, S2 distant. Normal rate, regular rhythm. ABDOMEN: Flabby. Positive bowel sounds. Soft, nondistended. EXTREMITIES: No joint swelling or cellulitis. LABORATORY DATA: CBC done today showed white count of 16.7 and hemoglobin is 9.2, hematocrit is 28.3 and platelet count is 427,000. Chemistry done today showed sodium of 125.8, potassium is 3.9, chloride 109, CO2 is 19, BUN is 54, creatinine is 1.21, glucose 182 and calcium is 10.8. ASSESSMENT: 1. ACUTE ON CHRONIC RESPIRATORY FAILURE REQUIRING INVASIVE MECHANICAL VENTILATION VIA TRACHEOSTOMY TUBE. Appears to be doing okay on the current ventilator settings. 2. PNEUMONIA. Tracheal specimen positive for pseudomonas. Appears to be improving. Currently on IV Zosyn. PLAN/RECOMMENDATIONS: Continue IV antibiotic. Will continue ventilator support. Patient may need home health nurse to assist family to manage ventilator. DICTATING PHYSICIAN: JOCELYN MIRANDA MD,PURNIMA,MPH [id number] PHY#: [id number] ID: [id number] JOB#: [id number] ACCT: [id number] cc: > MAXD
[2018-05-30] MEDS: INSULIN LISPRO 100 UNIT/ML 3 ML VIAL SUBCUT PRN ×4 (00:29→18:13)
[2018-05-30] MEDS: IPRATROPIUM/ALBUTEROL 0.5-2.5 MG/3 ML AMPUL NEB SCH ×6 (00:56→20:37)
[2018-05-30] MEDS: LANSOPRAZOLE 30 MG TAB.RAP.DR PO SCH (05:40)
[2018-05-30] MEDS: PIPERACILLIN SODIUM/TAZOBACTAM 2.25 GM in NORMAL SALINE 50 ML IV SCH ×4 (05:40→23:19)
[2018-05-30] MEDS: BUDESONIDE NEB 0.5 MG/2 ML AMPUL NEB SCH ×2 (08:22→20:37)
[2018-05-30] MEDS: ASPIRIN 81 MG TABLET, CHEWABLE PO SCH (10:02)
[2018-05-30] MEDS: BACITRACIN OPH OINT 3.5 GM OU SCH (10:03)
[2018-05-30] MEDS: PREDNISONE 5 MG TABLET PEG SCH (10:03)
[2018-05-30] MEDS: FUROSEMIDE 40 MG TABLET PO SCH ×2 (10:04→18:12)
[2018-05-30] MEDS: INSULIN DETEMIR 100 UNIT/ML 3 ML PEN SUBCUT SCH (10:04)
[2018-05-30] MEDS: ENOXAPARIN SODIUM INJ 30 MG/0.3 ML DISP.SYRIN SUBCUT SCH (10:05)
[2018-05-30] MEDS: MULTIVITAMIN ORAL LIQUID 60 ML PO SCH (10:05)
[2018-05-30] MEDS: MEMANTINE HCL 10 MG TABLET PO SCH (10:06)
[2018-05-30] MEDS: LISINOPRIL 10 MG TABLET PEG SCH (10:06)
[2018-05-30] MEDS: AMLODIPINE BESYLATE 10 MG TABLET PEG SCH (10:06)
[2018-05-30] MEDS: ASCORBIC ACID 500 MG TABLET PEG SCH (10:07)
[2018-05-30] MEDS: SENNOSIDES/DOCUSATE 8.6-50 MG 1 EACH TABLET PEG SCH (10:07)
--- NOTE | 2018-05-30 15:22 | PROGRESS NOTE E ---
Progress Note NAME: BRIANA BRADY : 1935 AGE: 82Y DATE: 05/28/2018 ROOM: 334 SUBJECTIVE: Patient is a 82-year-old female who came in with acute on chronic respiratory failure status post tracheostomy change, requiring invasive mechanical ventilation, who presented with a pneumonia Pseudomonas aeruginosa. Patient appeared to be doing well. No fever. No temperature spike for the last 24 hours with a temperature of 97.8 with a T-max of 98.1. Patient tolerated the G-tube feeding. No vomiting. No diarrhea. OBJECTIVE: GENERAL: Patient is awake, afebrile, not in apparent respiratory distress, nonverbal. VITAL SIGNS: Heart rate of 79, blood pressure is 137/81, respiratory rate 18, saturation is 100% on 30% FiO2, SIMV rate of 18, tidal volume 450, pressure support of 10, PEEP of 5, minute ventilation is 8.1. EYES: No jaundice or pallor. EARS, NOSE AND THROAT: No ear drainage noted. No nasal discharge. CHEST AND LUNGS: No wheezing. No rhonchi noted. No coarse crackles. CARDIOVASCULAR: S1, S2 distinct. Normal rate, regular rhythm. ABDOMEN: Flabby. Positive bowel sounds. Soft, nondistended, nontender. EXTREMITIES: No joint swelling. No cellulitis. LABORATORY DATA: No CBC or chemistry done today. ASSESSMENT: 1. ACUTE ON CHRONIC RESPIRATORY FAILURE, APPEARS TO BE IMPROVING, CURRENTLY STABLE. CURRENTLY REQUIRING 30% FIO2 WITH OXYGEN SATURATION OF 100%. 2. PNEUMONIA PSEUDOMONAS -APPEARS TO BE IMPROVING. PLAN AND RECOMMENDATIONS: 1. Will continue the Zosyn IV for the next few days until patient is discharged. 2. Will discontinue the IV vancomycin now. The patient has received the IV vancomycin for about a week. Sputum culture were negative for MRSA. 4. We will decrease the prednisone dose to 2.5 mg daily and wean it off. 5. Continue IV Zosyn for now and we will discontinue the IV vancomycin. 6. Continue the nebulizer treatment DuoNeb. DICTATING PHYSICIAN: JOCELYN MIRANDA MD,PURNIMA,MPH [id number] [id number] PHY#: [id number] ID: [id number] JOB#: [id number] ACCT: [id number] cc: > MTDD
--- NOTE | 2018-05-30 21:06 | PROGRESS NOTE E ---
Progress Note NAME: BRIANA BRADY : 1935 AGE: 82Y DATE: 05/30/2018 ROOM: 334 SUBJECTIVE: The patient is an 82-year-old female who came in with acute on chronic respiratory failure requiring invasive mechanical ventilation via tracheostomy tube. The patient has been doing well over the last 24 to 48 hours, has standard endotracheal tube secretions. No fever spikes. No vomiting. No diarrhea. Tolerated the G-tube feeding well. OBJECTIVE: GENERAL: The patient appeared awake, alert but did not appear to be responsive to verbal questions, not in apparent respiratory distress. VITAL SIGNS: With a temperature of 99.3 and a temperature maximum of 99.3. The heart rate is 93. Blood pressure is 157/67. Respiratory rate of 16. Saturation is 91% on 30% FIO2, pressure support of 10, PEEP of 5, SIMV rate of 18, tidal volume of 450, minute ventilation is 8.1. Peak airway pressure is 27, spontaneous tidal volume is 213 mL. EYES: No jaundice or pallor. EARS, NOSE, AND THROAT: No ear drainage. No nasal discharge. NECK: Tracheostomy is in place. CHEST: No mass. No wheezing. No rhonchi. No coarse crackles. CARDIOVASCULAR: S1, S2 is a normal and distinct. Regular rhythm. ABDOMEN: Flabby, positive bowel sounds, soft, nondistended. EXTREMITIES: No joint swelling or cellulitis. LABORATORY: Chemistry/CBC not done today. ASSESSMENT: 1. ACUTE ON CHRONIC RESPIRATORY FAILURE, APPEARS TO BE IMPROVING AND STABLE. 2. PNEUMONIA, PSEUDOMONAS AERUGINOSA AND STENOTROPHOMONAS MALTOPHILIA BASED ON SPUTUM CULTURE DONE ON April, CURRENTLY ON IV ZOSYN, APPEARS TO BE TOLERATING IT WELL. PLAN/RECOMMENDATIONS: 1. May finish the 2 weeks of Zosyn at this time. 2. The patient is doing well even off IV vancomycin. Sputum cultures are negative for MRSA. 3. Continue to optimize ventilator support. 4. Recommend arranging for home health nurse for patient to be discharged home. DICTATING PHYSICIAN: JOCELYN MIRANDA MD,PURNIMA,MPH [id number] PHY#: [id number] 2009 ID: [id number] JOB#: [id number] ACCT: [id number] cc:JOCELYN MIRANDA M.D. > [facility]
--- NOTE | 2018-05-30 21:17 | PDOC PROGRESS REPORT ---
Subjective Progress Note for:: 05/30/18 Subjective:: Patient condition about the same awaiting guidance from discharge planning regarding disposition Reason For Visit: CHRNIC RESPIRATORY FAILURE S/P TRACHEOSTOMY ON Physical Exam Vital Signs: Temp Pulse Resp BP Pulse Ox 99.3 F 88 18 157/67 H 99 05/30/18 15:37 05/30/18 20:15 05/30/18 16:08 05/30/18 15:37 05/30/18 16:08 Pulse Oximeter Continuous Start: 05/18/18 08: 48 Freq: RTQ4 Status: Active Document 05/30/18 16:08 [facility] (Rec: 05/30/18 17:57 [facility] [email or web address]) Pulse Oximetry Assessment Oxygen Saturation (92-100) 99 Oxygen Delivery Method Mechanical Ventilator Fraction of Inspired Oxygen (FIO2) 65 Equipment Usage Equipment in Use Continuous SpO2 Machine # [id number] Intake & Output 05/29/18 05/30/18 05/31/18 06:59 06:59 06:59 Intake Total 1572 1715 997 Output Total 1050 925 850 Balance 522 790 147 Weight 71.6 kg 72.2 kg General appearance: PRESENT: no acute distress Eye exam: PRESENT: PERRLA Respiratory exam: PRESENT: rales Cardiovascular exam: PRESENT: +S1, +S2 Neurological exam: PRESENT: alert Results Laboratory Results: 05/29/18 10:34 05/29/18 10:34 Impressions: Chest X-Ray 05/25/18 05:00 IMPRESSION: No interval change with persistent right lower lobe pneumonia. Small bilateral pleural effusions. Assessment & Plan - Diagnosis (1) Acute respiratory failure Qualifiers: Respiratory failure complication: hypoxia and hypercapnia Qualified Code(s) : J96.01 - Acute respiratory failure with hypoxia; J96.02 - Acute respiratory failure with hypercapnia; J96.02 - Acute respiratory failure with hypercapnia; J96.02 - Acute respiratory failure with hypercapnia Is this a current diagnosis for this admission?: Yes (2) MRSA pneumonia Qualifiers: Laterality: unspecified laterality Lung location: unspecified part of lung Qualified Code(s): J15.212 - Pneumonia due to Methicillin resistant Staphylococcus aureus Is this a current diagnosis for this admission?: Yes (3) COPD (chronic obstructive pulmonary disease) Qualifiers: COPD type: unspecified COPD Qualified Code(s): J44.9 - Chronic obstructive pulmonary disease, unspecified Is this a current diagnosis for this admission?: Yes (4) COPD (chronic obstructive pulmonary disease) Qualifiers: COPD type: unspecified COPD Qualified Code(s): J44.9 - Chronic obstructive pulmonary disease, unspecified Is this a current diagnosis for this admission?: Yes
[2018-05-30] MEDS: ONDANSETRON HCL 8 MG TABLET PEG PRN (23:18)
[2018-05-31] MEDS: IPRATROPIUM/ALBUTEROL 0.5-2.5 MG/3 ML AMPUL NEB SCH ×6 (00:25→20:50)
[2018-05-31] MEDS: INSULIN LISPRO 100 UNIT/ML 3 ML VIAL SUBCUT PRN ×4 (00:29→17:27)
[2018-05-31] MEDS: PIPERACILLIN SODIUM/TAZOBACTAM 2.25 GM in NORMAL SALINE 50 ML IV SCH ×3 (05:26→17:27)
[2018-05-31] MEDS: LANSOPRAZOLE 30 MG TAB.RAP.DR PO SCH (05:26)
[2018-05-31] MEDS: BUDESONIDE NEB 0.5 MG/2 ML AMPUL NEB SCH ×2 (07:58→20:49)
[2018-05-31] MEDS: ASPIRIN 81 MG TABLET, CHEWABLE PO SCH (11:08)
[2018-05-31] MEDS: PREDNISONE 5 MG TABLET PEG SCH (11:09)
[2018-05-31] MEDS: INSULIN DETEMIR 100 UNIT/ML 3 ML PEN SUBCUT SCH (11:10)
[2018-05-31] MEDS: FUROSEMIDE 40 MG TABLET PO SCH ×2 (11:10→17:27)
[2018-05-31] MEDS: MULTIVITAMIN ORAL LIQUID 60 ML PO SCH (11:11)
[2018-05-31] MEDS: ENOXAPARIN SODIUM INJ 30 MG/0.3 ML DISP.SYRIN SUBCUT SCH (11:11)
[2018-05-31] MEDS: MEMANTINE HCL 10 MG TABLET PO SCH (11:11)
[2018-05-31] MEDS: LISINOPRIL 10 MG TABLET PEG SCH (11:12)
[2018-05-31] MEDS: AMLODIPINE BESYLATE 10 MG TABLET PEG SCH (11:12)
[2018-05-31] MEDS: ASCORBIC ACID 500 MG TABLET PEG SCH (11:13)
[2018-05-31] MEDS: SENNOSIDES/DOCUSATE 8.6-50 MG 1 EACH TABLET PEG SCH (11:13)
[2018-05-31] MEDS: MOXIFLOXACIN HCL 0.5% OPH SOLN 3 ML OU SCH ×2 (14:10→17:27)
--- NOTE | 2018-05-31 16:42 | PDOC DISCHARGE SUMMARY ---
General - Admit/Disc Date/PCP Admission Date/Primary Care Provider: 05/17/18 20:32 BAKARI BECKER MD Discharge Date: 05/31/18 - Discharge Diagnosis (1) Acute respiratory failure Is this a current diagnosis for this admission?: Yes (2) MRSA pneumonia Is this a current diagnosis for this admission?: Yes (3) COPD (chronic obstructive pulmonary disease) Is this a current diagnosis for this admission?: Yes (4) COPD (chronic obstructive pulmonary disease) Is this a current diagnosis for this admission?: Yes (5) Pseudomonal pneumonia Is this a current diagnosis for this admission?: Yes (6) Urinary tract infection Is this a current diagnosis for this admission?: Yes (7) 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 - Additional Information Discharge Diet: Tube Feeding (Comments) Home Medications: Acetaminophen [Tylenol 325 mg Tablet] 325 mg PEG Q6HP PRN 05/17/18 Acidophilus/Bulgaricus [Lactinex Packet] 1 packet PEG DAILY PRN 05/17/18 Albuterol Sulfate 0.63mg/3ml 0.63 mg NEB Q6HP PRN 05/17/18 Amlodipine Besylate [Norvasc 10 mg Tablet] 10 mg PEG DAILY 05/17/18 Aspirin [Ecotrin 81 mg EC Tablet] 81 mg PEG DAILY 05/17/18 Budesonide [Pulmicort Neb 0.5 mg/2 ml Ampul] 0.5 mg NEB RTQ12 05/17/18 Insulin Aspart [Novolog Insulin (Aspart) 100 unit/mL] 0 unit SUBCUT .SLD SCALE 05/17/18 Insulin Detemir [Levemir Flextouch] 10 unit SQ DAILY 05/17/18 Lisinopril [Prinivil 40 mg Tablet] 40 mg PEG DAILY 05/17/18 Sennosides/Docusate Sodium [Senna-S Tablet] 1 each PEG DAILY 05/17/18 Furosemide [Lasix 40 mg Tablet] 40 mg PO BID #0 tablet 05/31/18 Memantine HCl [Namenda 10 mg Tablet] 10 mg PO DAILY tablet 05/31/18 History of Present Illness History of Present Illness: BRIANA BRADY is a 82 year old female she was transferred back from [facility] for continuity of care in this hospital, she was transferred to [facility] initially because she had right lung atelectasis, she needed bronchoscopy for unplugging of mucous plug in the upper airway. When she arrived at [facility] the right lung was reexpanded, the bronchoscopy was not done and the tracheostomy was not change, she stayed in [facility] for 30 days before she was transferred back to this hospital. Hospital Course Hospital Course: Patient was treated with antibiotic for Pseudomonas pneumonia with Zosyn she has Pseudomonas pneumonia and also Pseudomonas UTI. Patient refused care for many days because she wants to but patient daughter refused palliative care and also hospice referral. She is the POA, this patient is hospice appropriate the patient's daughter continued to refuse hospice care for this patient. She is vent dependent and also on continuous tube feed essentially bedbound status post amputation of the right leg she has basal cell cancer on the face that is growing rapidly is extremely poor quality of life extreme deconditioning, multiple hospital admissions in various facilities including [facility], [facility], [facility] in [facility]. [facility] refused to accept this patient in transfer because she has to be out of acute care setting for 60 days which is not the case for this patient she has been in acute care setting for almost 6 months continuously. She has persistent leukocytosis partly due to prednisone, the latest x-ray showed improvement she be discharged home with home health with vent care. I anticipate that this patient will return back to the emergency room because she is hospice appropriate at this time. 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 she is prone to pneumonia and other infection. Physical Exam Vital Signs: Temp Pulse Resp BP Pulse Ox 98.8 F 82 24 H 143/65 H 97 05/31/18 15:33 05/31/18 15:36 05/31/18 15:36 05/31/18 15:33 05/31/18 15:36 Pulse Oximeter Continuous Start: 05/18/18 08: 48 Freq: RTQ4 Status: Active Document 05/31/18 15:36 [facility] (Rec: 05/31/18 15:57 [facility] [email or web address]) Pulse Oximetry Assessment Oxygen Saturation (92-100) 93 Oxygen Delivery Method Mechanical Ventilator Fraction of Inspired Oxygen (FIO2) 45 Equipment Usage Equipment in Use Continuous SpO2 Machine # 9 Intake & Output 05/30/18 05/31/18 06/01/18 06:59 06:59 06:59 Intake Total 1715 1097 505 Output Total 925 1525 200 Balance 790 -428 305 Weight 72.2 kg 71.7 kg Eye exam: PRESENT: PERRLA Neck exam: PRESENT: tracheostomy Respiratory exam: PRESENT: rhonchi Cardiovascular exam: PRESENT: +S1, +S2 GI/Abdominal exam: PRESENT: other - Tube feed Extremities exam: PRESENT: right AKA Neurological exam: PRESENT: alert Results Laboratory Results: 05/29/18 10:34 05/29/18 10:34 Impressions: Chest X-Ray 05/25/18 05:00 IMPRESSION: No interval change with persistent right lower lobe pneumonia. Small bilateral pleural effusions. Qualifiers - * PATIENT BEING DISCHARGED WITH ANY OF THE FOLLOWING DIAGNOSIS: No
[2018-06-01] MEDS: PIPERACILLIN SODIUM/TAZOBACTAM 2.25 GM in NORMAL SALINE 50 ML IV SCH ×5 (00:29→23:38)
[2018-06-01] MEDS: IPRATROPIUM/ALBUTEROL 0.5-2.5 MG/3 ML AMPUL NEB SCH ×6 (00:39→20:01)
--- NOTE | 2018-06-01 08:27 | RADIOLOGY REPORT (SQ) ---
EXAM DESCRIPTION: CHEST SINGLE VIEW COMPLETED DATE/TIME: 05/31/2018 9:37 pm REASON FOR STUDY: on ventilator COMPARISON: Chest films 05/20/2018, 05/21/2018, 05/23/2018, 05/25/2018 EXAM PARAMETERS: NUMBER OF VIEWS: One view. TECHNIQUE: Single frontal radiographic view of the chest acquired. RADIATION DOSE: NA LIMITATIONS: None. FINDINGS: LUNGS AND PLEURA: Re-accumulation of a small to moderate right pleural effusion opacifying the right lower hemithorax. Right middle and lower lobe airspace disease atelectasis versus pneumon ia. Left lung well inflated with minimal left basilar atelectasis. No pleural effusion. No pneumothorax . MEDIASTINUM AND HILAR STRUCTURES: No masses. Contour normal. HEART AND VASCULAR STRUCTURES: Heart normal in size. Normal vasculature. BONES: No acute findings. HARDWARE: Tracheostomy tube tip in the upper trachea. OTHER: No other significant finding. IMPRESSION: Re-accumulation of a small a moderate right pleural effusion with right middle and lower lobe versus disease TECHNICAL DOCUMENTATION: JOB ID: [id number] [email or web address]- All Rights Reserved Reading location - IP/workstation name: [email or web address]
[2018-06-01] MEDS: BUDESONIDE NEB 0.5 MG/2 ML AMPUL NEB SCH ×2 (09:16→20:02)
[2018-06-01] MEDS: LANSOPRAZOLE 30 MG TAB.RAP.DR PO SCH (09:47)
[2018-06-01] MEDS: ENOXAPARIN SODIUM INJ 30 MG/0.3 ML DISP.SYRIN SUBCUT SCH (09:55)
[2018-06-01] MEDS: INSULIN DETEMIR 100 UNIT/ML 3 ML PEN SUBCUT SCH (09:56)
[2018-06-01] MEDS: MEMANTINE HCL 10 MG TABLET PO SCH (09:57)
[2018-06-01] MEDS: SENNOSIDES/DOCUSATE 8.6-50 MG 1 EACH TABLET PEG SCH (09:57)
[2018-06-01] MEDS: ASPIRIN 81 MG TABLET, CHEWABLE PO SCH (09:57)
[2018-06-01] MEDS: AMLODIPINE BESYLATE 10 MG TABLET PEG SCH (09:58)
[2018-06-01] MEDS: LISINOPRIL 10 MG TABLET PEG SCH (09:59)
[2018-06-01] MEDS: FUROSEMIDE 40 MG TABLET PO SCH ×2 (10:00→17:35)
[2018-06-01] MEDS: PREDNISONE 5 MG TABLET PEG SCH (10:00)
[2018-06-01] MEDS: ASCORBIC ACID 500 MG TABLET PEG SCH (10:01)
[2018-06-01] MEDS: MULTIVITAMIN ORAL LIQUID 60 ML PO SCH (10:02)
[2018-06-01] MEDS: MOXIFLOXACIN HCL 0.5% OPH SOLN 3 ML OU SCH ×3 (10:03→17:36)
--- NOTE | 2018-06-01 11:00 | PROGRESS NOTE E ---
Progress Note NAME: BRIANA BRADY : 1935 AGE: 82Y DATE: 05/31/2018 ROOM: 334 SUBJECTIVE: Patient is an 82-year-old female who came in with acute on chronic respiratory failure requiring invasive mechanical ventilation with a tracheostomy tube. Patient came in with a pneumonia, sputum culture positive for Pseudomonas pneumoniae and Stenotrophomonas maltophila. Previously treated for MRSA pneumonia. Currently, the patient has been afebrile for the last 24-48 hours with a temperature of 98.8 with a T-max of 99.6. No vomiting. No diarrhea. Scanty tracheostomy tube secretions. The patient is waiting for discharge to home with a home health nurse to take care of the patient's ventilator. Family insisted that patient is not hospice and did not want hospice care to get involved. Patient is a FULL CODE. The patient is to follow with her pulmonary doctor closely, once discharged. OBJECTIVE: GENERAL: Patient appeared to be sleepy, afebrile, not in apparent respiratory distress. VITAL SIGNS: Temperature of 98.8 with a heart rate of 92, blood pressure is 143/65, respiratory rate of 24, saturation is 97% on 45% FiO2 and tidal volume 450, pressure support of 10, PEEP of 5, and rate of 18. EYES: No jaundice or pallor. EARS, NOSE AND THROAT: No ear drainage noted. No nasal discharge. The oral tracheostomy tube is in place. CHEST AND LUNGS: No wheezing. No rhonchi noted. No coarse crackles. CARDIOVASCULAR: S1, S2 distinct. Normal rate, regular rhythm. ABDOMEN: Flabby. Positive bowel sounds. Soft, nondistended, nontender. EXTREMITIES: No joint swelling. No cellulitis. LABORATORY DATA: Chemistry done today showed sodium 145, potassium 3.9, chloride 109, CO2 is 19, BUN 54, creatinine 1.21, glucose 182, calcium is 10.8. ASSESSMENT: 1. ACUTE ON CHRONIC RESPIRATORY FAILURE, CURRENTLY APPEARS TO BE STABLE. 2. PNEUMONIA PSEUDOMONAS APPEARS TO BE IMPROVING. PLAN AND RECOMMENDATIONS: 1. Patient may be able to go home with the same ventilator settings. 2. Recommend a home health nurse to take care of patient's vent. 3. Recommend training of family members to help with the ventilator care of the patient. 4. Patient may be able to go home without antibiotics. 5. Recommend frequent suctioning. 6. Recommend continuation of nebulizer treatment every 6 hours. May use DuoNeb for nebulizer treatment. 7. May use Pulmicort nebulizer treatment every 12 hours. 8. Patient will follow with her automotive collision estimator (Dr Christianson) after discharge. DICTATING PHYSICIAN: JOCELYN MIRANDA MD,PURNIMA,MPH [id number] [id number] PHY#: [id number] 2007 ID: [id number] JOB#: [id number] ACCT: [id number] cc: > MTDD
[2018-06-01] MEDS: INSULIN LISPRO 100 UNIT/ML 3 ML VIAL SUBCUT PRN ×2 (13:16→17:52)
[2018-06-02] MEDS: INSULIN LISPRO 100 UNIT/ML 3 ML VIAL SUBCUT PRN ×4 (00:28→19:44)
[2018-06-02] MEDS: IPRATROPIUM/ALBUTEROL 0.5-2.5 MG/3 ML AMPUL NEB SCH ×6 (00:48→20:09)
[2018-06-02 04:09] LABS: ABSOLUTE BASOPHILS # (AUTO) 0.2 10^3/uL (0.0-0.2); ABSOLUTE EOSINOPHILS # (AUTO) 0.4 10^3/uL (0.0-0.6); ABSOLUTE LYMPHOCYTES (AUTO) 2.2 10^3/uL (0.5-4.7); ABSOLUTE MONOCYTES (AUTO) 1.3 10^3/uL (0.1-1.4); ABSOLUTE NEUT (AUTO) 14.8 10^3/uL (1.7-8.2); BASOPHILS % (AUTO) 0.8 % (0-2); EOSINOPHILS % (AUTO) 2.3 % (0-6); HEMATOCRIT 31.8 % (36.0-47.0); HEMOGLOBIN 10.1 g/dL (12.0-15.5); LYMPHOCYTES % (AUTO) 11.9 % (13-45); MEAN CORPUSCULAR HEMOGLOBIN 25.7 pg (27.0-33.4); MEAN CORPUSCULAR HGB CONC 31.8 g/dL (32.0-36.0); MEAN CORPUSCULAR VOLUME 81 fl (80-97); MONOCYTES % (AUTO) 6.7 % (3-13); PLATELET COUNT 430 10^3/uL (150-450); RED BLOOD COUNT 3.93 10^6/uL (3.72-5.28); RED CELL DISTRIBUTION WIDTH 20.8 % (11.5-14.0); SEGMENTED NEUTROPHILS % (AUTO) 78.3 % (42-78); TOTAL CELLS COUNTED % (AUTO) 100 %; WHITE BLOOD COUNT 18.9 10^3/uL (4.0-10.5)
[2018-06-02 04:27] LABS: ANION GAP 17 (5-19); BLOOD UREA NITROGEN 48 mg/dL (7-20); CALCIUM 11.7 mg/dL (8.4-10.2); CARBON DIOXIDE 18 mmol/L (22-30); CHLORIDE 111 mmol/L (98-107); GLUCOSE 208 mg/dL (75-110); SODIUM 146.4 mmol/L (137-145)
[2018-06-02] MEDS: LANSOPRAZOLE 30 MG TAB.RAP.DR PO SCH (06:21)
[2018-06-02] MEDS: PIPERACILLIN SODIUM/TAZOBACTAM 2.25 GM in NORMAL SALINE 50 ML IV SCH ×3 (06:22→18:29)
[2018-06-02] MEDS: BUDESONIDE NEB 0.5 MG/2 ML AMPUL NEB SCH ×2 (08:28→20:09)
[2018-06-02] MEDS: FUROSEMIDE 40 MG TABLET PO SCH ×2 (10:57→18:29)
[2018-06-02] MEDS: LISINOPRIL 10 MG TABLET PEG SCH (10:57)
[2018-06-02] MEDS: MEMANTINE HCL 10 MG TABLET PO SCH (10:57)
[2018-06-02] MEDS: ENOXAPARIN SODIUM INJ 30 MG/0.3 ML DISP.SYRIN SUBCUT SCH (10:57)
[2018-06-02] MEDS: AMLODIPINE BESYLATE 10 MG TABLET PEG SCH (10:57)
[2018-06-02] MEDS: PREDNISONE 5 MG TABLET PEG SCH (10:58)
[2018-06-02] MEDS: ASCORBIC ACID 500 MG TABLET PEG SCH (10:58)
[2018-06-02] MEDS: INSULIN DETEMIR 100 UNIT/ML 3 ML PEN SUBCUT SCH (10:58)
[2018-06-02] MEDS: MOXIFLOXACIN HCL 0.5% OPH SOLN 3 ML OU SCH ×3 (10:59→18:28)
[2018-06-02] MEDS: SENNOSIDES/DOCUSATE 8.6-50 MG 1 EACH TABLET PEG SCH (10:59)
[2018-06-02] MEDS: MULTIVITAMIN ORAL LIQUID 60 ML PO SCH (10:59)
[2018-06-02] MEDS: ASPIRIN 81 MG TABLET, CHEWABLE PO SCH (11:00)
[2018-06-02 13:02] LABS: APPEARANCE,URINE SLIGHTLY-CLOUDY; BILIRUBIN,URINE NEGATIVE (NEGATIVE); COLOR,URINE YELLOW; GLUCOSE, URINE >=500 mg/dL (NEGATIVE); KETONES,URINE NEGATIVE (NEGATIVE); LEUKOCYTE ESTERASE,URINE TRACE (NEGATIVE); NITRITE,URINE NEGATIVE (NEGATIVE); PROTEIN,URINE >=500 mg/dL (NEGATIVE); URINE SPECIFIC GRAVITY 1.016; UROBILINOGEN,URINE NEGATIVE mg/dL (<2.0)
--- NOTE | 2018-06-02 19:00 | PROGRESS NOTE E ---
Progress Note NAME: BRIANA BRADY : 1935 AGE: 82Y DATE: 06/02/2018 ROOM: 334 SUBJECTIVE: Patient is an 82-year-old female who came in with acute on chronic respiratory failure requiring invasive mechanical ventilation via the tracheostomy tube. Patient has had no fever over the last 3 or 4 days. Has scanty endotracheal tube secretions. No vomiting, no diarrhea. Discharge Planning is arranging home placement for the patient with longterm services. OBJECTIVE: GENERAL: Patient appeared awake, afebrile. Appeared to be oriented to person, but nonverbal. VITAL SIGNS: Not in apparent respiratory distress, with temperature of 97.5, with a T-max of 98.9, pulse rate of 93, blood pressure is 134/61, respirations 20 to 24, saturation is 94% on 50% FiO2. SIMV rate of 18, tidal volume of 450, pressure support of 10, PEEP of 5. The FiO2 has been titrated up and down, depending upon the patient's secretions. EYES, EARS, NOSE AND THROAT: No jaundice noted. Tracheostomy tube is in place. CHEST AND LUNGS: No wheezing, no rhonchi, no coarse crackles. CARDIOVASCULAR: S1, S2 distant. Normal rate, regular rhythm. ABDOMEN: Flabby. Positive bowel sounds. Soft, nondistended. EXTREMITIES: No joint swelling or cellulitis. LABORATORY DATA: No CBC done today. Chest x-ray done yesterday showed pleural effusion of the right lung appeared to be stable. Increased aeration involving the right lung. PLAN/RECOMMENDATIONS: 1. Will repeat the CBC and chemistry tomorrow. 2. Will continue the Zosyn for now, every 6 hours. 3. Continue the nebulizer treatment, albuterol and budesonide and ipratropium. 4. Patient may go home on the same vent settings and titrate FiO2 to get saturations 91% to 94%. DICTATING PHYSICIAN: JOCELYN MIRANDA M.D. [id number] PHY#: [id number] ID: [id number] JOB#: [id number] ACCT: [id number] cc: >
[2018-06-02] MEDS ORDERED: VANCOMYCIN HCL INJ 1000 MG VIAL IV SCH (19:45)
[2018-06-02] MEDS ORDERED: PREDNISONE 5 MG TABLET PEG SCH (19:53)
--- NOTE | 2018-06-02 20:30 | RADIOLOGY REPORT (SQ) ---
EXAM DESCRIPTION: CHEST SINGLE VIEW COMPLETED DATE/TIME: 06/02/2018 8:13 pm REASON FOR STUDY: ventilator COMPARISON: 05/31/2018 EXAM PARAMETERS: NUMBER OF VIEWS: One view. TECHNIQUE: Single frontal radiographic view of the chest acquired. RADIATION DOSE: NA LIMITATIONS: None. FINDINGS: LUNGS AND PLEURA: Likely elevation the right hemidiaphragm. Patchy opacification in the l lukas bases. Cannot exclude mild pulmonary edema. MEDIASTINUM AND HILAR STRUCTURES: No masses. Contour normal. HEART AND VASCULAR STRUCTURES: Heart size is borderline. BONES: No acute findings. HARDWARE: None in the chest. OTHER: No other significant finding. IMPRESSION: Borderline cardiomegaly. Cannot exclude mild pulmonary edema. Cannot exclude airspace disease in either lower lobe. TECHNICAL DOCUMENTATION: JOB ID: [id number] [employer]- All Rights Reserved Reading location - IP/workstation name: [email or web address]
--- NOTE | 2018-06-02 21:03 | PDOC PROGRESS REPORT ---
Subjective Progress Note for:: 06/02/18 Subjective:: Patient was discharged few days ago, patient's family applead the discharge presently under review by Medicare Reason For Visit: CHRNIC RESPIRATORY FAILURE S/P TRACHEOSTOMY ON Physical Exam Vital Signs: Temp Pulse Resp BP Pulse Ox 97.6 F 93 22 H 138/62 H 100 06/02/18 19:32 06/02/18 20:10 06/02/18 20:10 06/02/18 19:32 06/02/18 20:10 Pulse Oximeter Continuous Start: 05/18/18 08: 48 Freq: RTQ4 Status: Active Document 06/02/18 20:10 EST (Rec: 06/02/18 20:31 EST [email or web address]) Pulse Oximetry Assessment Oxygen Saturation (92-100) 100 Oxygen Delivery Method Mechanical Ventilator Fraction of Inspired Oxygen (FIO2) 40 Equipment Usage Equipment in Use Continuous SpO2 Machine # 9 Intake & Output 06/01/18 06/02/18 06/03/18 06:59 06:59 06:59 Intake Total 1358 2013 657 Output Total 840 1250 550 Balance 518 763 107 Weight 71.7 kg 71.7 kg Results Laboratory Results: 06/02/18 04:03 06/02/18 04:03 06/02/18 06/02/18 06/02/18 04:03 04:03 09:22 WBC 18.9 H RBC 3.93 Hgb 10.1 L Hct 31.8 L MCV 81 MCH 25.7 L MCHC 31.8 L RDW 20.8 H Plt Count 430 Seg Neutrophils % 78.3 H Lymphocytes % 11.9 L Monocytes % 6.7 Eosinophils % 2.3 Basophils % 0.8 Absolute Neutrophils 14.8 H Absolute Lymphocytes 2.2 Absolute Monocytes 1.3 Absolute Eosinophils 0.4 Absolute Basophils 0.2 Sodium 146.4 H Potassium 4.0 Chloride 111 H Carbon Dioxide 18 L Anion Gap 17 BUN 48 H Creatinine 1.22 Est GFR ( Amer) 51 L Est GFR (Non-Af Amer) 42 L Glucose 208 H Calcium 11.7 H Urine Color YELLOW Urine Appearance SLIGHTLY-CLOUDY Urine pH 5.0 Ur Specific [place] 1.016 Urine Protein >=500 H Urine Glucose (UA) >=500 H Urine Ketones NEGATIVE Urine Blood NEGATIVE Urine Nitrite NEGATIVE Ur Leukocyte Esterase TRACE H Urine WBC (Auto) 5 Urine RBC (Auto) 25 Impressions: Chest X-Ray 06/02/18 19:30 IMPRESSION: Borderline cardiomegaly. Cannot exclude mild pulmonary edema. Cannot exclude airspace disease in either lower lobe. Assessment & Plan - Diagnosis (1) Acute respiratory failure Qualifiers: Respiratory failure complication: hypoxia and hypercapnia Qualified Code(s) : J96.01 - Acute respiratory failure with hypoxia; J96.02 - Acute respiratory failure with hypercapnia; J96.02 - Acute respiratory failure with hypercapnia; J96.02 - Acute respiratory failure with hypercapnia Is this a current diagnosis for this admission?: Yes (2) MRSA pneumonia Qualifiers: Laterality: unspecified laterality Lung location: unspecified part of lung Qualified Code(s): J15.212 - Pneumonia due to Methicillin resistant Staphylococcus aureus Is this a current diagnosis for this admission?: Yes (3) COPD (chronic obstructive pulmonary disease) Qualifiers: COPD type: unspecified COPD Qualified Code(s): J44.9 - Chronic obstructive pulmonary disease, unspecified Is this a current diagnosis for this admission?: Yes (4) COPD (chronic obstructive pulmonary disease) Qualifiers: COPD type: unspecified COPD Qualified Code(s): J44.9 - Chronic obstructive pulmonary disease, unspecified Is this a current diagnosis for this admission?: Yes (5) Pseudomonal pneumonia Is this a current diagnosis for this admission?: Yes (6) Urinary tract infection Is this a current diagnosis for this admission?: Yes (7) 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
[2018-06-02] MEDS: VANCOMYCIN HCL 1,000 MG in DEXTROSE 5%-WATER 250 ML IV SCH (22:33)
[2018-06-03] MEDS: INSULIN LISPRO 100 UNIT/ML 3 ML VIAL SUBCUT PRN ×3 (00:31→14:03)
[2018-06-03] MEDS: IPRATROPIUM/ALBUTEROL 0.5-2.5 MG/3 ML AMPUL NEB SCH ×6 (00:56→20:07)
[2018-06-03] MEDS: LANSOPRAZOLE 30 MG TAB.RAP.DR PO SCH (06:33)
--- NOTE | 2018-06-03 07:01 | PROGRESS NOTE E ---
Progress Note NAME: BRIANA BRADY : 1935 AGE: 82Y DATE: 06/02/2018 ROOM: 334 SUBJECTIVE: The patient is an 82-year-old female , who came in with fhlfq-ds-lmrtpol respiratory failure requiring invasive mechanical ventilation via tracheostomy tube. The patient's white count has been going up for the last few days from 14 on 05/27 to 16.5 on 05/29, and today it was 18.9. The patient is on prednisone 2.5 daily, which is a low dose. Need a blood culture today, results still pending. Repeat the x-ray, results still pending. Did a urine culture, which was unremarkable. The patient's family stated that they were able to suction some yellow thick secretions earlier today. There was no spike in the temperature. The patient is on IV Zosyn 2.25 g IV piggyback q. 6 hours for about 10 days now. The patient has a sputum culture showing Pseudomonas aeruginosa and Stenotrophomonas maltophilia. There were no MRSA organisms noted on the sputum culture. Had 1 episode of vomiting. No diarrhea. No pain. OBJECTIVE: GENERAL: The patient appeared awake, afebrile. Appeared to be responding to verbal stimuli. EYES: No jaundice or pallor. EARS, NOSE, AND THROAT: No ear drainage noted. No nasal discharge. Tracheostomy tube is in place. CHEST AND LUNGS: No wheezing. No rhonchi. No coarse crackles. CARDIOVASCULAR: S1, S2 distinct. Normal rate and rhythm. ABDOMEN: Flabby. Positive bowel sounds. Soft, nondistended, nontender. EXTREMITIES: No joint swelling. No cellulitis. X-RAY STUDIES: Chest x-ray for today is pending. Chest x-ray done 2 days ago showed pulmonary infiltrate right lower lobe, seemed to be maybe due to resolving pneumonia and some pleural effusion. We are repeating the chest x-ray today to see any progression. ASSESSMENT: 1.LEUKOCYTOSIS MAY BE RELATED TO AN UNDERLYING INFECTION. Start the patient again empirically on IV vancomycin. Will consider discontinuing it if we do not find any MRSA in the sputum. 2. ACUTE ON CHRONIC RESPIRATORY FAILURE - currently invasively mechanically ventilated via tracheostomy. PLAN AND RECOMMENDATIONS: 1. We will discontinue the Zosyn tonight. The patient has completed about 10 days of Zosyn. 2. We will start the patient on IV vancomycin empirically for possible MRSA pneumonia. 3. We resent a sputum for culture tonight, with a blood culture. 4. We will repeat the chest x-ray also tonight. 5. The patient may not be ready to be discharged tomorrow. We need at least a few days over this weekend to make sure that the white count is really trending down. DICTATING PHYSICIAN: JOCELYN MIRANDA MD,PURNIMA,MPH [id number] [id number] PHY#: [id number] 1999 ID: [id number] JOB#: [id number] ACCT: [id number] cc: > MTDD
[2018-06-03] MEDS: BUDESONIDE NEB 0.5 MG/2 ML AMPUL NEB SCH ×2 (08:16→20:07)
[2018-06-03] MEDS: LISINOPRIL 10 MG TABLET PEG SCH (10:59)
[2018-06-03] MEDS: AMLODIPINE BESYLATE 10 MG TABLET PEG SCH (10:59)
[2018-06-03] MEDS: ENOXAPARIN SODIUM INJ 30 MG/0.3 ML DISP.SYRIN SUBCUT SCH (11:00)
[2018-06-03] MEDS: FUROSEMIDE 40 MG TABLET PO SCH ×2 (11:00→18:51)
[2018-06-03] MEDS: MULTIVITAMIN ORAL LIQUID 60 ML PO SCH (11:01)
[2018-06-03] MEDS: INSULIN DETEMIR 100 UNIT/ML 3 ML PEN SUBCUT SCH (11:01)
[2018-06-03] MEDS: MOXIFLOXACIN HCL 0.5% OPH SOLN 3 ML OU SCH ×3 (11:02→18:51)
[2018-06-03] MEDS: ASCORBIC ACID 500 MG TABLET PEG SCH (11:02)
[2018-06-03] MEDS: SENNOSIDES/DOCUSATE 8.6-50 MG 1 EACH TABLET PEG SCH (11:02)
[2018-06-03] MEDS: MEMANTINE HCL 10 MG TABLET PO SCH (11:08)
[2018-06-03] MEDS: ASPIRIN 81 MG TABLET, CHEWABLE PO SCH (11:08)
[2018-06-03] MEDS: PREDNISONE 1 MG TABLET PEG SCH (11:28)
[2018-06-03] MEDS: VANCOMYCIN HCL 1,000 MG in DEXTROSE 5%-WATER 250 ML IV SCH (22:05)
[2018-06-03 22:52] LABS: HEMATOCRIT 26.9 % (36.0-47.0); HEMOGLOBIN 8.7 g/dL (12.0-15.5); MEAN CORPUSCULAR HEMOGLOBIN 26.1 pg (27.0-33.4); MEAN CORPUSCULAR HGB CONC 32.5 g/dL (32.0-36.0); MEAN CORPUSCULAR VOLUME 80 fl (80-97); PLATELET COUNT 426 10^3/uL (150-450); RED BLOOD COUNT 3.35 10^6/uL (3.72-5.28); RED CELL DISTRIBUTION WIDTH 20.5 % (11.5-14.0); WHITE BLOOD COUNT 13.1 10^3/uL (4.0-10.5)
[2018-06-03 23:53] LABS: ABSOLUTE LYMPHOCYTES# (MANUAL) 2.9 10^3/uL (0.5-4.7); ABSOLUTE MONOCYTES # (MANUAL) 1.2 10^3/uL (0.1-1.4); ABSOLUTE NEUTROPHILS# (MANUAL) 8.5 10^3/uL (1.7-8.2); BASOPHILS % (MANUAL) 0 % (0-2); EOSINOPHILS % (MANUAL) 4 % (0-6); LYMPHOCYTES % (MANUAL) 22 % (13-45); MONOCYTES % (MANUAL) 9 % (3-13); SEGMENTED NEUTROPHILS % (MAN) 65 % (42-78); TOTAL CELLS COUNTED 100
--- NOTE | 2018-06-03 23:55 | PROGRESS NOTE E ---
Progress Note NAME: BRIANA BRADY : 1935 AGE: 82Y DATE: 06/03/2018 ROOM: 334 SUBJECTIVE: The patient is an 82-year-old female who came with acute on chronic respiratory failure requiring invasive mechanical ventilation via tracheostomy tube. There has been no fever over the last 24 hours and decreased tracheal tube secretions, but apparently seems to have increasing infiltrates right lung base and increasing leukocytosis. The patient had a CBC done yesterday. OBJECTIVE: GENERAL: The patient appeared to be more awake, afebrile, and calm not in apparent respiratory distress. VITAL SIGNS: Temperature of 98.6 with a T-max of 98.9, blood pressure 165/99, heart rate of 108, respirations 23, saturation 100% on 40% FiO2. EYES: No jaundice or pallor. EARS, NOSE, AND THROAT: No ear drainage noted. No nasal discharge. LUNGS: No wheezing, no rhonchi, no coarse crackles. CARDIOVASCULAR: S1, S2 distinct. Normal rate and regular rhythm. ABDOMEN: Flabby, positive bowel sounds, soft, nondistended, nontender. EXTREMITIES: No joint swelling, no cellulitis. LABORATORY DATA: Laboratory done yesterday at 4 p.m. showed white count of 18.9 from 16.7 four days ago, hemoglobin is 10, hematocrit is 31.8, the platelet count is 433. Chemistry; nothing done today. IMAGING STUDIES: Chest x-ray; none done as of today. ASSESSMENT: 1. ACUTE ON CHRONIC RESPIRATORY FAILURE REQUIRING INVASIVE MECHANICAL VENTILATION. Appeared to be improving, however, leukocytosis seems to be worsening based on the CBC done yesterday. Does have some endotracheal tube secretions and afebrile. 2. COPD. 3. PNEUMONIA BILATERAL, RIGHT MORE THAN LEFT. 4. PLEURAL EFFUSION RIGHT SIDE, POSSIBLY STABLE/MOST LIKELY STABLE. PLAN/RECOMMENDATION: 1. We will do a CBC with differential tonight. 2. We will repeat the chest x-ray again tomorrow to evaluate pleural effusion and pulmonary infiltrates right lung. 3. Continue IV vancomycin for now. 4. We will continue watch, continue nebulizer treatments, and the same ventilatory support. DICTATING PHYSICIAN: JOCELYN MIRANDA MD,PURNIMA,MPH [id number] PHY#: [id number] ID: [id number] JOB#: [id number] ACCT: [id number] cc: > ILDA
[2018-06-03 23:57] LABS: ANISOCYTOSIS 2+; HELMET CELLS SLIGHT; POIKILOCYTOSIS 1+; TOXIC GRANULATION SLIGHT; TOXIC VACUOLATION PRESENT
[2018-06-03 23:58] LABS: OVALOCYTES SLIGHT; PLATELET COMMENT ADEQUATE; TEAR DROP CELLS SLIGHT
[2018-06-04] MEDS: IPRATROPIUM/ALBUTEROL 0.5-2.5 MG/3 ML AMPUL NEB SCH ×6 (00:24→20:03)
[2018-06-04] MEDS: INSULIN LISPRO 100 UNIT/ML 3 ML VIAL SUBCUT PRN ×3 (01:28→18:12)
[2018-06-04] MEDS: LANSOPRAZOLE 30 MG TAB.RAP.DR PO SCH (06:12)
[2018-06-04] MEDS: BUDESONIDE NEB 0.5 MG/2 ML AMPUL NEB SCH ×2 (08:11→20:03)
--- NOTE | 2018-06-04 08:32 | RADIOLOGY REPORT (SQ) ---
EXAM DESCRIPTION: CHEST SINGLE VIEW COMPLETED DATE/TIME: 06/04/2018 8:07 am REASON FOR STUDY: on ventilator COMPARISON: None. EXAM PARAMETERS: NUMBER OF VIEWS: One view. TECHNIQUE: Single frontal radiographic view of the chest acquired. RADIATION DOSE: NA LIMITATIONS: None. FINDINGS: LUNGS AND PLEURA: Persistent airspace type infiltrates noted at the right lung base with r ight pleural effusion demonstrating no significant improvement. There is airspace type infiltrate at left lung base obscuring lateral left hemidiaphragm with left pleural thickening or effusion. MEDIASTINUM AND HILAR STRUCTURES: No masses. Contour normal. HEART AND VASCULAR STRUCTURES: The heart remains unchanged with uncoiling of the thoracic aorta. The pulmonary vasculature is unchanged. BONES: No acute findings. HARDWARE: Tracheostomy tube in place. OTHER: Chest leads are noted. IMPRESSION: Borderline cardiomegaly. No significant change in right basilar pneumonia and effusion. Left basilar infiltrate and effusion. TECHNICAL DOCUMENTATION: JOB ID: [id number] [id number] 2010 [employer]- All Rights Reserved Reading location - IP/workstation name: [email or web address]
[2018-06-04] MEDS: ASCORBIC ACID 500 MG TABLET PEG SCH (10:45)
[2018-06-04] MEDS: MEMANTINE HCL 10 MG TABLET PO SCH (10:45)
[2018-06-04] MEDS: LISINOPRIL 10 MG TABLET PEG SCH (10:45)
[2018-06-04] MEDS: ENOXAPARIN SODIUM INJ 30 MG/0.3 ML DISP.SYRIN SUBCUT SCH (10:45)
[2018-06-04] MEDS: AMLODIPINE BESYLATE 10 MG TABLET PEG SCH (10:45)
[2018-06-04] MEDS: PREDNISONE 1 MG TABLET PEG SCH (10:46)
[2018-06-04] MEDS: INSULIN DETEMIR 100 UNIT/ML 3 ML PEN SUBCUT SCH (10:46)
[2018-06-04] MEDS: MULTIVITAMIN ORAL LIQUID 60 ML PO SCH (10:46)
[2018-06-04] MEDS: FUROSEMIDE 40 MG TABLET PO SCH ×2 (10:46→18:12)
[2018-06-04] MEDS: ASPIRIN 81 MG TABLET, CHEWABLE PO SCH (10:49)
[2018-06-04] MEDS: MOXIFLOXACIN HCL 0.5% OPH SOLN 3 ML OU SCH ×3 (10:49→18:13)
[2018-06-04] MEDS: SENNOSIDES/DOCUSATE 8.6-50 MG 1 EACH TABLET PEG SCH (10:50)
--- NOTE | 2018-06-04 14:20 | PDOC PROGRESS REPORT ---
Subjective Progress Note for:: 06/04/18 Subjective:: Patient has been on IV antibiotic continuously for the last 6 months, she has recurrent MRSA pneumonia, gram-negative pneumonia, she has chronic colonization with MRSA, she was at one point during catheterization, MRSA was culture from every secretion in the body, including, tears, sputum, urine, skin, I am not sure it is medically possible to eradicate all this resistant strain that this lady harbours. She has VRE, MRSA, ESBL E. coli because of multiple antibiotic usage she also had C. difficile infection at one point . I believe his end-of- life situation, she will continue to be readmitted, I am sure she will be back again after this discharge Reason For Visit: CHRNIC RESPIRATORY FAILURE S/P TRACHEOSTOMY ON Physical Exam Vital Signs: Temp Pulse Resp BP Pulse Ox 98.6 F 79 18 125/66 100 06/04/18 07:40 06/04/18 11:54 06/04/18 11:54 06/04/18 07:40 06/04/18 11:54 Pulse Oximeter Continuous Start: 05/18/18 08: 48 Freq: RTQ4 Status: Active Document 06/04/18 11:54 LDA (Rec: 06/04/18 11:56 LDA [email or web address]) Pulse Oximetry Assessment Oxygen Saturation (92-100) 100 Oxygen Delivery Method Mechanical Ventilator Fraction of Inspired Oxygen (FIO2) 30 Equipment Usage Equipment in Use Continuous SpO2 Machine # 9 Intake & Output 06/03/18 06/04/18 06/05/18 06:59 06:59 06:59 Intake Total 1017 1967 600 Output Total 825 700 400 Balance 192 1267 200 Weight 71.4 kg 71.1 kg Results Laboratory Results: 06/03/18 22:00 06/02/18 04:03 06/03/18 22:00 WBC 13.1 H RBC 3.35 L Hgb 8.7 L Hct 26.9 L MCV 80 MCH 26.1 L MCHC 32.5 RDW 20.5 H Plt Count 426 Seg Neutrophils % Not Reportable Lymphocytes % Not Reportable Monocytes % Not Reportable Eosinophils % Not Reportable Basophils % Not Reportable Absolute Neutrophils Not Reportable Absolute Lymphocytes Not Reportable Absolute Monocytes Not Reportable Absolute Eosinophils Not Reportable Absolute Basophils Not Reportable 06/02/18 09:22 Catheterized Urine Urine Culture - Final Pseudomonas Aeruginosa C.albicans/C.dubliniensis Impressions: Chest X-Ray 06/04/18 05:00 IMPRESSION: Borderline cardiomegaly. No significant change in right basilar pneumonia and effusion. Left basilar infiltrate and effusion. Assessment & Plan - Diagnosis (1) Acute respiratory failure Qualifiers: Respiratory failure complication: hypoxia and hypercapnia Qualified Code(s) : J96.01 - Acute respiratory failure with hypoxia; J96.02 - Acute respiratory failure with hypercapnia; J96.02 - Acute respiratory failure with hypercapnia; J96.02 - Acute respiratory failure with hypercapnia Is this a current diagnosis for this admission?: Yes (2) MRSA pneumonia Qualifiers: Laterality: unspecified laterality Lung location: unspecified part of lung Qualified Code(s): J15.212 - Pneumonia due to Methicillin resistant Staphylococcus aureus Is this a current diagnosis for this admission?: Yes (3) COPD (chronic obstructive pulmonary disease) Qualifiers: COPD type: unspecified COPD Qualified Code(s): J44.9 - Chronic obstructive pulmonary disease, unspecified Is this a current diagnosis for this admission?: Yes (4) COPD (chronic obstructive pulmonary disease) Qualifiers: COPD type: unspecified COPD Qualified Code(s): J44.9 - Chronic obstructive pulmonary disease, unspecified Is this a current diagnosis for this admission?: Yes (5) Pseudomonal pneumonia Is this a current diagnosis for this admission?: Yes (6) Urinary tract infection Is this a current diagnosis for this admission?: Yes (7) 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
[2018-06-04] MEDS: VANCOMYCIN HCL 1,000 MG in DEXTROSE 5%-WATER 250 ML IV SCH (22:50)
[2018-06-05] MEDS: IPRATROPIUM/ALBUTEROL 0.5-2.5 MG/3 ML AMPUL NEB SCH ×6 (00:56→20:25)
[2018-06-05 05:41] LABS: ABSOLUTE BASOPHILS # (AUTO) 0.1 10^3/uL (0.0-0.2); ABSOLUTE LYMPHOCYTES (AUTO) 6.1 10^3/uL (0.5-4.7); ABSOLUTE MONOCYTES (AUTO) 1.2 10^3/uL (0.1-1.4); ABSOLUTE NEUT (AUTO) 7.2 10^3/uL (1.7-8.2); BASOPHILS % (AUTO) 0.7 % (0-2); EOSINOPHILS % (AUTO) 6.4 % (0-6); HEMOGLOBIN 8.8 g/dL (12.0-15.5); LYMPHOCYTES % (AUTO) 38.9 % (13-45); MEAN CORPUSCULAR HEMOGLOBIN 26.1 pg (27.0-33.4); MEAN CORPUSCULAR HGB CONC 32.5 g/dL (32.0-36.0); MEAN CORPUSCULAR VOLUME 80 fl (80-97); MONOCYTES % (AUTO) 7.9 % (3-13); PLATELET COUNT 400 10^3/uL (150-450); RED BLOOD COUNT 3.36 10^6/uL (3.72-5.28); RED CELL DISTRIBUTION WIDTH 20.2 % (11.5-14.0); SEGMENTED NEUTROPHILS % (AUTO) 46.1 % (42-78); TOTAL CELLS COUNTED % (AUTO) 100 %; WHITE BLOOD COUNT 15.7 10^3/uL (4.0-10.5)
[2018-06-05] MEDS: LANSOPRAZOLE 30 MG TAB.RAP.DR PO SCH (05:47)
[2018-06-05 06:05] LABS: ANION GAP 13 (5-19); BLOOD UREA NITROGEN 59 mg/dL (7-20); CALCIUM 10.8 mg/dL (8.4-10.2); CARBON DIOXIDE 18 mmol/L (22-30); CHLORIDE 109 mmol/L (98-107); GLUCOSE 147 mg/dL (75-110); POTASSIUM 4.2 mmol/L (3.6-5.0); SODIUM 139.5 mmol/L (137-145)
[2018-06-05] MEDS: INSULIN LISPRO 100 UNIT/ML 3 ML VIAL SUBCUT PRN ×2 (06:12→13:01)
[2018-06-05] MEDS: BUDESONIDE NEB 0.5 MG/2 ML AMPUL NEB SCH ×2 (08:26→20:25)
[2018-06-05] MEDS: AMLODIPINE BESYLATE 10 MG TABLET PEG SCH (09:11)
[2018-06-05] MEDS: LISINOPRIL 10 MG TABLET PEG SCH (09:11)
[2018-06-05] MEDS: ASPIRIN 81 MG TABLET, CHEWABLE PO SCH (09:11)
[2018-06-05] MEDS: MULTIVITAMIN ORAL LIQUID 60 ML PO SCH (09:11)
[2018-06-05] MEDS: MOXIFLOXACIN HCL 0.5% OPH SOLN 3 ML OU SCH ×3 (09:11→18:35)
[2018-06-05] MEDS: MEMANTINE HCL 10 MG TABLET PO SCH (09:11)
[2018-06-05] MEDS: FUROSEMIDE 40 MG TABLET PO SCH ×2 (09:11→18:35)
[2018-06-05] MEDS: INSULIN DETEMIR 100 UNIT/ML 3 ML PEN SUBCUT SCH (09:12)
[2018-06-05] MEDS: SENNOSIDES/DOCUSATE 8.6-50 MG 1 EACH TABLET PEG SCH (09:12)
[2018-06-05] MEDS: ENOXAPARIN SODIUM INJ 30 MG/0.3 ML DISP.SYRIN SUBCUT SCH (09:12)
[2018-06-05] MEDS: ASCORBIC ACID 500 MG TABLET PEG SCH (09:13)
--- NOTE | 2018-06-05 21:06 | PROGRESS NOTE E ---
Progress Note NAME: BRIANA BRADY : 1935 AGE: 82Y DATE: 06/05/2018 ROOM: 334 SUBJECTIVE: The patient is an 82-year-old female with acute on chronic respiratory failure requiring recent invasive mechanical ventilation via tracheostomy tube. The patient has been afebrile, more awake, not agitated, breathing comfortably, saturation of about 90% on 50% FIO2. The patient's FIO2 requirements go up and down. She has continued tracheostomy secretions. She had increased gastric residual earlier today after a G-tube feeding of 40 mL per hour with a gastric residual of around 200 mL. No vomiting. No diarrhea. The patient's recent sputum culture 06/03/2018 showed Pseudomonas aeruginosa and gram-negative rods which were significant at 85. There is no MRSA noted. The Pseudomonas noted in the recent sputum culture may be a colonizer, and specifically may be a colonizer because the patient has had recurrent Pseudomonas pneumonia. The patient also has Pseudomonas in the catheterized urine. The sputum culture done on 05/23/2018 showed Pseudomonas aeruginosa, as well as Stenotrophomonas maltophilia on top of that. OBJECTIVE: GENERAL: The patient awake, alert and afebrile, not in apparent respiratory distress. VITAL SIGNS: With a blood pressure of 146/76. Temperature is 98.2. Pulse rate is 85. Respiratory rate is 18. Saturation is 93% on 30% FIO2. EYES: No jaundice or pallor. EARS, NOSE, AND THROAT: No ear drainage. No nasal discharge. HEAD AND NECK: No scalp swelling. No neck tenderness. CHEST AND LUNGS: No wheezing. No rhonchi. No coarse crackles. CARDIOVASCULAR: S1, S2 are distinct. Normal rate. Regular rhythm. ABDOMEN: Flabby, positive bowel sounds, soft, nondistended, nontender. EXTREMITIES: No joint swelling or cellulitis. LABORATORY DATA: CBC done today showed white count of 15.7 from 15.1 two days ago, hemoglobin is 8.8, hematocrit is 27, platelet count is 400,000. No bandemia noted. Chemistry done today showed sodium is 139, potassium 4.2, chloride 109, CO2 is 18, BUN is 59, creatinine is 1.01, and glucose 147. Calcium is 10.8. Chest x-ray done on 06/04/2018 showed a stable infiltrate right lower lobe and pleural effusion right lung which seemed to be stable. ASSESSMENT: 1. ACUTE ON CHRONIC RESPIRATORY FAILURE REQUIRING INVASIVE MECHANICAL VENTILATION, CURRENTLY VIA TRACHEOSTOMY TUBE. The patient still requires chronic ventilatory therapy. 2. PSEUDOMONAS IN THE SPUTUM, GRAM-NEGATIVE RODS, MAY BE COLONIZERS. She has been on Zosyn IV for about 2 to 3 weeks. Currently not symptomatic, and the tracheal secretions are scanty, and I do not think the patient has a Pseudomonas aeruginosa pneumonia right now. 3. PLEURAL EFFUSION, RIGHT SIDE. It currently appears stable. PLAN AND RECOMMENDATION: We will repeat the CBC again tomorrow. If the leukocytosis appears to increase, we might consider resuming IV antibiotics again. Otherwise, at this time the patient does not need any IV antibiotic. We will discontinue the vancomycin because the sputum cultures were all negative for MRSA. Still recommend patient may be able to go home with a home health nurse. If the patient started having a lot more tracheal secretions, the patient may be considered for antibiotic therapy again. DICTATING PHYSICIAN: JOCELYN MIRANDA MD,PURNIMA,MPH [id number] PHY#: [id number] ID: [id number] JOB#: [id number] ACCT: [id number] cc: > MAXD
[2018-06-06] MEDS: INSULIN LISPRO 100 UNIT/ML 3 ML VIAL SUBCUT PRN ×2 (00:30→17:12)
[2018-06-06] MEDS: IPRATROPIUM/ALBUTEROL 0.5-2.5 MG/3 ML AMPUL NEB SCH ×6 (02:35→19:47)
[2018-06-06 06:16] LABS: ABSOLUTE BASOPHILS # (AUTO) 0.1 10^3/uL (0.0-0.2); ABSOLUTE EOSINOPHILS # (AUTO) 1.2 10^3/uL (0.0-0.6); ABSOLUTE LYMPHOCYTES (AUTO) 6.8 10^3/uL (0.5-4.7); ABSOLUTE MONOCYTES (AUTO) 1.2 10^3/uL (0.1-1.4); ABSOLUTE NEUT (AUTO) 5.6 10^3/uL (1.7-8.2); BASOPHILS % (AUTO) 0.9 % (0-2); EOSINOPHILS % (AUTO) 7.9 % (0-6); HEMOGLOBIN 8.8 g/dL (12.0-15.5); LYMPHOCYTES % (AUTO) 45.5 % (13-45); MEAN CORPUSCULAR HEMOGLOBIN 26.2 pg (27.0-33.4); MEAN CORPUSCULAR HGB CONC 32.5 g/dL (32.0-36.0); MEAN CORPUSCULAR VOLUME 81 fl (80-97); MONOCYTES % (AUTO) 8.2 % (3-13); PLATELET COUNT 435 10^3/uL (150-450); RED BLOOD COUNT 3.35 10^6/uL (3.72-5.28); RED CELL DISTRIBUTION WIDTH 20.2 % (11.5-14.0); SEGMENTED NEUTROPHILS % (AUTO) 37.5 % (42-78); TOTAL CELLS COUNTED % (AUTO) 100 %
[2018-06-06] MEDS: LANSOPRAZOLE 30 MG TAB.RAP.DR PO SCH (06:51)
[2018-06-06] MEDS: BUDESONIDE NEB 0.5 MG/2 ML AMPUL NEB SCH ×2 (08:07→19:47)
[2018-06-06] MEDS: INSULIN DETEMIR 100 UNIT/ML 3 ML PEN SUBCUT SCH (10:22)
[2018-06-06] MEDS: MULTIVITAMIN ORAL LIQUID 60 ML PO SCH (10:22)
[2018-06-06] MEDS: ENOXAPARIN SODIUM INJ 30 MG/0.3 ML DISP.SYRIN SUBCUT SCH (10:22)
[2018-06-06] MEDS: ASCORBIC ACID 500 MG TABLET PEG SCH (10:24)
[2018-06-06] MEDS: LISINOPRIL 10 MG TABLET PEG SCH (10:24)
[2018-06-06] MEDS: MOXIFLOXACIN HCL 0.5% OPH SOLN 3 ML OU SCH ×3 (10:24→17:24)
[2018-06-06] MEDS: MEMANTINE HCL 10 MG TABLET PO SCH (10:25)
[2018-06-06] MEDS: AMLODIPINE BESYLATE 10 MG TABLET PEG SCH (10:25)
[2018-06-06] MEDS: FUROSEMIDE 40 MG TABLET PO SCH ×2 (10:25→17:12)
[2018-06-06] MEDS: ASPIRIN 81 MG TABLET, CHEWABLE PO SCH (10:25)
[2018-06-06] MEDS: SENNOSIDES/DOCUSATE 8.6-50 MG 1 EACH TABLET PEG SCH (10:25)
--- NOTE | 2018-06-06 21:01 | PROGRESS NOTE E ---
Progress Note NAME: BRIANA BRADY : 1935 AGE: 82Y DATE: 06/06/2018 ROOM: 334 SUBJECTIVE: The patient is an 82-year-old female who came in with acute on chronic respiratory failure requiring invasive mechanical ventilation on chronic ventilator therapy via tracheostomy tube. The patient has been stable for the last 24-48 hours, no fever spikes. No increase in endotracheal tube secretion. Endotracheal tube secretions remain scanty. No vomiting. No diarrhea. Tolerating G-tube feedings. Sputum culture done June 03, 2018 showed Pseudomonas aeruginosa, Enterobacter cloacae which may be airway colonizers. OBJECTIVE: GENERAL: The patient is awake, appeared to be oriented, afebrile, nonverbal, not in apparent respiratory distress. VITAL SIGNS: Temperature of 97.8 with a T-max of 98.9, blood pressure is 143/64, heart rate is 81 beats per minute, respirations is 20, saturation is 100% on 35% FiO2, SIMV rate of 18, tidal volume 450, pressure support of 10, PEEP of 5, minute ventilation is 8.1, peak airway pressure is 34, excess tidal volume is 472. EYES: No jaundice or pallor. EARS, NOSE, AND THROAT: No ear drainage noted. No nasal discharge. HEAD AND NECK: No scalp swelling, tenderness. CHEST AND LUNGS: No wheezing, no rhonchi, no coarse crackles. CARDIOVASCULAR: S1, S2 distinct. Normal rate and regular rhythm. ABDOMEN: Flabby, positive bowel sounds, soft, nondistended, nontender. EXTREMITIES: No joint swelling, no cellulitis. LABORATORY DATA: CBC done today shows a white count of 15 from 15,700 yesterday, hemoglobin is 8.8, hematocrit is 27, platelet count is 434. Chemistry; no chemistry. ASSESSMENT: 1. CHRONIC RESPIRATORY FAILURE REQUIRING INVASIVE MECHANICAL VENTILATION VIA TRACHEOSTOMY TUBE. Appeared to be stable and improving. 2. PNEUMONIA, MRSA AND PSEUDOMONAS. Appeared to be stable and improving. Recent sputum culture still positive for Pseudomonas aeruginosa and Enterobacter cloacae. 3. PLEURAL EFFUSION, RIGHT SIDE. Remains to be stable. PLAN AND RECOMMENDATION: Continue chronic ventilator settings. Patient may require long-term care facility admission eventually for chronic ventilator therapy. Patient was declined for long-term care facility placement. The patient is currently being transferred to [facility]. DICTATING PHYSICIAN: JOCELYN MIRANDA MD PURNIMA [facility] [id number] PHY#: [id number] ID: [id number] JOB#: [id number] ACCT: [id number] cc: > MTDD
[2018-06-07] MEDS: IPRATROPIUM/ALBUTEROL 0.5-2.5 MG/3 ML AMPUL NEB SCH ×4 (00:02→12:31)
[2018-06-07] MEDS: LANSOPRAZOLE 30 MG TAB.RAP.DR PO SCH (06:22)
[2018-06-07] MEDS: INSULIN LISPRO 100 UNIT/ML 3 ML VIAL SUBCUT PRN (06:22)
[2018-06-07] MEDS: BUDESONIDE NEB 0.5 MG/2 ML AMPUL NEB SCH (08:14)
[2018-06-07] MEDS: AMLODIPINE BESYLATE 10 MG TABLET PEG SCH (10:01)
[2018-06-07] MEDS: SENNOSIDES/DOCUSATE 8.6-50 MG 1 EACH TABLET PEG SCH (10:01)
[2018-06-07] MEDS: MEMANTINE HCL 10 MG TABLET PO SCH (10:01)
[2018-06-07] MEDS: MULTIVITAMIN ORAL LIQUID 60 ML PO SCH (10:01)
[2018-06-07] MEDS: LISINOPRIL 10 MG TABLET PEG SCH (10:01)
[2018-06-07] MEDS: INSULIN DETEMIR 100 UNIT/ML 3 ML PEN SUBCUT SCH (10:02)
[2018-06-07] MEDS: ENOXAPARIN SODIUM INJ 30 MG/0.3 ML DISP.SYRIN SUBCUT SCH (10:02)
[2018-06-07] MEDS: MOXIFLOXACIN HCL 0.5% OPH SOLN 3 ML OU SCH (10:03)
[2018-06-07] MEDS: ASCORBIC ACID 500 MG TABLET PEG SCH (10:03)
[2018-06-07] MEDS: FUROSEMIDE 40 MG TABLET PO SCH (10:03)
[2018-06-07] MEDS: ASPIRIN 81 MG TABLET, CHEWABLE PO SCH (10:06)
[2018-06-07 11:39] VITALS: BP 144/89
[2018-06-08] MEDS ORDERED: MULTIVITAMIN ORAL LIQUID 60 ML PO SCH (10:00)
== END 2018-06-07 14:04 | disposition short-term general hospital (02) | DRG 207 ==
LOC: 3N 20:32 → 3S 05-28 17:39
PROVIDERS: ADMIT Internal Medicine; ATTEND Internal Medicine
PROC: 5A1955Z Respiratory Ventilation, Greater than 96 Consecutive Hours (ICD-10-PCS; principal; 2018-05-17)
DX: J96.21 Acute and chronic respiratory failure with hypoxia (principal); J15.212 Pneumonia due to Methicillin resistant Staphylococcus aureus; J15.1 Pneumonia due to Pseudomonas; N39.0 Urinary tract infection, site not specified; Z99.11 Dependence on respirator [ventilator] status; J98.11 Atelectasis; I50.32 Chronic diastolic (congestive) heart failure; J96.22 Acute and chronic respiratory failure with hypercapnia; I11.0 Hypertensive heart disease with heart failure; J44.9 Chronic obstructive pulmonary disease, unspecified; Z74.01 Bed confinement status; L89.622 Pressure ulcer of left heel, stage 2; C44.310 Basal cell carcinoma of skin of unspecified parts of face; E11.42 Type 2 diabetes mellitus with diabetic polyneuropathy; G30.1 Alzheimer's disease with late onset; F02.80 Dementia in other diseases classified elsewhere, unspecified severity, without behavioral disturbance, psychotic disturbance, mood disturbance, and anxiety; E78.5 Hyperlipidemia, unspecified; I73.9 Peripheral vascular disease, unspecified; Z86.711 Personal history of pulmonary embolism; Z89.511 Acquired absence of right leg below knee; Z88.8 Allergy status to other drugs, medicaments and biological substances; Z96.641 Presence of right artificial hip joint; Z96.651 Presence of right artificial knee joint; Z93.0 Tracheostomy status; Z87.891 Personal history of nicotine dependence
CPT/HCPCS: 36415; 71045; 80048; 80053; 80202; 81001; 82565; 82803; 82962; 83036; 83735; 84100; 85025; 87040; 87070; 87077; 87086; 87088; 87186; 87205; 87493; 94002; 94003; 94762; J1650; J1815; J2543; J3370; J3490; J7060; J7512; J7614; J7620; S0028; S0119

== ENCOUNTER 2018-06-22 18:05 | Inpatient (IN) | payer MEDICARE, MEDICAID ==
[2018-06-22] MEDS ORDERED: ACETAMINOPHEN 325 MG TABLET PEG PRN (23:19)
[2018-06-22] MEDS ORDERED: ACIDOPHILUS PEG PRN (23:19)
[2018-06-22] MEDS ORDERED: BULGARICUS PEG PRN (23:19)
[2018-06-22] MEDS ORDERED: DEXTROSE 50%-WATER SYRINGE 25 GM/50 ML DOSE IV PRN (23:33)
[2018-06-22] MEDS ORDERED: DEXTROSE 40% GEL 15 GM TUBE X 2 PO PRN (23:33)
[2018-06-22] MEDS ORDERED: DEXTROSE 50%-WATER SYRINGE 12.5 GM/25 ML DOSE IV PRN (23:33)
[2018-06-22] MEDS ORDERED: DEXTROSE 40% GEL 15 GM TUBE PO PRN (23:33)
[2018-06-22] MEDS ORDERED: INSULIN LISPRO 100 UNIT/ML 3 ML VIAL SUBCUT PRN (23:33)
[2018-06-22] MEDS ORDERED: GLUCAGON,HUMAN RECOMB 1 MG INJ IM PRN (23:33)
[2018-06-22] MEDS ORDERED: ONDANSETRON ODT 4 MG TAB (6 TAB/ER DISP) PEG PRN (23:45)
[2018-06-23] MEDS: INSULIN LISPRO 100 UNIT/ML 3 ML VIAL SUBCUT PRN ×2 (00:32→13:46)
[2018-06-23] MEDS ORDERED: ONDANSETRON 4 MG TAB.RAPDIS PEG PRN (07:05)
[2018-06-23] MEDS: BUDESONIDE NEB 0.5 MG/2 ML AMPUL NEB SCH ×2 (08:14→19:29)
[2018-06-23] MEDS: ALBUTEROL SULFATE 0.083% NEB 2.5 MG/3 ML AMPUL NEB PRN ×2 (08:14→19:29)
[2018-06-23] MEDS: ASCORBIC ACID 500 MG TABLET PEG SCH (10:45)
[2018-06-23] MEDS: ASPIRIN 81 MG TABLET, ENT COATED PO SCH (10:45)
[2018-06-23] MEDS: FUROSEMIDE 40 MG TABLET PEG SCH ×2 (10:45→18:25)
[2018-06-23] MEDS: SENNOSIDES/DOCUSATE 8.6-50 MG 1 EACH TABLET PEG SCH (10:45)
[2018-06-23] MEDS: MULTIVITAMIN TABLET PO SCH (10:45)
[2018-06-23] MEDS: INSULIN DETEMIR 100 UNIT/ML 3 ML PEN SUBCUT SCH (10:46)
[2018-06-23] MEDS: LISINOPRIL 10 MG TABLET PEG SCH (10:46)
[2018-06-23] MEDS: AMLODIPINE BESYLATE 10 MG TABLET PEG SCH (10:46)
[2018-06-23] MEDS: MEMANTINE HCL 10 MG TABLET PO SCH (18:25)
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
[2018-06-24] MEDS: INSULIN LISPRO 100 UNIT/ML 3 ML VIAL SUBCUT PRN ×3 (06:09→18:27)
[2018-06-24] MEDS: ALBUTEROL SULFATE 0.083% NEB 2.5 MG/3 ML AMPUL NEB PRN ×2 (07:43→20:08)
[2018-06-24] MEDS: BUDESONIDE NEB 0.5 MG/2 ML AMPUL NEB SCH ×2 (07:43→20:08)
[2018-06-24] MEDS: ASCORBIC ACID 500 MG TABLET PEG SCH (09:41)
[2018-06-24] MEDS: ASPIRIN 81 MG TABLET, ENT COATED PO SCH (09:42)
[2018-06-24] MEDS: SENNOSIDES/DOCUSATE 8.6-50 MG 1 EACH TABLET PEG SCH (09:42)
[2018-06-24] MEDS: MULTIVITAMIN TABLET PO SCH (09:42)
[2018-06-24] MEDS: LISINOPRIL 10 MG TABLET PEG SCH (09:42)
[2018-06-24] MEDS: FUROSEMIDE 40 MG TABLET PEG SCH ×2 (09:42→17:40)
[2018-06-24] MEDS: AMLODIPINE BESYLATE 10 MG TABLET PEG SCH (09:43)
[2018-06-24] MEDS: INSULIN DETEMIR 100 UNIT/ML 3 ML PEN SUBCUT SCH (09:48)
--- NOTE | 2018-06-24 16:59 | PDOC PROGRESS REPORT ---
Subjective Progress Note for:: 06/24/18 Subjective:: She remain on vent support via tracheostomy. Appropriate in simple responses. Tolerating enteral tube feeding. No reported fever. Reason For Visit: WEAKNESS Physical Exam Vital Signs: Temp Pulse Resp BP Pulse Ox 98.5 F 60 14 149/53 H 97 06/24/18 07:25 06/24/18 14:00 06/24/18 07:44 06/24/18 07:25 06/24/18 16:05 Intake & Output 06/23/18 06/24/18 06/25/18 06:59 06:59 06:59 Intake Total 440 1086 0 Output Total 800 1425 20 Balance -360 -339 -20 Weight 66 kg 65.9 kg Physical Exam: vent supported via tracheostomy. General appearance: PRESENT: no acute distress Head exam: PRESENT: atraumatic, normocephalic Eye exam: PRESENT: conjunctiva pink. ABSENT: scleral icterus Ear exam: PRESENT: normal external ear exam Mouth exam: PRESENT: moist Neck exam: PRESENT: tracheostomy Respiratory exam: PRESENT: clear to auscultation monica, decreased breath sounds - at lung bvases Cardiovascular exam: PRESENT: RRR. ABSENT: diastolic murmur, rubs, systolic murmur GI/Abdominal exam: PRESENT: normal bowel sounds, soft, other - PEG site is okay.. ABSENT: distended, guarding, mass, organolmegaly, rebound, tenderness Extremities exam: PRESENT: left AKA, pedal edema Neurological exam: PRESENT: alert - and appropriate in gesture, awake Psychiatric exam: PRESENT: appropriate affect, normal mood. ABSENT: homicidal ideation, suicidal ideation Skin exam: PRESENT: dry, warm, other - left nasal lesion Assessment & Plan - Diagnosis (1) Chronic respiratory failure with hypoxia and hypercapnia Is this a current diagnosis for this admission?: Yes Plan: Continue current medication management. (2) COPD (chronic obstructive pulmonary disease) Qualifiers: COPD type: unspecified COPD Qualified Code(s): J44.9 - Chronic obstructive pulmonary disease, unspecified Is this a current diagnosis for this admission?: Yes Plan: Continue current medication management. (3) 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 Is this a current diagnosis for this admission?: Yes Plan: Continue current medication management. (4) Type 2 diabetes mellitus Qualifiers: Diabetes mellitus long term care social worker insulin use: with mcfp use Diabetes mellitus complication status: with neurologic complications Diabetes mellitus complication detail: with polyneuropathy Qualified Code(s): E11.42 - Type 2 diabetes mellitus with diabetic polyneuropathy Is this a current diagnosis for this admission?: Yes Plan: Continue current medication management. (5) Debilitated patient Is this a current diagnosis for this admission?: Yes Plan: Continue current medication management. - Time Time Spent with patient: 25-34 minutes Medications reviewed and adjusted accordingly: Yes Anticipated discharge: Home with Homehealth Within: Other - Inpatient Certification Based on my medical assessment, after consideration of the patient's comorbidities, presenting symptoms, or acuity I expect that the services needed warrant INPATIENT care.: Yes I certify that my determination is in accordance with my understanding of Medicare's requirements for reasonable and necessary INPATIENT services [42 CFR 412.3e].: Yes Medical Necessity: Need Close Monitoring Due to Risk of Patient Decompensation, Need For IV Fluids, Need For Continuous Telemetry Monitoring, Need for Nebulizer Therapy and Monitoring of Response, Risk of Complication if Not Cared For in Hospital Post Hospital Care: D/C [facility] Specialist Documentation - Plan Summary Plan Summary: Continue current medication management.
[2018-06-24] MEDS: MEMANTINE HCL 10 MG TABLET PO SCH (17:40)
[2018-06-25] MEDS: INSULIN LISPRO 100 UNIT/ML 3 ML VIAL SUBCUT PRN ×2 (06:25→18:39)
[2018-06-25] MEDS: BUDESONIDE NEB 0.5 MG/2 ML AMPUL NEB SCH ×2 (07:54→20:14)
[2018-06-25] MEDS: ALBUTEROL SULFATE 0.083% NEB 2.5 MG/3 ML AMPUL NEB PRN ×2 (07:54→20:14)
[2018-06-25] MEDS: INSULIN DETEMIR 100 UNIT/ML 3 ML PEN SUBCUT SCH (09:36)
[2018-06-25] MEDS: AMLODIPINE BESYLATE 10 MG TABLET PEG SCH (09:37)
[2018-06-25] MEDS: ASCORBIC ACID 500 MG TABLET PEG SCH (09:37)
[2018-06-25] MEDS: ASPIRIN 81 MG TABLET, ENT COATED PO SCH (09:37)
[2018-06-25] MEDS: LISINOPRIL 10 MG TABLET PEG SCH (09:37)
[2018-06-25] MEDS: FUROSEMIDE 40 MG TABLET PEG SCH ×2 (09:38→17:10)
[2018-06-25] MEDS: SENNOSIDES/DOCUSATE 8.6-50 MG 1 EACH TABLET PEG SCH (09:38)
[2018-06-25] MEDS: MULTIVITAMIN TABLET PO SCH (09:38)
--- NOTE | 2018-06-25 13:01 | PDOC PROGRESS REPORT ---
Subjective Progress Note for:: 06/25/18 Subjective:: No reported fever. Tolerating enteral tube feeding. She remain on vent support via tracheostomy. Appropriate in simple responses. Reason For Visit: WEAKNESS Physical Exam Vital Signs: Temp Pulse Resp BP Pulse Ox 98.3 F 88 24 H 157/64 H 99 06/25/18 11:38 06/25/18 11:38 06/25/18 11:38 06/25/18 11:38 06/25/18 11:38 Intake & Output 06/24/18 06/25/18 06/26/18 06:59 06:59 06:59 Intake Total 1086 2144 467 Output Total 1425 1170 Balance -339 974 467 Weight 65.9 kg 66.7 kg Physical Exam: vent supported via tracheostomy. General appearance: PRESENT: no acute distress Head exam: PRESENT: atraumatic, normocephalic Eye exam: PRESENT: conjunctiva pink. ABSENT: scleral icterus Ear exam: PRESENT: normal external ear exam Mouth exam: PRESENT: moist Neck exam: PRESENT: tracheostomy Respiratory exam: PRESENT: clear to auscultation moncia, decreased breath sounds - at lung bvases Cardiovascular exam: PRESENT: RRR. ABSENT: diastolic murmur, rubs, systolic murmur GI/Abdominal exam: PRESENT: normal bowel sounds, soft, other - PEG site is okay.. ABSENT: distended, guarding, mass, organolmegaly, rebound, tenderness Extremities exam: PRESENT: left AKA, pedal edema Neurological exam: PRESENT: alert - and appropriate in gesture, awake Psychiatric exam: PRESENT: appropriate affect, normal mood. 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: with mcfp use Diabetes mellitus complication status: with neurologic complications Diabetes mellitus complication detail: with polyneuropathy Qualified Code(s): E11.42 - Type 2 diabetes mellitus with diabetic polyneuropathy Is this a current diagnosis for this admission?: Yes (5) Debilitated patient Is this a current diagnosis for this admission?: Yes - Time Time Spent with patient: 25-34 minutes Medications reviewed and adjusted accordingly: Yes Anticipated discharge: Home with Homehealth Within: Other - Inpatient Certification Based on my medical assessment, after consideration of the patient's comorbidities, presenting symptoms, or acuity I expect that the services needed warrant INPATIENT care.: Yes I certify that my determination is in accordance with my understanding of Medicare's requirements for reasonable and necessary INPATIENT services [42 CFR 412.3e].: Yes Medical Necessity: Need Close Monitoring Due to Risk of Patient Decompensation, Need For Continuous Telemetry Monitoring, Need for Nebulizer Therapy and Monitoring of Response, Risk of Complication if Not Cared For in Hospital Post 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 Patient is schedule for discharge home tomorrow if family are in agreement.
[2018-06-25] MEDS: MEMANTINE HCL 10 MG TABLET PO SCH (17:11)
[2018-06-26] MEDS: INSULIN LISPRO 100 UNIT/ML 3 ML VIAL SUBCUT PRN (07:05)
[2018-06-26] MEDS: ALBUTEROL SULFATE 0.083% NEB 2.5 MG/3 ML AMPUL NEB PRN ×2 (08:02→19:42)
[2018-06-26] MEDS: BUDESONIDE NEB 0.5 MG/2 ML AMPUL NEB SCH ×2 (08:02→19:42)
[2018-06-26] MEDS: SENNOSIDES/DOCUSATE 8.6-50 MG 1 EACH TABLET PEG SCH (09:32)
[2018-06-26] MEDS: LISINOPRIL 10 MG TABLET PEG SCH (09:32)
[2018-06-26] MEDS: FUROSEMIDE ORAL SOLN 40 MG/5 ML UDCUP PEG SCH ×2 (09:32→17:33)
[2018-06-26] MEDS: ASPIRIN 81 MG TABLET, CHEWABLE PEG SCH (09:33)
[2018-06-26] MEDS: ASCORBIC ACID 500 MG TABLET PEG SCH (09:33)
[2018-06-26] MEDS: INSULIN DETEMIR 100 UNIT/ML 3 ML PEN SUBCUT SCH (09:33)
[2018-06-26] MEDS: AMLODIPINE BESYLATE 10 MG TABLET PEG SCH (09:34)
[2018-06-26] MEDS: MULTIVITAMIN TABLET PO SCH (09:34)
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
[2018-06-26] MEDS: MEMANTINE HCL 10 MG TABLET PEG SCH (17:33)
[2018-06-27] MEDS: INSULIN LISPRO 100 UNIT/ML 3 ML VIAL SUBCUT PRN ×4 (01:15→19:24)
[2018-06-27] MEDS: ALBUTEROL SULFATE 0.083% NEB 2.5 MG/3 ML AMPUL NEB PRN ×2 (03:47→19:43)
[2018-06-27] MEDS: BUDESONIDE NEB 0.5 MG/2 ML AMPUL NEB SCH ×2 (07:40→19:43)
[2018-06-27] MEDS: SENNOSIDES/DOCUSATE 8.6-50 MG 1 EACH TABLET PEG SCH (10:02)
[2018-06-27] MEDS: LISINOPRIL 10 MG TABLET PEG SCH (10:02)
[2018-06-27] MEDS: MULTIVITAMIN TABLET PO SCH (10:02)
[2018-06-27] MEDS: INSULIN DETEMIR 100 UNIT/ML 3 ML PEN SUBCUT SCH (10:02)
[2018-06-27] MEDS: FUROSEMIDE ORAL SOLN 40 MG/5 ML UDCUP PEG SCH ×2 (10:02→17:50)
[2018-06-27] MEDS: AMLODIPINE BESYLATE 10 MG TABLET PEG SCH (10:02)
[2018-06-27] MEDS: ASCORBIC ACID 500 MG TABLET PEG SCH (10:02)
[2018-06-27] MEDS: ASPIRIN 81 MG TABLET, CHEWABLE PEG SCH (10:02)
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
[2018-06-27] MEDS: MEMANTINE HCL 10 MG TABLET PEG SCH (17:50)
[2018-06-27 18:43] VITALS: BP 138/73
[2018-06-27] MEDS ORDERED: ALBUTEROL SULFATE 0.083% NEB 2.5 MG/3 ML AMPUL NEB PRN (20:00)
== END 2018-06-27 20:15 | disposition home health service (06) | DRG 207 ==
LOC: 3N 18:05
PROVIDERS: ADMIT Internal Medicine; ATTEND Internal Medicine
PROC: 5A1955Z Respiratory Ventilation, Greater than 96 Consecutive Hours (ICD-10-PCS; principal; 2018-06-22)
PROC: 3E0F73Z Introduction of Anti-inflammatory into Respiratory Tract, Via Natural or Artificial Opening (ICD-10-PCS; 2018-06-23)
DX: J96.11 Chronic respiratory failure with hypoxia (principal); Z99.11 Dependence on respirator [ventilator] status; Z75.1 Person awaiting admission to adequate facility elsewhere; J96.12 Chronic respiratory failure with hypercapnia; I50.9 Heart failure, unspecified; E78.00 Pure hypercholesterolemia, unspecified; I11.0 Hypertensive heart disease with heart failure; E11.51 Type 2 diabetes mellitus with diabetic peripheral angiopathy without gangrene; F02.80 Dementia in other diseases classified elsewhere, unspecified severity, without behavioral disturbance, psychotic disturbance, mood disturbance, and anxiety; J44.9 Chronic obstructive pulmonary disease, unspecified; G30.1 Alzheimer's disease with late onset; E11.42 Type 2 diabetes mellitus with diabetic polyneuropathy; Z96.641 Presence of right artificial hip joint; Z79.82 Long term (current) use of aspirin; Z79.4 Long term (current) use of insulin; Z79.899 Other long term (current) drug therapy; Z89.511 Acquired absence of right leg below knee; Z86.14 Personal history of Methicillin resistant Staphylococcus aureus infection; Z86.711 Personal history of pulmonary embolism; Z87.891 Personal history of nicotine dependence; Z88.8 Allergy status to other drugs, medicaments and biological substances; Z93.0 Tracheostomy status
CPT/HCPCS: 82962; 94002; 94003; 94640; 94762; J1815; J3490; S0119

== ENCOUNTER 2018-08-06 12:39 | Inpatient (IN) | payer MEDICARE, MEDICAID ==
--- NOTE | 2018-08-06 13:12 | ER Document Report ---
ED General <TRISTEN DE JESUS - Last Filed: 08/06/18 15:40> - General Mode of Arrival: Ambulatory Information source: Relative TRAVEL OUTSIDE OF THE [place] IN LAST 30 DAYS: No <MERY STAUFFER - Last Filed: 08/06/18 16:49> - General Chief Complaint: Altered Mental Status Stated Complaint: URINARY PROBLEM Time Seen by Provider: 08/06/18 13:02 Notes: Patient is an 80 year old female who is trach dependent, on chronic ventilator and a history of UTIs, pneumonia, atelectasis, sepsis presents to the emergency department accompanied by relative complaining of multiple symptoms including urinary retention, fever, altered mental status, abdominal pain, diarrhea and bed sores. Relative states the patients home nurse believes the patient is retaining urine due to an increase of fluid intake and decrease of urine output. Relative also states the patient has been having loose, foul stools and she recently sent off a small sample to lab which showed to be negative for c. diff. She also stated the patient complained of abdominal and back pain and an increased amount of bed sores on the patients buttocks. Daughter also reports a change in mental status stating the patient has been less communicative than normal. (EHMERY) - Related Data Allergies/Adverse Reactions: alprazolam [From Xanax] Allergy (Verified 03/07/18 09:34) iodine [Iodine] Allergy (Verified 03/07/18 09:34) quetiapine fumarate [From Seroquel] Allergy (Verified 03/07/18 09:34) Past Medical History - General Information source: Relative - Social History Smoking Status: Unknown if Ever Smoked Family History: Reviewed & Not Pertinent - Past Medical History Cardiac Medical History: Reports: Hx Congestive Heart Failure, Hx Hypercholesterolemia, Hx Hypertension, Hx Peripheral Vascular Disease, Hx Pulmonary Embolism Pulmonary Medical History: Reports: Hx COPD, Hx Pneumonia - aspiration Endocrine Medical History: Reports: Hx Diabetes Mellitus Type 1, Hx Diabetes Mellitus Type 2 Psychiatric Medical History: Reports: Hx Dementia Infectious Medical History: Reports: Hx C-Diff, Hx MRSA, Hx VRE Past Surgical History: Reports: Hx Abdominal Surgery - GI tube, Hx Bowel Surgery , Hx Cardiac Surgery - stents, Hx Orthopedic Surgery - Shoulder. 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 - Immunizations Hx Diphtheria, Pertussis, Tetanus Vaccination: Yes <MERY STAUFFER - Last Filed: 08/06/18 16:49> Review of Systems <TRISTEN DE JESUS - Last Filed: 08/06/18 15:40> - Review of Systems Constitutional: See HPI, Fever EENT: No symptoms reported Cardiovascular: No symptoms reported Respiratory: No symptoms reported Gastrointestinal: See HPI, Abdominal pain, Diarrhea Genitourinary: See HPI, Retention Female Genitourinary: No symptoms reported Musculoskeletal: No symptoms reported Skin: See HPI, Lesions Hematologic/Lymphatic: No symptoms reported Neurological/Psychological: No symptoms reported -: Yes All other systems reviewed and negative <MERY STAUFFER - Last Filed: 08/06/18 16:49> - Review of Systems Notes: ROS per relative at bedside. (MERY STAUFFER) Physical Exam <TRISTEN DE JESUS - Last Filed: 08/06/18 15:40> <MERY STAUFFER - Last Filed: 08/06/18 16:49> - Vital signs Vitals: Resp BP Pulse Ox 17 111/51 L 100 08/06/18 13:03 08/06/18 13:03 08/06/18 13:03 - Notes Notes: GENERAL: Eyes closed, responds to noxious stimuli. On ventilator. HEAD: Normocephalic, atraumatic. EYES: Crusting of left eye. Pupils equal, round, and reactive to light. Extraocular movements intact. ENT: Oral mucosa moist, tongue midline. NECK: Full range of motion. Supple. Trachea midline. LUNGS: Trach, on ventilator. Rhonchi in lungs. O2 saturation 100%. HEART: Regular rate and rhythm. No murmurs, gallops, or rubs. ABDOMEN: Soft, non-tender. Non-distended. Bowel sounds present in all 4 quadrants. PEG tube. EXTREMITIES: Moves all 4 extremities spontaneously. No cyanosis. NEUROLOGICAL: Eye closed, responds to noxious stimuli. SKIN: Warm, dry. Erythema to the left lateral leg starting at the hip progressing to the level of the knee with subcutaneous edema, warm and tender to palpation. GI/: Palacios catheter in place. (MERY STAUFFER) Course - Laboratory Result Diagrams: 08/06/18 12:53 08/06/18 12:53 - Diagnostic Test Radiology reviewed: Image reviewed, Reports reviewed - Chest x-ray shows small right infrahilar opacity that could be pneumonia. - EKG Interpretation by Me EKG shows normal: Sinus rhythm, Pike, Intervals, QRS Complexes, ST-T Waves Rate: Normal - 92 Pike/QRS: LBBB - Incomplete left bundle branch block Voltage: Consistant with LVH Heart block present: 1st Degree When compared to previous EKG there are: No significant change <TRISTEN DE JESUS - Last Filed: 08/06/18 15:40> - Laboratory Result Diagrams: 08/06/18 12:53 08/06/18 12:53 <MERY STAUFFER - Last Filed: 08/06/18 16:49> - Re-evaluation Re-evalutation: 08/06/18 15:31 The patient's BUN today is 111, her baseline BUN is about 50. The patient's blood pressure has been dropping some since she got here, is currently 90 systolic. She will be given IV normal saline boluses to bring her blood pressure back up. This will be done slowly as she does have a history of congestive heart failure. (TRISTEN DE JESUS) - Vital Signs Vital signs: Temp Pulse Resp BP Pulse Ox 98.7 F 16 98/65 L 100 08/06/18 13:07 08/06/18 14:30 08/06/18 14:30 08/06/18 14:30 - Laboratory Laboratory results interpreted by me: 08/06/18 08/06/18 08/06/18 12:53 12:53 12:53 WBC 32.1 H* RBC 3.48 L Hgb 9.3 L Hct 29.1 L MCH 26.9 L RDW 18.5 H Plt Count 455 H Abs Neuts (Manual) 25.0 H Abs Lymphs (Manual) 5.1 H Abs Monocytes (Manual) 1.9 H Potassium 5.7 H Carbon Dioxide 20 L BUN 111 H Creatinine 1.98 H Est GFR ( Amer) 29 L Est GFR (Non-Af Amer) 24 L Glucose 141 H Calcium 10.7 H AST 39 H Creatine Kinase < 20 L NT-Pro-B Natriuret Pep Urine Protein 100 H Ur Leukocyte Esterase LARGE H Urine Ascorbic Acid 40 H 08/06/18 12:53 WBC RBC Hgb Hct MCH RDW Plt Count Abs Neuts (Manual) Abs Lymphs (Manual) Abs Monocytes (Manual) Potassium Carbon Dioxide BUN Creatinine Est GFR ( Amer) Est GFR (Non-Af Amer) Glucose Calcium AST Creatine Kinase NT-Pro-B Natriuret Pep 5370 H Urine Protein Ur Leukocyte Esterase Urine Ascorbic Acid Critical Care Note - Critical Care Note Total time excluding time spent on procedures (mins): 40 <TRISTEN DE JESUS - Last Filed: 08/06/18 15:40> Discharge - Discharge Admitting Provider: Fermin multani. Unit Admitted: IMCU <TRISTEN DE JESUS - Last Filed: 08/06/18 15:40> <MERY STAUFFER - Last Filed: 08/06/18 16:49> - Discharge Clinical Impression: Lethargy, Dehydration Altered mental status Qualifiers: Altered mental status type: unspecified Qualified Code(s): R41.82 - Altered mental status, unspecified Leukocytosis Qualifiers: Leukocytosis type: unspecified Qualified Code(s): D72.829 - Elevated white blood cell count, unspecified Cellulitis Qualifiers: Site of cellulitis: extremity Site of cellulitis of extremity: lower extremity Laterality: left Qualified Code(s): L03.116 - Cellulitis of left lower limb Hypotension Qualifiers: Hypotension type: unspecified hypotension type Qualified Code(s): I95.9 - Hypotension, unspecified Pneumonia Qualifiers: Pneumonia type: due to unspecified organism Laterality: right Lung location: unspecified part of lung Qualified Code(s): J18.9 - Pneumonia, unspecified organism Disposition: ADMITTED INPATIENT Scribe Attestation: 08/06/18 13:46 I personally performed the services described in the documentation, reviewed and edited the documentation which was dictated to the scribe in my presence, and it accurately records my words and actions. (TRISTEN DE JESUS) Scribe Documentation - Scribe Written by Miguel Ángel:: Miguel Ángel Sawant, 08/06/2018 13:17 acting as scribe for :: Wayne <MERY STAUFFER - Last Filed: 08/06/18 16:49>
[2018-08-06 13:18] LABS: HEMATOCRIT 29.1 % (36.0-47.0); HEMOGLOBIN 9.3 g/dL (12.0-15.5); MEAN CORPUSCULAR HEMOGLOBIN 26.9 pg (27.0-33.4); MEAN CORPUSCULAR HGB CONC 32.1 g/dL (32.0-36.0); MEAN CORPUSCULAR VOLUME 84 fl (80-97); PLATELET COUNT 455 10^3/uL (150-450); RED BLOOD COUNT 3.48 10^6/uL (3.72-5.28); RED CELL DISTRIBUTION WIDTH 18.5 % (11.5-14.0)
[2018-08-06 13:22] LABS: APPEARANCE,URINE CLOUDY; BILIRUBIN,URINE NEGATIVE (NEGATIVE); COLOR,URINE YELLOW; GLUCOSE, URINE NEGATIVE (NEGATIVE); KETONES,URINE NEGATIVE (NEGATIVE); LEUKOCYTE ESTERASE,URINE LARGE (NEGATIVE); NITRITE,URINE NEGATIVE (NEGATIVE); PROTEIN,URINE 100 mg/dL (NEGATIVE); URINE SPECIFIC GRAVITY 1.013; UROBILINOGEN,URINE NEGATIVE mg/dL (<2.0)
[2018-08-06 13:38] LABS: ALANINE AMINOTRANSFERASE 50 U/L (9-52); ALBUMIN 3.6 g/dL (3.5-5.0); ALKALINE PHOSPHATASE 113 U/L (38-126); ANION GAP 16 (5-19); ASPARTATE AMINO TRANSFERASE 39 U/L (14-36); BILIRUBIN,DIRECT 0.3 mg/dL (0.0-0.4); BILIRUBIN,TOTAL 0.4 mg/dL (0.2-1.3); BLOOD UREA NITROGEN 111 mg/dL (7-20); CALCIUM 10.7 mg/dL (8.4-10.2); CARBON DIOXIDE 20 mmol/L (22-30); CHLORIDE 102 mmol/L (98-107); CREATINE KINASE < 20 U/L (30-135); GLUCOSE 141 mg/dL (75-110); POTASSIUM 5.7 mmol/L (3.6-5.0); SODIUM 138.2 mmol/L (137-145)
[2018-08-06 13:44] LABS: ABSOLUTE LYMPHOCYTES# (MANUAL) 5.1 10^3/uL (0.5-4.7); ABSOLUTE MONOCYTES # (MANUAL) 1.9 10^3/uL (0.1-1.4); BASOPHILS % (MANUAL) 0 % (0-2); EOSINOPHILS % (MANUAL) 0 % (0-6); LYMPHOCYTES % (MANUAL) 16 % (13-45); MONOCYTES % (MANUAL) 6 % (3-13); SEGMENTED NEUTROPHILS % (MAN) 78 % (42-78); TOTAL CELLS COUNTED 100
[2018-08-06 13:45] LABS: ANISOCYTOSIS 2+; PLATELET COMMENT INCREASED; POIKILOCYTOSIS SLIGHT; TOXIC GRANULATION SLIGHT
[2018-08-06 13:48] LABS: CREATINE KINASE MB 1.12 ng/mL (<4.55)
[2018-08-06 13:50] LABS: WHITE BLOOD COUNT 32.1 10^3/uL (4.0-10.5)
[2018-08-06 13:52] LABS: TROPONIN I 0.071 ng/mL
--- NOTE | 2018-08-06 14:14 | RADIOLOGY REPORT (SQ) ---
EXAM DESCRIPTION: CHEST SINGLE VIEW COMPLETED DATE/TIME: 08/06/2018 1:58 pm REASON FOR STUDY: Ventilator dependent COPD, fever COMPARISON: 12/19/2016 and earlier EXAM PARAMETERS: NUMBER OF VIEWS: One view. TECHNIQUE: Single frontal radiographic view of the chest acquired. RADIATION DOSE: NA LIMITATIONS: None. FINDINGS: LUNGS AND PLEURA: Small right infrahilar opacity. Blunting of the left costophrenic angle . Right costophrenic angle is sharp. No pneumothorax. Persistent elevation the right hemidiaphragm . MEDIASTINUM AND HILAR STRUCTURES: No masses. Contour normal. HEART AND VASCULAR STRUCTURES: Heart normal in size. Normal vasculature. BONES: No acute findings. HARDWARE: Tracheostomy tube tip terminates at the level of the clavicle heads. OTHER: No other significant finding. IMPRESSION: 1. Small right infrahilar opacity. Findings may represent pneumonia, in the appropriate clinical set ting. 2. Blunting of the left costophrenic angle which may be secondary to atelectasis or trace left pleura l effusion. TECHNICAL DOCUMENTATION: JOB ID: [id number] [employer]- All Rights Reserved Reading location - IP/workstation name: [email or web address]
[2018-08-06] MEDS ORDERED: CEFTRIAXONE 1 GM/D5W RTU 1 GM/50 ML RTUPB IV ONE (15:02)
[2018-08-06] MEDS ORDERED: ERTAPENEM SODIUM INJ 1 GM VIAL IV ONE (15:06)
[2018-08-06] MEDS ORDERED: NORMAL SALINE 1000 ML 250 ML IV ONE (15:27)
--- NOTE | 2018-08-06 17:53 | EKG REPORT ---
SEVERITY:- ABNORMAL ECG - SINUS RHYTHM FIRST DEGREE AV BLOCK INCOMPLETE LEFT BUNDLE BRANCH BLOCK LVH WITH SECONDARY REPOLARIZATION ABNORMALITY : Confirmed by: Ethan Azar MD 06-Aug-2018 17:53:16
[2018-08-06] MEDS ORDERED: ACETAMINOPHEN 325 MG TABLET PEG PRN ×2 (19:04→21:43)
[2018-08-06] MEDS ORDERED: DEXTROSE 40% GEL 15 GM TUBE PO PRN ×2 (19:07)
[2018-08-06] MEDS ORDERED: DEXTROSE 50%-WATER 25 GM/50 ML DISP.SYRIN IV PRN ×2 (19:07)
[2018-08-06] MEDS ORDERED: GLUCAGON,HUMAN RECOMB 1 MG INJ IM PRN (19:07)
[2018-08-06] MEDS ORDERED: IMIPENEM/CILASTATIN SODIUM INJ 500 MG VIAL IV PRN (19:20)
--- NOTE | 2018-08-06 19:42 | PDOC H&P ---
History of Present Illness Admission Date/PCP: 08/06/18 16:16 BAKARI BECKER MD History of Present Illness: BRIANA BRADY is a 82 year old female of Dr Becker who was brought to the Ed by daughter with complain of change in her mental status with associated fever, urinary retention due to less urine output, abdominal pain, persistent diarrhea over several days, and recent development of sores on her buttock. Son at bedside reported that patient do not have air mattress at home. Patient remain bed bound on ventilator support due to chronic respiratory failure. Her morbidities include Congestive Heart Failure, Hypertension, Hyperlipidemia, Peripheral Vascular Disease s/p right AKA, Pulmonary Embolism, COPD, Diabetes Mellitus Type 2, Dementia, and osteoarthritis. her initial ED evaluation was remarkable for severe leukocytosis with left shift, abnormal Urinalysis and chest X ray suggestive of right infra hilar opacity. In view of her presentation , laboratory and clinical examination findings, the Ed physician recommended hospitalization for further evaluation and management. Past Medical History Cardiac Medical History: Reports: Congestive Heart Failure, Hyperlipidema, Hypertension, Peripheral Vascular Disease, Pulmonary Embolism Pulmonary Medical History: Reports: Chronic Obstructive Pulmonary Disease (COPD) , Pneumonia - aspiration Endocrine Medical History: Reports: Diabetes Mellitus Type 1, Diabetes Mellitus Type 2 Psychiatric Medical History: Reports: Dementia Denies: Depression Infectious Medical History: Reports: Clostridium Difficile, Methicillin- Resistant Staph Aureus, Vancomycin-Resistant Enterococci Past Surgical History Past Surgical History: Reports: Orthopedic Surgery - Shoulder. 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 Social History Smoking Status: Never Smoker Frequency of Alcohol Use: None Hx Recreational Drug Use: No Drugs: None Hx Prescription Drug Abuse: No Family History Family History: Reviewed & Not Pertinent Parental Family History Reviewed: Yes Children Family History Reviewed: Yes Sibling(s) Family History Reviewed.: Yes Medication/Allergy Home Medications: Albuterol Sulfate 0.63mg/3ml 0.63 mg NEB Q6HP PRN 05/17/18 Ondansetron [Ondansetron Odt] 8 mg PEG Q8 PRN 06/22/18 Acetaminophen [Tylenol 325 mg Tablet] 325 mg PEG Q6HP PRN #90 tablet 06/26/18 Acidophilus/Bulgaricus [Lactinex Packet] 1 packet PEG DAILY PRN #90 gran.pack Amlodipine Besylate [Norvasc 10 mg Tablet] 10 mg PEG DAILY #90 tablet 06/26/18 Ascorbic Acid [C-500] 500 mg PEG DAILY #90 tab.chew 06/26/18 Aspirin [Ecotrin 81 mg EC Tablet] 81 mg PEG DAILY #90 tabec 06/26/18 Budesonide [Pulmicort Neb 0.5 mg/2 ml Ampul] 0.5 mg NEB RTQ12 #90 ampul.neb 10/13 Diaper,Brief,Adult, Disposable [Brief] 1 each MC TID #270 each 06/26/18 Furosemide [Lasix 40 mg Tablet] 40 mg PEG BID #60 tablet 06/26/18 Insulin Aspart [Novolog Insulin (Aspart) 100 unit/mL] 0 unit SUBCUT .SLD SCALE # 90 unit 06/26/18 Insulin Detemir [Levemir Flextouch] 10 unit SQ DAILY #3 insuln.pen 06/26/18 Lisinopril [Prinivil 40 mg Tablet] 40 mg PEG DAILY #90 tablet 06/26/18 Memantine HCl [Namenda 10 mg Tablet] 10 mg PO DAILY #90 tablet 06/26/18 Multivitamin [Chewable-Gogo] 1 each PEG DAILY #90 tab.chew 06/26/18 Sennosides/Docusate Sodium [Senna-S Tablet] 1 each PEG DAILY #90 tablet Syringe, Disposable, 12 ml [Syringe Without Needle] 1 each MC DAILY #12 disp.syrin 06/26/18 Allergies/Adverse Reactions: alprazolam [From Xanax] Allergy (Verified 03/07/18 09:34) iodine [Iodine] Allergy (Verified 03/07/18 09:34) quetiapine fumarate [From Seroquel] Allergy (Verified 03/07/18 09:34) Review of Systems ROS unobtainable: Due to endotracheal tube, Due to mental status All systems: as per PMH - from daughter and son at bedside. Physical Exam Vital Signs: Temp Pulse Resp BP Pulse Ox 97.7 F 79 20 108/54 L 97 08/06/18 18:37 08/06/18 18:37 08/06/18 18:37 08/06/18 18:37 08/06/18 18:37 Intake & Output 08/05/18 08/06/18 08/07/18 06:59 06:59 06:59 Intake Total 250 Output Total 400 Balance -150 General appearance: PRESENT: other - remain on ventilator support through tracheostomy. Head exam: PRESENT: atraumatic, normocephalic Eye exam: PRESENT: conjunctiva pink, EOMI, PERRLA. ABSENT: scleral icterus Ear exam: PRESENT: normal external ear exam Mouth exam: PRESENT: dry mucosa Neck exam: PRESENT: tracheostomy Respiratory exam: PRESENT: clear to auscultation monica, decreased breath sounds - at lung abses Cardiovascular exam: PRESENT: RRR. ABSENT: diastolic murmur, rubs, systolic murmur Vascular exam: ABSENT: pallor GI/Abdominal exam: PRESENT: normal bowel sounds, soft, other - PEG toube site satisfactory. ABSENT: distended, guarding, mass, organolmegaly, rebound, tenderness Rectal exam: PRESENT: deferred Extremities exam: PRESENT: right AKA. ABSENT: pedal edema Musculoskeletal exam: PRESENT: deformity - related to multiple joints involvement with arthritis Neurological exam: PRESENT: altered - not verbally communicative nor follow simple commands, awake Psychiatric exam: PRESENT: other - limited due to her mental status Skin exam: PRESENT: dry, warm, other - stage 2 pressure ulcers over buttocks Results Laboratory Results: I reviewed her lab results on [employer] and form significant part of my medical decision making. Impressions: Chest X-Ray 08/06/18 13:12 IMPRESSION: 1. Small right infrahilar opacity. Findings may represent pneumonia, in the appropriate clinical setting. 2. Blunting of the left costophrenic angle which may be secondary to atelectasis or trace left pleural effusion. Assessment & Plan - Diagnosis (1) Metabolic encephalopathy Is this a current diagnosis for this admission?: Yes Plan: Start on antibiotic therapy with IV fluid support. Maintain on ventilatory support. (2) Urinary tract infection associated with indwelling urethral catheter Qualifiers: Encounter type: initial encounter Qualified Code(s): T83.511A - Infection and inflammatory reaction due to indwelling urethral catheter, initial encounter ; N39.0 - Urinary tract infection, site not specified; N39.0 - Urinary tract infection, site not specified Is this a current diagnosis for this admission?: Yes Plan: Start on antibiotic therapy with Primaxin. Maintain on IV fluid support. Follow up on urine culture and adjust antibiotic as indicated. (3) Right lower lobe pneumonia Qualifiers: Pneumonia type: due to unspecified organism Qualified Code(s): J18.1 - Lobar pneumonia, unspecified organism Is this a current diagnosis for this admission?: Yes Plan: Start on antibiotic therapy with Primaxin. Maintain on IV fluid support. Follow up on blood culture and adjust antibiotic as indicated. (4) Stage II pressure ulcer of buttock Qualifiers: Laterality: unspecified laterality Qualified Code(s): L89.302 - Pressure ulcer of unspecified buttock, stage 2 Is this a current diagnosis for this admission?: Yes Plan: Start on Allevyn dressing prn and pressure relieving support. Start on Glucena 1.2 gypsy/mL at 20mL/hour. Optimize nutritional support. (5) Chronic respiratory failure with hypoxia and hypercapnia Is this a current diagnosis for this admission?: Yes Plan: Continue vent support. Maintain on bronchodilators therapy. (6) 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 Is this a current diagnosis for this admission?: Yes Plan: Continue vent support. Maintain on bronchodilators therapy. (7) Diarrhea Qualifiers: Diarrhea type: unspecified type Qualified Code(s): R19.7 - Diarrhea, unspecified Is this a current diagnosis for this admission?: Yes Plan: Obtain stool evaluation for C. difficle toxin titer and possible infectious process. (8) Type 2 diabetes mellitus Qualifiers: Diabetes mellitus terminal system operator insulin use: with terminal system operator use Diabetes mellitus complication status: with neurologic complications Diabetes mellitus complication detail: with polyneuropathy Qualified Code(s): E11.42 - Type 2 diabetes mellitus with diabetic polyneuropathy Is this a current diagnosis for this admission?: Yes Plan: Continue pre-admission medication management and sliding scale humalog insulin coverage. - Time Time Spent: 50 to 70 Minutes Medications reviewed and adjusted accordingly: Yes Anticipated discharge: Home with Homehealth Within: Other - Inpatient Certification Based on my medical assessment, after consideration of the patient's comorbidities, presenting symptoms, or acuity I expect that the services needed warrant INPATIENT care.: Yes I certify that my determination is in accordance with my understanding of Medicare's requirements for reasonable and necessary INPATIENT services [42 CFR 412.3e].: Yes Medical Necessity: Need Close Monitoring Due to Risk of Patient Decompensation, Need For IV Fluids, Need For Continuous Telemetry Monitoring, Need for Nebulizer Therapy and Monitoring of Response, Need for IV Antibiotics, Risk of Complication if Not Cared For in Hospital Post Hospital Care: D/C Telephone Maintainer Documentation - Plan Summary Plan Summary: See covering attending physician orders. I had extensive discussion with family at bed side regarding care plan and they are in agrement. Discharge planning will including air mattress to address her pressure ulcers.
[2018-08-06] MEDS ORDERED: BULGARICUS PEG PRN (21:43)
[2018-08-06] MEDS ORDERED: ACETAMINOPHEN 325 MG TABLET PO PRN (21:43)
[2018-08-06] MEDS ORDERED: INSULIN ASPART SUBCUT PRN (21:43)
[2018-08-06] MEDS ORDERED: ALBUTEROL SULFATE 0.083% NEB 2.5 MG/3 ML AMPUL NEB PRN (21:43)
[2018-08-06] MEDS ORDERED: ACIDOPHILUS PEG PRN (21:43)
[2018-08-06] MEDS ORDERED: ONDANSETRON 4 MG TAB.RAPDIS PEG PRN (22:00)
[2018-08-06] MEDS ORDERED: IMIPENEM/CILASTATIN SODIUM INJ 500 MG VIAL IV ONE (22:45)
[2018-08-06] MEDS ORDERED: CIPROFLOXACIN-HC OTIC SUSP 10 ML ONE (22:47)
[2018-08-06] MEDS: CIPROFLOXACIN-HC OTIC SUSP 10 ML OT SCH (23:12)
[2018-08-07] MEDS: IMIPENEM/CILASTATIN SODIUM 500 MG in NORMAL SALINE 100 ML IV SCH ×5 (00:44→23:36)
[2018-08-07] MEDS: ALBUTEROL SULFATE 0.083% NEB 2.5 MG/3 ML AMPUL NEB SCH ×5 (02:28→20:52)
[2018-08-07] MEDS: CIPROFLOXACIN-HC OTIC SUSP 10 ML OT SCH ×5 (03:17→19:18)
[2018-08-07 05:35] LABS: ABSOLUTE BASOPHILS # (AUTO) 0.1 10^3/uL (0.0-0.2); ABSOLUTE EOSINOPHILS # (AUTO) 0.9 10^3/uL (0.0-0.6); ABSOLUTE LYMPHOCYTES (AUTO) 4.1 10^3/uL (0.5-4.7); ABSOLUTE MONOCYTES (AUTO) 0.9 10^3/uL (0.1-1.4); ABSOLUTE NEUT (AUTO) 13.9 10^3/uL (1.7-8.2); BASOPHILS % (AUTO) 0.4 % (0-2); EOSINOPHILS % (AUTO) 4.3 % (0-6); HEMATOCRIT 25.7 % (36.0-47.0); HEMOGLOBIN 8.5 g/dL (12.0-15.5); LYMPHOCYTES % (AUTO) 20.5 % (13-45); MEAN CORPUSCULAR HEMOGLOBIN 27.4 pg (27.0-33.4); MEAN CORPUSCULAR VOLUME 83 fl (80-97); MONOCYTES % (AUTO) 4.8 % (3-13); PLATELET COUNT 372 10^3/uL (150-450); RED CELL DISTRIBUTION WIDTH 18.3 % (11.5-14.0); TOTAL CELLS COUNTED % (AUTO) 100 %; WHITE BLOOD COUNT 19.8 10^3/uL (4.0-10.5)
[2018-08-07 06:20] LABS: ALANINE AMINOTRANSFERASE 49 U/L (9-52); ALBUMIN 3.1 g/dL (3.5-5.0); ALKALINE PHOSPHATASE 95 U/L (38-126); ANION GAP 14 (5-19); ASPARTATE AMINO TRANSFERASE 38 U/L (14-36); BILIRUBIN,DIRECT 0.4 mg/dL (0.0-0.4); BILIRUBIN,TOTAL 0.4 mg/dL (0.2-1.3); BLOOD UREA NITROGEN 95 mg/dL (7-20); CARBON DIOXIDE 17 mmol/L (22-30); CHLORIDE 110 mmol/L (98-107); GLUCOSE 117 mg/dL (75-110); SODIUM 140.7 mmol/L (137-145); TOTAL PROTEIN 7.6 g/dL (6.3-8.2)
[2018-08-07 06:24] LABS: POTASSIUM 4.7 mmol/L (3.6-5.0)
[2018-08-07] MEDS: LANSOPRAZOLE 30 MG TAB.RAP.DR PO SCH (06:32)
[2018-08-07] MEDS ORDERED: AMLODIPINE BESYLATE 10 MG TABLET PEG SCH (10:00)
[2018-08-07] MEDS ORDERED: MULTIVITAMIN TABLET PO SCH (10:00)
[2018-08-07] MEDS ORDERED: ASPIRIN 81 MG TABLET, ENT COATED PO SCH (10:00)
[2018-08-07] MEDS: ASCORBIC ACID 500 MG TABLET PEG SCH (10:36)
[2018-08-07] MEDS: FUROSEMIDE 40 MG TABLET PEG SCH ×2 (10:36→10:44)
[2018-08-07] MEDS: MEMANTINE HCL 10 MG TABLET PEG SCH (10:36)
[2018-08-07] MEDS: ENOXAPARIN SODIUM INJ 30 MG/0.3 ML DISP.SYRIN SUBCUT SCH (10:38)
[2018-08-07] MEDS: INSULIN DETEMIR 100 UNIT/ML 3 ML PEN SUBCUT SCH (10:39)
[2018-08-07] MEDS: LISINOPRIL 10 MG TABLET PEG SCH (10:57)
[2018-08-07 15:22] LABS: PATH REVIEW PATHOLOGIST REVIEWED
--- NOTE | 2018-08-07 20:56 | PDOC PROGRESS REPORT ---
Subjective Progress Note for:: 08/07/18 Subjective:: Patient was readmitted over the weekend, she is chronically ill with multiple hospital admission, she has advanced dementia, chronic respiratory failure, vent dependent, chronic indwelling Palacios catheter, PEG tube insertion, stage III decubitus ulcer the sacrum, was admitted for sepsis Reason For Visit: UTI, PNEUMONIA, VENTILATOR DEPENDENT CHRONIC Physical Exam Vital Signs: Temp Pulse Resp BP Pulse Ox 97.7 F 89 15 103/39 L 100 08/07/18 11:29 08/07/18 20:25 08/07/18 20:25 08/07/18 11:29 08/07/18 20:25 Pulse Oximeter Continuous Start: 08/07/18 10: 33 Freq: RTQ4 Status: Active Document 08/07/18 20:25 LDA (Rec: 08/07/18 20:25 LDA [id number]) Pulse Oximetry Assessment Oxygen Saturation (92-100) 100 Oxygen Delivery Method Mechanical Ventilator Fraction of Inspired Oxygen (FIO2) 30 Equipment Usage Equipment in Use Continuous SpO2 Machine # 1-2 Intake & Output 08/06/18 08/07/18 08/08/18 06:59 06:59 06:59 Intake Total 350 452 Output Total 850 650 Balance -500 -198 Weight 59.1 kg General appearance: PRESENT: no acute distress Eye exam: PRESENT: PERRLA Respiratory exam: PRESENT: clear to auscultation monica Cardiovascular exam: PRESENT: +S1, +S2 GI/Abdominal exam: PRESENT: soft Neurological exam: PRESENT: alert Results Laboratory Results: 08/07/18 05:20 08/07/18 05:20 08/07/18 08/07/18 05:20 05:20 WBC 19.8 H RBC 3.10 L Hgb 8.5 L Hct 25.7 L MCV 83 MCH 27.4 MCHC 33.0 RDW 18.3 H Plt Count 372 Seg Neutrophils % 70.0 Lymphocytes % 20.5 Monocytes % 4.8 Eosinophils % 4.3 Basophils % 0.4 Absolute Neutrophils 13.9 H Absolute Lymphocytes 4.1 Absolute Monocytes 0.9 Absolute Eosinophils 0.9 H Absolute Basophils 0.1 Sodium 140.7 Potassium 4.7 D Chloride 110 H Carbon Dioxide 17 L Anion Gap 14 BUN 95 H Creatinine 1.83 H Est GFR ( Amer) 32 L Est GFR (Non-Af Amer) 26 L Glucose 117 H Calcium 10.0 Total Bilirubin 0.4 AST 38 H ALT 49 Alkaline Phosphatase 95 Total Protein 7.6 Albumin 3.1 L Impressions: Chest X-Ray 08/06/18 13:12 IMPRESSION: 1. Small right infrahilar opacity. Findings may represent pneumonia, in the appropriate clinical setting. 2. Blunting of the left costophrenic angle which may be secondary to atelectasis or trace left pleural effusion. Assessment & Plan - Diagnosis (1) Sepsis Qualifiers: Sepsis type: sepsis due to unspecified organism Qualified Code(s): A41.9 - Sepsis, unspecified organism Is this a current diagnosis for this admission?: Yes (2) Decubitus ulcer, stage 3 Qualifiers: Pressure injury location: sacral region Qualified Code(s): L89.153 - Pressure ulcer of sacral region, stage 3 Is this a current diagnosis for this admission?: Yes (3) Urinary tract infection associated with indwelling urethral catheter Qualifiers: Encounter type: initial encounter Qualified Code(s): T83.511A - Infection and inflammatory reaction due to indwelling urethral catheter, initial encounter ; N39.0 - Urinary tract infection, site not specified; N39.0 - Urinary tract infection, site not specified Is this a current diagnosis for this admission?: Yes (4) Ventilator associated pneumonia Is this a current diagnosis for this admission?: Yes - Plan Summary Plan Summary: Continue present treatment, we need to address CODE STATUS
[2018-08-07] MEDS: CIPROFLOXACIN HCL 0.3% OPH SOLN 2.5 ML OU SCH (22:22)
[2018-08-08] MEDS: INSULIN LISPRO 100 UNIT/ML 3 ML VIAL SUBCUT PRN ×4 (01:38→18:35)
[2018-08-08] MEDS: ALBUTEROL SULFATE 0.083% NEB 2.5 MG/3 ML AMPUL NEB SCH ×4 (01:48→20:20)
[2018-08-08] MEDS: CIPROFLOXACIN HCL 0.3% OPH SOLN 2.5 ML OU SCH ×6 (01:48→21:35)
[2018-08-08] MEDS: NORMAL SALINE 1000 ML 1,000 ML IV PRN ×2 (03:17→15:31)
[2018-08-08] MEDS: IMIPENEM/CILASTATIN SODIUM 500 MG in NORMAL SALINE 100 ML IV SCH ×3 (05:05→17:58)
[2018-08-08] MEDS: LANSOPRAZOLE 30 MG TAB.RAP.DR PO SCH (05:09)
[2018-08-08] MEDS ORDERED: LACTOBACILLUS ACIDOPHILUS 250 MG TAB PEG PRN (08:05)
[2018-08-08] MEDS: ASCORBIC ACID 500 MG TABLET PEG SCH (09:40)
[2018-08-08] MEDS: LISINOPRIL 10 MG TABLET PEG SCH (09:40)
[2018-08-08] MEDS: ENOXAPARIN SODIUM INJ 30 MG/0.3 ML DISP.SYRIN SUBCUT SCH (09:40)
[2018-08-08] MEDS: MULTIVITAMINS W-IRON TABLET, CHEWABLE PEG SCH (09:40)
[2018-08-08] MEDS: MEMANTINE HCL 10 MG TABLET PEG SCH (09:40)
[2018-08-08] MEDS: FUROSEMIDE 40 MG TABLET PEG SCH (09:40)
[2018-08-08] MEDS: ASPIRIN 81 MG TABLET, CHEWABLE PEG SCH (09:41)
[2018-08-08] MEDS: INSULIN DETEMIR 100 UNIT/ML 3 ML PEN SUBCUT SCH (09:41)
--- NOTE | 2018-08-08 19:52 | PDOC PROGRESS REPORT ---
Subjective Progress Note for:: 08/08/18 Subjective:: She was seen by the bedside, she has UTI, pneumonia and infected decubiti ulcer Reason For Visit: UTI, PNEUMONIA, VENTILATOR DEPENDENT CHRONIC Physical Exam Vital Signs: Temp Pulse Resp BP Pulse Ox 98.8 F 101 H 22 H 116/92 H 100 08/08/18 15:16 08/08/18 15:16 08/08/18 15:16 08/08/18 15:16 08/08/18 16:26 Pulse Oximeter Continuous Start: 08/07/18 10: 33 Freq: RTQ4 Status: Active Document 08/08/18 16:26 HCR (Rec: 08/08/18 16:30 HCR [id number]) Pulse Oximetry Assessment Oxygen Saturation (92-100) 100 Oxygen Delivery Method Mechanical Ventilator Fraction of Inspired Oxygen (FIO2) 30 Equipment Usage Equipment in Use Continuous SpO2 Machine # 2 Intake & Output 08/07/18 08/08/18 08/09/18 06:59 06:59 06:59 Intake Total 117 254 7482 Output Total 850 1475 1075 Balance -500 -633 863 Weight 59.1 kg 61.3 kg General appearance: PRESENT: no acute distress Eye exam: PRESENT: PERRLA Respiratory exam: PRESENT: clear to auscultation monica Cardiovascular exam: PRESENT: +S1, +S2 GI/Abdominal exam: PRESENT: soft Neurological exam: PRESENT: alert Results Laboratory Results: 08/07/18 05:20 08/07/18 05:20 08/08/18 08/08/18 08:35 08:35 Stool Occult Blood NEGATIVE Stool for White Cells NO WBCs SEEN Impressions: Chest X-Ray 08/06/18 13:12 IMPRESSION: 1. Small right infrahilar opacity. Findings may represent pneumonia, in the appropriate clinical setting. 2. Blunting of the left costophrenic angle which may be secondary to atelectasis or trace left pleural effusion. Assessment & Plan - Diagnosis (1) Sepsis Qualifiers: Sepsis type: sepsis due to unspecified organism Qualified Code(s): A41.9 - Sepsis, unspecified organism Is this a current diagnosis for this admission?: Yes (2) Decubitus ulcer, stage 3 Qualifiers: Pressure injury location: sacral region Qualified Code(s): L89.153 - Pressure ulcer of sacral region, stage 3 Is this a current diagnosis for this admission?: Yes (3) Urinary tract infection associated with indwelling urethral catheter Qualifiers: Encounter type: initial encounter Qualified Code(s): T83.511A - Infection and inflammatory reaction due to indwelling urethral catheter, initial encounter ; N39.0 - Urinary tract infection, site not specified; N39.0 - Urinary tract infection, site not specified Is this a current diagnosis for this admission?: Yes (4) Ventilator associated pneumonia Is this a current diagnosis for this admission?: Yes
[2018-08-09] MEDS: IMIPENEM/CILASTATIN SODIUM 500 MG in NORMAL SALINE 100 ML IV SCH ×5 (00:57→23:52)
[2018-08-09] MEDS: INSULIN LISPRO 100 UNIT/ML 3 ML VIAL SUBCUT PRN ×3 (00:58→13:16)
[2018-08-09] MEDS: CIPROFLOXACIN HCL 0.3% OPH SOLN 2.5 ML OU SCH ×6 (02:16→21:57)
[2018-08-09] MEDS: ALBUTEROL SULFATE 0.083% NEB 2.5 MG/3 ML AMPUL NEB SCH ×4 (02:31→20:09)
--- NOTE | 2018-08-09 03:47 | OPERATIVE REPORT E ---
Operative Report NAME: BRIANA BRADY : 1935 AGE: 82Y DATE OF SURGERY: 08/08/2018 ROOM: 334 PREOPERATIVE DIAGNOSIS: SACRAL DECUBITUS ULCER STAGE II-III. POSTOPERATIVE DIAGNOSIS: SACRAL DECUBITUS ULCER STAGE II-III. OPERATION: Sharp debridement of decubitus ulcer. SURGEON: MERLINE JONES M.D. DESCRIPTION OF PROCEDURE: The patient was placed in the right lateral decubitus position and the sacral decubitus area was then prepped in the usual sterile fashion. It appears that she just has a small area of dark discoloration of the thickened skin, about 1.5 cm in diameter. This was then sharply debrided with the use of 11-blade. There was a small amount of bleeding noted. She also has another area on the left buttock with almost complete skin excoriation, roughly about 2 x 3 cm in diameter. She has further superficial excoriation of the skin around the sacral area. She probably has been having this problem for the past 2-3 weeks according to the daughter. They take care of her at home. She is trach dependent and bedridden. The patient tolerated procedure well. The patient will need leave-in dressings for the sacral decubitus. Hopefully this will prevent contamination of the sacral decubitus ulcers by the stool. Also, she needs frequent turning [id number], which the family has been doing. DICTATING PHYSICIAN: MERLINE JONES M.D. [id number] PHY#: [id number] 2007 ID: [id number] JOB#: [id number] ACCT: [id number] cc:MERLINE JONES M.D. >
[2018-08-09] MEDS: NORMAL SALINE 1000 ML 1,000 ML IV PRN ×2 (03:57→17:52)
[2018-08-09] MEDS: LANSOPRAZOLE 30 MG TAB.RAP.DR PO SCH (06:55)
[2018-08-09] MEDS: INSULIN DETEMIR 100 UNIT/ML 3 ML PEN SUBCUT SCH (09:37)
[2018-08-09] MEDS: ASCORBIC ACID 500 MG TABLET PEG SCH (09:38)
[2018-08-09] MEDS: FUROSEMIDE 40 MG TABLET PEG SCH (09:38)
[2018-08-09] MEDS: LISINOPRIL 10 MG TABLET PEG SCH (09:38)
[2018-08-09] MEDS: MEMANTINE HCL 10 MG TABLET PEG SCH (09:38)
[2018-08-09] MEDS: MULTIVITAMINS W-IRON TABLET, CHEWABLE PEG SCH (09:38)
[2018-08-09] MEDS: ASPIRIN 81 MG TABLET, CHEWABLE PEG SCH (09:38)
[2018-08-09] MEDS: ENOXAPARIN SODIUM INJ 30 MG/0.3 ML DISP.SYRIN SUBCUT SCH (09:58)
[2018-08-09 16:52] LABS: ABSOLUTE BASOPHILS # (AUTO) 0.1 10^3/uL (0.0-0.2); ABSOLUTE EOSINOPHILS # (AUTO) 0.5 10^3/uL (0.0-0.6); ABSOLUTE LYMPHOCYTES (AUTO) 2.1 10^3/uL (0.5-4.7); ABSOLUTE MONOCYTES (AUTO) 1.3 10^3/uL (0.1-1.4); ABSOLUTE NEUT (AUTO) 10.2 10^3/uL (1.7-8.2); BASOPHILS % (AUTO) 0.9 % (0-2); EOSINOPHILS % (AUTO) 3.2 % (0-6); HEMATOCRIT 25.9 % (36.0-47.0); HEMOGLOBIN 8.3 g/dL (12.0-15.5); LYMPHOCYTES % (AUTO) 14.7 % (13-45); MEAN CORPUSCULAR HEMOGLOBIN 26.9 pg (27.0-33.4); MEAN CORPUSCULAR VOLUME 84 fl (80-97); PLATELET COUNT 424 10^3/uL (150-450); RED BLOOD COUNT 3.08 10^6/uL (3.72-5.28); RED CELL DISTRIBUTION WIDTH 18.1 % (11.5-14.0); SEGMENTED NEUTROPHILS % (AUTO) 72.2 % (42-78); TOTAL CELLS COUNTED % (AUTO) 100 %; WHITE BLOOD COUNT 14.1 10^3/uL (4.0-10.5)
[2018-08-09 17:13] LABS: ANION GAP 12 (5-19); BLOOD UREA NITROGEN 45 mg/dL (7-20); CARBON DIOXIDE 17 mmol/L (22-30); CHLORIDE 121 mmol/L (98-107); GLUCOSE 153 mg/dL (75-110); POTASSIUM 3.9 mmol/L (3.6-5.0); SODIUM 150.3 mmol/L (137-145)
[2018-08-09] MEDS ORDERED: DEXTROSE 5%-WATER 1000 ML 1,000 ML IV PRN (19:24)
--- NOTE | 2018-08-09 19:27 | PDOC PROGRESS REPORT ---
Subjective Progress Note for:: 08/09/18 Subjective:: She has hypernatremia , She has polymicrobial UTI Reason For Visit: UTI, PNEUMONIA, VENTILATOR DEPENDENT CHRONIC Physical Exam Vital Signs: Temp Pulse Resp BP Pulse Ox 98.7 F 106 H 19 134/68 H 100 08/09/18 15:52 08/09/18 15:52 08/09/18 15:52 08/09/18 15:52 08/09/18 16:22 Pulse Oximeter Continuous Start: 08/07/18 10: 33 Freq: RTQ4 Status: Active Document 08/09/18 16:22 [facility] (Rec: 08/09/18 16:27 [facility] [id number]) Pulse Oximetry Assessment Oxygen Saturation (92-100) 100 Oxygen Delivery Method Mechanical Ventilator Fraction of Inspired Oxygen (FIO2) 28 Equipment Usage Equipment in Use Continuous SpO2 Machine # 2 Intake & Output 08/08/18 08/09/18 08/10/18 06:59 06:59 06:59 Intake Total 842 3038 1671 Output Total 1475 5793 1400 Balance -633 1063 271 Weight 61.3 kg 66.5 kg General appearance: PRESENT: no acute distress Eye exam: PRESENT: PERRLA Respiratory exam: PRESENT: clear to auscultation monica Cardiovascular exam: PRESENT: +S1, +S2 Results Laboratory Results: 08/09/18 16:30 08/09/18 16:30 08/09/18 08/09/18 16:30 16:30 WBC 14.1 H RBC 3.08 L Hgb 8.3 L Hct 25.9 L MCV 84 MCH 26.9 L MCHC 32.0 RDW 18.1 H Plt Count 424 Seg Neutrophils % 72.2 Lymphocytes % 14.7 Monocytes % 9.0 Eosinophils % 3.2 Basophils % 0.9 Absolute Neutrophils 10.2 H Absolute Lymphocytes 2.1 Absolute Monocytes 1.3 Absolute Eosinophils 0.5 Absolute Basophils 0.1 Sodium 150.3 H Potassium 3.9 Chloride 121 H Carbon Dioxide 17 L Anion Gap 12 BUN 45 H Creatinine 1.11 Est GFR ( Amer) 57 L Est GFR (Non-Af Amer) 47 L Glucose 153 H Calcium 10.0 Impressions: Chest X-Ray 08/06/18 13:12 IMPRESSION: 1. Small right infrahilar opacity. Findings may represent pneumonia, in the appropriate clinical setting. 2. Blunting of the left costophrenic angle which may be secondary to atelectasis or trace left pleural effusion. Assessment & Plan - Diagnosis (1) Sepsis Qualifiers: Sepsis type: sepsis due to unspecified organism Qualified Code(s): A41.9 - Sepsis, unspecified organism Is this a current diagnosis for this admission?: Yes (2) Decubitus ulcer, stage 3 Qualifiers: Pressure injury location: sacral region Qualified Code(s): L89.153 - Pressure ulcer of sacral region, stage 3 Is this a current diagnosis for this admission?: Yes (3) Urinary tract infection associated with indwelling urethral catheter Qualifiers: Encounter type: initial encounter Qualified Code(s): T83.511A - Infection and inflammatory reaction due to indwelling urethral catheter, initial encounter ; N39.0 - Urinary tract infection, site not specified; N39.0 - Urinary tract infection, site not specified Is this a current diagnosis for this admission?: Yes (4) Ventilator associated pneumonia Is this a current diagnosis for this admission?: Yes
[2018-08-10] MEDS: ALBUTEROL SULFATE 0.083% NEB 2.5 MG/3 ML AMPUL NEB SCH ×4 (02:18→20:16)
[2018-08-10] MEDS: CIPROFLOXACIN HCL 0.3% OPH SOLN 2.5 ML OU SCH ×6 (02:39→21:56)
[2018-08-10 05:32] LABS: ABSOLUTE EOSINOPHILS # (AUTO) 0.9 10^3/uL (0.0-0.6); ABSOLUTE LYMPHOCYTES (AUTO) 2.9 10^3/uL (0.5-4.7); ABSOLUTE MONOCYTES (AUTO) 1.6 10^3/uL (0.1-1.4); ABSOLUTE NEUT (AUTO) 7.3 10^3/uL (1.7-8.2); BASOPHILS % (AUTO) 0.3 % (0-2); EOSINOPHILS % (AUTO) 6.8 % (0-6); HEMATOCRIT 26.4 % (36.0-47.0); HEMOGLOBIN 8.4 g/dL (12.0-15.5); LYMPHOCYTES % (AUTO) 23.2 % (13-45); MEAN CORPUSCULAR HEMOGLOBIN 26.8 pg (27.0-33.4); MEAN CORPUSCULAR HGB CONC 31.9 g/dL (32.0-36.0); MEAN CORPUSCULAR VOLUME 84 fl (80-97); MONOCYTES % (AUTO) 12.5 % (3-13); PLATELET COUNT 403 10^3/uL (150-450); RED BLOOD COUNT 3.14 10^6/uL (3.72-5.28); RED CELL DISTRIBUTION WIDTH 18.2 % (11.5-14.0); SEGMENTED NEUTROPHILS % (AUTO) 57.2 % (42-78); TOTAL CELLS COUNTED % (AUTO) 100 %; WHITE BLOOD COUNT 12.7 10^3/uL (4.0-10.5)
[2018-08-10] MEDS: IMIPENEM/CILASTATIN SODIUM 500 MG in NORMAL SALINE 100 ML IV SCH ×4 (05:44→23:17)
[2018-08-10] MEDS: LANSOPRAZOLE 30 MG TAB.RAP.DR PO SCH (05:45)
[2018-08-10 05:47] LABS: ALANINE AMINOTRANSFERASE 21 U/L (9-52); ALBUMIN 3.3 g/dL (3.5-5.0); ALKALINE PHOSPHATASE 101 U/L (38-126); ANION GAP 12 (5-19); ASPARTATE AMINO TRANSFERASE 36 U/L (14-36); BILIRUBIN,DIRECT 0.4 mg/dL (0.0-0.4); BILIRUBIN,TOTAL 0.4 mg/dL (0.2-1.3); BLOOD UREA NITROGEN 40 mg/dL (7-20); CALCIUM 10.1 mg/dL (8.4-10.2); CARBON DIOXIDE 18 mmol/L (22-30); CHLORIDE 123 mmol/L (98-107); GLUCOSE 162 mg/dL (75-110); POTASSIUM 4.1 mmol/L (3.6-5.0); SODIUM 152.9 mmol/L (137-145); TOTAL PROTEIN 7.9 g/dL (6.3-8.2)
[2018-08-10] MEDS: INSULIN LISPRO 100 UNIT/ML 3 ML VIAL SUBCUT PRN ×2 (06:34→18:06)
[2018-08-10] MEDS: ENOXAPARIN SODIUM INJ 30 MG/0.3 ML DISP.SYRIN SUBCUT SCH (09:37)
[2018-08-10] MEDS: INSULIN DETEMIR 100 UNIT/ML 3 ML PEN SUBCUT SCH (09:37)
[2018-08-10] MEDS: MULTIVITAMINS W-IRON TABLET, CHEWABLE PEG SCH (09:45)
[2018-08-10] MEDS: ASCORBIC ACID 500 MG TABLET PEG SCH (09:45)
[2018-08-10] MEDS: FUROSEMIDE 40 MG TABLET PEG SCH (09:45)
[2018-08-10] MEDS: ASPIRIN 81 MG TABLET, CHEWABLE PEG SCH (09:45)
[2018-08-10] MEDS: LISINOPRIL 10 MG TABLET PEG SCH (09:45)
[2018-08-10] MEDS: MEMANTINE HCL 10 MG TABLET PEG SCH (09:45)
--- NOTE | 2018-08-10 19:54 | PDOC DISCHARGE SUMMARY ---
General - Admit/Disc Date/PCP Admission Date/Primary Care Provider: 08/06/18 16:16 BAKARI BECKER MD Discharge Date: 08/11/18 - Discharge Diagnosis (1) Sepsis Is this a current diagnosis for this admission?: Yes (2) Decubitus ulcer, stage 3 Is this a current diagnosis for this admission?: Yes (3) Urinary tract infection associated with indwelling urethral catheter Is this a current diagnosis for this admission?: Yes (4) Ventilator associated pneumonia Is this a current diagnosis for this admission?: Yes - Additional Information Home Medications: Ondansetron [Ondansetron Odt] 8 mg PEG BIDP PRN 06/22/18 Ascorbic Acid [C-500] 500 mg PEG DAILY #90 tab.chew 06/26/18 Aspirin [Ecotrin 81 mg EC Tablet] 81 mg PEG DAILY #90 tabec 06/26/18 Insulin Detemir [Levemir Flextouch] 10 unit SQ DAILY #3 insuln.pen 06/26/18 Lisinopril [Prinivil 40 mg Tablet] 40 mg PEG DAILY #90 tablet 06/26/18 Multivitamin [Chewable-Gogo] 1 each PEG DAILY #90 tab.chew 06/26/18 Furosemide [Lasix 40 mg Tablet] 40 mg PEG DAILY 08/06/18 Insulin Aspart [Novolog Insulin (Aspart) 100 unit/mL] 0 unit SUBCUT .SLD SCALE PRN 08/06/18 L. Acidophilus/L.bulgaricus [Lactinex Chewable Tablet] 1 tab PEG DAILY PRN 08/06 Memantine HCl [Namenda 10 mg Tablet] 10 mg PEG DAILY 08/06/18 Ciprofloxacin HCl [Ciloxan 0.3% Oph Soln 2.5 ml] 2 drop OU Q4 08/07/18 Amlodipine Besylate [Norvasc 10 mg Tablet] 10 mg PEG DAILY 08/08/18 History of Present Illness History of Present Illness: BRIANA BRADY is a 82 year old female, She was admitted when she presented with altered mental status secondary to sepsis Hospital Course Hospital Course: She was admitted for the management of sepsis due to pneumonia, sacrum decubitus ulcer, UTI associated with indwelling catheter. She was treated with IV antibiotic, imipenem urine culture grew Enterobacter species of Pseudomonas, she also had hypernatremia. She is chronically debilitated vent dependent, with a tube feed bedbound overall prognosis is very poor. Physical Exam Vital Signs: Temp Pulse Resp BP Pulse Ox 97.4 F 93 18 110/90 H 100 08/10/18 15:31 08/10/18 19:00 08/10/18 15:31 08/10/18 15:31 08/10/18 16:45 Pulse Oximeter Continuous Start: 08/07/18 10: 33 Freq: RTQ4 Status: Active Document 08/10/18 16:45 [facility] (Rec: 08/10/18 17:48 [facility] [id number]) Pulse Oximetry Assessment Oxygen Saturation (92-100) 100 Oxygen Delivery Method Mechanical Ventilator Fraction of Inspired Oxygen (FIO2) 25 Equipment Usage Equipment in Use Continuous SpO2 Machine # N-2 Intake & Output 08/09/18 08/10/18 08/11/18 06:59 06:59 06:59 Intake Total 3038 2350 1850 Output Total 1975 2500 1000 Balance 1063 -150 850 Weight 66.5 kg 64.5 kg General appearance: PRESENT: no acute distress Eye exam: PRESENT: PERRLA Respiratory exam: PRESENT: rhonchi Cardiovascular exam: PRESENT: +S1, +S2 GI/Abdominal exam: PRESENT: soft Neurological exam: PRESENT: altered Results Laboratory Results: 08/10/18 05:06 08/10/18 05:06 08/10/18 08/10/18 05:06 05:06 WBC 12.7 H RBC 3.14 L Hgb 8.4 L Hct 26.4 L MCV 84 MCH 26.8 L MCHC 31.9 L RDW 18.2 H Plt Count 403 Seg Neutrophils % 57.2 Lymphocytes % 23.2 Monocytes % 12.5 Eosinophils % 6.8 H Basophils % 0.3 Absolute Neutrophils 7.3 Absolute Lymphocytes 2.9 Absolute Monocytes 1.6 H Absolute Eosinophils 0.9 H Absolute Basophils 0.0 Sodium 152.9 H Potassium 4.1 Chloride 123 H Carbon Dioxide 18 L Anion Gap 12 BUN 40 H Creatinine 0.97 Est GFR ( Amer) > 60 Est GFR (Non-Af Amer) 55 L Glucose 162 H Calcium 10.1 Total Bilirubin 0.4 AST 36 ALT 21 Alkaline Phosphatase 101 Total Protein 7.9 Albumin 3.3 L 08/08/18 08:35 Stool - Stool - Final 08/08/18 08:35 Stool - Stool Stool Culture - Final NO SALMONELLA, SHIGELLA, CAMPYLOBACTER, OR E.COLI 0157 RECOVERED. NEGATIVE FOR SHIGA TOXINS 1&2. Impressions: Chest X-Ray 08/06/18 13:12 IMPRESSION: 1. Small right infrahilar opacity. Findings may represent pneumonia, in the appropriate clinical setting. 2. Blunting of the left costophrenic angle which may be secondary to atelectasis or trace left pleural effusion. Qualifiers - * PATIENT BEING DISCHARGED WITH ANY OF THE FOLLOWING DIAGNOSIS: No
[2018-08-11] MEDS: INSULIN LISPRO 100 UNIT/ML 3 ML VIAL SUBCUT PRN ×2 (00:19→06:09)
[2018-08-11] MEDS: ALBUTEROL SULFATE 0.083% NEB 2.5 MG/3 ML AMPUL NEB SCH ×2 (02:29→08:25)
[2018-08-11] MEDS: CIPROFLOXACIN HCL 0.3% OPH SOLN 2.5 ML OU SCH ×3 (02:54→10:54)
[2018-08-11] MEDS: IMIPENEM/CILASTATIN SODIUM 500 MG in NORMAL SALINE 100 ML IV SCH (05:27)
[2018-08-11] MEDS ORDERED: LANSOPRAZOLE 30 MG TAB.RAP.DR PO SCH (06:00)
[2018-08-11 06:06] LABS: ALANINE AMINOTRANSFERASE 21 U/L (9-52); ALKALINE PHOSPHATASE 96 U/L (38-126); ANION GAP 12 (5-19); ASPARTATE AMINO TRANSFERASE 28 U/L (14-36); BILIRUBIN,DIRECT 0.2 mg/dL (0.0-0.4); BILIRUBIN,TOTAL 0.2 mg/dL (0.2-1.3); BLOOD UREA NITROGEN 39 mg/dL (7-20); CALCIUM 10.1 mg/dL (8.4-10.2); CARBON DIOXIDE 17 mmol/L (22-30); CHLORIDE 118 mmol/L (98-107); GLUCOSE 176 mg/dL (75-110); POTASSIUM 4.3 mmol/L (3.6-5.0); SODIUM 146.9 mmol/L (137-145); TOTAL PROTEIN 7.1 g/dL (6.3-8.2)
[2018-08-11] MEDS ORDERED: FUROSEMIDE INJ/PF 40 MG/4 ML SDV ONE (09:51)
--- NOTE | 2018-08-11 10:04 | PDOC PROGRESS REPORT ---
Subjective Progress Note for:: 08/11/18 Subjective:: unchanged Reason For Visit: UTI, PNEUMONIA, VENTILATOR DEPENDENT CHRONIC Physical Exam Vital Signs: Temp Pulse Resp BP Pulse Ox 98.8 F 97 20 147/63 H 99 08/11/18 07:28 08/11/18 07:28 08/11/18 07:28 08/11/18 07:28 08/11/18 07:28 Pulse Oximeter Continuous Start: 08/07/18 10: 33 Freq: RTQ4 Status: Active Document 08/11/18 04:15 CBR (Rec: 08/11/18 05:24 CBR [id number]) Pulse Oximetry Assessment Oxygen Saturation (92-100) 100 Oxygen Delivery Method Mechanical Ventilator Fraction of Inspired Oxygen (FIO2) 25 Equipment Usage Equipment in Use Continuous SpO2 Machine # N2 Intake & Output 08/10/18 08/11/18 08/12/18 06:59 06:59 06:59 Intake Total 2350 3179 1000 Output Total 2500 1300 Balance -150 1879 1000 Weight 64.5 kg 66 kg General appearance: PRESENT: no acute distress, disheveled, well-developed, well -nourished Head exam: PRESENT: atraumatic, normocephalic Eye exam: PRESENT: conjunctiva pale, EOMI. ABSENT: nystagmus, periorbital swelling Mouth exam: PRESENT: dry mucosa, neck supple, tongue midline Neck exam: PRESENT: tracheostomy. ABSENT: carotid bruit, JVD, lymphadenopathy, thyromegaly, tracheal deviation Respiratory exam: PRESENT: decreased breath sounds, prolonged expiratory phas, rhonchi, symmetrical, unlabored. ABSENT: retraction, stridor, tachypnea Cardiovascular exam: PRESENT: RRR, +S1, +S2. ABSENT: tachycardia Pulses: PRESENT: normal radial pulses GI/Abdominal exam: PRESENT: soft, other - Feeding tube in place Extremities exam: ABSENT: calf tenderness, clubbing, joint swelling, pedal edema Musculoskeletal exam: ABSENT: ambulatory Neurological exam: PRESENT: altered, awake Psychiatric exam: PRESENT: flat affect Skin exam: PRESENT: dry, warm Results Laboratory Results: 08/10/18 05:06 08/11/18 05:22 08/11/18 05:22 Sodium 146.9 H Potassium 4.3 Chloride 118 H Carbon Dioxide 17 L Anion Gap 12 BUN 39 H Creatinine 0.87 Est GFR ( Amer) > 60 Est GFR (Non-Af Amer) > 60 Glucose 176 H Calcium 10.1 Total Bilirubin 0.2 AST 28 ALT 21 Alkaline Phosphatase 96 Total Protein 7.1 Albumin 3.0 L 08/08/18 08:35 Stool - Stool - Final 08/08/18 08:35 Stool - Stool Stool Culture - Final NO SALMONELLA, SHIGELLA, CAMPYLOBACTER, OR E.COLI 0157 RECOVERED. NEGATIVE FOR SHIGA TOXINS 1&2. Impressions: Chest X-Ray 08/06/18 13:12 IMPRESSION: 1. Small right infrahilar opacity. Findings may represent pneumonia, in the appropriate clinical setting. 2. Blunting of the left costophrenic angle which may be secondary to atelectasis or trace left pleural effusion. Assessment & Plan - Diagnosis (1) Decubitus ulcer, stage 3 Qualifiers: Pressure injury location: sacral region Qualified Code(s): L89.153 - Pressure ulcer of sacral region, stage 3 Is this a current diagnosis for this admission?: Yes Plan: unchanged (2) Sepsis Qualifiers: Sepsis type: sepsis due to unspecified organism Qualified Code(s): A41.9 - Sepsis, unspecified organism Is this a current diagnosis for this admission?: Yes Plan: Improving Labs- All tests 24 hr 08/10/18 05:06 WBC 12.7 H (3) Stage II pressure ulcer of buttock Qualifiers: Laterality: unspecified laterality Qualified Code(s): L89.302 - Pressure ulcer of unspecified buttock, stage 2 Is this a current diagnosis for this admission?: Yes (4) Acute on chronic respiratory failure with hypoxemia Is this a current diagnosis for this admission?: Yes Plan: Chronic ventilatory failure on home ventilator unchanged
--- NOTE | 2018-08-11 10:08 | PDOC PROGRESS REPORT ---
Subjective Progress Note for:: 08/10/18 Subjective:: unchanged Reason For Visit: UTI, PNEUMONIA, VENTILATOR DEPENDENT CHRONIC Physical Exam Vital Signs: Temp Pulse Resp BP Pulse Ox 99.0 F 104 H 16 156/75 H 100 08/10/18 07:21 08/10/18 07:19 08/10/18 07:19 08/10/18 07:19 08/10/18 04:22 Pulse Oximeter Continuous Start: 08/07/18 10: 33 Freq: RTQ4 Status: Active Document 08/10/18 04:22 CMI (Rec: 08/10/18 04:23 CMI [id number]) Pulse Oximetry Assessment Oxygen Saturation (92-100) 100 Oxygen Delivery Method Mechanical Ventilator Fraction of Inspired Oxygen (FIO2) 28 Equipment Usage Equipment in Use Continuous SpO2 Machine # 2 Intake & Output 08/09/18 08/10/18 08/11/18 06:59 06:59 06:59 Intake Total 3038 2350 1100 Output Total 1975 2500 Balance 1063 -150 1100 Weight 66.5 kg 64.5 kg General appearance: PRESENT: no acute distress, disheveled, hard of hearing, well-developed, well-nourished Head exam: PRESENT: atraumatic, normocephalic Eye exam: PRESENT: conjunctiva pale, EOMI. ABSENT: nystagmus, periorbital swelling, scleral icterus Mouth exam: PRESENT: dry mucosa, neck supple, tongue midline Neck exam: PRESENT: tracheostomy. ABSENT: carotid bruit, JVD, lymphadenopathy, tenderness, thyromegaly, tracheal deviation Respiratory exam: PRESENT: decreased breath sounds, prolonged expiratory phas, rales, rhonchi, symmetrical, unlabored. ABSENT: retraction, tachypnea Cardiovascular exam: PRESENT: RRR, +S1, +S2 Pulses: PRESENT: normal radial pulses GI/Abdominal exam: PRESENT: soft, other - Feeding tube in place Extremities exam: ABSENT: calf tenderness, clubbing, joint swelling Musculoskeletal exam: ABSENT: ambulatory, deformity, dislocation Neurological exam: PRESENT: altered, awake Psychiatric exam: PRESENT: flat affect Skin exam: PRESENT: dry, warm Results Laboratory Results: 08/10/18 05:06 08/10/18 05:06 08/09/18 08/09/18 08/10/18 16:30 16:30 05:06 WBC 14.1 H 12.7 H RBC 3.08 L 3.14 L Hgb 8.3 L 8.4 L Hct 25.9 L 26.4 L MCV 84 84 MCH 26.9 L 26.8 L MCHC 32.0 31.9 L RDW 18.1 H 18.2 H Plt Count 424 403 Seg Neutrophils % 72.2 57.2 Lymphocytes % 14.7 23.2 Monocytes % 9.0 12.5 Eosinophils % 3.2 6.8 H Basophils % 0.9 0.3 Absolute Neutrophils 10.2 H 7.3 Absolute Lymphocytes 2.1 2.9 Absolute Monocytes 1.3 1.6 H Absolute Eosinophils 0.5 0.9 H Absolute Basophils 0.1 0.0 Sodium 150.3 H Potassium 3.9 Chloride 121 H Carbon Dioxide 17 L Anion Gap 12 BUN 45 H Creatinine 1.11 Est GFR ( Amer) 57 L Est GFR (Non-Af Amer) 47 L Glucose 153 H Calcium 10.0 Total Bilirubin AST ALT Alkaline Phosphatase Total Protein Albumin 08/10/18 05:06 WBC RBC Hgb Hct MCV MCH MCHC RDW Plt Count Seg Neutrophils % Lymphocytes % Monocytes % Eosinophils % Basophils % Absolute Neutrophils Absolute Lymphocytes Absolute Monocytes Absolute Eosinophils Absolute Basophils Sodium 152.9 H Potassium 4.1 Chloride 123 H Carbon Dioxide 18 L Anion Gap 12 BUN 40 H Creatinine 0.97 Est GFR ( Amer) > 60 Est GFR (Non-Af Amer) 55 L Glucose 162 H Calcium 10.1 Total Bilirubin 0.4 AST 36 ALT 21 Alkaline Phosphatase 101 Total Protein 7.9 Albumin 3.3 L Impressions: Chest X-Ray 08/06/18 13:12 IMPRESSION: 1. Small right infrahilar opacity. Findings may represent pneumonia, in the appropriate clinical setting. 2. Blunting of the left costophrenic angle which may be secondary to atelectasis or trace left pleural effusion. Assessment & Plan - Diagnosis (1) Decubitus ulcer, stage 3 Qualifiers: Pressure injury location: sacral region Qualified Code(s): L89.153 - Pressure ulcer of sacral region, stage 3 Is this a current diagnosis for this admission?: Yes Plan: unchanged (2) Sepsis Qualifiers: Sepsis type: sepsis due to unspecified organism Qualified Code(s): A41.9 - Sepsis, unspecified organism Is this a current diagnosis for this admission?: Yes Plan: Improving Labs- All tests 24 hr 08/10/18 05:06 WBC 12.7 H (3) Chronic respiratory failure with hypoxia and hypercapnia Is this a current diagnosis for this admission?: Yes Plan: unchanged at or near baseline
--- NOTE | 2018-08-11 10:10 | PDOC PROGRESS REPORT ---
Subjective Progress Note for:: 08/09/18 Subjective:: unchanged Reason For Visit: UTI, PNEUMONIA, VENTILATOR DEPENDENT CHRONIC Physical Exam Vital Signs: Temp Pulse Resp BP Pulse Ox 99.0 F 104 H 16 156/75 H 100 08/10/18 07:21 08/10/18 07:19 08/10/18 07:19 08/10/18 07:19 08/10/18 04:22 Pulse Oximeter Continuous Start: 08/07/18 10: 33 Freq: RTQ4 Status: Active Document 08/10/18 04:22 CMI (Rec: 08/10/18 04:23 CMI [id number]) Pulse Oximetry Assessment Oxygen Saturation (92-100) 100 Oxygen Delivery Method Mechanical Ventilator Fraction of Inspired Oxygen (FIO2) 28 Equipment Usage Equipment in Use Continuous SpO2 Machine # 2 Intake & Output 08/09/18 08/10/18 08/11/18 06:59 06:59 06:59 Intake Total 3038 2350 1100 Output Total 1975 2500 Balance 1063 -150 1100 Weight 66.5 kg 64.5 kg General appearance: PRESENT: no acute distress, disheveled, well-developed, well -nourished Head exam: PRESENT: atraumatic, normocephalic Eye exam: PRESENT: conjunctiva pale, EOMI. ABSENT: nystagmus, periorbital swelling, scleral icterus Mouth exam: PRESENT: dry mucosa, neck supple, tongue midline Neck exam: PRESENT: tracheostomy. ABSENT: carotid bruit, JVD, lymphadenopathy, thyromegaly, tracheal deviation Respiratory exam: PRESENT: decreased breath sounds, prolonged expiratory phas, rales, rhonchi, symmetrical, unlabored, wheezes. ABSENT: retraction, stridor, tachypnea Cardiovascular exam: PRESENT: RRR, +S1, +S2 Pulses: PRESENT: normal radial pulses GI/Abdominal exam: PRESENT: soft, other - Feeding tube Gentrourinary exam: PRESENT: indwelling catheter Extremities exam: ABSENT: calf tenderness, clubbing, joint swelling Musculoskeletal exam: ABSENT: ambulatory, deformity, dislocation Neurological exam: PRESENT: altered, awake Psychiatric exam: PRESENT: flat affect Skin exam: PRESENT: dry, warm Results Laboratory Results: 08/10/18 05:06 08/10/18 05:06 08/09/18 08/09/18 08/10/18 16:30 16:30 05:06 WBC 14.1 H 12.7 H RBC 3.08 L 3.14 L Hgb 8.3 L 8.4 L Hct 25.9 L 26.4 L MCV 84 84 MCH 26.9 L 26.8 L MCHC 32.0 31.9 L RDW 18.1 H 18.2 H Plt Count 424 403 Seg Neutrophils % 72.2 57.2 Lymphocytes % 14.7 23.2 Monocytes % 9.0 12.5 Eosinophils % 3.2 6.8 H Basophils % 0.9 0.3 Absolute Neutrophils 10.2 H 7.3 Absolute Lymphocytes 2.1 2.9 Absolute Monocytes 1.3 1.6 H Absolute Eosinophils 0.5 0.9 H Absolute Basophils 0.1 0.0 Sodium 150.3 H Potassium 3.9 Chloride 121 H Carbon Dioxide 17 L Anion Gap 12 BUN 45 H Creatinine 1.11 Est GFR ( Amer) 57 L Est GFR (Non-Af Amer) 47 L Glucose 153 H Calcium 10.0 Total Bilirubin AST ALT Alkaline Phosphatase Total Protein Albumin 08/10/18 05:06 WBC RBC Hgb Hct MCV MCH MCHC RDW Plt Count Seg Neutrophils % Lymphocytes % Monocytes % Eosinophils % Basophils % Absolute Neutrophils Absolute Lymphocytes Absolute Monocytes Absolute Eosinophils Absolute Basophils Sodium 152.9 H Potassium 4.1 Chloride 123 H Carbon Dioxide 18 L Anion Gap 12 BUN 40 H Creatinine 0.97 Est GFR ( Amer) > 60 Est GFR (Non-Af Amer) 55 L Glucose 162 H Calcium 10.1 Total Bilirubin 0.4 AST 36 ALT 21 Alkaline Phosphatase 101 Total Protein 7.9 Albumin 3.3 L Impressions: Chest X-Ray 08/06/18 13:12 IMPRESSION: 1. Small right infrahilar opacity. Findings may represent pneumonia, in the appropriate clinical setting. 2. Blunting of the left costophrenic angle which may be secondary to atelectasis or trace left pleural effusion. Assessment & Plan - Diagnosis (1) Sepsis Qualifiers: Sepsis type: sepsis due to unspecified organism Qualified Code(s): A41.9 - Sepsis, unspecified organism Is this a current diagnosis for this admission?: Yes Plan: Improving Labs- All tests 24 hr 08/09/18 16:30 WBC 14.1 H (2) Stage II pressure ulcer of buttock Qualifiers: Laterality: unspecified laterality Qualified Code(s): L89.302 - Pressure ulcer of unspecified buttock, stage 2 Is this a current diagnosis for this admission?: Yes (3) Acute on chronic respiratory failure with hypoxemia Is this a current diagnosis for this admission?: Yes Plan: Chronic ventilatory failure on home ventilator unchanged
--- NOTE | 2018-08-11 10:14 | PDOC PROGRESS REPORT ---
Subjective Progress Note for:: 08/08/18 Subjective:: unchanged Reason For Visit: UTI, PNEUMONIA, VENTILATOR DEPENDENT CHRONIC Physical Exam Vital Signs: Temp Pulse Resp BP Pulse Ox 99.0 F 104 H 16 156/75 H 100 08/10/18 07:21 08/10/18 07:19 08/10/18 07:19 08/10/18 07:19 08/10/18 04:22 Pulse Oximeter Continuous Start: 08/07/18 10: 33 Freq: RTQ4 Status: Active Document 08/10/18 04:22 CMI (Rec: 08/10/18 04:23 CMI [id number]) Pulse Oximetry Assessment Oxygen Saturation (92-100) 100 Oxygen Delivery Method Mechanical Ventilator Fraction of Inspired Oxygen (FIO2) 28 Equipment Usage Equipment in Use Continuous SpO2 Machine # 2 Intake & Output 08/09/18 08/10/18 08/11/18 06:59 06:59 06:59 Intake Total 3038 2350 1100 Output Total 1975 2500 Balance 1063 -150 1100 Weight 66.5 kg 64.5 kg General appearance: PRESENT: no acute distress, disheveled, well-developed, well -nourished Head exam: PRESENT: atraumatic, normocephalic Eye exam: PRESENT: conjunctiva pale, EOMI. ABSENT: nystagmus, periorbital swelling, scleral icterus Mouth exam: PRESENT: dry mucosa, neck supple, tongue midline Neck exam: PRESENT: tracheostomy. ABSENT: carotid bruit, JVD, lymphadenopathy, thyromegaly, tracheal deviation Respiratory exam: PRESENT: decreased breath sounds, prolonged expiratory phas, rhonchi, symmetrical, unlabored, wheezes. ABSENT: retraction, stridor, tachypnea Cardiovascular exam: PRESENT: RRR, +S1, +S2. ABSENT: tachycardia Pulses: PRESENT: normal radial pulses GI/Abdominal exam: PRESENT: soft, other - Feeding tube Gentrourinary exam: PRESENT: indwelling catheter Extremities exam: PRESENT: pedal edema. ABSENT: calf tenderness, clubbing, joint swelling Musculoskeletal exam: ABSENT: ambulatory, deformity, dislocation Neurological exam: PRESENT: altered, awake Psychiatric exam: PRESENT: flat affect Skin exam: PRESENT: dry, warm Results Laboratory Results: 08/10/18 05:06 08/10/18 05:06 08/09/18 08/09/18 08/10/18 16:30 16:30 05:06 WBC 14.1 H 12.7 H RBC 3.08 L 3.14 L Hgb 8.3 L 8.4 L Hct 25.9 L 26.4 L MCV 84 84 MCH 26.9 L 26.8 L MCHC 32.0 31.9 L RDW 18.1 H 18.2 H Plt Count 424 403 Seg Neutrophils % 72.2 57.2 Lymphocytes % 14.7 23.2 Monocytes % 9.0 12.5 Eosinophils % 3.2 6.8 H Basophils % 0.9 0.3 Absolute Neutrophils 10.2 H 7.3 Absolute Lymphocytes 2.1 2.9 Absolute Monocytes 1.3 1.6 H Absolute Eosinophils 0.5 0.9 H Absolute Basophils 0.1 0.0 Sodium 150.3 H Potassium 3.9 Chloride 121 H Carbon Dioxide 17 L Anion Gap 12 BUN 45 H Creatinine 1.11 Est GFR ( Amer) 57 L Est GFR (Non-Af Amer) 47 L Glucose 153 H Calcium 10.0 Total Bilirubin AST ALT Alkaline Phosphatase Total Protein Albumin 08/10/18 05:06 WBC RBC Hgb Hct MCV MCH MCHC RDW Plt Count Seg Neutrophils % Lymphocytes % Monocytes % Eosinophils % Basophils % Absolute Neutrophils Absolute Lymphocytes Absolute Monocytes Absolute Eosinophils Absolute Basophils Sodium 152.9 H Potassium 4.1 Chloride 123 H Carbon Dioxide 18 L Anion Gap 12 BUN 40 H Creatinine 0.97 Est GFR ( Amer) > 60 Est GFR (Non-Af Amer) 55 L Glucose 162 H Calcium 10.1 Total Bilirubin 0.4 AST 36 ALT 21 Alkaline Phosphatase 101 Total Protein 7.9 Albumin 3.3 L Impressions: Chest X-Ray 08/06/18 13:12 IMPRESSION: 1. Small right infrahilar opacity. Findings may represent pneumonia, in the appropriate clinical setting. 2. Blunting of the left costophrenic angle which may be secondary to atelectasis or trace left pleural effusion. Assessment & Plan - Diagnosis (1) Sepsis Qualifiers: Sepsis type: sepsis due to unspecified organism Qualified Code(s): A41.9 - Sepsis, unspecified organism Is this a current diagnosis for this admission?: Yes Plan: Improving Labs- All tests 24 hr 08/09/18 16:30 WBC 14.1 H (2) Stage II pressure ulcer of buttock Qualifiers: Laterality: unspecified laterality Qualified Code(s): L89.302 - Pressure ulcer of unspecified buttock, stage 2 Is this a current diagnosis for this admission?: Yes Plan: Unchanged (3) Acute and chronic respiratory failure, unspecified whether with hypoxia or hypercapnia Qualifiers: Respiratory failure complication: hypoxia and hypercapnia Qualified Code(s) : J96.21 - Acute and chronic respiratory failure with hypoxia; J96.22 - Acute and chronic respiratory failure with hypercapnia; J96.22 - Acute and chronic respiratory failure with hypercapnia; J96.22 - Acute and chronic respiratory failure with hypercapnia Is this a current diagnosis for this admission?: Yes Plan: Unchanged ventilator dependent
--- NOTE | 2018-08-11 10:21 | PDOC CONSULTATION ---
Consultation Consult Date: 08/07/18 Attending physician:: BAKARI BECKER Consult reason:: pna chronic resp failure sepsis History of Present Illness Admission Date/PCP: 08/06/18 16:16 BAKARI BECKER MD History of Present Illness: BRIANA BRADY is a 82 year old female, who is well-known to [facility] for multiple admissions due to respiratory failure multiple times of May try to wean the patient unsuccessful the patient is also been to an LTAC I have again weaning at that point was unsuccessful therefore she is ventilator dependent with a tracheostomy she presented this time for sepsis and has multiple decubiti as well as a UTI large leukocytosis with left shift Past Medical History Cardiac Medical History: Reports: Congestive Heart Failure, Hyperlipidema, Hypertension, Peripheral Vascular Disease, Pulmonary Embolism Pulmonary Medical History: Reports: Chronic Obstructive Pulmonary Disease (COPD) , Pneumonia - aspiration Endocrine Medical History: Reports: Diabetes Mellitus Type 1, Diabetes Mellitus Type 2 Psychiatric Medical History: Reports: Dementia Denies: Depression Infectious Medical History: Reports: Clostridium Difficile, Methicillin- Resistant Staph Aureus, Vancomycin-Resistant Enterococci Past Surgical History Past Surgical History: Reports: Orthopedic Surgery - Shoulder. 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 Social History Information Source: [facility] Records Smoking Status: Never Smoker Frequency of Alcohol Use: None Hx Recreational Drug Use: No Drugs: None Hx Prescription Drug Abuse: No Do you have pets?: No Family History Parental Family History Reviewed: No Children Family History Reviewed: No Sibling(s) Family History Reviewed.: No Medication/Allergy Home Medications: Ondansetron [Ondansetron Odt] 8 mg PEG BIDP PRN 06/22/18 Ascorbic Acid [C-500] 500 mg PEG DAILY #90 tab.chew 06/26/18 Aspirin [Ecotrin 81 mg EC Tablet] 81 mg PEG DAILY #90 tabec 06/26/18 Insulin Detemir [Levemir Flextouch] 10 unit SQ DAILY #3 insuln.pen 06/26/18 Lisinopril [Prinivil 40 mg Tablet] 40 mg PEG DAILY #90 tablet 06/26/18 Multivitamin [Chewable-Gogo] 1 each PEG DAILY #90 tab.chew 06/26/18 Furosemide [Lasix 40 mg Tablet] 40 mg PEG DAILY 08/06/18 Insulin Aspart [Novolog Insulin (Aspart) 100 unit/mL] 0 unit SUBCUT .SLD SCALE PRN 08/06/18 L. Acidophilus/L.bulgaricus [Lactinex Chewable Tablet] 1 tab PEG DAILY PRN 08/06 Memantine HCl [Namenda 10 mg Tablet] 10 mg PEG DAILY 08/06/18 Ciprofloxacin HCl [Ciloxan 0.3% Oph Soln 2.5 ml] 2 drop OU Q4 08/07/18 Amlodipine Besylate [Norvasc 10 mg Tablet] 10 mg PEG DAILY 08/08/18 Allergies/Adverse Reactions: alprazolam [From Xanax] Allergy (Verified 03/07/18 09:34) iodine [Iodine] Allergy (Verified 03/07/18 09:34) quetiapine fumarate [From Seroquel] Allergy (Verified 03/07/18 09:34) Review of Systems ROS unobtainable: Due to mental status Physical Exam Vital Signs: Temp Pulse Resp BP Pulse Ox 97.5 F 68 14 90/36 L 99 08/07/18 07:43 08/07/18 08:35 08/07/18 08:35 08/07/18 07:43 08/07/18 08:35 Intake & Output 08/06/18 08/07/18 08/08/18 06:59 06:59 06:59 Intake Total 350 Output Total 850 Balance -500 Weight 59.1 kg General appearance: PRESENT: no acute distress, disheveled, well-developed, well -nourished. ABSENT: cooperative Head exam: PRESENT: atraumatic, normocephalic Eye exam: PRESENT: conjunctiva pale, EOMI. ABSENT: nystagmus, periorbital swelling Mouth exam: PRESENT: dry mucosa, neck supple, tongue midline Neck exam: PRESENT: tracheostomy. ABSENT: carotid bruit, JVD, lymphadenopathy, thyromegaly, tracheal deviation Respiratory exam: PRESENT: decreased breath sounds, prolonged expiratory phas, rales, rhonchi, symmetrical, unlabored, wheezes. ABSENT: retraction, stridor, tachypnea Cardiovascular exam: PRESENT: irregular rhythm Pulses: PRESENT: normal radial pulses GI/Abdominal exam: PRESENT: soft, other - Feeding tube Gentrourinary exam: PRESENT: indwelling catheter Extremities exam: PRESENT: pedal edema. ABSENT: calf tenderness, clubbing, joint swelling Skin exam: PRESENT: other - Multiple decubiti sacral, gluteal and pressure ulcer on heel Results Laboratory Results: 08/07/18 05:20 08/07/18 05:20 08/07/18 08/07/18 05:20 05:20 WBC 19.8 H RBC 3.10 L Hgb 8.5 L Hct 25.7 L MCV 83 MCH 27.4 MCHC 33.0 RDW 18.3 H Plt Count 372 Seg Neutrophils % 70.0 Lymphocytes % 20.5 Monocytes % 4.8 Eosinophils % 4.3 Basophils % 0.4 Absolute Neutrophils 13.9 H Absolute Lymphocytes 4.1 Absolute Monocytes 0.9 Absolute Eosinophils 0.9 H Absolute Basophils 0.1 Sodium 140.7 Potassium 4.7 D Chloride 110 H Carbon Dioxide 17 L Anion Gap 14 BUN 95 H Creatinine 1.83 H Est GFR ( Amer) 32 L Est GFR (Non-Af Amer) 26 L Glucose 117 H Calcium 10.0 Total Bilirubin 0.4 AST 38 H ALT 49 Alkaline Phosphatase 95 Total Protein 7.6 Albumin 3.1 L Impressions: Chest X-Ray 08/06/18 13:12 IMPRESSION: 1. Small right infrahilar opacity. Findings may represent pneumonia, in the appropriate clinical setting. 2. Blunting of the left costophrenic angle which may be secondary to atelectasis or trace left pleural effusion. Assessment & Plan - Diagnosis (1) Decubitus ulcer, stage 3 Qualifiers: Pressure injury location: sacral region Qualified Code(s): L89.153 - Pressure ulcer of sacral region, stage 3 Is this a current diagnosis for this admission?: Yes Plan: unchanged (2) Sepsis Qualifiers: Sepsis type: sepsis due to unspecified organism Qualified Code(s): A41.9 - Sepsis, unspecified organism Is this a current diagnosis for this admission?: Yes Plan: Labs- All tests 24 hr 08/06/18 12:53 WBC 32.1 H* (3) Stage II pressure ulcer of buttock Qualifiers: Laterality: unspecified laterality Qualified Code(s): L89.302 - Pressure ulcer of unspecified buttock, stage 2 Is this a current diagnosis for this admission?: Yes Plan: Unchanged (4) Acute and chronic respiratory failure, unspecified whether with hypoxia or hypercapnia Qualifiers: Respiratory failure complication: hypoxia and hypercapnia Qualified Code(s) : J96.21 - Acute and chronic respiratory failure with hypoxia; J96.22 - Acute and chronic respiratory failure with hypercapnia; J96.22 - Acute and chronic respiratory failure with hypercapnia; J96.22 - Acute and chronic respiratory failure with hypercapnia Is this a current diagnosis for this admission?: Yes Plan: Unchanged ventilator dependent (5) CHF (congestive heart failure) Qualifiers: Heart failure type: diastolic Heart failure chronicity: chronic Qualified Code(s): I50.32 - Chronic diastolic (congestive) heart failure Is this a current diagnosis for this admission?: No Plan: by hx (6) 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 Is this a current diagnosis for this admission?: Yes
[2018-08-11] MEDS: MULTIVITAMINS W-IRON TABLET, CHEWABLE PEG SCH (10:50)
[2018-08-11] MEDS: ASPIRIN 81 MG TABLET, CHEWABLE PEG SCH (10:51)
[2018-08-11] MEDS: ENOXAPARIN SODIUM INJ 30 MG/0.3 ML DISP.SYRIN SUBCUT SCH (10:51)
[2018-08-11] MEDS: MEMANTINE HCL 10 MG TABLET PEG SCH (10:51)
[2018-08-11] MEDS: LISINOPRIL 10 MG TABLET PEG SCH (10:52)
[2018-08-11] MEDS: ASCORBIC ACID 500 MG TABLET PEG SCH (10:53)
[2018-08-11] MEDS: FUROSEMIDE 40 MG TABLET PEG SCH (10:56)
[2018-08-11] MEDS: INSULIN DETEMIR 100 UNIT/ML 3 ML PEN SUBCUT SCH (10:56)
[2018-08-11 11:34] VITALS: BP 108/54
== END 2018-08-11 12:10 | disposition home health service (06) | DRG 870 ==
LOC: ER 12:39 → EH 16:16 → 3S 18:12
PROVIDERS: ADMIT Internal Medicine; ATTEND Internal Medicine
PROC: 5A1955Z Respiratory Ventilation, Greater than 96 Consecutive Hours (ICD-10-PCS; principal; 2018-08-06)
PROC: 0HD8XZZ Extraction of Buttock Skin, External Approach (ICD-10-PCS; 2018-08-08)
PROC: 0HD6XZZ Extraction of Back Skin, External Approach (ICD-10-PCS; 2018-08-08)
DX: A41.9 Sepsis, unspecified organism (principal); J18.9 Pneumonia, unspecified organism; L89.153 Pressure ulcer of sacral region, stage 3; G93.41 Metabolic encephalopathy; Z99.11 Dependence on respirator [ventilator] status; T83.511A Infection and inflammatory reaction due to indwelling urethral catheter, initial encounter; N39.0 Urinary tract infection, site not specified; L03.116 Cellulitis of left lower limb; J96.12 Chronic respiratory failure with hypercapnia; J96.11 Chronic respiratory failure with hypoxia; E87.0 Hyperosmolality and hypernatremia; I50.32 Chronic diastolic (congestive) heart failure; R33.9 Retention of urine, unspecified; Z93.0 Tracheostomy status; I11.0 Hypertensive heart disease with heart failure; I73.9 Peripheral vascular disease, unspecified; E78.5 Hyperlipidemia, unspecified; J44.9 Chronic obstructive pulmonary disease, unspecified; E86.0 Dehydration; L89.322 Pressure ulcer of left buttock, stage 2; L89.312 Pressure ulcer of right buttock, stage 2; E11.42 Type 2 diabetes mellitus with diabetic polyneuropathy; F03.90 Unspecified dementia, unspecified severity, without behavioral disturbance, psychotic disturbance, mood disturbance, and anxiety; Z93.1 Gastrostomy status; Z89.511 Acquired absence of right leg below knee; Z86.711 Personal history of pulmonary embolism; Z79.82 Long term (current) use of aspirin; Z79.4 Long term (current) use of insulin; Z79.51 Long term (current) use of inhaled steroids; Z79.899 Other long term (current) drug therapy
CPT/HCPCS: 36415; 71045; 80048; 80053; 81001; 82272; 82550; 82553; 82962; 83605; 83880; 84484; 85025; 87040; 87045; 87086; 87088; 87186; 87205; 87493; 89055; 93005; 93010; 94002; 94003; 94762; 96365; 99291; J0743; J1335; J1650; J1815; J3490; J7030; J7060; S0119

== ENCOUNTER 2018-09-06 10:22 | Inpatient (IN) | payer MEDICARE, MEDICAID ==
--- NOTE | 2018-09-06 11:11 | ER Document Report ---
ED General - General Stated Complaint: FEEDING TUBE DISLODGED Time Seen by Provider: 09/06/18 10:33 Mode of Arrival: Medic Information source: Relative Cannot obtain history due to: Dementia, Other - tracheostomy Notes: Patient presents with family with concerns that her G-tube had come out. Family states that the home health nurse heard the alarm for the tube feeding and went into check the G-tube. Family states that the tube was dislodged and then the home health nurse reinserted into her stomach. Family states that patient is currently being treated for UTI with Bactrim and that there had been some concerns about the Palacios draining properly although the most recent home health nurse got the catheter to start draining without difficulty. Family also states patient is currently being treated for decubitus ulcers. Family states that patient has had increased sputum production and has had required increased frequency of deep suctioning per the home health nurse. Family states that patient has been having daily bowel movements but that her abdomen looks distended. Patient did start vomiting today and has vomited about 5 times so far. TRAVEL OUTSIDE OF THE [place] IN LAST 30 DAYS: No - HPI Onset: This morning Onset/Duration: Gradual Quality of pain: No pain Associated symptoms: Productive cough, Vomiting. denies: Body/muscle aches, Fever Exacerbated by: Denies Relieved by: Denies Similar symptoms previously: Yes Recently seen / treated by doctor: No - Related Data Allergies/Adverse Reactions: alprazolam [From Xanax] Allergy (Verified 03/07/18 09:34) iodine [Iodine] Allergy (Verified 03/07/18 09:34) quetiapine fumarate [From Seroquel] Allergy (Verified 03/07/18 09:34) Past Medical History - General Information source: Relative Cannot obtain history due to: Dementia, Other - Tracheostomy - Social History Smoking Status: Never Smoker Frequency of alcohol use: None Drug Abuse: None Lives with: Family Family History: Reviewed & Not Pertinent - Past Medical History Cardiac Medical History: Reports: Hx Congestive Heart Failure, Hx DVT, Hx Hypercholesterolemia, Hx Hypertension, Hx Peripheral Vascular Disease, Hx Pulmonary Embolism Pulmonary Medical History: Reports: Hx COPD, Hx Pneumonia - aspiration Endocrine Medical History: Reports: Hx Diabetes Mellitus Type 1, Hx Diabetes Mellitus Type 2 Renal/ Medical History: Denies: Hx Peritoneal Dialysis Psychiatric Medical History: Reports: Hx Dementia Denies: Hx Depression Infectious Medical History: Reports: Hx C-Diff, Hx MRSA, Hx VRE Past Surgical History: Reports: Hx Abdominal Surgery - GI tube, Hx Bowel Surgery , Hx Cardiac Surgery - stents, Hx Orthopedic Surgery - Shoulder. 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 - Immunizations Hx Diphtheria, Pertussis, Tetanus Vaccination: Yes Review of Systems - Review of Systems Constitutional: Recent illness - UTI. denies: Fever EENT: No symptoms reported Cardiovascular: No symptoms reported Respiratory: Sputum Gastrointestinal: Abdomen distended, Nausea, Vomiting Genitourinary: No symptoms reported Female Genitourinary: No symptoms reported Musculoskeletal: No symptoms reported Skin: Other - Decubitus ulcer Hematologic/Lymphatic: No symptoms reported Neurological/Psychological: Dementia Physical Exam - Vital signs Vitals: Pulse Ox 100 09/06/18 10:25 - General General appearance: Alert In distress: Mild - HEENT Head: Normocephalic, Atraumatic Eyes: Normal Conjunctiva: Normal Nasal: Normal Mouth/Lips: Caries Mucous membranes: Dry Pharynx: Normal Neck: Normal, Supple. No: Lymphadenopathy - Respiratory Respiratory status: No respiratory distress Chest status: Nontender Breath sounds: Nonproductive cough, Rhonchi Chest palpation: Normal - Cardiovascular Rhythm: Regular Heart sounds: S1 appreciated, S2 appreciated - Abdominal Inspection: Other - Small amount of blood noted around G-tube Distension: No distension Bowel sounds: Normal Tenderness: Nontender Organomegaly: No organomegaly - Back Back: Normal, Nontender. No: CVA tenderness - Extremities General upper extremity: Normal inspection, Normal strength General lower extremity: Other - Right AKA - Neurological [place] Coma Scale Eye Opening: Spontaneous [place] Coma Scale Verbal: Confused - Occasionally [place] Coma Scale Motor: Obeys Commands Martin Coma Scale Total: 14 - Psychological Associated symptoms: Normal affect - Skin Skin Temperature: Warm Skin Moisture: Dry Skin irregularity: Decubitus ulcer - Stage II ulcer to sacral area Course - Re-evaluation Re-evalutation: 09/06/18 10:55 Patient with low sats despite being bagged at 100% oxygen, Dr. Garibay to bedside for evaluation. Patient was deep suctioned and bagged, patient then started to have good returns from suctioning and sats returned 100%. 09/06/18 11:35 Oxygen saturation continues at 94% at 40% oxygen via ventilator. 09/06/18 11:[address] Christensen regarding patient presentation, discussed patient's laboratory test results and concern about acute renal failure. Discussed concerns about increased mucus production and concerned about possible pneumonia and family's concerns about problems with the Palacios catheter in addition to the G-tube. Agrees to admit patient to IMCU unit. 09/06/18 14:00 Patient resting comfortably, patient maintaining oxygen saturation, vital signs stable at this time. Awaiting available bed. 09/06/18 16:40 Patient with available bed, stable for transfer to floor - Vital Signs Vital signs: Temp Pulse Resp BP Pulse Ox 97.7 F 29 H 112/53 L 99 09/06/18 11:51 09/06/18 15:01 09/06/18 15:01 09/06/18 15:01 - Laboratory Result Diagrams: 09/06/18 11:09 09/06/18 11:09 Laboratory results interpreted by me: 09/06/18 09/06/18 09/06/18 11:09 11:09 13:09 WBC 21.4 H RBC 3.33 L Hgb 9.1 L Hct 27.5 L RDW 17.3 H Eosinophils % (Manual) 8 H Abs Neuts (Manual) 9.4 H Abs Lymphs (Manual) 9.2 H Absolute Eos (Manual) 1.7 H Abs Basophils (Manual) 0.4 H Sodium 134.9 L Chloride 94 L BUN 144 H Creatinine 2.64 H Est GFR ( Amer) 21 L Est GFR (Non-Af Amer) 17 L Glucose 146 H Calcium 11.1 H Total Protein 8.8 H Urine Protein 100 H Urine Glucose (UA) 50 H Ur Leukocyte Esterase MODERATE H Urine Ascorbic Acid 40 H Labs- Entire Visit 09/06/18 09/06/18 09/06/18 11:09 11:09 11:09 WBC 21.4 H RBC 3.33 L Hgb 9.1 L Hct 27.5 L MCV 83 MCH 27.2 MCHC 33.0 RDW 17.3 H Plt Count 418 Total Counted 100 Seg Neutrophils % Not Reportable Seg Neuts % (Manual) 44 Lymphocytes % Not Reportable Lymphocytes % (Manual) 41 Atypical Lymphs % 2 Monocytes % Not Reportable Monocytes % (Manual) 3 Eosinophils % Not Reportable Eosinophils % (Manual) 8 H Basophils % Not Reportable Basophils % (Manual) 2 Absolute Neutrophils Not Reportable Abs Neuts (Manual) 9.4 H Absolute Lymphocytes Not Reportable Abs Lymphs (Manual) 9.2 H Absolute Monocytes Not Reportable Abs Monocytes (Manual) 0.6 Absolute Eosinophils Not Reportable Absolute Eos (Manual) 1.7 H Absolute Basophils Not Reportable Abs Basophils (Manual) 0.4 H Toxic Granulation 2+ Platelet Comment ADEQUATE Polychromasia SLIGHT Poikilocytosis 1+ Anisocytosis 1+ Stomatocytes SLIGHT Rouleaux 1+ PT 14.4 INR 1.07 VBG pH VBG pCO2 VBG HCO3 VBG Base Excess Sodium 134.9 L Potassium 4.7 Chloride 94 L Carbon Dioxide 24 Anion Gap 17 BUN 144 H Creatinine 2.64 H Est GFR ( Amer) 21 L Est GFR (Non-Af Amer) 17 L Glucose 146 H Lactic Acid Calcium 11.1 H Total Bilirubin 0.3 Direct Bilirubin 0.3 Neonat Total Bilirubin Not Reportable Neonat Direct Bilirubin Not Reportable Neonat Indirect Bili Not Reportable AST 35 ALT 27 Alkaline Phosphatase 113 Troponin I Total Protein 8.8 H Albumin 4.1 Urine Color Urine Appearance Urine pH Ur Specific [place] Urine Protein Urine Glucose (UA) Urine Ketones Urine Blood Urine Nitrite Urine Bilirubin Urine Urobilinogen Ur Leukocyte Esterase Urine WBC (Auto) Urine RBC (Auto) Urine Bacteria (Auto) Squamous Epi Cells Auto Urine Mucus (Auto) Urine Ascorbic Acid 09/06/18 09/06/18 09/06/18 11:09 11:09 11:09 WBC RBC Hgb Hct MCV MCH MCHC RDW Plt Count Total Counted Seg Neutrophils % Seg Neuts % (Manual) Lymphocytes % Lymphocytes % (Manual) Atypical Lymphs % Monocytes % Monocytes % (Manual) Eosinophils % Eosinophils % (Manual) Basophils % Basophils % (Manual) Absolute Neutrophils Abs Neuts (Manual) Absolute Lymphocytes Abs Lymphs (Manual) Absolute Monocytes Abs Monocytes (Manual) Absolute Eosinophils Absolute Eos (Manual) Absolute Basophils Abs Basophils (Manual) Toxic Granulation Platelet Comment Polychromasia Poikilocytosis Anisocytosis Stomatocytes Rouleaux PT INR VBG pH 7.36 VBG pCO2 44.1 VBG HCO3 24.4 VBG Base Excess -1.1 Sodium Potassium Chloride Carbon Dioxide Anion Gap BUN Creatinine Est GFR ( Amer) Est GFR (Non-Af Amer) Glucose Lactic Acid 0.8 Calcium Total Bilirubin Direct Bilirubin Neonat Total Bilirubin Neonat Direct Bilirubin Neonat Indirect Bili AST ALT Alkaline Phosphatase Troponin I 0.013 Total Protein Albumin Urine Color Urine Appearance Urine pH Ur Specific [place] Urine Protein Urine Glucose (UA) Urine Ketones Urine Blood Urine Nitrite Urine Bilirubin Urine Urobilinogen Ur Leukocyte Esterase Urine WBC (Auto) Urine RBC (Auto) Urine Bacteria (Auto) Squamous Epi Cells Auto Urine Mucus (Auto) Urine Ascorbic Acid 09/06/18 13:09 WBC RBC Hgb Hct MCV MCH MCHC RDW Plt Count Total Counted Seg Neutrophils % Seg Neuts % (Manual) Lymphocytes % Lymphocytes % (Manual) Atypical Lymphs % Monocytes % Monocytes % (Manual) Eosinophils % Eosinophils % (Manual) Basophils % Basophils % (Manual) Absolute Neutrophils Abs Neuts (Manual) Absolute Lymphocytes Abs Lymphs (Manual) Absolute Monocytes Abs Monocytes (Manual) Absolute Eosinophils Absolute Eos (Manual) Absolute Basophils Abs Basophils (Manual) Toxic Granulation Platelet Comment Polychromasia Poikilocytosis Anisocytosis Stomatocytes Rouleaux PT INR VBG pH VBG pCO2 VBG HCO3 VBG Base Excess Sodium Potassium Chloride Carbon Dioxide Anion Gap BUN Creatinine Est GFR ( Amer) Est GFR (Non-Af Amer) Glucose Lactic Acid Calcium Total Bilirubin Direct Bilirubin Neonat Total Bilirubin Neonat Direct Bilirubin Neonat Indirect Bili AST ALT Alkaline Phosphatase Troponin I Total Protein Albumin Urine Color YELLOW Urine Appearance SLIGHTLY-CLOUDY Urine pH 7.0 Ur Specific [place] 1.012 Urine Protein 100 H Urine Glucose (UA) 50 H Urine Ketones NEGATIVE Urine Blood NEGATIVE Urine Nitrite NEGATIVE Urine Bilirubin NEGATIVE Urine Urobilinogen NEGATIVE Ur Leukocyte Esterase MODERATE H Urine WBC (Auto) 23 Urine RBC (Auto) 0 Urine Bacteria (Auto) TRACE Squamous Epi Cells Auto <1 Urine Mucus (Auto) RARE Urine Ascorbic Acid 40 H - Diagnostic Test Radiology reviewed: Image reviewed, Reports reviewed Discharge - Discharge Clinical Impression: Ventilator associated pneumonia Elevated WBC count Qualifiers: Leukocytosis type: unspecified Qualified Code(s): D72.829 - Elevated white blood cell count, unspecified Stage II pressure ulcer of buttock Qualifiers: Laterality: unspecified laterality Qualified Code(s): L89.302 - Pressure ulcer of unspecified buttock, stage 2 Acute renal failure Qualifiers: Acute renal failure type: unspecified Qualified Code(s): N17.9 - Acute kidney failure, unspecified Condition: Fair Disposition: ADMITTED INPATIENT Admitting Provider: [place] [facility] Admitted: [facility]
[2018-09-06 11:22] LABS: VENOUS BLOOD BASE EXCESS -1.1 mmol/L; VENOUS BLOOD HCO3 24.4 mmol/L (20-32); VENOUS BLOOD PCO2 44.1 mmHg (35-63); VENOUS BLOOD PH 7.36 (7.30-7.42)
[2018-09-06 11:23] LABS: HEMATOCRIT 27.5 % (36.0-47.0); HEMOGLOBIN 9.1 g/dL (12.0-15.5); MEAN CORPUSCULAR HEMOGLOBIN 27.2 pg (27.0-33.4); MEAN CORPUSCULAR VOLUME 83 fl (80-97); PLATELET COUNT 418 10^3/uL (150-450); RED BLOOD COUNT 3.33 10^6/uL (3.72-5.28); RED CELL DISTRIBUTION WIDTH 17.3 % (11.5-14.0); WHITE BLOOD COUNT 21.4 10^3/uL (4.0-10.5)
[2018-09-06] MEDS ORDERED: ONDANSETRON HCL INJ/PF 4 MG/2 ML SDV IV ONE (11:35)
[2018-09-06 11:41] LABS: ALANINE AMINOTRANSFERASE 27 U/L (9-52); ALBUMIN 4.1 g/dL (3.5-5.0); ALKALINE PHOSPHATASE 113 U/L (38-126); ANION GAP 17 (5-19); ASPARTATE AMINO TRANSFERASE 35 U/L (14-36); BILIRUBIN,DIRECT 0.3 mg/dL (0.0-0.4); BILIRUBIN,TOTAL 0.3 mg/dL (0.2-1.3); CALCIUM 11.1 mg/dL (8.4-10.2); CARBON DIOXIDE 24 mmol/L (22-30); CHLORIDE 94 mmol/L (98-107); GLUCOSE 146 mg/dL (75-110); POTASSIUM 4.7 mmol/L (3.6-5.0); SODIUM 134.9 mmol/L (137-145); TOTAL PROTEIN 8.8 g/dL (6.3-8.2)
[2018-09-06 11:45] LABS: INTERNATIONAL RATION (INR) 1.07; PROTHROMBIN TIME 14.4 SEC (11.4-15.4)
--- NOTE | 2018-09-06 11:47 | RADIOLOGY REPORT (SQ) ---
EXAM DESCRIPTION: CHEST SINGLE VIEW COMPLETED DATE/TIME: 09/06/2018 11:29 am REASON FOR STUDY: vent, low sats, vomiting COMPARISON: 08/06/2018 EXAM PARAMETERS: NUMBER OF VIEWS: One view. TECHNIQUE: Single frontal radiographic view of the chest acquired. RADIATION DOSE: NA LIMITATIONS: None. FINDINGS: LUNGS AND PLEURA: There is some minimal increased density in the right perihilar region wh ich could represent a developing infiltrate. Remaining lung collins are clear. No pleural effusions are identified. MEDIASTINUM AND HILAR STRUCTURES: There is some prominence of the right hilum. HEART AND VASCULAR STRUCTURES: Heart normal in size. Normal vasculature. BONES: No acute findings. HARDWARE: Tracheostomy tube is unchanged in position. OTHER: No other significant finding. IMPRESSION: There is some prominence of the right hilum. Some minimal increased density is identifi ed in the right perihilar region which could represent a developing infiltrate. Remaining lung field s are clear TECHNICAL DOCUMENTATION: JOB ID: [id number] [employer]- All Rights Reserved Reading location - IP/workstation name: [email or web address]-[email or web address]
[2018-09-06 11:48] LABS: BLOOD UREA NITROGEN 144 mg/dL (7-20)
--- NOTE | 2018-09-06 11:50 | RADIOLOGY REPORT (SQ) ---
EXAM DESCRIPTION: ABDOMEN 2 VIEWS COMPLETED DATE/TIME: 09/06/2018 11:29 am REASON FOR STUDY: abd distention, vomiting COMPARISON: KUB 05/05/2017 CT abdomen pelvis 03/07/2018 NUMBER OF VIEWS: Two views. TECHNIQUE: Supine and upright radiographic images of the abdomen acquired. LIMITATIONS: None. FINDINGS: FREE AIR: Lung bases are clear. No gross free subdiaphragmatic air. LUNG BASES: Clear. BOWEL GAS PATTERN: Large amount of stool in the ascending and transverse colon. Mild gaseous distent ion of the stomach and sigmoid colon. No dilated small bowel loops worrisome for small bowel obstruc tion. CALCIFICATIONS: No suspicious calcifications. SOFT TISSUES: No gross mass or suggestion of organomegaly. HARDWARE: Left upper quadrant gastrostomy tube. Bilateral iliac artery stents. Left hip replacement BONES: No acute fracture. No worrisome bone lesions. OTHER: No other significant finding. IMPRESSION: Large amount of stool in the ascending and transverse colon TECHNICAL DOCUMENTATION: JOB ID: [id number] [employer]- All Rights Reserved Reading location - IP/workstation name: [email or web address]
[2018-09-06 11:57] LABS: ABSOLUTE LYMPHOCYTES# (MANUAL) 9.2 10^3/uL (0.5-4.7); ABSOLUTE MONOCYTES # (MANUAL) 0.6 10^3/uL (0.1-1.4); ABSOLUTE NEUTROPHILS# (MANUAL) 9.4 10^3/uL (1.7-8.2); BASOPHILS % (MANUAL) 2 % (0-2); EOSINOPHILS % (MANUAL) 8 % (0-6); LYMPHOCYTES % (MANUAL) 41 % (13-45); MONOCYTES % (MANUAL) 3 % (3-13); SEGMENTED NEUTROPHILS % (MAN) 44 % (42-78); TOTAL CELLS COUNTED 100
[2018-09-06 11:59] LABS: ANISOCYTOSIS 1+; PLATELET COMMENT ADEQUATE; POIKILOCYTOSIS 1+; POLYCHROMASIA SLIGHT; ROULEAUX 1+; STOMATOCYTES SLIGHT; TOXIC GRANULATION 2+
[2018-09-06] MEDS ORDERED: IPRATROPIUM/ALBUTEROL 0.5-2.5 MG/3 ML AMPUL NEB ONE (12:01)
[2018-09-06] MEDS ORDERED: CEFEPIME 1 GM/D5W RTU 1 GM/50 ML RTUPB IV ONE (12:02)
[2018-09-06] MEDS ORDERED: VANCOMYCIN HCL INJ 1000 MG VIAL IV ONE (12:15)
[2018-09-06] MEDS ORDERED: NORMAL SALINE 500 ML IV ONE (12:18)
[2018-09-06 13:32] LABS: APPEARANCE,URINE SLIGHTLY-CLOUDY; BILIRUBIN,URINE NEGATIVE (NEGATIVE); COLOR,URINE YELLOW; GLUCOSE, URINE 50 mg/dL (NEGATIVE); KETONES,URINE NEGATIVE (NEGATIVE); LEUKOCYTE ESTERASE,URINE MODERATE (NEGATIVE); NITRITE,URINE NEGATIVE (NEGATIVE); PROTEIN,URINE 100 mg/dL (NEGATIVE); URINE SPECIFIC GRAVITY 1.012; UROBILINOGEN,URINE NEGATIVE mg/dL (<2.0)
[2018-09-06] MEDS ORDERED: NORMAL SALINE 1000 ML 1,000 ML IV PRN (16:00)
[2018-09-06] MEDS ORDERED: ALBUTEROL SULFATE 0.083% NEB 2.5 MG/3 ML AMPUL NEB ONE (16:04)
[2018-09-06] MEDS ORDERED: ALBUTEROL SULFATE 0.083% NEB 2.5 MG/3 ML AMPUL NEB PRN (20:04)
[2018-09-06] MEDS ORDERED: SULFAMETHOXAZOLE/TRIMETHOPRIM 800-160 MG TABLET PEG SCH (20:15)
--- NOTE | 2018-09-06 20:21 | PDOC H&P ---
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 I saw her in the office couple of days ago ,she was prescribed Bactrim for UTI the urine was very cloudy thick that suggest UTI and prescribed bactrim based on previous isolates and also sensitivity pattern to antibiotic. She also had blood drawn the serum creatinine was 1.8 when I last saw in the office the serum creatinine that was done in the ER was 2.6. she is probably dehydrated she is brought in essentially to be treated for dehydration The chest x-ray that was done is not overtly showing pneumonia it is better than previous chest x-ray Past Medical History Cardiac Medical History: Reports: Congestive Heart Failure, DVT, Hyperlipidema, Hypertension, Peripheral Vascular Disease, Pulmonary Embolism Pulmonary Medical History: Reports: Chronic Obstructive Pulmonary Disease (COPD) , Pneumonia - aspiration Endocrine Medical History: Reports: Diabetes Mellitus Type 2 Psychiatric Medical History: Reports: Dementia Infectious Medical History: Reports: Clostridium Difficile, Methicillin- Resistant Staph Aureus, Vancomycin-Resistant Enterococci Past Surgical History Past Surgical History: Reports: Orthopedic Surgery - Shoulder. 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 Social History Lives with: Family Smoking Status: Never Smoker Frequency of Alcohol Use: None Hx Recreational Drug Use: No Drugs: None Hx Prescription Drug Abuse: No Family History Family History: Reviewed & Not Pertinent Parental Family History Reviewed: Yes Children Family History Reviewed: Yes Sibling(s) Family History Reviewed.: Yes Medication/Allergy Home Medications: Albuterol Sulfate [Ventolin 0.083% Neb 2.5 mg/3 mL Ampul] 2.5 mg NEB [id number] PRN 09/06/18 Amlodipine Besylate [Norvasc 10 mg Tablet] 10 mg PEG DAILY 09/06/18 Ascorbic Acid [Vitamin C 500 mg Tablet] 500 mg PEG DAILY 09/06/18 Aspirin [Adult Low Dose Aspirin EC] 81 mg PEG DAILY 09/06/18 Ciprofloxacin HCl [Ciloxan 0.3% Oph Soln 2.5 ml] 2 drop OU Q4H 09/06/18 Furosemide [Lasix 40 mg Tablet] 40 mg PEG BID 09/06/18 Insulin Aspart [Novolog Flexpen] 0 units SQ .PERSLIDINGSCALE 09/06/18 Insulin Detemir [Levemir Insulin 100 units/mL] 10 units SQ DAILY 09/06/18 Lisinopril [Zestril] 40 mg PEG DAILY 09/06/18 Nystatin [Mycostatin Topical Powder 15 gm] 1 applic TP BID 09/06/18 Sulfamethoxazole/Trimethoprim [Bactrim Ds Tablet] 1 tab PEG [id number] 09/06/18 Allergies/Adverse Reactions: alprazolam [From Xanax] Allergy (Verified 03/07/18 09:34) iodine [Iodine] Allergy (Verified 03/07/18 09:34) quetiapine fumarate [From Seroquel] Allergy (Verified 03/07/18 09:34) Review of Systems ROS unobtainable: Due to mental status Physical Exam Vital Signs: Temp Pulse Resp BP Pulse Ox 97.7 F 21 H 120/51 L 97 09/06/18 11:51 09/06/18 18:01 09/06/18 18:01 09/06/18 18:01 Intake & Output 09/05/18 09/06/18 09/07/18 06:59 06:59 06:59 Intake Total 500 Balance 500 Weight 57.7 kg General appearance: PRESENT: no acute distress Mouth exam: PRESENT: dry mucosa Neck exam: PRESENT: tracheostomy Respiratory exam: PRESENT: clear to auscultation monica Cardiovascular exam: PRESENT: +S1, +S2 GI/Abdominal exam: PRESENT: soft Neurological exam: PRESENT: alert Results Impressions: Chest X-Ray 09/06/18 10:55 IMPRESSION: There is some prominence of the right hilum. Some minimal increased density is identified in the right perihilar region which could represent a developing infiltrate. Remaining lung collins are clear Abdomen X-Ray 09/06/18 11:10 IMPRESSION: Large amount of stool in the ascending and transverse colon Assessment & Plan - Diagnosis (1) Urinary tract infection associated with indwelling urethral catheter Qualifiers: Encounter type: initial encounter Qualified Code(s): T83.511A - Infection and inflammatory reaction due to indwelling urethral catheter, initial encounter ; N39.0 - Urinary tract infection, site not specified; N39.0 - Urinary tract infection, site not specified Is this a current diagnosis for this admission?: Yes Plan: Patient is primary reason for emergency room visit was to have the feeding tube change, patient is chronically debilitated with chronic colonization of the urinary system due to indwelling Palacios catheter, she has leukocytosis which could be from any reason including dehydration, UTI, she will continue Bactrim that was prescribed outpatient (2) Dehydration Is this a current diagnosis for this admission?: Yes (3) Acute kidney injury Is this a current diagnosis for this admission?: Yes Plan: This is probably from prerenal acute kidney injury, she is chronically on diuretic furosemide, she will be given IV fluid
[2018-09-06] MEDS ORDERED: ASPIRIN 81 MG TABLET, ENT COATED PO SCH (21:00)
--- NOTE | 2018-09-06 21:07 | EKG REPORT ---
SEVERITY:- ABNORMAL ECG - SINUS RHYTHM FIRST DEGREE AV BLOCK LEFT BUNDLE BRANCH BLOCK : Confirmed by: Ketty Mendoza MD 06-Sep-2018 21:06:32
[2018-09-06] MEDS: NORMAL SALINE 1000 ML 1,000 ML IV PRN (21:30)
--- NOTE | 2018-09-06 22:44 | RADIOLOGY REPORT (SQ) ---
EXAM DESCRIPTION: XR ABDOMEN 1 VIEW (KUB) COMPLETED DATE/TME: 09/06/2018 00:00 CLINICAL HISTORY: 82 years, Female, G tube placement COMPARISON: 2 views of the abdomen from earlier on today's date NUMBER OF VIEWS: 1 TECHNIQUE: AP abdomen LIMITATIONS: None. FINDINGS: Feeding tube projects over the left upper quadrant. The bowel gas pattern is nonspecific. Evaluation for free air limited on a supine view. Catheter projects over the pelvis. Left hip prosthesis. Osteopenia. Biiliac endovascular stent grafts. Large amount of stool in the colon. Vascular calcifications. IMPRESSION: Feeding tube projects over the left upper quadrant, likely in the stomach. Abundant stool in the colon. copyright 2010 [email or web address]- All Rights Reserved
[2018-09-06] MEDS: ASCORBIC ACID 500 MG TABLET PEG SCH (23:32)
[2018-09-06] MEDS: FUROSEMIDE 40 MG TABLET PEG SCH (23:33)
[2018-09-06] MEDS: AMLODIPINE BESYLATE 10 MG TABLET PEG SCH (23:47)
[2018-09-06] MEDS: NYSTATIN TOPICAL POWDER 15 GM TP SCH (23:48)
[2018-09-07] MEDS: AMLODIPINE BESYLATE 10 MG TABLET PEG SCH (09:00)
[2018-09-07] MEDS ORDERED: ASPIRIN 81 MG TABLET, CHEWABLE PO SCH (10:00)
[2018-09-07] MEDS: ASCORBIC ACID 500 MG TABLET PEG SCH (10:30)
[2018-09-07] MEDS: FUROSEMIDE 40 MG TABLET PEG SCH ×2 (10:30→17:08)
[2018-09-07] MEDS: LISINOPRIL 10 MG TABLET PEG SCH (10:30)
[2018-09-07] MEDS: NYSTATIN TOPICAL POWDER 15 GM TP SCH ×2 (10:31→17:08)
[2018-09-07] MEDS: INSULIN DETEMIR 100 UNIT/ML 3 ML PEN SUBCUT SCH (10:31)
[2018-09-07] MEDS: NORMAL SALINE 1000 ML 1,000 ML IV PRN (10:56)
[2018-09-07 19:43] LABS: ABSOLUTE BASOPHILS # (AUTO) 0.1 10^3/uL (0.0-0.2); ABSOLUTE EOSINOPHILS # (AUTO) 1.1 10^3/uL (0.0-0.6); ABSOLUTE LYMPHOCYTES (AUTO) 4.1 10^3/uL (0.5-4.7); ABSOLUTE MONOCYTES (AUTO) 1.3 10^3/uL (0.1-1.4); ABSOLUTE NEUT (AUTO) 6.5 10^3/uL (1.7-8.2); BASOPHILS % (AUTO) 1.1 % (0-2); EOSINOPHILS % (AUTO) 8.7 % (0-6); HEMATOCRIT 24.7 % (36.0-47.0); HEMOGLOBIN 8.1 g/dL (12.0-15.5); LYMPHOCYTES % (AUTO) 31.5 % (13-45); MEAN CORPUSCULAR HEMOGLOBIN 27.5 pg (27.0-33.4); MEAN CORPUSCULAR VOLUME 84 fl (80-97); MONOCYTES % (AUTO) 9.7 % (3-13); PLATELET COUNT 350 10^3/uL (150-450); RED BLOOD COUNT 2.96 10^6/uL (3.72-5.28); RED CELL DISTRIBUTION WIDTH 17.7 % (11.5-14.0); TOTAL CELLS COUNTED % (AUTO) 100 %; WHITE BLOOD COUNT 13.2 10^3/uL (4.0-10.5)
[2018-09-07 20:05] LABS: ALANINE AMINOTRANSFERASE 27 U/L (9-52); ALBUMIN 3.7 g/dL (3.5-5.0); ALKALINE PHOSPHATASE 94 U/L (38-126); ANION GAP 19 (5-19); ASPARTATE AMINO TRANSFERASE 31 U/L (14-36); BILIRUBIN,DIRECT 0.2 mg/dL (0.0-0.4); BILIRUBIN,TOTAL 0.2 mg/dL (0.2-1.3); BLOOD UREA NITROGEN 118 mg/dL (7-20); CALCIUM 10.1 mg/dL (8.4-10.2); CARBON DIOXIDE 19 mmol/L (22-30); CHLORIDE 103 mmol/L (98-107); GLUCOSE 107 mg/dL (75-110); POTASSIUM 4.3 mmol/L (3.6-5.0); SODIUM 141.1 mmol/L (137-145); TOTAL PROTEIN 7.8 g/dL (6.3-8.2)
[2018-09-07] MEDS: CIPROFLOXACIN HCL 0.3% OPH SOLN 2.5 ML OU SCH ×2 (20:07→20:08)
--- NOTE | 2018-09-07 20:50 | PDOC PROGRESS REPORT ---
Subjective Progress Note for:: 09/07/18 Subjective:: Patient was seen by the bedside, with hydration, the white blood cell count is near normal, the kidney function is improved with hydration, blood culture is growing gram positive cocci in clusters most likely is contamination. Reason For Visit: BACTEREMIA, UTI Physical Exam Vital Signs: Temp Pulse Resp BP Pulse Ox 98.4 F 81 18 128/57 H 100 09/07/18 19:16 09/07/18 19:16 09/07/18 19:16 09/07/18 19:16 09/07/18 19:16 Intake & Output 09/06/18 09/07/18 09/08/18 06:59 06:59 06:59 Intake Total 1692 2065 Output Total 700 1500 Balance 992 565 Weight 61.9 kg General appearance: PRESENT: no acute distress Eye exam: PRESENT: PERRLA Respiratory exam: PRESENT: clear to auscultation monica Cardiovascular exam: PRESENT: +S1, +S2 GI/Abdominal exam: PRESENT: soft Neurological exam: PRESENT: alert Results Laboratory Results: 09/07/18 18:58 09/07/18 18:58 09/07/18 09/07/18 18:58 18:58 WBC 13.2 H RBC 2.96 L Hgb 8.1 L Hct 24.7 L MCV 84 MCH 27.5 MCHC 33.0 RDW 17.7 H Plt Count 350 Seg Neutrophils % 49.0 Lymphocytes % 31.5 Monocytes % 9.7 Eosinophils % 8.7 H Basophils % 1.1 Absolute Neutrophils 6.5 Absolute Lymphocytes 4.1 Absolute Monocytes 1.3 Absolute Eosinophils 1.1 H Absolute Basophils 0.1 Sodium 141.1 Potassium 4.3 Chloride 103 Carbon Dioxide 19 L Anion Gap 19 BUN 118 H Creatinine 2.33 H Est GFR ( Amer) 24 L Est GFR (Non-Af Amer) 20 L Glucose 107 Calcium 10.1 Total Bilirubin 0.2 AST 31 ALT 27 Alkaline Phosphatase 94 Total Protein 7.8 Albumin 3.7 Impressions: KUB X-Ray 09/06/18 00:00 IMPRESSION: Feeding tube projects over the left upper quadrant, likely in the stomach. Abundant stool in the colon. copyright 2011 [employer]- All Rights Reserved Chest X-Ray 09/06/18 10:55 IMPRESSION: There is some prominence of the right hilum. Some minimal increased density is identified in the right perihilar region which could represent a developing infiltrate. Remaining lung collins are clear Abdomen X-Ray 09/06/18 11:10 IMPRESSION: Large amount of stool in the ascending and transverse colon Assessment & Plan - Diagnosis (1) Urinary tract infection associated with indwelling urethral catheter Qualifiers: Encounter type: initial encounter Qualified Code(s): T83.511A - Infection and inflammatory reaction due to indwelling urethral catheter, initial encounter ; N39.0 - Urinary tract infection, site not specified; N39.0 - Urinary tract infection, site not specified Is this a current diagnosis for this admission?: Yes (2) Dehydration Is this a current diagnosis for this admission?: Yes (3) Acute kidney injury Is this a current diagnosis for this admission?: Yes
--- NOTE | 2018-09-07 20:52 | PDOC PROGRESS REPORT ---
Subjective Progress Note for:: 09/07/18 Reason For Visit: BACTEREMIA, UTI Physical Exam Vital Signs: Temp Pulse Resp BP Pulse Ox 98.4 F 81 18 128/57 H 100 09/07/18 19:16 09/07/18 19:16 09/07/18 19:16 09/07/18 19:16 09/07/18 19:16 Intake & Output 09/06/18 09/07/18 09/08/18 06:59 06:59 06:59 Intake Total 1692 2065 Output Total 700 1500 Balance 992 565 Weight 61.9 kg Results Laboratory Results: 09/07/18 18:58 09/07/18 18:58 09/07/18 09/07/18 18:58 18:58 WBC 13.2 H RBC 2.96 L Hgb 8.1 L Hct 24.7 L MCV 84 MCH 27.5 MCHC 33.0 RDW 17.7 H Plt Count 350 Seg Neutrophils % 49.0 Lymphocytes % 31.5 Monocytes % 9.7 Eosinophils % 8.7 H Basophils % 1.1 Absolute Neutrophils 6.5 Absolute Lymphocytes 4.1 Absolute Monocytes 1.3 Absolute Eosinophils 1.1 H Absolute Basophils 0.1 Sodium 141.1 Potassium 4.3 Chloride 103 Carbon Dioxide 19 L Anion Gap 19 BUN 118 H Creatinine 2.33 H Est GFR ( Amer) 24 L Est GFR (Non-Af Amer) 20 L Glucose 107 Calcium 10.1 Total Bilirubin 0.2 AST 31 ALT 27 Alkaline Phosphatase 94 Total Protein 7.8 Albumin 3.7 Impressions: KUB X-Ray 09/06/18 00:00 IMPRESSION: Feeding tube projects over the left upper quadrant, likely in the stomach. Abundant stool in the colon. copyright 2011 [employer]- All Rights Reserved Chest X-Ray 09/06/18 10:55 IMPRESSION: There is some prominence of the right hilum. Some minimal increased density is identified in the right perihilar region which could represent a developing infiltrate. Remaining lung collins are clear Abdomen X-Ray 09/06/18 11:10 IMPRESSION: Large amount of stool in the ascending and transverse colon Assessment & Plan - Diagnosis (1) Urinary tract infection associated with indwelling urethral catheter Qualifiers: Encounter type: initial encounter Qualified Code(s): T83.511A - Infection and inflammatory reaction due to indwelling urethral catheter, initial encounter ; N39.0 - Urinary tract infection, site not specified; N39.0 - Urinary tract infection, site not specified Is this a current diagnosis for this admission?: Yes (2) Dehydration Is this a current diagnosis for this admission?: Yes (3) Acute kidney injury Is this a current diagnosis for this admission?: Yes
--- NOTE | 2018-09-07 20:53 | PDOC DISCHARGE SUMMARY ---
General - Admit/Disc Date/PCP Admission Date/Primary Care Provider: 09/06/18 13:20 BAKARI BECKER MD Discharge Date: 09/08/18 - Discharge Diagnosis (1) Urinary tract infection associated with indwelling urethral catheter Is this a current diagnosis for this admission?: Yes (2) Dehydration Is this a current diagnosis for this admission?: Yes (3) Acute kidney injury Is this a current diagnosis for this admission?: Yes - Additional Information Home Medications: Amlodipine Besylate [Norvasc 10 mg Tablet] 10 mg PEG DAILY 09/08/18 Ascorbic Acid [Vitamin C 500 mg Tablet] 500 mg PEG DAILY 09/08/18 Aspirin [Ecotrin 81 mg EC Tablet] 81 mg PEG DAILY 09/08/18 Furosemide [Lasix 40 mg Tablet] 40 mg PEG DAILY 09/08/18 Insulin Aspart [Novolog Flexpen] 0 units SQ .SLIDING SCALE 09/08/18 Insulin Detemir [Levemir Insulin 100 units/mL] 10 units SQ DAILY 09/08/18 Lisinopril [Prinivil 40 mg Tablet] 40 mg PEG DAILY 09/08/18 Memantine HCl [Namenda 10 mg Tablet] 10 mg PEG DAILY 09/08/18 Multivitamin [Tab-A-Gogo (Multiple Vitamin) Tablet] 1 tab PEG DAILY 09/08/18 Nystatin [Mycostatin 400772 Unit/1 ml Susp 60 ml Btl] 1 applic TOP BID 09/08/18 Ondansetron HCl [Zofran 8 mg Tablet] 8 mg PEG Q8HP PRN 09/08/18 History of Present Illness History of Present Illness: BRIANA BRADY is a 82 year old female, She has a history of multiple comorbid conditions including chronic debilitation ,chronic respiratory failure , vent dependent chronic indwelling Palacios catheter with 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 I saw her in the office couple of days ago ,she was prescribed Bactrim for UTI the urine was very cloudy thick that suggest UTI and prescribed bactrim based on previous isolates and also sensitivity pattern to antibiotic. She also had blood drawn the serum creatinine was 1.8 when I last saw in the office the serum creatinine that was done in the ER was 2.6. she is probably dehydrated she is brought in essentially to be treated for dehydration The chest x-ray that was done is not overtly showing pneumonia it is better than previous chest x-ray Hospital Course Hospital Course: She was admitted into the hospital for the management of acute kidney injury, dehydration, UTI associated with chronic indwelling Palacios catheter, she was continue on Bactrim that she was on outpatient ,treated with IV fluid there is an improvement in the kidney function Physical Exam Vital Signs: Temp Pulse Resp BP Pulse Ox 98.4 F 81 18 128/57 H 100 09/07/18 19:16 09/07/18 19:16 09/07/18 19:16 09/07/18 19:16 09/07/18 19:16 Intake & Output 09/06/18 09/07/18 09/08/18 06:59 06:59 06:59 Intake Total 1692 2065 Output Total 700 1500 Balance 992 565 Weight 61.9 kg General appearance: PRESENT: no acute distress Eye exam: PRESENT: PERRLA Respiratory exam: PRESENT: clear to auscultation monica Cardiovascular exam: PRESENT: +S1, +S2 GI/Abdominal exam: PRESENT: soft Neurological exam: PRESENT: alert Results Laboratory Results: 09/07/18 18:58 09/07/18 18:58 09/07/18 09/07/18 18:58 18:58 WBC 13.2 H RBC 2.96 L Hgb 8.1 L Hct 24.7 L MCV 84 MCH 27.5 MCHC 33.0 RDW 17.7 H Plt Count 350 Seg Neutrophils % 49.0 Lymphocytes % 31.5 Monocytes % 9.7 Eosinophils % 8.7 H Basophils % 1.1 Absolute Neutrophils 6.5 Absolute Lymphocytes 4.1 Absolute Monocytes 1.3 Absolute Eosinophils 1.1 H Absolute Basophils 0.1 Sodium 141.1 Potassium 4.3 Chloride 103 Carbon Dioxide 19 L Anion Gap 19 BUN 118 H Creatinine 2.33 H Est GFR ( Amer) 24 L Est GFR (Non-Af Amer) 20 L Glucose 107 Calcium 10.1 Total Bilirubin 0.2 AST 31 ALT 27 Alkaline Phosphatase 94 Total Protein 7.8 Albumin 3.7 Impressions: KUB X-Ray 09/06/18 00:00 IMPRESSION: Feeding tube projects over the left upper quadrant, likely in the stomach. Abundant stool in the colon. copyright 2011 [employer]- All Rights Reserved Chest X-Ray 09/06/18 10:55 IMPRESSION: There is some prominence of the right hilum. Some minimal increased density is identified in the right perihilar region which could represent a developing infiltrate. Remaining lung collins are clear Abdomen X-Ray 09/06/18 11:10 IMPRESSION: Large amount of stool in the ascending and transverse colon Qualifiers - * PATIENT BEING DISCHARGED WITH ANY OF THE FOLLOWING DIAGNOSIS: No
[2018-09-08] MEDS: NORMAL SALINE 1000 ML 1,000 ML IV PRN (02:34)
[2018-09-08 05:19] LABS: ALANINE AMINOTRANSFERASE 18 U/L (9-52); ALBUMIN 3.5 g/dL (3.5-5.0); ALKALINE PHOSPHATASE 89 U/L (38-126); ANION GAP 14 (5-19); ASPARTATE AMINO TRANSFERASE 34 U/L (14-36); BILIRUBIN,DIRECT 0.2 mg/dL (0.0-0.4); BILIRUBIN,TOTAL 0.2 mg/dL (0.2-1.3); BLOOD UREA NITROGEN 112 mg/dL (7-20); CALCIUM 9.9 mg/dL (8.4-10.2); CARBON DIOXIDE 22 mmol/L (22-30); CHLORIDE 108 mmol/L (98-107); GLUCOSE 105 mg/dL (75-110); POTASSIUM 3.9 mmol/L (3.6-5.0); SODIUM 143.8 mmol/L (137-145); TOTAL PROTEIN 7.8 g/dL (6.3-8.2)
[2018-09-08 05:23] LABS: ABSOLUTE BASOPHILS # (AUTO) 0.1 10^3/uL (0.0-0.2); ABSOLUTE EOSINOPHILS # (AUTO) 1.6 10^3/uL (0.0-0.6); ABSOLUTE LYMPHOCYTES (AUTO) 3.9 10^3/uL (0.5-4.7); ABSOLUTE MONOCYTES (AUTO) 1.3 10^3/uL (0.1-1.4); ABSOLUTE NEUT (AUTO) 5.3 10^3/uL (1.7-8.2); BASOPHILS % (AUTO) 1.2 % (0-2); EOSINOPHILS % (AUTO) 13.2 % (0-6); HEMATOCRIT 25.8 % (36.0-47.0); HEMOGLOBIN 8.3 g/dL (12.0-15.5); LYMPHOCYTES % (AUTO) 31.8 % (13-45); MEAN CORPUSCULAR HEMOGLOBIN 26.7 pg (27.0-33.4); MEAN CORPUSCULAR HGB CONC 32.3 g/dL (32.0-36.0); MEAN CORPUSCULAR VOLUME 83 fl (80-97); MONOCYTES % (AUTO) 10.6 % (3-13); PLATELET COUNT 343 10^3/uL (150-450); RED BLOOD COUNT 3.12 10^6/uL (3.72-5.28); RED CELL DISTRIBUTION WIDTH 17.7 % (11.5-14.0); SEGMENTED NEUTROPHILS % (AUTO) 43.2 % (42-78); TOTAL CELLS COUNTED % (AUTO) 100 %; WHITE BLOOD COUNT 12.2 10^3/uL (4.0-10.5)
[2018-09-08] MEDS: LISINOPRIL 10 MG TABLET PEG SCH (09:56)
[2018-09-08] MEDS: FUROSEMIDE 40 MG TABLET PEG SCH (09:56)
[2018-09-08] MEDS: ASCORBIC ACID 500 MG TABLET PEG SCH (09:56)
[2018-09-08] MEDS: NYSTATIN TOPICAL POWDER 15 GM TP SCH (09:57)
[2018-09-08] MEDS: INSULIN DETEMIR 100 UNIT/ML 3 ML PEN SUBCUT SCH (09:57)
[2018-09-08] MEDS ORDERED: ASPIRIN 81 MG TABLET, CHEWABLE PEG SCH (10:00)
[2018-09-08 10:13] VITALS: BP 96/45
== END 2018-09-08 11:24 | disposition home health service (06) | DRG 699 ==
LOC: ER 10:22 → EH 13:20 → 3N 18:59
PROVIDERS: ADMIT Internal Medicine; ATTEND Internal Medicine
PROC: 5A1945Z Respiratory Ventilation, 24-96 Consecutive Hours (ICD-10-PCS; principal; 2018-09-06)
DX: T83.511A Infection and inflammatory reaction due to indwelling urethral catheter, initial encounter (principal); N17.9 Acute kidney failure, unspecified; Z99.11 Dependence on respirator [ventilator] status; J96.10 Chronic respiratory failure, unspecified whether with hypoxia or hypercapnia; Y73.8 Miscellaneous gastroenterology and urology devices associated with adverse incidents, not elsewhere classified; E86.0 Dehydration; Z88.8 Allergy status to other drugs, medicaments and biological substances; Z88.3 Allergy status to other anti-infective agents; I11.0 Hypertensive heart disease with heart failure; I50.9 Heart failure, unspecified; L89.152 Pressure ulcer of sacral region, stage 2; E78.00 Pure hypercholesterolemia, unspecified; J44.9 Chronic obstructive pulmonary disease, unspecified; F03.90 Unspecified dementia, unspecified severity, without behavioral disturbance, psychotic disturbance, mood disturbance, and anxiety; E11.9 Type 2 diabetes mellitus without complications; Z86.718 Personal history of other venous thrombosis and embolism; Z86.711 Personal history of pulmonary embolism; Z86.14 Personal history of Methicillin resistant Staphylococcus aureus infection; Z89.511 Acquired absence of right leg below knee; Z79.82 Long term (current) use of aspirin; Z79.4 Long term (current) use of insulin; Z79.899 Other long term (current) drug therapy; Z96.641 Presence of right artificial hip joint; Z93.1 Gastrostomy status; Z95.5 Presence of coronary angioplasty implant and graft
CPT/HCPCS: 36415; 51702; 71045; 74018; 74019; 80053; 81001; 82803; 82962; 83605; 84484; 85025; 85610; 87040; 87077; 87086; 87088; 87186; 87493; 93005; 93010; 94002; 94003; 94640; 96365; 96375; 99285; J0692; J1815; J2405; J3370; J3490; J7030; J7040; J7620

== ENCOUNTER 2018-09-08 13:28 | Inpatient (IN) | payer MEDICARE, MEDICAID ==
--- NOTE | 2018-09-08 14:47 | ER Document Report ---
ED Respiratory Problem - General Chief Complaint: Respiratory Distress Stated Complaint: DIFFICULTY BREATHING Time Seen by Provider: 09/08/18 13:48 Information source: POA - Power of Sales Route Driver, Emergency Med Personnel Notes: Patient is an 82-year-old female that recently was discharged here for possible urinary tract infection, developing lung infiltrate, and G-tube replacement. Patient is a chronic trach/ventilated patient secondary to multiple medical conditions. Patient was discharged today on antibiotics and supposedly according to family, home health nurse, and EMS the patient was switched over to the at-home ventilator. Patient started to become hypoxic and slightly cyanotic. When EMS arrived they bagged the patient with improvement of the vital signs. This was the same ventilator settings that the patient was previously on prior to being transferred. Patient is feeling much better here on the ventilator at this facility. TRAVEL OUTSIDE OF THE [place] IN LAST 30 DAYS: No - HPI Onset: Other - See above Initiating Event: Other - See above Quality of pain: Other - See above Severity: Moderate Associated symptoms: Other - See above Similar symptoms previously: No Recently seen / treated by doctor: No - Related Data Allergies/Adverse Reactions: alprazolam [From Xanax] Allergy (Verified 03/07/18 09:34) iodine [Iodine] Allergy (Verified 03/07/18 09:34) quetiapine fumarate [From Seroquel] Allergy (Verified 03/07/18 09:34) Past Medical History - Social History Smoking Status: Unknown if Ever Smoked Family History: Reviewed & Not Pertinent Patient has suicidal ideation: No Patient has homicidal ideation: No - Past Medical History Cardiac Medical History: Reports: Hx Congestive Heart Failure, Hx DVT, Hx Hypercholesterolemia, Hx Hypertension, Hx Peripheral Vascular Disease, Hx Pulmonary Embolism Pulmonary Medical History: Reports: Hx COPD, Hx Pneumonia - aspiration Endocrine Medical History: Reports: Hx Diabetes Mellitus Type 1, Hx Diabetes Mellitus Type 2 Renal/ Medical History: Denies: Hx Peritoneal Dialysis Psychiatric Medical History: Reports: Hx Dementia Denies: Hx Depression Infectious Medical History: Reports: Hx C-Diff, Hx MRSA, Hx VRE Past Surgical History: Reports: Hx Abdominal Surgery - GI tube, Hx Bowel Surgery , Hx Cardiac Surgery - stents, Hx Orthopedic Surgery - Shoulder. 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 - Immunizations Hx Diphtheria, Pertussis, Tetanus Vaccination: Yes Review of Systems - Review of Systems -: Yes ROS unobtainable due to patient's medical condition Physical Exam - Vital signs Vitals: Resp Pulse Ox 22 H 80 L 09/08/18 13:33 09/08/18 13:33 Notes: Reviewed vital signs and nursing note as charted by RN. CONSTITUTIONAL: Alert with trach in place HEAD: Normocephalic; atraumatic EYES: PERRL; Sclerae non-icteric ENT: Normal nose; no rhinorrhea; moist mucous membranes; pharynx without lesions noted NECK: Supple without meningismus; non-tender CARD: Cardiac; 4 out of 6 systolic murmur heard best at the left upper sternal border; symmetric distal pulses RESP: Normal chest excursion without splinting or tachypnea; some scattered rhonchi to the bases bilaterally ABD/GI: Normal bowel sounds; non-distended; soft, non-tender; no palpable organomegaly or masses BACK: The back appears normal and is non-tender to palpation EXT: Normal ROM in all joints; non-tender to palpation; right bka SKIN: No acute lesions noted NEURO: CN 2-12 intact; 5/5 bilateral upper and lower extremity strength with sensation intact to light touch PSYCH: The patient's mood and manner are appropriate. Grooming and personal hygiene are appropriate. Course - Re-evaluation Re-evalutation: Given the history and physical examination we will order basic labs, repeat x- ray of the chest, EKG, and most likely have to admit the patient once again to the hospital service secondary to a malfunctioning home ventilator. 09/08/18 14:46 Xray of the chest on 09/06 was: IMPRESSION: There is some prominence of the right hilum. Some minimal increased density is identified in the right perihilar region which could represent a developing infiltrate. Remaining lung collins are clear Urine grew two species from 09/06. 09/08/18 14:59 EKG shows a heart rate of 114, sinus tachycardia, normal axis, no ST elevation or depression 09/08/18 15:23 White blood cell count as recorded. X-ray of the chest as recorded. I have added broad-spectrum antibiotics. I have called Dr. Whitehead to discuss this case. He has asked me to consult pulmonology, Dr. Feng. I have placed the consult. Pt will be admitted to the ICU. 09/08/18 15:36 I have spoke with Dr. Christianson who states that he will be able to see the patient. - Vital Signs Vital signs: Temp Pulse Resp BP Pulse Ox 97.1 F 20 143/74 H 99 09/08/18 14:31 09/08/18 14:01 09/08/18 14:01 09/08/18 14:01 - Laboratory Result Diagrams: 09/08/18 13:45 09/08/18 13:45 Laboratory results interpreted by me: 09/08/18 13:45 WBC 26.4 H D RBC 3.36 L Hgb 9.1 L Hct 29.0 L MCHC 31.3 L RDW 18.2 H Lymphocytes % (Manual) 47 H Abs Neuts (Manual) 11.6 H Abs Lymphs (Manual) 12.4 H Abs Monocytes (Manual) 1.6 H Absolute Eos (Manual) 0.8 H Discharge - Discharge Clinical Impression: SOB (shortness of breath), Pulmonary infiltrate Condition: Fair Disposition: ADMITTED INPATIENT Unit Admitted: IMCU Referrals: BAKARI BECKER MD [Primary Care Provider] - Follow up as needed
[2018-09-08 14:52] LABS: HEMOGLOBIN 9.1 g/dL (12.0-15.5); MEAN CORPUSCULAR HGB CONC 31.3 g/dL (32.0-36.0); MEAN CORPUSCULAR VOLUME 86 fl (80-97); PLATELET COUNT 431 10^3/uL (150-450); RED BLOOD COUNT 3.36 10^6/uL (3.72-5.28); RED CELL DISTRIBUTION WIDTH 18.2 % (11.5-14.0)
[2018-09-08 14:53] LABS: WHITE BLOOD COUNT 26.4 10^3/uL (4.0-10.5)
--- NOTE | 2018-09-08 15:13 | RADIOLOGY REPORT (SQ) ---
EXAM DESCRIPTION: CHEST SINGLE VIEW COMPLETED DATE/TIME: 09/08/2018 2:50 pm REASON FOR STUDY: tr1; sob; vent troubles at home COMPARISON: 09/06/2018 EXAM PARAMETERS: NUMBER OF VIEWS: One view. TECHNIQUE: Single frontal radiographic view of the chest acquired. RADIATION DOSE: NA LIMITATIONS: None. FINDINGS: LUNGS AND PLEURA: New small left pleural effusion and atelectasis or consolidation of the left lung base. MEDIASTINUM AND HILAR STRUCTURES: No masses. Contour normal. HEART AND VASCULAR STRUCTURES: Heart normal in size. Normal vasculature. BONES: No acute findings. HARDWARE: None in the chest. OTHER: Tracheostomy. IMPRESSION: Tracheostomy with new small left pleural effusion and atelectasis or consolidation of th e left lung base, concerning for infection. TECHNICAL DOCUMENTATION: JOB ID: [id number] [employer]- All Rights Reserved Reading location - IP/workstation name: [email or web address]
[2018-09-08] MEDS ORDERED: VANCOMYCIN HCL INJ 1000 MG VIAL IV ONE (15:14)
[2018-09-08] MEDS ORDERED: PIPERACILLIN/TAZOBACTAM 3.375 GM VIAL IV ONE (15:15)
[2018-09-08 15:32] LABS: ABSOLUTE LYMPHOCYTES# (MANUAL) 12.4 10^3/uL (0.5-4.7); ABSOLUTE MONOCYTES # (MANUAL) 1.6 10^3/uL (0.1-1.4); ABSOLUTE NEUTROPHILS# (MANUAL) 11.6 10^3/uL (1.7-8.2); ANISOCYTOSIS 2+; BASOPHILS % (MANUAL) 0 % (0-2); EOSINOPHILS % (MANUAL) 3 % (0-6); HYPOCHROMASIA 1+; LYMPHOCYTES % (MANUAL) 47 % (13-45); MONOCYTES % (MANUAL) 6 % (3-13); POLYCHROMASIA 1+; SEGMENTED NEUTROPHILS % (MAN) 44 % (42-78); TOTAL CELLS COUNTED 100
[2018-09-08 15:33] LABS: PLATELET COMMENT ADEQUATE; TOXIC GRANULATION SLIGHT
[2018-09-08 15:43] LABS: ANION GAP 17 (5-19); BLOOD UREA NITROGEN 101 mg/dL (7-20); CALCIUM 10.3 mg/dL (8.4-10.2); CARBON DIOXIDE 19 mmol/L (22-30); CHLORIDE 109 mmol/L (98-107); GLUCOSE 298 mg/dL (75-110); SODIUM 144.7 mmol/L (137-145)
[2018-09-08] MEDS ORDERED: ONDANSETRON HCL 8 MG TABLET PEG PRN (19:39)
[2018-09-08] MEDS ORDERED: MULTIVITAMIN TABLET PO SCH (19:45)
[2018-09-08] MEDS ORDERED: NYSTATIN TOP SCH (19:45)
[2018-09-08] MEDS ORDERED: ASPIRIN 81 MG TABLET, ENT COATED PO SCH (20:00)
[2018-09-08] MEDS: AMLODIPINE BESYLATE 10 MG TABLET PEG SCH (20:45)
[2018-09-08] MEDS ORDERED: DEXTROSE 40% GEL 15 GM TUBE X 2 PO PRN (21:02)
[2018-09-08] MEDS ORDERED: GLUCAGON,HUMAN RECOMB 1 MG INJ IM PRN (21:02)
[2018-09-08] MEDS ORDERED: DEXTROSE 40% GEL 15 GM TUBE PO PRN (21:02)
[2018-09-08] MEDS ORDERED: DEXTROSE 50%-WATER SYRINGE 25 GM/50 ML DOSE IV PRN (21:02)
[2018-09-08] MEDS ORDERED: DEXTROSE 50%-WATER SYRINGE 12.5 GM/25 ML DOSE IV PRN (21:02)
--- NOTE | 2018-09-08 21:17 | PDOC H&P ---
History of Present Illness Admission Date/PCP: 09/08/18 15:40 BAKARI BECKER MD History of Present Illness: BRIANA BRADY is a 82 year old female,She was discharged home this morning when she was admitted 3 days ago when she presented to the emergency room primarily to have the feeding tube change but in the emergency room ,blood was drawn, chest x-ray was done she was diagnosed as having pneumonia and UTI. She has chronic UTI due to chronic indwelling Palacios catheter,the chest x-ray that was done in the emergency room was actually much better than previous chest x- ray she was also found to be dehydrated the last time she was in the hospital with acute kidney injury definitely prerenal treated with IV fluid with improvement ,she was discharged home this morning, the history was that when she got home the ventilator that she depend on was not functioning so she was t ransferred back to the emergency room in the ER blood was done again and CXR was done,WBC 26,000 ,when she was discharged this morning WBC was 12,000,Again the emergency physician is suggestING the patient needed to be admitted to the hospital.She has chronic comorbid conditions including chronic debilitation chronic respiratory failure vent dependent, dementia a tube feeder chronic decubitus ulcer essentially bedbound poor overall condition sedentary lifestyle Past Medical History Cardiac Medical History: Reports: Congestive Heart Failure, DVT, Hyperlipidema, Hypertension, Peripheral Vascular Disease, Pulmonary Embolism Pulmonary Medical History: Reports: Chronic Obstructive Pulmonary Disease (COPD), Pneumonia - aspiration Endocrine Medical History: Reports: Diabetes Mellitus Type 2 Psychiatric Medical History: Reports: Dementia Denies: Depression Infectious Medical History: Reports: Clostridium Difficile, Methicillin- Resistant Staph Aureus, Vancomycin-Resistant Enterococci Past Surgical History Past Surgical History: Reports: Orthopedic Surgery - Shoulder. 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 Social History Smoking Status: Unknown if Ever Smoked Frequency of Alcohol Use: None Hx Recreational Drug Use: No Drugs: None Hx Prescription Drug Abuse: No Family History Family History: Reviewed & Not Pertinent Parental Family History Reviewed: Yes Children Family History Reviewed: Yes Sibling(s) Family History Reviewed.: Yes Medication/Allergy Home Medications: RX: Amlodipine Besylate [Norvasc 10 mg Tablet] 10 mg PEG DAILY 09/08/18 RX: Ascorbic Acid [Vitamin C 500 mg Tablet] 500 mg PEG DAILY 09/08/18 RX: Aspirin [Ecotrin 81 mg EC Tablet] 81 mg PEG DAILY 09/08/18 RX: Furosemide [Lasix 40 mg Tablet] 40 mg PEG DAILY 09/08/18 RX: Insulin Aspart [Novolog Flexpen] 0 units SQ .SLIDING SCALE 09/08/18 RX: Insulin Detemir [Levemir Insulin 100 units/mL] 10 units SQ DAILY 09/08/18 RX: Lisinopril [Prinivil 40 mg Tablet] 40 mg PEG DAILY 09/08/18 RX: Memantine HCl [Namenda 10 mg Tablet] 10 mg PEG DAILY 09/08/18 RX: Multivitamin [Tab-A-Gogo (Multiple Vitamin) Tablet] 1 tab PEG DAILY 09/08/18 RX: Nystatin [Mycostatin 148466 Unit/1 ml Susp 60 ml Btl] 1 applic TOP BID 09/08/18 RX: Ondansetron HCl [Zofran 8 mg Tablet] 8 mg PEG Q8HP PRN 09/08/18 Allergies/Adverse Reactions: alprazolam [From Xanax] Allergy (Verified 03/07/18 09:34) iodine [Iodine] Allergy (Verified 03/07/18 09:34) quetiapine fumarate [From Seroquel] Allergy (Verified 03/07/18 09:34) Review of Systems ROS unobtainable: Due to mental status Physical Exam Vital Signs: Temp Pulse Resp BP Pulse Ox 97.7 F 76 18 90/44 L 98 09/08/18 19:34 09/08/18 19:34 09/08/18 19:34 09/08/18 19:34 09/08/18 19:34 Intake & Output 09/07/18 09/08/18 09/09/18 06:59 06:59 06:59 Output Total 200 Balance -200 Weight 58.5 kg General appearance: PRESENT: no acute distress Eye exam: PRESENT: PERRLA Respiratory exam: PRESENT: rhonchi Cardiovascular exam: PRESENT: +S1, +S2 GI/Abdominal exam: PRESENT: soft Neurological exam: PRESENT: alert Results Impressions: Chest X-Ray 09/08/18 14:30 IMPRESSION: Tracheostomy with new small left pleural effusion and atelectasis or consolidation of the left lung base, concerning for infection. Assessment & Plan - Diagnosis (1) Chronic respiratory failure Qualifiers: Respiratory failure complication: hypoxia Qualified Code(s): J96.11 - Chronic respiratory failure with hypoxia Is this a current diagnosis for this admission?: Yes
[2018-09-08] MEDS: NYSTATIN TOPICAL POWDER 15 GM TP SCH (22:00)
[2018-09-08] MEDS: MEMANTINE HCL 10 MG TABLET PEG SCH (22:00)
[2018-09-09] MEDS: INSULIN LISPRO 100 UNIT/ML 3 ML VIAL SUBCUT SCH ×4 (05:46→18:11)
--- NOTE | 2018-09-09 07:52 | EKG REPORT ---
SEVERITY:- ABNORMAL ECG - SINUS TACHYCARDIA IVCD, CONSIDER ATYPICAL LBBB : Confirmed by: Ketty Mendoza MD 09-Sep-2018 07:50:28
[2018-09-09] MEDS: ALBUTEROL SULFATE 0.083% NEB 2.5 MG/3 ML AMPUL NEB PRN ×4 (08:56→20:51)
[2018-09-09] MEDS: FUROSEMIDE 40 MG TABLET PEG SCH (11:11)
[2018-09-09] MEDS: ASPIRIN 81 MG TABLET, CHEWABLE PEG SCH (11:11)
[2018-09-09] MEDS: ASCORBIC ACID 500 MG TABLET PEG SCH (11:12)
[2018-09-09] MEDS: INSULIN DETEMIR 100 UNIT/ML 3 ML PEN SUBCUT SCH (11:12)
[2018-09-09] MEDS: MULTIVITAMIN ORAL LIQUID 60 ML PEG SCH (11:12)
[2018-09-09] MEDS: MEMANTINE HCL 10 MG TABLET PEG SCH (11:12)
[2018-09-09] MEDS: LISINOPRIL 10 MG TABLET PEG SCH (11:13)
[2018-09-09] MEDS: AMLODIPINE BESYLATE 10 MG TABLET PEG SCH (11:13)
[2018-09-09] MEDS: NYSTATIN TOPICAL POWDER 15 GM TP SCH ×2 (11:24→18:12)
--- NOTE | 2018-09-09 12:53 | PDOC CONSULTATION ---
Consultation Consult Date: 09/09/18 Attending physician:: BAKARI BECKER Consult reason:: pna/acute/chronic resp failure History of Present Illness Admission Date/PCP: 09/08/18 15:40 BAKARI BECKER MD History of Present Illness: BRIANA BRADY is a 82 year old female, known to [facility] for frequent admissions she is chronic respiratory failure vent dependent trach dependent with feeding tube. Over this after several months she is developed multiple decubiti as well she was recently discharged from hospitalization to have her PEG tube replaced she returns what may have been a ventilator at home ventilator malfunction as she presented profoundly hypoxic but wound placed in the hospital ventilator she began to improve Past Medical History Cardiac Medical History: Reports: Congestive Heart Failure, DVT, Hyperlipidema, Hypertension, Peripheral Vascular Disease, Pulmonary Embolism Pulmonary Medical History: Reports: Chronic Obstructive Pulmonary Disease (COPD) , Pneumonia - aspiration Endocrine Medical History: Reports: Diabetes Mellitus Type 1, Diabetes Mellitus Type 2 Psychiatric Medical History: Reports: Dementia Denies: Depression Infectious Medical History: Reports: Clostridium Difficile, Methicillin- Resistant Staph Aureus, Vancomycin-Resistant Enterococci Past Surgical History Past Surgical History: Reports: Orthopedic Surgery - Shoulder. 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 Social History Information Source: COUNT INCLUDES THE [facility] Records Smoking Status: Unknown if Ever Smoked Frequency of Alcohol Use: None Hx Recreational Drug Use: No Drugs: None Hx Prescription Drug Abuse: No Family History Family History: Hypertension Parental Family History Reviewed: Yes Children Family History Reviewed: Yes Sibling(s) Family History Reviewed.: Yes Medication/Allergy Home Medications: Amlodipine Besylate [Norvasc 10 mg Tablet] 10 mg PEG DAILY 09/08/18 Ascorbic Acid [Vitamin C 500 mg Tablet] 500 mg PEG DAILY 09/08/18 Aspirin [Ecotrin 81 mg EC Tablet] 81 mg PEG DAILY 09/08/18 Furosemide [Lasix 40 mg Tablet] 40 mg PEG DAILY 09/08/18 Insulin Aspart [Novolog Flexpen] 0 units SQ .SLIDING SCALE 09/08/18 Insulin Detemir [Levemir Insulin 100 units/mL] 10 units SQ DAILY 09/08/18 Lisinopril [Prinivil 40 mg Tablet] 40 mg PEG DAILY 09/08/18 Memantine HCl [Namenda 10 mg Tablet] 10 mg PEG DAILY 09/08/18 Multivitamin [Tab-A-Gogo (Multiple Vitamin) Tablet] 1 tab PEG DAILY 09/08/18 Nystatin [Mycostatin 788887 Unit/1 ml Susp 60 ml Btl] 1 applic TOP BID 09/08/18 Ondansetron HCl [Zofran 8 mg Tablet] 8 mg PEG Q8HP PRN 09/08/18 Allergies/Adverse Reactions: alprazolam [From Xanax] Allergy (Verified 03/07/18 09:34) iodine [Iodine] Allergy (Verified 03/07/18 09:34) quetiapine fumarate [From Seroquel] Allergy (Verified 03/07/18 09:34) Review of Systems ROS unobtainable: Due to mental status Physical Exam Vital Signs: Temp Pulse Resp BP Pulse Ox 97.4 F 69 16 98/44 L 100 09/09/18 08:11 09/09/18 08:11 09/09/18 08:11 09/09/18 08:11 09/09/18 08:11 Intake & Output 09/08/18 09/09/18 09/10/18 06:59 06:59 06:59 Intake Total 312 Output Total 500 Balance -188 Weight 58.7 kg General appearance: PRESENT: no acute distress Head exam: PRESENT: atraumatic, normocephalic Eye exam: PRESENT: conjunctiva pale. ABSENT: nystagmus, scleral icterus Mouth exam: PRESENT: dry mucosa, neck supple, tongue midline Teeth exam: PRESENT: poor dentation Neck exam: PRESENT: tracheostomy. ABSENT: carotid bruit, JVD, lymphadenopathy, thyromegaly, tracheal deviation Respiratory exam: PRESENT: crackles, decreased breath sounds, prolonged expiratory phas, rhonchi, unlabored. ABSENT: retraction, stridor Cardiovascular exam: PRESENT: RRR Pulses: PRESENT: normal radial pulses GI/Abdominal exam: PRESENT: soft, other - PEG tube in place. ABSENT: tenderness Gentrourinary exam: PRESENT: indwelling catheter Extremities exam: PRESENT: pedal edema. ABSENT: calf tenderness, clubbing, joint swelling Musculoskeletal exam: ABSENT: ambulatory, deformity, dislocation Neurological exam: ABSENT: altered Skin exam: PRESENT: dry, warm Results Impressions: Chest X-Ray 09/08/18 14:30 IMPRESSION: Tracheostomy with new small left pleural effusion and atelectasis or consolidation of the left lung base, concerning for infection. Assessment & Plan - Diagnosis (1) History of MRSA infection of lungs Is this a current diagnosis for this admission?: Yes Plan: Awaiting cultures (2) Pulmonary infiltrate Is this a current diagnosis for this admission?: Yes Plan: Waiting culture results (3) Debilitated patient Is this a current diagnosis for this admission?: Yes Plan: Bedbound trach PEG indwelling Palacios catheter (4) Decubitus ulcer, stage 3 Qualifiers: Pressure injury location: sacral region Qualified Code(s): L89.153 - Pressure ulcer of sacral region, stage 3 Is this a current diagnosis for this admission?: Yes Plan: Daily wound care (5) Dementia Qualifiers: Dementia type: unspecified type Dementia behavioral disturbance: without behavioral disturbance Qualified Code(s): F03.90 - Unspecified dementia without behavioral disturbance Is this a current diagnosis for this admission?: Yes Plan: Generic Name Dose Route Start Last Admin Trade Name Freq PRN Reason Stop Dose Admin Memantine 10 mg 09/08/18 21:00 09/09/18 11:12 Namenda 10 Mg Tablet PEG 10/08/18 20:59 10 mg DAILY CORRINA
[2018-09-09 14:09] LABS: ARTERIAL BLOOD BASE EXCESS -2.1 mmol/L; ARTERIAL BLOOD H2CO3 0.98 mmol/L (1.05-1.35); ARTERIAL BLOOD HCO3 21.6 mmol/L (20-24); ARTERIAL BLOOD O2 SATURATION 89.1 % (94-98); ARTERIAL BLOOD PCO2 32.7 mmHg (35-45); ARTERIAL BLOOD PH 7.44 (7.35-7.45); ARTERIAL BLOOD PO2 53.2 mmHg (80-100); ARTERIAL BLOOD TOTAL CO2 22.6 mmol/L (21-25)
[2018-09-09 14:12] LABS: ARTERIAL BLOOD FIO2 70%
--- NOTE | 2018-09-09 15:46 | PDOC PROGRESS REPORT ---
Subjective Progress Note for:: 09/09/18 Subjective:: Patient remain vent supported. Tolerating enteral tube feeding. No reported fever. Reason For Visit: SHORTNESS OF BREATH, INFILTRATE OF LUNG PRESENT ON Physical Exam Vital Signs: Temp Pulse Resp BP Pulse Ox 98.4 F 105 H 24 H 125/84 97 09/09/18 12:00 09/09/18 12:00 09/09/18 12:00 09/09/18 12:00 09/09/18 12:00 Intake & Output 09/08/18 09/09/18 09/10/18 06:59 06:59 06:59 Intake Total 312 120 Output Total 500 200 Balance -188 -80 Weight 58.7 kg General appearance: PRESENT: mild distress - on Ventilator support. Head exam: PRESENT: atraumatic, normocephalic Mouth exam: PRESENT: dry mucosa - fairly dry Neck exam: PRESENT: tracheostomy Respiratory exam: PRESENT: clear to auscultation monica, decreased breath sounds - at lung bases Cardiovascular exam: PRESENT: RRR, +S1, +S2, tachycardia Vascular exam: ABSENT: pallor GI/Abdominal exam: PRESENT: normal bowel sounds, soft, other - PEG site satisfactory. ABSENT: tenderness Extremities exam: PRESENT: right BKA. ABSENT: pedal edema Neurological exam: PRESENT: alert, awake Skin exam: PRESENT: dry, warm Results Laboratory Results: 09/09/18 13:45 Carbonic Acid 0.98 L HCO3/H2CO3 Ratio 22:1 ABG pH 7.44 ABG pCO2 32.7 L ABG pO2 53.2 L ABG HCO3 21.6 ABG O2 Saturation 89.1 L ABG Base Excess -2.1 FiO2 70% Impressions: Chest X-Ray 09/08/18 14:30 IMPRESSION: Tracheostomy with new small left pleural effusion and atelectasis or consolidation of the left lung base, concerning for infection. Assessment & Plan - Diagnosis (1) Chronic respiratory failure with hypoxia and hypercapnia Is this a current diagnosis for this admission?: Yes Plan: Patient will remain on ventilator support. Setting and management as per pulmonary outbound sales consultant input. (2) Tracheostomy dependence Is this a current diagnosis for this admission?: Yes Plan: Patient will remain on ventilator support. Setting and management as per pulmonary outbound sales consultant input. (3) Urinary tract infection associated with indwelling urethral catheter Qualifiers: Encounter type: initial encounter Qualified Code(s): T83.511A - Infection and inflammatory reaction due to indwelling urethral catheter, initial encounter ; N39.0 - Urinary tract infection, site not specified; N39.0 - Urinary tract infection, site not specified Is this a current diagnosis for this admission?: Yes Plan: Continue current mediation management. (4) Pseudomonas urinary tract infection Is this a current diagnosis for this admission?: Yes Plan: Her recent urine culture on 09/06/18 revealed significant growth of P. aeruginosa which may be due to her indwelling Palacios cath and colonization. In view of her WBC surge in count in relation to the urine culture growth there is concern for possible acute flare of bladder infection.I will start her on IV Imipenem coverage. (5) Type 2 diabetes mellitus Qualifiers: Diabetes mellitus skilled nursing insulin use: with long term care social worker use Diabetes mellitus complication status: with neurologic complications Diabetes mellitus complication detail: with polyneuropathy Qualified Code(s): E11.42 - Type 2 diabetes mellitus with diabetic polyneuropathy Is this a current diagnosis for this admission?: Yes Plan: Continue current mediation management. - Time Time Spent with patient: 25-34 minutes Medications reviewed and adjusted accordingly: Yes Anticipated discharge: Home with Homehealth Within: Other - Inpatient Certification Based on my medical assessment, after consideration of the patient's comorbidities, presenting symptoms, or acuity I expect that the services needed warrant INPATIENT care.: Yes I certify that my determination is in accordance with my understanding of Medicare's requirements for reasonable and necessary INPATIENT services [42 CFR 412.3e].: Yes Medical Necessity: Need Close Monitoring Due to Risk of Patient Decompensation, Need For IV Fluids, Need For Continuous Telemetry Monitoring, Need for Nebulizer Therapy and Monitoring of Response, Need for IV Antibiotics, Risk of Complication if Not Cared For in Hospital Post 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
[2018-09-09] MEDS ORDERED: IMIPENEM/CILASTATIN SODIUM 500 MG in NORMAL SALINE 100 ML IV SCH (18:00)
[2018-09-09] MEDS: IMIPENEM/CILASTATIN SODIUM 500 MG in NORMAL SALINE 100 ML IV SCH (18:11)
[2018-09-09] MEDS: ACETYLCYSTEINE 20% SOLN 800 MG/4 ML VIAL.NEB NEB SCH (20:51)
[2018-09-09] MEDS: ONDANSETRON 4 MG TAB.RAPDIS PEG PRN (21:48)
[2018-09-10] MEDS: INSULIN LISPRO 100 UNIT/ML 3 ML VIAL SUBCUT SCH ×4 (05:32→18:05)
[2018-09-10] MEDS: IMIPENEM/CILASTATIN SODIUM 500 MG in NORMAL SALINE 100 ML IV SCH ×2 (05:41→18:05)
[2018-09-10 06:52] LABS: ARTERIAL BLOOD BASE EXCESS -1.4 mmol/L; ARTERIAL BLOOD H2CO3 1.04 mmol/L (1.05-1.35); ARTERIAL BLOOD HCO3 22.6 mmol/L (20-24); ARTERIAL BLOOD O2 SATURATION 94.2 % (94-98); ARTERIAL BLOOD PCO2 34.7 mmHg (35-45); ARTERIAL BLOOD PH 7.43 (7.35-7.45); ARTERIAL BLOOD TOTAL CO2 23.6 mmol/L (21-25)
[2018-09-10 07:00] LABS: ARTERIAL BLOOD FIO2 40%
[2018-09-10 07:10] LABS: ABSOLUTE BASOPHILS # (AUTO) 0.2 10^3/uL (0.0-0.2); ABSOLUTE EOSINOPHILS # (AUTO) 0.8 10^3/uL (0.0-0.6); ABSOLUTE LYMPHOCYTES (AUTO) 3.8 10^3/uL (0.5-4.7); ABSOLUTE MONOCYTES (AUTO) 1.5 10^3/uL (0.1-1.4); ABSOLUTE NEUT (AUTO) 11.1 10^3/uL (1.7-8.2); EOSINOPHILS % (AUTO) 4.4 % (0-6); HEMOGLOBIN 8.2 g/dL (12.0-15.5); MEAN CORPUSCULAR HEMOGLOBIN 27.5 pg (27.0-33.4); MEAN CORPUSCULAR HGB CONC 32.8 g/dL (32.0-36.0); MEAN CORPUSCULAR VOLUME 84 fl (80-97); MONOCYTES % (AUTO) 8.7 % (3-13); PLATELET COUNT 351 10^3/uL (150-450); RED BLOOD COUNT 2.99 10^6/uL (3.72-5.28); RED CELL DISTRIBUTION WIDTH 18.1 % (11.5-14.0); SEGMENTED NEUTROPHILS % (AUTO) 63.9 % (42-78); TOTAL CELLS COUNTED % (AUTO) 100 %; WHITE BLOOD COUNT 17.3 10^3/uL (4.0-10.5)
[2018-09-10 07:21] LABS: ALANINE AMINOTRANSFERASE 21 U/L (9-52); ALBUMIN 3.5 g/dL (3.5-5.0); ALKALINE PHOSPHATASE 80 U/L (38-126); ANION GAP 11 (5-19); ASPARTATE AMINO TRANSFERASE 25 U/L (14-36); BILIRUBIN,DIRECT 0.3 mg/dL (0.0-0.4); BILIRUBIN,TOTAL 0.3 mg/dL (0.2-1.3); BLOOD UREA NITROGEN 98 mg/dL (7-20); CALCIUM 10.5 mg/dL (8.4-10.2); CARBON DIOXIDE 21 mmol/L (22-30); CHLORIDE 115 mmol/L (98-107); GLUCOSE 157 mg/dL (75-110); POTASSIUM 4.2 mmol/L (3.6-5.0); SODIUM 146.9 mmol/L (137-145); TOTAL PROTEIN 7.7 g/dL (6.3-8.2)
--- NOTE | 2018-09-10 08:27 | RADIOLOGY REPORT (SQ) ---
EXAM DESCRIPTION: CHEST SINGLE VIEW COMPLETED DATE/TIME: 09/10/2018 8:03 am REASON FOR STUDY: resp failure COMPARISON: 09/08/2018. 09/06/2018. FINDINGS: Single-view chest, AP portable upright. Tracheostomy tube remains in place, appropriate. Low lung volumes with consolidation/ volume loss in the left lower lobe. Unchanged central vascular congestion with mild left pleural fluid. Generally stable appearance of the chest. TECHNICAL DOCUMENTATION: JOB ID: [id number] Reading location - IP/workstation name: [email or web address]
[2018-09-10] MEDS: ALBUTEROL SULFATE 0.083% NEB 2.5 MG/3 ML AMPUL NEB PRN ×3 (09:01→20:37)
[2018-09-10] MEDS: ACETYLCYSTEINE 20% SOLN 800 MG/4 ML VIAL.NEB NEB SCH ×2 (09:01→20:37)
[2018-09-10] MEDS: FUROSEMIDE 40 MG TABLET PEG SCH (11:01)
[2018-09-10] MEDS: AMLODIPINE BESYLATE 10 MG TABLET PEG SCH (11:01)
[2018-09-10] MEDS: MEMANTINE HCL 10 MG TABLET PEG SCH (11:01)
[2018-09-10] MEDS: LISINOPRIL 10 MG TABLET PEG SCH (11:01)
[2018-09-10] MEDS: INSULIN DETEMIR 100 UNIT/ML 3 ML PEN SUBCUT SCH (11:02)
[2018-09-10] MEDS: ASCORBIC ACID 500 MG TABLET PEG SCH (11:02)
[2018-09-10] MEDS: MULTIVITAMIN ORAL LIQUID 60 ML PEG SCH (11:02)
[2018-09-10] MEDS: ASPIRIN 81 MG TABLET, CHEWABLE PEG SCH (11:02)
[2018-09-10] MEDS: NYSTATIN TOPICAL POWDER 15 GM TP SCH ×2 (11:03→18:05)
--- NOTE | 2018-09-10 16:10 | PDOC PROGRESS REPORT ---
Subjective Progress Note for:: 09/10/18 Subjective:: Tolerating enteral tube feeding. Remain on vent support. No reported fever. Reason For Visit: SHORTNESS OF BREATH, INFILTRATE OF LUNG PRESENT ON Physical Exam Vital Signs: Temp Pulse Resp BP Pulse Ox 98.8 F 103 H 22 H 115/55 L 93 09/10/18 12:00 09/10/18 12:00 09/10/18 12:00 09/10/18 12:00 09/10/18 12:00 Intake & Output 09/09/18 09/10/18 09/11/18 06:59 06:59 06:59 Intake Total 312 1349 30 Output Total 500 1300 Balance -188 49 30 Weight 58.7 kg 58.7 kg General appearance: PRESENT: mild distress - on tracheostomy with vent support. Head exam: PRESENT: atraumatic, normocephalic Eye exam: PRESENT: conjunctiva pink, PERRLA. ABSENT: scleral icterus Ear exam: PRESENT: normal external ear exam Mouth exam: PRESENT: dry mucosa - fairly Neck exam: PRESENT: tracheostomy Respiratory exam: PRESENT: clear to auscultation monica, decreased breath sounds - at lung bases Cardiovascular exam: PRESENT: RRR, +S1, +S2. ABSENT: diastolic murmur, rubs, systolic murmur Vascular exam: ABSENT: pallor GI/Abdominal exam: PRESENT: normal bowel sounds, soft, other - PEG site dressing is satisfactory. ABSENT: distended, guarding, mass, organolmegaly, rebound, tenderness Extremities exam: PRESENT: right BKA. ABSENT: pedal edema Neurological exam: PRESENT: alert, awake Psychiatric exam: ABSENT: agitated Skin exam: PRESENT: dry, warm Results Laboratory Results: 09/10/18 06:54 09/10/18 06:54 09/10/18 09/10/18 09/10/18 06:40 06:54 06:54 WBC 17.3 H RBC 2.99 L Hgb 8.2 L Hct 25.0 L MCV 84 MCH 27.5 MCHC 32.8 RDW 18.1 H Plt Count 351 Seg Neutrophils % 63.9 Lymphocytes % 22.0 Monocytes % 8.7 Eosinophils % 4.4 Basophils % 1.0 Absolute Neutrophils 11.1 H Absolute Lymphocytes 3.8 Absolute Monocytes 1.5 H Absolute Eosinophils 0.8 H Absolute Basophils 0.2 Carbonic Acid 1.04 L HCO3/H2CO3 Ratio 21:1 ABG pH 7.43 ABG pCO2 34.7 L ABG pO2 68.0 L ABG HCO3 22.6 ABG O2 Saturation 94.2 ABG Base Excess -1.4 FiO2 40% Sodium 146.9 H Potassium 4.2 Chloride 115 H Carbon Dioxide 21 L Anion Gap 11 BUN 98 H Creatinine 1.51 H Est GFR ( Amer) 40 L Est GFR (Non-Af Amer) 33 L Glucose 157 H Calcium 10.5 H Magnesium 3.4 H Total Bilirubin 0.3 AST 25 ALT 21 Alkaline Phosphatase 80 Total Protein 7.7 Albumin 3.5 Assessment & Plan - Diagnosis (1) Chronic respiratory failure with hypoxia and hypercapnia Is this a current diagnosis for this admission?: Yes (2) Tracheostomy dependence Is this a current diagnosis for this admission?: Yes (3) Urinary tract infection associated with indwelling urethral catheter Qualifiers: Encounter type: initial encounter Qualified Code(s): T83.511A - Infection and inflammatory reaction due to indwelling urethral catheter, initial encounter ; N39.0 - Urinary tract infection, site not specified; N39.0 - Urinary tract infection, site not specified Is this a current diagnosis for this admission?: Yes (4) Pseudomonas urinary tract infection Is this a current diagnosis for this admission?: Yes (5) Type 2 diabetes mellitus Qualifiers: Diabetes mellitus alf insulin use: with ferry terminal supervisor use Diabetes mellitus complication status: with neurologic complications Diabetes mellitus complication detail: with polyneuropathy Qualified Code(s): E11.42 - Type 2 diabetes mellitus with diabetic polyneuropathy Is this a current diagnosis for this admission?: Yes - Time Time Spent with patient: 25-34 minutes Medications reviewed and adjusted accordingly: Yes Anticipated discharge: Home with Homehealth Within: Other - Inpatient Certification Based on my medical assessment, after consideration of the patient's comorbidities, presenting symptoms, or acuity I expect that the services needed warrant INPATIENT care.: Yes I certify that my determination is in accordance with my understanding of Medicare's requirements for reasonable and necessary INPATIENT services [42 CFR 412.3e].: Yes Medical Necessity: Need Close Monitoring Due to Risk of Patient Decompensation, Need For IV Fluids, Need For Continuous Telemetry Monitoring, Need for Nebulizer Therapy and Monitoring of Response, Need for IV Antibiotics, Risk of Complication if Not Cared For in Hospital Post Hospital Care: D/C Electrical Assembler Documentation - Plan Summary Plan Summary: Continue all current medication management. D/C planned will look into home ventilator repair for proper function before discharge home.
[2018-09-11] MEDS: INSULIN LISPRO 100 UNIT/ML 3 ML VIAL SUBCUT SCH ×4 (01:06→18:14)
[2018-09-11] MEDS: IMIPENEM/CILASTATIN SODIUM 500 MG in NORMAL SALINE 100 ML IV SCH ×2 (06:18→18:14)
[2018-09-11] MEDS: ACETYLCYSTEINE 20% SOLN 800 MG/4 ML VIAL.NEB NEB SCH ×2 (08:46→21:22)
[2018-09-11] MEDS: ALBUTEROL SULFATE 0.083% NEB 2.5 MG/3 ML AMPUL NEB PRN ×2 (08:46→21:21)
[2018-09-11] MEDS: LISINOPRIL 10 MG TABLET PEG SCH (10:35)
[2018-09-11] MEDS: FUROSEMIDE 40 MG TABLET PEG SCH (10:35)
[2018-09-11] MEDS: AMLODIPINE BESYLATE 10 MG TABLET PEG SCH (10:35)
[2018-09-11] MEDS: ASCORBIC ACID 500 MG TABLET PEG SCH (10:35)
[2018-09-11] MEDS: MEMANTINE HCL 10 MG TABLET PEG SCH (10:35)
[2018-09-11] MEDS: NYSTATIN TOPICAL POWDER 15 GM TP SCH ×2 (10:36→18:15)
[2018-09-11] MEDS: INSULIN DETEMIR 100 UNIT/ML 3 ML PEN SUBCUT SCH (10:36)
[2018-09-11] MEDS: ASPIRIN 81 MG TABLET, CHEWABLE PEG SCH (10:36)
[2018-09-11] MEDS: MULTIVITAMIN ORAL LIQUID 60 ML PEG SCH (10:36)
--- NOTE | 2018-09-11 12:10 | RADIOLOGY REPORT (SQ) ---
EXAM DESCRIPTION: CHEST SINGLE VIEW COMPLETED DATE/TIME: 09/11/2018 11:57 am REASON FOR STUDY: aspiration COMPARISON: None. EXAM PARAMETERS: NUMBER OF VIEWS: One view. TECHNIQUE: Single frontal radiographic view of the chest acquired. RADIATION DOSE: NA LIMITATIONS: None. FINDINGS: LUNGS AND PLEURA: Parenchymal opacities at both lung bases right greater than left. Left pleural effusion. No pneumothorax. MEDIASTINUM AND HILAR STRUCTURES: No masses. Contour normal. HEART AND VASCULAR STRUCTURES: Heart normal in size. Normal vasculature. BONES: No acute findings. HARDWARE: Tracheostomy tube. OTHER: No other significant finding. IMPRESSION: Bibasilar opacities in left effusion. Aspiration complex in the differential. TECHNICAL DOCUMENTATION: JOB ID: [id number] [employer]- All Rights Reserved Reading location - IP/workstation name: [email or web address]
[2018-09-11] MEDS ORDERED: MIDAZOLAM 2 MG/2 ML INJ IV PRN (12:25)
[2018-09-11 19:36] LABS: HEMATOCRIT 26.6 % (36.0-47.0); HEMOGLOBIN 8.5 g/dL (12.0-15.5); MEAN CORPUSCULAR HEMOGLOBIN 26.9 pg (27.0-33.4); MEAN CORPUSCULAR HGB CONC 31.9 g/dL (32.0-36.0); MEAN CORPUSCULAR VOLUME 84 fl (80-97); PLATELET COUNT 383 10^3/uL (150-450); RED BLOOD COUNT 3.15 10^6/uL (3.72-5.28); RED CELL DISTRIBUTION WIDTH 18.7 % (11.5-14.0); WHITE BLOOD COUNT 20.3 10^3/uL (4.0-10.5)
[2018-09-11 19:44] LABS: ALANINE AMINOTRANSFERASE 20 U/L (9-52); ALBUMIN 3.7 g/dL (3.5-5.0); ALKALINE PHOSPHATASE 87 U/L (38-126); ANION GAP 12 (5-19); ASPARTATE AMINO TRANSFERASE 26 U/L (14-36); BILIRUBIN,DIRECT 0.4 mg/dL (0.0-0.4); BILIRUBIN,TOTAL 0.7 mg/dL (0.2-1.3); BLOOD UREA NITROGEN 85 mg/dL (7-20); CARBON DIOXIDE 21 mmol/L (22-30); CHLORIDE 118 mmol/L (98-107); GLUCOSE 211 mg/dL (75-110); POTASSIUM 4.2 mmol/L (3.6-5.0); SODIUM 151.2 mmol/L (137-145); TOTAL PROTEIN 8.3 g/dL (6.3-8.2)
[2018-09-11 19:54] LABS: ABSOLUTE LYMPHOCYTES# (MANUAL) 2.8 10^3/uL (0.5-4.7); ABSOLUTE MONOCYTES # (MANUAL) 0.8 10^3/uL (0.1-1.4); ABSOLUTE NEUTROPHILS# (MANUAL) 16.4 10^3/uL (1.7-8.2); BASOPHILS % (MANUAL) 0 % (0-2); EOSINOPHILS % (MANUAL) 1 % (0-6); LYMPHOCYTES % (MANUAL) 14 % (13-45); MONOCYTES % (MANUAL) 4 % (3-13); SEGMENTED NEUTROPHILS % (MAN) 81 % (42-78); TOTAL CELLS COUNTED 100
[2018-09-11 19:55] LABS: ANISOCYTOSIS 2+; HYPOCHROMASIA SLIGHT; PLATELET COMMENT ADEQUATE; PLATELET LARGE PRESENT; POLYCHROMASIA SLIGHT; TOXIC GRANULATION SLIGHT
--- NOTE | 2018-09-11 21:13 | PDOC PROGRESS REPORT ---
Subjective Progress Note for:: 09/11/18 Subjective:: Patient apparently aspirated she was seen by the bedside, the metabolic profile showed elevated serum sodium. The tube feed is an hold because of increased residual Reason For Visit: SHORTNESS OF BREATH, INFILTRATE OF LUNG PRESENT ON Physical Exam Vital Signs: Temp Pulse Resp BP Pulse Ox 97.4 F 108 H 24 H 143/85 H 96 09/11/18 19:20 09/11/18 19:48 09/11/18 19:20 09/11/18 19:20 09/11/18 19:20 Intake & Output 09/10/18 09/11/18 09/12/18 06:59 06:59 06:59 Intake Total 1349 1689 230 Output Total 1300 1075 950 Balance 49 614 -720 Weight 58.7 kg 76.7 kg General appearance: PRESENT: no acute distress Eye exam: PRESENT: PERRLA Respiratory exam: PRESENT: rhonchi Cardiovascular exam: PRESENT: +S1, +S2 GI/Abdominal exam: PRESENT: soft Neurological exam: PRESENT: alert Results Laboratory Results: 09/11/18 19:18 09/11/18 19:18 09/11/18 09/11/18 19:18 19:18 WBC 20.3 H RBC 3.15 L Hgb 8.5 L Hct 26.6 L MCV 84 MCH 26.9 L MCHC 31.9 L RDW 18.7 H Plt Count 383 Seg Neutrophils % Not Reportable Lymphocytes % Not Reportable Monocytes % Not Reportable Eosinophils % Not Reportable Basophils % Not Reportable Absolute Neutrophils Not Reportable Absolute Lymphocytes Not Reportable Absolute Monocytes Not Reportable Absolute Eosinophils Not Reportable Absolute Basophils Not Reportable Sodium 151.2 H Potassium 4.2 Chloride 118 H Carbon Dioxide 21 L Anion Gap 12 BUN 85 H Creatinine 1.38 H Est GFR ( Amer) 44 L Est GFR (Non-Af Amer) 37 L Glucose 211 H Calcium 11.0 H Total Bilirubin 0.7 AST 26 ALT 20 Alkaline Phosphatase 87 Total Protein 8.3 H Albumin 3.7 Impressions: Chest X-Ray 09/11/18 00:00 IMPRESSION: Bibasilar opacities in left effusion. Aspiration complex in the differential. Assessment & Plan - Diagnosis (1) Chronic respiratory failure Qualifiers: Respiratory failure complication: hypoxia Qualified Code(s): J96.11 - Chronic respiratory failure with hypoxia Is this a current diagnosis for this admission?: Yes (2) Aspiration pneumonia Qualifiers: Aspiration pneumonia type: unspecified Laterality: unspecified laterality Lung location: unspecified part of lung Qualified Code(s): J69.0 - Pneumonitis due to inhalation of food and vomit Is this a current diagnosis for this admission?: Yes (3) Hypernatremia Is this a current diagnosis for this admission?: Yes Plan: Start half-normal saline
[2018-09-11] MEDS: 1/2 NORMAL SALINE 1,000 ML IV PRN (21:20)
[2018-09-11] MEDS: FUROSEMIDE INJ/PF 40 MG/4 ML SDV IV SCH (22:03)
[2018-09-12] MEDS: INSULIN LISPRO 100 UNIT/ML 3 ML VIAL SUBCUT SCH ×4 (00:05→17:07)
[2018-09-12] MEDS: IMIPENEM/CILASTATIN SODIUM 500 MG in NORMAL SALINE 100 ML IV SCH ×2 (05:10→17:18)
[2018-09-12 06:27] LABS: ABSOLUTE BASOPHILS # (AUTO) 0.2 10^3/uL (0.0-0.2); ABSOLUTE EOSINOPHILS # (AUTO) 0.1 10^3/uL (0.0-0.6); ABSOLUTE LYMPHOCYTES (AUTO) 4.5 10^3/uL (0.5-4.7); ABSOLUTE MONOCYTES (AUTO) 1.5 10^3/uL (0.1-1.4); ABSOLUTE NEUT (AUTO) 13.6 10^3/uL (1.7-8.2); BASOPHILS % (AUTO) 0.8 % (0-2); EOSINOPHILS % (AUTO) 0.6 % (0-6); HEMATOCRIT 24.9 % (36.0-47.0); HEMOGLOBIN 8.1 g/dL (12.0-15.5); LYMPHOCYTES % (AUTO) 22.6 % (13-45); MEAN CORPUSCULAR HEMOGLOBIN 27.3 pg (27.0-33.4); MEAN CORPUSCULAR HGB CONC 32.5 g/dL (32.0-36.0); MEAN CORPUSCULAR VOLUME 84 fl (80-97); MONOCYTES % (AUTO) 7.7 % (3-13); PLATELET COUNT 374 10^3/uL (150-450); RED BLOOD COUNT 2.96 10^6/uL (3.72-5.28); RED CELL DISTRIBUTION WIDTH 18.1 % (11.5-14.0); SEGMENTED NEUTROPHILS % (AUTO) 68.3 % (42-78); TOTAL CELLS COUNTED % (AUTO) 100 %; WHITE BLOOD COUNT 19.9 10^3/uL (4.0-10.5)
[2018-09-12 06:52] LABS: ALANINE AMINOTRANSFERASE 22 U/L (9-52); ALBUMIN 3.4 g/dL (3.5-5.0); ALKALINE PHOSPHATASE 80 U/L (38-126); ANION GAP 11 (5-19); ASPARTATE AMINO TRANSFERASE 26 U/L (14-36); BILIRUBIN,DIRECT 0.4 mg/dL (0.0-0.4); BILIRUBIN,TOTAL 0.8 mg/dL (0.2-1.3); BLOOD UREA NITROGEN 85 mg/dL (7-20); CARBON DIOXIDE 20 mmol/L (22-30); CHLORIDE 120 mmol/L (98-107); GLUCOSE 184 mg/dL (75-110); POTASSIUM 4.1 mmol/L (3.6-5.0); SODIUM 150.9 mmol/L (137-145)
[2018-09-12] MEDS: ACETYLCYSTEINE 20% SOLN 800 MG/4 ML VIAL.NEB NEB SCH ×2 (08:24→20:45)
[2018-09-12] MEDS: ALBUTEROL SULFATE 0.083% NEB 2.5 MG/3 ML AMPUL NEB PRN ×2 (08:24→20:45)
[2018-09-12] MEDS: INSULIN DETEMIR 100 UNIT/ML 3 ML PEN SUBCUT SCH (09:19)
[2018-09-12] MEDS: ASCORBIC ACID 500 MG TABLET PEG SCH (09:38)
[2018-09-12] MEDS: LISINOPRIL 10 MG TABLET PEG SCH (09:38)
[2018-09-12] MEDS: ASPIRIN 81 MG TABLET, CHEWABLE PEG SCH (09:39)
[2018-09-12] MEDS: MULTIVITAMIN ORAL LIQUID 60 ML PEG SCH (09:39)
[2018-09-12] MEDS: NYSTATIN TOPICAL POWDER 15 GM TP SCH ×2 (09:39→17:18)
[2018-09-12] MEDS: MEMANTINE HCL 10 MG TABLET PEG SCH (09:39)
[2018-09-12] MEDS: FUROSEMIDE INJ/PF 40 MG/4 ML SDV IV SCH (09:39)
[2018-09-12] MEDS: AMLODIPINE BESYLATE 10 MG TABLET PEG SCH (09:39)
[2018-09-12] MEDS: 1/2 NORMAL SALINE 1,000 ML IV PRN (13:08)
--- NOTE | 2018-09-12 21:32 | PDOC PROGRESS REPORT ---
Subjective Progress Note for:: 09/12/18 Subjective:: lab work showed elevated serum sodium, will discontinue half normal saline start 5% dextrose,tube feed on hold because of increased residual and aspiration risk Reason For Visit: SHORTNESS OF BREATH, INFILTRATE OF LUNG PRESENT ON Physical Exam Vital Signs: Temp Pulse Resp BP Pulse Ox 97.7 F 97 20 129/62 H 96 09/12/18 15:40 09/12/18 15:40 09/12/18 15:40 09/12/18 15:40 09/12/18 15:40 Intake & Output 09/11/18 09/12/18 09/13/18 06:59 06:59 06:59 Intake Total 0020 439 2213 Output Total 1075 950 725 Balance 614 -620 375 Weight 76.7 kg 75.3 kg Eye exam: PRESENT: PERRLA Neck exam: PRESENT: tracheostomy Respiratory exam: PRESENT: clear to auscultation monica Cardiovascular exam: PRESENT: +S1, +S2 GI/Abdominal exam: PRESENT: soft Neurological exam: PRESENT: alert Results Laboratory Results: 09/12/18 06:12 09/12/18 06:12 09/12/18 09/12/18 06:12 06:12 WBC 19.9 H RBC 2.96 L Hgb 8.1 L Hct 24.9 L MCV 84 MCH 27.3 MCHC 32.5 RDW 18.1 H Plt Count 374 Seg Neutrophils % 68.3 Lymphocytes % 22.6 Monocytes % 7.7 Eosinophils % 0.6 Basophils % 0.8 Absolute Neutrophils 13.6 H Absolute Lymphocytes 4.5 Absolute Monocytes 1.5 H Absolute Eosinophils 0.1 Absolute Basophils 0.2 Sodium 150.9 H Potassium 4.1 Chloride 120 H Carbon Dioxide 20 L Anion Gap 11 BUN 85 H Creatinine 1.41 H Est GFR ( Amer) 43 L Est GFR (Non-Af Amer) 36 L Glucose 184 H Calcium 11.0 H Total Bilirubin 0.8 AST 26 ALT 22 Alkaline Phosphatase 80 Total Protein 8.0 Albumin 3.4 L Impressions: Chest X-Ray 09/11/18 00:00 IMPRESSION: Bibasilar opacities in left effusion. Aspiration complex in the differential. Assessment & Plan - Diagnosis (1) Chronic respiratory failure Qualifiers: Respiratory failure complication: hypoxia Qualified Code(s): J96.11 - Chron ic respiratory failure with hypoxia Is this a current diagnosis for this admission?: Yes (2) Aspiration pneumonia Qualifiers: Aspiration pneumonia type: unspecified Laterality: unspecified laterality Lung location: unspecified part of lung Qualified Code(s): J69.0 - Pneumonitis due to inhalation of food and vomit Is this a current diagnosis for this admission?: Yes (3) Hypernatremia Is this a current diagnosis for this admission?: Yes Plan: Start 5% dextrose
[2018-09-13] MEDS: INSULIN LISPRO 100 UNIT/ML 3 ML VIAL SUBCUT SCH ×5 (00:05→23:58)
[2018-09-13] MEDS: ALBUTEROL SULFATE 0.083% NEB 2.5 MG/3 ML AMPUL NEB PRN ×3 (01:14→21:34)
[2018-09-13] MEDS: DEXTROSE 5%-WATER 1000 ML 1,000 ML IV PRN ×2 (02:17→13:18)
[2018-09-13] MEDS: IMIPENEM/CILASTATIN SODIUM 500 MG in NORMAL SALINE 100 ML IV SCH ×2 (06:36→17:42)
[2018-09-13] MEDS: FUROSEMIDE INJ/PF 40 MG/4 ML SDV IV SCH (09:29)
[2018-09-13] MEDS: AMLODIPINE BESYLATE 10 MG TABLET PEG SCH (09:29)
[2018-09-13] MEDS: LISINOPRIL 10 MG TABLET PEG SCH (09:30)
[2018-09-13] MEDS: ASPIRIN 81 MG TABLET, CHEWABLE PEG SCH (09:30)
[2018-09-13] MEDS: ACETYLCYSTEINE 20% SOLN 800 MG/4 ML VIAL.NEB NEB SCH ×2 (09:35→21:37)
[2018-09-13] MEDS: INSULIN DETEMIR 100 UNIT/ML 3 ML PEN SUBCUT SCH (09:39)
[2018-09-13] MEDS: ASCORBIC ACID 500 MG TABLET PEG SCH (09:40)
[2018-09-13] MEDS: MEMANTINE HCL 10 MG TABLET PEG SCH (09:41)
[2018-09-13] MEDS: MULTIVITAMIN ORAL LIQUID 60 ML PEG SCH (09:41)
[2018-09-13] MEDS: NYSTATIN TOPICAL POWDER 15 GM TP SCH ×2 (09:43→17:51)
[2018-09-13 10:47] LABS: ABSOLUTE BASOPHILS # (AUTO) 0.1 10^3/uL (0.0-0.2); ABSOLUTE EOSINOPHILS # (AUTO) 0.5 10^3/uL (0.0-0.6); ABSOLUTE LYMPHOCYTES (AUTO) 4.4 10^3/uL (0.5-4.7); ABSOLUTE MONOCYTES (AUTO) 1.4 10^3/uL (0.1-1.4); ABSOLUTE NEUT (AUTO) 9.4 10^3/uL (1.7-8.2); BASOPHILS % (AUTO) 0.9 % (0-2); EOSINOPHILS % (AUTO) 2.9 % (0-6); HEMATOCRIT 25.9 % (36.0-47.0); HEMOGLOBIN 8.3 g/dL (12.0-15.5); MEAN CORPUSCULAR HEMOGLOBIN 27.3 pg (27.0-33.4); MEAN CORPUSCULAR HGB CONC 32.1 g/dL (32.0-36.0); MEAN CORPUSCULAR VOLUME 85 fl (80-97); MONOCYTES % (AUTO) 8.8 % (3-13); PLATELET COUNT 416 10^3/uL (150-450); RED BLOOD COUNT 3.04 10^6/uL (3.72-5.28); RED CELL DISTRIBUTION WIDTH 18.6 % (11.5-14.0); SEGMENTED NEUTROPHILS % (AUTO) 59.4 % (42-78); TOTAL CELLS COUNTED % (AUTO) 100 %; WHITE BLOOD COUNT 15.7 10^3/uL (4.0-10.5)
[2018-09-13 11:04] LABS: ALANINE AMINOTRANSFERASE 13 U/L (9-52); ALBUMIN 3.6 g/dL (3.5-5.0); ALKALINE PHOSPHATASE 93 U/L (38-126); ANION GAP 12 (5-19); ASPARTATE AMINO TRANSFERASE 27 U/L (14-36); BILIRUBIN,DIRECT 0.4 mg/dL (0.0-0.4); BILIRUBIN,TOTAL 0.6 mg/dL (0.2-1.3); BLOOD UREA NITROGEN 69 mg/dL (7-20); CALCIUM 10.9 mg/dL (8.4-10.2); CARBON DIOXIDE 18 mmol/L (22-30); CHLORIDE 117 mmol/L (98-107); GLUCOSE 242 mg/dL (75-110); POTASSIUM 3.7 mmol/L (3.6-5.0); SODIUM 147.2 mmol/L (137-145); TOTAL PROTEIN 8.1 g/dL (6.3-8.2)
[2018-09-13] MEDS ORDERED: TOBRAMYCIN SULFATE INJ 80 MG/2 ML VIAL NEB SCH (11:45)
[2018-09-13 12:09] LABS: ARTERIAL BLOOD H2CO3 0.77 mmol/L (1.05-1.35); ARTERIAL BLOOD HCO3 19.5 mmol/L (20-24); ARTERIAL BLOOD O2 SATURATION 97.7 % (94-98); ARTERIAL BLOOD PCO2 25.7 mmHg (35-45); ARTERIAL BLOOD PO2 91.9 mmHg (80-100); ARTERIAL BLOOD TOTAL CO2 20.3 mmol/L (21-25)
[2018-09-13 12:10] LABS: ARTERIAL BLOOD FIO2 30%
[2018-09-13 15:07] LABS: APPEARANCE,URINE CLEAR; BILIRUBIN,URINE NEGATIVE (NEGATIVE); COLOR,URINE YELLOW; GLUCOSE, URINE >=500 mg/dL (NEGATIVE); KETONES,URINE NEGATIVE (NEGATIVE); LEUKOCYTE ESTERASE,URINE TRACE (NEGATIVE); NITRITE,URINE NEGATIVE (NEGATIVE); PROTEIN,URINE 30 mg/dL (NEGATIVE); URINE SPECIFIC GRAVITY 1.008; UROBILINOGEN,URINE NEGATIVE mg/dL (<2.0)
--- NOTE | 2018-09-13 20:14 | PDOC PROGRESS REPORT ---
Subjective Progress Note for:: 09/13/18 Subjective:: She was started on 5% dextrose, the sodium is improved from yesterday Reason For Visit: SHORTNESS OF BREATH, INFILTRATE OF LUNG PRESENT ON Physical Exam Vital Signs: Temp Pulse Resp BP Pulse Ox 97.7 F 82 20 177/48 H 96 09/13/18 16:02 09/13/18 19:55 09/13/18 16:02 09/13/18 16:02 09/13/18 17:15 Intake & Output 09/12/18 09/13/18 09/14/18 06:59 06:59 06:59 Intake Total 330 2100 1110 Output Total 950 1025 925 Balance -620 1075 185 Weight 75.3 kg 75.7 kg General appearance: PRESENT: no acute distress Eye exam: PRESENT: PERRLA Respiratory exam: PRESENT: clear to auscultation monica Cardiovascular exam: PRESENT: +S1, +S2 GI/Abdominal exam: PRESENT: soft Neurological exam: PRESENT: alert Results Laboratory Results: 09/13/18 10:15 09/13/18 10:15 09/13/18 09/13/18 09/13/18 10:15 10:15 11:46 WBC 15.7 H RBC 3.04 L Hgb 8.3 L Hct 25.9 L MCV 85 MCH 27.3 MCHC 32.1 RDW 18.6 H Plt Count 416 Seg Neutrophils % 59.4 Lymphocytes % 28.0 Monocytes % 8.8 Eosinophils % 2.9 Basophils % 0.9 Absolute Neutrophils 9.4 H Absolute Lymphocytes 4.4 Absolute Monocytes 1.4 Absolute Eosinophils 0.5 Absolute Basophils 0.1 Carbonic Acid 0.77 L HCO3/H2CO3 Ratio 25:1 ABG pH 7.50 H ABG pCO2 25.7 L ABG pO2 91.9 ABG HCO3 19.5 L ABG O2 Saturation 97.7 ABG Base Excess -3.0 FiO2 30% Sodium 147.2 H Potassium 3.7 Chloride 117 H Carbon Dioxide 18 L Anion Gap 12 BUN 69 H Creatinine 1.36 H Est GFR ( Amer) 45 L Est GFR (Non-Af Amer) 37 L Glucose 242 H Calcium 10.9 H Total Bilirubin 0.6 AST 27 ALT 13 Alkaline Phosphatase 93 Total Protein 8.1 Albumin 3.6 Urine Color Urine Appearance Urine pH Ur Specific [place] Urine Protein Urine Glucose (UA) Urine Ketones Urine Blood Urine Nitrite Ur Leukocyte Esterase Urine WBC (Auto) Urine RBC (Auto) 09/13/18 14:53 WBC RBC Hgb Hct MCV MCH MCHC RDW Plt Count Seg Neutrophils % Lymphocytes % Monocytes % Eosinophils % Basophils % Absolute Neutrophils Absolute Lymphocytes Absolute Monocytes Absolute Eosinophils Absolute Basophils Carbonic Acid HCO3/H2CO3 Ratio ABG pH ABG pCO2 ABG pO2 ABG HCO3 ABG O2 Saturation ABG Base Excess FiO2 Sodium Potassium Chloride Carbon Dioxide Anion Gap BUN Creatinine Est GFR ( Amer) Est GFR (Non-Af Amer) Glucose Calcium Total Bilirubin AST ALT Alkaline Phosphatase Total Protein Albumin Urine Color YELLOW Urine Appearance CLEAR Urine pH 6.0 Ur Specific [place] 1.008 Urine Protein 30 H Urine Glucose (UA) >=500 H Urine Ketones NEGATIVE Urine Blood NEGATIVE Urine Nitrite NEGATIVE Ur Leukocyte Esterase TRACE H Urine WBC (Auto) 1 Urine RBC (Auto) 0 09/10/18 14:10 Tracheal Aspirate Gram Stain - Final 09/10/18 14:10 Tracheal Aspirate Sputum Culture - Final Pseudomonas Aeruginosa C.albicans/C.dubliniensis Normal Nan Absent Impressions: Chest X-Ray 09/11/18 00:00 IMPRESSION: Bibasilar opacities in left effusion. Aspiration complex in the differential. Assessment & Plan - Diagnosis (1) Chronic respiratory failure Qualifiers: Respiratory failure complication: hypoxia Qualified Code(s): J96.11 - Chronic respiratory failure with hypoxia Is this a current diagnosis for this admission?: Yes (2) Aspiration pneumonia Qualifiers: Aspiration pneumonia type: unspecified Laterality: unspecified laterality Lung location: unspecified part of lung Qualified Code(s): J69.0 - Pneumonitis due to inhalation of food and vomit Is this a current diagnosis for this admission?: Yes (3) Hypernatremia Is this a current diagnosis for this admission?: Yes
[2018-09-13] MEDS: TOBRAMYCIN SULFATE NEB 40 MG/ML 30 ML NEB SCH (21:35)
[2018-09-14] MEDS: DEXTROSE 5%-WATER 1000 ML 1,000 ML IV PRN ×2 (00:04→12:31)
[2018-09-14] MEDS: IMIPENEM/CILASTATIN SODIUM 500 MG in NORMAL SALINE 100 ML IV SCH ×2 (05:14→20:55)
[2018-09-14] MEDS: INSULIN LISPRO 100 UNIT/ML 3 ML VIAL SUBCUT SCH ×3 (05:54→20:52)
[2018-09-14] MEDS: ACETYLCYSTEINE 20% SOLN 800 MG/4 ML VIAL.NEB NEB SCH ×2 (09:25→19:57)
[2018-09-14] MEDS: ALBUTEROL SULFATE 0.083% NEB 2.5 MG/3 ML AMPUL NEB PRN ×2 (09:25→19:57)
[2018-09-14] MEDS: TOBRAMYCIN SULFATE NEB 40 MG/ML 30 ML NEB SCH ×2 (09:25→19:57)
[2018-09-14] MEDS: MEMANTINE HCL 10 MG TABLET PEG SCH (11:59)
[2018-09-14] MEDS: AMLODIPINE BESYLATE 10 MG TABLET PEG SCH (11:59)
[2018-09-14] MEDS: FUROSEMIDE INJ/PF 40 MG/4 ML SDV IV SCH (11:59)
[2018-09-14] MEDS: ASPIRIN 81 MG TABLET, CHEWABLE PEG SCH (12:00)
[2018-09-14] MEDS: MULTIVITAMIN ORAL LIQUID 60 ML PEG SCH (12:02)
[2018-09-14] MEDS: ASCORBIC ACID 500 MG TABLET PEG SCH (12:04)
[2018-09-14] MEDS: INSULIN DETEMIR 100 UNIT/ML 3 ML PEN SUBCUT SCH (12:04)
[2018-09-14] MEDS: NYSTATIN TOPICAL POWDER 15 GM TP SCH ×2 (12:06→20:56)
[2018-09-14 15:59] LABS: ANION GAP 11 (5-19); BLOOD UREA NITROGEN 57 mg/dL (7-20); CARBON DIOXIDE 17 mmol/L (22-30); CHLORIDE 106 mmol/L (98-107); GLUCOSE 204 mg/dL (75-110); POTASSIUM 3.5 mmol/L (3.6-5.0); SODIUM 134.1 mmol/L (137-145)
[2018-09-14 16:22] LABS: ABSOLUTE BASOPHILS # (AUTO) 0.1 10^3/uL (0.0-0.2); ABSOLUTE EOSINOPHILS # (AUTO) 0.9 10^3/uL (0.0-0.6); ABSOLUTE LYMPHOCYTES (AUTO) 3.4 10^3/uL (0.5-4.7); ABSOLUTE MONOCYTES (AUTO) 1.2 10^3/uL (0.1-1.4); ABSOLUTE NEUT (AUTO) 8.2 10^3/uL (1.7-8.2); BASOPHILS % (AUTO) 0.7 % (0-2); EOSINOPHILS % (AUTO) 6.3 % (0-6); LYMPHOCYTES % (AUTO) 24.9 % (13-45); MEAN CORPUSCULAR HEMOGLOBIN 27.3 pg (27.0-33.4); MEAN CORPUSCULAR HGB CONC 32.5 g/dL (32.0-36.0); MEAN CORPUSCULAR VOLUME 84 fl (80-97); MONOCYTES % (AUTO) 8.7 % (3-13); PLATELET COUNT 382 10^3/uL (150-450); RED BLOOD COUNT 2.74 10^6/uL (3.72-5.28); RED CELL DISTRIBUTION WIDTH 18.5 % (11.5-14.0); SEGMENTED NEUTROPHILS % (AUTO) 59.4 % (42-78); TOTAL CELLS COUNTED % (AUTO) 100 %; WHITE BLOOD COUNT 13.8 10^3/uL (4.0-10.5)
[2018-09-14 17:31] LABS: HEMOGLOBIN 7.5 g/dL (12.0-15.5)
[2018-09-14] MEDS ORDERED: NORMAL SALINE 250 ML IV PRN ×2 (19:20)
[2018-09-14] MEDS: LISINOPRIL 10 MG TABLET PEG SCH (20:50)
--- NOTE | 2018-09-14 20:58 | PDOC DISCHARGE SUMMARY ---
General - Admit/Disc Date/PCP Admission Date/Primary Care Provider: 09/08/18 15:40 BAKARI BECKER MD Discharge Date: 09/15/18 - Discharge Diagnosis (1) Ventilator associated pneumonia Is this a current diagnosis for this admission?: Yes (2) Recurrent pneumonia Is this a current diagnosis for this admission?: Yes (3) Chronic respiratory failure Is this a current diagnosis for this admission?: Yes (4) Hypernatremia Is this a current diagnosis for this admission?: Yes (5) Debilitated patient Is this a current diagnosis for this admission?: Yes (6) Anemia Is this a current diagnosis for this admission?: Yes (7) Dementia Is this a current diagnosis for this admission?: Yes (8) Primary hyperparathyroidism Is this a current diagnosis for this admission?: Yes (9) Stage II pressure ulcer of buttock Is this a current diagnosis for this admission?: Yes - Additional Information Home Medications: RX: Amlodipine Besylate [Norvasc 10 mg Tablet] 10 mg PEG DAILY 09/08/18 RX: Ascorbic Acid [Vitamin C 500 mg Tablet] 500 mg PEG DAILY 09/08/18 RX: Aspirin [Ecotrin 81 mg EC Tablet] 81 mg PEG DAILY 09/08/18 RX: Furosemide [Lasix 40 mg Tablet] 40 mg PEG DAILY 09/08/18 RX: Insulin Aspart [Novolog Flexpen] 0 units SQ .SLIDING SCALE 09/08/18 RX: Insulin Detemir [Levemir Insulin 100 units/mL] 10 units SQ DAILY 09/08/18 RX: Lisinopril [Prinivil 40 mg Tablet] 40 mg PEG DAILY 09/08/18 RX: Memantine HCl [Namenda 10 mg Tablet] 10 mg PEG DAILY 09/08/18 RX: Multivitamin [Tab-A-Gogo (Multiple Vitamin) Tablet] 1 tab PEG DAILY 09/08/18 RX: Nystatin [Mycostatin 225145 Unit/1 ml Susp 60 ml Btl] 1 applic TOP BID 09/08/18 RX: Ondansetron HCl [Zofran 8 mg Tablet] 8 mg PEG Q8HP PRN 09/08/18 History of Present Illness History of Present Illness: BRIANA BRADY is a 82 year old female,She was discharged home this morning when she was admitted 3 days ago when she presented to the emergency room primarily to have the feeding tube change but in the emergency room ,blood was drawn, chest x-ray was done she was diagnosed as having pneumonia and UTI. She has chronic UTI due to chronic indwelling Palacios catheter,the chest x-ray that was done in the emergency room was actually much better than previous chest x- ray she was also found to be dehydrated the last time she was in the hospital with acute kidney injury definitely prerenal treated with IV fluid with improvement ,she was discharged home this morning, the history was that when she got home the ventilator that she depend on was not functioning so she was transferred back to the emergency room in the ER blood was done again and CXR was done,WBC 26,000 ,when she was discharged this morning WBC was 12,000,Again the emergency physician is suggestING the patient needed to be admitted to the hospital.She has chronic comorbid conditions including chronic debilitation chronic respiratory failure vent dependent, dementia a tube feeder chronic decubitus ulcer essentially bedbound poor overall condition sedentary lifestyle Hospital Course Hospital Course: Patient was admitted for the management of recurrent pneumonia dementia, debilitation,vent dependency, she was seen by pulmonary Dr. Christianson for vent management. Patient will refuse care whenever family is not in the room,, patient is hospice appropriate but patient's daughter continue to refuse hospice care for this patient though patient continuously refused care whenever no family member is in the room. She is vent dependent chronic sacral decubitus ulcer a tube feeder she was treated with IV antibiotic, transfused with packed red boluses, the hypernatremia was corrected with 5% dextrose Physical Exam Vital Signs: Temp Pulse Resp BP Pulse Ox 98.2 F 89 20 111/45 L 98 09/14/18 15:32 09/14/18 15:32 09/14/18 15:32 09/14/18 15:32 09/14/18 16:00 Intake & Output 09/13/18 09/14/18 09/15/18 06:59 06:59 06:59 Intake Total 2100 2894 1000 Output Total 1025 1425 800 Balance 1075 1469 200 Weight 78.1 kg General appearance: PRESENT: no acute distress Respiratory exam: PRESENT: decreased breath sounds Cardiovascular exam: PRESENT: +S1, +S2 GI/Abdominal exam: PRESENT: soft Neurological exam: PRESENT: alert Results Laboratory Results: 09/14/18 15:55 09/14/18 15:25 09/14/18 09/14/18 09/14/18 15:25 15:25 15:55 WBC Cancelled 13.8 H RBC Cancelled 2.74 L Hgb Cancelled 7.5 L Hct Cancelled 23.0 L MCV Cancelled 84 MCH Cancelled 27.3 MCHC Cancelled 32.5 RDW Cancelled 18.5 H Plt Count Cancelled 382 Seg Neutrophils % Cancelled 59.4 Lymphocytes % Cancelled 24.9 Monocytes % Cancelled 8.7 Eosinophils % Cancelled 6.3 H Basophils % Cancelled 0.7 Absolute Neutrophils Cancelled 8.2 Absolute Lymphocytes Cancelled 3.4 Absolute Monocytes Cancelled 1.2 Absolute Eosinophils Cancelled 0.9 H Absolute Basophils Cancelled 0.1 Sodium 134.1 L Potassium 3.5 L Chloride 106 Carbon Dioxide 17 L Anion Gap 11 BUN 57 H Creatinine 1.11 Est GFR ( Amer) 57 L Est GFR (Non-Af Amer) 47 L Glucose 204 H Calcium 10.0 Blood Type Antibody Screen 09/14/18 19:44 WBC RBC Hgb Hct MCV MCH MCHC RDW Plt Count Seg Neutrophils % Lymphocytes % Monocytes % Eosinophils % Basophils % Absolute Neutrophils Absolute Lymphocytes Absolute Monocytes Absolute Eosinophils Absolute Basophils Sodium Potassium Chloride Carbon Dioxide Anion Gap BUN Creatinine Est GFR ( Amer) Est GFR (Non-Af Amer) Glucose Calcium Blood Type A POSITIVE Antibody Screen NEGATIVE Impressions: Chest X-Ray 09/11/18 00:00 IMPRESSION: Bibasilar opacities in left effusion. Aspiration complex in the differential. Qualifiers - * PATIENT BEING DISCHARGED WITH ANY OF THE FOLLOWING DIAGNOSIS: No
[2018-09-15] MEDS: INSULIN LISPRO 100 UNIT/ML 3 ML VIAL SUBCUT SCH ×2 (00:17→06:08)
[2018-09-15] MEDS: ACETYLCYSTEINE 20% SOLN 800 MG/4 ML VIAL.NEB NEB SCH (08:46)
[2018-09-15] MEDS: TOBRAMYCIN SULFATE NEB 40 MG/ML 30 ML NEB SCH (08:47)
[2018-09-15] MEDS: ALBUTEROL SULFATE 0.083% NEB 2.5 MG/3 ML AMPUL NEB PRN (08:49)
[2018-09-15] MEDS: IMIPENEM/CILASTATIN SODIUM 500 MG in NORMAL SALINE 100 ML IV SCH (09:00)
[2018-09-15] MEDS: MULTIVITAMIN ORAL LIQUID 60 ML PEG SCH (10:05)
[2018-09-15] MEDS: ASCORBIC ACID 500 MG TABLET PEG SCH (10:05)
[2018-09-15] MEDS: AMLODIPINE BESYLATE 10 MG TABLET PEG SCH (10:09)
[2018-09-15] MEDS: ONDANSETRON 4 MG TAB.RAPDIS PEG PRN (10:09)
[2018-09-15] MEDS: ASPIRIN 81 MG TABLET, CHEWABLE PEG SCH (10:10)
[2018-09-15] MEDS: INSULIN DETEMIR 100 UNIT/ML 3 ML PEN SUBCUT SCH (10:10)
[2018-09-15] MEDS: MEMANTINE HCL 10 MG TABLET PEG SCH (10:10)
[2018-09-15] MEDS: FUROSEMIDE INJ/PF 40 MG/4 ML SDV IV SCH (10:10)
[2018-09-15] MEDS: NYSTATIN TOPICAL POWDER 15 GM TP SCH (10:10)
[2018-09-15] MEDS: LISINOPRIL 10 MG TABLET PEG SCH (10:12)
[2018-09-15 15:07] VITALS: BP 120/60
--- NOTE | 2018-09-25 12:38 | PDOC PROGRESS REPORT ---
Subjective Progress Note for:: 09/11/18 Subjective:: Unresponsive Reason For Visit: SHORTNESS OF BREATH, INFILTRATE OF LUNG PRESENT ON Physical Exam Vital Signs: Temp Pulse Resp BP Pulse Ox 97.3 F 94 21 H 119/65 96 09/13/18 08:11 09/13/18 08:11 09/13/18 08:11 09/13/18 08:11 09/13/18 08:11 Intake & Output 09/12/18 09/13/18 09/14/18 06:59 06:59 06:59 Intake Total 330 2100 100 Output Total 950 1025 200 Balance -620 1075 -100 Weight 75.3 kg 75.7 kg General appearance: PRESENT: no acute distress, disheveled. ABSENT: cooperative Head exam: PRESENT: atraumatic, normocephalic Eye exam: PRESENT: conjunctiva pale. ABSENT: EOMI, nystagmus, scleral icterus Mouth exam: PRESENT: dry mucosa, neck supple, tongue midline Neck exam: PRESENT: tracheostomy. ABSENT: carotid bruit, JVD, lymphadenopathy, thyromegaly, tracheal deviation Respiratory exam: PRESENT: decreased breath sounds, prolonged expiratory phas, rales, rhonchi, unlabored, wheezes. ABSENT: retraction, stridor Cardiovascular exam: PRESENT: RRR, +S1, +S2 Pulses: PRESENT: normal radial pulses GI/Abdominal exam: PRESENT: soft, other - Feeding tube. ABSENT: tenderness Extremities exam: PRESENT: pedal edema. ABSENT: calf tenderness, clubbing, joint swelling Musculoskeletal exam: ABSENT: ambulatory, deformity, dislocation Neurological exam: ABSENT: altered Skin exam: PRESENT: dry, warm Results Laboratory Results: 09/13/18 10:15 09/13/18 10:15 09/13/18 09/13/18 10:15 10:15 WBC 15.7 H RBC 3.04 L Hgb 8.3 L Hct 25.9 L MCV 85 MCH 27.3 MCHC 32.1 RDW 18.6 H Plt Count 416 Seg Neutrophils % 59.4 Lymphocytes % 28.0 Monocytes % 8.8 Eosinophils % 2.9 Basophils % 0.9 Absolute Neutrophils 9.4 H Absolute Lymphocytes 4.4 Absolute Monocytes 1.4 Absolute Eosinophils 0.5 Absolute Basophils 0.1 Sodium 147.2 H Potassium 3.7 Chloride 117 H Carbon Dioxide 18 L Anion Gap 12 BUN 69 H Creatinine 1.36 H Est GFR ( Amer) 45 L Est GFR (Non-Af Amer) 37 L Glucose 242 H Calcium 10.9 H Total Bilirubin 0.6 AST 27 ALT 13 Alkaline Phosphatase 93 Total Protein 8.1 Albumin 3.6 09/10/18 14:10 Tracheal Aspirate Gram Stain - Final 09/10/18 14:10 Tracheal Aspirate Sputum Culture - Final Pseudomonas Aeruginosa C.albicans/C.dubliniensis Normal Nan Absent Impressions: Chest X-Ray 09/11/18 00:00 IMPRESSION: Bibasilar opacities in left effusion. Aspiration complex in the differential. Assessment & Plan - Diagnosis (1) History of MRSA infection of lungs Is this a current diagnosis for this admission?: Yes Plan: Awaiting cultures (2) Pulmonary infiltrate Is this a current diagnosis for this admission?: Yes Plan: Waiting culture results (3) Debilitated patient Is this a current diagnosis for this admission?: Yes Plan: Bedbound trach PEG indwelling Palacios catheter (4) Decubitus ulcer, stage 3 Qualifiers: Pressure injury location: sacral region Qualified Code(s): L89.153 - Pressure ulcer of sacral region, stage 3 Is this a current diagnosis for this admission?: Yes Plan: Daily wound care (5) Dementia Qualifiers: Dementia type: unspecified type Dementia behavioral disturbance: without behavioral disturbance Qualified Code(s): F03.90 - Unspecified dementia without behavioral disturbance Is this a current diagnosis for this admission?: Yes Plan: Generic Name Dose Route Start Last Admin Trade Name Teresita PRN Reason Stop Dose Admin Memantine 10 mg 09/08/18 21:00 09/09/18 11:12 Namenda 10 Mg Tablet PEG 10/08/18 20:59 10 mg DAILY CORRINA
--- NOTE | 2018-09-25 12:40 | PDOC PROGRESS REPORT ---
Subjective Progress Note for:: 09/12/18 Subjective:: Unresponsive Reason For Visit: SHORTNESS OF BREATH, INFILTRATE OF LUNG PRESENT ON Physical Exam Vital Signs: Temp Pulse Resp BP Pulse Ox 97.3 F 94 21 H 119/65 96 09/13/18 08:11 09/13/18 08:11 09/13/18 08:11 09/13/18 08:11 09/13/18 08:11 Intake & Output 09/12/18 09/13/18 09/14/18 06:59 06:59 06:59 Intake Total 330 2100 100 Output Total 950 1025 200 Balance -620 1075 -100 Weight 75.3 kg 75.7 kg General appearance: PRESENT: no acute distress, disheveled. ABSENT: cooperative Head exam: PRESENT: atraumatic, normocephalic Eye exam: PRESENT: conjunctiva pale, EOMI. ABSENT: nystagmus, scleral icterus Mouth exam: PRESENT: dry mucosa, neck supple, tongue midline Neck exam: PRESENT: tracheostomy. ABSENT: carotid bruit, JVD, lymphadenopathy, thyromegaly, tracheal deviation Respiratory exam: PRESENT: decreased breath sounds, prolonged expiratory phas, rales, rhonchi, unlabored, wheezes. ABSENT: retraction, stridor, tachypnea Cardiovascular exam: PRESENT: RRR, +S1 Pulses: PRESENT: normal radial pulses GI/Abdominal exam: PRESENT: soft, other - Feeding tube. ABSENT: tenderness Extremities exam: ABSENT: calf tenderness, clubbing, joint swelling Musculoskeletal exam: ABSENT: ambulatory, deformity, dislocation Neurological exam: PRESENT: altered, awake Skin exam: PRESENT: dry, warm Results Laboratory Results: 09/13/18 10:15 09/13/18 10:15 09/13/18 09/13/18 10:15 10:15 WBC 15.7 H RBC 3.04 L Hgb 8.3 L Hct 25.9 L MCV 85 MCH 27.3 MCHC 32.1 RDW 18.6 H Plt Count 416 Seg Neutrophils % 59.4 Lymphocytes % 28.0 Monocytes % 8.8 Eosinophils % 2.9 Basophils % 0.9 Absolute Neutrophils 9.4 H Absolute Lymphocytes 4.4 Absolute Monocytes 1.4 Absolute Eosinophils 0.5 Absolute Basophils 0.1 Sodium 147.2 H Potassium 3.7 Chloride 117 H Carbon Dioxide 18 L Anion Gap 12 BUN 69 H Creatinine 1.36 H Est GFR ( Amer) 45 L Est GFR (Non-Af Amer) 37 L Glucose 242 H Calcium 10.9 H Total Bilirubin 0.6 AST 27 ALT 13 Alkaline Phosphatase 93 Total Protein 8.1 Albumin 3.6 09/10/18 14:10 Tracheal Aspirate Gram Stain - Final 09/10/18 14:10 Tracheal Aspirate Sputum Culture - Final Pseudomonas Aeruginosa C.albicans/C.dubliniensis Normal Nan Absent Impressions: Chest X-Ray 09/11/18 00:00 IMPRESSION: Bibasilar opacities in left effusion. Aspiration complex in the differential. Assessment & Plan - Diagnosis (1) History of MRSA infection of lungs Is this a current diagnosis for this admission?: Yes Plan: Awaiting cultures (2) Pulmonary infiltrate Is this a current diagnosis for this admission?: Yes Plan: Waiting culture results (3) Debilitated patient Is this a current diagnosis for this admission?: Yes Plan: Bedbound trach PEG indwelling Palacios catheter (4) Decubitus ulcer, stage 3 Qualifiers: Pressure injury location: sacral region Qualified Code(s): L89.153 - Pressure ulcer of sacral region, stage 3 Is this a current diagnosis for this admission?: Yes Plan: Daily wound care (5) Dementia Qualifiers: Dementia type: unspecified type Dementia behavioral disturbance: without behavioral disturbance Qualified Code(s): F03.90 - Unspecified dementia without behavioral disturbance Is this a current diagnosis for this admission?: Yes Plan: Generic Name Dose Route Start Last Admin Trade Name Freq PRN Reason Stop Dose Admin Memantine 10 mg 09/08/18 21:00 09/09/18 11:12 Namenda 10 Mg Tablet PEG 10/08/18 20:59 10 mg DAILY CORRINA
--- NOTE | 2018-09-25 12:41 | PDOC PROGRESS REPORT ---
Subjective Progress Note for:: 09/13/18 Subjective:: Unresponsive Reason For Visit: SHORTNESS OF BREATH, INFILTRATE OF LUNG PRESENT ON Physical Exam Vital Signs: Temp Pulse Resp BP Pulse Ox 97.3 F 94 21 H 119/65 96 09/13/18 08:11 09/13/18 08:11 09/13/18 08:11 09/13/18 08:11 09/13/18 08:11 Intake & Output 09/12/18 09/13/18 09/14/18 06:59 06:59 06:59 Intake Total 330 2100 100 Output Total 950 1025 200 Balance -620 1075 -100 Weight 75.3 kg 75.7 kg General appearance: PRESENT: no acute distress, disheveled, well-developed, well-nourished. ABSENT: cooperative Head exam: PRESENT: atraumatic Eye exam: PRESENT: conjunctiva pale, EOMI. ABSENT: nystagmus, scleral icterus Mouth exam: PRESENT: dry mucosa, neck supple, tongue midline Neck exam: PRESENT: tracheostomy. ABSENT: carotid bruit, JVD, lymphadenopathy, thyromegaly, tracheal deviation Respiratory exam: PRESENT: decreased breath sounds, prolonged expiratory phas, rales, rhonchi, symmetrical, unlabored, wheezes. ABSENT: retraction, stridor Cardiovascular exam: PRESENT: +S1, +S2 Pulses: PRESENT: normal carotid pulses GI/Abdominal exam: PRESENT: soft, other - Feeding tube. ABSENT: tenderness Extremities exam: PRESENT: pedal edema. ABSENT: calf tenderness, clubbing, j oint swelling Musculoskeletal exam: ABSENT: deformity, dislocation Neurological exam: PRESENT: altered, awake Skin exam: PRESENT: dry, warm Results Laboratory Results: 09/13/18 10:15 09/13/18 10:15 09/13/18 09/13/18 10:15 10:15 WBC 15.7 H RBC 3.04 L Hgb 8.3 L Hct 25.9 L MCV 85 MCH 27.3 MCHC 32.1 RDW 18.6 H Plt Count 416 Seg Neutrophils % 59.4 Lymphocytes % 28.0 Monocytes % 8.8 Eosinophils % 2.9 Basophils % 0.9 Absolute Neutrophils 9.4 H Absolute Lymphocytes 4.4 Absolute Monocytes 1.4 Absolute Eosinophils 0.5 Absolute Basophils 0.1 Sodium 147.2 H Potassium 3.7 Chloride 117 H Carbon Dioxide 18 L Anion Gap 12 BUN 69 H Creatinine 1.36 H Est GFR ( Amer) 45 L Est GFR (Non-Af Amer) 37 L Glucose 242 H Calcium 10.9 H Total Bilirubin 0.6 AST 27 ALT 13 Alkaline Phosphatase 93 Total Protein 8.1 Albumin 3.6 09/10/18 14:10 Tracheal Aspirate Gram Stain - Final 09/10/18 14:10 Tracheal Aspirate Sputum Culture - Final Pseudomonas Aeruginosa C.albicans/C.dubliniensis Normal Nan Absent Impressions: Chest X-Ray 09/11/18 00:00 IMPRESSION: Bibasilar opacities in left effusion. Aspiration complex in the differential. Assessment & Plan - Diagnosis (1) History of MRSA infection of lungs Is this a current diagnosis for this admission?: Yes Plan: Awaiting cultures (2) Pulmonary infiltrate Is this a current diagnosis for this admission?: Yes Plan: Waiting culture results (3) Debilitated patient Is this a current diagnosis for this admission?: Yes Plan: Bedbound trach PEG indwelling Palacios catheter (4) Decubitus ulcer, stage 3 Qualifiers: Pressure injury location: sacral region Qualified Code(s): L89.153 - Pressure ulcer of sacral region, stage 3 Is this a current diagnosis for this admission?: Yes Plan: Daily wound care (5) Dementia Qualifiers: Dementia type: unspecified type Dementia behavioral disturbance: without behavioral disturbance Qualified Code(s): F03.90 - Unspecified dementia without behavioral disturbance Is this a current diagnosis for this admission?: Yes Plan: Generic Name Dose Route Start Last Admin Trade Name Teresita PRN Reason Stop Dose Admin Memantine 10 mg 09/08/18 21:00 09/09/18 11:12 Namenda 10 Mg Tablet PEG 10/08/18 20:59 10 mg DAILY CORRINA
--- NOTE | 2018-09-25 12:44 | PDOC PROGRESS REPORT ---
Subjective Progress Note for:: 09/14/18 Subjective:: Unresponsive Reason For Visit: SHORTNESS OF BREATH, INFILTRATE OF LUNG PRESENT ON Physical Exam Vital Signs: Temp Pulse Resp BP Pulse Ox 98.9 F 86 19 120/60 98 09/15/18 15:07 09/15/18 15:07 09/15/18 15:07 09/15/18 15:07 09/15/18 15:07 General appearance: PRESENT: no acute distress, disheveled. ABSENT: cooperative Head exam: PRESENT: atraumatic, normocephalic Eye exam: PRESENT: conjunctiva pale. ABSENT: nystagmus, scleral icterus Mouth exam: PRESENT: dry mucosa, neck supple, tongue midline Neck exam: PRESENT: tracheostomy. ABSENT: carotid bruit, JVD, lymphadenopathy, thyromegaly, tracheal deviation Respiratory exam: PRESENT: decreased breath sounds, prolonged expiratory phas, rales, rhonchi, unlabored, wheezes. ABSENT: retraction, stridor, tachypnea Cardiovascular exam: PRESENT: RRR, +S1, +S2 Pulses: PRESENT: normal radial pulses GI/Abdominal exam: PRESENT: soft, other - feeding tube. ABSENT: tenderness Extremities exam: PRESENT: pedal edema. ABSENT: calf tenderness, clubbing, joint swelling Musculoskeletal exam: ABSENT: ambulatory, deformity, dislocation Neurological exam: PRESENT: altered, awake Focused psych exam: PRESENT: paranoid Skin exam: PRESENT: dry, warm, other - Multiple decubitus Results Laboratory Results: 09/14/18 15:55 09/14/18 15:25 Impressions: Chest X-Ray 09/11/18 00:00 IMPRESSION: Bibasilar opacities in left effusion. Aspiration complex in the differential. Assessment & Plan - Diagnosis (1) History of MRSA infection of lungs Is this a current diagnosis for this admission?: Yes Plan: Awaiting cultures (2) Pulmonary infiltrate Is this a current diagnosis for this admission?: Yes Plan: Waiting culture results (3) Debilitated patient Is this a current diagnosis for this admission?: Yes Plan: Bedbound trach PEG indwelling Palacios catheter (4) Decubitus ulcer, stage 3 Qualifiers: Pressure injury location: sacral region Qualified Code(s): L89.153 - Pressure ulcer of sacral region, stage 3 Is this a current diagnosis for this admission?: Yes Plan: Daily wound care (5) Dementia Qualifiers: Dementia type: unspecified type Dementia behavioral disturbance: without behavioral disturbance Qualified Code(s): F03.90 - Unspecified dementia without behavioral disturbance Is this a current diagnosis for this admission?: Yes Plan: Generic Name Dose Route Start Last Admin Trade Name Freq PRN Reason Stop Dose Admin Memantine 10 mg 09/08/18 21:00 09/09/18 11:12 Namenda 10 Mg Tablet PEG 10/08/18 20:59 10 mg DAILY CORRINA
--- NOTE | 2018-09-25 12:46 | PDOC PROGRESS REPORT ---
Subjective Progress Note for:: 09/15/18 Subjective:: Unresponsive Reason For Visit: SHORTNESS OF BREATH, INFILTRATE OF LUNG PRESENT ON Physical Exam Vital Signs: Temp Pulse Resp BP Pulse Ox 98.9 F 86 19 120/60 98 09/15/18 15:07 09/15/18 15:07 09/15/18 15:07 09/15/18 15:07 09/15/18 15:07 General appearance: PRESENT: no acute distress, disheveled Head exam: PRESENT: atraumatic, normocephalic Eye exam: PRESENT: conjunctiva pale. ABSENT: nystagmus, scleral icterus Mouth exam: PRESENT: dry mucosa, neck supple, tongue midline Teeth exam: PRESENT: poor dentation Neck exam: PRESENT: tracheostomy. ABSENT: carotid bruit, JVD, lymphadenopathy, thyromegaly, tracheal deviation Respiratory exam: PRESENT: decreased breath sounds, prolonged expiratory phas, rales, rhonchi, unlabored, wheezes. ABSENT: retraction, stridor, tachypnea Cardiovascular exam: PRESENT: RRR, +S1, +S2 Pulses: PRESENT: normal radial pulses GI/Abdominal exam: PRESENT: soft, other - feeding tube. ABSENT: tenderness Extremities exam: PRESENT: tenderness. ABSENT: calf tenderness, clubbing, joint swelling Musculoskeletal exam: ABSENT: ambulatory, deformity, dislocation Neurological exam: PRESENT: altered, awake Skin exam: PRESENT: dry, warm, other - Multiple decubiti Results Laboratory Results: 09/14/18 15:55 09/14/18 15:25 Impressions: Chest X-Ray 09/11/18 00:00 IMPRESSION: Bibasilar opacities in left effusion. Aspiration complex in the differential. Assessment & Plan - Diagnosis (1) History of MRSA infection of lungs Is this a current diagnosis for this admission?: Yes Plan: Awaiting cultures (2) Pulmonary infiltrate Is this a current diagnosis for this admission?: Yes Plan: Waiting culture results (3) Debilitated patient Is this a current diagnosis for this admission?: Yes Plan: Bedbound trach PEG indwelling Palacios catheter (4) Decubitus ulcer, stage 3 Qualifiers: Pressure injury location: sacral region Qualified Code(s): L89.153 - Pressure ulcer of sacral region, stage 3 Is this a current diagnosis for this admission?: Yes Plan: Daily wound care (5) Dementia Qualifiers: Dementia type: unspecified type Dementia behavioral disturbance: without behavioral disturbance Qualified Code(s): F03.90 - Unspecified dementia without behavioral disturbance Is this a current diagnosis for this admission?: Yes Plan: Generic Name Dose Route Start Last Admin Trade Name Freq PRN Reason Stop Dose Admin Memantine 10 mg 09/08/18 21:00 09/09/18 11:12 Namenda 10 Mg Tablet PEG 10/08/18 20:59 10 mg DAILY CORRINA
== END 2018-09-15 16:10 | disposition home health service (06) | DRG 207 ==
LOC: ER 13:28 → EH 15:40 → 3S 18:17
PROVIDERS: ADMIT Internal Medicine; ATTEND Internal Medicine
PROC: 5A1955Z Respiratory Ventilation, Greater than 96 Consecutive Hours (ICD-10-PCS; principal; 2018-09-08)
PROC: 30233N1 Transfusion of Nonautologous Red Blood Cells into Peripheral Vein, Percutaneous Approach (ICD-10-PCS; 2018-09-15)
DX: J95.851 Ventilator associated pneumonia (principal); L89.153 Pressure ulcer of sacral region, stage 3; T83.511A Infection and inflammatory reaction due to indwelling urethral catheter, initial encounter; J95.850 Mechanical complication of respirator; N39.0 Urinary tract infection, site not specified; Z99.11 Dependence on respirator [ventilator] status; E87.0 Hyperosmolality and hypernatremia; J96.11 Chronic respiratory failure with hypoxia; J96.12 Chronic respiratory failure with hypercapnia; B96.5 Pseudomonas (aeruginosa) (mallei) (pseudomallei) as the cause of diseases classified elsewhere; D64.9 Anemia, unspecified; E21.3 Hyperparathyroidism, unspecified; F03.90 Unspecified dementia, unspecified severity, without behavioral disturbance, psychotic disturbance, mood disturbance, and anxiety; Z74.01 Bed confinement status; E78.5 Hyperlipidemia, unspecified; E11.51 Type 2 diabetes mellitus with diabetic peripheral angiopathy without gangrene; J44.9 Chronic obstructive pulmonary disease, unspecified; I11.0 Hypertensive heart disease with heart failure; I50.9 Heart failure, unspecified; Y84.6 Urinary catheterization as the cause of abnormal reaction of the patient, or of later complication, without mention of misadventure at the time of the procedure; E11.42 Type 2 diabetes mellitus with diabetic polyneuropathy; Z86.718 Personal history of other venous thrombosis and embolism; Z86.14 Personal history of Methicillin resistant Staphylococcus aureus infection; Z89.511 Acquired absence of right leg below knee; Z79.82 Long term (current) use of aspirin; Z79.4 Long term (current) use of insulin; Z79.899 Other long term (current) drug therapy; Z96.641 Presence of right artificial hip joint; Z93.1 Gastrostomy status; Z95.5 Presence of coronary angioplasty implant and graft; Z88.8 Allergy status to other drugs, medicaments and biological substances; Z88.3 Allergy status to other anti-infective agents; Z93.0 Tracheostomy status; Z87.01 Personal history of pneumonia (recurrent)
CPT/HCPCS: 36415; 36430; 36600; 71045; 80048; 80053; 81001; 82803; 82962; 83735; 85025; 86850; 86900; 86901; 86920; 87070; 87077; 87186; 87205; 93005; 93010; 94002; 94003; 94640; 99285; J0743; J1815; J1940; J2543; J3370; J3490; J7060; J7685; P9016; S0119

== ENCOUNTER 2018-09-20 12:50 | Emergency (ER) | payer MEDICARE, MEDICAID ==
--- NOTE | 2018-09-20 13:46 | ER Document Report ---
ED General - General Mode of Arrival: Medic Information source: Relative TRAVEL OUTSIDE OF THE [place] IN LAST 30 DAYS: No <MERY STAUFFER - Last Filed: 09/20/18 16:17> <TRISTEN DE JESUS - Last Filed: 09/20/18 16:57> - General Chief Complaint: Irregular Pulse Stated Complaint: LOW HEART RATE Time Seen by Provider: 09/20/18 13:30 Notes: Patient is an 82-year-old female chronically on ventilator, with G-tube presents to the emergency department accompanied by her daughter complaining of bradycardia onset 3 days ago. Daughter states that the patient was discharged from the hospital on 09/15/2018 for an upper respiratory infection. She states she was subsequently prescribed Tobramycin and Mucomist but was unable to fill the Tobramycin. She states 3 days ago, the patient's heart rate began to intermittently decrease with the lowest being 41bpm yesterday. She states this is abnormal due to the patient's heart rate normally being in the 80s. She states the patient's blood pressure was also lower than normal. She states she c alled the patient's PCP, Dr. Higgins, who recommended the patient come to the emergency department. Daughter also complains of abdominal pain. (MERY STAUFFER) - Related Data Allergies/Adverse Reactions: alprazolam [From Xanax] Allergy (Verified 03/07/18 09:34) iodine [Iodine] Allergy (Verified 03/07/18 09:34) quetiapine fumarate [From Seroquel] Allergy (Verified 03/07/18 09:34) Past Medical History - General Information source: Patient - Social History Smoking Status: Unknown if Ever Smoked Frequency of alcohol use: None Family History: Reviewed & Not Pertinent Patient has suicidal ideation: No Patient has homicidal ideation: No - Past Medical History Cardiac Medical History: Reports: Hx Congestive Heart Failure, Hx DVT, Hx Hypercholesterolemia, Hx Hypertension, Hx Peripheral Vascular Disease, Hx Pulmonary Embolism Pulmonary Medical History: Reports: Hx COPD, Hx Pneumonia - aspiration Endocrine Medical History: Reports: Hx Diabetes Mellitus Type 1, Hx Diabetes Mellitus Type 2 Psychiatric Medical History: Reports: Hx Dementia Infectious Medical History: Reports: Hx C-Diff, Hx MRSA, Hx VRE Past Surgical History: Reports: Hx Abdominal Surgery - GI tube, Hx Bowel Surgery, Hx Cardiac Surgery - stents, Hx Orthopedic Surgery - Shoulder. 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 - Immunizations Hx Diphtheria, Pertussis, Tetanus Vaccination: Yes <MERY STAUFFER - Last Filed: 09/20/18 16:17> Review of Systems - Review of Systems Constitutional: No symptoms reported EENT: No symptoms reported Cardiovascular: See HPI Respiratory: No symptoms reported Gastrointestinal: See HPI, Abdominal pain Genitourinary: No symptoms reported Female Genitourinary: No symptoms reported Musculoskeletal: No symptoms reported Skin: No symptoms reported Hematologic/Lymphatic: No symptoms reported Neurological/Psychological: No symptoms reported -: Yes All other systems reviewed and negative <MERY STAUFFER - Last Filed: 09/20/18 16:17> Physical Exam <MERY STAUFFER - Last Filed: 09/20/18 16:17> - Vital signs Vitals: Temp Resp BP Pulse Ox 99.0 F 14 155/79 H 100 09/20/18 12:59 09/20/18 12:59 09/20/18 12:59 09/20/18 12:59 - Notes Notes: GENERAL: Alert, interacts well. No acute distress. HEAD: Normocephalic, atraumatic. EYES: Pupils equal, round, and reactive to light. Extraocular movements intact. ENT: Oral mucosa moist, tongue midline. NECK: Full range of motion. Supple. Trachea midline. LUNGS: Tracheostomy. No respiratory distress. HEART: Heart rate 70, blood pressure 163/67. No murmurs, gallops, or rubs. ABDOMEN: G tube in place, soft, non-tender. Non-distended. Bowel sounds present in all 4 quadrants. EXTREMITIES: Moves all 4 extremities spontaneously. Right BKA. NEUROLOGICAL: Alert, at baseline. PSYCH: Normal affect, normal mood. SKIN: Warm, dry, normal turgor. No rashes or lesions noted. (MERY STAUFFER) Course - Laboratory Result Diagrams: 09/20/18 14:00 09/20/18 14:00 <MERY STAUFFER - Last Filed: 09/20/18 16:17> - Laboratory Result Diagrams: 09/20/18 14:00 09/20/18 14:00 - Diagnostic Test Radiology reviewed: Image reviewed, Reports reviewed - Chest x-ray does not show the infiltrates seen back on 09/03/2018. There is no acute process at this time. - EKG Interpretation by Me EKG shows normal: Sinus rhythm, [place], Intervals, QRS Complexes, ST-T Waves Rate: Normal - 70 [place]/QRS: IVCD Voltage: Consistant with LVH P Waves: LAE Heart block present: 1st Degree When compared to previous EKG there are: Changes noted - Consults Dr. Becker Consulted provider: other - Patient's case and findings were discussed. He ag taj that she most likely had Pseudomonas colonization, and does not really need the tobramycin nebulizer treatments. <TRISTEN DE JESUS - Last Filed: 09/20/18 16:57> - Re-evaluation Re-evalutation: 09/20/18 16:52 The patient's pulse has remained in the 60-70 range for the past 4 hours. Her blood pressure has been in the 130-160 range the entire time. She seems alert and smiling and has shown no signs of any distress. Her pulse ox has remained 100% on her ventilator. (TRISTEN DE JESUS) - Vital Signs Vital signs: Temp Pulse Resp BP Pulse Ox 99.0 F 21 H 130/69 H 99 09/20/18 12:59 09/20/18 16:01 09/20/18 16:01 09/20/18 16:01 - Laboratory Laboratory results interpreted by me: 09/20/18 09/20/18 14:00 14:00 Hgb 11.7 L Hct 34.7 L RDW 17.2 H Plt Count 469 H Eosinophils % 12.2 H Absolute Eosinophils 1.3 H BUN 66 H Est GFR ( Amer) 53 L Est GFR (Non-Af Amer) 44 L Glucose 118 H Calcium 11.3 H AST 39 H Creatine Kinase < 20 L Total Protein 8.4 H Discharge <MERY STAUFFER - Last Filed: 09/20/18 16:17> <TRISTEN DE JESUS - Last Filed: 09/20/18 16:57> - Discharge Clinical Impression: Ventilator dependent COPD, Relative bradycardia, History of hypotension, Pseudomonas aeruginosa colonization Condition: Stable Disposition: HOME, SELF-CARE Additional Instructions: There was no explanation found today for why the heart rate has now consistently stayed in the 60-65 range. The blood pressure has stayed in the 130-160 range for the last 4 hours. The chest x-ray does not show pneumonia at this time, the laboratory work is unremarkable. She most likely had Pseudomonas colonization of the tracheal aspirate and the urine and this does not require the tobramycin breathing treatments. Continue your regular medications. Increase the amount of water being given in the feeding tube. Follow-up with Dr. Becker. RETURN TO THE EMERGENCY ROOM IF ANY NEW OR WORSENING SYMPTOMS. Referrals: BAKARI BECKER MD [Primary Care Provider] - Follow up as needed Scribe Attestation: 09/20/18 14:39 I personally performed the services described in the documentation, reviewed and edited the documentation which was dictated to the scribe in my presence, and it accurately records my words and actions. (TRISTEN DE JESUS) Scribe Documentation - Scribe Written by [email or web address]:: Miguel Ángel Sawant, 09/20/2018 13:54 acting as scribe for :: Wayne <MERY STAUFFER - Last Filed: 09/20/18 16:17>
[2018-09-20 14:16] LABS: ABSOLUTE BASOPHILS # (AUTO) 0.2 10^3/uL (0.0-0.2); ABSOLUTE EOSINOPHILS # (AUTO) 1.3 10^3/uL (0.0-0.6); ABSOLUTE LYMPHOCYTES (AUTO) 3.6 10^3/uL (0.5-4.7); ABSOLUTE MONOCYTES (AUTO) 0.9 10^3/uL (0.1-1.4); ABSOLUTE NEUT (AUTO) 4.5 10^3/uL (1.7-8.2); BASOPHILS % (AUTO) 1.9 % (0-2); EOSINOPHILS % (AUTO) 12.2 % (0-6); HEMATOCRIT 34.7 % (36.0-47.0); HEMOGLOBIN 11.7 g/dL (12.0-15.5); LYMPHOCYTES % (AUTO) 34.3 % (13-45); MEAN CORPUSCULAR HEMOGLOBIN 28.5 pg (27.0-33.4); MEAN CORPUSCULAR HGB CONC 33.6 g/dL (32.0-36.0); MEAN CORPUSCULAR VOLUME 85 fl (80-97); MONOCYTES % (AUTO) 8.4 % (3-13); PLATELET COUNT 469 10^3/uL (150-450); RED BLOOD COUNT 4.08 10^6/uL (3.72-5.28); RED CELL DISTRIBUTION WIDTH 17.2 % (11.5-14.0); SEGMENTED NEUTROPHILS % (AUTO) 43.2 % (42-78); TOTAL CELLS COUNTED % (AUTO) 100 %; WHITE BLOOD COUNT 10.4 10^3/uL (4.0-10.5)
[2018-09-20 14:30] LABS: ALANINE AMINOTRANSFERASE 30 U/L (9-52); ALBUMIN 3.9 g/dL (3.5-5.0); ALKALINE PHOSPHATASE 113 U/L (38-126); ANION GAP 9 (5-19); ASPARTATE AMINO TRANSFERASE 39 U/L (14-36); BILIRUBIN,DIRECT 0.3 mg/dL (0.0-0.4); BILIRUBIN,TOTAL 0.4 mg/dL (0.2-1.3); BLOOD UREA NITROGEN 66 mg/dL (7-20); CALCIUM 11.3 mg/dL (8.4-10.2); CARBON DIOXIDE 25 mmol/L (22-30); CHLORIDE 103 mmol/L (98-107); CREATINE KINASE < 20 U/L (30-135); GLUCOSE 118 mg/dL (75-110); POTASSIUM 4.4 mmol/L (3.6-5.0); SODIUM 137.4 mmol/L (137-145); TOTAL PROTEIN 8.4 g/dL (6.3-8.2)
[2018-09-20 14:40] LABS: CREATINE KINASE MB 0.79 ng/mL (<4.55); TROPONIN I 0.019 ng/mL
--- NOTE | 2018-09-20 14:45 | RADIOLOGY REPORT (SQ) ---
EXAM DESCRIPTION: CHEST SINGLE VIEW COMPLETED DATE/TIME: 09/20/2018 2:35 pm REASON FOR STUDY: bradycardia COMPARISON: 09/11/2018 EXAM PARAMETERS: NUMBER OF VIEWS: One view. TECHNIQUE: Single frontal radiographic view of the chest acquired. RADIATION DOSE: NA LIMITATIONS: None. FINDINGS: LUNGS AND PLEURA: Persistent bibasilar parenchymal opacities. Possible small left effusio n. MEDIASTINUM AND HILAR STRUCTURES: No masses. Contour normal. HEART AND VASCULAR STRUCTURES: Heart normal in size. Normal vasculature. BONES: No acute findings. HARDWARE: Tracheostomy tube. OTHER: No other significant finding. IMPRESSION: Persistent bibasilar parenchymal opacities with small left effusion. No significant int erval. TECHNICAL DOCUMENTATION: JOB ID: [id number] [employer]- All Rights Reserved Reading location - IP/workstation name: [email or web address]
[2018-09-20 14:48] LABS: AMORPHOUS SEDIMENT,URINE TRACE /HPF; APPEARANCE,URINE CLEAR; BILIRUBIN,URINE NEGATIVE (NEGATIVE); COLOR,URINE STRAW; GLUCOSE, URINE NEGATIVE (NEGATIVE); KETONES,URINE NEGATIVE (NEGATIVE); LEUKOCYTE ESTERASE,URINE NEGATIVE (NEGATIVE); NITRITE,URINE NEGATIVE (NEGATIVE); PROTEIN,URINE NEGATIVE (NEGATIVE); URINE SPECIFIC GRAVITY 1.005; UROBILINOGEN,URINE NEGATIVE mg/dL (<2.0)
[2018-09-20 16:34] VITALS: BP 130/69
--- NOTE | 2018-09-20 19:11 | EKG REPORT ---
SEVERITY:- ABNORMAL ECG - SINUS RHYTHM FIRST DEGREE AV BLOCK PROBABLE LEFT ATRIAL ABNORMALITY NONSPECIFIC INTRAVENTRICULAR CONDUCTION DELAY LVH WITH SECONDARY REPOLARIZATION ABNORMALITY : Confirmed by: Mirella Marrero 20-Sep-2018 19:09:24
== END 2018-09-20 17:27 | disposition home or self-care (01) ==
LOC: ER 12:50
DX: J44.9 Chronic obstructive pulmonary disease, unspecified (principal); Z99.11 Dependence on respirator [ventilator] status; R00.1 Bradycardia, unspecified; Z22.39 Carrier of other specified bacterial diseases; Z93.1 Gastrostomy status; Z88.8 Allergy status to other drugs, medicaments and biological substances; Z88.3 Allergy status to other anti-infective agents; I11.0 Hypertensive heart disease with heart failure; I50.9 Heart failure, unspecified; E11.9 Type 2 diabetes mellitus without complications
CPT/HCPCS: 36415; 71045; 80053; 81001; 82550; 82553; 83605; 84484; 85025; 87040; 87077; 87186; 93005; 93010; 99285

== ENCOUNTER 2018-11-02 20:44 | Emergency (ER) | payer MEDICARE, MEDICAID ==
--- NOTE | 2018-11-02 21:52 | RADIOLOGY REPORT (SQ) ---
EXAM DESCRIPTION: XR ABDOMEN 1 VIEW (KUB) COMPLETED DATE/TME: 11/02/2018 00:00 CLINICAL HISTORY: 83 years, Female, ABD PAIN PER DR BECKER COMPARISON: 09/06/2018 abdomen NUMBER OF VIEWS: 1 TECHNIQUE: AP abdomen LIMITATIONS: None. FINDINGS: Osteopenia. The bowel gas pattern is nonspecific. Curvilinear density projects over the left upper quadrant. This could reflect a portion of feeding tube or drain. Endovascular stent grafts are present. Left hip prosthesis. Osteopenia. Evaluation for free air limited on a supine view. Nondilated air-filled loops of large and small bowel. Vascular calcifications. IMPRESSION: Curvilinear density in the left upper quadrant could reflect a portion of feeding tube or drainage catheter, correlate with history. Nonspecific bowel gas pattern. copyright 2010 [employer]- All Rights Reserved
--- NOTE | 2018-11-02 22:00 | ER Document Report ---
ED General - General Chief Complaint: Abdominal Pain Stated Complaint: STOMACH PAIN Time Seen by Provider: 11/02/18 21:34 Primary Care Provider: BAKARI BECKER MD [Primary Care Provider] - Follow up as needed Mode of Arrival: Medic Information source: Relative, [facility] Records Cannot obtain history due to: Dementia Notes: 83-year-old female with congestive heart failure, peripheral vascular disease, hyperlipidemia, COPD, dementia with trach and feeding tube in place presents via EMS from home with her daughter who is the primary engineering inspection assistant for a KUB that was ordered by the patient's primary care physician Dr. Becker. Daughter reports that the patient's home health nurse stated that she was concerned for a bowel obstruction. After several phone calls to the patient's primary care physician patient was advised to come to the hospital for imaging. Unclear whether the patient was supposed to be checked into the hospital or just taken to radiology. Daughter reports that the patient is having bowel movements, is passing gas and had no episodes of vomiting. TRAVEL OUTSIDE OF THE [place] IN LAST 30 DAYS: No - Related Data Allergies/Adverse Reactions: alprazolam [From Xanax] Allergy (Verified 03/07/18 09:34) iodine [Iodine] Allergy (Verified 03/07/18 09:34) quetiapine fumarate [From Seroquel] Allergy (Verified 03/07/18 09:34) Past Medical History - General Information source: Relative, [facility] Records Cannot obtain history due to: Dementia - Social History Smoking Status: Never Smoker Frequency of alcohol use: None Drug Abuse: None Lives with: Family Family History: Reviewed & Not Pertinent Patient has suicidal ideation: No Patient has homicidal ideation: No - Past Medical History Cardiac Medical History: Reports: Hx Congestive Heart Failure, Hx DVT, Hx Hypercholesterolemia, Hx Hypertension, Hx Peripheral Vascular Disease, Hx Pulmonary Embolism Pulmonary Medical History: Reports: Hx COPD, Hx Pneumonia - aspiration Endocrine Medical History: Reports: Hx Diabetes Mellitus Type 1, Hx Diabetes Mellitus Type 2 Renal/ Medical History: Denies: Hx Peritoneal Dialysis Psychiatric Medical History: Reports: Hx Dementia Denies: Hx Depression Infectious Medical History: Reports: Hx C-Diff, Hx MRSA, Hx VRE Past Surgical History: Reports: Hx Abdominal Surgery - GI tube, Hx Bowel Surgery, Hx Cardiac Surgery - stents, Hx Orthopedic Surgery - Shoulder. 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 - Immunizations Hx Diphtheria, Pertussis, Tetanus Vaccination: Yes Review of Systems - Review of Systems -: Yes ROS unobtainable due to patient's medical condition Physical Exam - Vital signs Vitals: Temp Pulse Resp BP Pulse Ox 98.2 F 83 16 143/63 H 96 11/02/18 20:50 11/02/18 20:50 11/02/18 20:50 11/02/18 20:50 11/02/18 20:50 - Notes Notes: PHYSICAL EXAMINATION: GENERAL: Frail, cachectic HEAD: Atraumatic, normocephalic. EYES: Pupils equal round and reactive to light, extraocular movements intact, conjunctiva are normal. ENT: Nares patent, oropharynx clear without exudates. Dry mucous membranes. NECK: Normal range of motion, supple without lymphadenopathy tracheostomy in place. LUNGS: Breath sounds clear to auscultation bilaterally and equal. No wheezes rales or rhonchi. HEART: Regular rate and rhythm without murmurs ABDOMEN: Soft, nontender, nondistended abdomen. No guarding, no rebound. No masses appreciated. PEG tube in place without associated erythema. Female : deferred Musculoskeletal: no pitting or edema. No cyanosis. NEUROLOGICAL: Severe dementia does not follow commands PSYCH: Severe dementia and is nonverbal SKIN: Warm, Dry, normal turgor, no rashes or lesions noted. Course - Re-evaluation Re-evalutation: KUB X-Ray 11/02/18 00:00 IMPRESSION: Curvilinear density in the left upper quadrant could reflect a portion of feeding tube or drainage catheter, correlate with history. Nonspecific bowel gas pattern. copyright 2010 [employer]- All Rights Reserved 11/03/18 02:30 83-year-old female presents via EMS upon the home health aides insistent that the patient had a bowel obstruction. Daughter reports that the patient's primary care physician Dr. Becker sent them to the hospital for a KUB. Patient has not had any reported emesis. Daughter reports that the patient has had small bowel movements and is passing gas. Daughter reports that the patient is very upset that she has to come back to the hospital. Is requesting that the x-ray be done as quick as possible. KUB was obtained and showed a nonspecific bowel gas pattern. Daughter is comfortable with discharge home. Patient was d ischarged home in stable condition with recommendations to follow-up with her primary care physician. - Vital Signs Vital signs: Temp Pulse Resp BP Pulse Ox 98.9 F 75 20 140/64 H 95 11/02/18 23:29 11/02/18 23:29 11/02/18 23:29 11/02/18 23:29 11/02/18 23:29 - Diagnostic Test Radiology reviewed: Image reviewed, Reports reviewed Discharge - Discharge Clinical Impression: Concern for bowel obstruction Condition: Good Disposition: HOME, SELF-CARE Instructions: Bowel Obstruction ([facility]) Forms: Elevated Blood Pressure Referrals: BAKARI BECKER MD [Primary Care Provider] - Follow up as needed
[2018-11-02 23:34] VITALS: BP 140/64
== END 2018-11-02 23:34 | disposition home or self-care (01) ==
LOC: ER 20:44
DX: R10.9 Unspecified abdominal pain (principal); I50.9 Heart failure, unspecified; E78.5 Hyperlipidemia, unspecified; J44.9 Chronic obstructive pulmonary disease, unspecified; F03.90 Unspecified dementia, unspecified severity, without behavioral disturbance, psychotic disturbance, mood disturbance, and anxiety; Z93.1 Gastrostomy status; Z86.718 Personal history of other venous thrombosis and embolism; E78.00 Pure hypercholesterolemia, unspecified; Z86.14 Personal history of Methicillin resistant Staphylococcus aureus infection; Z89.511 Acquired absence of right leg below knee; Z93.0 Tracheostomy status; Z96.641 Presence of right artificial hip joint
CPT/HCPCS: 74018; 99285

== ENCOUNTER → 2019-01-16 | Outpatient (CLI) | payer MEDICARE, MEDICAID ==
[2019-01-16 14:41] LABS: ABSOLUTE BASOPHILS # (AUTO) 0.1 10^3/uL (0.0-0.2); ABSOLUTE LYMPHOCYTES (AUTO) 3.2 10^3/uL (0.5-4.7); ABSOLUTE NEUT (AUTO) 5.4 10^3/uL (1.7-8.2); EOSINOPHILS % (AUTO) 9.7 % (0-6); HEMATOCRIT 29.8 % (36.0-47.0); HEMOGLOBIN 10.1 g/dL (12.0-15.5); LYMPHOCYTES % (AUTO) 29.7 % (13-45); MEAN CORPUSCULAR HEMOGLOBIN 31.1 pg (27.0-33.4); MEAN CORPUSCULAR HGB CONC 33.8 g/dL (32.0-36.0); MEAN CORPUSCULAR VOLUME 92 fl (80-97); MONOCYTES % (AUTO) 9.2 % (3-13); PLATELET COUNT 373 10^3/uL (150-450); RED BLOOD COUNT 3.24 10^6/uL (3.72-5.28); RED CELL DISTRIBUTION WIDTH 15.5 % (11.5-14.0); SEGMENTED NEUTROPHILS % (AUTO) 50.4 % (42-78); TOTAL CELLS COUNTED % (AUTO) 100 %; WHITE BLOOD COUNT 10.6 10^3/uL (4.0-10.5)
[2019-01-16 15:06] LABS: ALANINE AMINOTRANSFERASE 36 U/L (9-52); ALBUMIN 3.7 g/dL (3.5-5.0); ALKALINE PHOSPHATASE 105 U/L (38-126); ANION GAP 11 (5-19); ASPARTATE AMINO TRANSFERASE 34 U/L (14-36); BILIRUBIN,DIRECT 0.2 mg/dL (0.0-0.4); BILIRUBIN,TOTAL 0.4 mg/dL (0.2-1.3); C-REACTIVE PROTEIN 8.9 mg/L (<10.0); CALCIUM 11.5 mg/dL (8.4-10.2); CARBON DIOXIDE 19 mmol/L (22-30); CHLORIDE 105 mmol/L (98-107); GLUCOSE 118 mg/dL (75-110); POTASSIUM 5.5 mmol/L (3.6-5.0); SODIUM 135.3 mmol/L (137-145); TOTAL PROTEIN 7.9 g/dL (6.3-8.2)
--- NOTE | 2019-01-16 15:09 | RADIOLOGY REPORT (SQ) ---
EXAM DESCRIPTION: OS CALCIS/HEEL LEFT COMPLETED DATE/TIME: 01/16/2019 2:48 pm REASON FOR STUDY: L9.422 NON-PRS CHR ULCER OF LEFT HEEL AND MIDFOOT W FAT LAYER EXPOS L9.422 NON- PRS CHR ULCER OF LEFT HEEL AND MIDFOOT W FAT LAY E11.621 TYPE 2 DIABETES MELLITUS WITH FOOT ULCER COMPARISON: None. NUMBER OF VIEWS: Two views. TECHNIQUE: Plantar and oblique lateral images acquired of the left calcaneous. LIMITATIONS: Limited positioning. FINDINGS: MINERALIZATION: Patchy demineralization BONES: No acute fracture or dislocation. No worrisome bone lesions. JOINTS: No effusions. SOFT TISSUES: No soft tissue swelling. No foreign body. OTHER: No other significant finding. IMPRESSION: LIMITED STUDY. PATCHY DEMINERALIZATION. NO ACUTE FINDINGS. NO RADIOGRAPHIC FINDINGS T O INDICATE OSTEOMYELITIS. IF THERE IS STRONG CLINICAL CONCERN, MAY CONSIDER MRI OR THREE-PHASE BONE SCAN. TECHNICAL DOCUMENTATION: JOB ID: [id number] [employer]- All Rights Reserved Reading location - IP/workstation name: [email or web address]
[2019-01-16 15:14] LABS: BLOOD UREA NITROGEN 121 mg/dL (7-20)
[2019-01-16 15:20] LABS: ERYTHROCYTE SEDIMENTATION RATE 97 mm/hr (0-30)
== END ==
LOC: RAD 13:47
PROVIDERS: ATTEND Nurse Practitioner Family
DX: E11.621 Type 2 diabetes mellitus with foot ulcer (principal); L97.422 Non-pressure chronic ulcer of left heel and midfoot with fat layer exposed
CPT/HCPCS: 36415; 80053; 83036; 85025; 85652; 86140

== ENCOUNTER 2019-01-24 15:20 | Inpatient (IN) | payer MEDICARE, MEDICAID ==
--- NOTE | 2019-01-24 15:41 | ER Document Report ---
ED General - General Stated Complaint: FEVER Time Seen by Provider: 01/24/19 15:40 Notes: Patient is a 83-year-old female with history of chronic respiratory failure on ventilator and tracheostomy, PEG tube feedings that presents to the emergency department for chief complaint of leg redness, cough, and fever. History provided by the patient's daughters at bedside. Patient apparently has had a rash on her leg for the past few days, has been having a temperature of 100.2 F, her blood sugars have been more high recently, she is had increased mucus production and mucous plugs in her trach. She stated that there is redness and warmth to the left leg, and they are worried about possible infection. She was seen by home health nurse recently. She recently overall has not been feeling well, they tried adjusting her feet settings, and ratios and did increase the amount of tube feeds and water recently but that did not help so they switched her back to 50-50 from 7525. She has not had any vomiting, but has had nausea. Past Medical History: Chronic respiratory failure, on ventilator, C. difficile, hypertension Past Surgical History: PEG tube, hip ORIF, right below-knee amputation, tracheostomy Social History: Denies tobacco, alcohol or drug use. Family History: Reviewed and noncontributory for presenting illness Allergies: Reviewed, see documented allergy list. REVIEW OF SYSTEMS: Other than noted above, the 12 point review of systems was reviewed with the patient and were negative, all pertinent findings are included in the HPI. PHYSICAL EXAMINATION: Vital signs reviewed, nursing noted reviewed. GENERAL: Elderly, chronically ill-appearing female, on the ventilator, no respiratory distress HEAD: Atraumatic, normocephalic. EYES: Eyes appear normal, extraocular movements intact, sclera anicteric, conjunctiva are normal. ENT: nares patent, oropharynx clear without exudates. Moist mucous membranes. NECK: Normal range of motion, supple without lymphadenopathy, tracheostomy in place, [place] LUNGS: Coarse lung sounds bilaterally, on the ventilator, tolerating well. HEART: Regular rate and rhythm without murmurs ABDOMEN: Soft, nontender, normoactive bowel sounds. No rebound, guarding, or rigidity. No masses appreciated. PEG tube in place, no signs of erythema or gross infection. EXTREMITIES: Right below the knee amputation, there is noted to be erythema and warmth noted to the proximal left thigh, tender to palpate as well, no significant peripheral edema noted. NEUROLOGICAL: No focal neurological deficits. Moves all extremities spontaneously Motor and sensory grossly intact on exam. PSYCH: Normal mood, normal affect. SKIN: Warm, Dry, normal turgor, erythema, concerning for cellulitis in the right thigh. TRAVEL OUTSIDE OF THE [place] IN LAST 30 DAYS: No - Related Data Allergies/Adverse Reactions: alprazolam [From Xanax] Allergy (Verified 03/07/18 09:34) iodine [Iodine] Allergy (Verified 03/07/18 09:34) quetiapine fumarate [From Seroquel] Allergy (Verified 03/07/18 09:34) sertraline [From Zoloft] Allergy (Verified 01/24/19 20:16) metronidazole [From Flagyl] Adverse Reaction (Verified 01/24/19 20:16) Past Medical History - Social History Smoking Status: Never Smoker Family History: Reviewed & Not Pertinent - Past Medical History Cardiac Medical History: Reports: Hx Congestive Heart Failure, Hx DVT, Hx Hypercholesterolemia, Hx Hypertension, Hx Peripheral Vascular Disease, Hx Pulmonary Embolism Pulmonary Medical History: Reports: Hx COPD, Hx Pneumonia - aspiration Endocrine Medical History: Reports: Hx Diabetes Mellitus Type 1, Hx Diabetes M ellitus Type 2 Renal/ Medical History: Denies: Hx Peritoneal Dialysis Psychiatric Medical History: Reports: Hx Dementia Denies: Hx Depression Infectious Medical History: Reports: Hx C-Diff, Hx MRSA, Hx VRE Past Surgical History: Reports: Hx Abdominal Surgery - GI tube, Hx Bowel Surgery, Hx Cardiac Surgery - stents, Hx Orthopedic Surgery - Shoulder. 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 - Immunizations Hx Diphtheria, Pertussis, Tetanus Vaccination: Yes Physical Exam - Vital signs Vitals: Pulse Ox 97 01/24/19 15:40 Course - Re-evaluation Re-evalutation: Patient seen and examined vital signs reviewed. Laboratory data and imaging were ordered as appropriate for the patient's presenting symptoms and complaint, with consideration of any critical or life threatening conditions that may be associated with their obtained history and exam as noted above. Patient was treated with IV fluids, and started on IV antibiotics with vancomycin, given patient history of osteomyelitis. Results were reviewed when available and demonstrated market leukocytosis, her chest x-ray is not convincing of pneumonia, her UA, demonstrated bacteria, however patient has a chronic indwelling [place] catheter, and not convinced that this is the cause of her infection, but rather cellulitis in her left lower extremity. Her troponin was also slightly elevated, when compared with prior labs, this has been essentially chronic for her, she is not complaining of chest pain, not concerned about acute ischemia in this patient's case. The patient was re-evaluated and was stable, hemodynamically on the ventilator, which she has chronically on and on minimal settings. Evaluation was most consistent with sepsis, cellulitis, chronic respiratory failure Results were discussed with the patient at this point after careful consideration I feel that that patient should be admitted to the hospital. This was discussed with the patient that it is in the best interest for their care to be admitted for further evaluation and management. Patient agreed with this plan of care. A call was placed to the admitted physician, Dr. Christensen who graciously accepted the patient onto their service. *Note is created using voice recognition software and may contain spelling, syntax or grammatical errors. Laboratory 01/24/19 01/24/19 01/24/19 16:50 16:50 16:50 WBC 26.3 H RBC 3.09 L Hgb 9.4 L Hct 28.9 L MCV 94 MCH 30.3 MCHC 32.4 RDW 15.6 H Plt Count 352 Total Counted 100 Seg Neutrophils % Not Reportable Seg Neuts % (Manual) 83 H Lymphocytes % Not Reportable Lymphocytes % (Manual) 13 Monocytes % Not Reportable Monocytes % (Manual) 4 Eosinophils % Not Reportable Eosinophils % (Manual) 0 Basophils % Not Reportable Basophils % (Manual) 0 Absolute Neutrophils Not Reportable Abs Neuts (Manual) 21.8 H Absolute Lymphocytes Not Reportable Abs Lymphs (Manual) 3.4 Absolute Monocytes Not Reportable Abs Monocytes (Manual) 1.1 Absolute Eosinophils Not Reportable Absolute Eos (Manual) 0.0 Absolute Basophils Not Reportable Abs Basophils (Manual) 0.0 Platelet Comment ADEQUATE Polychromasia SLIGHT Anisocytosis SLIGHT PT 15.8 H INR 1.20 VBG pH VBG pCO2 VBG HCO3 VBG Base Excess Sodium 135.4 L Potassium 5.9 H Chloride 99 Carbon Dioxide 22 Anion Gap 14 BUN 130 H Creatinine 1.81 H Est GFR ( Amer) 32 L Est GFR (Non-Af Amer) 27 L Glucose 162 H Lactic Acid Calcium 10.9 H Total Bilirubin 0.5 Direct Bilirubin 0.3 Neonat Total Bilirubin Not Reportable Neonat Direct Bilirubin Not Reportable Neonat Indirect Bili Not Reportable AST 35 ALT 33 Alkaline Phosphatase 103 Troponin I Total Protein 7.6 Albumin 3.6 01/24/19 01/24/19 01/24/19 16:50 16:50 16:50 WBC RBC Hgb Hct MCV MCH MCHC RDW Plt Count Total Counted Seg Neutrophils % Seg Neuts % (Manual) Lymphocytes % Lymphocytes % (Manual) Monocytes % Monocytes % (Manual) Eosinophils % Eosinophils % (Manual) Basophils % Basophils % (Manual) Absolute Neutrophils Abs Neuts (Manual) Absolute Lymphocytes Abs Lymphs (Manual) Absolute Monocytes Abs Monocytes (Manual) Absolute Eosinophils Absolute Eos (Manual) Absolute Basophils Abs Basophils (Manual) Platelet Comment Polychromasia Anisocytosis PT INR VBG pH 7.38 VBG pCO2 37.6 VBG HCO3 21.9 VBG Base Excess -2.6 Sodium Potassium Chloride Carbon Dioxide Anion Gap BUN Creatinine Est GFR ( Amer) Est GFR (Non-Af Amer) Glucose Lactic Acid 1.0 Calcium Total Bilirubin Direct Bilirubin Neonat Total Bilirubin Neonat Direct Bilirubin Neonat Indirect Bili AST ALT Alkaline Phosphatase Troponin I 0.063 Total Protein Albumin Chest X-Ray 01/24/19 15:41 IMPRESSION: NO ACUTE RADIOGRAPHIC FINDING IN THE CHEST. - Vital Signs Vital signs: Temp Pulse Resp BP Pulse Ox 99.9 F 14 122/57 L 95 01/24/19 18:31 01/24/19 21:01 01/24/19 21:00 01/24/19 21:01 - Laboratory Result Diagrams: 01/24/19 16:50 01/24/19 20:58 Laboratory results interpreted by nc: 01/24/19 01/24/19 01/24/19 16:50 16:50 16:50 WBC 26.3 H RBC 3.09 L Hgb 9.4 L Hct 28.9 L RDW 15.6 H Seg Neuts % (Manual) 83 H Abs Neuts (Manual) 21.8 H PT 15.8 H Sodium 135.4 L Potassium 5.9 H BUN 130 H Creatinine 1.81 H Est GFR ( Amer) 32 L Est GFR (Non-Af Amer) 27 L Glucose 162 H Calcium 10.9 H - EKG Interpretation by Ak Additional EKG results interpreted by me: EKG demonstrated sinus tachycardia with left bundle branch block, with a ventricular rate of 100 bpm, left axis deviation, QTC 434 ms, no ST elevation, this is compared with prior EKG from 09/20/2018, without significant change. Critical Care Note - Critical Care Note Total time excluding time spent on procedures (mins): 35 Comments: Critical care time 35 minutes exclusive from separate billable procedures for a patient requiring complex medical decision making, and high potential for clinical deterioration. Time spent obtaining history from patient or surrogate, discussions with consultants, development of treatment plan with patient or surrogate, evaluation of patient's response to treatment, examination of patient, ordering and performing treatments and interventions, ordering and review of laboratory studies, re-evaluation of patient's condition, ordering and review of radiographic studies and review of old charts Discharge - Discharge Clinical Impression: Sepsis Qualifiers: Sepsis type: sepsis due to unspecified organism Qualified Code(s): A41.9 - Sepsis, unspecified organism Cellulitis Qualifiers: Site of cellulitis: extremity Site of cellulitis of extremity: lower extremity Laterality: left Qualified Code(s): L03.116 - Cellulitis of left lower limb Chronic respiratory failure Qualifiers: Respiratory failure complication: hypoxia Qualified Code(s): J96.11 - Chronic respiratory failure with hypoxia Leukocytosis Qualifiers: Leukocytosis type: unspecified Qualified Code(s): D72.829 - Elevated white blood cell count, unspecified Condition: Stable Disposition: ADMITTED INPATIENT Admitting Provider: [facility] Unit Admitted: ICU
[2019-01-24] MEDS ORDERED: PIPERACILLIN/TAZOBACTAM 3.375 GM VIAL IV ONE (15:58)
[2019-01-24] MEDS ORDERED: VANCOMYCIN HCL INJ 1000 MG VIAL IV ONE (15:58)
[2019-01-24] MEDS ORDERED: RINGERS SOLUTION,LACTATED 1,000 ML IV ONE (16:04)
--- NOTE | 2019-01-24 16:26 | RADIOLOGY REPORT (SQ) ---
EXAM DESCRIPTION: CHEST SINGLE VIEW COMPLETED DATE/TIME: 01/24/2019 3:53 pm REASON FOR STUDY: fever COMPARISON: Chest films 09/20/2018, 09/11/2018, 08/06/2018 EXAM PARAMETERS: NUMBER OF VIEWS: One view. TECHNIQUE: Single frontal radiographic view of the chest acquired. RADIATION DOSE: NA LIMITATIONS: None. FINDINGS: LUNGS AND PLEURA: Low lung volumes without acute infiltrates. No pleural effusion or pneu mothorax. MEDIASTINUM AND HILAR STRUCTURES: No masses. Contour normal. HEART AND VASCULAR STRUCTURES: Heart normal in size. Normal vasculature. BONES: No acute findings. HARDWARE: Tracheostomy tube tip in the upper trachea OTHER: No other significant finding. IMPRESSION: NO ACUTE RADIOGRAPHIC FINDING IN THE CHEST. TECHNICAL DOCUMENTATION: JOB ID: [id number] [employer]- All Rights Reserved Reading location - IP/workstation name: [email or web address]
[2019-01-24 17:20] LABS: VENOUS BLOOD BASE EXCESS -2.6 mmol/L; VENOUS BLOOD HCO3 21.9 mmol/L (20-32); VENOUS BLOOD PCO2 37.6 mmHg (35-63); VENOUS BLOOD PH 7.38 (7.30-7.42)
[2019-01-24 17:21] LABS: HEMATOCRIT 28.9 % (36.0-47.0); HEMOGLOBIN 9.4 g/dL (12.0-15.5); MEAN CORPUSCULAR HEMOGLOBIN 30.3 pg (27.0-33.4); MEAN CORPUSCULAR HGB CONC 32.4 g/dL (32.0-36.0); MEAN CORPUSCULAR VOLUME 94 fl (80-97); PLATELET COUNT 352 10^3/uL (150-450); RED BLOOD COUNT 3.09 10^6/uL (3.72-5.28); RED CELL DISTRIBUTION WIDTH 15.6 % (11.5-14.0); WHITE BLOOD COUNT 26.3 10^3/uL (4.0-10.5)
[2019-01-24 17:24] LABS: PROTHROMBIN TIME 15.8 SEC (11.4-15.4)
[2019-01-24 17:39] LABS: ALANINE AMINOTRANSFERASE 33 U/L (9-52); ALBUMIN 3.6 g/dL (3.5-5.0); ALKALINE PHOSPHATASE 103 U/L (38-126); ANION GAP 14 (5-19); ASPARTATE AMINO TRANSFERASE 35 U/L (14-36); BILIRUBIN,DIRECT 0.3 mg/dL (0.0-0.4); BILIRUBIN,TOTAL 0.5 mg/dL (0.2-1.3); CALCIUM 10.9 mg/dL (8.4-10.2); CARBON DIOXIDE 22 mmol/L (22-30); CHLORIDE 99 mmol/L (98-107); GLUCOSE 162 mg/dL (75-110); POTASSIUM 5.9 mmol/L (3.6-5.0); SODIUM 135.4 mmol/L (137-145); TOTAL PROTEIN 7.6 g/dL (6.3-8.2)
[2019-01-24 17:48] LABS: BLOOD UREA NITROGEN 130 mg/dL (7-20)
[2019-01-24] MEDS ORDERED: NORMAL SALINE 1000 ML 1,000 ML IV ONE (17:55)
[2019-01-24] MEDS ORDERED: CALCIUM GLUCONATE 1000 MG/10 ML INJ IV ONE ×3 (17:55→20:30)
[2019-01-24 17:58] LABS: ABSOLUTE LYMPHOCYTES# (MANUAL) 3.4 10^3/uL (0.5-4.7); ABSOLUTE MONOCYTES # (MANUAL) 1.1 10^3/uL (0.1-1.4); ABSOLUTE NEUTROPHILS# (MANUAL) 21.8 10^3/uL (1.7-8.2); BASOPHILS % (MANUAL) 0 % (0-2); EOSINOPHILS % (MANUAL) 0 % (0-6); LYMPHOCYTES % (MANUAL) 13 % (13-45); MONOCYTES % (MANUAL) 4 % (3-13); SEGMENTED NEUTROPHILS % (MAN) 83 % (42-78); TOTAL CELLS COUNTED 100
[2019-01-24 17:59] LABS: ANISOCYTOSIS SLIGHT; PLATELET COMMENT ADEQUATE; POLYCHROMASIA SLIGHT
[2019-01-24] MEDS ORDERED: SODIUM BICARBONATE 8.4% INJ 50 MEQ/50 ML DISP.SYRIN IV ONE ×2 (18:04→20:30)
[2019-01-24] MEDS ORDERED: IPRATROPIUM/ALBUTEROL 0.5-2.5 MG/3 ML AMPUL NEB ONE (19:19)
[2019-01-24 20:17] LABS: APPEARANCE,URINE CLEAR; BILIRUBIN,URINE NEGATIVE (NEGATIVE); COLOR,URINE YELLOW; GLUCOSE, URINE 50 mg/dL (NEGATIVE); KETONES,URINE NEGATIVE (NEGATIVE); LEUKOCYTE ESTERASE,URINE LARGE (NEGATIVE); NITRITE,URINE NEGATIVE (NEGATIVE); PROTEIN,URINE 30 mg/dL (NEGATIVE); URINE SPECIFIC GRAVITY 1.011; UROBILINOGEN,URINE NEGATIVE mg/dL (<2.0)
[2019-01-24] MEDS ORDERED: SODIUM BICARBONATE 8.4% INJ 50 MEQ/50 ML DISP.SYRIN ONE (20:27)
[2019-01-24 21:23] LABS: INTERNATIONAL RATION (INR) 1.33; PROTHROMBIN TIME 17.2 SEC (11.4-15.4)
[2019-01-24 21:24] LABS: PARTIAL THROMBOPLASTIN TIME 28.6 SEC (23.5-35.8)
[2019-01-24 21:33] LABS: ALANINE AMINOTRANSFERASE 40 U/L (9-52); ALBUMIN 2.8 g/dL (3.5-5.0); ALKALINE PHOSPHATASE 86 U/L (38-126); ANION GAP 10 (5-19); ASPARTATE AMINO TRANSFERASE 36 U/L (14-36); BILIRUBIN,DIRECT 0.4 mg/dL (0.0-0.4); BILIRUBIN,TOTAL 0.6 mg/dL (0.2-1.3); BLOOD UREA NITROGEN 113 mg/dL (7-20); CALCIUM 10.2 mg/dL (8.4-10.2); CARBON DIOXIDE 21 mmol/L (22-30); CHLORIDE 102 mmol/L (98-107); GLUCOSE 231 mg/dL (75-110); TOTAL PROTEIN 6.3 g/dL (6.3-8.2)
[2019-01-24 21:48] LABS: FREE T4 (FREE THYROXINE) 1.41 ng/dL (0.78-2.19)
[2019-01-24] MEDS: HEPARIN SOD (PORCINE) 5,000 UNIT/ML 1 ML SYRINGE SUBCUT SCH (22:00)
[2019-01-24 22:02] LABS: THYROID STIMULATING HORMONE 2.05 uIU/mL (0.47-4.68)
--- NOTE | 2019-01-24 22:50 | PDOC H&P ---
History of Present Illness Admission Date/PCP: 01/24/19 17:29 BAKARI BECKER MD History of Present Illness: BRIANA BRADY is a 83 year old female,Patient have history of chronic r espiratory failure on home oxygen,chronic romero indwelling romero catheter ,tube feeder,she was transferred to the ER for evaluation of redness of the left leg ,she is status post AKA of the right leg .She does not comminucate directly ,she has a tracheostomy ,history taking was very minimal. Past Medical History Cardiac Medical History: Reports: DVT, Hyperlipidema, Hypertension, Peripheral Vascular Disease, Pulmonary Embolism Pulmonary Medical History: Reports: Chronic Obstructive Pulmonary Disease (COPD), Pneumonia - aspiration Endocrine Medical History: Reports: Diabetes Mellitus Type 2 Psychiatric Medical History: Reports: Dementia Infectious Medical History: Reports: Clostridium Difficile, Methicillin- Resistant Staph Aureus, Vancomycin-Resistant Enterococci Past Surgical History Past Surgical History: Reports: Orthopedic Surgery - Shoulder. 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 Social History Smoking Status: Never Smoker Frequency of Alcohol Use: None Hx Recreational Drug Use: No Drugs: None Hx Prescription Drug Abuse: No Family History Family History: Reviewed & Not Pertinent Parental Family History Reviewed: Yes Children Family History Reviewed: Yes Sibling(s) Family History Reviewed.: Yes Medication/Allergy Home Medications: Insulin Aspart [Novolog Insulin (Aspart) 100 unit/mL] 0 unit SQ .SLIDING SCALE 01/24/19 Insulin Detemir [Levemir] 10 units SQ DAILY 01/24/19 Ipratropium/Albuterol Sulfate [Duoneb 3 ml Ampul] 3 ml NEB Q6 01/24/19 L.acidoph,Paracasei, B.lactis [Probiotic] 1 cap PEG DAILY 01/24/19 RX: Acetaminophen [Tylenol 325 mg Tablet] 325 mg PEG Q12HP PRN 01/24/19 RX: Ascorbic Acid [Vitamin C 500 mg Tablet] 500 mg PEG DAILY 01/24/19 RX: Aspirin [Ecotrin 81 mg EC Tablet] 81 mg PEG DAILY 01/24/19 RX: Furosemide [Lasix 40 mg Tablet] 40 mg PEG DAILY 01/24/19 RX: Memantine HCl [Namenda 10 mg Tablet] 10 mg PEG DAILY 01/24/19 RX: Multivitamin [Tab-A-Gogo (Multiple Vitamin) Tablet] 1 tab PEG DAILY 01/24/19 RX: Nystatin [Mycostatin Topical Powder 15 gm] 1 applic TOP BID 01/24/19 RX: Ondansetron HCl [Zofran 8 mg Tablet] 8 mg PEG Q8HP PRN 01/24/19 Allergies/Adverse Reactions: alprazolam [From Xanax] Allergy (Verified 03/07/18 09:34) iodine [Iodine] Allergy (Verified 03/07/18 09:34) quetiapine fumarate [From Seroquel] Allergy (Verified 03/07/18 09:34) sertraline [From Zoloft] Allergy (Verified 01/24/19 20:16) metronidazole [From Flagyl] Adverse Reaction (Verified 01/24/19 20:16) Review of Systems ROS unobtainable: Due to mental status Physical Exam Vital Signs: Temp Pulse Resp BP Pulse Ox 99.9 F 14 122/57 L 95 01/24/19 18:31 01/24/19 21:01 01/24/19 21:00 01/24/19 21:01 Intake & Output 01/23/19 01/24/19 01/25/19 06:59 06:59 06:59 Intake Total 1999 Balance 1999 Weight 71 kg Head exam: PRESENT: atraumatic, normocephalic Eye exam: PRESENT: PERRLA Ear exam: PRESENT: normal external ear exam Mouth exam: PRESENT: moist, tongue midline Neck exam: PRESENT: full ROM Respiratory exam: PRESENT: clear to auscultation monica Cardiovascular exam: PRESENT: RRR, +S1, +S2 Vascular exam: PRESENT: normal capillary refill GI/Abdominal exam: PRESENT: normal bowel sounds, soft Rectal exam: PRESENT: deferred Extremities exam: PRESENT: right AKA, other - There is redness of the left lower leg consistent with cellulitis Neurological exam: PRESENT: alert Psychiatric exam: PRESENT: appropriate affect, normal mood Skin exam: PRESENT: dry, intact, warm Results Laboratory Results: 01/24/19 16:50 01/24/19 20:58 01/24/19 01/24/19 01/24/19 16:50 16:50 16:50 WBC 26.3 H RBC 3.09 L Hgb 9.4 L Hct 28.9 L MCV 94 MCH 30.3 MCHC 32.4 RDW 15.6 H Plt Count 352 Seg Neutrophils % Not Reportable Lymphocytes % Not Reportable Monocytes % Not Reportable Eosinophils % Not Reportable Basophils % Not Reportable Absolute Neutrophils Not Reportable Absolute Lymphocytes Not Reportable Absolute Monocytes Not Reportable Absolute Eosinophils Not Reportable Absolute Basophils Not Reportable VBG pH VBG pCO2 VBG HCO3 VBG Base Excess Sodium 135.4 L Potassium 5.9 H Chloride 99 Carbon Dioxide 22 Anion Gap 14 BUN 130 H Creatinine 1.81 H Est GFR ( Amer) 32 L Est GFR (Non-Af Amer) 27 L Glucose 162 H Lactic Acid 1.0 Calcium 10.9 H Total Bilirubin 0.5 AST 35 ALT 33 Alkaline Phosphatase 103 Ammonia Total Protein 7.6 Albumin 3.6 TSH Free T4 Urine Color Urine Appearance Urine pH Ur Specific [place] Urine Protein Urine Glucose (UA) Urine Ketones Urine Blood Urine Nitrite Ur Leukocyte Esterase Urine WBC (Auto) Urine RBC (Auto) 01/24/19 01/24/19 01/24/19 16:50 19:45 20:58 WBC RBC Hgb Hct MCV MCH MCHC RDW Plt Count Seg Neutrophils % Lymphocytes % Monocytes % Eosinophils % Basophils % Absolute Neutrophils Absolute Lymphocytes Absolute Monocytes Absolute Eosinophils Absolute Basophils VBG pH 7.38 VBG pCO2 37.6 VBG HCO3 21.9 VBG Base Excess -2.6 Sodium Potassium Chloride Carbon Dioxide Anion Gap BUN Creatinine Est GFR ( Amer) Est GFR (Non-Af Amer) Glucose Lactic Acid Calcium Total Bilirubin AST ALT Alkaline Phosphatase Ammonia < 8.7 L Total Protein Albumin TSH Free T4 Urine Color YELLOW Urine Appearance CLEAR Urine pH 9.0 Ur Specific [place] 1.011 Urine Protein 30 H Urine Glucose (UA) 50 H Urine Ketones NEGATIVE Urine Blood NEGATIVE Urine Nitrite NEGATIVE Ur Leukocyte Esterase LARGE H Urine WBC (Auto) 44 Urine RBC (Auto) 1 01/24/19 01/24/19 20:58 20:58 WBC RBC Hgb Hct MCV MCH MCHC RDW Plt Count Seg Neutrophils % Lymphocytes % Monocytes % Eosinophils % Basophils % Absolute Neutrophils Absolute Lymphocytes Absolute Monocytes Absolute Eosinophils Absolute Basophils VBG pH VBG pCO2 VBG HCO3 VBG Base Excess Sodium 133.0 L Potassium 5.0 Chloride 102 Carbon Dioxide 21 L Anion Gap 10 BUN 113 H Creatinine 1.58 H Est GFR ( Amer) 38 L Est GFR (Non-Af Amer) 31 L Glucose 231 H Lactic Acid Calcium 10.2 Total Bilirubin 0.6 AST 36 ALT 40 Alkaline Phosphatase 86 Ammonia Total Protein 6.3 Albumin 2.8 L TSH 2.05 Free T4 1.41 Urine Color Urine Appearance Urine pH Ur Specific [place] Urine Protein Urine Glucose (UA) Urine Ketones Urine Blood Urine Nitrite Ur Leukocyte Esterase Urine WBC (Auto) Urine RBC (Auto) 01/24/19 16:50 Troponin I 0.063 Impressions: Chest X-Ray 01/24/19 15:41 IMPRESSION: NO ACUTE RADIOGRAPHIC FINDING IN THE CHEST. Assessment & Plan - Diagnosis (1) Cellulitis of left leg Is this a current diagnosis for this admission?: Yes Plan: Start IV antibiotic , (2) Chronic respiratory failure Qualifiers: Respiratory failure complication: unspecified whether with hypoxia or hypercapnia Qualified Code(s): J96.10 - Chronic respiratory failure, unspecified whether with hypoxia or hypercapnia Is this a current diagnosis for this admission?: Yes Plan: continue same home vent setting
--- NOTE | 2019-01-24 23:13 | EKG REPORT ---
SEVERITY:- ABNORMAL ECG - SINUS OR ECTOPIC ATRIAL TACHYCARDIA LEFT ATRIAL ABNORMALITY LEFT BUNDLE BRANCH BLOCK : Confirmed by: Mirella Marrero 24-Jan-2019 23:12:14
[2019-01-24] MEDS ORDERED: INSULIN LISPRO 100 UNIT/ML 3 ML VIAL SUBCUT SCH (23:31)
[2019-01-24] MEDS: PIPERACILLIN SODIUM/TAZOBACTAM 3.375 GM in NORMAL SALINE 100 ML IV SCH (23:42)
[2019-01-24] MEDS ORDERED: INSULIN LISPRO 100 UNIT/ML 3 ML VIAL SUBCUT ONE (23:45)
[2019-01-25] MEDS: RINGERS SOLUTION,LACTATED 1,000 ML IV PRN ×2 (00:04→23:32)
[2019-01-25 04:08] LABS: HEMATOCRIT 24.6 % (36.0-47.0); HEMOGLOBIN 8.2 g/dL (12.0-15.5); MEAN CORPUSCULAR HEMOGLOBIN 30.8 pg (27.0-33.4); MEAN CORPUSCULAR HGB CONC 33.1 g/dL (32.0-36.0); MEAN CORPUSCULAR VOLUME 93 fl (80-97); RED BLOOD COUNT 2.65 10^6/uL (3.72-5.28); RED CELL DISTRIBUTION WIDTH 15.1 % (11.5-14.0); WHITE BLOOD COUNT 22.7 10^3/uL (4.0-10.5)
[2019-01-25 04:13] LABS: ALANINE AMINOTRANSFERASE 32 U/L (9-52); ALBUMIN 2.8 g/dL (3.5-5.0); ALKALINE PHOSPHATASE 90 U/L (38-126); ANION GAP 13 (5-19); ASPARTATE AMINO TRANSFERASE 31 U/L (14-36); BILIRUBIN,DIRECT 0.3 mg/dL (0.0-0.4); BILIRUBIN,TOTAL 0.6 mg/dL (0.2-1.3); BLOOD UREA NITROGEN 106 mg/dL (7-20); CALCIUM 10.4 mg/dL (8.4-10.2); CARBON DIOXIDE 18 mmol/L (22-30); CHLORIDE 109 mmol/L (98-107); GLUCOSE 120 mg/dL (75-110); POTASSIUM 4.5 mmol/L (3.6-5.0); SODIUM 139.9 mmol/L (137-145); TOTAL PROTEIN 6.3 g/dL (6.3-8.2)
[2019-01-25 04:23] LABS: ABSOLUTE MONOCYTES # (MANUAL) 1.1 10^3/uL (0.1-1.4); BASOPHILS % (MANUAL) 0 % (0-2); EOSINOPHILS % (MANUAL) 0 % (0-6); MONOCYTES % (MANUAL) 5 % (3-13); TOTAL CELLS COUNTED 100
[2019-01-25 04:24] LABS: ABSOLUTE LYMPHOCYTES# (MANUAL) 2.5 10^3/uL (0.5-4.7); ABSOLUTE NEUTROPHILS# (MANUAL) 19.1 10^3/uL (1.7-8.2); LYMPHOCYTES % (MANUAL) 11 % (13-45); SEGMENTED NEUTROPHILS % (MAN) 84 % (42-78)
[2019-01-25 04:26] LABS: PLATELET CLUMPS PRESENT; PLATELET COMMENT ADEQUATE; PLATELET COUNT 286 10^3/uL (150-450); STOMATOCYTES 2+
[2019-01-25] MEDS: HEPARIN SOD (PORCINE) 5,000 UNIT/ML 1 ML SYRINGE SUBCUT SCH ×3 (05:46→23:29)
[2019-01-25] MEDS: PIPERACILLIN SODIUM/TAZOBACTAM 3.375 GM in NORMAL SALINE 100 ML IV SCH ×4 (05:47→23:33)
[2019-01-25] MEDS: INSULIN LISPRO 100 UNIT/ML 3 ML VIAL SUBCUT SCH ×3 (08:55→17:27)
--- NOTE | 2019-01-25 21:37 | PDOC PROGRESS REPORT ---
Subjective Progress Note for:: 01/25/19 Subjective:: Patient is alert,was seen at the bedside ,she still in the ED ,no bed on the floor ,she has sacral decubitus ulcer , Reason For Visit: CELLULITIS OF THE LEFT LOWER EXTREMITY, CHRONIC Physical Exam Vital Signs: Temp Pulse Resp BP Pulse Ox 98.5 F 14 115/50 L 99 01/25/19 20:03 01/25/19 21:02 01/25/19 21:02 01/25/19 21:02 Intake & Output 01/24/19 01/25/19 01/26/19 06:59 06:59 06:59 Intake Total 2200 1200 Output Total 650 Balance 2200 550 Weight 71 kg General appearance: PRESENT: no acute distress Eye exam: PRESENT: PERRLA Respiratory exam: PRESENT: clear to auscultation monica Cardiovascular exam: PRESENT: +S1, +S2 GI/Abdominal exam: PRESENT: soft Neurological exam: PRESENT: alert Skin exam: PRESENT: other - sacarl decubiti ulcer stage 1 Results Laboratory Results: 01/25/19 03:45 01/25/19 03:45 01/24/19 01/24/19 01/24/19 20:58 20:58 20:58 WBC RBC Hgb Hct MCV MCH MCHC RDW Plt Count Seg Neutrophils % Lymphocytes % Monocytes % Eosinophils % Basophils % Absolute Neutrophils Absolute Lymphocytes Absolute Monocytes Absolute Eosinophils Absolute Basophils Sodium 133.0 L Potassium 5.0 Chloride 102 Carbon Dioxide 21 L Anion Gap 10 BUN 113 H Creatinine 1.58 H Est GFR ( Amer) 38 L Est GFR (Non-Af Amer) 31 L Glucose 231 H Calcium 10.2 Total Bilirubin 0.6 AST 36 ALT 40 Alkaline Phosphatase 86 Ammonia < 8.7 L Total Protein 6.3 Albumin 2.8 L TSH 2.05 Free T4 1.41 01/25/19 01/25/19 03:45 03:45 WBC 22.7 H RBC 2.65 L Hgb 8.2 L Hct 24.6 L MCV 93 MCH 30.8 MCHC 33.1 RDW 15.1 H Plt Count 286 Seg Neutrophils % Not Reportable Lymphocytes % Not Reportable Monocytes % Not Reportable Eosinophils % Not Reportable Basophils % Not Reportable Absolute Neutrophils Not Reportable Absolute Lymphocytes Not Reportable Absolute Monocytes Not Reportable Absolute Eosinophils Not Reportable Absolute Basophils Not Reportable Sodium 139.9 Potassium 4.5 Chloride 109 H Carbon Dioxide 18 L Anion Gap 13 BUN 106 H Creatinine 1.67 H Est GFR ( Amer) 35 L Est GFR (Non-Af Amer) 29 L Glucose 120 H Calcium 10.4 H Total Bilirubin 0.6 AST 31 ALT 32 Alkaline Phosphatase 90 Ammonia Total Protein 6.3 Albumin 2.8 L TSH Free T4 01/24/19 16:50 Troponin I 0.063 Impressions: Chest X-Ray 01/24/19 15:41 IMPRESSION: NO ACUTE RADIOGRAPHIC FINDING IN THE CHEST. Assessment & Plan - Diagnosis (1) Cellulitis of left leg Is this a current diagnosis for this admission?: Yes Plan: continue IV antibiotic (2) Chronic respiratory failure Qualifiers: Respiratory failure complication: unspecified whether with hypoxia or hypercapnia Qualified Code(s): J96.10 - Chronic respiratory failure, unspecified whether with hypoxia or hypercapnia Is this a current diagnosis for this admission?: Yes (3) Decubitus ulcer of sacral region, stage 1 Is this a current diagnosis for this admission?: Yes
[2019-01-26] MEDS: IPRATROPIUM/ALBUTEROL 0.5-2.5 MG/3 ML AMPUL NEB PRN ×2 (03:04→07:53)
[2019-01-26] MEDS: PIPERACILLIN SODIUM/TAZOBACTAM 3.375 GM in NORMAL SALINE 100 ML IV SCH ×4 (06:10→23:39)
[2019-01-26] MEDS: HEPARIN SOD (PORCINE) 5,000 UNIT/ML 1 ML SYRINGE SUBCUT SCH ×3 (06:10→21:14)
[2019-01-26 06:35] LABS: ABSOLUTE BASOPHILS # (AUTO) 0.1 10^3/uL (0.0-0.2); ABSOLUTE EOSINOPHILS # (AUTO) 0.8 10^3/uL (0.0-0.6); ABSOLUTE LYMPHOCYTES (AUTO) 2.3 10^3/uL (0.5-4.7); ABSOLUTE NEUT (AUTO) 9.3 10^3/uL (1.7-8.2); BASOPHILS % (AUTO) 0.9 % (0-2); EOSINOPHILS % (AUTO) 5.7 % (0-6); HEMATOCRIT 23.2 % (36.0-47.0); LYMPHOCYTES % (AUTO) 17.1 % (13-45); MEAN CORPUSCULAR HEMOGLOBIN 31.2 pg (27.0-33.4); MEAN CORPUSCULAR HGB CONC 33.4 g/dL (32.0-36.0); MEAN CORPUSCULAR VOLUME 94 fl (80-97); MONOCYTES % (AUTO) 7.2 % (3-13); PLATELET COUNT 300 10^3/uL (150-450); RED BLOOD COUNT 2.48 10^6/uL (3.72-5.28); RED CELL DISTRIBUTION WIDTH 15.4 % (11.5-14.0); SEGMENTED NEUTROPHILS % (AUTO) 69.1 % (42-78); TOTAL CELLS COUNTED % (AUTO) 100 %; WHITE BLOOD COUNT 13.4 10^3/uL (4.0-10.5)
[2019-01-26 06:36] LABS: HEMOGLOBIN 7.8 g/dL (12.0-15.5)
[2019-01-26 06:52] LABS: ALANINE AMINOTRANSFERASE 34 U/L (9-52); ALBUMIN 2.7 g/dL (3.5-5.0); ALKALINE PHOSPHATASE 93 U/L (38-126); ANION GAP 12 (5-19); ASPARTATE AMINO TRANSFERASE 31 U/L (14-36); BILIRUBIN,DIRECT 0.4 mg/dL (0.0-0.4); BILIRUBIN,TOTAL 0.5 mg/dL (0.2-1.3); BLOOD UREA NITROGEN 86 mg/dL (7-20); CARBON DIOXIDE 17 mmol/L (22-30); CHLORIDE 114 mmol/L (98-107); GLUCOSE 137 mg/dL (75-110); POTASSIUM 3.9 mmol/L (3.6-5.0); TOTAL PROTEIN 6.2 g/dL (6.3-8.2)
[2019-01-26] MEDS: INSULIN LISPRO 100 UNIT/ML 3 ML VIAL SUBCUT SCH ×3 (08:15→17:26)
[2019-01-26] MEDS: RINGERS SOLUTION,LACTATED 1,000 ML IV PRN (17:26)
--- NOTE | 2019-01-26 19:54 | PDOC PROGRESS REPORT ---
Subjective Progress Note for:: 01/26/19 Subjective:: Patient was seen by the bedside ,she seems to be improved ,the cellulitis of the left leg is improving Reason For Visit: CELLULITIS OF THE LEFT LOWER EXTREMITY, CHRONIC Physical Exam Vital Signs: Temp Pulse Resp BP Pulse Ox 99.0 F 85 20 104/57 L 100 01/26/19 14:56 01/26/19 14:56 01/26/19 14:56 01/26/19 14:56 01/26/19 17:33 Pulse Oximeter Continuous Start: 01/26/19 00:46 Freq: RTQ4 Status: Active Protocol: Document 01/26/19 17:33 [facility] (Rec: 01/26/19 17:35 [facility] [email or web address]) Pulse Oximetry Assessment Oxygen Saturation (92-100) 100 Oxygen Delivery Method Mechanical Ventilator Fraction of Inspired Oxygen (FIO2) 40 Equipment Usage Equipment in Use Continuous SpO2 Machine # [id number] Intake & Output 01/25/19 01/26/19 01/27/19 06:59 06:59 06:59 Intake Total 2200 1576 2137 Output Total 1150 350 Balance 2200 426 1787 Weight 71 kg General appearance: PRESENT: no acute distress Respiratory exam: PRESENT: clear to auscultation monica Cardiovascular exam: PRESENT: +S1, +S2 GI/Abdominal exam: PRESENT: soft Neurological exam: PRESENT: alert Results Laboratory Results: 01/26/19 05:35 01/26/19 05:35 01/26/19 01/26/19 05:35 05:35 WBC 13.4 H RBC 2.48 L Hgb 7.8 L Hct 23.2 L MCV 94 MCH 31.2 MCHC 33.4 RDW 15.4 H Plt Count 300 Seg Neutrophils % 69.1 Lymphocytes % 17.1 Monocytes % 7.2 Eosinophils % 5.7 Basophils % 0.9 Absolute Neutrophils 9.3 H Absolute Lymphocytes 2.3 Absolute Monocytes 1.0 Absolute Eosinophils 0.8 H Absolute Basophils 0.1 Sodium 143.0 Potassium 3.9 Chloride 114 H Carbon Dioxide 17 L Anion Gap 12 BUN 86 H Creatinine 1.66 H Est GFR ( Amer) 36 L Est GFR (Non-Af Amer) 30 L Glucose 137 H Calcium 10.0 Total Bilirubin 0.5 AST 31 ALT 34 Alkaline Phosphatase 93 Total Protein 6.2 L Albumin 2.7 L 01/24/19 19:45 Catheterized Urine Urine Culture - Final Escherichia Coli Klebsiella(Enterobac)Aerogenes 01/24/19 16:50 Troponin I 0.063 Impressions: Chest X-Ray 01/24/19 15:41 IMPRESSION: NO ACUTE RADIOGRAPHIC FINDING IN THE CHEST. Assessment & Plan - Diagnosis (1) Cellulitis of left leg Is this a current diagnosis for this admission?: Yes Plan: Continue treatment with IV medications (2) Chronic respiratory failure Qualifiers: Respiratory failure complication: unspecified whether with hypoxia or hypercapnia Qualified Code(s): J96.10 - Chronic respiratory failure, unspecified whether with hypoxia or hypercapnia Is this a current diagnosis for this admission?: Yes Plan: continue same home vent setting (3) Decubitus ulcer of sacral region, stage 1 Is this a current diagnosis for this admission?: Yes
[2019-01-27] MEDS: IPRATROPIUM/ALBUTEROL 0.5-2.5 MG/3 ML AMPUL NEB PRN (05:15)
[2019-01-27] MEDS: HEPARIN SOD (PORCINE) 5,000 UNIT/ML 1 ML SYRINGE SUBCUT SCH ×3 (05:48→22:21)
[2019-01-27] MEDS: PIPERACILLIN SODIUM/TAZOBACTAM 3.375 GM in NORMAL SALINE 100 ML IV SCH ×3 (05:48→17:11)
[2019-01-27 05:54] LABS: ABSOLUTE BASOPHILS # (AUTO) 0.1 10^3/uL (0.0-0.2); ABSOLUTE EOSINOPHILS # (AUTO) 1.3 10^3/uL (0.0-0.6); ABSOLUTE LYMPHOCYTES (AUTO) 2.4 10^3/uL (0.5-4.7); ABSOLUTE MONOCYTES (AUTO) 0.9 10^3/uL (0.1-1.4); ABSOLUTE NEUT (AUTO) 5.9 10^3/uL (1.7-8.2); BASOPHILS % (AUTO) 0.7 % (0-2); HEMATOCRIT 24.5 % (36.0-47.0); HEMOGLOBIN 8.1 g/dL (12.0-15.5); LYMPHOCYTES % (AUTO) 23.1 % (13-45); MEAN CORPUSCULAR HEMOGLOBIN 30.9 pg (27.0-33.4); MEAN CORPUSCULAR VOLUME 94 fl (80-97); MONOCYTES % (AUTO) 8.2 % (3-13); PLATELET COUNT 315 10^3/uL (150-450); RED BLOOD COUNT 2.62 10^6/uL (3.72-5.28); RED CELL DISTRIBUTION WIDTH 15.1 % (11.5-14.0); TOTAL CELLS COUNTED % (AUTO) 100 %; WHITE BLOOD COUNT 10.6 10^3/uL (4.0-10.5)
[2019-01-27 06:19] LABS: ALANINE AMINOTRANSFERASE 29 U/L (9-52); ALBUMIN 2.8 g/dL (3.5-5.0); ALKALINE PHOSPHATASE 102 U/L (38-126); ANION GAP 12 (5-19); ASPARTATE AMINO TRANSFERASE 25 U/L (14-36); BILIRUBIN,DIRECT 0.4 mg/dL (0.0-0.4); BILIRUBIN,TOTAL 0.5 mg/dL (0.2-1.3); BLOOD UREA NITROGEN 70 mg/dL (7-20); CARBON DIOXIDE 19 mmol/L (22-30); CHLORIDE 115 mmol/L (98-107); GLUCOSE 149 mg/dL (75-110); POTASSIUM 4.4 mmol/L (3.6-5.0); SODIUM 146.3 mmol/L (137-145); TOTAL PROTEIN 6.3 g/dL (6.3-8.2)
[2019-01-27] MEDS: INSULIN LISPRO 100 UNIT/ML 3 ML VIAL SUBCUT SCH ×3 (08:16→17:10)
--- NOTE | 2019-01-27 08:54 | PDOC PROGRESS REPORT ---
Subjective Progress Note for:: 01/27/19 Subjective:: Patient is currently doing same No fever overnight Patient is currently on a ventilations Reason For Visit: CELLULITIS OF THE LEFT LOWER EXTREMITY, CHRONIC Physical Exam Vital Signs: Temp Pulse Resp BP Pulse Ox 98.9 F 93 14 130/54 H 98 01/27/19 04:04 01/27/19 07:00 01/27/19 05:16 01/27/19 04:04 01/27/19 05:16 Pulse Oximeter Continuous Start: 01/26/19 00:46 Freq: RTQ4 Status: Active Protocol: Document 01/27/19 04:00 [facility] (Rec: 01/27/19 04:05 [facility] [email or web address]) Pulse Oximetry Assessment Oxygen Saturation (92-100) 97 Oxygen Delivery Method Mechanical Ventilator Fraction of Inspired Oxygen (FIO2) 40 Equipment Usage Equipment in Use Continuous SpO2 Machine # 5 Intake & Output 01/26/19 01/27/19 01/28/19 06:59 06:59 06:59 Intake Total 1576 3553 Output Total 1150 1550 Balance 426 2002 Weight 69.4 kg General appearance: PRESENT: no acute distress Eye exam: PRESENT: PERRLA Respiratory exam: PRESENT: decreased breath sounds Cardiovascular exam: PRESENT: +S1, +S2 GI/Abdominal exam: PRESENT: normal bowel sounds, soft Extremities exam: ABSENT: pedal edema Additional comments: Left leg redness is all improving Neurological exam: PRESENT: awake Skin exam: PRESENT: dry Results Laboratory Results: 01/27/19 05:03 01/27/19 05:03 01/27/19 01/27/19 05:03 05:03 WBC 10.6 H RBC 2.62 L Hgb 8.1 L Hct 24.5 L MCV 94 MCH 30.9 MCHC 33.0 RDW 15.1 H Plt Count 315 Seg Neutrophils % 56.0 Lymphocytes % 23.1 Monocytes % 8.2 Eosinophils % 12.0 H Basophils % 0.7 Absolute Neutrophils 5.9 Absolute Lymphocytes 2.4 Absolute Monocytes 0.9 Absolute Eosinophils 1.3 H Absolute Basophils 0.1 Sodium 146.3 H Potassium 4.4 Chloride 115 H Carbon Dioxide 19 L Anion Gap 12 BUN 70 H Creatinine 1.47 H Est GFR ( Amer) 41 L Est GFR (Non-Af Amer) 34 L Glucose 149 H Calcium 10.0 Total Bilirubin 0.5 AST 25 ALT 29 Alkaline Phosphatase 102 Total Protein 6.3 Albumin 2.8 L 01/24/19 19:45 Catheterized Urine Urine Culture - Final Escherichia Coli Klebsiella(Enterobac)Aerogenes 01/24/19 16:50 Troponin I 0.063 Impressions: Chest X-Ray 01/24/19 15:41 IMPRESSION: NO ACUTE RADIOGRAPHIC FINDING IN THE CHEST. Assessment & Plan - Diagnosis (1) Cellulitis of left leg Is this a current diagnosis for this admission?: Yes Plan: Continuous IV antibiotic (2) Chronic respiratory failure Qualifiers: Respiratory failure complication: hypoxia Qualified Code(s): J96.11 - Chronic respiratory failure with hypoxia Is this a current diagnosis for this admission?: Yes Plan: Continues to home ventilation setting (3) Decubitus ulcer of sacral region, stage 1 Is this a current diagnosis for this admission?: Yes Plan: Continues a dressing change (4) CHF (congestive heart failure) Qualifiers: Heart failure type: diastolic Heart failure chronicity: chronic Qualified Code(s): I50.32 - Chronic diastolic (congestive) heart failure Is this a current diagnosis for this admission?: Yes Plan: Currently all stable (5) COPD (chronic obstructive pulmonary disease) Qualifiers: COPD type: unspecified COPD Qualified Code(s): J44.9 - Chronic obstructive pulmonary disease, unspecified Is this a current diagnosis for this admission?: Yes Plan: Continues to nebulizer treatments - Time Time Spent with patient: 15-24 minutes Medications reviewed and adjusted accordingly: Yes Anticipated discharge: Other Within: Other - Plan Summary Plan Summary: Continues to current medications
[2019-01-27] MEDS: RINGERS SOLUTION,LACTATED 1,000 ML IV PRN (11:42)
[2019-01-28] MEDS: PIPERACILLIN SODIUM/TAZOBACTAM 3.375 GM in NORMAL SALINE 100 ML IV SCH ×5 (00:17→23:55)
[2019-01-28] MEDS: RINGERS SOLUTION,LACTATED 1,000 ML IV PRN ×2 (05:20→22:15)
[2019-01-28] MEDS: HEPARIN SOD (PORCINE) 5,000 UNIT/ML 1 ML SYRINGE SUBCUT SCH ×3 (05:22→22:15)
[2019-01-28] MEDS: INSULIN LISPRO 100 UNIT/ML 3 ML VIAL SUBCUT SCH ×3 (07:51→17:10)
--- NOTE | 2019-01-28 10:04 | PDOC PROGRESS REPORT ---
Subjective Progress Note for:: 01/28/19 Subjective:: Patient is currently doing same No fever overnight Patient is currently on a ventilations Reason For Visit: CELLULITIS OF THE LEFT LOWER EXTREMITY, CHRONIC Physical Exam Vital Signs: Temp Pulse Resp BP Pulse Ox 97.9 F 69 16 126/60 H 100 01/28/19 07:18 01/28/19 07:18 01/28/19 07:18 01/28/19 07:18 01/28/19 07:18 Pulse Oximeter Continuous Start: 01/26/19 00:46 Freq: RTQ4 Status: Active Protocol: Document 01/28/19 04:00 [facility] (Rec: 01/28/19 04:19 [facility] [email or web address]) Pulse Oximetry Assessment Oxygen Saturation (92-100) 100 Oxygen Delivery Method Mechanical Ventilator Fraction of Inspired Oxygen (FIO2) 40 Equipment Usage Equipment in Use Continuous Pulse Oximeter 24 Hour Charge Charge Now Continuous SpO2 Machine # 5 Intake & Output 01/27/19 01/28/19 01/29/19 06:59 06:59 06:59 Intake Total 3553 4597 Output Total 1550 7765 Balance 2002 2221 Weight 69.4 kg 70.1 kg General appearance: PRESENT: no acute distress Eye exam: PRESENT: PERRLA Mouth exam: PRESENT: neck supple Respiratory exam: PRESENT: clear to auscultation monica Cardiovascular exam: PRESENT: +S1, +S2 Neurological exam: PRESENT: alert, awake Skin exam: PRESENT: dry Results Laboratory Results: 01/27/19 05:03 01/27/19 05:03 01/24/19 16:50 Troponin I 0.063 Impressions: Chest X-Ray 01/24/19 15:41 IMPRESSION: NO ACUTE RADIOGRAPHIC FINDING IN THE CHEST. Assessment & Plan - Diagnosis (1) Cellulitis of left leg Is this a current diagnosis for this admission?: Yes Plan: Continuous IV antibiotic (2) Chronic respiratory failure Qualifiers: Respiratory failure complication: hypoxia Qualified Code(s): J96.11 - Chronic respiratory failure with hypoxia Is this a current diagnosis for this admission?: Yes Plan: Continues to home ventilation setting (3) Decubitus ulcer of sacral region, stage 1 Is this a current diagnosis for this admission?: Yes Plan: Continues a dressing change (4) CHF (congestive heart failure) Qualifiers: Heart failure type: diastolic Heart failure chronicity: chronic Qualified Code(s): I50.32 - Chronic diastolic (congestive) heart failure Is this a current diagnosis for this admission?: Yes Plan: Currently all stable (5) COPD (chronic obstructive pulmonary disease) Qualifiers: COPD type: unspecified COPD Qualified Code(s): J44.9 - Chronic obstructive pulmonary disease, unspecified Is this a current diagnosis for this admission?: Yes Plan: Continues to nebulizer treatments - Time Time Spent with patient: 15-24 minutes Medications reviewed and adjusted accordingly: Yes Anticipated discharge: Other Within: Other - Plan Summary Plan Summary: Continues to current medication
[2019-01-29] MEDS: PIPERACILLIN SODIUM/TAZOBACTAM 3.375 GM in NORMAL SALINE 100 ML IV SCH ×3 (06:22→17:52)
[2019-01-29] MEDS: HEPARIN SOD (PORCINE) 5,000 UNIT/ML 1 ML SYRINGE SUBCUT SCH ×3 (06:24→21:17)
[2019-01-29] MEDS: INSULIN LISPRO 100 UNIT/ML 3 ML VIAL SUBCUT SCH ×3 (08:49→16:31)
[2019-01-29] MEDS: RINGERS SOLUTION,LACTATED 1,000 ML IV PRN (17:52)
[2019-01-29] MEDS ORDERED: ONDANSETRON HCL 8 MG TABLET PEG PRN (18:09)
[2019-01-29] MEDS ORDERED: INSULIN DETEMIR 10 UNIT SQ SCH (18:15)
[2019-01-29] MEDS ORDERED: IPRATROPIUM/ALBUTEROL 0.5-2.5 MG/3 ML AMPUL NEB SCH (18:15)
[2019-01-29] MEDS ORDERED: (PENDING PHARMACY ID) (L.Acidoph,Paracasei, B.Lactis [Probiotic] 1 CAP) PEG SCH (18:15)
[2019-01-29] MEDS: ASPIRIN 81 MG TABLET, CHEWABLE PO SCH (19:17)
[2019-01-29] MEDS: MULTIVITAMIN TABLET PO SCH (19:17)
[2019-01-29] MEDS: MEMANTINE HCL 10 MG TABLET PEG SCH (19:17)
[2019-01-29] MEDS: FUROSEMIDE 40 MG TABLET PEG SCH (19:17)
[2019-01-29] MEDS: ASCORBIC ACID 500 MG TABLET PEG SCH (19:18)
--- NOTE | 2019-01-29 19:39 | PDOC DISCHARGE SUMMARY ---
General - Admit/Disc Date/PCP Admission Date/Primary Care Provider: 01/24/19 17:29 BAKARI BEKCER MD Discharge Date: 01/30/19 - Discharge Diagnosis (1) Cellulitis of left leg Is this a current diagnosis for this admission?: Yes (2) Chronic respiratory failure Is this a current diagnosis for this admission?: Yes (4) G tube feedings Is this a current diagnosis for this admission?: Yes (5) Indwelling Romero catheter present Is this a current diagnosis for this admission?: Yes (6) Decubitus ulcer of buttock, stage 1 Is this a current diagnosis for this admission?: Yes - Additional Information Resuscitation Status: Full Code Home Medications: RX: Acetaminophen [Tylenol 325 mg Tablet] 325 mg PEG Q12HP PRN 01/24/19 RX: Ascorbic Acid [Vitamin C 500 mg Tablet] 500 mg PEG DAILY 01/24/19 RX: Aspirin [Ecotrin 81 mg EC Tablet] 81 mg PEG DAILY 01/24/19 RX: Furosemide [Lasix 40 mg Tablet] 40 mg PEG DAILY 01/24/19 RX: Insulin Aspart [Novolog Insulin (Aspart) 100 unit/mL] 0 unit SQ .SLIDING SCALE 01/24/19 RX: Insulin Detemir [Levemir] 10 units SQ DAILY 01/24/19 RX: Ipratropium/Albuterol Sulfate [Duoneb 3 ml Ampul] 3 ml NEB Q6 01/24/19 RX: L.acidoph,Paracasei, B.lactis [Probiotic] 1 cap PEG DAILY 01/24/19 RX: Memantine HCl [Namenda 10 mg Tablet] 10 mg PEG DAILY 01/24/19 RX: Multivitamin [Tab-A-Gogo (Multiple Vitamin) Tablet] 1 tab PEG DAILY 01/24/19 RX: Nystatin [Mycostatin Topical Powder 15 gm] 1 applic TOP BID 01/24/19 RX: Ondansetron HCl [Zofran 8 mg Tablet] 8 mg PEG Q8HP PRN 01/24/19 History of Present Illness History of Present Illness: BRIANA BRADY is a 83 year old female,Patient have history of chronic respiratory failure on home oxygen,chronic romero indwelling romero catheter ,tube feeder,she was transferred to the ER for evaluation of redness of the left leg ,she is status post AKA of the right leg .She does not comminucate directly ,she has a tracheostomy ,history taking was very minimal. Hospital Course Hospital Course: Patient was admitted for the management of cellulitis affecting the left leg, she was treated with IV antibiotic. She is vent dependent with chronic indwelling Romero catheter and G-tube. She was treated with IV antibiotic, she was continued the same vent setting that she was on at home. She has stage I decubitus ulcer of the buttock Physical Exam Vital Signs: Temp Pulse Resp BP Pulse Ox 97.9 F 77 20 160/56 H 97 01/29/19 16:08 01/29/19 16:08 01/29/19 16:08 01/29/19 16:08 01/29/19 16:08 Pulse Oximeter Continuous Start: 01/26/19 00:46 Freq: RTQ4 Status: Active Protocol: Document 01/29/19 15:22 [facility] (Rec: 01/29/19 15:36 [email or web address]) Pulse Oximetry Assessment Oxygen Saturation (92-100) 96 Oxygen Delivery Method Mechanical Ventilator Fraction of Inspired Oxygen (FIO2) 40 Equipment Usage Equipment in Use Continuous SpO2 Machine # 5 Intake & Output 01/28/19 01/29/19 01/30/19 06:59 06:59 06:59 Intake Total 4506 3389 2454 Output Total 2375 1700 1025 Balance 2222 1689 1429 Weight 70.1 kg 72.9 kg General appearance: PRESENT: no acute distress Eye exam: PRESENT: PERRLA Respiratory exam: PRESENT: clear to auscultation monica Cardiovascular exam: PRESENT: +S1, +S2 GI/Abdominal exam: PRESENT: soft Neurological exam: PRESENT: alert Results Laboratory Results: 01/27/19 05:03 01/27/19 05:03 01/24/19 17:11 Blood Blood Culture - Final NO GROWTH IN 5 DAYS 01/24/19 16:50 Blood Blood Culture - Final NO GROWTH IN 5 DAYS 01/24/19 16:50 Troponin I 0.063 Impressions: Chest X-Ray 01/24/19 15:41 IMPRESSION: NO ACUTE RADIOGRAPHIC FINDING IN THE CHEST. Qualifiers - * PATIENT BEING DISCHARGED WITH ANY OF THE FOLLOWING DIAGNOSIS: No Acute Heart Failure Is this a Heart Failure Patient?: No
[2019-01-29] MEDS: ACETAMINOPHEN 325 MG TABLET PEG PRN (20:28)
[2019-01-29] MEDS: IPRATROPIUM/ALBUTEROL 0.5-2.5 MG/3 ML AMPUL NEB SCH (21:57)
[2019-01-29] MEDS: NYSTATIN TOPICAL POWDER 15 GM TOP SCH (22:09)
[2019-01-30] MEDS: IPRATROPIUM/ALBUTEROL 0.5-2.5 MG/3 ML AMPUL NEB SCH ×3 (02:09→13:55)
[2019-01-30] MEDS: HEPARIN SOD (PORCINE) 5,000 UNIT/ML 1 ML SYRINGE SUBCUT SCH ×2 (06:10→13:17)
[2019-01-30] MEDS: ASCORBIC ACID 500 MG TABLET PEG SCH (09:15)
[2019-01-30] MEDS: ACETAMINOPHEN 325 MG TABLET PEG PRN (09:15)
[2019-01-30] MEDS: ASPIRIN 81 MG TABLET, CHEWABLE PO SCH (09:16)
[2019-01-30] MEDS: MULTIVITAMIN TABLET PO SCH (09:16)
[2019-01-30] MEDS: FUROSEMIDE 40 MG TABLET PEG SCH (09:16)
[2019-01-30] MEDS: MEMANTINE HCL 10 MG TABLET PEG SCH (09:16)
[2019-01-30] MEDS: NYSTATIN TOPICAL POWDER 15 GM TOP SCH (09:19)
[2019-01-30] MEDS: INSULIN LISPRO 100 UNIT/ML 3 ML VIAL SUBCUT SCH ×2 (09:19→13:17)
[2019-01-30] MEDS ORDERED: INSULIN GLARGINE,HUM.REC.ANLOG 1,000 UNIT/10 ML VIAL SUBCUT SCH (10:00)
[2019-01-30] MEDS ORDERED: LACTOBACILLUS ACIDOPHILUS 250 MG TAB PEG SCH (10:00)
[2019-01-30] MEDS: RINGERS SOLUTION,LACTATED 1,000 ML IV PRN (10:27)
[2019-01-30 17:08] VITALS: BP 118/81
== END 2019-01-30 16:35 | disposition home health service (06) | DRG 603 ==
LOC: ER 15:20 → EH 17:29 → 3N 01-25 22:00
PROVIDERS: ADMIT Internal Medicine; ATTEND Internal Medicine
DX: L03.116 Cellulitis of left lower limb (principal); J96.11 Chronic respiratory failure with hypoxia; I50.32 Chronic diastolic (congestive) heart failure; I11.0 Hypertensive heart disease with heart failure; J44.9 Chronic obstructive pulmonary disease, unspecified; L89.151 Pressure ulcer of sacral region, stage 1; I73.9 Peripheral vascular disease, unspecified; F03.90 Unspecified dementia, unspecified severity, without behavioral disturbance, psychotic disturbance, mood disturbance, and anxiety; Z93.0 Tracheostomy status; Z86.718 Personal history of other venous thrombosis and embolism; Z86.711 Personal history of pulmonary embolism; Z89.511 Acquired absence of right leg below knee; Z99.81 Dependence on supplemental oxygen; Z93.1 Gastrostomy status; Z79.82 Long term (current) use of aspirin; Z79.4 Long term (current) use of insulin; Z79.51 Long term (current) use of inhaled steroids; Z79.899 Other long term (current) drug therapy
CPT/HCPCS: 36415; 71045; 80048; 80053; 80076; 81001; 82140; 82803; 82962; 83605; 84439; 84443; 84484; 85025; 85610; 85730; 87040; 87086; 87088; 87186; 93005; 93010; 94002; 94003; 94762; 99291; J0610; J1644; J1815; J2543; J3370; J3490; J7030; J7050; J7120; J7620; S0119

== ENCOUNTER 2019-03-15 09:09 | Emergency (ER) | payer MEDICARE, MEDICAID ==
--- NOTE | 2019-03-15 09:40 | ER Document Report ---
ED General - General Stated Complaint: G TUBE ISSUE Time Seen by Provider: 03/15/19 09:38 Primary Care Provider: BAKARI BECKER MD [Primary Care Provider] - Follow up as needed Notes: 83-year-old female presents with dislodged G-tube apparently at 3 in the morning. Is been there for 3 years. Baseline debilitated and elderly with trach in all meds/feeds through tube. TRAVEL OUTSIDE OF THE [place] IN LAST 30 DAYS: No - Related Data Allergies/Adverse Reactions: alprazolam [From Xanax] Allergy (Verified 03/07/18 09:34) iodine [Iodine] Allergy (Verified 03/07/18 09:34) quetiapine fumarate [From Seroquel] Allergy (Verified 03/07/18 09:34) sertraline [From Zoloft] Allergy (Verified 01/24/19 20:16) metronidazole [From Flagyl] Adverse Reaction (Verified 01/24/19 20:16) Past Medical History - Social History Smoking Status: Never Smoker Family History: Reviewed & Not Pertinent - Past Medical History Cardiac Medical History: Reports: Hx Congestive Heart Failure, Hx DVT, Hx Hypercholesterolemia, Hx Hypertension, Hx Peripheral Vascular Disease, Hx Pulmonary Embolism Pulmonary Medical History: Reports: Hx COPD, Hx Pneumonia - aspiration Endocrine Medical History: Reports: Hx Diabetes Mellitus Type 1, Hx Diabetes Mellitus Type 2 Renal/ Medical History: Denies: Hx Peritoneal Dialysis Psychiatric Medical History: Reports: Hx Dementia Denies: Hx Depression Infectious Medical History: Reports: Hx C-Diff, Hx MRSA, Hx VRE Past Surgical History: Reports: Hx Abdominal Surgery - GI tube, Hx Bowel Surgery, Hx Cardiac Surgery - stents, Hx Orthopedic Surgery - Shoulder. 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 - Immunizations Hx Diphtheria, Pertussis, Tetanus Vaccination: Yes Review of Systems - Review of Systems Notes: REVIEW OF SYSTEMS PHYSICAL EXAMINATION General: Elderly and frail Head: Atraumatic, normocephalic ENT: Mouth normal, oropharynx moist, no exudates or tonsillar enlargement Eyes: Conjunctiva normal, pupils equal, lids normal Neck: No JVD, supple, no guarding CVS: Normal rate, regular rhythm, no murmurs Resp: No resp distress, equal and normal breath sounds bilaterally GI: Nondistended, soft, no tenderness -left upper quadrant G-tube site appears granulated and possibly closed Ext: No deformities, no edema, normal range of motion in upper and lower ext Back: No CVA or midline TTP Skin: No rash, warm Lymphatic: No lymphadeopathy noted Neuro: Awake, alert. Face symmetric. GCS 15. -: Yes ROS unobtainable due to patient's medical condition Physical Exam - Vital signs Vitals: Temp Resp BP Pulse Ox 98.4 F 19 131/62 H 86 L 03/15/19 09:21 03/15/19 09:21 03/15/19 09:21 03/15/19 09:21 Course - Re-evaluation Re-evalutation: 03/15/19 09:39 Dislodged G-tube. Unable to replace with 20 or 16 Yakut. Belly benign. Will see if IR can place one today otherwise we will place nasogastric feeding tube and contact primary care for outpatient replacement. Incidental mild hypoxia by RT. 03/15/19 09:42 Daughter is requesting UA because of increased urinary sediment. No fever or altered mental statusprimary care is already said no UAs unless sickI agree to avoid C. difficile and unnecessary and about it in the presence of an underlying Palacios catheter. Date: Interventional radiology will replace the tube. I have discussed with the patient there likely diagnosis, aftercare plan, follow-up plans and my usual and customary return precautions. They verbalized understanding of this. - Vital Signs Vital signs: Temp Pulse Resp BP Pulse Ox 98.4 F 19 131/62 H 86 L 03/15/19 09:21 03/15/19 09:21 03/15/19 09:21 03/15/19 09:21 Discharge - Discharge Clinical Impression: Dislodged gastrostomy tube Condition: Good Disposition: HOME, SELF-CARE Additional Instructions: We have arranged replacement of your feeding tube. Please follow-up with your primary care doctor Referrals: BAKARI BECKER MD [Primary Care Provider] - Follow up as needed
--- NOTE | 2019-03-15 11:24 | RADIOLOGY REPORT (SQ) ---
EXAM DESCRIPTION: REPLACE G TUBE; FLUORO/PERC DRAINAGE W/CATH COMPLETED DATE/TIME: 03/15/2019 10:44 am; 03/15/2019 10:36 am REASON FOR STUDY: replace G-tube- 20Fr came out yest; G -TUBE REPLACEMENT COMPARISON: None. TECHNIQUE: Using a sterile prep technique, replacement of a 16 [place]ian Palacios through pre-existing gas trostomy tube tract was performed. Fluoroscopic images were saved to PACS demonstrating the final po sition. RADIATION DOSE: Total fluoro time 1.2 minutes 1 digital fluoroscopic image saved to PACS. LIMITATIONS: None. FINDINGS: After consent was obtained, the patient was placed on the fluoroscopy table and the existi ng G-tube tract along the anterior abdominal wall was prepped and draped in a sterile fashion. A wire was placed through the existing G-tube tract and into the stomach. A a 16 Ivorian Palacios cathet er was successfully placed through the tract into the body of the stomach. We were unable to place a larger catheter due to pain along the tract. Approximately 20 mL of Omnipaque 300 contrast was used to confirm placement, tip of the gastrostomy tube is in the body of the stomach. No extravasation. Contrast was seen emptying out of the stomach and into the small bowel. IMPRESSION: Patient had a pre-existing 20 Ivorian gastrostomy tube which became completely dislodged last night. We were able to place a 16 Ivorian Palacios catheter through the pre-existing gastrostomy tract, with the balloon tip in the gastric antrum. No leakage of contrast along the G-tube tract. Patient will likely require IV pain control or conscious sedation for replacement of a larger tube. COMMENT: Findings discussed with the emergency room attending physician Quality ID [id number]: Final reports for procedures using fluoroscopy that document radiation exposure zuhair reina, or exposure time and number of fluorographic images (if radiation exposure indices are not avail able) TECHNICAL DOCUMENTATION: JOB ID: [id number] [employer]- All Rights Reserved Reading location - IP/workstation name: [email or web address]
--- NOTE | 2019-03-15 11:24 | RADIOLOGY REPORT (SQ) ---
EXAM DESCRIPTION: REPLACE G TUBE; FLUORO/PERC DRAINAGE W/CATH COMPLETED DATE/TIME: 03/15/2019 10:44 am; 03/15/2019 10:36 am REASON FOR STUDY: replace G-tube- 20Fr came out yest; G -TUBE REPLACEMENT COMPARISON: None. TECHNIQUE: Using a sterile prep technique, replacement of a 16 Citizen [place] Palacios through pre-existing gas trostomy tube tract was performed. Fluoroscopic images were saved to PACS demonstrating the final po sition. RADIATION DOSE: Total fluoro time 1.2 minutes 1 digital fluoroscopic image saved to PACS. LIMITATIONS: None. FINDINGS: After consent was obtained, the patient was placed on the fluoroscopy table and the existi ng G-tube tract along the anterior abdominal wall was prepped and draped in a sterile fashion. A wire was placed through the existing G-tube tract and into the stomach. A a 16 [place] Palacios cathet er was successfully placed through the tract into the body of the stomach. We were unable to place a larger catheter due to pain along the tract. Approximately 20 mL of Omnipaque 300 contrast was used to confirm placement, tip of the gastrostomy tube is in the body of the stomach. No extravasation. Contrast was seen emptying out of the stomach and into the small bowel. IMPRESSION: Patient had a pre-existing 20 [place] gastrostomy tube which became completely dislodged last night. We were able to place a 16 [place] Palacios catheter through the pre-existing gastrostomy tract, with the balloon tip in the gastric antrum. No leakage of contrast along the G-tube tract. Patient will likely require IV pain control or conscious sedation for replacement of a larger tube. COMMENT: Findings discussed with the emergency room attending physician Quality ID [id number]: Final reports for procedures using fluoroscopy that document radiation exposure zuhair reina, or exposure time and number of fluorographic images (if radiation exposure indices are not avail able) TECHNICAL DOCUMENTATION: JOB ID: [id number] [employer]- All Rights Reserved Reading location - IP/workstation name: [email or web address]
[2019-03-15 15:53] VITALS: BP 137/66
== END 2019-03-15 15:54 | disposition home or self-care (01) ==
LOC: ER 09:09
DX: Z43.1 Encounter for attention to gastrostomy (principal); I50.9 Heart failure, unspecified; I11.0 Hypertensive heart disease with heart failure; J44.9 Chronic obstructive pulmonary disease, unspecified; E78.00 Pure hypercholesterolemia, unspecified; Z86.718 Personal history of other venous thrombosis and embolism; Z86.711 Personal history of pulmonary embolism; Z86.14 Personal history of Methicillin resistant Staphylococcus aureus infection; Z93.0 Tracheostomy status; Z89.511 Acquired absence of right leg below knee
CPT/HCPCS: 99283; 75989; 49450; C1758; C1769 ×2; C1894

== ENCOUNTER 2019-03-17 02:45 | Emergency (ER) | payer MEDICARE, MEDICAID ==
[2019-03-17] MEDS ORDERED: LIDOCAINE 1% INJ-PF (10 MG/ML) 30 ML SDV INJ ONE (03:21)
--- NOTE | 2019-03-17 03:27 | ER Document Report ---
ED General - General Chief Complaint: Other Stated Complaint: G TUBE COMPLICATION Time Seen by Provider: 03/17/19 02:58 Primary Care Provider: BAKARI BECKER MD [Primary Care Provider] - Follow up as needed Notes: Patient is a pleasant 83-year-old female who is vent dependent and bedridden who has a feeding tube. She gets all her medications and nutrition through the feeding tube. Her original feeding tube came out several days ago. They were able to place Romero catheter to hold in place. She is post follow-up with Dr. Becker to arrange to have a new feeding tube placed by Dr. Michelle. Tonight the Romero came out. They therefore came to the ER. Last time feeding tube was seen in was around 8 PM when the home health nurse was at the home.. TRAVEL OUTSIDE OF THE [place] IN LAST 30 DAYS: No - Related Data Allergies/Adverse Reactions: alprazolam [From Xanax] Allergy (Verified 03/07/18 09:34) iodine [Iodine] Allergy (Verified 03/07/18 09:34) quetiapine fumarate [From Seroquel] Allergy (Verified 03/07/18 09:34) sertraline [From Zoloft] Allergy (Verified 01/24/19 20:16) metronidazole [From Flagyl] Adverse Reaction (Verified 01/24/19 20:16) Past Medical History - Social History Smoking Status: Never Smoker Frequency of alcohol use: None Drug Abuse: None Family History: Reviewed & Not Pertinent Patient has suicidal ideation: No Patient has homicidal ideation: No - Past Medical History Cardiac Medical History: Reports: Hx Congestive Heart Failure, Hx DVT, Hx Hypercholesterolemia, Hx Hypertension, Hx Peripheral Vascular Disease, Hx Pulmonary Embolism Pulmonary Medical History: Reports: Hx COPD, Hx Pneumonia - aspiration Endocrine Medical History: Reports: Hx Diabetes Mellitus Type 1, Hx Diabetes Mellitus Type 2 Renal/ Medical History: Denies: Hx Peritoneal Dialysis Psychiatric Medical History: Reports: Hx Dementia Denies: Hx Depression Infectious Medical History: Reports: Hx C-Diff, Hx MRSA, Hx VRE Past Surgical History: Reports: Hx Abdominal Surgery - GI tube, Hx Bowel Surgery, Hx Cardiac Surgery - stents, Hx Orthopedic Surgery - Shoulder. 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 - Immunizations Hx Diphtheria, Pertussis, Tetanus Vaccination: Yes Review of Systems - Review of Systems Notes: My Normal Review Basic REVIEW OF SYSTEMS: CONSTITUTIONAL : Denies fever, chills, or sweats. Denies recent illness. GASTROINTESTINAL: Denies abdominal pain. Denies nausea, vomiting SKIN: Denies rash or skin lesions. NEUROLOGICAL: Denies altered mental status or loss of consciousness. ALL OTHER SYSTEMS REVIEWED AND NEGATIVE. Physical Exam - Vital signs Vitals: Temp Pulse Resp Pulse Ox 98.6 F 101 H 18 95 03/17/19 02:55 03/17/19 02:55 03/17/19 02:55 03/17/19 02:55 - Notes Notes: General Appearance: Well nourished, alert, cooperative, no acute distress, no obvious discomfort. Vitals: reviewed, See vital signs table. Head: no swelling or tenderness to the head Eyes: PERRL, EOMI, Conjuctiva clear Neck: Supple, tracheostomy in place with connection to vent Abdomen: Normal BS, soft, No rigidity, stoma without any surrounding redness or swelling or abnormal discharge in the left upper portion of the abdomen. Extremities: good pulses in all extremities Skin: warm, dry, appropriate color, no rash Neuro: interactive on exam. Course - Re-evaluation Re-evalutation: 03/17/19 04:30 [address] to place a 16 Danish Romero through the stoma from where the previous feeding tube was. This would not pass. I then tried a 14 Danish feeding tube however this would not pass either. I then placed a 12 Danish coud Romero catheter. This did eventually pass. There is no complications. There was some gastric contents that were expressed back from the feeding tube. It was inflated with air. X-ray of Gastrografin was obtained in the confirm what appears to be placement in the stomach. Being that the tube is fallen out in the past I did use 0 silk sutures and did a cross wrap suture around the tube to try to give it some resistance to coming out. Informed them to use the tube just says they would any other feeding tube in the follow-up close with Dr. Becker to arrange having a new feeding tube placed. I encouraged him to return to ER if the tube falls out, if there is any redness or swelling around the site, or if they have any further concerns. Family agrees with plan and patient will be discharged home. - Vital Signs Vital signs: Temp Pulse Resp BP Pulse Ox 98.6 F 101 H 18 95 03/17/19 02:55 03/17/19 02:55 03/17/19 02:55 03/17/19 02:55 Discharge - Discharge Clinical Impression: Visit for feeding tube placement Condition: Good Disposition: HOME, SELF-CARE Additional Instructions: I have placed a romero catheter in place of the feeding tube. Please use the romero catheter just like you would use your feeding tube. please keep the site clean. Follow up with Dr. Higgins on Tuesday to arrange placement of a new feeding tube. Return to the ER if the tube becomes dislodged, if there is any re dness or swelling around the site, fevers, or if Mrs. Matt appears unwell. Referrals: BAKARI BECKER MD [Primary Care Provider] - 03/19/19
--- NOTE | 2019-03-17 04:30 | RADIOLOGY REPORT (SQ) ---
CLINICAL HISTORY: g tube placement COMPARISON: None. TECHNIQUE: XR ABDOMEN 1 VIEW (KUB) 03/17/2019 3:20 AM CDT FINDINGS: Injected contrast is within the stomach. There is no contrast extravasation. IMPRESSION: No contrast extravasation.
[2019-03-17] MEDS ORDERED: ALBUTEROL SULFATE 0.083% NEB 2.5 MG/3 ML AMPUL NEB ONE (10:11)
--- NOTE | 2019-03-17 10:12 | ER Document Report ---
Doctor's Note Notes: 03/17/19 10:11 Daughter states that the patient is 3 hours overdue for her usual home albuterol treatment, requests usual nebulized treatment. This is been ordered, then will be transferred home shortly.
[2019-03-17 11:16] VITALS: BP 122/63
== END 2019-03-17 11:16 | disposition home or self-care (01) ==
LOC: ER 02:45
DX: Z43.4 Encounter for attention to other artificial openings of digestive tract (principal); I50.9 Heart failure, unspecified; I11.0 Hypertensive heart disease with heart failure; E78.00 Pure hypercholesterolemia, unspecified; Z86.718 Personal history of other venous thrombosis and embolism; Z74.01 Bed confinement status; Z99.11 Dependence on respirator [ventilator] status; Z86.711 Personal history of pulmonary embolism; Z86.14 Personal history of Methicillin resistant Staphylococcus aureus infection; Z89.511 Acquired absence of right leg below knee
CPT/HCPCS: 94640; 99283; 51702; 82962; 74018; 43762; C1758 ×3; J3490; A9270

== ENCOUNTER 2019-03-30 16:17 | Inpatient (IN) | payer MEDICARE, MEDICAID ==
[2019-03-30] MEDS ORDERED: ALBUTEROL SULFATE 0.083% NEB 2.5 MG/3 ML AMPUL NEB ONE ×2 (19:41→19:44)
--- NOTE | 2019-03-30 20:20 | ER Document Report ---
ED General - General Chief Complaint: Displaced G-tube Stated Complaint: G TUBE ISSUES Time Seen by Provider: 03/30/19 18:54 Mode of Arrival: Medic Information source: Relative TRAVEL OUTSIDE OF THE [place] IN LAST 30 DAYS: No - HPI Onset: Other - 2 weeks. Onset/Duration: Gradual Quality of pain: No pain Severity: None Pain Level: Denies Associated symptoms: Other - Redness and discharge around the G-tube site. Exacerbated by: Denies Relieved by: Denies Similar symptoms previously: No Recently seen / treated by doctor: Yes - Related Data Allergies/Adverse Reactions: alprazolam [From Xanax] Allergy (Verified 03/07/18 09:34) iodine [Iodine] Allergy (Verified 03/07/18 09:34) quetiapine fumarate [From Seroquel] Allergy (Verified 03/07/18 09:34) sertraline [From Zoloft] Allergy (Verified 01/24/19 20:16) metronidazole [From Flagyl] Adverse Reaction (Verified 01/24/19 20:16) Past Medical History - Social History Smoking Status: Never Smoker Chew tobacco use (# tins/day): No Frequency of alcohol use: None Drug Abuse: None Family History: Reviewed & Not Pertinent Patient has suicidal ideation: No Patient has homicidal ideation: No - Past Medical History Cardiac Medical History: Reports: Hx Congestive Heart Failure, Hx DVT, Hx Hypercholesterolemia, Hx Hypertension, Hx Peripheral Vascular Disease, Hx Pulmonary Embolism Pulmonary Medical History: Reports: Hx COPD, Hx Pneumonia - aspiration Endocrine Medical History: Reports: Hx Diabetes Mellitus Type 1, Hx Diabetes Mellitus Type 2 Renal/ Medical History: Denies: Hx Peritoneal Dialysis Psychiatric Medical History: Reports: Hx Dementia Denies: Hx Depression Infectious Medical History: Reports: Hx C-Diff, Hx MRSA, Hx VRE Past Surgical History: Reports: Hx Abdominal Surgery - GI tube, Hx Bowel Surgery, Hx Cardiac Surgery - stents, Hx Orthopedic Surgery - Shoulder. 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 - Immunizations Hx Diphtheria, Pertussis, Tetanus Vaccination: Yes Review of Systems - Review of Systems Constitutional: No symptoms reported EENT: No symptoms reported Cardiovascular: No symptoms reported Respiratory: No symptoms reported Gastrointestinal: Other - Redness around the G-tube site. Genitourinary: No symptoms reported Female Genitourinary: No symptoms reported Musculoskeletal: No symptoms reported Skin: No symptoms reported Hematologic/Lymphatic: No symptoms reported Neurological/Psychological: No symptoms reported -: Yes All other systems reviewed and negative Physical Exam - Vital signs Vitals: Temp Resp BP Pulse Ox 98.6 F 14 150/79 H 100 03/30/19 16:48 03/30/19 16:48 03/30/19 16:48 03/30/19 16:48 Interpretation: Normal - General General appearance: Appears well, Alert - HEENT Head: Normocephalic, Atraumatic Eyes: Normal Pupils: PERRL - Respiratory Respiratory status: No respiratory distress Chest status: Nontender Breath sounds: Normal Chest palpation: Normal - Cardiovascular Rhythm: Regular Heart sounds: Normal auscultation Murmur: No - Abdominal Inspection: Other - Redness around the G-tube site consistent with cellulitis. Distension: Distended Bowel sounds: Normal Tenderness: Tender Organomegaly: No organomegaly - Back Back: Normal, Nontender - Extremities General upper extremity: Normal inspection, Nontender, Normal color, Normal ROM, Normal temperature General lower extremity: Normal inspection, Nontender, Normal color, Normal ROM, Normal temperature, Normal weight bearing. No: Flaquita's sign - Neurological Neuro grossly intact: Yes Cognition: Normal Orientation: AAOx4 Martin Coma Scale Eye Opening: Spontaneous [place] Coma Scale Verbal: Oriented Martin Coma Scale Motor: Obeys Commands Martin Coma Scale Total: 15 Speech: Normal Motor strength normal: LUE, RUE, LLE, RLE Sensory: Normal - Psychological Associated symptoms: Normal affect, Normal mood - Skin Skin Temperature: Warm Skin Moisture: Dry Skin Color: Normal Course - Vital Signs Vital signs: Temp Pulse Resp BP Pulse Ox 98.6 F 80 14 103/56 L 100 03/30/19 16:50 03/30/19 16:50 03/31/19 04:01 03/31/19 04:01 03/31/19 04:01 - Laboratory Result Diagrams: 03/30/19 20:37 03/30/19 20:37 Laboratory results interpreted by me: 03/30/19 03/30/19 03/30/19 20:37 20:37 20:37 WBC 14.1 H RBC 3.43 L Hgb 10.1 L Hct 31.0 L RDW 15.4 H Seg Neutrophils % 40.7 L Eosinophils % 8.0 H Absolute Lymphocytes 5.9 H Absolute Eosinophils 1.1 H APTT 22.1 L Chloride 108 H BUN 69 H Creatinine 1.32 H Est GFR ( Amer) 47 L Est GFR (Non-Af Amer) 38 L Glucose 144 H Calcium 11.3 H Total Protein 8.8 H Urine Protein Ur Leukocyte Esterase Urine Ascorbic Acid 03/30/19 22:37 WBC RBC Hgb Hct RDW Seg Neutrophils % Eosinophils % Absolute Lymphocytes Absolute Eosinophils APTT Chloride BUN Creatinine Est GFR ( Amer) Est GFR (Non-Af Amer) Glucose Calcium Total Protein Urine Protein 30 H Ur Leukocyte Esterase LARGE H Urine Ascorbic Acid 40 H - Diagnostic Test Radiology reviewed: Reports reviewed - Transfer of Care Notes: 03/30/19 23:36 I called and spoke with Dr. Hope who is on-call for Dr. Christensen. He wants patient admitted to the telemetry floor for further evaluation and management. Discharge - Discharge Clinical Impression: Cellulitis of abdominal wall Leukocytosis (leucocytosis) Qualifiers: Leukocytosis type: unspecified Qualified Code(s): D72.829 - Elevated white blood cell count, unspecified UTI (urinary tract infection) Qualifiers: Urinary tract infection type: acute cystitis Hematuria presence: without hematuria Qualified Code(s): N30.00 - Acute cystitis without hematuria Condition: Stable Disposition: ADMITTED INPATIENT Admitting Provider: Fermin Unit Admitted: Telemetry
[2019-03-30 20:50] LABS: ABSOLUTE BASOPHILS # (AUTO) 0.2 10^3/uL (0.0-0.2); ABSOLUTE EOSINOPHILS # (AUTO) 1.1 10^3/uL (0.0-0.6); ABSOLUTE LYMPHOCYTES (AUTO) 5.9 10^3/uL (0.5-4.7); ABSOLUTE MONOCYTES (AUTO) 1.2 10^3/uL (0.1-1.4); ABSOLUTE NEUT (AUTO) 5.8 10^3/uL (1.7-8.2); BASOPHILS % (AUTO) 1.2 % (0-2); HEMOGLOBIN 10.1 g/dL (12.0-15.5); LYMPHOCYTES % (AUTO) 41.4 % (13-45); MEAN CORPUSCULAR HEMOGLOBIN 29.4 pg (27.0-33.4); MEAN CORPUSCULAR HGB CONC 32.5 g/dL (32.0-36.0); MEAN CORPUSCULAR VOLUME 91 fl (80-97); MONOCYTES % (AUTO) 8.7 % (3-13); PLATELET COUNT 426 10^3/uL (150-450); RED BLOOD COUNT 3.43 10^6/uL (3.72-5.28); RED CELL DISTRIBUTION WIDTH 15.4 % (11.5-14.0); SEGMENTED NEUTROPHILS % (AUTO) 40.7 % (42-78); TOTAL CELLS COUNTED % (AUTO) 100 %; WHITE BLOOD COUNT 14.1 10^3/uL (4.0-10.5)
[2019-03-30 21:02] LABS: INTERNATIONAL RATION (INR) 1.07; PROTHROMBIN TIME 13.9 SEC (11.4-15.4)
[2019-03-30 21:03] LABS: PARTIAL THROMBOPLASTIN TIME 22.1 SEC (23.5-35.8)
--- NOTE | 2019-03-30 21:17 | RADIOLOGY REPORT (SQ) ---
EXAM DESCRIPTION: [facility]: CT ABDOMEN PELVIS WITHOUT IV CONTRAST CLINICAL HISTORY: 83 years Female; Redness, pain and discharge around the G-tube TECHNIQUE: CT of the abdomen and pelvis without contrast. All CT scans at this facility use dose modulation, iterative reconstruction, and/or weight based dosing when appropriate to reduce radiation dose to as low as reasonably achievable. COMPARISON: None. FINDINGS: Minimal linear atelectasis is partially visualized in the lower lobes. Coronary artery calcifications are noted. Abdomen: Gastrostomy tube tip is in the fundus of the stomach. There is no edema along the tube. No focal fluid collection. No acute edema adjacent to the stomach. Liver:No focal lesions. No intrahepatic ductal distention. Gallbladder: Possible gallstones, although difficult to evaluate due to artifact from the arms, which likely on the patient's abdomen, creating artifact. Pancreas:Within normal limits Spleen: Somewhat lobular, suggesting previous injury. No acute edema. Right kidney: Lower pole 6 cm calculus. No hydronephrosis. Lower pole cortical scarring. Left kidney: 2 mm lower pole calculus. No hydronephrosis. Adrenal glands:Within normal limits Vascular structures: Extensive aortic calcifications. No aneurysm. Bilateral iliac stents are noted. Pelvis: Small bowel:No significant distention. Appendix:Within normal limits Colon: Contrast material is noted throughout the colon. No acute pericolonic edema. No free intraperitoneal fluid or air. Bones: Left hip arthroplasty is partially visualized. No acute bone findings. Bladder: A urinary catheter is in place. Uterus is grossly unremarkable for this noncontrast exam. No acute pelvic soft tissue edema. Note that evaluation of the bowel and solid organs is somewhat limited due to lack of intravenous and oral contrast. IMPRESSION: 1. Percutaneous gastrostomy tube in place, tip in the fundus. No associated acute edema or focal fluid collection. 2. No bowel obstruction or perforation. 3. Possible cholelithiasis 4. Bilateral renal calculi without hydronephrosis 5. Atherosclerosis and other chronic findings as described.
[2019-03-30 21:27] LABS: ALANINE AMINOTRANSFERASE 12 U/L (9-52); ALKALINE PHOSPHATASE 110 U/L (38-126); ANION GAP 9 (5-19); ASPARTATE AMINO TRANSFERASE 33 U/L (14-36); BILIRUBIN,DIRECT 0.3 mg/dL (0.0-0.4); BILIRUBIN,TOTAL 0.4 mg/dL (0.2-1.3); BLOOD UREA NITROGEN 69 mg/dL (7-20); CALCIUM 11.3 mg/dL (8.4-10.2); CARBON DIOXIDE 23 mmol/L (22-30); CHLORIDE 108 mmol/L (98-107); GLUCOSE 144 mg/dL (75-110); LIPASE 173.2 U/L (23-300); POTASSIUM 4.2 mmol/L (3.6-5.0); SODIUM 139.8 mmol/L (137-145); TOTAL PROTEIN 8.8 g/dL (6.3-8.2)
[2019-03-30 23:04] LABS: TRIPLE PHOSPHATE CRYSTAL,URINE FEW /HPF
[2019-03-30 23:07] LABS: APPEARANCE,URINE SLIGHTLY-CLOUDY; BILIRUBIN,URINE NEGATIVE (NEGATIVE); COLOR,URINE YELLOW; GLUCOSE, URINE NEGATIVE (NEGATIVE); KETONES,URINE NEGATIVE (NEGATIVE)
[2019-03-30 23:08] LABS: LEUKOCYTE ESTERASE,URINE LARGE (NEGATIVE); NITRITE,URINE NEGATIVE (NEGATIVE); PROTEIN,URINE 30 mg/dL (NEGATIVE); UROBILINOGEN,URINE NEGATIVE mg/dL (<2.0)
[2019-03-30] MEDS ORDERED: PIPERACILLIN/TAZOBACTAM 3.375 GM VIAL IV ONE (23:32)
[2019-03-30] MEDS ORDERED: VANCOMYCIN HCL INJ 1000 MG VIAL IV ONE (23:37)
[2019-03-31] MEDS ORDERED: IPRATROPIUM/ALBUTEROL 0.5-2.5 MG/3 ML AMPUL NEB ONE ×2 (01:40→01:41)
[2019-03-31] MEDS ORDERED: DEXTROSE 50%-WATER SYRINGE 25 GM/50 ML DOSE IV PRN (05:30)
[2019-03-31] MEDS ORDERED: DEXTROSE 40% GEL 15 GM TUBE PO PRN (05:30)
[2019-03-31] MEDS ORDERED: DEXTROSE 40% GEL 15 GM TUBE X 2 PO PRN (05:30)
[2019-03-31] MEDS ORDERED: DEXTROSE 50%-WATER SYRINGE 12.5 GM/25 ML DOSE IV PRN (05:30)
[2019-03-31] MEDS ORDERED: GLUCAGON,HUMAN RECOMB 1 MG INJ IM PRN (05:30)
[2019-03-31] MEDS: NORMAL SALINE 1000 ML 1,000 ML IV PRN ×3 (05:47→17:46)
--- NOTE | 2019-03-31 12:02 | PDOC H&P ---
History of Present Illness Admission Date/PCP: 03/30/19 23:48 BAKARI BECKER MD Patient complains of: Displaced PEG tube History of Present Illness: BRIANA BRADY is a 83 year old female patient of Dr Becker who presented to the ED via EMS with family complaining about displaced PEG tube. 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 There is no reported fever. Her medical history is limited due to her underlying inability to verbally communicate. Past Medical History Cardiac Medical History: Reports: Congestive Heart Failure, DVT, Hyperlipidema, Hypertension, Peripheral Vascular Disease, Pulmonary Embolism Pulmonary Medical History: Reports: Chronic Obstructive Pulmonary Disease (COPD), Pneumonia - aspiration Endocrine Medical History: Reports: Diabetes Mellitus Type 1, Diabetes Mellitus Type 2 Psychiatric Medical History: Reports: Dementia Denies: Depression Infectious Medical History: Reports: Clostridium Difficile, Methicillin-Res istant Staph Aureus, Vancomycin-Resistant Enterococci Past Surgical History Past Surgical History: Reports: Orthopedic Surgery - Shoulder. 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 Social History Smoking Status: Never Smoker Frequency of Alcohol Use: None Hx Recreational Drug Use: No Drugs: None Hx Prescription Drug Abuse: No - Advance Directive Resuscitation Status: Full Code Family History Family History: Reviewed & Not Pertinent Parental Family History Reviewed: Yes Children Family History Reviewed: Yes Sibling(s) Family History Reviewed.: Yes Medication/Allergy Allergies/Adverse Reactions: alprazolam [From Xanax] Allergy (Verified 03/07/18 09:34) iodine [Iodine] Allergy (Verified 03/07/18 09:34) quetiapine fumarate [From Seroquel] Allergy (Verified 03/07/18 09:34) sertraline [From Zoloft] Allergy (Verified 01/24/19 20:16) metronidazole [From Flagyl] Adverse Reaction (Verified 01/24/19 20:16) Review of Systems ROS unobtainable: Due to endotracheal tube, Due to mental status Physical Exam Vital Signs: Temp Pulse Resp BP Pulse Ox 97.4 F 95 20 133/77 H 100 03/31/19 11:13 03/31/19 11:13 03/31/19 11:13 03/31/19 11:13 03/31/19 11:13 Intake & Output 03/30/19 03/31/19 04/01/19 06:59 06:59 06:59 Weight 68.039 kg General appearance: PRESENT: other - Remain on ventilator support Head exam: PRESENT: normocephalic Eye exam: PRESENT: conjunctiva pink. ABSENT: scleral icterus Ear exam: PRESENT: normal external ear exam Mouth exam: PRESENT: dry mucosa - fairly Teeth exam: PRESENT: poor dentation Respiratory exam: PRESENT: decreased breath sounds - at lung bases Cardiovascular exam: PRESENT: RRR. ABSENT: diastolic murmur, rubs, systolic murmur Vascular exam: ABSENT: pallor GI/Abdominal exam: PRESENT: normal bowel sounds, soft, other - PEG tube currently replaced with romero catheter to maintain osstomy patency.. ABSENT: m ass, organolmegaly Rectal exam: PRESENT: deferred Extremities exam: PRESENT: right BKA. ABSENT: pedal edema Neurological exam: PRESENT: altered - not verbally communicative due to tracheostomy and ventilator usage Psychiatric exam: ABSENT: agitated Skin exam: PRESENT: dry, erythema, vesicles, warm, other - erythematous reactive lesion around peg tube sites with induration and vesicles in same region, stage 2-3 sacral pressure ulcer and lsion around left ankle joint Results Laboratory Results: 03/30/19 20:37 03/30/19 20:37 03/30/19 03/30/19 03/30/19 20:37 20:37 22:37 WBC 14.1 H RBC 3.43 L Hgb 10.1 L Hct 31.0 L MCV 91 MCH 29.4 MCHC 32.5 RDW 15.4 H Plt Count 426 Seg Neutrophils % 40.7 L Lymphocytes % 41.4 Monocytes % 8.7 Eosinophils % 8.0 H Basophils % 1.2 Absolute Neutrophils 5.8 Absolute Lymphocytes 5.9 H Absolute Monocytes 1.2 Absolute Eosinophils 1.1 H Absolute Basophils 0.2 Sodium 139.8 Potassium 4.2 Chloride 108 H Carbon Dioxide 23 Anion Gap 9 BUN 69 H Creatinine 1.32 H Est GFR ( Amer) 47 L Est GFR (Non-Af Amer) 38 L Glucose 144 H Calcium 11.3 H Total Bilirubin 0.4 AST 33 ALT 12 Alkaline Phosphatase 110 Total Protein 8.8 H Albumin 4.0 Lipase 173.2 Urine Color YELLOW Urine Appearance SLIGHTLY-CLOUDY Urine pH 8.0 Ur Specific [place] 1.010 Urine Protein 30 H Urine Glucose (UA) NEGATIVE Urine Ketones NEGATIVE Urine Blood NEGATIVE Urine Nitrite NEGATIVE Ur Leukocyte Esterase LARGE H Urine WBC (Auto) 33 Urine RBC (Auto) 5 Impressions: Abdomen/Pelvis CT 03/30/19 19:41 IMPRESSION: 1. Percutaneous gastrostomy tube in place, tip in the fundus. No associated acute edema or focal fluid collection. 2. No bowel obstruction or perforation. 3. Possible cholelithiasis 4. Bilateral renal calculi without hydronephrosis 5. Atherosclerosis and other chronic findings as described. Assessment & Plan - Diagnosis (2) Urinary tract infection Qualifiers: Urinary tract infection type: acute cystitis Hematuria presence: without hematuria Qualified Code(s): N30.00 - Acute cystitis without hematuria (6) Stage II pressure ulcer of buttock Qualifiers: - Time Time Spent: 50 to 70 Minutes Medications reviewed and adjusted accordingly: Yes Anticipated discharge: Home with Homehealth Within: Other - Inpatient Certification Based on my medical assessment, after consideration of the patient's comorbidities, presenting symptoms, or acuity I expect that the services needed warrant INPATIENT care.: Yes I certify that my determination is in accordance with my understanding of Medicare's requirements for reasonable and necessary INPATIENT services [42 CFR 412.3e].: Yes Medical Necessity: Significant Comorbidiites Make Outpatient Treatment Too Risky, Need Close Monitoring Due to Risk of Patient Decompensation, Need For IV Fluids, Need For Continuous Telemetry Monitoring, Need for Nebulizer Therapy and Monitoring of Response, Need for IV Antibiotics, Risk of Complication if Not Cared For in Hospital, Risk of Diagnosis Which Will Require Inpatient Eval/Care/Monitoring 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
[2019-03-31] MEDS ORDERED: VANCOMYCIN HCL 0 MG in DEXTROSE 5%-WATER 250 ML IV NR (12:15)
[2019-03-31] MEDS: INSULIN REG, HUMAN 100 UNIT/ML 3 ML VIAL (PYX) SUBCUT SCH ×2 (12:28→17:46)
[2019-03-31] MEDS ORDERED: PIPERACILLIN SODIUM/TAZOBACTAM 3.375 GM in NORMAL SALINE 100 ML IV SCH (12:30)
[2019-03-31] MEDS: PANTOPRAZOLE SODIUM 40 MG VIAL IV SCH ×2 (13:05→21:52)
[2019-03-31] MEDS: ENOXAPARIN SODIUM INJ 40 MG/0.4 ML DISP.SYRIN SUBCUT SCH (13:05)
[2019-03-31] MEDS ORDERED: ACETAMINOPHEN 325 MG TABLET PEG PRN (13:40)
[2019-03-31] MEDS ORDERED: ONDANSETRON HCL 8 MG TABLET PEG PRN (13:40)
[2019-03-31] MEDS: PIPERACILLIN SODIUM/TAZOBACTAM 2.25 GM in NORMAL SALINE 50 ML IV SCH ×2 (14:34→21:42)
[2019-03-31] MEDS: VANCOMYCIN HCL 750 MG in DEXTROSE 5%-WATER 250 ML IV SCH (21:44)
[2019-03-31] MEDS: IPRATROPIUM/ALBUTEROL 0.5-2.5 MG/3 ML AMPUL NEB PRN (23:31)
[2019-04-01] MEDS: PIPERACILLIN SODIUM/TAZOBACTAM 2.25 GM in NORMAL SALINE 50 ML IV SCH ×4 (03:26→20:18)
[2019-04-01] MEDS: INSULIN REG, HUMAN 100 UNIT/ML 3 ML VIAL (PYX) SUBCUT SCH ×4 (03:28→16:15)
[2019-04-01] MEDS: NORMAL SALINE 1000 ML 1,000 ML IV PRN ×2 (05:59→19:00)
[2019-04-01 06:28] LABS: ABSOLUTE BASOPHILS # (AUTO) 0.1 10^3/uL (0.0-0.2); ABSOLUTE EOSINOPHILS # (AUTO) 1.1 10^3/uL (0.0-0.6); ABSOLUTE LYMPHOCYTES (AUTO) 3.4 10^3/uL (0.5-4.7); ABSOLUTE MONOCYTES (AUTO) 1.2 10^3/uL (0.1-1.4); ABSOLUTE NEUT (AUTO) 5.8 10^3/uL (1.7-8.2); BASOPHILS % (AUTO) 1.2 % (0-2); EOSINOPHILS % (AUTO) 9.6 % (0-6); HEMATOCRIT 28.6 % (36.0-47.0); HEMOGLOBIN 9.5 g/dL (12.0-15.5); LYMPHOCYTES % (AUTO) 29.2 % (13-45); MEAN CORPUSCULAR HEMOGLOBIN 30.1 pg (27.0-33.4); MEAN CORPUSCULAR VOLUME 91 fl (80-97); MONOCYTES % (AUTO) 10.4 % (3-13); PLATELET COUNT 396 10^3/uL (150-450); RED BLOOD COUNT 3.15 10^6/uL (3.72-5.28); RED CELL DISTRIBUTION WIDTH 15.4 % (11.5-14.0); SEGMENTED NEUTROPHILS % (AUTO) 49.6 % (42-78); TOTAL CELLS COUNTED % (AUTO) 100 %; WHITE BLOOD COUNT 11.7 10^3/uL (4.0-10.5)
[2019-04-01 07:01] LABS: ALANINE AMINOTRANSFERASE 44 U/L (9-52); ALBUMIN 3.3 g/dL (3.5-5.0); ALKALINE PHOSPHATASE 131 U/L (38-126); ANION GAP 10 (5-19); ASPARTATE AMINO TRANSFERASE 45 U/L (14-36); BILIRUBIN,DIRECT 0.2 mg/dL (0.0-0.4); BILIRUBIN,TOTAL 0.5 mg/dL (0.2-1.3); BLOOD UREA NITROGEN 55 mg/dL (7-20); CALCIUM 10.2 mg/dL (8.4-10.2); CARBON DIOXIDE 19 mmol/L (22-30); CHLORIDE 114 mmol/L (98-107); GLUCOSE 126 mg/dL (75-110); POTASSIUM 3.8 mmol/L (3.6-5.0); TOTAL PROTEIN 7.3 g/dL (6.3-8.2)
[2019-04-01] MEDS: MULTIVITAMIN TABLET PO SCH (09:25)
[2019-04-01] MEDS: ASPIRIN 81 MG TABLET, CHEWABLE PEG SCH (09:25)
[2019-04-01] MEDS: MEMANTINE HCL 10 MG TABLET PEG SCH (09:25)
[2019-04-01] MEDS: ASCORBIC ACID 500 MG TABLET PEG SCH (09:25)
[2019-04-01] MEDS: LACTOBACILLUS ACIDOPHILUS 250 MG TAB PEG SCH (09:25)
[2019-04-01] MEDS: FUROSEMIDE 40 MG TABLET PEG SCH (09:27)
[2019-04-01] MEDS: ENOXAPARIN SODIUM INJ 40 MG/0.4 ML DISP.SYRIN SUBCUT SCH (09:28)
[2019-04-01] MEDS: PANTOPRAZOLE SODIUM 40 MG VIAL IV SCH ×2 (09:28→21:19)
[2019-04-01] MEDS ORDERED: BULGARICUS PEG SCH (10:00)
[2019-04-01] MEDS ORDERED: ACIDOPHILUS PEG SCH (10:00)
--- NOTE | 2019-04-01 16:49 | PDOC PROGRESS REPORT ---
Subjective Progress Note for:: 04/01/19 Subjective:: Daughter at bedside. Maintain NPO through PEG tube with consideration of possible EGD for peg tube replacement tomorrow. remain on ventilator support through tracheostomy tube. No reported fever. Reason For Visit: CELLULITIS OF ABDOMINAL WALL,UTI,PEG TUBE Physical Exam Vital Signs: Temp Pulse Resp BP Pulse Ox 97.2 F 85 22 H 108/84 96 04/01/19 11:49 04/01/19 14:00 04/01/19 11:49 04/01/19 11:49 04/01/19 16:24 Intake & Output 03/31/19 04/01/19 04/02/19 06:59 06:59 06:59 Intake Total 2317 50 Output Total 1000 Balance 1317 50 Weight 68.039 kg 65.8 kg General appearance: PRESENT: mild distress - remainon ventilator support Head exam: PRESENT: atraumatic, normocephalic Eye exam: PRESENT: conjunctiva pink. ABSENT: scleral icterus Ear exam: PRESENT: normal external ear exam Mouth exam: PRESENT: moist Teeth exam: PRESENT: poor dentation Respiratory exam: PRESENT: decreased breath sounds - at lung bases Cardiovascular exam: PRESENT: RRR. ABSENT: diastolic murmur, rubs, systolic murmur Vascular exam: ABSENT: pallor GI/Abdominal exam: PRESENT: normal bowel sounds, soft, other - PEG site erythema and induration persist.. ABSENT: distended, guarding, mass, organolmegaly, rebound, tenderness Extremities exam: PRESENT: right BKA. ABSENT: pedal edema Neurological exam: PRESENT: alert Psychiatric exam: ABSENT: agitated Skin exam: PRESENT: dry, warm, other - sacral region presure ulcers Results Laboratory Results: 04/01/19 05:51 04/01/19 05:51 04/01/19 04/01/19 05:51 05:51 WBC 11.7 H RBC 3.15 L Hgb 9.5 L Hct 28.6 L MCV 91 MCH 30.1 MCHC 33.0 RDW 15.4 H Plt Count 396 Seg Neutrophils % 49.6 Lymphocytes % 29.2 Monocytes % 10.4 Eosinophils % 9.6 H Basophils % 1.2 Absolute Neutrophils 5.8 Absolute Lymphocytes 3.4 Absolute Monocytes 1.2 Absolute Eosinophils 1.1 H Absolute Basophils 0.1 Sodium 143.0 Potassium 3.8 Chloride 114 H Carbon Dioxide 19 L Anion Gap 10 BUN 55 H Creatinine 1.49 H Est GFR ( Amer) 40 L Est GFR (Non-Af Amer) 33 L Glucose 126 H Calcium 10.2 Total Bilirubin 0.5 AST 45 H ALT 44 Alkaline Phosphatase 131 H Total Protein 7.3 Albumin 3.3 L Impressions: Abdomen/Pelvis CT 03/30/19 19:41 IMPRESSION: 1. Percutaneous gastrostomy tube in place, tip in the fundus. No associated acute edema or focal fluid collection. 2. No bowel obstruction or perforation. 3. Possible cholelithiasis 4. Bilateral renal calculi without hydronephrosis 5. Atherosclerosis and other chronic findings as described. Assessment & Plan - Diagnosis (1) Cellulitis of abdominal wall Is this a current diagnosis for this admission?: Yes Plan: Continue IV antibiotic coverage. Follow up on blood culture findings. (2) Urinary tract infection Qualifiers: Urinary tract infection type: acute cystitis Hematuria presence: without hematuria Qualified Code(s): N30.00 - Acute cystitis without hematuria Is this a current diagnosis for this admission?: Yes Plan: Continue IV antibiotic coverage. Follow up on blood culture findings. (3) PEG tube malfunction Is this a current diagnosis for this admission?: Yes Plan: Obtain consultation with Dr. Michelle for PEG tube replacement. (4) Chronic respiratory failure with hypoxia and hypercapnia Is this a current diagnosis for this admission?: Yes Plan: Continue current ventilatory support. 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 (6) Stage II pressure ulcer of buttock Qualifiers: Laterality: unspecified laterality Is this a current diagnosis for this admission?: Yes Plan: Continue IV antibiotic coverage. Follow up on blood culture findings. - Time Time Spent with patient: 25-34 minutes Medications reviewed and adjusted accordingly: Yes Anticipated discharge: Home with Homehealth Within: Other - Inpatient Certification Based on my medical assessment, after consideration of the patient's comorbidities, presenting symptoms, or acuity I expect that the services needed warrant INPATIENT care.: Yes I certify that my determination is in accordance with my understanding of Medicare's requirements for reasonable and necessary INPATIENT services [42 CFR 412.3e].: Yes Medical Necessity: Significant Comorbidiites Make Outpatient Treatment Too Risky, Need Close Monitoring Due to Risk of Patient Decompensation, Need For IV Fluids, Need For Continuous Telemetry Monitoring, Need for Nebulizer Therapy and Monitoring of Response, Need for IV Antibiotics, Risk of Complication if Not Cared For in Hospital, Risk of Diagnosis Which Will Require Inpatient Eval/Care/Monitoring - Plan Summary Plan Summary: Continue current medication management. Obtain CBC with diff and CMP in AM.
[2019-04-01] MEDS: VANCOMYCIN HCL 750 MG in DEXTROSE 5%-WATER 250 ML IV SCH (21:20)
[2019-04-02] MEDS: INSULIN REG, HUMAN 100 UNIT/ML 3 ML VIAL (PYX) SUBCUT SCH ×4 (01:18→17:28)
[2019-04-02] MEDS: PIPERACILLIN SODIUM/TAZOBACTAM 2.25 GM in NORMAL SALINE 50 ML IV SCH ×4 (02:27→21:03)
--- NOTE | 2019-04-02 04:39 | RADIOLOGY REPORT (SQ) ---
EXAM DESCRIPTION: XR CHEST 1 VIEW COMPLETED DATE/TME: 04/02/2019 00:00 CLINICAL HISTORY: 83 years, Female, SOB COMPARISON: 01/24/2019 NUMBER OF VIEWS: One TECHNIQUE: AP view of the chest LIMITATIONS: None. FINDINGS: The lungs are clear. The heart is normal in size. There is no pneumothorax or pleural effusion. A tracheostomy tube remains in place. The bones are demineralized. IMPRESSION: No acute cardiopulmonary abnormality copyright 2010 [employer]- All Rights Reserved
[2019-04-02] MEDS: NORMAL SALINE 1000 ML 1,000 ML IV PRN (05:45)
[2019-04-02 06:03] LABS: CREATINE KINASE MB 1.43 ng/mL (<4.55)
[2019-04-02 06:07] LABS: TROPONIN I 0.047 ng/mL
--- NOTE | 2019-04-02 06:58 | EKG REPORT ---
SEVERITY:- ABNORMAL ECG - JUNCTIONAL TACHYCARDIA vs SINUS TACHYCARDIA INCOMPLETE LEFT BUNDLE BRANCH BLOCK LVH WITH SECONDARY REPOLARIZATION ABNORMALITY : Confirmed by: Mirella Marrero 02-Apr-2019 06:57:57
[2019-04-02] MEDS: ASPIRIN 81 MG TABLET, CHEWABLE PEG SCH (09:04)
[2019-04-02] MEDS: MULTIVITAMIN TABLET PO SCH (09:04)
[2019-04-02] MEDS: LACTOBACILLUS ACIDOPHILUS 250 MG TAB PEG SCH (09:04)
[2019-04-02] MEDS: ASCORBIC ACID 500 MG TABLET PEG SCH (09:04)
[2019-04-02] MEDS: PANTOPRAZOLE SODIUM 40 MG VIAL IV SCH ×2 (09:04→21:03)
[2019-04-02] MEDS: FUROSEMIDE 40 MG TABLET PEG SCH (09:04)
[2019-04-02] MEDS: MEMANTINE HCL 10 MG TABLET PEG SCH (09:05)
[2019-04-02] MEDS: ENOXAPARIN SODIUM INJ 40 MG/0.4 ML DISP.SYRIN SUBCUT SCH (09:05)
[2019-04-02] MEDS ORDERED: ONDANSETRON HCL INJ/PF 4 MG/2 ML SDV ONE (15:19)
--- NOTE | 2019-04-02 16:19 | RADIOLOGY REPORT (SQ) ---
EXAM DESCRIPTION: CHEST SINGLE VIEW COMPLETED DATE/TIME: 04/02/2019 3:48 pm REASON FOR STUDY: Portable STAT Xray r/o aspiration COMPARISON: AP chest 04/02/2019, 01/24/2019 EXAM PARAMETERS: NUMBER OF VIEWS: One view. TECHNIQUE: Single frontal radiographic view of the chest acquired. RADIATION DOSE: NA LIMITATIONS: None. FINDINGS: LUNGS AND PLEURA: No opacities, masses or pneumothorax. No pleural effusion. MEDIASTINUM AND HILAR STRUCTURES: No masses. Contour normal. HEART AND VASCULAR STRUCTURES: Heart normal in size. Normal vasculature. BONES: No acute findings. HARDWARE: Tracheostomy tube tip in the upper trachea. OTHER: No other significant finding. IMPRESSION: NO ACUTE RADIOGRAPHIC FINDING IN THE CHEST. TECHNICAL DOCUMENTATION: JOB ID: [id number] [employer]- All Rights Reserved Reading location - IP/workstation name: [email or web address]
[2019-04-02] MEDS: IPRATROPIUM/ALBUTEROL 0.5-2.5 MG/3 ML AMPUL NEB PRN ×2 (16:32→23:57)
--- NOTE | 2019-04-02 20:42 | PDOC PROGRESS REPORT ---
Subjective Progress Note for:: 04/02/19 Subjective:: Patient was admitted over the weekend, she has multiple comorbid conditions including chronic debilitation, she is vent dependent with a tracheostomy tube, PEG tube dependency on tube feeds, she has indwelling chronic Palacios catheter. She apparently had dislodgment of the PEG tube with subsequent abdominal wall cellulitis there was associated leukocytosis, presently on antibiotic empirically with Zosyn and vancomycin. 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 she is supposed to be hospice patient but patient's daughter has consistently refused Reason For Visit: CELLULITIS OF ABDOMINAL WALL,UTI,PEG TUBE Physical Exam Vital Signs: Temp Pulse Resp BP Pulse Ox 98.8 F 107 H 20 161/81 H 100 04/02/19 15:23 04/02/19 15:23 04/02/19 15:23 04/02/19 15:23 04/02/19 17:03 Intake & Output 04/01/19 04/02/19 04/03/19 06:59 06:59 06:59 Intake Total 2317 2450 50 Output Total 1000 1025 Balance 1317 1425 50 Weight 65.8 kg 66.4 kg General appearance: PRESENT: no acute distress Eye exam: PRESENT: PERRLA Respiratory exam: PRESENT: clear to auscultation monica Cardiovascular exam: PRESENT: +S1, +S2 GI/Abdominal exam: PRESENT: soft Results Laboratory Results: 04/01/19 05:51 04/01/19 05:51 04/02/19 04/02/19 05:20 05:20 Creatine Kinase 28 L CK-MB (CK-2) 1.43 Troponin I 0.047 Impressions: Abdomen/Pelvis CT 03/30/19 19:41 IMPRESSION: 1. Percutaneous gastrostomy tube in place, tip in the fundus. No associated acute edema or focal fluid collection. 2. No bowel obstruction or perforation. 3. Possible cholelithiasis 4. Bilateral renal calculi without hydronephrosis 5. Atherosclerosis and other chronic findings as described. Chest X-Ray 04/02/19 00:00 IMPRESSION: NO ACUTE RADIOGRAPHIC FINDING IN THE CHEST. Assessment & Plan - Diagnosis (1) Cellulitis of abdominal wall Is this a current diagnosis for this admission?: Yes Plan: Continue Zosyn DC vancomycin (2) Urinary tract infection associated with indwelling urethral catheter Qualifiers: Encounter type: initial encounter Qualified Code(s): T83.511A - Infection and inflammatory reaction due to indwelling urethral catheter, initial encounter; N39.0 - Urinary tract infection, site not specified Is this a current diagnosis for this admission?: Yes (3) Chronic respiratory failure requiring continuous mechanical ventilation through tracheostomy Is this a current diagnosis for this admission?: Yes (4) Stage 2 skin ulcer of sacral region Is this a current diagnosis for this admission?: Yes (5) PEG tube malfunction Is this a current diagnosis for this admission?: Yes Plan: I spoke to Dr. Michelle, the plan is for PEG tube placement tomorrow
[2019-04-03] MEDS: INSULIN REG, HUMAN 100 UNIT/ML 3 ML VIAL (PYX) SUBCUT SCH ×4 (00:56→20:00)
[2019-04-03] MEDS: PIPERACILLIN SODIUM/TAZOBACTAM 2.25 GM in NORMAL SALINE 50 ML IV SCH ×4 (03:49→22:07)
[2019-04-03] MEDS: NORMAL SALINE 1000 ML 1,000 ML IV PRN (03:49)
[2019-04-03] MEDS: IPRATROPIUM/ALBUTEROL 0.5-2.5 MG/3 ML AMPUL NEB PRN ×4 (07:59→20:57)
[2019-04-03] MEDS: MULTIVITAMIN TABLET PO SCH (09:10)
[2019-04-03] MEDS: ENOXAPARIN SODIUM INJ 40 MG/0.4 ML DISP.SYRIN SUBCUT SCH (09:10)
[2019-04-03] MEDS: ASPIRIN 81 MG TABLET, CHEWABLE PEG SCH (09:10)
[2019-04-03] MEDS: MEMANTINE HCL 10 MG TABLET PEG SCH (09:10)
[2019-04-03] MEDS: FUROSEMIDE 40 MG TABLET PEG SCH (09:10)
[2019-04-03] MEDS: LACTOBACILLUS ACIDOPHILUS 250 MG TAB PEG SCH (09:10)
[2019-04-03] MEDS: ASCORBIC ACID 500 MG TABLET PEG SCH (09:10)
[2019-04-03] MEDS: PANTOPRAZOLE SODIUM 40 MG VIAL IV SCH (09:11)
[2019-04-03] MEDS ORDERED: ONDANSETRON HCL INJ/PF 4 MG/2 ML SDV ONE (15:02)
[2019-04-03] MEDS: ONDANSETRON HCL INJ/PF 4 MG/2 ML SDV IV PRN (16:12)
--- NOTE | 2019-04-03 19:14 | PDOC CONSULTATION ---
Consultation Consult Date: 04/03/19 Provider Consulted: ROBINSON ANDERS History of Present Illness Admission Date/PCP: 03/30/19 23:48 ABKARI BECKER MD History of Present Illness: BRIANA BRADY is a 83 year old female who was admitted with malfunctioning G-tube. I saw her in the office a week ago when she had a 12 Khmer G-tube that I could not replace in the office. She came into the hospital with a possible infection around the G-tube. No history is obtainable from the patient Past Medical History Cardiac Medical History: Reports: Congestive Heart Failure, DVT, Hyperlipidema, Hypertension, Peripheral Vascular Disease, Pulmonary Embolism Pulmonary Medical History: Reports: Chronic Obstructive Pulmonary Disease (COPD), Pneumonia - aspiration Endocrine Medical History: Reports: Diabetes Mellitus Type 1, Diabetes Mellitus Type 2 Psychiatric Medical History: Reports: Dementia Denies: Depression Infectious Medical History: Reports: Clostridium Difficile, Methicillin- Resistant Staph Aureus, Vancomycin-Resistant Enterococci Past Surgical History Past Surgical History: Reports: Orthopedic Surgery - Shoulder. 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 Social History Smoking Status: Never Smoker Frequency of Alcohol Use: None Hx Recreational Drug Use: No Drugs: None Hx Prescription Drug Abuse: No - Advance Directive Resuscitation Status: Full Code Family History Family History: Reviewed & Not Pertinent Parental Family History Reviewed: No Children Family History Reviewed: NA Sibling(s) Family History Reviewed.: NA Medication/Allergy Home Medications: Acetaminophen [Tylenol 325 mg Tablet] 650 mg PO Q6HP PRN 03/31/19 Albuterol Sulfate [Ventolin 0.083% Neb 2.5 mg/3 mL Ampul] 2.5 mg NEB Q6 03/31/19 Ascorbic Acid [Vitamin C 500 mg Tablet] 500 mg PEG DAILY 03/31/19 Aspirin [Aspirin 81 mg Chewable Tablet] 81 mg PEG DAILY 03/31/19 Furosemide [Lasix 40 mg Tablet] 40 mg PEG DAILY 03/31/19 Insulin Aspart [Novolog Insulin (Aspart) 100 unit/mL] 0 units SQ .SLIDING SCALE 03/31/19 Insulin Detemir [Levemir] 10 units SQ QAM 03/31/19 L. Acidophilus/L.bulgaricus [Lactobacillus Tablet] 1 tab PEG DAILY 03/31/19 Memantine HCl [Namenda 10 mg Tablet] 10 mg PEG DAILY 03/31/19 Multivitamin [Tab-A-Gogo (Multiple Vitamin) Tablet] 1 tab PEG DAILY 03/31/19 Ondansetron HCl [Zofran 8 mg Tablet] 8 mg PEG Q8HP PRN 03/31/19 Allergies/Adverse Reactions: alprazolam [From Xanax] Allergy (Verified 03/07/18 09:34) iodine [Iodine] Allergy (Verified 03/07/18 09:34) quetiapine fumarate [From Seroquel] Allergy (Verified 03/07/18 09:34) sertraline [From Zoloft] Allergy (Verified 01/24/19 20:16) metronidazole [From Flagyl] Adverse Reaction (Verified 01/24/19 20:16) Review of Systems ROS unobtainable: Due to mental status All systems: reviewed and no additional remarkable complaints except as stated Physical Exam Vital Signs: Temp Pulse Resp BP Pulse Ox 98.4 F 92 21 H 136/61 H 99 04/03/19 15:27 04/03/19 16:16 04/03/19 16:16 04/03/19 15:27 04/03/19 16:16 Intake & Output 04/02/19 04/03/19 04/04/19 06:59 06:59 06:59 Intake Total 2450 1200 1100 Output Total 1025 650 Balance 1473 820 2469 Weight 66.4 kg 67 kg Exam: General: Is on the ventilator through a tracheostomy HEENT: There is no pallor or jaundice. PERRLA. Oropharynx normal Respiratory: No chest deformity. No respiratory distress. Chest wall palpitation was unremarkable. Breath sounds were normal Cardiovascular: Heart sounds 1 and 2 normal with no murmurs. Abdominal: 12 Khmer Palacios catheter was in the stomach sutured in place to the skin Extremities: Some edema Results Laboratory Results: 04/01/19 05:51 04/01/19 05:51 04/02/19 04/02/19 05:20 05:20 Creatine Kinase 28 L CK-MB (CK-2) 1.43 Troponin I 0.047 Impressions: Abdomen/Pelvis CT 03/30/19 19:41 IMPRESSION: 1. Percutaneous gastrostomy tube in place, tip in the fundus. No associated acute edema or focal fluid collection. 2. No bowel obstruction or perforation. 3. Possible cholelithiasis 4. Bilateral renal calculi without hydronephrosis 5. Atherosclerosis and other chronic findings as described. Chest X-Ray 04/02/19 00:00 IMPRESSION: NO ACUTE RADIOGRAPHIC FINDING IN THE CHEST. Assessment & Plan - Diagnosis (1) PEG tube malfunction Is this a current diagnosis for this admission?: Yes Plan: She has a 12 Khmer Palacios catheter in her gastrostomy site that needs to be replaced. The immediate skin around the G-tube looked okay but the suture site did appear erythematous (2) Cellulitis of abdominal wall Is this a current diagnosis for this admission?: Yes
--- NOTE | 2019-04-03 19:16 | Operative Report ---
Operative Report DATE OF SURGERY: 04/03/19 Operative Report: Pre-op diagnosis: Malfunctioning G-tube Post-op diagnosis: Malfunctioning G-tube Surgery: Gastrostomy tube replacement Medications: None Tissue removed: None Procedure: The old 12 Urdu Palacios catheter was removed. The balloon was already deflated. A 16 Urdu gastrostomy tube was then inserted without any difficulty. There was flow of bile in the tube. The balloon was inflated with 6 cc of fluid Plan: Resume feeding OPERATION: .
--- NOTE | 2019-04-03 20:24 | PDOC DISCHARGE SUMMARY ---
General - Admit/Disc Date/PCP Admission Date/Primary Care Provider: 03/30/19 23:48 BAKARI BECKER MD Discharge Date: 04/03/19 - Discharge Diagnosis (1) Cellulitis of abdominal wall Is this a current diagnosis for this admission?: Yes (2) Urinary tract infection associated with indwelling urethral catheter Is this a current diagnosis for this admission?: Yes (3) Chronic respiratory failure requiring continuous mechanical ventilation through tracheostomy Is this a current diagnosis for this admission?: Yes (4) Stage 2 skin ulcer of sacral region Is this a current diagnosis for this admission?: Yes (5) PEG tube malfunction Is this a current diagnosis for this admission?: Yes - Additional Information Resuscitation Status: Full Code Prescriptions: Albuterol Sulfate [Ventolin 0.083% Neb 2.5 mg/3 mL Ampul] 2.5 mg NEB Q6 #120 vial.neb Home Medications: Acetaminophen [Tylenol 325 mg Tablet] 650 mg PO Q6HP PRN 03/31/19 Ascorbic Acid [Vitamin C 500 mg Tablet] 500 mg PEG DAILY 03/31/19 Aspirin [Aspirin 81 mg Chewable Tablet] 81 mg PEG DAILY 03/31/19 Furosemide [Lasix 40 mg Tablet] 40 mg PEG DAILY 03/31/19 Insulin Aspart [Novolog Insulin (Aspart) 100 unit/mL] 0 units SQ .SLIDING SCALE 03/31/19 Insulin Detemir [Levemir] 10 units SQ QAM 03/31/19 L. Acidophilus/L.bulgaricus [Lactobacillus Tablet] 1 tab PEG DAILY 03/31/19 Memantine HCl [Namenda 10 mg Tablet] 10 mg PEG DAILY 03/31/19 Multivitamin [Tab-A-Gogo (Multiple Vitamin) Tablet] 1 tab PEG DAILY 03/31/19 Ondansetron HCl [Zofran 8 mg Tablet] 8 mg PEG Q8HP PRN 03/31/19 Albuterol Sulfate [Ventolin 0.083% Neb 2.5 mg/3 mL Ampul] 2.5 mg NEB Q6 #120 vial.neb 04/03/19 History of Present Illness History of Present Illness: BRIANA BRADY is a 83 year old female, Patient with chronic debilitation, vent dependent, PEG tube dependent, chronic indwelling Palacios catheter, with chronic colonizer with bacteria, she was admitted because of dislodgment of the feeding tube and also abdominal wall cellulitis. 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 She be discharged home today, overall prognosis is very poor in this patient. She has chronic indwelling catheter with chronic UTI Physical Exam Vital Signs: Temp Pulse Resp BP Pulse Ox 98.1 F 96 19 145/76 H 98 04/03/19 19:26 04/03/19 19:26 04/03/19 19:26 04/03/19 19:26 04/03/19 19:26 Intake & Output 04/02/19 04/03/19 04/04/19 06:59 06:59 06:59 Intake Total 2450 1200 1100 Output Total 1025 650 Balance 1522 430 2387 Weight 66.4 kg 67 kg General appearance: PRESENT: no acute distress Eye exam: PRESENT: PERRLA Respiratory exam: PRESENT: rhonchi Cardiovascular exam: PRESENT: +S1, +S2 GI/Abdominal exam: PRESENT: soft Neurological exam: PRESENT: alert Results Laboratory Results: 04/01/19 05:51 04/01/19 05:51 04/02/19 04/02/19 05:20 05:20 Creatine Kinase 28 L CK-MB (CK-2) 1.43 Troponin I 0.047 Impressions: Abdomen/Pelvis CT 03/30/19 19:41 IMPRESSION: 1. Percutaneous gastrostomy tube in place, tip in the fundus. No associated acute edema or focal fluid collection. 2. No bowel obstruction or perforation. 3. Possible cholelithiasis 4. Bilateral renal calculi without hydronephrosis 5. Atherosclerosis and other chronic findings as described. Chest X-Ray 04/02/19 00:00 IMPRESSION: NO ACUTE RADIOGRAPHIC FINDING IN THE CHEST. Qualifiers - * PATIENT BEING DISCHARGED WITH ANY OF THE FOLLOWING DIAGNOSIS: No VTE patient discharged on overlapping Therapy?: No Reason(s) for not prescribing Overlap Therapy:: Not indicated Stroke Pt being discharged on Anti-thrombolytic therapy?: No Reason(s) for not prescribing Anti-thrombolytic therapy:: Not indicated Stroke Pt being discharged on Anti-coagulation therapy?: No Reason(s) for not prescribing Anti-coagulation therapy:: Not indicated Stroke Pt being discharged on Statins?: No Reason(s) for not prescribing Statins therapy:: Not indicated [place] Pt being discharged on Aspirin therapy?: No Reason(s) for not prescribing Aspirin therapy:: Not indicated [place] Pt being discharged on Statins?: No Reason(s) for not prescribing Statin therapy:: Not indicated [place] Pt discharged ACEI/ARBS?: No Reason(s) for not prescribing ACEI/ARBS:: Not indicated Acute Heart Failure - Is this a Heart Failure Patient?: No e) For LVEF <35%, discharged on Aldosterone antagonist?: N/A (LVEF > or = 35%)
[2019-04-03 21:43] LABS: VANCOMYCIN,TROUGH 14.1 ug/mL (5.0-20.0)
[2019-04-04] MEDS: IPRATROPIUM/ALBUTEROL 0.5-2.5 MG/3 ML AMPUL NEB PRN ×2 (00:42→04:21)
[2019-04-04] MEDS: INSULIN REG, HUMAN 100 UNIT/ML 3 ML VIAL (PYX) SUBCUT SCH ×3 (01:17→13:28)
[2019-04-04] MEDS: PIPERACILLIN SODIUM/TAZOBACTAM 2.25 GM in NORMAL SALINE 50 ML IV SCH ×3 (03:45→14:07)
[2019-04-04] MEDS: ONDANSETRON HCL INJ/PF 4 MG/2 ML SDV IV PRN (07:41)
[2019-04-04] MEDS: LACTOBACILLUS ACIDOPHILUS 250 MG TAB PEG SCH (10:58)
[2019-04-04] MEDS: ENOXAPARIN SODIUM INJ 40 MG/0.4 ML DISP.SYRIN SUBCUT SCH (10:58)
[2019-04-04] MEDS: ASPIRIN 81 MG TABLET, CHEWABLE PEG SCH (10:58)
[2019-04-04] MEDS: FUROSEMIDE 40 MG TABLET PEG SCH (10:58)
[2019-04-04] MEDS: MULTIVITAMIN TABLET PO SCH (10:58)
[2019-04-04] MEDS: ASCORBIC ACID 500 MG TABLET PEG SCH (10:58)
[2019-04-04] MEDS: MEMANTINE HCL 10 MG TABLET PEG SCH (10:58)
[2019-04-04 14:15] VITALS: BP 146/60
== END 2019-04-04 16:48 | disposition home health service (06) | DRG 327 ==
LOC: ER 16:17 → EH 23:48 → 3N 03-31 06:00
PROVIDERS: ADMIT Internal Medicine; ATTEND Internal Medicine
PROC: 5A1945Z Respiratory Ventilation, 24-96 Consecutive Hours (ICD-10-PCS; 2019-03-31)
PROC: 0DP63UZ Removal of Feeding Device from Stomach, Percutaneous Approach (ICD-10-PCS; principal; 2019-04-03)
DX: K94.23 Gastrostomy malfunction (principal); T83.511A Infection and inflammatory reaction due to indwelling urethral catheter, initial encounter; L03.311 Cellulitis of abdominal wall; Z99.11 Dependence on respirator [ventilator] status; N30.00 Acute cystitis without hematuria; J96.12 Chronic respiratory failure with hypercapnia; J96.11 Chronic respiratory failure with hypoxia; Y84.6 Urinary catheterization as the cause of abnormal reaction of the patient, or of later complication, without mention of misadventure at the time of the procedure; L89.152 Pressure ulcer of sacral region, stage 2; Y83.3 Surgical operation with formation of external stoma as the cause of abnormal reaction of the patient, or of later complication, without mention of misadventure at the time of the procedure; B95.62 Methicillin resistant Staphylococcus aureus infection as the cause of diseases classified elsewhere; E78.5 Hyperlipidemia, unspecified; E11.51 Type 2 diabetes mellitus with diabetic peripheral angiopathy without gangrene; J44.9 Chronic obstructive pulmonary disease, unspecified; F03.90 Unspecified dementia, unspecified severity, without behavioral disturbance, psychotic disturbance, mood disturbance, and anxiety; Z96.641 Presence of right artificial hip joint; I10 Essential (primary) hypertension; Z79.899 Other long term (current) drug therapy; Z79.4 Long term (current) use of insulin; Z79.82 Long term (current) use of aspirin; Z86.718 Personal history of other venous thrombosis and embolism; Z86.711 Personal history of pulmonary embolism; Z89.511 Acquired absence of right leg below knee; Z88.3 Allergy status to other anti-infective agents; Z88.8 Allergy status to other drugs, medicaments and biological substances
CPT/HCPCS: 36415; 71045; 74176; 80053; 80202; 81001; 82550; 82553; 82565; 82962; 83690; 84484; 85025; 85610; 85730; 87040; 93005; 93010; 94002; 94003; 94640; 99284; J1650; J1815; J2405; J2543; J3370; J7030; J7060; J7620; S0164

== ENCOUNTER 2019-05-05 17:54 | Emergency (ER) | payer MEDICARE, MEDICAID ==
--- NOTE | 2019-05-05 18:16 | ER Document Report ---
ED General - General Chief Complaint: Medical Clearance Stated Complaint: SHORTNESS OF BREATH Time Seen by Provider: 05/05/19 18:10 Primary Care Provider: BAKRAI BECKER MD [Primary Care Provider] - Follow up as needed Mode of Arrival: Stretcher Information source: Patient, Relative Cannot obtain history due to: Other - Vent dependent, unable to speak TRAVEL OUTSIDE OF THE [place] IN LAST 30 DAYS: No - HPI Notes: 83-year-old female presents with mechanical vent failure. Patient is ventilatory dependent, due to power failure, battery begin to complete on her home ventilator. Her daughters brought her here because she was told to by the [facility]. She has no active emergent complaint. Comp gated pulmonary medical history including COPD and prolonged ventilation leading to vent dependence. On intensity comes in onset, nonradiating. No other modifying factors, no other associated symptoms, no other provocative or palliative factors. - Related Data Allergies/Adverse Reactions: alprazolam [From Xanax] Allergy (Verified 03/07/18 09:34) iodine [Iodine] Allergy (Verified 03/07/18 09:34) quetiapine fumarate [From Seroquel] Allergy (Verified 03/07/18 09:34) sertraline [From Zoloft] Allergy (Verified 01/24/19 20:16) metronidazole [From Flagyl] Adverse Reaction (Verified 01/24/19 20:16) Past Medical History - General Information source: Relative - Social History Smoking Status: Former Smoker Family History: Reviewed & Not Pertinent - Past Medical History Cardiac Medical History: Reports: Hx Congestive Heart Failure, Hx DVT, Hx Hypercholesterolemia, Hx Hypertension, Hx Peripheral Vascular Disease, Hx Pulmonary Embolism Pulmonary Medical History: Reports: Hx COPD, Hx Pneumonia - aspiration Endocrine Medical History: Reports: Hx Diabetes Mellitus Type 1, Hx Diabetes Mellitus Type 2 Renal/ Medical History: Denies: Hx Peritoneal Dialysis Psychiatric Medical History: Reports: Hx Dementia Denies: Hx Depression Infectious Medical History: Reports: Hx C-Diff, Hx MRSA, Hx VRE Past Surgical History: Reports: Hx Abdominal Surgery - GI tube, Hx Bowel Surgery, Hx Cardiac Surgery - stents, Hx Orthopedic Surgery - Shoulder. 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 - Immunizations Hx Diphtheria, Pertussis, Tetanus Vaccination: Yes Review of Systems - Review of Systems Notes: Review of systems as in the history of present illness, otherwise negative x 10 systems. Physical Exam - Vital signs Vitals: Temp Pulse Resp BP Pulse Ox 98 F 86 24 H 189/78 H 97 05/05/19 18:05 05/05/19 18:05 05/05/19 18:05 05/05/19 18:05 05/05/19 18:05 - Notes Notes: General: Well devloped, no acute distress. On a ventilator HEENT: Normocephalic, atraumatic. Pupils equal round reactive to light. Mucosa moist. No JVD. Chest: No trauma, normal excursion. Coarse but clear breath sounds Respiratory: Good air exchange, normal excursion. Cardiac: Regular rhythm Abdomen: Soft, benign. Nondistended. Back: No asymmetry or gross abnormality. Motor: Grossly normal power and tone. Neurologic: Alert, nonfocal. Vascular: Well perfused Skin: No petechiae or purpura Extremities: Well-healed right AKA Course - Vital Signs Vital signs: Temp Pulse Resp BP Pulse Ox 98 F 86 24 H 189/78 H 97 05/05/19 18:05 05/05/19 18:05 05/05/19 18:05 05/05/19 18:05 05/05/19 18:05 - Transfer of Care Notes: 05/05/19 18:16 83-year-old female presents with failure of her mechanical ventilator at home. She has no active medical complaint. As a courtesy, we will provide her scheduled albuterol at 7 PM. She will stay in the ED until a safe for discharge to the [facility] back on. 05/05/19 22:32 Patient has done well throughout her ED course. Remained stable. [employer] is back on her house and she is discharged to follow-up as discussed. Discharge - Discharge Clinical Impression: Encounter for ventilator dependence during power failure Chronic respiratory failure Qualifiers: Respiratory failure complication: unspecified whether with hypoxia or hypercapnia Qualified Code(s): J96.10 - Chronic respiratory failure, unspecified whether with hypoxia or hypercapnia Condition: Stable Disposition: HOME, SELF-CARE Additional Instructions: I suggest contacting your [employer] company to determine what your options are in the future for emergency back-up. Referrals: BAKARI BECKER MD [Primary Care Provider] - Follow up as needed
[2019-05-05] MEDS ORDERED: ALBUTEROL SULFATE 0.083% NEB 2.5 MG/3 ML AMPUL NEB ONE (19:00)
[2019-05-05 22:53] VITALS: BP 136/54
== END 2019-05-05 22:53 | disposition home or self-care (01) ==
LOC: ER 17:54
DX: Z99.12 Encounter for respirator [ventilator] dependence during power failure (principal); J96.10 Chronic respiratory failure, unspecified whether with hypoxia or hypercapnia; J44.9 Chronic obstructive pulmonary disease, unspecified; Z87.891 Personal history of nicotine dependence; I50.9 Heart failure, unspecified; I11.0 Hypertensive heart disease with heart failure; E11.9 Type 2 diabetes mellitus without complications
CPT/HCPCS: 94640; 99284; A9270

== ENCOUNTER 2019-06-15 11:35 | Inpatient (IN) | payer MEDICARE, MEDICAID ==
--- NOTE | 2019-06-15 11:54 | ER Document Report ---
ED GI/ - General Stated Complaint: ABDOMINAL PAIN Time Seen by Provider: 06/15/19 11:40 Primary Care Provider: BAKARI BECKER MD [Primary Care Provider] - Follow up as needed Mode of Arrival: Medic Information source: Patient TRAVEL OUTSIDE OF THE [place] IN LAST 30 DAYS: No - HPI Patient complains to provider of: Abdominal pain - pt. coming from home with home health care nurse noticed abdominal distention earlier this am. Pt. also with cloudy urine according to [facility]. - Related Data Allergies/Adverse Reactions: alprazolam [From Xanax] Allergy (Verified 03/07/18 09:34) iodine [Iodine] Allergy (Verified 03/07/18 09:34) quetiapine fumarate [From Seroquel] Allergy (Verified 03/07/18 09:34) sertraline [From Zoloft] Allergy (Verified 01/24/19 20:16) metronidazole [From Flagyl] Adverse Reaction (Verified 01/24/19 20:16) Past Medical History - General Information source: Patient - Social History Smoking Status: Unknown if Ever Smoked Family History: Reviewed & Not Pertinent - Past Medical History Cardiac Medical History: Reports: Hx Congestive Heart Failure, Hx DVT, Hx Hypercholesterolemia, Hx Hypertension, Hx Peripheral Vascular Disease, Hx Pulmonary Embolism Pulmonary Medical History: Reports: Hx COPD, Hx Pneumonia - aspiration Endocrine Medical History: Reports: Hx Diabetes Mellitus Type 1, Hx Diabetes Mellitus Type 2 Renal/ Medical History: Denies: Hx Peritoneal Dialysis Psychiatric Medical History: Reports: Hx Dementia Denies: Hx Depression Infectious Medical History: Reports: Hx C-Diff, Hx MRSA, Hx VRE Past Surgical History: Reports: Hx Abdominal Surgery - GI tube, Hx Bowel Surgery, Hx Cardiac Surgery - stents, Hx Orthopedic Surgery - Shoulder. 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 - Immunizations Hx Diphtheria, Pertussis, Tetanus Vaccination: Yes Review of Systems - Review of Systems Constitutional: No symptoms reported EENT: No symptoms reported Cardiovascular: No symptoms reported Respiratory: No symptoms reported Gastrointestinal: See HPI, Abdomen distended, Abdominal pain Genitourinary: See HPI - cloudy urine -: Yes All other systems reviewed and negative Physical Exam - Vital signs Vitals: Pulse Ox 100 06/15/19 12:01 - General General appearance: Alert In distress: None - pt with trach in place - HEENT Pupils: PERRL Mouth/Lips: Normal Mucous membranes: Normal Pharynx: Normal Neck: Normal - Respiratory Respiratory status: No respiratory distress Breath sounds: Normal - trach in good position - Cardiovascular Rhythm: Regular Heart sounds: Normal auscultation Murmur: No - Abdominal Inspection: Normal Distension: Distended - minimal Bowel sounds: Normal Tenderness: Tender - min TTP diffusely without peritoneal signs - Rectal Tenderness: No Stool: Heme positive, Black Hemorrhoids: None - Extremities General lower extremity: Other - Pt with R BKA - Neurological Neuro grossly intact: Yes Course - Re-evaluation Re-evalutation: 06/15/19 14:14 pt's exam essentially unchanged - I will call Dr. Santos for consult - Vital Signs Vital signs: Temp Pulse Resp BP Pulse Ox 98.4 F 14 125/63 100 06/15/19 12:20 06/15/19 14:01 06/15/19 14:01 06/15/19 14:01 - Laboratory Result Diagrams: 06/15/19 12:07 06/15/19 12:07 Laboratory results interpreted by me: 06/15/19 06/15/19 06/15/19 12:07 12:07 12:07 WBC 16.7 H RBC 2.47 L Hgb 6.8 L Hct 21.2 L RDW 17.7 H Absolute Lymphs (auto) 6.0 H Absolute Monos (auto) 1.5 H Absolute Eos (auto) 0.8 H Sodium 134.5 L BUN 114 H Creatinine 2.02 H Est GFR ( Amer) 28 L Est GFR (MDRD) Non-Af 24 L Glucose 131 H Calcium 11.0 H Urine Protein 100 H Urine Blood LARGE H Ur Leukocyte Esterase LARGE H - Diagnostic Test Radiology reviewed: Reports reviewed - CT, CXR- neg - Consults nataly Santos Time consulted: 14:16 Consulted provider: will see as inpatient Critical Care Note - Critical Care Note Total time excluding time spent on procedures (mins): 30 Discharge - Discharge Clinical Impression: Anemia Qualifiers: Anemia type: unspecified type Qualified Code(s): D64.9 - Anemia, unspecified UTI (urinary tract infection) Qualifiers: Urinary tract infection type: catheter-associated UTI Condition: Fair Disposition: ADMITTED INPATIENT Admitting Provider: [facility] Unit Admitted: IMCU Referrals: BAKARI BECKER MD [Primary Care Provider] - Follow up as needed
[2019-06-15 12:28] LABS: ABSOLUTE BASOPHILS # (AUTO) 0.1 10^3/uL (0.0-0.2); ABSOLUTE EOSINOPHILS # (AUTO) 0.8 10^3/uL (0.0-0.6); ABSOLUTE MONOCYTES (AUTO) 1.5 10^3/uL (0.1-1.4); ABSOLUTE NEUT (AUTO) 8.2 10^3/uL (1.7-8.2); BASOPHILS % (AUTO) 0.9 % (0-2); EOSINOPHILS % (AUTO) 4.6 % (0-6); HEMATOCRIT 21.2 % (36.0-47.0); LYMPHOCYTES % (AUTO) 36.2 % (13-45); MEAN CORPUSCULAR HEMOGLOBIN 27.7 pg (27.0-33.4); MEAN CORPUSCULAR HGB CONC 32.3 g/dL (32.0-36.0); MEAN CORPUSCULAR VOLUME 86 fl (80-97); MONOCYTES % (AUTO) 8.9 % (3-13); PLATELET COUNT 383 10^3/uL (150-450); RED BLOOD COUNT 2.47 10^6/uL (3.72-5.28); RED CELL DISTRIBUTION WIDTH 17.7 % (11.5-14.0); SEGMENTED NEUTROPHILS % (AUTO) 49.4 % (42-78); TOTAL CELLS COUNTED % (AUTO) 100 %; WHITE BLOOD COUNT 16.7 10^3/uL (4.0-10.5)
[2019-06-15 12:35] LABS: HEMOGLOBIN 6.8 g/dL (12.0-15.5)
[2019-06-15 12:43] LABS: ALBUMIN 3.7 g/dL (3.5-5.0); ALKALINE PHOSPHATASE 93 U/L (38-126); ANION GAP 12 (5-19); ASPARTATE AMINO TRANSFERASE 28 U/L (14-36); BILIRUBIN,DIRECT 0.1 mg/dL (0.0-0.4); BILIRUBIN,TOTAL 0.4 mg/dL (0.2-1.3); BLOOD UREA NITROGEN 114 mg/dL (7-20); CARBON DIOXIDE 23 mmol/L (22-30); CHLORIDE 100 mmol/L (98-107); GLUCOSE 131 mg/dL (75-110); TOTAL PROTEIN 8.1 g/dL (6.3-8.2)
[2019-06-15] MEDS ORDERED: NORMAL SALINE 1000 ML 1,000 ML IV ONE (13:04)
[2019-06-15 13:10] LABS: APPEARANCE,URINE TURBID; BILIRUBIN,URINE NEGATIVE (NEGATIVE); COLOR,URINE YELLOW; GLUCOSE, URINE NEGATIVE (NEGATIVE); KETONES,URINE NEGATIVE (NEGATIVE); LEUKOCYTE ESTERASE,URINE LARGE (NEGATIVE); NITRITE,URINE NEGATIVE (NEGATIVE); PROTEIN,URINE 100 mg/dL (NEGATIVE); URINE SPECIFIC GRAVITY 1.009; UROBILINOGEN,URINE NEGATIVE mg/dL (<2.0)
--- NOTE | 2019-06-15 13:29 | RADIOLOGY REPORT (SQ) ---
EXAM DESCRIPTION: CHEST SINGLE VIEW COMPLETED DATE/TIME: 06/15/2019 1:18 pm REASON FOR STUDY: fever COMPARISON: 04/02/2019 EXAM PARAMETERS: NUMBER OF VIEWS: One view. TECHNIQUE: Single frontal radiographic view of the chest acquired. RADIATION DOSE: NA LIMITATIONS: None. FINDINGS: LUNGS AND PLEURA: Left lung base scarring versus atelectasis. No focal consolidation. A small left-sided pleural effusion may be present. No pneumothorax. MEDIASTINUM AND HILAR STRUCTURES: No masses. Contour normal. HEART AND VASCULAR STRUCTURES: Heart normal in size. Normal vasculature. BONES: No acute findings. HARDWARE: Tracheostomy sheath projects in the midline over the tracheal air shadow. OTHER: No other significant finding. IMPRESSION: Stable radiographic appearance of the chest. No evidence of acute cardiopulmonary abnor mality. TECHNICAL DOCUMENTATION: JOB ID: [id number] [employer]- All Rights Reserved Reading location - IP/workstation name: [email or web address]
--- NOTE | 2019-06-15 13:57 | RADIOLOGY REPORT (SQ) ---
EXAM DESCRIPTION: CT ABD/PELVIS NO ORAL OR IV COMPLETED DATE/TIME: 06/15/2019 1:38 pm REASON FOR STUDY: abd. distention COMPARISON: 03/30/2019 TECHNIQUE: CT scan of the abdomen and pelvis performed without intravenous or oral contrast. Images reviewed with lung, soft tissue, and bone windows. Reconstructed coronal and sagittal MPR images revi ewed. All images stored on PACS. All CT scanners at this facility use dose modulation, iterative reconstruction, and/or weight based d osing when appropriate to reduce radiation dose to as low as reasonably achievable (ALARA). [facility]: Dose Right [facility]: CareDose [facility]: Dose Right [facility]: Teradose 4D [facility]: Smart Archivas RADIATION DOSE: CT Rad equipment meets quality standard of care and radiation dose reduction techniq ues were employed. CTDIvol: 14.4 mGy. DLP: 835 mGy-cm.mGy. LIMITATIONS: None. FINDINGS: LOWER CHEST: Scant left-sided pleural effusion with compressive atelectasis of the adjacen t lung parenchyma. NON-CONTRASTED LIVER, SPLEEN, ADRENALS: Evaluation limited by lack of IV contrast. No identified sign ificant masses. Re- demonstration of a lobular appearing spleen with calcification, unchanged. PANCREAS: No masses. No peripancreatic inflammatory changes. GALLBLADDER: Gallstones. No inflammatory changes to suggest cholecystitis. RIGHT KIDNEY AND URETER: Atrophic with nonobstructing nephrolith within the inferior pole. No hydron ephrosis or hydroureter. LEFT KIDNEY AND URETER: Stable CT appearance, again noting punctate nonobstructing nephrolith within the inferior pole collecting system. The proximal ureter appears mildly prominent, without obstructi ng stone/lesion. This is of doubtful clinical significance. AORTA AND RETROPERITONEUM: Diffuse atherosclerotic vascular calcifications. No aneurysm. No retroper itoneal masses or adenopathy. BOWEL AND PERITONEAL CAVITY: A percutaneous gastrostomy without evidence of complication. Prominent colonic stool burden, particularly noting expansion of the rectal vault. APPENDIX: Not visualized. PELVIS, BLADDER, AND ABDOMINAL WALL:No abnormal masses. No free fluid. The bladder is largely decomp ressed by a Palacios catheter. BONES: No acute findings. OTHER: No other significant finding. IMPRESSION: Stable CT appearance of the abdomen and pelvis demonstrating percutaneous gastrostomy tu be without evidence of complication. Prominent colonic stool burden without evidence of bowel obstru ction. Stable chronic and incidental findings as detailed above. COMMENT: Quality ID # [id number]: Final reports with documentation of one or more dose reduction techniques (e.g., Automated exposure control, adjustment of the mA and/or kV according to patient size, use of iterative reconstruction technique) TECHNICAL DOCUMENTATION: JOB ID: [id number] [employer]- All Rights Reserved Reading location - IP/workstation name: [email or web address]
[2019-06-15] MEDS ORDERED: NORMAL SALINE 250 ML IV PRN (14:12)
[2019-06-15] MEDS ORDERED: FUROSEMIDE INJ/PF 40 MG/4 ML SDV ONE (17:48)
[2019-06-15] MEDS ORDERED: FUROSEMIDE INJ/PF 40 MG/4 ML SDV IV ONE (18:30)
[2019-06-15] MEDS ORDERED: DEXTROSE 50%-WATER SYRINGE 25 GM/50 ML DOSE IV PRN (19:30)
[2019-06-15] MEDS ORDERED: DEXTROSE 40% GEL 15 GM TUBE X 2 PO PRN (19:30)
[2019-06-15] MEDS ORDERED: DEXTROSE 50%-WATER SYRINGE 12.5 GM/25 ML DOSE IV PRN (19:30)
[2019-06-15] MEDS ORDERED: DEXTROSE 40% GEL 15 GM TUBE PO PRN (19:30)
[2019-06-15] MEDS ORDERED: GLUCAGON,HUMAN RECOMB 1 MG INJ IM PRN (19:30)
[2019-06-15] MEDS: INSULIN LISPRO 100 UNIT/ML 3 ML VIAL SUBCUT SCH (20:16)
[2019-06-15] MEDS ORDERED: ACETAMINOPHEN 325 MG TABLET GT PRN (20:40)
[2019-06-15] MEDS ORDERED: ONDANSETRON 4 MG TAB.RAPDIS GT PRN (20:40)
[2019-06-15] MEDS ORDERED: SENNOSIDES/DOCUSATE 8.6-50 MG 1 EACH TABLET NG PRN (20:40)
[2019-06-15] MEDS: ALBUTEROL SULFATE 0.083% NEB 2.5 MG/3 ML AMPUL NEB PRN (20:56)
[2019-06-15] MEDS: CEFTRIAXONE 1 GM/D5W RTU 1 GM/50 ML RTUPB IV SCH (21:52)
--- NOTE | 2019-06-15 23:00 | PDOC H&P ---
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 She was brought to the emergency room for evaluation of distention of the abdomen. In the emergency room a CAT scan of the abdomen and pelvis was done without contrast did not demonstrate any acute Pathology. Hemogram showed severe anemia, hemoglobin of 6, leukocytosis, the urine in the Palacios catheter very cloudy looks infected Past Medical History Cardiac Medical History: Reports: Congestive Heart Failure, DVT, Hyperlipidema, Hypertension, Peripheral Vascular Disease, Pulmonary Embolism Pulmonary Medical History: Reports: Chronic Obstructive Pulmonary Disease (COPD), Pneumonia - aspiration Endocrine Medical History: Reports: Diabetes Mellitus Type 1, Diabetes Mellitus Type 2 Psychiatric Medical History: Reports: Dementia Denies: Depression Infectious Medical History: Reports: Clostridium Difficile, Methicillin- Resistant Staph Aureus, Vancomycin-Resistant Enterococci Past Surgical History Past Surgical History: Reports: Orthopedic Surgery - Shoulder. 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 Social History Smoking Status: Never Smoker Frequency of Alcohol Use: None Hx Recreational Drug Use: No Drugs: None Hx Prescription Drug Abuse: No Family History Family History: Reviewed & Not Pertinent Parental Family History Reviewed: Yes Children Family History Reviewed: Yes Sibling(s) Family History Reviewed.: Yes Medication/Allergy Home Medications: Acetaminophen [Tylenol 325 mg Tablet] 650 mg GT Q4HP PRN 06/15/19 Acidophilus/Bulgaricus [Lactinex Packet] 1 packet GT DAILY 06/15/19 Albuterol Sulfate [Ventolin 0.083% Neb 2.5 mg/3 mL Ampul] 2.5 mg NEB RTQ6HP PRN 06/15/19 Ascorbic Acid [Vitamin C 500 mg Tablet] 500 mg GT DAILY 06/15/19 Aspirin [Adult Low Dose Aspirin EC] 81 mg GT DAILY 06/15/19 Furosemide [Lasix 40 mg Tablet] 40 mg GT DAILY 06/15/19 Insulin Detemir [Levemir] 10 units SQ QAM 06/15/19 Memantine HCl [Namenda 10 mg Tablet] 10 mg GT DAILY 06/15/19 Multivitamin [Multiple Vitamins] 1 tab GT DAILY 06/15/19 Ondansetron [Zofran Odt 4 mg Tablet] 4 mg GT Q4HP PRN 06/15/19 Sennosides/Docusate Sodium [Stool Softener-Laxative Tablet] 1 tab GT DAILYP PRN 06/15/19 Whey Protein Isolate [Beneprotein] 1 packet GT BID 06/15/19 Allergies/Adverse Reactions: alprazolam [From Xanax] Allergy (Verified 03/07/18 09:34) iodine [Iodine] Allergy (Verified 03/07/18 09:34) quetiapine fumarate [From Seroquel] Allergy (Verified 03/07/18 09:34) sertraline [From Zoloft] Allergy (Verified 01/24/19 20:16) metronidazole [From Flagyl] Adverse Reaction (Verified 01/24/19 20:16) Review of Systems ROS unobtainable: Due to mental status Physical Exam Vital Signs: Temp Pulse Resp BP Pulse Ox 98.4 F 68 12 138/88 H 99 06/15/19 21:15 06/15/19 21:15 06/15/19 21:15 06/15/19 21:15 06/15/19 21:15 Intake & Output 06/14/19 06/15/19 06/16/19 06:59 06:59 06:59 Intake Total 1900 Output Total 1550 Balance 350 Weight 63.4 kg General appearance: PRESENT: no acute distress Head exam: PRESENT: atraumatic, normocephalic Eye exam: PRESENT: PERRLA Ear exam: PRESENT: normal external ear exam Mouth exam: PRESENT: moist, tongue midline Neck exam: PRESENT: full ROM, tracheostomy Respiratory exam: PRESENT: rhonchi Cardiovascular exam: PRESENT: RRR, +S1, +S2, systolic murmur Vascular exam: PRESENT: normal capillary refill GI/Abdominal exam: PRESENT: normal bowel sounds, soft, other - PEG tube Rectal exam: PRESENT: deferred Extremities exam: PRESENT: right AKA Neurological exam: PRESENT: alert Skin exam: PRESENT: dry, intact, warm. ABSENT: cyanosis, rash Results Laboratory Results: 06/15/19 12:07 06/15/19 12:07 06/15/19 06/15/19 06/15/19 12:07 12:07 12:07 WBC 16.7 H RBC 2.47 L Hgb 6.8 L Hct 21.2 L MCV 86 MCH 27.7 MCHC 32.3 RDW 17.7 H Plt Count 383 Seg Neutrophils % 49.4 Sodium 134.5 L Potassium 5.0 Chloride 100 Carbon Dioxide 23 Anion Gap 12 BUN 114 H Creatinine 2.02 H Est GFR ( Amer) 28 L Glucose 131 H Lactic Acid Calcium 11.0 H Total Bilirubin 0.4 AST 28 Alkaline Phosphatase 93 Total Protein 8.1 Albumin 3.7 Urine Color YELLOW Urine Appearance TURBID Urine pH 8.0 Ur Specific [place] 1.009 Urine Protein 100 H Urine Glucose (UA) NEGATIVE Urine Ketones NEGATIVE Urine Blood LARGE H Urine Nitrite NEGATIVE Ur Leukocyte Esterase LARGE H Urine WBC (Auto) >182 Urine RBC (Auto) 105 Blood Type Antibody Screen 06/15/19 06/15/19 13:41 13:41 WBC RBC Hgb Hct MCV MCH MCHC RDW Plt Count Seg Neutrophils % Sodium Potassium Chloride Carbon Dioxide Anion Gap BUN Creatinine Est GFR ( Amer) Glucose Lactic Acid 0.8 Calcium Total Bilirubin AST Alkaline Phosphatase Total Protein Albumin Urine Color Urine Appearance Urine pH Ur Specific [place] Urine Protein Urine Glucose (UA) Urine Ketones Urine Blood Urine Nitrite Ur Leukocyte Esterase Urine WBC (Auto) Urine RBC (Auto) Blood Type A POSITIVE Antibody Screen NEGATIVE Impressions: Abdomen/Pelvis CT 06/15/19 11:45 IMPRESSION: Stable CT appearance of the abdomen and pelvis demonstrating percutaneous gastrostomy tube without evidence of complication. Prominent colonic stool burden without evidence of bowel obstruction. Stable chronic and incidental findings as detailed above. Chest X-Ray 06/15/19 13:04 IMPRESSION: Stable radiographic appearance of the chest. No evidence of acute cardiopulmonary abnormality. Assessment & Plan - Diagnosis (1) Anemia Qualifiers: Anemia type: unspecified type Qualified Code(s): D64.9 - Anemia, unspecified Is this a current diagnosis for this admission?: Yes Plan: Transfuse with red blood cells (2) Urinary tract infection associated with indwelling urethral catheter Qualifiers: Encounter type: initial encounter Qualified Code(s): T83.511A - Infection and inflammatory reaction due to indwelling urethral catheter, initial enco unter; N39.0 - Urinary tract infection, site not specified Is this a current diagnosis for this admission?: Yes Plan: Start IV antibiotic
[2019-06-15 23:44] LABS: MEAN CORPUSCULAR HGB CONC 33.2 g/dL (32.0-36.0); MEAN CORPUSCULAR VOLUME 84 fl (80-97); PLATELET COUNT 339 10^3/uL (150-450); RED BLOOD COUNT 3.68 10^6/uL (3.72-5.28); RED CELL DISTRIBUTION WIDTH 16.9 % (11.5-14.0); WHITE BLOOD COUNT 11.5 10^3/uL (4.0-10.5)
[2019-06-15 23:45] LABS: HEMOGLOBIN 10.3 g/dL (12.0-15.5)
[2019-06-16] MEDS: INSULIN LISPRO 100 UNIT/ML 3 ML VIAL SUBCUT SCH ×4 (00:25→18:49)
[2019-06-16] MEDS ORDERED: INSULIN DETEMIR 10 UNIT SQ SCH (08:00)
[2019-06-16] MEDS: ALBUTEROL SULFATE 0.083% NEB 2.5 MG/3 ML AMPUL NEB PRN ×2 (08:32→16:23)
[2019-06-16] MEDS ORDERED: ASPIRIN 81 MG TABLET, ENT COATED PO SCH (10:00)
[2019-06-16] MEDS ORDERED: ACIDOPHILUS GT SCH (10:00)
[2019-06-16] MEDS ORDERED: MULTIVITAMIN TABLET PO SCH (10:00)
[2019-06-16] MEDS ORDERED: WHEY PROTEIN ISOLATE GT SCH (10:00)
[2019-06-16] MEDS ORDERED: BULGARICUS GT SCH (10:00)
--- NOTE | 2019-06-16 10:17 | PDOC PROGRESS REPORT ---
Subjective Progress Note for:: 06/16/19 Subjective:: Patient is currently doing fair Patient was admitted for the anemia status post blood transfusions and UTI Patient have a chronic respiratory failure on vent Currently on a PEG tube Patient hemoglobin this morning is stable Reason For Visit: ANEMIA, UTI Physical Exam Vital Signs: Temp Pulse Resp BP Pulse Ox 98.6 F 85 17 123/50 L 98 06/16/19 07:59 06/16/19 08:32 06/16/19 08:32 06/16/19 07:59 06/16/19 08:32 Intake & Output 06/15/19 06/16/19 06/17/19 06:59 06:59 06:59 Intake Total 1900 Output Total 2550 Balance -650 Weight 64.9 kg Physical Exam: Chronic vent General appearance: PRESENT: no acute distress Eye exam: PRESENT: PERRLA Respiratory exam: PRESENT: decreased breath sounds Cardiovascular exam: PRESENT: +S1, +S2 Extremities exam: ABSENT: pedal edema Neurological exam: PRESENT: altered Skin exam: PRESENT: dry Results Laboratory Results: 06/15/19 23:18 06/15/19 12:07 06/15/19 06/15/19 06/15/19 12:07 12:07 12:07 WBC 16.7 H RBC 2.47 L Hgb 6.8 L Hct 21.2 L MCV 86 MCH 27.7 MCHC 32.3 RDW 17.7 H Plt Count 383 Seg Neutrophils % 49.4 Sodium 134.5 L Potassium 5.0 Chloride 100 Carbon Dioxide 23 Anion Gap 12 BUN 114 H Creatinine 2.02 H Est GFR ( Amer) 28 L Glucose 131 H Lactic Acid Calcium 11.0 H Total Bilirubin 0.4 AST 28 Alkaline Phosphatase 93 Total Protein 8.1 Albumin 3.7 Urine Color YELLOW Urine Appearance TURBID Urine pH 8.0 Ur Specific H[place]ckley 1.009 Urine Protein 100 H Urine Glucose (UA) NEGATIVE Urine Ketones NEGATIVE Urine Blood LARGE H Urine Nitrite NEGATIVE Ur Leukocyte Esterase LARGE H Urine WBC (Auto) >182 Urine RBC (Auto) 105 Blood Type Antibody Screen 06/15/19 06/15/19 06/15/19 13:41 13:41 23:18 WBC 11.5 H RBC 3.68 L Hgb 10.3 L D Hct 31.0 L MCV 84 MCH 28.0 MCHC 33.2 RDW 16.9 H Plt Count 339 Seg Neutrophils % Sodium Potassium Chloride Carbon Dioxide Anion Gap BUN Creatinine Est GFR ( Amer) Glucose Lactic Acid 0.8 Calcium Total Bilirubin AST Alkaline Phosphatase Total Protein Albumin Urine Color Urine Appearance Urine pH Ur Specific [place] Urine Protein Urine Glucose (UA) Urine Ketones Urine Blood Urine Nitrite Ur Leukocyte Esterase Urine WBC (Auto) Urine RBC (Auto) Blood Type A POSITIVE Antibody Screen NEGATIVE Impressions: Abdomen/Pelvis CT 06/15/19 11:45 IMPRESSION: Stable CT appearance of the abdomen and pelvis demonstrating percutaneous gastrostomy tube without evidence of complication. Prominent colonic stool burden without evidence of bowel obstruction. Stable chronic and incidental findings as detailed above. Chest X-Ray 06/15/19 13:04 IMPRESSION: Stable radiographic appearance of the chest. No evidence of acute cardiopulmonary abnormality. Assessment & Plan - Diagnosis (1) Anemia Qualifiers: Anemia type: unspecified type Qualified Code(s): D64.9 - Anemia, unspecified Is this a current diagnosis for this admission?: Yes (2) Urinary tract infection Qualifiers: Urinary tract infection type: catheter-associated UTI Is this a current diagnosis for this admission?: Yes (3) Acute and chronic respiratory failure, unspecified whether with hypoxia or hypercapnia Qualifiers: Respiratory failure complication: hypoxia and hypercapnia Qualified Code(s): J96.21 - Acute and chronic respiratory failure with hypoxia; J96.22 - Acute and chronic respiratory failure with hypercapnia; J96.22 - Acute and chronic respiratory failure with hypercapnia; J96.22 - Acute and chronic respiratory failure with hypercapnia Is this a current diagnosis for this admission?: Yes (4) CHF (congestive heart failure) Qualifiers: Heart failure type: diastolic Heart failure chronicity: chronic Qualified Code(s): I50.32 - Chronic diastolic (congestive) heart failure Is this a current diagnosis for this admission?: Yes (5) COPD (chronic obstructive pulmonary disease) Qualifiers: COPD type: unspecified COPD Qualified Code(s): J44.9 - Chronic obstructive pulmonary disease, unspecified Is this a current diagnosis for this admission?: Yes (6) Chronic respiratory failure Qualifiers: Respiratory failure complication: unspecified whether with hypoxia or hypercapnia Qualified Code(s): J96.10 - Chronic respiratory failure, unspecified whether with hypoxia or hypercapnia Is this a current diagnosis for this admission?: Yes (7) Decubitus ulcer, stage 3 Qualifiers: Pressure injury location: sacral region Qualified Code(s): L89.153 - Pressure ulcer of sacral region, stage 3 Is this a current diagnosis for this admission?: Yes (8) Dementia Qualifiers: Dementia type: Alzheimer's disease Alzheimer's disease onset: late-onset Dementia behavioral disturbance: without behavioral disturbance Qualified Code(s): G30.1 - Alzheimer's disease with late onset; F02.80 - Dementia in other diseases classified elsewhere without behavioral disturbance; F02.80 - Dementia in other diseases classified elsewhere without behavioral disturbance; F02.80 - Dementia in other diseases classified elsewhere without behavioral disturbance Is this a current diagnosis for this admission?: Yes - Time Time Spent with patient: 15-24 minutes Medications reviewed and adjusted accordingly: Yes Anticipated discharge: Other Within: Other - Plan Summary Plan Summary: Continues to IV antibiotic wait for the culture and sensitivity Continues to chronic vent management Patient's Palacios catheter was just changed this morning working well Continues to other current home medications Overall prognosis is very poor
[2019-06-16] MEDS: INSULIN GLARGINE,HUM.REC.ANLOG 1,000 UNIT/10 ML VIAL SUBCUT SCH (10:33)
[2019-06-16] MEDS: MULTIVITAMINS W-IRON TABLET, CHEWABLE GT SCH (10:34)
[2019-06-16] MEDS: MEMANTINE HCL 10 MG TABLET GT SCH (10:34)
[2019-06-16] MEDS: ASCORBIC ACID 500 MG TABLET GT SCH (10:34)
[2019-06-16] MEDS: ASPIRIN 81 MG TABLET, CHEWABLE GT SCH (10:34)
[2019-06-16] MEDS: AMINO AC/PROTEIN HYDR/WHEY PRO 11 GM/45 ML PKT GT SCH (10:34)
[2019-06-16] MEDS: FUROSEMIDE 40 MG TABLET GT SCH (10:34)
[2019-06-16] MEDS ORDERED: ALBUTEROL SULFATE 0.042% NEB (1.25 MG/3 ML) AMPUL NEB SCH (18:00)
[2019-06-16] MEDS: CEFTRIAXONE 1 GM/D5W RTU 1 GM/50 ML RTUPB IV SCH (21:39)
[2019-06-17] MEDS: ALBUTEROL SULFATE 0.083% NEB 2.5 MG/3 ML AMPUL NEB PRN ×3 (00:14→20:16)
[2019-06-17] MEDS: INSULIN LISPRO 100 UNIT/ML 3 ML VIAL SUBCUT SCH ×4 (00:30→19:07)
[2019-06-17] MEDS: MEMANTINE HCL 10 MG TABLET GT SCH (09:49)
[2019-06-17] MEDS: AMINO AC/PROTEIN HYDR/WHEY PRO 11 GM/45 ML PKT GT SCH (09:49)
[2019-06-17] MEDS: ASCORBIC ACID 500 MG TABLET GT SCH (09:49)
[2019-06-17] MEDS: FUROSEMIDE 40 MG TABLET GT SCH (09:50)
[2019-06-17] MEDS: MULTIVITAMINS W-IRON TABLET, CHEWABLE GT SCH (09:50)
[2019-06-17] MEDS: ASPIRIN 81 MG TABLET, CHEWABLE GT SCH (09:50)
--- NOTE | 2019-06-17 09:54 | PDOC PROGRESS REPORT ---
Subjective Progress Note for:: 06/17/19 Subjective:: Patient is currently doing fair Patient was admitted for the anemia status post blood transfusions and UTI Patient have a chronic respiratory failure on vent Currently on a PEG tube Patient hemoglobin this morning is stable Reason For Visit: ANEMIA, UTI Physical Exam Vital Signs: Temp Pulse Resp BP Pulse Ox 98.3 F 83 16 126/76 H 100 06/17/19 08:54 06/17/19 08:54 06/17/19 08:54 06/17/19 08:54 06/17/19 08:54 Intake & Output 06/16/19 06/17/19 06/18/19 06:59 06:59 06:59 Intake Total 1900 2450 400 Output Total 2550 1650 Balance -650 800 400 Weight 64.9 kg 50.3 kg General appearance: PRESENT: no acute distress Head exam: PRESENT: atraumatic, normocephalic Eye exam: PRESENT: conjunctiva pink, EOMI, PERRLA. ABSENT: scleral icterus Ear exam: PRESENT: normal external ear exam Mouth exam: PRESENT: moist, tongue midline Neck exam: PRESENT: full ROM. ABSENT: carotid bruit, JVD, lymphadenopathy, thyromegaly Respiratory exam: PRESENT: clear to auscultation monica Cardiovascular exam: PRESENT: RRR. ABSENT: diastolic murmur, rubs, systolic murmur Vascular exam: PRESENT: normal capillary refill GI/Abdominal exam: PRESENT: normal bowel sounds, soft. ABSENT: distended, guarding, mass, organolmegaly, rebound, tenderness Rectal exam: PRESENT: deferred Neurological exam: PRESENT: alert, awake. ABSENT: motor sensory deficit Psychiatric exam: PRESENT: appropriate affect, normal mood. ABSENT: homicidal ideation, suicidal ideation Skin exam: PRESENT: dry, intact, warm. ABSENT: cyanosis, rash Results Laboratory Results: 06/15/19 23:18 06/15/19 12:07 Impressions: Abdomen/Pelvis CT 06/15/19 11:45 IMPRESSION: Stable CT appearance of the abdomen and pelvis demonstrating percutaneous gastrostomy tube without evidence of complication. Prominent colonic stool burden without evidence of bowel obstruction. Stable chronic and incidental findings as detailed above. Chest X-Ray 06/15/19 13:04 IMPRESSION: Stable radiographic appearance of the chest. No evidence of acute cardiopulmonary abnormality. Assessment & Plan - Diagnosis (1) Anemia Qualifiers: Anemia type: unspecified type Qualified Code(s): D64.9 - Anemia, unspecified Is this a current diagnosis for this admission?: Yes (2) Urinary tract infection Qualifiers: Urinary tract infection type: catheter-associated UTI Is this a current diagnosis for this admission?: Yes (3) Acute and chronic respiratory failure, unspecified whether with hypoxia or hypercapnia Qualifiers: Respiratory failure complication: hypoxia and hypercapnia Qualified Code(s) : J96.21 - Acute and chronic respiratory failure with hypoxia; J96.22 - Acute and chronic respiratory failure with hypercapnia; J96.22 - Acute and chronic respiratory failure with hypercapnia; J96.22 - Acute and chronic respiratory failure with hypercapnia Is this a current diagnosis for this admission?: Yes (4) CHF (congestive heart failure) Qualifiers: Heart failure type: diastolic Heart failure chronicity: chronic Qualified Code(s): I50.32 - Chronic diastolic (congestive) heart failure Is this a current diagnosis for this admission?: Yes (5) COPD (chronic obstructive pulmonary disease) Qualifiers: COPD type: unspecified COPD Qualified Code(s): J44.9 - Chronic obstructive pulmonary disease, unspecified Is this a current diagnosis for this admission?: Yes (6) Chronic respiratory failure Qualifiers: Respiratory failure complication: unspecified whether with hypoxia or hype rcapnia Qualified Code(s): J96.10 - Chronic respiratory failure, unspecified whether with hypoxia or hypercapnia Is this a current diagnosis for this admission?: Yes (7) Decubitus ulcer, stage 3 Qualifiers: Pressure injury location: sacral region Qualified Code(s): L89.153 - Pressure ulcer of sacral region, stage 3 Is this a current diagnosis for this admission?: Yes (8) Dementia Qualifiers: Dementia type: Alzheimer's disease Alzheimer's disease onset: late-onset Dementia behavioral disturbance: without behavioral disturbance Qualified Code(s): G30.1 - Alzheimer's disease with late onset; F02.80 - Dementia in other diseases classified elsewhere without behavioral disturbance; F02.80 - Dementia in other diseases classified elsewhere without behavioral disturbance; F02.80 - Dementia in other diseases classified elsewhere without behavioral disturbance Is this a current diagnosis for this admission?: Yes - Time Time Spent with patient: 15-24 minutes Medications reviewed and adjusted accordingly: Yes Anticipated discharge: Other Within: Other - Plan Summary Plan Summary: Continues to antibiotic We will consult the surgery for the decubitus ulcer
[2019-06-17] MEDS: INSULIN GLARGINE,HUM.REC.ANLOG 1,000 UNIT/10 ML VIAL SUBCUT SCH (09:57)
--- NOTE | 2019-06-17 10:33 | PDOC CONSULTATION ---
Consultation Consult Date: 06/17/19 Provider Consulted: MERLINE JONES Consult reason:: gluteal decubitus ulcer History of Present Illness Admission Date/PCP: 06/15/19 14:45 BAKARI BECKER MD History of Present Illness: BRIANA BRADY is a 83 year old female with history of respiratory f ailure,anemia and abdominal distention. Son at bed side tells me his mother has gluteal decubitus ulcer for about a year. They are taking good care of her at home with turning to sides and avoiding pressure on her butt. Surgery is being consulted for decubitus ulcer on both gluteal areas. Past Medical History Cardiac Medical History: Reports: Congestive Heart Failure, DVT, Hyperlipidema, Hypertension, Peripheral Vascular Disease, Pulmonary Embolism Pulmonary Medical History: Reports: Chronic Obstructive Pulmonary Disease (COPD), Pneumonia - aspiration Endocrine Medical History: Reports: Diabetes Mellitus Type 1, Diabetes Mellitus Type 2 Psychiatric Medical History: Reports: Dementia Denies: Depression Infectious Medical History: Reports: Clostridium Difficile, Methicillin- Resistant Staph Aureus, Vancomycin-Resistant Enterococci Past Surgical History Past Surgical History: Reports: Orthopedic Surgery - Shoulder. 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 Social History Smoking Status: Never Smoker Frequency of Alcohol Use: None Hx Recreational Drug Use: No Drugs: None Hx Prescription Drug Abuse: No Family History Family History: Reviewed & Not Pertinent Parental Family History Reviewed: Yes Children Family History Reviewed: No Sibling(s) Family History Reviewed.: No Medication/Allergy Home Medications: Acetaminophen [Tylenol 325 mg Tablet] 650 mg GT Q4HP PRN 06/15/19 Acidophilus/Bulgaricus [Lactinex Packet] 1 packet GT DAILY 06/15/19 Albuterol Sulfate [Ventolin 0.083% Neb 2.5 mg/3 mL Ampul] 2.5 mg NEB RTQ6HP PRN 06/15/19 Ascorbic Acid [Vitamin C 500 mg Tablet] 500 mg GT DAILY 06/15/19 Aspirin [Adult Low Dose Aspirin EC] 81 mg GT DAILY 06/15/19 Furosemide [Lasix 40 mg Tablet] 40 mg GT DAILY 06/15/19 Insulin Detemir [Levemir] 10 units SQ QAM 06/15/19 Memantine HCl [Namenda 10 mg Tablet] 10 mg GT DAILY 06/15/19 Multivitamin [Multiple Vitamins] 1 tab GT DAILY 06/15/19 Ondansetron [Zofran Odt 4 mg Tablet] 4 mg GT Q4HP PRN 06/15/19 Sennosides/Docusate Sodium [Stool Softener-Laxative Tablet] 1 tab GT DAILYP PRN 06/15/19 Whey Protein Isolate [Beneprotein] 1 packet GT BID 06/15/19 Allergies/Adverse Reactions: alprazolam [From Xanax] Allergy (Verified 03/07/18 09:34) iodine [Iodine] Allergy (Verified 03/07/18 09:34) quetiapine fumarate [From Seroquel] Allergy (Verified 03/07/18 09:34) sertraline [From Zoloft] Allergy (Verified 01/24/19 20:16) metronidazole [From Flagyl] Adverse Reaction (Verified 01/24/19 20:16) Review of Systems Constitutional: PRESENT: as per HPI Physical Exam Vital Signs: Temp Pulse Resp BP Pulse Ox 98.3 F 83 16 126/76 H 100 06/17/19 08:54 06/17/19 08:54 06/17/19 08:54 06/17/19 08:54 06/17/19 08:54 Intake & Output 06/16/19 06/17/19 06/18/19 06:59 06:59 06:59 Intake Total 1900 2450 400 Output Total 2550 1650 Balance -650 800 400 Weight 64.9 kg 50.3 kg General appearance: PRESENT: no acute distress Exam: Has a relatively shallow stage 2 left posterior gluteal decubitus ulcer with no obvious need for debridement Stage 1 decubitus ulcer on the opposite right gluteal area Results Laboratory Results: 06/15/19 23:18 06/15/19 12:07 Impressions: Abdomen/Pelvis CT 06/15/19 11:45 IMPRESSION: Stable CT appearance of the abdomen and pelvis demonstrating percutaneous gastrostomy tube without evidence of complication. Prominent colonic stool burden without evidence of bowel obstruction. Stable chronic and incidental findings as detailed above. Chest X-Ray 06/15/19 13:04 IMPRESSION: Stable radiographic appearance of the chest. No evidence of acute cardiopulmonary abnormality. Assessment & Plan - Diagnosis (1) Stage 2 left gluteal decubitus ulcer Is this a current diagnosis for this admission?: Yes (2) Stage 1 decubitus ulcer right gluteal ar Is this a current diagnosis for this admission?: Yes - Time Time Spent: 30 to 50 Minutes - Plan Summary Plan Summary: Continue prevention of pressure on her buttocks with frequent turning to sides Continue dry Allevyn dressings over silvadene cream BID
[2019-06-17 12:07] LABS: ABSOLUTE BASOPHILS # (AUTO) 0.1 10^3/uL (0.0-0.2); ABSOLUTE LYMPHOCYTES (AUTO) 2.3 10^3/uL (0.5-4.7); ABSOLUTE MONOCYTES (AUTO) 1.1 10^3/uL (0.1-1.4); ABSOLUTE NEUT (AUTO) 5.4 10^3/uL (1.7-8.2); BASOPHILS % (AUTO) 0.6 % (0-2); EOSINOPHILS % (AUTO) 10.2 % (0-6); HEMATOCRIT 28.9 % (36.0-47.0); HEMOGLOBIN 9.6 g/dL (12.0-15.5); LYMPHOCYTES % (AUTO) 22.9 % (13-45); MEAN CORPUSCULAR HEMOGLOBIN 28.2 pg (27.0-33.4); MEAN CORPUSCULAR HGB CONC 33.2 g/dL (32.0-36.0); MEAN CORPUSCULAR VOLUME 85 fl (80-97); MONOCYTES % (AUTO) 10.9 % (3-13); PLATELET COUNT 342 10^3/uL (150-450); RED CELL DISTRIBUTION WIDTH 17.8 % (11.5-14.0); SEGMENTED NEUTROPHILS % (AUTO) 55.4 % (42-78); TOTAL CELLS COUNTED % (AUTO) 100 %; WHITE BLOOD COUNT 9.8 10^3/uL (4.0-10.5)
[2019-06-17 12:31] LABS: ANION GAP 11 (5-19); BLOOD UREA NITROGEN 119 mg/dL (7-20); CALCIUM 10.5 mg/dL (8.4-10.2); CARBON DIOXIDE 22 mmol/L (22-30); CHLORIDE 105 mmol/L (98-107); GLUCOSE 162 mg/dL (75-110); POTASSIUM 4.3 mmol/L (3.6-5.0)
[2019-06-17] MEDS: SILVER SULFADIAZINE 1% CREAM 25 GM TP SCH (16:04)
[2019-06-17] MEDS: CEFTRIAXONE 1 GM/D5W RTU 1 GM/50 ML RTUPB IV SCH (22:03)
[2019-06-18] MEDS: INSULIN LISPRO 100 UNIT/ML 3 ML VIAL SUBCUT SCH ×4 (01:09→18:34)
[2019-06-18 05:33] LABS: ABSOLUTE BASOPHILS # (AUTO) 0.1 10^3/uL (0.0-0.2); ABSOLUTE EOSINOPHILS # (AUTO) 1.6 10^3/uL (0.0-0.6); ABSOLUTE LYMPHOCYTES (AUTO) 3.4 10^3/uL (0.5-4.7); ABSOLUTE MONOCYTES (AUTO) 0.9 10^3/uL (0.1-1.4); ABSOLUTE NEUT (AUTO) 5.3 10^3/uL (1.7-8.2); BASOPHILS % (AUTO) 1.1 % (0-2); HEMOGLOBIN 10.4 g/dL (12.0-15.5); LYMPHOCYTES % (AUTO) 29.9 % (13-45); MEAN CORPUSCULAR HEMOGLOBIN 27.8 pg (27.0-33.4); MEAN CORPUSCULAR HGB CONC 32.5 g/dL (32.0-36.0); MEAN CORPUSCULAR VOLUME 86 fl (80-97); MONOCYTES % (AUTO) 8.3 % (3-13); RED BLOOD COUNT 3.74 10^6/uL (3.72-5.28); RED CELL DISTRIBUTION WIDTH 17.9 % (11.5-14.0); SEGMENTED NEUTROPHILS % (AUTO) 46.7 % (42-78); TOTAL CELLS COUNTED % (AUTO) 100 %; WHITE BLOOD COUNT 11.4 10^3/uL (4.0-10.5)
[2019-06-18 05:40] LABS: ANION GAP 10 (5-19); BLOOD UREA NITROGEN 113 mg/dL (7-20); CALCIUM 10.6 mg/dL (8.4-10.2); CARBON DIOXIDE 23 mmol/L (22-30); CHLORIDE 106 mmol/L (98-107); GLUCOSE 155 mg/dL (75-110); POTASSIUM 4.8 mmol/L (3.6-5.0)
[2019-06-18 06:12] LABS: PLATELET COUNT 356 10^3/uL (150-450)
[2019-06-18] MEDS: ALBUTEROL SULFATE 0.083% NEB 2.5 MG/3 ML AMPUL NEB PRN (10:18)
[2019-06-18] MEDS: INSULIN GLARGINE,HUM.REC.ANLOG 1,000 UNIT/10 ML VIAL SUBCUT SCH (11:15)
[2019-06-18] MEDS: MEMANTINE HCL 10 MG TABLET GT SCH (11:16)
[2019-06-18] MEDS: MULTIVITAMINS W-IRON TABLET, CHEWABLE GT SCH (11:16)
[2019-06-18] MEDS: ASPIRIN 81 MG TABLET, CHEWABLE GT SCH (11:16)
[2019-06-18] MEDS: FUROSEMIDE 40 MG TABLET GT SCH (11:16)
[2019-06-18] MEDS: ASCORBIC ACID 500 MG TABLET GT SCH (11:16)
[2019-06-18] MEDS: CLINDAMYCIN 600 MG/D5W RTU 600 MG/50 ML RTUPB IV SCH ×2 (11:16→22:06)
[2019-06-18] MEDS: SILVER SULFADIAZINE 1% CREAM 25 GM TP SCH (11:18)
[2019-06-18] MEDS: AMINO AC/PROTEIN HYDR/WHEY PRO 11 GM/45 ML PKT GT SCH (11:18)
--- NOTE | 2019-06-18 20:58 | PDOC DISCHARGE SUMMARY ---
General - Admit/Disc Date/PCP Admission Date/Primary Care Provider: 06/15/19 14:45 BAKARI BECKER MD Discharge Date: 06/18/19 - Discharge Diagnosis (1) MRSA (methicillin resistant Staphylococcus aureus) septicemia Is this a current diagnosis for this admission?: Yes (2) Anemia Is this a current diagnosis for this admission?: Yes (3) Urinary tract infection associated with indwelling urethral catheter Is this a current diagnosis for this admission?: Yes (4) Stage 1 decubitus ulcer right gluteal ar Is this a current diagnosis for this admission?: Yes (5) Stage 2 left gluteal decubitus ulcer Is this a current diagnosis for this admission?: Yes - Additional Information Prescriptions: RX: Clindamycin HCl [Cleocin 300 mg Capsule] 300 mg PO Q8H #21 capsule Home Medications: RX: Acetaminophen [Tylenol 325 mg Tablet] 650 mg GT Q4HP PRN 06/15/19 RX: Acidophilus/Bulgaricus [Lactinex Packet] 1 packet GT DAILY 06/15/19 RX: Albuterol Sulfate [Ventolin 0.083% Neb 2.5 mg/3 mL Ampul] 2.5 mg NEB RTQ6HP PRN 06/15/19 RX: Ascorbic Acid [Vitamin C 500 mg Tablet] 500 mg GT DAILY 06/15/19 RX: Aspirin [Adult Low Dose Aspirin EC] 81 mg GT DAILY 06/15/19 RX: Furosemide [Lasix 40 mg Tablet] 40 mg GT DAILY 06/15/19 RX: Insulin Detemir [Levemir] 10 units SQ QAM 06/15/19 RX: Memantine HCl [Namenda 10 mg Tablet] 10 mg GT DAILY 06/15/19 RX: Multivitamin [Multiple Vitamins] 1 tab GT DAILY 06/15/19 RX: Ondansetron [Zofran Odt 4 mg Tablet] 4 mg GT Q4HP PRN 06/15/19 RX: Sennosides/Docusate Sodium [Stool Softener-Laxative Tablet] 1 tab GT DAILYP PRN 06/15/19 RX: Whey Protein Isolate [Beneprotein] 1 packet GT BID 06/15/19 RX: Clindamycin HCl [Cleocin 300 mg Capsule] 300 mg PO Q8H #21 capsule 06/18/19 History of Present Illness History of Present Illness: BRIANA BRADY is a 83 year old female, She is well-known to me and to this hospital, she has chronic multiple comorbid conditions including chronic rest caleb failure she is on vent management chronically, 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 She was brought to the emergency room for evaluation of distention of the abdomen. In the emergency room a CAT scan of the abdomen and pelvis was done without contrast did not demo nstrate any acute Pathology. Hemogram showed severe anemia, hemoglobin of 6, leukocytosis, the urine in the Palacios catheter very cloudy looks infected.The urine culture did not grow any pathology, the blood culture grew MRSA sensitive to clindamycin this was from 1 bottle., This is probably from the skin.I saw patient today on the floor, she is at baseline, she was seen by the surgeon for the evaluation of gluteal ulcer. This patient is hospice appropriate but family continues to refuse hospice care and continue to maintain patient on life sustaining devices including chronic ventilator dependency, tube feed, chronic indwelling Palacios catheter patient essentially bedbound she has right leg a mputation with extremely poor quality of life. 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 I saw her today by the bedside clinically she does not look septic, it is best to discharge her from the hospital before she deteriorates with other mobidity Hospital Course Hospital Course: Patient with multiple comorbid conditions, chronic debilitation, bedbound, sacral decubitus ulcer, she has chronic indwelling Palacios catheter, vent depe ndent, on tube feed. She was brought to the emergency room for evaluation of abdominal distention. CT scan of the abdomen and pelvis was done, it did not demonstrate any pathology, the urine looks grossly abnormal, which is not uncommon, She has chronic indwelling urethra catheter, On admission she was not anemic, the hemoglobin was 6.8, there was no evidence of blood loss. Physical Exam Vital Signs: Temp Pulse Resp BP Pulse Ox 98.0 F 61 16 124/53 L 100 06/18/19 17:51 06/18/19 19:00 06/18/19 17:51 06/18/19 17:51 06/18/19 17:51 Intake & Output 06/17/19 06/18/19 06/19/19 06:59 06:59 06:59 Intake Total 2450 2450 850 Output Total 1650 2050 Balance 800 400 850 Weight 50.3 kg 69.3 kg General appearance: PRESENT: no acute distress Eye exam: PRESENT: PERRLA Respiratory exam: PRESENT: clear to auscultation monica Cardiovascular exam: PRESENT: +S1, +S2 GI/Abdominal exam: PRESENT: soft Neurological exam: PRESENT: alert Results Laboratory Results: 06/18/19 04:39 06/18/19 04:39 06/18/19 06/18/19 04:39 04:39 WBC 11.4 H RBC 3.74 Hgb 10.4 L Hct 32.0 L MCV 86 MCH 27.8 MCHC 32.5 RDW 17.9 H Plt Count 356 Seg Neutrophils % 46.7 Sodium 139.4 Potassium 4.8 Chloride 106 Carbon Dioxide 23 Anion Gap 10 BUN 113 H Creatinine 1.52 H Est GFR ( Amer) 40 L Glucose 155 H Calcium 10.6 H 06/15/19 13:41 Blood Blood Culture - Final Mrsa (Meth Resis Staph Aureus) Impressions: Abdomen/Pelvis CT 06/15/19 11:45 IMPRESSION: Stable CT appearance of the abdomen and pelvis demonstrating percutaneous gastrostomy tube without evidence of complication. Prominent colonic stool burden without evidence of bowel obstruction. Stable chronic and incidental findings as detailed above. Chest X-Ray 06/15/19 13:04 IMPRESSION: Stable radiographic appearance of the chest. No evidence of acute cardiopulmonary abnormality. Qualifiers PATIENT BEING DISCHARGED WITH ANY OF THE FOLLOWING DIAGNOSIS: No VTE patient discharged on overlapping Therapy?: No Reason(s) for not prescribing Overlap Therapy:: Not indicated Stroke Pt being discharged on Anti-thrombolytic therapy?: No Reason(s) for not prescribing Anti-thrombolytic therapy:: Not indicated, Contraindicated Stroke Pt being discharged on Anti-coagulation therapy?: No Reason(s) for not prescribing Anti-coagulation therapy:: Not indicated Stroke Pt being discharged on Statins?: No Reason(s) for not prescribing Statins therapy:: Not indicated NC Pt being discharged on Aspirin therapy?: No Reason(s) for not prescribing Aspirin therapy:: Not indicated NC Pt being discharged on Statins?: No Reason(s) for not prescribing Statin therapy:: Not indicated NC Pt discharged ACEI/ARBS?: No Reason(s) for not prescribing ACEI/ARBS:: Not indicated Acute Heart Failure - Is this a Heart Failure Patient?: No
[2019-06-19] MEDS: CLINDAMYCIN 600 MG/D5W RTU 600 MG/50 ML RTUPB IV SCH (05:43)
[2019-06-19] MEDS: INSULIN LISPRO 100 UNIT/ML 3 ML VIAL SUBCUT SCH ×2 (06:11)
[2019-06-19 07:30] LABS: ANION GAP 13 (5-19); CALCIUM 10.6 mg/dL (8.4-10.2); CARBON DIOXIDE 21 mmol/L (22-30); CHLORIDE 104 mmol/L (98-107); GLUCOSE 144 mg/dL (75-110); POTASSIUM 4.9 mmol/L (3.6-5.0)
[2019-06-19 07:38] LABS: BLOOD UREA NITROGEN 119 mg/dL (7-20)
[2019-06-19] MEDS: MULTIVITAMINS W-IRON TABLET, CHEWABLE GT SCH (09:30)
[2019-06-19] MEDS: ASPIRIN 81 MG TABLET, CHEWABLE GT SCH (09:30)
[2019-06-19] MEDS: ASCORBIC ACID 500 MG TABLET GT SCH (09:30)
[2019-06-19] MEDS: MEMANTINE HCL 10 MG TABLET GT SCH (09:30)
[2019-06-19] MEDS: AMINO AC/PROTEIN HYDR/WHEY PRO 11 GM/45 ML PKT GT SCH (09:31)
[2019-06-19] MEDS: FUROSEMIDE 40 MG TABLET GT SCH (09:31)
[2019-06-19] MEDS: SILVER SULFADIAZINE 1% CREAM 25 GM TP SCH (09:31)
[2019-06-19] MEDS: INSULIN GLARGINE,HUM.REC.ANLOG 1,000 UNIT/10 ML VIAL SUBCUT SCH (09:31)
[2019-06-19 11:55] VITALS: BP 138/88
== END 2019-06-19 13:07 | disposition home or self-care (01) | DRG 699 ==
LOC: ER 11:35 → EH 14:45 → 3S 17:08
PROVIDERS: ADMIT Internal Medicine; ATTEND Internal Medicine
PROC: 5A1945Z Respiratory Ventilation, 24-96 Consecutive Hours (ICD-10-PCS; principal; 2019-06-15)
PROC: 0BH17EZ Insertion of Endotracheal Airway into Trachea, Via Natural or Artificial Opening (ICD-10-PCS; 2019-06-15)
PROC: 30233N1 Transfusion of Nonautologous Red Blood Cells into Peripheral Vein, Percutaneous Approach (ICD-10-PCS; 2019-06-15)
DX: T83.511A Infection and inflammatory reaction due to indwelling urethral catheter, initial encounter (principal); Z99.11 Dependence on respirator [ventilator] status; J96.10 Chronic respiratory failure, unspecified whether with hypoxia or hypercapnia; I50.32 Chronic diastolic (congestive) heart failure; D64.9 Anemia, unspecified; N39.0 Urinary tract infection, site not specified; L89.311 Pressure ulcer of right buttock, stage 1; L89.322 Pressure ulcer of left buttock, stage 2; Z93.0 Tracheostomy status; Z93.1 Gastrostomy status; I11.0 Hypertensive heart disease with heart failure; E11.51 Type 2 diabetes mellitus with diabetic peripheral angiopathy without gangrene; J44.9 Chronic obstructive pulmonary disease, unspecified; F02.80 Dementia in other diseases classified elsewhere, unspecified severity, without behavioral disturbance, psychotic disturbance, mood disturbance, and anxiety; G30.1 Alzheimer's disease with late onset; Z89.611 Acquired absence of right leg above knee; B95.62 Methicillin resistant Staphylococcus aureus infection as the cause of diseases classified elsewhere; Z16.21 Resistance to vancomycin; R53.81 Other malaise; Z96.641 Presence of right artificial hip joint; E78.5 Hyperlipidemia, unspecified; R19.5 Other fecal abnormalities; Z88.8 Allergy status to other drugs, medicaments and biological substances; Z91.041 Radiographic dye allergy status; Z79.82 Long term (current) use of aspirin; Z79.4 Long term (current) use of insulin; Z74.01 Bed confinement status; Z86.718 Personal history of other venous thrombosis and embolism; Z86.711 Personal history of pulmonary embolism; Z87.01 Personal history of pneumonia (recurrent); Z95.5 Presence of coronary angioplasty implant and graft
CPT/HCPCS: 36415; 36430; 71045; 74176; 80048; 80053; 81001; 82962; 83605; 85025; 86850; 86900; 86901; 86920; 87040; 87077; 87186; 94002; 94003; 94640; 96360; 99291; B4155; J0696; J1815; J1940; J7030; J7050; P9016

== ENCOUNTER 2019-07-24 09:29 | Emergency (ER) | payer MEDICARE, MEDICAID ==
[2019-07-24] MEDS ORDERED: ASPIRIN 81 MG TABLET, CHEWABLE PO ONE (09:30)
[2019-07-24 11:06] LABS: ABSOLUTE BASOPHILS # (AUTO) 0.1 10^3/uL (0.0-0.2); ABSOLUTE LYMPHOCYTES (AUTO) 3.9 10^3/uL (0.5-4.7); ABSOLUTE NEUT (AUTO) 5.3 10^3/uL (1.7-8.2); BASOPHILS % (AUTO) 1.1 % (0-2); EOSINOPHILS % (AUTO) 8.9 % (0-6); HEMATOCRIT 31.3 % (36.0-47.0); HEMOGLOBIN 10.1 g/dL (12.0-15.5); LYMPHOCYTES % (AUTO) 34.7 % (13-45); MEAN CORPUSCULAR HEMOGLOBIN 28.1 pg (27.0-33.4); MEAN CORPUSCULAR HGB CONC 32.2 g/dL (32.0-36.0); MEAN CORPUSCULAR VOLUME 87 fl (80-97); MONOCYTES % (AUTO) 8.8 % (3-13); PLATELET COUNT 342 10^3/uL (150-450); RED BLOOD COUNT 3.59 10^6/uL (3.72-5.28); RED CELL DISTRIBUTION WIDTH 18.2 % (11.5-14.0); SEGMENTED NEUTROPHILS % (AUTO) 46.5 % (42-78); TOTAL CELLS COUNTED % (AUTO) 100 %; WHITE BLOOD COUNT 11.3 10^3/uL (4.0-10.5)
[2019-07-24 11:29] LABS: ALBUMIN 4.1 g/dL (3.5-5.0); ALKALINE PHOSPHATASE 92 U/L (38-126); ANION GAP 13 (5-19); ASPARTATE AMINO TRANSFERASE 37 U/L (14-36); BILIRUBIN,DIRECT 0.2 mg/dL (0.0-0.4); BILIRUBIN,TOTAL 0.4 mg/dL (0.2-1.3); BLOOD UREA NITROGEN 87 mg/dL (7-20); CALCIUM 11.4 mg/dL (8.4-10.2); CARBON DIOXIDE 21 mmol/L (22-30); CHLORIDE 108 mmol/L (98-107); GLUCOSE 123 mg/dL (75-110); POTASSIUM 4.7 mmol/L (3.6-5.0); TOTAL PROTEIN 9.2 g/dL (6.3-8.2)
--- NOTE | 2019-07-24 12:07 | RADIOLOGY REPORT (SQ) ---
EXAM DESCRIPTION: CHEST SINGLE VIEW COMPLETED DATE/TIME: 07/24/2019 11:53 am REASON FOR STUDY: cp COMPARISON: AP view of the chest from 06/15/2019 EXAM PARAMETERS: NUMBER OF VIEWS: One view. TECHNIQUE: Single frontal radiographic view of the chest acquired. RADIATION DOSE: NA LIMITATIONS: None. FINDINGS: LUNGS AND PLEURA: Trace left pleural effusion and left basilar atelectasis. MEDIASTINUM AND HILAR STRUCTURES: Stable mediastinal and hilar contours. HEART AND VASCULAR STRUCTURES: The cardiac silhouette and pulmonary vasculature are within normal faith its given the low inspiratory lung volumes. BONES: No acute findings. HARDWARE: Tracheostomy tube. OTHER: No other finding. IMPRESSION: Trace left pleural effusion and left basilar atelectasis, similar to 06/15/2019. TECHNICAL DOCUMENTATION: JOB ID: [id number] [employer]- All Rights Reserved Reading location - IP/workstation name: [email or web address]
--- NOTE | 2019-07-24 13:26 | ER Document Report ---
ED Cardiac - General Chief Complaint: Chest Pain Stated Complaint: CHEST PAIN Time Seen by Provider: 07/24/19 09:48 Primary Care Provider: BAKARI BECKER MD [Primary Care Provider] - Follow up as needed Mode of Arrival: Medic Information source: Relative TRAVEL OUTSIDE OF THE [place] IN LAST 30 DAYS: No - HPI Notes: This patient is an 83-year-old demented patient brought from home by medics. Today at home patient told daughter and home health nurse that she was having chest pain and needed to go to the hospital. Currently patient is denying chest pain. Patient is a poor historian and is unable to contribute many significant details to the history. It is unknown where patient's chest pain was. Is unknown how long it lasted. It is unknown if there is any radiation. The intensity of it is also unknown. Patient cannot characterize the pain. There is no apparent trouble breathing. No new cough or fevers. The daughter also felt that the patient was making unusual grimaces and faces compared to normal. No recent vomiting. - Related Data Allergies/Adverse Reactions: alprazolam [From Xanax] Allergy (Verified 03/07/18 09:34) iodine [Iodine] Allergy (Verified 03/07/18 09:34) quetiapine fumarate [From Seroquel] Allergy (Verified 03/07/18 09:34) sertraline [From Zoloft] Allergy (Verified 01/24/19 20:16) metronidazole [From Flagyl] Adverse Reaction (Verified 01/24/19 20:16) Past Medical History - General Information source: Relative - Social History Smoking Status: Never Smoker Chew tobacco use (# tins/day): No Frequency of alcohol use: None Drug Abuse: None Family History: Reviewed & Not Pertinent Patient has suicidal ideation: No Patient has homicidal ideation: No - Past Medical History Cardiac Medical History: Reports: Hx Congestive Heart Failure, Hx DVT, Hx Hypercholesterolemia, Hx Hypertension, Hx Peripheral Vascular Disease, Hx Pulmonary Embolism Pulmonary Medical History: Reports: Hx COPD, Hx Pneumonia - aspiration Endocrine Medical History: Reports: Hx Diabetes Mellitus Type 1, Hx Diabetes Mellitus Type 2 Renal/ Medical History: Denies: Hx Peritoneal Dialysis Psychiatric Medical History: Reports: Hx Dementia Denies: Hx Depression Infectious Medical History: Reports: Hx C-Diff, Hx MRSA, Hx VRE Past Surgical History: Reports: Hx Abdominal Surgery - GI tube, Hx Bowel Surgery, Hx Cardiac Surgery - stents, Hx Orthopedic Surgery - Shoulder. 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 - Immunizations Hx Diphtheria, Pertussis, Tetanus Vaccination: Yes Review of Systems - Review of Systems -: Yes ROS unobtainable due to patient's medical condition - Cannot obtain review of symptoms due to patient's dementia Physical Exam - Vital signs Vitals: Resp 13 07/24/19 09:44 Interpretation: Normal - General General appearance: Alert In distress: None - HEENT Head: Normocephalic, Atraumatic Eyes: Normal Conjunctiva: Normal Mucous membranes: Normal - Respiratory Respiratory status: No respiratory distress Chest status: Nontender Breath sounds: Normal Chest palpation: Normal Notes: Has trach. - Cardiovascular Rhythm: Regular Heart sounds: Normal auscultation Murmur: No - Abdominal Inspection: Normal Distension: No distension Bowel sounds: Normal Tenderness: Nontender Organomegaly: No organomegaly - Back Back: Normal, Nontender - Extremities General upper extremity: Normal inspection, Nontender, Normal color, Normal temperature General lower extremity: Normal inspection, Nontender, Normal color, Normal temperature - Neurological Cognition: Confused Orientation: Disoriented to place, Disoriented to time Martin Coma Scale Eye Opening: Spontaneous Martin Coma Scale Verbal: Confused Martin Coma Scale Motor: Obeys Commands Martin Coma Scale Total: 14 Sensory: Normal - Psychological Associated symptoms: Confused, Flat affect - Skin Skin Temperature: Warm Skin Moisture: Dry Skin Color: Normal Course - Re-evaluation Re-evalutation: 07/24/19 13:25 Patient is brought in for chest pain. Upon arrival here patient denies any chest pain. EKG shows no ischemic changes. Patient has no elevation of her cardiac enzymes. Her chemistry panel is otherwise unchanged from baseline. Her CBC shows a mildly elevated white blood cell count. However her white blood cell count is consistently elevated on pretty much every 1 of her previous CBCs. Her CBC C today actually shows a lower white blood cell count that she usually has. She also has no fevers. Because of her chronic indwelling catheter a urinary tract infection could only be adequately diagnosed if she has elevated white blood cell count or fever. She has no fever and otherwise unremarkable vi channing signs. I do not believe the minimal elevation of her white blood cell count, since it is less than her usual, is significant for a urinary tract infection. I did educate the family however about the difficulty of telling when she has a urinary tract infection because of the multiple difficult circumstances. So I informed the family that she has further problems with altered mental status, fevers, vomiting or any other significant concerning symptoms they should return for evaluation. - Vital Signs Vital signs: Temp Pulse Resp BP Pulse Ox 98.3 F 17 163/72 H 100 07/24/19 11:01 07/24/19 11:01 07/24/19 11:01 07/24/19 09:48 - Laboratory Result Diagrams: 07/24/19 11:00 07/24/19 11:00 Laboratory results interpreted by me: 07/24/19 07/24/19 11:00 11:00 WBC 11.3 H RBC 3.59 L Hgb 10.1 L Hct 31.3 L RDW 18.2 H Eos % (Auto) 8.9 H Absolute Eos (auto) 1.0 H Chloride 108 H Carbon Dioxide 21 L BUN 87 H Creatinine 1.46 H Est GFR ( Amer) 41 L Est GFR (MDRD) Non-Af 34 L Glucose 123 H Calcium 11.4 H AST 37 H Total Protein 9.2 H - Diagnostic Test Radiology reviewed: Image reviewed, Reports reviewed - EKG Interpretation by Me EKG shows normal: Sinus rhythm Rate: Normal - [address] [place]/QRS: IVCD Heart block present: 1st Degree Discharge - Discharge Clinical Impression: Chest pain Qualifiers: Chest pain type: unspecified Qualified Code(s): R07.9 - Chest pain, unspecified Condition: Stable Disposition: HOME, SELF-CARE Instructions: Chest Pain of Unclear Cause ([facility]) Additional Instructions: Please call Dr. Becker as soon as possible to arrange follow-up Referrals: BAKARI BECKER MD [Primary Care Provider] - Follow up as needed
--- NOTE | 2019-07-24 13:59 | EKG REPORT ---
SEVERITY:- ABNORMAL ECG - SINUS OR ECTOPIC ATRIAL RHYTHM FIRST DEGREE AV BLOCK NONSPECIFIC IVCD WITH LAD LVH WITH SECONDARY REPOLARIZATION ABNORMALITY ANTERIOR Q WAVES, POSSIBLY DUE TO LVH : Confirmed by: Ethan Azar MD 24-Jul-2019 13:58:37
[2019-07-24 16:34] VITALS: BP 168/81
== END 2019-07-24 16:30 | disposition home or self-care (01) ==
LOC: ER 09:29
DX: R07.9 Chest pain, unspecified (principal); I50.9 Heart failure, unspecified; E78.00 Pure hypercholesterolemia, unspecified; I11.0 Hypertensive heart disease with heart failure; F03.90 Unspecified dementia, unspecified severity, without behavioral disturbance, psychotic disturbance, mood disturbance, and anxiety; Z86.14 Personal history of Methicillin resistant Staphylococcus aureus infection; Z86.718 Personal history of other venous thrombosis and embolism; Z89.511 Acquired absence of right leg below knee; Z93.0 Tracheostomy status; Z96.641 Presence of right artificial hip joint
CPT/HCPCS: 36415; 71045; 80053; 82962; 84484; 85025; 93005; 93010; 99285

== ENCOUNTER 2019-08-14 15:27 | Day surgery (SDC) | payer MEDICARE, MEDICAID ==
--- NOTE | 2019-08-14 17:30 | Operative Report ---
Operative Report DATE OF SURGERY: 08/14/19 Operative Report: Pre-op diagnosis: Feeding difficulty Post-op diagnosis: Feeding difficulty Surgery: G-tube replacement Medications: None Tissue removed: None Procedure: The old 16 [place] gastrostomy tube was removed after the balloon was deflated. This was replaced with a 18 [place] tube. . There was good flow of gastric contents after the tube was replaced. She tolerated the procedure well Plan: Resume feeding. Will attempt to replace with a 20 [place] tube at the next replacement OPERATION: .
== END 2019-08-14 16:57 | disposition home or self-care (01) ==
LOC: END 15:27
PROVIDERS: ATTEND Internal Medicine Gastroenterology
DX: R63.3 Feeding difficulties (principal); Z93.1 Gastrostomy status; E78.5 Hyperlipidemia, unspecified; I11.9 Hypertensive heart disease without heart failure; F03.90 Unspecified dementia, unspecified severity, without behavioral disturbance, psychotic disturbance, mood disturbance, and anxiety; I73.9 Peripheral vascular disease, unspecified; I48.91 Unspecified atrial fibrillation; Z79.899 Other long term (current) drug therapy; Z79.4 Long term (current) use of insulin; Z79.82 Long term (current) use of aspirin; Z79.51 Long term (current) use of inhaled steroids; J44.9 Chronic obstructive pulmonary disease, unspecified; J96.10 Chronic respiratory failure, unspecified whether with hypoxia or hypercapnia; Z88.8 Allergy status to other drugs, medicaments and biological substances
CPT/HCPCS: 43762

== ENCOUNTER 2020-03-09 18:37 | Inpatient (IN) | payer MEDICARE, MEDICAID ==
[2020-03-09 20:22] LABS: PROTHROMBIN TIME 16.3 SEC (11.4-15.4)
[2020-03-09 20:30] LABS: ALBUMIN 3.5 g/dL (3.5-5.0); ALKALINE PHOSPHATASE 79 U/L (38-126); ANION GAP 16 (5-19); ASPARTATE AMINO TRANSFERASE 60 U/L (14-36); BILIRUBIN,TOTAL 0.2 mg/dL (0.2-1.3); CALCIUM 10.4 mg/dL (8.4-10.2); CARBON DIOXIDE 14 mmol/L (22-30); CHLORIDE 104 mmol/L (98-107); GLUCOSE 336 mg/dL (75-110)
[2020-03-09 20:39] LABS: BLOOD UREA NITROGEN 143 mg/dL (7-20)
[2020-03-09] MEDS: NORMAL SALINE 1000 ML 1,000 ML IV PRN ×2 (21:00→22:40)
--- NOTE | 2020-03-09 21:00 | RADIOLOGY REPORT (SQ) ---
EXAM DESCRIPTION: X-ray, AP portable view the chest CLINICAL HISTORY: 84 years Female, bed 10 sepsis protocol COMPARISON: Portable view the chest July 24, 2019 FINDINGS: Lungs: Lung volumes are low and there is mild perihilar and infrahilar volume loss left greater than right. Blunting of the left costophrenic angles noted. Overall the appearance is similar to the previous exam. No pneumothorax. Mediastinum: Cardiac and mediastinal silhouette are unchanged. There is vascular calcifications in the aorta. Tracheostomy tube remains in place. Bones: Osseous structures are normal. IMPRESSION: Low lung volumes with nonspecific perihilar and infrahilar volume loss with trace left pleural effusion. Overall the appearance is stable.
[2020-03-09 21:30] LABS: MEAN CORPUSCULAR VOLUME 87 fl (80-97)
[2020-03-09] MEDS ORDERED: NORMAL SALINE 1000 ML 1,000 ML IV ONE (21:31)
[2020-03-09 21:33] LABS: MEAN CORPUSCULAR HEMOGLOBIN 26.6 pg (27.0-33.4); MEAN CORPUSCULAR HGB CONC 30.5 g/dL (32.0-36.0); RED BLOOD COUNT 1.44 10^6/uL (3.72-5.28); WHITE BLOOD COUNT 17.8 10^3/uL (4.0-10.5)
[2020-03-09 21:34] LABS: PLATELET COUNT 376 10^3/uL (150-450)
[2020-03-09 21:37] LABS: HEMATOCRIT 12.6 % (36.0-47.0); HEMOGLOBIN 3.8 g/dL (12.0-15.5)
--- NOTE | 2020-03-09 21:37 | ER Document Report ---
ED General - General Chief Complaint: Altered Mental Status Stated Complaint: ALTERED MENTAL STATUS Time Seen by Provider: 03/09/20 20:57 Primary Care Provider: BAKARI BECKER MD [Primary Care Provider] - Follow up as needed TRAVEL OUTSIDE OF THE [place] IN LAST 30 DAYS: No - HPI Notes: Patient is an 84-year-old bedbound, demented, trach/vent dependent patient, brought to the emergency department for evaluation by son. Evidently she has had elevated blood sugars and elevated heart rates over the last several days. She seemed to be pointing to her stomach, indicating perhaps pain or nausea per the son. He is the only historian that I have at this time. Patient is no ncommunicative other than refusing to allow me to do much of an exam. He relates she had a large bowel movement the other day. Her urine output seems to be down over the last 24 hours. He notes no other abnormalities in her behavior otherwise. - Related Data Allergies/Adverse Reactions: alprazolam [From Xanax] Allergy (Verified 03/07/18 09:34) iodine [Iodine] Allergy (Verified 03/07/18 09:34) quetiapine fumarate [From Seroquel] Allergy (Verified 03/07/18 09:34) sertraline [From Zoloft] Allergy (Verified 01/24/19 20:16) metronidazole [From Flagyl] Adverse Reaction (Verified 01/24/19 20:16) Past Medical History - General Information source: Relative - Social History Smoking Status: Unknown if Ever Smoked Family History: Reviewed & Not Pertinent - Past Medical History Cardiac Medical History: Reports: Hx Congestive Heart Failure, Hx DVT, Hx Hypercholesterolemia, Hx Hypertension, Hx Peripheral Vascular Disease, Hx Pulmonary Embolism Pulmonary Medical History: Reports: Hx COPD, Hx Pneumonia - aspiration Endocrine Medical History: Reports: Hx Diabetes Mellitus Type 1, Hx Diabetes Mellitus Type 2 Renal/ Medical History: Denies: Hx Peritoneal Dialysis Psychiatric Medical History: Reports: Hx Dementia Denies: Hx Depression Infectious Medical History: Reports: Hx C-Diff, Hx MRSA, Hx VRE Past Surgical History: Reports: Hx Abdominal Surgery - GI tube, Hx Bowel Surgery, Hx Cardiac Surgery - stents, Hx Orthopedic Surgery - Shoulder. 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 - Immunizations Hx Diphtheria, Pertussis, Tetanus Vaccination: Yes Review of Systems - Review of Systems -: Yes ROS unobtainable due to patient's medical condition - Review of systems from son, see HPI. No direct info from pt Physical Exam - Vital signs Vitals: Temp 97.8 F 03/09/20 18:37 - Notes Notes: This is an ill-appearing 84-year-old female who appears her stated age. She is bedbound. She is vented, trach collar in place. Extremely pale. Both her eyes are closed. She actively resists me trying to open her eyes for pupillary evaluation. She does have some discharge noted at the eyelashes on the right which son says is chronic. Head is normocephalic and appears atraumatic. Oral mucosa is slightly dry. Heart is regular rate and rhythm, lung sounds are difficult to auscultate secondary to body habitus but no clear wheezes, rales, rhonchi noted. Abdomen is obese, nontender, normoactive bowel sounds. Patient with a right AKA, stump inspected and found to have no skin breakdown. No cyanosis, clubbing, edema noted to the left lower extremity. Peripheral pulses are diminished but palpable. Patient will only intermittently follow commands. She only groans intermittently as well. Course - Re-evaluation Re-evalutation: 03/09/20 21:36 Patient presents to the emergency department for evaluation. She had laboratory investigations, including a sepsis protocol, based on EMS information in route. I was contacted to go into the room and the patient's troponin was found to be positive. I am unsure as to whether or not this patient is having active chest pain. I will give her aspirin per her feeding tube. I will place an inch of Nitropaste on her chest wall. Awaiting further work-up, we will continue to monitor. 03/09/20 21:38 Prior to ordering aspirin for her positive troponin, I was notified by nursing that her hemoglobin is 3.8. Will order a type and cross for 3 units. Will order heme test of stool. Will administer Protonix. 03/09/20 22:[address] Becker, who believes that the patient would be more appropri ately cared for in the unit. I spoke with Adarsh Cruz, [employer] gis web developer, who will evaluate the patient. 03/10/20 00:30 On initial consultation, I believe that the patient was going to be admitted to the intensive care unit. I have been notified that in fact they were waiting for post transfusional numbers to decide whether or not a unit bed or IMC bed would be more appropriate. Patient has a small peripheral IV, blood is infusing very slowly. She is currently stable, patient's son is requesting a breathing treatment. DuoNeb ordered. 03/10/20 00:50 I received a phone call from Adarsh Cruz, notifying me that the patient was accepted to IM by Dr. Becker. - Vital Signs Vital signs: Temp Pulse Resp BP Pulse Ox 98.3 F 99 17 123/71 100 03/10/20 00:39 03/10/20 00:39 03/10/20 00:39 03/10/20 00:39 03/10/20 00:39 - Laboratory Result Diagrams: 03/09/20 20:15 03/09/20 19:50 Laboratory results interpreted by me: 03/09/20 03/09/20 03/09/20 19:13 19:50 19:50 WBC RBC Hgb Hct MCH MCHC RDW Band Neutrophils % Abs Neuts (Manual) Abs Lymphs (Manual) PT 16.3 H VBG pCO2 VBG HCO3 Sodium Carbon Dioxide BUN Creatinine Est GFR ( Amer) Est GFR (MDRD) Non-Af Glucose POC Glucose 395 H Lactic Acid 3.2 H Calcium AST ALT Urine Protein Urine Glucose (UA) Ur Leukocyte Esterase Urine Ascorbic Acid Crossmatch 03/09/20 03/09/20 03/09/20 19:50 20:15 20:15 WBC 17.8 H RBC 1.44 L Hgb 3.8 L* Hct 12.6 L* MCH 26.6 L MCHC 30.5 L RDW 20.0 H Band Neutrophils % 2 L Abs Neuts (Manual) 11.7 H Abs Lymphs (Manual) 4.8 H PT VBG pCO2 31.8 L VBG HCO3 16.6 L Sodium 133.9 L Carbon Dioxide 14 L BUN 143 H Creatinine 1.93 H Est GFR ( Amer) 30 L Est GFR (MDRD) Non-Af 25 L Glucose 336 H POC Glucose Lactic Acid Calcium 10.4 H AST 60 H ALT 37 H Urine Protein Urine Glucose (UA) Ur Leukocyte Esterase Urine Ascorbic Acid Crossmatch 03/09/20 03/09/20 21:18 21:58 WBC RBC Hgb Hct MCH MCHC RDW Band Neutrophils % Abs Neuts (Manual) Abs Lymphs (Manual) PT VBG pCO2 VBG HCO3 Sodium Carbon Dioxide BUN Creatinine Est GFR ( Amer) Est GFR (MDRD) Non-Af Glucose POC Glucose Lactic Acid Calcium AST ALT Urine Protein 100 H Urine Glucose (UA) >=500 H Ur Leukocyte Esterase LARGE H Urine Ascorbic Acid 40 H Crossmatch See Detail - Diagnostic Test Radiology reviewed: Reports reviewed Radiology results interpreted by me: 03/09/20 22:40 Chest X-Ray 03/09/20 18:46 IMPRESSION: Low lung volumes with nonspecific perihilar and infrahilar volume loss with trace left pleural effusion. Overall the appearance is stable. - EKG Interpretation by Me Additional EKG results interpreted by me: 03/09/20 22:40 Sinus mechanism with a rate of 85 bpm. First-degree AV block. Left axis deviation. LVH with strain, ST and T wave changes in the lateral leads concerning for ischemia. This is a change from prior study. Discharge - Discharge Clinical Impression: Severe anemia, Sepsis, NSTEMI (non-ST elevation myocardial infarction) Condition: Stable Disposition: ADMITTED INPATIENT Admitting Provider: Fermin Unit Admitted: IMCU Referrals: BAKARI BECKER MD [Primary Care Provider] - Follow up as needed
[2020-03-09] MEDS ORDERED: NORMAL SALINE 250 ML IV PRN ×2 (21:39)
[2020-03-09 21:40] LABS: VENOUS BLOOD BASE EXCESS -8.3 mmol/L; VENOUS BLOOD HCO3 16.6 mmol/L (20-32); VENOUS BLOOD PCO2 31.8 mmHg (35-63); VENOUS BLOOD PH 7.34 (7.30-7.42)
[2020-03-09 22:00] LABS: APPEARANCE,URINE TURBID; BILIRUBIN,URINE NEGATIVE (NEGATIVE); COLOR,URINE YELLOW; GLUCOSE, URINE >=500 mg/dL (NEGATIVE); KETONES,URINE NEGATIVE (NEGATIVE); LEUKOCYTE ESTERASE,URINE LARGE (NEGATIVE); NITRITE,URINE NEGATIVE (NEGATIVE); PROTEIN,URINE 100 mg/dL (NEGATIVE); URINE SPECIFIC GRAVITY 1.012; UROBILINOGEN,URINE NEGATIVE mg/dL (<2.0)
[2020-03-09 22:00] LABS: ABSOLUTE LYMPHOCYTES# (MANUAL) 4.8 10^3/uL (0.5-4.7); ABSOLUTE MONOCYTES # (MANUAL) 1.2 10^3/uL (0.1-1.4); BAND NEUTROPHILS % (MANUAL) 2 % (3-5); BASOPHILS % (MANUAL) 0 % (0-2); EOSINOPHILS % (MANUAL) 0 % (0-6); LYMPHOCYTES % (MANUAL) 27 % (13-45); MONOCYTES % (MANUAL) 7 % (3-13); SEGMENTED NEUTROPHILS % (MAN) 64 % (42-78); TOTAL CELLS COUNTED 100
[2020-03-09 22:02] LABS: ANISOCYTOSIS 2+; HYPOCHROMASIA 1+; OVALOCYTES 1+; PLATELET COMMENT ADEQUATE; POLYCHROMASIA 1+; STOMATOCYTES 1+
[2020-03-09] MEDS ORDERED: CEFEPIME 2 GM/D5W RTU 2 GM/50 ML RTUPB IV ONE (22:20)
--- NOTE | 2020-03-09 22:45 | EKG REPORT ---
SEVERITY:- ABNORMAL ECG - SINUS OR ECTOPIC ATRIAL RHYTHM [Remains] FIRST DEGREE AV BLOCK [More Prom.] LVH WITH IVCD AND SECONDARY REPOL ABNRM [Remains] ST DEPRESSION, CONSIDER ISCHEMIA, INF LEADS [Insig. Chg.] SIGNIFICANT ECG CONTOUR CHANGES [Now Absent] ANTERIOR Q WAVES, POSSIBLY DUE TO LVH [Now Absent] NONSPECIFIC IVCD WITH LAD : Confirmed by: Ketty Mendoza MD 09-Mar-2020 22:44:47
[2020-03-10] MEDS ORDERED: IPRATROPIUM/ALBUTEROL 0.5-2.5 MG/3 ML AMPUL NEB ONE (00:29)
--- NOTE | 2020-03-10 01:08 | Progress Note ---
Provider Note Provider Note: I was asked to evaluate a patient in the ED for possible ICU admission. Judith Matt is an 84-year-old female, with multiple chronic comorbidities including chronic respiratory failure status post trach on mechanical ventilation at home, chronic indwelling [place] catheter with multiple UTIs, she has a G-tube which she receives tube feeds. She has a history of congestive heart failure, DVT, hyperlipidemia, hypertension, peripheral vascular disease, pulmonary embolism, COPD, pneumonia, diabetes, dementia, C. difficile, methicillin-resistant staph aureus, vancomycin resistant enterococci, history of gangrene status post right BKA 06/2016. She presented to the ED via EMS daughter at bedside states she is unable to get her blood glucose level below 400 for a week, as well as elevated heart rates for over the last several days. She does have a leukocytosis with a white count of 17,000 urine shows large leukocyte esterase 3+ bacteria 101 WBCs, she was started on cefepime 2g. Her hemoglobin is 3.8 she has baseline anemic with a baseline hemoglobin of 7.0-9. When I evaluated her she was hemodynamically stable with a heart rate of 89 blood pressure of 121/66 she was taken off mechanical ventilation placed on a trach collar her O2 saturations have remained 100. I performed a digital rectal exam which was negative. I believe that this low hemoglobin is chronic in nature as she is very hemodynamically stable. She will receive 3 units of packed red blood cells and admitted to the IMCU under the care of Dr. Christensen.
[2020-03-10] MEDS ORDERED: PIPERACILLIN SODIUM/TAZOBACTAM 4.5 GM in NORMAL SALINE 100 ML IV SCH (02:30)
[2020-03-10 03:07] LABS: ARTERIAL BLOOD BASE EXCESS -9.1 mmol/L; ARTERIAL BLOOD FIO2 40%; ARTERIAL BLOOD H2CO3 0.76 mmol/L (1.05-1.35); ARTERIAL BLOOD HCO3 15.1 mmol/L (20-24); ARTERIAL BLOOD O2 SATURATION 97.4 % (94-98); ARTERIAL BLOOD PCO2 25.1 mmHg (35-45); ARTERIAL BLOOD PO2 95.1 mmHg (80-100); ARTERIAL BLOOD TOTAL CO2 15.9 mmol/L (21-25)
[2020-03-10 03:10] LABS: IRON(TIBC) < 10.1 ug/dL (37-170)
[2020-03-10 03:59] LABS: ABSOLUTE RETICS # 0.165 10^6/uL (0.028-0.122); RETICULOCYTE COUNT (AUTO) 11.38 % (0.66-2.85)
[2020-03-10 04:00] LABS: PROTHROMBIN TIME 17.3 SEC (11.4-15.4)
[2020-03-10 04:07] LABS: FOLATE > 20.00 ng/mL (>2.76)
--- NOTE | 2020-03-10 05:27 | RADIOLOGY REPORT (SQ) ---
CT CHEST WITHOUT INTRAVENOUS CONTRAST: 03/10/2020 4:23 AM CDT HISTORY: 84-year old patient with pneumonia. COMPARISON: None available TECHNIQUE: Serial 3 mm axial images were obtained from above the thoracic inlet to the upper abdomen without intravenous contrast administered. Sagittal and coronal reconstructions were also obtained and reviewed. This exam was performed according to our departmental dose-optimization program, which includes automated exposure control, adjustment of the mA and/or KV according to the patient's size and/or use of iterative reconstruction technique. FINDINGS: Both lobes of the thyroid appear homogenous with no suspicious nodules identified. The thoracic aorta is normal in size. Atherosclerotic calcifications are seen at the thoracic aorta. The main pulmonary artery is enlarged and measures at least 3.1 cm in transverse dimension. The heart is enlarged. There is no evidence of a pericardial effusion. Coronary artery calcifications are present. Trace bilateral pleural effusions are present. These are most pronounced on the left side. A tracheostomy is seen. No pneumothorax is evident. There are bibasilar airspace opacities, right greater than left. The esophagus is patulous. The central tracheobronchial tree is patent. No suspicious lung nodules are identified. No significant supraclavicular, axillary, or mediastinal lymphadenopathy is identified. Evaluation of the upper abdomen is limited by the lack of intravenous contrast. There is suggestion of some mild periportal edema. Review of the bone show no evidence of any suspicious lytic or blastic lesions. Multilevel degenerative changes are seen at the thoracic spine. IMPRESSION: There are bilateral airspace opacities with bilateral effusions, left greater than right. These may reflect developing infection. The main pulmonary artery is enlarged, which can be seen with pulmonary artery hypertension.
[2020-03-10] MEDS: PIPERACILLIN SODIUM/TAZOBACTAM 4.5 GM in NORMAL SALINE 100 ML IV SCH ×3 (05:56→18:33)
[2020-03-10] MEDS ORDERED: PIPERACILLIN/TAZOBACTAM 4.5 GM VIAL IV ONE (06:23)
[2020-03-10] MEDS: INSULIN LISPRO 100 UNIT/ML 3 ML VIAL SUBCUT SCH ×3 (06:47→18:34)
[2020-03-10] MEDS ORDERED: DEXTROSE 40% GEL 15 GM TUBE X 2 PO PRN (07:00)
[2020-03-10] MEDS ORDERED: DEXTROSE 40% GEL 15 GM TUBE PO PRN (07:00)
[2020-03-10] MEDS ORDERED: DEXTROSE 50%-WATER SYRINGE 12.5 GM/25 ML DOSE IV PRN (07:00)
[2020-03-10] MEDS ORDERED: DEXTROSE 50%-WATER SYRINGE 25 GM/50 ML DOSE IV PRN (07:00)
[2020-03-10] MEDS ORDERED: GLUCAGON,HUMAN RECOMB 1 MG INJ IM PRN (07:00)
[2020-03-10 09:35] LABS: PATH REVIEW PATHOLOGIST REVIEWED
[2020-03-10 10:45] LABS: HEMATOCRIT 22.4 % (36.0-47.0); MEAN CORPUSCULAR HEMOGLOBIN 27.9 pg (27.0-33.4); MEAN CORPUSCULAR HGB CONC 32.8 g/dL (32.0-36.0); MEAN CORPUSCULAR VOLUME 85 fl (80-97); PLATELET COUNT 316 10^3/uL (150-450); RED BLOOD COUNT 2.64 10^6/uL (3.72-5.28); WHITE BLOOD COUNT 15.6 10^3/uL (4.0-10.5)
[2020-03-10 11:02] LABS: HEMOGLOBIN 7.3 g/dL (12.0-15.5)
[2020-03-10 11:04] LABS: ABSOLUTE LYMPHOCYTES# (MANUAL) 1.7 10^3/uL (0.5-4.7); ABSOLUTE MONOCYTES # (MANUAL) 1.4 10^3/uL (0.1-1.4); BASOPHILS % (MANUAL) 0 % (0-2); EOSINOPHILS % (MANUAL) 0 % (0-6); LYMPHOCYTES % (MANUAL) 11 % (13-45); METAMYELOCYTES % (MANUAL) 1 % (0-1); MONOCYTES % (MANUAL) 9 % (3-13); NUCLEATED RED BLOOD CELLS 2 /100 WBC (0); SEGMENTED NEUTROPHILS % (MAN) 79 % (42-78); TOTAL CELLS COUNTED 100
[2020-03-10 11:05] LABS: ANISOCYTOSIS 1+; BURR CELLS SLIGHT; PLATELET COMMENT ADEQUATE; POIKILOCYTOSIS SLIGHT; POLYCHROMASIA 2+
[2020-03-10] MEDS ORDERED: ONDANSETRON HCL 8 MG TABLET PO PRN (16:45)
[2020-03-10] MEDS: NYSTATIN TOPICAL POWDER 15 GM TP SCH (18:34)
--- NOTE | 2020-03-10 19:49 | PDOC H&P ---
History of Present Illness Admission Date/PCP: 03/10/20 01:09 BAKARI BECKER MD History of Present Illness: BRIANA BRADY is a 84 year old female She has multiple comorbid conditions, vent dependent, bedbound, G-tube feeder, status post right AKA, she was brought to the emergency room by family for evaluation of altered mental status, decreased sensorium, history taking is a challenge,In the emergency room she was evaluated the initial blood work that was done, hemoglobin was 3.8, there was no evidence of active bleed, family denied any passage of melanotic stool. The iro n indices indicated 0 serum iron, ferritin is low TIBC elevated, this suggests iron deficiency anemia probably from chronic blood loss. GI endoscopy is indicated, but this patient is chronically debilitated, I am not sure she is a good candidate for endoscopy, even if she has colon cancer, she would not be a good candidate for treatment, I will still consider surgical list to consider her for endoscopy.Hemogram demonstrated leukocytosis, WBC 17,000, serum creatinine 1.9, serum glucose 336. CT chest was done demonstrated bibasilar airspace opacities, right more than left, The arterial blood gas, PO2 95% on FiO2 of 40% Past Medical History Cardiac Medical History: Reports: Congestive Heart Failure, DVT, Hyperlipidema, Hypertension, Peripheral Vascular Disease, Pulmonary Embolism Pulmonary Medical History: Reports: Chronic Obstructive Pulmonary Disease (COPD), Pneumonia - aspiration Endocrine Medical History: Reports: Diabetes Mellitus Type 2 Psychiatric Medical History: Reports: Dementia Denies: Depression Infectious Medical History: Reports: Clostridium Difficile, Methicillin- Resistant Staph Aureus, Vancomycin-Resistant Enterococci Past Surgical History Past Surgical History: Reports: Orthopedic Surgery - Shoulder. 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 Social History Smoking Status: Unknown if Ever Smoked Frequency of Alcohol Use: None Hx Recreational Drug Use: No Drugs: None Hx Prescription Drug Abuse: No Family History Family History: Reviewed & Not Pertinent Parental Family History Reviewed: Yes Children Family History Reviewed: Yes Sibling(s) Family History Reviewed.: Yes Medication/Allergy Home Medications: Albuterol Sulfate [Ventolin 0.083% Neb 2.5 mg/3 mL Ampul] 2.5 mg NEB RTQ6HP PRN 06/15/19 Aspirin [Adult Low Dose Aspirin EC] 81 mg PO DAILY 06/15/19 Furosemide [Lasix 40 mg Tablet] 40 mg PO DAILY 06/15/19 Insulin Detemir [Levemir] 10 units SQ QAM 06/15/19 Memantine HCl [Namenda 10 mg Tablet] 10 mg PO DAILY 06/15/19 Amlodipine Besylate [Norvasc 10 mg Tablet] 10 mg PO DAILY 03/10/20 Ascorbic Acid [Vitamin C] 500 mg PO DAILY 03/10/20 Insulin Aspart [Novolog Flexpen] 5 units SQ TID 03/10/20 L.acidoph,Paracasei, B.lactis [Probiotic] 1 each PO DAILY 03/10/20 Nystatin [Mycostatin Topical Powder 15 gm] 1 applic TP BID 03/10/20 Ondansetron HCl [Zofran 8 mg Tablet] 8 mg PO TIDP PRN 03/10/20 Silver Sulfadiazine [Silvadene 1% Cream 50 gm] 1 applic TP DAILY 03/10/20 Allergies/Adverse Reactions: alprazolam [From Xanax] Allergy (Verified 03/07/18 09:34) iodine [Iodine] Allergy (Verified 03/07/18 09:34) quetiapine fumarate [From Seroquel] Allergy (Verified 03/07/18 09:34) sertraline [From Zoloft] Allergy (Verified 01/24/19 20:16) metronidazole [From Flagyl] Adverse Reaction (Verified 01/24/19 20:16) Review of Systems ROS unobtainable: Due to mental status Physical Exam Vital Signs: Temp Pulse Resp BP Pulse Ox 99.1 F 103 H 26 H 140/90 H 98 03/10/20 15:59 03/10/20 15:59 03/10/20 15:59 03/10/20 15:59 03/10/20 16:00 Intake & Output 03/09/20 03/10/20 03/11/20 06:59 06:59 06:59 Intake Total 2350 1500 Output Total 750 925 Balance 1600 575 Weight 71.1 kg 71.1 kg General appearance: PRESENT: other - Elderly female chronically debilitated Head exam: PRESENT: atraumatic, normocephalic Eye exam: PRESENT: conjunctiva pale Mouth exam: PRESENT: dry mucosa Neck exam: PRESENT: full ROM, tracheostomy Respiratory exam: PRESENT: rhonchi Cardiovascular exam: PRESENT: RRR, +S1, +S2 Vascular exam: PRESENT: normal capillary refill GI/Abdominal exam: PRESENT: normal bowel sounds, soft - PEG tube Rectal exam: PRESENT: deferred Extremities exam: PRESENT: right AKA Neurological exam: PRESENT: oriented to time Skin exam: PRESENT: other - Skin cancer Results Laboratory Results: 03/10/20 10:35 03/09/20 19:50 03/09/20 03/09/20 03/09/20 19:50 19:50 19:50 WBC Cancelled RBC Cancelled Hgb Cancelled Hct Cancelled MCV Cancelled MCH Cancelled MCHC Cancelled RDW Cancelled Plt Count Cancelled Seg Neutrophils % Cancelled Retic Count (auto) Carbonic Acid HCO3/H2CO3 Ratio ABG pH ABG pCO2 ABG pO2 ABG HCO3 ABG O2 Saturation ABG Base Excess VBG pH VBG pCO2 VBG HCO3 VBG Base Excess FiO2 Sodium 133.9 L Potassium 5.0 Chloride 104 Carbon Dioxide 14 L Anion Gap 16 BUN 143 H Creatinine 1.93 H Est GFR ( Amer) 30 L Glucose 336 H Lactic Acid 3.2 H Calcium 10.4 H Iron TIBC Transferrin Ferritin Total Bilirubin 0.2 AST 60 H Alkaline Phosphatase 79 Total Protein 7.0 Albumin 3.5 Vitamin B12 Folate Urine Color Urine Appearance Urine pH Ur Specific [place] Urine Protein Urine Glucose (UA) Urine Ketones Urine Blood Urine Nitrite Ur Leukocyte Esterase Urine WBC (Auto) Urine RBC (Auto) Blood Type Antibody Screen 03/09/20 03/09/20 03/09/20 20:15 20:15 20:15 WBC 17.8 H RBC 1.44 L Hgb 3.8 L* Hct 12.6 L* MCV 87 MCH 26.6 L MCHC 30.5 L RDW 20.0 H Plt Count 376 Seg Neutrophils % Not Reportable Retic Count (auto) Carbonic Acid HCO3/H2CO3 Ratio ABG pH ABG pCO2 ABG pO2 ABG HCO3 ABG O2 Saturation ABG Base Excess VBG pH 7.34 VBG pCO2 31.8 L VBG HCO3 16.6 L VBG Base Excess -8.3 FiO2 Sodium Potassium Chloride Carbon Dioxide Anion Gap BUN Creatinine Est GFR ( Amer) Glucose Lactic Acid Calcium Iron < 10.1 L TIBC 392 Transferrin Ferritin 10.30 L Total Bilirubin AST Alkaline Phosphatase Total Protein Albumin Vitamin B12 925.0 Folate > 20.00 Urine Color Urine Appearance Urine pH Ur Specific [place] Urine Protein Urine Glucose (UA) Urine Ketones Urine Blood Urine Nitrite Ur Leukocyte Esterase Urine WBC (Auto) Urine RBC (Auto) Blood Type Antibody Screen 03/09/20 03/09/20 03/09/20 20:15 20:15 21:18 WBC RBC Hgb Hct MCV MCH MCHC RDW Plt Count Seg Neutrophils % Retic Count (auto) 11.38 H Carbonic Acid HCO3/H2CO3 Ratio ABG pH ABG pCO2 ABG pO2 ABG HCO3 ABG O2 Saturation ABG Base Excess VBG pH VBG pCO2 VBG HCO3 VBG Base Excess FiO2 Sodium Potassium Chloride Carbon Dioxide Anion Gap BUN Creatinine Est GFR ( Amer) Glucose Lactic Acid Calcium Iron TIBC Transferrin 295.07 Ferritin Total Bilirubin AST Alkaline Phosphatase Total Protein Albumin Vitamin B12 Folate Urine Color YELLOW Urine Appearance TURBID Urine pH 7.0 Ur Specific [place] 1.012 Urine Protein 100 H Urine Glucose (UA) >=500 H Urine Ketones NEGATIVE Urine Blood NEGATIVE Urine Nitrite NEGATIVE Ur Leukocyte Esterase LARGE H Urine WBC (Auto) 101 Urine RBC (Auto) 5 Blood Type Antibody Screen 03/09/20 03/09/20 03/10/20 21:58 21:58 02:45 WBC RBC Hgb Hct MCV MCH MCHC RDW Plt Count Seg Neutrophils % Retic Count (auto) Carbonic Acid 0.76 L HCO3/H2CO3 Ratio 19:1 ABG pH 7.40 ABG pCO2 25.1 L ABG pO2 95.1 ABG HCO3 15.1 L ABG O2 Saturation 97.4 ABG Base Excess -9.1 VBG pH VBG pCO2 VBG HCO3 VBG Base Excess FiO2 40% Sodium Potassium Chloride Carbon Dioxide Anion Gap BUN Creatinine Est GFR ( Amer) Glucose Lactic Acid 1.9 Calcium Iron TIBC Transferrin Ferritin Total Bilirubin AST Alkaline Phosphatase Total Protein Albumin Vitamin B12 Folate Urine Color Urine Appearance Urine pH Ur Specific [place] Urine Protein Urine Glucose (UA) Urine Ketones Urine Blood Urine Nitrite Ur Leukocyte Esterase Urine WBC (Auto) Urine RBC (Auto) Blood Type A POSITIVE Antibody Screen NEGATIVE 03/10/20 03/10/20 03/10/20 03:24 10:04 10:04 WBC Cancelled RBC Cancelled Hgb Cancelled Hct Cancelled MCV Cancelled MCH Cancelled MCHC Cancelled RDW Cancelled Plt Count Cancelled Seg Neutrophils % Cancelled Retic Count (auto) Carbonic Acid HCO3/H2CO3 Ratio ABG pH ABG pCO2 ABG pO2 ABG HCO3 ABG O2 Saturation ABG Base Excess VBG pH VBG pCO2 VBG HCO3 VBG Base Excess FiO2 Sodium Potassium Chloride Carbon Dioxide Anion Gap BUN Creatinine Est GFR ( Amer) Glucose Lactic Acid 1.1 1.8 Calcium Iron TIBC Transferrin Ferritin Total Bilirubin AST Alkaline Phosphatase Total Protein Albumin Vitamin B12 Folate Urine Color Urine Appearance Urine pH Ur Specific [place] Urine Protein Urine Glucose (UA) Urine Ketones Urine Blood Urine Nitrite Ur Leukocyte Esterase Urine WBC (Auto) Urine RBC (Auto) Blood Type Antibody Screen 03/10/20 03/10/20 03/10/20 10:35 13:15 16:20 WBC 15.6 H RBC 2.64 L Hgb 7.3 L D Hct 22.4 L MCV 85 MCH 27.9 MCHC 32.8 RDW 17.0 H Plt Count 316 Seg Neutrophils % Not Reportable Retic Count (auto) Carbonic Acid HCO3/H2CO3 Ratio ABG pH ABG pCO2 ABG pO2 ABG HCO3 ABG O2 Saturation ABG Base Excess VBG pH VBG pCO2 VBG HCO3 VBG Base Excess FiO2 Sodium Potassium Chloride Carbon Dioxide Anion Gap BUN Creatinine Est GFR ( Amer) Glucose Lactic Acid 1.6 1.5 Calcium Iron TIBC Transferrin Ferritin Total Bilirubin AST Alkaline Phosphatase Total Protein Albumin Vitamin B12 Folate Urine Color Urine Appearance Urine pH Ur Specific [place] Urine Protein Urine Glucose (UA) Urine Ketones Urine Blood Urine Nitrite Ur Leukocyte Esterase Urine WBC (Auto) Urine RBC (Auto) Blood Type Antibody Screen 03/09/20 19:50 Troponin I 1.020 Impressions: Chest X-Ray 03/09/20 18:46 IMPRESSION: Low lung volumes with nonspecific perihilar and infrahilar volume loss with trace left pleural effusion. Overall the appearance is stable. Chest CT 03/10/20 00:00 IMPRESSION: There are bilateral airspace opacities with bilateral effusions, left greater than right. These may reflect developing infection. The main pulmonary artery is enlarged, which can be seen with pulmonary artery hypertension. Assessment & Plan - Diagnosis (1) Acute and chronic respiratory failure, unspecified whether with hypoxia or hypercapnia Qualifiers: Respiratory failure complication: hypoxia Qualified Code(s): J96.21 - Acute and chronic respiratory failure with hypoxia Is this a current diagnosis for this admission?: Yes Plan: Patient with chronic respiratory failure vent dependent, she had a tracheostomy in place, initial vent setting tidal volume 6ml/ideal body weight, PEEP, pressure support, (2) Pneumonia Qualifiers: Pneumonia type: due to unspecified organism Laterality: bilateral Lung location: lower lobe of lung Qualified Code(s): J18.9 - Pneumonia, unspecified organism Is this a current diagnosis for this admission?: Yes Plan: Start antibiotic to cover community-acquired pneumonia (3) Iron deficiency anemia Qualifiers: Iron deficiency anemia type: chronic blood loss Qualified Code(s): D50.0 - Iron deficiency anemia secondary to blood loss (chronic) Is this a current diagnosis for this admission?: Yes Plan: She has severe anemia, iron deficiency type, this suggests chronic blood loss, patient will need GI endoscopy.Transfuse patient with packed red blood cells (4) Type 2 diabetes mellitus Qualifiers: Diabetes mellitus longterm insulin use: with long distance operator use Diabetes mellitus complication status: with neurologic complications Diabetes mellitus complication detail: with polyneuropathy Qualified Code(s): E11.42 - Type 2 diabetes mellitus with diabetic polyneuropathy Is this a current diagnosis for this admission?: Yes - Time Time Spent: Greater than 70 Minutes Medications reviewed and adjusted accordingly: Yes - Inpatient Certification Based on my medical assessment, after consideration of the patient's comor bidities, presenting symptoms, or acuity I expect that the services needed warrant INPATIENT care.: Yes I certify that my determination is in accordance with my understanding of Medicare's requirements for reasonable and necessary INPATIENT services [42 CFR 412.3e].: Yes
[2020-03-10] MEDS: ALBUTEROL SULFATE 0.083% NEB 2.5 MG/3 ML AMPUL NEB PRN (20:43)
--- NOTE | 2020-03-10 20:56 | PDOC CONSULTATION ---
Consultation Consult Date: 03/10/20 Attending physician:: BAKARI BECKER Provider Consulted: BRIEN RICHARD Consult reason:: Anemia History of Present Illness Admission Date/PCP: 03/10/20 01:09 BAKARI BECKER MD History of Present Illness: BRIAAN BRADY is a 84 year old female Is brought to the emergency department for failure to thrive. Patient is gi ed, bedridden, full code, respiratory failure patient with sepsis admitted to the medicine service for further evaluation. She was found to have a hemoglobin of 3.8. She was hemodynamically stable and admitted for supportive care. Dr. Becker felt the patient should be made a DNR, comfort care with no further intervention. Apparently the family feels otherwise. Patient is hospitalized now on IV antibiotics IV fluids, receiving blood transfusion. Surgery was consulted for possible endoscopy. There is no family member at bedside. Patient is essentially nonresponsive. Past Medical History Cardiac Medical History: Reports: Congestive Heart Failure, DVT, Hyperlipidema, Hypertension, Peripheral Vascular Disease, Pulmonary Embolism Pulmonary Medical History: Reports: Chronic Obstructive Pulmonary Disease (COPD), Pneumonia - aspiration Endocrine Medical History: Reports: Diabetes Mellitus Type 1, Diabetes Mellitus Type 2 Psychiatric Medical History: Reports: Dementia Denies: Depression Infectious Medical History: Reports: Clostridium Difficile, Methicillin- Resistant Staph Aureus, Vancomycin-Resistant Enterococci Past Surgical History Past Surgical History: Right [id number] amputation Past Surgical History: Reports: Orthopedic Surgery - Shoulder. 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 Social History Smoking Status: Unknown if Ever Smoked Frequency of Alcohol Use: None Hx Recreational Drug Use: No Drugs: None Hx Prescription Drug Abuse: No Family History Family History: None, Reviewed & Not Pertinent Parental Family History Reviewed: No Children Family History Reviewed: NA Sibling(s) Family History Reviewed.: NA Medication/Allergy Home Medications: Albuterol Sulfate [Ventolin 0.083% Neb 2.5 mg/3 mL Ampul] 2.5 mg NEB RTQ6HP PRN 06/15/19 Aspirin [Adult Low Dose Aspirin EC] 81 mg PO DAILY 06/15/19 Furosemide [Lasix 40 mg Tablet] 40 mg PO DAILY 06/15/19 Insulin Detemir [Levemir] 10 units SQ QAM 06/15/19 Memantine HCl [Namenda 10 mg Tablet] 10 mg PO DAILY 06/15/19 Amlodipine Besylate [Norvasc 10 mg Tablet] 10 mg PO DAILY 03/10/20 Ascorbic Acid [Vitamin C] 500 mg PO DAILY 03/10/20 Insulin Aspart [Novolog Flexpen] 5 units SQ TID 03/10/20 L.acidoph,Paracasei, B.lactis [Probiotic] 1 each PO DAILY 03/10/20 Nystatin [Mycostatin Topical Powder 15 gm] 1 applic TP BID 03/10/20 Ondansetron HCl [Zofran 8 mg Tablet] 8 mg PO TIDP PRN 03/10/20 Silver Sulfadiazine [Silvadene 1% Cream 50 gm] 1 applic TP DAILY 03/10/20 Allergies/Adverse Reactions: alprazolam [From Xanax] Allergy (Verified 03/07/18 09:34) iodine [Iodine] Allergy (Verified 03/07/18 09:34) quetiapine fumarate [From Seroquel] Allergy (Verified 03/07/18 09:34) sertraline [From Zoloft] Allergy (Verified 01/24/19 20:16) metronidazole [From Flagyl] Adverse Reaction (Verified 01/24/19 20:16) Review of Systems ROS unobtainable: Due to mental status, Other - Patient has a trach, eyes closed, Physical Exam Vital Signs: Temp Pulse Resp BP Pulse Ox 99.1 F 96 32 H 140/90 H 98 03/10/20 15:59 03/10/20 20:38 03/10/20 20:38 03/10/20 15:59 03/10/20 20:38 Intake & Output 03/09/20 03/10/20 03/11/20 06:59 06:59 06:59 Intake Total 2350 1500 Output Total 750 925 Balance 1600 575 Weight 71.1 kg 71.1 kg General appearance: PRESENT: other - Patient on the ventilator, eyes closed; tracheostomy in position. 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 Rectal exam: PRESENT: deferred Extremities exam: PRESENT: other - Right AKA, well-healed Neurological exam: PRESENT: other - Patient with trach in place. Some grimacing painful stimulation Psychiatric exam: PRESENT: other - Patientnot responsive to verbal stimulation Results Laboratory Results: 03/10/20 10:35 03/09/20 19:50 03/09/20 03/09/20 03/09/20 20:15 20:15 20:15 WBC 17.8 H RBC 1.44 L Hgb 3.8 L* Hct 12.6 L* MCV 87 MCH 26.6 L MCHC 30.5 L RDW 20.0 H Plt Count 376 Seg Neutrophils % Not Reportable Retic Count (auto) Carbonic Acid HCO3/H2CO3 Ratio ABG pH ABG pCO2 ABG pO2 ABG HCO3 ABG O2 Saturation ABG Base Excess VBG pH 7.34 VBG pCO2 31.8 L VBG HCO3 16.6 L VBG Base Excess -8.3 FiO2 Lactic Acid Iron < 10.1 L TIBC 392 Transferrin Ferritin 10.30 L Vitamin B12 925.0 Folate > 20.00 Urine Color Urine Appearance Urine pH Ur Specific [place] Urine Protein Urine Glucose (UA) Urine Ketones Urine Blood Urine Nitrite Ur Leukocyte Esterase Urine WBC (Auto) Urine RBC (Auto) Blood Type Antibody Screen 03/09/20 03/09/20 03/09/20 20:15 20:15 21:18 WBC RBC Hgb Hct MCV MCH MCHC RDW Plt Count Seg Neutrophils % Retic Count (auto) 11.38 H Carbonic Acid HCO3/H2CO3 Ratio ABG pH ABG pCO2 ABG pO2 ABG HCO3 ABG O2 Saturation ABG Base Excess VBG pH VBG pCO2 VBG HCO3 VBG Base Excess FiO2 Lactic Acid Iron TIBC Transferrin 295.07 Ferritin Vitamin B12 Folate Urine Color YELLOW Urine Appearance TURBID Urine pH 7.0 Ur Specific [place] 1.012 Urine Protein 100 H Urine Glucose (UA) >=500 H Urine Ketones NEGATIVE Urine Blood NEGATIVE Urine Nitrite NEGATIVE Ur Leukocyte Esterase LARGE H Urine WBC (Auto) 101 Urine RBC (Auto) 5 Blood Type Antibody Screen 03/09/20 03/09/20 03/10/20 21:58 21:58 02:45 WBC RBC Hgb Hct MCV MCH MCHC RDW Plt Count Seg Neutrophils % Retic Count (auto) Carbonic Acid 0.76 L HCO3/H2CO3 Ratio 19:1 ABG pH 7.40 ABG pCO2 25.1 L ABG pO2 95.1 ABG HCO3 15.1 L ABG O2 Saturation 97.4 ABG Base Excess -9.1 VBG pH VBG pCO2 VBG HCO3 VBG Base Excess FiO2 40% Lactic Acid 1.9 Iron TIBC Transferrin Ferritin Vitamin B12 Folate Urine Color Urine Appearance Urine pH Ur Specific [place] Urine Protein Urine Glucose (UA) Urine Ketones Urine Blood Urine Nitrite Ur Leukocyte Esterase Urine WBC (Auto) Urine RBC (Auto) Blood Type A POSITIVE Antibody Screen NEGATIVE 03/10/20 03/10/20 03/10/20 03:24 10:04 10:04 WBC Cancelled RBC Cancelled Hgb Cancelled Hct Cancelled MCV Cancelled MCH Cancelled MCHC Cancelled RDW Cancelled Plt Count Cancelled Seg Neutrophils % Cancelled Retic Count (auto) Carbonic Acid HCO3/H2CO3 Ratio ABG pH ABG pCO2 ABG pO2 ABG HCO3 ABG O2 Saturation ABG Base Excess VBG pH VBG pCO2 VBG HCO3 VBG Base Excess FiO2 Lactic Acid 1.1 1.8 Iron TIBC Transferrin Ferritin Vitamin B12 Folate Urine Color Urine Appearance Urine pH Ur Specific [place] Urine Protein Urine Glucose (UA) Urine Ketones Urine Blood Urine Nitrite Ur Leukocyte Esterase Urine WBC (Auto) Urine RBC (Auto) Blood Type Antibody Screen 03/10/20 03/10/20 03/10/20 10:35 13:15 16:20 WBC 15.6 H RBC 2.64 L Hgb 7.3 L D Hct 22.4 L MCV 85 MCH 27.9 MCHC 32.8 RDW 17.0 H Plt Count 316 Seg Neutrophils % Not Reportable Retic Count (auto) Carbonic Acid HCO3/H2CO3 Ratio ABG pH ABG pCO2 ABG pO2 ABG HCO3 ABG O2 Saturation ABG Base Excess VBG pH VBG pCO2 VBG HCO3 VBG Base Excess FiO2 Lactic Acid 1.6 1.5 Iron TIBC Transferrin Ferritin Vitamin B12 Folate Urine Color Urine Appearance Urine pH Ur Specific [place] Urine Protein Urine Glucose (UA) Urine Ketones Urine Blood Urine Nitrite Ur Leukocyte Esterase Urine WBC (Auto) Urine RBC (Auto) Blood Type Antibody Screen 03/09/20 19:50 Troponin I 1.020 Impressions: Chest X-Ray 03/09/20 18:46 IMPRESSION: Low lung volumes with nonspecific perihilar and infrahilar volume loss with trace left pleural effusion. Overall the appearance is stable. Chest CT 03/10/20 00:00 IMPRESSION: There are bilateral airspace opacities with bilateral effusions, left greater than right. These may reflect developing infection. The main pulmonary artery is enlarged, which can be seen with pulmonary artery hypertension. Assessment & Plan - Diagnosis (1) Iron deficiency anemia Qualifiers: Iron deficiency anemia type: chronic blood loss Qualified Code(s): D50.0 - Iron deficiency anemia secondary to blood loss (chronic) Is this a current diagnosis for this admission?: Yes Plan: Impression: Chronic blood loss anemia, possibly multifactorial including GI tract. Patient hemodynamically stable. She is bed ridden, demented, ventilatory dependent, unresponsive, a full code. Patient is not an appropriate candidate for further diagnostic evaluation. Patient should be made comfort care only, with a palliative clinical tract rather than a therapeutic intervention tract Recommendations: 1. I discussed the above with Dr. Becker. Given patient's multiple comorbidities, and essentially comatose state, I do not recommend further interventions including diagnostic endoscopy. 2. I suggest patient move towards palliative care. 3. We will sign off; reconsult surgery if clinically indicated. (2) Acute and chronic respiratory failure, unspecified whether with hypoxia or hypercapnia Qualifiers: Respiratory failure complication: hypoxia Qualified Code(s): J96.21 - Acute and chronic respiratory failure with hypoxia Is this a current diagnosis for this admission?: Yes - Time Time Spent: 30 to 50 Minutes Smoking Cessation Education: over 10 minutes
[2020-03-11] MEDS: PIPERACILLIN SODIUM/TAZOBACTAM 4.5 GM in NORMAL SALINE 100 ML IV SCH ×4 (00:40→17:17)
[2020-03-11] MEDS: INSULIN LISPRO 100 UNIT/ML 3 ML VIAL SUBCUT SCH ×3 (00:40→11:34)
[2020-03-11] MEDS: ALBUTEROL SULFATE 0.083% NEB 2.5 MG/3 ML AMPUL NEB PRN ×4 (02:35→23:53)
[2020-03-11 06:17] LABS: HEMATOCRIT 23.7 % (36.0-47.0); MEAN CORPUSCULAR HEMOGLOBIN 27.6 pg (27.0-33.4); MEAN CORPUSCULAR VOLUME 86 fl (80-97); PLATELET COUNT 331 10^3/uL (150-450); RED BLOOD COUNT 2.75 10^6/uL (3.72-5.28); WHITE BLOOD COUNT 17.9 10^3/uL (4.0-10.5)
[2020-03-11 06:27] LABS: HEMOGLOBIN 7.6 g/dL (12.0-15.5)
[2020-03-11 07:02] LABS: ALBUMIN 2.9 g/dL (3.5-5.0); ALKALINE PHOSPHATASE 93 U/L (38-126); ANION GAP 10 (5-19); ASPARTATE AMINO TRANSFERASE 32 U/L (14-36); BILIRUBIN,TOTAL 0.3 mg/dL (0.2-1.3); BLOOD UREA NITROGEN 96 mg/dL (7-20); CALCIUM 9.6 mg/dL (8.4-10.2); CARBON DIOXIDE 14 mmol/L (22-30); CHLORIDE 123 mmol/L (98-107); GLUCOSE 320 mg/dL (75-110); POTASSIUM 3.7 mmol/L (3.6-5.0); TOTAL PROTEIN 6.5 g/dL (6.3-8.2)
[2020-03-11 07:35] LABS: ABSOLUTE LYMPHOCYTES# (MANUAL) 0.7 10^3/uL (0.5-4.7); ABSOLUTE MONOCYTES # (MANUAL) 0.5 10^3/uL (0.1-1.4); BASOPHILS % (MANUAL) 0 % (0-2); EOSINOPHILS % (MANUAL) 1 % (0-6); LYMPHOCYTES % (MANUAL) 4 % (13-45); MONOCYTES % (MANUAL) 3 % (3-13); NUCLEATED RED BLOOD CELLS 4 /100 WBC (0); SEGMENTED NEUTROPHILS % (MAN) 92 % (42-78); TOTAL CELLS COUNTED 100
[2020-03-11 07:36] LABS: ANISOCYTOSIS 1+; TOXIC GRANULATION SLIGHT; TOXIC VACUOLATION PRESENT
[2020-03-11 07:37] LABS: PLATELET COMMENT ADEQUATE; POLYCHROMASIA SLIGHT
[2020-03-11] MEDS: ASCORBIC ACID 500 MG TABLET PO SCH (09:06)
[2020-03-11] MEDS: AMLODIPINE BESYLATE 10 MG TABLET PO SCH (09:06)
[2020-03-11] MEDS: FUROSEMIDE 40 MG TABLET PO SCH (09:06)
[2020-03-11] MEDS: MEMANTINE HCL 10 MG TABLET PO SCH (09:06)
[2020-03-11] MEDS: ASPIRIN 81 MG TABLET, ENT COATED PO SCH (09:06)
[2020-03-11] MEDS: NYSTATIN TOPICAL POWDER 15 GM TP SCH ×2 (09:06→17:17)
[2020-03-11] MEDS: LACTOBACILLUS ACIDOPHILUS 250 MG TAB PO SCH (09:06)
[2020-03-11] MEDS: SILVER SULFADIAZINE 1% CREAM 50 GM TP SCH (09:07)
[2020-03-11] MEDS ORDERED: (PENDING PHARMACY ID) (L.Acidoph,Paracasei, B.Lactis [Probiotic] 1 EACH) PO SCH (10:00)
[2020-03-11] MEDS ORDERED: (PENDING PHARMACY ID) (Ascorbic Acid [Vitamin C] 500 MG) PO SCH (10:00)
--- NOTE | 2020-03-11 20:40 | PDOC PROGRESS REPORT ---
Subjective Progress Note for:: 03/11/20 Subjective:: Patient with advanced dementia, bedbound, not communicating, she is not engaging in any form seen by the bedside. Blood culture growing Staphylococcus species most likely contamination coagulase-negative, patient still a full code, she is hospice appropriate, consult palliative care Reason For Visit: SEPSIS,SEVERE ANEMIA,MULTIPLE CO-MORBID CONDTIONS Physical Exam Vital Signs: Temp Pulse Resp BP Pulse Ox 99.4 F 94 30 H 143/98 H 99 03/11/20 15:47 03/11/20 16:37 03/11/20 16:37 03/11/20 15:47 03/11/20 16:37 Intake & Output 03/10/20 03/11/20 03/12/20 06:59 06:59 06:59 Intake Total 2350 2270 650 Output Total 750 1800 1200 Balance 1600 470 -550 Weight 71.1 kg 72.4 kg General appearance: PRESENT: no acute distress Respiratory exam: PRESENT: rhonchi Cardiovascular exam: PRESENT: +S1, +S2 GI/Abdominal exam: PRESENT: soft Neurological exam: PRESENT: alert Results Laboratory Results: 03/11/20 05:07 03/11/20 05:07 03/11/20 03/11/20 05:07 05:07 WBC 17.9 H RBC 2.75 L Hgb 7.6 L Hct 23.7 L MCV 86 MCH 27.6 MCHC 32.0 RDW 18.0 H Plt Count 331 Seg Neutrophils % Not Reportable Sodium 147.4 H Potassium 3.7 Chloride 123 H Carbon Dioxide 14 L Anion Gap 10 BUN 96 H Creatinine 1.52 H Est GFR ( Amer) 39 L Glucose 320 H Calcium 9.6 Total Bilirubin 0.3 AST 32 Alkaline Phosphatase 93 Total Protein 6.5 Albumin 2.9 L 03/09/20 21:58 Blood Blood Culture (PCR) - Final Staphylococcus Species 03/09/20 21:18 Catheterized Urine Urine Culture - Final Pseudomonas Aeruginosa Escherichia Coli 03/09/20 19:50 Troponin I 1.020 Impressions: Chest X-Ray 03/09/20 18:46 IMPRESSION: Low lung volumes with nonspecific perihilar and infrahilar volume loss with trace left pleural effusion. Overall the appearance is stable. Chest CT 03/10/20 00:00 IMPRESSION: There are bilateral airspace opacities with bilateral effusions, left greater than right. These may reflect developing infection. The main pulmonary artery is enlarged, which can be seen with pulmonary artery hypertension. Assessment & Plan - Diagnosis (1) Acute and chronic respiratory failure, unspecified whether with hypoxia or hypercapnia Qualifiers: Respiratory failure complication: hypoxia Qualified Code(s): J96.21 - Acute and chronic respiratory failure with hypoxia Is this a current diagnosis for this admission?: Yes Plan: Continue vent support (2) Pneumonia Qualifiers: Pneumonia type: due to unspecified organism Laterality: bilateral Lung location: lower lobe of lung Qualified Code(s): J18.9 - Pneumonia, unspecified organism Is this a current diagnosis for this admission?: Yes Plan: Continue present IV antibiotic (3) Iron deficiency anemia Qualifiers: Iron deficiency anemia type: chronic blood loss Qualified Code(s): D50.0 - Iron deficiency anemia secondary to blood loss (chronic) Is this a current diagnosis for this admission?: Yes (4) Type 2 diabetes mellitus Qualifiers: Diabetes mellitus salvage determiner insulin use: with salvage determiner use Diabetes mellitus complication status: with neurologic complications Diabetes mellitus complication detail: with polyneuropathy Qualified Code(s): E11.42 - Type 2 diabetes mellitus with diabetic polyneuropathy Is this a current diagnosis for this admission?: Yes - Time Time Spent with patient: 35 or more minutes Level of Care: IMCU
[2020-03-12] MEDS: PIPERACILLIN SODIUM/TAZOBACTAM 4.5 GM in NORMAL SALINE 100 ML IV SCH ×3 (00:20→13:03)
[2020-03-12] MEDS: INSULIN LISPRO 100 UNIT/ML 3 ML VIAL SUBCUT SCH ×4 (00:22→13:03)
[2020-03-12] MEDS ORDERED: INSULIN LISPRO 100 UNIT/ML 3 ML VIAL SUBCUT ONE (00:30)
[2020-03-12] MEDS ORDERED: INSULIN REG, HUMAN 100 UNIT/ML 3 ML VIAL (PYX) ONE (03:12)
[2020-03-12] MEDS ORDERED: INSULIN REG, HUMAN 100 UNIT/ML 3 ML VIAL IV ONE (03:15)
[2020-03-12] MEDS ORDERED: INSULIN GLARGINE,HUM.REC.ANLOG 1,000 UNIT/10 ML VIAL (PYX) SUBCUT ONE ×2 (06:39→10:30)
[2020-03-12] MEDS ORDERED: INSULIN GLARGINE,HUM.REC.ANLOG 1,000 UNIT/10 ML VIAL SUBCUT SCH ×2 (06:45→22:00)
[2020-03-12] MEDS: ALBUTEROL SULFATE 0.083% NEB 2.5 MG/3 ML AMPUL NEB PRN ×3 (07:53→19:50)
--- NOTE | 2020-03-12 09:48 | EKG REPORT ---
SEVERITY:- ABNORMAL ECG - SINUS TACHYCARDIA MULTIFORM VENTRICULAR PREMATURE COMPLEXES LEFT BUNDLE BRANCH BLOCK FIRST DEGREE AVB : Confirmed by: Ethan Azar MD 12-Mar-2020 09:47:51
[2020-03-12] MEDS ORDERED: ACETAMINOPHEN SOLN 325 MG/10.15 ML UDCUP PEG PRN (10:06)
[2020-03-12] MEDS: AMLODIPINE BESYLATE 10 MG TABLET PO SCH (10:25)
[2020-03-12] MEDS: ASCORBIC ACID 500 MG TABLET PO SCH (10:25)
[2020-03-12] MEDS: FUROSEMIDE 40 MG TABLET PO SCH (10:25)
[2020-03-12] MEDS: LACTOBACILLUS ACIDOPHILUS 250 MG TAB PO SCH (10:25)
[2020-03-12] MEDS: MEMANTINE HCL 10 MG TABLET PO SCH (10:25)
[2020-03-12] MEDS: ASPIRIN 81 MG TABLET, ENT COATED PO SCH (10:25)
[2020-03-12] MEDS: MEROPENEM 1 GM in NORMAL SALINE 50 ML IV SCH ×2 (14:35→22:35)
[2020-03-12] MEDS: SILVER SULFADIAZINE 1% CREAM 50 GM TP SCH (14:37)
[2020-03-12] MEDS: NYSTATIN TOPICAL POWDER 15 GM TP SCH ×2 (14:37→17:22)
[2020-03-12] MEDS ORDERED: RINGERS SOLUTION,LACTATED 1,000 ML IV ONE (14:39)
[2020-03-12] MEDS ORDERED: VANCOMYCIN HCL 0 MG in DEXTROSE 5%-WATER 250 ML IV NR (14:45)
[2020-03-12] MEDS: NORMAL SALINE 100 ML with INSULIN REGULAR, HUMAN 100 UNIT IV PRN ×2 (15:31)
[2020-03-12 15:35] LABS: ARTERIAL BLOOD BASE EXCESS -10.1 mmol/L; ARTERIAL BLOOD HCO3 14.2 mmol/L (20-24); ARTERIAL BLOOD O2 SATURATION 97.3 % (94-98); ARTERIAL BLOOD PCO2 26.6 mmHg (35-45); ARTERIAL BLOOD PH 7.35 (7.35-7.45); ARTERIAL BLOOD PO2 98.9 mmHg (80-100)
[2020-03-12 15:45] LABS: ALBUMIN 3.4 g/dL (3.5-5.0); ALKALINE PHOSPHATASE 127 U/L (38-126); ANION GAP 11 (5-19); ASPARTATE AMINO TRANSFERASE 154 U/L (14-36); BILIRUBIN,DIRECT 0.2 mg/dL (0.0-0.4); BILIRUBIN,TOTAL 0.4 mg/dL (0.2-1.3); BLOOD UREA NITROGEN 85 mg/dL (7-20); C-REACTIVE PROTEIN 46.8 mg/L (<10.0); CALCIUM 10.1 mg/dL (8.4-10.2); CARBON DIOXIDE 16 mmol/L (22-30); CHLORIDE 131 mmol/L (98-107); PHOSPHORUS 3.6 mg/dL (2.5-4.5); POTASSIUM 3.9 mmol/L (3.6-5.0); TOTAL PROTEIN 7.2 g/dL (6.3-8.2)
[2020-03-12 15:50] LABS: GLUCOSE 416 mg/dL (75-110)
[2020-03-12 15:52] LABS: ARTERIAL BLOOD FIO2 50%
[2020-03-12] MEDS: 1/2 NORMAL SALINE 1,000 ML IV PRN (16:54)
[2020-03-12 17:26] LABS: ACETAMINOPHEN < 10 ug/mL (10-30); SALICYLATE < 1.0 mg/dL (2.0-20.0)
[2020-03-12] MEDS ORDERED: INSULIN REG, HUMAN 100 UNIT/ML 3 ML VIAL (PYX) IV ONE (17:30)
--- NOTE | 2020-03-12 17:35 | CRITICAL CARE ADMISSION REPORT ---
HPI Date:: 03/12/20 Time:: 13:50 Reason for ICU Reason:: Coma, Sepsis Admission Date/Time & PCP: Admission Date/Time: 03/10/20 01:09 Primary Care Provider: BAKARI BECKER MD HPI: BRIANA BRADY is a 84 year old female with multiple medical comorbidities including chronic respiratory failure status post trach/PEG tube on mechanical ventilation at home, chronic indwelling Palacios catheter (changed one week ago) with multiple UTIs. She presented to the ED significant infection in which she was unable to recover. Via EMS for hyperglycemia and tachycardia. Initial urine studies show positive UTI with Pseudomonas. Her respiratory status has worsened and she has become unresponsive. She is tachycardic without hypotensive episodes. Critical care was asked to evaluate for transfer to ICU. Patient is unable to give any history given her chronic tracheostomy state. There is a history of dementia. Her son is at the bedside and I was able to obtain some history from him. He discloses the above as far as hypoglycemia. Her activities at home are occasional recognition of family will grab at bed when she is being turned. She does interact with family and occasionally will offer guttural words with the tracheostomy. When asked why she is on a ventilator chronically the son is unaware of the exact diagnosis but it is related to an overwhelming infection resulting in loss of leg. Evaluated the patient in IMCU. Found her to be comatose and unresponsive. Ventilator changed to support need for increased respiration. Noted hyperglycemia which is been ongoing since admission. And accompanying hypernatremia. Acute renal failure is also present. History obtained from:: EMR, Son. IMCU staff - Diagnosis/Plan (1) Coma scale, best verbal response, none, 24 hours or more after hospital admission Is this a current diagnosis for this admission?: Yes (2) Acute kidney injury (NILO) with acute tubular necrosis (ATN) Is this a current diagnosis for this admission?: Yes (3) Dehydration Is this a current diagnosis for this admission?: Yes (4) HHNC (hyperglycemic hyperosmolar nonketotic coma) Is this a current diagnosis for this admission?: Yes (6) Complicated UTI (urinary tract infection) Is this a current diagnosis for this admission?: Yes (7) Blood loss anemia Is this a current diagnosis for this admission?: Yes (8) Metabolic acidosis with normal anion gap and bicarbonate losses Is this a current diagnosis for this admission?: Yes (9) Multiple comorbid conditions Is this a current diagnosis for this admission?: Yes (10) Ventilator-acquired pneumonia Is this a current diagnosis for this admission?: Yes Plan: Present prior to admission (11) Chronic indwelling Palacios catheter Is this a current diagnosis for this admission?: Yes (12) Basal cell carcinoma of skin of face Qualifiers: Basal cell carcinoma face location: other part of face Qualified Code(s): C44.319 - Basal cell carcinoma of skin of other parts of face Is this a current diagnosis for this admission?: Yes (13) Basal cell carcinoma of skin of nose Is this a current diagnosis for this admission?: Yes Plan Summary: 03.12.2020: Respiratory: Patient's respiratory status has worsened and she requires escalation in ventilator therapy. Will follow ABG. Chest CT shows consolidation and have broaden antibiotics to include meropenem and vancomycin. Have asked for respiratory specimens. Will need transfer to the ICU for further care. Infectious: Patient has urinary tract infection with Pseudomonas. It appears to be significantly pansensitive however the possibility of an ESBL must be considered. To that end and given her CT scan findings I have transitioned her to meropenem and vancomycin. We will also need to consider parasitic infection such as aspergillosis. Awaiting Gram stain and culture. Patient's last Palacios change was 1 week ago and orders for removal of that Palacios and placement of a new one have been made. Patient has chronic indwelling Palacios secondary to neurogenic bladder. Cardiac: Patient has tachycardia and evidence of volume depletion. Will give IV fluids. This also may represent a component of sepsis without hypotension. Check lactic acid. She also has metabolic acidosis which can contribute to this as well. Hematologic: Patient had anemia on admission but was not rechecked to assure validity. She has received 2 units of blood with an increase in her hemoglobin to almost 8 (7.6). This raises the suspicion that the first hemoglobin hematocrit were surreptitious and possible lab error. We will continue to monitor for further anemia closely. Given the fact that she is volume depleted hemoglobin hematocrit may decrease in that she is possibly hemoconcentrated. Endocrine: Patient has hyperglycemic related hypernatremic hyperosmolar coma. Have given IV insulin orders and started insulin drip. She will need to be transferred to ICU for further care. Given her prolonged comorbid illnesses she is at risk for adrenal insufficiency as well and will need to monitor for hypotension. Check TSH and hemoglobin A1c. Renal: Patient has acute kidney injury presumably from dehydration and sepsis. Concern for ATN is significant. Will give IV fluids and follow response. Given the fact that she has been on Lasix the possibility of diuretic induced is also a distinct possibility. Patient also has complex UTI and have asked for the Palacios to be changed. Metabolic: She has a combined respiratory alkalosis and metabolic acidosis and have asked for salicylate and Tylenol levels. Surreptitious elevation of aceta minophen related to oxalic-Prolene acidosis and will need to rule this out. Patient has hyperosmolar coma with hypernatremia and have started half-normal saline. She did receive a bolus of LR prior to the labs. Alimentary: Patient's abdomen is not tender. Her PEG tube site is clean dry and intact. We will obtain a CT scan of the abdomen because of the elevation in liver enzymes. She did have gallstones on a previous CT and these may represent the initiation of cholangitis. The elevations are not significant or severe however she will be on antibiotics for coverage. Neurologic: Patient has HHN K and is comatose. Will check ammonia level and follow-up on her labs. Ventilator settings have been changed from SIMV to assist control mode to facilitate better respiration status with neurological dysfunction. Sedation: No active sedation. Patient is comatose Lines/Tubes: Peripheral IVs. Other: Lengthy discussion with son about goals and plan of care. He is in agreement for DNR but would like aggressive care. We will transfer patient to ICU. Patient also has basal cell cancers on her face with early erosion of the nose. These do not appear to be invasive fungal infection but will need to continue to monitor Past Medical History Cardiac Medical History: Reports: Congestive Heart Failure, DVT, Hyperlipidema, Hypertension, Peripheral Vascular Disease, Pulmonary Embolism Pulmonary Medical History: Reports: Chronic Obstructive Pulmonary Disease (COPD), Pneumonia - aspiration Endocrine Medical History: Reports: Diabetes Mellitus Type 1, Diabetes Mellitus Type 2 Psychiatric Medical History: Reports: Dementia Denies: Depression Infectious Medical History: Reports: Clostridium Difficile, Methicillin- Resistant Staph Aureus, Vancomycin-Resistant Enterococci Past Surgical History Past Surgical History: Reports: Orthopedic Surgery - Shoulder. 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 Social/Family History - Social History Lives with: Family Smoking Status: Unknown if Ever Smoked Frequency of Alcohol Use: None Hx Recreational Drug Use: No Drugs: None Hx Prescription Drug Abuse: No - Medication/Allergies Home Medications: Albuterol Sulfate [Ventolin 0.083% Neb 2.5 mg/3 mL Ampul] 2.5 mg NEB [id number] PRN 06/15/19 Aspirin [Adult Low Dose Aspirin EC] 81 mg PO DAILY 06/15/19 Furosemide [Lasix 40 mg Tablet] 40 mg PO DAILY 06/15/19 Insulin Detemir [Levemir] 10 units SQ QAM 06/15/19 Memantine HCl [Namenda 10 mg Tablet] 10 mg PO DAILY 06/15/19 Amlodipine Besylate [Norvasc 10 mg Tablet] 10 mg PO DAILY 03/10/20 Ascorbic Acid [Vitamin C] 500 mg PO DAILY 03/10/20 Insulin Aspart [Novolog Flexpen] 5 units SQ TID 03/10/20 L.acidoph,Paracasei, B.lactis [Probiotic] 1 each PO DAILY 03/10/20 Nystatin [Mycostatin Topical Powder 15 gm] 1 applic TP BID 03/10/20 Ondansetron HCl [Zofran 8 mg Tablet] 8 mg PO TIDP PRN 03/10/20 Silver Sulfadiazine [Silvadene 1% Cream 50 gm] 1 applic TP DAILY 03/10/20 Allergies/Adverse Reactions: alprazolam [From Xanax] Allergy (Verified 03/07/18 09:34) iodine [Iodine] Allergy (Verified 03/07/18 09:34) quetiapine fumarate [From Seroquel] Allergy (Verified 03/07/18 09:34) sertraline [From Zoloft] Allergy (Verified 01/24/19 20:16) metronidazole [From Flagyl] Adverse Reaction (Verified 01/24/19 20:16) Review of Systems ROS unobtainable: Due to endotracheal tube, Due to mental status Physical Exam Vital Signs: Temp Pulse Resp BP Pulse Ox 102.4 F H 129 H 32 H 139/74 H 97 03/12/20 12:27 03/12/20 14:08 03/12/20 14:08 03/12/20 12:27 03/12/20 14:08 Intake & Output 03/11/20 03/12/20 03/13/20 06:59 06:59 06:59 Intake Total 2270 1522 250 Output Total 1800 1900 Balance 470 -378 250 Weight 72.4 kg 74.3 kg Weight/Height Weight 74.3 kg Height 5 ft 6 in General appearance: PRESENT: mild distress, obese Exam: Chronically critically ill-appearing 84-year-old female who is unresponsive. Tracheostomy noted. Eye exam: PRESENT: conjunctival injection, conjunctiva pink, PERRLA. ABSENT: nystagmus, scleral icterus Ear exam: PRESENT: normal external ear exam Mouth exam: PRESENT: dry mucosa Teeth exam: PRESENT: edentulous Throat exam: ABSENT: post pharyngeal erythema Neck exam: PRESENT: tracheostomy - Clean without any bleeding or discharge. ABSENT: carotid bruit, JVD, lymphadenopathy, thyromegaly Respiratory exam: PRESENT: accessory muscle use, rhonchi, tachypnea. ABSENT: unlabored Cardiovascular exam: PRESENT: RRR, +S1, +S2, tachycardia Pulses: PRESENT: other - AKA. ABSENT: normal dorsalis pedis pul Vascular exam: ABSENT: normal capillary refill, pallor GI/Abdominal exam: PRESENT: normal bowel sounds, soft, other - PEG tube site clean dry and intact with integrity the tube system. No loosening of the b alloon. ABSENT: ascites, distended, guarding, mass, organolmegaly, rebound, tenderness Rectal exam: PRESENT: deferred Gentrourinary exam: PRESENT: indwelling catheter Musculoskeletal exam: PRESENT: deformity - Post AKA right Neurological exam: PRESENT: altered, other - Patient is unresponsive to noxious stimulus. Skin exam: PRESENT: other - Sacral decubiti noted by nursing.. ABSENT: erythema Tubes/Lines: PRESENT: Other - Tracheostomy, peripheral IVs, Palacios Laboratory/Radiographs Laboratory Results: 03/11/20 05:07 03/12/20 15:00 03/12/20 03/12/20 15:00 15:25 Carbonic Acid 0.80 L HCO3/H2CO3 Ratio 17:1 ABG pH 7.35 ABG pCO2 26.6 L ABG pO2 98.9 ABG HCO3 14.2 L ABG O2 Saturation 97.3 ABG Base Excess -10.1 FiO2 50% Sodium 158.1 H Potassium 3.9 Chloride 131 H Carbon Dioxide 16 L Anion Gap 11 BUN 85 H Creatinine 1.77 H Est GFR ( Amer) 33 L Glucose 416 H* Calcium 10.1 Phosphorus 3.6 Magnesium 3.1 H Total Bilirubin 0.4 AST 154 H Alkaline Phosphatase 127 H C-Reactive Protein 46.8 H Total Protein 7.2 Albumin 3.4 L 03/09/20 21:58 Blood Blood Culture (PCR) - Final Staphylococcus Species 03/09/20 21:58 Blood Blood Culture - Final Staphylococcus Epidermidis 03/09/20 19:50 Troponin I 1.020 Impressions: Chest X-Ray 03/09/20 18:46 IMPRESSION: Low lung volumes with nonspecific perihilar and infrahilar volume loss with trace left pleural effusion. Overall the appearance is stable. Chest CT 03/10/20 00:00 IMPRESSION: There are bilateral airspace opacities with bilateral effusions, left greater than right. These may reflect developing infection. The main pulmonary artery is enlarged, which can be seen with pulmonary artery hypertension. All labs, radiographs, diagnostic studies and EKGs were personally reviewed: Yes In addition, reports of radiographic and diagnostic studies were read: Yes Critical Time Critical Time (minutes): 70 -: The care of a critically ill patient is dynamic. This note represents a static moment in the admission process. Orders and treatments may be given simultan eously and urgently, and time is not call center support representative of the treatment process. This patient requires Critical Care secondary to life threatening organ or limb dysfunction. Without Critical Care services, the patient is at risk for increased mortality and morbidity.
[2020-03-12] MEDS ORDERED: VANCOMYCIN HCL 750 MG in DEXTROSE 5%-WATER 250 ML IV SCH (18:00)
--- NOTE | 2020-03-12 18:00 | PDOC PROGRESS REPORT ---
Subjective Progress Note for:: 03/12/20 Subjective:: Patient with tachycardia virtually unresponsive, she is hospice appropriate, because she is a full code and the fact that she is requiring more acute care that can be provided in IMCU floor, ICU consultation is requested. Patient with multiple hospital admission for sepsis related condition, colonization with MRSA, VRE ESBL E-coli , patient ought to be comfort care, I have discussed multiple times with family previously about comfort care, the Patient kept pus seth for aggressive care with multiple transfer to different hospitals. Reason For Visit: SEPSIS,SEVERE ANEMIA,MULTIPLE CO-MORBID CONDTIONS Physical Exam Vital Signs: Temp Pulse Resp BP Pulse Ox 102.4 F H 129 H 32 H 139/74 H 100 03/12/20 12:27 03/12/20 14:08 03/12/20 14:08 03/12/20 12:27 03/12/20 16:39 Intake & Output 03/11/20 03/12/20 03/13/20 06:59 06:59 06:59 Intake Total 2270 1522 1252 Output Total 1800 1900 Balance 470 -378 1252 Weight 72.4 kg 74.3 kg Eye exam: PRESENT: PERRLA Respiratory exam: PRESENT: rhonchi Cardiovascular exam: PRESENT: +S1, +S2, tachycardia GI/Abdominal exam: PRESENT: soft Results Laboratory Results: 03/11/20 05:07 03/12/20 15:00 03/12/20 03/12/20 03/12/20 15:00 15:00 15:00 Carbonic Acid HCO3/H2CO3 Ratio ABG pH ABG pCO2 ABG pO2 ABG HCO3 ABG O2 Saturation ABG Base Excess FiO2 Sodium 158.1 H Potassium 3.9 Chloride 131 H Carbon Dioxide 16 L Anion Gap 11 BUN 85 H Creatinine 1.77 H Est GFR ( Amer) 33 L Glucose 416 H* Lactic Acid 2.1 Calcium 10.1 Phosphorus 3.6 Magnesium 3.1 H Total Bilirubin 0.4 AST 154 H Alkaline Phosphatase 127 H Ammonia 32.9 C-Reactive Protein 46.8 H Total Protein 7.2 Albumin 3.4 L 03/12/20 15:25 Carbonic Acid 0.80 L HCO3/H2CO3 Ratio 17:1 ABG pH 7.35 ABG pCO2 26.6 L ABG pO2 98.9 ABG HCO3 14.2 L ABG O2 Saturation 97.3 ABG Base Excess -10.1 FiO2 50% Sodium Potassium Chloride Carbon Dioxide Anion Gap BUN Creatinine Est GFR ( Amer) Glucose Lactic Acid Calcium Phosphorus Magnesium Total Bilirubin AST Alkaline Phosphatase Ammonia C-Reactive Protein Total Protein Albumin 03/09/20 21:58 Blood Blood Culture (PCR) - Final Staphylococcus Species 03/09/20 21:58 Blood Blood Culture - Final Staphylococcus Epidermidis 03/09/20 19:50 Troponin I 1.020 Impressions: Chest X-Ray 03/09/20 18:46 IMPRESSION: Low lung volumes with nonspecific perihilar and infrahilar volume loss with trace left pleural effusion. Overall the appearance is stable. Chest CT 03/10/20 00:00 IMPRESSION: There are bilateral airspace opacities with bilateral effusions, left greater than right. These may reflect developing infection. The main pulmonary artery is enlarged, which can be seen with pulmonary artery hypertension. Assessment & Plan - Diagnosis (1) Acute and chronic respiratory failure, unspecified whether with hypoxia or hypercapnia Qualifiers: Respiratory failure complication: hypoxia Qualified Code(s): J96.21 - Acute and chronic respiratory failure with hypoxia Is this a current diagnosis for this admission?: Yes Plan: Continue vent support (2) Pneumonia Qualifiers: Pneumonia type: due to unspecified organism Laterality: bilateral Lung location: lower lobe of lung Qualified Code(s): J18.9 - Pneumonia, unspecified organism Is this a current diagnosis for this admission?: Yes Plan: Continue present IV antibiotic (3) Iron deficiency anemia Qualifiers: Iron deficiency anemia type: chronic blood loss Qualified Code(s): D50.0 - Iron deficiency anemia secondary to blood loss (chronic) Is this a current diagnosis for this admission?: Yes (4) Type 2 diabetes mellitus Qualifiers: Diabetes mellitus detention insulin use: with detention use Diabetes mellitus complication status: with neurologic complications Diabetes mellitus complication detail: with polyneuropathy Qualified Code(s): E11.42 - Type 2 diabetes mellitus with diabetic polyneuropathy Is this a current diagnosis for this admission?: Yes - Time Time Spent with patient: 35 or more minutes Level of Care: IMCU Medications reviewed and adjusted accordingly: Yes
--- NOTE | 2020-03-12 18:38 | RADIOLOGY REPORT (SQ) ---
EXAM DESCRIPTION: CT HEAD WITHOUT IMAGES COMPLETED DATE/TIME: 03/12/2020 6:25 pm REASON FOR STUDY: coma COMPARISON: 03/08/2018 TECHNIQUE: Axial images acquired through the brain without intravenous contrast. Images reviewed wi th bone, brain and subdural windows. Additional sagittal and coronal reconstructions were generated. Images stored on PACS. All CT scanners at this facility use dose modulation, iterative reconstruction, and/or weight based d osing when appropriate to reduce radiation dose to as low as reasonably achievable (ALARA). [facility]: Dose Right [facility]: CareDose [facility]: Dose Right [facility]: Teradose 4D [facility]: [employer] RADIATION DOSE: CT Rad equipment meets quality standard of care and radiation dose reduction techniq ues were employed. CTDIvol: 53.2 mGy. DLP: 991 mGy-cm. mGy. LIMITATIONS: None. FINDINGS: VENTRICLES: Prominent ventricles secondary to involutional atrophy. CEREBRUM: Cortical atrophy. No masses. No hemorrhage. No midline shift. No evidence for acute inf arction. Areas of low density in the white matter most likely chronic small vessel ischemic changes. CEREBELLUM: No masses. Posterior fossa arachnoid cyst. No hemorrhage. No alteration of density. N o evidence for acute infarction. EXTRAAXIAL SPACES: No fluid collections. No masses. ORBITS AND GLOBE: No intra- or extraconal masses. Normal contour of globe without masses. CALVARIUM: No fracture. PARANASAL SINUSES: No fluid or mucosal thickening. SOFT TISSUES: No mass or hematoma. OTHER: No other significant finding. IMPRESSION: MICROVASCULAR ISCHEMIA AND GENERALIZED ATROPHY. POSTERIOR FOSSA ARACHNOID CYST. NO ACU TE IMAGING FINDINGS IN THE BRAIN EVIDENCE OF ACUTE STROKE: NO. COMMENT: Quality ID # [id number]: Final reports with documentation of one or more dose reduction techniques (e.g., Automated exposure control, adjustment of the mA and/or kV according to patient size, use of iterative reconstruction technique) TECHNICAL DOCUMENTATION: JOB ID: [id number] 2010 [employer]- All Rights Reserved Reading location - IP/workstation name: [email or web address]
--- NOTE | 2020-03-12 18:50 | RADIOLOGY REPORT (SQ) ---
EXAM DESCRIPTION: CT ABD/PELVIS NO ORAL OR IV IMAGES COMPLETED DATE/TIME: 03/12/2020 6:25 pm REASON FOR STUDY: sepsis COMPARISON: 06/15/2019 TECHNIQUE: CT scan of the abdomen and pelvis performed without intravenous or oral contrast. Images reviewed with lung, soft tissue, and bone windows. Reconstructed coronal and sagittal MPR images revi ewed. All images stored on PACS. All CT scanners at this facility use dose modulation, iterative reconstruction, and/or weight based d osing when appropriate to reduce radiation dose to as low as reasonably achievable (ALARA). [facility]: Dose Right [facility]: CareDose [facility]: Dose Right [facility]: Teradose 4D [facility]: Smart Technologies RADIATION DOSE: CT Rad equipment meets quality standard of care and radiation dose reduction techniq ues were employed. CTDIvol: 14.4 mGy. DLP: 878 mGy-cm.mGy. LIMITATIONS: None. FINDINGS: LOWER CHEST: Small to moderate bilateral pleural effusions with associated atelectatic anastacio nges in the lower lobes. NON-CONTRASTED LIVER, SPLEEN, ADRENALS: The liver is unremarkable. The spleen is somewhat lobulated. No change. No adrenal mass. PANCREAS: No masses. No peripancreatic inflammatory changes. GALLBLADDER: No identified stones by CT criteria. No inflammatory changes to suggest cholecystitis. RIGHT KIDNEY AND URETER: Atrophic changes are present. Nonobstructing intrarenal calculus. No hyd ronephrosis or hydroureter. LEFT KIDNEY AND URETER: No suspicious masses. Assessment limited by lack of IV contrast. No signifi cant calcifications. No hydronephrosis or hydroureter. AORTA AND RETROPERITONEUM: No aneurysm. Atherosclerosis including significant atherosclerosis at the origin of the SMA and in the origins of the renal arteries. BOWEL AND PERITONEAL CAVITY: There is a large amount of stool in the rectum. No obvious bowel mass. APPENDIX: Not identified. PELVIS, BLADDER, AND ABDOMINAL WALL:Evaluation the pelvis is slightly limited by artifact from left h ip arthroplasty. No obvious pelvic mass. A catheter is present in the urinary bladder. BONES: No significant findings. OTHER: No other significant finding. IMPRESSION: 1. Bilateral pleural effusions with associated atelectatic changes in the lower lobes. 2. Unusual splenic configuration is stable. 3. Right renal atrophy. Nonobstructing right renal calculus. 4. Atherosclerosis. 5. Large amount of stool in the rectum, cannot exclude fecal impaction. COMMENT: Quality ID # [id number]: Final reports with documentation of one or more dose reduction techniques (e.g., Automated exposure control, adjustment of the mA and/or kV according to patient size, use of iterative reconstruction technique) TECHNICAL DOCUMENTATION: JOB ID: [id number] 2010 [employer]- All Rights Reserved Reading location - IP/workstation name: [email or web address]
[2020-03-12 20:41] LABS: HEMATOCRIT 25.7 % (36.0-47.0); MEAN CORPUSCULAR HEMOGLOBIN 27.9 pg (27.0-33.4); MEAN CORPUSCULAR HGB CONC 30.1 g/dL (32.0-36.0); PLATELET COUNT 192 10^3/uL (150-450); RED BLOOD COUNT 2.78 10^6/uL (3.72-5.28); WHITE BLOOD COUNT 15.3 10^3/uL (4.0-10.5)
[2020-03-12 21:07] LABS: MEAN CORPUSCULAR VOLUME 93 fl (80-97)
[2020-03-12 21:09] LABS: HEMOGLOBIN 7.7 g/dL (12.0-15.5)
[2020-03-12 21:31] LABS: ANION GAP 10 (5-19); BLOOD UREA NITROGEN 86 mg/dL (7-20); CALCIUM 10.1 mg/dL (8.4-10.2); CARBON DIOXIDE 16 mmol/L (22-30); CHLORIDE 132 mmol/L (98-107); GLUCOSE 336 mg/dL (75-110); PHOSPHORUS 3.4 mg/dL (2.5-4.5); POTASSIUM 3.3 mmol/L (3.6-5.0)
[2020-03-12] MEDS ORDERED: VANCOMYCIN HCL 750 MG in DEXTROSE 5%-WATER 250 ML IV ONE (22:30)
[2020-03-13] MEDS: 1/2 NORMAL SALINE 1,000 ML IV PRN (02:52)
[2020-03-13] MEDS: NORMAL SALINE 100 ML with INSULIN REGULAR, HUMAN 100 UNIT IV PRN ×2 (04:30)
[2020-03-13] MEDS: MEROPENEM 1 GM in NORMAL SALINE 50 ML IV SCH (06:38)
[2020-03-13 06:59] LABS: ARTERIAL BLOOD BASE EXCESS -8.5 mmol/L; ARTERIAL BLOOD H2CO3 0.81 mmol/L (1.05-1.35); ARTERIAL BLOOD HCO3 15.5 mmol/L (20-24); ARTERIAL BLOOD O2 SATURATION 97.3 % (94-98); ARTERIAL BLOOD PCO2 26.8 mmHg (35-45); ARTERIAL BLOOD PH 7.38 (7.35-7.45); ARTERIAL BLOOD PO2 95.3 mmHg (80-100); ARTERIAL BLOOD TOTAL CO2 16.4 mmol/L (21-25)
[2020-03-13 07:01] LABS: ARTERIAL BLOOD FIO2 40%
[2020-03-13 08:19] LABS: HEMATOCRIT 24.9 % (36.0-47.0); MEAN CORPUSCULAR HEMOGLOBIN 27.1 pg (27.0-33.4); MEAN CORPUSCULAR HGB CONC 30.8 g/dL (32.0-36.0); PLATELET COUNT 242 10^3/uL (150-450); RED BLOOD COUNT 2.83 10^6/uL (3.72-5.28); RED CELL DISTRIBUTION WIDTH 18.7 % (11.5-14.0); WHITE BLOOD COUNT 21.7 10^3/uL (4.0-10.5)
--- NOTE | 2020-03-13 08:36 | RADIOLOGY REPORT (SQ) ---
EXAM DESCRIPTION: CHEST SINGLE VIEW IMAGES COMPLETED DATE/TIME: 03/13/2020 6:30 am REASON FOR STUDY: respiratory failure COMPARISON: 03/09/2020. EXAM PARAMETERS: NUMBER OF VIEWS: One view. TECHNIQUE: Single frontal radiographic view of the chest acquired. RADIATION DOSE: NA LIMITATIONS: None. FINDINGS: LUNGS AND PLEURA: Increasing opacity in the left lung base with left pleural effusion. MEDIASTINUM AND HILAR STRUCTURES: No masses. Contour normal. HEART AND VASCULAR STRUCTURES: Mild cardiomegaly. Mild vascular prominence. BONES: No acute findings. HARDWARE: Tracheostomy tube. OTHER: No other significant finding. IMPRESSION: INCREASING LEFT PLEURAL EFFUSION WITH LEFT BASILAR ATELECTASIS/ INFILTRATE. TECHNICAL DOCUMENTATION: JOB ID: [id number] 2010 [employer]- All Rights Reserved Reading location - IP/workstation name: [email or web address]
[2020-03-13 08:40] LABS: MEAN CORPUSCULAR VOLUME 88 fl (80-97)
[2020-03-13 08:41] LABS: HEMOGLOBIN 7.7 g/dL (12.0-15.5)
[2020-03-13 08:43] LABS: ABSOLUTE MONOCYTES # (MANUAL) 1.7 10^3/uL (0.1-1.4); BASOPHILS % (MANUAL) 0 % (0-2); EOSINOPHILS % (MANUAL) 0 % (0-6); LYMPHOCYTES % (MANUAL) 9 % (13-45); MONOCYTES % (MANUAL) 8 % (3-13); NUCLEATED RED BLOOD CELLS 3 /100 WBC (0); SEGMENTED NEUTROPHILS % (MAN) 83 % (42-78); TOTAL CELLS COUNTED 100
[2020-03-13 08:44] LABS: ALBUMIN 2.8 g/dL (3.5-5.0); ALKALINE PHOSPHATASE 89 U/L (38-126); ANION GAP 7 (5-19); ANISOCYTOSIS 1+; ASPARTATE AMINO TRANSFERASE 135 U/L (14-36); BILIRUBIN,DIRECT 0.1 mg/dL (0.0-0.4); BILIRUBIN,TOTAL 0.5 mg/dL (0.2-1.3); BLOOD UREA NITROGEN 79 mg/dL (7-20); CALCIUM 9.6 mg/dL (8.4-10.2); CARBON DIOXIDE 16 mmol/L (22-30); CHLORIDE 133 mmol/L (98-107); OVALOCYTES SLIGHT; PHOSPHORUS 2.7 mg/dL (2.5-4.5); POLYCHROMASIA SLIGHT; TARGET CELLS SLIGHT; TOTAL PROTEIN 6.4 g/dL (6.3-8.2)
[2020-03-13 08:45] LABS: PLATELET COMMENT ADEQUATE
[2020-03-13 08:55] LABS: GLUCOSE 58 mg/dL (75-110)
[2020-03-13 10:07] LABS: POTASSIUM 2.5 mmol/L (3.6-5.0)
[2020-03-13] MEDS: LACTOBACILLUS ACIDOPHILUS 250 MG TAB PO SCH (11:39)
[2020-03-13] MEDS: ASPIRIN 81 MG TABLET, ENT COATED PO SCH (11:39)
[2020-03-13] MEDS: ASCORBIC ACID 500 MG TABLET PO SCH (11:39)
[2020-03-13 11:55] VITALS: BP 147/86
[2020-03-13] MEDS ORDERED: PANTOPRAZOLE SODIUM 40 MG VIAL IV SCH (12:00)
[2020-03-13] MEDS ORDERED: POTASSIUM CHLORIDE 20 MEQ/50 ML RTU IV SCH (12:00)
[2020-03-13] MEDS: NYSTATIN TOPICAL POWDER 15 GM TP SCH (12:20)
[2020-03-13] MEDS: SILVER SULFADIAZINE 1% CREAM 50 GM TP SCH (12:20)
--- NOTE | 2020-03-13 13:26 | PDOC CRITICAL CARE PROG REPORT ---
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 She had HHNK and has had improvement in her glucose as well as her sodium levels with current treatment. Additionally her creatinine has improved. Microbiology shows staph in the blood and Pseudomonas in the urine. Patient had been placed on pressure support because of improvement and to monitor her breathing status. She had been improving and was slightly more responsive compared to yesterday. Patient was being cleaned when nursing noted that she was unresponsive. She had no respirations. And she was pulseless with PEA on monitor. Her right pupil was nonreactive her left fixed and dilated. We immediately attempted to suction which was not revealing for any mucus obstruction. Bag ventilation was then provided to assure clearance of airway. There were breath sounds. She was made DNR by son yesterday but we attempted to revive given her improvement. Critical care ultrasound of the heart showed activity only at the valvular level and appeared to be thrombus in the right ventricle although the windows are difficult to evaluate with patient's anatomy. Despite ventilation patient was hypoxic and showed no movement. There was no spontaneous respiration and she was comatose. Review of systems relevant to events:: Patient examined in the morning while on ventilator and appeared to be improving. There was subtle improvement in mentation with stimulus compared to yesterday. Reason for ICU Addmission:: Coma, Sepsis - Medications: Medications reviewed and adjusted accordingly: Yes Vasopressors:: None Sedation:: None Physical Exam Vital Signs: Temp Pulse Resp BP Pulse Ox 96.2 F L 93 24 H 147/86 H 99 03/13/20 12:00 03/13/20 12:00 03/13/20 12:00 03/13/20 12:00 03/13/20 12:00 Intake & Output 03/12/20 03/13/20 03/14/20 06:59 06:59 06:59 Intake Total 1522 2385 50 Output Total 1900 1110 125 Balance -378 1275 -75 Weight 74.3 kg 71.9 kg Weight/Height Weight 71.9 kg Height 5 ft 6 in Exam: Chronically ill-appearing 84-year-old female no acute distress on exam 1 during her PEA event she was unresponsive fixed dilated absence of respiration. No spontaneous movement or respiration Head exam: PRESENT: atraumatic, normocephalic Eye exam: PRESENT: other - Significant cataract formation. Left pupil fixed dilated right midrange unreactive significant cataract. Ear exam: ABSENT: bleeding Mouth exam: PRESENT: dry mucosa Teeth exam: PRESENT: edentulous Neck exam: PRESENT: tracheostomy, other - No obstruction of the trachea. Balloon intact Respiratory exam: PRESENT: crackles, unlabored - On initial exam, other - Poor lung sounds during PEA Cardiovascular exam: PRESENT: bradycardia, irregular rhythm, other - PEA. On initial exam regular rate and rhythm with inability to auscultate any murmur Pulses: PRESENT: normal dorsalis pedis pul - In left foot. 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 ABSENT: ascites, distended, tenderness Rectal exam: PRESENT: other - Stool collection system in Gentrourinary exam: PRESENT: indwelling catheter Extremities exam: ABSENT: pedal edema Musculoskeletal exam: PRESENT: deformity - Right AKA Neurological exam: PRESENT: altered, other - Comatose on second exam unresponsive Skin exam: PRESENT: mottled Tubes/Lines: PRESENT: Peg Tube Laboratory/Radiographs Laboratory Results: 03/13/20 08:08 03/13/20 08:08 03/12/20 03/12/20 03/12/20 15:00 15:00 15:00 WBC RBC Hgb Hct MCV MCH MCHC RDW Plt Count Seg Neutrophils % Carbonic Acid HCO3/H2CO3 Ratio ABG pH ABG pCO2 ABG pO2 ABG HCO3 ABG O2 Saturation ABG Base Excess FiO2 Sodium 158.1 H Potassium 3.9 Chloride 131 H Carbon Dioxide 16 L Anion Gap 11 BUN 85 H Creatinine 1.77 H Est GFR ( Amer) 33 L Glucose 416 H* Lactic Acid 2.1 Calcium 10.1 Phosphorus 3.6 Magnesium 3.1 H Total Bilirubin 0.4 AST 154 H Alkaline Phosphatase 127 H Ammonia 32.9 C-Reactive Protein 46.8 H Total Protein 7.2 Albumin 3.4 L TSH 03/12/20 03/12/20 03/12/20 15:25 19:18 19:18 WBC 15.3 H RBC 2.78 L Hgb 7.7 L Hct 25.7 L MCV 93 D MCH 27.9 MCHC 30.1 L RDW 19.0 H Plt Count 192 Seg Neutrophils % Carbonic Acid 0.80 L HCO3/H2CO3 Ratio 17:1 ABG pH 7.35 ABG pCO2 26.6 L ABG pO2 98.9 ABG HCO3 14.2 L ABG O2 Saturation 97.3 ABG Base Excess -10.1 FiO2 50% Sodium Potassium Chloride Carbon Dioxide Anion Gap BUN Creatinine Est GFR ( Amer) Glucose Lactic Acid 1.7 Calcium Phosphorus Magnesium Total Bilirubin AST Alkaline Phosphatase Ammonia C-Reactive Protein Total Protein Albumin TSH 03/12/20 03/12/20 03/13/20 20:55 22:15 01:01 WBC RBC Hgb Hct MCV MCH MCHC RDW Plt Count Seg Neutrophils % Carbonic Acid HCO3/H2CO3 Ratio ABG pH ABG pCO2 ABG pO2 ABG HCO3 ABG O2 Saturation ABG Base Excess FiO2 Sodium 158.1 H Potassium 3.3 L Chloride 132 H Carbon Dioxide 16 L Anion Gap 10 BUN 86 H Creatinine 1.63 H Est GFR ( Amer) 36 L Glucose 336 H Lactic Acid 1.6 1.5 Calcium 10.1 Phosphorus 3.4 Magnesium 3.0 H Total Bilirubin AST Alkaline Phosphatase Ammonia C-Reactive Protein Total Protein Albumin [facility] 03/13/20 03/13/20 03/13/20 06:47 08:08 08:08 WBC 21.7 H RBC 2.83 L Hgb 7.7 L Hct 24.9 L MCV 88 D MCH 27.1 MCHC 30.8 L RDW 18.7 H Plt Count 242 Seg Neutrophils % Not Reportable Carbonic Acid 0.81 L HCO3/H2CO3 Ratio 19:1 ABG pH 7.38 ABG pCO2 26.8 L ABG pO2 95.3 ABG HCO3 15.5 L ABG O2 Saturation 97.3 ABG Base Excess -8.5 FiO2 40% Sodium Potassium Chloride Carbon Dioxide Anion Gap BUN Creatinine Est GFR ( Amer) Glucose Lactic Acid Calcium Phosphorus Magnesium Total Bilirubin AST Alkaline Phosphatase Ammonia C-Reactive Protein Total Protein Albumin TSH 0.89 03/13/20 03/13/20 03/13/20 08:08 08:08 08:08 WBC RBC Hgb Hct MCV MCH MCHC RDW Plt Count Seg Neutrophils % Carbonic Acid HCO3/H2CO3 Ratio ABG pH ABG pCO2 ABG pO2 ABG HCO3 ABG O2 Saturation ABG Base Excess FiO2 Sodium 155.7 H Potassium 2.5 L* Chloride 133 H Carbon Dioxide 16 L Anion Gap 7 BUN 79 H Creatinine 1.44 H Est GFR ( Amer) 42 L Glucose 58 L Lactic Acid 1.1 Calcium 9.6 Phosphorus 2.7 Magnesium Total Bilirubin 0.5 AST 135 H Alkaline Phosphatase 89 Ammonia 12.0 C-Reactive Protein Total Protein 6.4 Albumin 2.8 L TSH 03/09/20 21:58 Blood Blood Culture (PCR) - Final Staphylococcus Species 03/09/20 21:58 Blood Blood Culture - Final Staphylococcus Epidermidis 03/09/20 19:50 Troponin I 1.020 Impressions: Chest CT 03/10/20 00:00 IMPRESSION: There are bilateral airspace opacities with bilateral effusions, left greater than right. These may reflect developing infection. The main pulmonary artery is enlarged, which can be seen with pulmonary artery hypertension. Abdomen/Pelvis CT 03/12/20 00:00 IMPRESSION: 1. Bilateral pleural effusions with associated atelectatic changes in the lower lobes. 2. Unusual splenic configuration is stable. 3. Right renal atrophy. Nonobstructing right renal calculus. 4. Atherosclerosis. 5. Large amount of stool in the rectum, cannot exclude fecal impaction. Head CT 03/12/20 00:00 IMPRESSION: MICROVASCULAR ISCHEMIA AND GENERALIZED ATROPHY. POSTERIOR FOSSA ARACHNOID CYST. NO ACUTE IMAGING FINDINGS IN THE BRAIN EVIDENCE OF ACUTE STROKE: NO. Chest X-Ray 03/13/20 06:00 IMPRESSION: INCREASING LEFT PLEURAL EFFUSION WITH LEFT BASILAR ATELECTASIS/ INFILTRATE. All labs, radiographs, diagnostic studies and EKGs were personally reviewed: Yes In addition, reports of radiographic and diagnostic studies were read: Yes Assessment and Plan - Diagnosis (2) Pulmonary embolism Qualifiers: Pulmonary embolism type: other Is this a current diagnosis for this admission?: Yes Plan: With probable thrombus in transit (3) Coma scale, best verbal response, none, 24 hours or more after hospital admission Is this a current diagnosis for this admission?: Yes (4) Acute kidney injury (NILO) with acute tubular necrosis (ATN) Is this a current diagnosis for this admission?: Yes (5) Dehydration Is this a current diagnosis for this admission?: Yes (6) HHNC (hyperglycemic hyperosmolar nonketotic coma) Is this a current diagnosis for this admission?: Yes (8) Complicated UTI (urinary tract infection) Is this a current diagnosis for this admission?: Yes (9) Blood loss anemia Is this a current diagnosis for this admission?: Yes (10) Metabolic acidosis with normal anion gap and bicarbonate losses Is this a current diagnosis for this admission?: Yes (11) Multiple comorbid conditions Is this a current diagnosis for this admission?: Yes (12) Ventilator-acquired pneumonia Is this a current diagnosis for this admission?: Yes (13) Chronic indwelling Palacios catheter Is this a current diagnosis for this admission?: Yes (14) Basal cell carcinoma of skin of face Qualifiers: Basal cell carcinoma face location: other part of face Qualified Code(s): C44.319 - Basal cell carcinoma of skin of other parts of face Is this a current diagnosis for this admission?: Yes (15) Basal cell carcinoma of skin of nose Is this a current diagnosis for this admission?: Yes Plan Summary: Patient had been improving but given the sudden turn of events and findings this is most likely represents massive PE. She is not a candidate for TPA given her GI bleed and her multiple comorbid status. Patient has been made DNR/DNI and there is no therapy to reverse this terminal state. She is pulseless and despite providing bag ventilation does not improve her overall situation. I quickly called the son Luis A to notify him of the patient's condition and passing. They are aware and are in route. Have assured he and his family of this entity of her passing and her comfort. Patient had PEA and bradycardic rates without pulse for short period time but did not have recoverable respirations. She was declared officially at 1305 Critical Time Critical Time (minutes): 70 - includes time with family Level of Care: ICU -: 1. The care of a critical patient is a dynamic process. This note is a sales representative printing supplies synopsis but static in nature. The timeframe for treatments given in order is not necessarily the actual time these treatments may have been done. 2. This patient requires critical care secondary to ongoing requirements for therapy not offered or safe outside the critical care environment. Transfer to a lower level of care will result in altered life or limb morbidity and morta lity. 3. Multidisciplinary rounds completed. 4. ABCDE bundle addressed.
--- NOTE | 2020-03-13 13:34 | Death Summary ---
Summary Date : 03/13/20 Time of :: 13:05 Autopsy: No Resuscitation Status: Do Not Resuscitate Primary Care Provider: Fermin Consulting Provider: Critical Care-Rashid - Final Diagnosis (1) Idiopathic cardiac arrest Is this a current diagnosis for this admission?: Yes (2) Pulmonary embolism Is this a current diagnosis for this admission?: Yes (3) Coma scale, best verbal response, none, 24 hours or more after hospital admission Is this a current diagnosis for this admission?: Yes (4) Acute kidney injury (NILO) with acute tubular necrosis (ATN) Is this a current diagnosis for this admission?: Yes (5) Dehydration Is this a current diagnosis for this admission?: Yes (6) HHNC (hyperglycemic hyperosmolar nonketotic coma) Is this a current diagnosis for this admission?: Yes (7) Chronic respiratory failure requiring continuous mechanical ventilation through tracheostomy Is this a current diagnosis for this admission?: Yes (8) Complicated UTI (urinary tract infection) Is this a current diagnosis for this admission?: Yes (9) Blood loss anemia Is this a current diagnosis for this admission?: Yes (10) Metabolic acidosis with normal anion gap and bicarbonate losses Is this a current diagnosis for this admission?: Yes (11) Multiple comorbid conditions Is this a current diagnosis for this admission?: Yes (12) Ventilator-acquired pneumonia Is this a current diagnosis for this admission?: Yes (13) Chronic indwelling Palacios catheter Is this a current diagnosis for this admission?: Yes (14) Basal cell carcinoma of skin of face Is this a current diagnosis for this admission?: Yes (15) Basal cell carcinoma of skin of nose Is this a current diagnosis for this admission?: Yes Hospital Course:: Patient was admitted March 10 with chronic respiratory failure with change in sensorium and encephalopathy. Given the fact that she is chronically ventilated she was sent to IM and was noted to have hyperglycemia with hyponatremia. Critical care was consulted because of worsening mental status and evidence of sepsis. She was found to have Pseudomonas in her urine and she was transitioned to an anti-ESBL antibiotic. She is placed on an insulin drip and on half-normal saline. She was convalescing well and was able to be placed on pressure support within 24 hours. Her glucose had improved and she was transitioned off insulin drip. Her sodium levels were resolving in appropriate fashion. Her mental status had some improvement and she appeared to be moving more and responsive. Wake up patient was undergoing a typical ICU bathing with nurse and ICU clinical education assistant. Prior to that she was breathing well and plans were in place to potentially transfer her because of her improving condition. Nursing noted during the bathing process that her condition had changed. She had stopped spontaneously breathing and had no pulse. She had no reactivity and her left pupil appeared dilated. Because patient had been off anticoagulation and concern for GI bleeding my concern was that she might of had a PE. Ultrasound of the heart showed what appeared to be a clot in transit however windows were difficult to obtain. She remained pulseless and despite attempts at bagging the patient to improve ventilation she was unable to be resuscitated. She had been made a DNR by her son so no attempt at chemical conversion or CPR was done due to these conditions and stipulations. Furthermore CPR would be ill advised with this large PE as this was a terminal event. Family was notified of the patient's condition and situation. She was declared at 1305
[2020-03-13] MEDS ORDERED: VANCOMYCIN HCL 750 MG in DEXTROSE 5%-WATER 250 ML IV SCH (22:00)
== END 2020-03-13 15:16 | disposition left against medical advice (07) | DRG 871 ==
LOC: ER 18:37 → UNDOADMIN 23:23 → EH 23:23 → 3N 03-10 05:40 → ICU 03-12 18:29
PROVIDERS: ADMIT Internal Medicine Critical Care Medicine; ATTEND Internal Medicine Critical Care Medicine
PROC: 5A1945Z Respiratory Ventilation, 24-96 Consecutive Hours (ICD-10-PCS; principal; 2020-03-09)
PROC: 30233N1 Transfusion of Nonautologous Red Blood Cells into Peripheral Vein, Percutaneous Approach (ICD-10-PCS; 2020-03-09)
DX: A41.9 Sepsis, unspecified organism (principal); L89.154 Pressure ulcer of sacral region, stage 4; E11.01 Type 2 diabetes mellitus with hyperosmolarity with coma; N17.0 Acute kidney failure with tubular necrosis; R40.2214 Coma scale, best verbal response, none, 24 hours or more after hospital admission; I26.99 Other pulmonary embolism without acute cor pulmonale; J96.21 Acute and chronic respiratory failure with hypoxia; T83.511A Infection and inflammatory reaction due to indwelling urethral catheter, initial encounter; Z99.11 Dependence on respirator [ventilator] status; E87.2 Acidosis; J95.851 Ventilator associated pneumonia; N39.0 Urinary tract infection, site not specified; J44.0 Chronic obstructive pulmonary disease with (acute) lower respiratory infection; Z66 Do not resuscitate; I46.9 Cardiac arrest, cause unspecified; E78.00 Pure hypercholesterolemia, unspecified; E11.51 Type 2 diabetes mellitus with diabetic peripheral angiopathy without gangrene; F03.90 Unspecified dementia, unspecified severity, without behavioral disturbance, psychotic disturbance, mood disturbance, and anxiety; B96.5 Pseudomonas (aeruginosa) (mallei) (pseudomallei) as the cause of diseases classified elsewhere; E86.0 Dehydration; Z96.641 Presence of right artificial hip joint; C44.319 Basal cell carcinoma of skin of other parts of face; Y84.8 Other medical procedures as the cause of abnormal reaction of the patient, or of later complication, without mention of misadventure at the time of the procedure; N31.9 Neuromuscular dysfunction of bladder, unspecified; D50.0 Iron deficiency anemia secondary to blood loss (chronic); E78.5 Hyperlipidemia, unspecified; B96.20 Unspecified Escherichia coli [E. coli] as the cause of diseases classified elsewhere; E11.42 Type 2 diabetes mellitus with diabetic polyneuropathy; I10 Essential (primary) hypertension; Z74.01 Bed confinement status; Z88.3 Allergy status to other anti-infective agents; Z88.8 Allergy status to other drugs, medicaments and biological substances; Z86.718 Personal history of other venous thrombosis and embolism; Z86.14 Personal history of Methicillin resistant Staphylococcus aureus infection; Z95.5 Presence of coronary angioplasty implant and graft; Z93.1 Gastrostomy status; Z86.711 Personal history of pulmonary embolism; Z89.511 Acquired absence of right leg below knee; Z79.4 Long term (current) use of insulin; Z79.82 Long term (current) use of aspirin; Z79.899 Other long term (current) drug therapy; Z93.0 Tracheostomy status
CPT/HCPCS: 36415; 36430; 36600; 70450; 71045; 71250; 74176; 80053; 80307; 81001; 82140; 82607; 82728; 82746; 82803; 82962; 83036; 83540; 83550; 83605; 83735; 84100; 84443; 84466; 84484; 85025; 85027; 85045; 85610; 86140; 86850; 86900; 86901; 86920; 87040; 87070; 87077; 87086; 87088; 87150; 87186; 87205; 93005; 93010; 94002; 94003; 94640; 96361; 96374; 99285; 99291; C9113; J0692; J1815; J2185; J2543; J3370; J3480; J3490; J7030; J7050; J7060; J7120; J7620; P9016